=== PATIENT | female | born 1965 | race Caucasian/White ===

== ENCOUNTER 2016-12-13 13:26 | Emergency (ER) | payer MEDICARE, OTHER ==
[~2016-12-13] VITALS: Ht 167.6 cm; Wt 108.9 kg
[~2016-12-13 13:26] MED LIST: ADVIL PM CAPLE1 EACH PO; ALBUTEROL SULF8.5 GM INH; ALBUTEROL2.5 MG/3 M INH; ATIVAN1 MG PO; AZITHROMYCIN250 MG PO; BACTRIM DS TAB1 EACH PO; CLINDAMYCIN HC150 MG PO; COZAAR50 MG PO; CYMBALTA30 MG; CYMBALTA30 MG PO; CYMBALTA60 MG PO; DOXYCYCLINE HY100 MG PO; DULOXETINE HCL30 MG; GABAPENTIN300 MG PO; GUAIFENESIN-CO118 ML PO; HUMALOG100 UNIT/1 SUB-Q; HUMALOG100 UNITS/; HUMALOG100 UNITS/ SUB-Q; HUMULIN N100 UNIT/1 SQ; HYDROCODON-ACE1 EAC3 PO; IBUPROFEN600 MG PO; IPRATROPIU0.2 MG/1 M IH; LANTUS SOL100 UNIT/1 SUB-Q; LANTUS100 UNITS/ SUB-Q; LEVAQUIN750 MG PO; LEVOFLOXACIN750 MG; LORAZEPAM1 MG PO; MONTELUKAST SOD10 MG PO; MORPHINE SULFAT30 M2; MORPHINE SULFAT30 M2 PO; NORCO 5-325 TA1 EACH PO; OMEPRAZOLE40 MG PO; OXYCODONE HCL5 MG PO; PREDNISONE20 MG PO; PROAIR HFA8.5 GM INH; PROMETHAZINE HC25 M1 PO; PROVENTIL HFA6.7 GM INH; QVAR7.3 G1 INH; TESSALON PERLE100 MG PO; TIZANIDINE HCL2 M1 PO; TRAMADOL HCL50 MG; TRAMADOL HCL50 MG PO; ZOFRAN ODT4 MG SL; [UNRECOGNIZED DRUG - OTHER]
[2016-12-13] MEDS ORDERED: ATIVAN0.5 MG PO (13:38)
--- NOTE | 2016-12-13 17:19 | EKG ---
[facility] [address] [facility] [place], [place] [address] Signed Normal sinus rhythm Normal ECG When compared with ECG of 03-JAN-2016 17:15, No significant change was found Confirmed by DANIEL HILL MD ([id number]) on 12/13/2016 5:19:09 PM Electronically Signed By: DANIEL HILL MD 12/13/16 1719 PATIENT NAME: FEDERICO SALMON Electrocardiogram DATE OF : 63 PHYSICIAN: ADNIEL HILL MD REPORT #: [id number] REPORT IS CONFIDENTIAL AND NOT TO BE RELEASED WITHOUT AUTHORIZATION
[2017-03-15] MEDS ORDERED: NORCO 5-325 TA1 EACH PO (21:33)
== END 2016-12-13 17:45 | disposition home or self-care (01) ==
LOC: ED 13:26
PROC: 0T9B70Z Drainage of Bladder with Drainage Device, Via Natural or Artificial Opening (ICD-10-PCS; principal; 2016-12-13)
DX: E11.9 Type 2 diabetes mellitus without complications (principal); J45.909 Unspecified asthma, uncomplicated; Z87.01 Personal history of pneumonia (recurrent); Z90.49 Acquired absence of other specified parts of digestive tract; Z90.89 Acquired absence of other organs; Z90.710 Acquired absence of both cervix and uterus; Z79.899 Other long term (current) drug therapy; Z79.4 Long term (current) use of insulin
CPT/HCPCS: 36600; 51701; 80053; 81001; 82010; 82803; 84484; 85025; 93005; 93010; 96365; 96366; 96375; 99283; J7030

== ENCOUNTER 2017-01-13 06:50 | Day surgery (SDC) | payer MEDICARE, OTHER ==
[~2017-01-13] VITALS: Ht 167.6 cm; Wt 133.8 kg
[~2017-01-13 06:50] MED LIST changes: +ATIVAN0.5 MG PO
[2017-01-13] MEDS ORDERED: HYDROCODON-ACE1 EA11 PO (09:29)
--- NOTE | 2017-01-13 09:42 | NUR ---
01/13/17 0942 Edison Carr SAT 100, O2 DECREASED TO 6L VIA MASK.
--- NOTE | 2017-01-13 12:24 | NUR ---
LE 1018 RETURNED FROM PACU C/O L HAND PAIN 12/15. HAND ELEVATED ON PILLOW AND ICE TO HAND. VITAL SIGNS TAKEN. EATING CRACKERS. 1043 TWO NORCO 7.5/325 GIVEN FOR L HAND PAIN. 1052 C/O ITCHING ALL OVER. NEW ORDERS RECEIVED. BENADRYL 50MG PO GIVEN. 1130 UP TO BATHROOM. VOIDED. C/O L HAND PAIN 12/15. WANTING IV PAIN MEDICINE. SPOKE WITH DR AND NO NEW ORDERS. REFERRED PT TO ANESTHESIA. SPOKE WITH ANESTHESIA AND NO NEW ORDERS. SPOKE WITH PT ABOUT NO IV MEDICATIONS. PT WANTS TO GO HOME. 1205 DC INSTRUCTIONS GIVE TO PT/DAUGHTER. LEFT VIA W/C.
--- NOTE | 2017-01-15 10:52 | OR ---
[facility] [address] [place], [place] [address] Signed DATE OF PROCEDURE: 01/13/17 PREOPERATIVE DIAGNOSIS: Left ring and small trigger finger. POSTOPERATIVE DIAGNOSIS: Left ring and small trigger finger. PROCEDURE PERFORMED: Left ring and small trigger finger release. ANESTHESIA: Ruby block. SURGEON: Gabriella Echavarria MD. HOSPITAL PHARMACIST: Joseline Rizvi PA-C. Joseline was present and critical in positioning, retraction, and wound closure. TOURNIQUET TIME: 20 minutes. BRIEF HISTORY Georgiana is a 51-year-old female with significant respiratory and seizure issues. She has had previous trigger finger releases with good results. Developed locked fingers of the ring and small of the left hand, wished to proceed with operative intervention. Risks, benefits, and alternatives were discussed, and she elected to proceed. Once consent was obtained, she was taken to operating room. After adequate anesthesia, she was placed on operating table. All downside pressure points well padded. The left arm was prepped and draped in a standard sterile fashion. The ring finger was approached 1st through 1 cm incision. This was carried through skin and subcutaneous tissue. The fat and subcutaneous tissue was dissected off the flexor tendon sheath and A1 lisset was identified under loupe magnification. The A1 lisset was released and the finger was removed with no locking or triggering. The 2nd incision made overlying the ring flexor tendon carried through skin and subcutaneous tissue. Again, the flexor tendon sheath was identified and dissected free of overlying soft tissue and the A1 ilsset was released. The patient was too sleepy to ask her to move her fingers. We did move them ourselves and she had good movement of the tendon. Both wounds copiously irrigated with antibiotic solution, closed with 3-0 nylon. Dressed with Bacitracin, Adaptic 4 x 8 gauze. He has tolerated the procedure well. All sponge, needle, and instrument counts were correct. Gabriella Echavarria MD Electronically Signed By: GABRIELLA ECHAVARRIA MD 01/15/17 1052 PATIENT NAME: FEDERICO SALMON OPERATIVE REPORT DATE OF : 63 PHYSICIAN: GABRIELLA ECHAVARRIA MD REPORT #: [id number] REPORT IS CONFIDENTIAL AND NOT TO BE RELEASED WITHOUT AUTHORIZATION [address] [place], [place] [address] Signed GEORGINA/Bert /[id number] cc: Erlinda Oneal PA-C Electronically Signed By: GABRIELLA ECHAVARRIA MD 01/15/17 1052 PATIENT NAME: FEDERICO SALMON OPERATIVE REPORT DATE OF : 63 PHYSICIAN: GABRIELLA ECHAVARRIA MD REPORT #: [id number] REPORT IS CONFIDENTIAL AND NOT TO BE RELEASED WITHOUT AUTHORIZATION
[2017-03-15] MEDS ORDERED: NORCO 5-325 TA1 EACH PO (21:33)
== END 2017-01-13 12:05 | disposition home or self-care (01) ==
LOC: OPS 06:50 → DS 06:50 → OPS 08:45
PROVIDERS: Specialist
PROC: 0LN80ZZ Release Left Hand Tendon, Open Approach (ICD-10-PCS; 2017-01-13)
PROC: 0LN80ZZ Release Left Hand Tendon, Open Approach (ICD-10-PCS; principal; 2017-01-13 08:45)
DX: M65.342 Trigger finger, left ring finger (principal); M65.352 Trigger finger, left little finger; I10 Essential (primary) hypertension; G40.909 Epilepsy, unspecified, not intractable, without status epilepticus; J45.909 Unspecified asthma, uncomplicated; G43.909 Migraine, unspecified, not intractable, without status migrainosus; E11.9 Type 2 diabetes mellitus without complications; M79.7 Fibromyalgia; Z86.718 Personal history of other venous thrombosis and embolism; Z98.890 Other specified postprocedural states; Z79.899 Other long term (current) drug therapy
CPT/HCPCS: 01810; J0690; J1170; J1885; J2250; J2405; J2704; J3010; J7120

== ENCOUNTER → 2017-03-15 | Emergency (ER) | payer MEDICARE, OTHER ==
[~2017-03-15] VITALS: Ht 167.6 cm; Wt 133.8 kg
[~2017-03-15] MED LIST changes: +HYDROCODON-ACE1 EA11 PO
--- NOTE | 2017-03-16 19:03 | EKG ---
[facility] [address] [facility] [place], [place] [address] Signed Normal sinus rhythm Normal ECG When compared with ECG of 13-DEC-2016 13:32, No significant change was found Confirmed by CASSIDY MCGHEE MD ([id number]) on 03/16/2017 7:03:33 PM Electronically Signed By: CASSIDY MCGHEE MD 03/16/17 1903 PATIENT NAME: FEDERICO SALMON Electrocardiogram DATE OF : 63 PHYSICIAN: CASSIDY MCGHEE MD REPORT #: [id number] REPORT IS CONFIDENTIAL AND NOT TO BE RELEASED WITHOUT AUTHORIZATION
== END ==
LOC: ED 19:25
DX: R07.9 Chest pain, unspecified (principal); E11.9 Type 2 diabetes mellitus without complications; Z87.01 Personal history of pneumonia (recurrent); Z90.49 Acquired absence of other specified parts of digestive tract; Z90.710 Acquired absence of both cervix and uterus; Z79.899 Other long term (current) drug therapy; Z79.4 Long term (current) use of insulin
CPT/HCPCS: 36415; 71020; 80053; 84484; 85025; 93005; 93010; 96374; 96375; 99284; J2270; J2405

== ENCOUNTER → 2017-05-01 | Emergency (ER) | payer MEDICARE, OTHER ==
[~2017-05-01] VITALS: Ht 167.6 cm; Wt 127.0 kg
[~2017-05-01] MED LIST changes: +BREO ELLIPTA I1 EACH INH; +GLIPIZIDE5 MG PO; +HYDROXYZINE PAM25 MG PO; +K-TAB ER20 MEQ PO; +LISINOPRIL10 MG PO; +METHYLPREDNISOLO4 M1 PO; +NORVASC5 MG PO; +OMEPRAZOLE20 MG PO; -OMEPRAZOLE40 MG PO; +SINGULAIR10 MG; +SINGULAIR10 MG PO; -TIZANIDINE HCL2 M1 PO; +TOPAMAX25 MG PO; +TOPIRAMATE25 MG PO; +ZANAFLEX4 MG PO; +ZITHROMAX250 MG PO
--- OUTSIDE RECORDS SUMMARY | 2017-05-01 19:04 | XMS | Clinical Summary ---
Demographics + + + | Address | [address] | | | [place] [address] | + + + | Home Phone | | + + + | Preferred Language | Unknown | + + + | Marital Status | Unknown | + + + | Congregational Affiliation | Unknown | + + + | Race | Unknown | + + + | Ethnic Group | Unknown | + + + Author + + + | Author | [facility] | + + + | Organization | [facility] | + + + | Address | Unknown | + + + | Phone | Unavailable | + + + Care Team Providers + +------+ + | Care Nuclear Physician Name | Role | Phone | + +------+ + PP | Unavailable | + +------+ + Source Comments FAB is fully live on both [facility] and [facility] In[facility] & [facility] Allergies Not on File Current Medications Not on file Active Problems Not on file Social History + +-------+ +--------+------+ | Tobacco Use | Types | Packs/Day | Years | Date | | | | | Used | | + +-------+ +--------+------+ | Never Assessed | | | | | + +-------+ +--------+------+ + + + | Sex Assigned at | Date Recorded | | | | + + + | Not on file | | + + + Plan of Treatment + + + + + | Health Maintenance | Due Date | Last Done | Comments | + + + + + | INFLUENZA VACCINE | | | | | (FLU SHOT) | 7 | | | + + + + + Results Not on filefrom Last 3 Months"
--- OUTSIDE RECORDS SUMMARY | 2017-05-01 19:04 | XMS | Clinical Summary ---
Demographics + + + | Address | [address] | | | [place] [address] | + + + | Home Phone | | + + + | Preferred Language | Unknown | + + + | Marital Status | Unknown | + + + | Advent Affiliation | Unknown | + + + | Race | Unknown | + + + | Ethnic Group | Unknown | + + + Author + + + | Author | [facility] | + + + | Organization | [facility] | + + + | Address | Unknown | + + + | Phone | Unavailable | + + + Care Team Providers + +------+ + | Care Claim Clerk Name | Role | Phone | + +------+ + PP | Unavailable | + +------+ + Source Comments FAB is fully live on both [facility] and [facility] In[facility] & [facility] Allergies Not on File Current Medications Not [...]
== END ==
LOC: ED 17:58
DX: G43.909 Migraine, unspecified, not intractable, without status migrainosus (principal); M79.605 Pain in left leg; E11.9 Type 2 diabetes mellitus without complications; I10 Essential (primary) hypertension; J45.909 Unspecified asthma, uncomplicated; Z87.01 Personal history of pneumonia (recurrent); Z90.49 Acquired absence of other specified parts of digestive tract; Z90.89 Acquired absence of other organs; Z90.710 Acquired absence of both cervix and uterus; Z98.890 Other specified postprocedural states; Z79.4 Long term (current) use of insulin; Z79.899 Other long term (current) drug therapy
CPT/HCPCS: 93971; 96361; 96374; 96375; 99284; J1200; J1885; J2270; J2765; J7030

== ENCOUNTER 2017-05-28 15:55 | Emergency (ER) | payer MEDICARE, OTHER ==
[~2017-05-28] VITALS: Ht 167.6 cm; Wt 124.8 kg
[~2017-05-28 15:55] MED LIST changes: -BREO ELLIPTA I1 EACH INH; -HYDROXYZINE PAM25 MG PO; -K-TAB ER20 MEQ PO; -METHYLPREDNISOLO4 M1 PO; -NORVASC5 MG PO; -SINGULAIR10 MG; -SINGULAIR10 MG PO; -TOPAMAX25 MG PO; -ZITHROMAX250 MG PO
--- OUTSIDE RECORDS SUMMARY | 2017-05-28 16:08 | XMS | Clinical Summary ---
Demographics + + + | Address | [address] | | | [place] [address] | + + + | Home Phone | | + + + | Preferred Language | Unknown | + + + | Marital Status | Unknown | + + + | Tenriism Affiliation | Unknown | + + + | Race | Unknown | + + + | Ethnic Group | Unknown | + + + Author + + + | Author | [facility] | + + + | Organization | [facility] | + + + | Address | Unknown | + + + | Phone | Unavailable | + + + Care Team Providers + +------+ + | Care Nurse Wound Name | Role | Phone | + +------+ + PP | Unavailable | + +------+ + Source Comments FAB is fully live on both [facility] and [facility] InPatient.[facility] Allergies Not on File Current Medications Not [...]
--- OUTSIDE RECORDS SUMMARY | 2017-05-28 16:08 | XMS | Clinical Summary ---
Demographics + + + | Address | [address] | | | [place] [address] | + + + | Home Phone | | + + + | Preferred Language | Unknown | + + + | Marital Status | Unknown | + + + | Holiness Affiliation | Unknown | + + + | Race | Unknown | + + + | Ethnic Group | Unknown | + + + Author + + + | Author | [facility] | + + + | Organization | [facility] | + + + | Address | Unknown | + + + | Phone | Unavailable | + + + Care Team Providers + +------+ + | Care Dedicated Driver Name | Role | Phone | + +------+ + PP | Unavailable | + +------+ + Source Comments FAB is fully live on both [facility] and [facility] InPatient.[facility] & [facility] Allergies Not on File Current Medications [...]
[2017-05-28] MEDS ORDERED: ZITHROMAX250 MG PO (16:57)
== END 2017-05-28 17:08 | disposition home or self-care (01) ==
LOC: ED 15:55
DX: J40 Bronchitis, not specified as acute or chronic (principal); E11.9 Type 2 diabetes mellitus without complications; Z87.01 Personal history of pneumonia (recurrent); J45.909 Unspecified asthma, uncomplicated; Z79.899 Other long term (current) drug therapy; Z79.4 Long term (current) use of insulin
CPT/HCPCS: 99283

== ENCOUNTER 2017-06-30 14:35 | Emergency (ER) | payer MEDICARE, OTHER ==
[~2017-06-30] VITALS: Ht 167.6 cm; Wt 137.4 kg
[~2017-06-30 14:35] MED LIST changes: +ZITHROMAX250 MG PO
--- OUTSIDE RECORDS SUMMARY | 2017-06-30 14:51 | XMS | Clinical Summary ---
Demographics + + + | Address | [address] | | | [place] [address] | + + + | Home Phone | | + + + | Preferred Language | Unknown | + + + | Marital Status | Unknown | + + + | Anabaptism Affiliation | Unknown | + + + | Race | Unknown | + + + | Ethnic Group | Unknown | + + + Author + + + | Author | [facility] | + + + | Organization | [facility] | + + + | Address | Unknown | + + + | Phone | Unavailable | + + + Care Team Providers + +------+ + | Care Spot Man Name | Role | Phone | + +------+ + PP | Unavailable | + +------+ + Source Comments FAB is fully live on both [facility] and [facility] InPatient.[facility] & [facility] Allergies Not on File Current Medications Not [...]
--- OUTSIDE RECORDS SUMMARY | 2017-06-30 14:51 | XMS | Clinical Summary ---
Demographics + + + | Address | [address] | | | [place] [address] | + + + | Home Phone | | + + + | Preferred Language | Unknown | + + + | Marital Status | Unknown | + + + | Oriental Orthodox Affiliation | Unknown | + + + | Race | Unknown | + + + | Ethnic Group | Unknown | + + + Author + + + | Author | [facility] | + + + | Organization | [facility] | + + + | Address | Unknown | + + + | Phone | Unavailable | + + + Care Team Providers + +------+ + | Care Day Care Attendant Name | Role | Phone | + +------+ + PP | Unavailable | + +------+ + Source Comments FAB is fully live on both [facility] and [facility] & [facility] Allergies Not on File Current [...]
[2017-06-30] MEDS ORDERED: METHYLPREDNISOLO4 M1 PO (15:08)
== END 2017-06-30 15:12 | disposition home or self-care (01) ==
LOC: ED 14:35
DX: J44.1 Chronic obstructive pulmonary disease with (acute) exacerbation (principal); E11.9 Type 2 diabetes mellitus without complications; Z87.01 Personal history of pneumonia (recurrent); J45.909 Unspecified asthma, uncomplicated; Z79.2 Long term (current) use of antibiotics; Z79.899 Other long term (current) drug therapy; Z79.4 Long term (current) use of insulin
CPT/HCPCS: 99283

== ENCOUNTER 2017-07-01 12:06 | Inpatient (IN) | payer MEDICARE, OTHER ==
[~2017-07-01] VITALS: Ht 167.6 cm; Wt 140.5 kg
--- OUTSIDE RECORDS SUMMARY | ~2017-07-01 | XMS | Clinical Summary ---
Demographics + + + | Address | [address] | | | [place] [address] | + + + | Home Phone | | + + + | Preferred Language | Unknown | + + + | Marital Status | Unknown | + + + | Protestant Affiliation | Unknown | + + + | Race | Unknown | + + + | Ethnic Group | Unknown | + + + Author + + + | Author | [facility] | + + + | Organization | [facility] | + + + | Address | Unknown | + + + | Phone | Unavailable | + + + Care Team Providers + +------+ + | Care Tare Worker Name | Role | Phone | + +------+ + PP | Unavailable | + +------+ + Source Comments FAB is fully live on both [facility] and [facility] InPatient.[facility] & [facility] Allergies Not on File Current Medications [...]
[~2017-07-01 12:06] MED LIST changes: +METHYLPREDNISOLO4 M1 PO
--- OUTSIDE RECORDS SUMMARY | 2017-07-01 13:52 | XMS | Clinical Summary ---
Demographics + + + | Address | [address] | | | [place] [address] | + + + | Home Phone | | + + + | Preferred Language | Unknown | + + + | Marital Status | Unknown | + + + | Quaker Affiliation | Unknown | + + + | Race | Unknown | + + + | Ethnic Group | Unknown | + + + Author + + + | Author | [facility] | + + + | Organization | [facility] | + + + | Address | Unknown | + + + | Phone | Unavailable | + + + Care Team Providers + +------+ + | Care Continuity Clerk Name | Role | Phone | + +------+ + PP | Unavailable | + +------+ + Source Comments FAB is fully live on both [facility] and [facility] InPatient.[facility] & [facility] Allergies Not on File Current Medications Not [...]
--- OUTSIDE RECORDS SUMMARY | 2017-07-01 13:52 | XMS | Clinical Summary ---
Demographics + + + | Address | [address] | | | [place] [address] | + + + | Home Phone | | + + + | Preferred Language | Unknown | + + + | Marital Status | Unknown | + + + | Latter Day Affiliation | Unknown | + + + | Race | Unknown | + + + | Ethnic Group | Unknown | + + + Author + + + | Author | [facility] | + + + | Organization | [facility] | + + + | Address | Unknown | + + + | Phone | Unavailable | + + + Care Team Providers + +------+ + | Care Travel Clerk Name | Role | Phone | + +------+ + PP | Unavailable | + +------+ + Source Comments FAB is fully live on both [facility] and [facility] InPatient.[facility] & [facility] Allergies Not on File Current [...]
--- NOTE | 2017-07-01 19:20 | NUR ---
PATIENT ARRIVED AFTER ER REPORT AT 1540. PATIENT GOT 2 LITERS OF SALINE A MG++ RIDER, IV VANCOMYCIN, AND ANOTHER MG++ RIDE JUST STARTED. 18G IV IN THE RAC FLOWING WELL. PATIENT IS STILL ON 4L/NC AND SATING WELL. EXP. WHEEZES THROUGHOUT. PATIENT ORDERED A GOOD SIZED DINNER AND HAS BEEN PUTING OUT OVER 100MLS AN HOUR OF URINE FOM HE PEREZ SINCE IT WAS INSERTED AT 1600. REPORT GIVEN TO DRILL PUNCH OPERATOR.
--- NOTE | 2017-07-01 20:15 | NUR ---
PT IS RESTFUL, OVERALL FEELING BETTER BUT STILL NOT FEELING WELL. CONT TO HAVE JOE. GIVEN COOL CLOTH FOR HEAD. ALSO GIVEN ICE CHIPS. DAUGHTER IN ROOM.
--- NOTE | 2017-07-01 21:43 | NUR ---
UPDATE GIVEN TO DR MCGHEE AT 0. IV FLUID DEC TO 100ML/HR. PT RESTING WITH HER OWN CPAP IN PLACE. TYLENOL GIVEN FOR JOE.
--- NOTE | 2017-07-01 22:25 | NUR ---
CURRENTLY ON PHONE, NO OTHER CHANGES.
--- NOTE | 2017-07-01 23:00 | NUR ---
PT CALLED NURSE IN, STATES UNABLE TO SLEEP DUE TO JOE. DR MCGHEE MADE AWARE AND ORDER RECEIVED. PT GIVEN 15MG TORRADOL IV. GOWN CHANGED PER REQUEST MILDLY DIAPHORETIC.
--- NOTE | 2017-07-01 23:58 | NUR ---
STATES STILL HAS JOE BUT BACK PAIN IS BETTER. RT IN TO GIVE NEB.
--- NOTE | 2017-07-02 03:08 | NUR ---
AWAKE, PT FEELS LIKE SHE HAS WHEEZES SO IS USING HER CORONET ON HER OWN. BREATH TONE SL COURSE. FEELING BETTER.
--- NOTE | 2017-07-02 04:26 | NUR ---
RESTING, NO CHANGE.
--- NOTE | 2017-07-02 07:00 | NUR ---
TO XRAY PER WC, ROLAND WELL. REPORT TO DAY SHIFT.
--- NOTE | 2017-07-02 07:57 | NUR ---
Back from 2 view chest xray. States doesn't feel any better today from yesterday. RT here doing breathing nebulizer treatment. Family in room. Patient interactive and alert and oriented. Report recieved from assistant shift supervisor RN.
--- NOTE | 2017-07-02 08:20 | NUR ---
STATES WOULD LIKE TO BE A FULL CODE BUT NOT KEPT ALIVE INDEFINETLY ON MACHINES.
--- NOTE | 2017-07-02 10:00 | NUR ---
Dr Chavez in to see patient. Updates given to .
--- NOTE | 2017-07-02 11:52 | NUR ---
PT ARRIVED TO FLOOR FROM CCU. ORIENTED TO ROOM AND CALL LIGHT. DISCUSSED CALLING IF NEEDS TO GET UP. PT VERBALIZED UNDERSTANDING. CALL LIGHT WITHIN REACH.
--- NOTE | 2017-07-02 12:31 | NUR ---
PT RESTING IN BED EATING LUNCH. DAUGHTER IN ROOM. CALL LIGHT WTIHIN REACH.
--- NOTE | 2017-07-02 12:51 | NUR ---
RT IN ROOM WITH PATIENT. PATIENT UNDERGOING NEB TREATMENT, NO OTHER NEEDS AT THIS TIME.
--- NOTE | 2017-07-02 14:08 | NUR ---
PT COMPLAINED OF BACK PAIN. GAVE 15MG TORDAL IV.
--- NOTE | 2017-07-02 14:36 | NUR ---
PATIENT IN BED ON THE PHONE. THIS SMALL ENGINE MECHANIC OFFERED TO GET PATIENT SET UP WITH SHOWER. PATIENT STATED HER DAUGHTER (GAS METER PROVER) LEFT AND SHE WANTS TO WAIT FOR HER DAUGHTER BEFORE GETTING IN THE SHOWER. THIS SMALL ENGINE MECHANIC SET UP THE SHOWER FOR WHEN THE PATIENT IS READY. THIS SMALL ENGINE MECHANIC TRIED TALKING TO PATIENT ABOUT GETTING VITALS BUT PATIENT WAS BUSY ON THE PHONE AND DID NOT ACKNOWLEDGE SMALL ENGINE MECHANIC. CALL LIGHT IN REACH. FRESH ICE WATER ON BEDSIDE TABLE. NO OTHER NEEDS AT THIS TIME.
[2017-07-02] MEDS ORDERED: CYMBALTA60 MG PO (15:11)
--- NOTE | 2017-07-02 15:21 | NUR ---
THIS IP LITIGATION PARALEGAL AND PATIENTS CAREGIVER ASSISTED PATIENT UP TO SHOWER IN SHOWER CHAIR. CAREGIVER AND PATIENT PERFORMED SHOWER ON PATIENT. PATIENT COMBED HAIR, CHANGED GOWN. PATIENT SITTING UP IN BED AND TALKING WITH KIRSTEN AND CAREGIVER. PATIENT STATES SHE WILL PERFORM ORAL CARE LATER. FRESH ICE WATER ON BEDSIDE. CALL LIGHT IN REACH. NO OTHER NEEDS AT THIS TIME.
[2017-07-02] MEDS ORDERED: TOPAMAX25 MG PO (15:23)
[2017-07-02] MEDS ORDERED: SINGULAIR10 MG PO (15:25)
[2017-07-02] MEDS ORDERED: SINGULAIR10 MG (15:25)
[2017-07-02] MEDS ORDERED: BREO ELLIPTA I1 EACH INH (16:58)
--- NOTE | 2017-07-02 16:59 | NUR ---
RT in room with pt.
--- NOTE | 2017-07-02 16:59 | NUR ---
Medications reconciled using [facility] records & patient interview. A few discrepancies were discovered, please see updated med rec
--- NOTE | 2017-07-02 17:21 | NUR ---
pt complained of left sided chest pain. pt stated "it hurts when you touch it." vital signs taken BP: 129/74 P: 84. md notified. suggested given tylenol. pt refused tylenol at this time.
--- NOTE | 2017-07-02 18:35 | NUR ---
pt has yet to void since azevedo removal. bladder scanned pt for 300ml.
--- NOTE | 2017-07-02 18:40 | NUR ---
PATIENT RESTING IN BED. PATIENT STATED HER THROAT WAS SORE. RN NOTIFIED. FRESH ICE WATER BY BEDSIDE. CALL LIGHT IN REACH. NO OTHER NEEDS AT THIS TIME.
--- NOTE | 2017-07-02 18:51 | NUR ---
notified md that pt has yet to void since azevedo removal. wanting to give pt more time to void.
--- NOTE | 2017-07-02 19:47 | NUR ---
RECEIVED REPORT FROM DAY SHIFT RN. PT IS ON DROPLET PRECAUTIONS. PT IS ON 3L NC. PT IS DUE TO VOID, UP TO BATHROOM TO TRY. CALL LIGHT WITHIN REACH.
--- NOTE | 2017-07-02 22:30 | NUR ---
ASSESSMENT COMPLETE. PT IS IN BED WITH HOB ELEVATED. 3L O2 VIA NC IN PLACE. REPORTS DIABETIC NEUROPATHY IN BILAT LE. ALL 4 PULSES +2. REPORTS PAIN IN HEAD AT 8/10 AND BODY PAIN 9/10. MEDICATION GIVEN. FOR PAIN AND NERVE PAIN. LUNGS AND DIM THROUGHOUT WITH EXW BILAT. HEART RATE IS 100 AND REGULAR. PT HAS A NONPRODUCTIVE COUGH WITH NO SPUTUM EXPELLED SINCE THIS MORNING. PT REPORTS A NEW LIGHTLY REDDENED ARE ON PART OF CHEST AND LEFT ARM. SKIN APPEARS FLUSHED. PT IS AFEBRILE. BLOOD SUGAR WAS 207. PT REPORTS THIS IS A "REALLY GOOD BLOOD SUGAR NUMBER". CALL LIGHT WITHIN REACH. NO OTHER NEEDS AT THIS TIME
--- NOTE | 2017-07-02 22:43 | NUR ---
HELPED PT TO THE BATHROOM AND BACK TO BED. GOT PT A WARM BLANKET PER HER REQUEST. BEDSIDE TABLE AND CALL LIGHT WITHIN REACH. PT NEEDS NOTHING ELSE AT THIS TIME.
--- NOTE | 2017-07-03 01:06 | NUR ---
PT REPORTED PAIN 10/10 IN HEAD. PT HAD INCREASED RR. REPORTED FEELING NAUSEOUS DUE TO THE PAIN. PT REPORTED FEELING THE CHILLS. V/S TAKEN. B/P WAS 179/79,HR 104, TEMP WAS 99.5. DID INCENTIVE SPEROMETER. TORODOL AND ZOFRAN GIVEN FOR PAIN AND NAUSEA. NEW TEMP 98.7. PT OOB TO BATHROOM. REPORTED FEELING SLIGHTLY DIZZY. PT BACK TO BED. COARSE COUGH. CALL LIGHT WITHIN REACH. REFRESHED ICE WATER.
--- NOTE | 2017-07-03 02:00 | NUR ---
PT REPORTS VICENTE NHAS DECREASED TO 10/14. TEMP HAS INCREASED TO 100.0. 500MG TYLENOL GIVEN. CALL LIGHT WITHIN REACH. REFRESHED ICE WATER.
--- NOTE | 2017-07-03 02:43 | NUR ---
PT TEMP DECREASED TO 99.4. OOB TO BATHROOM. PT REQUESTED ICE PACK FOR HEAD. WORKING ON ACCAPELLA AND INCENTIVE SPIROMETER. CALL LIGHT WITHIN REACH. ICE WATER REFRESHED.
--- NOTE | 2017-07-03 06:05 | NUR ---
PT SLEPT ON AND OFF. BS WAS 207 AT HS. VANCO GIVEN @ 0400. PT REPORTED PAIN 01/14 LAST NIGHT IN THE HEAD AND BODY WITH NAUSEA. TORODOL AND ZOFRAN GIVEN AT 0100. AROUND 0200 TEMP ON 100.0 IS USED AND TYLENOL GIVEN AT 0200. LAST TEMP 99.1. DROPLET PRECAUTIONS. TAMIFLU . ADA DIET. SBA WITH FWW. PT. AM LABS. 3L O2 NC.
--- NOTE | 2017-07-03 08:32 | NUR ---
PATIENT SITTING UP IN CHAIR. DAUGHTER AND HERIBERTO SANTOS IN ROOM.
--- NOTE | 2017-07-03 10:36 | NUR ---
VITALS AND I/OS DONE BY HERIBERTO SANTOS. FRESH ICE WATER AND TEA GIVEN. PATIENT RESTING IN BED, EYES CLOSED.
--- NOTE | 2017-07-03 10:52 | NUR ---
CALL TO DR. MCGHEE, REPORTED I&OS AND VS FOR Q4 VS AND PATIENT COMPLAINTS OF FEELING LIGHT HEADED AT BEDSIDE. URINE CONCENTRATED AND DARK. NEW ORDER FOR 1L LR BOLUS TO RUN OVER 1HR.
--- NOTE | 2017-07-03 14:02 | NUR ---
PATIENT SITTING UP IN RECLINER, STATES " I AM FEELING MUCH BETTER " MAINTENANCE IV FLUIDS INFUSING. PATIENT APPEARS MORE ALERT. DID NOT EAT 50% OF MEAL DID NOT PROVIDE THE 10 UNITS OF INSULIN WITH MEAL, HOWEVER 5 UNITS SLIDING SCALE. STATES " THE NAPROXEN HELPED ME, MY DISCOMFORT IS BETTER". PYSICALY THERAPY IN ROOM, PATIENT PERFORMING INSTRUCTED EXERCISES.
--- NOTE | 2017-07-03 14:50 | NUR ---
PATIENT LYING IN BED WATCHING TV. VITALS AND I/OS DONE. PATIENT HAS LOW TEMP, ASKED FOR AN ICE PACK TO COOL DOWN. FRESH ICE WATER GOVEN. PATIENT HASNT HAD MUCH OF AN APPETITE, BUT ORDERED A GRILLED CHEESE SANDWICH TO TRY AND EAT. CALL LIGHT IN REACH.
--- NOTE | 2017-07-03 14:59 | NUR ---
STANDBY ASSIST TO BR. PATIENT WILL CALL WHEN READY
--- NOTE | 2017-07-03 18:47 | NUR ---
PATIENT URINE CONCENTRATED START OF SHIFT AND PATIENT COMPLAINTS OF DIZZINESS WHEN GETTTING UP. NEW ORERS FOR IV BOLUS AND FLUIDS TO ADMINISTER @125 ML/HR. PATIENT WOULD HAVE LOW GRADE FEVER THAT WOULD DECREASE WITH COUGH AND DEEP BREATHING. THIS EVENING PATIENT URINE DILUTE AND LARGE QUANTITY. DISCUSSED WITH DR. MCGHEE WHO REPORTED TO CONTINUE IV FLUIDS WHILE PATIENT HAS POOR ORAL INTAKE AND NOT EATING WELL. PATIENTS BLOOD SUGARS CONTROLLED WITH SLIDING SCALE, DID NOT ADMINISTER THE 10 UNITS WITH EATING SECONDARY TO PATIENT NOT EATING MORE THEN HALF OF MEAL. VS STABLE. UP AND DOWN FROM BED TO RECLINER AND INTO BATHROOM. SATURATION 95% ON 3L NC.
--- NOTE | 2017-07-03 19:05 | NUR ---
SHIFT REPORT RECEIVED. PATIENT IS RESTING IN BED. SHE REPORTS SOME MILD NAUSEA. DAYSMERCEDES RN ADMINISTERED PRN ZOFRAN. PATIENT REQUEST ASSISTANCE VOIDING, ENRRIQUE JULY ASSISTED PATIENT.
--- NOTE | 2017-07-03 20:30 | NUR ---
evening meds given per order. patient resting in bed. main concern is a headache, 9/. she reports having this headache consistently throughout the day. scheduled naproxen was given. patient is currently on 3L NC and tolerating that well. She reports wearing 4L NC at home. Lung sounds are expirtory wheezes throughout and coarse lung sounds in the bilateral bases. RT in room for neb and respirtory education. Patient's CPAP set up at bedside for her to put on when she is ready for sleep. Abd is sound, soft, and nontender. bowel sounds are active. patinent is having some abd cramping. She denies toileting needs at this time. call light in reach.
--- NOTE | 2017-07-03 21:10 | NUR ---
Rounding charge nurse note:. Continues on droplet isolation. O2 @3L NC, IVF infusing w/o problems, cont pulse ox in place. No other requests.
--- NOTE | 2017-07-03 21:40 | NUR ---
SPOKE TO PATIENT'S DAUGHTER ON THE PHONE. PROVIDED AN UPDATE ON HER MOTHER'S CURRENT CONDITION AND ANSWERED ALL OF HER QUESTIONS.
--- NOTE | 2017-07-03 23:25 | NUR ---
PATIENT WAS SLEEPING IN BED WITHOUT O2 OR CPAP IN PLACE. O2 SAT 92%. WOKE PATIENT UP TO REQUEST SHE PUT HER CPAP ON. ASSISTED PATIENT WITH CPAP W/3L O2 BLEED IN. PATIENT DENIES TOILETING NEEDS AT THIS TIME. CALL LIGHT IN REACH.
--- NOTE | 2017-07-04 00:30 | NUR ---
PATIENT RESTING, EYES CLOSED. RR 20. HOB ELEVATED. O2 SAT 92%.
--- NOTE | 2017-07-04 01:31 | NUR ---
PATIENT'S IV CONTINUES TO ALARM FOR DISTAL OCCLUSION AND IS DIFFICULT TO FLUSH. WITH SOME MANIPULATION OF THE HUB POSITION IT FLUSHES EASILY. REDRESSED THE SITE AND IV NOW FLUSHES WELL. NO PAIN, REDNESS OR SWELLING. PATIENT DENIES TOLIETING NEEDS AT THIS TIME.
--- NOTE | 2017-07-04 04:45 | NUR ---
PATIENT UP TO THE BATHROOM, SBA. TOLERATED WELL ON 3L NC. PATIENT BACK TO BED, REQUEST SHAVING SUPPLIED TO TRIM HER FACE. MORNING ASSESSMENT COMPLETED. WILL RETURN WHEN SHE IS DONE WITH MORNING CARE.
--- NOTE | 2017-07-04 05:23 | NUR ---
IV VANCO STARTED. PATIENT RESTING IN BED. REPORTS GENERALIZED PAIN THROUGHOUT HER BODY. DENIES PRN TYLENOL. VS COMPLETED, WNL. PATIENT O2 SAT 97% ON 3L NC, TITRATED TO 2L. PATIENT DENIES FURTHER NEEDS AT THIS TIME. FRESH ICE WATER PROVIDED.
--- NOTE | 2017-07-04 05:33 | NUR ---
PATIENT SLEPT WELL THROGUHOUT THE NIGHT. URINE OUTPUT QS. IV FLUIDS INFUSING PER ORDER. ORAL INTAKE POOR. CPAP AT NIGHT, 3L 02 BLEED IN. TITRATED TO 2L NC WHILE IN BED AND AWAKE. SBA UP TO THE BATHROOM. REPORTS CHRONIC FIBROMYALGIA PAIN AND HEADACHE. EVENING BLOOD GLUCOSE WAS 206, 5 UNITS GIVEN. VS WNL.
--- NOTE | 2017-07-04 07:34 | NUR ---
DID PATIENT'S BLOOD SUGAR CHECK AND SHE ORDERED HER BREAKFAST. SAID SHE WILL TAKE A SHOWER WHEN YOUR DAUGHTER GETS HERE. SET HER UP FOR A SHOWER.
--- NOTE | 2017-07-04 09:02 | NUR ---
PATIENT SITTING IN CHAIR FOR ASSESSMENT. PATIENT LUNGS HAVE A LOT OF ADVENTATOUS SOUNDS. CONT TO BE ON 2 L PER NC. PATINET HAS BARKY COUGH. NON PRODUCTIVE. PATIENT STATING HER BODY ACHES FEEL BETTER TODAY. COUGH CAUSING JOE AT TIMES. PATIENT DID NOT EAT BREAKFAST WELL. BLOOD SUGAR 124. HOLDING MEAL INSULIN. GIVING LEVEMIR. PER DR. MCGHEE REQUEST. PATIENT PLANNING ON TAKING SHOWER LATER WITH DAUGHTER.
--- NOTE | 2017-07-04 09:09 | NUR ---
PATIENT SITTING UP IN CHAIR. GARBAGE EMPTIED, LINENS CHANGED. PT IN ROOM, PATIENT REPORTS SHE WOULD LIKE TO WAIT UNTIL @10/10:30, SHOULD BE UP SOON. CALL LIGHT IN REACH.
--- NOTE | 2017-07-04 09:55 | NUR ---
emily cont to sit in chair. plan to work with pt around 10ish. patient is motivated to ambulate in [place] today. vitals wnl. husnand and daughter to visit at this time.
--- NOTE | 2017-07-04 10:34 | NUR ---
emily assisted from chair to br. pt ambulating with a stby assist. tolerating movement well with some increased rr with movement. patient stating she does feel a little better today. agreed to ambulate in [place] with physical therapy. patient to wear ppe in [place]. patient continue to be on 2 l per nc.
--- NOTE | 2017-07-04 10:52 | NUR ---
patient worked with physical therapy. tolerated ambulating in [place]. assisted back to chair.
--- NOTE | 2017-07-04 11:49 | NUR ---
BLOOD SURGAR TAKEN FOR 172. PATIENT STATING AT THIS TIME SHE DOES NOT WANT ANY LUNCH. WOULD LIKE TO REST BEFORE SHE ORDERES. ASSISTED TO THE BACK TO BED FROM CHAIR. CPAP PLACED ON. PATIENT TOLERATING WELL.
--- NOTE | 2017-07-04 13:45 | NUR ---
PATIENT SITTING UP IN BED TABLE IN FRONT OF HER. HERIBERTO JOHNSON IN RM, FRESH ICE WATER, GARBAGE EMPTIED.CALL LIGHT IN REACH.
--- NOTE | 2017-07-04 13:54 | NUR ---
PT COMPLAINED OF HEADACHE 8. GAVE 500MG TYLENOL PO.
--- NOTE | 2017-07-04 14:35 | NUR ---
PATIENT SITTING UP IN BED. DAUGHTER IN ROOM. VITALS VALERIA/OS DONE. HOUSEKEEPING IN FOR GARBAGE. CALLL IGHT IN REACH
--- NOTE | 2017-07-04 15:12 | NUR ---
PT URINE OUTPUT LESS THAN 50CC. MD NOTIFIED.
--- NOTE | 2017-07-04 15:18 | NUR ---
BLADDER SCANNED FOR 103.
--- NOTE | 2017-07-04 16:45 | NUR ---
PT RESTING IN CHAIR. PT NOT HUNGRY FOR DINNER BUT AGREEABLE TO 1 CUP OF SOUP. PT STILL DUE TO VOID. WILL CONTINUE TO MONITOR.
--- NOTE | 2017-07-04 18:07 | NUR ---
PT UP IN CHAIR FOR MOST OF SHIFT. WALKED IN HALLWAY WITH PHYSICAL THERAPY. PT STANDBY ASSIST. PT REMAINS ON OXYGEN AT 2L THROUGHOUT SHIFT. SCHEDULED NEBS. BLOOD SUGARS BELOW 200 DURING SHIFT. WILL DC WHEN OKAY'D FROM PHYSICAL THERAPY.
--- NOTE | 2017-07-04 19:10 | NUR ---
SHIFT REPORT RECEIVED. PATIENT UP TO THE BATHROOM AND BACK INTO BED. SHE DENIES THE MANAGER INTENSIVE CARE UNIT OFF TO SIT UP IN THE BED. STATES SHE IS TIRED AND NEEDS REST. NO APPETITE AT THIS TIME.
--- NOTE | 2017-07-04 19:10 | NUR ---
PT UP TO BATHROOM WITH GLASS CARRIER IN ROOM TO ASSIST.
--- NOTE | 2017-07-04 20:00 | NUR ---
Charge nurse rounding note: Continues on droplet isolation. O2 in place In bed watching tv, no requests at this time.
--- NOTE | 2017-07-04 20:45 | NUR ---
PATIENT ASSESSMENT COMPLETE. PATIENT IS AAOX3, IT TAKES 2-3MINS TO ANSWER THE QUESTION FOR HER BUT IS ABLE TO ANSWER CORRECTLY. SHE REPORTS BEING FORGETFUL AT TIMES. REPORTS PAIN 8/10 IN HER HEAD AND GENERALIZED, SCHEDULED NAPROXEN GIVEN. TOLERATING 2L NC, O2 SAT 97%. LUNGS ARE COARSE THROUGHOUT, CONTINUES TO HAVE A PRODUCTIVE COUGH. ABD IS ROUND, SOFT, AND NONTENDER. BOWEL SOUNDS ACTIVE. TRACE EDEMA NOTED IN LEOLA LOWER EXTREMITIES AND PATIENT REPORTS THAT THEY FEEL "TIGHT". PATIENT'S BLOOD GLUCOSE WAS 97, NO NOVOLOG GIVEN. PROVIDED SMALL CUP OF APPLE JUICE, PATIENT REFUSED TO EAT ANYTHING. WILL CONTINUE TO MONITOR.
--- NOTE | 2017-07-04 21:00 | NUR ---
PATIENT IS FRUSTERATED WITH IV ALARMING FREQUENTLY. DISCUSSED THE DISTAL OCCULSION ISSUE WITH PATIENT FROM BENDING HER ARM. PATIENT STATES "IT'S MY RIGHT [facility], SOMETIMES I HAVE TO MOVE IT". DISCUSSED OPTIONS FOR NEW IV PLACEMENT AND PATIENT WOULD LIKE TO ATTEMPT A FOREARM IV SITE. RN LOOKED FOR AVAILABLE IV SITES AND DID NOT FIND ANY. CALLED RN RESOURCE NURSE. HE ATTEMPTED X2 WITHOUT SUCCESS. PATIENT AGREES TO KEEP USING THE AC SITE.
--- NOTE | 2017-07-04 22:00 | NUR ---
ENCOURAGED THE PATIENT TO GET UP TO THE BATHROOM. SHE WAS ABLE TO URINATE A SMALL AMOUNT. ASSITED HER BACK INTO BED. CPAP SET UP AT BEDSIDE AND ASSISTED PATIENT WITH MASK ADJUSTMENTS. PATIENT DENIED FURTHER NEEDS. CALL LIGHT IN REACH.
--- NOTE | 2017-07-05 00:51 | NUR ---
PATIENT APPEARS TO BE SLEEPING. CPAP IN USE. O2 SAT 95%.
--- NOTE | 2017-07-05 01:41 | NUR ---
PATIENT RESTING IN BED. CPAP ON. O2 SAT 96%. FRESH ICE WATER PROVIDED. PATIENT DENIES TOILETING NEEDS AT THIS TIME.
--- NOTE | 2017-07-05 05:44 | NUR ---
PATIENT SLEPT WELL THROGUHOUT THE NIGHT. CPAP AT NIGHT, 2L NC WHILE AWAKE. LUNGS ARE COARSE THROUGHOUT. BLOOD GLUCOSE 97 AT HS, NO NOVOLOG PROVIDED. IV FLUIDS INFUSING @ 125ML/HR. ORAL INTAKE HAS BEEN POOR. URINE OUTPUT REMAINS LOW. VANCO ADMINISTERED THIS MORNING. TRACE EDEMA NOTED IN LEOLA LOWER EXTREMITIES. SBA TO BATHROOM. FWW TO AMBULATE WITH PT.
--- NOTE | 2017-07-05 08:15 | NUR ---
MORNING ASSESSEMENT DUE. THIS RN TO ROOM. PT UP TO CHAIR DOING BREATHING TX WITH RT. PT COMPLAINTS OF HEADACHE (SEE MAR FOR MEDICAITON GIVEN). ASSESSMENT DONE. MORNING MEDICATIONS GIVEN. PT ORDERS BREAKFAST WITH ASSISTANCE FROM THIS RN. JUICE PROVIDED WHILE PT WAITS. IV PUMP FREQUENTLY ALLARMING. MD CONSULTED REGARDING POSSIBLE PICC OR MID LINE PLACEMENT. ORDER PLACED. PICC LINE RN CALLED. PT STATES SHE HAS NO ADDITIONAL REQUESTS OR COMPLAINTS AT THIS TIME. CALL LIGHT WITHIN REACH.
--- NOTE | 2017-07-05 09:30 | NUR ---
PT REFUSING PHYSICAL THERAPY. THIS RN TO ROOM. PT STATES SHE ISN'T FEELING WELL BUT DOES WANT TO GET UP TO RESTROOM. PT AGRESS TO WORK WITH PHYSICAL THERAPY WHILE GOING TO THE RESTROOM. PHYSICAL THERAPY ADVISED AND TO ROOM TO WORK WITH PT.
--- NOTE | 2017-07-05 10:40 | NUR ---
PT URINE OUTPUT NOTED TO BE 200ML OVER THE LAST 8 HOURS. INFOMRED. ORDER PLACED FOR 1L BOLUS OF LR. GIVEN ORDERED (SEE MAR).
--- NOTE | 2017-07-05 10:47 | NUR ---
LR BOLUS HUNG. PT SLEEPING, CPAP IN PLACE. KWAME LIGTH WITHIN REACH.
--- NOTE | 2017-07-05 12:57 | NUR ---
FOCUSED ASSESSSMENT AND MEDICATIONS DUE. THIS RN TO BEDSIDE. PT BACK FROM X-RAY, CPAP PLACED FOR NAP. PT ABLE TO URINATE 300ML. PT REFUSES LUNCH. MATAINANCE INSULINE GIVEN BY HERIBERTO HARMAN. PT REPORTS "MY BREATHING IS STILL ABOUT THE SAME." SEE ASSESSMENT FOR LUNG SOUNDS. IV FLUIDS PAUSED FOR PICC LINE PLACEMENT. PLACEMENT COMPLETE, WAITING FOR X-RAY CONFIRMATION. PICC LINE RN REMAINS AT BEDSIDE. CALL LIGHT WITHIN REACH. BED RAILS UP.
--- NOTE | 2017-07-05 13:07 | NUR ---
PICC ADJUSTMENT. AFTER THE INITIAL CXR, DR MCGHEE AND I AGREE THAT THE LINE IS DEEP. I HAVE WITHDRAWN THE LINE 4 CM UNTIL 7 CM ARE OUTSIDE THE PT AND REAPPLIED A STERILE DRESSING. WE WILL AWAIT CLEARANCE OF THE CXR BEFORE USING THE LINE.
--- NOTE | 2017-07-05 13:55 | NUR ---
VISITING WITH PT. CALLS BECAUSE PUMP IS ALRMING. DISTAL OCCLUSION. MD STATES PICC LINE IS OK TO USE. NEW TUBING APPLIED TO FLUIDS. FLUID LINE ATTACHED TO PICC LINE, INFUSING REMAINING 500 OF BOLUS, MAINTENANCE FLUIDS TO FOLLOW. PT REQUESTS TIME TO TAKE A NAP. CPAP IN PLACE. FAMILY AT BEDSIDE. PT STATES SHE WILL TAKE A SHOWER LATER TODAY AFTER HER NAP. BED RAILS UP. CALL LIGHT WITHIN REACH. PT STATES HEADACHE IS "A LITTLE BETTER" NOW AT 7/10.
--- NOTE | 2017-07-05 14:15 | NUR ---
PT CALL LIGHT ON. PT COMPLAINS OF HEADACHE. (SEE MAR FOR MEDICATION GIVE). PT REQUESTS TIME TO NAP. LIGHTS OFF. DOOR CLOSED. CPAP ON. BED RAILS UP. CALL LIGHT WITHIN REACH.
--- NOTE | 2017-07-05 14:42 | NUR ---
THIS RN TO CHECK ON PT. PT RESTING WITH EYES CLOSED, RR = 18BPM. CPAP IN PLACE.
--- NOTE | 2017-07-05 15:08 | EKG ---
[facility] [address] [facility] [place] [address] Signed Normal sinus rhythm Abnormal QRS-T angle, consider primary T wave abnormality Abnormal ECG When compared with ECG of 15-MAR-2017 19:30, T wave inversion more evident in Inferior leads Confirmed by CASSIDY MCGHEE MD ([id number]) on 07/05/2017 3:07:55 PM Electronically Signed By: CASSIDY MCGHEE MD 07/05/17 1508 PATIENT NAME: FEDERICO SALMON Electrocardiogram DATE OF : 63 PHYSICIAN: CASSIDY MCGHEE MD REPORT #: [id number] REPORT IS CONFIDENTIAL AND NOT TO BE RELEASED WITHOUT AUTHORIZATION
--- NOTE | 2017-07-05 16:13 | NUR ---
PATIENT SAID SHE WOULD LIKE TO TAKE A SHOWER WHEN HER DAUGHTER GETS HERE. I TOLD HER I WILL SET HER SHOWER UP.
--- NOTE | 2017-07-05 17:24 | NUR ---
THIS RN TO BEDSIE FOR AFTERNOON ASSESSMENT. PT UP TO RESTROOM AND THEN TO CHAIR. PT EATING DINNER (SMALL AMOUNTS). CBG = 85. MD PERALES AND DC'D BASELINE INSULIN. ASSESSMENT DONE. NO MEDICATION DUE AT THIS TIME. PT REPORTS 7/10 HEADACHE "JUST LIKE ALWAYS." PICC LINE SALINE LOCKED AT THIS TIME R/T POSSIBLE USE IN THE NEXT FEW HOURS. FAMILY AT BEDSIDE. CALL LIGTH WITHIN REACH.
--- NOTE | 2017-07-05 18:18 | NUR ---
PT HERE FOR INFLUENZA B AND PNEUMONIA. STAND BY ASSIST, ADA DIET. PHYSICAL THERAPY AND RT INVOLVED. PT RELUCTANT TO WORK WITH PHYSICAL THERAPY, ENCOAUGE AMBULATION AND WORK WITH PHYSICAL THERAPY. BLOOD SUGAR CHECKS AT MEAL TIMES, MEAL TIME INSULIN DC'D TODAY. O2 AT [address], CPAP AT NIGHT. CONTINOUS FLUIDS DC'D TODAY. MONITORING KIDENY FUNCTION, POSSIBLE FLUID OVERLOAD, AND LOW URINE OUTPUT. PICC LINE PLACED TODAY. FAMILY AT BEDSIDE AND INVOLVED WITH CARE.
--- NOTE | 2017-07-05 18:30 | NUR ---
THIS RN TO ROOM THE HEPARIN LOCK PICC LINE R/T NO NEED FOR USE FOR MANY HOURS. PT WATCHING TV. NO REQUESTS OR COMPLAINTS. PT EDUCATIO R/T PICC LINE DONE. PT VERBALIZES UNDERSTANDING OF NEED TO KEEP PICC LINE PROTECTED AND CLEAN. PT VERBALIEZES UNDERSTANDING OF HEAPRIN LOCK. PT CALL LIGHT WITHIN REACH.
--- NOTE | 2017-07-05 19:02 | NUR ---
PATIENT'S DAUGHTER GAVE HER A SHOWER TONIGHT. SHE IS NOW SITTING UP IN HER CHAIR. SHE HAS A PICC LINE IN HER RIGHT ARM. SHE HAD A VERY BUSY DAY.
--- NOTE | 2017-07-05 19:11 | NUR ---
IN ROOM FOR REPORT, PT IS AWAKE IN CHAIR. CALL LIGHT IS WITHIN REACH AND PT DENIES NEEDS AT THIS TIME.
--- NOTE | 2017-07-05 20:40 | NUR ---
EVENING MEDICATIONS WERE GIVEN AND HELPED PT TO THE RESTROOM. SHE IS BACK IN BED AND VOIDED 375MLS. CPAP IS ON WITH 02 BLED INTO IT. FRESH WATER AND ICE AT BEDSIDE. PT DENIES FURTHER NEEDS AT THIS TIME.
--- NOTE | 2017-07-05 22:21 | NUR ---
DR MCGHEE CALLED TO CHECK ON PT'S OUTPUT FROM [phone]. TOLD HIM PT'S OUTPUT WAS 250MLS. NO NEW ORDERS WILL CONTINUE TO MONITOR.
--- NOTE | 2017-07-05 23:11 | NUR ---
PT IS RESTING WITH EYES CLOSED, RESPIRATIONS ARE EVEN AND NONLABORED ON CPAP. CALL LIGHT IS WITHIN REACH.
--- NOTE | 2017-07-06 01:06 | NUR ---
PT IS RESTING WITH EYES CLOSED, RESPIRATIONS EVEN AND NONLABORED ON CPAP. CALL LIGHT IS WITHIN REACH.
--- NOTE | 2017-07-06 03:16 | NUR ---
PT IS RESTING WITH EYES CLOSED, RESPIRATIONS EVEN AND NONLABORED ON CPAP. CALL LIGHT IS WITHIN REACH.
--- NOTE | 2017-07-06 04:01 | NUR ---
HELPED PT TO THE RESTROOM. SHE DECIDED TO MOVE TO THE CHAIR AT THIS TIME. SHE IS BACK ON 2LNC AND OFF CPAP FOR THE DAY. FRESH WATER AT BEDSIDE AND PT DENIES FURTHER NEEDS. SHE VOIDED 400.
--- NOTE | 2017-07-06 04:24 | NUR ---
PT SLEPT WELL THROUGH THE NIGHT WITH CPAP AND 2L O2 BLED INTO IT. SHE CONTINUES TO HAVE COARSE LUNG SOUNDS AND COUGH. SHE VOIDED 375 PRIOR TO BED LAST NIGHT AND 400 THIS MORNING ABOUT 0400. IF SHE VOIDS AGAIN BEFORE SHIFT CHANGE THEN HER URINE OUTPUT IS SUFFICIENT. PT HAS PICC LINE IN PLACE WHICH IS HEPLOCKED.
--- NOTE | 2017-07-06 05:55 | NUR ---
NOTIFIED DR CMGHEE OF PT'S URINE OUTPUT OF 400 THIS MORINING.
--- NOTE | 2017-07-06 06:24 | NUR ---
ALVA BLOOD FROM PICC LINE FOR LAB AND HEP-LOCKED. PT MOVED BACK TO BED AT THIS TIME AND DENIES FURTHER NEEDS. CALL LIGHT IS WITHIN REACH.
--- NOTE | 2017-07-06 07:13 | NUR ---
PT SLEEPING SOUNDLY, AND PER NOC RN, DOC'S REPORT, PT HAD REQUESTED NOT TO BE DISTURBED FOR REPORT IF SHE WAS SLEEPING. RECIEVED REPORT AT PT'S DOORWAY FROM HERIBERTO ROACH. THIS RN DID VISUALIZE PT, AND CHECKED THAT PULSE OX WAS ON, SATURATION LEVEL GREATER THAN 90%, AND O2 WAS ON AT 2L VIA NC.
--- NOTE | 2017-07-06 07:40 | NUR ---
PATIENT AWAKE IN BED. BOARD UPDATED, PATIENT HAS NO NEEDS ATT "JUST SLEEP" CALL LIGHT IN REACH.
--- NOTE | 2017-07-06 08:28 | NUR ---
PT SITTING UP IN RECLINER. BG 146. PT REPORTED MUSCLE ACHES, RATED PAIN 8/10, BUT STATED THAT SHE WANTED TO "HOLD OFF ON THE TYLENOL". PT SLOW TO RESPOND AT TIMES. PERSONAL SUPPLIES AND CALL LIGHT IN REACH.
--- NOTE | 2017-07-06 10:43 | NUR ---
PATIENT SITTING UP IN CHAIR, FINISHED WITH BREAKFAST. IN RM. VITALS VALERIA/OS DONE. CALL LIGHT IN REACH.
--- NOTE | 2017-07-06 11:59 | NUR ---
LAMART PUSHED HER CALL LIGHT TO GO TO THE BATHRROM, I MADE UP HER BED AND ORGANIZED HER ROOM WHILE SHE USED THE RESTROOM THEN HELPED HER TO BED, SHE NEEDED NO OTHER ASSISTANCE AT THE TIME.
--- NOTE | 2017-07-06 13:10 | NUR ---
PATIENT IN BED, APPEARS TO BE NAPPING, STARTLED UPON MY KNOCK AT DOOR. CLEANED TRASH OFF FLOOR, NO NEEDS ATT. CALL LIGHT IN REACH
--- NOTE | 2017-07-06 13:55 | NUR ---
PATIENT LYING IN BED, DR MCGHEE AND STUDENTS IN TO ASSESS PATIENT. B/P WHILE PATIENT WAS ON RIGHT SIDE. B/P ELEVATED(RN NOTIFIED..WILL RECHECK) ASSISTED PATIENT TO SITTING POSTITION ON EDGE OF BED WHILE AND SHE TALKED CALL LIGHT IN REACH
--- NOTE | 2017-07-06 14:11 | NUR ---
PT IN BED, AWAKE, ALERT. PT REPORTED THAT SHE STILL HAS A HEADACHE, AND GENERALIZED PAIN, RATED AT 7/10. PT REPORTED THAT SHE LIVES AT A 6/10 ON A DAILY BAISIS, THIS IS HER CHONIC PAIN LEVEL. PT DECLINED WHEN THIS RN SUGGESTED THAT DR. MCGHEE BE NOTIFIED OF THIS LEVEL OF PAIN, STATED "NO, THAT'S OK, I'LL JUST BREATH THROUGH IT". NOTIFIED DR. MCGHEE OF ABOVE NOTED.
--- NOTE | 2017-07-06 15:22 | NUR ---
PT IN BED, RECIEVED NEB TX. ALSO RECIEVED ROCEPHIN IV ORDERED, FOLLOWED BY 10 ML NS FLUSH, AND HEPARIN FLUSH. PT REMAINS ON 2L O2 VIA NC, OXYGEN SATURATION LEVEL 96%. LUNGS COARSE THROUGHOUT. NON PRODUCTIVE OCCASIONAL COUGH. PT HAS NOT YET HAD BM, STATED THAT SHE DOES NOT WANT TO TAKE MEDICATION TO ASSIST WITH HAVING A BM. STATED "NO, I KNOW MY BODY".
--- NOTE | 2017-07-06 17:38 | NUR ---
PT ON 2L O2 VIA NC. SOB WITH EXERTION. UP IN RECLINER MUCH OF SHIFT. ATTEMPTED TO HAVE PT AMBULATE IN HALLS, BUT PT REFUSED, EXCEPT FOR WHEN PT WORKED WITH P.T. TRACE EDEMA TO BLE. LUNGS ARE COARSE, DIMINSHED. PT RECIEVED ACETAMINOPHEN 500 MG PO PRN X 1 FOR HEADACHE AND GENERALIZED PAIN THIS SHIFT. UP WITH 1 PERSON STANDBY ASSIST.
--- NOTE | 2017-07-06 17:48 | NUR ---
PATIENT WATCHING TV IN BED. HERIBERTO DE OLIVEIRA AND MADY IN . VITALS AND I/OS DONE. FRESH ICE GIVEN AND COOL CLOTH FOR HEAD. CALL LIGHT IN REACH
--- NOTE | 2017-07-06 19:00 | NUR ---
RECEIVED REPORT FROM RN. PATIENT IS RESTING COMFORTABLY IN CHAIR, BREATHING IS EVEN AND UNLABORED. O2 SATURATION IS 95% ON 2L O2 VIA NC. PATIENT REPORTS HEADACHE AND NAUSEA AND STATES "I JUST GOT SOME TYLENOL A LITTLE BIT AGO." DENIES FURTHER NEEDS. CALL LIGHT WITHIN REACH.
--- NOTE | 2017-07-06 19:46 | NUR ---
PATIENT IS RESTING IN BED, BREATHING IS EVEN AND UNLABORED. O2 SATURATION IS 96% ON 2L O2 VIA NC. PATIENT REPORTS NAUSEA, PRN ZOFRAN GIVEN. CONTINUES TO REPORT HEADACHE. WILL REASSESS AT A LATER TIME DUE TO RECENT TYLENOL ADMINISTRATION. PATIENT DENIES FURTHER NEEDS. ASSESSMENT DONE. CALL LIGHT WITHIN REACH.
--- NOTE | 2017-07-06 21:14 | NUR ---
PATIENT RESTING COMFORTABLY IN CHAIR, BREATHING IS EVEN AND UNLABORED. STATES THAT SHE CONTINUES TO FEEL NAUSEOUS AND SAYS "I THINK SOME JELLO WILL HELP." JELLO GIVEN, PATIENT STATES THAT SHE IS HAVING 10/10 HEADACHE, TOPAMAX GIVEN PER EMAR, WILL CONTINUE TO MONITOR. BP OF 152/83 NOTED. DENIES FURTHER NEEDS. CALL LIGHT WITHIN REACH.
--- NOTE | 2017-07-06 21:43 | NUR ---
UPDATED DR. MCGHEE REGARDING PATIENT'S 01/14 HEADACHE, RECEIVED ORDER FOR IV COMPAZINE PRN.
--- NOTE | 2017-07-06 22:43 | NUR ---
PATIENT RESTING COMFORTABLY IN BED, BREATHING IS EVEN AND UNLABORED. STATES "MY HEADACHE IS BETTER, I DON'T FEEL SUPER NAUSEOUS ANYMORE, JUST A LITTLE." PRN COMPAZINE GIVEN. DENIES FURTHER NEEDS. STATES THAT SHE DOES NOT WANT TO USE CPAP TONIGHT AND SAYS "IT IS TOO LOUD." CALL LIGHT WITHIN REACH.
--- NOTE | 2017-07-07 00:53 | NUR ---
PATIENT RESTING COMFORTABLY IN BED, BREATHING IS EVEN AND UNLABORED. DENIES NEEDS AT THIS TIME. CALL LIGHT WITHIN REACH.
--- NOTE | 2017-07-07 02:25 | NUR ---
PATIENT RESTING COMFORTABLY IN BED, BREATHING IS EVEN AND UNLABORED. O2 SATURATION IS 93% ON 2L O2 VIA NC. DENIES NEEDS AT THIS TIME, DENIES NAUSEA OR PAIN. CALL LIGHT WITHIN REACH.
--- NOTE | 2017-07-07 04:31 | NUR ---
PATIENT RESTING COMFORTABLY IN BED, BREATHING IS EVEN AND UNLABORED. O2 SATURATION IS 93% ON 2L O2 VIA NC. FLACC SCORE OF 0. CALL LIGHT WITHIN REACH.
--- NOTE | 2017-07-07 06:00 | NUR ---
PATIENT RESTING COMFORTABLY IN CHAIR, BREATHING APPEARS MILDLY LABORED, RESPIRATORY RATE IS 18, O2 SATURATION IS 97% ON 2L O2. PATIENT STATES "I WISH I COULD JUST BREATHE NORMAL LIKE EVERYONE ELSE." PATIENT DENIES FEELING ANXIOUS AT THIS TIME, REVOCERING QUICKLY AFTER INSTRUCTED TO TAKE DEEP BREATHS. PATIENT DENIES NEEDS AT THIS TIME. CALL LIGHT WITHIN REACH.
--- NOTE | 2017-07-07 06:02 | NUR ---
PATIENT'S NIGHT WAS UNEVENTFUL. SHE HAS BEEN RESTING THROUGHOUT SHIFT. VSS, URINE OUTPUT QS. COMPLAINED OF 10/10 HEADACHE EARLIER IN THE SHIFT, RESOLVED AFTER COMPAZINE AND TOPIRAMATE. LUNG SOUNDS ARE COARSE THROUGHOUT, CRACKLES IN BASES, REQUIRES 3L O2 VIA NC TO MAINTAIN APPROPRIATE SATURATIONS, SHORT OF BREATH WITH AMBULATION, REFUSED TO WEAR CPAP THIS SHIFT. SBA TO BATHROOM, SBA/FWW IF AMBULATING IN HALLS. REPORTS NEUROPATHY IN FEET, AT BASELINE. PICC IN RIGHT ARM IS HEPARIN LOCKED, FLUSHING WELL, BLOOD RETURN NOTED. NO ACUTE CHANGES FROM BEGINNING OF SHIFT.
--- NOTE | 2017-07-07 07:37 | NUR ---
BEDSIDE SHIFT REPORT RECEIVED FROM FRANDY LOUIS. WHITE BOARD UPDATED. PATIENT AWAKE LYING IN BED. ALL QUESTIONS ANSWERED. PATIENT HANDED PHONE AND MENU TO ORDER BREAKFAST. DROPLET ISOLATION PERCAUTIONS IN PLACE FOR INFLUENZA. PT REPORTS 4L 02 VIA [place] CHRONICALLY AT HOME, BUT ON 2L 02 NOW. PICC RENE HEP LOCKED NOW. NO NEEDS AT THIS TIME.
--- NOTE | 2017-07-07 08:13 | NUR ---
PATIENT SITTING UP IN BEDSIDE RECLINER, SET UP TO EAT BREAKFAST. RN IN ROOM. THIS CLINICAL COUNSELOR SET UP ORAL CARE AND A WARM WASHCLOTH FOR PATIENT AFTER BREAKFAST. CALL LIGHT IN REACH. NO OTHER NEEDS AT THIS TIME.
--- NOTE | 2017-07-07 08:14 | NUR ---
PT UP TO BATHROOM AND UP TO RECLINER NOW. RESPIRATORY THERAPIST IN GIVING BREATHING TREATMENT NOW. PATIENT SOB AFTER AMBULATING TO BATHROOM AND BACK TO CHAIR. BREAKFAST DELIVERED.
--- NOTE | 2017-07-07 08:45 | NUR ---
SPOKE WITH PATIENT IN ROOM. DISCUSSED CARE CONFERENCE TODAY. SHE WOULD LIKE HER DAUGHTER TO ATTEND. SHE STATES HER DAUGHTER IS MOVING BUT SHE HAS ARRANGED ANOTHER CAREGIVER TO TAKE OVER. PATIENT HAS MULTIPLE PEOPLE HELPING HER AT HOME. WE DECIDED CARE CONFERENCE FOR 1130 THIS MORNING. I CALLED HER DAUGHTERS PHONE AND LEFT A MESSAGE.
--- NOTE | 2017-07-07 09:56 | NUR ---
PATIENTS DAUGHTER IN ROOM. STATES SHE RECEIVED THE MESSAGE. STATES SHE HAS ASKED THE NEW CAREGIVER TO COME, ALSO. UPDATED STAFF ON TIME FOR CONFERENCE.
--- NOTE | 2017-07-07 10:40 | NUR ---
PATIENT AMBULATING WITH PT. CALL LIGHT IN REACH. NO OTHER NEEDS AT THIS TIME.
--- NOTE | 2017-07-07 11:52 | NUR ---
THIS RIDING SILKS CUSTODIAN TRIED TO GET VITALS FROM PATIENT. PATIENT WAS UP WITH PT, THEN TALKING WITH PHARMACIST AND DOCTOR . PATIENT REQUESTED A FEW MINUTES ALONE WITH FAMILY, PATIENT VERY EMOTIONAL.
--- NOTE | 2017-07-07 11:58 | NUR ---
CARE CONFERENCE ATTENDANCE: PATIENT, DAUGHTER BOB, NEW CAREGIVER PRAVEEN DR MCGHEE, MYSELF CASE MANAGEMERERIC RN, [facility] RESPIRATORY THERAPY, [facility] PHYSICAL THERAPY DR MCGHEE GAVE AN OVERVIEW OF PATIENTS ADMIT AND PROGRESS. PATIENT HAS FINISHED COURSE OF TAMIFLU AND TODAY IS LAST IV ANTIBIOTIC. WE WILL CONTINUE TO MONITOR KIDNEY FUNCTION AND WILL DISCHARGE WHEN CREATINE IS TRENDING DOWN. XRAY IS STABLE. PATIENT TO CONTINUE PT AND RT WORK TO BUILD STRENGTH. PLAN RT STATES PATIENTS SATURATIONS HAVE BEEN VERY STABLE WITH REST AND EXERCISE ON 2-3LNC. PATIENT USES OXYGEN CHRONICALLY FROM 2-4LNC. IS WORK CONTINUES. PATIENT IS STARTING TO BUILD BETTER LUNG CAPACITY WITH MUCH ENCOURAGMENT. PT STATES PATIENT HAS DONE STAIR WORK AND TODAY WAS ABLE TO WALK >225 FT WITH A COUPLE SHORT STANDING RESTS. PATIENT HAS FINISHED INPATIENT PT GOALS, THEY WILL CONTINUE TO WORK WITH HER UNTIL DISCHARGE, BUT THEY RECOMMEND HOME PT AFTER DISCHARGE. PATIENT AND DAUGHTER ASK SEVERAL QUESTIONS. REGARDING WHEN POSSIBLE DISCHARGE IS, WHAT THEY HAVE TO DO FOR HOME HEALTH TO BE ORDERED AND HOW LONG SHE WILL BE WEAKENED. ALL QUESTIONS ANSWERED TO THEIR SATISFACTION AT THIS TIME. ENCOURAGED THEM TO WRITE DOWN ANYTHING ELSE AND WE WILL ADDRESS EACH BEFORE DISCHARGE.
--- NOTE | 2017-07-07 12:12 | NUR ---
PATIENT STATED SHE JUST FINISHED WITH AN "EMOTIONAL MELT DOWN" AND PATIENTS DAUGHTER STATED THAT THAT IS PROBABLY WHY HER BP IS HIGH.
--- NOTE | 2017-07-07 12:30 | NUR ---
PATIENT IN ROOM WITH FAMILY. PATIENT REQUESTED BLOOD SUGAR CHECK FOR LUNCH. RN NOTIFIED. CALL LIGHT IN REACH. NO OTHER NEEDS AT THIS TIME.
--- NOTE | 2017-07-07 15:36 | NUR ---
[facility] GIVEN PER REQUEST. IV ABX INFUSING NOW. 1/2NS @ 75 INFUSING NOW WELL. PT SITTING UP IN RECLINER NOW. SOB AT TIMES. BREATHING TREATMENT GIVEN BY RT.
--- NOTE | 2017-07-07 18:11 | NUR ---
PATIENT HAD DECENT DAY. CARE CONFERENCE AT 1130. PATIENT WILL BE HERE FOR SEVERAL MORE DAYS. NEEDS TO SEE CREATININE TRENDING DOWN. SBA IN ROOM. FWW IN HALLS. WORKING WITH PHYSICAL THERAPY. ADA DIET. POOR APPETITE. URINE SAMPLE SENT TO LAB. 04/08 NS @ 75 NOW FOR FLUID HYDRATION. ROCEPHIN. BM YESTERDAY. VISTAR[facility] FOR ANXIETY. SOB WITH ACTIVITY. FORGETFUL AT TIMES. DROPLET ISOLATION PERCAUTIONS. FINISHED TAMIFLU.
--- NOTE | 2017-07-07 18:25 | NUR ---
THIS PRODUCTION SPECIALIST ASSISTED PATIENT UP TO BATHROOM. PATIENT UNDERSTOOD TO PULL CALL CORD WHEN READY TO GET UP. CALL CORD IN REACH. NO OTHER NEEDS AT THIS TIME.
--- NOTE | 2017-07-07 18:31 | NUR ---
Patient called with call light, I went to help her get comfortable in the chair after walking back from the bathroom, states "I still have diarrhea" and "help talk me down" patient is short of breath. Instructed to breath in through nose and out through mouth. Now breathing more calmly. O2 saturation is 93% on 2L via NC.
--- NOTE | 2017-07-07 18:39 | NUR ---
PT REPORTS DIARRHEA CONTINUING. LIKELY D/T ABX. PATIENT SOB AFTER BEING HELPED FROM BATHROOM. ANXIETY HEIGHTENED. AMPARO RN STAYED WITH PATIENT AND PROVIDED CALMING ENVIRONMENT TO CALM PATIENT.
--- NOTE | 2017-07-07 19:05 | NUR ---
RECEIVED REPORT FROM RN. PATIENT IS RESTING COMFORTABLY IN BED, BREATHING IS EVEN AND UNLABORED. DENIES NEEDS AT THIS TIME. O2 SATURATION IS 94% ON 2L O2 VIA NC. CALL LIGHT WITHIN REACH.
--- NOTE | 2017-07-07 21:38 | NUR ---
PATIENT RESTING IN CHAIR, BREATHING IS EVEN AND UNLABORED. O2 SATURATION IS 95% ON 2L O2 VIA NC. REPORTS 7/10 PAIN "FROM HEAD TO TOE." SCHEDULED TOPIRAMATE AND TIZANIDINE GIVEN. PATIENT DENIES FURTHER NEEDS. ASSESSMENT DONE, CALL LIGHT WITHIN REACH.
--- NOTE | 2017-07-07 23:39 | NUR ---
PATIENT RESTING COMFORTABLY IN BED, BREATHING IS EVEN AND UNLABORED. O2 SATURATION IS 95% ON CPAP WITH 3L BLEED IN. DENIES FURTHER NEEDS. CALL LIGHT WITHIN REACH.
--- NOTE | 2017-07-08 02:50 | NUR ---
PATIENT RESTING IN BED, BREATHING IS EVEN AND UNLABORED. DENIES NEEDS AT THIS TIME. O2 SATURATION IS 95% ON 3L O2 WITH CPAP. CALL LIGHT WITHIN REACH.
--- NOTE | 2017-07-08 03:15 | NUR ---
PATIENT RESTING COMFORTABLY IN BED, BREATHING IS EVEN AND UNLABORED, O2 SATURATION IS 94% ON 3L O2 WITH CPAP. DENIES PAIN AT THIS TIME. CALL LIGHT WITHIN REACH.
--- NOTE | 2017-07-08 05:13 | NUR ---
PATIENT'S NIGHT WAS UNEVENTFUL. SHE HAS BEEN RESTING OFF AND ON THROUGHOUT SHIFT. VSS, URINE OUTPUT QS, PAIN WELL CONTROLLED. CONTINUES TO REQUIRE 2-3L O2, LUNG SOUNDS ARE COARSE WITH CRACKLES IN BASES, OCCASIONAL EXPIRATORY WHEEZE. ALERT AND ORIENTED X4 THIS SHIFT. NO ACUTE CHANGES FROM BEGINNING OF SHIFT.
--- NOTE | 2017-07-08 05:46 | NUR ---
PATIENT RESTING COMFORTABLY IN BED, BREATHING IS EVEN AND UNLABORED. DENIES NEEDS AT THIS TIME. CALL LIGHT WITHIN REACH.
--- NOTE | 2017-07-08 07:37 | NUR ---
BEDSIDE SHIFT REPORT RECEIVED FROM FRANDY LOUIS. WHITE BOARD UPDATED. PATIENT SITTING UP IN RECLINER WORKING ON LAPTOP. 2L O2 VIA NC IN PLACE. CREATININE DECREASED FROM 1.99 TO 1.86 TODAY. 1/2 NS INFUSING AT 75ML/HR. NO NEEDS AT THIS TIME. CALL LIGHT AND BELONGINGS IN REACH.
--- NOTE | 2017-07-08 09:00 | NUR ---
PATIENT SITTING UP IN BEDSIDE RECLINER EATING BREAKFAST. DAUGHTER IN ROOM. PATIENT AND RN DISCUSSED TAKING A SHOWER AFTER PT WORKS WITH PATIENT. CALL LIGHT IN REACH. NO OTHER NEEDS AT THIS TIME.
--- NOTE | 2017-07-08 10:46 | NUR ---
IVF INFUSING AGAIN AFTER PHYSICAL THERAPY. PATIENT REFUSING SHOWER AT THIS TIME UNTIL DAUGHTER RETURNS. DAUGHTER IN ROOM NOW. WILL ALERT APPLICATION SUPPORT MANAGER TO ENCOURAGE PT TO GET INTO SHOWER SOON.
--- NOTE | 2017-07-08 12:08 | NUR ---
I RESPONDED TO PT'S REQUEST FOR A VISIT FROM ME. PT FEELING BETTER, SOME SLIGHT ANXIETY ABOUT NOT BEING ABLE TO BE DC'D YET, BUT DEALING WITH THIS SET BACK APPROPRIATELY. PT SHARED THAT HER DAUGHTER IS MOVING TO [place]. SHE IS ALREADY MISSING HER G.KIDS, AND ALSO MENTIONED THAT THEIR HOME WAS PURCHASED WITH THEM LIVING WITH THEM. NEW Hayley SECURED. HAD PLEASANT VISIT, PT REQUESTED PRAYER. WILL FOLLOW NEEDED
--- NOTE | 2017-07-08 13:15 | NUR ---
PATIENT SITTING UP IN BEDSIDE RECLINER. WHEN ASKED ABOUT HER SHOWER THAT WAS SCHEDULED AT 1130, PATIENT STATED THAT SHE WOULD RATHER WAIT UNTIL TONIGHT TO TAKE SHOWER. FRESH ICE WATER AT BEDSIDE TABLE. CALL LIGHT IN REACH. NO OTHER NEEDS AT THIS TIME.
--- NOTE | 2017-07-08 16:19 | NUR ---
PATIENT RESTING IN BEDSIDE RECLINER. FAMILY IN ROOM. FRESH ICE WATER ON BEDSIDE TABLE. CALL LIGHT IN REACH. NO OTHER NEEDS AT THIS TIME.
--- NOTE | 2017-07-08 17:43 | NUR ---
PATIENT SITTING UP IN CHAIR WITH SITTING NEXT TO HER. CALL BUTTON IN REACH. WARM BLANKET GIVEN. NO OTHER NEEDS AT THIS TIME.
--- NOTE | 2017-07-08 18:35 | NUR ---
UP IN RECLINER MOST OF DAY. VISTARIL GIVEN X2. ZOFRAN X1. CAN BE OFF PERCAUTIONS AT MIDNIGHT TONIGHT (07/09/17). 2L 02 VIA NC. SOB WITH EXTENDED ACTIVITY. ANXIETY AT TIMES. RENE PICC 1/2NS @ 75. ADA DIET. POOR APPETITE, BUT IMPROVING. WORKING WITH PHYSICAL THERAPY. WATCHING CREATININE-- HOPING TO DECREASE. CPAP AT NIGHT.
--- NOTE | 2017-07-08 18:37 | NUR ---
PATIENT RESTING IN BEDSIDE RECLINER. CALL LIGHT IN REACH. FRESH ICE WATER AT BEDSIDE TABLE. NO OTHER NEEDS AT THIS TIME.
--- NOTE | 2017-07-08 19:00 | NUR ---
RECEIVED REPORT FROM RN. PATIENT IS RESTING IN BED, BREATHING IS EVEN AND UNLABORED. REMAINS ON 2L O2 VIA NC. REPORTS NAUSEA. DENIES NEEDS AT THIS TIME. CALL LIGHT WITHIN REACH.
--- NOTE | 2017-07-08 19:46 | NUR ---
PRN IV COMPAZINE GIVEN FOR PATIENT'S CONTINUED NAUSEA. PATIENT DENIES FURTHER NEEDS. CALL LIGHT WITHIN REACH.
--- NOTE | 2017-07-08 20:44 | NUR ---
PATIENT RESTING IN CHAIR, BREATHING IS EVEN AND UNLABORED. DENIES NEEDS AT THIS TIME. MEDICATIONS GIVEN, CALL LIGHT WITHIN REACH.
--- NOTE | 2017-07-08 21:04 | NUR ---
PATIENT RESTING IN BED, BREATHING IS TACHYPNEIC AND LABORED AFTER TRANSFERING FROM CHAIR TO BED, BREATHING TREATMENTS GIVEN PER EMAR. PATIENT'S O2 SATURATION IS 99% ON 2L O2 VIA NC. PATIENT DENIES NEEDS AT THIS TIME. ASSESSMENT DONE, CALL LIGHT WITHIN REACH.
--- NOTE | 2017-07-08 23:26 | NUR ---
PATIENT RESTING COMFORTABLY IN BED, BREATHING IS EVEN AND UNLABORED. CALL LIGHT WITHIN REACH.
--- NOTE | 2017-07-09 02:21 | NUR ---
PATIENT RESTING COMFORTABLY IN BED, BREATHING IS EVEN AND UNLABORED ON CPAP. CALL LIGHT WITHIN REACH.
--- NOTE | 2017-07-09 05:06 | NUR ---
PATIENT'S NIGHT WAS UNEVENTFUL. SHE HAS BEEN RESTING THROUGHOUT SHIFT. VSS, URINE OUTPUT QS, PAIN WELL CONTROLLED. ALERT AND ORIENTED, REQUIRED 2L O2 WHILE ASLEEP, LUNGS CONTINUE TO BE COARSE WITH CRACKLES IN BASES. CONTINUES TO BE ON IV FLUIDS, SBA TO BATHROOM. NO ACUTE CHANGES FROM BEGINNING OF SHIFT.
--- NOTE | 2017-07-09 05:45 | NUR ---
PATIENT RESTING IN CHAIR, BREATHING IS EVEN AND UNLABORED. REPORTS NAUSEA, COMPAZINE GIVEN. DENIES FURTHER NEEDS. CALL LIGHT WITHIN REACH.
--- NOTE | 2017-07-09 06:56 | NUR ---
PRN VISTARIL 25 MG ADMINISTERED PER PT REQUEST. PT UP IN CHAIR, ON 2L OXYGEN NC, WORKING ON COMPUTER. CALL LIGHT IN REACH.
--- NOTE | 2017-07-09 07:15 | NUR ---
BEDSIDE HANDOFF REPORT RECEIVED FROM CLAY PRESS OPERATOR RN. PT SITTING IN CHAIR. IV FLUIDS INFUSING NS AT 75 ML/HR. PT ON 2L NC. PT DENIES OTHER NEEDS AT THSI TIME.
--- NOTE | 2017-07-09 07:48 | NUR ---
PATIENT IS SITTING UP IN CHAIR EATING BREAKFAST. STUDENT NURSE IN ROOM. PATIENT STATES THAT SHE IS FEELING WELL. CALL LIGHT WITHIN REACH. NO OTHER NEEDS AT THIS TIME.
--- NOTE | 2017-07-09 08:45 | NUR ---
PT RESTIGN IN BED. PT DENIES PAIN. PT COMPLAINT OF NAUSEA, RECENTLY RECEIVED COMPAZINE, GIVEN 4 MG IV ZOFRAN. PT ON 2L NC, LUNG SOUNDS COARSE WITH CRACKLES IN BASES, COMPLAINT OF SOB, STATES AT BASELINE. PT BOWEL TONES ACTIVE. PICC LINE TO RIGHT ARM, BLOOD RETURN PRESENT, INFUSING 1/2 NS AT 75 ML/HR. PT WITH EDEMA TO BLE, 1+. DISCUSSED PLAN OF CARE FOR THE DAY. PT DENIES NEEDS AT THIS TIME. DAUGHTER AT BEDSIDE.
--- NOTE | 2017-07-09 08:57 | NUR ---
THIS JOURNEYMAN SHEET METAL WORKER TALKED TO THE PATIENT ABOUT SHOWERING TODAY. PATIENT STATES THAT HER DAUGHTER WILL BE IN HER ROOM MOST OF TODAY. WE DISCUSSED A TIME TO TAKE A SHOWER AND DISCUSSED 1130AM FOR IT. PATIENT STATES IT WILL BE AFTER PHYSICAL THERAPY AND SHE WANTS HER DAUGHTER TO HELP. TIME IS WRITTIN ON BOARD IN PATIENTS ROOM AND RN NOTIFIED.
--- NOTE | 2017-07-09 10:10 | NUR ---
PATIENT ASSISTED TO BATHROOM. 1 PERSON SBA. PATIENT STATES SHORTNESS OF BREATH WHEN AMBULATING STILL. RN NOTIFIED. STUDENT NURSE IN ROOM. PATIENT TRANSFERED FROM BATHROOM TO CHAIR.
--- NOTE | 2017-07-09 10:35 | NUR ---
STUDENT NURSE STATES THAT SHE CHANGED THE LINEN.
--- NOTE | 2017-07-09 11:39 | NUR ---
THIS DIVERSIFIED CROPS II FARMWORKER SET UP THE SHOWER FOR THE PATIENT. PATIENTS DAUGHTER IS ASSISTING PATIENT WITH SHOWER.
--- NOTE | 2017-07-09 11:40 | NUR ---
PT CONTINUES TO COMPLAIN OF NAUSEA. PT REQUESTING COMPAZINE. 5MG IV COMPAZINE GIVEN. PT SALINE LOCKED FOR SHOWER. PT DENIES OTHER NEEDS AT THIS TIME. DAUGHTER AT BEDSIDE. NURSE AIDE TO ASSIST WITH SHOWER.
--- NOTE | 2017-07-09 11:56 | NUR ---
PATIENT OUT OF SHOWER. PATIENT IS NOW SITTING IN CHAIR RESTING. PATIENTS FAMILY STILL IN ROOM.
[2017-07-09] MEDS ORDERED: NORVASC5 MG PO (13:35)
[2017-07-09] MEDS ORDERED: GABAPENTIN300 MG PO (13:36)
[2017-07-09] MEDS ORDERED: HYDROXYZINE PAM25 MG PO (13:38)
[2017-07-09] MEDS ORDERED: LANTUS SOL100 UNIT/1 SUB-Q (13:39)
[2017-07-09] MEDS ORDERED: HUMALOG100 UNITS/ SUB-Q (13:42)
[2017-07-09] MEDS ORDERED: TOPAMAX25 MG PO (13:43)
--- NOTE | 2017-07-09 14:30 | NUR ---
PATIENT RESTING IN BEDSIDE RECLINER. RN IN ROOM. CALL LIGHT IN REACH. NO OTHER NEEDS AT THIS TIME.
--- NOTE | 2017-07-09 14:35 | NUR ---
RN, STUDENT NURSES AND STUDENT NURSE TEACHER IN ROOM.
--- NOTE | 2017-07-09 14:45 | NUR ---
PICC LINE REMOVED PER ORDER WITHOUT COMPLICATION. PT TOLERATED PROCEDURE WELL. PT WITH ANXIETY, GIVEN VISTARIL. PT RESTING IN BED, INSTRUCTED TO LAY IN BED FOR 30 MIN. PT DENIES OTHER NEEDS AT THIS TIME.
--- NOTE | 2017-07-10 07:50 | NUR ---
FAXED CHART NOTES TO [facility] THESE INCLUDED FACESHEET, H AND P, DC SUMMARY, DC PACKET, PT EVAL AND NOTES. TALKED WITH DARCY IN AND SHE STATED THEY RECIEVED THE FAX. RECIECVED FAXED CONFIRMATION.
== END 2017-07-09 15:25 | disposition home or self-care (01) | DRG 193 ==
LOC: ED 12:06 → CCU 14:48 → MS 07-02 11:35
PROVIDERS: ADMIT Internal Medicine
PROC: 05H533Z Insertion of Infusion Device into Right Subclavian Vein, Percutaneous Approach (ICD-10-PCS; principal; 2017-07-05 11:45)
DX: J10.00 Influenza due to other identified influenza virus with unspecified type of pneumonia (principal); J96.21 Acute and chronic respiratory failure with hypoxia; N17.9 Acute kidney failure, unspecified; J44.1 Chronic obstructive pulmonary disease with (acute) exacerbation; Z68.42 Body mass index [BMI] 45.0-49.9, adult; E83.42 Hypomagnesemia; E87.6 Hypokalemia; E11.65 Type 2 diabetes mellitus with hyperglycemia; M79.7 Fibromyalgia; I10 Essential (primary) hypertension; K21.9 Gastro-esophageal reflux disease without esophagitis; E66.01 Morbid (severe) obesity due to excess calories; G43.909 Migraine, unspecified, not intractable, without status migrainosus; F41.1 Generalized anxiety disorder; Z90.710 Acquired absence of both cervix and uterus; Z79.4 Long term (current) use of insulin; G47.33 Obstructive sleep apnea (adult) (pediatric); Z99.81 Dependence on supplemental oxygen
CPT/HCPCS: 36415; 36569; 71045; 71046; 80053; 80069; 80076; 80202; 82550; 82570; 83605; 83735; 83880; 84300; 85025; 87070; 87205; 87502; 89051; 93005; 93010; 94640; 94667; 94668; 94762; 97110; 97116; 97163; 97530; C1751; J0456; J0696; J0780; J1650; J1885; J2405; J2930; J3370; J3475; J7030; J7040; J7050; J7120; Q0177

== ENCOUNTER 2017-07-16 11:49 | Emergency (ER) | payer MEDICARE, OTHER ==
[~2017-07-16] VITALS: Ht 167.6 cm; Wt 127.0 kg
--- OUTSIDE RECORDS SUMMARY | ~2017-07-16 | XMS | Encounter Summary ---
Demographics + + + | Address | [address] | | | [place] [address] | + + + | Home Phone | | + + + | Preferred Language | Unknown | + + + | Marital Status | | + + + | Yazidi Affiliation | Unknown | + + + | Race | Unknown | + + + | Ethnic Group | Unknown | + + + Author + + + | Author | [facility] [email or web address] | + + + | Organization | [facility] [employer] [facility] | + + + | Address | Unknown | + + + | Phone | Unavailable | + + + Support + + +---------+ + | Name | Relationship | Address | Phone | + + +---------+ + | Amado Araiza | ECON | Unknown | | + + +---------+ + Care Team Providers + +------+ + | Care Sales Engagement Manager Name | Role | Phone | + +------+ + | Mynor Kam MD | PCP | | + +------+ + Encounter Details +--------+ + + + + | Date | Type | Department | Care Team | Description | +--------+ + + + + | 07/14/ | Telephone | [facility] | Sharee Wilkinson, | | | 2017 | | Pulmonology [address] | | | | | [address] | | | | | | [place] | | | | | | [address] | | | | | | [phone] | | | +--------+ + + + [...] + + + as of this encounter Plan of Treatment +--------+ + + + + | Date | Type | Specialty | Care Team | Description | +--------+ + + + + | 08/04/ | Office | Pulmonology | Matt, | | | 2017 | Visit | | Esperanza Arora, | | | | | | MD [address] | | | | | | [place] [address] | | | | | | [phone] | | | | | | | | +--------+ + + + + | 08/22/ | Procedure | Neurology | | | | 2017 | visit | | | | +--------+ + + + + | 08/22/ | Office | Neurology | DarrylElaine, | | | 2017 | Visit | | MD [address] | | | | | | [place] | | | | | | [address] | | | | | | | | +--------+ + + + + | 11/27/ | Office | Pulmonology | Matt, | | | 2017 | Visit | | Esperanza Arora, | | | | | | MD [address] | | | | | | [place] [address] | | | | | | [phone] | | | | | | | | +--------+ + + + + as of this encounter Visit Diagnoses Not on filein this encounter"
--- OUTSIDE RECORDS SUMMARY | ~2017-07-16 | XMS | Encounter Summary ---
Demographics + + + | Address | [address] | | | [place] [address] | + + + | Home Phone | | + + + | Preferred Language | Unknown | + + + | Marital Status | | + + + | Mormon Affiliation | Unknown | + + + | Race | Unknown | + + + | Ethnic Group | Unknown | + + + Author + + + | Author | [facility] [employer] | + + + | Organization | [facility] [facility] | + + + | Address | Unknown | + + + | Phone | Unavailable | + + + Support + + +---------+ + | Name | Relationship | Address | Phone | + + +---------+ + | Amado Araiza | ECON | Unknown | | + + +---------+ + Care Team Providers + +------+ + | Care Wastewater Design Engineer Name | Role | Phone | + +------+ + | Mynor Kam MD | PCP | | + +------+ + Reason for Visit + + + | Reason | Comments | + + + | Follow-up | Primary generalized epilepsy, major (HCC). | + + + Consult and Treat [...] | | | | pulmonary | Joseline K, | [address] | | | | | insufficienc | PA-C [address] | | | | | y, not | [address] | [place] | | | | | elsewhere | [address] | [address] Phone: | | | | | classified | [place], | [phone] | | | | | Memory loss | [place] | Fax: | | | | | | [address] | [phone] | | | | | | Phone: | | | | | | | [phone] | | | | | | | Fax: | | | | | | | [phone] | | + +--------+ + + + + Encounter Details +--------+---------+ + + + | Date | Type | Department | Care Team | Description | +--------+---------+ + + + | 06/27/ | Office | [facility] | Elaine Andrews, | Primary generalized | | 2018 | Visit | [facility] | [address] | epilepsy, major | | | | [address] | [address] [place] | (Primary Dx); | | | | [place] | [address] | Vertigo; Migraine | | | | [address] | | with aura and | | | | [phone] | | without status | | | | | | migrainosus, not | | | | | | intractable | +--------+---------+ + + + Social History [...] + + + | Blood Pressure | 144/81 | 06/27/2017 10:15 AM PDT | + + + + | Pulse | 86 | 06/27/2017 10:15 AM PDT | + + + + | Temperature | - | - | + + + + | Respiratory Rate | - | - | + + + + | Oxygen Saturation | 95% | 06/27/2017 10:15 AM PDT | + + + + | Inhaled Oxygen | - | - | | Concentration | | | + + + + | Weight | 140.4 kg (309 lb 8 | 06/27/2017 10:15 AM PDT | | | oz) | | + + + + | Height | 167.6 cm (5' 6") | 06/27/2017 10:15 AM PDT | + + + + | Body Mass Index | 49.95 | 06/27/2017 10:15 AM PDT | + + + + in this encounter Instructions Patient Instructions - Elaine Andrews MD - 06/27/2017 10:15 AM PDT Tab topamax 25mg (for possible migraine aura, migraine and vertigo) Increase to 2 tabs morning and 1 tab at night for a week Then increase to 2 tabs twice a day Keep a migraine log on the paper We will obtain WACE test (memory test ) at next visit Talk to PCP about referral to PT to evaluate gait and balance in this encounter Progress Notes Elaine Andrews MD - 06/27/2017 10:15 AM PDTFormatting of this note may be different fro m the original. Subjective: Patient ID: Gilma Aariza is a 51 y.o. female here for follow up of headache and epilepsy HPI The following portions of the patient's history were reviewed and updated as appropriate an d is available elsewhere in the record: allergies, current medications, past family history, past medical history, past social history, past surgical history and problem list. Gilma is a 51 yo R handed lady from [place], [place] for follow up of seizure disorder. Last s een on 11/24/15. She has h/o DM type 2, morbid obesity, osteoarthritis, fibromyalgia, H1N1 pneumonia 2013, A RDS, seen at [facility] following complications and being comatose. She reports h/o seizures as a child - age 9 - grandmal seizures - seen at [facility] - on phenobarbital for 7 years[address] De Jesus at [place] at age 15. Did not dejuan nue medications. She had one grandmal after of her first daughter - 31 years ago. Was tired after a [employer] bus drive from [place] to [place]. She has another perioperative seizure a few years ago (after cholecystectomy). She reports 2 grandmal unwitnessed seizures 2015 - at home - fell and loss consciousness - cracked a glass door. Then went to bed and lost consciousness. Not sure how long she was out . No urinary incontinence. She reports twitches of upper body - since she was a little girl. She feels that it is mome ntary - mostly arms and upper body - quick second. Sometimes 20 times a minute, if tired and lies down to go to sleep. Can go by days without twitching, denies any confusion during or after. Denies partial seizures - shaking of only part of body. Had a sleep deprived EEG- 11/11/14 - done at [facility] at [place] and read by Linh Fernandez ([facility]). Was not available during interview but faxed to us after. "Abnormal awake and drowsy EEG - frequent spike and wave discharges with a generalized fiel d though consistently with a left dqoooq-ipmryk-fligboxn lead-in, with activation during hyp erventilation and [...] poor" Has had MRI brain done at [facility] in June 2015 - uploaded in [facility] including report. Normal structure. She complains of short-term memory loss since she was hospitalized at [facility] in 2013. F eels it has worsened. Does not drive. On followup today, Last seen on 12/17/16. A friend brought her. Reports that she has taken Topamax 25mg 2 tabs every morning but it does not seem to be hel ping. Continues to have headaches. Last migraine was yesterday - lasted 5 hours. Typically a nywhere from 2 hours to 12 hours. No major side effects from Topamax. She is also c/o poor memory. She is also feeling isolated and does not wish to go out due t o this. Her daughter used to be her caregiver but she is moving to [place]. She is getting a n ew caregiver. c/o falls - does not feel her feet and walks barefeet at home. Feels the floor is slippery for her. Fell 10-12 times in the past month. No major injury. Current Outpatient Prescriptions: azithromycin (ZITHROMAX) 250 MG tablet, TAKE TWO TABLETS BY MOUTH NOW then ONE TABLET DAILY DAY 2-5, Disp: 6 tablet, Rfl: 0 beclomethasone (QVAR) 80 MCG/ACT inhaler, Inhale 1 puff into the lungs 2 (two) times d aily., Disp: 1 Inhaler, Rfl: 3 DULoxetine (CYMBALTA) 30 MG capsule, Take 90 mg by mouth daily., Disp: , Rfl: gabapentin (NEURONTIN) 300 MG capsule, Take 900 mg by mouth 3 (three) times daily., Di sp: , Rfl: insulin lispro, human, (HUMALOG) 100 UNIT/ML injection, Inject into the skin 2 (two) times daily as needed. Sliding scale, Disp: , Rfl: LORazepam (ATIVAN) 0.5 MG tablet, Take 1 mg by mouth daily., Disp: , Rfl: losartan (COZAAR) 50 MG tablet, Take 50 mg by mouth daily., Disp: , Rfl: tizanidine (ZANAFLEX) 4 MG capsule, Taking 2 tabs 2 times a day, Disp: , Rfl: 2 topiramate (TOPAMAX) 25 MG tablet, take 2 tabs every morning., Disp: 60 tablet, Rfl: 5 albuterol (PROVENTIL) (2.5 MG/3ML) 0.083% nebulizer solution, Take 3 mLs by nebulizati on every 6 (six) hours as needed for Wheezing., Disp: 336 mL, Rfl: 11 ibuprofen (MOTRIN) 800 MG tablet, Take 800 mg by mouth every 6 (six) hours as needed f or Pain., Disp: , Rfl: montelukast (SINGULAIR) 10 MG tablet, Take 1 tablet by mouth nightly., Disp: 30 tablet , Rfl: 11 Review of Systems As noted in HPI. Rest unchanged since last visit on 12/17/16 Objective: Physical Exam BP 144/81 (BP Location: Right upper arm, Patient Position: Sitting) | Pulse 86 | Ht 1.676 m (5' 6") | Wt 140.4 kg (309 lb 8 oz) | SpO2 95% | BMI 49.95 kg/m Middle aged lady, neatly groomed, pleasant. Morbid obesity + Alert, oriented, fluent speech. PERRL. EOMI. No nystagmus. Face symmetric. No pronator drift. Good hand sample puller HF 3/5 with difficulty b/l KE , KF, DF 5/5 Mildly wide based and slow gait with use of cane Assessment and Plan: Gilma Araiza is a 51 year-old right-handed lady with a history of diabetes, morbid obesity , fibromyalgia, history of ARDS from H1N pneumonia in 2013- status post tracheostomy and rep ortedly comatose and treated at [facility]. She reports that she has had seizures a s a child and was on medications from age 9 to 15. After that, she has not had frequent sei zures but at least 1 after the of her first daughter and another perioperative seizure after a cholecystectomy a few years ago. She also reports 2 grand mal seizures which were u nwitnessed in 2012. She has been doing well since then. Her other major complaints include t witching in her upper body but does not involve her legs. She can go by months without any a nd sometimes can have about 20 times a minute. She had an EEG in November 2014- was abnormal w ith frequent spike and wave discharges of a generalized field and found to be consistent wit h primary generalized epilepsy. There was also an episode of subtle myoclonus which was thou ght to be associated with spike and wave discharges during photic stimulation. Has had MRI b rain done at [facility] in June 2015 - uploaded in [facility] including report. [place]. On followup today, Last seen on 12/17/16. A friend brought her. Reports that she has taken Topamax 25mg 2 tabs every morning but it does not seem to be hel ping. Continues to have headaches. Last migraine was yesterday - lasted 5 hours. Typically a nywhere from 2 hours to 12 hours. No major side effects from Topamax. She is also c/o poor memory. She is also feeling isolated and does not wish to go out due t o this. Her daughter used to be her caregiver but she is moving to [place]. She is getting a n ew caregiver. c/o falls - does not feel her feet and walks barefeet at home. Feels the floor is slippery for her. Fell 10-12 times in the past month. No major injury. IMPRESSION Primary idiopathic epilepsy with myoclonic jerks - stable since November 2015. Vertigo/migrainous dizziness and migraine aura. Deconditioning - obesity and peripheral neuropathy - contributing to falls Recommendations Continue Gabapentin 900mg tid for epilepsy Prophylaxis for migraine with aura/dizziness Tab topamax 25mg (for possible migraine aura, migraine and vertigo) Increase to 2 tabs morning and 1 tab at night for a week Then increase to 2 tabs twice a day (new prescription sent) Keep a migraine log Talk to PCP about referral to PT to evaluate gait and balance Written instructions were provided. Safety and legal instructions I explained to the patient that per [place] State law she should not to drive a vehicle or vessel of any kind, swim, bathe alone, boat, scuba, work on heights, operate heavy machines or cook on open fire for six (6) months from any event of loss of consciousness, altered sacha reness or loss of body control. Other safety issues addressed - including laying on side if she has a seizure. If unstable appearing or seizure continues more than 4 minutes, to call 911. To keep a seizure log. Memory impairment may be due to h/o severe illness/comatose state in 2013 as well as use of psychoactive medications such as cymbalta and lorazepam. We will obtain WACE test (memory t est ) at next visit Follow up in 4 months or earlier if she has a breakthrough seizure. I spent more than 25 minutes face to face with the patient with more than 50% of the time w as spent in counseling and plan coordination. in this encounter Plan of Treatment +--------+ + + + + | Date | Type | Specialty | Care Team | Description | +--------+ + + + + | 08/04/ | Office | Pulmonology | [facility] [place], | | | 2017 | Visit | | Esperanza Arora, | | | | | | MD [address] | | | | | | [place] [address] | | | | | | [phone] | | | | | | | | +--------+ + + + + | 08/22/ | Procedure | Neurology | | | | 2017 | visit | | | | +--------+ + + + + | 08/22/ | Office | Neurology | Elaine Andrews, | | | 2017 | Visit | | MD [address] | | | | | | [place] | | | | | | [address] | | | | | | | | +--------+ + + + + | 11/27/ | Office | Pulmonology | Matt, | | | 2017 | Visit | | Esperanza Arora, | | | | | | [address] | | | | | | [place] [address] | | | | | | [phone] | | | | | | | | +--------+ + + + + as of this encounter Visit Diagnoses + + | Diagnosis | + + | Primary generalized epilepsy, major - Primary | + + | Generalized convulsive epilepsy without mention of intractable epilepsy | + + | Vertigo | + + | Dizziness and giddiness | + + | Migraine with aura and without status migrainosus, not intractable | + + | Migraine with aura, without mention of intractable migraine without mention of status | | migrainosus | + +
--- OUTSIDE RECORDS SUMMARY | ~2017-07-16 | XMS | Encounter Summary ---
Demographics + + + | Address | [address] | | | [place] [address] | + + + | Home Phone | | + + + | Preferred Language | Unknown | + + + | Marital Status | | + + + | Jainism Affiliation | Unknown | + + + | Race | Unknown | + + + | Ethnic Group | Unknown | + + + Author + + + | Author | [facility] | + + + | Organization | [facility] [employer] [employer] [facility] | + + + | Address | Unknown | + + + | Phone | Unavailable | + + + Support + + +---------+ + | Name | Relationship | Address | Phone | + + +---------+ + | Amado Araiza | ECON | Unknown | | + + +---------+ + Care Team Providers + +------+ + | Care Trauma Program Manager Name | Role | Phone | + +------+ + | Mynor Kam MD | PCP | | + +------+ + Encounter Details +--------+ + + + + | Date | Type | Department | Care Team | Description | +--------+ + + + + | 05/28/ | Telephone | [facility] | Sharee Wilkinson, | | | 2017 | | Pulmonology [address] | DIRECTOR OF STRATEGIC SOURCING | | | | | [address] | | | | | | [place] | | | | | | [address] | | | | | | [phone] | | | +--------+ + + + [...] Dr | | | | | | [place] [address] | | | | | | [phone] | | | | | | | [...] [place] | | | | | | [address] | | | | | | | | +--------+ + + + + | 11/27/ | Office | Pulmonology | Matt, | | | 2017 | Visit | | Esperanza Arora, | | | | | | MD [address] | | | | | | [place] [address] | | | | | | [phone] | | | | | | | | +--------+ + + + + as of this encounter Visit Diagnoses Not on filein this encounter"
--- OUTSIDE RECORDS SUMMARY | ~2017-07-16 | XMS | Encounter Summary ---
Demographics + + + | Address | [address] | | | [place] [address] | + + + | Home Phone | | + + + | Preferred Language | Unknown | + + + | Marital Status | | + + + | Oriental Orthodox Affiliation | Unknown | + + + | Race | Unknown | + + + | Ethnic Group | Unknown | + + + Author + + + | Author | [employer] | + + + | Organization | [facility] [facility] | + + + | Address | Unknown | + + + | Phone | Unavailable | + + + Support + + +---------+ + | Name | Relationship | Address | Phone | + + +---------+ + | Amado Araiza | ECON | Unknown | | + + +---------+ + Care Team Providers + +------+ + | Care Gas Meter Installer Helper Name | Role | Phone | + +------+ + | Mynor Kam MD | PCP | | + +------+ + Reason for Visit +--------+ + | Reason | Comments | +--------+ + | Other | scheduling | +--------+ + Encounter Details +--------+ + + + + | Date | Type | Department | Care Team | Description | +--------+ + + + + | 04/22/ | Telephone | [facility] | Audelia Maldonado, | Other (scheduling ) | | 2017 | | [facility] | RN | | | | | [address] | | | | | | [place] | | | | | | [address] | | | | | | [phone] | | | +--------+ + + + [...] | | | | | [place] [address] | | | | | | [phone] | | | | | | | [...] [place] | | | | | | [id number] | | | | | | | | +--------+ + + + + | 11/27/ | Office | Pulmonology | Matt, | | | 2017 | Visit | | Esperanza Arora, | | | | | | MD [address] | | | | | | [place] [address] | | | | | | [phone] | | | | | | | | +--------+ + + + + as of this encounter Visit Diagnoses Not on filein this encounter"
--- OUTSIDE RECORDS SUMMARY | ~2017-07-16 | XMS | Clinical Summary ---
Demographics + + + | Address | [address] | | | [place] ADDRESS | | | [place] [address] | + + + | Home Phone | | + + + | Preferred Language | Unknown | + + + | Marital Status | Unknown | + + + | Presybeterian Affiliation | Unknown | + + + | Race | Unknown | + + + | Ethnic Group | Unknown | + + + Author + + + | Author | [facility] | | | and [place] | + + + | Organization | [facility] | | | and [place] | + + + | Address | Unknown | + + + | Phone | Unavailable | + + + Care Team Providers + +------+ + | Care Cemetery Warden Name | Role | Phone | + [...]
--- OUTSIDE RECORDS SUMMARY | ~2017-07-16 | XMS | Encounter Summary ---
Demographics + + + | Address | [address] | | | [place] [address] | + + + | Home Phone | | + + + | Preferred Language | Unknown | + + + | Marital Status | | + + + | Synagogue Affiliation | Unknown | + + + | Race | Unknown | + + + | Ethnic Group | Unknown | + + + Author + + + | Author | [employer] [facility] | + + + | Organization | [facility] [employer] [facility] | + + + | Address | Unknown | + + + | Phone | Unavailable | + + + Support + + +---------+ + | Name | Relationship | Address | Phone | + + +---------+ + | Amado Araiza | ECON | Unknown | | + + +---------+ + Care Team Providers + +------+ + | Care Technical Support Director Name | Role | Phone | + +------+ + | Mynor Kam MD | PCP | | + +------+ + Encounter Details +--------+ + + + + | Date | Type | Department | Care Team | Description | +--------+ + + + + | 05/28/ | Telephone | [facility] | Sharee Wilkinson, | | | 2017 | | Pulmonology [address] | FOAM RUBBER MOLDER | | | | | [address] | | | | | | [place] | | | | | | [address] | | | | | | [phone] | | | +--------+ + + + [...] Dr | | | | | | [place] [address] | | | | | | [phone] | | | | | | | [...] [place] | | | | | | [address] | | | | | | | | +--------+ + + + + | 11/27/ | Office | Pulmonology | Matt, | | | 2017 | Visit | | Esperanza Arora, | | | | | | MD [address] | | | | | | [place] [address] | | | | | | [phone] | | | | | | | | +--------+ + + + + as of this encounter Visit Diagnoses Not on filein this encounter"
--- OUTSIDE RECORDS SUMMARY | ~2017-07-16 | XMS | Clinical Summary ---
Demographics + + + | Address | [address] | | | [place] [address] | + + + | Home Phone | | + + + | Preferred Language | Unknown | + + + | Marital Status | | + + + | Congregational Affiliation | Unknown | + + + | Race | Unknown | + + + | Ethnic Group | Unknown | + + + Author + + + | Author | [employer] | + + + | Organization | [facility] [employer] [facility] | + + + | Address | Unknown | + + + | Phone | Unavailable | + + + Support + + +---------+ + | Name | Relationship | Address | Phone | + + +---------+ + | Amado Salmon | ECON | Unknown | | + + +---------+ + Care Team Providers + +------+ + | Care Law Enforcement Officer Name | Role | Phone [...] + +---------+------+------+-------+ | insulin lispro, | Inject into the | | | | | Activ | | human, (HUMALOG) 100 | skin 2 (two) times | | | | | e | | UNIT/ML injection | daily as needed. | | | | | | | | Sliding scale | | | | | | + + + +---------+------+------+-------+ | LORazepam (ATIVAN) | Take 1 mg by mouth | | | | | Activ | | 0.5 MG tablet | daily. | | | | | e | + + + +---------+------+------+-------+ | gabapentin [...] e | + + + +---------+------+------+-------+ | beclomethasone | Inhale 1 puff into | 1 | 3 | 03/0 | | Activ | | (QVAR) 80 MCG/ACT | the lungs 2 (two) | Inhaler | | 7/20 | | e | | inhaler | times daily. | | | 16 | | | + + + +---------+------+------+-------+ | albuterol | Take 3 mLs by | 336 mL | 11 | 06/2 | | Activ | | (PROVENTIL) (2.5 | nebulization every 6 | | | 8/20 | | e | | MG/3ML) 0.083% | (six) hours as | | | 16 | | | | nebulizer | needed for [...] tablet by | 30 | 11 | / | | Activ | | (SINGULAIR) 10 [...] mg by mouth. | | 0 | 12/06 | | Activ | | (CYMBALTA) [address] | | | | 0/20 | | e | | capsule | | | | 17 | | | + + + +---------+------+------+-------+ | topiramate | Take 2 tab morning | 120 | 4 | 03/2 | | Activ | | (TOPAMAX) 25 MG | and 1 tab at night | tablet | | 3/20 | | e | | tabletIndications: | for a week, then | | | 18 | | | | Vertigo, Migraine | take 2 tab twice a | | | | | | | with aura and | day | | | | | | | without status | | | | | | | | migrainosus, not | | | | | | | | intractable | | | | | | | + + + +---------+------+------+-------+ | azithromycin | TAKE TWO TABLETS BY | 6 | 0 | 03/2 | | Activ | | (ZITHROMAX) 250 MG | MOUTH NOW then ONE | tablet | | 3/20 | | e | | tabletIndications: | TABLET DAILY DAY 2-5 | | | 18 | | | | Moderate persistent | | | | | | | | asthma without | | | | | | | | complication | | | | | | | + + + +---------+------+------+-------+ | ibuprofen (MOTRIN) | Take 800 mg by mouth | | | | 03/2 | Disco | | 800 MG tablet | every 6 (six) hours | | | | 06/24 | ntinu | | | as needed for Pain. | | | | 18 | ed | + + + +---------+------+------+-------+ | fluticasone | Inhale 1 puff into | 2 each | 6 | 03/2 | 03/2 | Expir | | furoate-vilanterol | the lungs daily. | | | 05/27 | 05/27 | ed | | (BREO ELLIPTA) | | | | 17 | 18 | | | 100-25 mcg/inh | | | | | | | | inhalerIndications: | | | | | | | | Moderate persistent | | | | | | | | asthma without | | | | | | | | complication | | | | | | | + + + +---------+------+------+-------+ | azithromycin | TAKE TWO TABLETS BY | 6 | 0 | 03/2 | 03/2 | Disco | | (ZITHROMAX) 250 MG | MOUTH NOW then ONE | tablet | | /20 | 20 | ntinu | | tabletIndications: | TABLET DAILY DAY 2-5 | | | 17 | 18 | ed | | Moderate persistent | | | | | | | | asthma without | | | | | | | | complication | | | | | | | + + + +---------+------+------+-------+ | topiramate | Take 1 tab every | 60 | 5 | 12/06 | 06/06 | Disco | | (TOPAMAX) 25 MG | morning for a week | tablet | | 05/27 | 06/24 | ntinu | | tabletIndications: | and then take 2 tabs | | | 17 | 18 | ed | | Vertigo, Migraine | every morning. | | | | | | | with aura and | | | | | | | | without status | | | | | | | | migrainosus, not | | | | | | | | intractable | | | | | | | [...] restrictive lung disease, | | followed by tube buffer. She is quite sedentary because of | [...] returns to | | her PCP and Tax Auditor, she'll be seen again if clinically | [...] & Plan: Palpitations. Clinically | | benign.&-day Silk Printer, 06/01/2015: sinus rhythm, 64-168, | | averaging [...] + | Acute respiratory distress syndrome (ARDS) (HCC) | 05/06/2013 | + + + | [...] + + | 07/14/ | Telephone | | Sharee Wilkinson, | | | 2017 | | | PHYSICIAN RECRUITER | | +--------+ + + + + | 06/27/ | Office | | Matt | ARDS survivor | | 2017 | Visit | | Esperanza Arora, | (Primary Dx); | | | | | MD | Restrictive lung | | | | | | disease; Moderate | | | | | | persistent asthma | | | | | | without | | | | | | complication; | | | | | | Chronic respiratory | | | | | | failure with hypoxia | | | | | | ([facility] COOPER | | | | | | (obstructive sleep | | | | | | apnea); | | | | | | Gastroesophageal | | | | | | reflux disease | | | | | | without esophagitis; | | | | | | Frequent falls | +--------+ + + + + | 06/27/ | Office | | Elaine Andrews, | Primary generalized | | 2018 | Visit | | MD | epilepsy, major | | | | | | (Primary Dx); | | | | | | Vertigo; Migraine | | | | | | with aura and | | | | | | without status | | | | | | migrainosus, not | | | | | | intractable | +--------+ + + + + | 05/28/ | Telephone | | Sharee Wilkinson, | | | 2017 | | | PHYSICIAN RECRUITER | | +--------+ + + + + | 04/22/ | Telephone | | Audelia Maldonado, | Other (scheduling ) | | 2017 | | | RN | | +--------+ + + + + [...] + + + | Blood Pressure | 150/78 | 06/27/2017 3:05 PM PDT | + + + + | Pulse | 103 | 06/27/2017 2:43 PM PDT | + + + + | Temperature | 36.8 C (98.2 F) | 06/27/2017 2:40 PM PDT | + + + + | Respiratory Rate | 18 | 11/07/2016 3:43 PM PDT | + + + + | Oxygen Saturation | 96% | 06/27/2017 2:43 PM PDT | + + + + | Inhaled Oxygen | - | - | | Concentration | | | + + + + | Weight | 140.4 kg (309 lb 9.6 | 06/27/2017 2:43 PM PDT | | | oz) | | + + + + | Height | 167.6 cm (5' 6") | 06/27/2017 2:43 PM PDT | + + + + | Body Mass Index | 49.97 | 06/27/2017 2:43 PM PDT | + + + + Plan of Treatment +--------+ + + + + | Date | Type | Specialty | Care Team | Description | +--------+ + + + + | 08/04/ | Office | | Matt, | | | 2018 | Visit | | Esperanza Arora, | | | | | | MD [address] | | | | | | [place] [address] | | | | | | [phone] | | | | | | | | +--------+ + + + + | 08/22/ | Procedure | | | | | 2017 | visit | | | | +--------+ + + + + | 08/22/ | Office | | Elaine Andrews, | | | 2017 | Visit | | MD [address] | | | | | | [place] | | | | | | [address] | | | | | | | | +--------+ + + + + | 11/27/ | Office | | Matt, | | | 2017 | Visit | | Esperanza Arora, | | | | | | [address] | | | | | | [place] [address] | | | | | | [phone] | | | | | | | [...] | | | | Screening (Pap) | 6 | | | + + + + [...] +------+-------+ + | MEDICARE | MEDICA | xxxxxxxxxx | | | [address] | | | RE | | | | [place] [address] | | | IP-OP | | | | | + +--------+ +------+-------+ + | MEDICAID | EASTER | [id number] | | | [address] | | | N | | | | [place], [place] | | | [place] | | | | [address] | | | REVENUE SPECIALIST | | | | | + +--------+ [...] | Self | [birth year] Home: | [address] | | | al/Greg | | 1966 | [phone] | [place] | | | fausto | | | [phone] | [phone] | + +--------+ +--------+ + +
--- OUTSIDE RECORDS SUMMARY | ~2017-07-16 | XMS | Encounter Summary ---
Demographics + + + | Address | [address] | | | [place] [address] | + + + | Home Phone | | + + + | Preferred Language | Unknown | + + + | Marital Status | | + + + | Jainism Affiliation | Unknown | + + + | Race | Unknown | + + + | Ethnic Group | Unknown | + + + Author + + + | Author | [facility] [employer] | + + + | Organization | [facility] [employer] | + + + | Address | Unknown | + + + | Phone | Unavailable | + + + Support + + +---------+ + | Name | Relationship | Address | Phone | + + +---------+ + | Amado Araiza | ECON | Unknown | | + + +---------+ + Care Team Providers + +------+ + | Care Senior Oracle Database Developer Name | Role | Phone | + +------+ + | Mynor Kam MD | PCP | | + +------+ + Encounter Details +--------+ + + + + | Date | Type | Department | Care Team | Description | +--------+ + + + + | 07/14/ | Telephone | [facility] | Sharee Wilkinson, | | | 2017 | | Pulmonology [address] | TILE APPLICATOR | | | | | [address] | | | | | | [place] | | | | | | [address] | | | | | | [phone] | | | +--------+ + + + [...] Dr | | | | | | [place] [address] | | | | | | [phone] | | | | | | | [...] [place] | | | | | | [address] | | | | | | | | +--------+ + + + + | 11/27/ | Office | Pulmonology | Matt, | | | 2017 | Visit | | Esperanza Arora, | | | | | | MD [address] | | | | | | [place] [address] | | | | | | [phone] | | | | | | | | +--------+ + + + + as of this encounter Visit Diagnoses Not on filein this encounter"
--- OUTSIDE RECORDS SUMMARY | ~2017-07-16 | XMS | Clinical Summary ---
Demographics + + + | Address | [address] | | | [place] ADDRESS | | | [place] [address] | + + + | Home Phone | | + + + | Preferred Language | Unknown | + + + | Marital Status | Unknown | + + + | Church Affiliation | Unknown | + + + | Race | Unknown | + + + | Ethnic Group | Unknown | + + + Author + + + | Author | [facility] | | | and [place] | + + + | Organization | [facility] | | | and [place] | + + + | Address | Unknown | + + + | Phone | Unavailable | + + + Care Team Providers + +------+ + | Care Press Department Manager Name | Role | Phone | [...]
--- OUTSIDE RECORDS SUMMARY | ~2017-07-16 | XMS | Clinical Summary ---
Demographics + + + | Address | [address] | | | [place] [address] | + + + | Home Phone | | + + + | Preferred Language | Unknown | + + + | Marital Status | Unknown | + + + | Advent Affiliation | Unknown | + + + | Race | Unknown | + + + | Ethnic Group | Unknown | + + + Author + + + | Author | [facility] | + + + | Organization | [facility] | + + + | Address | Unknown | + + + | Phone | Unavailable | + + + Care Team Providers + +------+ + | Care Imaging Technologist Name | Role | Phone | + +------+ + PP | Unavailable | + +------+ + Source Comments FAB is fully live on both [facility] Amb[facility] and [facility] InPatient.[facility] Allergies Not on File Current Medications Not [...]
--- OUTSIDE RECORDS SUMMARY | ~2017-07-16 | XMS | Encounter Summary ---
Demographics + + + | Address | [address] | | | [place] [address] | + + + | Home Phone | | + + + | Preferred Language | Unknown | + + + | Marital Status | | + + + | Latter-Day Affiliation | Unknown | + + + | Race | Unknown | + + + | Ethnic Group | Unknown | + + + Author + + + | Author | [facility] | + + + | Organization | [facility] [employer] | + + + | Address | Unknown | + + + | Phone | Unavailable | + + + Support + + +---------+ + | Name | Relationship | Address | Phone | + + +---------+ + | Amado Araiza | ECON | Unknown | | + + +---------+ + Care Team Providers + +------+ + | Care Contract Associate Manager Name | Role | Phone | [...] + + | 06/27/ | Office | [facility] | Matt, | ARDS survivor | | 2018 | Visit | Pulmonology [address] | Esperanza Arora, | (Primary Dx); | | | | [place] | MD [address] | Restrictive lung | | | | [place], [place] | [place] [address] | disease; Moderate | | | | [address] | [phone] | persistent asthma | | | | [phone] | | without | | | | [...] COOPER and obesity, who was admitted to [facility] from 05/05/13 to 05/14/13 for acut e respiratory failure from ARDS due to H1N1 infection. Her course was long and difficult -sh e eventually underwent a tracheostomy insertion by Dr Bright Teixeira), and then she was eventua lly moved to an acute Rehab facility close to [place] ([facility]). She reports abi t she had a horrible time here. After close to a week of staying in the facility, her trache ostomy tube managed to fall out and she suffered from hypoxemia with bilateral lung atelecta sis. She was brought to [facility] where they put her trach back. She [...] Noted Poorly controlled diabetes mellitus ([facility]) Morbid obesity with BMI of 45.0-49.9, adult Influenza A 05/02/2013 Abnormal LFTs (liver function tests) 05/05/2013 Acute respiratory distress syndrome (ARDS) ([facility]) 05/06/2013 possible Secondary bacterial pneumonia 05/07/2013 Asthma 06/15/2013 COOPER (obstructive sleep apnea) 06/15/2013 ARDS survivor 06/15/2013 Chronic respiratory failure ([facility]) 10/07/2013 Restrictive lung disease 01/17/2014 Gastroesophageal reflux disease without esophagitis 11/01/2014 Status post tracheostomy ([facility]) 03/06/2015 Epilepsy ([facility]) 05/18/2015 Precordial pain 05/31/2015 Heart palpitations 05/31/2015 Moderate persistent asthma without complication 10/03/2015 Primary generalized epilepsy, major 11/24/2015 Resolved Ambulatory Problems Diagnosis Date Noted Acute respiratory failure with hypoxia 05/04/2013 Past Medical History: Diagnosis Date Acute respiratory failure with hypoxia 05/04/2013 Asthma Bronchitis DVT (deep venous thrombosis) ([facility]) Dvt femoral (deep venous thrombosis) ([facility]) Epilepsy ([facility]) Fibromyalgia Fibromyalgia Hypertension Influenza A [...] Procedure: TRACHEOSTOMY; Surgeon: Fabián Novoa MD; Location: [facility] MAIN OR; Service: ENT; Laterality: [...] the past. S he has lived in [place] most of her life. She now lives in [place]. She lived in [place] for two years when she was younger. [...] prepare herself for when she goes to [facility] next year. 2. Restrictive lung disease [...] Gutierrez MD Pulmonary and Critical Care Medicine [facility] [address] , [place] [address] Peter Palm, NANOSYSTEMS ENGINEER - 06/27/2017 2:45 PM PDT3 step testing [...] Dr | | | | | | [place] [address] | | | | | | [phone] | | | | | | | | +--------+ + + + + | 08/22/ | Procedure | Neurology | | | | 2017 | visit | | | | +--------+ + + + + | 08/22/ | Office | Neurology | Elaine Andrews, | | 2017 | Visit | | MD Kim Patterson | | | | | | [address] [place] | | | | | | [address] | | | | | | | | +--------+ + + + + | 11/27/ | Office | Pulmonology | Matt, | | | 2017 | Visit | | Esperanza Arora, | | | | | | [address] | | | | | | [place] [address] | | | | | | [phone] | | | | | | | [...]
--- OUTSIDE RECORDS SUMMARY | ~2017-07-16 | XMS | Clinical Summary ---
Demographics + + + | Address | [address] | | | [place] [address] | + + + | Home Phone | | + + + | Preferred Language | Unknown | + + + | Marital Status | Unknown | + + + | Buddhism Affiliation | Unknown | + + + | Race | Unknown | + + + | Ethnic Group | Unknown | + + + Author + + + | Author | [facility] | + + + | Organization | [facility] | + + + | Address | Unknown | + + + | Phone | Unavailable | + + + Care Team Providers + +------+ + | Care Pharmacy Operations Specialist Name | Role | Phone | + +------+ + PP | Unavailable | + +------+ + Source Comments FAB is fully live on both [facility] Amb[facility] and [facility] InPatient.[facility] Allergies Not on File Current Medications [...]
--- OUTSIDE RECORDS SUMMARY | ~2017-07-16 | XMS | Encounter Summary ---
Demographics + + + | Address | [address] | | | [place] [address] | + + + | Home Phone | | + + + | Preferred Language | Unknown | + + + | Marital Status | | + + + | Zoroastrianism Affiliation | Unknown | + + + | Race | Unknown | + + + | Ethnic Group | Unknown | + + + Author + + + | Author | [facility] | + + + | Organization | [facility] | + + + | Address | Unknown | + + + | Phone | Unavailable | + + + Support + + +---------+ + | Name | Relationship | Address | Phone | + + +---------+ + | Amado Araiza | ECON | Unknown | | + + +---------+ + Care Team Providers + +------+ + | Care Director Of Curriculum And Instruction Name | Role | Phone | [...] + + | 06/27/ | Office | [facility] | Matt, | ARDS survivor | | 2018 | Visit | Pulmonology [address] | Esperanza Arora, | (Primary Dx); | | | | [address] | [address] | Restrictive lung | | | | [place], [place] | [place] [address] | disease; Moderate | | | | [address] | [phone] | persistent asthma | | | | [phone] | | without | | | | [...] COOPER and obesity, who was admitted to [facility] from 05/05/13 to 05/14/13 for acut e respiratory failure from ARDS due to H1N1 infection. Her course was long and difficult -sh e eventually underwent a tracheostomy insertion by Dr Bright Teixeira), and then she was eventua lly moved to an acute Rehab facility close to [place] ([facility]). She reports abi t she had a horrible time here. After close to a week of staying in the facility, her trache ostomy tube managed to fall out and she suffered from hypoxemia with bilateral lung atelecta sis. She was brought to [facility] where they put her trach back. [...] Diagnosis Date Noted Poorly controlled diabetes mellitus ([facility]) Morbid obesity with BMI of 45.0-49.9, adult Influenza A 05/02/2013 Abnormal LFTs (liver function tests) 05/05/2013 Acute respiratory distress syndrome (ARDS) ([facility]) 05/06/2013 possible Secondary bacterial pneumonia 05/07/2013 Asthma 06/15/2013 COOPER (obstructive sleep apnea) 06/15/2013 ARDS survivor 06/15/2013 Chronic respiratory failure ([facility]) 10/07/2013 Restrictive lung disease 01/17/2014 Gastroesophageal reflux disease without esophagitis 11/01/2014 Status post tracheostomy ([facility]) 03/06/2015 Epilepsy ([facility]) 05/18/2015 Precordial pain 05/31/2015 Heart palpitations 05/31/2015 Moderate persistent asthma without complication 10/03/2015 Primary generalized epilepsy, major 11/24/2015 Resolved Ambulatory Problems Diagnosis Date Noted Acute respiratory failure with hypoxia 05/04/2013 Past Medical History: Diagnosis Date Acute respiratory failure with hypoxia 05/04/2013 Asthma Bronchitis DVT (deep venous thrombosis) ([facility]) Dvt femoral (deep venous thrombosis) ([facility]) Epilepsy ([facility]) Fibromyalgia Fibromyalgia Hypertension Influenza A (H1N1) 05/02/2013 [...] Procedure: TRACHEOSTOMY; Surgeon: Fabián Novoa MD; Location: [facility] MAIN OR; Service: ENT; Laterality: N/A; move [...] of her life. She now lives in [place]. She lived in [place] for two years when she was younger. [...] prepare herself for when she goes to [facility] next year. 2. Restrictive lung disease [...] Gutierrez MD Pulmonary and Critical Care Medicine [facility] [address] [place] [address] Peter Palm, FINANCIAL INSTITUTION TREASURER - 06/27/2017 2:45 PM PDT3 step testing [...] Dr | | | | | | [place] [address] | | | | | | [phone] | | | | | | | | +--------+ + + + + | 08/22/ | Procedure | Neurology | | | | 2017 | visit | | | | +--------+ + + + + | 08/22/ | Office | Neurology | Elaine Andrews, | | 2017 | Visit | | MD [address] | | | | | | [address] [place] | | | | | | [address] | | | | | | | | +--------+ + + + + | 11/27/ | Office | Pulmonology | Matt, | | | 2017 | Visit | | Esperanza Arora, | | | | | | [address] | | | | | | [place] [address] | | | | | | [phone] | | | | | | | [...]
--- OUTSIDE RECORDS SUMMARY | ~2017-07-16 | XMS | Encounter Summary ---
Demographics + + + | Address | [address] | | | [place] [address] | + + + | Home Phone | | + + + | Preferred Language | Unknown | + + + | Marital Status | | + + + | Nondenominational Affiliation | Unknown | + + + | Race | Unknown | + + + | Ethnic Group | Unknown | + + + Author + + + | Author | [facility] | + + + | Organization | [facility] | + + + | Address | Unknown | + + + | Phone | Unavailable | + + + Support + + +---------+ + | Name | Relationship | Address | Phone | + + +---------+ + | Amado Araiza | ECON | Unknown | | + + +---------+ + Care Team Providers + +------+ + | Care Post Office Clerk Name | Role | Phone | [...] | | Other | Dmitri, | MD Eliane | | | | | pulmonary | Joseline K, | [address] | | | | | insufficienc | PA-C [address] | [address] | | | | | y, not | [address] | [place] | | | | | elsewhere | Ave | [address] Phone: | | | | | classified | [place], | [phone] | | | | | Memory loss | [place] | Fax: | | | | | | [address] | [phone] | | | | | | Phone: | | | | | | | [phone] | | | | | | | Fax: | | | | | | | [phone] | | + +--------+ + + + + Encounter Details +--------+---------+ + + + | Date | Type | Department | Care Team | Description | +--------+---------+ + + + | 06/27/ | Office | [facility] | Elaine Andrews, | Primary generalized | | 2018 | Visit | [facility] | [address] | epilepsy, major | | | | [address] | [address] [place] | (Primary Dx); | | | | [place] | [address] | Vertigo; Migraine | | | | [address] | | with aura and | | | | [phone] | | without status | | | [...] a 51 yo R handed lady from [place], [place] for follow up of seizure disorder. Last s een on 11/24/15. She has h/o DM type 2, morbid obesity, osteoarthritis, fibromyalgia, H1N1 pneumonia 2013, A RDS, seen at [facility] following complications and being comatose. She reports h/o seizures as a child - age 9 - grandmal seizures - seen at [facility] - on phenobarbital for 7 years[address] by Dr De Jesus at [place] at age 15. Did not dejuan nue medications. She had one grandmal after of her first daughter - 31 years ago. Was tired after a [place] bus drive from [place] to [place]. She has another perioperative seizure a few [...] sleep deprived EEG- 11/11/14 - done at [facility] at [place] and read by Linh Fernandez ([facility]). Was not available during interview but faxed to us after. "Abnormal awake and drowsy EEG - frequent spike and wave discharges with a generalized fiel d though consistently with a left zqhhzh-nkhhhl-comocqya lead-in, with activation during hyp erventilation and [...] memory loss since she was hospitalized at [facility] in 2013. F eels it has worsened. [...] her caregiver but she is moving to [place]. She is getting a n ew caregiver. [...] Face symmetric. No pronator drift. Good hand grant writer HF 3/5 with difficulty b/l KE , KF, DF 5/5 Mildly wide based and slow gait with use of cane Assessment and Plan: Gilma Araiza is a 51 year-old right-handed lady with a history of diabetes, morbid obesity , fibromyalgia, history of ARDS from H1N pneumonia in 2013- status post tracheostomy and rep ortedly comatose and treated at [facility]. She reports that she has had seizures [...] Center in June 2015 - uploaded in [facility] including report. Marla canada. On followup [...] her caregiver but she is moving to [place]. She is getting a n ew caregiver. [...] I explained to the patient that per [place] State law she should not to drive [...] | 08/04/ | Office | Pulmonology | [facility], | | | 2017 | Visit | | Esperanza Arora, | | | | | | MD [address] | | | | | | [place] [address] | | | | | | [phone] | | | | | | | | +--------+ + + + + | 08/22/ | Procedure | Neurology | | | | 2017 | visit | | | | +--------+ + + + + | 08/22/ | Office | Neurology | Elaine Andrews, | | | 2017 | Visit | | MD [address] | | | | | | [address] [place] | | | | | | [address] | | | | | | | | +--------+ + + + + | 11/27/ | Office | Pulmonology | Matt, | | | 2017 | Visit | | Esperanza Arora, | | | | | | [address] | | | | | | [place] [address] | | | | | | [phone] | | | | | | | [...]
--- OUTSIDE RECORDS SUMMARY | ~2017-07-16 | XMS | Encounter Summary ---
Demographics + + + | Address | [address] | | | [place] [address] | + + + | Home Phone | | + + + | Preferred Language | Unknown | + + + | Marital Status | | + + + | Sikhism Affiliation | Unknown | + + + | Race | Unknown | + + + | Ethnic Group | Unknown | + + + Author + + + | Author | [facility] | + + + | Organization | [facility] | + + + | Address | Unknown | + + + | Phone | Unavailable | + + + Support + + +---------+ + | Name | Relationship | Address | Phone | + + +---------+ + | Amado Araiza | ECON | Unknown | | + + +---------+ + Care Team Providers + +------+ + | Care A Operator Name | Role | Phone | [...] (scheduling ) | | 2017 | | [facility] | RN | | | | | [address] | | | | | | [place] | | | | | | [address] | | | | | | [phone] | | | +--------+ + + + [...] | | | | | [place] [address] | | | | | | [phone] | | | | | | | [...] [place] | | | | | | [id number] | | | | | | | | +--------+ + + + + | 11/27/ | Office | Pulmonology | Matt, | | | 2017 | Visit | | Esperanza Arora, | | | | | | MD [address] | | | | | | [place] [address] | | | | | | [phone] | | | | | | | | +--------+ + + + + as of this encounter Visit Diagnoses Not on filein this encounter"
--- OUTSIDE RECORDS SUMMARY | ~2017-07-16 | XMS | Clinical Summary ---
Demographics + + + | Address | [address] | | | [place] [address] | + + + | Home Phone | | + + + | Preferred Language | Unknown | + + + | Marital Status | | + + + | Yazidism Affiliation | Unknown | + + + | Race | Unknown | + + + | Ethnic Group | Unknown | + + + Author + + + | Author | [facility] | + + + | Organization | [facility] | + + + | Address | Unknown | + + + | Phone | Unavailable | + + + Support + + +---------+ + | Name | Relationship | Address | Phone | + + +---------+ + | Amado Salmon | ECON | Unknown | | + + +---------+ + Care Team Providers + +------+ + | Care Electrotherapist Name | Role | Phone | + [...] restrictive lung disease, | | followed by audio recording engineer. She is quite sedentary because of [...] returns to | | her PCP and Livestock Trader, she'll be seen again if clinically | [...] & Plan: Palpitations. Clinically | | benign.&-day Kickboxing Instructor, 06/01/2015: sinus rhythm, 64-168, | | averaging [...] | | | 2017 | | | STEEPLECHASE JOCKEY | | +--------+ + + + + | 06/27/ | Office | | Matt | ARDS survivor | | 2017 | Visit | | Espreanza Arora, | (Primary Dx); | | | [...] hypoxia | | | | | | ([facility]); COOPER | | | | [...] | | | 2017 | | | STEEPLECHASE JOCKEY | | +--------+ + + + + [...] Dr | | | | | | [place] [address] | | | | | | [phone] | | | | | | | | +--------+ + + + + | 08/22/ | Procedure | | | | | 2017 | visit | | | | +--------+ + + + + | 08/22/ | Office | | Elaine Andrews, | | | 2017 | Visit | | [address] | | | | | | Dr [place] | | | | | | [address] | | | | | | | | +--------+ + + + + | 11/27/ | Office | | Matt, | | | 2017 | Visit | | Esperanza Arora, | | | | | | [address] | | | | | | [place] [address] | | | | | | [phone] | | | | | | | [...] RE | | | | [place] [address] | | | IP-OP | | | | | + +--------+ +------+-------+ + | MEDICAID | [place] | [id number] | | | [address] | | | [address] | | | | [place], [place] | | | [place] | | | | [address] | | | PUPPET ENGINEER | | | | | + +--------+ [...] | [address] | | | [address] | [address] | + +--------+ +--------+ + +
[~2017-07-16 11:49] MED LIST changes: +BREO ELLIPTA I1 EACH INH; +HYDROXYZINE PAM25 MG PO; +NORVASC5 MG PO; +SINGULAIR10 MG; +SINGULAIR10 MG PO; +TOPAMAX25 MG PO
[2017-07-16] MEDS ORDERED: GABAPENTIN300 MG PO (12:07)
[2017-07-16] MEDS ORDERED: LANTUS100 UNITS/ SUB-Q (12:08)
[2017-07-16] MEDS ORDERED: K-TAB ER20 MEQ PO (16:21)
== END 2017-07-16 16:25 | disposition home or self-care (01) ==
LOC: ED 11:49
DX: E87.6 Hypokalemia (principal); E11.9 Type 2 diabetes mellitus without complications; J45.909 Unspecified asthma, uncomplicated; Z79.899 Other long term (current) drug therapy; Z79.4 Long term (current) use of insulin
CPT/HCPCS: 36415; 71045; 80048; 85025; 94640; 96374; 96375; 99284; J2930; J3480

== ENCOUNTER 2017-07-26 00:04 | Emergency (ER) | payer MEDICARE, OTHER ==
[~2017-07-26] VITALS: Ht 167.6 cm; Wt 127.0 kg
--- OUTSIDE RECORDS SUMMARY | ~2017-07-26 | XMS | Clinical Summary ---
Demographics + + + | Address | [address] | | | [place] | | | [place] [address] | + + + | Home Phone | | + + + | Preferred Language | Unknown | + + + | Marital Status | Unknown | + + + | Baptist Affiliation | Unknown | + + + | Race | Unknown | + + + | Ethnic Group | Unknown | + + + Author + + + | Author | [facility] | | | and [place] | + + + | Organization | [facility] | | | and [place] | + + + | Address | Unknown | + + + | Phone | Unavailable | + + + Care Team Providers + +------+ + | Care Wet End Supervisor Name | Role | Phone | + [...] + + + | Hepatitis C | | | | | Screening | 5 | | | + + + + + | Vaccine: | | | | | Dtap/Tdap/Td (1 - | 4 | | | | Tdap) | | | | + + + + + | CERVICAL CANCER | | | | | SCREENING (PAP EVERY | 6 | | | | 3 YEARS 21-64 ) | | | | + + + + + | BREAST CANCER | | | | | SCREENING (MAMM Q2 | 5 | | | | YEARS 50-74) | | | | + + + + + | COLON CANCER | | | | | SCREENING | 5 | | | | (COLONOSCOPY EVERY | | | | | 10 YEARS 50-75) | | | | + + + + + | Vaccine: Influenza | | | | | (Season Ended) | 8 | | | + + + + + Results Not on filefrom Last 3 Months"
--- OUTSIDE RECORDS SUMMARY | ~2017-07-26 | XMS | Clinical Summary ---
Demographics + + + | Address | [address] | | | [place] [address] | + + + | Home Phone | | + + + | Preferred Language | Unknown | + + + | Marital Status | Unknown | + + + | Voodoo Affiliation [...] Team Providers + +------+ + | Care Frame Stripper And Crusher Name | Role | Phone | + +------+ + PP | Unavailable | + +------+ + Source Comments FAB is fully live on both [facility] and [facility] Allergies Not on File Current [...] | | | | (FLU SHOT) | 8 | | | + + + + + Results Not on filefrom Last 3 Months"
--- OUTSIDE RECORDS SUMMARY | ~2017-07-26 | XMS | Encounter Summary ---
Demographics + + + | Address | [address] | | | [place] [address] | + + + | Home Phone | | + + + | Preferred Language | Unknown | + + + | Marital Status | | + + + | Restoration Affiliation | Unknown | + + + | Race | Unknown | + + + | Ethnic Group | Unknown | + + + Author + + + | Author | [facility] | + + + | Organization | [facility] | + + + | Address | Unknown | + + + | Phone | Unavailable | + + + Support + + +---------+ + | Name | Relationship | Address | Phone | + + +---------+ + | Amado Araiza | ECON | Unknown | | + + +---------+ + Care Team Providers + +------+ + | Care Building Trades Teacher Name | Role | Phone | + +------+ + | Mynor Kam MD | PCP | | + +------+ + Encounter Details +--------+ + + + + | Date | Type | Department | Care Team | Description | +--------+ + + + + | 05/28/ | Telephone | [facility] | Sharee Wilkinson, | | | 2017 | | Pulmonology [address] | MANAGER TELEMARKETING | | | | | [address] | | | | | | [place] | | | | | | [address] | | | | | | [phone] | | | +--------+ + + + [...] Dr | | | | | | [place] [address] | | | | | | [phone] | | | | | | | [...] [place] | | | | | | [address] | | | | | | | | +--------+ + + + + | 11/27/ | Office | Pulmonology | Matt, | | | 2017 | Visit | | Esperanza Arora, | | | | | | MD [address] | | | | | | [place] [address] | | | | | | [phone] | | | | | | | | +--------+ + + + + as of this encounter Visit Diagnoses Not on filein this encounter"
--- OUTSIDE RECORDS SUMMARY | ~2017-07-26 | XMS | Encounter Summary ---
Demographics + + + | Address | [address] | | | [place] [address] | + + + | Home Phone | | + + + | Preferred Language | Unknown | + + + | Marital Status | | + + + | Orthodoxy Affiliation | Unknown | + + + | Race | Unknown | + + + | Ethnic Group | Unknown | + + + Author + + + | Author | [facility] | + + + | Organization | [facility] | + + + | Address | Unknown | + + + | Phone | Unavailable | + + + Support + + +---------+ + | Name | Relationship | Address | Phone | + + +---------+ + | Amado Araiza | ECON | Unknown | | + + +---------+ + Care Team Providers + +------+ + | Care Stoneworking Sander Name | Role | Phone | + +------+ + | Mynor Kam MD | PCP | | + +------+ + Reason for Visit + + + | Reason | Comments | + + + | Follow-up | ARDS survivor | + + + Encounter Details +--------+---------+ + + + | Date | Type | Department | Care Team | Description | +--------+---------+ + + + | 06/27/ | Office | [facility] | Matt, | ARDS survivor | | 2018 | Visit | Pulmonology [address] | Esperanza Arora, | (Primary Dx); | | | | [place] | MD [address] | Restrictive lung | | | | [place], [place] | [place] [address] | disease; Moderate | | | | [address] | [phone] | persistent asthma | | | | [phone] | | without | | | | | | complication; | | | | | | Chronic respiratory | | | | | | failure with hypoxia | | | | | | (HCC); COOPER | | | | | | (obstructive sleep | | | | | | apnea); | | | | | | Gastroesophageal | | | | | | reflux disease | | | | | | without esophagitis; | | | | | | Frequent falls | +--------+---------+ + + + Social History [...] in this encounter Instructions Patient Instructions - Esperanza Gutierrez MD - 06/27/2017 2:45 PM PDTSTART RANIT IDINE 150 MG TWICE A DAY. in this encounter Progress Notes Esperanza Gutierrez MD - 06/27/2017 2:45 PM PDTFormatting of this note may be dif ferent from the original. Subjective: Patient ID: Gilma Araiza is a 51 y.o. female with a history of acute respiratory failur e secondary to ARDS from H1N1 influenza infection. She also has obesity, COOPER, DM, a history of DVT and PE (was on warfarin in he past) and asthma. He has a past seizure disorder. HPI Ms Araiza is a pleasant 47 yr old woman who has a past history of DM, asthma, frequent bro nchitis, suspected COOPER and obesity, who was admitted to [facility] from 05/05/13 to 05/14/13 for acut e respiratory failure from ARDS due to H1N1 infection. Her course was long and difficult -sh e eventually underwent a tracheostomy insertion by Dr Bright Teixeira), and then she was eventua lly moved to an acute Rehab facility close to [place] ([facility]). She reports abi t she had a horrible time here. After close to a week of staying in the facility, her trache ostomy tube managed to fall out and she suffered from hypoxemia with bilateral lung atelecta sis. She was brought to [facility] where they put her trach back. She also suffered from a P NA at that time, and she was placed on antibiotics. Interval History Ms Araiza comes in today for a follow up visit. She suffered from the flu or URI about a m onth ago, and was brought to the ED. She was treated with abx, and she eventually got better after this. She continues to be short of breath with minimal exertion, and has suffered fro m severe fatigue. She has had falls at home as well because of weak lower legs. She says abi t she will be participating in PT soon. She also complains of dysphagia lately, though denie s overt aspiration. She has been complaining of headaches, which she thinks may be from the fact that she needs new glasses. She is mostly sedentary, and has not exercised on a regular basis. She can walk about half a block without dyspnea. She intends to be active soon. She has slept fairly, and has been tolerating her CPAP. She continues to have arthralgias, and m yalgias. She remains on Breo Ellipta daily, and uses her albuterol nebulization as needed. She is on CPAP at night, with oxygen. She no longer has daytime O2 because she has not qualified with 3 minute testing. Pls see rest of ROS below. The [...] Diagnosis Date Noted Poorly controlled diabetes mellitus ([facility]) Morbid obesity with BMI of 45.0-49.9, adult Influenza A 05/02/2013 Abnormal LFTs (liver function tests) 05/05/2013 Acute respiratory distress syndrome (ARDS) ([facility]) 05/06/2013 possible Secondary bacterial pneumonia 05/07/2013 Asthma 06/15/2013 COOPER (obstructive sleep apnea) 06/15/2013 ARDS survivor 06/15/2013 Chronic respiratory failure ([facility]) 10/07/2013 Restrictive lung disease 01/17/2014 Gastroesophageal reflux disease without esophagitis 11/01/2014 Status post tracheostomy ([facility]) 03/06/2015 Epilepsy ([facility]) 05/18/2015 Precordial pain 05/31/2015 Heart palpitations 05/31/2015 Moderate persistent asthma without complication 10/03/2015 Primary generalized epilepsy, major 11/24/2015 Resolved Ambulatory Problems Diagnosis Date Noted Acute respiratory failure with hypoxia 05/04/2013 Past Medical History: Diagnosis Date Acute respiratory failure with hypoxia 05/04/2013 Asthma Bronchitis DVT (deep venous thrombosis) ([facility]) Dvt femoral (deep venous thrombosis) ([facility]) Epilepsy ([facility]) Fibromyalgia Fibromyalgia Hypertension Influenza A (H1N1) 05/02/2013 Joint pain Morbid obesity with BMI of 45.0-49.9, adult (HCC) Osteoarthritis Ovarian mass Poorly controlled diabetes mellitus (HCC) Restrictive airway disease Shingles Sleep apnea Unspecified visual disturbance Past Surgical History Procedure Laterality Date APPENDECTOMY BREAST SURGERY CHOLECYSTECTOMY KNEE ARTHROSCOPY left knee TONSILLECTOMY AND ADENOIDECTOMY TOTAL ABDOMINAL HYSTERECTOMY TRACHEAL SURGERY N/A 05/11/2013 Procedure: TRACHEOSTOMY; Surgeon: Fabián Novoa MD; Location: [facility] MAIN OR; Service: ENT; Laterality: N/A; move [...] of her life. She now lives in [place]. She lived in [place] for two years when she was younger. She has no animals at home. She has no known exposures to c hemica/toxic fumes. No exposures to asbestos. She has no hot tubs and no swamp coolers. Objective: Physical Exam Vital signs reviewed. BP 183/83 (BP Location: Left forearm, Patient Position: Sitting) | P ulse 103 | Temp 98.2 F (36.8 C) (Oral) | Ht 1.676 m (5' 6") Comment: Per pt | Wt 140.4 kg (309 lb 9.6 oz) | SpO2 96% | BMI 49.97 kg/m Oxygen saturation noted at 96% on ambient air. No desaturations on ambulation GENERAL: obese, pleasant, cooperative, oriented, not in [...] effort, Equal in expansion, resonant to percussion, breath sounds clear today with prolonged expiratory phase. ABDOMEN: Obese abdomen, NABS, non-tender on palpation, no masses palpated EXTREMITIES: good distal pulses, no cyanosis, no clubbing, no nail abnormalities, with posi tive point tenderness on back and shoulders and upper arms consistent with her diagnosis of fibromyalgia, with non pitting edema on ankles and [...] ant valvular disease. Assessment and Plan: 1. ARDS survivor Ms Araiza is a 51 yr old woman who ARDS survivor due [...] are out of proportion to her PFT. I have encouraged h er to pursue PT, and also a formal exercise regimen. She says that she is willing to do this to prepare herself for when she goes to [facility] next year. 2. Restrictive lung disease She has mild restriction on PFT which I think is more from her weight issues rather than an ILD or ARDS. Last imaging done did not show evidence of pulmonary parenchymal disease. 3. Moderate persistent asthma without complication I think that this is well controlled currently. Continue with Breo daily. May use albuterol nebulizer on a more regular basis during times of poor air quality or if with increasing co ugh. I have given her a rescue dose of azithromycin as she seems to be coming down with an U RI. She has been educated on when to use this and what s/s to watch out for. - azithromycin (ZITHROMAX) 250 MG tablet; TAKE TWO TABLETS BY MOUTH NOW then ONE TABLET STEVEN LY DAY 2-5 Dispense: 6 tablet; Refill: 0 4. Chronic respiratory failure with hypoxia (HCC) She has persistent hypoxemia at night, but has not had any hypoxemia on exertion. She has a n oximeter and I recommend that she continues to monitor this, especially on exertion. 5. COOPER (obstructive sleep apnea) Continue CPAP. 6. Gastroesophageal reflux disease without esophagitis Start Ranitidine 150 mg BID to help with s/s. She has had dysphagia, and has denied overt a spiration. She may need to be evaluated by speech therapy or GI for this. 7. Frequent falls Encouraged to participated in physical therapy. Thank you for allowing us to participate in this patient's care. A return visit has been re quested/scheduled in 4 months for close clinical follow up. The patient was instructed to ca ll our clinic for any questions, and for any concerns regarding worsening dyspnea, cough or change in sputum production. We will see the patient sooner than the recommended follow up d ate, if with any worsening of symptoms. Esperanza Gutierrez MD Pulmonary and Critical Care Medicine [facility] [address] , [place] [address] Peter Palm, CORPORATE STRATEGY ASSOCIATE - 06/27/2017 2:45 PM PDT3 step testing Oximetry Exercise (code) 9476 1 1. At rest on room air: Time:3:06 PM Heart rate:105 Oxygen saturations:98% 2. At exercise on room air: Time:3:07 PM Heart rate:137 Oxygen saturations:90% 3. At exercise with oxygen: Time: Heart rate: Oxygen Saturations: Liters per minute:in this encounter Plan of Treatment +--------+ + + + + | Date | Type | Specialty | Care Team | Description | +--------+ + + + + | 08/04/ | Office | Pulmonology | Matt, | | | 2017 | Visit | | Esperanza Arora, | | | | | | MD [address] | | | | | | [place] [address] | | | | | | [phone] | | | | | | | | +--------+ + + + + | 08/22/ | Procedure | Neurology | | | | 2017 | visit | | | | +--------+ + + + + | 08/22/ | Office | Neurology | Elaine Andrews, | | 2017 | Visit | | MD [address] | | | | | | [address] [place] | | | | | | [address] | | | | | | | | +--------+ + + + + | 11/27/ | Office | Pulmonology | Matt, | | | 2017 | Visit | | Esperanza Arora, | | | | | | [address] | | | | | | [place] [address] | | | | | | [phone] | | | | | | | | +--------+ + + + + as of this encounter Visit Diagnoses + + | Diagnosis | + + | ARDS survivor - Primary | + + | Personal history of other diseases of respiratory system | + + | Restrictive lung disease | + + | Other diseases of lung, not elsewhere classified | + + | Moderate persistent asthma without complication | + + | Unspecified asthma | + + | Chronic respiratory failure with hypoxia (HCC) | + + | Chronic respiratory failure | + + | COOPER (obstructive sleep apnea) | + + | Obstructive sleep apnea (adult) (pediatric) | + + | Gastroesophageal reflux disease without esophagitis | + + | Esophageal reflux | + + | Frequent falls | + + | Personal history of fall | + +
--- OUTSIDE RECORDS SUMMARY | ~2017-07-26 | XMS | Encounter Summary ---
Demographics + + + | Address | [address] | | | [place] [address] | + + + | Home Phone | | + + + | Preferred Language | Unknown | + + + | Marital Status | | + + + | Roman Catholic Affiliation | Unknown | + + + | Race | Unknown | + + + | Ethnic Group | Unknown | + + + Author + + + | Author | [facility] | + + + | Organization | [facility] | + + + | Address | Unknown | + + + | Phone | Unavailable | + + + Support + + +---------+ + | Name | Relationship | Address | Phone | + + +---------+ + | Amado Araiza | ECON | Unknown | | + + +---------+ + Care Team Providers + +------+ + | Care Child Nurse Name | Role | Phone | + +------+ + | Mynor Kam MD | PCP | | + +------+ + Encounter Details +--------+ + + + + | Date | Type | Department | Care Team | Description | +--------+ + + + + | 07/14/ | Telephone | [facility] | Sharee Wilkinson, | | | 2017 | | Pulmonology [address] | S[address] | | | | | [place] | | | | | | [place] | | | | | | [address] | | | | | | [phone] | | | +--------+ + + + [...] Dr | | | | | | [place] [address] | | | | | | [phone] | | | | | | | [...] [place] | | | | | | [address] | | | | | | | | +--------+ + + + + | 11/27/ | Office | Pulmonology | Matt, | | | 2017 | Visit | | Esperanza Arora, | | | | | | MD [address] | | | | | | [place] [address] | | | | | | [phone] | | | | | | | | +--------+ + + + + as of this encounter Visit Diagnoses Not on filein this encounter"
--- OUTSIDE RECORDS SUMMARY | ~2017-07-26 | XMS | Clinical Summary ---
Demographics + + + | Address | [address] | | | [place] [address] | + + + | Home Phone | | + + + | Preferred Language | Unknown | + + + | Marital Status | | + + + | Faith Affiliation | Unknown | + + + | Race | Unknown | + + + | Ethnic Group | Unknown | + + + Author + + + | Author | [facility] | + + + | Organization | [facility] | + + + | Address | Unknown | + + + | Phone | Unavailable | + + + Support + + +---------+ + | Name | Relationship | Address | Phone | + + +---------+ + | Amado Salmon | ECON | Unknown | | + + +---------+ + Care Team Providers + +------+ + | Care Corporate Recruiter Name | Role | Phone | + [...] restrictive lung disease, | | followed by diazo technician. She is quite sedentary because of | [...] returns to | | her PCP and Book Retailer, she'll be seen again if clinically | [...] & Plan: Palpitations. Clinically | | benign.&-day Tactical Air Defense Controller, 06/01/2015: sinus rhythm, 64-168, | | averaging [...] | | | 2017 | | | EMERGENCY TELECOMMUNICATIONS DISPATCHER | | +--------+ + + + + [...] hypoxia | | | | | | ([facility]); COOPER | | | | | | [...] | | | 2017 | | | EMERGENCY TELECOMMUNICATIONS DISPATCHER | | +--------+ + + + + [...] Dr | | | | | | [place] [address] | | | | | | [phone] | | | | | | | | +--------+ + + + + | 08/22/ | Procedure | | | | | 2017 | visit | | | | +--------+ + + + + | 08/22/ | Office | | Raghunath, Elaine, | | | 2017 | Visit | | [address] | | | | | | [address] [place] | | | | | | [address] | | | | | | | | +--------+ + + + + | 11/27/ | Office | | Matt, | | | 2017 | Visit | | Esperanza Arora, | | | | | | [address] | | | | | | [place] [address] | | | | | | [phone] | | | | | | | [...] RE | | | | [place] [address] | | | IP-OP | | | | | + +--------+ +------+-------+ + | MEDICAID | [place]ER | [id number] | | | [address] | | | N | | | | [place], [place] | | | [place] | | | | [address] | | | SENIOR ANALYTIC CONSULTANT | | | | | + +--------+ [...] Self | [birth year] | Home: | [address] | | | al/Greg | | 1966 | [phone] | [place] | | | fausto | | | [phone] | [address] | + +--------+ +--------+ + +
--- OUTSIDE RECORDS SUMMARY | ~2017-07-26 | XMS | Encounter Summary ---
Demographics + + + | Address | [address] | | | [place] [address] | + + + | Home Phone | | + + + | Preferred Language | Unknown | + + + | Marital Status | | + + + | Congregation Affiliation | Unknown | + + + | Race | Unknown | + + + | Ethnic Group | Unknown | + + + Author + + + | Author | [facility] | + + + | Organization | [facility] | + + + | Address | Unknown | + + + | Phone | Unavailable | + + + Support + + +---------+ + | Name | Relationship | Address | Phone | + + +---------+ + | Amado Araiza | ECON | Unknown | | + + +---------+ + Care Team Providers + +------+ + | Care Disulfurizer Tender Name | Role | Phone | [...] | y, not | [address] | [place] | | | | | elsewhere | Ave | [address] Phone: | | | | | classified | [place], | [phone] | | | | | Memory loss | [place] | Fax: | | | | | | [address] | [phone] | | | | | | Phone: | | | | | | | [phone] | | | | | | | Fax: | | | | | | | [phone] | | + +--------+ + + + + Encounter Details +--------+---------+ + + + | Date | Type | Department | Care Team | Description | +--------+---------+ + + + | 06/27/ | Office | [facility] | Elaine Andrews, | Primary generalized | | 2018 | Visit | [facility] | [address] | epilepsy, major | | | | [address] | [address] [place] | (Primary Dx); | | | | [place] | [address] | Vertigo; Migraine | | | | [address] | | with aura and | | | | [phone] | | without status | | | [...] Gilma Araiza is a 51 y.o. female here for follow up of headache and epilepsy HPI The following portions of the patient's history were reviewed and updated as appropriate an d is available elsewhere in the record: allergies, current medications, past family history, past medical history, past social history, past surgical history and problem list. Gilma is a 51 yo R handed lady from [place], [place] for follow up of seizure disorder. Last s een on 11/24/15. She has h/o DM type 2, morbid obesity, osteoarthritis, fibromyalgia, H1N1 pneumonia 2013, A RDS, seen at [facility] following complications and being comatose. She reports h/o seizures as a child - age 9 - grandmal seizures - seen at [facility] - on phenobarbital for 7 years[address] by Dr De Jesus at [place] at age 15. Did not dejuan nue medications. She had one grandmal after of her first daughter - 31 years ago. Was tired after a [employer] bus drive from [place] to [place]. She has another perioperative seizure a few [...] sleep deprived EEG- 11/11/14 - done at [facility] at [place] and read by Linh Fernandez ([facility]). Was not available during interview but faxed to us after. "Abnormal awake and drowsy EEG - frequent spike and wave discharges with a generalized fiel d though consistently with a left kdrzbx-dhyjbf-wnwozluh lead-in, with activation during hyp erventilation and [...] poor" Has had MRI brain done at [facility] in June 2015 - uploaded in EPIC including report. Normal structure. She complains of short-term memory loss since she was hospitalized at [facility] in 2013. F eels it has [...] her caregiver but she is moving to [place]. She is getting a n ew caregiver. [...] Face symmetric. No pronator drift. Good hand pewter fabricator HF 3/5 with difficulty b/l KE , KF, DF 5/5 Mildly wide based and slow gait with use of cane Assessment and Plan: Gilma Araiza is a 51 year-old right-handed lady with a history of diabetes, morbid obesity , fibromyalgia, history of ARDS from H1N pneumonia in 2013- status post tracheostomy and rep ortedly comatose and treated at [facility]. She reports that she has had seizures [...] Has had MRI b rain done at [facility] in June 2015 - uploaded in [facility] including report. [place]. On followup today, [...] her caregiver but she is moving to [place]. She is getting a n ew caregiver. [...] I explained to the patient that per [place] State law she should not to drive [...] | 08/04/ | Office | Pulmonology | [facility], | | | 2017 | Visit | | Esperanza Arora, | | | | | | MD [address] | | | | | | [place] [address] | | | | | | [phone] | | | | | | | | +--------+ + + + + | 08/22/ | Procedure | Neurology | | | | 2017 | visit | | | | +--------+ + + + + | 08/22/ | Office | Neurology | Elaine Andrews, | | | 2017 | Visit | | [address] | | | | | | [address] [place] | | | | | | [address] | | | | | | | | +--------+ + + + + | 11/27/ | Office | Pulmonology | Matt, | | | 2017 | Visit | | Esperanza Arora, | | | | | | [address] | | | | | | [place] [address] | | | | | | [phone] | | | | | | | [...]
[~2017-07-26 00:04] MED LIST changes: +K-TAB ER20 MEQ PO
[2017-07-26] MEDS ORDERED: PROMETHAZINE HC25 M1 PO (02:53)
== END 2017-07-26 03:05 | disposition home or self-care (01) ==
LOC: ED 00:04
DX: K52.9 Noninfective gastroenteritis and colitis, unspecified (principal); E87.8 Other disorders of electrolyte and fluid balance, not elsewhere classified; E11.9 Type 2 diabetes mellitus without complications; Z79.4 Long term (current) use of insulin; Z79.899 Other long term (current) drug therapy
CPT/HCPCS: 80053; 81001; 85025; 96374; 96376; 99283; J2550; J7030

== ENCOUNTER → 2017-08-17 | Emergency (ER) | payer MEDICARE, OTHER ==
[~2017-08-17] VITALS: Ht 167.6 cm; Wt 127.0 kg
== END ==
LOC: ED 00:01
DX: K29.00 Acute gastritis without bleeding (principal); E86.0 Dehydration; E11.9 Type 2 diabetes mellitus without complications; Z87.01 Personal history of pneumonia (recurrent); Z79.4 Long term (current) use of insulin; Z79.899 Other long term (current) drug therapy
CPT/HCPCS: 80053; 81001; 82010; 82800; 85025; 96361; 96374; 96375; 99283; J2405; J2550; J2765; J7030; J7040

== ENCOUNTER 2018-07-09 03:16 | Emergency (ER) | payer MEDICARE, OTHER ==
[~2018-07-09] VITALS: Ht 167.6 cm; Wt 121.6 kg
--- OUTSIDE RECORDS SUMMARY | ~2018-07-09 | XMS | Clinical Summary ---
Demographics + + + | Address | [address] | | | [place] [address] | + + + | Home Phone | | + + + | Preferred Language | Unknown | + + + | Marital Status | Unknown | + + + | Nondenominational Affiliation | Unknown | + + + | Race | Unknown | + + + | Ethnic Group | Unknown | + + + Author + + + | Author | [facility] | | | and [place] | + + + | Organization | [facility] | | | [...] Team Providers + +------+ + | Care Inspector Salvage Name | Role | Phone | + +------+ + PP | Unavailable | + +------+ + Allergies Not on File Current Medications Not [...] | + + + + + | Vaccine: | | | | | Dtap/Tdap/Td (1 - | 4 | | | | Tdap) | | | | + + + + + | Cervical Cancer | | | | | Screening (Pap) | 5 | | | + + + + + | Vaccine: Zoster (1 | | | | | of 2) | 5 | | | + + + + + | Vaccine: Influenza | | | | | (#1) | 8 | | | + + + + + Results Not on filefrom Last 3 Months"
--- OUTSIDE RECORDS SUMMARY | ~2018-07-09 | XMS | Clinical Summary ---
Demographics + + + | Address | [address] | | | [place] [address] | + + + | Home Phone | | + + + | Preferred Language | Unknown | + + + | Marital Status | | + + + | Temple Affiliation | Unknown | + + + | Race | Unknown | + + + | Ethnic Group | Unknown | + + + Author + + + | Author | Brent Syn[facility] | + + + | Organization | [facility] | + + + | Address | Unknown | + + + | Phone | Unavailable | + + + Support + + +---------+ + | Name | Relationship | Address | Phone | + + +---------+ + | Amado Salmon | ECON | Unknown | | + + +---------+ + Care Team Providers + +------+ + | Care Grain Shoveler Name | Role | Phone | + +------+ + | Mynor Kam MD | PP | | + +------+ + Allergies + + + + + + | Active Allergy | Reactions | Severity | Noted | Comments | | | | | Date | | + + + + + + | Other-Chemical | Rash | Medium | 05/05/19 | | | | | | 14 | | + + + + + + Current Medications + + + +---------+------+------+-------+ | Prescription | Sig. | Disp. | Refills | Star | End | Statu | | | | | | t | Date | s | | | | | | Date | | | + + + +---------+------+------+-------+ | DULoxetine | Take 90 mg by mouth | | | | | Activ | | (CYMBALTA) 30 MG | daily. | | | | | e | | capsule | | | | | | | + + + +---------+------+------+-------+ | insulin lispro, | Inject 35 Units into | | | | | Activ | | human, (HUMALOG) 100 | the skin 2 (two) | | | | | e | | UNIT/ML injection | times daily as | | | | | | | | needed. Sliding | | | | | | | | scale | | | | | | + + + +---------+------+------+-------+ | gabapentin | Take 900 mg by mouth | | | | | Activ | | (NEURONTIN) 300 MG | 3 (three) times | | | | | e | | capsule | daily. | | | | | | + + + +---------+------+------+-------+ | losartan (COZAAR) | Take 50 mg by mouth | | | | | Activ | | 50 MG tablet | daily. | | | | | e | + + + +---------+------+------+-------+ | montelukast | Take 1 tablet by | 30 | 11 | 03/ | | Activ | | (SINGULAIR) 10 MG | mouth nightly. | tablet | | 05/27 | | e | | tabletIndications: | | | | 17 | | | | Moderate persistent | | | | | | | | asthma without | | | | | | | | complication | | | | | | | + + + +---------+------+------+-------+ | tizanidine | Taking 2 tabs 2 | | 2 | 10/05 | | Activ | | (ZANAFLEX) 4 MG | times a day | | | 11/24 | | e | | capsule | | | | 17 | | | + + + +---------+------+------+-------+ | DULoxetine | Take 60 mg by mouth. | | 0 | 09/1 | | Activ | | (CYMBALTA) [address] | | | | 0/20 | | e | | capsule | | | | 17 | | | + + + +---------+------+------+-------+ | LANTUS SOLOSTAR | Inject 35 Units into | | 1 | 08/2 | | Activ | | 100 UNIT/ML | the skin 2 (two) | | | 8/20 | | e | | injection | times daily. | | | 18 | | | + + + +---------+------+------+-------+ | albuterol | Take 3 mLs by | 336 mL | 11 | 02/2 | 02/2 | Activ | | (PROVENTIL) (2.5 | nebulization every 6 | | | 6/20 | 6/20 | e | | MG/3ML) 0.083% | (six) hours as | | | 19 | 20 | | | nebulizer | needed for Wheezing. | | | | | | | solutionIndications: | | | | | | | | Moderate persistent | | | | | | | | asthma without | | | | | | | | complication | | | | | | | + + + +---------+------+------+-------+ | hydrOXYzine | TK 1 T PO Q 8 H UTD | | 3 | 02/1 | | Activ | | (ATARAX) 25 MG | PRA | | | 9/20 | | e | | tablet | | | | 19 | | | + + + +---------+------+------+-------+ | vitamin D2, | TK 1 C PO ONCE A | | 0 | 02/2 | | Activ | | ergocalciferol, | WEEK FOR 6 MONTHS | | | 0/20 | | e | | [id number] units capsule | | | | 19 | | | + + + +---------+------+------+-------+ | | Inhale 1 puff into | 60 each | 5 | 03/0 | | Activ | | fluticasone-salmeter | the lungs 2 (two) | | | 4/20 | | e | | ol (ADVAIR) 250-50 | times daily. | | | 19 | | | | MCG/DOSEIndications: | | | | | | | | Uncontrolled | | | | | | | | moderate persistent | | | | | | | | asthma | | | | | | | + + + +---------+------+------+-------+ | Fluticasone | Inhale 1 puff into | 1 each | 11 | 03/2 | | Activ | | Furoate-Vilanterol | the lungs daily. | | | 2/20 | | e | | 200-25 MCG/INH | | | | 19 | | | | AEPBIndications: | | | | | | | | Moderate persistent | | | | | | | | asthma without | | | | | | | | complication | | | | | | | + + + +---------+------+------+-------+ | oseltamivir | Take 1 capsule by | 7 | 0 | 03/0 | 03/1 | Expir | | (TAMIFLU) 75 MG | mouth daily for 7 | capsule | | 4/20 | 04/26 | ed | | capsuleIndications: | days. | | | 19 | 19 | | | Influenza | | | | | | | + + + +---------+------+------+-------+ Active Problems + + + | Problem | Noted Date | + + + | Primary generalized epilepsy, major | 11/24/2015 | + + + | Moderate persistent asthma without complication | 10/03/2015 | + + + | Precordial pain | 05/31/2015 | + + + + + | Last Assessment & Plan: Chest pain. 49yo WF, with chest | | pain with this very complicated history, her chest discomfort is | | random in occurrence, less than 5 minutes in duration but | | associated with diaphoresis, nausea, but no shortness of breath. | | She describes that her heart is jumping out of her chest,. | | Despite this, she does not have any significant worsening of her | | chronic shortness of breath. She has a history of ARDS, | | requiring a tracheotomy which has since closed, but at as a | | result of her ARDS, now she has restrictive lung disease, | | followed by logistics engineer. She is quite sedentary because of | | this, she lives with her , her daughter is her caregiver. | | Complicating this is a history of fibromyalgia, chronic pain | | issues. There is no prior history of coronary artery disease, | | myocardial infarction, congestive heart failure, congenital heart | | disease, rheumatic heart disease. She had a history of syncope | | one year ago, thought to be due to dehydration. ECG is benign, | | her echocardiogram shows normal LV function, however there is | | septal hypertrophy, no LVOT outflow obstruction. CT shows no | | coronary calcium present. An event monitor shows sinus rhythm | | with rare ectopy, no AV block. Patient is reassured that her | | chest discomfort is non-coronary in nature, the likelihood of a | | cardiac event is extremely low, essentially nonexistent. I | | suspect her symptoms are due to her lung disease. She returns to | | her PCP and Lay Out Former, she'll be seen again if clinically | | warranted.Hx Pacemaker/ICD: noLast Cath: na. 06/29/2015, CT | | Coronary Calcium Score, no coronary artery calcification is | | present.Last Echo, 10/12/2014 ([facility]): septal hypertrophy | | without LVOT obstruction, LVEF 67%, trace MR, trace TR, trace | | PI.Last stress test: naECG, 05/31/2015: NSR, 81bpm. | + + + + + | Heart palpitations | 05/31/2015 | + + + + + | Last Assessment & Plan: Palpitations. Clinically | | benign.&-day Shoe Lay Out Planner, 06/01/2015: sinus rhythm, 64-168, | | averaging 91bpm, rare isolated PAC's, PVC's, no sustained ectopic | | tachycardia events, no AV block detected. | + + + + + | Epilepsy ([facility]) | 05/18/2015 | + + + | Status post tracheostomy (HCC) | 03/06/2015 | + + + | Gastroesophageal reflux disease without esophagitis | 11/01/2014 | + + + | Restrictive lung disease | 01/17/2014 | + + + | Chronic respiratory failure (HCC) | 10/07/2013 | + + + | Asthma | 06/15/2013 | + + + | COOPER (obstructive sleep apnea) | 06/15/2013 | + + + | ARDS survivor | 06/15/2013 | + + + + + | Last Assessment & Plan: History of ARDS, restrictive lung | | disease, followed by Dr. Gutierrez.PFT's, 04/19/2014: Moderately | | severe restriction, reactive airways. | + + + + + | possible Secondary bacterial pneumonia | 05/07/2013 | + + + | Acute respiratory distress syndrome (ARDS) ([facility]) | 05/06/2013 | + + + | Abnormal LFTs (liver function tests) | 05/05/2013 | + + + | Influenza A | 05/02/2013 | + + + | Poorly controlled diabetes mellitus (HCC) | | + + + + + | Last Assessment & Plan: DM, managed by PCP. | + + + +---+ | Morbid obesity with BMI of 45.0-49.9, adult | | + +---+ Resolved Problems + + + + | Problem | Noted | Resolved | | | Date | Date | + + + + | Acute respiratory failure with hypoxia | 05/04/19 | | | | 14 | 6 | + + + + + + | Overview: due to influenza PNA | + + Encounters +--------+ + + + + | Date | Type | Specialty | Care Team | Description | +--------+ + + + + | 06/26/ | Telephone | | Peter Palm, | | | 2018 | | | CREDIT CONSULTANT | | +--------+ + + + + | 06/26/ | Telephone | | Peter Palm, | | | 2018 | | | CREDIT CONSULTANT | | +--------+ + + + + | 06/18/ | Telephone | | Elaine Andrews, | Other (Needs to | | 2018 | | | | [place] marcus/ Faby | | | | | | ) | +--------+ + + + + | 06/08/ | Office | | Matt | Uncontrolled | | 2018 | Visit | | Esperanza Arora, | moderate persistent | | | | | MD | asthma (Primary Dx); | | | | | | Exposure to | | | | | | influenza; ARDS | | | | | | survivor; | | | | | | Restrictive lung | | | | | | disease; Chronic | | | | | | respiratory failure | | | | | | with hypoxia (HCC); | | | | | | COOPER (obstructive | | | | | | sleep apnea) | +--------+ + + + + | 06/02/ | Refill | | Toya Jeffries RN | Moderate persistent | | 2019 | | | | asthma without | | | | | | complication | +--------+ + + + + | 05/28/ | Documentati | | Elaine Andrews, | | | 2019 | on Only | | MD | | +--------+ + + + + | 05/22/ | Procedure | | Elaine Andrews, | Intractable migraine | | 2018 | visit | | MD | without aura and | | | | | | without status | | | | | | migrainosus (Primary | | | | | | Dx) | +--------+ + + + + | 05/19/ | Telephone | | Elaine Andrews, | Botox Injection | | 2018 | | | MD | (Schedule botox | | | | | | injection) | +--------+ + + + + | 05/05/ | Telephone | | Toya Jeffries RN | | | 2018 | | | | | +--------+ + + + + from Last 3 Months Immunizations + + + + | Name | Dates Previously Given | Next Due | + + + + | Pneumococcal | 05/06/2013 | | | Polysaccharide | | | | 23-valent | | | + + + + Social History + +-------+ +--------+------+ | Tobacco Use | Types | Packs/Day | Years | Date | | | | | Used | | + +-------+ +--------+------+ | Never Smoker | | | | | + +-------+ +--------+------+ + +---+---+---+ | Smokeless Tobacco: | | | | | Never Used | | | | + +---+---+---+ + + | Tobacco Cessation: Counseling Given: No | + + + + +---------+ + | Alcohol Use [...] on file | | + + + Last Filed Vital Signs + + + + | Vital Sign | Reading | Time Taken | + + + + | Blood Pressure | 121/68 | 06/08/2018 8:10 AM PST | + + + + | Pulse | 82 | 06/08/2018 8:10 AM PST | + + + + | Temperature | 36.2 C (97.2 F) | 06/08/2018 8:10 AM PST | + + + + | Respiratory Rate | 18 | 11/07/2016 3:43 PM PDT | + + + + | Oxygen Saturation | 97% | 06/08/2018 8:10 AM PST | + + + + | Inhaled Oxygen | - | - | | Concentration | | | + + + + | Weight | 142.2 kg (313 lb 6.4 | 06/08/2018 8:10 AM PST | | | oz) | | + + + + | Height | 167.6 cm (5' 6") | 06/08/2018 8:10 AM PST | + + + + | Body Mass Index | 50.58 | 06/08/2018 8:10 AM PST | + + + + Plan of Treatment +--------+ + + + + | Date | Type | Specialty | Care Team | Description | +--------+ + + + + | 07/15/ | Office | | Elaine Andrews, | | | 2018 | Visit | | MD Kim Patterson | | | | | | [place] | | | | | | [phone] | | | | | | | | +--------+ + + + + | 08/14/ | Procedure | | Elaine Andrews, | | | 2018 | visit | | [address] | | | | | | [facility] [place] | | | | | | [id number] | | | | | | | | +--------+ + + + + | 10/21/ | Office | | Matt, | | | 2018 | Visit | | Esperanza Arora, | | | | | | [address] | | | | | | [place] [address] | | | | | | [phone] | | | | | | | | +--------+ + + + + + + + + + | Health Maintenance | Due Date | Last Done | Comments | + + + + + | Diabetic Eye Exam | | | | | | 5 | | | + + + + + | Diabetic Foot Exam | | | | | | 5 | | | + + + + + | Microalbumin | | | | | Screening | 5 | | | + + + + + | Vaccine: | | | | | Dtap/Tdap/Td (1 - | 4 | | | | Tdap) | | | | + + + + + | Cervical Cancer | | | | | Screening (Pap) | 5 | | | + + + + + | Hemoglobin A1c | | 05/06/2013 | | | | 4 | | | + + + + + | Breast Cancer | | | | | Screening | 5 | | | | (Mammogram) | | | | + + + + + | Colon Cancer | | | | | Screening | 5 | | | | (Colonoscopy) | | | | + + + + + | Vaccine: Zoster (1 | | | | | of 2) | 5 | | | + + + + + | Statin Therapy | | | | | (optimal intensity) | 7 | | | + + + + + | Vaccine: Influenza | | | | | (Season Ended) | 9 | | | + + + + + | Vaccine: | Completed | 05/06/2013 | | | Pneumococcal 19-64 | | | | | (PPSV23 only) Medium | | | | | Risk | | | | + + + + + Results Not on filefrom Last 3 Months Insurance + +--------+ +------+-------+ + | Payer | Benefi | Subscriber | Type | Phone | Address | | | t Plan | ID | | | | | | / | | | | | | | Group | | | | | + +--------+ +------+-------+ + | MEDICARE | MEDICA | [id number] | | | [address] | | | RE | | | | [place] [address] | | | IP-OP | | | | | + +--------+ +------+-------+ + | MEDICAID | [place] | [id number] | | | [address] | | | [place] | | | | [place] | | | [place] | | | | [address] | | | LAND LEASE INFORMATION CLERK | | | | | + +--------+ +------+-------+ + + +--------+ +--------+ + + | Guarantor Name | Accoun | Relation to | Date | Phone | Billing Address | | | t Type | Patient | of | | | | | | | | | | + +--------+ +--------+ + + | GILMA SALMON | Person | Self [birth year] | Home: | [address] | | [place] | [place] | | 1966 | [phone] | [place] | | | [place] | | | [phone] | [phone] | + +--------+ +--------+ + +
--- OUTSIDE RECORDS SUMMARY | ~2018-07-09 | XMS | Encounter Summary ---
Demographics + + + | Address | [address] | | | [place] [address] | + + + | Home Phone | | + + + | Preferred Language | Unknown | + + + | Marital Status | | + + + | Oriental Orthodox Affiliation | Unknown | + + + | Race | Unknown | + + + | Ethnic Group | Unknown | + + + Author + + + | Author | Brent [email or web address] | + + + | Organization | [facility] | + + + | Address | Unknown | + + + | Phone | Unavailable | + + + Support + + +---------+ + | Name | Relationship | Address | Phone | + + +---------+ + | Amado Araiza | ECON | Unknown | | + + +---------+ + Care Team Providers + +------+ + | Care Sagger Maker Name | Role | Phone | + +------+ + | Mynor Kam MD | PCP | | + +------+ + Reason for Visit + + + | Reason | Comments | + + + | Botox Injection | Schedule botox injection | + + + Encounter Details +--------+ + + + + | Date | Type | Department | Care Team | Description | +--------+ + + + + | 05/19/ | Telephone | [facility] | Elaine Andrews, | Botox Injection | | 2019 | | [facility] | MD Kim Patterson | (Schedule botox | | | | [address] | [address] [place] | injection) | | | | [place] | [address] | | | | | [address] | | | | | | [phone] | | | +--------+ + + + [...] + + | 07/15/ | Office | Neurology | Elaine Andrews, | | | 2019 | Visit | | MD Kmi Patterson | | | | | | [place] | | | | | | [address] | | | | | | | | +--------+ + + + + | 08/14/ | Procedure | Neurology | Elaine Andrews, | | | 2018 | visit | | MD Kim Patterson | | | | | | [place] | | | | | | [address] | | | | | | | | +--------+ + + + + | 10/21/ | Office | Pulmonology | Matt, | | | 2018 | Visit | | Esperanza Arora, | | | | | | MD [address] | | | | | | [place] [address] | | | | | | [phone] | | | | | | | | +--------+ + + + + as of this encounter Visit Diagnoses Not on filein this encounter"
--- OUTSIDE RECORDS SUMMARY | ~2018-07-09 | XMS | Clinical Summary ---
Demographics + + + | Address | [address] | | | [place] [address] | + + + | Home Phone | | + + + | Preferred Language | Unknown | + + + | Marital Status | Unknown | + + + | Mandaen Affiliation | Unknown | + + + | Race | Unknown | + + + | Ethnic Group | Unknown | + + + Author + + + | Author | [facility] | + + + | Organization | [facility] | + + + | Address | Unknown | + + + | Phone | Unavailable | + + + Care Team Providers + +------+ + | Care Foreclosure Home Inspector Name | Role | Phone | + +------+ + PP | Unavailable | + +------+ + Source Comments FAB is fully live on both [facility] Ambulatory and [facility] InPatient.[facility] Allergies Not on File [...] | + + + + + | Influenza (Flu) | | | | | vaccination (#1) | 8 | | | + + + + + Results Not on filefrom Last 3 Months"
--- OUTSIDE RECORDS SUMMARY | ~2018-07-09 | XMS | Encounter Summary ---
Demographics + + + | Address | [address] | | | [place] [address] | + + + | Home Phone | | + + + | Preferred Language | Unknown | + + + | Marital Status | | + + + | Restorationist Affiliation | Unknown | + + + | Race | Unknown | + + + | Ethnic Group | Unknown | + + + Author + + + | Author | Brent [facility] | + + + | Organization | [facility] | + + + | Address | Unknown | + + + | Phone | Unavailable | + + + Support + + +---------+ + | Name | Relationship | Address | Phone | + + +---------+ + | Amado Araiza | ECON | Unknown | | + + +---------+ + Care Team Providers + +------+ + | Care Canine Enforcement Officer Name | Role | Phone | + +------+ + | Mynor Kam MD | PCP | | + +------+ + Encounter Details +--------+ + + + + | Date | Type | Department | Care Team | Description | +--------+ + + + + | 05/05/ | Telephone | [facility] | Toya Jeffries RN | | | 2018 | | Pulmonology [address] | | | | | [address] | | | | | | [place] | | | | | | [address] | | | | | | [phone] | | | +--------+ + + + [...] [place] | | | | | | [address] | | | | | | | | +--------+ + + + + | 08/14/ | Procedure | Neurology | Elaine Andrews, | | | 2018 | visit | | MD Kim Patterson | | | | | | [place] | | | | | | [phone] | | | | | | | | +--------+ + + + + | 10/21/ | Office | Pulmonology | Matt, | | | 2018 | Visit | | Esperanza Arora, | | | | | | [address] | | | | | | [place] [address] | | | | | | [phone] | | | | | | | | +--------+ + + + + as of this encounter Visit Diagnoses + + | Diagnosis | + + | Moderate persistent asthma with acute exacerbation - Primary | + +"
--- OUTSIDE RECORDS SUMMARY | ~2018-07-09 | XMS | Encounter Summary ---
Demographics + + + | Address | [address] | | | [place] [address] | + + + | Home Phone | | + + + | Preferred Language | Unknown | + + + | Marital Status | | + + + | Restorationism Affiliation | Unknown | + + + | Race | Unknown | + + + | Ethnic Group | Unknown | + + + Author + + + | Author | Brent Evver | + + + | Organization | [facility] | + + + | Address | Unknown | + + + | Phone | Unavailable | + + + Support + + +---------+ + | Name | Relationship | Address | Phone | + + +---------+ + | Amado Araiza | ECON | Unknown | | + + +---------+ + Care Team Providers + +------+ + | Care Rate Clerk Name | Role | Phone | + +------+ + | Mynor Kam MD | PCP | | + +------+ + Reason for Visit +--------+ + | Reason | Comments | +--------+ + | Other | Needs to speak w/ [employer] | +--------+ + Encounter Details +--------+ + + + + | Date | Type | Department | Care Team | Description | +--------+ + + + + | 03/14/ | Telephone | [facility] | Elaine Andrews, | Other (Needs to | | 2019 | | [facility] | MD Kim Patterson | [facility] | | | | [address] | [address] [place] | [employer] ) | | | | [place] | [id number] | | | | | [address] | | | | | | [phone] | | | +--------+ + + + [...] | 2018 | Visit | | MD [address] | | | | | | [place] | | | | | | [address] | | | | | | | | +--------+ + + + + | 08/14/ | Procedure | Neurology | Elaine Andrews, | | | 2018 | visit | | MD [address] | | | | | | [place] | | | | | | [address] | | | | | | | | +--------+ + + + + | 10/21/ | Office | Pulmonology | Matt, | | | 2018 | Visit | | Esperanza Arora, | | | | | | MD [address] | | | | | | [place] [address] | | | | | | [phone] | | | | | | | | +--------+ + + + + as of this encounter Visit Diagnoses Not on filein this encounter"
--- OUTSIDE RECORDS SUMMARY | ~2018-07-09 | XMS | Encounter Summary ---
Demographics + + + | Address | [address] | | | [place] [address] | + + + | Home Phone | | + + + | Preferred Language | Unknown | + + + | Marital Status | | + + + | Mormonism Affiliation | Unknown | + + + | Race | Unknown | + + + | Ethnic Group | Unknown | + + + Author + + + | Author | Brent Xquva | + + + | Organization | [facility] | + + + | Address | Unknown | + + + | Phone | Unavailable | + + + Support + + +---------+ + | Name | Relationship | Address | Phone | + + +---------+ + | Amado Araiza | ECON | Unknown | | + + +---------+ + Care Team Providers + +------+ + | Care Weather Analyst Name | Role | Phone | + +------+ + | Mynor Kam MD | PCP | | + +------+ + Encounter Details +--------+ + + + + | Date | Type | Department | Care Team | Description | +--------+ + + + + | 06/26/ | Telephone | [facility] | Peter Palm, | | | 2018 | | Pulmonology [address] | [employer]INTENANCE WORKER | | | | | [address] | | | | | | [place] | | | | | | [address] | | | | | | [phone] | | | +--------+ + + + [...] [place] | | | | | | [address] | | | | | | | | +--------+ + + + + | 08/14/ | Procedure | Neurology | Elaine Andrews, | | | 2018 | visit | | MD Kim Patterson | | | | | | [place] | | | | | | [address] | | | | | | | | +--------+ + + + + | 10/21/ | Office | Pulmonology | Matt, | | | 2019 | Visit | | Esperanza Arora, | | | | | | MD [address] | | | | | | [place] [address] | | | | | | [phone] | | | | | | | | +--------+ + + + + as of this encounter Visit Diagnoses Not on filein this encounter"
--- OUTSIDE RECORDS SUMMARY | ~2018-07-09 | XMS | Encounter Summary ---
Demographics + + + | Address | [address] | | | [place] [address] | + + + | Home Phone | | + + + | Preferred Language | Unknown | + + + | Marital Status | | + + + | Jehovah'S Witness Affiliation | Unknown | + + + | Race | Unknown | + + + | Ethnic Group | Unknown | + + + Author + + + | Author | Brent [facility] | + + + | Organization | [facility] | + + + | Address | Unknown | + + + | Phone | Unavailable | + + + Support + + +---------+ + | Name | Relationship | Address | Phone | + + +---------+ + | Amado Araiza | ECON | Unknown | | + + +---------+ + Care Team Providers + +------+ + | Care Poke In Name | Role | Phone | + +------+ + | Mynor Kam MD | PCP | | + +------+ + Encounter Details +--------+ + + + + | Date | Type | Department | Care Team | Description | +--------+ + + + + | 05/28/ | Documentati | [facility] | Elaine Andrews, | | | 2019 | on Only | [facility] | [address] | | | | | [address] | [place] | | | | | [place] | [address] | | | | | [address] | | | | | | [phone] | | | +--------+ + + + [...] [place] | | | | | | [id number] | | | | | | | | +--------+ + + + + | 08/14/ | Procedure | Neurology | Elaine Andrews, | | | 2018 | visit | | MD Kim Patterson | | | | | | [place] | | | | | | [address] | | | | | | | | +--------+ + + + + | 10/21/ | Office | Pulmonology | Matt, | | | 2018 | Visit | | Esperanza Arora, | | | | | | MD [address] | | | | | | [place] [address] | | | | | | [phone] | | | | | | | | +--------+ + + + + as of this encounter Visit Diagnoses Not on filein this encounter"
--- OUTSIDE RECORDS SUMMARY | ~2018-07-09 | XMS | Clinical Summary ---
Demographics + + + | Address | [address] | | | [place] [address] | + + + | Home Phone [...] + + + | Author | [facility] | | | and [place] | + + + | Organization | [facility] | | | and [...] Team Providers + +------+ + | Care Acetylene Torch Burner Name | Role | Phone | [...]
--- OUTSIDE RECORDS SUMMARY | ~2018-07-09 | XMS | Encounter Summary ---
Demographics + + + | Address | [address] | | | [place] [address] | + + + | Home Phone | | + + + | Preferred Language | Unknown | + + + | Marital Status | | + + + | Baptist Affiliation | Unknown | + + + | Race | Unknown | + + + | Ethnic Group | Unknown | + + + Author + + + | Author | Brent SmartBIM | + + + | Organization | [facility] | + + + | Address | Unknown | + + + | Phone | Unavailable | + + + Support + + +---------+ + | Name | Relationship | Address | Phone | + + +---------+ + | Amado Araiza | ECON | Unknown | | + + +---------+ + Care Team Providers + +------+ + | Care Patient Representative Name | Role | Phone | + +------+ + | Mynor Kam MD | PCP | | + +------+ + Encounter Details +--------+ + + + + | Date | Type | Department | Care Team | Description | +--------+ + + + + | 06/26/ | Telephone | [facility] | Peter Palm, | | | 2018 | | Pulmonology [address] | MACHINE CLERICAL VERIFIER | | | | | [place] | | | | | | [place] | | | | | | [address] | | | | | | [phone] | | | +--------+ + + + [...] [place] | | | | | | [address] | | | | | | | | +--------+ + + + + | 08/14/ | Procedure | Neurology | Elaine Andrews, | | | 2018 | visit | | MD Kim Patterson | | | | | | [place] | | | | | | [address] | | | | | | | | +--------+ + + + + | 10/21/ | Office | Pulmonology | Matt, | | | 2018 | Visit | | Esperanza Arora, | | | | | | MD [address] | | | | | | [place] [address] | | | | | | [phone] | | | | | | | | +--------+ + + + + as of this encounter Visit Diagnoses + + | Diagnosis | + + | Moderate persistent asthma without complication - Primary | + + | Unspecified asthma | + +"
--- OUTSIDE RECORDS SUMMARY | ~2018-07-09 | XMS | Encounter Summary ---
Demographics + + + | Address | [address] | | | [place] [address] | + + + | Home Phone | | + + + | Preferred Language | Unknown | + + + | Marital Status | | + + + | Catholic Affiliation | Unknown | + + + | Race | Unknown | + + + | Ethnic Group | Unknown | + + + Author + + + | Author | Brent SkyStem | + + + | Organization | [facility] | + + + | Address | Unknown | + + + | Phone | Unavailable | + + + Support + + +---------+ + | Name | Relationship | Address | Phone | + + +---------+ + | Amado Araiza | ECON | Unknown | | + + +---------+ + Care Team Providers + +------+ + | Care Decorating Instructor Name | Role | Phone | + +------+ + | Mynor Kam MD | PCP | | + +------+ + Encounter Details +--------+ + + + + | Date | Type | Department | Care Team | Description | +--------+ + + + + | 06/26/ | Telephone | [facility] | Peter Palm, | | | 2018 | | Pulmonology [address] | BUSINESS ACCOUNT MANAGER | | | | | [place] | | | | | | [place] | | | | | | [address] | | | | | | [phone] | | | +--------+ + + + [...] [place] | | | | | | [address] | | | | | | | | +--------+ + + + + | 08/14/ | Procedure | Neurology | Elaine Andrews, | | | 2018 | visit | | MD Kim Patterson | | | | | | [place] | | | | | | [address] | | | | | | | | +--------+ + + + + | 10/21/ | Office | Pulmonology | Matt, | | | 2019 | Visit | | Esperanza Arora, | | | | | | MD [address] | | | | | | [place] [address] | | | | | | [phone] | | | | | | | | +--------+ + + + + as of this encounter Visit Diagnoses Not on filein this encounter"
--- OUTSIDE RECORDS SUMMARY | ~2018-07-09 | XMS | Encounter Summary ---
Demographics + + + | Address | [address] | | | [place] [address] | + + + | Home Phone | | + + + | Preferred Language | Unknown | + + + | Marital Status | | + + + | Latter-Day Affiliation | Unknown | + + + | Race | Unknown | + + + | Ethnic Group | Unknown | + + + Author + + + | Author | Brent FarmDrop | + + + | Organization | [facility] [employer] [facility] | + + + | Address | Unknown | + + + | Phone | Unavailable | + + + Support + + +---------+ + | Name | Relationship | Address | Phone | + + +---------+ + | Amado Araiza | ECON | Unknown | | + + +---------+ + Care Team Providers + +------+ + | Care Systems Auditor Name | Role | Phone | + +------+ + | Mynor Kam MD | PCP | | + +------+ + Encounter Details +--------+---------+ + + + | Date | Type | Department | Care Team | Description | +--------+---------+ + + + | 06/08/ | Office | [facility] | Matt, | Uncontrolled | | 2019 | Visit | Pulmonology [address] | Esperanza Arora, | moderate persistent | | | | [place] | [address] | asthma (Primary Dx); | | | | [place], [place] | [place] [address] | Exposure to | | | | [address] | [phone] | influenza; ARDS | | | | [phone] | | survivor; | | | | [...] COOPER and obesity, who was admitted to [facility] from 05/05/13 to 05/14/13 for acut e respiratory failure from ARDS due to H1N1 infection. Her course was long and difficult -sh e eventually underwent a tracheostomy insertion by Dr Novoa (Lina), and then she was eventua lly moved to an acute Rehab facility close to [place] ([facility]). She reports abi t she had a horrible time here. After close to a week of staying in the facility, her trache ostomy tube managed to fall out and she suffered from hypoxemia with bilateral lung atelecta sis. She was brought to [facility] where they put her trach back. She [...] Diagnosis Date Noted Poorly controlled diabetes mellitus ([facility]) Morbid obesity with BMI of 45.0-49.9, adult Influenza A 05/02/2013 Abnormal LFTs (liver function tests) 05/05/2013 Acute respiratory distress syndrome (ARDS) ([facility]) 05/06/2013 possible Secondary bacterial pneumonia 05/07/2013 Asthma 06/15/2013 COOPER (obstructive sleep apnea) 06/15/2013 ARDS survivor 06/15/2013 Chronic respiratory failure ([facility]) 10/07/2013 Restrictive lung disease 01/17/2014 Gastroesophageal reflux disease without esophagitis 11/01/2014 Status post tracheostomy ([facility]) 03/06/2015 Epilepsy ([facility]) 05/18/2015 Precordial pain 05/31/2015 Heart palpitations 05/31/2015 Moderate persistent asthma without complication 10/03/2015 Primary generalized epilepsy, major 11/24/2015 Resolved Ambulatory Problems Diagnosis Date Noted Acute respiratory failure with hypoxia 05/04/2013 Past Medical History: Diagnosis Date Acute respiratory failure with hypoxia 05/04/2013 Asthma Bronchitis DVT (deep venous thrombosis) ([facility]) Dvt femoral (deep venous thrombosis) ([facility]) Epilepsy ([facility]) Fibromyalgia Fibromyalgia Hypertension Influenza A (H1N1) 05/02/2013 Joint pain Morbid obesity with BMI of 45.0-49.9, adult ([facility]) Osteoarthritis Ovarian mass Poorly controlled diabetes mellitus ([facility]) Restrictive airway disease Shingles Sleep apnea Unspecified visual disturbance Past Surgical History Procedure Laterality Date APPENDECTOMY BREAST SURGERY CHOLECYSTECTOMY FINGER SURGERY FINGER SURGERY KNEE ARTHROSCOPY left knee TONSILLECTOMY AND ADENOIDECTOMY TOTAL ABDOMINAL HYSTERECTOMY TRACHEAL SURGERY N/A 05/11/2013 Procedure: TRACHEOSTOMY; Surgeon: Fabián Novoa MD; Location: [facility] MAIN OR; Service: ENT; Laterality: [...] of her life. She now lives in [place]. She lived in [place] for two years when she was younger. [...] Gutierrez MD Pulmonary and Critical Care Medicine [facility] [address], [place] [address] in this encounter Plan of Treatment +--------+ + + + + | Date | Type | Specialty | Care Team | Description | +--------+ + + + + | 07/15/ | Office | Neurology | Elaine Andrews, | | | 2018 | Visit | | MD Kim Patterson | | | | | | [place] | | | | | | [address] | | | | | | | | +--------+ + + + + | 08/14/ | Procedure | Neurology | Elaine Andrews, | | | 2018 | visit | | MD Kim Patterson | | | | | | [place] | | | | | | [address] | | | | | | | | +--------+ + + + + | 10/21/ | Office | Pulmonology | Matt, | | | 2018 | Visit | | Esperanza Arora, | | | | | | MD [address] | | | | | | [place] [address] | | | | | | [phone] | | | | | | | [...]
--- OUTSIDE RECORDS SUMMARY | ~2018-07-09 | XMS | Encounter Summary ---
Demographics + + + | Address | [address] | | | [place] [address] | + + + | Home Phone | | + + + | Preferred Language | Unknown | + + + | Marital Status | | + + + | Pentecostalism Affiliation | Unknown | + + + | Race | Unknown | + + + | Ethnic Group | Unknown | + + + Author + + + | Author | Brent [employer] | + + + | Organization | [facility] [employer] [facility] | + + + | Address | Unknown | + + + | Phone | Unavailable | + + + Support + + +---------+ + | Name | Relationship | Address | Phone | + + +---------+ + | Amado Araiza | ECON | Unknown | | + + +---------+ + Care Team Providers + +------+ + | Care Analytic Programmer Name | Role | Phone | + [...] + + | 06/02/ | Refill | [facility] | Toya Jeffries RN | Moderate persistent | | 2019 | | Pulmonology [address] | | asthma without | | | | [place] | | complication | | | | [place], [place] | | | | | | [address] | | | | | | [phone] | | | +--------+--------+ + + + [...] [place] | | | | | | [address] | | | | | | | | +--------+ + + + + | 08/14/ | Procedure | Neurology | Elaine Andrews, | | | 2018 | visit | | MD Kim Patterson | | | | | | [place] | | | | | | [address] | | | | | | | | +--------+ + + + + | 10/21/ | Office | Pulmonology | Matt, | | | 2018 | Visit | | Esperanza Arora, | | | | | | [address] | | | | | | [facility] [place] [address] | | | | | | [phone] | | | | | | | | +--------+ + + + + as of this encounter Visit Diagnoses + + | Diagnosis | + + | Moderate persistent asthma without complication | + + | Unspecified asthma | + +"
--- OUTSIDE RECORDS SUMMARY | ~2018-07-09 | XMS | Encounter Summary ---
Demographics + + + | Address | [address] | | | [place] [address] | + + + | Home Phone | | + + + | Preferred Language | Unknown | + + + | Marital Status | | + + + | Baptist Affiliation | Unknown | + + + | Race | Unknown | + + + | Ethnic Group | Unknown | + + + Author + + + | Author | Brent SkuServe | + + + | Organization | [facility] [facility] | + + + | Address | Unknown | + + + | Phone | Unavailable | + + + Support + + +---------+ + | Name | Relationship | Address | Phone | + + +---------+ + | Amado Araiza | ECON | Unknown | | + + +---------+ + Care Team Providers + +------+ + | Care Order Expediter Name | Role | Phone | + [...] + + | 06/02/ | Refill | [facility] | Toya Jeffries RN | Moderate persistent | | 2019 | | Pulmonology [address] | | asthma without | | | | [place] | | complication | | | | [place], [place] | | | | | | [address] | | | | | | [phone] | | | +--------+--------+ + + + [...] [place] | | | | | | [address] | | | | | | | | +--------+ + + + + | 08/14/ | Procedure | Neurology | Elaine Andrews, | | | 2018 | visit | | MD Kim Patterson | | | | | | [place] | | | | | | [address] | | | | | | | | +--------+ + + + + | 10/21/ | Office | Pulmonology | Matt, | | | 2018 | Visit | | Esperanza Arora, | | | | | | [address] | | | | | | [facility] [place] [address] | | | | | | [phone] | | | | | | | | +--------+ + + + + as of this encounter Visit Diagnoses + + | Diagnosis | + + | Moderate persistent asthma without complication | + + | Unspecified asthma | + +"
--- OUTSIDE RECORDS SUMMARY | ~2018-07-09 | XMS | Encounter Summary ---
Demographics + + + | Address | [address] | | | [place] [address] | + + + | Home Phone | | + + + | Preferred Language | Unknown | + + + | Marital Status | | + + + | Methodist Affiliation | Unknown | + + + | Race | Unknown | + + + | Ethnic Group | Unknown | + + + Author + + + | Author | Brent [facility] | + + + | Organization | [facility] [employer] [facility] | + + + | Address | Unknown | + + + | Phone | Unavailable | + + + Support + + +---------+ + | Name | Relationship | Address | Phone | + + +---------+ + | Amado Araiza | ECON | Unknown | | + + +---------+ + Care Team Providers + +------+ + | Care Pesticide Use Medical Coordinator Name | Role | Phone | + +------+ + | Mynor Kam MD | PCP | | + +------+ + Encounter Details +--------+ + + + + | Date | Type | Department | Care Team | Description | +--------+ + + + + | 05/05/ | Telephone | [facility] | Toya Jeffries RN | | | 2018 | | Pulmonology [address] | | | | | | [place] [address] | | | | | | [place] | | | | | | [address] | | | | | | [phone] | | | +--------+ + + + [...] [place] | | | | | | [id number] | | | | | | | | +--------+ + + + + | 10/21/ | Office | Pulmonology | Matt, | | | 2018 | Visit | | Esperanza Arora, | | | | | | [address] | | | | | | [place] [address] | | | | | | [phone] | | | | | | | | +--------+ + + + + as of this encounter Visit Diagnoses + + | Diagnosis | + + | Moderate persistent asthma with acute exacerbation - Primary | + +"
--- OUTSIDE RECORDS SUMMARY | ~2018-07-09 | XMS | Encounter Summary ---
Demographics + + + | Address | [address] | | | [place] [address] | + + + | Home Phone | | + + + | Preferred Language | Unknown | + + + | Marital Status | | + + + | Buddhist Affiliation | Unknown | + + + | Race | Unknown | + + + | Ethnic Group | Unknown | + + + Author + + + | Author | Brent Pikanote | + + + | Organization | [facility] [employer] [facility] | + + + | Address | Unknown | + + + | Phone | Unavailable | + + + Support + + +---------+ + | Name | Relationship | Address | Phone | + + +---------+ + | Amado Araiza | ECON | Unknown | | + + +---------+ + Care Team Providers + +------+ + | Care Spiritual Counselor Name | Role | Phone | + +------+ + | Mynor Kam MD | PCP | | + +------+ + Encounter Details +--------+---------+ + + + | Date | Type | Department | Care Team | Description | +--------+---------+ + + + | 06/08/ | Office | [facility] | Matt, | Uncontrolled | | 2019 | Visit | Pulmonology [address] | Esperanza Arora, | moderate persistent | | | | [place] | [address] | asthma (Primary Dx); | | | | [place], [place] | [place] [address] | Exposure to | | | | [address] | [phone] | influenza; ARDS | | | | [phone] | | survivor; | | | | [...] COOPER and obesity, who was admitted to [facility] from 05/05/13 to 05/14/13 for acut e respiratory failure from ARDS due to H1N1 infection. Her course was long and difficult -sh e eventually underwent a tracheostomy insertion by Dr Novoa (Lina), and then she was eventua lly moved to an acute Rehab facility [place] ([facility]). She reports abi t she had a horrible time here. After close to a week of staying in the facility, her trache ostomy tube managed to fall out and she suffered from hypoxemia with bilateral lung atelecta sis. She was brought to [facility] where they put her trach back. [...] Diagnosis Date Noted Poorly controlled diabetes mellitus ([facility]) Morbid obesity with BMI of 45.0-49.9, adult Influenza A 05/02/2013 Abnormal LFTs (liver function tests) 05/05/2013 Acute respiratory distress syndrome (ARDS) ([facility]) 05/06/2013 possible Secondary bacterial pneumonia 05/07/2013 Asthma 06/15/2013 COOPER (obstructive sleep apnea) 06/15/2013 ARDS survivor 06/15/2013 Chronic respiratory failure ([facility]) 10/07/2013 Restrictive lung disease 01/17/2014 Gastroesophageal reflux disease without esophagitis 11/01/2014 Status post tracheostomy ([facility]) 03/06/2015 Epilepsy ([facility]) 05/18/2015 Precordial pain 05/31/2015 Heart palpitations 05/31/2015 Moderate persistent asthma without complication 10/03/2015 Primary generalized epilepsy, major 11/24/2015 Resolved Ambulatory Problems Diagnosis Date Noted Acute respiratory failure with hypoxia 05/04/2013 Past Medical History: Diagnosis Date Acute respiratory failure with hypoxia 05/04/2013 Asthma Bronchitis DVT (deep venous thrombosis) ([facility]) Dvt femoral (deep venous thrombosis) ([facility]) Epilepsy ([facility]) Fibromyalgia Fibromyalgia Hypertension Influenza A (H1N1) 05/02/2013 Joint pain Morbid obesity with BMI of 45.0-49.9, adult ([facility]) Osteoarthritis Ovarian mass Poorly controlled diabetes mellitus ([facility]) Restrictive airway disease Shingles Sleep apnea Unspecified visual disturbance Past Surgical History Procedure Laterality Date APPENDECTOMY BREAST SURGERY CHOLECYSTECTOMY FINGER SURGERY FINGER SURGERY KNEE ARTHROSCOPY left knee TONSILLECTOMY AND ADENOIDECTOMY TOTAL ABDOMINAL HYSTERECTOMY TRACHEAL SURGERY N/A 05/11/2013 Procedure: TRACHEOSTOMY; Surgeon: Fabián Novoa MD; Location: [facility] MAIN OR; Service: ENT; Laterality: N/A; move [...] the past. S he has lived in [place] most of her life. She now lives in [place]. She lived in [place] for two years when she was younger. [...] Gutierrez MD Pulmonary and Critical Care Medicine [facility] [address], [place] [address] in this encounter Plan of Treatment +--------+ + + + + | Date | Type | Specialty | Care Team | Description | +--------+ + + + + | 07/15/ | Office | Neurology | Elaine Andrews, | | | 2018 | Visit | | MD Kim Patterson | | | | | | [place] | | | | | | [address] | | | | | | | | +--------+ + + + + | 08/14/ | Procedure | Neurology | Elaine Andrews, | | | 2018 | visit | | MD Kim Patterson | | | | | | [place] | | | | | | [address] | | | | | | | | +--------+ + + + + | 10/21/ | Office | Pulmonology | Matt, | | | 2018 | Visit | | Esperanza Arora, | | | | | | MD [address] | | | | | | [place] [address] | | | | | | [phone] | | | | | | | [...]
--- OUTSIDE RECORDS SUMMARY | ~2018-07-09 | XMS | Clinical Summary ---
Demographics + + + | Address | [address] | | | [place] [address] | + + + | Home Phone | | + + + | Preferred Language | Unknown | + + + | Marital Status | Unknown | + + + | Gnosticism Affiliation | Unknown | + + + | Race | Unknown | + + + | Ethnic Group | Unknown | + + + Author + + + | Author | [facility] | + + + | Organization | [facility] | + + + | Address | Unknown | + + + | Phone | Unavailable | + + + Care Team Providers + +------+ + | Care Senior Game Advisor Name | Role | Phone | + +------+ + PP | Unavailable | + +------+ + Source Comments FAB is fully live on both [facility] Ambulatory and [facility] InPatient.[facility] Allergies Not on File Current Medications [...]
--- OUTSIDE RECORDS SUMMARY | ~2018-07-09 | XMS | Encounter Summary ---
Demographics + + + | Address | [address] | | | [place] [address] | + + + | Home Phone | | + + + | Preferred Language | Unknown | + + + | Marital Status | | + + + | Buddhism Affiliation | Unknown | + + + | Race | Unknown | + + + | Ethnic Group | Unknown | + + + Author + + + | Author | [facility] | + + + | Organization | [facility] [employer] [facility] | + + + | [...] | | [address] | [address] [place] | injection) | | | | [place] | [address] | | | | | [address] | | | | | | [phone] | | | +--------+ + + + [...] [place] | | | | | | [address] | | | | | | | | +--------+ + + + + | 08/14/ | Procedure | Neurology | Elaine Andrews, | | | 2018 | visit | | MD Kim Patterson | | | | | | [place] | | | | | | [address] | | | | | | | | +--------+ + + + + | 10/21/ | Office | Pulmonology | Matt, | | | 2018 | Visit | | Esperanza Arora, | | | | | | MD [address] | | | | | | [place] [address] | | | | | | [phone] | | | | | | | | +--------+ + + + + as of this encounter Visit Diagnoses Not on filein this encounter"
--- OUTSIDE RECORDS SUMMARY | ~2018-07-09 | XMS | Encounter Summary ---
Demographics + + + | Address | [address] | | | [place] [address] | + + + | Home Phone | | + + + | Preferred Language | Unknown | + + + | Marital Status | | + + + | Faith Affiliation | Unknown | + + + | Race | Unknown | + + + | Ethnic Group | Unknown | + + + Author + + + | Author | [facility] | + + + | Organization | [facility] [employer] | + + + | Address | Unknown | + + + | Phone | Unavailable | + + + Support + + +---------+ + | Name | Relationship | Address | Phone | + + +---------+ + | Amado Araiza | ECON | Unknown | | + + +---------+ + Care Team Providers + +------+ + | Care Hothouse Worker Name | Role | Phone | [...] | | aura, not | [address], | [place], [place] | | | | | intractable, | [place] [address] | [address] Phone: | | | | | without | Phone: | [phone] | | | | | status | [phone] | Fax: | | | | | migrainosus | Fax: | [phone] | | | | | botox 200 | [phone] | | | | | | units for | | | | | | | migraine | | | | | | | Procedures | | | | | | | [place] | | | | | | | INJECTION,ON | | | | | | | ABOTULINUMTO | | | | | | | [place] | | | | | | | [...] | [address] | [address] [place] | without status | | | | [place], [place] | [address] | migrainosus (Primary | | | | [address] | | Dx) | | | | [phone] | | | +--------+ + + + [...] each site 20 u Procerus 5 u Field Crop Farmworker 2 sites, 5 units each site 10u [...] here. in this encounter Plan of Treatment +--------+ [...] [place] | | | | | | [id number] | | | | | | | | +--------+ + + + + | 10/21/ | Office | Pulmonology | Matt, | | | 2019 | Visit | | Esperanza Arora, | | | | | | MD [address] | | | | | | [place] [address] | | | | | | [phone] | | | | | | | [...]
--- OUTSIDE RECORDS SUMMARY | ~2018-07-09 | XMS | Encounter Summary ---
Demographics + + + | Address | [address] | | | [place] [address] | + + + | Home Phone | | + + + | Preferred Language | Unknown | + + + | Marital Status | | + + + | Worship Affiliation | Unknown | + + + | Race | Unknown | + + + | Ethnic Group | Unknown | + + + Author + + + | Author | Brent [facility] | + + + | Organization | [facility] [employer] [facility] | + + + | Address | Unknown | + + + | Phone | Unavailable | + + + Support + + +---------+ + | Name | Relationship | Address | Phone | + + +---------+ + | Amado Araiza | ECON | Unknown | | + + +---------+ + Care Team Providers + +------+ + | Care Soil Technician Name | Role | Phone | [...] | | aura, not | [address], | [place], [place] | | | | | intractable, | [place] [address] | [address] Phone: | | | | | without | Phone: | [phone] | | | | | status | [phone] | Fax: | | | | | migrainosus | Fax: | [phone] | | | | | botox 200 | [phone] | | | | | | units for | | | | | | | migraine | | | | | | | Procedures | | | | | | | [place] | | | | | | | INJECTION,ON | | | | | | | ABOTULINUMTO | | | | | | | [place] | | | | | | | [...] | [address] | [address] [place] | without status | | | | [place], [place] | [address] | migrainosus (Primary | | | | [address] | | Dx) | | | | [phone] | | | +--------+ + + + [...] each site 20 u Procerus 5 u Doubling Machine Operator 2 sites, 5 units each site 10u [...] [place] | | | | | | [id number] | | | | | | | | +--------+ + + + + | 10/21/ | Office | Pulmonology | Matt, | | | 2019 | Visit | | Esperanza Arora, | | | | | | MD [address] | | | | | | [place] [address] | | | | | | [phone] | | | | | | | [...]
--- OUTSIDE RECORDS SUMMARY | ~2018-07-09 | XMS | Encounter Summary ---
Demographics + + + | Address | [address] | | | [place] [address] | + + + | Home Phone | | + + + | Preferred Language | Unknown | + + + | Marital Status | | + + + | Christian Affiliation | Unknown | + + + | Race | Unknown | + + + | Ethnic Group | Unknown | + + + Author + + + | Author | Brent [employer] | + + + | Organization | [facility] | + + + | Address | Unknown | + + + | Phone | Unavailable | + + + Support + + +---------+ + | Name | Relationship | Address | Phone | + + +---------+ + | Amado Araiza | ECON | Unknown | | + + +---------+ + Care Team Providers + +------+ + | Care Spinning Lathe Operator Automatic Name | Role | Phone | + +------+ + | Mynor Kam MD | PCP | | + +------+ + Reason for Visit +--------+ + | Reason | Comments | +--------+ + | Other | Needs to speak w/ Hospitality Housekeeper | +--------+ + Encounter Details +--------+ + + + + | Date | Type | Department | Care Team | Description | +--------+ + + + + | 03/14/ | Telephone | [facility] | Elaine Andrews, | Other (Needs to | | 2019 | | [facility] | MD Kim Patterson | [facility] | | | | [address] | [address] [place] | Proofsheet Corrector ) | | | | [place] | [address] | | | | | [address] | | | | | | [phone] | | | +--------+ + + + [...] [place] | | | | | | [address] | | | | | | | | +--------+ + + + + | 08/14/ | Procedure | Neurology | Elaine Andrews, | | | 2018 | visit | | MD [address] | | | | | | [place] | | | | | | [address] | | | | | | | | +--------+ + + + + | 10/21/ | Office | Pulmonology | Matt, | | | 2018 | Visit | | Esperanza Arora, | | | | | | MD [address] | | | | | | [place] [address] | | | | | | [phone] | | | | | | | | +--------+ + + + + as of this encounter Visit Diagnoses Not on filein this encounter"
--- OUTSIDE RECORDS SUMMARY | ~2018-07-09 | XMS | Clinical Summary ---
Demographics + + + | Address | [address] | | | [place] [address] | + + + | Home Phone | | + + + | Preferred Language | Unknown | + + + | Marital Status | | + + + | Bahai Affiliation | Unknown | + + + | Race | Unknown | + + + | Ethnic Group | Unknown | + + + Author + + + | Author | [employer] | + + + | Organization | [facility] | + + + | Address | Unknown | + + + | Phone | Unavailable | + + + Support + + +---------+ + | Name | Relationship | Address | Phone | + + +---------+ + | Amado Salmon | ECON | Unknown | | + + +---------+ + Care Team Providers + +------+ + | Care Research Geneticist Name | Role | Phone | + [...] | 0/20 | | e | | 9[address]68 units capsule | | | | 19 [...] restrictive lung disease, | | followed by tailing hand. She is quite sedentary because of | [...] returns to | | her PCP and Signal Constructor, she'll be seen again if clinically | [...] & Plan: Palpitations. Clinically | | benign.&-day Side Trimmer, 06/01/2015: sinus rhythm, 64-168, | | averaging 91bpm, rare isolated PAC's, PVC's, no sustained ectopic | | tachycardia events, no AV block detected. | + + + + + | Epilepsy ([facility]) | 05/18/2015 | + + + | [...] + | Acute respiratory distress syndrome (ARDS) ([facility]) | 05/06/2013 | + + + [...] | | | 2018 | | | NEWS WIRE PHOTO OPERATOR | | +--------+ + + + + | 06/26/ | Telephone | | Peter Palm, | | | 2018 | | | NEWS WIRE PHOTO OPERATOR | | +--------+ + + + + [...] [place] | | | | | | [address] | | | | | | | | +--------+ + + + + | 08/14/ | Procedure | | Elaine Andrews, | | | 2018 | visit | | [address] | | | | | | Dr [facility] [place] | | | | | | [address] | | | | | | | | +--------+ + + + + | 10/21/ | Office | | Matt, | | | 2018 | Visit | | Esperanza Arora, | | | | | | [address] | | | | | | [place] [address] | | | | | | [phone] | | | | | | | [...] +------+-------+ + | MEDICARE | MEDICA | [id number] | | | [address] | | | RE | | | | [place] [address] | | | IP-OP | | | | | + +--------+ +------+-------+ + | MEDICAID | [employer] | [id number] | | | [address] | | | N | | | | [place] | | | [place] | | | | [address] | | | SHIPPING AND RECEIVING ASSOCIATE | | | | | + +--------+ [...] Self | [birth year] | Home: | [address] | | [place] | [place] | | 1966 | [phone] | [place] | | | [place] | | | [phone] | [address] | + +--------+ +--------+ + +
--- OUTSIDE RECORDS SUMMARY | ~2018-07-09 | XMS | Encounter Summary ---
Demographics + + + | Address | [address] | | | [place] [address] | + + + | Home Phone | | + + + | Preferred Language | Unknown | + + + | Marital Status | | + + + | Episcopal Affiliation | Unknown | + + + | Race | Unknown | + + + | Ethnic Group | Unknown | + + + Author + + + | Author | [employer] | + + + | Organization | [facility] | + + + | Address | Unknown | + + + | Phone | Unavailable | + + + Support + + +---------+ + | Name | Relationship | Address | Phone | + + +---------+ + | Amado Araiza | ECON | Unknown | | + + +---------+ + Care Team Providers + +------+ + | Care Security Administrator Name | Role | Phone | + +------+ + | Mynor Kam MD | PCP | | + +------+ + Encounter Details +--------+ + + + + | Date | Type | Department | Care Team | Description | +--------+ + + + + | 05/28/ | Documentati | [facility] | Elaine Andrews, | | | 2019 | on Only | Neuroscience Center | [address] | | | | | [address] | [place] | | | | | [place] | [address] | | | | | [address] | | | | | | [phone] | | | +--------+ + + + [...] [place] | | | | | | [id number] | | | | | | | | +--------+ + + + + | 08/14/ | Procedure | Neurology | Elaine Andrews, | | | 2018 | visit | | MD Kim Patterson | | | | | | [place] | | | | | | [address] | | | | | | | | +--------+ + + + + | 10/21/ | Office | Pulmonology | Matt, | | | 2018 | Visit | | Esperanza Arora, | | | | | | MD [address] | | | | | | [place] [address] | | | | | | [phone] | | | | | | | | +--------+ + + + + as of this encounter Visit Diagnoses Not on filein this encounter"
--- OUTSIDE RECORDS SUMMARY | ~2018-07-09 | XMS | Encounter Summary ---
Demographics + + + | Address | [address] | | | [place] [address] | + + + | Home Phone | | + + + | Preferred Language | Unknown | + + + | Marital Status | | + + + | Christianity Affiliation | Unknown | + + + | Race | Unknown | + + + | Ethnic Group | Unknown | + + + Author + + + | Author | Brent [employer] | + + + | Organization | [facility] | + + + | Address | Unknown | + + + | Phone | Unavailable | + + + Support + + +---------+ + | Name | Relationship | Address | Phone | + + +---------+ + | Amado Araiza | ECON | Unknown | | + + +---------+ + Care Team Providers + +------+ + | Care Director Of Clinical Education Name | Role | Phone | + +------+ + | Mynor Kam MD | PCP | | + +------+ + Encounter Details +--------+ + + + + | Date | Type | Department | Care Team | Description | +--------+ + + + + | 06/26/ | Telephone | [facility] | Peter Palm, | | | 2018 | | Pulmonology [address] | MEDICAL ASSISTANT | | | | | [address] | | | | | | [place] | | | | | | [address] | | | | | | [phone] | | | +--------+ + + + [...] [place] | | | | | | [address] | | | | | | | | +--------+ + + + + | 08/14/ | Procedure | Neurology | Elaine Andrews, | | | 2018 | visit | | MD [address] | | | | | | [place] | | | | | | [address] | | | | | | | | +--------+ + + + + | 10/21/ | Office | Pulmonology | Matt, | | | 2018 | Visit | | Esperanza Arora, | | | | | | MD [address] | | | | | | [place] [address] | | | | | | [phone] | | | | | | | | +--------+ + + + + as of this encounter Visit Diagnoses + + | Diagnosis | + + | Moderate persistent asthma without complication - Primary | + + | Unspecified asthma | + +"
--- OUTSIDE RECORDS SUMMARY | 2018-07-09 03:20 | XMS ---
PreManage Notification: FEDERICO SALMON Security Stock Selector Events No recent Security Events currently on file CRITERIA MET - [facility] Guidelines - [facility] EMERSON RICHARD Physician Casing Flusher 12/03/2017-Current PHONE: Unknown Kirk Ambrocio Production Or Plant Engineer/House Admin 12/31/2017-Current PHONE: [phone] Kirk Amrbocio Production Or Plant Engineer/House Admin 12/31/2017-Current PHONE: [phone] Kirk Ambrocio Primary Care 12/31/2017-Current PHONE: [phone] FRANCIS RICHARD Primary Care Current PHONE: [phone] Cheko Echavarria Current [place] PHONE: Unknown [facility] Current Orthopedic Surgery \T\ Fracture Clinic PHONE: Unknown Earl has no Care Guidelines for this patient. Care History Medical/Surgical 07/28/2017 [facility] - PCP office has been notified of current ED utilization and will schedule a follow up appointment and discuss the ED utilization with patient. Care Recommendation: This patient has had 5 or more Emergency Department visits in the last 12 months. Patient requires education on the scope and purpose of the ED as an acute care provider not a Primary Care Provider and should not be utilized for chronic conditions. If patient returns to ED please contact Community Health WorkerStacy at [phone]. These are guidelines and the provider should exercise clinical judgment when providing care. E.D. VISIT COUNT (12 MO.) [address] [facility] TOTAL 4 NOTE: Visits indicate total known visits. ED/UCC VISIT TRACKING (12 MO.) 07/09/2018 03:17 [facility] [place] TYPE: Emergency COMPLAINT: - BODY ACHES 08/17/2017 00:02 [facility] [place] TYPE: Emergency COMPLAINT: - VOMITTING DIAGNOSES: - termite treater (current) use of insulin - Type 2 diabetes mellitus without complications - Acute gastritis without bleeding - Nausea with vomiting, unspecified - Personal history of pneumonia (recurrent) - Other extermination inspector (current) drug therapy - Dehydration 07/26/2017 00:04 [facility] [place] TYPE: Emergency COMPLAINT: - VOMITTING DIAGNOSES: - nursing home (current) use of insulin - Other disorders of electrolyte and fluid balance, not elsewhere classified - Noninfective gastroenteritis and colitis, unspecified - Type 2 diabetes mellitus without complications - Other extermination inspector (current) drug therapy - Nausea with vomiting, unspecified 07/16/2017 11:49 [facility] [place] TYPE: Emergency COMPLAINT: - ALTERED LOC DIAGNOSES: - termite treater (current) use of insulin - Other extermination inspector (current) drug therapy - Unspecified asthma, uncomplicated - Other fatigue - Hypokalemia - Type 2 diabetes mellitus without complications INPATIENT VISIT TRACKING (12 MO.) No inpatient visits to display in this time frame [email or web address]
[2018-07-09] MEDS ORDERED: VERAPAMIL HCL40 MG PO (03:40)
[2018-07-09] MEDS ORDERED: WIXELA 250-501 EACH INH (03:42)
== END 2018-07-09 07:40 | disposition home or self-care (01) ==
LOC: ED 03:16
DX: G89.4 Chronic pain syndrome (principal); M79.7 Fibromyalgia; E11.9 Type 2 diabetes mellitus without complications; J45.909 Unspecified asthma, uncomplicated; Z87.01 Personal history of pneumonia (recurrent); Z90.49 Acquired absence of other specified parts of digestive tract; Z79.4 Long term (current) use of insulin; Z79.899 Other long term (current) drug therapy
CPT/HCPCS: 80053; 81001; 83690; 85025; 96361; 96374; 96375; 96376; 99284-25; J1170; J1885; J2405; J7030

== ENCOUNTER 2018-08-09 20:38 | Emergency (ER) | payer MEDICARE, OTHER ==
[~2018-08-09] VITALS: Ht 167.6 cm; Wt 121.6 kg
--- OUTSIDE RECORDS SUMMARY | ~2018-08-09 | XMS | Encounter Summary ---
Demographics + + + | Address | [address] | | | [place] [address] | + + + | Home Phone | | + + + | Preferred Language | Unknown | + + + | Marital Status | | + + + | Sikh Affiliation | Unknown | + + + | Race | Unknown | + + + | Ethnic Group | Unknown | + + + Author + + + | Author | Brent [employer] | + + + | Organization | [facility] [employer] [facility] | + + + | Address | Unknown | + + + | Phone | Unavailable | + + + Support + + +---------+ + | Name | Relationship | Address | Phone | + + +---------+ + | Amado Araiza | ECON | Unknown | | + + +---------+ + Care Team Providers + +------+ + | Care Practice Office Associate Name | Role | Phone | + +------+ + | Mynor Kam MD | PCP | | + +------+ + Reason for Visit + + + | Reason | Comments | + + + | Follow-up | Chronic migraine | + + + Consult and Treat (Routine) + +--------+ + + + + | Status | Reason | Specialty | Diagnoses / | Referred By | Referred To | | | | | Procedures | Contact | Contact | + +--------+ + + + + | Authorized | | Neurology | Diagnoses | | Darryl, | | | | | Other | Dmitri, | MD Elaine | | | | | pulmonary | Joseline Martins, | [address] | | | | | insufficienc | [address] | | | | | | y, not | [address] | [place] | | | | | elsewhere | Ave | [address] Phone: | | | | | classified | [place], | [phone] | | | | | Memory loss | [place] | Fax: | | | | | | [address] | [phone] | | | | | | Phone: | | | | | | | [phone] | | | | | | | Fax: | | | | | | | [phone] | | + +--------+ + + + + Encounter Details +--------+---------+ + + + | Date | Type | Department | Care Team | Description | +--------+---------+ + + + | 07/15/ | Office | [facility] | Elaine Andrews, | Chronic migraine | | 2019 | Visit | [facility] | [address] | (Primary Dx); | | | | [address] | [place] | Seizure disorder | | | | [place] | [id number] | ([facility]); Driving | | | | [address] | | safety issue; | | | | [phone] | | Breakthrough seizure | | | | | | ([facility]); Non | | | | | | compliance w | | | | | | medication regimen | +--------+---------+ + + + Social History + +-------+ +--------+------+ | Tobacco Use | Types | Packs/Day | Years | Date | | | | | Used | | + +-------+ +--------+------+ | Never Smoker | | | | | + +-------+ +--------+------+ + +---+---+---+ | Smokeless Tobacco: | | | | | Never Used | | | | + +---+---+---+ + + +---------+ + | Alcohol Use | Drinks/We | oz/Week | Comments | | | ek | | | + + +---------+ + | No | 0 | 0.0 | | | | Standard | | | | | drinks or | | | | | | | | | | equivalen | | | | | t | | | + + +---------+ + + + + | Sex Assigned at | Date Recorded | | | | + + + | Not on file | | + + + as of this encounter Last Filed Vital Signs + + + + | Vital Sign | Reading | Time Taken | + + + + | Blood Pressure | 173/87 | 07/15/2018 2:49 PM PDT | + + + + | Pulse | 111 | 07/15/2018 2:49 PM PDT | + + + + | Temperature | - | - | + + + + | Respiratory Rate | - | - | + + + + | Oxygen Saturation | 94% | 07/15/2018 2:49 PM PDT | + + + + | Inhaled Oxygen | - | - | | Concentration | | | + + + + | Weight | 142 kg (313 lb) | 07/15/2018 2:49 PM PDT | + + + + | Height | 167.6 cm (5' 6") | 07/15/2018 2:49 PM PDT | + + + + | Body Mass Index | 50.52 | 07/15/2018 2:49 PM PDT | + + + + in this encounter Instructions Patient Instructions - Elaine Andrews MD - 07/15/2018 3:05 PM PDTIf you have any more seizures, call the clinic. We mayhave to add another seizure medication as you are maxed out on Gabapentin. We may consider Zonegran, Topamax, Tegretol Zonisamide capsules Brand Name: Zonegran What is this medicine? ZONISAMIDE (filomena NIS a mide) is used to control partial seizures in adults with epilepsy. How should I use this medicine? Take this medicine by mouth with a glass of water. Follow the directions on the prescriptio n label. Swallow whole. Do not break open the capsule. This medicine may be taken with or wi thout food. Take your doses at regular intervals. Do not take your medicine more often than directed. Do not stop taking this medicine unless instructed by your doctor or health care p yolanda. A special MedGuide will be given to you by the pharmacist with each prescription and refill . Be sure to read this information carefully each time. Talk to your automotive parts counterperson regarding the use of this medicine in children. While this drug m ay be prescribed for children as young as 16 years of age for selected conditions, precautio ns do apply. What side effects may I notice from receiving this medicine? Side effects that you should report to your doctor or health care giver as soon as p ossible: allergic reactions like skin rash, itching or hives, swelling of the face, lips, or tong ue decreased sweating or a rise in body temperature, especially in patients under 17 years old difficulty breathing or tightening of the throat feeling faint or lightheaded, falls fever, sore throat, sores in your mouth, or bruising easily hallucination, loss of contact with reality irregular heartbeat loss of appetite redness, blistering, peeling or loosening of the skin, including inside the mouth severe drowsiness, difficulty concentrating, or coordination problems speech or language problems sudden back pain, abdominal pain, pain when urinating, bloody or dark urine suicidal thoughts or depression unusual changes in behavior or mood unusually weak or tired vomiting Side effects that usually do not require medical attention (report to your doctor or health care giver if they continue or are bothersome): headache nausea What may interact with this medicine? This medicine may interact with the following medications alcohol antihistamines for allergy, cough and cold antiviral medicines for HIV or AIDS certain antibiotics like rifabutin, rifampin certain medicines for anxiety or sleep certain medicines for depression like amitriptyline, fluoxetine, sertraline certain medicines for seizures like carbamazepine, phenobarbital, phenytoin, topiramate digoxin diuretics like acetazolamide, dichlorphenamide general anesthetics like halothane, isoflurane, methoxyflurane, propofol local anesthetics like lidocaine, pramoxine, tetracaine medicines that relax muscles for surgery narcotic medicines for pain phenothiazines like chlorpromazine, mesoridazine, prochlorperazine, thioridazine quinidine What if I miss a dose? If you miss a dose, take it as soon as you can. If it is almost time for your next dose, ta ke only that dose. Do not take double or extra doses. Where should I keep my medicine? Keep out of reach of children. Store at room temperature between 15 and 30 degrees C (59 and 86 degrees F). Keep in a dry place protected from light. Throw away any unused medicine after the expiration date. What should I tell my health care provider before I take this medicine? They need to know if you have any of these conditions: dehydrated diarrhea history of metabolic acidosis (too much acid in your blood) ketogenic diet kidney disease liver disease lung disease osteoporosis suicidal thoughts, plans, or attempt; a previous suicide attempt by you or a family memb er an unusual or allergic reaction to zonisamide, sulfa drugs, other medicines, foods, dyes , or preservatives or trying to get breast-feeding What should I watch for while using this medicine? Visit your doctor or health care giver for regular checks on your progress. Wear a m edical identification bracelet or chain to say you have epilepsy, and carry a card that list s all your medications. It is important to take this medicine exactly as directed. When first starting treatment, y our dose will need to be adjusted slowly. It may take weeks or months before your dose is st able. You should contact your doctor or health care giver if your seizures get worse or if you have any new types of seizures. Do not stop taking except on your doctor's advice. You may develop a severe reaction. Your doctor will tell you how much medicine to take. You may get drowsy, dizzy, or have blurred vision. Do not drive, use machinery, or do anyth ing that needs mental alertness until you know how this medicine affects you. To reduce dizz y or fainting spells, do not sit or stand up quickly, especially if you are an older patient . Alcohol can increase drowsiness and dizziness. Avoid alcoholic drinks. Avoid extreme heat. This medicine can cause you to sweat less than normal. Your body temper ature could increase to dangerous levels, which may lead to heat stroke. This medicine may increase the chance of developing metabolic acidosis. If left untreated, this can cause kidney stones, bone disease, or slowed growth in children. Symptoms include b reathing fast, fatigue, loss of appetite, irregular heartbeat, or loss of consciousness. Dawson l your doctor immediately if you experience any of these side effects. Also, tell your docto r about any surgery you plan on having while taking this medicine since this may increase yo ur risk for metabolic acidosis. This medicines may increase the risk of kidney stones. Drinking 6 to 8 glasses of water a d ay may help prevent the formation of kidney stones. The use of this medicine may increase the chance of suicidal thoughts or actions. Pay speci al attention to how you are responding while on this medicine. Any worsening of mood, or tho ughts of suicide or dying should be reported to your health care giver right away. Women who become while using this medicine may enroll in the [place]ptic Drug Registry by calling . This registry collects informatio n about the safety of antiepileptic drug use during . NOTE:This sheet is a summary. It may not cover all possible information. If you have questi ons about this medicine, talk to your doctor, pharmacist, or health care provider. Copyright 2019 [employer] Safety and legal instructions I explained to the patient that per [place] State law she should not to drive a vehicle or vessel of any kind, swim, bathe alone, boat, scuba, work on heights, operate heavy machines or cook on open fire for six (6) months from any event of loss of consciousness, altered sacha reness or loss of body control.in this encounter Progress Notes Elaine Andrews MD - 07/15/2018 3:05 PM PDTFormatting of this note may be different fro m the original. Subjective: Patient ID: Gilma Araiza is a 52 y.o. female. HPI The following portions of the patient's history were reviewed and updated as appropriate an d is available elsewhere in the record: allergies, current medications, past family history, past medical history, past social history, past surgical history and problem list. Gilma is a 52 yo lady here by herself for intractable migraines. Last visit was on 12/18/17 Background She has h/o DM type 2, morbid obesity, osteoarthritis, fibromyalgia, H1N1 pneumonia 2013, A RDS, seen at [facility] following complications and being comatose. She reports h/o seizures as a child - age 9 - grandmal seizures - seen at [facility] - on phenobarbital for [address] years[address] by Dr De Jesus at [place] at age 15. Did not dejuan nue medications. She had one grandmal after of her first daughter - 31 years ago. Was tired after a [employer] bus drive from [place] to [place]. She has another perioperative seizure a few years ago (after cholecystectomy). She reports 2 grandmal unwitnessed seizures 2015 - at home - fell and loss consciousness - cracked a glass door. Then went to bed and lost consciousness. Not sure how long she was out . No urinary incontinence. Had a sleep deprived EEG- 11/11/14 - done at [facility] and read by Kat Fernandez ([facility]). "Abnormal awake and drowsy EEG - frequent spike and wave discharges with a generalized fiel d though consistently with a left dagsnk-ereujt-olcxdhml lead-in, with activation during hyp erventilation and photic stimulation. In the context of clinical history, this is most consi stent with a primary generalized epilepsy though focal onset with rapid bilateral synchrony cannot be ruled out entirely. One possible clinic event of subtle myoclonus associated with spike and wave discharges during photic stimulation though video quality was poor" Has had MRI brain done at [facility] in June 2015 - uploaded in [facility] including report. Normal structure. She complains of short-term memory loss since she was hospitalized at [facility] in 2013. F eels it has worsened. Does not drive. Unable to cook on the stove. Does not drive. She has a caregiver who comes in to help. Underwent cognitive testing 12/18/17- MMSE 21/30, WACE 58/100. For chronic headaches Gilma trialed Verapamil, Topamax as noted in prior chart notes. As she was having at least 2 migraines a week, some lasting more than 24 hours, she was advised a Botox injection trial . Continued to have occasional jerking of her arms. No convulsive seizures. Is on Gabapentin 900mg tid. She has undergone 2 Botox injection cycles on 02/10/18 and 05/22/18. Here for follow up today Reports that she continues to have 4-5 days of migraines in a week. Retired to a dark room and rests. While she initially reported improvement, at this time, she is not convinced. She did notice a 20 percent improvement in intensity at best. C/o running out of gabapentin about 2 weeks over the weekend. Restarted in 2 days. Noticed an increase in seizures - about 3 grandmal events witnessed by . Braxton lightheaded and then twitched. Lost consciousness. However has not had any more in 2 weeks. Current Outpatient Prescriptions: albuterol (PROVENTIL) (2.5 MG/3ML) 0.083% nebulizer solution, Take 3 mLs by nebulizati on every 6 (six) hours as needed for Wheezing., Disp: 336 mL, Rfl: 11 DULoxetine (CYMBALTA) 30 MG capsule, Take 90 mg by mouth daily., Disp: , Rfl: DULoxetine (CYMBALTA) [address] capsule, Take 60 mg by mouth., Disp: , Rfl: 0 Fluticasone Furoate-Vilanterol 200-25 MCG/INH AEPB, Inhale 1 puff into the lungs daily ., Disp: 1 each, Rfl: 11 fluticasone-salmeterol (ADVAIR) 250-50 MCG/DOSE, Inhale 1 puff into the lungs 2 (two) times daily., Disp: 60 each, Rfl: 5 gabapentin (NEURONTIN) 300 MG capsule, Take 900 mg by mouth 3 (three) times daily., Di sp: , Rfl: hydrOXYzine (ATARAX) 25 MG tablet, TK 1 T PO Q 8 H UTD PRA, Disp: , Rfl: 3 insulin lispro, human, (HUMALOG) 100 UNIT/ML injection, Inject 35 Units into the skin 2 (two) times daily as needed. Sliding scale , Disp: , Rfl: LANTUS SOLOSTAR 100 UNIT/ML injection, Inject 35 Units into the skin 2 (two) times ginger ly., Disp: , Rfl: 1 losartan (COZAAR) 50 MG tablet, Take 50 mg by mouth daily., Disp: , Rfl: montelukast (SINGULAIR) 10 MG tablet, Take 1 tablet by mouth nightly., Disp: 30 tablet , Rfl: 11 tizanidine (ZANAFLEX) 4 MG capsule, Taking 2 tabs 2 times a day, Disp: , Rfl: 2 vitamin D2, ergocalciferol, 62287 units capsule, TK 1 C PO ONCE A WEEK FOR 6 MONTHS, D isp: , Rfl: 0 Review of Systems All other systems reviewed and negative for new concerns except as mentioned in HPI Objective: Physical Exam BP 173/87 (BP Location: Right forearm, Patient Position: Sitting) | Pulse 111 | Ht 1.676 m (5' 6") | Wt 142 kg (313 lb) | SpO2 94% | BMI 50.52 kg/m Middle aged lady, morbidly obese, in NAD Focused neurological exam Alert, oriented, fluent speech. EOMI. No nystagmus. Face symmetric. RS -b/l breath sounds clear CV - S1S2 heard. No murmurs Assessment and Plan: IMPRESSION Primary idiopathic epilepsy with myoclonic jerks - stable since November 2015. Recent breakth rough seizures 2 weeks when she ran out of medication. Vertigo/migrainous dizziness and migraine aura - intensifying migraines since June 2017 (s tarted in 2013). Deconditioning - obesity and peripheral neuropathy - contributing to falls Memory impairment - may be due to h/o severe illness/comatose state in 2013 as well as use of psychoactive medications such as cymbalta and lorazepam and insomnia Failed to respond to Botox injections (less than 50 percent improvement in frequency or int ensity) PLAN 1. For seizure prophylaxis Continue Gabapentin 900mg tid If you have any more seizures, call the clinic. We mayhave to add another seizure medicatio n as you are maxed out on Gabapentin. We may consider Zonegran, Topamax, Tegretol Provided information about Zonegran in AVS 2. Prophylaxis for migraine with aura/dizziness Has failed Topamax and Verapamil in 2016- Use CPAP regularly Discussed about CGRP blockers such as Aimovig or Emgality, and transcutaneous stimulation kat arnold Mckeon. Will discuss further at follow up as she expressed financial constraints. May need a trial of medications and if helpful, can consider talking to insurance for approval. 3. For memory Do not drive or cook on open flame due to forgetfulness. Plan to repeat WACE test in December 2018 She needs supervision for cooking. Needs a caregiver for transport and medications/assistan ce paying bills. Safety and legal instructions I explained to the patient that per [place] State law she should not to drive a vehicle or vessel of any kind, swim, bathe alone, boat, scuba, work on heights, operate heavy machines or cook on open fire for six (6) months from any event of loss of consciousness, altered sacha reness or loss of body control. Follow up in 3 months in this encounter Plan of Treatment +--------+---------+ + + + | Date | Type | Specialty | Care Team | Description | +--------+---------+ + + + | 10/21/ | Office | Pulmonology | Matt, | | | 2019 | Visit | | [place], | | | | | | [address] | | | | | | [place] [address] | | | | | | [phone] | | | | | | | | +--------+---------+ + + + | 11/12/ | Office | Neurology | Alfredoeulaliayoni Elaine, | | | 2019 | Visit | | [address] | | | | | | [place] | | | | | | [address] | | | | | | | | +--------+---------+ + + + as of this encounter Visit Diagnoses + + | Diagnosis | + + | Chronic migraine - Primary | + + | Chronic migraine without aura, without mention of intractable migraine without mention | | of status migrainosus | + + | Seizure disorder (HCC) | + + | Unspecified epilepsy without mention of intractable epilepsy | + + | Driving safety issue | + + | Other specified personal history presenting hazards to health | + + | Breakthrough seizure (HCC) | + + | Unspecified epilepsy with intractable epilepsy | + + | Non compliance w medication regimen | + + | Personal history of noncompliance with medical treatment, presenting hazards to health | + +
--- OUTSIDE RECORDS SUMMARY | ~2018-08-09 | XMS | Encounter Summary ---
Demographics + + + | Address | [address] | | | [place] [address] | + + + | Home Phone | | + + + | Preferred Language | Unknown | + + + | Marital Status | | + + + | Religion Affiliation | Unknown | + + + | Race | Unknown | + + + | Ethnic Group | Unknown | + + + Author + + + | Author | [facility] [employer] | + + + | Organization | [facility] | + + + | Address | Unknown | + + + | Phone | Unavailable | + + + Support + + +---------+ + | Name | Relationship | Address | Phone | + + +---------+ + | Amado Araiza | ECON | Unknown | | + + +---------+ + Care Team Providers + +------+ + | Care Aoc Director Intelligence Officer Name | Role | Phone | + +------+ + | Mynor Kam MD | PCP | | + +------+ + Reason for Visit +--------+ + | Reason | Comments | +--------+ + | Other | Needs to speak w/ Inspector Golf Ball | +--------+ + Encounter Details +--------+ + + + + | Date | Type | Department | Care Team | Description | +--------+ + + + + | 03/14/ | Telephone | [facility] | Elaine Andrews, | Other (Needs to | | 2019 | | [facility] | MD Kim Patterson | [place] [facility]/ [facility] | | | | [address] | [address] [place] | [employer]immer ) | | | | [place] | [address] | | | | | [address] | | | | | | [phone] | | | +--------+ + + + [...] | | | | | [place] [address] | | | | | | [phone] | | | | | | | | +--------+---------+ + + + | 11/12/ | Office | Neurology | Elaine Andrews, | | | 2019 | Visit | | MD Kim Patterson | | | | | | [place] | | | | | | [phone] | | | | | | | | +--------+---------+ + + + as of this encounter Visit Diagnoses Not on filein this encounter"
--- OUTSIDE RECORDS SUMMARY | ~2018-08-09 | XMS | Encounter Summary ---
Demographics + + + | Address | [address] | | | [place] [address] | + + + | Home Phone | | + + + | Preferred Language | Unknown | + + + | Marital Status | | + + + | Anglican Affiliation | Unknown | + + + | Race | Unknown | + + + | Ethnic Group | Unknown | + + + Author + + + | Author | [employer] | + + + | Organization | [facility] [employer] [facility] | + + + | Address | Unknown | + + + | Phone | Unavailable | + + + Support + + +---------+ + | Name | Relationship | Address | Phone | + + +---------+ + | Amado Araiza | ECON | Unknown | | + + +---------+ + Care Team Providers + +------+ + | Care Electrical Superintendent Name | Role | Phone | + +------+ + | Mynor Kam MD | PCP | | + +------+ + Encounter Details +--------+ + + + + | Date | Type | Department | Care Team | Description | +--------+ + + + + | 06/26/ | Telephone | [facility] | Peter [place], | | | 2018 | | Pulmonology [address]PERATOR | | | | | [address] | | | | | | [place] | | | | | | [address] | | | | | | [phone] | | | +--------+ + + + [...] | 10/21/ | Office | Pulmonology | [facility], | | | 2018 | Visit | | [place], | | | | | | MD [address] | | | | | | [place] [address] | | | | | | [phone] | | | | | | | | +--------+---------+ + + + | 11/12/ | Office | Neurology | Elaine Andrews, | | | 2018 | Visit | | MD Kim Patterson | | | | | | [place] | | | | | | [phone] | | | | | | | | +--------+---------+ + + + as of this encounter Visit Diagnoses Not on filein this encounter"
--- OUTSIDE RECORDS SUMMARY | ~2018-08-09 | XMS | Encounter Summary ---
Demographics + + + | Address | [address] | | | [place] [address] | + + + | Home Phone | | + + + | Preferred Language | Unknown | + + + | Marital Status | | + + + | Amish Affiliation | Unknown | + + + | Race | Unknown | + + + | Ethnic Group | Unknown | + + + Author + + + | Author | Brent [employer] | + + + | Organization | [facility] [employer] [facility] | + + + | Address | Unknown | + + + | Phone | Unavailable | + + + Support + + +---------+ + | Name | Relationship | Address | Phone | + + +---------+ + | Amado Araiza | ECON | Unknown | | + + +---------+ + Care Team Providers + +------+ + | Care Signal Worker Helper Name | Role | Phone | + +------+ + | Mynor Kam MD | PCP | | + +------+ + Reason for Visit +--------+ + | Reason | Comments | +--------+ + | Other | Needs to speak w/ Assistant Restaurant General Manager | +--------+ + Encounter Details +--------+ + + + + | Date | Type | Department | Care Team | Description | +--------+ + + + + | 03/14/ | Telephone | [facility] | Elaine Andrews, | Other (Needs to | | 2019 | | [facility] | MD Kim Patterson | [place] [facility] | | | | [address] | [address] [place] | [employer] ) | | | | [place] | [address] | | | | | [address] | | | | | | [phone] | | | +--------+ + + + [...] | | | | | [place] [address] | | | | | | [phone] | | | | | | | | +--------+---------+ + + + | 11/12/ | Office | Neurology | Elaine Andrews, | | | 2019 | Visit | | MD Kim Patterson | | | | | | [place] | | | | | | [phone] | | | | | | | | +--------+---------+ + + + as of this encounter Visit Diagnoses Not on filein this encounter"
--- OUTSIDE RECORDS SUMMARY | ~2018-08-09 | XMS | Clinical Summary ---
Demographics + + + | Address | [address] | | | [place] [address] | + + + | Home Phone | | + + + | Preferred Language | Unknown | + + + | Marital Status | | + + + | Taoism Affiliation | Unknown | + + + | Race | Unknown | + + + | Ethnic Group | Unknown | + + + Author + + + | Author | [employer] | + + + | Organization | [facility] [employer] [facility] | + + + | Address | Unknown | + + + | Phone | Unavailable | + + + Support + + +---------+ + | Name | Relationship | Address | Phone | + + +---------+ + | Amado Salmon | ECON | Unknown | | + + +---------+ + Care Team Providers + +------+ + | Care Line Servicer Name | Role | Phone | + [...] | 0/20 | | e | | [id number] units capsule | | | | 19 [...] into | 1 each | 11 | 06/06 | | Activ | | Furoate-Vilanterol | the lungs daily. | | | / | | e | | 200-25 MCG/INH [...] restrictive lung disease, | | followed by environmental compliance engineer. She is quite sedentary because of [...] returns to | | her PCP and Home Care Nurse, she'll be seen again if clinically | [...] & Plan: Palpitations. Clinically | | benign.&-day Inker, 06/01/2015: sinus rhythm, 64-168, | | averaging 91bpm, rare isolated PAC's, PVC's, no sustained ectopic | | tachycardia events, no AV block detected. | + + + + + | Epilepsy (HCC) | 05/18/2015 | + + + | Status post tracheostomy ([facility]) | 03/06/2015 | + + + | Gastroesophageal reflux disease without esophagitis | 11/01/2014 | + + + | Restrictive lung disease | 01/17/2014 | + + + | Chronic respiratory failure ([facility]) | 10/07/2013 | + + + | [...] + | Acute respiratory distress syndrome (ARDS) ([facility]) | 05/06/2013 | + + + | [...] | Office | | Elaine Andrews, | Chronic migraine | | 2019 | Visit | | MD | (Primary Dx); | | | | | | Seizure disorder | | | | | | ([facility]); Driving | | | | | | safety issue; | | | | | | Breakthrough seizure | | | | | | ([facility]); Non | | | | | | compliance w | | | | | | medication regimen | +--------+ + + + + | 06/26/ | Telephone | | Peter Palm, | | | 2018 | | | REEL FED PRINTER | | +--------+ + + + + | 06/26/ | Telephone | | Peter Palm, | | | 2018 | | | REEL FED PRINTER | | +--------+ + + + + | 06/18/ | Telephone | | Elaine Andrews, | Other (Needs to | | 2018 | | | MD | speak w/ Medical | | | | | | Phototypesetting Equipment Monitor ) | +--------+ + + + + [...] injection) | +--------+ + + + + from [...] PM PDT | + + + + Plan of Treatment +--------+---------+ + + + | Date | Type | Specialty | Care Team | Description | +--------+---------+ + + + | 10/21/ | Office | | Matt, | | | 2018 | Visit | | Esperanza Arora, | | | | | | MD [address] | | | | | | [place] [address] | | | | | | [phone] | | | | | | | | +--------+---------+ + + + | 11/12/ | Office | | Elaine Andrews, | | | 2018 | Visit | | MD [address] | | | | | | [place] | | | | | | [phone] | | | | | | | | +--------+---------+ + + + + + + + [...] + + + | Cervical Cancer | 05/14/199 | | | | Screening (Pap) | [...] +------+-------+ + | MEDICARE | MEDICA | [id number] | | | [address] | | | RE | | | | [place] [address] | | | IP-OP | | | | | + +--------+ +------+-------+ + | MEDICAID | [place] | [id number] | | | [address] | | | N | | | | [place] | | | [place] | | | | [address] | | | MORNING NEWS ANCHOR | | | | | + +--------+ [...] | Self | [birth year] | Home: | | | STEVE | al/Greg | | 1966 | [phone] | [place] | | | [address] | | | [address] | [phone] | + +--------+ +--------+ + +
--- OUTSIDE RECORDS SUMMARY | ~2018-08-09 | XMS | Encounter Summary ---
Demographics + + + | Address | [address] | | | [place] [address] | + + + | Home Phone | | + + + | Preferred Language | Unknown | + + + | Marital Status | | + + + | Evangelical Affiliation | Unknown | + + + | Race | Unknown | + + + | Ethnic Group | Unknown | + + + Author + + + | Author | [employer] | + + + | Organization | [facility] [employer] [facility] | + + + | Address | Unknown | + + + | Phone | Unavailable | + + + Support + + +---------+ + | Name | Relationship | Address | Phone | + + +---------+ + | Amado Araiza | ECON | Unknown | | + + +---------+ + Care Team Providers + +------+ + | Care Environmental Resource Specialist Name | Role | Phone | + +------+ + | Mynor Kam MD | PCP | | + +------+ + Reason for Visit + + + | Reason | Comments | + + + | Procedure | | + + + Botox (Routine) + +--------+ + + + + | Status | Reason | Specialty | Diagnoses / | Referred By | Referred To | | | | | Procedures | Contact | Contact | + +--------+ + + + + | Authorized | | Neurology | Diagnoses | Darryl, | Darryl, | | | | | Chronic | MD Elaine | MD Elaine | | | | | migraine | [address] | | | | | without | [address] | | | | | | aura, not | [place], | [place], [place] | | | | | intractable, | [place] [address] | [address] Phone: | | | | | without | Phone: | [phone] | | | | | status | [phone] | Fax: | | | | | migrainosus | Fax: | [phone] | | | | | botox 200 | [phone] | | | | | | units for | | | | | | | migraine | | | | | | | Procedures | | | | | | | DC | | | | | | | INJECTION,ON | | | | | | | ABOTULINUMTO | | | | | | | XINA DC | | | | | | | CHEMODERVATE | | | | | | | | | | | | | | FACIAL/TRIGE | | | | | | | M/CERV MUSC | | | | | | | MIGRAINE | | | | | | | NEURO | | | | | | | INJECTION | | | + +--------+ + + + + Encounter Details +--------+ + + + + | Date | Type | Department | Care Team | Description | +--------+ + + + + | 02/15/ | Procedure | [facility] | Elaine Andrews, | Intractable migraine | | 2019 | visit [facility] | [address] | without aura and | | | | [address] | [address] [place] | without status | | | | [place], [place] | [address] | migrainosus (Primary | | | | [address] | | Dx) | | | | [phone] | | | +--------+ + + + [...] + + + | Blood Pressure | 141/72 | 05/22/2018 8:58 AM PST | + + + + | Pulse | 89 | 05/22/2018 8:58 AM PST | + + + + | Temperature | - | - | + + + + | Respiratory Rate | - | - | + + + + | Oxygen Saturation | - | - | + + + + | Inhaled Oxygen | - | - | | Concentration | | | + + + + | Weight | 130.2 kg (287 lb) | 05/22/2018 8:58 AM PST | + + + + | Height | 167.6 cm (5' 6") | 05/22/2018 8:58 AM PST | + + + + | Body Mass Index | 46.32 | 05/22/2018 8:58 AM PST | + + + + in this encounter Progress Notes Elaine Andrews MD - 05/22/2018 8:45 AM PSTFormatting of this note may be different fro m the original. Subjective: Patient ID: Gilma Araiza is a 52 y.o. female here for repeat Botox injections for migrai ne prophylaxis HPI The following portions of the patient's history were reviewed and updated as appropriate an d is available elsewhere in the record: allergies, current medications, past family history, past medical history, past social history, past surgical history and problem list. Gilma is a 52 yo lady here by herself for repeat Botox injections for intractable migraines . She had been established here since May 2015 for seizure disorder. She has h/o DM typ e 2, morbid obesity, osteoarthritis, fibromyalgia, H1N1 pneumonia in 2013 with ARDS/coma and survived that. She received Botox injections 1st cycle on 02/10/18. She tolerated that well. She reports sl ight improvement in headaches overall but has not kept a log. Is not sure how frequent they are and attributes this to poor memory. Approximately 3 a week. In the past, headaches did not improve with Topamax 100mg daily. No major side effect. Was weaned off in Dec 2017. Started Verapamil. Did not help and worsened sleep. Is on Duloxetine and Gabapentin but not helping with headaches. Is interested in repeating Botox injections. Current Outpatient Prescriptions: azithromycin (ZITHROMAX) 250 MG [...] mg by mouth., Disp: , Rfl: 0 gabapentin (NEURONTIN) 300 MG capsule, Take 900 [...] mg by mouth daily., Disp: , Rfl: predniSONE (DELTASONE) 20 MG tablet, Take 2 tabs daily for 3 days, then 1 tab daily fo r 5 days then STOP., Disp: 11 tablet, Rfl: 0 tizanidine (ZANAFLEX) 4 MG capsule, Taking 2 tabs 2 times a day, Disp: , Rfl: 2 verapamil (CALAN) 40 MG tablet, TAKE 1 TABLET BY MOUTH EVERY AM FOR 1 WEEK, THEN INCRE ASE INSTRUSTED TO 2 TWICE DAILY, Disp: 360 tablet, Rfl: 1 albuterol (PROVENTIL) (2.5 MG/3ML) 0.083% nebulizer solution, Take 3 mLs by nebulizati on every 6 (six) hours as needed for Wheezing., Disp: 336 mL, Rfl: 11 montelukast (SINGULAIR) 10 MG tablet, Take 1 tablet by mouth nightly., Disp: 30 tablet , Rfl: 11 Review of Systems As in HPI. No new concerns or side effects from Botox injections in 02/2018. Objective: Physical Exam BP 141/72 (BP Location: Left forearm, Patient Position: Sitting) | Pulse 89 | Ht 1.676 m (5' 6") | Wt 130.2 kg (287 lb) | ? No | BMI 46.32 kg/m Assessment and Plan: Impression Vertigo/migrainous dizziness and migraine aura - intensifying migraines since June 2017 (s tarted in 2013). Responsive to Botox injections - about 2-3 migraines a week. Botox injection: Procedure I have gone over benefits and possible side effects and reasonable expectation from Onabot ulinumtoxin A injections for chronic migraines again today. Risks include spread of toxin effect beyond site of local injection and may include asthen ia, generalized muscle weakness, diplopia, ptosis, dysphagia, dysphonia, dysarthria, urinary incontinence and breathing difficulties which may occur hours to weeks after injection. May also experience hypersensitivity reactions including soft tissue edema, urticaria, serum si ckness, anaphylaxis, dyspnea which may need emergent treatment. Other adverse effects includ e bleeding or infection at the site, injection-site pain, musculoskeletal pain, myalgia, hyp ertension and muscle spasms. Patient elected to proceed with the injection and written consent was obtained for intramus cular injection of Botulinumtoxin injection. The patient denies any new medications, specifically no new antibiotics or muscle relaxants and no pending surgery. No contraindications. Skin was cleansed with alcohol. Dilutions: 100u Botox in 2 ml of preservative free normal saline, 5 units /0.1ml. (2 vials of 100 units were reconstituted - 155 units were drawn up in 4 syringes each 1ml) 30G 1/2 '' needle was used for the injections. Sites/Doses: Total Frontalis 2 sites each side, 5 units each site 20 u Procerus 5 u Garage Door Opener Installer 2 sites, 5 units each site 10u Temporalis 4 sites each side, 5 units each site 40 u Occipitalis 3 sites each side, 5 units each site 30 u Cervical paraspinal: 2 sites each side, 5 units each site 20 u Trapezius 3 sites each side, 5 units each site 30 u Total 155u 155 units in the vials were used, and the remaining 45 units of unavoidable waste was disca rded safely. Summary: The patient tolerated the total injected dose of 155 units of Botox without immediate compl ications. I have advised the patient to return for repeat Botox treatment in approximately 3 months. She was given a headache diary to maintain. Call for any new neurological symptoms or questions. Patient has been instructed to call EMS or go to ER with any emergent neurological symptoms . As patient was c/o significant memory loss during this encounter, advised her to discuss th is with PCP and if needed to obtain a new referral for evaluation here. in this encounter Plan of Treatment +--------+---------+ + + + | Date | Type | Specialty | Care Team | Description | +--------+---------+ + + + | 10/21/ | Office | Pulmonology | Matt, | | | 2018 | Visit | | Esperanza Arora, | | | | | | MD [address] | | | | | | [place] [address] | | | | | | [phone] | | | | | | | | +--------+---------+ + + + | 11/12/ | Office | Neurology | Elaine Andrews, | | | 2018 | Visit | | MD [address] | | | | | | [place] | | | | | | [phone] | | | | | | | | +--------+---------+ + + + as of this encounter Visit Diagnoses + + | Diagnosis | + + | Intractable migraine without aura and without status migrainosus - Primary | + + | Migraine without aura, with intractable migraine, so stated, without mention of status | | migrainosus | + + Administered Medications + +--------+ +-------+------+------+ | Medication Order | MAR | Action | Dose | Rate | Site | | | Action | Date | | | | + +--------+ +-------+------+------+ | botulinum toxin type A (BOTOX) | Given | | 200 | | | | injection 200 Units 200 Units, | | 9 10:03 | Units | | | | Intramuscular, Once, 05/22/18 | | PST | | | | | at 1030, For 1 dose | | | | | | + +--------+ +-------+------+------+ +---+---+ | | | +---+---+ in this encounter
--- OUTSIDE RECORDS SUMMARY | ~2018-08-09 | XMS | Encounter Summary ---
Demographics + + + | Address | [address] | | | [place] [address] | + + + | Home Phone | | + + + | Preferred Language | Unknown | + + + | Marital Status | | + + + | Jain Affiliation | Unknown | + + + | Race | Unknown | + + + | Ethnic Group | Unknown | + + + Author + + + | Author | [employer] | + + + | Organization | [facility] [employer] [facility] | + + + | Address | Unknown | + + + | Phone | Unavailable | + + + Support + + +---------+ + | Name | Relationship | Address | Phone | + + +---------+ + | Amado Araiza | ECON | Unknown | | + + +---------+ + Care Team Providers + +------+ + | Care Forest Manager Name | Role | Phone | [...] | | [address] | [address] [place] | injection) | | | | [place] | [address] | | | | | [address] | | | | | | [phone] | | | +--------+ + + + [...] | | | | | [place] [address] | | | | | | [phone] | | | | | | | | +--------+---------+ + + + | 11/12/ | Office | Neurology | Elaine Andrews, | | | 2019 | Visit | | MD [address] | | | | | | [place] | | | | | | [phone] | | | | | | | | +--------+---------+ + + + as of this encounter Visit Diagnoses Not on filein this encounter"
--- OUTSIDE RECORDS SUMMARY | ~2018-08-09 | XMS | Clinical Summary ---
Demographics + + + | Address | [address] | | | [place] [address] | + + + | Home Phone | | + + + | Preferred Language | Unknown | + + + | Marital Status | Unknown | + + + | Jewish Affiliation | Unknown | + + + | Race | Unknown | + + + | Ethnic Group | Unknown | + + + Author + + + | Author | [facility] | + + + | Organization | [facility] | + + + | Address | Unknown | + + + | Phone | Unavailable | + + + Care Team Providers + +------+ + | Care Project Developer Name | Role | Phone | + +------+ + PP | Unavailable | + +------+ + Source Comments FAB is fully live on both [facility] and [facility] Allergies Not on File Current Medications [...]
--- OUTSIDE RECORDS SUMMARY | ~2018-08-09 | XMS | Encounter Summary ---
Demographics + + + | Address | [address] | | | [place] [address] | + + + | Home Phone | | + + + | Preferred Language | Unknown | + + + | Marital Status | | + + + | Zoroastrian Affiliation | Unknown | + + + | Race | Unknown | + + + | Ethnic Group | Unknown | + + + Author + + + | Author | [employer] | + + + | Organization | [facility] [facility] | + + + | Address | Unknown | + + + | Phone | Unavailable | + + + Support + + +---------+ + | Name | Relationship | Address | Phone | + + +---------+ + | Amado Araiza | ECON | Unknown | | + + +---------+ + Care Team Providers + +------+ + | Care Pullman Car Clerk Name | Role | Phone | [...] Description | +--------+--------+ + + + | 06/02/ | Refill | [facility] | Toya Jeffries RN | Moderate persistent | | 2019 | | Pulmonology [address] | | asthma without | | | | [place] | | complication | | | | [place], [place] | | | | | | [address] | | | | | | [phone] | | | +--------+--------+ + + + [...] Dr | | | | | | [place] [address] | | | | | | [phone] | | | | | | | | +--------+---------+ + + + | 11/12/ | Office | Neurology | Elaine Andrews, | | | 2019 | Visit | | MD [address] | | | | | | [place] | | | | | | [address] | | | | | | | | +--------+---------+ + + + as of this encounter Visit Diagnoses + + | Diagnosis | + + | Moderate persistent asthma without complication | + + | Unspecified asthma | + +"
--- OUTSIDE RECORDS SUMMARY | ~2018-08-09 | XMS | Encounter Summary ---
Demographics + + + | Address | [address] | | | [place] [address] | + + + | Home Phone | | + + + | Preferred Language | Unknown | + + + | Marital Status | | + + + | Bahai Affiliation | Unknown | + + + | Race | Unknown | + + + | Ethnic Group | Unknown | + + + Author + + + | Author | [facility] | + + + | Organization | [facility] | + + + | Address | Unknown | + + + | Phone | Unavailable | + + + Support + + +---------+ + | Name | Relationship | Address | Phone | + + +---------+ + | Amado Araiza | ECON | Unknown | | + + +---------+ + Care Team Providers + +------+ + | Care Screen Print Operator Name | Role | Phone | + +------+ + | Mynor Kam MD | PCP | | + +------+ + Encounter Details +--------+---------+ + + + | Date | Type | Department | Care Team | Description | +--------+---------+ + + + | 06/08/ | Office | [facility] | Matt, | Uncontrolled | | 2019 | Visit | Pulmonology [address] | Esperanza Arora, | moderate persistent | | | | [address] | [address] | asthma (Primary Dx); | | | | [place], [place] | [place] [address] | Exposure to | | | | [address] | [phone] | influenza; ARDS | | | | [phone] | | survivor; | | | | | | Restrictive lung | | | | | | disease; Chronic | | | | | | respiratory failure | | | | | | with hypoxia (HCC); | | | | | | COOPER (obstructive | | | | | | sleep apnea) | +--------+---------+ + + + Social History [...] + + in this encounter Progress Notes Esperanza Gutierrez MD - 06/08/2018 8:00 AM PSTFormatting of this note may be dif ferent from the original. Subjective: Patient ID: Gilma Araiza is a 52 y.o. female with a history of acute respiratory failure secondary to ARDS from H1N1 influenza infection. She also has obesity, COOPER, DM, a h istory of DVT and PE (was on warfarin in he past) and asthma. He has a past seizure disorder . HPI Ms Araiza is a pleasant 47 yr old woman who has a past history of DM, asthma, frequent bro nchitis, suspected COOPER and obesity, who was admitted to [facility] from 05/05/13 to 05/14/13 for acut e respiratory failure from ARDS due to H1N1 infection. Her course was long and difficult -sh e eventually underwent a tracheostomy insertion by Dr Novoa (Lina), and then she was eventua lly moved to an acute Rehab facility close to [place] ([facility]). She reports abi t she had a horrible time here. After close to a week of staying in the facility, her trache ostomy tube managed to fall out and she suffered from hypoxemia with bilateral lung atelecta sis. She was brought to [facility] where they put her trach back. She also suffered from a P NA at that time, and she was placed on antibiotics. Interval History Comments: Has had an increase in dyspnea this winter -had to have a course of prednisone a nd abx. Reports influenza exposure recently via her grand daughter. Notes water retention es pecially when traveling. The patient reports the following: DYSPNEA: Has chronic dyspnea on minimal exertion. Notes increasing dyspnea when folding the laundry or showering. COUGH: Intermittent, productive of light yellow sputum normally. ACUTE EXACERBATION: Hospitalized in July 2017 for Influenza B, and was admitted for sepsis (had low BP) and possibly pneumonia. Outpatient txt with steroid and abx for EXPOSURES: Never smoker. EXERCISE: No regimented exercise. Has had trouble as well due to frequent falls and balanc e issues. ACTIVITIES OF DAILY LIVING: Able to still do some chores like cleaning the dishes and mopp ing, but lately has been having more difficulty with folding the laundry. CONSTITUTIONAL SYMPTOMS: Has had chronic fatigue and balance issues. Denies fevers but does have some night sweats. SINO-NASAL SYMPTOMS: None currently REFLUX or REGURGITATION: Has had dysphagia but no overt aspiration. Reflux comes and goes . SLEEP: Sleeps with a CPAP and oxygen but been awoken by pain of hand from trigger finger. CHEST PAINS: None ORTHOPNEA OR PND (Paroxysmal Nocturnal Dyspnea): Sleeps at a semi incline. Denies PNDs. PEDAL EDEMA: Has some pedal edema by the end of the afternoon and lately during travels. OTHER SYMPTOMS: Has had significant memory issue. Inhaler regimen includes: QVAR 80 mcg 2 puffs BID, prn albuterol neb and HFA, also has hy pertonic saline available. Oxygen Use: Only at night at 2LPM with CPAP. None during the day but occasionally uses oxy gen during the day when she gets short of breath. PAP therapy: CPAP nightly. Other relevant medications: Singulair nightly. Pls see rest of ROS below. The following portions of the patient's history were reviewed and updated as appropriate: a llergies, current medications, past family history, past medical history, past social histor y, past surgical history and problem list. Review of Systems Constitutional: Positive for fatigue (Energy is low once again). Negative for activity vang ge, appetite change, chills, diaphoresis, fever and unexpected weight change. HENT: Positive for trouble swallowing. Negative for congestion, nosebleeds, postnasal drip, rhinorrhea, sore throat and voice change. Eyes: Negative for visual disturbance. Respiratory: Positive for apnea (On CPAP therapy), cough (Occasionally dry) and shortness o f breath (on minimal exertion). Negative for choking, chest tightness, wheezing and stridor. Cardiovascular: Positive for leg swelling (trace). Negative for chest pain (muscular, whene caty she coughs hard) and palpitations. Gastrointestinal: Negative for constipation, diarrhea and nausea. Genitourinary: Negative for dysuria and frequency. Musculoskeletal: Positive for arthralgias, back pain and myalgias. Negative for joint swell ing and neck pain. Skin: Negative for rash. Neurological: Positive for tremors, seizures and headaches (mostly in the morning). Negativ e for dizziness, weakness and light-headedness. Hematological: Negative for adenopathy. Psychiatric/Behavioral: Positive for sleep disturbance (wakes up intermittently at night fo r no apparent reason, and also due to joint pains; has been using her CPAP only 4 hours ever y night). Active Ambulatory Problems Diagnosis Date Noted Poorly controlled diabetes mellitus ([facility]) Morbid obesity with BMI of 45.0-49.9, adult Influenza A 05/02/2013 Abnormal LFTs (liver function tests) 05/05/2013 Acute respiratory distress syndrome (ARDS) ([facility]) 05/06/2013 possible Secondary bacterial pneumonia 05/07/2013 Asthma 06/15/2013 COOPER (obstructive sleep apnea) 06/15/2013 ARDS survivor 06/15/2013 Chronic respiratory failure ([facility]) 10/07/2013 Restrictive lung disease 01/17/2014 Gastroesophageal reflux disease without esophagitis 11/01/2014 Status post tracheostomy ([facility]) 03/06/2015 Epilepsy ([facility]) 05/18/2015 Precordial pain 05/31/2015 Heart palpitations 05/31/2015 Moderate persistent asthma without complication 10/03/2015 Primary generalized epilepsy, major 11/24/2015 Resolved Ambulatory Problems Diagnosis Date Noted Acute respiratory failure with hypoxia 05/04/2013 Past Medical History: Diagnosis Date Acute respiratory failure with hypoxia 05/04/2013 Asthma Bronchitis DVT (deep venous thrombosis) ([facility]) Dvt femoral (deep venous thrombosis) ([facility]) Epilepsy ([facility]) Fibromyalgia Fibromyalgia Hypertension Influenza A (H1N1) 05/02/2013 Joint pain Morbid obesity with BMI of 45.0-49.9, adult ([facility]) Osteoarthritis Ovarian mass Poorly controlled diabetes mellitus ([facility]) Restrictive airway disease Shingles Sleep apnea Unspecified visual disturbance Past Surgical History Procedure Laterality Date APPENDECTOMY BREAST SURGERY CHOLECYSTECTOMY FINGER SURGERY FINGER SURGERY KNEE ARTHROSCOPY left knee TONSILLECTOMY AND ADENOIDECTOMY TOTAL ABDOMINAL HYSTERECTOMY TRACHEAL SURGERY N/A 05/11/2013 Procedure: TRACHEOSTOMY; Surgeon: Fabián Novoa MD; Location: [facility] MAIN OR; Service: ENT; Laterality: N/A; move to OR table, need harmonic scalpel with focus HP, patient 320 poun ds TRIGGER FINGER RELEASE Right trigger index finger Left May 2016 trigger thumb Left January 2015 trigger thumb release TUBAL LIGATION SOCIAL HISTORY She smoked for a month when she was in . She has never smoked continuously in the past. S he has lived in [place] most of her life. She now lives in [place]. She lived in [place] for two years when she was younger. She has no animals at home. She has no known exposures to c hemica/toxic fumes. No exposures to asbestos. She has no hot tubs and no swamp coolers. Objective: Physical Exam Vital signs reviewed. BP 121/68 (BP Location: Left forearm, Patient Position: Sitting) | P ulse 82 | Temp 97.2 F (36.2 C) (Oral) | Ht 1.676 m (5' 6") | Wt 142.2 kg (313 lb 6.4 oz) | SpO2 97% | BMI 50.58 kg/m Oxygen saturation noted at 97% on ambient air GENERAL: obese, pleasant, cooperative, oriented, not in distress HEENT: pink conjunctiva, anicteric sclerae, moist oral [...] no focal neurologic deficits LABORATORY AND IMAGING CXR reviewed done on 06/10/13 showed clearing [...] of ILD. T racheostomy is in place. Pulmonary Function Test: 07/29/13 04/25/14 10/28/16 FEV1 [...] ventricular hypertrophy. No signific ant valvular disease. Assessment and Plan: 1. Uncontrolled moderate persistent asthma Gilma has more uncontrolled disease this winter. I have suggested switching out her ICS to an ICS/LABA combination. I have prescribed Advair or its equivalent, 250-50 mcg BID. Continu e with albuterol HFA and neb. Suggested to use hypertonic saline with difficult to expectora te phlegm. - fluticasone-salmeterol (ADVAIR) 250-50 MCG/DOSE; Inhale 1 puff into the lungs 2 (two) ike es daily. Dispense: 60 each; Refill: 5 2. Exposure to influenza She has had an exposure to influenza -she tends to get severe disease with hospitalization and respiratory failure. I have suggested starting Tamiflu prophylaxis below. - oseltamivir (TAMIFLU) 75 MG capsule; Take 1 capsule by mouth daily for 7 days. Dispense: 7 capsule; Refill: 0 3. ARDS survivor Ms Araiza is a 52 yr old woman who ARDS survivor due to H1N1 influenza infection. She had been trached in the past, and got decannulated in 2013. ARDS is an intense inflammatory con dition in the lungs that have prolonged and chronic consequences including impaired V/Q matc melvin, pulmonary scarring, muscular degeneration and cognitive decline. She continues to have dyspnea on exertion, and has been fairly sedentary. She also complain s of myalgias and arthralgias. There has been no significant change in her PFT, and therefor e, is not reflective of her s/s, which are out of proportion to her PFT. She also has been c omplaining of cognitive decline, which has been found to occur in patients who had ARDS. She will be seeing Neurology for this. Continue efforts at increasing physical activity. 4. Restrictive lung disease She has mild restriction on PFT which I think is more from her weight issues rather than an ILD or ARDS. Last imaging done did not show evidence of pulmonary parenchymal disease. 5. Chronic respiratory failure with hypoxia (HCC) She has persistent hypoxemia at night, but has not had any hypoxemia on exertion. She has a n oximeter and I recommend that she continues to monitor this, especially on exertion. Reite rated that she does not have to use oxygen during the day if her sats do not fall below 89%. 6. COOPER (obstructive sleep apnea) Continue PAP therapy. Thank you for allowing us to participate [...] MD Pulmonary and Critical Care Medicine [facility] [address], [place] [address] in this encounter Plan of Treatment +--------+---------+ + + + | Date | Type | Specialty | Care Team | Description | +--------+---------+ + + + | 10/21/ | Office | Pulmonology | Matt, | | | 2018 | Visit | | Esperanza Arora, | | | | | | MD [address] | | | | | | [place] [address] | | | | | | [phone] | | | | | | | | +--------+---------+ + + + | 11/12/ | Office | Neurology | Elaine Andrews, | | | 2018 | Visit | | MD [address] | | | | | | [place] | | | | | | [address] | | | | | | | | +--------+---------+ + + + as of this encounter Visit Diagnoses + + | Diagnosis | + + | Uncontrolled moderate persistent asthma - Primary | + + | Exposure to influenza | + + | Contact with or exposure to other viral diseases | + + | ARDS survivor | + + | Personal history of other diseases of respiratory system | + + | Restrictive lung disease | + + | Other diseases of lung, not elsewhere classified | + + | Chronic respiratory failure with hypoxia (HCC) | + + | Chronic respiratory failure | + + | COOPER (obstructive sleep apnea) | + + | Obstructive sleep apnea (adult) (pediatric) | + +
--- OUTSIDE RECORDS SUMMARY | ~2018-08-09 | XMS | Encounter Summary ---
Demographics + + + | Address | [address] | | | [place] [address] | + + + | Home Phone | | + + + | Preferred Language | Unknown | + + + | Marital Status | | + + + | Protestant Affiliation | Unknown | + + + | Race | Unknown | + + + | Ethnic Group | Unknown | + + + Author + + + | Author | [facility] | + + + | Organization | [facility] [employer] [facility] | + + + | Address | Unknown | + + + | Phone | Unavailable | + + + Support + + +---------+ + | Name | Relationship | Address | Phone | + + +---------+ + | Amado Araiza | ECON | Unknown | | + + +---------+ + Care Team Providers + +------+ + | Care Elevator Technician Name | Role | Phone | + +------+ + | Mynor Kam MD | PCP | | + +------+ + Encounter Details +--------+---------+ + + + | Date | Type | Department | Care Team | Description | +--------+---------+ + + + | 06/08/ | Office | [facility] | Matt, | Uncontrolled | | 2019 | Visit | Pulmonology [address] | Esperanza Arora, | moderate persistent | | | | [address] | [address] | asthma (Primary Dx); | | | | [place], [place] | [place] [address] | Exposure to | | | | [address] | [phone] | influenza; ARDS | | | | [phone] | | survivor; | | | | [...] COOPER and obesity, who was admitted to [facility] from 05/05/13 to 05/14/13 for acut e respiratory failure from ARDS due to H1N1 infection. Her course was long and difficult -sh e eventually underwent a tracheostomy insertion by Dr Novoa (Lina), and then she was eventua lly moved to an acute Rehab facility close to [place] ([facility]). She reports abi t she had a horrible time here. After close to a week of staying in the facility, her trache ostomy tube managed to fall out and she suffered from hypoxemia with bilateral lung atelecta sis. She was brought to [facility] where they put her trach back. She [...] Diagnosis Date Noted Poorly controlled diabetes mellitus ([facility]) Morbid obesity with BMI of 45.0-49.9, adult Influenza A 05/02/2013 Abnormal LFTs (liver function tests) 05/05/2013 Acute respiratory distress syndrome (ARDS) ([facility]) 05/06/2013 possible Secondary bacterial pneumonia 05/07/2013 Asthma 06/15/2013 COOPER (obstructive sleep apnea) 06/15/2013 ARDS survivor 06/15/2013 Chronic respiratory failure ([facility]) 10/07/2013 Restrictive lung disease 01/17/2014 Gastroesophageal reflux disease without esophagitis 11/01/2014 Status post tracheostomy ([facility]) 03/06/2015 Epilepsy ([facility]) 05/18/2015 Precordial pain 05/31/2015 Heart palpitations 05/31/2015 Moderate persistent asthma without complication 10/03/2015 Primary generalized epilepsy, major 11/24/2015 Resolved Ambulatory Problems Diagnosis Date Noted Acute respiratory failure with hypoxia 05/04/2013 Past Medical History: Diagnosis Date Acute respiratory failure with hypoxia 05/04/2013 Asthma Bronchitis DVT (deep venous thrombosis) ([facility]) Dvt femoral (deep venous thrombosis) ([facility]) Epilepsy ([facility]) Fibromyalgia Fibromyalgia Hypertension Influenza A (H1N1) 05/02/2013 Joint pain Morbid obesity with BMI of 45.0-49.9, adult ([facility]) Osteoarthritis Ovarian mass Poorly controlled diabetes mellitus ([facility]) Restrictive airway disease Shingles Sleep apnea Unspecified visual disturbance Past Surgical History Procedure Laterality Date APPENDECTOMY BREAST SURGERY CHOLECYSTECTOMY FINGER SURGERY FINGER SURGERY KNEE ARTHROSCOPY left knee TONSILLECTOMY AND ADENOIDECTOMY TOTAL ABDOMINAL HYSTERECTOMY TRACHEAL SURGERY N/A 05/11/2013 Procedure: TRACHEOSTOMY; Surgeon: Fabián Novoa MD; Location: [facility] MAIN OR; Service: ENT; Laterality: N/A; [...] the past. S he has lived in [place] most of her life. She now lives in [place]. She lived in [place] for two years when she was younger. [...] Gutierrez MD Pulmonary and Critical Care Medicine [facility] [address], [place] [address] in this encounter Plan of Treatment +--------+---------+ + + + | Date | Type | Specialty | Care Team | Description | +--------+---------+ + + + | 10/21/ | Office | Pulmonology | Matt, | | | 2018 | Visit | | Esperanza Arora, | | | | | | MD [address] | | | | | | [place] [address] | | | | | | [phone] | | | | | | | | +--------+---------+ + + + | 11/12/ | Office | Neurology | Elaine Andrews, | | | 2018 | Visit | | MD [address] | | | | | | [place] | | | | | | [address] | | | | | | | [...]
--- OUTSIDE RECORDS SUMMARY | ~2018-08-09 | XMS | Encounter Summary ---
Demographics + + + | Address | [address] | | | [place] [address] | + + + | Home Phone | | + + + | Preferred Language | Unknown | + + + | Marital Status | | + + + | Rastafarian Affiliation | Unknown | + + + | Race | Unknown | + + + | Ethnic Group | Unknown | + + + Author + + + | Author | [facility] | + + + | Organization | [facility] [employer] | + + + | Address | Unknown | + + + | Phone | Unavailable | + + + Support + + +---------+ + | Name | Relationship | Address | Phone | + + +---------+ + | Amado Araiza | ECON | Unknown | | + + +---------+ + Care Team Providers + +------+ + | Care Ship Construction Teacher Name | Role | Phone | + +------+ + | Mynor Kam MD | PCP | | + +------+ + Encounter Details +--------+ + + + + | Date | Type | Department | Care Team | Description | +--------+ + + + + | 06/26/ | Telephone | [facility] | [place], | | | 2018 | | Pulmonology [address] | [address] | | | | | [address] | | | | | | [place] | | | | | | [address] | | | | | | [phone] | | | +--------+ + + + [...] | 10/21/ | Office | Pulmonology | [facility], | | | 2018 | Visit | | Esperanza Arora, | | | | | | MD [address] | | | | | | [place] [address] | | | | | | [phone] | | | | | | | | +--------+---------+ + + + | 11/12/ | Office | Neurology | Elaine Andrews, | | | 2018 | Visit | | MD [address] | | | | | | [place] | | | | | | [phone] | | | | | | | | +--------+---------+ + + + as of this encounter Visit Diagnoses Not on filein this encounter"
--- OUTSIDE RECORDS SUMMARY | ~2018-08-09 | XMS | Encounter Summary ---
Demographics + + + | Address | [address] | | | [place] [address] | + + + | Home Phone | | + + + | Preferred Language | Unknown | + + + | Marital Status | | + + + | Christianity Affiliation | Unknown | + + + | Race | Unknown | + + + | Ethnic Group | Unknown | + + + Author + + + | Author | [facility] | + + + | Organization | [facility] [employer] [facility] | + + + | Address | Unknown | + + + | Phone | Unavailable | + + + Support + + +---------+ + | Name | Relationship | Address | Phone | + + +---------+ + | Amado Araiza | ECON | Unknown | | + + +---------+ + Care Team Providers + +------+ + | Care Otr Driver Name | Role | Phone | [...] Authorized | | Neurology | Diagnoses | aDrryl, | Darryl, | | | | | Chronic | MD Elaine | MD Elaine | | | | | migraine | [address] | | | | | without | [address] | | | | | | aura, not | [place], | [place], [place] | | | | | intractable, | [place] [address] | [address] Phone: | | | | | without | Phone: | [phone] | | | | | status | [phone] | Fax: | | | | | migrainosus | Fax: | [phone] | | | | | botox 200 | [phone] | | | | | | units for | | | | | | | migraine | | | | | | | Procedures | | | | | | | [place] | | | | | | | INJECTION,ON | | | | | | | ABOTULINUMTO | | | | | | | [place] | | | | | | | [...] | visit | [facility] | [address] | without aura and | | | | [address] | [address] [place] | without status | | | | [place], [place] | [address] | migrainosus (Primary | | | | [address] | | Dx) | | | | [phone] | | | +--------+ + + + [...] each site 20 u Procerus 5 u Rn Transitional 2 sites, 5 units each site 10u [...] | | | | | [place] [address] | | | | | | [phone] | | | | | | | | +--------+---------+ + + + | 11/12/ | Office | Neurology | Elaine Andrews, | | | 2018 | Visit | | MD [address] | | | | | | [place] | | | | | | [phone] | | | | | | | [...]
--- OUTSIDE RECORDS SUMMARY | ~2018-08-09 | XMS | Clinical Summary ---
Demographics + + + | Address | [address] | | | [place] [address] | + + + | Home Phone | | + + + | Preferred Language | Unknown | + + + | Marital Status | Unknown | + + + | Rastafari Affiliation | Unknown | + + + [...] Team Providers + +------+ + | Care Auditing Manager Name | Role | Phone | + +------+ + PP | Unavailable | + +------+ + Allergies Not on File Medications Not on [...] recent travel history available. | + + Plan of Treatment + + [...]
--- OUTSIDE RECORDS SUMMARY | ~2018-08-09 | XMS | Encounter Summary ---
Demographics + + + | Address | [address] | | | [place] [address] | + + + | Home Phone | | + + + | Preferred Language | Unknown | + + + | Marital Status | | + + + | Hinduism Affiliation | Unknown | + + + | Race | Unknown | + + + | Ethnic Group | Unknown | + + + Author + + + | Author | [facility] [employer] | + + + | Organization | [facility] [employer] [facility] | + + + | Address | Unknown | + + + | Phone | Unavailable | + + + Support + + +---------+ + | Name | Relationship | Address | Phone | + + +---------+ + | Amado Araiza | ECON | Unknown | | + + +---------+ + Care Team Providers + +------+ + | Care Plastic Technician Name | Role | Phone | [...] + + | 06/02/ | Refill | [facility] | Toya Jeffries RN | Moderate persistent | | 2019 | | Pulmonology [address] | | asthma without | | | | [place] | | complication | | | | [place], [place] | | | | | | [address] | | | | | | [phone] | | | +--------+--------+ + + + [...] Dr | | | | | | [place] [address] | | | | | | [phone] | | | | | | | | +--------+---------+ + + + | 11/12/ | Office | Neurology | Elaine Andrews, | | | 2019 | Visit | | MD [address] | | | | | | [place] | | | | | | [address] | | | | | | | | +--------+---------+ + + + as of this encounter Visit Diagnoses + + | Diagnosis | + + | Moderate persistent asthma without complication | + + | Unspecified asthma | + +"
--- OUTSIDE RECORDS SUMMARY | ~2018-08-09 | XMS | Encounter Summary ---
Demographics + + + | Address | [address] | | | [place] [address] | + + + | Home Phone | | + + + | Preferred Language | Unknown | + + + | Marital Status | | + + + | Mandaeism Affiliation | Unknown | + + + | Race | Unknown | + + + | Ethnic Group | Unknown | + + + Author + + + | Author | [facility] [employer] | + + + | Organization | [facility] [employer] [facility] | + + + | Address | Unknown | + + + | Phone | Unavailable | + + + Support + + +---------+ + | Name | Relationship | Address | Phone | + + +---------+ + | Amado Araiza | ECON | Unknown | | + + +---------+ + Care Team Providers + +------+ + | Care Occupational Nurse Name | Role | Phone | [...] | | [address] | [address] [place] | injection) | | | | [place] | [address] | | | | | [address] | | | | | | [phone] | | | +--------+ + + + [...] | | | | | [place] [address] | | | | | | [phone] | | | | | | | | +--------+---------+ + + + | 11/12/ | Office | Neurology | Elaine Andrews, | | | 2019 | Visit | | MD Kim Patterson | | | | | | [place] | | | | | | [phone] | | | | | | | | +--------+---------+ + + + as of this encounter Visit Diagnoses Not on filein this encounter"
--- OUTSIDE RECORDS SUMMARY | ~2018-08-09 | XMS | Clinical Summary ---
Demographics + + + | Address | [address] | | | [place] [address] | + + + | Home Phone | | + + + | Preferred Language | Unknown | + + + | Marital Status | Unknown | + + + | Jew Affiliation | Unknown | + + + | Race | Unknown | + + + | Ethnic Group | Unknown | + + + Author + + + | Author | [facility] | + + + | Organization | [facility] | + + + | Address | Unknown | + + + | Phone | Unavailable | + + + Care Team Providers + +------+ + | Care Narrative Writer Name | Role | Phone | + +------+ + PP | Unavailable | + +------+ + Source Comments FAB is fully live on both [facility] and [facility] Allergies Not on File Current [...]
--- OUTSIDE RECORDS SUMMARY | ~2018-08-09 | XMS | Encounter Summary ---
Demographics + + + | Address | [address] | | | [place] [address] | + + + | Home Phone | | + + + | Preferred Language | Unknown | + + + | Marital Status | | + + + | Mormonism Affiliation | Unknown | + + + | Race | Unknown | + + + | Ethnic Group | Unknown | + + + Author + + + | Author | [facility] [employer] | + + + | Organization | [facility] [employer] [facility] | + + + | Address | Unknown | + + + | Phone | Unavailable | + + + Support + + +---------+ + | Name | Relationship | Address | Phone | + + +---------+ + | Amado Araiza | ECON | Unknown | | + + +---------+ + Care Team Providers + +------+ + | Care Necktie Stitcher Name | Role | Phone | + +------+ + | Mynor Kam MD | PCP | | + +------+ + Encounter Details +--------+ + + + + | Date | Type | Department | Care Team | Description | +--------+ + + + + | 06/26/ | Telephone | [facility] | Peter Palm, | | | 2018 | | Pulmonology [address] | | | | | [place] | | | | | | [place] | | | | | | [address] | | | | | | [phone] | | | +--------+ + + + [...] | 10/21/ | Office | Pulmonology | [facility], | | | 2018 | Visit | | Esperanza Arora, | | | | | | MD [address] | | | | | | [place] [address] | | | | | | [phone] | | | | | | | | +--------+---------+ + + + | 11/12/ | Office | Neurology | Elaine Andrews, | | | 2018 | Visit | | MD Kim Patterson | | | | | | [place] | | | | | | [phone] | | | | | | | | +--------+---------+ + + + as of this encounter Visit Diagnoses + + | Diagnosis | + + | Moderate persistent asthma without complication - Primary | + + | Unspecified asthma | + +"
--- OUTSIDE RECORDS SUMMARY | ~2018-08-09 | XMS | Encounter Summary ---
Demographics + + + | Address | [address] | | | [place] [address] | + + + | Home Phone | | + + + | Preferred Language | Unknown | + + + | Marital Status | | + + + | Bahai Affiliation | Unknown | + + + | Race | Unknown | + + + | Ethnic Group | Unknown | + + + Author + + + | Author | [facility] [employer] | + + + | Organization | [facility] | + + + | Address | Unknown | + + + | Phone | Unavailable | + + + Support + + +---------+ + | Name | Relationship | Address | Phone | + + +---------+ + | Amado Araiza | ECON | Unknown | | + + +---------+ + Care Team Providers + +------+ + | Care Operations Supervisor Chemical Cleaning Name | Role | Phone | + +------+ + | Mynor Kam MD | PCP | | + +------+ + Encounter Details +--------+ + + + + | Date | Type | Department | Care Team | Description | +--------+ + + + + | 06/26/ | Telephone | [facility] | Peter Palm, | | | 2018 | | Pulmonology [address] | [address] | | | | | [place] | | | | | | [place] | | | | | | [address] | | | | | | [phone] | | | +--------+ + + + [...] | 10/21/ | Office | Pulmonology | [facility], | | | 2018 | Visit | | Esperanza Arora, | | | | | | MD [address] | | | | | | [place] [address] | | | | | | [phone] | | | | | | | | +--------+---------+ + + + | 11/12/ | Office | Neurology | Elaine Andrews, | | | 2018 | Visit | | MD Kim Patterson | | | | | | [place] | | | | | | [phone] | | | | | | | | +--------+---------+ + + + as of this encounter Visit Diagnoses + + | Diagnosis | + + | Moderate persistent asthma without complication - Primary | + + | Unspecified asthma | + +"
--- OUTSIDE RECORDS SUMMARY | ~2018-08-09 | XMS | Encounter Summary ---
Demographics + + + | Address | [address] | | | [place] [address] | + + + | Home Phone | | + + + | Preferred Language | Unknown | + + + | Marital Status | | + + + | Samaritan Affiliation | Unknown | + + + | Race | Unknown | + + + | Ethnic Group | Unknown | + + + Author + + + | Author | [facility] [employer] | + + + | Organization | [facility] [employer] [facility] | + + + | Address | Unknown | + + + | Phone | Unavailable | + + + Support + + +---------+ + | Name | Relationship | Address | Phone | + + +---------+ + | Amado Araiza | ECON | Unknown | | + + +---------+ + Care Team Providers + +------+ + | Care Family Consumer Science Teacher Name | Role | Phone [...] | | | elsewhere | Ave | [address] Phone: | | | | | classified | [place], | [phone] | | | | | Memory loss | [place] | Fax: | | | | | | [address] | [phone] | | | | | | Phone: | | | | | | | [phone] | | | | | | | Fax: | | | | | | | [phone] | | + +--------+ + + + + Encounter Details +--------+---------+ + + + | Date | Type | Department | Care Team | Description | +--------+---------+ + + + | 07/15/ | Office | [facility] | Elaine Andrews, | Chronic migraine | | 2019 | Visit | [facility] | [address] | (Primary Dx); | | | | [address] | [place] | Seizure disorder | | | | [place] | [phone] | ([facility]); Driving | | | | [address] | | safety issue; | | | | [phone] | | Breakthrough seizure | | | | | | ([facility]); Non | | | | | [...] information carefully each time. Talk to your benefits representative regarding the use of this medicine in children. While this drug m ay be prescribed for children as young as 16 years of age for selected conditions, precautio ns do apply. What side effects may I notice from receiving this medicine? Side effects that you should report to your doctor or health career representative as soon as p ossible: allergic reactions [...] attention (report to your doctor or health career representative if they continue or are bothersome): headache [...] this medicine? Visit your doctor or health career representative for regular checks on your progress. Wear [...] You should contact your doctor or health career representative if your seizures get worse or if [...] dying should be reported to your health career representative right away. Women who become while using this medicine may enroll in the [place] Antiep ileptic Drug Registry by calling . This registry collects informatio n about the safety of antiepileptic drug use during . NOTE:This sheet is a summary. It may not cover all possible information. If you have questi ons about this medicine, talk to your doctor, pharmacist, or health care provider. Copyright 2019 [employer] Safety and legal instructions I explained to the patient that per [place] State law she should not to drive [...] H1N1 pneumonia 2013, A RDS, seen at [facility] following complications and being comatose. She reports h/o seizures as a child - age 9 - grandmal seizures - seen at [facility] - on phenobarbital for [address] years[address] by Dr De Jesus at [facility] at age 15. Did not dejuan nue medications. She had one grandmal after of her first daughter - 31 years ago. Was tired after a [employer] bus drive from [place] to [place]. She has another perioperative seizure a few years ago (after cholecystectomy). She reports 2 grandmal unwitnessed seizures 2015 - at home - fell and loss consciousness - cracked a glass door. Then went to bed and lost consciousness. Not sure how long she was out . No urinary incontinence. Had a sleep deprived EEG- 11/11/14 - done at [facility] and read by Kat Fernandez ([facility]). "Abnormal awake and drowsy EEG - frequent spike and wave discharges with a generalized fiel d though consistently with a left qptthe-ublazv-aaqpmzyg lead-in, with activation during hyp erventilation and [...] poor" Has had MRI brain done at [facility] in June 2015 - uploaded in [facility] including report. Normal structure. She complains of short-term memory loss since she was hospitalized at [facility] in 2013. F eels it has [...] about 3 grandmal events witnessed by . [place] lightheaded and then twitched. Lost consciousness. However [...] Disp: , Rfl: 2 vitamin D2, ergocalciferol, 80890 units capsule, TK 1 C PO ONCE [...] I explained to the patient that per [place] State law she should not to drive [...] [place] | | | | | | [place] [address] | | | | | | [phone] | | | | | | | | +--------+---------+ + + + | 11/12/ | Office | Neurology | [facility] Elaine, | | | 2019 | Visit | | [address] | | | | | | [place] | | | | | | [address] | | | | | | | [...]
--- OUTSIDE RECORDS SUMMARY | ~2018-08-09 | XMS | Encounter Summary ---
Demographics + + + | Address | [address] | | | [place] [address] | + + + | Home Phone | | + + + | Preferred Language | Unknown | + + + | Marital Status | | + + + | Latter-Day Affiliation | Unknown | + + + | Race | Unknown | + + + | Ethnic Group | Unknown | + + + Author + + + | Author | [facility] [employer] | + + + | Organization | [facility] [employer] [facility] | + + + | Address | Unknown | + + + | Phone | Unavailable | + + + Support + + +---------+ + | Name | Relationship | Address | Phone | + + +---------+ + | Amado Araiza | ECON | Unknown | | + + +---------+ + Care Team Providers + +------+ + | Care De Icer Installer Name | Role | Phone | + +------+ + | Mynor Kam MD | PCP | | + +------+ + Encounter Details +--------+ + + + + | Date | Type | Department | Care Team | Description | +--------+ + + + + | 05/28/ | Documentati | [facility] | Elaine Andrews, | | | 2019 | on Only | Neuroscience Center | [address] | | | | | [address] | [place] | | | | | [place] | [address] | | | | | [address] | | | | | | [phone] | | | +--------+ + + + [...] | | | | | [place] [address] | | | | | | [phone] | | | | | | | | +--------+---------+ + + + | 11/12/ | Office | Neurology | Elaine Andrews, | | | 2018 | Visit | | MD Kim Patterson | | | | | | [place] | | | | | | [address] | | | | | | | | +--------+---------+ + + + as of this encounter Visit Diagnoses Not on filein this encounter"
--- OUTSIDE RECORDS SUMMARY | ~2018-08-09 | XMS | Encounter Summary ---
Demographics + + + | Address | [address] | | | [place] [address] | + + + | Home Phone | | + + + | Preferred Language | Unknown | + + + | Marital Status | | + + + | Judaism Affiliation | Unknown | + + + | Race | Unknown | + + + | Ethnic Group | Unknown | + + + Author + + + | Author | [facility] | + + + | Organization | [facility] [employer] [facility] | + + + | Address | Unknown | + + + | Phone | Unavailable | + + + Support + + +---------+ + | Name | Relationship | Address | Phone | + + +---------+ + | Amado Araiza | ECON | Unknown | | + + +---------+ + Care Team Providers + +------+ + | Care Nipple Machine Operator Name | Role | Phone | + +------+ + | Mynor Kam MD | PCP | | + +------+ + Encounter Details +--------+ + + + + | Date | Type | Department | Care Team | Description | +--------+ + + + + | 05/28/ | Documentati | [facility] | Elaine Andrews, | | | 2019 | on Only | Neuroscience Center | [address] | | | | | [address] | [place] | | | | | [place] | [address] | | | | | [address] | | | | | | [phone] | | | +--------+ + + + [...] | | | | | [place] [address] | | | | | | [phone] | | | | | | | | +--------+---------+ + + + | 11/12/ | Office | Neurology | Elaine Andrews, | | | 2018 | Visit | | MD Kim Patterson | | | | | | [place] | | | | | | [address] | | | | | | | | +--------+---------+ + + + as of this encounter Visit Diagnoses Not on filein this encounter"
--- OUTSIDE RECORDS SUMMARY | ~2018-08-09 | XMS | Clinical Summary ---
Demographics + + + | Address | [address] | | | [place] [address] | + + + | Home Phone | | + + + | Preferred Language | Unknown | + + + | Marital Status | Unknown | + + + | Pentecostalism Affiliation [...] Team Providers + +------+ + | Care Color Matcher Name | Role | Phone | + [...]
--- OUTSIDE RECORDS SUMMARY | ~2018-08-09 | XMS | Clinical Summary ---
Demographics + + + | Address | [address] | | | [place] [address] | + + + | Home Phone | | + + + | Preferred Language | Unknown | + + + | Marital Status | | + + + | Spiritism Affiliation | Unknown | + + + | Race | Unknown | + + + | Ethnic Group | Unknown | + + + Author + + + | Author | [facility] [employer] | + + + | Organization | [facility] [employer] [facility] | + + + | Address | Unknown | + + + | Phone | Unavailable | + + + Support + + +---------+ + | Name | Relationship | Address | Phone | + + +---------+ + | Amado Salmon | ECON | Unknown | | + + +---------+ + Care Team Providers + +------+ + | Care Ethnographic Materials Conservator Name | Role | Phone | + [...] | 0/20 | | e | | 58460 units capsule | | | | 19 [...] restrictive lung disease, | | followed by kitchen assistant. She is quite sedentary because of | [...] returns to | | her PCP and Liquid Yeast Supervisor, she'll be seen again if clinically | [...] & Plan: Palpitations. Clinically | | benign.&-day Revenue Field Agent, 06/01/2015: sinus rhythm, 64-168, | | averaging 91bpm, rare isolated PAC's, PVC's, no sustained ectopic | | tachycardia events, no AV block detected. | + + + + + | Epilepsy (HCC) | 05/18/2015 | + + + | Status post tracheostomy ([facility]) | 03/06/2015 | + + + | Gastroesophageal reflux disease without esophagitis | 11/01/2014 | + + + | Restrictive lung disease | 01/17/2014 | + + + | Chronic respiratory failure ([facility]) | 10/07/2013 | + + + | [...] | Acute respiratory distress syndrome (ARDS) ([facility]) | 05/06/2013 | + + + | [...] disorder | | | | | | ([facility]); Driving | | | | | | safety issue; | | | | | | Breakthrough seizure | | | | | | ([facility]); Non | | | | | | compliance w | | | | | | medication regimen | +--------+ + + + + | 06/26/ | Telephone | | Peter Palm, | | | 2018 | | | FACULTY CRIMINAL JUSTICE | | +--------+ + + + + | 06/26/ | Telephone | | Peter Palm, | | | 2018 | | | FACULTY CRIMINAL JUSTICE | | +--------+ + + + + | 06/18/ | Telephone | | Elaine Andrews, | Other (Needs to | | 2018 | | | MD | speak w/ Medical | | | | | | Emergency Man ) | +--------+ + + + + [...] | 05/28/ | Documentati | | Elaine Anderws, | | | 2019 | on Only [...] | | | | | [place] [address] | | | | | | [phone] | | | | | | | | +--------+---------+ + + + | 11/12/ | Office | | Elaine Andrews, | | | 2018 | Visit | | MD Kim Patterson | | | | | | [place] | | | | | | [address] | | | | | | | [...] +------+-------+ + | MEDICARE | MEDICA | [id number] | | | [address] | | | RE | | | | [place] [address] | | | IP-OP | | | | | + +--------+ +------+-------+ + | MEDICAID | [place] | [id number] | | | [address] | | | N | | | | [place] | | | [place] | | | | [address] | | | MULTI TOWNSHIP ASSESSOR | | | | | + +--------+ [...] | [place] | | | [address] | [address] | + +--------+ +--------+ + +
[~2018-08-09 20:38] MED LIST changes: +VERAPAMIL HCL40 MG PO; +WIXELA 250-501 EACH INH
--- OUTSIDE RECORDS SUMMARY | 2018-08-09 20:40 | XMS ---
PreManage Notification: FEDERICO SALMON Security Commodity Buyer Events No recent Security Events currently on file CRITERIA MET - [facility] Guidelines - [facility] EMERSON RICHARD Physician Web Services Manager 12/03/2017-Current PHONE: Unknown Kirk Ambrocio Attending Urologist/Slope Tender 12/31/2017-Current PHONE: [phone] Kirk Ambrocio Attending Urologist/Slope Tender 12/31/2017-Current PHONE: [phone] Kirk Ambrocio Primary Care 12/31/2017-Current PHONE: [phone] FRANCIS RICHARD Primary Care Current PHONE: [phone] Cheko Echavarria Current [place] PHONE: Unknown [facility] Current Orthopedic Surgery \T\ Fracture Clinic PHONE: Unknown Earl has no Care Guidelines for this patient. Care History Medical/Surgical 07/28/2017 [facility] - PCP office has been notified [...] ED please contact Community Health WorkerStacy at [phone]. These are guidelines and the provider should exercise clinical judgment when providing care. E.D. VISIT COUNT (12 MO.) 3 RASHAD Tariq TOTAL 3 NOTE: Visits indicate total known visits. ED/UCC VISIT TRACKING (12 MO.) 08/09/2018 20:38 RASHAD Carcamo [place] TYPE: Emergency COMPLAINT: - R KNEE/HIP PAIN 07/09/2018 03:17 RASHAD [facility] [place] TYPE: Emergency COMPLAINT: - BODY ACHES DIAGNOSES: - Personal history of pneumonia (recurrent) - Type 2 diabetes mellitus without complications - Other senior living (current) drug therapy - Fibromyalgia - Acquired absence of other specified parts of digestive tract - Unspecified asthma, uncomplicated - half-way (current) use of insulin - Chronic pain syndrome 08/17/2017 00:02 RASHAD Carcamo [place] TYPE: Emergency COMPLAINT: - VOMITTING DIAGNOSES: - termite control servicer (current) use of insulin - Type 2 diabetes mellitus without complications - Acute gastritis without bleeding - Nausea with vomiting, unspecified - Personal history of pneumonia (recurrent) - Other long term care social worker (current) drug therapy - Dehydration INPATIENT VISIT TRACKING (12 MO.) No inpatient visits to display in this time frame [email or web address]
[2018-08-09] MEDS ORDERED: PROMETHAZINE12.5 M1 PO (20:55)
[2018-08-09] MEDS ORDERED: DULOXETINE HCL30 MG PO (20:55)
== END 2018-08-09 22:04 | disposition home or self-care (01) ==
LOC: ED 20:38
DX: S70.01XA Contusion of right hip, initial encounter (principal); S80.01XA Contusion of right knee, initial encounter; E11.9 Type 2 diabetes mellitus without complications; J45.909 Unspecified asthma, uncomplicated; Z87.01 Personal history of pneumonia (recurrent); Z90.710 Acquired absence of both cervix and uterus; Z79.4 Long term (current) use of insulin; W19.XXXA Unspecified fall, initial encounter
CPT/HCPCS: 73502; 73560; 99283

== ENCOUNTER 2018-12-18 17:04 | Emergency (ER) | payer MEDICARE, OTHER ==
[~2018-12-18] VITALS: Ht 167.6 cm; Wt 121.6 kg
[~2018-12-18 17:04] MED LIST changes: +DULOXETINE HCL30 MG PO; +PROMETHAZINE12.5 M1 PO
--- OUTSIDE RECORDS SUMMARY | 2018-12-18 17:06 | XMS ---
PreManage Notification: FEDERICO SALMON Security Steam Blocker Events No recent Security Events currently on file CRITERIA MET - [facility] CARE PROVIDERS EMERSON RICHARD Physician Pewter Caster 12/03/2017-Current PHONE: Unknown [facility] [place] Cashier/Aircraft Mechanic Structures 12/31/2017-Current PHONE: [phone] [facility] 12/31/2017-Current PHONE: [phone] FRANCIS R[facility] Current PHONE: [phone] Cheko Echavarria [facility] Current [place] PHONE: Unknown [facility] Current Orthopedic Surgery \T\ Fracture Clinic PHONE: Unknown Earl has no Care Guidelines for this patient. Care History Medical/Surgical 07/28/2017 [facility] - PCP office has been notified [...] ED please contact Community Health WorkerStacy at [phone]. These are guidelines and the provider should exercise clinical judgment when providing care. E.D. VISIT COUNT (12 MO.) [address] [place] [address] TOTAL 3 NOTE: Visits indicate total known visits. ED/UCC VISIT TRACKING (12 MO.) 12/18/2018 17:04 [facility] [place] TYPE: Emergency COMPLAINT: - LT ARM PAIN 08/09/2018 20:38 [facility] [place] TYPE: Emergency COMPLAINT: - R KNEE/HIP PAIN DIAGNOSES: - Type 2 diabetes mellitus without complications - Acquired absence of both cervix and uterus - Unspecified fall, initial encounter - Contusion of right knee, initial encounter - Unspecified asthma, uncomplicated - Pain in right hip - snf (current) use of insulin - Personal history of pneumonia (recurrent) - Contusion of right hip, initial encounter 07/09/2018 03:17 [facility] [place] TYPE: Emergency COMPLAINT: - BODY ACHES DIAGNOSES: - Personal history of pneumonia (recurrent) - Type 2 diabetes mellitus without complications - Other termite control representative (current) drug therapy - Fibromyalgia - Acquired absence of other specified parts of digestive tract - Unspecified asthma, uncomplicated - termite control representative (current) use of insulin - Chronic pain syndrome INPATIENT VISIT TRACKING (12 MO.) No inpatient visits to display in this time frame [email or web address]
[2018-12-18] MEDS ORDERED: AMITRIPTYLINE H25 MG PO (18:20)
== END 2018-12-18 18:36 | disposition home or self-care (01) ==
LOC: ED 17:04
DX: G56.22 Lesion of ulnar nerve, left upper limb (principal); E11.9 Type 2 diabetes mellitus without complications; I10 Essential (primary) hypertension; J45.909 Unspecified asthma, uncomplicated; Z87.01 Personal history of pneumonia (recurrent); Z79.4 Long term (current) use of insulin; Z79.899 Other long term (current) drug therapy
CPT/HCPCS: 99283

== ENCOUNTER 2019-03-02 22:08 | Emergency (ER) | payer MEDICARE, OTHER ==
[~2019-03-02] VITALS: Ht 167.6 cm; Wt 121.6 kg
--- OUTSIDE RECORDS SUMMARY | ~2019-03-02 | XMS | Encounter Summary ---
Demographics + + + | Address | [address] | | | [place] [address] | + + + | Home Phone | | + + + | Preferred Language | Unknown | + + + | Marital Status | | + + + | Worship Affiliation | Unknown | + + + | Race | Unknown | + + + | Ethnic Group | Unknown | + + + Author + + + | Author | [facility] | | | and [place] | + + + | Organization | [facility] | | | [...] Team Providers + +------+ + | Care Special Service Officer Name | Role | Phone | + +------+ + PCP | Unavailable | + +------+ + Encounter Details +--------+ + + + + | Date | Type | Department | Care Team | Description | +--------+ + + + + | 07/19/ | Hospital | [facility] | Conversion | Pain | | 2014 | Encounter | CONVERSION [address] | Transaction, | | | | | [address] | Provider Unknown | | | | | [place] | | | | | | [address] | (Fax) | | | | | [phone] | | | +--------+ + + + + Social [...] on file | | + + + + + + + | Job Start Date | Occupation | Industry | + + + + | Not on file | Not on file | Not on file | + + + + + + + + | Travel History | Travel Start | Travel End | + + + + + + | No recent travel history available. | + + documented as of this encounter Medications at Time of Discharge + + + +---------+ + + | Medication | Sig | Dispensed | Refills | Start | End Date | | | | | | Date | | + + + +---------+ + + | DULoxetine | Take 90 mg by mouth | | 0 | 10/08/19 | | | (CYMBALTA) [address] | daily. | | | 14 | | | capsule | | | | | | + + + +---------+ + + | insulin lispro | Inject 35 Units into | | 0 | 11/09/19 | | | (HUMALOG) 100 | the skin 2 (two) | | | 14 | | | units/mL injection | times daily as | | | | | | (vial) | needed. Sliding | | | | | | | scale | | | | | + + + +---------+ + + documented as of this encounter Plan of Treatment +--------+---------+ + + + | Date | Type | Specialty | Care Team | Description | +--------+---------+ + + + | 06/01/ | Office | Pulmonology | Matt, | | | 2019 | Visit | | Esperanza Arora, | | | | | | [address] | | | | | | [place], | | | | | | [place] [address] | | | | | | [phone] | | | | | | | | +--------+---------+ + + + | 06/01/ | Office | Neurology | Elaine Andrews, | | | 2019 | Visit | | MD Kim STOUT | | | | | | [address] | | | | | | [place] [address] | | | | | | [phone] | | | | | | | | +--------+---------+ + + + documented as of this encounter Procedures + +--------+ + + + | Procedure Name | Priori | Date/Time | Associated Diagnosis | Comments | | | ty | | | | + +--------+ + + + | CT HEAD WO CONTRAST | Routin | 10/15/2012 | | Results for this | | | e | 5:11 AM | | procedure are in the | | | | PDT | | results section. | + +--------+ + + + documented in this encounter Results CT Head wo Contrast (10/15/2012 5:11 AM PDT) + + | Specimen | + + | | + + + + + | Narrative | Performed At | + + + | This is a non-reportable procedure without a radiologist report and | | | is used for image storage only | | + + + + + | Procedure Note | + + | Ermias Braxton Juan Ramon - 11/20/2018 4:49 AM PDT This is a non-reportable procedure | | without a radiologist report and isused for image storage only | + + documented in this encounter Visit Diagnoses + + | Diagnosis | + + | Pain Generalized pain | + + documented in this encounter"
--- OUTSIDE RECORDS SUMMARY | ~2019-03-02 | XMS | Encounter Summary ---
Demographics + + + | Address | [address] | | | [place] [address] | + + + | Home Phone | | + + + | Preferred Language | Unknown | + + + | Marital Status | | + + + | Roman Catholic Affiliation | Unknown | + + + | Race | Unknown | + + + | Ethnic Group | Unknown | + + + Author + + + | Author | [facility] | | | and [place] | + + + | Organization | [facility] | | | and [...] Providers + +------+ + | Care Machine Farmworker Name | Role | Phone | + +------+ + | Mynor Kam MD | PCP | | + +------+ + Encounter Details +--------+ + + + + | Date | Type | Department | Care Team | Description | +--------+ + + + + | 11/07/ | Orders Only | [facility] | Conversion | | | 2017 | | CONVERSION DEP [address] | Transaction, | | | | | [address] | Provider Unknown | | | | | [place] | [phone] | | | | | [address] | | | | | | [phone] | | | +--------+ + + + [...] | | | | | MD [address] | | | | | | [place], | | | | | | [place] [address] | | | | | | [phone] | | | | | | | | +--------+---------+ + + + | 06/01/ | Office | Neurology | Elaine Andrews, | | | 2019 | Visit | | MD [address] | | | | | | [place] | | | | | | [place] [address] | | | | | | [phone] | | | | | | | | +--------+---------+ + + + documented as of this encounter Visit Diagnoses Not on filedocumented in this encounter"
--- OUTSIDE RECORDS SUMMARY | ~2019-03-02 | XMS | Encounter Summary ---
Demographics + + + | Address | [address] | | | [place] [address] | + + + | Home Phone | | + + + | Preferred Language | Unknown | + + + | Marital Status | | + + + | Sabianism Affiliation | Unknown | + + + | Race | Unknown | + + + | Ethnic Group | Unknown | + + + Author + + + | Author | [facility] | | | and [place] | + + + | Organization | [facility] | | [...] Team Providers + +------+ + | Care Helicopter Repairer Name | Role | Phone | + +------+ + | Mynor Kam MD | PCP | | + +------+ + Encounter Details +--------+ + + + + | Date | Type | Department | Care Team | Description | +--------+ + + + + | 06/26/ | Orders Only | [facility] | [facility], | | | 2019 | | PULMONOLOGY [address] | [address], | | | | | [address] | [address] | | | | | [place], [place] | [place], | | | | | [address] | [place] [address] | | | | | [phone] | [phone] | | | | | | | [...] | | | | | | [address] | | | | | | [place], | | | | | | [place] [address] | | | | | | [phone] | | | | | | | | +--------+---------+ + + + | 06/01/ | Office | Neurology | Elaine Andrews, | | | 2019 | Visit | | [address] | | | | | | [place] | | | | | | [place] [address] | | | | | | [phone] | | | | | | | | +--------+---------+ + + + documented as of this encounter Visit Diagnoses Not on filedocumented in this encounter"
--- OUTSIDE RECORDS SUMMARY | ~2019-03-02 | XMS | Encounter Summary ---
Demographics + + + | Address | [address] | | | [place] [address] | + + + | Home Phone [...] Team Providers + +------+ + | Care Vp Research Name | Role | Phone | + +------+ + | Mynor Kam MD | PCP | | + +------+ + Encounter Details +--------+ + + + + | Date | Type | Department | Care Team | Description | +--------+ + + + + | 06/15/ | Orders Only | [facility] | Matt, | | | 2013 | | PULMONOLOGY [address] | [address], | | | | | [address] | [address] | | | | | [place], [place] | [place] [address] [place], | | | | | [address] | [place] [address] | | | | | [phone] | [phone] | | | | | | | [...] [place], | | | | | | [place] [address] | | | | | | [phone] | | | | | | | | +--------+---------+ + + + | 06/01/ | Office | Neurology | Elaine Andrews, | | | 2019 | Visit | | [address] | | | | | | [place] | | | | | | [place] [address] | | | | | | [phone] | | | | | | | | +--------+---------+ + + + documented as of this encounter Visit Diagnoses Not on filedocumented in this encounter"
--- OUTSIDE RECORDS SUMMARY | ~2019-03-02 | XMS | Encounter Summary ---
Demographics + + + | Address | [address] | | | [place] [address] | + + + | Home Phone | | + + + | Preferred Language | Unknown | + + + | Marital Status | | + + + | Christian Affiliation | Unknown | + + + | Race | Unknown | + + + | Ethnic Group | Unknown | + + + Author + + + | Author | [facility] | | | and [place] | + + + | Organization | [facility] | | | [...] Providers + +------+ + | Care Machine Lead Burner Name | Role | Phone | + [...] | | | | [place] | [phone] | | | | | [address] | | | | | | [phone] | | | +--------+ + + + [...] | | | | | | [place] [address] | | | | | | [phone] | | | | | | | | +--------+---------+ + + + | 06/01/ | Office | Neurology | Elaine Andrews, | | | 2019 | Visit | | MD [address] | | | | | | [place] | | | | | | [place] [address] | | | | | | [phone] | | | | | | | | +--------+---------+ + + + documented as of this encounter Visit Diagnoses Not on filedocumented in this encounter"
--- OUTSIDE RECORDS SUMMARY | ~2019-03-02 | XMS | Encounter Summary ---
Demographics + + + | Address | [address] | | | [place] [address] | + + + | Home Phone | | + + + | Preferred Language | Unknown | + + + | Marital Status | | + + + | Roman Catholic Affiliation | Unknown | + + + | Race | Unknown | + + + | Ethnic Group | Unknown | + + + Author + + + | Author | [facility] | | | and [place] | + + + | Organization | [facility] | | | [...] Team Providers + +------+ + | Care Campus Police Officer Name | Role | Phone | + +------+ + | Mynor Kam MD | PCP | | + +------+ + Encounter Details +--------+ + + + + | Date | Type | Department | Care Team | Description | +--------+ + + + + | 12/18/ | Orders Only | [facility] | Conversion | | | 2018 | | CONVERSION DEP [address] | Transaction, | | | | | [address] | Provider Unknown | | | | | [place] | [phone] | | | | | [address] | | | | | | [phone] | | | +--------+ + + + [...] | | | | | | [place] [address] | | | | | | [phone] | | | | | | | | +--------+---------+ + + + | 06/01/ | Office | Neurology | Elaine Andrews, | | | 2019 | Visit | | MD [address] | | | | | | [place] | | | | | | [place] [address] | | | | | | [phone] | | | | | | | | +--------+---------+ + + + documented as of this encounter Visit Diagnoses Not on filedocumented in this encounter"
--- OUTSIDE RECORDS SUMMARY | ~2019-03-02 | XMS | Encounter Summary ---
Demographics + + + | Address | [address] | | | [place] [address] | + + + | Home Phone | | + + + | Preferred Language | Unknown | + + + | Marital Status | | + + + | Scientology Affiliation | Unknown | + + + | Race | Unknown | + + + | Ethnic Group | Unknown | + + + Author + + + | Author | [facility] | | | and [place] | + + + | Organization | [facility] | | | [...] Team Providers + +------+ + | Care Display Carver Name | Role | Phone | + [...] | | | | [place] | [phone] | | | | | [address] | | | | | | [phone] | | | +--------+ + + + [...] | | | | | | [place] [address] | | | | | | [phone] | | | | | | | | +--------+---------+ + + + | 06/01/ | Office | Neurology | Elaine Andrews, | | | 2019 | Visit | | MD [address] | | | | | | [place] | | | | | | [place] [address] | | | | | | [phone] | | | | | | | | +--------+---------+ + + + documented as of this encounter Visit Diagnoses Not on filedocumented in this encounter"
--- OUTSIDE RECORDS SUMMARY | ~2019-03-02 | XMS | Encounter Summary ---
Demographics + + + | Address | [address] | | | [place] [address] | + + + | Home Phone | | + + + | Preferred Language | Unknown | + + + | Marital Status | | + + + | Amish Affiliation | Unknown | + + + [...] Team Providers + +------+ + | Care Repairer Art Objects Name | Role | Phone | + +------+ + | Mynor Kam MD | PCP | | + +------+ + Encounter Details +--------+ + + + + | Date | Type | Department | Care Team | Description | +--------+ + + + + | 06/11/ | Orders Only | [facility] | Matt, | | | 2016 | | PULMONOLOGY [address] | [address], | | | | | [address] | [address] | | | | | [place], [place] | [place] [address] [place], | | | | | [address] | [place] [address] | | | | | [phone] | [phone] | | | | | | | [...] [place], | | | | | | [place] [address] | | | | | | [phone] | | | | | | | | +--------+---------+ + + + | 06/01/ | Office | Neurology | Elaine Andrews, | | | 2019 | Visit | | [address] | | | | | | [place] | | | | | | [place] [address] | | | | | | [phone] | | | | | | | | +--------+---------+ + + + documented as of this encounter Visit Diagnoses Not on filedocumented in this encounter"
--- OUTSIDE RECORDS SUMMARY | ~2019-03-02 | XMS | Encounter Summary ---
Demographics + + + | Address | [address] | | | [place] [address] | + + + | Home Phone | | + + + | Preferred Language | Unknown | + + + | Marital Status | | + + + | Moravian Affiliation | Unknown | + + + | Race | Unknown | + + + | Ethnic Group | Unknown | + + + Author + + + | Author | [facility] | | | and [place] | + + + | Organization | [facility] | | | [...] Team Providers + +------+ + | Care Academic Support Coordinator Name | Role | Phone | + +------+ + PCP | Unavailable | + +------+ + Encounter Details +--------+ + + + + | Date | Type | Department | Care Team | Description | +--------+ + + + + | 10/06/ | Hospital | [facility] | Conversion | Unknown cause of | | 2015 | Encounter | CONVERSION DEP [address] | Transaction, | injury | | | | [address] | Provider Unknown | | | | | [place], [place] | [phone] | | | | | [address] | | | | | | [phone] | | | +--------+ + + + [...] [place] | | | | | | [place] [address] | | | | | | [phone] | | | | | | | | +--------+---------+ + + + | 06/01/ | Office | Neurology | Elaine Andrews, | | | 2019 | Visit | | MD [address] | | | | | | [place] | | | | | | [place] [address] | | | | | | [phone] | | | | | | | [...]
--- OUTSIDE RECORDS SUMMARY | ~2019-03-02 | XMS | Encounter Summary ---
Demographics + + + | Address | [address] | | | [place] [address] | + + + | Home Phone | | + + + | Preferred Language | Unknown | + + + | Marital Status | | + + + | Advent Affiliation | Unknown | + + + | Race | Unknown | + + + | Ethnic Group | Unknown | + + + Author + + + | Author | [facility] | | | and [place] | + + + | Organization | [facility] | | [...] Team Providers + +------+ + | Care Pattern Changer Name | Role | Phone | + +------+ + PCP | Unavailable | + +------+ + Encounter Details +--------+ + + + + | Date | Type | Department | Care Team | Description | +--------+ + + + + | 10/06/ | Hospital | [facility] | Conversion | Unknown cause of | | 2015 | Encounter | CONVERSION [address]P [address] | Transaction, | injury | | | | [address] | Provider Unknown | | | | | [place], [place] | [phone] | | | | | [address] | | | | | | [phone] | | | +--------+ + + + [...] [place] | | | | | | [place] [address] | | | | | | [phone] | | | | | | | | +--------+---------+ + + + | 06/01/ | Office | Neurology | Elaine Andrews, | | | 2019 | Visit | | MD [address] | | | | | | [place] | | | | | | [place] [address] | | | | | | [phone] | | | | | | | [...]
--- OUTSIDE RECORDS SUMMARY | ~2019-03-02 | XMS | Clinical Summary ---
Demographics + + + | Address | [address] | | | [place] [address] | + + + | Home Phone | | + + + | Preferred Language | Unknown | + + + | Marital Status | | + + + | Worship Affiliation | Unknown | + + + | Race | Unknown | + + + | Ethnic Group | Unknown | + + + Author + + + | Author | [facility] [facility] (Historical as of | | | 11-21-18) | + + + | Organization | [facility] (Historical as of | | | 11-21-18) | + + + | Address | Unknown | + + + | Phone | Unavailable | + + + Support + + +---------+ + | Name | Relationship | Address | Phone | + + +---------+ + | Amado [place] ECON | Unknown | | + + +---------+ + Care Team Providers + +------+ + | Care Operations Section Manager Name | Role | Phone | [...] | | + + + +---------+------+------+-------+ | montelukast | Take 1 tablet by | 30 | 11 | 03/2 | | Activ | | (SINGULAIR) 10 MG | mouth nightly. | tablet | | 2/20 | | e | | tabletIndications: | [...] | | + + + +---------+------+------+-------+ | GODFREY GARCIA | Inject 35 Units into | | 1 | 08/2 | | Activ | | 100 UNIT/ML | the skin 2 (two) | | | 8/20 | | e | | injection | times daily. | | | 18 | | | + + + +---------+------+------+-------+ | albuterol | Take 3 mLs by | 336 mL | 11 | /2 | / | Activ | | (PROVENTIL) (2.5 | nebulization every 6 | | | / | 09/24 | e | | MG/3ML) 0.083% | [...] 8 H UTD | | 3 | 05/08 | | Activ | | (ATARAX) 25 MG | PRA | | | / | | e | | tablet | | | | 19 | | | + + + +---------+------+------+-------+ | vitamin D2, | TK 1 C PO ONCE A | | 0 | 02/2 | | Activ | | ergocalciferol, | WEEK FOR 6 MONTHS | | | 0/20 | | e | | [id number] units capsule | | | | 19 [...] | | + + + +---------+------+------+-------+ | predniSONE | Take 2 tabs daily | 10 | 0 | 09/05 | | Activ | | (DELTASONE) 20 MG | for 5 days then | tablet | | 10/24 | | e | | tabletIndications: | STOP. | | | 19 | | | | Moderate persistent | | | | | | | | asthma with acute | | | | | | | | exacerbation | | | | | | | + + + +---------+------+------+-------+ | gabapentin | TAKE 4 CAPSULES BY | 300 | 3 | /2 | | Activ | | (NEURONTIN) 300 MG | MOUTH EVERY MORNING | capsule | | 08/24 | | e | | capsule | THEN 3 CAPSULES | | | 19 | | | | | EVERY NOON THEN 3 | | | | | | | | CAPSULES EVERY | | | | | | | | EVENING | | | | | | + + + +---------+------+------+-------+ | azithromycin | TAKE TWO TABLETS BY | 6 | 0 | /2 | | Activ | | (ZITHROMAX) 250 MG | MOUTH NOW then ONE | tablet | | 08/24 | | e | | tabletIndications: | TABLET DAILY DAY 2-5 | | | 19 | | | | Uncontrolled | | [...] restrictive lung disease, | | followed by credentialing analyst. She is quite sedentary because of | [...] returns to | | her PCP and Street Commissioner, she'll be seen again if clinically | [...] & Plan: Palpitations. Clinically | | benign.&-day Materials Management Supervisor, 06/01/2015: sinus rhythm, [id number], | | averaging [...] + | Acute respiratory distress syndrome (ARDS) ([facility]) | 05/06/2013 | + + + | [...] due to influenza PNA | + + Immunizations + + + + | Name [...] + + + | Blood Pressure | 131/68 | 10/29/2018 9:58 AM PDT | + + + + | Pulse | 94 | 10/29/2018 9:58 AM PDT | + + + + | Temperature | 36.6 C (97.8 F) | 10/29/2018 9:58 AM PDT | + + + + | Respiratory Rate | 18 | 11/07/2016 3:43 PM PDT | + + + + | Oxygen Saturation | 97% | 10/29/2018 9:58 AM PDT | + + + + | Inhaled Oxygen | - | - | | Concentration | | | + + + + | Weight | 147 kg (324 lb) | 10/29/2018 9:58 AM PDT | + + + + | Height | 167.6 cm (5' 6") | 10/29/2018 9:58 AM PDT | + + + + | Body Mass Index | 52.29 | 10/29/2018 9:58 AM PDT | + + + + Plan of Treatment + [...] | | | | | (#1) | 9 | | | + + [...] +------+-------+ + | MEDICARE | MEDICA | [id number] | | | [address] | | | RE | | | | [place] [address] | | | IP-OP | | | | | + +--------+ +------+-------+ + | MEDICAID | ABHI | [id number] | | | [address] | | | N | | | | [place] | | | [place] | | | | [address] | | | MEDICAL MALPRACTICE PARALEGAL | | | | | + +--------+ +------+-------+ + + +--------+ +--------+ + + | Guarantor Name | Accoun | Relation to | Date | Phone | Billing Address | | | t Type | Patient | of | | | | | | | | | | + +--------+ +--------+ + + | FEDERICO SALMON | Person | Self | [birth year] | Home: | [address] | [address] | [place] | | 1966 | [phone] [place] | | | [place] | | [phone] | [phone] | + +--------+ +--------+ + +
--- OUTSIDE RECORDS SUMMARY | ~2019-03-02 | XMS | Encounter Summary ---
Demographics + + + | Address | [address] | | | [place] [address] | + + + | Home Phone | | + + + | Preferred Language | Unknown | + + + | Marital Status | | + + + | Jew Affiliation | Unknown | + + + | Race | Unknown | + + + | Ethnic Group | Unknown | + + + Author + + + | Author | [facility] | | | and [place] | + + + | Organization | [facility] | | | and [...] Team Providers + +------+ + | Care Chargemaster Specialist Name | Role | Phone | + +------+ + PCP | Unavailable | + +------+ + Encounter Details +--------+ + + + + | Date | Type | Department | Care Team | Description | +--------+ + + + + | 11/08/ | Emergency | [facility] | Patrick Huston, | Patient left before | | 2013 | | MEDICAL CENTER | MD [address] | treatment completed | | | | EMER[facility]ENCY CENTER | [place], [place] | | | | | [address] | [address] | | | | | [place], [place] | [phone] | | | | | [address] | | | | | | [phone] | | | +--------+ + + + [...] [place], | | | | | | [place] [address] | | | | | | [phone] | | | | | | | | +--------+---------+ + + + | 06/01/ | Office | Neurology | Elaine Andrews, | | | 2019 | Visit | | MD [address] | | | | | | [address] [address] | | | | | | [place] [address] | | | | | | [phone] | | | | | | | | +--------+---------+ + + + documented as of this encounter Visit Diagnoses + + | Diagnosis | + + | Patient left before treatment completed Personal history of noncompliance with | | medical treatment, presenting hazards to health | + + documented in this encounter"
--- OUTSIDE RECORDS SUMMARY | ~2019-03-02 | XMS | Encounter Summary ---
Demographics + + + | Address | [address] | | | [place] [address] | + + + | Home Phone | | + + + | Preferred Language | Unknown | + + + | Marital Status | | + + + | Temple Affiliation | Unknown | + + + | Race | Unknown | + + + | Ethnic Group | Unknown | + + + Author + + + | Author | [facility] | | | and [place] | + + + | Organization | [facility] | | [...] Team Providers + +------+ + | Care Site Safety Representative Name | Role | Phone | + +------+ + PCP | Unavailable | + +------+ + Encounter Details +--------+ + + + + | Date | Type | Department | Care Team | Description | +--------+ + + + + | 08/13/ | Orders Only | [facility] | Elaine Andrews, | | | 2019 | | [address] | [address] | | | | | [place], [place] | [address] | | | | | [address] | [place] [address] | | | | | [phone] | [phone] | | | | | | | [...] | | | | | | [place] [address] | | | | | | [phone] | | | | | | | | +--------+---------+ + + + | 06/01/ | Office | Neurology | Elaine Andrews, | | | 2019 | Visit | | MD [address] | | | | | | [address] | | | | | | [place] [address] | | | | | | [phone] | | | | | | | | +--------+---------+ + + + documented as of this encounter Procedures + +--------+ + + + | Procedure Name | Priori | Date/Time | Associated Diagnosis | Comments | | | ty | | | | + +--------+ + + + | EXTERNAL LAB: CBC | Routin | 08/13/2018 | | Results for this | | | e | 3:15 PM | | procedure are in the | | | | PDT | | results section. | + +--------+ + + + | COMPREHENSIVE | Routin | 08/13/2018 | | Results for this | | METABOLIC PANEL | e | 3:15 PM | | procedure are in the | | | | PDT | | results section. | + +--------+ + + + documented in this encounter Results External Lab: CBC (08/13/2018 3:15 PM PDT) + + + + + + | Component | Value | Ref Range | Performed | Pathologist | | | | | At | Signature | + + + + + + | WBC | 7.76 | 3.80 - 11.00 | EXTERNAL | | | | | 10*3/uL | LAB | | + + + + + + | RED CELL | 4.31 | 3.70 - 5.10 | EXTERNAL | | | COUNT | | 10*6/uL | LAB | | + + + + + + | Hgb | 11.4 | 11.3 - 15.5 | EXTERNAL | | | | | g/dL | LAB | | + + + + + + | Hematocrit, | 35.1 | 34.0 - 46.0 % | EXTERNAL | | | POC | | | LAB | | + + + + + + | MCV | 81.3 | 80.0 - 100.0 fL | EXTERNAL | | | | | | LAB | | + + + + + + | MCH | 26.5 (L) | 27.0 - 34.0 pg | EXTERNAL | | | | | | LAB | | + + + + + + | MCHC | 32.6 | 32.0 - 35.5 | EXTERNAL | | | | | g/dL | LAB | | + + + + + + | RDW-CV | 43.8 | 37 - 53 fL | EXTERNAL | | | | | | LAB | | + + + + + + | Platelet | 274 | 150 - 400 | EXTERNAL | | | Count | | 10*3/uL | LAB | | | Plasma | | | | | + + + + + + | MPV | 8.0 | fL | EXTERNAL | | | | | | LAB | | + + + + + + | Differentia | AUTOMATED | | EXTERNAL | | | l Type | | | LAB | | + + + + + + | % Segmented | 59.68 | % | EXTERNAL | | | | | | LAB | | | Neutrophils | | | | | + + + + + + | % | 31.30 | % | EXTERNAL | | | Lymphocytes | | | LAB | | + + + + + + | % Monocytes | 6.86 | % | EXTERNAL | | | | | | LAB | | + + + + + + | % | 1.57 | % | EXTERNAL | | | Eosinophils | | | LAB | | + + + + + + | % Basophils | 0.59 | % | EXTERNAL | | | | | | LAB | | + + + + + + | Absolute | 4.63 | 1.90 - 7.40 | EXTERNAL | | | Segmented | | 10*3/uL | LAB | | | Neutrophils | | | | | + + + + + + | Absolute | 2.43 | 1.00 - 3.90 | EXTERNAL | | | Lymphocytes | | 10*3/uL | LAB | | + + + + + + | Absolute | 0.53 | 0.00 - 0.80 | EXTERNAL | | | Monocytes | | 10*3/uL | LAB | | + + + + + + | Absolute | 0.12 | 0.00 - 0.50 | EXTERNAL | | | Eosinophils | | 10*3/uL | LAB | | + + + + + + | Absolute | 0.05 | 0.00 - 0.10 | EXTERNAL | | | Basophils | | 10*3/uL | LAB | | + + + [...] + +---------+ + + Comprehensive Metabolic Panel (08/13/2018 3:15 PM PDT) + + + + + + | Component | Value | Ref Range | Performed | Pathologist | | | | | At | Signature | + + + + + + | Na | 138 | 135 - 145 | EXTERNAL | | | | | mmol/L | LAB | | + + + + + + | K | 4.5 | 3.5 - 4.9 | EXTERNAL | | | | | mmol/L | LAB | | + + + + + + | Cl | 101 | 99 - 109 mmol/L | EXTERNAL | | | | | | LAB | | + + + + + + | CO2 | 32 | 23 - 32 mmol/L | EXTERNAL | | | | | | LAB | | + + + + + + | Anion Gap | 10 | 5 - 20 mmol/L | EXTERNAL | | | | | | LAB | | + + + + + + | Glucose, | 172 (H) | 65 - 99 mg/dL | EXTERNAL | | | Fasting | | | LAB | | + + + + + + | BUN | 15 | 8 - 25 mg/dL | EXTERNAL | | | | | | LAB | | + + + + + + | Creatinine | 0.7 | 0.50 - 1.00 | EXTERNAL | | | | | mg/dL | LAB | | + + + + + + | BUN/Creatin | 21 | | EXTERNAL | | | ine Ratio | | | LAB | | + + + + + + | Calcium | 9.1 | 8.5 - 10.5 | EXTERNAL | | | | | mg/dL | LAB | | + + + + + + | Protein, | 7.9 | 6.3 - 8.2 g/dL | EXTERNAL | | | Total | | | LAB | | + + + + + + | Albumin | 3.4 (L) | 3.6 - 5.0 g/dL | EXTERNAL | | | | | | LAB | | + + + + + + | Globulin | 4.5 | 1.3 - 4.9 g/dL | EXTERNAL | | | | | | LAB | | + + + + + + | A/G Ratio | 0.8 (L) | 1.0 - 2.4 | EXTERNAL | | | | | | LAB | | + + + + + + | Bilirubin | 0.3 | 0.1 - 1.5 mg/dL | EXTERNAL | | | Total | | | LAB | | + + + + + + | ALP, | 129 (H) | 35 - 115 U/L | EXTERNAL | | | External | | | LAB | | + + + + + + | AST | 26 | 10 - 45 U/L | EXTERNAL | | | | | | LAB | | + + + + + + | ALT | 31 | 10 - 65 U/L | EXTERNAL | | | | | | LAB | | + + + + + + | Estimated | >60Comment: GFR <60: | mL/min/1.73_m2 | EXTERNAL | | | GFR | CHRONIC KIDNEY DISEASE, | | LAB | | | | IF FOUND OVER A 3 MONTH | | | | | | PERIOD. GFR <15: KIDNEY | | | | | | FAILURE. FOR | | | | | | AMERICANS, MULTIPLY THE | | | | | | CALCULATED GFR BY 1.210. | | | | | | This eGFR is calculated | | | | | | using the MDRD IDMS | | | | | | traceable equation. | | | | + + + [...]
--- OUTSIDE RECORDS SUMMARY | ~2019-03-02 | XMS | Encounter Summary ---
Demographics + + + | Address | [address] | | | [place] [address] | + + + | Home Phone | | + + + | Preferred Language | Unknown | + + + | Marital Status | | + + + | Caodaism Affiliation | Unknown | + + + | Race | Unknown | + + + | Ethnic Group | Unknown | + + + Author + + + | Author | [facility] | | | and [place] | + + + | Organization | [facility] | | [...] Team Providers + +------+ + | Care Group Work Program Aide Name | Role | Phone | + +------+ + | Mynor Kam MD | PCP | | + +------+ + Reason for Visit + + + | Reason | Comments | + + + | Follow-up | Reschedule | + + + Encounter Details +--------+ + + + + | Date | Type | Department | Care Team | Description | +--------+ + + + + | 02/26/ | Telephone | [facility] | Elaine Andrews, | Follow-up | | 2019 | | NEUROLOGY [address] | MD [address] | (Reschedule ) | | | | [address] | [facility] [address] | | | | | [place], [place] | [place] [address] | | | | | [address] | [phone] | | | | | [phone] | | | +--------+ + + + [...] Office | Pulmonology | Matt, | | 2019 | Visit | | Esperanza Arora, | | | | | | MD [address] | | | | | | [place], | | | | | | [place] [address] | | | | | | [phone] | | | | | | | | +--------+---------+ + + + | 06/01/ | Office | Neurology | Elaine Andrews, | | | 2019 | Visit | | MD [address] | | | | | | [place] | | | | | | [place] [address] | | | | | | [phone] | | | | | | | | +--------+---------+ + + + documented as of this encounter Visit Diagnoses Not on filedocumented in this encounter"
--- OUTSIDE RECORDS SUMMARY | ~2019-03-02 | XMS | Encounter Summary ---
Demographics + + + | Address | [address] | | | [place] [address] | + + + | Home Phone [...] Team Providers + +------+ + | Care County Manager Name | Role | Phone | + +------+ + | Mynor Kam MD | PCP | | + +------+ + Encounter Details +--------+ + + + + | Date | Type | Department | Care Team | Description | +--------+ + + + + | 06/02/ | Orders Only | [facility] | [facility], | | | 2019 | | PULMONOLOGY [address] | Esperanza Arora, | | | | | [address] | [address] | | | | | [place], [place] | [place], | | | | | [address] | [place] [address] | | | | | [phone] | [phone] | | | | | | | [...] [place], | | | | | | [place] [address] | | | | | | [phone] | | | | | | | | +--------+---------+ + + + | 06/01/ | Office | Neurology | Elaine Andrews, | | | 2019 | Visit | | [address] | | | | | | [place] | | | | | | [place] [address] | | | | | | [phone] | | | | | | | | +--------+---------+ + + + documented as of this encounter Visit Diagnoses Not on filedocumented in this encounter"
--- OUTSIDE RECORDS SUMMARY | ~2019-03-02 | XMS | Encounter Summary ---
Demographics + + + | Address | [address] | | | [place] [address] | + + + | Home Phone | | + + + | Preferred Language | Unknown | + + + | Marital Status | | + + + | Christian Affiliation | Unknown | + + + | Race | Unknown | + + + | Ethnic Group | Unknown | + + + Author + + + | Author | [facility] | | | and [place] | + + + | Organization | [facility] | | | [...] Team Providers + +------+ + | Care Copy Coordinator Name | Role | Phone | [...] | | | | [place] | [phone] | | | | | [address] | | | | | | [phone] | | | +--------+ + + + [...] | | | | | | [place] [address] | | | | | | [phone] | | | | | | | | +--------+---------+ + + + | 06/01/ | Office | Neurology | Elaine Andrews, | | | 2019 | Visit | | MD [address] | | | | | | [place] | | | | | | [place] [address] | | | | | | [phone] | | | | | | | | +--------+---------+ + + + documented as of this encounter Visit Diagnoses Not on filedocumented in this encounter"
--- OUTSIDE RECORDS SUMMARY | ~2019-03-02 | XMS | Encounter Summary ---
Demographics + + + | Address | [address] | | | [place] [address] | + + + | Home Phone | | + + + | Preferred Language | Unknown | + + + | Marital Status | | + + + | Gnosticism Affiliation | Unknown | + + + | Race | Unknown | + + + | Ethnic Group | Unknown | + + + Author + + + | Author | [facility] | | | and [place] | + + + | Organization | [facility] | | | [...] Team Providers + +------+ + | Care Production Finisher Name | Role | Phone | + +------+ + PCP | Unavailable | + +------+ + Encounter Details +--------+ + + + + | Date | Type | Department | Care Team | Description | +--------+ + + + + | 06/10/ | Emergency | [facility] | Edis Gudino MD | Cough; | | 2013 | | [facility]ENTER | [address] | Pneumonia | | | | EMERGENCY CENTER | [place] [address] | | | | | [address] | [phone] | | | | | [place], [place] | | | | | | [address] | | | | | | [phone] | | | +--------+ + + + [...] | | | | | | [place] [address] | | | | | | [phone] | | | | | | | | +--------+---------+ + + + | 06/01/ | Office | Neurology | Elaine Andrews, | | | 2019 | Visit | | MD [address] | | | | | | [address] | | | | | | [place] [address] | | | | | | [phone] | | | | | | | [...] NEW | | | Testing performed at [facility], [address], [place] | | | [address] CULTURE | | | STAPHYLOCOCCUS SPECIES, COAGULASE NEGATIVEAbnormal | | | GROWTH IN ONE OF TWO | | | BOTTLESAbnormal | | | TIME TO DETECTION: 26HRS 6MIN | | | POSSIBLE CONTAMINANT, CLINICAL CORRELATION REQUIRED. | | | Testing performed at | | | [facility], [address] [place] [address] REPORT STATUS | | | 06/13/2013 FINAL [...] At | + + + | [facility]IL[facility] SALMON XR CHEST 2 VIEW FRONTAL AND [...] | | | + + External Lab: [facility] (06/10/2013 8:34 PM PST) + + + + + + | Component | Value | Ref Range | Performed | Pathologist | | | | | At | Signature | + + + + + + | WBC | 7.5Comment: Testing | 3.8 - 11.0 K/uL | EXTERNAL | | | | performed at [facility];[address] | | LAB | | | | [address];[place] | | | | | | [address] | | | | + + + + + + | RED CELL | 4.44Comment: Testing | 3.70 - 5.10 | EXTERNAL | | | COUNT | performed at [facility];[address] | M/uL | LAB | | | | [address];[place] | | | | | | [address] | | | | + + + + + + | Hgb | 11.9Comment: Testing | 11.3 - 15.5 | EXTERNAL | | | | performed at [facility];[address] | g/dL | LAB | | | | [address];[place] | | | | | | [address] | | | | + + + + + + | Hematocrit, | 36.0Comment: Testing | 34.0 - 46.0 % | EXTERNAL | | | POC | performed at [facility];[address] | | LAB | | | | [address];[place] | | | | | | [address] | | | | + + + + + + | MCV | 81.0Comment: Testing | 80.0 - 100.0 fl | EXTERNAL | | | | performed at [facility];[address] | | LAB | | | | [address];[place] | | | | | | [address] | | | | + + + + + + | MCH | 26.9 (L)Comment: Testing | 27.0 - 34.0 pg | EXTERNAL | | | | performed at [facility];[address] | | LAB | | | | [address];[place] | | | | | | [address] | | | | + + + + + + | MCHC | 33.1Comment: Testing | 32.0 - 35.5 | EXTERNAL | | | | performed at [facility];[address] | g/dL | LAB | | | | [address];[place] | | | | | | [address] | | | | + + + + + + | RDW-CV | 43.3Comment: Testing | 37 - 53 fl | EXTERNAL | | | | performed at [facility];[address] | | LAB | | | | [address];[place] | | | | | | [address] | | | | + + + + + + | Platelet | 359Comment: Testing | 150 - 400 K/uL | EXTERNAL | | | Count | performed at [facility];[address] | | LAB | | | Plasma | [address];[place] | | | | | | [address] | | | | + + + + + + | MPV | 7.3Comment: Testing | fl | EXTERNAL | | | | performed at [facility];[address] | | LAB | | | | [address];[place] | | | | | | [address] | | | | + + + + + + | Differentia | AUTOMATEDComment: | | EXTERNAL | | | l Type | Testing performed at | | LAB | | | | [facility];[address] | [address];[place] [address] | | | | + + + + + + | % Segmented | 46.4Comment: Testing | % | EXTERNAL | | | | performed at [facility];[address] | | LAB | | | Neutrophils | [address];[place] | | | | | | [address] | | | | + + + + + + | % | 39.3Comment: Testing | % | EXTERNAL | | | Lymphocytes | performed at [facility];[address] | | LAB | | | | [address];[place] | | | | | | [address] | | | | + + + + + + | % Monocytes | 8.9Comment: Testing | % | EXTERNAL | | | | performed at [facility];[address] | | LAB | | | | [address];[place] | | | | | | [address] | | | | + + + + + + | % | 4.9Comment: Testing | % | EXTERNAL | | | Eosinophils | performed at [facility];[address] | | LAB | | | | [address];[place] | | | | | | [address] | | | | + + + + + + | % Basophils | 0.5Comment: Testing | % | EXTERNAL | | | | performed at [facility];[address] | | LAB | | | | [address];[place] | | | | | | [address] | | | | + + + + + + | Absolute | 3.5Comment: Testing | 1.9 - 7.4 K/uL | EXTERNAL | | | Segmented | performed at [facility];[address] | | LAB | | | Neutrophils | [address];[place] | | | | | | [address] | | | | + + + + + + | Absolute | 2.9Comment: Testing | 1.0 - 3.9 K/uL | EXTERNAL | | | Lymphocytes | performed at [facility];[address] | | LAB | | | | [address];[place] | | | | | | [address] | | | | + + + + + + | Absolute | 0.7Comment: Testing | 0 - 0.8 K/uL | EXTERNAL | | | Monocytes | performed at [facility];[address] | | LAB | | | | [address];[place] | | | | | | [address] | | | | + + + + + + | Absolute | 0.4Comment: Testing | 0 - 0.5 K/uL | EXTERNAL | | | Eosinophils | performed at [facility];[address] | | LAB | | | | [address];[place] | | | | | | [address] | | | | + + + + + + | Absolute | 0.0Comment: Testing | 0 - 0.1 K/uL | EXTERNAL | | | Basophils | performed at [facility];[address] | | LAB | | | | [address];[place], [place] | | | | | | [address] | | | | + + + [...] EXTERNAL | | | | performed at [facility];[address] | mmol/L | LAB | | | | [address];[place] | | | | | | [address] | | | | + + + + + + | K | 3.5Comment: Testing | 3.5 - 4.9 | EXTERNAL | | | | performed at [facility];[address] | mmol/L | LAB | | | | [address];[place] | | | | | | [address] | | | | + + + + + + | Cl | 100Comment: Testing | 99 - 109 mmol/L | EXTERNAL | | | | performed at [facility];[address] | | LAB | | | | [address];[place] | | | | | | [address] | | | | + + + + + + | CO2 | 31Comment: Testing | 23 - 32 mmol/L | EXTERNAL | | | | performed at [facility];[address] | | LAB | | | | [address];[place] | | | | | | [address] | | | | + + + + + + | Anion Gap | 9Comment: Testing | 5 - 20 mmol/L | EXTERNAL | | | | performed at [facility];[address] | | LAB | | | | [address];[place] | | | | | | [address] | | | | + + + + + + | Glucose, | 196 (H)Comment: Testing | 65 - 99 mg/dL | EXTERNAL | | | Fasting | performed at [facility];[address] | | LAB | | | | [address];[place] | | | | | | [address] | | | | + + + + + + | BUN | 11Comment: Testing | 8 - 25 mg/dL | EXTERNAL | | | | performed at [facility];[address] | | LAB | | | | [address];[place] | | | | | | [address] | | | | + + + + + + | Creatinine | 0.59Comment: Testing | 0.50 - 1.00 | EXTERNAL | | | | performed at [facility];[address] | mg/dL | LAB | | | | [address];[place] | | | | | | [address] | | | | + + + + + + | BUN/Creatin | 19Comment: Testing | | EXTERNAL | | | ine Ratio | performed at [facility];[address] | | LAB | | | | [address];[place] | | | | | | [address] | | | | + + + + + + | Calcium | 8.9Comment: Testing | 8.5 - 10.2 | EXTERNAL | | | | performed at [facility];[address] | mg/dL | LAB | | | | [address];[place] | | | | | | [address] | | | | + + + + + + | Protein, | 8.5 (H)Comment: Testing | 6.3 - 8.2 g/dL | EXTERNAL | | | Total | performed at [facility];[address] | | LAB | | | | [address];[place] | | | | | | [address] | | | | + + + + + + | Albumin | 3.2 (L)Comment: Testing | 3.6 - 5.0 g/dL | EXTERNAL | | | | performed at [facility];[address] | | LAB | | | | [address];[place] | | | | | | [address] | | | | + + + + + + | Globulin | 5.4 (H)Comment: Testing | 1.3 - 4.9 g/dL | EXTERNAL | | | | performed at [facility];[address] | | LAB | | | | [address];[place] | | | | | | [address] | | | | + + + + + + | A/G Ratio | 0.6 (L)Comment: Testing | 1.0 - 2.4 | EXTERNAL | | | | performed at [facility];[address] | | LAB | | | | [address];[place] | | | | | | [address] | | | | + + + + + + | Bilirubin | 0.3Comment: Testing | 0.1 - 1.5 mg/dL | EXTERNAL | | | Total | performed at [facility];[address] | | LAB | | | | [address];[place] | | | | | | [address] | | | | + + + + + + | ALP, | 105Comment: Testing | 35 - 115 U/L | EXTERNAL | | | External | performed at [facility];[address] | | LAB | | | | [address];[place] | | | | | | [address] | | | | + + + + + + | AST | 39Comment: Testing | 10 - 45 U/L | EXTERNAL | | | | performed at [facility];[address] | | LAB | | | | [address];[place] | | | | | | [address] | | | | + + + + + + | ALT | 59Comment: Testing | 10 - 65 U/L | EXTERNAL | | | | performed at [facility];[address] | | LAB | | | | [address];[place] | | | | | | [address] | | | | + + + [...] | | | | | | at [facility];[address];[place] [address] | | | | + + + [...] DAYS | | | Testing performed at [facility], [address] | | | [place] [address] REPORT STATUS | | | 06/16/2013 FINAL [...] unspecified | + + documented in this encounter"
--- OUTSIDE RECORDS SUMMARY | ~2019-03-02 | XMS | Encounter Summary ---
Demographics + + + | Address | [address] | | | [place] [address] | + + + | Home Phone | | + + + | Preferred Language | Unknown | + + + | Marital Status | | + + + | Gnosticist Affiliation | Unknown | + + + | Race | Unknown | + + + | Ethnic Group | Unknown | + + + Author + + + | Author | [facility] | | | and [place] | + + + | Organization | [facility] | | | [...] Team Providers + +------+ + | Care Guide Delegate Name | Role | Phone | + [...] Provider Unknown | | | | | [facility] | | | | | | [address] | (Fax) | | | | | [phone] | | | +--------+ + + + [...] | | | | | | [place] [address] | | | | | | [phone] | | | | | | | | +--------+---------+ + + + | 06/01/ | Office | Neurology | Elaine Andrews, | | | 2019 | Visit | | [address] | | | | | | [place] [address] | | | | | | [phone] | | | | | | | [...]
--- OUTSIDE RECORDS SUMMARY | ~2019-03-02 | XMS | Clinical Summary ---
Demographics + + + | Address | [address] | | | [place] [address] | + + + | Home Phone [...] + | Author | [facility] | + + + | Organization | [facility] | + + + | Address | Unknown | + + + | Phone | Unavailable | + + + Care Team Providers + +------+ + | Care Stunt Person Name | Role | Phone | + +------+ + PCP | Unavailable | + +------+ + Source Comments FAB is fully live on both [facility] Ambulatory and [facility] InPatient.[facility] Allergies Not on File Medications Not on file Active Problems Not [...] recent travel history available. | + + Last Filed Vital Signs Not on file Plan of Treatment + + + + + | Health Maintenance | Due Date | Last Done | Comments | + + + + + | Influenza (Flu) | | | | | vaccination (#1) | 9 | | | + + + + + | Pneumococcal | Aged Out | | No longer eligible | | vaccination | | | based on patient's | | | | | age to complete this | | | | | topic | + + + + + Results Not on filefrom Last 3 Months"
--- OUTSIDE RECORDS SUMMARY | ~2019-03-02 | XMS | Encounter Summary ---
Demographics + + + | Address | [address] | | | [place] [address] | + + + | Home Phone [...] Team Providers + +------+ + | Care Whiteprinting Machine Operator Name | Role | Phone | + +------+ + PCP | Unavailable | + +------+ + Encounter Details +--------+ + + + + | Date | Type | Department | Care Team | Description | +--------+ + + + + | 11/04/ | Hospital | [facility] | Conversion | Pain | | 2013 | Encounter | CONVERSION [address]P [address] | Transaction, | | | | | [address] | Provider Unknown | | | | | [facility] | | | | | | [address] | (Fax) | | | | | [phone] | | | +--------+ + + + [...] | | | | | | [place] [address] | | | | | | [phone] | | | | | | | | +--------+---------+ + + + | 06/01/ | Office | Neurology | Elaine Andrews, | | | 2019 | Visit | | [address] | | | | | | [place] [address] | | | | | | [phone] | | | | | | | [...]
--- OUTSIDE RECORDS SUMMARY | ~2019-03-02 | XMS | Encounter Summary ---
Demographics + + + | Address | [address] | | | [place] [address] | + + + | Home Phone [...] Team Providers + +------+ + | Care Billiard Table Mechanic Name | Role | Phone | + [...] | | | | [place] | [phone] | | | | | [address] | | | | | | [phone] | | | +--------+ + + + [...] | 2019 | Visit | | Esperanza Arroa, | | | | | | MD [address] | | | | | | [place], | | | | | | [place] [address] | | | | | | [phone] | | | | | | | | +--------+---------+ + + + | 06/01/ | Office | Neurology | Elaine Andrews, | | | 2019 | Visit | | MD [address] | | | | | | [place] | | | | | | [place] [address] | | | | | | [phone] | | | | | | | | +--------+---------+ + + + documented as of this encounter Visit Diagnoses Not on filedocumented in this encounter"
--- OUTSIDE RECORDS SUMMARY | ~2019-03-02 | XMS | Encounter Summary ---
Demographics + + + | Address | [address] | | | [place] [address] | + + + | Home Phone [...] Team Providers + +------+ + | Care Tuberculosis Specialist Name | Role | Phone | + +------+ + PCP | Unavailable | + +------+ + Encounter Details +--------+ + + + + | Date | Type | Department | Care Team | Description | +--------+ + + + + | 02/26/ | Hospital | [facility] | Fabián Salas | | | 2010 - | Encounter | [facility] | MD [address] | | | | | CENTER [address] | [address] [facility] | | | 03/06/ | | [place] | [place] [address] | | | 2010 | | [address] | [phone] | | | | | [phone] | | | +--------+ + + + [...] | Pulmonology | Matt, | | | 2020 | Visit | | Esperanza Arora, | | | | | | MD [address] | | | | | | [place], | | | | | | [place] [address] | | | | | | [phone] | | | | | | | | +--------+---------+ + + + | 06/01/ | Office | Neurology | Elaine Andrews, | | | 2019 | Visit | | MD [address] | | | | | | [place] | | | | | | [place] [address] | | | | | | [phone] | | | | | | | | +--------+---------+ + + + documented as of this encounter Visit Diagnoses Not on filedocumented in this encounter"
--- OUTSIDE RECORDS SUMMARY | ~2019-03-02 | XMS | Clinical Summary ---
Demographics + + + | Address | [address] | | | [place] [address] | + + + | Home Phone | | + + + | Preferred Language | Unknown | + + + | Marital Status | | + + + | Catholic Affiliation | Unknown | + + + | Race | Unknown | + + + | Ethnic Group | Unknown | + + + Author + + + | Author | [facility] | | | and [place] | + + + | Organization | [facility] | | [...] Team Providers + +------+ + | Care Wafer Cleaner Name | Role | Phone | + +------+ + | Mynor Kam MD | PCP | | + +------+ + Allergies Not on File Medications + + + +---------+------+------+-------+ | Medication [...] | | + + + +---------+------+------+-------+ | LANAbbyUS SHRADDHAAR | Inject 35 Units into | | 1 | 08/2 | | Activ | | 100 UNIT/ML | the skin 2 (two) | | | 8/20 | | e | | injection (pen) | times daily. | | | 18 | | | + + + +---------+------+------+-------+ | albuterol 2.5 mg/3 | Take 3 mLs by | 336 mL | 11 | 02/2 | 02/2 | Activ | | mL nebulizer | nebulization every 6 | | | 6/20 | 6/20 | e | | solution | (six) hours as | | | 19 | 20 | | | | needed for Wheezing. | | | | | | + + + +---------+------+------+-------+ | hydrOXYzine | TK 1 T PO Q 8 H UTD | | 3 | 02/1 | | Activ | | hydrochloride | PRA | | | / | | e | | (ATARAX) 25 mg | | | | 19 | | | | tablet | | | | [...] 4/20 | | e | | ol (MAYRA BELTRAN | times daily. | | | 19 | | | | INHUB) 250-50 | | | | | | | | mcg/puff diskus | | | | | | | [...] tabs daily | 10 | 0 | 06/1 | | Activ | | (DELTASONE) 20 mg | for 5 days then | tablet | | /20 | | e | | tablet | STOP. | | | 19 | | | + + + +---------+------+------+-------+ | gabapentin | TAKE 4 CAPSULES BY | 300 | 3 | 07/2 | | Activ | | (NEURONTIN) 300 mg | MOUTH EVERY MORNING | capsule | | 5/20 | | e | | capsule | [...] TABLETS BY | 6 | 0 | 07/2 | | Activ | | (ZITHROMAX) 250 mg | MOUTH NOW then ONE | tablet | | 5/20 | | e | | tablet | TABLET DAILY DAY 2-5 | | [...] + + | 02/26/ | Telephone | Neurology | Elaine Andrews, | Follow-up | | 2018 | | | MD | (Reschedule ) | +--------+ + + + + from Last 3 Months Immunizations + + + + | Name | Administration Dates | Next Due | + + + + | PNEUMOCOCCAL [...] | + + Last Filed Vital Signs + + + + + | Vital Sign | Reading | Time Taken | Comments | + + + + + | Blood Pressure | 131/68 | 10/29/2018 10:01 AM | | | | | PDT | | + + + + + | Pulse | 94 | 10/29/2018 10:01 AM | | | | | PDT | | + + + + + | Temperature | 36.6 C (97.8 F) | 10/29/2018 10:01 AM | | | | | PDT | | + + + + + | Respiratory Rate | 18 | 11/07/2016 3:49 PM | | | | | PDT | | + + + + + | Oxygen Saturation | - | - | | + + + + + | Inhaled Oxygen | - | - | | | Concentration | | | | + + + + + | Weight | 147 kg (324 lb) | 10/29/2018 10:01 AM | | | | | PDT | | + + + + + | Height | 167.6 cm (5' 6") | 10/29/2018 10:01 AM | | | | | PDT | | + + + + + | Body Mass Index | 52.29 | 10/29/2018 10:01 AM | | | [...] | | | | | MD [address] | | | | | | [place], | | | | | | [place] [address] | | | | | | [phone] | | | | | | | | +--------+---------+ + + + | 06/01/ | Office | Neurology | Elaine Andrews, | | | 2019 | Visit | | MD [address] | | | | | | [place] | | | | | | [place] [address] | | | | | | [phone] | | | | | | | [...] A1c | | 05/06/2013 | | | Screening | 4 | | | + + [...] | | | | | Screening | 9 | | | + + [...] | Pneumococcal 19-64 | | | | + + + + + | Hepatitis C | Completed | 05/14/2013 | | | Screening | | | | + + + [...] +--------+ +---------+--------+ | MEDICARE | MEDICA | [id number] | 10/06/19 | [phone] | | Medica | | | RE | | 16-Pre | 5 | | re | | | PART A | | sent | | | | | | AND B | | | | | | + +--------+ +--------+ +---------+--------+ | [employer] | MOD[employer] | [id number] | 11/10/19 | [phone] | | Medica | | MEDICAID HMO [...] Self | [birth year] | [address] | | [place] | meena/Greg | | 1966 | [phone] | [place] | | | faust[place] | | | [address] (Home) | [phone] | + +--------+ +--------+ + + Advance Directives + + + + + | Type | Date Recorded | Patient | Explanation | | | | Sleeve Setter | | + + + + + | Power of | | | | | [place] | | | | + + + + + | Advance | | | | | Directive | | | | + + + + +
--- OUTSIDE RECORDS SUMMARY | ~2019-03-02 | XMS | Encounter Summary ---
Demographics + + + | Address | [address] | | | [place] [address] | + + + | Home Phone [...] Team Providers + +------+ + | Care Superintendent Drivers Name | Role | Phone | + +------+ + PCP | Unavailable | + +------+ + Encounter Details +--------+ + + + + | Date | Type | Department | Care Team | Description | +--------+ + + + + | 05/05/ | Hospital | [facility] | Estefania Brannon DO | Acute respiratory | | 2013 - | Encounter | [facility] | [address] | failure (HCC); | | | | INTENSIVE CARE UNIT | [place] [address] | Abnormal LFTs (liver | | 05/14/ | | [address] | [phone] | function tests); | | 2013 | | [place], [place] | | Acute respiratory | | | | [address] | | distress syndrome | | | | [phone] | | (ARDS) ([facility]); | | | | | | Influenza A; Morbid | | | | | | obesity with BMI of | | | | | | 45.0-49.9, adult | | | | | | ([facility]); Poorly | | | | | | controlled diabetes | | | | | | mellitus ([facility]); | | | | | | Secondary [...] Discharge Summaries by Al Houston MD at 05/14/13 7781 Author: Al Houston MD Service: (none) Author Type: Community Relations Specialist Filed: 05/14/13 0843 Date of Service: 05/14/13 0833 Status: Signed Car Record Clerk: Al Houston MD (Physician) [facility] Service: Community Relations Specialist Discharge Summary Gilma Salmon 47 y.o. Date [...] ventilation initiated on May 01, 2013 at [facility]. HOSPITAL COURSE: May 06, 2013: PICC [...] Procedure: TRACHEOSTOMY; Surgeon: Shalonda Novoa MD; Location: [facility] MAIN OR; Service: ENT ; Laterality: N/A; move to OR table, need harmonic scalpel with focus HP, patient [address] nds Medication List As of 05/14/2013 8:33 AM Condition on Discharge: Stable, to [facility] [place] Code Status: Full Code Primary Care Physician: [...] Filed: 05/14/13 1326 Date of Service: 05/14/13 132 Status: Signed Car Record Clerk: Bryanna Keenna RN (Registered Nurse) Transport here to take pt to [facility] at bedside gave pt 10mg hydralazine and 1mg ati van. Dr Houston here to see pt off report given to Amado marcus pt discarged to care facility onver elaina Transaction, Provider Unknown - 05/14/2013 10:43 AM PST Progress Notes by Bryanna Keenan RN at 05/14/131042 Author: Bryanna Keenan RN Service: (none) Author Type: Registered Nurse Filed: 05/14/131043 Date of Service: 05/14/131042 Status: Signed Car Record Clerk: Bryanna Keenan RN (Registered Nurse) Report given to Maggy at [facility] in [facility] onver elaina Transaction, Provider Unknown - 05/14/2013 8:33 AM PST Case Management by MARTHA Kunz at 05/14/13832 Author: MARTHA Kunz Service: (none) Author Type: Tailing Machine Operator Filed: 05/14/1334 Date of Service: 05/14/13832 Status: Signed Car Record Clerk: MARTHA Kunz (Tailing Machine Operator) Received t/c from [facility] with [employer] insurance. AMbulance Auth # is [id number] for [facility] services. Called [facility] to verify their pickling drum operator time (12:30) and also called pt's [facility] to verify that pt is being transferred today. onver elaina Transaction, Provider Unknown - 05/14/2013 8:31 AM PST Case Management by MARTHA Kunz at 05/14/13 08 Author: MARTHA Kunz Service: (none) Author Type: Tailing Machine Operator Filed: 05/14/1332 Date of Service: 05/14/13830 Status: Signed Car Record Clerk: MARTHA Kunz (Tailing Machine Operator) Disposition: [facility] Transportation:[facility] [phone] All orders, signed AVS, and prescriptions have [...] Al Houston MD Service: (none) Author Type: Community Relations Specialist Filed: 05/14/1341 Date of Service: 05/14/13827 Status: Addendum Car Record Clerk: Al Houston MD (Physician) Related Notes: Original Note by Al Houston MD (Physician) filed at 05/14/1333 [facility] Service: Community Relations Specialist Progress Note Gilma Salmon 47 y.o. Hospital Day: LOS: 9 days Post-Op Day: * No surgery found * Treatment Team: Consulting Physician: Shalonda Novoa MD Admitting Provider: DO NATALEE Eats Patient Summary: Ms. Salmon is a 47-year-old female patient with morbid obesity who w as transferred to our institution on May 05, 2013 with the diagnosis of ARDS with influe nza A, on Tamiflu. She also has a history of poorly controlled diabetes type 2, asthma and b ronchitis with prior DVT. Mechanical ventilation initiated on May 01, 2013 at [facility]. ICU TIMELINE:The patient is admitted on [...] Procedure: TRACHEOSTOMY; Surgeon: Shalonda Novoa MD; Location: [facility] MAIN OR; Service: ENT ; Laterality: N/A; [...] mcg/hr (05/13/131999) [DISCONTINUED] propofol 20 mcg/kg/min (05/12/13 0800) PHYSICAL EXAM Vital Signs: BP 161/77 | Pulse 85 | Temp 98.6 F (37 C) (Oral) | Resp 23 | Ht 1.676 m (5' 5.98") | Wt 139.6 kg (307 lb 12.2 oz) | BMI 49.70 kg/m2 | SpO2 95% | ? No Intake/Output Summary (Last 24 hours) at 05/14/13 08 Last data filed at 05/14/13 0730 Gross per 24 hour Intake 1166 ml [...] sacrum or heels Lab DATA Lab 05/13/13 04205/12/13 0500 05/11/13 0419 WBC 7.3 7.1 6.6 [...] original. Progress Notes by Erlinda David MS CCC-ADVERTISING CAMPAIGN MANAGER at 05/13/13 1603 Author: Erlinda David MS CCC-ADVERTISING CAMPAIGN MANAGER Service: (none) Author Type: Speech and Receptionist Telephone Operator ologist Filed: 05/13/13 1604 Date of Service: 05/13/13 1603 Status: Signed Car Record Clerk: Erlinda David MS CCC-ADVERTISING CAMPAIGN MANAGER (Speech and Language Pathologist) 05/13/13 1500 General Session type Evaluation Family/Caregiver Present Yes Expression Primary Mode of Expression Nonverbal - written;Nonverbal - gestures (mouthing). Currently has trach. Passy-Dayville Valve Passy-Dayville Valve No Written Expression Written Expression Comment Pt able to write to compensate for inability to vocalize at this time d/t trach/vent.Pt also mouthing words and using communication board that was given and gestures. Pt and spouse had no further questions re: communication and both stated that the pt's basic wants/needs are being met at this time. Rec ADVERTISING CAMPAIGN MANAGER f/u at place of d/c. onver elaina Transaction, Provider Unknown - 05/13/2013 3:43 PM PST Case Management by MARTHA Kunz at 05/13/13 1543 Author: MARTHA Kunz Service: (none) Author Type: Tailing Machine Operator Filed: 05/13/13 1544 Date of Service: 05/13/131542 Status: Signed Car Record Clerk: MARTHA Kunz (Tailing Machine Operator) Received t/c from [facility] with [facility] ([phone]). He is requesting a return call if f or some reason pt is not able to transfer to [place] tomorrow. His crew plans to wrrive here between 11:30-12:00 if not called. Informed Unit OUTPATIENT SURGERY RN and Lead RN. Al Gonzalez MD - 05/13/2013 3:43 PM PSTFormatting of this note might be different from the o riginal. Progress Notes by Al Houston MD at 05/13/13 221 Author: Al Houston MD Service: (none) Author Type: Community Relations Specialist Filed: 05/13/13 1555 Date of Service: 05/13/131542 Status: Signed Car Record Clerk: Al Houston MD (Physician) [facility] Service: Community Relations Specialist Progress Note Gilma Salmon 47 y.o. Hospital [...] ventilation initiated on May 01, 2013 at [facility]. ICU TIMELINE:The patient is admitted on [...] Procedure: TRACHEOSTOMY; Surgeon: Shalonda Novoa MD; Location: [facility] MAIN OR; Service: ENT ; Laterality: N/A; [...] Date of Service: 05/13/13 1518 Status: Signed Car Record Clerk: Juanita Herman RN (Registered Nurse) Report received from HERIBERTO Bartlett and care assumed. Pt resting in bed with no complaints at t his time. JUANITA HERMAN 05/13/2013 3:19 PM onver elaina Transaction, Provider Unknown - 05/13/2013 1:35 PM PST Progress Notes by Edis Ken PT at 05/13/13 8995 Author: Edis Ken PT Service: (none) Author Type: Physical Therapist Filed: 05/13/13 1535 Date of Service: 05/13/13 1335 Status: Signed Car Record Clerk: Edis Ken PT (Physical Therapist) 05/13/13 1335 [...] therapy (Pt. to d/c to LTAC in [place] tomorrow per notes) Equipment Recommended (May need [...] therapy (Pt. to d/c to LTAC in [place] tomorrow per notes) Equipment Recommended (May need use of 4WW initially for UE support) Prior Function Level of [place] Independent with functional mobility;Independent with ADLs;Independe nt [...] Author: MARTHA Kunz Service: (none) Author Type: Tailing Machine Operator Filed: 05/13/13 1048 Date of Service: 05/13/13 104 Status: Signed Car Record Clerk: MARTHA Kunz (Tailing Machine Operator) Met with pt and family to update. Pt has now made the decision to go to [facility] in [place] where her mother and sister live. Spoke with Sandy Casanova who states that they are working on insurance auth. They are prepared to accept pt tomorrow to the [facility]. RN-RN report # is [phone] x [phone], report # is [phone] (Dr. Alli brown) . Made arrangements with [facility] [phone] to pickling drum operator pt at 11:30 tomorrow morning. Transfer work completed and placed on pt chart. onver elaina Transaction, Provider Unknown - 05/13/2013 9:26 AM PST Case Management by MARTHA Kunz at 05/13/13 0956 Author: MARTHA Kunz Service: (none) Author Type: Tailing Machine Operator Filed: 05/13/13 1021 Date of Service: 05/13/13925 Status: Addendum Car Record Clerk: MARTHA Kunz (Tailing Machine Operator) Related Notes: Original Note by MARTHA Kunz (Tailing Machine Operator) filed at 05/13/13 0901 Spoke with pt's insurance nurse outreach case manager Kathleen ([phone]) and Lupe ([phone]) t o discuss LTAC transfer. I also spoke with Dara Mace from [facility] who states abi t beds are opening up. Dara will get back to me juan as to whether the beds will be avail able tomorrow or Friday. Mary has a bed available (downtown [place]) today/tomorrow. Wa iting to hear back about from insurance as to whether they will agree to letting pt stay in [facility] until Friday if bed is not available at [facility] until Friday. Called [facility] to notify that there may be a transport Friday/Friday. Informed family of current issues r egarding bed availability and insurance auth. Received t/c from Gregor Mccain at [facility] (ph: [phone], fax:[phone]) indicating th at they have a bed available at their [facility]. He is aware that the [facility] c hoice is [facility] due to proximity. o, Monroe Mora MD - 05/12/2013 6:57 PM PSTFormatting of this note might be different from the origi nal. Progress Notes by Shalonda Novoa MD at 05/12/131856 Author: Shalonda Novoa MD Service: (none) Author Type: Physician Filed: 05/12/131913 Date of Service: 05/12/131856 Status: Signed Car Record Clerk: Shalonda Novoa MD (Physician) [facility] Service: Otolaryngology Progress Note Hospital Day: LOS: 7 days Post-Op Day: 1 Day Post-Op SUBJECTIVE The patient is a 47 y.o. female with morbid obesity who was transferred to [facility] on Apr with the diagnosis of ARDS with influenza A, on Tamiflu. She also has a histor y of poorly controlled diabetes type 2, asthma and bronchitis with prior DVT. The patient wa s admitted on May 05, 2013. Mechanical ventilation initiated on May 01, 2013 at [facility]. A-line placed right radial artery May [...] sulfate, nystatin, ny statin, ondansetron, ondansetron, pancrelipase (Eyd-Hzew-Niqz) 10,000 units, petrolatum, jerri sphorus, potassium chloride, [...] : [60 %-100 %] 60 % (05/12 1800) Physical Exam Nursing note and vitals reviewed. [...] Status: Full Code SHALONDA NOVOA MD 05/12/2013 ayetano, Esperanza Arora MD - 05/12/2013 5:50 PM PSTFormatting of this note might be different f rom the original. Progress Notes by Esperanza Gutierrez MD at 05/12/131749 Author: Esperanza Gutierrez MD Service: (none) Author Type: Physician Filed: 05/12/131756 Date of Service: 05/12/131749 Status: Signed Car Record Clerk: Esperanza Gutierrez MD (Physician) [facility] Service: Community Relations Specialist Progress Note Gilma Salmon 47 y.o. Hospital [...] ventilation initiated on May 01, 2013 at [facility]. ICU TIMELINE:The patient is admitted on [...] procedures. Esperanza Gutierrez MD 05/12/2013 5:50 PM ay, Ash Huynh MS CCC-ADVERTISING CAMPAIGN MANAGER - 05/12/2013 4:29 PM PSTFormatting of this note might be different from [facility] original. Progress Notes by Ysabel Lucero MS CCC-ADVERTISING CAMPAIGN MANAGER at 05/12/13 0573 Author: Ysabel Lucero MS CCC-ADVERTISING CAMPAIGN MANAGER Service: (none) Author Type: Speech and Language Pathol ogist Filed: 05/12/13 1631 Date of Service: 05/12/13 1629 Status: Signed Car Record Clerk: Ysabel Lucero MS CCC-ADVERTISING CAMPAIGN MANAGER (Speech and Language Pathologist) 05/12/13 1627 ADVERTISING CAMPAIGN MANAGER Last Visit ADVERTISING CAMPAIGN MANAGER Received On 05/12/13 Requires ADVERTISING CAMPAIGN MANAGER Follow Up On hold (ADVERTISING CAMPAIGN MANAGER to complete eval in am) Pt and family given communication board so pt is able to indicate what she needs/wants. Pt indicated she is too sick and didn't want to participate in an eval today. RN reports pt ceja s been throwing up through trach, ADVERTISING CAMPAIGN MANAGER to con't to follow for possible pmv placement when pt is appropriate. YSABEL LUCERO, MS CCC-ADVERTISING CAMPAIGN MANAGER 05/12/2013 onversion Saldana saction, Provider Unknown - 05/12/2013 2:35 PM PSTFormatting of this note might be differen t from the original. Progress Notes by Deshawn Hernandez at 05/12/13 1435 Author: Deshawn Hernandez Service: (none) Author Type: Filed: 05/12/13 1436 Date of Service: 05/12/13 1435 Status: Signed Car Record Clerk: Deshawn Hernandez () Participated in interdisciplinary rounds with Dr. Gutierrez, internet marketer. Pt is scheduled fo r transfer to LTAC. ASSOCIATE PROFESSOR OF THEATRE sorting out location with family. Family is supported by their [facility] community. Deshawn Hernandez [facility] onver elaina Transaction, Provider Unknown - 05/12/2013 1:10 PM PST Progress Notes by Joselyn Knutson RN at 05/12/13 1310 Author: Joselyn Knutson RN Service: Wound/Ostomy Care Author Type: Registered Nurse Filed: 05/12/13 1312 Date of Service: 05/12/13 1310 Status: Signed Car Record Clerk: Joselyn Knutson RN (Registered Nurse) Patient seen today by gravity prospecting operator for evaluation due to a low Huang score. Today's Brade n scale score is 13 indicating the patient is at moderate risk for pressure ulcer developmen t or injury. Pt is awake and able to shift her weight in bed. Family/friend at bedside state s HERIBERTO Gould assessed pt's skin this morning and there are no concerns at this time. Please consult wound care if further needs arise. Thank you, Joselyn Knutson RN 1:10 PM 05/12/2013 onver elaina Transaction, Provider Unknown - 05/12/2013 10:08 AM PST Case Management by MARTHA Kunz at 05/12/13 1008 Author: MARTHA Kunz Service: (none) Author Type: Tailing Machine Operator Filed: 05/12/13 1014 Date of Service: 05/12/13 1008 Status: Signed Car Record Clerk: MARTHA Kunz (Tailing Machine Operator) Received t/c from dara Mace, [facility] who states that they do not have an y beds until the end of the week. Met with patient and family to discuss other options. They do not want pt to go to [facility] or [place]. They are agreeable to me making referrals to [facility] and [facility] as a back up plan if [facility] has no beds by Friday. Faxed clini christi to [facility] (fax: [phone], ph: [phone]) and [facility] (fax: [phone], ph: [phone]). Await return calls regarding bed availability and whether they are a contracted facility with insurance. ctavio delaney Transaction, Provider Unknown - 05/11/2013 3:41 PM PST Case Management by MARTHA Kunz at 05/11/13 1541 Author: MARTHA Kunz Service: (none) Author Type: Tailing Machine Operator Filed: 05/11/13 1544 Date of Service: 05/11/13 1541 Status: Signed Car Record Clerk: MARTHA Kunz (Tailing Machine Operator) Provided gas voucher to pt's daughter who is returning to [place] tomorrow and coming figueroa k on . Family informed me this morning that they do not want the pt to go to [facility] after all. They have chosen [facility] as their first choice and [facility] as their second ch oice. At this time [facility] has no beds but may on . Pt is to be trached today and pe gged tomorrow. REferral made to cecily Jarquin for [facility] ([phone]) who will have insurance check into whether they are contracted or not. I notified Tarsha Washington from [facility] that the family has chosen a different facility. Will complete transfer paperwork once I kno w if [facility] has a bed available. Notified [facility] of possible transfer on . Salome Simms ARNP - 05/11/2013 12:12 PM PSTFormatting of this note might be different f rom the original. Progress Notes by NICANOR Martines at 05/11/13 1212 Author: NICANOR Martines Service: Community Relations Specialist Author Type: Community Relations Specialist Filed: 05/11/13 1528 Date of Service: 05/11/13 1212 Status: Signed Car Record Clerk: NICANOR Martines (Nurse Practitioner) [facility] Service: Community Relations Specialist Progress Note Gilma Salmon 47 y.o. Hospital [...] ventilation initiated on May 01, 2013 at [facility]. ICU TIMELINE:The patient is admitted on [...] ows, sacrum or heels Lab DATA Lab 05/11/13 04105/10/13 0405 05/09/13 0441 WBC 6.6 6.9 7.7 HGB 10.6* 10.6* 10.9* HCT 31.0* 30.5* 32.0* PLT 484* 360 363 Lab 05/11/13 0419 05/10/13 1722 05/10/13 0405 05/09/13 0441 05/05/13 1320 NA 137 -- 130* 137 -- [...] Case Management by MARTHA Kunz at 05/10/13 6630 Author: MARTHA Kunz Service: (none) Author Type: Tailing Machine Operator Filed: 05/10/13 1445 Date of Service: 05/10/131436 Status: Signed Car Record Clerk: MARTHA Kunz (Tailing Machine Operator) Attended morning rounds. Pt will likely be trached/pegged in the next 1-2 days. Met with p t's daughter to discuss LTAC options. They say that their father is still very sick at home with the flu and has asked them to assist with decision-making. LTAC options given. Daughter s are interested in [facility] in [place] as first choice and [facility] as second cho ice. I faxed clinical to [facility] ((fax [phone]) and spoke with the liasonTarsha ([phone]) who will plan to meet with pt's daughters tomorrow at 11:00. Salome Simsm ARNP - 05/10/2013 7:25 AM PSTFormatting of this note might be different f rom the original. Progress Notes by NICANOR Martines at 05/10/13 07 Author: NICANOR Martines Service: Community Relations Specialist Author Type: Community Relations Specialist Filed: 05/10/1312 Date of Service: 05/10/13724 Status: Signed Car Record Clerk: NICANOR Martines (Nurse Practitioner) [facility] Service: Community Relations Specialist Progress Note Gilma Salmon 47 y.o. Hospital [...] ventilation initiated on May 01, 2013 at [facility]. ICU TIMELINE:The patient is admitted on [...] chloride 0.9 % 10 mL Intravenous Q12H [facility] Continuous Infusions fentaNYL in NS 5 mcg/mL 125 mcg/hr (05/10/13432) propofol 40 mcg/kg/min (05/10/13542) sodium chloride 30 mL/hr at 05/09/131999 PHYSICAL EXAM Vital Signs: BP 142/74 | Pulse 88 | Temp 97.8 F (36.6 C) (Oral) | Resp 22 | Ht 1.676 m (5' 5.98") | Wt 145.6 kg (320 lb 15.8 oz) | BMI 51.83 kg/m2 | SpO2 94% | ? No Intake/Output Summary (Last 24 hours) at 05/10/13724 Last data filed at 05/10/13542 Gross per 24 hour Intake 3142.49 ml [...] will call Dr. novoa today who is podiatric surgeon from [facility] the office is not open [...] Progress Notes by Esperanza Gutierrez MD at 05/09/131810 Author: Esperanza Gutierrez MD Service: Community Relations Specialist Author Type: Physician Filed: 05/09/13 182 Date of Service: 05/09/131810 Status: Signed Car Record Clerk: Esperanza Gutierrez MD (Physician) [facility] Service: Community Relations Specialist Progress Note Gilma Salmon 47 y.o. Hospital [...] init iated on May 01, 2013 at [facility]. A-line placed right radial artery J [...] for GILMA SALMON ( ) as of 05/09/2013 18:15 Ref. [...] Progress Notes by Han Guerrero DMD at 05/08/132213 Author: Han Guerrero DMD Service: Community Relations Specialist Author Type: Physician Filed: 05/08/132220 Date of Service: 05/08/132213 Status: Addendum Car Record Clerk: Han Guerrero DMD (Dentist) Related Notes: Original Note by Han Guerrero DMD (Dentist) filed at 05/08/132215 [facility] Service: Community Relations Specialist PM note Gilma Salmon 47 y.o. Evaluated [...] hours) at 05/08/132213 Last data filed at 05/08/132112 Gross per 24 hour Intake 3390.3 ml [...] procedures. HAN GUERRERO MD 05/08/2013 10:14 PM ayeta kelvin, Esperanza Arora MD - 05/08/2013 2:44 PM PSTFormatting of this note might be differen t from the original. Progress Notes by Esperanza Gutierrez MD at 05/08/13 1444 Author: Esperanza Gutierrez MD Service: (none) Author Type: Physician Filed: 05/08/13 1506 Date of Service: 05/08/13 1444 Status: Signed Car Record Clerk: Esperanza Gutierrez MD (Physician) [facility] Service: Community Relations Specialist Progress Note Gilma Salmon 47 y.o. Hospital Day: LOS: 3 [...] init iated on May 01, 2013 at [facility]. A-line placed right radial artery J [...] Case Management by MARTHA Kunz at 05/07/13 1333 Author: MARTHA Kunz Service: (none) Author Type: Tailing Machine Operator Filed: 05/07/13 1346 Date of Service: 05/07/13 1333 Status: Signed Car Record Clerk: MARTHA Kunz (Tailing Machine Operator) 05/07/13 1331 Discharge Planning Evaluation Living Arrangements Spouse/significant other Support Systems Spouse/significant other;Children Type of Residence Private residence House type House-1 [facility] Home Care Services No Prior functional status Independent prior to admit. Was employed for [employer] in [place]. Met with: pt's 2 daughters Ashlyn and Juli and discussed discharge planning, Pt is a 47 y.o., female admitted with the flu and bilater al pneumonia. Pt is vented. Non smoker; has asthma. and lives with her Amado (22 years) in [place]. 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 He is sick with the flu as well so is no t coming in to visit the patient. Pt has a step-daughter in [place] and a son in [place]. 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 I a sked if they had a cheondoism that would support them. They are [facility] so I called chaplain Ruiz who got the girls connected with a local Griggs from the [facility] cheondoism and hopefully can assist wi th some housing. I offered gas vouchers if they need to transport back and forth from [facility]. CM to follow to provide support and assist with d/c planning. Patient's PCP is: MARY VALDEZ Patient's insurance:[employer] Coverage concerns: Medication coverage/concerns: Community resources utilized / needed: Assistance in transportation: TBD Identification of any specific education / training: Barriers to Discharge / Alternative housing needed: Anticipated DCP: TBD SHREE NIETO oncaty Mercado, Provider Unknown - 05/07/2013 12:21 PM PST Progress Notes by Joseph Steward at 05/07/13 1221 Author: Joseph Steward Service: (none) Author Type: Filed: 05/07/13 1223 Date of Service: 05/07/13 1221 Status: Signed Car Record Clerk: Joseph Steward () received call back from [facility] leader Luis Blunt, who then came promptly to ass ist dtrs with their needs. Chaplain Joseph CASIANO Al Gonzalez MD - 05/07/2013 11:43 AM PSTFormatting of this note might be different from the o riginal. Progress Notes by Al Houston MD at 05/07/13 1143 Author: Al Houston MD Service: (none) Author Type: Community Relations Specialist Filed: 05/07/13 1223 Date of Service: 05/07/13 114 Status: Signed Car Record Clerk: Al Houston MD (Physician) [facility] Service: Community Relations Specialist Progress Note [facility] 47 [facility] [...] initi ated on May 01, 2013 at [facility]. A-line placed right radial artery [facility] 2013. Events Overnight: Trying to wean peep [...] insulin regular 1 unit/mL 1.6 Units/hr (05/06/13 0416) PHYSICAL EXAM Vital Signs: BP 112/60 | [...] Author: Joseph Steward Service: (none) Author Type: Manager Trade Marketing Filed: 05/07/13 1037 Date of Service: 05/07/13 1035 Status: Signed Car Record Clerk: Joseph Steward () Family referral for help in contacting local [facility] leadership for housing assistance for pt's 2 dtrs who are from [place]. Called/msg for local [facility] leader. Awaiting call back. Chaplain Joseph Steward BCC onver elaina Transaction, Provider Unknown - 05/06/2013 5:52 AM PST Progress Notes by Han Guerrero DMD at 05/06/13 0552 Author: Han Guerrero DMD Service: Community Relations Specialist Author Type: Physician Filed: 05/07/13 0448 Date of Service: 05/06/13 0552 Status: Signed Car Record Clerk: Han Guerrero DMD (Dentist) Related Notes: Original Note by Han Guerrero DMD (Dentist) filed at 05/06/13 0610 [facility] Service: Community Relations Specialist Progress Note [facility]mon 47 [facility] [...] initi ated on May 01, 2013 at [facility]. A-line placed right radial artery [facility]. Events Overnight: The patient had a [...] 75 mL/hr at 05/06/13415 propofol 40 mcg/kg/min (05/06/13 0534) sodium chloride 30 mL/hr at 05/06/13415 PRN Medications acetaminophen, acetaminophen, dextrose, dextrose, dextrose, hydrALAZINE, labetalol, lip moises sturizer, magnesium sulfate, magnesium sulfate, magnesium sulfate, nystatin, nystatin, ondan setron, ondansetron, pancrelipase (Pfz-Nypq-Yiuu) 10,000 units, petrolatum, phosphorus, pota ssium chloride, [...] No Intake/Output Summary (Last 24 hours) at 05/06/13 0552 Last data filed at 05/06/13415 Gross per [...] No issues ENDOCRINE: ISS and Gtt in jun MUSCULOSKELETAL: No issues, consult PT for early [...] GUERRERO MD 05/06/2013 5:52 AM onver elaina Mercado Provider Unknown - 05/05/2013 10:45 PM PST Progress Notes by Han Guerrero DMD at 05/05/132244 Author: Han Guerrero DMD Service: (none) Author Type: Physician Filed: 05/05/132249 Date of Service: 05/05/132244 Status: Signed Car Record Clerk: Han Guerrero DMD (Dentist) [facility] Service: Community Relations Specialist PM note Gilma Salmon 47 y.o. Evaluated [...] No Intake/Output Summary (Last 24 hours) at 05/05/132245 Last data filed at 01/29/14 2207 Gross per 24 hour Intake 2152.8 ml Output 890 ml Net 1262.8 ml Rast -2, lungs CTA, abdomen globose Lab DATA Medical Record Review: PF ratio 125 IMAGING PROBLEM LIST Active Problems: Poorly controlled diabetes mellitus Morbid obesity with BMI of 45.0-49.9, adult Influenza A (H1N1) Acute respiratory failure with hypoxia Abnormal LFTs (liver function tests) ASSESSMENT & PLAN Will need Renee, decreased MV to 6 cc kg ibw, monitor closely for worsening ARDS and need for alternative ventilation *Please bill 10 minutes of critical care time spent evaluating the patient, reviewing the d trish and formulating a plan exclusive of all other procedures. HAN GUERRERO MD 05/05/2013 10:46 PM onver elaina Mercado, Provider Unknown - 05/05/2013 2:15 PM PST Progress Notes by Jenniffer Hidalgo RPH at 05/05/13 1415 Author: Jenniffer Hidalgo RPH Service: (none) Author Type: Pharmacist Filed: 05/05/13 1415 Date of Service: 05/05/131414 Status: Signed Car Record Clerk: Jenniffer Hidalgo RPH (Pharmacist) Initiation of Vancomycin Pharmacy Dosing Gilma Salmon 47 y.o. female 1.676 m (5' 6") 138.9 kg (306 lb 3.5 oz) Body mass index is 49.45 kg/(m^2). Sumner Body Weight: 59.3 kg Adjusted Body Weight: 91.1 kg CREATININE Date Value Range Status 05/05/2013 0.81 0.50 - 1.00 mg/dL Final Testing performed at [facility] [place] [address];[place] [address] Estimated CrCl : CREATININE: 0.81 (05/05/13 1320) Estimated creatinine clearance - Cockcroft-Gault CrCl: 122.2 mL/min Indications: Community acquired pneumonia Dose per Protocol: Loading Dose: Vancomycin 2250 mg (17mg/kg TBW) IV Q12H Used SCr 0.52 in chart from 014 [facility] First Dose to be Given: 1500 05-05-2013 Vancomycin Trough Due: 05-07-2013 1400 Goal Trough for Vancomycin: 15-20 mcg/mL Pharmacist: JENNIFFER HIDALGO 05/05/2013 2:13 PM onver elaina Mercado, Provider Unknown - 05/05/2013 12:53 PM PST Progress Notes by Jenniffer Hidalgo RPH at 05/05/13 1255 Author: Jenniffer Hidalgo RPH Service: (none) Author Type: Pharmacist Filed: 05/05/13 3413 Date of Service: 05/05/138 Status: Signed Car Record Clerk: Jenniffer Hidalgo RPH (Pharmacist) Renal Dosing Monitoring: Gilma Salmon 47 y.o. female Pharmacy dosing for renal function per Dr. Brannon Medication(s): unable to assess without labs Plan per protocol: Medication / Dose: will reassess Pharmacy will continue monitoring patient for appropriate dosing per renal function. 05/05/2013 12:52 PM Pharmacist: JENNIFFER HIDALGO docume nted in this encounter Plan of [...] | | | | | | [place] [address] | | | | | | [phone] | | | | | | | | +--------+---------+ + + + | 06/01/ | Office | Neurology | Elaine Andrews, | | | 2019 | Visit | | [address] | | | | | | [place] [address] | | | | | | [phone] | | | | | | | [...] | | | Fingerstick | performed at [facility];[address] | | LAB | | | | [address];[place] | | | | | | [address] | | | | + + + [...] | | | | TCL, [address] | | | | | | [place] | | | | | | [address] | | | | + + + + + + | HEP B | NON REACTIVEComment: | | EXTERNAL | | | SURFACE | Testing performed at | | LAB | | | ANTIBODY | T[facility], [address] | | | | | | [place] | | | | | | [address] | | | | + + + + + + | Hepatitis B | NON REACTIVEComment: | | EXTERNAL | | | Core Ab | Testing performed at | | LAB | | | Total | T[facility], [address] | | | | | | [place] | | | | | | [address] | | | | + + + [...] | | | | | accordance with [facility] | | | | | | Guidelines.Testing | | | | | | performed at [facility], [facility] | | | | | | [facility] [address], | | | | | | [place] [address] | | | | + + + + + + | HCV Ab | NON REACTIVEComment: | | EXTERNAL | | | | Testing performed at | | LAB | | | | [facility], [address] [place] [address] | | | | | | [place] | | | | | | [address] | | | | + + + [...] at | | | | | | [facility], [facility] | | | | | | [place] | | | | | | [address] | | | | + + + [...] | | | Fingerstick | performed at [facility];[address] | | LAB | | | | [address];[place], [place] | | | | | | [address] | | | | + + + [...] | GILMA LIMAS XR CHEST 1 VIEW 05/14/2013 5:31 AM [...] 1:53 PM PDT GILMA SALMONXR CHEST 1 VIEW05/14/2013 | | 5:31 AM [...] | | | Fingerstick | performed at [facility];8 | | LAB | | | | [address];[place] | | | | | | [address] | | | | + + + [...] | | | Fingerstick | performed at [facility];[address] | | LAB | | | | [address];[place] | | | | | | [address] | | | | + + + [...] EXTERNAL | | | | performed at [facility];888 | mmol/L | LAB | | | | [address];[place] | | | | | | [address] | | | | + + + [...] | | | Fingerstick | performed at [facility];[address] | | LAB | | | | [address];[place], [place] | | | | | | [address] | | | | + + + [...] EXTERNAL | | | | performed at [facility];[address] | | LAB | | | | [address];[place] | | | | | | [address] | | | | + + + + + + | RED CELL | 3.77Comment: Testing | 3.70 - 5.10 | EXTERNAL | | | COUNT | performed at [facility];[address] | M/uL | LAB | | | | [address];[place] | | | | | | [address] | | | | + + + + + + | Hgb | 10.4 (L)Comment: Testing | 11.3 - 15.5 | EXTERNAL | | | | performed at [facility];888 | g/dL | LAB | | | | [address];[place] | | | | | | [address] | | | | + + + + + + | Hematocrit, | 30.3 (L)Comment: Testing | 34.0 - 46.0 % | EXTERNAL | | | POC | performed at [facility];[address] | | LAB | | | | [address];[place] | | | | | | [address] | | | | + + + + + + | MCV | 80.4Comment: Testing | 80.0 - 100.0 fl | EXTERNAL | | | | performed at [facility];[address] | | LAB | | | | [address];[place] | | | | | | [address] | | | | + + + + + + | MCH | 27.6Comment: Testing | 27.0 - 34.0 pg | EXTERNAL | | | | performed at [facility];[address] | | LAB | | | | [address];[place] | | | | | | [address] | | | | + + + + + + | MCHC | 34.3Comment: Testing | 32.0 - 35.5 | EXTERNAL | | | | performed at [facility];888 | g/dL | LAB | | | | [address];[place] | | | | | | [address] | | | | + + + + + + | RDW-CV | 40.3Comment: Testing | 37 - 53 fl | EXTERNAL | | | | performed at [facility];[address] | | LAB | | | | [address];[place] | | | | | | [address] | | | | + + + + + + | Platelet | 544 (H)Comment: Testing | 150 - 400 K/uL | EXTERNAL | | | Count | performed at [facility];[address] | | LAB | | | Plasma | [address];[place] | | | | | | [address] | | | | + + + + + + | MPV | 6.6Comment: Testing | fl | EXTERNAL | | | | performed at [facility];[address] | | LAB | | | | [address];[place] | | | | | | [address] | | | | + + + + + + | Differentia | AUTOMATEDComment: | | EXTERNAL | | | l Type | Testing performed at | | LAB | | | | [facility];[address];[place] [address] | | | | + + + [...] EXTERNAL | | | | performed at [facility] | | LAB | | | | [address];[place] | | | | | | [address] | | | | + + + [...] EXTERNAL | | | | performed at [facility];[address] | mmol/L | LAB | | | | [address];[place] | | | | | | [address] | | | | + + + + + + | K | 3.5Comment: Testing | 3.5 - 4.9 | EXTERNAL | | | | performed at [facility];[address] | mmol/L | LAB | | | | [address];[place] | | | | | | [address] | | | | + + + + + + | Cl | 102Comment: Testing | 99 - 109 mmol/L | EXTERNAL | | | | performed at [facility];[address] | | LAB | | | | [address];[place] | | | | | | [address] | | | | + + + + + + | CO2 | 29Comment: Testing | 23 - 32 mmol/L | EXTERNAL | | | | performed at [facility];[address] | | LAB | | | | [address];[place] | | | | | | [address] | | | | + + + + + + | Anion Gap | 10Comment: Testing | 5 - 20 mmol/L | EXTERNAL | | | | performed at [facility];[address] | | LAB | | | | [address];[place] | | | | | | [address] | | | | + + + + + + | Glucose, | 106 (H)Comment: Testing | 65 - 99 mg/dL | EXTERNAL | | | Fasting | performed at [facility];[address] | | LAB | | | | [address];[place] | | | | | | [address] | | | | + + + + + + | BUN | 16Comment: Testing | 8 - 25 mg/dL | EXTERNAL | | | | performed at [facility];[address] | | LAB | | | | [address];[place] | | | | | | [address] | | | | + + + + + + | Creatinine | 0.55Comment: Testing | 0.50 - 1.00 | EXTERNAL | | | | performed at [facility];888 | mg/dL | LAB | | | | [address];[place] | | | | | | [address] | | | | + + + + + + | BUN/Creatin | 30Comment: Testing | | EXTERNAL | | | ine Ratio | performed at [facility];[address] | | LAB | | | | [address];[place] | | | | | | [address] | | | | + + + + + + | Calcium | 8.5Comment: Testing | 8.5 - 10.2 | EXTERNAL | | | | performed at [facility];888 | mg/dL | LAB | | | | [address];[place] | | | | | | [address] | | | | + + + + + + | Protein, | 7.5Comment: Testing | 6.3 - 8.2 g/dL | EXTERNAL | | | Total | performed at [facility];[address] | | LAB | | | | [address];[place] | | | | | | [address] | | | | + + + + + + | Albumin | 2.2 (L)Comment: Testing | 3.6 - 5.0 g/dL | EXTERNAL | | | | performed at [facility];[address] | | LAB | | | | [address];[place] | | | | | | [address] | | | | + + + + + + | Globulin | 5.3 (H)Comment: Testing | 1.3 - 4.9 g/dL | EXTERNAL | | | | performed at [facility];[address] | | LAB | | | | [address];[place] | | | | | | [address] | | | | + + + + + + | A/G Ratio | 0.4 (L)Comment: Testing | 1.0 - 2.4 | EXTERNAL | | | | performed at [facility];[address] | | LAB | | | | [address];[place] | | | | | | [address] | | | | + + + + + + | Bilirubin | 0.5Comment: Testing | 0.1 - 1.5 mg/dL | EXTERNAL | | | Total | performed at [facility];[address] | | LAB | | | | [address];[place] | | | | | | [address] | | | | + + + + + + | ALP, | 118 (H)Comment: Testing | 35 - 115 U/L | EXTERNAL | | | External | performed at [facility];[address] | | LAB | | | | [address];[place] | | | | | | [address] | | | | + + + + + + | AST | 69 (H)Comment: Testing | 10 - 45 U/L | EXTERNAL | | | | performed at [facility];[address] | | LAB | | | | [address];[place] | | | | | | [address] | | | | + + + + + + | ALT | 81 (H)Comment: Testing | 10 - 65 U/L | EXTERNAL | | | | performed at [facility];[address] | | LAB | | | | [facility], [place] | | | | | | [address] | | | | + + + [...] | | | | | | at [facility];[address];[place] [address] | | | | + + + [...] | | | Fingerstick | performed at [facility] | | LAB | | | | [address];[place] | | | | | | [address] | | | | + + + [...] | | | Fingerstick | performed at [facility];[address] | | LAB | | | | [address];[place], [place] | | | | | | [address] | | | | + + + [...] EXTERNAL | | | | performed at [facility];888 | mmol/L | LAB | | | | [address];[place] | | | | | | [address] | | | | + + + + + + | K | 4.0Comment: Testing | 3.5 - 4.9 | EXTERNAL | | | | performed at [facility];[address] | mmol/L | LAB | | | | [address];[place] | | | | | | [address] | | | | + + + + + + | Cl | 100Comment: Testing | 99 - 109 mmol/L | EXTERNAL | | | | performed at [facility];[address] | | LAB | | | | [address];[place] | | | | | | [address] | | | | + + + + + + | CO2 | 31Comment: Testing | 23 - 32 mmol/L | EXTERNAL | | | | performed at [facility];[address] | | LAB | | | | [address];[place] | | | | | | [address] | | | | + + + + + + | Anion Gap | 9Comment: Testing | 5 - 20 mmol/L | EXTERNAL | | | | performed at [facility];[address] | | LAB | | | | [address];[place] | | | | | | [address] | | | | + + + + + + | Glucose, | 179 (H)Comment: Testing | 65 - 99 mg/dL | EXTERNAL | | | Fasting | performed at [facility];[address] | | LAB | | | | [address];[place] | | | | | | [address] | | | | + + + + + + | BUN | 20Comment: Testing | 8 - 25 mg/dL | EXTERNAL | | | | performed at [facility];[address] | | LAB | | | | [address];[place] | | | | | | [address] | | | | + + + + + + | Creatinine | 0.67Comment: Testing | 0.50 - 1.00 | EXTERNAL | | | | performed at [facility];888 | mg/dL | LAB | | | | [address];[place] | | | | | | [address] | | | | + + + + + + | BUN/Creatin | 29Comment: Testing | | EXTERNAL | | | ine Ratio | performed at [facility];[address] | | LAB | | | | [address];[place] | | | | | | [address] | | | | + + + + + + | Calcium | 8.8Comment: Testing | 8.5 - 10.2 | EXTERNAL | | | | performed at [facility];888 | mg/dL | LAB | | | | [address];[place] | | | | | | [address] | | | | + + + [...] | | | | | | at [facility];[address];[place] [address] | | | | + + + [...] | | | Fingerstick | performed at [facility];[address] | | LAB | | | | [address];[place] | | | | | | [address] | | | | + + + [...] | | | catheters. Electronically signed by Geornimo Lovett MD on | | | 05/12/2013 [...] 1:53 PM PDT GILMA SALMON CHEST 1 VIEW05/12/2013 | | 5:47 AM [...] | | | Fingerstick | performed at [facility];[address] | | LAB | | | | [address];[place] | | | | | | [address] | | | | + + + [...] | | LAB | | | | [address], | | | | | | [place] [address] | | | | + + + + + + | RED CELL | 3.90Comment: Testing | 3.70 - 5.10 | EXTERNAL | | | COUNT | performed at [facility], [address] | M/uL | LAB | | | | [address], | | | | | | [place] [address] | | | | + + + + + + | Hgb | 10.4 (L)Comment: Testing | 11.3 - 15.5 | EXTERNAL | | | | performed at [facility], [address] | g/dL | LAB | | | | [address], | | | | | | [place] [address] | | | | + + + + + + | Hematocrit, | 31.8 (L)Comment: Testing | 34.0 - 46.0 % | EXTERNAL | | | POC | performed at [facility], [address] | | LAB | | | | [address], | | | | | | [place] [address] | | | | + + + + + + | MCV | 81.6Comment: Testing | 80.0 - 100.0 fl | EXTERNAL | | | | performed at [facility], [address] | | LAB | | | | [address], | | | | | | [place] [address] | | | | + + + + + + | MCH | 26.7 (L)Comment: Testing | 27.0 - 34.0 pg | EXTERNAL | | | | performed at [facility], [address] | | LAB | | | | [address], | | | | | | [place] [address] | | | | + + + + + + | MCHC | 32.7Comment: Testing | 32.0 - 35.5 | EXTERNAL | | | | performed at [facility], [address] | g/dL | LAB | | | | [address], | | | | | | [place] [address] | | | | + + + + + + | RDW-CV | 39.8Comment: Testing | 37 - 53 fl | EXTERNAL | | | | performed at [facility], [address] | | LAB | | | | [address], | | | | | | [place] [address] | | | | + + + + + + | Platelet | 469 (H)Comment: Testing | 150 - 400 K/uL | EXTERNAL | | | Count | performed at [facility], [address] | | LAB | | | Plasma | [address], | | | | | | [place] [address] | | | | + + + + + + | MPV | 7.1Comment: Testing | fl | EXTERNAL | | | | performed at [facility], [address] | | LAB | | | | [address] [place], | | | | | | [place] [address] | | | | + + + + + + | Differentia | AUTOMATEDComment: | | EXTERNAL | | | l Type | Testing performed at | | LAB | | | | [facility], [address] | | | | | | [place], [place] | | | | | | [address] | | | | + + + [...] EXTERNAL | | | | performed at [facility], [address] | | LAB | | | | [address], | | | | | | [place] [address] | | | | + + + [...] | | | | | [place] [address] | | | | + + + + + + | K | 3.7Comment: Testing | 3.5 - 4.9 | EXTERNAL | | | | performed at [facility], [address] | mmol/L | LAB | | | | [place], | | | | | | [place] [address] | | | | + + + + + + | Cl | 102Comment: Testing | 99 - 109 mmol/L | EXTERNAL | | | | performed at [facility], [address] | | LAB | | | | [address], | | | | | | [place] [address] | | | | + + + + + + | CO2 | 29Comment: Testing | 23 - 32 mmol/L | EXTERNAL | | | | performed at [facility], [address] | | LAB | | | | [address], | | | | | | [place] [address] | | | | + + + + + + | Anion Gap | 9Comment: Testing | 5 - 20 mmol/L | EXTERNAL | | | | performed at [facility], [address] | | LAB | | | | [address], | | | | | | [place] [address] | | | | + + + + + + | Glucose, | 147 (H)Comment: Testing | 65 - 99 mg/dL | EXTERNAL | | | Fasting | performed at [facility], [address] | | LAB | | | | [address], | | | | | | [place] [address] | | | | + + + + + + | BUN | 18Comment: Testing | 8 - 25 mg/dL | EXTERNAL | | | | performed at [facility], [address] | | LAB | | | | [place], | | | | | | [place] [address] | | | | + + + + + + | Creatinine | 0.45 (L)Comment: Testing | 0.50 - 1.00 | EXTERNAL | | | | performed at [facility], [address] | mg/dL | LAB | | | | [address], | | | | | | [place] [address] | | | | + + + + + + | BUN/Creatin | 40Comment: Testing | | EXTERNAL | | | ine Ratio | performed at [facility], [address] | | LAB | | | | [address], | | | | | | [place] [address] | | | | + + + + + + | Calcium | 8.9Comment: Testing | 8.5 - 10.2 | EXTERNAL | | | | performed at [facility], [address] | mg/dL | LAB | | | | [address], | | | | | | [place] [address] | | | | + + + + + + | Protein, | 7.1Comment: Testing | 6.3 - 8.2 g/dL | EXTERNAL | | | Total | performed at [facility], [address] | | LAB | | | | [place], | | | | | | [place] [address] | | | | + + + + + + | Albumin | 2.8 (L)Comment: Testing | 3.6 - 5.0 g/dL | EXTERNAL | | | | performed at [facility], [address] | | LAB | | | | [address], | | | | | | [place] [address] | | | | + + + + + + | Globulin | 4.3Comment: Testing | 1.3 - 4.9 g/dL | EXTERNAL | | | | performed at [facility], [address] | | LAB | | | | [address], | | | | | | [place] [address] | | | | + + + + + + | A/G Ratio | 0.7 (L)Comment: Testing | 1.0 - 2.4 | EXTERNAL | | | | performed at [facility], [address] | | LAB | | | | [address], | | | | | | [place] [address] | | | | + + + + + + | Bilirubin | 0.5Comment: Testing | 0.1 - 1.5 mg/dL | EXTERNAL | | | Total | performed at [facility], [address] | | LAB | | | | [address], | | | | | | [place] [address] | | | | + + + + + + | ALP, | 94Comment: Testing | 35 - 115 U/L | EXTERNAL | | | External | performed at [facility], [address] | | LAB | | | | [address], | | | | | | [place] [address] | | | | + + + + + + | AST | 62 (H)Comment: Testing | 10 - 45 U/L | EXTERNAL | | | | performed at [facility], [address] | | LAB | | | | [address], | | | | | | [place] [address] | | | | + + + + + + | ALT | 70 (H)Comment: Testing | 10 - 65 U/L | EXTERNAL | | | | performed at [facility], [address] | | LAB | | | | [address], | | | | | | [place] [address] | | | | + + + [...] [place], | | | | | | [place] [address] | | | | + + + [...] | | | Fingerstick | performed at [facility] | | LAB | | | | [address];[place] | | | | | | [address] | | | | + + + [...] EXTERNAL | | | | performed at [facility];[place] | mmol/L | LAB | | | | [address];[place], [place] | | | | | | [address] | | | | + + + [...] EXTERNAL | | | | performed at [facility];[address] | | LAB | | | | [address];[place], [place] | | | | | | [address] | | | | + + + [...] EXTERNAL | | | | performed at [facility];[address] | | LAB | | | | [address];[place], [place] | | | | | | [address] | | | | + + + [...] | | | Fingerstick | performed at [facility];[address] | | LAB | | | | [address];[place] | | | | | | [address] | | | | + + + [...] | | | Fingerstick | performed at [facility];[address] | | LAB | | | | [address];[place] | | | | | | [address] | | | | + + + [...] | | | Fingerstick | performed at [facility];[address] | | LAB | | | | [address] [address];[place] | | | | | | [address] | | | | + + + [...] At | + + + | GILMA Autumn LIMAS XR CHEST 1 VIEW 05/11/2013 5:53 [...] | | | (Calc) | performed at [facility]888 | mmol/L | LAB | | | | [address];[place] | | | | | | [address] | | | | + + + + + + | pH, Bld | 7.463 (H)Comment: | 7.300 - 7.450 | EXTERNAL | | | | Testing performed at | | LAB | | | | [facility];[address] | | | | [address];[place] [address] | | | | + + + [...] | | | | | performed at [facility] | | | | | | [facility];[place], [place] | | | | | | [address] | | | | + + + [...] EXTERNAL | | | | performed at [facility];888 | | LAB | | | | [address];[place] | | | | | | [address] | | | | + + + + + + | RED CELL | 3.85Comment: Testing | 3.70 - 5.10 | EXTERNAL | | | COUNT | performed at [facility];888 | M/uL | LAB | | | | [address];[place] | | | | | | [address] | | | | + + + + + + | Hgb | 10.6 (L)Comment: Testing | 11.3 - 15.5 | EXTERNAL | | | | performed at [facility];888 | g/dL | LAB | | | | [address];[place] | | | | | | [address] | | | | + + + + + + | Hematocrit, | 31.0 (L)Comment: Testing | 34.0 - 46.0 % | EXTERNAL | | | POC | performed at [facility];888 | | LAB | | | | [address];[place] | | | | | | [address] | | | | + + + + + + | MCV | 80.5Comment: Testing | 80.0 - 100.0 fl | EXTERNAL | | | | performed at [facility];888 | | LAB | | | | [address];[place] | | | | | | [address] | | | | + + + + + + | MCH | 27.5Comment: Testing | 27.0 - 34.0 pg | EXTERNAL | | | | performed at [facility];888 | | LAB | | | | [address];[place] | | | | | | [address] | | | | + + + + + + | MCHC | 34.1Comment: Testing | 32.0 - 35.5 | EXTERNAL | | | | performed at [facility];888 | g/dL | LAB | | | | [address];[place] | | | | | | [address] | | | | + + + + + + | RDW-CV | 41.1Comment: Testing | 37 - 53 fl | EXTERNAL | | | | performed at [facility];888 | | LAB | | | | [address];[place] | | | | | | [address] | | | | + + + + + + | Platelet | 484 (H)Comment: Testing | 150 - 400 K/uL | EXTERNAL | | | Count | performed at [facility];888 | | LAB | | | Plasma | [address];[place] | | | | | | [address] | | | | + + + + + + | MPV | 6.8Comment: Testing | fl | EXTERNAL | | | | performed at [facility];888 | | LAB | | | | [address];[place] | | | | | | [address] | | | | + + + + + + | Differentia | AUTOMATEDComment: | | EXTERNAL | | | l Type | Testing performed at | | LAB | | | | [facility];[address];[place] [address] | | | | + + + [...] EXTERNAL | | | | performed at [facility];888 | | LAB | | | | [address];[place], [place] | | | | | | [address] | | | | + + + [...] EXTERNAL | | | | performed at [facility] | | LAB | | | | [address] [facility];[place], [place] | | | | | | [address] | | | | + + + [...] EXTERNAL | | | | performed at [facility];888 | mmol/L | LAB | | | | [address];[place], [place] | | | | | | [address] | | | | + + + + + + | K | 3.9Comment: Testing | 3.5 - 4.9 | EXTERNAL | | | | performed at [facility];888 | mmol/L | LAB | | | | [address];[place] | | | | | | [address] | | | | + + + + + + | Cl | 104Comment: Testing | 99 - 109 mmol/L | EXTERNAL | | | | performed at [facility];888 | | LAB | | | | [address];[place] | | | | | | [address] | | | | + + + + + + | CO2 | 27Comment: Testing | 23 - 32 mmol/L | EXTERNAL | | | | performed at [facility];888 | | LAB | | | | [address];[place] | | | | | | [address] | | | | + + + + + + | Anion Gap | 10Comment: Testing | 5 - 20 mmol/L | EXTERNAL | | | | performed at [facility];888 | | LAB | | | | [address];[place] | | | | | | [address] | | | | + + + + + + | Glucose, | 151 (H)Comment: Testing | 65 - 99 mg/dL | EXTERNAL | | | Fasting | performed at [facility];888 | | LAB | | | | [address];[place] | | | | | | [address] | | | | + + + + + + | BUN | 17Comment: Testing | 8 - 25 mg/dL | EXTERNAL | | | | performed at [facility];888 | | LAB | | | | [address];[place] | | | | | | [address] | | | | + + + + + + | Creatinine | 0.57Comment: Testing | 0.50 - 1.00 | EXTERNAL | | | | performed at [facility];888 | mg/dL | LAB | | | | [address];[place] | | | | | | [address] | | | | + + + + + + | BUN/Creatin | 29Comment: Testing | | EXTERNAL | | | ine Ratio | performed at [facility];888 | | LAB | | | | [address];[place] | | | | | | [address] | | | | + + + + + + | Calcium | 8.3 (L)Comment: Testing | 8.5 - 10.2 | EXTERNAL | | | | performed at [facility];888 | mg/dL | LAB | | | | [address];[place] | | | | | | [address] | | | | + + + + + + | Protein, | 7.1Comment: Testing | 6.3 - 8.2 g/dL | EXTERNAL | | | Total | performed at [facility];888 | | LAB | | | | [address];[place] | | | | | | [address] | | | | + + + + + + | Albumin | 1.9 (L)Comment: Testing | 3.6 - 5.0 g/dL | EXTERNAL | | | | performed at [facility];888 | | LAB | | | | [address];[place] | | | | | | [address] | | | | + + + + + + | Globulin | 5.1 (H)Comment: Testing | 1.3 - 4.9 g/dL | EXTERNAL | | | | performed at [facility];[address] | | LAB | | | | [address];[place] | | | | | | [address] | | | | + + + + + + | A/G Ratio | 0.4 (L)Comment: Testing | 1.0 - 2.4 | EXTERNAL | | | | performed at [facility];[address] | | LAB | | | | [address];[place] | | | | | | [address] | | | | + + + + + + | Bilirubin | 0.5Comment: Testing | 0.1 - 1.5 mg/dL | EXTERNAL | | | Total | performed at [facility];888 | | LAB | | | | [address];[place] | | | | | | [address] | | | | + + + + + + | ALP, | 120 (H)Comment: Testing | 35 - 115 U/L | EXTERNAL | | | External | performed at [facility];[address] | | LAB | | | | [address];[place] | | | | | | [address] | | | | + + + + + + | AST | 79 (H)Comment: Testing | 10 - 45 U/L | EXTERNAL | | | | performed at [facility];[address] | | LAB | | | | [address];[place] | | | | | | [address] | | | | + + + + + + | ALT | 78 (H)Comment: Testing | 10 - 65 U/L | EXTERNAL | | | | performed at [facility];[address] | | LAB | | | | [address];[place] | | | | | | [address] | | | | + + + [...] | | | | | | at [facility];[address] [place] [address] | | | | | | [facility];[place] [address] | | | | + + + [...] | | | Fingerstick | performed at [facility];888 | | LAB | | | | [address];[place] | | | | | | [address] | | | | + + + [...] | | | Patient | performed at [facility];888 | | LAB | | | | [address];[place] | | | | | | [address] | | | | + + + [...] | | | | | performed at [facility];[address] | | | | | | [facility];[place], [place] | | | | | | [address] | | | | + + + [...] | | | Fingerstick | performed at [facility];[address] | | LAB | | | | [address];[place], [place] | | | | | | [address] | | | | + + + [...] EXTERNAL | | | | performed at [facility];888 | mmol/L | LAB | | | | [address];[place] | | | | | | [address] | | | | + + + [...] EXTERNAL | | | | performed at [facility];[address] | | LAB | | | | [address];[place], [place] | | | | | | [address] | | | | + + + [...] EXTERNAL | | | | performed at [facility] | | LAB | | | | [address] [facility];[place], [place] | | | | | | [address] | | | | + + + [...] | | | Fingerstick | performed at [facility];[address] | | LAB | | | | [address];[place] | | | | | | [address] | | | | + + + [...] Excursion: 2.11 cm E-F | | | [place]: 0.14 m/s IVC diameter: 2.19 cm IVC [...] 352.94 ms MV | | | A Jeff: 0.78 m/s MV DecT: 130.66 ms MV E Jeff: 1.10 m/s MV | | | E/A [...] mmHg TR Vmax: 2.30 m/s TV A Jeff: 0.56 m/s TV | | | Dec [place]: 4.82 m/s2 TV Dec Time: 116.68 ms TV E Jeff: 0.56 | | | m/s TV E/A Ratio: 1 Lugger: MARISA Authenticated by: Daina | | | Jimmy Alan MD Report Date/Time: 05-10-2013 18:08:33 | | + + + + + | Procedure Note | + + | Ermias Braxton Conversion - 11/20/2018 1:54 PM PDT Patient Name: Iron SALMON of | | : 1965 Performing Physician: Daina Alan | | MD INDICATIONS S | | HORTNESS OF BREATH, [...] (A-L): 14.81 ml/m2LAAs A2C: 11.70 | | [id number] A-L A2C: 27.34 mlLALs A2C: 4.25 cmLAAs A4C: 15.34 [id number] A-L A4C: | | 38.61 mlLALs A4C: 5.17 cmAo Diam: 2.95 cmAV Cusp: 1.94 cmLA Diam: 3.01 cmLA/Ao: | | 1.02%FS: 33.07 %EDV(Teich): 93.02 mlEF(Teich): 61.77 %ESV(Teich): 35.55 | | mlIVSd: 1.18 cmIVSs: 1.31 cmLVIDd: 4.51 cmLVIDs: 3.01 cmLVPWd: 0.59 cmLVPWs: | | 1.28 cmSV(Teich): 57.46 mlD-E Excursion: 2.11 cmE-F [place]ide: 0.14 m/sIVC diameter: | | 2.19 cmIVC collapse: 1.56 cmIVC % collapse: 26.37 %HR: 87.57 BPMAV maxPG: | | 10.95 mmHgAV meanP.08 mmHgAV Vmax: 1.65 m/Dalia Vmean: 1.16 m/Dalia VTI: 31.75 | | cmAVA Vmax: 2.87 cm2AVA (VTI): 3.09 [id number] Dopp: 3.61 l/lgqx4MECT Dopp: 8.73 | | l/minHR: 88.92 BPMLVOT maxP.99 mmHgLVOT meanP.34 mmHgLVSI Dopp: 40.59 | | ml/m2LVSV Dopp: 98.24 mlLVOT Vmax: 1.41 m/sLVOT Vmean: 0.98 m/sLVOT VTI: 29.18 | | cmMCO: 352.94 msMV A Jeff: 0.78 m/sMV DecT: 130.66 msMV E Jeff: 1.10 m/sMV E/A | | Ratio: 1.41MV [...] | | mmHgTR Vmax: 2.30 m/sTV A Jeff: 0.56 m/sTV Dec [place]: 4.82 m/s2TV Dec Time: | | 116.68 msTV E Jeff: 0.56 m/sTV E/A Ratio: 1 Lugger: ALFREDOuthenticated by: Daina | | Jimmy Dayanna MDReport Date/Time: 05-10-2013 18:08:33 IMPRESSION: 1. Sinus [...] | |D-E Excursion: 2.11 cm | |E-F [place]: 0.14 m/s | |IVC diameter: 2.19 cm [...] | |MCO: 352.94 ms | |MV A Jeff: 0.78 m/s | |MV DecT: 130.66 ms | |MV E Jeff: 1.10 m/s | |MV E/A Ratio: 1.41 [...] |TR Vmax: 2.30 m/s | |TV A Jeff: 0.56 m/s | |TV Dec [place]: 4.82 m/s2 | |TV Dec Time: 116.68 ms | |TV E Jeff: 0.56 m/s | |TV E/A Ratio: 1 | | | |Lugger: KVW | |Authenticated by: Daina Alan MD [...] | | | Fingerstick | performed at [facility];[address] | | LAB | | | | [address];[place], [place] | | | | | | [address] | | | | + + + [...] | | + + External Lab: AMELIA (05/10/2013 4:05 AM PST) + + + [...] | | | | | [place] [address] | | | | + + + + + + | RED CELL | 3.73Comment: Testing | 3.70 - 5.10 | EXTERNAL | | | COUNT | performed at [facility], [address] | M/uL | LAB | | | | [address], | | | | | | [place] [address] | | | | + + + + + + | Hgb | 10.6 (L)Comment: Testing | 11.3 - 15.5 | EXTERNAL | | | | performed at [facility], [address] | g/dL | LAB | | | | [address], | | | | | | [place] [address] | | | | + + + + + + | Hematocrit, | 30.5 (L)Comment: Testing | 34.0 - 46.0 % | EXTERNAL | | | POC | performed at [facility], [address] | | LAB | | | | [address], | | | | | | [place] [address] | | | | + + + + + + | MCV | 81.8Comment: Testing | 80.0 - 100.0 fl | EXTERNAL | | | | performed at [facility], [address] | | LAB | | | | [address], | | | | | | [place] [address] | | | | + + + + + + | MCH | 28.4Comment: Testing | 27.0 - 34.0 pg | EXTERNAL | | | | performed at [facility], [address] | | LAB | | | | [address], | | | | | | [place] [address] | | | | + + + + + + | MCHC | 34.7Comment: Testing | 32.0 - 35.5 | EXTERNAL | | | | performed at [facility], [address] | g/dL | LAB | | | | [address], | | | | | | [place] [address] | | | | + + + + + + | RDW-CV | 41.1Comment: Testing | 37 - 53 fl | EXTERNAL | | | | performed at [facility], [address] | | LAB | | | | [address], | | | | | | [place] [address] | | | | + + + + + + | Platelet | 360Comment: Testing | 150 - 400 K/uL | EXTERNAL | | | Count | performed at [facility], [address] | | LAB | | | Plasma | [address], | | | | | | [place] [address] | | | | + + + + + + | MPV | 7.5Comment: Testing | fl | EXTERNAL | | | | performed at [facility], [address] | | LAB | | | | [address], | | | | | | [place] [address] | | | | + + + + + + | Differentia | AUTOMATEDComment: | | EXTERNAL | | | l Type | Testing performed at | | LAB | | | | [facility], [address] | | | | | | [place] | | | | | | [address] | | | | + + + [...] mmol/L | LAB | | | | [address], | | | | | | [place] [address] | | | | + + + + + + | K | 3.6Comment: Testing | 3.5 - 4.9 | EXTERNAL | | | | performed at [facility], [address] | mmol/L | LAB | | | | [address], | | | | | | [place] [address] | | | | + + + + + + | Cl | 100Comment: Testing | 99 - 109 mmol/L | EXTERNAL | | | | performed at [facility], [address] | | LAB | | | | [address], | | | | | | [place] [address] | | | | + + + + + + | CO2 | 25Comment: Testing | 23 - 32 mmol/L | EXTERNAL | | | | performed at [facility], [address] | | LAB | | | | [address], | | | | | | [place] [address] | | | | + + + + + + | Anion Gap | 9Comment: Testing | 5 - 20 mmol/L | EXTERNAL | | | | performed at [facility], [address] | | LAB | | | | [address], | | | | | | [place] [address] | | | | + + + + + + | Glucose, | 144 (H)Comment: Testing | 65 - 99 mg/dL | EXTERNAL | | | Fasting | performed at [facility], [address] | | LAB | | | | [address], | | | | | | [place] [address] | | | | + + + + + + | BUN | 15Comment: Testing | 8 - 25 mg/dL | EXTERNAL | | | | performed at [facility], [address] | | LAB | | | | [address], | | | | | | [place] [address] | | | | + + + + + + | Creatinine | 0.39 (L)Comment: Testing | 0.50 - 1.00 | EXTERNAL | | | | performed at [facility], [address] | mg/dL | LAB | | | | [address], | | | | | | [place] [address] | | | | + + + + + + | BUN/Creatin | 38Comment: Testing | | EXTERNAL | | | ine Ratio | performed at [facility], [address] | | LAB | | | | [address], | | | | | | [place] [address] | | | | + + + + + + | Calcium | 8.0 (L)Comment: Testing | 8.5 - 10.2 | EXTERNAL | | | | performed at [facility], [address] | mg/dL | LAB | | | | [address], | | | | | | [place] [address] | | | | + + + [...] [address] | | | | | | [address], | | | | | | [place] [address] | | | | + + + [...] | | | Fingerstick | performed at [facility];[address] | | LAB | | | | [address];[place] | | | | | | [address] | | | | + + + [...] EXTERNAL | | | | performed at [facility];888 | mmol/L | LAB | | | | [address];[place], [place] | | | | | | [address] | | | | + + + [...] EXTERNAL | | | | performed at [facility];88 | | LAB | | | | [address];[place], [place] | | | | | | [address] | | | | + + + [...] EXTERNAL | | | | performed at [facility] | | LAB | | | | [address] [facility];[place], [place] | | | | | | [address] | | | | + + + [...] | | | Fingerstick | performed at [facility];[address] | | LAB | | | | [address];[place] | | | | | | [address] | | | | + + + [...] | | | Fingerstick | performed at [facility];[address] | | LAB | | | | [address];[place] | | | | | | [address] | | | | + + + [...] EXTERNAL | | | | performed at [facility];888 | mmol/L | LAB | | | | [address];[place], [place] | | | | | | [address] | | | | + + + [...] EXTERNAL | | | | performed at [facility] | | LAB | | | | [facility], [place] | | | | | | [address] | | | | + + + [...] EXTERNAL | | | | performed at [facility];[address] | | LAB | | | | [address];[place] | | | | | | [address] [...] | | | Fingerstick | performed at [facility];[address] | | LAB | | | | [address];[place], [place] | | | | | | [address] | | | | + + + [...] EXTERNAL | | | | performed at [facility];[address] | | LAB | | | | [address];[place], [place] | | | | | | [address] | | | | + + + + + + | RED CELL | 3.95Comment: Testing | 3.70 - 5.10 | EXTERNAL | | | COUNT | performed at [facility];888 | M/uL | LAB | | | | [address];[place] | | | | | | [address] | | | | + + + + + + | Hgb | 10.9 (L)Comment: Testing | 11.3 - 15.5 | EXTERNAL | | | | performed at [facility];888 | g/dL | LAB | | | | [address];[place] | | | | | | [address] | | | | + + + + + + | Hematocrit, | 32.0 (L)Comment: Testing | 34.0 - 46.0 % | EXTERNAL | | | POC | performed at [facility];[address] | | LAB | | | | [address];[place] | | | | | | [address] | | | | + + + + + + | MCV | 81.0Comment: Testing | 80.0 - 100.0 fl | EXTERNAL | | | | performed at [facility];[address] | | LAB | | | | [address];[place] | | | | | | [address] | | | | + + + + + + | MCH | 27.7Comment: Testing | 27.0 - 34.0 pg | EXTERNAL | | | | performed at [facility];[address] | | LAB | | | | [address];[place] | | | | | | [address] | | | | + + + + + + | MCHC | 34.2Comment: Testing | 32.0 - 35.5 | EXTERNAL | | | | performed at [facility];888 | g/dL | LAB | | | | [address];[place] | | | | | | [address] | | | | + + + + + + | RDW-CV | 42.9Comment: Testing | 37 - 53 fl | EXTERNAL | | | | performed at [facility];[address] | | LAB | | | | [address];[place] | | | | | | [address] | | | | + + + + + + | Platelet | 363Comment: Testing | 150 - 400 K/uL | EXTERNAL | | | Count | performed at [facility];[address] | | LAB | | | Plasma | [address];[place] | | | | | | [address] | | | | + + + + + + | MPV | 7.1Comment: Testing | fl | EXTERNAL | | | | performed at [facility];[address] | | LAB | | | | [address];[place] | | | | | | [address] | | | | + + + + + + | Differentia | AUTOMATEDComment: | | EXTERNAL | | | l Type | Testing performed at | | LAB | | | | [facility];[address];[place] [address] | | | | + + + [...] EXTERNAL | | | | performed at [facility];[address] | | LAB | | | | [address];[place] | | | | | | [address] | | | | + + + [...] EXTERNAL | | | | performed at [facility];[address] | | LAB | | | | [address];[place], [place] | | | | | | [address] | | | | + + + [...] EXTERNAL | | | | performed at [facility];888 | mmol/L | LAB | | | | [address];[place] | | | | | | [address] | | | | + + + + + + | K | 3.9Comment: Testing | 3.5 - 4.9 | EXTERNAL | | | | performed at [facility];888 | mmol/L | LAB | | | | [address];[place] | | | | | | [address] | | | | + + + + + + | Cl | 106Comment: Testing | 99 - 109 mmol/L | EXTERNAL | | | | performed at [facility];[address] | | LAB | | | | [address];[place] | | | | | | [address] | | | | + + + + + + | CO2 | 26Comment: Testing | 23 - 32 mmol/L | EXTERNAL | | | | performed at [facility];[address] | | LAB | | | | [address];[place] | | | | | | [address] | | | | + + + + + + | Anion Gap | 10Comment: Testing | 5 - 20 mmol/L | EXTERNAL | | | | performed at [facility];[address] | | LAB | | | | [address];[place] | | | | | | [address] | | | | + + + + + + | Glucose, | 160 (H)Comment: Testing | 65 - 99 mg/dL | EXTERNAL | | | Fasting | performed at [facility] | | LAB | | | | [address];[place] | | | | | | [address] | | | | + + + + + + | BUN | 16Comment: Testing | 8 - 25 mg/dL | EXTERNAL | | | | performed at [facility] | | LAB | | | | [address];[place] | | | | | | [address] | | | | + + + + + + | Creatinine | 0.61Comment: Testing | 0.50 - 1.00 | EXTERNAL | | | | performed at [facility] | mg/dL | LAB | | | | [address];[place] | | | | | | [address] | | | | + + + + + + | BUN/Creatin | 26Comment: Testing | | EXTERNAL | | | ine Ratio | performed at [facility] | | LAB | | | | [address];[place] | | | | | | [address] | | | | + + + + + + | Calcium | 8.1 (L)Comment: Testing | 8.5 - 10.2 | EXTERNAL | | | | performed at [facility] | mg/dL | LAB | | | | [address];[place] | | | | | | [address] | | | | + + + [...] | | | | | | at [facility];[place] [address] | | | | + + + [...] | | | Fingerstick | performed at [facility] | | LAB | | | | [address];[place], [place] | | | | | | [address] | | | | + + + [...] | | | Fingerstick | performed at [facility] | | LAB | | | | [address];[place], [place] | | | | | | [address] | | | | + + + [...] EXTERNAL | | | | performed at [facility] | mmol/L | LAB | | | | [address];[place], [place] | | | | | | [address] | | | | + + + [...] | | | Fingerstick | performed at [facility] | | LAB | | | | [address];[place] | | | | | | [address] | | | | + + + [...] EXTERNAL | | | | performed at [facility] | mmol/L | LAB | | | | [address];[place] | | | | | | [address] | | | | + + + [...] EXTERNAL | | | | performed at [facility] | | LAB | | | | [address] [facility];[place], [place] | | | | | | [address] | | | | + + + [...] EXTERNAL | | | | performed at [facility] | | LAB | | | | [address] [facility];[place], [place] | | | | | | [address] | | | | + + + [...] EXTERNAL | | | | performed at [facility] | | LAB | | | | [address];[place] | | | | | | [address] | | | | + + + + + + | RED CELL | 4.07Comment: Testing | 3.70 - 5.10 | EXTERNAL | | | COUNT | performed at [facility] | M/uL | LAB | | | | [address];[place] | | | | | | [address] | | | | + + + + + + | Hgb | 11.1 (L)Comment: Testing | 11.3 - 15.5 | EXTERNAL | | | | performed at [facility] | g/dL | LAB | | | | [address];[place] | | | | | | [address] | | | | + + + + + + | Hematocrit, | 32.9 (L)Comment: Testing | 34.0 - 46.0 % | EXTERNAL | | | POC | performed at [facility] | | LAB | | | | [address];[place] | | | | | | [address] | | | | + + + + + + | MCV | 80.8Comment: Testing | 80.0 - 100.0 fl | EXTERNAL | | | | performed at [facility] | | LAB | | | | [address];[place] | | | | | | [address] | | | | + + + + + + | MCH | 27.3Comment: Testing | 27.0 - 34.0 pg | EXTERNAL | | | | performed at [facility] | | LAB | | | | [address];[place] | | | | | | [address] | | | | + + + + + + | MCHC | 33.8Comment: Testing | 32.0 - 35.5 | EXTERNAL | | | | performed at [facility] | g/dL | LAB | | | | [address];[place] | | | | | | [address] | | | | + + + + + + | RDW-CV | 41.1Comment: Testing | 37 - 53 fl | EXTERNAL | | | | [facility] [facility] | | LAB | | | | [address];[place] | | | | | | [address] | | | | + + + + + + | Platelet | 307Comment: Testing | 150 - 400 K/uL | EXTERNAL | | | Count | performed at [facility] | | LAB | | | Plasma | [address];[place] | | | | | | [address] | | | | + + + + + + | MPV | 7.5Comment: Testing | fl | EXTERNAL | | | | performed at [facility] | | LAB | | | | [address];[place] | | | | | | [address] | | | | + + + + + + | Differentia | AUTOMATEDComment: | | EXTERNAL | | | l Type | Testing performed at | | LAB | | | | [facility] [facility] | | | | | | Bl;[place] [address] | | | | + + + [...] EXTERNAL | | | | performed at [facility] | | LAB | | | | [address] [facility];[place], [place] | | | | | | [address] | | | | + + + [...] LAB | | | | performed at [facility] | | | | | | [address];[place], [place] | | | | | | [address] | | | | + + + [...] EXTERNAL | | | | performed at [facility];888 | mmol/L | LAB | | | | [address];[place] | | | | | | [address] | | | | + + + + + + | K | 3.7Comment: SLT | 3.5 - 4.9 | EXTERNAL | | | | HEMOLYSISTesting | mmol/L | LAB | | | | performed at [facility] | | | | | | [address];[place] | | | | | | [address] | | | | + + + + + + | Cl | 106Comment: Testing | 99 - 109 mmol/L | EXTERNAL | | | | performed at [facility] | | LAB | | | | [address];[place] | | | | | | [address] | | | | + + + + + + | CO2 | 26Comment: Testing | 23 - 32 mmol/L | EXTERNAL | | | | performed at [facility];[address] | | LAB | | | | [address];[place] | | | | | | [address] | | | | + + + + + + | Anion Gap | 10Comment: Testing | 5 - 20 mmol/L | EXTERNAL | | | | performed at [facility] | | LAB | | | | [address];[place] | | | | | | [address] | | | | + + + + + + | Glucose, | 179 (H)Comment: Testing | 65 - 99 mg/dL | EXTERNAL | | | Fasting | performed at [facility];[address] | | LAB | | | | [address];[place] | | | | | | [address] | | | | + + + + + + | BUN | 16Comment: Testing | 8 - 25 mg/dL | EXTERNAL | | | | performed at [facility] | | LAB | | | | [address];[place] | | | | | | [address] | | | | + + + + + + | Creatinine | 0.62Comment: Testing | 0.50 - 1.00 | EXTERNAL | | | | performed at [facility];888 | mg/dL | LAB | | | | [address];[place] | | | | | | [address] | | | | + + + + + + | BUN/Creatin | 26Comment: Testing | | EXTERNAL | | | ine Ratio | performed at [facility];[address] | | LAB | | | | [address];[place] | | | | | | [address] | | | | + + + + + + | Calcium | 7.9 (L)Comment: Testing | 8.5 - 10.2 | EXTERNAL | | | | performed at [facility];888 | mg/dL | LAB | | | | [address];[place] | | | | | | [address] | | | | + + + [...] | | | | | | at [facility];[address] [place] [address] | | | | | | [facility];[place] [address] | | | | + + + [...] Ermias Braxton Conversion - 11/20/2018 1:53 PM ISI [id number] yearsXR | | CHEST 1 VIEW05/08/2013 5:49 [...] | | | Fingerstick | performed at [facility] | | LAB | | | | [address];[place] | | | | | | [address] | | | | + + + [...] | | | Fingerstick | performed at [facility];888 | | LAB | | | | [address];[place] | | | | | | [address] | | | | + + + [...] | | | Fingerstick | performed at [facility];[address] | | LAB | | | | [address];[place], [place] | | | | | | [address] | | | | + + + [...] EXTERNAL | | | | performed at [facility];888 | mmol/L | LAB | | | | [address];[place] | | | | | | [address] | | | | + + + [...] | EXTERNAL LAB | | performed at [facility];[address] [place] [phone] NAP1 BI | | | 027 NAP1 BI PRESUMPTIVE NEGATIVE | | | Detection of 027 NAP1 BI strains of C. difficile is presumptive and | | | for epidemiological purposes and not intended to guide or monitor | | | treatment for C. difficile infections. Testing performed at [facility] | | | [facility];[place] [address] | | + + + + +---------+ [...] | | | Fingerstick | performed at [facility];[address] | | LAB | | | | [address];[place], [place] | | | | | | [address] | | | | + + + + + + + + | Specimen | + + | | + + + +---------+ + + | Performing | Address | City/State/Zipcode | Phone Number | | Organization | | | | + +---------+ + + | EXTERNAL LAB | | | | + +---------+ + + XR Chest 1 Vw (05/07/2013 5:43 AM PST) + + | [...] EXTERNAL | | | | performed at [facility] | | LAB | | | | [address];[place] | | | | | | [address] | | | | + + + + + + | RED CELL | 4.28Comment: Testing | 3.70 - 5.10 | EXTERNAL | | | COUNT | performed at [facility];888 | M/uL | LAB | | | | [address];[place] | | | | | | [address] | | | | + + + + + + | Hgb | 11.8Comment: Testing | 11.3 - 15.5 | EXTERNAL | | | | performed at [facility];888 | g/dL | LAB | | | | [address];[place] | | | | | | [address] | | | | + + + + + + | Hematocrit, | 35.0Comment: Testing | 34.0 - 46.0 % | EXTERNAL | | | POC | performed at [facility];[address] | | LAB | | | | [address];[place] | | | | | | [address] | | | | + + + + + + | MCV | 81.7Comment: Testing | 80.0 - 100.0 fl | EXTERNAL | | | | performed at [facility];[address] | | LAB | | | | [address];[place] | | | | | | [address] | | | | + + + + + + | MCH | 27.6Comment: Testing | 27.0 - 34.0 pg | EXTERNAL | | | | performed at [facility];888 | | LAB | | | | [address];[place] | | | | | | [address] | | | | + + + + + + | MCHC | 33.8Comment: Testing | 32.0 - 35.5 | EXTERNAL | | | | performed at [facility];888 | g/dL | LAB | | | | [address];[place] | | | | | | [address] | | | | + + + + + + | RDW-CV | 42.4Comment: Testing | 37 - 53 fl | EXTERNAL | | | | performed at [facility];[address] | | LAB | | | | [address];[place] | | | | | | [address] | | | | + + + + + + | Platelet | 260Comment: Testing | 150 - 400 K/uL | EXTERNAL | | | Count | performed at [facility];[address] | | LAB | | | Plasma | [address];[place] | | | | | | [address] | | | | + + + + + + | MPV | 8.0Comment: Testing | fl | EXTERNAL | | | | performed at [facility];[address] | | LAB | | | | [address];[place] | | | | | | [address] | | | | + + + + + + | Differentia | AUTOMATEDComment: | | EXTERNAL | | | l Type | Testing performed at | | LAB | | | | [facility];[address];[place] [address] | | | | + + + [...] EXTERNAL | | | | performed at [facility];[address] | | LAB | | | | [address];[place], [place] | | | | | | [address] | | | | + + + [...] EXTERNAL | | | | performed at [facility];[address] | | LAB | | | | [address];[place] | | | | | | [address] | | | | + + + [...] EXTERNAL | | | | performed at [facility];888 | mmol/L | LAB | | | | [address];[place] | | | | | | [address] | | | | + + + + + + | K | 3.7Comment: Testing | 3.5 - 4.9 | EXTERNAL | | | | performed at [facility];888 | mmol/L | LAB | | | | [address];[place] | | | | | | [address] | | | | + + + + + + | Cl | 108Comment: Testing | 99 - 109 mmol/L | EXTERNAL | | | | performed at [facility];[address] | | LAB | | | | [address];[place] | | | | | | [address] | | | | + + + + + + | CO2 | 24Comment: Testing | 23 - 32 mmol/L | EXTERNAL | | | | performed at [facility];[address] | | LAB | | | | [address];[place] | | | | | | [address] | | | | + + + + + + | Anion Gap | 13Comment: Testing | 5 - 20 mmol/L | EXTERNAL | | | | performed at [facility];888 | | LAB | | | | [address];[place] | | | | | | [address] | | | | + + + + + + | Glucose, | 125 (H)Comment: Testing | 65 - 99 mg/dL | EXTERNAL | | | Fasting | performed at [facility];[address] | | LAB | | | | [address];[place] | | | | | | [address] | | | | + + + + + + | BUN | 12Comment: Testing | 8 - 25 mg/dL | EXTERNAL | | | | performed at [facility];[address] | | LAB | | | | [address];[place] | | | | | | [address] | | | | + + + + + + | Creatinine | 0.76Comment: Testing | 0.50 - 1.00 | EXTERNAL | | | | performed at [facility];888 | mg/dL | LAB | | | | [address];[place] | | | | | | [address] | | | | + + + + + + | BUN/Creatin | 15Comment: Testing | | EXTERNAL | | | ine Ratio | performed at [facility];[address] | | LAB | | | | [address];[place] | | | | | | [address] | | | | + + + + + + | Calcium | 7.9 (L)Comment: Testing | 8.5 - 10.2 | EXTERNAL | | | | performed at [facility];888 | mg/dL | LAB | | | | [address];[place] | | | | | | [address] | | | | + + + [...] | | | | | | at [facility];[address] [place] [address] | | | | | | [facility];[place] [address] | | | | + + + [...] | | | Fingerstick | performed at [facility];[address] | | LAB | | | | [address];[place], [place] | | | | | | [address] | | | | + + + [...] | | | Fingerstick | performed at [facility];[address] | | LAB | | | | [address];[place] | | | | | | [address] | | | | + + + [...] | | | Fingerstick | performed at [facility];888 | | LAB | | | | [address];[place] | | | | | | [address] | | | | + + + [...] | | | Fingerstick | performed at [facility];[address] | | LAB | | | | [address];[place] | | | | | | [address] | | | | + + + [...] | | | Fingerstick | performed at [facility];888 | | LAB | | | | [address];[place] | | | | | | [address] | | | | + + + [...] | | | Fingerstick | performed at [facility];[address] | | LAB | | | | [address];[place], [place] | | | | | | [address] | | | | + + + [...] EXTERNAL | | | | performed at [facility];888 | mmol/L | LAB | | | | [address];[place] | | | | | | [address] | | | | + + + [...] EXTERNAL | | | | performed at [facility];[address] | | LAB | | | | [address];[place], [place] | | | | | | [address] | | | | + + + [...] | | | Fingerstick | performed at [facility];888 | | LAB | | | | [address];[place] | | | | | | [address] | | | | + + + [...] | | | Fingerstick | performed at [facility];[address] | | LAB | | | | [address];[place], [place] | | | | | | [address] | | | | + + + [...] | | | Fingerstick | performed at [facility];[address] | | LAB | | | | [address];[place], [place] | | | | | | [address] | | | | + + + + + + + + | Specimen | + + | | + + + +---------+ + + | Performing | Address | City/State/Zipcode | Phone Number | | Organization | | | | + +---------+ + + | EXTERNAL LAB | | | | + +---------+ + + XR Chest 1 Tyrell (05/06/2013 5:42 AM PST) + + | Specimen [...] | | | Fingerstick | performed at [facility];888 | | LAB | | | | [address];[place] | | | | | | [address] | | | | + + + + + + + + | Specimen | + + | | + + + +---------+ + + | Performing | Address | City/State/Zipcode | Phone Number | | Organization | | | | + +---------+ + + | EXTERNAL LAB | | | | + +---------+ + + External Lab: AMELIA (05/06/2013 4:38 AM PST) + + + [...] | | | | | [place] [address] | | | | + + + + + + | RED CELL | 4.48Comment: Testing | 3.70 - 5.10 | EXTERNAL | | | COUNT | performed at [facility], [address] | M/uL | LAB | | | | [address], | | | | | | [place] [address] | | | | + + + + + + | Hgb | 11.7Comment: Testing | 11.3 - 15.5 | EXTERNAL | | | | performed at [facility], [address] | g/dL | LAB | | | | [address], | | | | | | [place] [address] | | | | + + + + + + | Hematocrit, | 36.6Comment: Testing | 34.0 - 46.0 % | EXTERNAL | | | POC | performed at [facility], [address] | | LAB | | | | [address], | | | | | | [place] [address] | | | | + + + + + + | MCV | 81.7Comment: Testing | 80.0 - 100.0 fl | EXTERNAL | | | | performed at [facility], [address] | | LAB | | | | [address], | | | | | | [place] [address] | | | | + + + + + + | MCH | 26.1 (L)Comment: Testing | 27.0 - 34.0 pg | EXTERNAL | | | | performed at [facility], [address] | | LAB | | | | [address], | | | | | | [place] [address] | | | | + + + + + + | MCHC | 32.0Comment: Testing | 32.0 - 35.5 | EXTERNAL | | | | performed at [facility], [address] | g/dL | LAB | | | | [address], | | | | | | [place] [address] | | | | + + + + + + | RDW-CV | 39.8Comment: Testing | 37 - 53 fl | EXTERNAL | | | | performed at [facility], [address] | | LAB | | | | [address], | | | | | | [place] [address] | | | | + + + + + + | Platelet | 202Comment: Testing | 150 - 400 K/uL | EXTERNAL | | | Count | performed at [facility], [address] | | LAB | | | Plasma | [address], | | | | | | [place] [address] | | | | + + + + + + | MPV | 8.3Comment: Testing | fl | EXTERNAL | | | | performed at [facility], [address] | | LAB | | | | [address], | | | | | | [place] [address] | | | | + + + + + + | Differentia | AUTOMATEDComment: | | EXTERNAL | | | l Type | Testing performed at | | LAB | | | | [facility], [address] | | | | | | [place] | | | | | | [address] | | | | + + + [...] EXTERNAL | | | | performed at [facility];[address] | | LAB | | | | [address];[place], [place] | | | | | | [address] | | | | + + + [...] EXTERNAL | | | | performed at [facility];[address] | | LAB | | | | [address];[place], [place] | | | | | | [address] | | | | + + + [...] | EXTERNAL | | | A1c | [facility] Diabetes | | LAB | | | [...] | | | | | performed at [facility], [address] | | | | | [address] [facility], | | | | | | [place] [address] | | | | + + + [...] | | | | | performed at [facility], [address] | | | | | | [facility] | | | | | | [place] [address] | | | | + + + [...] EXTERNAL | | | | performed at [facility];[address] | | LAB | | | | [address];[place], [place] | | | | | | [address] | | | | + + + [...] EXTERNAL | | | | performed at [facility];888 | mmol/L | LAB | | | | [address];[place] | | | | | | [address] | | | | + + + + + + | K | 3.7Comment: Testing | 3.5 - 4.9 | EXTERNAL | | | | performed at [facility];888 | mmol/L | LAB | | | | [address];[place] | | | | | | [address] | | | | + + + + + + | Cl | 109Comment: Testing | 99 - 109 mmol/L | EXTERNAL | | | | performed at [facility];[address] | | LAB | | | | [address];[place] | | | | | | [address] | | | | + + + + + + | CO2 | 25Comment: Testing | 23 - 32 mmol/L | EXTERNAL | | | | performed at [facility];[address] | | LAB | | | | [address];[place] | | | | | | [address] | | | | + + + + + + | Anion Gap | 11Comment: Testing | 5 - 20 mmol/L | EXTERNAL | | | | performed at [facility];[address] | | LAB | | | | [address];[place] | | | | | | [address] | | | | + + + + + + | Glucose, | 97Comment: Testing | 65 - 99 mg/dL | EXTERNAL | | | Fasting | performed at [facility];[address] | | LAB | | | | [address];[place] | | | | | | [address] | | | | + + + + + + | BUN | 6 (L)Comment: Testing | 8 - 25 mg/dL | EXTERNAL | | | | performed at [facility];[address] | | LAB | | | | [address];[place] | | | | | | [address] | | | | + + + + + + | Creatinine | 0.70Comment: Testing | 0.50 - 1.00 | EXTERNAL | | | | performed at [facility];888 | mg/dL | LAB | | | | [address];[place] | | | | | | [address] | | | | + + + + + + | BUN/Creatin | 9Comment: Testing | | EXTERNAL | | | ine Ratio | performed at [facility];[address] | | LAB | | | | [address];[place] | | | | | | [address] | | | | + + + + + + | Calcium | 7.5 (L)Comment: Testing | 8.5 - 10.2 | EXTERNAL | | | | performed at [facility];888 | mg/dL | LAB | | | | [address];[place] | | | | | | [address] | | | | + + + [...] | | | | | | at [facility];[address] [place] [address] | | | | | | [facility];[place] [address] | | | | + + + [...] | | | Fingerstick | performed at [facility];[address] | | LAB | | | | [address];[place] | | | | | | [address] | | | | + + + [...] | | | Fingerstick | performed at [facility];[address] | | LAB | | | | [address];[place] | | | | | | [address] | | | | + + + [...] | | | Fingerstick | performed at [facility];[address] | | LAB | | | | [address];[place] | | | | | | [address] | | | | + + + [...] | | | Fingerstick | performed at [facility];[address] | | LAB | | | | [address];[place] | | | | | | [address] | | | | + + + [...] | | | Fingerstick | performed at [facility];[address] | | LAB | | | | [address];[place], [place] | | | | | | [address] | | | | + + + [...] EXTERNAL | | | | performed at [facility];888 | mmol/L | LAB | | | | [address];[place] | | | | | | [address] | | | | + + + [...] EXTERNAL | | | | performed at [facility];[address] | | LAB | | | | [address];[place], [place] | | | | | | [address] | | | | + + + [...] EXTERNAL | | | | performed at [facility] | | LAB | | | | [address];[place], [place] | | | | | | [address] | | | | + + + [...] | Testing performed at | | | [facility];[address] [facility];[place] [address] CULTURE | | | NO GROWTH | | | Testing performed at [facility], [address] [facility], | | | [place] [address] REPORT STATUS | | | 05/06/2013 FINAL [...] EXTERNAL | | | | performed at [facility];[address] | | LAB | | | | [address];[place] | | | | | | [address] | | | | + + + + + + | RBC, UA | 16-25Comment: Testing | 0 - 5 /hpf | EXTERNAL | | | | performed at [facility];[address] | | LAB | | | | [address];[place] | | | | | | [address] | | | | + + + + + + | Epithelial | 1-5Comment: Testing | /lpf | EXTERNAL | | | Cells | performed at [facility];[address] | | LAB | | | | [address];[place] | | | | | | [address] | | | | + + + + + + | Bacteria, | 1+ (A)Comment: Testing | | EXTERNAL | | | UA | performed at [facility];[address] | | LAB | | | | [address];[place] | | | | | | [address] | | | | + + + [...] EXTERNAL | | | | performed at [facility];[address] | | LAB | | | | [address];[place] | | | | | | [address] | | | | + + + + + + | Clarity | CLOUDYComment: Testing | | EXTERNAL | | | | performed at [facility];[address] | | LAB | | | | [address];[place] | | | | | | [address] | | | | + + + + + + | Specific | 1.015Comment: Testing | 1.001 - 1.035 | EXTERNAL | | | Marathon | performed at [facility];[address] | | LAB | | | | [address];[place] | | | | | | [address] | | | | + + + + + + | Leukocyte | JOSE CARLOS (Juan Carlos)Comment: | | EXTERNAL | | | Esterase, | Testing performed at | | LAB | | | Urine | [facility];[address];[place] [address] | | | | + + + + + + | Nitrite, | NEGATIVEComment: Testing | | EXTERNAL | | | Urine | performed at [facility];[address] | | LAB | | | | [address];[place] | | | | | | [address] | | | | + + + + + + | Urobilinoge | 0.2Comment: Testing | mg/dL | EXTERNAL | | | n, Urine | performed at [facility] | | LAB | | | | [address];[place] | | | | | | [address] | | | | + + + + + + | Protein, | NEGATIVEComment: Testing | mg/dL | EXTERNAL | | | Urine | performed at [facility] | | LAB | | | | [address];[place] | | | | | | [address] | | | | + + + + + + | pH, Urine | 6.0Comment: Testing | 4.6 - 8.0 | EXTERNAL | | | | performed at [facility] | | LAB | | | | [address];[place] | | | | | | [address] | | | | + + + + + + | Blood, | LARGE (A)Comment: | | EXTERNAL | | | Urine | Testing performed at | | LAB | | | | [facility];[place] [address] | | | | + + + + + + | Ketones | NEGATIVEComment: Testing | mg/dL | EXTERNAL | | | | performed at [facility] | | LAB | | | | [address];[place] | | | | | | [address] | | | | + + + + + + | Bilirubin, | NEGATIVEComment: Testing | | EXTERNAL | | | Urine | performed at [facility];[address] | | LAB | | | | [address];[place] | | | | | | [address] | | | | + + + + + + | Glucose, | NEGATIVEComment: Testing | mg/dL | EXTERNAL | | | Urine | performed at [facility] | | LAB | | | | [address];[place] | | | | | | [address] | | | | + + + [...] | | | Fingerstick | performed at [facility];[address] | | LAB | | | | [address];[place] | | | | | | [address] | | | | + + + [...] | | | Fingerstick | performed at [facility];[address] | | LAB | | | | [address];[place], [place] | | | | | | [address] | | | | + + + [...] | Testing performed | | | at [facility];[address] [place] [address];[place] [address] SPECIAL REQUESTS | | | RAC | | | Testing performed at [facility];[address] [place] [address];[place] [address] | | | CULTURE NO GROWTH 6 DAYS | | | Testing performed | | | at [facility], [address] [place] [address] REPORT STATUS | | | 05/11/2013 FINAL [...] | | | Fingerstick | performed at [facility];[address] | | LAB | | | | [address];[place], [place] | | | | | | [address] | | | | + + + [...] EXTERNAL | | | | performed at [facility];[address] | | LAB | | | | [address];[place] | | | | | | [address] | | | | + + + + + + | RED CELL | 4.48Comment: Testing | 3.70 - 5.10 | EXTERNAL | | | COUNT | performed at [facility];[address] | M/uL | LAB | | | | [address];[place] | | | | | | [address] | | | | + + + + + + | Hgb | 12.4Comment: Testing | 11.3 - 15.5 | EXTERNAL | | | | performed at [facility];[address] | g/dL | LAB | | | | [address];[place] | | | | | | [address] | | | | + + + + + + | Hematocrit, | 36.1Comment: Testing | 34.0 - 46.0 % | EXTERNAL | | | POC | performed at [facility];[address] | | LAB | | | | [address];[place] | | | | | | [address] | | | | + + + + + + | MCV | 80.6Comment: Testing | 80.0 - 100.0 fl | EXTERNAL | | | | performed at [facility] | | LAB | | | | [address];[place] | | | | | | [address] | | | | + + + + + + | MCH | 27.7Comment: Testing | 27.0 - 34.0 pg | EXTERNAL | | | | performed at [facility] | | LAB | | | | [address];[place] | | | | | | [address] | | | | + + + + + + | MCHC | 34.3Comment: Testing | 32.0 - 35.5 | EXTERNAL | | | | performed at [facility]888 | g/dL | LAB | | | | [address];[place] | | | | | | [address] | | | | + + + + + + | RDW-CV | 41.1Comment: Testing | 37 - 53 fl | EXTERNAL | | | | performed at [facility];888 | | LAB | | | | [address];[place] | | | | | | [address] | | | | + + + + + + | Platelet | 211Comment: Testing | 150 - 400 K/uL | EXTERNAL | | | Count | performed at [facility];888 | | LAB | | | Plasma | [address];[place] | | | | | | [address] | | | | + + + + + + | MPV | 8.2Comment: Testing | fl | EXTERNAL | | | | performed at [facility];888 | | LAB | | | | [address];[place] | | | | | | [address] | | | | + + + + + + | Differentia | AUTOMATEDComment: | | EXTERNAL | | | l Type | Testing performed at | | LAB | | | | [facility];[address] | | | [address];[place] [address] | | | | + + + [...] EXTERNAL | | | | performed at [facility];888 | | LAB | | | | [address];[place], [place] | | | | | | [address] | | | | + + + [...] EXTERNAL | | | | performed at [facility] | | LAB | | | | [address] [facility];[place], [place] | | | | | | [address] | | | | + + + [...] EXTERNAL | | | | performed at [facility]888 | mmol/L | LAB | | | | [address];[place] | | | | | | [address] | | | | + + + + + + | K | 3.4 (L)Comment: Testing | 3.5 - 4.9 | EXTERNAL | | | | performed at [facility]888 | mmol/L | LAB | | | | [address];[place] | | | | | | [address] | | | | + + + + + + | Cl | 104Comment: Testing | 99 - 109 mmol/L | EXTERNAL | | | | performed at [facility];888 | | LAB | | | | [address];[place] | | | | | | [address] | | | | + + + + + + | CO2 | 27Comment: Testing | 23 - 32 mmol/L | EXTERNAL | | | | performed at [facility];888 | | LAB | | | | [address];[place] | | | | | | [address] | | | | + + + + + + | Anion Gap | 11Comment: Testing | 5 - 20 mmol/L | EXTERNAL | | | | performed at [facility];888 | | LAB | | | | [address];[place] | | | | | | [address] | | | | + + + + + + | Glucose, | 188 (H)Comment: Testing | 65 - 99 mg/dL | EXTERNAL | | | Fasting | performed at [facility];888 | | LAB | | | | [address];[place] | | | | | | [address] | | | | + + + + + + | BUN | 3 (L)Comment: Testing | 8 - 25 mg/dL | EXTERNAL | | | | performed at [facility];888 | | LAB | | | | [address];[place] | | | | | | [address] | | | | + + + + + + | Creatinine | 0.81Comment: Testing | 0.50 - 1.00 | EXTERNAL | | | | performed at [facility];888 | mg/dL | LAB | | | | [address];[place] | | | | | | [address] | | | | + + + + + + | BUN/Creatin | 4Comment: Testing | | EXTERNAL | | | ine Ratio | performed at [facility];888 | | LAB | | | | [address];[place] | | | | | | [address] | | | | + + + + + + | Calcium | 7.6 (L)Comment: Testing | 8.5 - 10.2 | EXTERNAL | | | | performed at [facility];888 | mg/dL | LAB | | | | [address];[place] | | | | | | [address] | | | | + + + + + + | Protein, | 6.3Comment: Testing | 6.3 - 8.2 g/dL | EXTERNAL | | | Total | performed at [facility];888 | | LAB | | | | [address];[place] | | | | | | [address] | | | | + + + + + + | Albumin | 2.2 (L)Comment: Testing | 3.6 - 5.0 g/dL | EXTERNAL | | | | performed at [facility] | | LAB | | | | [address];[place] | | | | | | [address] | | | | + + + + + + | Globulin | 4.1Comment: Testing | 1.3 - 4.9 g/dL | EXTERNAL | | | | performed at [facility];888 | | LAB | | | | [address];[place] | | | | | | [address] | | | | + + + + + + | A/G Ratio | 0.5 (L)Comment: Testing | 1.0 - 2.4 | EXTERNAL | | | | performed at [facility];888 | | LAB | | | | [address];[place] | | | | | | [address] | | | | + + + + + + | Bilirubin | 0.5Comment: Testing | 0.1 - 1.5 mg/dL | EXTERNAL | | | Total | performed at [facility];888 | | LAB | | | | [address];[place] | | | | | | [address] | | | | + + + + + + | ALP, | 99Comment: Testing | 35 - 115 U/L | EXTERNAL | | | External | performed at [facility];888 | | LAB | | | | [address];[place] | | | | | | [address] | | | | + + + + + + | AST | 134 (H)Comment: Testing | 10 - 45 U/L | EXTERNAL | | | | performed at [facility];888 | | LAB | | | | [address];[place] | | | | | | [address] | | | | + + + + + + | ALT | 157 (H)Comment: Testing | 10 - 65 U/L | EXTERNAL | | | | performed at [facility];888 | | LAB | | | | [address];[place] | | | | | | [address] | | | | + + + [...] | | | | | | at [facility];[address] [place] [address] | | | | | | [facility];[place] [address] | | | | + + + [...] | Testing performed | | | at [facility];[address] [place] [address] SPECIAL REQUESTS | | | RAC | | | Testing performed at [facility];[address] [place] [address] | | | CULTURE NO GROWTH 6 DAYS | | | Testing performed | | | at [facility], [address] [place] [address] REPORT STATUS | | | 05/11/2013 FINAL [...] | | | Fingerstick | performed at [facility];888 | | LAB | | | | [address];[place] | | | | | | [address] | | | | + + + [...] EXTERNAL LAB | | Testing performed at [facility];[address] [place] [address];[place] [address] MRSA PCR | | | NEGATIVE Testing performed at | | | [facility];[address] [place] [address];[place] [address] | | + + + + +---------+ [...] | Testing performed at | | | [facility];[address] [facility];[place] [address] GRAM STAIN | | | GREATER THAN 10 WBCS/LPF | | | LESS THAN 10 SEC/LPF | | | NO ORGANISMS SEEN | | | Testing performed at [facility], [address] | | | [facility], [place] [address] CULTURE | | | NO GROWTH 2 DAYS | | | Testing performed at [facility], [address] [facility], | | | [place] [address] REPORT STATUS | | | 05/07/2013 FINAL [...] Acute respiratory distress syndrome (ARDS) ([facility]) Other pulmonary insufficiency, not | | elsewhere classified, following trauma and surgery | + + | Influenza A Influenza with other respiratory manifestations | + + | Morbid obesity with BMI of 45.0-49.9, adult ([facility]) | + + | Poorly controlled diabetes mellitus ([facility]) Type II or unspecified type diabetes | | mellitus without mention of complication, not stated as uncontrolled | + + | Secondary bacterial pneumonia | + + documented in this encounter
--- OUTSIDE RECORDS SUMMARY | ~2019-03-02 | XMS | Encounter Summary ---
Demographics + + + | Address | [address] | | | [place] [address] | + + + | Home Phone | | + + + | Preferred Language | Unknown | + + + | Marital Status | | + + + | Amish Affiliation | Unknown | + + + | Race | Unknown | + + + | Ethnic Group | Unknown | + + + Author + + + | Author | [facility] | | | and [place] | + + + | Organization | [facility] | | | and [...] Team Providers + +------+ + | Care Stretch Machine Operator Name | Role | Phone | + +------+ + PCP | Unavailable | + +------+ + Encounter Details +--------+ + + + + | Date | Type | Department | Care Team | Description | +--------+ + + + + | 01/08/ | Hospital | [facility] | Fabián Salas | | | 2010 - | Encounter | MED [facility] | MD [address] | | | | CENTER [address] | [facility] | | | 02/04/ | | [place] | [place] [address] | | | 2010 | | [address] | [phone] | | | | | [phone] | | | +--------+ + + + [...] the past several months. 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 [place] is [...] | | | | | | [place] [address] | | | | | | [phone] | | | | | | | | +--------+---------+ + + + | 06/01/ | Office | Neurology | Elaine Andrews, | | 2019 | Visit | | MD [address] | | | | | | [address] | | | | | | [place] [address] | | | | | | [phone] | | | | | | | [...] | + +--------+ + + + | NOLA JOSHUA | Routin | 01/08/2011 | | [...] [facility] | | | activity | Performed: [facility] | | [facility] | | | | [facility] | | MEDICAL | | | | [place], [facility] [address] , | | [place] - | | | | [place] [address] | | LABORATORY | | | | CLIA: [id number] | | | | + + + + + + + + | Specimen | + + | | + + + + + + + | Performing | Address | City/State/Zipcode | Phone Number | | Organization | | | | + + + + + | [facility] | [address] | [place], [place] | [phone] | | [facility] | | [address] | | | - LABORATORY | | | | + + + + + | [facility] | [address] | [place], [place] | | | [facility] | | [address] | | | - LABORATORY | | [...] [facility] | | | activity | Performed: [facility] | | [facility] | | | | [facility] | | MEDICAL | | | | Center, [address], | | CENTER - | | | | [place] [address] | | LABORATORY | | | | CLIA: [id number] | | | | + + + + + + + + | Specimen | + + | | + + + + + + + | Performing | Address | City/State/Zipcode | Phone Number | | Organization | | | | + + + + + | [facility] | [address] | [place] | [phone] | | [facility] | | [address] | | | - LABORATORY | | | | + + + + + | [facility] | [address] | [place], [place] | | | [facility] | | [address] | | | - LABORATORY | | [...] | LABORATORY | | | | [facility] | | | | | | Center, [address], | | | | | | [place] [address] | | | | | | CLIA: [id number] | | | | + + + + + + + + | Specimen | + + | | + + + + + + + | Performing | Address | City/State/Zipcode | Phone Number | | Organization | | | | + + + + + | [facility] | [address] | [place] | [phone] | | [facility] | | [address] | | | - LABORATORY | | | | + + + + + | [facility] | [address] | [place] | | | [facility] | | [address] | | | - LABORATORY | | | | + + + + + Factor V Tess Mutation (01/08/2011 12:47 PM PDT) + + [...] | FVRESULT | Negative | () | [facility] | | | | | [...] | | | | | agreement with [facility] | | | | | | [employer] | | | | | | [...] | | | | | | [facility] | | | | | | [place], [address], | | | | | | [place] [address] | | | | | | DIALLOIA: [id number] | | | | + + + + + + + + | Specimen | + + | | + + + + + + + | Performing | Address | City/State/Zipcode | Phone Number | | Organization | | | | + + + + + | [facility] | [address] | [place] | [phone] | | [facility] | | [address] | | | - LABORATORY | | | | + + + + + | [facility] | [address] | [place] | | | [facility] | | [address] | | | - LABORATORY | | | | + + + + + DRVVT - Dilute Mynor Viper Venom (01/08/2011 12:47 PM PDT) + [...] Negative A | 0.0 - 1.2 | [facility] | | | ratio | Lupus Inhibitor [...] Performed: | | | | | | [facility] | | | | | | [facility], [address] | | | | | | , [place] [address] | | | | | | CLIA: [id number] | | | | + + + + + + + + | Specimen | + + | | + + + + + + + | Performing | Address | City/State/Zipcode | Phone Number | | Organization | | | | + + + + + | [facility] | [address] | [place] | [phone] | | [facility] | | [address] | | | - LABORATORY | | | | + + + + + | [facility] | [address] | [place] | | | [facility] | | [address] | | | - LABORATORY | | [...] | LABORATORY | | | | [facility] | | | | | | Center, [address], | | | | | | [place] [address] | | | | | | CLIA: [id number] | | | | + + + + + + + + | Specimen | + + | | + + + + + + + | Performing | Address | City/State/Zipcode | Phone Number | | Organization | | | | + + + + + | [facility] | [address] | [place] | [phone] | | [facility] | | [address] | | | - LABORATORY | | | | + + + + + | [facility] | [address] | [place] | | | [facility] | | [address] | | | - LABORATORY | | [...] | | | n III | Performed: [facility] | | [facility] | | | Antigen | [facility] | | MEDICAL | | | | [place], [address] , | | CENTER - | | | | [place] [address] | | LABORATORY | | | | CLIA: [id number] | | | | + + + + + + + + | Specimen | + + | | + + + + + + + | Performing | Address | City/State/Zipcode | Phone Number | | Organization | | | | + + + + + | [facility] | [address] | [place], [place] | [phone] | | [facility] | | [address] | | | - LABORATORY | | | | + + + + + | [facility] | [address] | [place], [place] | | | [facility] | | [address] | | | - LABORATORY | | [...] [facility] | | | Time, | Performed: [facility] | | [facility] | | | Control | [facility] | | MEDICAL | | | | Center, [address] , | | CENTER - | | | | [place] [address] | | LABORATORY | | | | CLIA: [id number] | | | | + + + + + + + + | Specimen | + + | | + + + + + + + | Performing | Address | City/State/Zipcode | Phone Number | | Organization | | | | + + + + + | [facility] | [address] | [place], [place] | [phone] | | [facility] | | [address] | | | - LABORATORY | | | | + + + + + | [facility] | [address] | [place], [place] | | | [facility] | | [address] | | | - LABORATORY | | [...] | tidylserine | of phosphatidylserine | | [facility] | | | IgM | antibodies [...] [address], | | | | | | [place] [address] | | | | | | CLIA: [id number] | | | | + + + + + + + + | Specimen | + + | | + + + + + + + | Performing | Address | City/State/Zipcode | Phone Number | | Organization | | | | + + + + + | [facility] | [address] | [place] | [phone] | | [facility] | | [address] | | | - LABORATORY | | | | + + + + + | [facility] | [address] | [place] | | | [facility] | | [address] | | | - LABORATORY | | [...] | | | N ACTIVITY | Performed: [facility] | | [facility] | | | | [facility] | | MEDICAL | | | | Center, [address], | | CENTER - | | | | [place] [address] | | LABORATORY | | | | MAYNOR: [id number] | | | | + + + + + + + + | Specimen | + + | | + + + + + + + | Performing | Address | City/State/Zipcode | Phone Number | | Organization | | | | + + + + + | [facility] | [address] | [place], [place] | [phone] | | [facility] | | [address] | | | - LABORATORY | | | | + + + + + | [facility] | [address] | [place] | | | [facility] | | [address] | | | - LABORATORY | | [...] | | | ORAL ANTICOAGULATION | | MICHAEL | | | | RANGE | | [...] [address] | [place] | [phone] | | [facility] | | [address] | | | - LABORATORY | | | | + + + + + | [facility] | [address] | [place] | | | [facility] | | [address] | | | - LABORATORY | | [...] JACOBANDRY | | | | | | [facility]ha [facility]EL | | | | [...] + | [facility] | [address] | [place] | [phone] | | [facility] | | [address] | | | - LABORATORY | | | | + + + + + | [facility] | [address] | [place] | | | [facility] | | [address] | | | - LABORATORY | | [...] + | [facility] | [address] | [place] | [phone] | | [facility] | | [address] | | | - LABORATORY | | | | + + + + + | [facility] | [address] | [place], [place] | | | [facility] | | [address] | | | - LABORATORY | | [...] + | [facility] | [address] | [place], [place] | [phone] | | [facility] | | [address] | | | - LABORATORY | | | | + + + + + | [facility] | [address] | [place], [place] | | | [facility] | | [address] | | | - LABORATORY | | | | + + + + + Lactate Dehydrogenase (01/08/2011 12:47 PM PDT) + +-------+ + + + | Component | Value | Ref Range | Performed | Pathologist | | | | | At | Signature | + +-------+ + + + | LDH TOTAL | 154 | 91 - 180 IU/L | [facility] | | | | | [...] [address] | [place] | [phone] | | [facility] | | [address] | | | - LABORATORY | | | | + + + + + | [facility] | [address] | [place] | | | [facility] | | [address] | | | - LABORATORY | | | | + + + + + CBC with Differential (01/08/2011 12:47 PM PDT) + + + + + + | Component | Value | Ref Range | Performed | Pathologist | | | | | At | Signature | + + + + + + | WBC | 7.7 | 4.0 - 11.0 K/uL | [facility] | | | | | | [facility] | | | | | | MEDICAL | | | | | | CENTER - | | | | | | LABORATORY | | + + + + + + | RBC | 4.75 | 3.70 - 5.20 | [facility] | | | | | M/uL | [facility] | | | | | | MEDICAL | | | | | | CENTER - | | | | | | LABORATORY | | + + + + + + | Hemoglobin | 12.6 | 11.5 - 16.0 | [facility] | | | | | gm/dL | [facility] | | | | | | MEDICAL | | | | | | CENTER - | | | | | | LABORATORY | | + + + + + + | Hematocrit | 38.5 | 34.0 - 47.0 % | [facility] | | | | | | [facility] | | | | | | MEDICAL | | | | | | CENTER - | | | | | | LABORATORY | | + + + + + + | MCV | 81.1 (L) | 83.0 - 101.0 fL | [facility] | | | | | | [facility] | | | | | | MEDICAL | | | | | | CENTER - | | | | | | LABORATORY | | + + + + + + | MCH | 26.6 (L) | 28.0 - 35.0 pg | [facility] | | | | | | STR[facility] [...] [address] | [place] | [phone] | | [facility] | | [address] | | | - LABORATORY | | | | + + + + + | [facility] | [address] | [place] | | | [facility] | | [address] | | | - LABORATORY | | | | + + + + + documented in this encounter Visit Diagnoses Not on filedocumented in this encounter"
--- OUTSIDE RECORDS SUMMARY | ~2019-03-02 | XMS | Encounter Summary ---
Demographics + + + | Address | [address] | | | [place] [address] | + + + | Home Phone [...] Team Providers + +------+ + | Care Calculus Teacher Name | Role | Phone | [...] [place] | | | | | | [address] | (Fax) | | | | | [phone] | | | +--------+ + + + [...] | | | | | | [place] [address] | | | | | | [phone] | | | | | | | | +--------+---------+ + + + | 06/01/ | Office | Neurology | Elaine Andrews, | | | 2019 | Visit | | [address] | | | | | | [place] [address] | | | | | | [phone] | | | | | | | [...]
--- OUTSIDE RECORDS SUMMARY | ~2019-03-02 | XMS | Encounter Summary ---
Demographics + + + | Address | [address] | | | [place] [address] | + + + | Home Phone [...] Team Providers + +------+ + | Care Multimedia Authoring Specialist Name | Role | Phone | [...] Provider Unknown | | | | | [facility] | | | | | | [address] | (Fax) | | | | | [phone] | | | +--------+ + + + [...] | | | | | | [place] [address] | | | | | | [phone] | | | | | | | | +--------+---------+ + + + | 06/01/ | Office | Neurology | Elaine Andrews, | | | 2019 | Visit | | [address] | | | | | | [place] [address] | | | | | | [phone] | | | | | | | [...]
--- OUTSIDE RECORDS SUMMARY | ~2019-03-02 | XMS | Encounter Summary ---
Demographics + + + | Address | [address] | | | [place] [address] | + + + | Home Phone | | + + + | Preferred Language | Unknown | + + + | Marital Status | | + + + | Nondenominational Affiliation | Unknown | + + + | Race | Unknown | + + + | Ethnic Group | Unknown | + + + Author + + + | Author | [facility] | | | and [place] | + + + | Organization | [facility] | | [...] Team Providers + +------+ + | Care National Flatbed Truck Driver Name | Role | Phone [...] Provider Unknown | | | | | [facility] | | | | | | [address] | (Fax) | | | | | [phone] | | | +--------+ + + + [...] | | | | | | [place] [address] | | | | | | [phone] | | | | | | | | +--------+---------+ + + + | 06/01/ | Office | Neurology | Elaine Andrews, | | | 2019 | Visit | | [address] | | | | | | [place] [address] | | | | | | [phone] | | | | | | | [...]
--- OUTSIDE RECORDS SUMMARY | ~2019-03-02 | XMS | Clinical Summary ---
Demographics + + + | Address | [address] | | | [place] [address] | + + + | Home Phone | | + + + | Preferred Language | Unknown | + + + | Marital Status | Unknown | + + + | Jain Affiliation | Unknown | + + + | Race | Unknown | + + + | Ethnic Group | Unknown | + + + Author + + + | Author | [facility] | + + + | Organization | [facility] | + + + | Address | Unknown | + + + | Phone | Unavailable | + + + Care Team Providers + +------+ + | Care Ammonia Box Tender Name | Role | Phone | + +------+ + PCP | Unavailable | + +------+ + Source Comments [facility]AB is fully live on both [facility] and [facility] Allergies Not on File Medications Not on [...]
--- OUTSIDE RECORDS SUMMARY | ~2019-03-02 | XMS | Encounter Summary ---
Demographics + + + | Address | [address] | | | [place] [address] | + + + | Home Phone [...] Providers + +------+ + | Care Metal Hanger Name | Role | Phone | + [...] | | | | [place] | [phone] | | | | | [address] | | | | | | [phone] | | | +--------+ + + + [...] | | | | | | [place] [id number] | | | | | | [phone] | | | | | | | | +--------+---------+ + + + | 06/01/ | Office | Neurology | Elaine Andrews, | | | 2019 | Visit | | MD Kim STOUT | | | | | | [address] | | | | | | [place] [address] | | | | | | [phone] | | | | | | | | +--------+---------+ + + + documented as of this encounter Visit Diagnoses Not on filedocumented in this encounter"
--- OUTSIDE RECORDS SUMMARY | ~2019-03-02 | XMS | Encounter Summary ---
Demographics + + + | Address | [address] | | | [place] [address] | + + + | Home Phone | | + + + | Preferred Language | Unknown | + + + | Marital Status | | + + + | Methodist Affiliation | Unknown | + + + | Race | Unknown | + + + | Ethnic Group | Unknown | + + + Author + + + | Author | [facility] | | | and [place] | + + + | Organization | [facility] | | [...] Team Providers + +------+ + | Care Instructional Material Director Name | Role | Phone | + +------+ + | Mynor Kam MD | PCP | | + +------+ + Encounter Details +--------+ + + + + | Date | Type | Department | Care Team | Description | +--------+ + + + + | 09/21/ | Orders Only | [facility] | [facility], | | | 2019 | | PULMONOLOGY [address] | [address] Arora, | | | | | [address] | [address] | | | | | [place], [place] | [place] [address] [place], | | | | | [address] | [place] [address] | | | | | [phone] | [phone] | | | | | | | [...] [place], | | | | | | [place] [address] | | | | | | [phone] | | | | | | | | +--------+---------+ + + + | 06/01/ | Office | Neurology | Elaine Andrews, | | | 2019 | Visit | | [address] | | | | | | [address] | | | | | | [place] [address] | | | | | | [phone] | | | | | | | | +--------+---------+ + + + documented as of this encounter Visit Diagnoses Not on filedocumented in this encounter"
--- OUTSIDE RECORDS SUMMARY | ~2019-03-02 | XMS | Encounter Summary ---
Demographics + + + | Address | [address] | | | [place] [address] | + + + | Home Phone | | + + + | Preferred Language | Unknown | + + + | Marital Status | | + + + | Jainism Affiliation | Unknown | + + + | Race | Unknown | + + + | Ethnic Group | Unknown | + + + Author + + + | Author | [facility] | | | and [place] | + + + | Organization | [facility] | | [...] Team Providers + +------+ + | Care Therapist Asst Name | Role | Phone | + [...] Provider Unknown | | | | | [facility] | | | | | | [address] | (Fax) | | | | | [phone] | | | +--------+ + + + [...] | | | | | | [place] [address] | | | | | | [phone] | | | | | | | | +--------+---------+ + + + | 06/01/ | Office | Neurology | Elaine Andrews, | | | 2019 | Visit | | [address] | | | | | | [place] [address] | | | | | | [phone] | | | | | | | [...]
--- OUTSIDE RECORDS SUMMARY | ~2019-03-02 | XMS | Encounter Summary ---
Demographics + + + | Address | [address] | | | [place] [address] | + + + | Home Phone [...] Team Providers + +------+ + | Care Demand Manager Name | Role | Phone | [...] Provider Unknown | | | | | [facility] | | | | | | [address] | (Fax) | | | | | [phone] | | | +--------+ + + + [...] | | | | | | [place] [address] | | | | | | [phone] | | | | | | | | +--------+---------+ + + + | 06/01/ | Office | Neurology | Elaine Andrews, | | | 2019 | Visit | | [address] | | | | | | [place] [address] | | | | | | [phone] | | | | | | | [...]
--- OUTSIDE RECORDS SUMMARY | ~2019-03-02 | XMS | Encounter Summary ---
Demographics + + + | Address | [address] | | | [place] [address] | + + + | Home Phone [...] Team Providers + +------+ + | Care Scenery Builder Name | Role | Phone | + +------+ + PCP | Unavailable | + +------+ + Encounter Details +--------+ + + + + | Date | Type | Department | Care Team | Description | +--------+ + + + + | 06/10/ | Emergency | [facility] | Edis Gudino MD | Cough; | | 2013 | | [facility]ENTER | [address] | Pneumonia | | | | EMERGENCY CENTER | [place] [address] | | | | | [address] | [phone] | | | | | [place], [place] | | | | | | [address] | | | | | | [phone] | | | +--------+ + + + [...] | | | | | | [place] [address] | | | | | | [phone] | | | | | | | | +--------+---------+ + + + | 06/01/ | Office | Neurology | Elaine Andrews, | | | 2019 | Visit | | MD [address] | | | | | | [address] | | | | | | [place] [address] | | | | | | [phone] | | | | | | | [...] NEW | | | Testing performed at [facility], [address], [place] | | | [address] CULTURE | | | STAPHYLOCOCCUS SPECIES, COAGULASE NEGATIVEAbnormal | | | GROWTH IN ONE OF TWO | | | BOTTLESAbnormal | | | TIME TO DETECTION: 26HRS 6MIN | | | POSSIBLE CONTAMINANT, CLINICAL CORRELATION REQUIRED. | | | Testing performed at | | | [facility], [address] [place] [address] REPORT STATUS | | | 06/13/2013 FINAL [...] EXTERNAL | | | | performed at [facility];[address] | | LAB | | | [address];[place] | | | | | | [address] | | | | + + + + + + | RED CELL | 4.44Comment: Testing | 3.70 - 5.10 | EXTERNAL | | | COUNT | performed at [facility];[address] | M/uL | LAB | | | | [address];[place] | | | | | | [address] | | | | + + + + + + | Hgb | 11.9Comment: Testing | 11.3 - 15.5 | EXTERNAL | | | | performed at [facility];888 | g/dL | LAB | | | | [address];[place] | | | | | | [address] | | | | + + + + + + | Hematocrit, | 36.0Comment: Testing | 34.0 - 46.0 % | EXTERNAL | | | POC | performed at [facility];[address] | | LAB | | | | [address];[place] | | | | | | [address] | | | | + + + + + + | MCV | 81.0Comment: Testing | 80.0 - 100.0 fl | EXTERNAL | | | | performed at [facility];[address] | | LAB | | | | [address];[place] | | | | | | [address] | | | | + + + + + + | MCH | 26.9 (L)Comment: Testing | 27.0 - 34.0 pg | EXTERNAL | | | | performed at [facility];[address] | | LAB | | | | [address];[place] | | | | | | [address] | | | | + + + + + + | MCHC | 33.1Comment: Testing | 32.0 - 35.5 | EXTERNAL | | | | performed at [facility];888 | g/dL | LAB | | | | [address];[place] | | | | | | [address] | | | | + + + + + + | RDW-CV | 43.3Comment: Testing | 37 - 53 fl | EXTERNAL | | | | performed at [facility];[address] | | LAB | | | | [address];[place] | | | | | | [address] | | | | + + + + + + | Platelet | 359Comment: Testing | 150 - 400 K/uL | EXTERNAL | | | Count | performed at [facility];[address] | | LAB | | | Plasma | [address];[place] | | | | | | [address] | | | | + + + + + + | MPV | 7.3Comment: Testing | fl | EXTERNAL | | | | performed at [facility];[address] | | LAB | | | | [address];[place] | | | | | | [address] | | | | + + + + + + | Differentia | AUTOMATEDComment: | | EXTERNAL | | | l Type | Testing performed at | | LAB | | | | [facility];[address];[place] [address] | | | | + + + + + + | % Segmented | 46.4Comment: Testing | % | EXTERNAL | | | | performed at [facility];[address] | | LAB | | | Neutrophils | [address];[place] | | | | | | [address] | | | | + + + + + + | % | 39.3Comment: Testing | % | EXTERNAL | | | Lymphocytes | performed at [facility];[address] | | LAB | | | | [address];[place] | | | | | | [address] | | | | + + + + + + | % Monocytes | 8.9Comment: Testing | % | EXTERNAL | | | | performed at [facility];[address] | | LAB | | | | [address];[place] | | | | | | [address] | | | | + + + + + + | % | 4.9Comment: Testing | % | EXTERNAL | | | Eosinophils | performed at [facility];[address] | | LAB | | | | [address];[place] | | | | | | [address] | | | | + + + + + + | % Basophils | 0.5Comment: Testing | % | EXTERNAL | | | | performed at [facility];[address] | | LAB | | | | [address];[place] | | | | | | [address] | | | | + + + + + + | Absolute | 3.5Comment: Testing | 1.9 - 7.4 K/uL | EXTERNAL | | | Segmented | performed at [facility];[address] | | LAB | | | Neutrophils | [address];[place] | | | | | | [address] | | | | + + + + + + | Absolute | 2.9Comment: Testing | 1.0 - 3.9 K/uL | EXTERNAL | | | Lymphocytes | performed at [facility];[address] | | LAB | | | | [address];[place] | | | | | | [address] | | | | + + + + + + | Absolute | 0.7Comment: Testing | 0 - 0.8 K/uL | EXTERNAL | | | Monocytes | performed at [facility];[address] | | LAB | | | | [address];[place] | | | | | | [address] | | | | + + + + + + | Absolute | 0.4Comment: Testing | 0 - 0.5 K/uL | EXTERNAL | | | Eosinophils | performed at [facility];[address] | | LAB | | | | [address];[place] | | | | | | [address] | | | | + + + + + + | Absolute | 0.0Comment: Testing | 0 - 0.1 K/uL | EXTERNAL | | | Basophils | performed at [facility];[address] | | LAB | | | | [address];[place], [place] | | | | | | [address] | | | | + + + [...] EXTERNAL | | | | performed at [facility];888 | mmol/L | LAB | | | | [address];[place] | | | | | | [address] | | | | + + + + + + | K | 3.5Comment: Testing | 3.5 - 4.9 | EXTERNAL | | | | performed at [facility];888 | mmol/L | LAB | | | | [address];[place] | | | | | | [address] | | | | + + + + + + | Cl | 100Comment: Testing | 99 - 109 mmol/L | EXTERNAL | | | | performed at [facility];[address] | | LAB | | | | [address];[place] | | | | | | [address] | | | | + + + + + + | CO2 | 31Comment: Testing | 23 - 32 mmol/L | EXTERNAL | | | | performed at [facility];[address] | | LAB | | | | [address];[place] | | | | | | [address] | | | | + + + + + + | Anion Gap | 9Comment: Testing | 5 - 20 mmol/L | EXTERNAL | | | | performed at [facility];[address] | | LAB | | | | [address];[place] | | | | | | [address] | | | | + + + + + + | Glucose, | 196 (H)Comment: Testing | 65 - 99 mg/dL | EXTERNAL | | | Fasting | performed at [facility];[address] | | LAB | | | | [address];[place] | | | | | | [address] | | | | + + + + + + | BUN | 11Comment: Testing | 8 - 25 mg/dL | EXTERNAL | | | | performed at [facility];[address] | | LAB | | | | [address];[place] | | | | | | [address] | | | | + + + + + + | Creatinine | 0.59Comment: Testing | 0.50 - 1.00 | EXTERNAL | | | | performed at [facility];888 | mg/dL | LAB | | | | [address];[place] | | | | | | [address] | | | | + + + + + + | BUN/Creatin | 19Comment: Testing | | EXTERNAL | | | ine Ratio | performed at [facility];[address] | | LAB | | | | [address];[place] | | | | | | [address] | | | | + + + + + + | Calcium | 8.9Comment: Testing | 8.5 - 10.2 | EXTERNAL | | | | performed at [facility];888 | mg/dL | LAB | | | | [address];[place] | | | | | | [address] | | | | + + + + + + | Protein, | 8.5 (H)Comment: Testing | 6.3 - 8.2 g/dL | EXTERNAL | | | Total | performed at [facility];[address] | | LAB | | | | [address];[place] | | | | | | [address] | | | | + + + + + + | Albumin | 3.2 (L)Comment: Testing | 3.6 - 5.0 g/dL | EXTERNAL | | | | performed at [facility];[address] | | LAB | | | | [address];[place] | | | | | | [address] | | | | + + + + + + | Globulin | 5.4 (H)Comment: Testing | 1.3 - 4.9 g/dL | EXTERNAL | | | | performed at [facility];[address] | | LAB | | | | [address];[place] | | | | | | [address] | | | | + + + + + + | A/G Ratio | 0.6 (L)Comment: Testing | 1.0 - 2.4 | EXTERNAL | | | | performed at [facility];[address] | | LAB | | | | [address];[place] | | | | | | [address] | | | | + + + + + + | Bilirubin | 0.3Comment: Testing | 0.1 - 1.5 mg/dL | EXTERNAL | | | Total | performed at [facility];[address] | | LAB | | | | [address];[place] | | | | | | [address] | | | | + + + + + + | ALP, | 105Comment: Testing | 35 - 115 U/L | EXTERNAL | | | External | performed at [facility];[address] | | LAB | | | | [address];[place] | | | | | | [address] | | | | + + + + + + | AST | 39Comment: Testing | 10 - 45 U/L | EXTERNAL | | | | performed at [facility];[address] | | LAB | | | | [address];[place] | | | | | | [address] | | | | + + + + + + | ALT | 59Comment: Testing | 10 - 65 U/L | EXTERNAL | | | | performed at [facility];[address] | | LAB | | | | [address];[place] | | | | | | [address] | | | | + + + [...] | | | | | | at [facility];[address];[place] [address] | | | | + + + [...] DAYS | | | Testing performed at [facility], [address] | | [place] [address] REPORT STATUS | | | 06/16/2013 FINAL [...]
--- OUTSIDE RECORDS SUMMARY | ~2019-03-02 | XMS | Encounter Summary ---
Demographics + + + | Address | [address] | | | [place] [address] | + + + | Home Phone | | + + + | Preferred Language | Unknown | + + + | Marital Status | | + + + | Church Affiliation | Unknown | + + + [...] Team Providers + +------+ + | Care Char Belt Operator Name | Role | Phone | + +------+ + PCP | Unavailable | + +------+ + Encounter Details +--------+ + + + + | Date | Type | Department | Care Team | Description | +--------+ + + + + | 05/05/ | Hospital | [facility] | Estefania Brannon DO | Acute respiratory | | 2013 - | Encounter | [facility] | [address] | failure (HCC); | | | | INTENSIVE CARE UNIT | [place] [address] | Abnormal LFTs (liver | | 05/14/ | | [address] | [phone] | function tests); | | 2013 | | [place], [place] | | Acute respiratory | | | | [address] | | distress syndrome | | | | [phone] | | (ARDS) ([facility]); | | | | | | Influenza A; Morbid | | | | | | obesity with BMI of | | | | | | 45.0-49.9, adult | | | | | | ([facility]); Poorly | | | | | | controlled diabetes | | | | | | mellitus ([facility]); | | | | | | Secondary [...] Summaries by Al Houston MD at 05/14/13 4291 Author: Al Houston MD Service: (none) Author Type: Cyber Systems Administrator Filed: 05/14/13 0843 Date of Service: 05/14/13 0833 Status: Signed Animal Health Technician: Al Houston MD (Physician) [facility] Service: Cyber Systems Administrator Discharge Summary Gilma Salmon 47 y.o. Date [...] ventilation initiated on May 01, 2013 at [facility]. HOSPITAL COURSE: May 06, 2013: PICC [...] Procedure: TRACHEOSTOMY; Surgeon: Shalonda Novoa MD; Location: [facility] MAIN OR; Service: ENT ; Laterality: N/A; move to OR table, need harmonic scalpel with focus HP, patient [address] Medication List As of 05/14/2013 8:33 AM Condition on Discharge: Stable, to [facility] in [place] Code Status: Full Code [...] Date of Service: 05/14/13 132 Status: Signed Animal Health Technician: Bryanna Keenan RN (Registered Nurse) Transport here [...] 05/14/131043 Date of Service: 05/14/131042 Status: Signed Animal Health Technician: Bryanna Keenan RN (Registered Nurse) Report given to Maggy at [facility] in [facility] onver elaina Transaction, Provider Unknown - 05/14/2013 8:33 AM PST Case Management by MARTHA Kunz at 05/14/13832 Author: MARTHA Kunz Service: (none) Author Type: Asbestos Abatement Technician Filed: 05/14/1334 Date of Service: 05/14/13832 Status: Signed Animal Health Technician: MARTHA Kunz (Asbestos Abatement Technician) Received t/c from [facility] with [employer] insurance. AMbulance Auth # is [id number] for [facility] services. Called [facility] to verify their pharmacy picking technician time (12:30) and also called pt's [facility] to verify that pt is being transferred today. onver elaina Transaction, Provider Unknown - 05/14/2013 8:31 AM PST Case Management by MARTHA Kunz at 05/14/13 08 Author: MARTHA Kunz Service: (none) Author Type: Asbestos Abatement Technician Filed: 05/14/1332 Date of Service: 05/14/13830 Status: Signed Animal Health Technician: MARTHA Kunz (Asbestos Abatement Technician) Disposition: [facility] Transportation:[facility] [phone] All orders, signed AVS, and prescriptions have [...] Al Houston MD Service: (none) Author Type: Cyber Systems Administrator Filed: 05/14/1341 Date of Service: 05/14/13827 Status: Addendum Animal Health Technician: Al Houston MD (Physician) Related Notes: Original Note by Al Houston MD (Physician) filed at 05/14/1333 [facility] Service: Cyber Systems Administrator Progress Note Gilma Salmon 47 y.o. Hospital [...] ventilation initiated on May 01, 2013 at [facility]. ICU TIMELINE:The patient is admitted on [...] Procedure: TRACHEOSTOMY; Surgeon: Shalonda Novoa MD; Location: [facility] MAIN OR; Service: ENT ; Laterality: N/A; [...] original. Progress Notes by Erlinda David MS CCC-PBX SUPERVISOR at 05/13/13 1603 Author: Erlinda David MS CCC-PBX SUPERVISOR Service: (none) Author Type: Speech and Patient Advocate ologist Filed: 05/13/13 1604 Date of Service: 05/13/13 1603 Status: Signed Animal Health Technician: Erlinda David MS CCC-PBX SUPERVISOR (Speech and Language Pathologist) 05/13/13 1500 General Session type Evaluation Family/Caregiver Present Yes Expression Primary Mode of Expression Nonverbal - written;Nonverbal - gestures (mouthing). Currently has trach. Passy-Burdine Valve Passy-Burdine Valve No Written Expression Written Expression Comment Pt able to write to compensate for inability to vocalize at this time d/t trach/vent.Pt also mouthing words and using communication board that was given and gestures. Pt and spouse had no further questions re: communication and both stated that the pt's basic wants/needs are being met at this time. Rec PBX SUPERVISOR f/u at place of d/c. onver elaina Transaction, Provider Unknown - 05/13/2013 3:43 PM PST Case Management by MARTHA Kunz at 05/13/13 1543 Author: MARTHA Kunz Service: (none) Author Type: Asbestos Abatement Technician Filed: 05/13/13 1544 Date of Service: 05/13/131542 Status: Signed Animal Health Technician: MARTHA Kunz (Asbestos Abatement Technician) Received t[facility]c from [facility] with [facility] ([phone]). He is requesting a return call if f or some reason pt is not able to transfer to [facility] tomorrow. His crew plans to wrrive here between 11:30-12:00 if not called. Informed Unit LENS BLOCK GAUGER and Lead RN. Al Gonzalez MD - 05/13/2013 3:43 PM PSTFormatting of this note might be different from the o riginal. Progress Notes by Al Houston MD at 05/13/13 282 Author: Al Houston MD Service: (none) Author Type: Cyber Systems Administrator Filed: 05/13/13 1555 Date of Service: 05/13/131542 Status: Signed Animal Health Technician: Al Houston MD (Physician) [facility] Service: Cyber Systems Administrator Progress Note Gilma Salmon 47 y.o. Hospital [...] ventilation initiated on May 01, 2013 at [facility]. ICU TIMELINE:The patient is admitted on [...] Procedure: TRACHEOSTOMY; Surgeon: Shalonda Novoa MD; Location: [facility] MAIN OR; Service: ENT ; Laterality: N/A; [...] Date of Service: 05/13/13 1518 Status: Signed Animal Health Technician: Juanita Herman RN (Registered Nurse) Report received from HERIBERTO Bartlett and care assumed. Pt resting in bed with no complaints at t his time. JUANITA HERMAN 05/13/2013 3:19 PM onver elaina Transaction, Provider Unknown - 05/13/2013 1:35 PM PST Progress Notes by Edis Ken PT at 05/13/13 7845 Author: Edis Ken PT Service: (none) Author Type: Physical Therapist Filed: 05/13/13 1535 Date of Service: 05/13/13 1335 Status: Signed Animal Health Technician: Edis Ken PT (Physical Therapist) 05/13/13 1335 [...] therapy (Pt. to d/c to LTAC in [place] tomorrow per notes) Equipment Recommended (May need [...] therapy (Pt. to d/c to LTAC in [place] tomorrow per notes) Equipment Recommended (May need use of 4WW initially for UE support) Prior Function Level of [place] Independent with functional mobility;Independent with ADLs;Independe nt [...] Author: MARTHA Kunz Service: (none) Author Type: Asbestos Abatement Technician Filed: 05/13/13 1048 Date of Service: 05/13/13 104 Status: Signed Animal Health Technician: MARTHA Kunz (Asbestos Abatement Technician) Met with pt and family to update. Pt has now made the decision to go to [facility] in [place] where her mother and sister live. Spoke with Sandy Casanova who states that they are working on insurance auth. They are prepared to accept pt tomorrow to the [facility]. RN-RN report # is [phone] x [phone], report # is [phone] (Dr. Alli brown) . Made arrangements with [facility] [phone] to pharmacy picking technician pt at 11:30 tomorrow morning. Transfer work completed and placed on pt chart. onver elaina Transaction, Provider Unknown - 05/13/2013 9:26 AM PST Case Management by MARTHA Kunz at 05/13/13 0985 Author: MARTHA Kunz Service: (none) Author Type: Asbestos Abatement Technician Filed: 05/13/13 1021 Date of Service: 05/13/13925 Status: Addendum Animal Health Technician: MARTHA Kunz (Asbestos Abatement Technician) Related Notes: Original Note by MARTHA Kunz (Asbestos Abatement Technician) filed at 05/13/13 0966 Spoke with pt's insurance manager case Kathleen ([phone]) and Lupe ([phone]) t o discuss LTAC transfer. I also spoke with Dara Mace from [facility] who states abi t beds are opening up. Dara will get back to me juan as to whether the beds will be avail able tomorrow or Friday. Mary has a bed available ([place]) today/tomorrow. Wa iting to hear back about from insurance as to whether they will agree to letting pt stay in [facility] until Friday if bed is not available at [facility] until Friday. Called [facility] to notify that there may be a transport Friday/Friday. Informed family of current issues r egarding bed availability and insurance auth. Received t/c from Gregor Mccain at [facility] (ph: [phone], fax:[phone]) indicating th at they have a bed available at their [facility] He is aware that the [facility] c hoice is [facility] due to proximity. o, Monroe Mora MD - 05/12/2013 6:57 PM PSTFormatting of this note might be different from the origi nal. Progress Notes by Shalonda Novoa MD at 05/12/131856 Author: Shalonda Novoa MD Service: (none) Author Type: Physician Filed: 05/12/131913 Date of Service: 05/12/131856 Status: Signed Animal Health Technician: Shalonda Novoa MD (Physician) [facility] Service: Otolaryngology Progress Note Hospital Day: LOS: 7 days Post-Op Day: 1 Day Post-Op SUBJECTIVE The patient is a 47 y.o. female with morbid obesity who was transferred to [facility] on Apr with the diagnosis of ARDS with influenza A, on Tamiflu. She also has a histor y of poorly controlled diabetes type 2, asthma and bronchitis with prior DVT. The patient wa s admitted on May 05, 2013. Mechanical ventilation initiated on May 01, 2013 at [facility]. A-line placed right radial artery [...] sulfate, nystatin, ny statin, ondansetron, ondansetron, pancrelipase (Elw-Ogqn-Ipio) 10,000 units, petrolatum, jerri sphorus, potassium chloride, [...] 05/12/131756 Date of Service: 05/12/131749 Status: Signed Animal Health Technician: Esperanza Gutierrez MD (Physician) [facility] Service: Cyber Systems Administrator Progress Note Gilma Salmon 47 y.o. Hospital [...] ventilation initiated on May 01, 2013 at [facility]. ICU TIMELINE:The patient is admitted on [...] above. Family has met with [facility] repr esentative and plan to go to that facility once patient is stable for discharge. Code Status: Full Code *Please bill 45 minutes of critical care time spent evaluating the patient, reviewing the d trish and formulating a plan exclusive of all other procedures. Esperanza Gutierrez MD 05/12/2013 5:50 PM ay, Ash Huynh MS CCC-PBX SUPERVISOR - 05/12/2013 4:29 PM PSTFormatting of this note might be different from [facility] original. Progress Notes by Ysabel Lucero MS CCC-PBX SUPERVISOR at 05/12/13 9121 Author: Ysabel Lucero MS CCC-PBX SUPERVISOR Service: (none) Author Type: Speech and Language Pathol ogist Filed: 05/12/13 1634 Date of Service: 05/12/13 1629 Status: Signed Animal Health Technician: Ysabel Lucero MS CCC-PBX SUPERVISOR (Speech and Language Pathologist) 05/12/13 1623 PBX SUPERVISOR Last Visit PBX SUPERVISOR Received On 05/12/13 Requires PBX SUPERVISOR Follow Up On hold (PBX SUPERVISOR to complete eval in am) Pt and family given communication board so pt is able to indicate what she needs/wants. Pt indicated she is too sick and didn't want to participate in an eval today. RN reports pt ceja s been throwing up through trach, PBX SUPERVISOR to con't to follow for possible pmv placement when pt is appropriate. YSABEL LUCERO, MS CCC-PBX SUPERVISOR 05/12/2013 onversion Saldana saction, Provider Unknown - 05/12/2013 2:35 PM PSTFormatting of this note might be differen t from the original. Progress Notes by Deshawn Hernandez at 05/12/13 1435 Author: Deshawn Hernandez Service: (none) Author Type: Filed: 05/12/13 1436 Date of Service: 05/12/13 1435 Status: Signed Animal Health Technician: Deshawn Hernandez () Participated in interdisciplinary rounds with Dr. Gutierrez, superintendent mechanical. Pt is scheduled fo r transfer to LTAC. GENERAL MATCHER sorting out location with family. Family is supported by their [facility] community. Deshawn Hernandez [facility] onver elaina Transaction, Provider Unknown - 05/12/2013 1:10 PM PST Progress Notes by Joselyn Knutson RN at 05/12/13 1310 Author: Joselyn Knutson RN Service: Wound/Ostomy Care Author Type: Registered Nurse Filed: 05/12/13 1312 Date of Service: 05/12/13 1310 Status: Signed Animal Health Technician: Joselyn Knutson RN (Registered Nurse) Patient seen today by granulator for evaluation due to a low Huang [...] Author: MARTHA Kunz Service: (none) Author Type: Asbestos Abatement Technician Filed: 05/12/13 1014 Date of Service: 05/12/13 1008 Status: Signed Animal Health Technician: MARTHA Kunz (Asbestos Abatement Technician) Received t/c from dara Mace, [facility] liason who states that they do not have an y beds until the end of the week. Met with patient and family to discuss other options. They do not want pt to go to [facility] or [place]. They are agreeable to me making referrals to [facility] and [facility] as a back up plan if [facility] has no beds by Friday. Faxed clini christi to [facility] (fax: [phone], ph: [phone]) and [facility] (fax: [phone], ph: ). Await return calls regarding bed availability and whether they are a contracted facility with insurance. ctavio delaney Transaction, Provider Unknown - 05/11/2013 3:41 PM PST Case Management by MARTHA Kunz at 05/11/13 1541 Author: MARTHA Kunz Service: (none) Author Type: Asbestos Abatement Technician Filed: 05/11/13 1544 Date of Service: 05/11/13 1541 Status: Signed Animal Health Technician: MARTHA Kunz (Asbestos Abatement Technician) Provided gas voucher to pt's daughter who is returning to [place] tomorrow and coming figueroa k on . Family informed me this morning that they do not want the pt to go to [facility] after all. They have chosen [facility] as their first choice and [facility] as their second ch oice. At this time [facility] has no beds but may on . Pt is to be trached today and pe gged tomorrow. REferral made to cecily Jarquin for [facility] ([phone]) who will have insurance check into whether they are contracted or not. I notified Tarsha Washington from [facility] that the family has chosen a different facility. Will complete transfer paperwork once I kno w if [facility] has a bed available. Notified [facility] of possible transfer on . Salome Simms ARNP - 05/11/2013 12:12 PM PSTFormatting of this note might be different f rom the original. Progress Notes by NICANOR Martines at 05/11/13 1212 Author: NICANOR Martines Service: Cyber Systems Administrator Author Type: Cyber Systems Administrator Filed: 05/11/13 1528 Date of Service: 05/11/13 1212 Status: Signed Animal Health Technician: NICANOR Martines (Nurse Practitioner) [facility] Service: Cyber Systems Administrator Progress Note Gilma Salmon 47 y.o. Hospital [...] ventilation initiated on May 01, 2013 at [facility]. ICU TIMELINE:The patient is admitted on [...] above. Family has met with [facility] repr esentative and plan to go [...] Case Management by MARTHA Kunz at 05/10/13 3219 Author: MARTHA Kunz Service: (none) Author Type: Asbestos Abatement Technician Filed: 05/10/13 1445 Date of Service: 05/10/131436 Status: Signed Animal Health Technician: MARTHA Kunz (Asbestos Abatement Technician) Attended morning rounds. Pt will likely be trached/pegged in the next 1-2 days. Met with p t's daughter to discuss LTAC options. They say that their father is still very sick at home with the flu and has asked them to assist with decision-making. LTAC options given. Daughter s are interested in [facility] [place] as first choice and [place] [facility] as second cho ice. I faxed clinical to [facility] ((fax [phone]) and spoke with the liasonTarsha ([phone]) who will plan to meet with pt's daughters tomorrow at 11:00. Salome Simms ARNP - 05/10/2013 7:25 AM PSTFormatting of this note might be different f rom the original. Progress Notes by NICANOR Martines at 05/10/13 07 Author: NICANOR Martines Service: Cyber Systems Administrator Author Type: Cyber Systems Administrator Filed: 05/10/1312 Date of Service: 05/10/13724 Status: Signed Animal Health Technician: NICANOR Martines (Nurse Practitioner) [facility] Service: Cyber Systems Administrator Progress Note Gilma Salmon 47 y.o. Hospital [...] ventilation initiated on May 01, 2013 at [facility]. ICU TIMELINE:The patient is admitted on May 05, 2013. May 06, 2013: PICC andright radial A-line placed. May 10, 2013: Dr. oNvoa ENT consulted for tracheostomy. Droplet isolation removed. [...] chloride 0.9 % 10 mL Intravenous Q12H [facility] Continuous Infusions fentaNYL in NS 5 mcg/mL [...] will call Dr. novoa today who is health information systems technician from ENT the office is not [...] at 05/09/131810 Author: Esperanza Gutierrez MD Service: Cyber Systems Administrator Author Type: Physician Filed: 05/09/13 182 Date of Service: 05/09/131810 Status: Signed Animal Health Technician: Esperanza Gutierrez MD (Physician) [facility] Service: Cyber Systems Administrator Progress Note Gilma Salmon 47 y.o. Hospital [...] init iated on May 01, 2013 at [facility]. A-line placed right radial artery J [...] chloride 0.9 % 10 mL Intravenous Q12H [facility] Continuous Infusions fentaNYL in NS 5 mcg/mL [...] at 05/08/132213 Author: Han Guerrero DMD Service: Cyber Systems Administrator Author Type: Physician Filed: 05/08/132220 Date of Service: 05/08/132213 Status: Addendum Animal Health Technician: Han Guerrero DMD (Dentist) Related Notes: Original Note by Han Guerrero DMD (Dentist) filed at 05/08/132215 [facility] Service: Cyber Systems Administrator PM note Gilma Salmon 47 y.o. Evaluated [...] Service: (none) Author Type: Physician Filed: 05/08/13 1504 Date of Service: 05/08/13 1444 Status: Signed Animal Health Technician: Esperanza Gutierrez MD (Physician) [facility] Service: Cyber Systems Administrator Progress Note Gilma Salmon 47 y.o. Hospital [...] init iated on May 01, 2013 at [facility]. A-line placed right radial artery J [...] Author: MARTHA Kunz Service: (none) Author Type: Asbestos Abatement Technician Filed: 05/07/13 1349 Date of Service: 05/07/13 1333 Status: Signed Animal Health Technician: MARTHA Kunz (Asbestos Abatement Technician) 05/07/13 1331 Discharge Planning Evaluation Living Arrangements Spouse/significant other Support Systems Spouse/significant other;Children Type of Residence Private residence House type House-[facility] No Prior functional status Independent prior to admit. Was employed for [employer] in [place]. Met with: pt's 2 daughters Ashlyn and Juli and discussed discharge planning, Pt is a 47 y.o., female admitted with the flu and bilater al pneumonia. Pt is vented. Non smoker; has asthma. and lives with her Amado (22 years) in [place]. 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 He is sick with the flu as well so is no t coming in to visit the patient. Pt has a step-daughter in [place] and a son in [place]. 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 I a sked if they had a episcopal that would support them. They are [facility] so I called chaplain Riuz who got the girls connected with a local [place] from the [facility] episcopal and hopefully can assist wi th some housing. I offered gas vouchers if they need to transport back and forth from [facility]. CM to follow to provide support and [...] Date of Service: 05/07/13 1221 Status: Signed Animal Health Technician: Joseph Steward () received call back from [facility] leader Luis Blunt, who then came promptly to ass ist dtrs with their needs. Chaplain Joseph CASIANO Al Gonzalez MD - 05/07/2013 11:43 AM PSTFormatting of this note might be different from the o riginal. Progress Notes by Al Houston MD at 05/07/13 1143 Author: Al Houston MD Service: (none) Author Type: Cyber Systems Administrator Filed: 05/07/13 1223 Date of Service: 05/07/13 114 Status: Signed Animal Health Technician: Al Houston MD (Physician) [facility] Service: Cyber Systems Administrator Progress Note Gilma Salmon 47 y.o. Hospital [...] initi ated on May 01, 2013 at [facility]. A-line placed right radial artery Ja [facility] 2013. Events Overnight: Trying to wean peep [...] Author: Joseph Steward Service: (none) Author Type: Staff Mine Warfare Officer Filed: 05/07/13 1037 Date of Service: 05/07/13 1035 Status: Signed Animal Health Technician: Joseph Steward () Family referral for help in contacting local [facility] leadership for housing assistance for pt's 2 dtrs who are from [place]. Called/msg for local [facility] leader. Awaiting call back. Chaplain Joseph Steward BCC onver elaina Transaction, Provider Unknown - 05/06/2013 5:52 AM PST Progress Notes by Han Guerrero DMD at 05/06/13 0552 Author: Han Guerrero DMD Service: Cyber Systems Administrator Author Type: Physician Filed: 05/07/13 0448 Date of Service: 05/06/13 0552 Status: Signed Animal Health Technician: Han Guerrero DMD (Dentist) Related Notes: Original Note by Han Guerrero DMD (Dentist) filed at 05/06/13 0610 [facility] Service: Cyber Systems Administrator Progress Note Gilma Salmon 47 y.o. Hospital [...] initi ated on May 01, 2013 at [facility]. A-line placed right radial artery Ja [facility] 2013. Events Overnight: The patient had a [...] sulfate, nystatin, nystatin, ondan setron, ondansetron, pancrelipase (Izq-Kxxt-Lvbd) 10,000 units, petrolatum, phosphorus, pota ssium chloride, [...] 05/05/132249 Date of Service: 05/05/132244 Status: Signed Animal Health Technician: Han Guerrero DMD (Dentist) [facility] Service: Cyber Systems Administrator PM note Gilma Salmon 47 y.o. Evaluated [...] 1415 Date of Service: 05/05/131414 Status: Signed Animal Health Technician: Jenniffer Hidalgo RPH (Pharmacist) Initiation of Vancomycin Pharmacy Dosing Gilma Salmon 47 y.o. female 1.676 m (5' 6") 138.9 kg (306 lb 3.5 oz) Body mass index is 49.45 kg/(m^2). [place] Body Weight: 59.3 kg Adjusted Body Weight: 91.1 kg CREATININE Date Value Range Status 05/05/2013 0.81 0.50 - 1.00 mg/dL Final Testing performed at [facility] [place] [address];[place] [address] Estimated CrCl : CREATININE: 0.81 (05/05/13 1320) Estimated creatinine clearance - Cockcroft-Gault CrCl: 122.2 mL/min Indications: Community acquired pneumonia Dose per Protocol: Loading Dose: Vancomycin 2250 mg (17mg/kg TBW) IV Q12H Used SCr 0.52 in chart from 014 [facility] First Dose to be Given: 1500 05-05-2013 Vancomycin Trough Due: 05-07-2013 1400 Goal Trough for Vancomycin: 15-20 mcg/mL Pharmacist: JENNIFFER HIDALGO 05/05/2013 2:13 PM onver elaina Mercado, Provider Unknown - 05/05/2013 12:53 PM PST Progress Notes by Jenniffer Hidalgo RPH at 05/05/13 1252 Author: Jenniffer Hidalgo RPH Service: (none) Author Type: Pharmacist Filed: 05/05/13 5966 Date of Service: 05/05/13 Status: Signed Animal Health Technician: Jenniffer Hidalgo RPH (Pharmacist) Renal Dosing Monitoring: [...] | | | | | | [place] [address] | | | | | | [phone] | | | | | | | | +--------+---------+ + + + | 06/01/ | Office | Neurology | Elaine Andrews, | | | 2019 | Visit | | [address] | | | | | | [place] [address] | | | | | | [phone] | | | | | | | [...] | | | Fingerstick | performed at [facility] | | LAB | | | | [place] | | | | | | [address] | | | | + + + [...] [place] | | | | | | [address] | | | | + + + + + + | HEP B | NON REACTIVEComment: | | EXTERNAL | | | SURFACE | Testing performed at | | LAB | | | ANTIBODY | [facility], [address] | | | | | | [place] | | | | | | [address] | | | | + + + + + + | Hepatitis B | NON REACTIVEComment: | | EXTERNAL | | | Core Ab | Testing performed at | | LAB | | | Total | [facility], [address] | | | | | | [place] | | | | | | [address] | | | | + + + [...] | | | | | accordance with [facility] | | | | | | Guidelines.Testing | | | | | | performed at [facility], [facility] | | | | | | [facility] [place], | | | | | | [place] [address] | | | | + + + + + + | HCV Ab | NON REACTIVEComment: | | EXTERNAL | | | | Testing performed at | | LAB | | | | [facility], [address] [place] [address] | | | | | | [place] | | | | | | [address] | | | | + + + [...] at | | | | | | [facility], [facility] | | | | | | [place] | | | | | | [address] | | | | + + + [...] | | | Fingerstick | performed at [facility];[address] | | LAB | | | | [address];[place], [place] | | | | | | [address] | | | | + + + [...] | | | Fingerstick | performed at [facility];8 | | LAB | | | | [address];[place] | | | | | | [address] | | | | + + + [...] | | | Fingerstick | performed at [facility];[address] | | LAB | | | | [place] | | | | | | [address] | | | | + + + [...] | | | performed at [facility];888 | mmol/L | LAB | | | | [place] [address];[place] | | | | | | [address] | | | | + + + [...] | | | Fingerstick | performed at [facility];[address] | | LAB | | | | [address];[place], [place] | | | | | | [address] | | | | + + + [...] | | | performed at [facility];[address] | | LAB | | | | [address];[place] | | | | | | [address] | | | | + + + + + + | RED CELL | 3.77Comment: Testing | 3.70 - 5.10 | EXTERNAL | | | COUNT | performed at [facility];[address] | M/uL | LAB | | | | [address];[place] | | | | | | [address] | | | | + + + + + + | Hgb | 10.4 (L)Comment: Testing | 11.3 - 15.5 | EXTERNAL | | | | performed at [facility];[address] | g/dL | LAB | | | | [address];[place] | | | | | | [address] | | | | + + + + + + | Hematocrit, | 30.3 (L)Comment: Testing | 34.0 - 46.0 % | EXTERNAL | | | POC | performed at [facility];[address] | | LAB | | | | [address];[place] | | | | | | [address] | | | | + + + + + + | MCV | 80.4Comment: Testing | 80.0 - 100.0 fl | EXTERNAL | | | | performed at [facility];[address] | | LAB | | | | [address];[place] | | | | | | [address] | | | | + + + + + + | MCH | 27.6Comment: Testing | 27.0 - 34.0 pg | EXTERNAL | | | | performed at [facility];[address] | | LAB | | | | [address];[place] | | | | | | [address] | | | | + + + + + + | MCHC | 34.3Comment: Testing | 32.0 - 35.5 | EXTERNAL | | | | performed at [facility];[address] | g/dL | LAB | | | | [address];[place] | | | | | | [address] | | | | + + + + + + | RDW-CV | 40.3Comment: Testing | 37 - 53 fl | EXTERNAL | | | | performed at [facility];[address] | | LAB | | | | [address];[place] | | | | | | [address] | | | | + + + + + + | Platelet | 544 (H)Comment: Testing | 150 - 400 K/uL | EXTERNAL | | | Count | performed at [facility];[address] | | LAB | | | Plasma | [address];[place] | | | | | | [address] | | | | + + + + + + | MPV | 6.6Comment: Testing | fl | EXTERNAL | | | | performed at [facility];[address] | | LAB | | | | [address];[place] | | | | | | [address] | | | | + + + + + + | Differentia | AUTOMATEDComment: | | EXTERNAL | | | l Type | Testing performed at | | LAB | | | | [facility];[address];[place] [address] | | | | + + + [...] | | | performed at [facility] | | LAB | | | | [place] [address];[place] | | | | | | [address] | | | | + + + [...] | | | performed at [facility];[address] | mmol/L | LAB | | | | [address];[place] | | | | | | [address] | | | | + + + + + + | K | 3.5Comment: Testing | 3.5 - 4.9 | EXTERNAL | | | | performed at [facility];[address] | mmol/L | LAB | | | | [address];[place] | | | | | | [address] | | | | + + + + + + | Cl | 102Comment: Testing | 99 - 109 mmol/L | EXTERNAL | | | | performed at [facility];[address] | | LAB | | | | [address];[place] | | | | | | [address] | | | | + + + + + + | CO2 | 29Comment: Testing | 23 - 32 mmol/L | EXTERNAL | | | | performed at [facility];[address] | | LAB | | | | [address];[place] | | | | | | [address] | | | | + + + + + + | Anion Gap | 10Comment: Testing | 5 - 20 mmol/L | EXTERNAL | | | | performed at [facility];[address] | | LAB | | | | [address];[place] | | | | | | [address] | | | | + + + + + + | Glucose, | 106 (H)Comment: Testing | 65 - 99 mg/dL | EXTERNAL | | | Fasting | performed at [facility];[address] | | LAB | | | | [address];[place] | | | | | | [address] | | | | + + + + + + | BUN | 16Comment: Testing | 8 - 25 mg/dL | EXTERNAL | | | | performed at [facility];[address] | | LAB | | | | [address];[place] | | | | | | [address] | | | | + + + + + + | Creatinine | 0.55Comment: Testing | 0.50 - 1.00 | EXTERNAL | | | | performed at [facility];[address] | mg/dL | LAB | | | | [address];[place] | | | | | | [address] | | | | + + + + + + | BUN/Creatin | 30Comment: Testing | | EXTERNAL | | | ine Ratio | performed at [facility];[address] | | LAB | | | | [address];[place] | | | | | | [address] | | | | + + + + + + | Calcium | 8.5Comment: Testing | 8.5 - 10.2 | EXTERNAL | | | | performed at [facility];[address] | mg/dL | LAB | | | | [address];[place] | | | | | | [address] | | | | + + + + + + | Protein, | 7.5Comment: Testing | 6.3 - 8.2 g/dL | EXTERNAL | | | Total | performed at [facility];[address] | | LAB | | | | [address];[place] | | | | | | [address] | | | | + + + + + + | Albumin | 2.2 (L)Comment: Testing | 3.6 - 5.0 g/dL | EXTERNAL | | | | performed at [facility];[address] | | LAB | | | | [address];[place] | | | | | | [address] | | | | + + + + + + | Globulin | 5.3 (H)Comment: Testing | 1.3 - 4.9 g/dL | EXTERNAL | | | | performed at [facility];[address] | | LAB | | | | [address];[place] | | | | | | [address] | | | | + + + + + + | A/G Ratio | 0.4 (L)Comment: Testing | 1.0 - 2.4 | EXTERNAL | | | | performed at [facility];[address] | | LAB | | | | [address];[place] | | | | | | [address] | | | | + + + + + + | Bilirubin | 0.5Comment: Testing | 0.1 - 1.5 mg/dL | EXTERNAL | | | Total | performed at [facility];[address] | | LAB | | | | [address];[place] | | | | | | [address] | | | | + + + + + + | ALP, | 118 (H)Comment: Testing | 35 - 115 U/L | EXTERNAL | | | External | performed at [facility];[address] | | LAB | | | | [address];[place] | | | | | | [address] | | | | + + + + + + | AST | 69 (H)Comment: Testing | 10 - 45 U/L | EXTERNAL | | | | performed at [facility];[address] | | LAB | | | | [address];[place] | | | | | | [address] | | | | + + + + + + | ALT | 81 (H)Comment: Testing | 10 - 65 U/L | EXTERNAL | | | | performed at [facility];[address] | | LAB | | | | [facility];[place], [place] | | | | | | [address] | | | | + + + [...] | | | | at [facility];[address];[place] [address] | | | | + + + [...] | | | Fingerstick | performed at [facility] | | LAB | | | | [place] [address];[place] | | | | | | [address] | | | | + + + [...] | | | Fingerstick | performed at [facility];[address] | | LAB | | | | [address];[place], [place] | | | | | | [address] | | | | + + + [...] | | | performed at [facility];[address] | mmol/L | LAB | | | | [place] [address];[place] | | | | | | [address] | | | | + + + + + + | K | 4.0Comment: Testing | 3.5 - 4.9 | EXTERNAL | | | | performed at [facility];[address] | mmol/L | LAB | | | | [address];[place] | | | | | | [address] | | | | + + + + + + | Cl | 100Comment: Testing | 99 - 109 mmol/L | EXTERNAL | | | | performed at [facility];[address] | | LAB | | | | [address];[place] | | | | | | [address] | | | | + + + + + + | CO2 | 31Comment: Testing | 23 - 32 mmol/L | EXTERNAL | | | | performed at [facility];[address] | | LAB | | | | [address];[place] | | | | | | [address] | | | | + + + + + + | Anion Gap | 9Comment: Testing | 5 - 20 mmol/L | EXTERNAL | | | | performed at [facility];[address] | | LAB | | | | [address];[place] | | | | | | [address] | | | | + + + + + + | Glucose, | 179 (H)Comment: Testing | 65 - 99 mg/dL | EXTERNAL | | | Fasting | performed at [facility];[address] | | LAB | | | | [address];[place] | | | | | | [address] | | | | + + + + + + | BUN | 20Comment: Testing | 8 - 25 mg/dL | EXTERNAL | | | | performed at [facility];[address] | | LAB | | | | [address];[place] | | | | | | [address] | | | | + + + + + + | Creatinine | 0.67Comment: Testing | 0.50 - 1.00 | EXTERNAL | | | | performed at [facility];[address] | mg/dL | LAB | | | | [address];[place] | | | | | | [address] | | | | + + + + + + | BUN/Creatin | 29Comment: Testing | | EXTERNAL | | | ine Ratio | performed at [facility];[address] | | LAB | | | | [address];[place] | | | | | | [address] | | | | + + + + + + | Calcium | 8.8Comment: Testing | 8.5 - 10.2 | EXTERNAL | | | | performed at [facility];[address] | mg/dL | LAB | | | | [place] | | | | | | [address] | | | | + + + [...] | | | | at [facility];[address];[place] [address] | | | | + + + [...] | | | Fingerstick | performed at [facility];[address] | | LAB | | | | [address];[place] | | | | | | [address] | | | | + + + [...] | | | Fingerstick | performed at [facility];[address] | | LAB | | | | [place] | | | | | | [address] | | | | + + + [...] | | LAB | | | | [address] [employer], | | | | | | [place] [address] | | | | + + + + + + | RED CELL | 3.90Comment: Testing | 3.70 - 5.10 | EXTERNAL | | | COUNT | performed at [facility], [address] | M/uL | LAB | | | | [address], | | | | | | [place] [address] | | | | + + + + + + | Hgb | 10.4 (L)Comment: Testing | 11.3 - 15.5 | EXTERNAL | | | | performed at [facility], [address] | g/dL | LAB | | | | [address], | | | | | | [place] [address] | | | | + + + + + + | Hematocrit, | 31.8 (L)Comment: Testing | 34.0 - 46.0 % | EXTERNAL | | | POC | performed at [facility], [address] | | LAB | | | | [address] [place], | | | | | | [place] [address] | | | | + + + + + + | MCV | 81.6Comment: Testing | 80.0 - 100.0 fl | EXTERNAL | | | | performed at [facility], [address] | | LAB | | | | [address], | | | | | | [place] [address] | | | | + + + + + + | MCH | 26.7 (L)Comment: Testing | 27.0 - 34.0 pg | EXTERNAL | | | | performed at [facility], [address] | | LAB | | | | [address], | | | | | | [place] [address] | | | | + + + + + + | MCHC | 32.7Comment: Testing | 32.0 - 35.5 | EXTERNAL | | | | performed at [facility], [address] | g/dL | LAB | | | | [address], | | | | | | [place] [address] | | | | + + + + + + | RDW-CV | 39.8Comment: Testing | 37 - 53 fl | EXTERNAL | | | | performed at [facility], [address] | | LAB | | | | [address], | | | | | | [place] [address] | | | | + + + + + + | Platelet | 469 (H)Comment: Testing | 150 - 400 K/uL | EXTERNAL | | | Count | performed at [facility], [address] | | LAB | | | Plasma | [address], | | | | | | [place] [address] | | | | + + + + + + | MPV | 7.1Comment: Testing | fl | EXTERNAL | | | | performed at [facility], [address] | | LAB | | | | [address] [place], | | | | | | [place] [address] | | | | + + + + + + | Differentia | AUTOMATEDComment: | | EXTERNAL | | | l Type | Testing performed at | | LAB | | | | [facility], [address] | | | | | | [place], [place] | | | | | | [address] | | | | + + + [...] EXTERNAL | | | | performed at [facility], [address] | | LAB | | | | [place], | | | | | | [place] [address] | | | | + + + [...] | | | | | [place] [address] | | | | + + + + + + | K | 3.7Comment: Testing | 3.5 - 4.9 | EXTERNAL | | | | performed at [facility], [address] | mmol/L | LAB | | | | [place], | | | | | | [place] [address] | | | | + + + + + + | Cl | 102Comment: Testing | 99 - 109 mmol/L | EXTERNAL | | | | performed at [facility], [address] | | LAB | | | | [address], | | | | | | [place] [address] | | | | + + + + + + | CO2 | 29Comment: Testing | 23 - 32 mmol/L | EXTERNAL | | | | performed at [facility], [address] | | LAB | | | | [address], | | | | | | [place] [address] | | | | + + + + + + | Anion Gap | 9Comment: Testing | 5 - 20 mmol/L | EXTERNAL | | | | performed at [facility], [address] | | LAB | | | | [address], | | | | | | [place] [address] | | | | + + + + + + | Glucose, | 147 (H)Comment: Testing | 65 - 99 mg/dL | EXTERNAL | | | Fasting | performed at [facility], [address] | | LAB | | | | [address], | | | | | | [place] [address] | | | | + + + + + + | BUN | 18Comment: Testing | 8 - 25 mg/dL | EXTERNAL | | | | performed at [facility], [address] | | LAB | | | | [place], | | | | | | [place] [address] | | | | + + + + + + | Creatinine | 0.45 (L)Comment: Testing | 0.50 - 1.00 | EXTERNAL | | | | performed at [facility], [address] | mg/dL | LAB | | | | [address], | | | | | | [place] [address] | | | | + + + + + + | BUN/Creatin | 40Comment: Testing | | EXTERNAL | | | ine Ratio | performed at [facility], [address] | | LAB | | | | [address], | | | | | | [place] [address] | | | | + + + + + + | Calcium | 8.9Comment: Testing | 8.5 - 10.2 | EXTERNAL | | | | performed at [facility], [address] | mg/dL | LAB | | | | [place], | | | | | | [place] [address] | | | | + + + + + + | Protein, | 7.1Comment: Testing | 6.3 - 8.2 g/dL | EXTERNAL | | | Total | performed at [facility], [address] | | LAB | | | | [place], | | | | | | [place] [address] | | | | + + + + + + | Albumin | 2.8 (L)Comment: Testing | 3.6 - 5.0 g/dL | EXTERNAL | | | | performed at [facility], [address] | | LAB | | | | [place], | | | | | | [place] [address] | | | | + + + + + + | Globulin | 4.3Comment: Testing | 1.3 - 4.9 g/dL | EXTERNAL | | | | performed at [facility], [address] | | LAB | | | [address], | | | | | | [place] [address] | | | | + + + + + + | A/G Ratio | 0.7 (L)Comment: Testing | 1.0 - 2.4 | EXTERNAL | | | | performed at [facility], [address] | | LAB | | | | [address], | | | | | | [place] [address] | | | | + + + + + + | Bilirubin | 0.5Comment: Testing | 0.1 - 1.5 mg/dL | EXTERNAL | | | Total | performed at [facility], [address] | | LAB | | | | [address], | | | | | | [place] [address] | | | | + + + + + + | ALP, | 94Comment: Testing | 35 - 115 U/L | EXTERNAL | | | External | performed at [facility], [address] | | LAB | | | | [place], | | | | | | [place] [address] | | | | + + + + + + | AST | 62 (H)Comment: Testing | 10 - 45 U/L | EXTERNAL | | | | performed at [facility], [address] | | LAB | | | | [address], | | | | | | [place] [address] | | | | + + + + + + | ALT | 70 (H)Comment: Testing | 10 - 65 U/L | EXTERNAL | | | | performed at [facility], [address] | | LAB | | | | [address], | | | | | | [place] [address] | | | | + + + [...] [place], | | | | | | [place] [address] | | | | + + + [...] | | | Fingerstick | performed at [facility];[address] | | LAB | | | | [address];[place] | | | | | | [address] | | | | + + + [...] | | | performed at [facility];[address] | mmol/L | LAB | | | | [address];[place], [place] | | | | | | [address] | | | | + + + [...] | | | performed at [facility];[address] | | LAB | | | | [address];[place], [place] | | | | | | [address] | | | | + + + [...] | | | performed at [facility];[address] | | LAB | | | | [address];[place], [place] | | | | | | [address] | | | | + + + [...] | | | Fingerstick | performed at [facility];[address] | | LAB | | | | [address];[place] | | | | | | [address] | | | | + + + [...] | | | Fingerstick | performed at [facility];[address] | | LAB | | | | [place] [address];[place] | | | | | | [address] | | | | + + + [...] | | | Fingerstick | performed at [facility];[address] | | LAB | | | | [address];[place] | | | | | | [address] | | | | + + + [...] Performed At | + + + | GILAM Autumn LIMAS XR CHEST 1 VIEW 05/11/2013 [...] | | | (Calc) | performed at [facility];[address] | mmol/L | LAB | | | | [address];[place] | | | | | | [address] | | | | + + + + + + | pH, Bld | 7.463 (H)Comment: | 7.300 - 7.450 | EXTERNAL | | | | Testing performed at | | LAB | | | | [facility];[address] | [address];[place] [address] | | | | + + + [...] | | | | | performed at [facility] | | | | | | [facility];[place], [place] | | | | | | [address] | | | | + + + [...] | | | performed at [facility];[address] | | LAB | | | | [address];[place] | | | | | | [address] | | | | + + + + + + | RED CELL | 3.85Comment: Testing | 3.70 - 5.10 | EXTERNAL | | | COUNT | performed at [facility];[address] | M/uL | LAB | | | | [address];[place] | | | | | | [address] | | | | + + + + + + | Hgb | 10.6 (L)Comment: Testing | 11.3 - 15.5 | EXTERNAL | | | | performed at [facility];[address] | g/dL | LAB | | | | [address];[place] | | | | | | [address] | | | | + + + + + + | Hematocrit, | 31.0 (L)Comment: Testing | 34.0 - 46.0 % | EXTERNAL | | | POC | performed at [facility];[address] | | LAB | | | | [address];[place] | | | | | | [address] | | | | + + + + + + | MCV | 80.5Comment: Testing | 80.0 - 100.0 fl | EXTERNAL | | | | performed at [facility];[address] | | LAB | | | | [address];[place] | | | | | | [address] | | | | + + + + + + | MCH | 27.5Comment: Testing | 27.0 - 34.0 pg | EXTERNAL | | | | performed at [facility];[address] | | LAB | | | | [address];[place] | | | | | | [address] | | | | + + + + + + | MCHC | 34.1Comment: Testing | 32.0 - 35.5 | EXTERNAL | | | | performed at [facility];[address] | g/dL | LAB | | | | [address];[place] | | | | | | [address] | | | | + + + + + + | RDW-CV | 41.1Comment: Testing | 37 - 53 fl | EXTERNAL | | | | performed at [facility];[address] | | LAB | | | | [address];[place] | | | | | | [address] | | | | + + + + + + | Platelet | 484 (H)Comment: Testing | 150 - 400 K/uL | EXTERNAL | | | Count | performed at [facility];[address] | | LAB | | | Plasma | [address];[place] | | | | | | [address] | | | | + + + + + + | MPV | 6.8Comment: Testing | fl | EXTERNAL | | | | performed at [facility];[address] | | LAB | | | | [address];[place] | | | | | | [address] | | | | + + + + + + | Differentia | AUTOMATEDComment: | | EXTERNAL | | | l Type | Testing performed at | | LAB | | | | [facility];[place] [address] | | | | + + + [...] | | | performed at [facility] | | LAB | | | | [address];[place], [place] | | | | | | [address] | | | | + + + [...] | | | performed at [facility] | | LAB | | | | [facility];[place], [place] | | | | | | [address] | | | | + + + [...] | | | performed at [facility];[address] | mmol/L | LAB | | | | [address];[place], [place] | | | | | | [address] | | | | + + + + + + | K | 3.9Comment: Testing | 3.5 - 4.9 | EXTERNAL | | | | performed at [facility] | mmol/L | LAB | | | | [address];[place] | | | | | | [address] | | | | + + + + + + | Cl | 104Comment: Testing | 99 - 109 mmol/L | EXTERNAL | | | | performed at [facility] | | LAB | | | | [address];[place] | | | | | | [address] | | | | + + + + + + | CO2 | 27Comment: Testing | 23 - 32 mmol/L | EXTERNAL | | | | performed at [facility];[address] | | LAB | | | | [address];[place] | | | | | | [address] | | | | + + + + + + | Anion Gap | 10Comment: Testing | 5 - 20 mmol/L | EXTERNAL | | | | performed at [facility] | | LAB | | | | [address];[place] | | | | | | [address] | | | | + + + + + + | Glucose, | 151 (H)Comment: Testing | 65 - 99 mg/dL | EXTERNAL | | | Fasting | performed at [facility];[address] | | LAB | | | | [address];[place] | | | | | | [address] | | | | + + + + + + | BUN | 17Comment: Testing | 8 - 25 mg/dL | EXTERNAL | | | | performed at [facility] | | LAB | | | | [address];[place] | | | | | | [address] | | | | + + + + + + | Creatinine | 0.57Comment: Testing | 0.50 - 1.00 | EXTERNAL | | | | performed at [facility] | mg/dL | LAB | | | | [address];[place] | | | | | | [address] | | | | + + + + + + | BUN/Creatin | 29Comment: Testing | | EXTERNAL | | | ine Ratio | performed at [facility];[address] | | LAB | | | | [address];[place] | | | | | | [address] | | | | + + + + + + | Calcium | 8.3 (L)Comment: Testing | 8.5 - 10.2 | EXTERNAL | | | | performed at [facility];[address] | mg/dL | LAB | | | | [address];[place] | | | | | | [address] | | | | + + + + + + | Protein, | 7.1Comment: Testing | 6.3 - 8.2 g/dL | EXTERNAL | | | Total | performed at [facility];[address] | | LAB | | | | [address];[place] | | | | | | [address] | | | | + + + + + + | Albumin | 1.9 (L)Comment: Testing | 3.6 - 5.0 g/dL | EXTERNAL | | | | performed at [facility] | | LAB | | | | [address];[place] | | | | | | [address] | | | | + + + + + + | Globulin | 5.1 (H)Comment: Testing | 1.3 - 4.9 g/dL | EXTERNAL | | | | performed at [facility] | | LAB | | | | [address];[place] | | | | | | [address] | | | | + + + + + + | A/G Ratio | 0.4 (L)Comment: Testing | 1.0 - 2.4 | EXTERNAL | | | | performed at [facility] | | LAB | | | | [address];[place] | | | | | | [address] | | | | + + + + + + | Bilirubin | 0.5Comment: Testing | 0.1 - 1.5 mg/dL | EXTERNAL | | | Total | performed at [facility] | | LAB | | | | [address];[place] | | | | | | [address] | | | | + + + + + + | ALP, | 120 (H)Comment: Testing | 35 - 115 U/L | EXTERNAL | | | External | performed at [facility] | | LAB | | | | [address];[place] | | | | | | [address] | | | | + + + + + + | AST | 79 (H)Comment: Testing | 10 - 45 U/L | EXTERNAL | | | | performed at [facility];[address] | | LAB | | | | [address];[place] | | | | | | [address] | | | | + + + + + + | ALT | 78 (H)Comment: Testing | 10 - 65 U/L | EXTERNAL | | | | performed at [facility];[address] | | LAB | | | | [address];[place] | | | | | | [address] | | | | + + + [...] | | | | at [facility];[address] [place] [address] | | | | | | [facility];[place] [address] | | | | + + + [...] | | | Fingerstick | performed at [facility];[address] | | LAB | | | | [address];[place] | | | | | | [address] | | | | + + + [...] | | | Patient | performed at [facility];[address] | | LAB | | | | [address];[place] | | | | | | [address] | | | | + + + [...] | | | | | performed at [facility];[address] | | | | | | [facility];[place], [place] | | | | | | [address] | | | | + + + [...] | | | Fingerstick | performed at [facility];[address] | | LAB | | | | [address];[place], [place] | | | | | | [address] | | | | + + + [...] | | | performed at [facility];888 | mmol/L | LAB | | | | [address];[place] | | | | | | [address] | | | | + + + [...] | | | performed at [facility];[address] | | LAB | | | | [address];[place], [place] | | | | | | [address] | | | | + + + [...] | | | performed at [facility] | | LAB | | | | [address] [facility];[place], [place] | | | | | | [address] | | | | + + + [...] | | | Fingerstick | performed at [facility];[address] | | LAB | | | | [address];[place] | | | | | | [address] | | | | + + + [...] Excursion: 2.11 cm E-F | | | [place]: 0.14 m/s IVC diameter: 2.19 cm IVC [...] 0.56 m/s TV | | | Dec [place]: 4.82 m/s2 TV Dec Time: 116.68 ms TV E Jeff: 0.56 | | | m/s TV E/A Ratio: 1 Pad Extractor Tender: MARISA Authenticated by: Daina | | | [...] (A-L): 14.81 ml/m2LAAs A2C: 11.70 | | [id number] A-L A2C: 27.34 mlLALs A2C: 4.25 cmLAAs A4C: 15.34 [id number] A-L A4C: | | 38.61 mlLALs A4C: 5.17 cmAo Diam: 2.95 cmAV Cusp: 1.94 cmLA Diam: 3.01 cmLA/Ao: | | 1.02%FS: 33.07 %EDV(Teich): 93.02 mlEF(Teich): 61.77 %ESV(Teich): 35.55 | | mlIVSd: 1.18 cmIVSs: 1.31 cmLVIDd: 4.51 cmLVIDs: 3.01 cmLVPWd: 0.59 cmLVPWs: | | 1.28 cmSV(Teich): 57.46 mlD-E Excursion: 2.11 cmE-F [place]: 0.14 m/sIVC diameter: | | 2.19 cmIVC collapse: 1.56 cmIVC % collapse: 26.37 %HR: 87.57 BPMAV maxPG: | | 10.95 mmHgAV meanP.08 mmHgAV Vmax: 1.65 m/Dalia Vmean: 1.16 m/Dalia VTI: 31.75 | | cmAVA Vmax: 2.87 cm2AVA (VTI): 3.09 [id number] Dopp: 3.61 l/[id number] Dopp: 8.73 | | l/minHR: 88.92 BPMLVOT [...] 2.30 m/sTV A Jeff: 0.56 m/sTV Dec [place]: 4.82 m/s2TV Dec Time: | | 116.68 msTV E Jeff: 0.56 m/sTV E/A Ratio: 1 Pad Extractor Tender: ALFREDOuthenticated by: Daina | | Jimmy Dayanna [...] | |D-E Excursion: 2.11 cm | |E-F [place]: 0.14 m/s | |IVC diameter: 2.19 cm [...] A Jeff: 0.56 m/s | |TV Dec [place]: 4.82 m/s2 | |TV Dec Time: 116.68 ms | |TV E Jeff: 0.56 m/s | |TV E/A Ratio: 1 | | | |Pad Extractor Tender: KVW | |Authenticated by: Daina Alan MD [...] | | | Fingerstick | performed at [facility];[address] | | LAB | | | | [address];[place], [place] | | | | | | [address] | | | | + + + [...] Rad Conversion - 11/20/2018 1:53 PM PDT IGLMA SALMONXR CHEST 1 VIEW05/10/2013 | | 5:22 [...] | | | | | [place] [address] | | | | + + + + + + | RED CELL | 3.73Comment: Testing | 3.70 - 5.10 | EXTERNAL | | | COUNT | performed at [facility], [address] | M/uL | LAB | | | | [address], | | | | | | [place] [address] | | | | + + + + + + | Hgb | 10.6 (L)Comment: Testing | 11.3 - 15.5 | EXTERNAL | | | | performed at [facility], [address] | g/dL | LAB | | | | [address], | | | | | | [place] [address] | | | | + + + + + + | Hematocrit, | 30.5 (L)Comment: Testing | 34.0 - 46.0 % | EXTERNAL | | | POC | performed at [facility], [address] | | LAB | | | | [address], | | | | | | [place] [address] | | | | + + + + + + | MCV | 81.8Comment: Testing | 80.0 - 100.0 fl | EXTERNAL | | | | performed at [facility], [address] | | LAB | | | | [address], | | | | | | [place] [address] | | | | + + + + + + | MCH | 28.4Comment: Testing | 27.0 - 34.0 pg | EXTERNAL | | | | performed at [facility], [address] | | LAB | | | | [address], | | | | | | [place] [address] | | | | + + + + + + | MCHC | 34.7Comment: Testing | 32.0 - 35.5 | EXTERNAL | | | | performed at [facility], [address] | g/dL | LAB | | | | [address], | | | | | | [place] [address] | | | | + + + + + + | RDW-CV | 41.1Comment: Testing | 37 - 53 fl | EXTERNAL | | | | performed at [facility], [address] | | LAB | | | | [address], | | | | | | [place] [address] | | | | + + + + + + | Platelet | 360Comment: Testing | 150 - 400 K/uL | EXTERNAL | | | Count | performed at [facility], [address] | | LAB | | | Plasma | [address], | | | | | | [place] [address] | | | | + + + + + + | MPV | 7.5Comment: Testing | fl | EXTERNAL | | | | performed at [facility], [address] | | LAB | | | | [address], | | | | | | [place] [address] | | | | + + + + + + | Differentia | AUTOMATEDComment: | | EXTERNAL | | | l Type | Testing performed at | | LAB | | | | [facility], [address] | | | | | | [place] | | | | | | [address] | | | | + + + [...] | | | | | [place] [address] | | | | + + + + + + | K | 3.6Comment: Testing | 3.5 - 4.9 | EXTERNAL | | | | performed at [facility], [address] | mmol/L | LAB | | | | [address], | | | | | | [place] [address] | | | | + + + + + + | Cl | 100Comment: Testing | 99 - 109 mmol/L | EXTERNAL | | | | performed at [facility], [address] | | LAB | | | | [address], | | | | | | [place] [address] | | | | + + + + + + | CO2 | 25Comment: Testing | 23 - 32 mmol/L | EXTERNAL | | | | performed at [facility], [address] | | LAB | | | | [address], | | | | | | [place] [address] | | | | + + + + + + | Anion Gap | 9Comment: Testing | 5 - 20 mmol/L | EXTERNAL | | | | performed at [facility], [address] | | LAB | | | | [address], | | | | | | [place] [address] | | | | + + + + + + | Glucose, | 144 (H)Comment: Testing | 65 - 99 mg/dL | EXTERNAL | | | Fasting | performed at [facility], [address] | | LAB | | | | [address], | | | | | | [place] [address] | | | | + + + + + + | BUN | 15Comment: Testing | 8 - 25 mg/dL | EXTERNAL | | | | performed at [facility], [address] | | LAB | | | | [address], | | | | | | [place] [address] | | | | + + + + + + | Creatinine | 0.39 (L)Comment: Testing | 0.50 - 1.00 | EXTERNAL | | | | performed at [facility], [address] | mg/dL | LAB | | | | [address], | | | | | | [place] [address] | | | | + + + + + + | BUN/Creatin | 38Comment: Testing | | EXTERNAL | | | ine Ratio | performed at [facility], [address] | | LAB | | | | [address], | | | | | | [place] [address] | | | | + + + + + + | Calcium | 8.0 (L)Comment: Testing | 8.5 - 10.2 | EXTERNAL | | | | performed at [facility], [address] | mg/dL | LAB | | | | [address], | | | | | | [place] [address] | | | | + + + [...] W | | | | | | [address], | | | | | | [place] [address] | | | | + + + [...] | | | Fingerstick | performed at [facility];[address] | | LAB | | | | [address];[place] | | | | | | [address] | | | | + + + [...] | | | performed at [facility];[address] | mmol/L | LAB | | | | [address];[place], [place] | | | | | | [address] | | | | + + + [...] | | | performed at [facility];[address] | | LAB | | | | [address];[place], [place] | | | | | | [address] | | | | + + + [...] | | | performed at [facility] | | LAB | | | | [address] [facility];[place], [place] | | | | | | [address] | | | | + + + [...] | | | Fingerstick | performed at [facility];[address] | | LAB | | | | [address];[place] | | | | | | [address] | | | | + + + [...] | | | Fingerstick | performed at [facility];[address] | | LAB | | | | [address];[place] | | | | | | [address] | | | | + + + [...] | | | performed at [facility];[address] | mmol/L | LAB | | | | [address];[place], [place] | | | | | | [address] | | | | + + + [...] | | | performed at [facility] | | LAB | | | | [facility];[place], [place] | | | | | | [address] | | | | + + + [...] | | | performed at [facility];[address] | | LAB | | | | [address];[place] | | | | | | [address] | | | | + + + [...] | | | Fingerstick | performed at [facility];[address] | | LAB | | | | [address];[place], [place] | | | | | | [address] | | | | + + + [...] | | | performed at [facility];[address] | | LAB | | | | [address];[place], [place] | | | | | | [address] | | | | + + + + + + | RED CELL | 3.95Comment: Testing | 3.70 - 5.10 | EXTERNAL | | | COUNT | performed at [facility];[address] | M/uL | LAB | | | | [address];[place] | | | | | | [address] | | | | + + + + + + | Hgb | 10.9 (L)Comment: Testing | 11.3 - 15.5 | EXTERNAL | | | | performed at [facility];[address] | g/dL | LAB | | | | [address];[place] | | | | | | [address] | | | | + + + + + + | Hematocrit, | 32.0 (L)Comment: Testing | 34.0 - 46.0 % | EXTERNAL | | | POC | performed at [facility];[address] | | LAB | | | | [address];[place] | | | | | | [address] | | | | + + + + + + | MCV | 81.0Comment: Testing | 80.0 - 100.0 fl | EXTERNAL | | | | performed at [facility];[address] | | LAB | | | | [address];[place] | | | | | | [address] | | | | + + + + + + | MCH | 27.7Comment: Testing | 27.0 - 34.0 pg | EXTERNAL | | | | performed at [facility];[address] | | LAB | | | | [address];[place] | | | | | | [address] | | | | + + + + + + | MCHC | 34.2Comment: Testing | 32.0 - 35.5 | EXTERNAL | | | | performed at [facility];[address] | g/dL | LAB | | | | [address];[place] | | | | | | [address] | | | | + + + + + + | RDW-CV | 42.9Comment: Testing | 37 - 53 fl | EXTERNAL | | | | performed at [facility];[address] | | LAB | | | | [address];[place] | | | | | | [address] | | | | + + + + + + | Platelet | 363Comment: Testing | 150 - 400 K/uL | EXTERNAL | | | Count | performed at [facility];[address] | | LAB | | | Plasma | [address];[place] | | | | | | [address] | | | | + + + + + + | MPV | 7.1Comment: Testing | fl | EXTERNAL | | | | performed at [facility];[address] | | LAB | | | | [address];[place] | | | | | | [address] | | | | + + + + + + | Differentia | AUTOMATEDComment: | | EXTERNAL | | | l Type | Testing performed at | | LAB | | | | [facility];[address];[place] [address] | | | | + + + [...] | | | performed at [facility];[address] | | LAB | | | | [address];[place] | | | | | | [address] | | | | + + + [...] | | | performed at [facility];[address] | | LAB | | | | [address];[place], [place] | | | | | | [address] | | | | + + + [...] | | | performed at [facility];[address] | mmol/L | LAB | | | | [address];[place] | | | | | | [address] | | | | + + + + + + | K | 3.9Comment: Testing | 3.5 - 4.9 | EXTERNAL | | | | performed at [facility];[address] | mmol/L | LAB | | | | [address];[place] | | | | | | [address] | | | | + + + + + + | Cl | 106Comment: Testing | 99 - 109 mmol/L | EXTERNAL | | | | performed at [facility];[address] | | LAB | | | | [address];[place] | | | | | | [address] | | | | + + + + + + | CO2 | 26Comment: Testing | 23 - 32 mmol/L | EXTERNAL | | | | performed at [facility];[address] | | LAB | | | | [address];[place] | | | | | | [address] | | | | + + + + + + | Anion Gap | 10Comment: Testing | 5 - 20 mmol/L | EXTERNAL | | | | performed at [facility];[address] | | LAB | | | | [address];[place] | | | | | | [address] | | | | + + + + + + | Glucose, | 160 (H)Comment: Testing | 65 - 99 mg/dL | EXTERNAL | | | Fasting | performed at [facility];[address] | | LAB | | | | [address];[place] | | | | | | [address] | | | | + + + + + + | BUN | 16Comment: Testing | 8 - 25 mg/dL | EXTERNAL | | | | performed at [facility];[address] | | LAB | | | | [address];[place] | | | | | | [address] | | | | + + + + + + | Creatinine | 0.61Comment: Testing | 0.50 - 1.00 | EXTERNAL | | | | performed at [facility];[address] | mg/dL | LAB | | | | [address];[place] | | | | | | [address] | | | | + + + + + + | BUN/Creatin | 26Comment: Testing | | EXTERNAL | | | ine Ratio | performed at [facility];[address] | | LAB | | | | [address];[place] | | | | | | [address] | | | | + + + + + + | Calcium | 8.1 (L)Comment: Testing | 8.5 - 10.2 | EXTERNAL | | | | performed at [facility];[address] | mg/dL | LAB | | | | [address];[place] | | | | | | [address] | | | | + + + [...] | | | | at [facility];[address];[place] [address] | | | | + + + [...] | | | Fingerstick | performed at [facility];[address] | | LAB | | | | [address];[place], [place] | | | | | | [address] | | | | + + + [...] | | | Fingerstick | performed at [facility];[address] | | LAB | | | | [address];[place], [place] | | | | | | [address] | | | | + + + [...] | | | performed at [facility];[address] | mmol/L | LAB | | | | [address];[place], [place] | | | | | | [address] | | | | + + + [...] | | | Fingerstick | performed at [facility];[address] | | LAB | | | | [address];[place] | | | | | | [address] | | | | + + + [...] | | | performed at [facility];[address] | mmol/L | LAB | | | | [address];[place] | | | | | | [address] | | | | + + + [...] | | | performed at [facility] | | LAB | | | | [facility];[place], [place] | | | | | | [address] | | | | + + + [...] | | | performed at [facility];[address] | | LAB | | | | [address] [facility];[place], [place] | | | | | | [address] | | | | + + + [...] | | | performed at [facility];[address] | | LAB | | | | [address];[place] | | | | | | [address] | | | | + + + + + + | RED CELL | 4.07Comment: Testing | 3.70 - 5.10 | EXTERNAL | | | COUNT | performed at [facility];[address] | M/uL | LAB | | | | [address];[place] | | | | | | [address] | | | | + + + + + + | Hgb | 11.1 (L)Comment: Testing | 11.3 - 15.5 | EXTERNAL | | | | performed at [facility];[address] | g/dL | LAB | | | | [address];[place] | | | | | | [address] | | | | + + + + + + | Hematocrit, | 32.9 (L)Comment: Testing | 34.0 - 46.0 % | EXTERNAL | | | POC | performed at [facility];[address] | | LAB | | | | [address];[place] | | | | | | [address] | | | | + + + + + + | MCV | 80.8Comment: Testing | 80.0 - 100.0 fl | EXTERNAL | | | | performed at [facility];[address] | | LAB | | | | [address];[place] | | | | | | [address] | | | | + + + + + + | MCH | 27.3Comment: Testing | 27.0 - 34.0 pg | EXTERNAL | | | | performed at [facility];[address] | | LAB | | | | [address];[place] | | | | | | [address] | | | | + + + + + + | MCHC | 33.8Comment: Testing | 32.0 - 35.5 | EXTERNAL | | | | performed at [facility];[address] | g/dL | LAB | | | | [address];[place] | | | | | | [address] | | | | + + + + + + | RDW-CV | 41.1Comment: Testing | 37 - 53 fl | EXTERNAL | | | | performed at [facility];[address] | | LAB | | | | [address];[place] | | | | | | [address] | | | | + + + + + + | Platelet | 307Comment: Testing | 150 - 400 K/uL | EXTERNAL | | | Count | performed at [facility];[address] | | LAB | | | Plasma | [address];[place] | | | | | | [address] | | | | + + + + + + | MPV | 7.5Comment: Testing | fl | EXTERNAL | | | | performed at [facility];[address] | | LAB | | | | [address];[place] | | | | | | [address] | | | | + + + + + + | Differentia | AUTOMATEDComment: | | EXTERNAL | | | l Type | Testing performed at | | LAB | | | | [facility];[address] [facility] | | | | | | Bl;[place] [address] | | | | + + + [...] | | | performed at [facility];[address] | | LAB | | | | [place] [facility];[place], [place] | | | | | | [address] | | | | + + + [...] LAB | | | | performed at [facility];[address] | | | | | | [address];[place], [place] | | | | | | [address] | | | | + + + [...] | | | performed at [facility];[address] | mmol/L | LAB | | | | [address];[place] | | | | | | [address] | | | | + + + + + + | K | 3.7Comment: SLT | 3.5 - 4.9 | EXTERNAL | | | | HEMOLYSISTesting | mmol/L | LAB | | | | performed at [facility];[address] | | | | | | [address];[place] | | | | | | [address] | | | | + + + + + + | Cl | 106Comment: Testing | 99 - 109 mmol/L | EXTERNAL | | | | performed at [facility];[address] | | LAB | | | | [address];[place] | | | | | | [address] | | | | + + + + + + | CO2 | 26Comment: Testing | 23 - 32 mmol/L | EXTERNAL | | | | performed at [facility];[address] | | LAB | | | | [address];[place] | | | | | | [address] | | | | + + + + + + | Anion Gap | 10Comment: Testing | 5 - 20 mmol/L | EXTERNAL | | | | performed at [facility];[address] | | LAB | | | | [address];[place] | | | | | | [address] | | | | + + + + + + | Glucose, | 179 (H)Comment: Testing | 65 - 99 mg/dL | EXTERNAL | | | Fasting | performed at [facility];[address] | | LAB | | | | [address];[place] | | | | | | [address] | | | | + + + + + + | BUN | 16Comment: Testing | 8 - 25 mg/dL | EXTERNAL | | | | performed at [facility];[address] | | LAB | | | | [address];[place] | | | | | | [address] | | | | + + + + + + | Creatinine | 0.62Comment: Testing | 0.50 - 1.00 | EXTERNAL | | | | performed at [facility];[address] | mg/dL | LAB | | | | [address];[place] | | | | | | [address] | | | | + + + + + + | BUN/Creatin | 26Comment: Testing | | EXTERNAL | | | ine Ratio | performed at [facility];[address] | | LAB | | | | [address];[place] | | | | | | [address] | | | | + + + + + + | Calcium | 7.9 (L)Comment: Testing | 8.5 - 10.2 | EXTERNAL | | | | performed at [facility];[address] | mg/dL | LAB | | | | [address];[place] | | | | | | [address] | | | | + + + [...] | | | | at [facility];[address] [place] [address] | | | | | | [facility];[place] [address] | | | | + + + [...] Braxton Conversion - 11/20/2018 1:53 PM ISI [id number] yearsXR | | CHEST 1 VIEW05/08/2013 5:49 [...] | | | Fingerstick | performed at [facility];[address] | | LAB | | | | [address];[place] | | | | | | [address] | | | | + + + [...] | | | Fingerstick | performed at [facility];[address] | | LAB | | | | [address];[place] | | | | | | [address] | | | | + + + [...] | | | Fingerstick | performed at [facility];[address] | | LAB | | | | [address];[place], [place] | | | | | | [address] | | | | + + + [...] | | | performed at [facility];888 | mmol/L | LAB | | | | [address];[place] | | | | | | [address] | | | | + + + [...] | EXTERNAL LAB | | performed at [facility];[address] [place] [id number] [id number] NAP1 BI | | | 027 NAP1 BI PRESUMPTIVE NEGATIVE | | | Detection of 027 NAP1 BI strains of C. difficile is presumptive and | | | for epidemiological purposes and not intended to guide or monitor | | | treatment for C. difficile infections. Testing performed at [facility] | | | [facility];[place] [address] | | + + + + +---------+ [...] | | | Fingerstick | performed at [facility];[address] | | LAB | | | | [address];[place], [place] | | | | | | [address] | | | | + + + [...] | | | performed at [facility];[address] | | LAB | | | | [address];[place] | | | | | | [address] | | | | + + + + + + | RED CELL | 4.28Comment: Testing | 3.70 - 5.10 | EXTERNAL | | | COUNT | performed at [facility] | M/uL | LAB | | | | [address];[place] | | | | | | [address] | | | | + + + + + + | Hgb | 11.8Comment: Testing | 11.3 - 15.5 | EXTERNAL | | | | performed at [facility];[address] | g/dL | LAB | | | | [address];[place] | | | | | | [address] | | | | + + + + + + | Hematocrit, | 35.0Comment: Testing | 34.0 - 46.0 % | EXTERNAL | | | POC | performed at [facility];[address] | | LAB | | | | [address];[place] | | | | | | [address] | | | | + + + + + + | MCV | 81.7Comment: Testing | 80.0 - 100.0 fl | EXTERNAL | | | | performed at [facility] | | LAB | | | | [address];[place] | | | | | | [address] | | | | + + + + + + | MCH | 27.6Comment: Testing | 27.0 - 34.0 pg | EXTERNAL | | | | performed at [facility];[address] | | LAB | | | | [address];[place] | | | | | | [address] | | | | + + + + + + | MCHC | 33.8Comment: Testing | 32.0 - 35.5 | EXTERNAL | | | | performed at [facility];[address] | g/dL | LAB | | | | [address];[place] | | | | | | [address] | | | | + + + + + + | RDW-CV | 42.4Comment: Testing | 37 - 53 fl | EXTERNAL | | | | performed at [facility];[address] | | LAB | | | | [address];[place] | | | | | | [address] | | | | + + + + + + | Platelet | 260Comment: Testing | 150 - 400 K/uL | EXTERNAL | | | Count | performed at [facility];[address] | | LAB | | | Plasma | [address];[place] | | | | | | [address] | | | | + + + + + + | MPV | 8.0Comment: Testing | fl | EXTERNAL | | | | performed at [facility];[address] | | LAB | | | | [address];[place] | | | | | | [address] | | | | + + + + + + | Differentia | AUTOMATEDComment: | | EXTERNAL | | | l Type | Testing performed at | | LAB | | | | [facility];[address];[place] [address] | | | | + + + [...] | | | performed at [facility];[address] | | LAB | | | | [address];[place], [place] | | | | | | [address] [...] | | | performed at [facility];[address] | | LAB | | | | [address];[place] | | | | | | [address] | | | | + + + [...] | | | performed at [facility];[address] | mmol/L | LAB | | | | [address];[place] | | | | | | [address] | | | | + + + + + + | K | 3.7Comment: Testing | 3.5 - 4.9 | EXTERNAL | | | | performed at [facility];[address] | mmol/L | LAB | | | | [address];[place] | | | | | | [address] | | | | + + + + + + | Cl | 108Comment: Testing | 99 - 109 mmol/L | EXTERNAL | | | | performed at [facility];[address] | | LAB | | | | [address];[place] | | | | | | [address] | | | | + + + + + + | CO2 | 24Comment: Testing | 23 - 32 mmol/L | EXTERNAL | | | | performed at [facility];[address] | | LAB | | | | [address];[place] | | | | | | [address] | | | | + + + + + + | Anion Gap | 13Comment: Testing | 5 - 20 mmol/L | EXTERNAL | | | | performed at [facility];[address] | | LAB | | | | [address];[place] | | | | | | [address] | | | | + + + + + + | Glucose, | 125 (H)Comment: Testing | 65 - 99 mg/dL | EXTERNAL | | | Fasting | performed at [facility];[address] | | LAB | | | | [address];[place] | | | | | | [address] | | | | + + + + + + | BUN | 12Comment: Testing | 8 - 25 mg/dL | EXTERNAL | | | | performed at [facility] | | LAB | | | | [address];[place] | | | | | | [address] | | | | + + + + + + | Creatinine | 0.76Comment: Testing | 0.50 - 1.00 | EXTERNAL | | | | performed at [facility];888 | mg/dL | LAB | | | | [address];[place] | | | | | | [address] | | | | + + + + + + | BUN/Creatin | 15Comment: Testing | | EXTERNAL | | | ine Ratio | performed at [facility];[address] | | LAB | | | | [address];[place] | | | | | | [address] | | | | + + + + + + | Calcium | 7.9 (L)Comment: Testing | 8.5 - 10.2 | EXTERNAL | | | | performed at [facility];888 | mg/dL | LAB | | | | [address];[place] | | | | | | [address] | | | | + + + [...] | | | | at [facility];[address] [place] [address] | | | | | | [facility];[place] [address] | | | | + + + [...] | | | Fingerstick | performed at [facility];[address] | | LAB | | | | [address];[place], [place] | | | | | | [address] | | | | + + + [...] | | | Fingerstick | performed at [facility];[address] | | LAB | | | | [address];[place] | | | | | | [address] | | | | + + + [...] | | | Fingerstick | performed at [facility];[address] | | LAB | | | | [address];[place] | | | | | | [address] | | | | + + + [...] | | | Fingerstick | performed at [facility];[address] | | LAB | | | | [address];[place] | | | | | | [address] | | | | + + + [...] | | | Fingerstick | performed at [facility];[address] | | LAB | | | | [address];[place] | | | | | | [address] | | | | + + + [...] | | | Fingerstick | performed at [facility];[address] | | LAB | | | | [address];[place], [place] | | | | | | [address] | | | | + + + [...] | | | performed at [facility];888 | mmol/L | LAB | | | | [address];[place] | | | | | | [address] | | | | + + + [...] | | | performed at [facility];[address] | | LAB | | | | [address];[place], [place] | | | | | | [address] | | | | + + + [...] | | | Fingerstick | performed at [facility];[address] | | LAB | | | | [address];[place] | | | | | | [address] | | | | + + + [...] | | | Fingerstick | performed at [facility];[address] | | LAB | | | | [address];[place], [place] | | | | | | [address] | | | | + + + [...] | | | Fingerstick | performed at [facility];[address] | | LAB | | | | [address];[place], [place] | | | | | | [address] | | | | + + + [...] | | | Fingerstick | performed at [facility];[address] | | LAB | | | | [address];[place] | | | | | | [address] | | | | + + + [...] | | | | | [place] [address] | | | | + + + + + + | RED CELL | 4.48Comment: Testing | 3.70 - 5.10 | EXTERNAL | | | COUNT | performed at [facility], [address] | M/uL | LAB | | | | [address], | | | | | | [place] [address] | | | | + + + + + + | Hgb | 11.7Comment: Testing | 11.3 - 15.5 | EXTERNAL | | | | performed at [facility], [address] | g/dL | LAB | | | | [address], | | | | | | [place] [address] | | | | + + + + + + | Hematocrit, | 36.6Comment: Testing | 34.0 - 46.0 % | EXTERNAL | | | POC | performed at [facility], [address] | | LAB | | | | [address], | | | | | | [place] [address] | | | | + + + + + + | MCV | 81.7Comment: Testing | 80.0 - 100.0 fl | EXTERNAL | | | | performed at [facility], [address] | | LAB | | | | [address], | | | | | | [place] [address] | | | | + + + + + + | MCH | 26.1 (L)Comment: Testing | 27.0 - 34.0 pg | EXTERNAL | | | | performed at [facility], [address] | | LAB | | | | [address], | | | | | | [place] [address] | | | | + + + + + + | MCHC | 32.0Comment: Testing | 32.0 - 35.5 | EXTERNAL | | | | performed at [facility], [address] | g/dL | LAB | | | | [address], | | | | | | [place] [address] | | | | + + + + + + | RDW-CV | 39.8Comment: Testing | 37 - 53 fl | EXTERNAL | | | | performed at [facility], [address] | | LAB | | | | [address], | | | | | | [place] [address] | | | | + + + + + + | Platelet | 202Comment: Testing | 150 - 400 K/uL | EXTERNAL | | | Count | performed at [facility], [address] | | LAB | | | Plasma | [address], | | | | | | [place] [address] | | | | + + + + + + | MPV | 8.3Comment: Testing | fl | EXTERNAL | | | | performed at [facility], [address] | | LAB | | | | [address], | | | | | | [place] [address] | | | | + + + + + + | Differentia | AUTOMATEDComment: | | EXTERNAL | | | l Type | Testing performed at | | LAB | | | | [facility], [address] | | | | | | [place] | | | | | | [address] | | | | + + + [...] | | | performed at [facility];[address] | | LAB | | | | [address];[place], [place] | | | | | | [address] | | | | + + + [...] | | | performed at [facility];[address] | | LAB | | | | [address];[place], [place] | | | | | | [address] | | | | + + + [...] | EXTERNAL | | | A1c | [place] [facility] | | LAB | | | [...] | | | | | performed at [facility], [address] | | | | | [address] [facility], | | | | | | [place] [address] | | | | + + + [...] | | | | | performed at [facility], [address] | | | | | | [facility], | | | | | | [place] [address] | | | | + + + [...] | | | performed at [facility];[address] | | LAB | | | | [address];[place], [place] | | | | | | [address] | | | | + + + [...] | | | performed at [facility];888 | mmol/L | LAB | | | | [address];[place] | | | | | | [address] | | | | + + + + + + | K | 3.7Comment: Testing | 3.5 - 4.9 | EXTERNAL | | | | performed at [facility];[address] | mmol/L | LAB | | | | [address];[place] | | | | | | [address] | | | | + + + + + + | Cl | 109Comment: Testing | 99 - 109 mmol/L | EXTERNAL | | | | performed at [facility];[address] | | LAB | | | | [address];[place] | | | | | | [address] | | | | + + + + + + | CO2 | 25Comment: Testing | 23 - 32 mmol/L | EXTERNAL | | | | performed at [facility];[address] | | LAB | | | | [address];[place] | | | | | | [address] | | | | + + + + + + | Anion Gap | 11Comment: Testing | 5 - 20 mmol/L | EXTERNAL | | | | performed at [facility];[address] | | LAB | | | | [address];[place] | | | | | | [address] | | | | + + + + + + | Glucose, | 97Comment: Testing | 65 - 99 mg/dL | EXTERNAL | | | Fasting | performed at [facility];[address] | | LAB | | | | [address];[place] | | | | | | [address] | | | | + + + + + + | BUN | 6 (L)Comment: Testing | 8 - 25 mg/dL | EXTERNAL | | | | performed at [facility];[address] | | LAB | | | | [address];[place] | | | | | | [address] | | | | + + + + + + | Creatinine | 0.70Comment: Testing | 0.50 - 1.00 | EXTERNAL | | | | performed at [facility];[address] | mg/dL | LAB | | | | [address];[place] | | | | | | [address] | | | | + + + + + + | BUN/Creatin | 9Comment: Testing | | EXTERNAL | | | ine Ratio | performed at [facility];[address] | | LAB | | | | [address];[place] | | | | | | [address] | | | | + + + + + + | Calcium | 7.5 (L)Comment: Testing | 8.5 - 10.2 | EXTERNAL | | | | performed at [facility];[address] | mg/dL | LAB | | | | [address];[place] | | | | | | [address] | | | | + + + [...] | | | | at [facility];[address] [place] [address] | | | | | | [facility];[place] [address] | | | | + + + [...] | | | Fingerstick | performed at [facility];[address] | | LAB | | | | [address];[place] | | | | | | [address] | | | | + + + [...] | | | Fingerstick | performed at [facility];[address] | | LAB | | | | [address];[place] | | | | | | [address] | | | | + + + [...] | | | Fingerstick | performed at [facility];[address] | | LAB | | | | [address];[place] | | | | | | [address] | | | | + + + [...] | | | Fingerstick | performed at [facility];[address] | | LAB | | | | [address];[place] | | | | | | [address] | | | | + + + [...] | | | Fingerstick | performed at [facility];[address] | | LAB | | | | [address];[place], [place] | | | | | | [address] | | | | + + + [...] | | | performed at [facility];888 | mmol/L | LAB | | | | [address];[place] | | | | | | [address] | | | | + + + [...] | | | performed at [facility];[address] | | LAB | | | | [address];[place], [place] | | | | | | [address] | | | | + + + [...] | | | performed at [facility] | | LAB | | | | [address];[place], [place] | | | | | | [address] | | | | + + + [...] | Testing performed at | | | [facility];[address] [facility];[place] [address] CULTURE | | | NO GROWTH | | | Testing performed at [facility], [address] [facility], | | | [place] [address] REPORT STATUS | | | 05/06/2013 FINAL [...] | | | performed at [facility];[address] | | LAB | | | | [address];[place] | | | | | | [address] | | | | + + + + + + | RBC, UA | 16-25Comment: Testing | 0 - 5 /hpf | EXTERNAL | | | | performed at [facility];[address] | | LAB | | | | [address];[place] | | | | | | [address] | | | | + + + + + + | Epithelial | 1-5Comment: Testing | /lpf | EXTERNAL | | | Cells | performed at [facility];[address] | | LAB | | | | [address];[place] | | | | | | [address] | | | | + + + + + + | Bacteria, | 1+ (A)Comment: Testing | | EXTERNAL | | | UA | performed at [facility];[address] | | LAB | | | | [address];[place] | | | | | | [address] | | | | + + + [...] | | | performed at [facility];[address] | | LAB | | | | [address];[place] | | | | | | [address] | | | | + + + + + + | Clarity | CLOUDYComment: Testing | | EXTERNAL | | | | performed at [facility];[address] | | LAB | | | | [address];[place] | | | | | | [address] | | | | + + + + + + | Specific | 1.015Comment: Testing | 1.001 - 1.035 | EXTERNAL | | | [place] | performed at [facility];[address] | | LAB | | | | [address];[place] | | | | | | [address] | | | | + + + + + + | Leukocyte | JOSE CARLOS (Juan Carlos)Comment: | | EXTERNAL | | | Esterase, | Testing performed at | | LAB | | | Urine | [facility];[address];[place] [address] | | | | + + + + + + | Nitrite, | NEGATIVEComment: Testing | | EXTERNAL | | | Urine | performed at [facility];[address] | | LAB | | | | [address];[place] | | | | | | [address] | | | | + + + + + + | Urobilinoge | 0.2Comment: Testing | mg/dL | EXTERNAL | | | n, Urine | performed at [facility];[address] | | LAB | | | | [address];[place] | | | | | | [address] | | | | + + + + + + | Protein, | NEGATIVEComment: Testing | mg/dL | EXTERNAL | | | Urine | performed at [facility];[address] | | LAB | | | | [address];[place] | | | | | | [address] | | | | + + + + + + | pH, Urine | 6.0Comment: Testing | 4.6 - 8.0 | EXTERNAL | | | | performed at [facility];[address] | | LAB | | | | [address];[place] | | | | | | [address] | | | | + + + + + + | Blood, | LARGE (A)Comment: | | EXTERNAL | | | Urine | Testing performed at | | LAB | | | | [facility];[address];[place] [address] | | | | + + + + + + | Ketones | NEGATIVEComment: Testing | mg/dL | EXTERNAL | | | | performed at [facility];[address] | | LAB | | | | [address];[place] | | | | | | [address] | | | | + + + + + + | Bilirubin, | NEGATIVEComment: Testing | | EXTERNAL | | | Urine | performed at [facility];[address] | | LAB | | | | [address];[place] | | | | | | [address] | | | | + + + + + + | Glucose, | NEGATIVEComment: Testing | mg/dL | EXTERNAL | | | Urine | performed at [facility];[address] | | LAB | | | | [address];[place] | | | | | | [address] | | | | + + + [...] | | | Fingerstick | performed at [facility];[address] | | LAB | | | | [address];[place] | | | | | | [address] | | | | + + + [...] | | | Fingerstick | performed at [facility];[address] | | LAB | | | | [address];[place], [place] | | | | | | [address] | | | | + + + [...] | Testing performed | | | at [facility];[address] [place] [address];[place] [address] SPECIAL REQUESTS | | | RAC | | | Testing performed at [facility];[address] [place] [address];[place] [address] | | | CULTURE NO GROWTH 6 DAYS | | | Testing performed | | | at [facility], [address] [place] [address] REPORT STATUS | | | 05/11/2013 FINAL [...] | | | Fingerstick | performed at [facility];[address] | | LAB | | | | [address];[place], [place] | | | | | | [address] | | | | + + + [...] | | | performed at [facility];[address] | | LAB | | | | [address];[place] | | | | | | [address] | | | | + + + + + + | RED CELL | 4.48Comment: Testing | 3.70 - 5.10 | EXTERNAL | | | COUNT | performed at [facility];[address] | M/uL | LAB | | | | [address];[place] | | | | | | [address] | | | | + + + + + + | Hgb | 12.4Comment: Testing | 11.3 - 15.5 | EXTERNAL | | | | performed at [facility];[address] | g/dL | LAB | | | | [address];[place] | | | | | | [address] | | | | + + + + + + | Hematocrit, | 36.1Comment: Testing | 34.0 - 46.0 % | EXTERNAL | | | POC | performed at [facility];[address] | | LAB | | | | [address];[place] | | | | | | [address] | | | | + + + + + + | MCV | 80.6Comment: Testing | 80.0 - 100.0 fl | EXTERNAL | | | | performed at [facility];[address] | | LAB | | | | [address];[place] | | | | | | [address] | | | | + + + + + + | MCH | 27.7Comment: Testing | 27.0 - 34.0 pg | EXTERNAL | | | | performed at [facility];[address] | | LAB | | | | [address];[place] | | | | | | [address] | | | | + + + + + + | MCHC | 34.3Comment: Testing | 32.0 - 35.5 | EXTERNAL | | | | performed at [facility];[address] | g/dL | LAB | | | | [address];[place] | | | | | | [address] | | | | + + + + + + | RDW-CV | 41.1Comment: Testing | 37 - 53 fl | EXTERNAL | | | | performed at [facility];[address] | | LAB | | | | [address];[place] | | | | | | [address] | | | | + + + + + + | Platelet | 211Comment: Testing | 150 - 400 K/uL | EXTERNAL | | | Count | performed at [facility];[address] | | LAB | | | Plasma | [address];[place] | | | | | | [address] | | | | + + + + + + | MPV | 8.2Comment: Testing | fl | EXTERNAL | | | | performed at [facility];[address] | | LAB | | | | [address];[place] | | | | | | [address] | | | | + + + + + + | Differentia | AUTOMATEDComment: | | EXTERNAL | | | l Type | Testing performed at | | LAB | | | | [facility];[address];[place] [address] | | | | + + + [...] | | | performed at [facility];[address] | | LAB | | | | [address];[place], [place] | | | | | | [address] | | | | + + + [...] | | | performed at [facility] | | LAB | | | | [address] [facility];[place], [place] | | | | | | [address] | | | | + + + [...] | | | performed at [facility];[address] | mmol/L | LAB | | | | [address];[place] | | | | | | [address] | | | | + + + + + + | K | 3.4 (L)Comment: Testing | 3.5 - 4.9 | EXTERNAL | | | | performed at [facility];[address] | mmol/L | LAB | | | | [address];[place] | | | | | | [address] | | | | + + + + + + | Cl | 104Comment: Testing | 99 - 109 mmol/L | EXTERNAL | | | | performed at [facility];[address] | | LAB | | | | [address];[place] | | | | | | [address] | | | | + + + + + + | CO2 | 27Comment: Testing | 23 - 32 mmol/L | EXTERNAL | | | | performed at [facility];[address] | | LAB | | | | [address];[place] | | | | | | [address] | | | | + + + + + + | Anion Gap | 11Comment: Testing | 5 - 20 mmol/L | EXTERNAL | | | | performed at [facility];[address] | | LAB | | | | [address];[place] | | | | | | [address] | | | | + + + + + + | Glucose, | 188 (H)Comment: Testing | 65 - 99 mg/dL | EXTERNAL | | | Fasting | performed at [facility];[address] | | LAB | | | | [address];[place] | | | | | | [address] | | | | + + + + + + | BUN | 3 (L)Comment: Testing | 8 - 25 mg/dL | EXTERNAL | | | | performed at [facility];[address] | | LAB | | | | [address];[place] | | | | | | [address] | | | | + + + + + + | Creatinine | 0.81Comment: Testing | 0.50 - 1.00 | EXTERNAL | | | | performed at [facility];[address] | mg/dL | LAB | | | | [address];[place] | | | | | | [address] | | | | + + + + + + | BUN/Creatin | 4Comment: Testing | | EXTERNAL | | | ine Ratio | performed at [facility];[address] | | LAB | | | | [address];[place] | | | | | | [address] | | | | + + + + + + | Calcium | 7.6 (L)Comment: Testing | 8.5 - 10.2 | EXTERNAL | | | | performed at [facility];[address] | mg/dL | LAB | | | | [address];[place] | | | | | | [address] | | | | + + + + + + | Protein, | 6.3Comment: Testing | 6.3 - 8.2 g/dL | EXTERNAL | | | Total | performed at [facility];[address] | | LAB | | | | [address];[place] | | | | | | [address] | | | | + + + + + + | Albumin | 2.2 (L)Comment: Testing | 3.6 - 5.0 g/dL | EXTERNAL | | | | performed at [facility];[address] | | LAB | | | | [address];[place] | | | | | | [address] | | | | + + + + + + | Globulin | 4.1Comment: Testing | 1.3 - 4.9 g/dL | EXTERNAL | | | | performed at [facility];[address] | | LAB | | | | [address];[place] | | | | | | [address] | | | | + + + + + + | A/G Ratio | 0.5 (L)Comment: Testing | 1.0 - 2.4 | EXTERNAL | | | | performed at [facility];[address] | | LAB | | | | [address];[place] | | | | | | [address] | | | | + + + + + + | Bilirubin | 0.5Comment: Testing | 0.1 - 1.5 mg/dL | EXTERNAL | | | Total | performed at [facility];[address] | | LAB | | | | [address];[place] | | | | | | [address] | | | | + + + + + + | ALP, | 99Comment: Testing | 35 - 115 U/L | EXTERNAL | | | External | performed at [facility];[address] | | LAB | | | | [address];[place] | | | | | | [address] | | | | + + + + + + | AST | 134 (H)Comment: Testing | 10 - 45 U/L | EXTERNAL | | | | performed at [facility];[address] | | LAB | | | | [address];[place] | | | | | | [address] | | | | + + + + + + | ALT | 157 (H)Comment: Testing | 10 - 65 U/L | EXTERNAL | | | | performed at [facility];[address] | | LAB | | | | [address];[place] | | | | | | [address] | | | | + + + [...] | | | | at [facility];[address] [place] [address] | | | | | | [facility];[place] [address] | | | | + + + [...] | Testing performed | | | at [facility];[address] [place] [address] SPECIAL REQUESTS | | | RAC | | | Testing performed at [facility];[address] [place] [address] | | | CULTURE NO GROWTH 6 DAYS | | | Testing performed | | | at [facility], [address] [place] [address] REPORT STATUS | | | 05/11/2013 FINAL [...] | | | Fingerstick | performed at [facility];[address] | | LAB | | | | [address];[place] | | | | | | [address] | | | | + + + [...] EXTERNAL LAB | | Testing performed at [facility];[address] [place] [address];[place] [address] MRSA PCR | | | NEGATIVE Testing performed at | | | [facility];[address] [place] [address];[place] [address] | | + + + + +---------+ [...] | Testing performed at | | | [facility];[address] [facility];[place] [address] GRAM STAIN | | | GREATER THAN 10 WBCS/LPF | | | LESS THAN 10 SEC/LPF | | | NO ORGANISMS SEEN | | | Testing performed at [facility], [address] | | | [facility], [place] [address] CULTURE | | | NO GROWTH 2 DAYS | | | Testing performed at [facility], [address] [facility], | | | [place] [address] REPORT STATUS | | | 05/07/2013 FINAL [...] + | Acute respiratory distress syndrome (ARDS) ([facility]) Other pulmonary insufficiency, not | | elsewhere classified, following trauma and surgery | + + | Influenza A Influenza with other respiratory manifestations | + + | Morbid obesity with BMI of 45.0-49.9, adult ([facility]) | + + | Poorly controlled diabetes mellitus ([facility]) Type II or unspecified type diabetes | | mellitus without mention of complication, not stated as uncontrolled | + + | Secondary bacterial pneumonia | + + documented in this encounter
--- OUTSIDE RECORDS SUMMARY | ~2019-03-02 | XMS | Encounter Summary ---
Demographics + + + | Address | [address] | | | [place] [address] | + + + | Home Phone | | + + + | Preferred Language | Unknown | + + + | Marital Status | | + + + | Scientologist Affiliation | Unknown | + + + [...] Providers + +------+ + | Care Food Service Tray Attendant Name | Role | Phone | + +------+ + | Mynor Kam MD | PCP | | + +------+ + Encounter Details +--------+ + + + + | Date | Type | Department | Care Team | Description | +--------+ + + + + | 06/02/ | Orders Only | [facility] | [facility], | | | 2019 | | PULMONOLOGY [address] | [address], | | | | | [address] | [address] | | | | | [place], [place] | [place] [address] [place], | | | | | [address] | [place] [address] | | | | | [phone] | [phone] | | | | | | | [...] [place], | | | | | | [place] [address] | | | | | | [phone] | | | | | | | | +--------+---------+ + + + | 06/01/ | Office | Neurology | Elaine Andrews, | | | 2019 | Visit | | [address] | | | | | | [address] | | | | | | [place] [address] | | | | | | [phone] | | | | | | | | +--------+---------+ + + + documented as of this encounter Visit Diagnoses Not on filedocumented in this encounter"
--- OUTSIDE RECORDS SUMMARY | ~2019-03-02 | XMS | Encounter Summary ---
Demographics + + + | Address | [address] | | | [place] [address] | + + + | Home Phone [...] Team Providers + +------+ + | Care Rigging Foreman Name | Role | Phone | + +------+ + PCP | Unavailable | + +------+ + Encounter Details +--------+ + + + + | Date | Type | Department | Care Team | Description | +--------+ + + + + | 11/08/ | Emergency | [facility] | Patrick Huston, | Patient left before | | 2013 | | [facility] | [address] | treatment completed | | | | EM[facility] | [place], [place] | | | | | [address] | [address] | | | | | [place], [place] | [phone] | | | | | [address] | | | | | | [phone] | | | +--------+ + + + [...] | | | | | | [place] [address] | | | | | | [phone] | | | | | | | | +--------+---------+ + + + | 06/01/ | Office | Neurology | Elaine Andrews, | | | 2019 | Visit | | [address] | | | | | | [address] | | | | | | [place] [address] | | | | | | [phone] | | | | | | | | +--------+---------+ + + + documented as of this encounter Visit Diagnoses + + | Diagnosis | + + | Patient left before treatment completed Personal history of noncompliance with | | medical treatment, presenting hazards to health | + + documented in this encounter"
--- OUTSIDE RECORDS SUMMARY | ~2019-03-02 | XMS | Encounter Summary ---
Demographics + + + | Address | [address] | | | [place] [address] | + + + | Home Phone | | + + + | Preferred Language | Unknown | + + + | Marital Status | | + + + | Restoration Affiliation | Unknown | + + + | Race | Unknown | + + + | Ethnic Group | Unknown | + + + Author + + + | Author | [facility] | | | and [place] | + + + | Organization | [facility] | | [...] Team Providers + +------+ + | Care Architect Name | Role | Phone | [...] Unknown | | | | | [facility] | | | | | | [phone] | (Fax) | | | | | [phone] | | | +--------+ + + + [...] | | | | | | [place] [address] | | | | | | [phone] | | | | | | | | +--------+---------+ + + + | 06/01/ | Office | Neurology | Elaine Andrews, | | | 2019 | Visit | | [address] | | | | | | [address] | | | | | | [place] [address] | | | | | | [phone] | | | | | | | [...]
--- OUTSIDE RECORDS SUMMARY | ~2019-03-02 | XMS | Encounter Summary ---
Demographics + + + | Address | [address] | | | [place] [address] | + + + | Home Phone [...] | +--------+ + + + + | 10/07/ | Orders Only | [facility] | Conversion | | | 2013 | | CONVERSION DEP [address] | Transaction, | | | | | ADELAIDE LEON | Provider Unknown | | | | | [place] | [phone] | | | | | [address] | | | | | | [phone] | | | +--------+ + + + [...] | | | | | | [place] [address] | | | | | | [phone] | | | | | | | | +--------+---------+ + + + | 06/01/ | Office | Neurology | Elaine Andrews, | | | 2019 | Visit | | MD [address]OUT | | | | | | [address] | | | | | | [place] [address] | | | | | | [phone] | | | | | | | | +--------+---------+ + + + documented as of this encounter Visit Diagnoses Not on filedocumented in this encounter"
--- OUTSIDE RECORDS SUMMARY | ~2019-03-02 | XMS | Encounter Summary ---
Demographics + + + | Address | [address] | | | [place] [address] | + + + | Home Phone | | + + + | Preferred Language | Unknown | + + + | Marital Status | Unknown | + + + | Episcopal Affiliation [...] Team Providers + +------+ + | Care Hardware Installation Coordinator Name | Role | Phone | + +------+ + PCP | Unavailable | + +------+ + Encounter Details +--------+ + + + + | Date | Type | Department | Care Team | Description | +--------+ + + + + | 08/ | Outside | Neurophysiology | Dmitri, | | | 2015 | Referral | EEG at [facility] [address] | [address] | | | | Order | [address] | [address] | | | | | Mailcode: CR120 | [place] [address] | | | | | [facility] | [phone] | | | | | [place], [place] | | | | | | [address] | | | | | | [phone] | | | +--------+ + + + [...] 1965 Medical | | | Record Number: [id number] Date of Test: 11/11/2014 Place of Service: | | | [facility] Department: EEG [facility] - [id number] SLEEP DEPRIVED | | | EEG Indication: [...] attenuates with eye opening. There are frequent obbsg-krg-bxnu | | | discharges occurring at 2 Hz with a broad generalized field, though | | | consistently with a F3-C3-P3 lead-in. Jkpjr-ybx-ozzd discharges | | | generally have no clinical correlate. Photic stimulation results in a | | | symmetric photic driving response. At 20 Hz flash frequency, there | | | is a 5 second run of otrnr-qng-bwee discharges, initially at 2 Hz | | [...] drowsy routine EEG. | | | Frequent wlqzt-ikl-idwm discharges with a generalized field (though | | | consistently with a left wojrjg-egfite-bfpdxlig lead-in), with | | | activation during hyperventilation and photic stimulation, in the | | | context of clinical history is most consistent with a primary | | | generalized epilepsy though focal onset with rapid bilateral | | | synchrony cannot be ruled out entirely. There was one possible | | | clinical event of subtle myoclonus associated with aazbe-ftz-kxan | | | discharges during photic stimulation though video quality was poor. | | | Electronically signed on 11/11/2014 at 10:34 AM SCOTT CAMARILLO | | | . 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
--- OUTSIDE RECORDS SUMMARY | ~2019-03-02 | XMS | Encounter Summary ---
Demographics + + + | Address | [address] | | | [place] [address] | + + + | Home Phone [...] Team Providers + +------+ + | Care Bond Manager Name | Role | Phone | [...] | | | | [place] | [phone] | | | | | [address] | | | | | | [phone] | | | +--------+ + + + [...] | | | | | | [place] [address] | | | | | | [phone] | | | | | | | | +--------+---------+ + + + | 06/01/ | Office | Neurology | Elaine Andrews, | | | 2019 | Visit | | MD [address]OUT | | | | | | [address] | | | | | | [place] [address] | | | | | | [phone] | | | | | | | | +--------+---------+ + + + documented as of this encounter Visit Diagnoses Not on filedocumented in this encounter"
--- OUTSIDE RECORDS SUMMARY | ~2019-03-02 | XMS | Encounter Summary ---
Demographics + + + | Address | [address] | | | [place] [address] | + + + | Home Phone | | + + + | Preferred Language | Unknown | + + + | Marital Status | | + + + | Mu-Ism Affiliation | Unknown | + + + [...] Providers + +------+ + | Care Machine Puller Name | Role | Phone | + +------+ + | Mynor Kam MD | PCP | | + +------+ + Encounter Details +--------+ + + + + | Date | Type | Department | Care Team | Description | +--------+ + + + + | 10/29/ | Orders Only | [facility] | Elaine Andrews, | | | 2019 | | NEUROLOGY [address] | [address] | | | | | [address] | [address] | | | | | [place], [place] | [place] [address] | | | | | [address] | [phone] | | | | | [phone] | | | +--------+ + + + [...] | | | | | | [place] [address] | | | | | | [phone] | | | | | | | | +--------+---------+ + + + | 06/01/ | Office | Neurology | Elaine Andrews, | | | 2019 | Visit | | MD [address] | | | | | | [address] | | | | | | [place] [address] | | | | | | [phone] | | | | | | | | +--------+---------+ + + + documented as of this encounter Visit Diagnoses Not on filedocumented in this encounter"
--- OUTSIDE RECORDS SUMMARY | ~2019-03-02 | XMS | Encounter Summary ---
Demographics + + + | Address | [address] | | | [place] [address] | + + + | Home Phone [...] Providers + +------+ + | Care Construction Rep Name | Role | Phone | + [...] [address] | | | | | [place], [place] | [address] [place], | | | | | [address] | [place] [address] | | | | | [phone] | [phone] | | | | | | | [...] | | | | | | [place] [address] | | | | | | [phone] | | | | | | | | +--------+---------+ + + + | 06/01/ | Office | Neurology | Elaine Andrews, | | | 2019 | Visit | | [address] | | | | | | [address] | | | | | | [place] [address] | | | | | | [phone] | | | | | | | | +--------+---------+ + + + documented as of this encounter Visit Diagnoses Not on filedocumented in this encounter"
--- OUTSIDE RECORDS SUMMARY | ~2019-03-02 | XMS | Encounter Summary ---
Demographics + + + | Address | [address] | | | [place] [address] | + + + | Home Phone [...] Team Providers + +------+ + | Care Geodetic Engineer Name | Role | Phone | [...] | | | | [place] | [phone] | | | | | [address] | | | | | | [phone] | | | +--------+ + + + [...] | | | | | | [place] [address] | | | | | | [phone] | | | | | | | | +--------+---------+ + + + | 06/01/ | Office | Neurology | Elaine Andrews, | | | 2019 | Visit | | MD [address] | | | | | | [address] [address] | | | | | | [place] [address] | | | | | | [phone] | | | | | | | | +--------+---------+ + + + documented as of this encounter Visit Diagnoses Not on filedocumented in this encounter"
--- OUTSIDE RECORDS SUMMARY | ~2019-03-02 | XMS | Encounter Summary ---
Demographics + + + | Address | [address] | | | [place] [address] | + + + | Home Phone [...] Team Providers + +------+ + | Care Middle School Resource Teacher Name | Role | Phone | [...] Provider Unknown | | | | | [facility] | | | | | | [address] | (Fax) | | | | | [phone] | | | +--------+ + + + [...] | | | | | | [place] [address] | | | | | | [phone] | | | | | | | | +--------+---------+ + + + | 06/01/ | Office | Neurology | Elaine Andrews, | | | 2019 | Visit | | MD [address] | | | | | | [address] | | | | | | [place] [address] | | | | | | [phone] | | | | | | | [...]
--- OUTSIDE RECORDS SUMMARY | ~2019-03-02 | XMS | Encounter Summary ---
Demographics + + + | Address | [address] | | | [place] [address] | + + + | Home Phone [...] Providers + +------+ + | Care Power Transmission Engineer Name | Role | Phone | + +------+ + | Mynor Kam MD | PCP | | + +------+ + Encounter Details +--------+ + + + + | Date | Type | Department | Care Team | Description | +--------+ + + + + | 09/21/ | Orders Only | [facility] | [facility], | | | 2019 | | PULMONOLOGY [address] | [address], | | | | | [address] | [address] | | | | | [place], [place] | [address] [place], | | | | | [address] | [place] [address] | | | | | [phone] | [phone] | | | | | | | [...] | | | | | | [place] [address] | | | | | | [phone] | | | | | | | | +--------+---------+ + + + | 06/01/ | Office | Neurology | Elaine Andrews, | | | 2019 | Visit | | [address] | | | | | | [address] | | | | | | [place] [address] | | | | | | [phone] | | | | | | | | +--------+---------+ + + + documented as of this encounter Visit Diagnoses Not on filedocumented in this encounter"
--- OUTSIDE RECORDS SUMMARY | ~2019-03-02 | XMS | Encounter Summary ---
Demographics + + + | Address | [address] | | | [place] [address] | + + + | Home Phone [...] Team Providers + +------+ + | Care Vocational Teacher Name | Role | Phone | [...] + + | 02/26/ | Telephone | [facility] | Elaine Andrews, | Follow-up | | 2019 | | NEUROLOGY [address] | MD [address] | (Reschedule ) | | | | [address] | [facility] [address] | | | | | [place], [place] | [place] [address] | | | | | [address] | [phone] | | | | | [phone] | | | +--------+ + + + [...] [place], | | | | | | [place] [address] | | | | | | [phone] | | | | | | | | +--------+---------+ + + + | 06/01/ | Office | Neurology | Elaine Andrews, | | | 2019 | Visit | | MD [address] | | | | | | [address] | | | | | | [place] [address] | | | | | | [phone] | | | | | | | | +--------+---------+ + + + documented as of this encounter Visit Diagnoses Not on filedocumented in this encounter"
--- OUTSIDE RECORDS SUMMARY | ~2019-03-02 | XMS | Encounter Summary ---
Demographics + + + | Address | [address] | | | [place] [address] | + + + | Home Phone | | + + + | Preferred Language | Unknown | + + + | Marital Status | | + + + | Rastafari Affiliation | Unknown | + + + | Race | Unknown | + + + | Ethnic Group | Unknown | + + + Author + + + | Author | [facility] | | | and [place] | + + + | Organization | [facility] | | | [...] Team Providers + +------+ + | Care Doughnut Fryer Name | Role | Phone | + [...] [address] | | | | | [place], [place] | [address] | | | | | [address] | [place] [address] | | | | | [phone] | [phone] | | | | | | | [...] | | | | | | [place] [address] | | | | | | [phone] | | | | | | | | +--------+---------+ + + + | 06/01/ | Office | Neurology | Elaine Andrews, | | | 2019 | Visit | | MD [address]OUT | | | | | | [address] | | | | | | [place] [address] | | | | | | [phone] | | | | | | | [...]
--- OUTSIDE RECORDS SUMMARY | ~2019-03-02 | XMS | Encounter Summary ---
Demographics + + + | Address | [address] | | | [place] [address] | + + + | Home Phone [...] Providers + +------+ + | Care Motor Installer Name | Role | Phone | + +------+ + | Mynor Kam MD | PCP | | + +------+ + Encounter Details +--------+ + + + + | Date | Type | Department | Care Team | Description | +--------+ + + + + | 06/26/ | Orders Only | [facility] | Matt, | | | 2017 | | PULMONOLOGY [address] | [address], | | | | | [address] | [address] | | | | | [place], [place] | [address] [place], | | | | | [address] | [place] [address] | | | | | [phone] | [phone] | | | | | | | [...] | | | | | | [place] [address] | | | | | | [phone] | | | | | | | | +--------+---------+ + + + | 06/01/ | Office | Neurology | Elaine Andrews, | | | 2019 | Visit | | [address] | | | | | | [address] | | | | | | [place] [address] | | | | | | [phone] | | | | | | | | +--------+---------+ + + + documented as of this encounter Visit Diagnoses Not on filedocumented in this encounter"
--- OUTSIDE RECORDS SUMMARY | ~2019-03-02 | XMS | Encounter Summary ---
Demographics + + + | Address | [address] | | | [place] [address] | + + + | Home Phone | | + + + | Preferred Language | Unknown | + + + | Marital Status | | + + + | Methodist Affiliation | Unknown | + + + | Race | Unknown | + + + | Ethnic Group | Unknown | + + + Author + + + | Author | [facility] | | | and [place] | + + + | Organization | [facility] | | | [...] Team Providers + +------+ + | Care Grocery Clerk Marking Name | Role | Phone | + +------+ + PCP | Unavailable | + +------+ + Encounter Details +--------+ + + + + | Date | Type | Department | Care Team | Description | +--------+ + + + + | 02/26/ | Hospital | [facility] | Fabián Salas | | | 2010 - | Encounter | [facility] | MD [address] | | | | | CENTER [address] | [address] | | | 03/06/ | | [place] | [place] [address] | | | 2010 | | [address] | [phone] | | | | | [phone] | | | +--------+ + + + [...] | | | | | | [place] [address] | | | | | | [phone] | | | | | | | | +--------+---------+ + + + | 06/01/ | Office | Neurology | Elaine Andrews, | | | 2019 | Visit | | MD [address]OUT | | | | | | [address] | | | | | | [place] [address] | | | | | | [phone] | | | | | | | | +--------+---------+ + + + documented as of this encounter Visit Diagnoses Not on filedocumented in this encounter"
--- OUTSIDE RECORDS SUMMARY | ~2019-03-02 | XMS | Encounter Summary ---
Demographics + + + | Address | [address] | | | [place] [address] | + + + | Home Phone [...] Team Providers + +------+ + | Care Shear Setter Name | Role | Phone | + +------+ + | Mynor Kam MD | PCP | | + +------+ + Encounter Details +--------+ + + + + | Date | Type | Department | Care Team | Description | +--------+ + + + + | 06/26/ | Orders Only | [facility] | Matt, | | | 2017 | | PULMONOLOGY [address] | [address], | | | | | [address] | [address] | | | | | [place], [place] | [address] [place], | | | | | [address] | [place] [address] | | | | | [phone] | [phone] | | | | | | | [...] | | | | | | [place] [address] | | | | | | [phone] | | | | | | | | +--------+---------+ + + + | 06/01/ | Office | Neurology | Elaine Andrews, | | | 2019 | Visit | | [address] | | | | | | [address] | | | | | | [place] [address] | | | | | | [phone] | | | | | | | | +--------+---------+ + + + documented as of this encounter Visit Diagnoses Not on filedocumented in this encounter"
--- OUTSIDE RECORDS SUMMARY | ~2019-03-02 | XMS | Encounter Summary ---
Demographics + + + | Address | [address] | | | [place] [address] | + + + | Home Phone | | + + + | Preferred Language | Unknown | + + + | Marital Status | Unknown | + + + | Bahai Affiliation | Unknown | + + + | Race | Unknown | + + + | Ethnic Group | Unknown | + + + Author + + + | Author | [facility] | + + + | Organization | [facility] | + + + | Address | Unknown | + + + | Phone | Unavailable | + + + Care Team Providers + +------+ + | Care Advertising Display Rotator Name | Role | Phone | + +------+ + PCP | Unavailable | + +------+ + Encounter Details +--------+ + + + + | Date | Type | Department | Care Team | Description | +--------+ + + + + | 08/ | Outside | Neurophysiology | Dmitri, | | | 2015 | Referral | EEG at [facility] [address] | [address] | | | | Order | [address] | [address] | | | | | Mailcode: CR120 | [place] [address] | | | | | [facility] | [phone] | | | | | [place], [place] | | | | | | [address] | | | | | | [phone] | | | +--------+ + + + [...] 1965 Medical | | | Record Number: [id number] Date of Test: 11/11/2014 Place of Service: | | | [facility] Department: EEG [facility] - [id number] SLEEP DEPRIVED | | | EEG Indication: [...] attenuates with eye opening. There are frequent wlccv-egg-rvtm | | | discharges occurring at 2 Hz with a broad generalized field, though | | | consistently with a F3-C3-P3 lead-in. Whokc-qyl-mnmy discharges | | | generally have no clinical correlate. Photic stimulation results in a | | | symmetric photic driving response. At 20 Hz flash frequency, there | | | is a 5 second run of ltzjs-bbg-msfn discharges, initially at 2 Hz | | [...] drowsy routine EEG. | | | Frequent tqckj-clw-cehk discharges with a generalized field (though | | | consistently with a left hvinnf-fkrimg-xicuhqye lead-in), with | | | activation during hyperventilation and photic stimulation, in the | | | context of clinical history is most consistent with a primary | | | generalized epilepsy though focal onset with rapid bilateral | | | synchrony cannot be ruled out entirely. There was one possible | | | clinical event of subtle myoclonus associated with fzqgl-tkw-lely | | | discharges during photic stimulation though video quality was poor. | | | Electronically signed on 11/11/2014 at 10:34 AM SCOTT CAMARILLO | | | . 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
--- OUTSIDE RECORDS SUMMARY | ~2019-03-02 | XMS | Encounter Summary ---
Demographics + + + | Address | [address] | | | [place] [address] | + + + | Home Phone | | + + + | Preferred Language | Unknown | + + + | Marital Status | | + + + | Catholic Affiliation | Unknown | + + + | Race | Unknown | + + + | Ethnic Group | Unknown | + + + Author + + + | Author | [facility] | | | and [place] | + + + | Organization | [facility] | | | [...] Team Providers + +------+ + | Care Emergency Medical Tech Name | Role | Phone | [...] Provider Unknown | | | | | [facility] | | | | | | [address] | (Fax) | | | | | [phone] | | | +--------+ + + + [...] | | | | | | [place] [address] | | | | | | [phone] | | | | | | | | +--------+---------+ + + + | 06/01/ | Office | Neurology | Elaine Andrews, | | | 2019 | Visit | | [address] | | | | | | [address] | | | | | | [place] [address] | | | | | | [phone] | | | | | | | [...]
--- OUTSIDE RECORDS SUMMARY | ~2019-03-02 | XMS | Encounter Summary ---
Demographics + + + | Address | [address] | | | [place] [address] | + + + | Home Phone | | + + + | Preferred Language | Unknown | + + + | Marital Status | | + + + | Zoroastrian Affiliation | Unknown | + + + | Race | Unknown | + + + | Ethnic Group | Unknown | + + + Author + + + | Author | [facility] | | | and [place] | + + + | Organization | [facility] | | [...] Team Providers + +------+ + | Care Claims Counsel Name | Role | Phone | + [...] | | | | [place] | [phone] | | | | | [address] | | | | | | [phone] | | | +--------+ + + + [...] | | | | | | [place] [address] | | | | | | [phone] | | | | | | | | +--------+---------+ + + + | 06/01/ | Office | Neurology | Elaine Andrews, | | | 2019 | Visit | | MD [address] | | | | | | [address] | | | | | | [place] [address] | | | | | | [phone] | | | | | | | | +--------+---------+ + + + documented as of this encounter Visit Diagnoses Not on filedocumented in this encounter"
--- OUTSIDE RECORDS SUMMARY | ~2019-03-02 | XMS | Encounter Summary ---
Demographics + + + | Address | [address] | | | [place] [address] | + + + | Home Phone [...] Team Providers + +------+ + | Care Material Expeditor Name | Role | Phone | + +------+ + PCP | Unavailable | + +------+ + Encounter Details +--------+ + + + + | Date | Type | Department | Care Team | Description | +--------+ + + + + | 01/08/ | Hospital | [facility] | Fabián Salas | | | 2010 - | Encounter | [facility] | MD Miller [address] | | | | CENTER [address] | [facility] | | | 02/04/ | | [place] | [place] [address] | | | 2010 | | [address] | [phone] | | | | | [phone] | | | +--------+ + + + [...] the past several months. 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 [place] is [...] | | | | | | [place] [address] | | | | | | [phone] | | | | | | | | +--------+---------+ + + + | 06/01/ | Office | Neurology | Elaine Andrews, | | 2019 | Visit | | MD Kim STOUT | | | | | | [place] | | | | | | [place] [address] | | | | | | [phone] | | | | | | | [...] [facility] | | | activity | Performed: [place] | | [facility] | | | | [facility] | | MEDICAL | | | | [facility], [facility] [address] , | | [place] - | | | | [place] [address] | | LABORATORY | | | | CLIA: [id number] | | | | + + + + + + + + | Specimen | + + | | + + + + + + + | Performing | Address | City/State/Zipcode | Phone Number | | Organization | | | | + + + + + | [facility] | [address] | [place], [place] | [phone] | | [facility] | | [address] | | | - LABORATORY | | | | + + + + + | [facility] | [address] | [place], [place] | | | [facility] | | [address] | | | - LABORATORY | | [...] [facility] | | | activity | Performed: [place] | | [facility] | | | | [facility] | | MEDICAL | | | | Center, [address], | | CENTER - | | | | [place] [address] | | LABORATORY | | | | CLIA: [id number] | | | | + + + + + + + + | Specimen | + + | | + + + + + + + | Performing | Address | City/State/Zipcode | Phone Number | | Organization | | | | + + + + + | [facility] | [address] | [place] | [phone] | | [facility] | | [address] | | | - LABORATORY | | | | + + + + + | [facility] | [address] | [place], [place] | | | [facility] | | [address] | | | - LABORATORY | | [...] [address], | | | | | | [place] [address] | | | | | | CLIA: [id number] | | | | + + + + + + + + | Specimen | + + | | + + + + + + + | Performing | Address | City/State/Zipcode | Phone Number | | Organization | | | | + + + + + | [facility] | [address] | [place] | [phone] | | [facility] | | [address] | | | - LABORATORY | | | | + + + + + | [facility] | [address] | [place] | | | [facility] | | [address] | | | - LABORATORY | | [...] | | | | | agreement with [employer] | | | | | | [employer] | | | | | | [...] Hospital | | | | | | [facility], [address], | | | | | | [place] [address] | | | | | | DIALLOIA: [id number] | | | | + + + + + + + + | Specimen | + + | | + + + + + + + | Performing | Address | City/State/Zipcode | Phone Number | | Organization | | | | + + + + + | [facility] | [address] | [place] | [phone] | | [facility] | | [address] | | | - LABORATORY | | | | + + + + + | [facility] | [address] | [place] | | | [facility] | | [address] | | | - LABORATORY | | [...] Negative A | 0.0 - 1.2 | [facility] | | | ratio | Lupus Inhibitor [...] Performed: | | | | | | [facility] | | | | | | [facility], [address] | | | | | | , [place] [address] | | | | | | CLIA: [id number] | | | | + + + + + + + + | Specimen | + + | | + + + + + + + | Performing | Address | City/State/Zipcode | Phone Number | | Organization | | | | + + + + + | [facility] | [address] | [place] | [phone] | | [facility] | | [address] | | | - LABORATORY | | | | + + + + + | [facility] | [address] | [place] | | | [facility] | | [address] | | | - LABORATORY | | [...] [address], | | | | | | [place] [address] | | | | | | CLIA: [id number] | | | | + + + + + + + + | Specimen | + + | | + + + + + + + | Performing | Address | City/State/Zipcode | Phone Number | | Organization | | | | + + + + + | [facility] | [address] | [place] | [phone] | | [facility] | | [address] | | | - LABORATORY | | | | + + + + + | [facility] | [address] | [place] | | | [facility] | | [address] | | | - LABORATORY | | [...] [facility] | | | Antigen | [facility] | | MEDICAL | | | | [facility], W , | | CENTER - | | | | [place] [address] | | LABORATORY | | | | CLIA: [id number] | | | | + + + + + + + + | Specimen | + + | | + + + + + + + | Performing | Address | City/State/Zipcode | Phone Number | | Organization | | | | + + + + + | [facility] | [address] | [place], [place] | [phone] | | [facility] | | [address] | | | - LABORATORY | | | | + + + + + | [facility] | [address] | [place], [place] | | | [facility] | | [address] | | | - LABORATORY | | [...] [facility] | | | Time, | Performed: [place] | | [facility] | | | Control | [facility] | | MEDICAL | | | | Center, [address] , | | CENTER - | | | | [place] [address] | | LABORATORY | | | | CLIA: [id number] | | | | + + + + + + + + | Specimen | + + | | + + + + + + + | Performing | Address | City/State/Zipcode | Phone Number | | Organization | | | | + + + + + | [facility] | [address] | [place], [place] | [phone] | | [facility] | | [address] | | | - LABORATORY | | | | + + + + + | [facility] | [address] | [place], [place] | | | [facility] | | [address] | | | - LABORATORY | | [...] [place], | | | | | | [place] [address] | | | | | | CLIA: [id number] | | | | + + + + + + + + | Specimen | + + | | + + + + + + + | Performing | Address | City/State/Zipcode | Phone Number | | Organization | | | | + + + + + | [facility] | [address] | [place] | [phone] | | [facility] | | [address] | | | - LABORATORY | | | | + + + + + | [facility] | [address] | [place] | | | [facility] | | [address] | | | - LABORATORY | | [...] | | | N ACTIVITY | Performed: [place] | | [facility] | | | | [facility] | | MEDICAL | | | | Center, [address], | | CENTER - | | | | [place] [address] | | LABORATORY | | | | MAYNOR: [id number] | | | | + + + + + + + + | Specimen | + + | | + + + + + + + | Performing | Address | City/State/Zipcode | Phone Number | | Organization | | | | + + + + + | [facility] | [address] | [place], [place] | [phone] | | [facility] | | [address] | | | - LABORATORY | | | | + + + + + | [facility] | [address] | [place] | | | [facility] | | [address] | | | - LABORATORY | | [...] [address] | [place] | [phone] | | [facility] | | [address] | | | - LABORATORY | | | | + + + + + | [facility] | [address] | [place] | | | [facility] | | [address] | | | - LABORATORY | | [...] + | [facility] | [address] | [place] | [phone] | | [facility] | | [address] | | | - LABORATORY | | | | + + + + + | [facility] | [address] | [place] | | | [facility] | | [address] | | | - LABORATORY | | [...] + | [facility] | [address] | [place] | [phone] | | [facility] | | [address] | | | - LABORATORY | | | | + + + + + | [facility] | [address] | [place], [place] | | | [facility] | | [address] | | | - LABORATORY | | [...] + | [facility] | [address] | [place], [place] | [phone] | | [facility] | | [address] | | | - LABORATORY | | | | + + + + + | [facility] | [address] | [place], [place] | | | [facility] | | [address] | | | - LABORATORY | | [...] [address] | [place] | [phone] | | [facility] | | [address] | | | - LABORATORY | | | | + + + + + | [facility] | [address] | [place] | | | [facility] | | [address] | | | - LABORATORY | | [...] [address] | [place] | [phone] | | [facility] | | [address] | | | - LABORATORY | | | | + + + + + | [facility] | [address] | [place] | | | [facility] | | [address] | | | - LABORATORY | | | | + + + + + documented in this encounter Visit Diagnoses Not on filedocumented in this encounter"
--- OUTSIDE RECORDS SUMMARY | ~2019-03-02 | XMS | Encounter Summary ---
Demographics + + + | Address | [address] | | | [place] [address] | + + + | Home Phone [...] Team Providers + +------+ + | Care All Around Presser Name | Role | Phone | + [...] | | | | [place] | [phone] | | | | | [address] | | | | | | [phone] | | | +--------+ + + + [...] | | | | | | [place] [address] | | | | | | [phone] | | | | | | | | +--------+---------+ + + + | 06/01/ | Office | Neurology | Elaine Andrews, | | | 2019 | Visit | | MD Kim STOUT | | | | | | [address] [address] | | | | | | [place] [address] | | | | | | [phone] | | | | | | | | +--------+---------+ + + + documented as of this encounter Visit Diagnoses Not on filedocumented in this encounter"
--- OUTSIDE RECORDS SUMMARY | ~2019-03-02 | XMS | Encounter Summary ---
Demographics + + + | Address | [address] | | | [place] [address] | + + + | Home Phone | | + + + | Preferred Language | Unknown | + + + | Marital Status | | + + + | Caodaism Affiliation | Unknown | + + + | Race | Unknown | + + + | Ethnic Group | Unknown | + + + Author + + + | Author | [facility] | | | and [place] | + + + | Organization | [facility] | | | [...] Team Providers + +------+ + | Care Sourcing Assistant Name | Role | Phone | + +------+ + | Mynor Kam MD | PCP | | + +------+ + Encounter Details +--------+ + + + + | Date | Type | Department | Care Team | Description | +--------+ + + + + | 06/11/ | Orders Only | [facility] | Matt, | | | 2016 | | PULMONOLOGY [address] | [address], | | | | | [address] | [address] | | | | | [place], [place] | [place], | | | | | [address] | [place] [address] | | | | | [phone] | | | | | | | [...] | | | | | | [place] [address] | | | | | | [phone] | | | | | | | | +--------+---------+ + + + | 06/01/ | Office | Neurology | Elaine Andrews, | | | 2019 | Visit | | [address] | | | | | | [place] | | | | | | [place] [address] | | | | | | [phone] | | | | | | | | +--------+---------+ + + + documented as of this encounter Visit Diagnoses Not on filedocumented in this encounter"
--- OUTSIDE RECORDS SUMMARY | ~2019-03-02 | XMS | Clinical Summary ---
Demographics + + + | Address | [address] | | | [place] [address] | + + + | Home Phone | | + + + | Preferred Language | Unknown | + + + | Marital Status | | + + + | Caodaism Affiliation | Unknown | + + + | Race | Unknown | + + + | Ethnic Group | Unknown | + + + Author + + + | Author | [facility] (Historical as of | | | 11-21-18) | + + + | Organization | [facility] (Historical as of | | | 11-21-18) [...] Team Providers + +------+ + | Care Sanitation Truck Driver Name | Role | Phone [...] | 0/20 | | e | | 92441 units capsule | | | | 19 [...] restrictive lung disease, | | followed by music promoter. 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
--- OUTSIDE RECORDS SUMMARY | ~2019-03-02 | XMS | Encounter Summary ---
Demographics + + + | Address | [address] | | | [place] [address] | + + + | Home Phone [...] Team Providers + +------+ + | Care Ethylene Compressor Operator Name | Role | Phone | + +------+ + | Mynor Kam MD | PCP | | + +------+ + Encounter Details +--------+ + + + + | Date | Type | Department | Care Team | Description | +--------+ + + + + | 06/26/ | Orders Only | [facility] | [facility], | | | 2019 | | PULMONOLOGY [address] | [address], | | | | | [address] | [address] | | | | | [place], [place] | [place], | | | | | [address] | [place] [address] | | | | | [phone] | [phone] | | | | | | | [...] | | | | | | [place] [address] | | | | | | [phone] | | | | | | | | +--------+---------+ + + + | 06/01/ | Office | Neurology | Elaine Andrews, | | | 2019 | Visit | | [address] | | | | | | [place] | | | | | | [place] [address] | | | | | | [phone] | | | | | | | | +--------+---------+ + + + documented as of this encounter Visit Diagnoses Not on filedocumented in this encounter"
--- OUTSIDE RECORDS SUMMARY | ~2019-03-02 | XMS | Clinical Summary ---
Demographics + + + | Address | [address] | | | [place] [address] | + + + | Home Phone [...] Team Providers + +------+ + | Care Nat Instructor Name | Role | Phone | [...] | | | | | | [place] [address] | | | | | | [phone] | | | | | | | | +--------+---------+ + + + | 06/01/ | Office | Neurology | Elaine Andrews, | | | 2019 | Visit | | MD [address] | | | | | | [place] | | | | | | [place] [address] | | | | | | [phone] | | | | | | | [...] +--------+ +---------+--------+ | MEDICARE | MEDICA | [id number] | 10/06/19 | [phone] | | Medica | | | RE | | 16-Pre | 5 | | re | | | PART A | | sent | | | | | | AND B | | | | | | + +--------+ +--------+ +---------+--------+ | [employer] | [employer] | [id number] | 11/10/19 | [phone] | | Medica | | MEDICAID HMO [...] [place] | | | 8 (Home) | [address] | + +--------+ +--------+ + + Advance Directives + + + + + | Type | Date Recorded | Patient | Explanation | | | | Boiler Out | | + + + + + | Power of | | | | | Rail Layer | | | | + + + + + | Advance | | | | | Directive | | | | + + + + +
--- OUTSIDE RECORDS SUMMARY | ~2019-03-02 | XMS | Encounter Summary ---
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
--- OUTSIDE RECORDS SUMMARY | ~2019-03-02 | XMS | Encounter Summary ---
Demographics + + + | Address | [address] | | | [place] [address] | + + + | Home Phone [...] Team Providers + +------+ + | Care Timber Sizer Operator Name | Role | Phone | + +------+ + | Mynor Kam MD | PCP | | + +------+ + Encounter Details +--------+ + + + + | Date | Type | Department | Care Team | Description | +--------+ + + + + | 10/29/ | Orders Only | [facility] | Elaine Andrews, | | | 2019 | | NEUROLOGY [address] | [address] | | | | | [address] | [address] | | | | | [place], [place] | [place] [address] | | | | | [address] | [phone] | | | | | [phone] | | | +--------+ + + + [...] | | | | | | [place] [address] | | | | | | [phone] | | | | | | | | +--------+---------+ + + + | 06/01/ | Office | Neurology | Elaine Andrews, | | | 2019 | Visit | | MD Kim STOUT | | | | | | [address] | | | | | | [place] [address] | | | | | | [phone] | | | | | | | | +--------+---------+ + + + documented as of this encounter Visit Diagnoses Not on filedocumented in this encounter"
[~2019-03-02 22:08] MED LIST changes: +AMITRIPTYLINE H25 MG PO
[2019-03-03] MEDS ORDERED: PROMETHAZINE HC25 M1 PR (00:14)
== END 2019-03-03 00:27 | disposition home or self-care (01) ==
LOC: ED 22:08
DX: K52.9 Noninfective gastroenteritis and colitis, unspecified (principal); E11.9 Type 2 diabetes mellitus without complications; Z87.01 Personal history of pneumonia (recurrent); J45.909 Unspecified asthma, uncomplicated; Z79.899 Other long term (current) drug therapy; Z79.4 Long term (current) use of insulin
CPT/HCPCS: 80053; 81001; 85025; 87502; 96361; 96374; 96376; 99284-25; J2405; J7030

== ENCOUNTER 2019-05-15 15:09 | Observation (INO) | payer MEDICARE, OTHER ==
[~2019-05-15] VITALS: Ht 167.6 cm; Wt 145.0 kg
[~2019-05-15 15:09] MED LIST changes: +BREO ELLIPTA 21 EACH INH; +DULOXETINE HCL60 MG PO; +HUMALOG100 UNIT/2 SUB-Q; +IBUPROFEN200 MG PO; +LISINOPRIL20 MG PO; +METOPROLOL SUC100 MG PO; +PANTOPRAZOLE SO40 MG PO; +PROMETHAZINE HC25 M1 PR; +SUCRALFATE1 GM PO
--- OUTSIDE RECORDS SUMMARY | 2019-05-15 15:12 | XMS ---
PreManage Notification: FEDERICO SALMON Security Renal Medicine Physician Events No recent Security Events currently on file CRITERIA MET - [facility] - 2 Visits in 30 Days CARE PROVIDERS EMERSON RICHARD Physician Government Affairs Director 12/03/2017-Current PHONE: Unknown Kirk Ambrocio Sccm Administrator/Compress Trucker 12/31/2017-Current PHONE: [phone] Kirk Ambrocio Primary Care 12/31/2017-Current PHONE: [phone] FRANCIS RICHARD Primary Care Current PHONE: [phone] [facility] Treatment Current [place] PHONE: Unknown [facility] Current Orthopedic Surgery \T\ Fracture Clinic PHONE: Unknown Earl has no Care Guidelines for this patient. Care History Medical/Surgical 07/28/2017 [facility] - PCP office has been notified of [...] ED please contact Community Health WorkerStacy at [phone]. These are guidelines and the provider should exercise clinical judgment when providing care. E.D. VISIT COUNT (12 MO.) 6 [facility] TOTAL 6 NOTE: Visits indicate total known visits. 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) drug therapy - Personal history of pneumonia (recurrent) 12/18/2018 17:04 [facility] [place] TYPE: Emergency COMPLAINT: - LT ARM PAIN DIAGNOSES: - 1 Type 2 diabetes mellitus without complications - Unspecified asthma, uncomplicated - Lesion of ulnar nerve, left upper limb - 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 - Other long wall mining machine helper (current) drug therapy - Pain in left arm - Essential (primary) hypertension - Personal history of pneumonia (recurrent) 08/09/2018 20:38 [facility] [place] TYPE: Emergency COMPLAINT: - R KNEE/HIP PAIN DIAGNOSES: - 1 Type 2 diabetes mellitus without complications - Acquired absence of both cervix and uterus - Unspecified fall, initial encounter - Contusion of right knee, initial encounter - Unspecified asthma, uncomplicated - Pain in right hip - 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 - Personal history of pneumonia (recurrent) - Contusion of right hip, initial encounter 07/09/2018 03:17 [facility] [place] TYPE: Emergency COMPLAINT: - BODY ACHES DIAGNOSES: - Personal history of pneumonia (recurrent) - 1 Type 2 diabetes mellitus without complications - Other longterm (current) drug therapy - Fibromyalgia - Acquired absence of other specified parts of digestive tract - Unspecified asthma, uncomplicated - FDC (current) use of insulin - Chronic pain syndrome INPATIENT VISIT TRACKING (12 MO.) 05/11/2019 01:56 [facility] TYPE: Observation COMPLAINT: - UPPER GI BLEED DIAGNOSES: - Anxiety disorder, unspecified - Unspecified chronic gastritis without bleeding - Fibromyalgia - Body mass index (BMI) 50.0-59.9, adult - Hematemesis - 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 - Acute posthemorrhagic anemia - Other disorders of lung - Chronic or unspecified gastric ulcer with hemorrhage - Essential (primary) hypertension - Gastro-esophageal reflux disease without esophagitis - Dependence on supplemental oxygen - Helicobacter pylori as the cause of diseases classd elswhr - 1 Type 2 diabetes mellitus without complications - Do not resuscitate - Morbid (severe) obesity due to excess calories - Chronic obstructive pulmonary disease, unspecified - Other long wall mining machine helper (current) drug therapy [email or web address]
--- NOTE | 2019-05-15 19:50 | NUR ---
PT ARRIVED TO THE FLOOR VIA STRETCHER AND AMBULATED TO THE BED ON HER OWN. SHE DENIES PAIN AND SOB. BUT SHE DOES STATE SHE USES 3 LNC OF O2 AT HOME. SHE IS TUCKED INTO BED AND ORIENTED TO THE UNIT AND CALL LIGHT. STARTING ADMISSION HX AND WILL PLACE ON TELE.
--- NOTE | 2019-05-15 21:50 | NUR ---
ASSESSMENT COMPLETE, SCHEDULED LANTUS AND PROTONIX ADMINISTERED (SEE EMAR). PT RECENTLY ATE AT 2100, PER TELEPHARMACY HOLD CARAFATE UNTIL APPROX 2300 THEN OKAY TO GIVE. PT A/OX4, VSS. IV FLUIDS INFUSING, SITE WNL. PT REPORTS MINIMAL NAUSEA, DENIES NEED FOR MEDICATION AT THIS TIME. NO FURTHER NEEDS, CALL LIGHT IN REACH.
--- NOTE | 2019-05-15 22:10 | NUR ---
HELPED PT TO THE BATHROOM AND BACK TO BED. BLOOD SUGAR DONE AND CHARTED. BEDSIDE TABLE AND CALL LIGHT IN REACH.
--- NOTE | 2019-05-15 23:05 | NUR ---
SCHEDULED CARAFATE ADMINSITERED (SEE EMAR). NO FURTHER NEEDS, CALL LIGHT IN REACH.
--- NOTE | 2019-05-15 23:55 | NUR ---
UPDATED PRIMARY RN ON PT HR RATE INCREASED AND SUSTAINED IN THE 120'S. PRIMARY RN STATES PT IS NAUSEATED AND SHE IS GOING TO GIVE ZOFRAN, AND WILL REASSESS PT FOR PAIN.
--- NOTE | 2019-05-16 00:18 | NUR ---
IN ROOM TO ASSESS PT AFTER HEART RATE SUSTAINED IN THE 120S, 30 MINUTES AFTER GETTING UP TO BATHROOM. PT COMPLAINS OF BEING COLD, SLIGHT NAUSEA, AND PT STATES, "FIBROMYALGIA PAIN IN MY LEGS". BLOOD PRESSURE SLIGHTLY HYPERTENSIVE IN 150'S. TEMPERATURE WNL. GIVEN A WARM BLANKET. DISCUSSED GIVING PT PAIN AND NAUSEA PRN MEDICATION WITH PRIMARY NURSE.
--- NOTE | 2019-05-16 00:29 | NUR ---
PT ON TELE#6, HR SUSTAINING BETWEEN 118-125. PT REPORTING NAUSEA AND PAIN IN ABDOMEN AND LEGS. BP WNL, PT DENIES CHEST PAIN. PRN ZOFRAN AND PAIN MEDICATION GIVEN (SEE EMAR). WILL MONITOR.
--- NOTE | 2019-05-16 01:17 | NUR ---
DR HILL MADE AWARE OF PT'S TRENDING HR. PT ON TELE#6, HR TRENDING 119-MID 120'S, SUSTAINING. TINUS TACHYCARDIA. BP STABLE AND UO FOR SHIFT 857. PT CONTINUES TO REPORT DIZZINESS. DR HILL MADE AWARE OF ALL INFORMATION ABOVE, NO NEW ORDERS. PER DR HILL, NO NEED TO CALL LONG PT REMAINS IN SINUS RHYTHM. WILL MONITOR AND NOTIFY MD IF RHYTHM CHANGES OR IF RATE CONTINUES TO RISE. CCU AWARE.
--- NOTE | 2019-05-16 04:28 | NUR ---
PT IV PUMP ALARMING. NEW BAG OF IV FLUIDS PROVIDED PER ORDER. COOL CLOTH AND ICE WATER PROVIDED. NO OTHER NEEDS, CALL LIGHT IN REACH.
--- NOTE | 2019-05-16 06:56 | NUR ---
IN ROOM TO ADMINISTER MEDICATION AND DO AN ASSESSMENT ON PT PRIMARY RN WAS BUSY. PT REPORTS ABD PAIN 11/14 BUT DENIES NEED FOR TYLENOL AT THIS TIME. PT REPORTS NO BM SINCE BUT DENIES NEED FOR STOOL SOFTENERS AT THIS TIME. SHE DENIES ANY BLOOD IN HER URINE. PT DENIES FURTHER NEEDS CALL LIGHT IS CLOSE.
--- NOTE | 2019-05-16 07:30 | NUR ---
BEDSIDE REPORT RECEIVED FROM JOCELYNE LOUIS. WHITE BOARD UPDATED. ALL QUESTIONS ANSWERED. PATIENT AWAKE SITTING UP IN BED. BREAKFAST ORDERED FOR HER. NO OTHER NEEDS AT THIS TIME.
--- NOTE | 2019-05-16 07:35 | NUR ---
PATIENT SITTING UP IN BED. CALL LIGHT WITHIN REACH. NO OTHER NEEDS AT THIS TIME
--- NOTE | 2019-05-16 09:31 | NUR ---
PATIENT RESTING IN BED. IN ROOM. VITAL SIGNS AND I&O DONE. CALL LIGHT WITHIN REACH. NO OTHER NEEDS AT THIS TIME
--- NOTE | 2019-05-16 09:45 | NUR ---
CALL LIGHT ANSWERED. PATIENT ASKS FOR WARM BLANKET. PATIENT RESTING IN BED. WARM BLANKET PROVIDED. CALL LIGHT WITHIN REACH. NO OTHER NEEDS AT THIS TIME
--- NOTE | 2019-05-16 11:11 | NUR ---
FIRST UNIT OF BLOOD STARTED AT 1100. PATIENT TOLERATING WELL.
--- NOTE | 2019-05-16 11:49 | NUR ---
CALL LIGHT ANSWERED. PATIENT RESTING IN BED. IN ROOM. PATIENT GOES TO USE THE BATHROOM. ONE PERSON ASSISTING. LINENS CHANGED. PATIENT BACKS TO BED. CALL LIGHT WITHIN REACH. NO OTHER NEEDS AT THIS TIME
--- NOTE | 2019-05-16 13:18 | NUR ---
BLOOD FINISHED INFUSING AT 1310. VSS. TEMPERATURE WNL. 2ND UNIT OF BLOOD TO BE HUNG WITHIN 10 MIN.
--- NOTE | 2019-05-16 13:24 | NUR ---
PATIENT RESTING IN BED. AND RN'S IN ROOM. VITAL SIGNS DONE BY RN. I&O DONE. CALL LIGHT WITHIN REACH. NO OTHER NEEDS AT THIS TIME
--- NOTE | 2019-05-16 13:31 | NUR ---
2ND UNIT OF BLOOD STARTED AT 1325. AT BEDSIDE. BOTH AND PATIETN SLEEPING/RESTING WITH EYES CLOSED. RESP RATE EVEN AND UNLABORED.
--- NOTE | 2019-05-16 17:39 | NUR ---
PATIENT SITTING UP IN BED. IN ROOM. VITAL SIGNS AND I&O DONE. CALL LIGHT WITHIN REACH. NO OTHER NEEDS AT THIS TIME
--- NOTE | 2019-05-16 18:05 | NUR ---
PT CALLED NURSE IN TO PLACE CHUCKS UNDERNEATH HER D/T BLEEDING. ASKED IF THIS RN COULD SEE BLEEDING SOURCE. PATIENT FOUND TO HAVE AN AREA BETWEEN ANUS AND VAGINA ON LEFT INNER BUTTOCK THAT IS DRAINING PURULENT BLOODY, FOUL SMELLING SUBSTANCE. ABLE TO EXPRESS MORE WHEN PUSHED ON. DR HILL NOTIFIED TO COME ASSESS FINDING. DR PATEL CALLED.
--- NOTE | 2019-05-16 18:17 | NUR ---
3L 02 VIA NC-- BASELINE. SOB WITH EXERTION. 2 UNITS PRBC TODAY. H/H IMPROVED, BUT WBC ELEVATED. FOUND AREA OF POSSIBLE INFECTION IN PERINEUM-- DRAINING PURULENT BLOODY, FOUL SMELLING SUBSTANCE. SBA TO BATHROOM. LR @ 75. TELE 6. HR IMPROVED. HR STEADY IN 80s NOW. ACCU CHECKS.
--- NOTE | 2019-05-16 19:15 | NUR ---
SHIFT REPORT RECEIVED FROM HARIKA WOLF AT BEDSIDE. PT RESTING IN BED, TELE#[address], HR 80, SINUS RHYTHM. IV FLUIDS INFUSING AT 75 MLS/HR, SITE WNL. SMALL AREA ON LEFT INNER BUTTOCKS ASSESSED, BLOODY PURULENT DRAINAGE NOTED, EXPRESSED WHEN PUSHED BY HARIKA LOUIS. FOUL SMELLING. PER HARIKA RN, DR HILL AWARE. WILL MONITOR FOR CHANGES. PT REPORTS HEADACHE, WISHING TO HAVE PRN TYLENOL BROUGHT WITH EVENING MEDS. NO FURTHER NEEDS, CALL LIGHT IN REACH.
--- NOTE | 2019-05-16 19:29 | NUR ---
HELPED PT TO THE BATHROOM AND BACK TO BED. PER HER REQUEST I GAVE HER A HAND TOWEL, WASH CLOTH AND FRESH ICE WATER. BEDSIDE TABLE AND CALL LIGHT IN REACH. GARBAGES EMPTIED.
--- NOTE | 2019-05-16 20:35 | NUR ---
ASSESSMENT COMPLETE, SCHEDULED MEDS GIVEN (SEE EMAR). PT A/OX4, VSS. REPORTS 9/10 GENERALIZED PAIN ALONG WITH HEADACHE. PRN PAIN MEDICATION GIVEN (SEE EMAR). BS 91, PT VERBALIZES AWARENESS WHEN SHE IS HYPOGLYCEMIC. WILL MONITOR FOR CHANGES. REPORTS MINIMAL INTERMITTENT NAUSEA, DECLINES NAUSEA MEDICATION. PT OFFERED NIO FOR SENNA R/T BOWEL PATTERNS, PT DECLINES AND STATES, "IF I DON'T HAVE ONE BY TOMORROW THEN WE CAN". SNACK PROVIDED PER REQUEST.PT DENIES FURTHER NEEDS, CALL LIGHT IN REACH. IV SITE WNL, FLUIDS INFUSING AT 75MLS/HR.
--- NOTE | 2019-05-16 20:38 | NUR ---
VITALS AND I &OS DONE AND CHARTED. FRESH WATER GIVEN. BEDSIDE TABLE AND CALL LIGHT IN REACH. BLOOD SUGAR DONE AND CHARTED WELL. GARBAGES EMPTIED, ROOM CLEANED UP.
--- NOTE | 2019-05-16 23:15 | NUR ---
this rn in room to answer call light. fresh water, beef broth, and pillow picked up from floor. no further needs, iv site wnl. call light in reach.
--- NOTE | 2019-05-17 01:21 | NUR ---
ASSESSMENT COMPLETE, NO NEW CHANGES OR CONCERNS. PT REPORTING 6-7/10 TOLERABLE PAIN. DECLINES NEED OF PAIN MEDICATION. TELE#[address], HR 92, SINUS RHYTHM. 3LNC, 02 SAT 98%. REPORTING MINIMAL SOB, LUNG SOUNDS CLEAR AND DIMINISHED. PT REQUESTING BREATHING TX BUT WISHES TO WAIT UNTIL THIS AM. NO CHANGE REGARDING ABCESS/WOUND TO BUTTOCKS. WILL MONITOR. IV FLUIDS INFUSING AT 75MLS/HR, SITE WNL. NO FURTHER NEEDS, CALL LIGHT IN REACH.
--- NOTE | 2019-05-17 03:22 | NUR ---
PT RESTING IN BED WITH EYES CLOSED, 3LNC IN PLACE. TELE#6, SINUS RHYTHM, HR 90. NO DISTRESS NOTED, CALL LIGHT IN REACH.
--- NOTE | 2019-05-17 04:15 | NUR ---
ASSISTED PT TO BATHROOM SBA WITH FWW. PT BACK TO BED, CALL LIGHT IN REACH. IV FLUIDS INFUSING, SITE WNL. DENIES FURTHER NEEDS, CALL LIGHT IN REACH.
--- NOTE | 2019-05-17 05:16 | NUR ---
PT HAD A KELLEN, SLEPT OFF AND ON THIS SHIFT. VSS, TELE#[address], HR SINUS RHYTHM. 3LNC IN PLACE, CHRONIC. SBA WITH FWW, USES CALL LIGHT APPROPERIATELY. IV FLUIDS INFUSING AT 75MLS/HR, SITE WNL. 60G CARB DIET, TOLERATING WELL. MINIMAL NAUSEA, SELF RESOLVED. ABCESS/OPEN SORE TO LEFT INNER BUTTOCKS, DRAINING PURLENT BROWN/RED OUTPUT. AWARE.
--- NOTE | 2019-05-17 05:57 | NUR ---
SCHEDULED CARAFATE ADMINISTERED (SEE EMAR). NO FURTHER NEEDS VERBALIZED, CALL LIGHT IN REACH.
--- NOTE | 2019-05-17 06:24 | NUR ---
new bag of iv fluids hung and infusing at 75mls/hr, site wnl. no further needs, call light in reach.
--- NOTE | 2019-05-17 06:29 | NUR ---
VITALS AND I&OS DONE AND CHARTED. FRESH ICE WATER GIVEN. GARBAGES EMPTIED. REPLACED BATTERIES IN PT'S FAN PER HER REQUEST. BEDSIDE TABLE AND CALL LIGHT IN REACH.
--- NOTE | 2019-05-17 07:25 | NUR ---
PT RESTING, EYES CLOSED. PT'S RESPIRATIONS ARE EVEN AND NON LABORED. PT HAS NO NOTABLE DISTRESS. CALL LIGHT WITHIN REACH.
--- NOTE | 2019-05-17 07:37 | NUR ---
PATIENT SLEEPING. CALL LIGHT WITHIN REACH.
--- NOTE | 2019-05-17 09:20 | NUR ---
PATIENT RESTING IN BED. VITAL SIGNS AND I&O DONE. CALL LIGHT WITHIN REACH. NO OTHER NEEDS AT THIS TIME
--- NOTE | 2019-05-17 09:35 | NUR ---
DR. PATEL IN TO SEE PT TO ASSESS RECTAL ABCESS. THIS RN AT BEDSIDE WITH DR. PATEL DURING THIS EXAM. DRAINAGE NOTED FROM ABCESS; PURULENT COLORED. PT REPORTING TO PROVIDER THAT ABCESS IS PAINFUL. PLAN PER DR. PATEL IS TO TAKE PT TO SURGERY THIS AFTERNOON. NPO AT THIS TIME.
--- NOTE | 2019-05-17 11:36 | NUR ---
PT SLEEPING AT THIS TIME, RESP EVEN AND NON LABORED. NO DISTRESS NOTED.
--- NOTE | 2019-05-17 12:24 | NUR ---
SURGICAL WIPE DOWN COMPLETED. THIS RN ASSISTED PT WITH HER BACK AREA. PT TOLERATED WELL. NO NEEDS AT THIS TIME.
--- NOTE | 2019-05-17 13:18 | NUR ---
PATIENT RESTING IN BED. VITAL SIGNS AND I&O DONE. CALL LIGHT WITHIN REACH. NO OTHER NEEDS AT THIS TIME
--- NOTE | 2019-05-17 13:33 | NUR ---
Pt left unit for surgery.
--- NOTE | 2019-05-17 14:00 | NUR ---
MET WITH PT OR STAFF WAS IN RM TO TAKE PT. SHE SEEMS IN GOOD SPIRITS, GAVE A BLESSING. WILL FOLLOW NEEDED
--- NOTE | 2019-05-17 15:10 | NUR ---
05/17/19 1510 Lucille Hall 1458 PT ARRIVED IN PACU AWAKE WITH NO C/O'S. 1510 RESTING. REU.
--- NOTE | 2019-05-17 15:48 | NUR ---
PT BACK FROM SURGERY. PT A&OX4, ON 3L OXYGEN PER NC. PT HAS NO DISTRESS, RESP EVEN AND NON LABORED. PT REPORTS PAIN 0/10, LOWER EXT NUMB @L3; SPINAL/SADDLE BLOCK PER BEDSIDE RN REPORT. BED ALARM INTACT. LEFT ANTERIOR WALLY RECTAL ABCESS HAS A VESSEL LOOP DRAIN INTACT WITH PAD NOTED; SAROSANG DRAINAGE. HOB ELEVATED. PT DENIES NEED TO VOID. OXYGEN SAT 96% AT THIS TIME. PT HAS NO NEEDS. PERSONAL SUPPLIES AND CALL LIGHT WITHIN REACH.
--- NOTE | 2019-05-17 16:48 | NUR ---
pt awake, a&ox4. Pt reports full sensation to lower ext. Assisted pt to restroom then back to bed. Vital signs stable, sat 96% on 3l nc. Pt reports 8/10 wally rectal pain. Will provide pt with pain medication. Small sarosang drainage noted to wally pad. Pt has no needs at this time. Personal supplies and call light within reach.
--- NOTE | 2019-05-17 16:59 | NUR ---
ZANAFLEX 4MG PO FOR REPORTS OF 8/10 WALLY RECTAL PAIN.
--- NOTE | 2019-05-17 17:10 | NUR ---
TALKED TO PATIENT THIS AM ABOUT HER DIABETES, SHE STATED SHE KNOWS SHE SHOULD BE CHECKING HER BLOOD SUGARS AND SHE STATES I JUST TAKE MY INSULIN WHEN I FEEL LIKE IT IS HIGH. I JUST GO BY MY FEELINGS ON WHETHER I AM HIGH OR LOW. I DISCUSSED THE IMPORTANCE OF THE CORRECT CARE AND DIET. SHE STATED YEAH I KNOW. SHE TOLD ME SHE HAD ALREADY MET WITH TRACIE IN DIETARY, BUT WOULD LIKE TO MEET WITH DOC ENGINEERING OFFICER IF SHE COULD BEFORE SHE GOES HOME. I CALLED AND LEFT A MESSAGE FOR DOC TO CALL ME IN THE AM.
--- NOTE | 2019-05-17 17:48 | NUR ---
PATIENT SITTING UP IN BED TAKING HER DINNER. IN ROOM. VITAL SIGNS AND I&O DONE. CALL LIGHT WITHIN REACH. NO OTHER NEEDS AT THIS TIME
--- NOTE | 2019-05-17 17:53 | NUR ---
PT A&OX4, ON 3L NC PER HOME. VS STABLE. I&D WALLY-RECTAL ABCESS TODAY WITH DR. PATEL. LR@75MLHR. INSULIN/BS CHECKS. RANDY ASSIST TO BR. CALLS APPROP.
--- NOTE | 2019-05-17 17:58 | NUR ---
Pt a&ox4. VS stable. Pt on 3l per nc, sat level 97%. Francia pad intact; sarosang drainage. Pt denies need to void. Personal supplies and call light within reach.
--- NOTE | 2019-05-17 18:22 | NUR ---
PT AWAKE, A&OX4. PT ON 3L OXYGEN, SAT LEVEL OF 99%, NO SOB OR DISTRESS NOTED. PT REPORTS PAIN LEVEL OF 7/10. VS STABLE. PT DENIES NEED TO VOID. PERSONAL SUPPLIES AND CALL LIGHT WITHIN REACH.
--- NOTE | 2019-05-17 19:15 | NUR ---
REPORT RECEIVED FROM DAY SHIFT RN. PT LYING IN BED, DROWSY BUT EASILY AROUSABLE. ALERT AND ORIENTED. CPOX IN PLACE, O2 SATS 98% ON 3L/NC. IVF INFUSING. DENIES NEEDS AT THIS TIME. CALL LIGHT IN REACH.
--- NOTE | 2019-05-17 20:11 | NUR ---
CALL LIGHT ANSWERED. PT UP TO BR WITH SBA, GAIT STEADY. BACK TO BED, ROLAND WELL.
--- NOTE | 2019-05-17 20:13 | NUR ---
PRIMARY RN NOTIFIED RE TEMP.
--- NOTE | 2019-05-17 20:27 | NUR ---
ROUNDED CHARGE. PATIENT IS RESTING IN BED. ISMA OSUNA PRESENT IN ROOM. PATIENT DENIES ANY COMMENTS, QUESTIONS, OR CONCERNS. NO NEEDS NOTED. CALL LIGHT IN REACH.
--- NOTE | 2019-05-17 20:50 | NUR ---
EVENING ASSESSMENT COMPLETE. SCHEDULED MEDS GIVEN WITHOUT ISSUE. PRN GIVEN FOR 6/10 GENERALIZED PAIN AND TEMP. O2 3L/NC IN PLACE. IVF INFUSING. WALLY-RECTAL ABSCESS COVERED WTIH WALLY PAD, SMALL AMOUNT OF SEROSANGUINEOUS DRAINAGE NOTED. PT DENIES FURTHER NEES. CALL LIGHT IN REACH.
--- NOTE | 2019-05-18 00:03 | NUR ---
PT AWAKE, LYING IN BED. FRESH ICE WATER GIVEN. COOL WASH CLOTH GIVEN PT STATES SHE IS HOT. NO FURTHER NEEDS. CALL LIGHT IN REACH.
--- NOTE | 2019-05-18 02:33 | NUR ---
CALL LIGHT ANSWERED. 1 SBA TO THE BATHROOM AND BACK TO BED. CHICKEN BROTH PROVIDED PER PATIENT'S REQUEST.
--- NOTE | 2019-05-18 04:17 | NUR ---
PT UP TO BR WITH SBA, GAIT STEADY. BACK TO BED, ROLAND WELL. ASSESSMENT COMPLETE. PRN GIVEN FOR 10/10 HEADACHE PAIN. SCD'S IN PLACE. IVF INFUSING.
--- NOTE | 2019-05-18 05:20 | NUR ---
CALL LIGHT ANSWERED. PT UP TO BR WITH SBA. BACK TO BED, ROLAND WELL. PT REFUSING TO REMOVE GAUZE PACKING FROM WALLY-RECTAL WOUND AT THIS TIME. VS TAKEN AND RECORDED. PT DENIES OTHER NEEDS. CALL LIGHT IN REACH.
--- NOTE | 2019-05-18 06:20 | NUR ---
PT SLEPT ON AND OFF, STATES THAT IS BASELINE FOR HER. ALERT AND ORIENTED, USES CALL LIGHT APPROPRIATELY. IVF. PO ABX. SCD'S. S/P WALLY-RECTAL ABCESS I&D. WOUND PACKING TO COME OUT THIS AM. SITZ BATH TO FOLLOW. REAPPLY WALLY PAD NEEDED. CHRONIC 3L/NC. SBA. VOID QS. PRN TYLENOL FOR PAIN.
--- NOTE | 2019-05-18 08:34 | NUR ---
BEDSIDE REPORT RECEIVED FROM COLIN LOUIS. WHITE BOARD UPDATED. ALL QUESTIONS ANSWERED. PACKING REMOVED AT 0830 FROM PERINEUM I&D LOCATION. PATIENT LYING ON RIGHT SIDE AT THIS TIME. WILL DO SITZ BACK SOON.
--- NOTE | 2019-05-18 09:25 | NUR ---
ATTEMPTED DIABETES EDUCATION CONSULT REQUESTED BY CASE MANAGEMENT. PT REQUESTED I RETURN AFTER SITZ BATH. WILL RETURN AND ATTEMPT CONSULT.
--- NOTE | 2019-05-18 09:46 | NUR ---
SITZ BATH NOW. NEW PANTIES AND WALLY PAD PROVIDED.
--- NOTE | 2019-05-18 10:39 | NUR ---
PATIENT IN BED, VISITOR IN ROOM. CALL LIGHT IN REACH. NO FURTHER NEEDS AT THIS TIME.
[2019-05-18] MEDS ORDERED: AMOX TR-K CLV1 EAC1 PO (13:09)
--- NOTE | 2019-05-18 14:23 | NUR ---
PT SITTING ON BED, O2 NC IN USE. SHE IS WAITING FOR DC-SEEMS TO BE READY, PCG AT BS. HAD PLEASANT VISIT, PT REQUESTED PRAYER. WILL FOLLOW NEEDED
--- NOTE | 2019-05-18 15:12 | OR ---
[facility] [address], [place] [address] Signed DATE OF OPERATION: 05/17/2019 SURGEON: Ankit Patel MD PREOPERATIVE DIAGNOSIS: Left perirectal abscess, incomplete spontaneous necessitation. POSTOPERATIVE DIAGNOSES: 1. Left perirectal abscess, incomplete spontaneous necessitation. 2. Necrotic tissue associated with abscess cavity (debrided). PROCEDURES: 1. Exam under anesthesia. 2. Incision, drainage, and debridement of left anterior perirectal abscess. 3. Placement of yellow vessel loop draining seton. ANESTHESIA: Saddle block with IV sedation, Ankit Rodrigez CRNA, and local 10 mL of 0.25% Marcaine with epinephrine. INDICATION: This morbidly obese 53-year-old white woman has numerous medical problems, many of them pulmonary and was in the hospital several days ago with an upper GI bleed, which was found related to small antral ulcers. She was managed with medication including Carafate and PPI medication. She presented once again to the hospital where she was reported to have bloody rectal drainage. She was examined by Dr. Ward and found to have a "hole" near the anal canal on the left side draining bloody material. Consultation was undertaken by me this morning, which showed her to have an incompletely drained spontaneously necessitating perirectal abscess completely unrelated to her previous hematemesis issue. She still has tenderness and there is still drainage of enteric appearing fluid and on that basis, I have recommend exam under anesthesia, additional drainage, and other indicated procedures depending on findings. She understands the risks of bleeding, infection, need for additional treatment, even more than today and wished to proceed. FINDINGS: An excellent saddle block was afforded by the fence gate assembler. A good examination was undertaken. There was indeed spontaneous necessitation of a left perirectal abscess in the anterior plane with surrounding necrotic tissue of the subcutaneous tissue and skin itself. This was debrided fully. There was no sign of necrotizing fasciitis or other Electronically Signed By: ANKIT PATEL MD 05/18/19 1512 PATIENT NAME: FEDERICO SALMON OPERATIVE REPORT DATE OF : 63 REPORT #: [id number] PHYSICIAN: ANKIT PATEL MD PCP: ERLINDA RICHARD PAC REPORT IS CONFIDENTIAL AND NOT TO BE RELEASED WITHOUT AUTHORIZATION [facility] [address], [place] [address] Signed more ominous problem. The cavity extended to the anal canal and an opening was configured to the dentate line as would be expected. On that basis, a draining yellow vessel loop seton was also placed. DESCRIPTION OF PROCEDURE: The patient was brought to the operating room and after undergoing saddle block anesthetic and placed in the prone jackknife position, the buttocks were taped apart. The perineum and perianal area were prepared with a DuraPrep solution and draped sterilely. Examination showed external hemorrhoidal changes. In addition, was an area about 3 cm from the anoderm, which formed a defect and some necrotic tissue around it. Interrogation of this site with a Yankauer suction showed un-drained purulent fluid as well. A tonsil clamp was placed and photographs were taken. A clamp easily passed without resistance to the dentate line consistent with a fistulous opening. A yellow vessel loop was placed and tied in a knot. The overlying tissue was elevated and the irrigation undertaken with a syringe device. Some necrotic debris of the skin and dermis and small amount of fat was then sharply debrided back to completely viable tissue. Additional irrigation was undertaken. A 10 mL of 0.25% Marcaine with epinephrine was injected locally. The wound was then packed with some plain gauze and a peripad applied. She was returned to the supine position, taken to recovery room in good condition having suffered no complications. Blood loss was minimal. MD PANCHO Shanks/NICK /[id number] cc: MD Erlinda Mendoza PA-C Copies: DANIEL WARD MD, ERIKA PAC ~ Electronically Signed By: ANKIT PATEL MD 05/18/19 1512 PATIENT NAME: FEDERICO SALMON OPERATIVE REPORT DATE OF : 63 REPORT #: [id number] PHYSICIAN: ANKIT PATEL MD PCP: ERLINDA RICHARD REPORT IS CONFIDENTIAL AND NOT TO BE RELEASED WITHOUT AUTHORIZATION
--- NOTE | 2019-05-18 15:12 | CONS ---
[facility] [address] [place], [place] [address] Signed DATE OF CONSULTATION: 05/17/2019 REQUESTING PHYSICIAN: Daniel Ward MD. REASON FOR CONSULTATION: Left perirectal drainage. HISTORY OF PRESENT ILLNESS: This morbidly obese 53-year-old white woman who was recently discharged from the hospital after upper gastrointestinal bleeding related to small punctate ulcers of the antrum. She returned to the ER with apparent blood per rectum and some bright blood per rectum as well. She was admitted by Dr. Ward and was evaluated and found to have an area near the anal canal with drainage of bloody fluid. The patient tells me that she was having pain, it was increasing over the preceding day or two, though she did not make much of it. Consultation was requested on that basis. PAST MEDICAL HISTORY: Negative for any prior perirectal abscess or other perirectal problem. Her major medical problems include morbid obesity and recent gastrointestinal bleeding as noted. REVIEW OF SYSTEMS: She has had no fever or chills. Denies any shortness of breath or chest pain. PHYSICAL EXAMINATION: GENERAL: Some morbidly obese white woman, who does not look to be systemically toxic. CHEST: Clear. HEART: Regular. ABDOMEN: Quite markedly obese. In the lateral decubitus position right side down, examination in the presence of her nurse was undertaken showing a defect in the perianal tissue draining memo liquid stool. This was consistent with perirectal abscess. There is local tenderness, not too much inflammation, however. ASSESSMENT: The patient has had spontaneous necessitation of the perirectal abscess. She still has a fair amount of pain, it appears. Although, this is spontaneously draining, she may have loculations for which further breakdown would be beneficial. Unfortunately, she has eaten this morning. I would recommend she be made n.p.o. and later this afternoon under saddle block, undergo exam under anesthesia and drainage of the area, possibly with placement of a yellow vessel loop seton. Discussed the risks of bleeding, infection, and so forth with her. She understands wished to proceed. We will review this further with Electronically Signed By: ANKIT PATEL MD 05/18/19 1512 PATIENT NAME: FEDERICO SALMON CONSULTATION DATE OF : 63 REPORT #: [id number] PHYSICIAN: AKNIT PATEL MD PCP: EMERSON RICHARD PAC REPORT IS CONFIDENTIAL AND NOT TO BE RELEASED WITHOUT AUTHORIZATION [address] Ward. MD PANCHO Shanks/MODL /[id number] cc: Daniel Ward MD Copies: DANIEL WARD MD ~ Electronically Signed By: ANKIT PATEL MD 05/18/19 1512 PATIENT NAME: FEDERICO SALMON CONSULTATION DATE OF : 63 REPORT #: [id number] PHYSICIAN: ANKIT PATEL MD PCP: EMERSON RICAHRD PAC REPORT IS CONFIDENTIAL AND NOT TO BE RELEASED WITHOUT AUTHORIZATION
== END 2019-05-18 14:18 | disposition home or self-care (01) ==
LOC: ED 15:09 → MS 15:11
PROVIDERS: ADMIT Internal Medicine
PROC: 0JBC0ZZ Excision of Pelvic Region Subcutaneous Tissue and Fascia, Open Approach (ICD-10-PCS; principal; 2019-05-15)
DX: K61.1 Rectal abscess (principal); D50.0 Iron deficiency anemia secondary to blood loss (chronic); K92.2 Gastrointestinal hemorrhage, unspecified; K25.9 Gastric ulcer, unspecified as acute or chronic, without hemorrhage or perforation; N17.9 Acute kidney failure, unspecified; R42 Dizziness and giddiness; J44.9 Chronic obstructive pulmonary disease, unspecified; K21.9 Gastro-esophageal reflux disease without esophagitis; J96.11 Chronic respiratory failure with hypoxia; E11.9 Type 2 diabetes mellitus without complications; G43.909 Migraine, unspecified, not intractable, without status migrainosus; G47.33 Obstructive sleep apnea (adult) (pediatric); F41.9 Anxiety disorder, unspecified; Z79.899 Other long term (current) drug therapy; Z79.4 Long term (current) use of insulin
CPT/HCPCS: 00902; 36415; 36430; 80048; 80053; 85025; 86850; 86900; 86901; 86920; 94760; 96361; 96374; 96375; 96376; 99285-25; C9113; G0378; J1815; J2001; J2250; J2405; J2550; J2704; J3010; J7030; J7121; P9016; Q0163

== ENCOUNTER 2019-05-25 09:18 | Inpatient (IN) | payer MEDICARE, OTHER ==
[~2019-05-25] VITALS: Ht 167.6 cm; Wt 144.7 kg
[~2019-05-25 09:18] MED LIST changes: +AMOX TR-K CLV1 EAC1 PO
--- OUTSIDE RECORDS SUMMARY | 2019-05-25 09:24 | XMS ---
PreManage Notification: FEDERICO SALMON Security Sales Assistant Displays Events No recent Security Events currently on file CRITERIA MET - [facility] - 2 Visits in 30 Days CARE PROVIDERS EMERSON RICHARD Physician Car Painter 12/03/2017-Current PHONE: Unknown Kirk Ambrocio Machine Tailer/Manager Programs 12/31/2017-Current PHONE: [phone] Kirk Ambrocio Primary Care 12/31/2017-Current PHONE: [phone] FRANCIS RICHARD Primary Care Current PHONE: [phone] [facility] Current [place] PHONE: Unknown [facility] Current Orthopedic Surgery \T\ Fracture [facility] PHONE: Unknown Earl has no Care Guidelines for this patient. Care History Medical/Surgical 07/28/2017 [facility] - PCP office has been notified [...] ED please contact Community Health WorkerStacy at [phone]. These are guidelines and the provider should exercise clinical judgment when providing care. E.D. VISIT COUNT (12 MO.) 7 [facility] TOTAL 7 NOTE: Visits indicate total known visits. ED/UCC VISIT TRACKING (12 MO.) 05/25/2019 09:19 [facility] TYPE: Emergency COMPLAINT: - VOMITING BLOOD, SEIZURE 05/15/2019 15:10 [facility] [place] TYPE: Emergency COMPLAINT: - SEIZURE 05/11/2019 01:55 [facility] [place] TYPE: Emergency COMPLAINT: - VOMITING 03/02/2019 22:09 [facility] TYPE: Emergency COMPLAINT: - N/V/D DIAGNOSES: - Nausea with vomiting, unspecified - Unspecified asthma, uncomplicated - 1 Type 2 diabetes mellitus without complications - Noninfective gastroenteritis and colitis, unspecified - FDC (current) use of insulin - Other snf (current) drug therapy - Personal history of pneumonia (recurrent) 12/18/2018 17:04 [facility] [place] TYPE: Emergency COMPLAINT: - LT ARM PAIN DIAGNOSES: - 1 Type 2 diabetes mellitus without complications - Unspecified asthma, uncomplicated - Lesion of ulnar nerve, left upper limb - 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 - 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 truck driver (current) drug 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 - Pain in left [...] uncomplicated - Pain in right hip - FDC (current) use of insulin - Personal history of pneumonia (recurrent) - Contusion of right hip, initial encounter 07/09/2018 03:17 [facility] TYPE: Emergency COMPLAINT: - BODY ACHES DIAGNOSES: - Personal history of pneumonia (recurrent) - 1 Type 2 diabetes mellitus without complications - Other snf (current) drug therapy - Fibromyalgia - Acquired absence of other specified parts of digestive tract - Unspecified asthma, uncomplicated - 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 - Chronic pain syndrome INPATIENT VISIT TRACKING (12 MO.) 05/15/2019 15:11 [facility] TYPE: Observation COMPLAINT: - DIZZINESS/ANEMIA DIAGNOSES: - Gastro-esophageal reflux disease without esophagitis - Migraine, unsp, not intractable, without status migrainosus - Iron deficiency anemia secondary to blood loss (chronic) - Acute kidney failure, unspecified - FDC (current) use of insulin - Anxiety disorder, unspecified - Obstructive sleep apnea (adult) (pediatric) - Gastrointestinal hemorrhage, unspecified - Gastric ulcer, unsp as acute or chronic, w/o hemor or perf - Rectal abscess - Chronic respiratory failure with hypoxia - Chronic obstructive pulmonary disease, unspecified - 1 Type 2 diabetes mellitus without complications - 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 driver (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
--- NOTE | 2019-05-25 14:47 | NUR ---
PATIENT OFF TO HAVE EGD. ANESTHESIA PROVIDER IN ROOM TO SEE PATIENT PRIOR TO HER GOING.
--- NOTE | 2019-05-25 14:49 | EKG ---
[facility] [address] [facility] [place], [place] [address] Signed Sinus tachycardia Nonspecific T wave abnormality Abnormal ECG When compared with ECG of 11-MAY-2019 16:26, No significant change was found Confirmed by SALINAS JACKSON DO ([id number]) on 05/25/2019 2:49:05 PM Electronically Signed By: SALINAS JACKSON DO 05/25/19 1449 PATIENT NAME: FEDERICO SALMON Electrocardiogram DATE OF : 63 PHYSICIAN: SALINAS JACKSON DO REPORT #: [id number] REPORT IS CONFIDENTIAL AND NOT TO BE RELEASED WITHOUT AUTHORIZATION
--- NOTE | 2019-05-25 16:27 | NUR ---
PATIENT RETURNS FROM PACU AND HER UPPER ENDOSCOPY. PT NAUSEOUS. PT VOMITS SOME DARK COFFEE GROUND COLOR OF BLOOD UP. ZOFRAN AND PHENERGAN GIVEN ( SEE EMAR). CBC COLLECTED BY LAB AND RESULTS AT 6.5/19.5 AFTER 2 UNITS PRBCs. IV SITE LEFT INNER WRIST REDRESSED WITH NEW DRESSING IT WAS LEAKING FROM THE CONNECTION. PT'S RETURNS AND UPDATED ON PATIENT. CBG 267 AT THIS TIME.
--- NOTE | 2019-05-25 17:32 | NUR ---
3RD UNIT OF BLOOD FINISHES AT 1710. PT NOW FEELING WARM AND ASKS FOR COVERS TO BE PULLED DOWN. ROOM TEMP ALSO TURNED DOWN. PT STILL REMAINS SLIGHTLY NAUSEOUS WITH SOME DRY HEAVES. PT MOSTLY RESTING. PT REMAINS NPO AT THIS TIEM. NEXT CBC TO BE DRAWN AT 1900.
--- NOTE | 2019-05-25 18:02 | NUR ---
MED REC COMPLETE
--- NOTE | 2019-05-25 20:15 | NUR ---
PT REQUESTING THAT CHUX PAD BE CHANGED DUE TO WRINKLES. PAD CHANGED AND DID HAVE SMALL AMT PURULENT DRAINAGE ON IT. INNER BUTTOCKS ARE REDDENED AND DOES HAVE AREAS OF FIRMNESS NAHOMI ON RT. 4TH PRBC STARTED AND NO SIGN RX. WHEN ASKED FULL NAME AND DATED OF PT WAS UNABLE TO REMEMBER DATE OF BITH AND LAST NAME BUT NEW THAT SHE WAS GETTING 4TH UNIT, AND OTHER AREAS OF CARE AND HOSPITALIZATION. WAS ABLE TO STATE THAT SHE HAS CHRONIC PROBLEM WITH MEMORY. CATH CARE DONE. BS 244, GIVEN 5 UNITS INSULIN.
--- NOTE | 2019-05-25 21:30 | NUR ---
CALL TO ON-CALL PHARMACIST DARLYN Dowell TO DISCUSS AVAILABILITY OF MEDICATION PEPTO-BISMAL 262MG CHEWABLE. MEDICATION UNAVAILABLE, PER DARLYN DOSE OKAY TO GIVE IN AM.
--- NOTE | 2019-05-25 21:38 | NUR ---
BP 210/61, GIVEN HS METOPROLOL AND PRN APRESSOLINE. C/O JOE. GIVEN 650MG TYLENOL. ALSO GIVEN USUAL XANAFLEX FOR CHRONIC PAIN.
--- NOTE | 2019-05-25 22:12 | NUR ---
NAUSEATED AND RETCHING, NO EMESIS. GIVEN 4MG ZOFRAN IV. ALSO GIVEN COOL WASHCLOTH AND FAN IN ROOM.
--- NOTE | 2019-05-25 23:14 | NUR ---
RESTING QUIETLY, READY FOR SLEEP. BLOOD FINISHED INFUSING AT 2230, NO SIGNS OF REACTION.
--- NOTE | 2019-05-26 02:20 | NUR ---
AWAKENED FOR BS CHECK. BS 256, GIVEN 5 UNITS INSULIN.
--- NOTE | 2019-05-26 03:13 | NUR ---
AWAKE TO REQUEST HELP IN PULLING UP COVERS FROM BOTTOM OF BED. FAN OFF. NO OTHER C/O.
--- NOTE | 2019-05-26 03:38 | NUR ---
" I THINK I"M GETTING A YEAST INFECTION"C/O ITCHING WALLY AREA. WALLY AREA NOT RED ALTHOUGH RECTAL AREA NEAR ABCESS IS. INFORMED PT THAT ITCHING COULD BE DUE TO DRAINAGE FROM ABCESS. WALLY CARE DONE.
--- NOTE | 2019-05-26 05:55 | NUR ---
LAB DRAWN, BACK TO SLEEP.
--- NOTE | 2019-05-26 09:12 | NUR ---
REPORT REC'D FROM RADIOLOGY TECHNICIAN RNs. PT STATES SHE IS FEELING BETTER COMPARED TO YESTERDAY, BUT STILL ONLY FEELING 20-30% TO HER NORMAL B ASELINE. IVF CONTINUE AT 100 ML/HR. PT RECEIVING PEPTO BISMOL AND ANTIBIOTICS FOR TREATMENT OF HER H. PYLORI. PT GIVEN A PARTIAL BED BATH ON HER BACK AND WALLY CARE PROVIDED. PT'S WALLY AREA CLEANED WITH WARM WATER AND SOAP. PT HAS SMALL LOOP YELLOW DRAIN STILL INTACT, AND NEWER AREA OF REDNESS AND PURULENT DRAINAGE STILL PRESENT. BARRIER CREAM APPLIED, AND A BARRIER TOWEL PLACED BETWEEN THE BUTTOCKS.
--- NOTE | 2019-05-26 09:44 | NUR ---
05/26/19 0944 Yvrose Rodrigez ADDED OUT OF ANESTHESIA TIME FOR CHARGES
--- NOTE | 2019-05-26 10:15 | NUR ---
DR. JACKSON IN ROOM TO SEE PATIENT. PATIENT WILL TRANSFER TO MEDICAL FLOOR TODAY. PATIENT CAN BE ADVANCED TO A REGULAR DIET. CHRIS D/Amina. PT TOLERATED WELL. RT IN ROOM AND GIVING A NEB TX TO PATIENT. PT REMAINS ON 3 L NC WHICH IS HER BASELINE. SCDs REMAIN ON AND PATIENT MENTIONS HOW MUCH SHE LIKES THEM ON.
--- NOTE | 2019-05-26 10:30 | NUR ---
Spoke with Gilma. She returned for infusion of PRBC. States GI bleed. She lives in [place] with her spouse Amado. He is home after 3 pm daily and she has state paid cg who stays with her in the am. 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 Denies needs for home or DME. She does state she would like to dc with HH as she has wound on her buttocks and needs assistance with dressing. notified.
--- NOTE | 2019-05-26 10:32 | NUR ---
ADMINISTERD MORNING MEDICATIONS. CALL LIGHT IN REACH. PT DENIES CONCERNS. VS STABLE.
--- NOTE | 2019-05-26 14:00 | NUR ---
REPORT GIVEN TO HERIBERTO REYES ON MED SURG WHO IS RESUMING CARE OF PATIENT. PATIENT TO TRANSFER TO THE MEDICAL FLOOR WITHOUT TELEMETRY. PT ABLE TO WALK HERSELF OVER TO ROOM 115 AND TOLERATED WELL. PT DENIES NEEDING OXYGEN FOR THIS AMBULATION. PT EAGER TO TAKE A SHOWER. RED AREA OF GROIN NOTED. DISCUSSED WITH AMANDA TONEY ORDER AND ORDER CHANGED TO START TODAY.
--- NOTE | 2019-05-26 14:35 | NUR ---
PATIENT AMBULATED TO ROOM FROM CCU. SBA. PATIENT ON RA SATS 98% ON 3L O2. PROPERTY ACCOUNTANT IS PREPARING TO ASSIST PATIENT WITH SHOWER. PATIENT COMPLAINS OF TENDER AND SORE GLANDS ON HER NECK (UNDERNEATH HER EARS). STATES THAT SHE FORGOT TO MENTION THIS TO PHYSICIAN. BLOOD PRESSURE AFTER AMBULATION WAS 175/69. BLOOD GLUCOS CHECKS CHANGED TO AC/HS PATIENT IS NOW ABLE TO EAT. CALL LIGHT IN REACH.
--- NOTE | 2019-05-26 14:36 | NUR ---
PATIENT AMBULATED FROM CCU TO ROOM 115. PATIENT IS UP TO SHOWER, FEELING BETTER, WEARING 3L OF CHRONIC O2. CALL TO PHARMACY TO ADJUST S/S INSULIN AND BG CHECK TO AC AND HS.
--- NOTE | 2019-05-26 14:48 | NUR ---
PATIENT TRANSFERRED FROM CCU TO THE FLOOR. IV WRAPPED. PATIENT GOES TO THE BATHROOM TO TAKE A SHOWER. ONE PERSON ASSISTING. PATIENT BACKS TO BED. CALL LIGHT WITHIN REACH. NO OTHER NEEDS AT THIS TIME
--- NOTE | 2019-05-26 14:59 | NUR ---
PATIENT RESTING IN BED AFTER SHOWER. PANNUS AREA LOOKS GOOD, WITHOUT REDNESS. P.O. DIFLUCAN GIVEN.
--- NOTE | 2019-05-26 16:40 | NUR ---
PATIENT BLOOD GLUCOSE IS 233, PLAN TO COVER WITH 5UNITS OF INSULIN WITH DINNER.
--- NOTE | 2019-05-26 17:11 | NUR ---
PATIENT RESTING IN BED. IN ROOM. VITAL SIGNS AND I&O DONE. CALL LIGHT WITHIN REACH. NO OTHER NEEDS AT THIS TIME
--- NOTE | 2019-05-26 19:27 | NUR ---
BEDSIDE REPORT FROM ERIC RN, PT SITTING UP IN BED REPORTS FEELING A LITTLE NAUSEA AFTER EATING STEAK FOR DINNER, EDCUATION PROVIDED TO PT ON MEAL CHOICES AT THIS TIME. ERIC GAVE PHENERGAN PRN. NO OTHER CONCERNS THIS AM.
--- NOTE | 2019-05-26 20:56 | NUR ---
ROUNDED CHARGE. PATIENT IS RESTING IN BED. PATIENT DENIES ANY NEEDS. CALL LIGHT IN REACH.
--- NOTE | 2019-05-26 21:12 | NUR ---
PT REQUESTS PAIN MEDICATION, ZANAFLEX GIVEN SHE ALSO ASKED FOR VISTRIL FOR ANXIETY AND CHICKEN BROTH, ALL THINGS GIVEN WITH HS MED PASS AND ASSESSMENT COMPLETE.
--- NOTE | 2019-05-26 21:15 | OR ---
[facility] [address], [place] [address] Signed DATE OF OPERATION: 05/25/2019 SURGEON: Ankit Patel MD PREOPERATIVE DIAGNOSES: 1. Recurrent gastric bleeding including hematemesis, hematocrit 16.1 prior to transfusion. 2. Recent diagnosis of antral ulceration associated with Helicobacter pylori. No evidence of bleeding of duodenum, distal two-thirds of stomach or esophagus, adherent tenacious clot proximal stomach. PROCEDURE PERFORMED: Esophagogastroduodenoscopy with lavage of stomach. ANESTHESIA: Intravenous sedation of propofol infusion; Ankit Rea CRNA. INDICATION: This quite markedly debilitated 53-year-old morbidly obese (BMI 51) white woman was admitted by Dr. Gaytan through the emergency room having had an episode of hematemesis, which was quite profound. She is considered to have "cirrhosis" based on CT scan findings and perisplenic varices. She had a significant gastrointestinal bleed on the 05/15, undergoing upper endoscopy by me which showed no esophageal varices and only antral small punctate type ulcers and erosions. She was treated with Carafate and PPI medication. She incidentally was seen once again two days later with perirectal abscess requiring incision and drainage and placement of a seton. She was recently found to have H pylori associated with her CLOtest biopsies, which took a fair amount of time to change to positive, and final pathology did confirm H pylori as well. Anti H pylori regimen was initiated yesterday. This morning, she had hematemesis of a considerable amount, found to have hematocrit of 16.1. She was admitted to the hospital, given blood transfusion and has completed 1.5 units prior to the endoscopy at this time. Of note, her platelet count is normal at greater than 450,000. INR is normal as well. The patient has a complex past medical history including pulmonary problems at one time suffering ARDS and requiring a tracheostomy, but all of that is back in 2013. Electronically Signed By: ANKIT PATEL MD 05/26/19 2115 PATIENT NAME: FEDERICO SALMON OPERATIVE REPORT DATE OF : 63 REPORT #: [id number] PHYSICIAN: ANKIT PATEL MD PCP: EMERSON RICHARD PAC REPORT IS CONFIDENTIAL AND NOT TO BE RELEASED WITHOUT AUTHORIZATION [facility] [address], [place] [address] Signed She is admitted at this time to undergo upper endoscopy to better characterize the source of her bleeding, to assess for varices and other causes of potential bleeding. Understands the risks of bleeding, infection, perforation, and cardiopulmonary complications, I understand that she wished to proceed. FINDINGS: There was old blood within the stomach. No fresh blood. No active bleeding noted. The esophagus was normal without source of bleeding, as was the distal 2/3rds of the stomach and the duodenum. There was tenacious clot in the more proximal stomach for which irrigation and so forth was undertaken but for which complete clearance of the stomach was not forthcoming. The patient did have some retained food, probably oatmeal despite her vomiting profusely earlier in the day. At this point, the actual source of bleeding is uncertain, but it is noted that it is not the esophagus, duodenum, or the distal 2/3rds of the stomach. DESCRIPTION OF PROCEDURE: The patient was brought to the endoscopy suite and placed in the lateral decubitus position. She was given intravenous sedation with propofol infusional technique with full cardiopulmonary monitoring and careful airway management. A bite block was placed after propofol was infused. An Olympus video upper endoscope was passed in the hypopharynx. The vocal cords appeared normal. Scope was advanced down the esophagus. The esophagus throughout its length was normal without signs of varices, bleeding, ulceration, or other issues. The scope was passed to the stomach where old clotted blood was noted. Irrigation was undertaken as best could be. Scope was passed past the proximal 1/3 of the stomach. Distal 2/3rds including the antrum showed no evidence of ulceration as had been seen previously. The pylorus was normal, the scope was passed through it into the duodenum. Duodenum was free of blood or active bleeding or any lesion to account for bleeding. Irrigation was undertaken. The scope was withdrawn and proximal retroflexed view did show dark semi clotted blood in the proximal stomach with some possibly retained bits of oatmeal from breakfast earlier in the day. Irrigation was undertaken as best could be. She did have some coughing and secretions and so forth requiring removal of the scope and additional bagging for oxygenation. The scope was reintroduced and the examination once again undertaken. Irrigation was undertaken as best could be in the proximal stomach, but it could never be cleared entirely to know the actual source of bleeding. The possibility of a Ana-Harrell tear is still reasonable considering everything. Re-examination of the stomach and duodenum and so forth again showed no sign of lesion to account for bleeding. irrigation fluid was suctioned free as much as possible. The scope was withdrawn, having no likely benefit of additional irrigation or evaluation and the remaining esophagus appeared normal. There was some clot that was coughed up and which was suctioned free. The patient was taken to the recovery room in stable condition. Electronically Signed By: ANKIT PATEL MD 05/26/19 7811 PATIENT NAME: FEDERICO SALMON OPERATIVE REPORT DATE OF : 63 REPORT #: [id number] PHYSICIAN: ANKIT PATEL MD PCP: EMERSON RICHARD PAC REPORT IS CONFIDENTIAL AND NOT TO BE RELEASED WITHOUT AUTHORIZATION [address] [address] Signed CONCLUDING DIAGNOSES: 1. Recurrent upper gastrointestinal bleeding, not apparently related to prior antral erosions or ulcerations. No sign of duodenal or esophageal bleeding. Tenacious adherent clot in the proximal stomach, uncertain if Ana-Harrell tear or other more proximal gastric lesion. 2. No evidence of esophageal varices or portal hypertension otherwise. MD PANCHO Shanks/CATRACHOL /[id number] cc: Salinas Gaytan MD Copies: SALINAS GAYTAN DO ~ Electronically Signed By: ANKIT PATEL MD 05/26/19 2115 PATIENT NAME: FEDERICO SALMON OPERATIVE REPORT DATE OF : 63 REPORT #: [id number] PHYSICIAN: ANKIT PATEL MD PCP: EMERSON RICHARD PAC REPORT IS CONFIDENTIAL AND NOT TO BE RELEASED WITHOUT AUTHORIZATION
--- NOTE | 2019-05-26 21:15 | CONS ---
[facility] [address] [place], [place] [address] Signed DATE OF CONSULTATION: 05/25/2019 CONSULTING PHYSICIAN: Ankit Patel MD REQUESTING PHYSICIAN: Salinas Gaytan MD PROBLEM: Hematemesis. HISTORY OF PRESENT ILLNESS: This morbidly obese (BMI 51.5), white woman is well known to me having recently been in the hospital for melena and GI bleeding, which was found to be related to small punctate ulcers of the antrum associated recently with findings of H pylori. She was treated with PPI medication and Carafate prior to the discovery of her H pylori infection contributing to her initial problem. She underwent upper endoscopy by me on May 11. In the early postoperative period on May 17, she presented once again to the emergency room where she was found to have a left perirectal abscess with spontaneous necessitation. She was taken to the operation, underwent irrigation, debridement, and placement of a seton at that time. She had been getting along reasonably well at home. However, on the past day or so, called to our office noting some dark blood drainage from the perianal area. She was advised to continue with her sitz baths as the blood was attributed to the perirectal open wound (current exam does show the yellow vessel loop seton still in place, but an area separate from it with induration and drainage). Earlier in the day today following an oatmeal breakfast, she had significant hematemesis proper. She presented to the emergency room and was found to have a hematocrit that was decreased to 16.1 with a hemoglobin of 5.0. Her platelet count was 546,000 and her INR normal at 1.0. She was admitted under the services of Dr. Gaytan for further evaluation and care. The patient is considered to have "cirrhosis", though there was no evidence of portal hypertension on upper endoscopy noted previously. 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 This was based on a May 11, 2019, CT scan. Additionally noted on the CT scan of the abdomen was absent gallbladder, normal splenic size and adjacent splenic varices, but no free fluid or ascites particularly. The liver was noted to have subtle nodularity in the border suggestive of cirrhosis. The patient has since been taken to the intensive care unit where at least 1 unit of Electronically Signed By: ANKIT PATEL MD 05/26/19 2115 PATIENT NAME: FEDERICO SALMON CONSULTATION DATE OF : 63 REPORT #: [id number] PHYSICIAN: ANKIT PATEL MD PCP: ERLINDA RICHARD PAC REPORT IS CONFIDENTIAL AND NOT TO BE RELEASED WITHOUT AUTHORIZATION [facility] [address] [place], [place] [address] Signed blood has been transfused and second unit now infusing. The patient denies any epigastric or substernal pain. She has had no further known bleeding since admission. Her evaluation in the emergency room was by Dr. Morris. PAST MEDICAL HISTORY: Quite remarkable for a prior history of advanced pneumonia, ultimately requiring prolonged ventilation and tracheostomy. Reversal of the tracheostomy was accomplished in February of 2014. The patient has had hysterectomy, bladder suspension operation, appendectomy, tonsillectomy. MEDICATIONS: At presentation included: 1. Lisinopril. 2. Sucralfate. 3. Pantoprazole. 4. Metoprolol. 5. Amlodipine. 6. Hydroxyzine. 7. Penicillin (amoxicillin). Additionally, she is diabetic and takes insulin (Lantus), reactive airways for which she takes albuterol as needed and monitors her sugars at home. Her primary provider is DREW Medrano. REVIEW OF SYSTEMS: Denies any shortness of breath or chest pain. She is not having dysphagia. Had hematemesis once. Had what sounds like melena at least once, possibly more. PHYSICAL EXAMINATION: GENERAL: A very obese white woman, who does not look to be severely distressed. VITAL SIGNS: Pulse is 112, blood pressure 138/70 at this time. Trachea is midline. NECK: Very plethoric. There is a scar in the suprasternal notch from prior tracheostomy. CHEST: Shows no sign of tachypnea. HEART: Regular. ABDOMEN: Quite massively obese. Easily palpated. There is no focal tenderness. : Examination of the perineum shows the yellow vessel loop to be appropriately positioned in the perianal space. There is an area of induration and open wound in the left gluteal space suggestive of prior necessitating abscess. There is mild erythema of both left and right intergluteal spaces. No doubt related to excoriation and pressure. ASSESSMENT: The patient has had an apparent significant upper gastrointestinal bleed with decreased hematocrit consistent with anemia of blood loss. She has been shown to have small Electronically Signed By: ANKIT PATEL MD 05/26/19 0773 PATIENT NAME: FEDERICO SALMON CONSULTATION DATE OF : 63 REPORT #: [id number] PHYSICIAN: ANKIT PATEL MD PCP: ERLINDA RICHARD PAC REPORT IS CONFIDENTIAL AND NOT TO BE RELEASED WITHOUT AUTHORIZATION [address] [address] Signed antral ulcers already and by biopsy and CLOtest proven to have H pylori infection for which treatment has only recently been initiated. Upper endoscopy would be appropriate to assess if there has been progression of ulcer to allow for bleeding or there may be some other source of the bleeding itself. The risks of bleeding, infection, perforation, and so forth were reviewed with her she understands. Given her advanced obesity, pulmonary issues from the past, and overall general medical disabilities, we will ask for anesthesia assistance to provide for the evaluation. I reviewed all this with Dr. Gaytan, who concurs. MD PANCHO Shanks/CATRACHOL /[id number] cc: MD Erlinda Perry PA-C Copies: SALINAS GAYTAN ERIKA PAC ~ Electronically Signed By: ANKIT PATEL MD 05/26/19 2115 PATIENT NAME: FEDERICO SALMON CONSULTATION DATE OF : 63 REPORT #: [id number] PHYSICIAN: ANKIT PATEL MD PCP: ERLINDA RICHARD PAC REPORT IS CONFIDENTIAL AND NOT TO BE RELEASED WITHOUT AUTHORIZATION
--- NOTE | 2019-05-27 00:37 | NUR ---
PT RESTING IN BED EYES CLOSED RR 17BPM, SNORING NOTED. NO DISTRESS NOTED, PT APPEARS TO BE SLEEPING.
--- NOTE | 2019-05-27 02:30 | NUR ---
PT RESTING IN BED EYES CLOSED RR 17 BPM, ALERT TO NAME, V/S STABLE. NO REQUESTS AT THIS TIME.
--- NOTE | 2019-05-27 04:00 | NUR ---
PT CALLED NURSES STATION, PT VERBALIZED FEELING LIKE HER GLANDS ON THE SIDES OF HER NECK ARE SWOLLEN, AND HER SKIN IS HOT. NO TIGHTNESS NOTED ON ASSESSMENT, PT IS AFEBRILE AND SKIN SUFACE TEMP IS WARM, NOT HOT. PT HAS BEEN SLEEPING SLUMPED DOWN WITH HEAD TO LEFT SIDE SHARPLY LEANING. PT SAID "THAT COULD BE WHY IT HURTS" PT GIVEN COLD WASH CLOTH.
--- NOTE | 2019-05-27 05:05 | NUR ---
PT HAS BEEN SLEEPING WELL OVER SHIFT, REPORTED PAIN EARLY IN SHIFT RESOLVED WITH ZANAFLEX, CONCERN ABOUT GLANDS SWOLLEN IN NECK, UNABLE TO PALPATE ANY ABNORMALITIES. PT HAD BEEN SLEEPING WITH HEAD TIPPED SHARPLY TO RIGHT SIDE. SHE HAS BEEN ON 3L OXYGEN N.C. OVER SHIFT. NO OTHER CONCERN THIS SHIFT.
--- NOTE | 2019-05-27 06:46 | NUR ---
PT REPORTS GLANDS STILL SORE BILATERALLY NECK. SHE SAID WHEN IT HAPPENED BEFORE SHE WAS INSTRUCTED TO SUCK ON LEMON HEADS CANDY. CHARGE NURSE UPDATED TO NOTIFY IN AM MEETING. PT GIVEN SUGARFREE GUM TO TRY TO INCREASE SALIVARY GLAND ACTIVITY, HOPEFULLY WILL IMPROVE DISCOMFORT.
--- NOTE | 2019-05-27 07:40 | NUR ---
0710: PT resting in her bed, report received from Nevaeh LOUIS. Call bird within reach.
--- NOTE | 2019-05-27 07:55 | NUR ---
GOT PATIENT'S BLOOD SUGAR CHECK. SHE MIGHT TAKE A SHOWER TODAY IF SHE DOESN'T GO HOME TODAY.
--- NOTE | 2019-05-27 08:25 | NUR ---
PT RESTING IN HER BED AND SHE STATES SHE HAS PAIN IN HER NECK, ABD, AND LEGS. SHE STATES THAT THE PAIN IS CHRONIC IN HER LEGS DUE TO HER FIBROMYLAGIA AND HER NECK PAIN IS DUE TO STONES AND HER CG IS GOING TO BRING IN LEMON GTTS AND HER ABD IS WELL CONTROLED. SHE STATES HER OVERALL PAIN IS A 6 WHICH IS ACCEPTABLE. SHE DENIES ANY NAUSEA AT THIS TIME AND STATES HER BREATHING FEELS FINE. SAT ON 3L IS 97%. WILL CONTINUE TO MONITOR, SEE ASSESSMENT. PT EATING BREAKFAST AT THIS TIME. GROIN TO COCCYX AREA IS RED AND THE PT REPOSITIONED AND INSTRUCTED TO REPOSITION FREQUENTLY WHICH SHE STATES UNDERSTANDING. PT TAKING ORAL ABX ORDERED, SEE EMAR.
--- NOTE | 2019-05-27 10:34 | NUR ---
PT WAS SITTING UP IN BED, TV ON. PTS' DEMEANOR HINTED TO ME THAT SHE WAS DISCOURAGED HAVING TO COME BACK AGAIN. HAD GOOD VISIT, PT REQUESTED PRAYER WILL FOLLOW NEEDED
--- NOTE | 2019-05-27 10:35 | NUR ---
PT COMPLAINS OF SOME NAUSEA WITH DRINKING OF HER OREDER BOWEL PREP. PT MEDICATED ORDERED.
--- NOTE | 2019-05-27 11:41 | NUR ---
PT STATES HER NAUSEA IS NOW UNDER GOOD CONTROL.
--- NOTE | 2019-05-27 13:11 | NUR ---
PT RESTING IN BED AND SHE DENIES ANY PAIN OR NAUSEA AT THIS TIME. PT HAD A LARGE BM FOLLOWING STARTING OF HER TAKING HER COLON PREP. PT CONTINUES TO DENY ANY LIGHTNESS WITH STANDING SHE STATES SHE JUST FEELS TIRED. PT ENCOUARGE TO CALL BEFORE GETTING OUT OF BED. SEE ASSESSMENT.
--- NOTE | 2019-05-27 13:37 | NUR ---
PT ASSISTED TO THE BR AND WAS STEADY ON HER FEET.
--- NOTE | 2019-05-27 16:00 | NUR ---
Pt awake, watching Tv. Taking prep for colonoscopy tomorrow. co of abd pain, but denies need for pain meds. States she is feeling better this afternoon as earlier she was down. States she has been sick with bleeding and 3 admissions to the hospital in 3 weeks. Denies needs at this time.
--- NOTE | 2019-05-27 17:39 | NUR ---
BROUGHT HER TWO CUPS OF BROTHS. SHE ALSO CHANGED HER MIND ON TAKING A SHOWER. SHE HAS A VISITOR IN HER ROOM.
--- NOTE | 2019-05-27 18:09 | NUR ---
PT HAS HAD MANY LOOSE STOOLS SINCE STARTING TO TAKE HER COLON PREP FOR A SCHEDULED COLONOSCOPY AND EGD TOMORROW. SHE STATES HER STOOL IS FULL LIQUID AND IS "BLACK" WHICH I DID NOT SEE. HER H&H THIS AM WAS 8.5 AND 25.4. SHE DENIES ANY PROBLEMS OTHER THAN FEELING "TIRED". SHE HAS BEEN STABLE ON HER FEET, DENIES FEELING DIZZY AND HER VITAL SIGNS HAVE BEEN STABLE. HER PROCEDURE IS SCHEDULED AT 1500 TOMORROW AND IS ON A CLEAR LIQUID DIET NOW AND NPO TOMORROW AT 0800.
--- NOTE | 2019-05-27 19:13 | NUR ---
RECEIVED REPORT FROM HERIBERTO LUCERO. Pt RESTING IN BED. REPORTED ANOTHER "COFFEE GROUND" COLORED BM. NO REQUESTS AT THIS TIME. CALL LIGHT WITHIN REACH. WHITEBOARD UPDATED.
--- NOTE | 2019-05-27 20:24 | NUR ---
ASSESSMENT DONE. pt RESTING IN BED. PAIN 10/14 PRN GIVEN (SEE MAR). pt REPORTED TENDERNESS IN ABD. BT ACTIVE. VITALS AND I&O RECORDED. NO FURTHER REQUESTS AT THIS TIME. CALL LIGHT WITHIN REACH.
--- NOTE | 2019-05-27 21:25 | NUR ---
IN TO GIVE MEDICATION (SEE MAR). NO REQUESTS AT THIS TIME. CALL LIGHT WITHIN REACH.
--- NOTE | 2019-05-27 23:45 | NUR ---
ROUNDED ON pt. RESTING IN BED. NO REQUESTS AT THIS TIME. CALL LIGHT WITHIN REACH.
--- NOTE | 2019-05-28 02:47 | NUR ---
ROUNDED ON pt. RESTING WITH EYES CLOSED, RESPIRATIONS REGULAR AND UNLABORED. CALL LIGHT WITHIN REACH.
--- NOTE | 2019-05-28 02:50 | NUR ---
CPOX ALARMED, ENTERED ROOM TO FINE PT AT 83% O2 SAT HE REMOVED CPAP. REPLACED IT AND REMINDED PT TO KEEP IT ON. HE DENIES NEEDS, CALL LIGHT IS CLOSE.
--- NOTE | 2019-05-28 03:17 | NUR ---
CALL LIGHT ON. pt REPORTED A "SHARP" PAIN IN HER LEFT CHEST. pt STATED "WHEN I USUALLY GET CHEST PAIN IT'S PRESSURE, THIS IS DIFFERENT, THIS IS JUST SHARP. I THINK I MIGHT BE HAVING AN ANXIETY ATTACK" pt REPORTED THAT PAIN HAD COMPLETELY DISAPPEARED WITHIN 1 MINUTE. SPOKE ABOUT HER DAUGHTER'S CHEMO THERAPY AND HOW HER DAUGHTER HAS TO HAVE REPEAT BLOOD WORK BECAUSE "THE NUMBERS WERE BAD" VITALS SIGNS STABLE. HR REGULAR. pt DID REPORT NAUSEA, "I ALWAYS GET NAUSEOUS WHEN MY STOMACH GETS TOUCHED" ASSESSMENT DONE. pt REQUESTED PRN PHENERGAN. DENIES DIZZYNESS, LIGHTHEADEDNESS. CALL LIGHT WITHIN REACH.
--- NOTE | 2019-05-28 03:40 | NUR ---
CALL LIGHT ON. pt REPORTED BM. LINENS CHANGED. pt UP IN CHAIR. IV PUMP BEEPING. HERIBERTO LORENZ IN TO START NEW IV.
--- NOTE | 2019-05-28 04:07 | NUR ---
IV INFUSION COMPLETE, SL.
--- NOTE | 2019-05-28 04:36 | NUR ---
pt RESTED ON AND OFF DURING SHIFT. pt UP MULTIPLE TIMES WITH LIQUID BMS, REPORTED THAT THEY ARE "BLACK BUT GETTING PNP." ON CLEAR LIQUIDS, TO BE NPO AT 0800 FOR SCOPES. ON 3L O2 CHRONIC. NAUSEA MEDS X1. NEW IV STARTED. LVS, SL. PO ABX. DRAINS PRESENT ON PERIRECTAL ABSCESS. INDEPENDENT IN ROOM. USES CALL LIGHT APPROPRIATELY.
--- NOTE | 2019-05-28 06:00 | NUR ---
pt REQUESTED PAIN MEDICATION FOR PAIN IN HER PERIRECTAL AREA WHERE THE ABSCESS IS. PRN GIVEN (SEE MAR). VITALS AND I&O RECORDED. CALL LIGHT WITHIN REACH.
--- NOTE | 2019-05-28 06:51 | NUR ---
MEDICATION GIVEN (SEE MAR). NO REQUESTS AT THIS TIME. CALL LIGHT WITHIN REACH.
--- NOTE | 2019-05-28 07:43 | NUR ---
PATIENT LYING IN BED ON HER SIDE WITH EYES CLOSED. CALL LIGHT IN REACH.
--- NOTE | 2019-05-28 07:59 | NUR ---
DID BLOOD SUGAR CHECK GOT HER LAST DRINK BEFORE SHE WAS CUT OFF. SHE MIGHT TAKE A SHOWER BEFORE PROCEDURE BECAUSE SHE WOULD LIKE TO TAKE A NAP.
--- NOTE | 2019-05-28 10:25 | NUR ---
PATIENT AMBULATED FROM BED TO BATHROOM. REPORTS MOCERATE PAIN WITH AMBULATION. WAS ABLE TO VOID 300CC POST CATHETER REMOVAL. PATIENT AMBULATED TO CHAIR. FRIEND IN ROOM. CONTINUOUS FLUIDS D/C'D PATIENT IS NOW EATING AND DRINKING. CALL LIGHT IN REACH.
--- NOTE | 2019-05-28 10:29 | NUR ---
PATIENT SITTING UP IN BED AWAKE. NO REPORTS OF PAIN. NO NEEDS REPORTED AT THIS TIME. RESPIRATIONS EQUAL AND UNLABORED. CALL LIGHT IN REACH.
--- NOTE | 2019-05-28 11:23 | NUR ---
PATIENT LYING IN BED AWAKE. REPORTED NAUSEA. ADMINISTERED IV PHENERGAN. COMPLETED PRE-OP CHECKLIST. PATIENT STATES SHE HAS TENDER LYMPH NODES ON NECK. CALL LIGHT IN REACH.
--- NOTE | 2019-05-28 13:22 | NUR ---
PATIENT LYING IN BED WATCHING TELEVISION. NO REPORTS OF PAIN OR NAUSEA. RESTING COMFORTABLY ON 3L O2/NC. CALL LIGHT IN REACH.
--- NOTE | 2019-05-28 14:45 | NUR ---
PT OFF FLOOR TO PROCEDURE.
--- NOTE | 2019-05-28 16:34 | NUR ---
05/28/19 1634 Lucero Almanza 1623- PT ARRIVES TO PACU ALERT AND ORIENTED. PT REPORTS HAVING "STOMACH PAIN" THAT SHE RATES A 7/10. PT REPORTS SHE HAS BEEN HAVING THIS PAIN BEFORE THE PROCEDURE. ANKIT MUNOZ CRNA AWARE OF THIS. NEW ORDERS RECEIVED. 1625- PT REPORTS NAUSEA, STATES SHE HAS BEEN NAUSEOUS BUT IT IS WORSE THEN BEFORE THE PROCEDURE. ANKIT MUNOZ CRNA AWARE OF THIS AND RECEIVED MEDICATIONS FROM ANKIT MUNOZ CRNA. SEE BLUE SHEET.
--- NOTE | 2019-05-28 17:07 | NUR ---
PT ARRIVEDTO FLOOR ALERT AND ORIENTED.TRANSFERED SELF TO BED. CARAFATE GIVEN.DINNER ORDERED. VITALS TAKEN AND STABLE. CALLLGIHT IN REACH.
--- NOTE | 2019-05-28 17:45 | NUR ---
PATIENT TAKEN TO PROCEDURE AT 1500. RESULTS IDENTIFIED A GASTRIC ULCER IN HEALING STAGE. PATIENT WAS NPO SINCE 0800 AND HAPPY TO ORDER MEAL AFTER RETURNING FROM PROCEDURE AT AROUND 1500. O2 SATS WERE 96-98 ON 3L O2, 97% POST PROCEDURE ON 4L O2. PATIENT LABS TRENDING APPROPRIATELY.
--- NOTE | 2019-05-28 18:58 | NUR ---
RECEIVED REPORT FROM HERIBERTO PLUMMER. pt RESTING IN BED, AT BEDSIDE. NO REQUESTS AT THIS TIME. WHITEBOARD UPDATED. CALL LIGHT WITHIN REACH.
--- NOTE | 2019-05-28 20:17 | NUR ---
VITALS AND I&OS DONE AND CHARTED. BLOOD SUGAR DONE AND CHARTED WELL. BEDSIDE TABLE AND CALL LIGHT IN REACH.
--- NOTE | 2019-05-28 20:39 | NUR ---
IN TO DO ASSESSMENT. pt DENIES PAIN ABOVE BASELINE AT THIS TIME. BT ACTIVE. IV IN RIGHT AC NOT PATENT, DC'D PER PROTOCOL. MEDICATIONS GIVEN (SEE MAR). NO FURTHER REQUESTS AT THIS TIME. CALL LIGHT WITHIN REACH.
--- NOTE | 2019-05-28 21:36 | NUR ---
IN TO GIVE MEDICATION, pt SNORING, RESPIRATIONS REGULAR AND UNLABORED. CALL LIGHT WITHIN REACH. HOLDING MED AT THIS TIME.
--- NOTE | 2019-05-28 22:19 | NUR ---
ROUNDED ON pt. SNORING, RESPIRATIONS REGULAR AND UNLABORED. CALL LIGHT WITHIN REACH.
--- NOTE | 2019-05-29 00:21 | NUR ---
ROUNDED ON pt. SNORING, RESPIRATIONS REGULAR. CALL LIGHT WITHIN REACH.
--- NOTE | 2019-05-29 01:12 | NUR ---
pt AWAKE, MEDICATION GIVEN (SEE MAR). NO REQUESTS AT THIS TIME. CALL LIGHT WITHIN REACH.
--- NOTE | 2019-05-29 03:34 | NUR ---
ROUNDED ON pt. AWAKE, REQUESTED PRN FOR NAUSEA, INFUSING (SEE MAR). pt VERBALIZED UNDERSTANDING TO CALL IF SHE FEELS PAIN IN IV SITE. ASSESSMENT DONE. NO CHANGES FROM PRIOR ASSESSMENT. NO BMS THIS SHIFT. pt DENIES ABD PAIN "JUST THE USUAL" CALL LIGHT AND POSSESSIONS WITHIN REACH.
--- NOTE | 2019-05-29 04:04 | NUR ---
INFUSION COMPLETED, SL. pt RESTING WITH EYES CLOSED, RESPIRATIONS REGULAR AND UNLABORED. CALL LIGHT WITHIN REACH.
--- NOTE | 2019-05-29 05:32 | NUR ---
pt RESTED MOST OF SHIFT. PRN NAUSEA MEDS X1. pt HAS NOT COMPLAINED OF PAIN ABOVE BASELINE, ABD JAILER. TOLERATING 60G CARB DIET. ACCU CHECK, SS AND SCHEDULED INSULIN. ON 3L O2 VIA NC. INDEPENDENT IN ROOM. USES CALL LIGHT APPROPRIATELY.
--- NOTE | 2019-05-29 06:37 | NUR ---
CAT BREEDER IN ROOM TO DO VITALS. MEDICATION GIVEN (SEE MAR). pt RESPONDED TO QUESTIONS AND WAS ORIENTED BUT FELL ASLEEP VERY QUICKLY. DENIED PAIN AND NAUSEA AT THIS TIME. CALL LIGHT WITHIN REACH.
--- NOTE | 2019-05-29 07:30 | NUR ---
PATIENT RESTING IN BED WITH EYES CLOSED. CALL LIGHT WITHIN REACH
--- NOTE | 2019-05-29 09:25 | NUR ---
PATIENT DENIED NAUSEA "NO MORE THAN USUAL" AND PAIN THIS MORNING. SITTING UP IN BED FOR BREAKFAST. TOOK ALL SCHEDULED MEDICATIONS. NO NEEDS AT THIS TIME.
[2019-05-29] MEDS ORDERED: DOXYCYCLINE HY100 MG PO (09:39)
[2019-05-29] MEDS ORDERED: METRONIDAZOLE250 MG PO (09:39)
[2019-05-29] MEDS ORDERED: FLUCONAZOLE100 MG PO (09:40)
[2019-05-29] MEDS ORDERED: BISMATROL262 MG/15 PO (09:43)
[2019-05-29] MEDS ORDERED: PANTOPRAZOLE SO40 MG PO (09:45)
--- NOTE | 2019-05-29 09:59 | NUR ---
PATIENT SITTING UP IN BED. IN ROOM. VITAL SIGNS AND I&O DONE. CALL LIGHT WITHIN REACH. NO OTHER NEEDS AT THIS TIME
--- NOTE | 2019-05-29 21:07 | OR ---
[facility] [address] [place], [place] [address] Signed DATE OF OPERATION: 05/28/2019 SURGEON: Ankit Patel MD PREOPERATIVE DIAGNOSES: 1. Morbid obesity. 2. Recent recurrent upper gastrointestinal bleeding. Actual bleeding site uncertain but considered likely proximal stomach. POSTOPERATIVE DIAGNOSES: 1. Proximal gastric ulcer with alfonso white base, not bleeding, no doubt certain site of recent bleeding. 2. Morbid obesity. 3. Normal-appearing colon. PROCEDURES: 1. Esophagogastroduodenoscopy with biopsy. 2. Total colonoscopy to cecum. ANESTHESIA: Propofol infusional sedation (Ankit Rodrigez CRNA). INDICATION: This morbidly obese 53-year-old white woman was admitted to the hospital on May 25 recently with significant hematemesis and hematocrit of 16.1. She was transfused and underwent prompt upper endoscopy, which showed a tenacious clot in the proximal stomach, which could not be cleared, normal esophagus and distal 2/3rd of stomach and duodenum. Within the preceding two weeks, she had gastrointestinal bleeding, which endoscopy showed punched-out type ulcerations of the antrum and subsequent finding of H pylori. Her recent upper endoscopy was incomplete as to the source of her hematemesis but was postulated to be the proximal stomach, so that was the only other that was not thoroughly evaluated. In the meantime, she has improved. She additionally in recent times underwent incision and drainage of a large perirectal abscess and has the yellow vessel loop seton in place. She has some induration and Electronically Signed By: ANKIT PATEL MD 05/29/19 2107 PATIENT NAME: FEDERICO SALMON OPERATIVE REPORT DATE OF : 63 REPORT #: [id number] PHYSICIAN: ANKIT PATEL MD PCP: ERLINDA RICHARD PAC REPORT IS CONFIDENTIAL AND NOT TO BE RELEASED WITHOUT AUTHORIZATION [facility] [address] [place], [place] [address] Signed fullness of the left buttock area with no noted un-drained purulence. She is improved at this point, though she has had 9 units of blood in the past few weeks in total. Her hematocrit currently is 27.1, but no further hematemesis. No blood per rectum. Upper endoscopy has been requested by Dr. Gaytan to definitively diagnose the source for recent hematemesis as well as colonoscopy as she has never had one before on the high possibility she may have a colonic lesion accounting for anemia as well. She understands risks of both procedures including, but not limited to, bleeding, infection, and perforation and wished to proceed. FINDINGS: Upper endoscopy at this point showed no sign of retained blood. The source proximally proved to be an ulcer with a alfonso white base, which was healing. It did not clearly appear associated with an underlying GIST tumor or anything of that sort, though the mucosa was somewhat heaped up. Biopsies were taken of the stomach for both SYLVIA and pathologic testing. The CLOtest was equivocal at 30 minutes post-procedure. There was no sign of bleeding of the ulcer noted, which was very near the GE junction itself. On colonoscopy, the prep was rather poor, but colonoscopy was accomplished ultimately to the cecum with lots of irrigation. Mucosal evaluation showed no evidence of colitis, diverticular formation, or cancer and certainly no polyps. DESCRIPTION OF PROCEDURE: The patient was brought to the endoscopy suite and placed in lateral decubitus position. A modified face mask was applied as was a bite block. She was given intravenous sedation with propofol infusional technique and an Olympus video upper endoscope passed in the hypopharynx. The vocal cords were normal. Scope was passed down the esophagus, which was normal. Scope entered the stomach without problem showing no sign of blood or clot or other abnormality. The antral folds were normal. Pylorus was normal. Scope was passed through into the duodenum, which was also normal. Careful inspection of the pyloric channel and bulb was undertaken again showing no sign of ulceration. The scope was withdrawn to the antrum of the stomach and flexed and retrograde evaluation of the proximal stomach showed no sign of tenacious blood clot at this point, but definitely showed an ulcer. It was surprisingly close to GE junction itself. Close inspection showed it to be about 7 mm in size based on comparison to open forceps device. Initially, it appeared to be somewhat heaped up and manipulation bluntly with biopsy forceps did not demonstrate an underlying mass, therefore, less likely to be a gastrointestinal stromal tumor or other similar lesion. Biopsies were taken of the mid stomach for both SYLVIA and pathologic testing given known recent H pylori. Electronically Signed By: ANKIT PATEL MD 05/29/19 7594 PATIENT NAME: FEDERICO SALMON OPERATIVE REPORT DATE OF : 63 REPORT #: [id number] PHYSICIAN: ANKIT PATEL MD PCP: ERLINDA RICHARD PAC REPORT IS CONFIDENTIAL AND NOT TO BE RELEASED WITHOUT AUTHORIZATION [facility] [address] [place] [id number] Signed The scope was withdrawn and the esophagus affirmed to be normal. Plans were then made for colonoscopy. In the lateral decubitus position, inspection of the perineum was undertaken. The previously placed yellow vessel loop seton was noted and some chronically indurated soft tissue lateral to this also noted. A scab like area was noted in the area. There was no sign of drainable pus or fluctuance proper. Digital rectal examination was normal. An Olympus video colonoscope was passed in the rectum and manipulated throughout the colon. Irrigation was required throughout due to a suboptimal prep. Ultimately, the cecum was obtained. The scope was withdrawn from that point. Careful inspection was undertaken with copious irrigation and suctioning showing no sign of obvious colitis, polyps, cancer, or other abnormality. Retroflexed view of the rectum was normal as well. The scope was removed. The patient was taken to recovery room in good condition. CONCLUDING DIAGNOSES: 1. Recent source of hematemesis, almost certainly a proximal ulcer of stomach. Helicobacter pylori is implicated in her ulcer formation and she is under treatment for it. 2. Colon without sign of lesion to account for bleeding in any way. No sign of polyps or other abnormalities. MD PANCHO Shanks/NICK /[id number] cc: MD Erlinda Perry PA-C Copies: SALINAS GAYTAN DO Electronically Signed By: ANKIT PATEL MD 05/29/19 2107 PATIENT NAME: FEDERICO SALMON OPERATIVE REPORT DATE OF : 63 REPORT #: [id number] PHYSICIAN: ANKIT PATEL MD PCP: ERLINDA RICHARD REPORT IS CONFIDENTIAL AND NOT TO BE RELEASED WITHOUT AUTHORIZATION [address] [address] Signed ERLINDA RICHARD ~ Electronically Signed By: ANKIT PATEL MD 05/29/19 2107 PATIENT NAME: FEDERICO SALMON OPERATIVE REPORT DATE OF : 63 REPORT #: [id number] PHYSICIAN: ANKIT PATEL MD PCP: ERLINDA RICHARD REPORT IS CONFIDENTIAL AND NOT TO BE RELEASED WITHOUT AUTHORIZATION
== END 2019-05-29 10:20 | disposition home or self-care (01) | DRG 378 ==
LOC: ED 09:18 → MS 11:51 → CCU 11:51 → MS 05-26 14:15
PROVIDERS: Surgery; ADMIT Student in an Organized Health Care Education/Training Program
PROC: 30243N1 Transfusion of Nonautologous Red Blood Cells into Central Vein, Percutaneous Approach (ICD-10-PCS; 2019-05-25)
PROC: 3E1G88Z Irrigation of Upper GI using Irrigating Substance, Via Natural or Artificial Opening Endoscopic (ICD-10-PCS; principal; 2019-05-25 14:45)
PROC: 0DJD8ZZ Inspection of Lower Intestinal Tract, Via Natural or Artificial Opening Endoscopic (ICD-10-PCS; 2019-05-28)
PROC: 0DB68ZX Excision of Stomach, Via Natural or Artificial Opening Endoscopic, Diagnostic (ICD-10-PCS; 2019-05-28 15:00)
DX: K25.4 Chronic or unspecified gastric ulcer with hemorrhage (principal); D62 Acute posthemorrhagic anemia; K61.1 Rectal abscess; Z68.43 Body mass index [BMI] 50.0-59.9, adult; I10 Essential (primary) hypertension; J44.9 Chronic obstructive pulmonary disease, unspecified; E11.9 Type 2 diabetes mellitus without complications; K21.9 Gastro-esophageal reflux disease without esophagitis; B96.81 Helicobacter pylori [H. pylori] as the cause of diseases classified elsewhere; J98.4 Other disorders of lung; F41.9 Anxiety disorder, unspecified; M79.7 Fibromyalgia; E66.01 Morbid (severe) obesity due to excess calories; Z66 Do not resuscitate; Z88.5 Allergy status to narcotic agent; Z79.4 Long term (current) use of insulin; Z79.51 Long term (current) use of inhaled steroids; Z79.899 Other long term (current) drug therapy; Z87.11 Personal history of peptic ulcer disease
CPT/HCPCS: 36415; 36430; 71045; 80048; 80053; 83690; 83735; 84484; 85018; 85025; 85610; 85730; 86850; 86900; 86901; 86920; 93005; 93010; 94640; 96361; 96374; 96375; 99285-25; C9113; J0131; J1815; J2405; J2550; J2704; J2765; J3010; J3475; J7030; J7040; J7060; J7121; P9016; Q0177

== ENCOUNTER 2019-06-11 18:05 | Emergency (ER) | payer MEDICARE, OTHER ==
[~2019-06-11] VITALS: Ht 167.6 cm; Wt 141.5 kg
[~2019-06-11 18:05] MED LIST changes: +BISMATROL262 MG/15 PO; +FLUCONAZOLE100 MG PO; +METRONIDAZOLE250 MG PO
--- OUTSIDE RECORDS SUMMARY | 2019-06-11 18:08 | XMS ---
PreManage Notification: FEDERICO SALMON Security Supervisor Buffing And Pasting Events No recent Security Events currently on file CRITERIA MET - 6 ED Visits in 6 Months - [facility] - 2 Visits in 30 Days CARE PROVIDERS EMERSON RICHARD Physician Aeronautical Engineer 12/03/2017-Current PHONE: Unknown Kirk Ambrocio Umbrella Frame Maker/Therapist Occupational 12/31/2017-Current PHONE: [phone] EMERSON RICHARD Primary Care Current PHONE: Unknown Kirk Ambrocio Primary Care 12/31/2017-Current PHONE: [phone] FRANCIS RICHARD Primary Care Current PHONE: [phone] Cheko Echavarria Current PHONE: Unknown Elsie [place] Henrique Current Orthopedic Surgery \T\ [facility] PHONE: Unknown Earl has no Care Guidelines for this patient. [facility] VISIT COUNT (12 MO.) Shayna Tariq TOTAL 9 NOTE: Visits indicate total known visits. ED/UCC VISIT TRACKING (12 MO.) 06/11/2019 18:05 [facility] TYPE: Emergency COMPLAINT: - RECTAL BLEEDING 06/04/2019 18:17 [facility] TYPE: Emergency COMPLAINT: - POSS GI BLEED DIAGNOSES: - Hematemesis - Morbid (severe) obesity due to excess calories - [facility] (current) use of inhaled steroids - Epilepsy, unsp, not intractable, without status epilepticus - 1 Type 2 diabetes mellitus without complications - Acute posthemorrhagic anemia - Essential (primary) hypertension - vermin exterminator (current) use of insulin - Allergy status to narcotic agent status - Unspecified asthma, uncomplicated - Melena - Other prison (current) drug therapy 05/25/2019 09:19 [facility] TYPE: Emergency [...] - Noninfective gastroenteritis and colitis, unspecified - vermin exterminator (current) use of insulin - Other terminal makeup operator (current) drug therapy - Personal history of pneumonia (recurrent) 12/18/2018 17:04 [facility] TYPE: Emergency COMPLAINT: - LT ARM PAIN DIAGNOSES: - 1 Type 2 diabetes mellitus without complications - Unspecified asthma, uncomplicated - Lesion of ulnar nerve, left upper limb - vermin exterminator (current) use of insulin - Other prison (current) drug therapy - Pain in left [...] uncomplicated - Pain in right hip - [facility] (current) use of insulin - Personal history of pneumonia (recurrent) - Contusion of right hip, initial encounter 07/09/2018 03:17 [facility] TYPE: Emergency COMPLAINT: - BODY ACHES DIAGNOSES: - Personal history of pneumonia (recurrent) - 1 Type 2 diabetes mellitus without complications - Other prison (current) drug therapy - Fibromyalgia - Acquired absence of other specified parts of digestive tract - Unspecified asthma, uncomplicated - [facility] (current) use of insulin - Chronic pain syndrome INPATIENT VISIT TRACKING (12 MO.) 06/05/2019 02:42 [facility] TYPE: Medical Surgical DIAGNOSES: - Unspecified cirrhosis of liver - Portal vein thrombosis - Gastric Bleed - Acute posthemorrhagic anemia - Melena - Peptic ulc, site unsp, unsp as ac or chr, w/o hemor or perf - Gastrointestinal hemorrhage, unspecified - GI Bleed 06/04/2019 22:19 [facility] TYPE: Critical Care COMPLAINT: - GI BLEED DIAGNOSES: - vermin exterminator (current) use of inhaled steroids - vermin exterminator (current) use of insulin - Essential (primary) hypertension - Allergy status to narcotic agent status - 1 Type 2 diabetes mellitus without complications - Acute posthemorrhagic anemia - Other prison (current) drug therapy - Hematemesis - Epilepsy, unsp, not intractable, without status epilepticus - Unspecified asthma, uncomplicated - Melena - Morbid (severe) obesity due to excess calories 05/25/2019 11:51 [facility] TYPE: Medical Surgical COMPLAINT: - GI BLEED DIAGNOSES: - Rectal abscess - 1 Type 2 diabetes mellitus without complications - Personal history of peptic ulcer disease - 1 Type 2 diabetes mellitus without complications - Fibromyalgia - [facility] (current) use of insulin - Fibromyalgia - Gastro-esophageal reflux disease without esophagitis - Chronic or unspecified gastric ulcer with hemorrhage - Rectal abscess - vermin exterminator (current) use of insulin - Essential (primary) hypertension - Chronic obstructive pulmonary disease, unspecified - Body mass index (BMI) 50.0-59.9, adult - Morbid (severe) obesity due to excess calories - Allergy status to narcotic agent status - Other disorders of lung - Do not resuscitate - Other prison (current) drug therapy - Anxiety disorder, unspecified - Acute posthemorrhagic anemia - [facility] (current) use of inhaled steroids - Morbid (severe) obesity due to excess calories - Essential (primary) hypertension - Gastro-esophageal reflux disease without esophagitis - vermin exterminator (current) use of inhaled steroids - Other disorders of lung - Helicobacter pylori as the cause of diseases classd elswhr - Personal history of peptic ulcer disease - Do not resuscitate - Other prison (current) drug therapy - Allergy status to narcotic agent status - Chronic or unspecified gastric ulcer with hemorrhage - Chronic obstructive pulmonary disease, unspecified - Body mass index (BMI) 50.0-59.9, adult - Anxiety disorder, unspecified - Hematemesis - Helicobacter pylori as the cause of diseases classd elswhr - Acute posthemorrhagic anemia 05/15/2019 15:11 [facility] TYPE: Observation COMPLAINT: - DIZZINESS/ANEMIA DIAGNOSES: - Gastro-esophageal reflux disease without esophagitis - Migraine, unsp, not intractable, without status migrainosus - Iron deficiency anemia secondary to blood loss (chronic) - Acute kidney failure, unspecified - vermin exterminator (current) use of insulin - Anxiety disorder, unspecified - Obstructive sleep apnea (adult) (pediatric) - Gastrointestinal hemorrhage, unspecified - Gastric ulcer, unsp as acute or chronic, w/o hemor or perf - Rectal abscess - Chronic respiratory failure with hypoxia - Chronic obstructive pulmonary disease, unspecified - 1 Type 2 diabetes mellitus without complications - Other prison (current) drug therapy - Dizziness and giddiness 05/11/2019 01:[address] [facility] TYPE: Observation COMPLAINT: - UPPER GI BLEED DIAGNOSES: - Anxiety disorder, unspecified - Unspecified chronic gastritis without bleeding - Fibromyalgia - Body mass index (BMI) 50.0-59.9, adult - Hematemesis - [facility] (current) use of insulin - Acute posthemorrhagic anemia - Other disorders of lung - Unspecified abdominal pain - Chronic or unspecified gastric ulcer with hemorrhage - Essential (primary) hypertension - Gastro-esophageal reflux disease without esophagitis - Dependence on supplemental oxygen - Helicobacter pylori as the cause of diseases classd elswhr - 1 Type 2 diabetes mellitus without complications - Do not resuscitate - Morbid (severe) obesity due to excess calories - Chronic obstructive pulmonary disease, unspecified - Other prison (current) drug therapy [email or web address]
[2019-06-11] MEDS ORDERED: ELIQUIS5 MG PO (19:15)
== END 2019-06-12 01:37 | disposition home or self-care (01) ==
LOC: ED 18:05
DX: K92.2 Gastrointestinal hemorrhage, unspecified (principal); E11.9 Type 2 diabetes mellitus without complications; J45.909 Unspecified asthma, uncomplicated; Z79.899 Other long term (current) drug therapy
CPT/HCPCS: 80053; 85025; 85610; 85730; 86850; 86900; 86901; 86920; 96361; 96374; 96376; 99283-25; J2550; J7030

== ENCOUNTER 2019-06-15 09:46 | Observation (INO) | payer MEDICARE, OTHER ==
[~2019-06-15] VITALS: Ht 167.6 cm; Wt 143.8 kg
[~2019-06-15 09:46] MED LIST changes: -DULOXETINE HCL60 MG PO; +ELIQUIS5 MG PO
--- OUTSIDE RECORDS SUMMARY | 2019-06-15 09:48 | XMS ---
PreManage Notification: FEDERICO SALMON Security Coin Machine Operator Events No recent Security Events currently on file CRITERIA MET - 6 ED Visits in 6 Months - [facility] - 2 Visits in 30 Days CARE PROVIDERS EMERSON RICHARD Physician Park Interpretive Specialist 12/03/2017-Current PHONE: Unknown Kirk Ambrocio Infantry Unit Leader/Aircraft Engine Assembler 12/31/2017-Current PHONE: [phone] EMERSON RICHARD Primary Care Current PHONE: Unknown Kirk Ambrocio Primary Care 12/31/2017-Current PHONE: [phone] FRANCIS RICHARD Primary Care Current PHONE: [phone] Cheko Echavarria Current PHONE: Unknown Elsie [place] Henrique Current Orthopedic Surgery \T\ Fracture [facility] PHONE: Unknown Earl has no Care Guidelines for this patient. [facility] VISIT COUNT (12 MO.) Nick Tariq TOTAL 10 NOTE: Visits indicate total known visits. ED/UCC VISIT TRACKING (12 MO.) 06/15/2019 09:46 [facility] TYPE: Emergency COMPLAINT: - WEAKNESS 06/11/2019 18:05 [facility] TYPE: Emergency COMPLAINT: - RECTAL BLEEDING DIAGNOSES: - Gastrointestinal hemorrhage, unspecified - Unspecified asthma, uncomplicated - Other terminal make up operator (current) drug therapy - Gastrointestinal hemorrhage, unspecified - 1 Type 2 diabetes mellitus without complications 06/04/2019 18:17 [facility] [place] TYPE: Emergency COMPLAINT: - POSS GI BLEED DIAGNOSES: - Hematemesis - Morbid (severe) obesity due to excess calories - superintendent terminal (current) use of inhaled steroids - Epilepsy, unsp, not intractable, without status epilepticus - 1 Type 2 diabetes mellitus without complications - Acute posthemorrhagic anemia - Essential (primary) hypertension - penitentiary (current) use of insulin - Allergy status to narcotic agent status - Unspecified asthma, uncomplicated - Melena - Other senior living (current) drug therapy 05/25/2019 09:19 RASHAD Carcamo [...] - Noninfective gastroenteritis and colitis, unspecified - superintendent terminal (current) use of insulin - Other senior living (current) drug therapy - Personal history of pneumonia (recurrent) 12/18/2018 17:04 [facility] [place] TYPE: Emergency COMPLAINT: - LT ARM PAIN DIAGNOSES: - 1 Type 2 diabetes mellitus without complications - Unspecified asthma, uncomplicated - Lesion of ulnar nerve, left upper limb - superintendent terminal (current) use of insulin - Other senior living (current) drug therapy - Pain in left [...] uncomplicated - Pain in right hip - penitentiary (current) use of insulin - Personal history of pneumonia (recurrent) - Contusion of right hip, initial encounter 07/09/2018 03:17 [facility] [place] TYPE: Emergency COMPLAINT: - BODY ACHES DIAGNOSES: - Personal history of pneumonia (recurrent) - 1 Type 2 diabetes mellitus without complications - Other terminal make up operator (current) drug therapy - Fibromyalgia - Acquired absence of other specified parts of digestive tract - Unspecified asthma, uncomplicated - superintendent terminal (current) use of insulin - Chronic pain [...] Care COMPLAINT: - GI BLEED DIAGNOSES: - penitentiary (current) use of inhaled steroids - penitentiary (current) use of insulin - Essential (primary) hypertension - Allergy status to narcotic agent status - 1 Type 2 diabetes mellitus without complications - Acute posthemorrhagic anemia - Other senior living (current) drug therapy - Hematemesis - Epilepsy, [...] diabetes mellitus without complications - Fibromyalgia - penitentiary (current) use of insulin - Fibromyalgia - Gastro-esophageal reflux disease without esophagitis - Chronic or unspecified gastric ulcer with hemorrhage - Rectal abscess - superintendent terminal (current) use of insulin - Essential (primary) hypertension - Chronic obstructive pulmonary disease, unspecified - Body mass index (BMI) 50.0-59.9, adult - Morbid (severe) obesity due to excess calories - Allergy status to narcotic agent status - Other disorders of lung - Do not resuscitate - Other senior living (current) drug therapy - Anxiety disorder, unspecified - Acute posthemorrhagic anemia - penitentiary (current) use of inhaled steroids - Morbid (severe) obesity due to excess calories - Essential (primary) hypertension - Gastro-esophageal reflux disease without esophagitis - superintendent terminal (current) use of inhaled steroids - Other disorders of lung - Helicobacter pylori as the cause of diseases classd elswhr - Personal history of peptic ulcer disease - Do not resuscitate - Other terminal make up operator (current) drug therapy - Allergy status to [...] (chronic) - Acute kidney failure, unspecified - superintendent terminal (current) use of insulin - Anxiety disorder, unspecified - Obstructive sleep apnea (adult) (pediatric) - Gastrointestinal hemorrhage, unspecified - Gastric ulcer, unsp as acute or chronic, w/o hemor or perf - Rectal abscess - Chronic respiratory failure with hypoxia - Chronic obstructive pulmonary disease, unspecified - 1 Type 2 diabetes mellitus without complications - Other senior living (current) drug therapy - Dizziness and giddiness 05/11/2019 01:56 [facility] Car[facility] [place] TYPE: Observation COMPLAINT: - UPPER GI BLEED DIAGNOSES: - Anxiety disorder, unspecified - Unspecified chronic gastritis without bleeding - Fibromyalgia - Body mass index (BMI) 50.0-59.9, adult - Hematemesis - superintendent terminal (current) use of insulin - Acute posthemorrhagic [...] Chronic obstructive pulmonary disease, unspecified - Other senior living (current) drug therapy [email or web address]
--- NOTE | 2019-06-15 22:37 | EKG ---
[facility] [address] [facility] [place] [address] Signed Normal sinus rhythm Normal ECG When compared with ECG of 25-MAY-2019 09:28, Vent. rate has decreased BY 55 BPM Nonspecific T wave abnormality no longer evident in Lateral leads Confirmed by DANIEL HILL MD ([id number]) on 06/15/2019 10:36:50 PM Electronically Signed By: DANIEL HILL MD 06/15/19 2237 PATIENT NAME: FEDERICO SALMON Electrocardiogram DATE OF : 63 PHYSICIAN: DANIEL HILL MD REPORT #: [id number] REPORT IS CONFIDENTIAL AND NOT TO BE RELEASED WITHOUT AUTHORIZATION
[2019-06-17] MEDS ORDERED: DULOXETINE HCL60 MG PO (09:23)
[2019-06-17] MEDS ORDERED: PANTOPRAZOLE SO40 MG PO (09:25)
[2019-06-17] MEDS ORDERED: LACTULOSE10 GM/15 M PO (09:40)
== END 2019-06-17 10:45 | disposition home or self-care (01) ==
LOC: ED 09:46 → CCU 09:47
PROVIDERS: ADMIT Internal Medicine
DX: K92.2 Gastrointestinal hemorrhage, unspecified (principal); D50.0 Iron deficiency anemia secondary to blood loss (chronic); K74.60 Unspecified cirrhosis of liver; K76.6 Portal hypertension; I81 Portal vein thrombosis; K72.90 Hepatic failure, unspecified without coma; I10 Essential (primary) hypertension; E66.01 Morbid (severe) obesity due to excess calories; G40.909 Epilepsy, unspecified, not intractable, without status epilepticus; G89.4 Chronic pain syndrome; E11.9 Type 2 diabetes mellitus without complications; Z68.43 Body mass index [BMI] 50.0-59.9, adult; Z86.711 Personal history of pulmonary embolism; Z86.718 Personal history of other venous thrombosis and embolism; Z88.5 Allergy status to narcotic agent; Z79.899 Other long term (current) drug therapy; Z79.4 Long term (current) use of insulin; Z79.51 Long term (current) use of inhaled steroids
CPT/HCPCS: 36415; 36430; 51702; 70450; 71045; 80048; 80053; 81001; 82140; 83605; 84484; 85018; 85025; 85610; 85730; 86850; 86900; 86901; 86920; 87040; 90688; 93005; 93010; 96376; 99285-25; C9113; G0008; G0378; G0480; J1815; J2550; J7060; P9016

== ENCOUNTER 2019-09-29 08:41 | Emergency (ER) | payer MEDICARE, OTHER ==
[~2019-09-29] VITALS: Ht 167.6 cm; Wt 143.8 kg
[~2019-09-29 08:41] MED LIST changes: +DULOXETINE HCL60 MG PO; +LACTULOSE10 GM/15 M PO
[2019-09-29] MEDS ORDERED: SPIRONOLACTONE50 MG PO (08:54)
[2019-09-29] MEDS ORDERED: FUROSEMIDE20 MG PO (08:54)
[2019-09-29] MEDS ORDERED: LACTULOSE20 GM/30 M PO (10:46)
--- NOTE | 2019-09-29 11:43 | EKG ---
[facility] [address] [facility] [place], [place] [address] Signed Normal sinus rhythm Normal ECG When compared with ECG of 15-JUN-2019 10:21, No significant change was found Confirmed by DANIEL HILL MD ([id number]) on 09/29/2019 11:43:43 AM Electronically Signed By: DANIEL HILL MD 09/29/19 1143 PATIENT NAME: FEDERICO SALMON Electrocardiogram DATE OF : 63 PHYSICIAN: DANIEL HILL MD REPORT #: [id number] REPORT IS CONFIDENTIAL AND NOT TO BE RELEASED WITHOUT AUTHORIZATION
== END 2019-09-29 11:11 | disposition home or self-care (01) ==
LOC: ED 08:41
DX: E11.65 Type 2 diabetes mellitus with hyperglycemia (principal); J45.909 Unspecified asthma, uncomplicated; Z88.5 Allergy status to narcotic agent; Z79.899 Other long term (current) drug therapy; Z79.01 Long term (current) use of anticoagulants; Z79.4 Long term (current) use of insulin
CPT/HCPCS: 71045; 80053; 81001; 82140; 85025; 85610; 85730; 93005; 93010; 96360; 99285-25; J1815; J7040

== ENCOUNTER 2019-10-06 07:55 | Emergency (ER) | payer MEDICARE, OTHER ==
[~2019-10-06] VITALS: Ht 167.6 cm; Wt 143.8 kg
--- OUTSIDE RECORDS SUMMARY | ~2019-10-06 | XMS | Encounter Summary ---
Demographics + + + | Address | [address] | | | [place] [address] | + + + | Home Phone | | + + + | Preferred Language | Unknown | + + + | Marital Status | | + + + | Scientology Affiliation | Unknown | + + + [...] Team Providers + +------+ + | Care Visitor Services Associate Name | Role | Phone | + +------+ + | Mynor Kam MD | PCP | | + +------+ + Encounter Details +--------+ + + + + | Date | Type | Department | Care Team | Description | +--------+ + + + + | 11/08/ | Orders Only | [facility] | Conversion | | | 2013 | | CONVERSION DEP [address] | Transaction, | | | | | A[place]LAIDE LEON | Provider Unknown | | | | | [place] | [phone] | | | | | [address] | | | | | | [phone] | | | +--------+ + + + [...] | +--------+ + + + + | 10/05/ | Virtual | Neurology | Elaine Andrews, | | | 2019 | Office | | MD Kim STOUT | | | | Visit | | [address] | | | | | | [place] [address] | | | | | | [phone] | | | | | | | | +--------+ + + + + documented as of this encounter Visit Diagnoses Not on filedocumented in this encounter"
--- OUTSIDE RECORDS SUMMARY | ~2019-10-06 | XMS | Encounter Summary ---
Demographics + + + | Address | [address] | | | [place] [address] | + + + | Home Phone | | + + + | Preferred Language | Unknown | + + + | Marital Status | | + + + | Hinduism Affiliation | Unknown | + + + | Race | Unknown | + + + | Ethnic Group | Unknown | + + + Author + + + | Author | [facility] | | | and [place] | + + + | Organization | [facility] | | | [...] Team Providers + +------+ + | Care Candy Forming Machine Operator Name | Role | Phone | + +------+ + | Mynor Kam MD | PCP | | + +------+ + Reason for Visit + +--------+ + | Reason | Onset | Comments | | | Date | | + +--------+ + | Follow-up | 02/26/ | Reschedule | | | 2019 | | + +--------+ + Encounter Details +--------+ + + + + | Date | Type | Department | Care Team | Description | +--------+ + + + + | 02/26/ | Telephone | [facility] | Elaine Andrews, | Follow-up | | 2019 | | NEUROLOGY [address] | (Reschedule ) | | | | [address] | [address] | | | | | [place], [place] | [place] [address] | | | | | [address] | [phone] | | | | | [phone] | | | +--------+ + + + [...] this encounter Miscellaneous Notes Telephone Encounter - Adrian Khan, Trouble Tracer - 02/26/2019 9:47 AM PSTCalled bobby Gilliam back at [phone] and she wanted to reschedule pts appt to have doctors rupali ts all in one day for less travel. elephone Encounter - Rupa Irene - 02/26/2019 8:22 AM PSTChristina, is calling regarding Follow-up (Reschedule ) and would like a call back. Additional Call Details: Calling to reschedule appointment 03/08. Please call her back at If this is a symptom based call, was patient offered triage? Not Applicable If this is a symptom based call and you were unable to immediately transfer the call to a ainsley lloyd utility spray operator was caller made aware that if at [...] | | | | Visit | | [address] | | | | | | [place] [address] | | | | | | [phone] | | | | | | | | +--------+ + + + + documented as of this encounter Visit Diagnoses Not on filedocumented in this encounter"
--- OUTSIDE RECORDS SUMMARY | ~2019-10-06 | XMS | Encounter Summary ---
Demographics + + + | Address | [address] | | | [place] [address] | + + + | Home Phone | | + + + | Preferred Language | Unknown | + + + | Marital Status | | + + + | Jainism Affiliation | Unknown | + + + | Race | Unknown | + + + | Ethnic Group | Unknown | + + + Author + + + | Author | [facility] | | | and [place] | + + + | Organization | [facility] | | | [...] Team Providers + +------+ + | Care Protective Services Officer Name | Role | Phone | + +------+ + PCP | Unavailable | + +------+ + Encounter Details +--------+ + + + + | Date | Type | Department | Care Team | Description | +--------+ + + + + | 01/08/ | Hospital | [facility] | Fabián Salas | | | 2010 - | Encounter | MED [facility] | MD Miller [address] | | | | CENTER [address] | [address] | | | 02/04/ | | [place] | [place] [address] | | | 2010 | | [address] | [phone] | | | | | [phone] | | | +--------+ + + + [...] 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 Fortino hodge is the [...] | | | | Visit | | [facility] | | | | | | [place] [address] | | | | | | [phone] | | | | | | | [...] [facility] | | | activity | Performed: Jeff Davis | | . MIC[facility]EL | | | | [facility] | | MEDICAL | | | | [place], [facility] [address], | | [place] - | | | | [place] [address] | | LABORATORY | | | | CLIA: [id number] | | | | + + + + + + + + | Specimen | + + | | + + + + + + + | Performing | Address | City/State/Zipcode | Phone Number | | Organization | | | | + + + + + | [facility] | [address] | [place] | [phone] | | [facility] | | [address] | | | - LABORATORY | | | | + + + + + | [facility] | [address] | [place] | | | [facility] | | [address], [facility] | | | - LABORATORY | | [...] Testing | 70 - 145 % | [facility] | | | activity | Performed: [facility] | | STR[facility]EL | | | | [facility] | | MEDICAL | | | | Center, [address], | | CENTER - | | | | [place] [address] | | LABORATORY | | | | CLIA: [id number] | | | | + + + + + + + + | Specimen | + + | | + + + + + + + | Performing | Address | City/State/Zipcode | Phone Number | | Organization | | | | + + + + + | [facility] | [address] | [place] | [phone] | | [facility] | | [address] | | | - LABORATORY | | | | + + + + + | [facility] | [address] | [place] | | | [facility] | | [address] | | | - LABORATORY [...] | | | Time | | | [facility] | | [...] | | LABORATORY | | | | [facility] | | | | | | Center, [address], | | | | | | [place] [address] | | | | | | [place]ALLO[place]: [id number] | | | | + + + + + + + + | Specimen | + + | | + + + + + + + | Performing | Address | City/State/Zipcode | Phone Number | | Organization | | | | + + + + + | [facility] | [address] | [place] | [phone] | | [facility] | | [address] | | | - LABORATORY | | | | + + + + + | [facility] | [address] | [place] | | | [facility] | | [address], [facility] | | | - LABORATORY | | [...] | Real Time PCR | () | [facility] | | | | | | [facility] | | | | | | MEDICAL | | | | | | [place] - | | | | | | [...] IS FDA APPROVED AND | | [facility] | | | 2 | IS INTENDED FOR IN | | MEDICAL | | | | VITRO DIAGNOSTIC USE. | | CENTER - | | | | This test is performed | | LABORATORY | | | | pursuant to an | | | | | | agreement with [employer] | | | | | | [employer] | | | | | | [...] Toño | | | | | | [facility] | | | | | | [place], [address], | | | | | | [place] [address] | | | | | | [place]: [id number] | | | | + + + + + + + + | Specimen | + + | | + + + + + + + | Performing | Address | City/State/Zipcode | Phone Number | | Organization | | | | + + + + + | [facility] | [address] | [place] | [phone] | | [facility] | | [address] | | | - LABORATORY | | | | + + + + + | [facility] | [address] | [place] | | | [facility] | | [address], [facility] | | | - LABORATORY | | [...] Negative A | 0.0 - 1.2 | [facility] | | | ratio | Lupus Inhibitor [...] Performed: | | | | | | [facility] | | | | | | [facility], [address] | | | | | | [address] [place] [address] | | | | | | CLIA: [id number] | | | | + + + + + + + + | Specimen | + + | | + + + + + + + | Performing | Address | City/State/Zipcode | Phone Number | | Organization | | | | + + + + + | [facility] | [address] | [place] | [phone] | | [facility] | | [address] | | | - LABORATORY | | | | + + + + + | [facility] | [address] | [place] | | | [facility] | | [address] | | | - LABORATORY [...] 2.6Comment: A ratio of | >1.9 | [facility] | | | Protein C | less than 2.0 is | | [facility] | | | Resistance | suggestive of APC | | MEDICAL | | | | Resistance. Testing | | CENTER - | | | | Performed: Toño | | LABORATORY | | | | [facility] | | | | | | Center, [address], | | | | | | [place] [address] | | | | | | CLIA: [id number] | | | | + + + + + + + + | Specimen | + + | | + + + + + + + | Performing | Address | City/State/Zipcode | Phone Number | | Organization | | | | + + + + + | [facility] | [address] | [place] | [phone] | | [facility] | | [address] | | | - LABORATORY | | | | + + + + + | [facility] | [address] | [place] | | | [facility] | | [address] | | | - LABORATORY [...] | | | n III | Performed: [facility] | | [facility] | | | Antigen | [facility] | | MEDICAL | | | | [place], [address] , | | CENTER - | | | | [place] [address] | | LABORATORY | | | | CLIA: [id number] | | | | + + + + + + + + | Specimen | + + | | + + + + + + + | Performing | Address | City/State/Zipcode | Phone Number | | Organization | | | | + + + + + | [facility] | [address] | [place], [place] | [phone] | | [facility] | | [address] | | | - LABORATORY | | | | + + + + + | [facility] | [address] | [place], [place] | | | [facility] | | [address] [place] [address] | | | - LABORATORY | | [...] | | | TIME | | | [facility] | | | | | | MEDICAL | | | | | | CENTER - | | | | | | LABORATORY | | + + + + + + | Thrombin | 18.7Comment: Testing | 15.6 - 20.0 sec | [facility] | | | Time, | Performed: [facility] | | [facility] | | | Control | [facility] | | MEDICAL | | | | Center, [address] , | | CENTER - | | | | [place] [address] | | LABORATORY | | | | CLIA: [id number] | | | | + + + + + + + + | Specimen | + + | | + + + + + + + | Performing | Address | City/State/Zipcode | Phone Number | | Organization | | | | + + + + + | [facility] | [address] | [place], [place] | [phone] | | [facility] | | [address] | | | - LABORATORY | | | | + + + + + | [facility] | [address] | [place], [place] | | | [facility] | | [facility], [facility] | | | - LABORATORY | | [...] tidylserine | of phosphatidylserine | | [facility] | | | IgM | antibodies may [...] Performed: | | | | | | [facility], [address], | | | | | | [place] [address] | | | | | | CLIA: [id number] | | | | + + + + + + + + | Specimen | + + | | + + + + + + + | Performing | Address | City/State/Zipcode | Phone Number | | Organization | | | | + + + + + | [facility] | [address] | [place] | [phone] | | [facility] | | [address] | | | - LABORATORY | | | | + + + + + | [facility] | [address] | [place], [place] | | | [facility] | | [address], [facility] | | | - LABORATORY | | [...] | | | N ACTIVITY | Performed: Jeff [facility] | | [facility] | | | | [facility] | | MEDICAL | | | | Center, [address], | | CENTER - | | | | [place] [address] | | LABORATORY | | | | [place]: [id number] | | | | + + + + + + + + | Specimen | + + | | + + + + + + + | Performing | Address | City/State/Zipcode | Phone Number | | Organization | | | | + + + + + | [facility] | [address] | [place], [place] | [phone] | | [facility] | | [address] | | | - LABORATORY | | | | + + + + + | [facility] | [address] | [place] | | | [facility] | | [address] | | | - LABORATORY | | | | + + + + + Protime INR (01/08/2011 12:47 PM PDT) + + + + + + | Component | Value | Ref Range | Performed | Pathologist | | | | | At | Signature | + + + + + + | Prothrombin | 12.7 | 11.3 - 13.9 | [facility] | | | Time | | seconds | [facility] | | | | | | MEDICAL | | | | | | CENTER - | | | | | | LABORATORY | | + + + + + + | INR | 1.0Comment: INR: USUAL | 0.9 - 1.1 | [facility] | | | | ORAL ANTICOAGULATION | | [facility] | | | | RANGE | | [address] | [place] | [phone] | | [facility] | | [address] | | | - LABORATORY | | | | + + + + + | [facility] | [address] | [place], [place] | | | [facility] | | [address], [facility] | | | - LABORATORY | | [...] + | [facility] | [address] | [place], [place] | [phone] | | [facility] | | [address] | | | - LABORATORY | | | | + + + + + | [facility] | [address] | [place], [place] | | | [facility] | | [address] [place] [address] | | | - LABORATORY | | [...] [address] | [place] | [phone] | | [facility] | | [address] | | | - LABORATORY | | | | + + + + + | [facility] | [address] | [place], [place] | | | [facility] | | [address], [facility] | | | - LABORATORY | | [...] 9 | 7 - 18 mg/dL | [facility] | | | | | | [facility] | | | | | | MEDICAL | | | | | | CENTER - | | | | | | LABORATORY | | + + + + + + | Creatinine | 0.58 (L) | 0.60 - 1.30 | [facility] | | | | | mg/dL | [facility] | | | | | | MEDICAL | | | | | | CENTER - | | | | | | LABORATORY | | + + + + + + | Estimated | >60Comment: For | >60 mL/min/A | [facility] | | | GFR | -Americans, | [...] | | ine Ratio | | | [facility] | | [...] + | [facility] | [address] | [place] | [phone] | | [facility] | | [address] | | | - LABORATORY | | | | + + + + + | [facility] | [address] | [place], [place] | | | [facility] | | [address] | | | - LABORATORY | | | | + + + + + Lactate Dehydrogenase (01/08/2011 12:47 PM PDT) + +-------+ + + + | Component | Value | Ref Range | Performed | Pathologist | | | | | At | Signature | + +-------+ + + + | LDH TOTAL | 154 | 91 - 180 IU/L | [facility] | | | | | | ST. [...] + + | [facility] | [address] | [place] | [phone] | | [facility] | | [address] | | | - LABORATORY | | | | + + + + + | [facility] | [address] | [place] | | | [facility] | | [address], [facility] | | | - LABORATORY | | | | + + + + + CBC with Differential (01/08/2011 12:47 PM PDT) + + + + + + | Component | Value | Ref Range | Performed | Pathologist | | | | | At | Signature | + + + + + + | WBC | 7.7 | 4.0 - 11.0 K/uL | [facility] | | | | | | [facility] | | | | | | MEDICAL | | | | | | CENTER - | | | | | | LABORATORY | | + + + + + + | RBC | 4.75 | 3.70 - 5.20 | [facility] | | | | | M/uL | [facility] | | | | [...] | | | Basophils | | | [facility] | | [...] [address] | [place] | [phone] | | [facility] | | [address] | | | - LABORATORY | | | | + + + + + | [facility] | [address] | [place] | | | [facility] | | [address] | | | - LABORATORY | | | | + + + + + documented in this encounter Visit Diagnoses Not on filedocumented in this encounter"
--- OUTSIDE RECORDS SUMMARY | ~2019-10-06 | XMS | Encounter Summary ---
Demographics + + + | Address | [address] | | | [place] [address] | + + + | Home Phone | | + + + | Preferred Language | Unknown | + + + | Marital Status | | + + + | Hoahaoism Affiliation | Unknown | + + + | Race | Unknown | + + + | Ethnic Group | Unknown | + + + Author + + + | Author | [facility] | | | and [place] | + + + | Organization | [facility] | | | and [...] Team Providers + +------+ + | Care Vice President For Instruction Name | Role | Phone | + [...] | | | | [place] | [phone] | | | | | [address] | | | | | | [phone] | | | +--------+ + + + [...] | | | | Visit | | [address] | | | | | | [place] [address] | | | | | | [phone] | | | | | | | | +--------+ + + + + documented as of this encounter Visit Diagnoses Not on filedocumented in this encounter"
--- OUTSIDE RECORDS SUMMARY | ~2019-10-06 | XMS | Encounter Summary ---
Demographics + + + | Address | [address] | | | [place] [address] | + + + | Home Phone | | + + + | Preferred Language | Unknown | + + + | Marital Status | | + + + | Muslim Affiliation | Unknown | + + + | Race | White | + + + | Ethnic Group | Not or | + + + Author + + + | Author | [facility] | + + + | Organization | [facility] | + + + | [...] Team Providers + +------+ + | Care Kiln Remover Name | Role | Phone | + +------+ + | Erlinda Oneal PA-C | PCP | | + +------+ + Encounter Details +--------+ + + + + | Date | Type | Department | Care Team | Description | +--------+ + + + + | 11/11/ | Outside | Neurophysiology | Dmitri, | | | 2015 | Referral | EEG at [facility] [address] | [address] | | | | Order | [address] | RONNIE Newsome | | | | | [facility] | [place] [address] | | | | | [place], [place] [facility] | [phone] | | | | | [place], [place] | | | | | | [address] | | | | | | [phone] | | | +--------+ + + + [...] 1965 Medical | | | Record Number: [id number] Date of Test: 11/11/2014 Place of Service: | | | [facility] Department: EEG [facility] - [id number] SLEEP DEPRIVED | | | EEG Indication: [...] attenuates with eye opening. There are frequent extfa-lfv-ogzp | | | discharges occurring at 2 Hz with a broad generalized field, though | | | consistently with a F3-C3-P3 lead-in. Dagtx-shi-rzax discharges | | | generally have no clinical correlate. Photic stimulation results in a | | | symmetric photic driving response. At 20 Hz flash frequency, there | | | is a 5 second run of liovx-cur-lmnv discharges, initially at 2 Hz | | [...] drowsy routine EEG. | | | Frequent rjspn-bcb-lsjw discharges with a generalized field (though | | | consistently with a left mntpup-dnfitd-cshbraiy lead-in), with | | | activation during hyperventilation and photic stimulation, in the | | | context of clinical history is most consistent with a primary | | | generalized epilepsy though focal onset with rapid bilateral | | | synchrony cannot be ruled out entirely. There was one possible | | | clinical event of subtle myoclonus associated with nvuzw-mwg-hofg | | | discharges during photic stimulation though video quality was poor. 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
--- OUTSIDE RECORDS SUMMARY | ~2019-10-06 | XMS | Encounter Summary ---
Demographics + + + | Address | [address] | | | [place] [address] | + + + | Home Phone [...] | + + +---------+ + | Amado rAaiza | ECON | Unknown | | + + +---------+ + Care Team Providers + +------+ + | Care Silverware Washer Name | Role | Phone | + +------+ + PCP | Unavailable | + +------+ + Encounter Details +--------+ + + + + | Date | Type | Department | Care Team | Description | +--------+ + + + + | 11/08/ | Emergency | LOCATED WITHIN [facility] | Patrick Huston, | Patient left before | | 2013 | | MEDICAL CENTER | MD [address] | treatment completed | | | | EMERGENCY CENTER | [place], [place] | | | | | [address] | [address] | | | | | [place], [place] | [phone] | | | | | [address] | | | | | | [phone] | | | +--------+ + + + [...] 11/08/132155 Date of Service: 11/08/132155 Status: Signed Kitchen Steward/Stewardess: Florencia Lancaster RN (Registered Nurse) No belongings in pt room, no people noted in pt room. Florencia Lancaster RN 11/08/132155 onver elaina Transaction, Provider Unknown - 11/08/2013 9:52 PM PDT ED Notes by Marysol Kramer RN at 11/08/132151 Author: Marysol Kramer RN Service: (none) Author Type: Registered Nurse Filed: 11/08/132151 Date of Service: 11/08/132151 Status: Signed Kitchen Steward/Stewardess: Marysol Kramer RN (Registered Nurse) Patient left the room at this time. Marysol Kramer RN 11/08/132151 onver elaina Transaction, Provider Unknown - 11/08/2013 9:49 PM PDT ED Notes by Marysol Kramer RN at 11/08/132148 Author: Marysol Kramer RN Service: (none) Author Type: Registered Nurse Filed: 11/08/132151 Date of Service: 11/08/132148 Status: Signed Kitchen Steward/Stewardess: Marysol Kramer RN (Registered Nurse) Pt caregiver [...] 11/08/132142 Date of Service: 11/08/132141 Status: Signed Kitchen Steward/Stewardess: Florencia Lancaster RN (Registered Nurse) Pt caregiver at nurses station asking if pt can just go home, pt states she has a doctor's appt at nine tomorrow and wonders if she can have something orally for nausea and diarrhea Florencia Lancaster RN 11/08/132142 ranshleton chisholm, Patrick Huynh MD - 11/08/2013 9:22 PM PDT ED Provider Notes by Patrick Huston MD at 11/08/132121 Author: Patrick Huston MD Service: (none) Author Type: Physician Filed: 11/09/13 0237 Date of Service: 11/08/132121 Status: Signed Kitchen Steward/Stewardess: Patrick Huston MD (Physician) [facility] Department of Emergency Medicine 9:22 PM History [...] Procedure: TRACHEOSTOMY; Surgeon: Fabián Novoa MD; Location: [facility] MAIN OR; Service: ENT ; [...] by mouth daily. TAKE TWO TABLETS BY [facility] NOW then ONE TABLET DAILY DAY 2-5 [...] reviewed (Using the electronic record system of [facility], Hermila tirado reviewed the records with regard [...] 11/08/132127 Date of Service: 11/08/132120 Status: Signed Kitchen Steward/Stewardess: Florencia Lancaster RN (Registered Nurse) Pt c/o [...] nted in this encounter Plan of Treatment +--------+ + + + + | Date | Type | Specialty | Care Team | Description | +--------+ + + + + | 10/05/ | Virtual | Neurology | Elaine Andrews, | | | 2019 | Office | | MD [address] | | | | Visit | | [facility] [address] | | | | | | [place] [address] | | | | | | [phone] | | | | | | | | +--------+ + + + + documented as of this encounter Visit Diagnoses + + | Diagnosis | + + | Patient left before treatment completed Personal history of noncompliance with | | medical treatment, presenting hazards to health | + + documented in this encounter
--- OUTSIDE RECORDS SUMMARY | ~2019-10-06 | XMS | Encounter Summary ---
Demographics + + + | Address | [address] | | | [place] [address] | + + + | Home Phone | | + + + | Preferred Language | Unknown | + + + | Marital Status | | + + + | Mormon Affiliation | Unknown | + + + | Race | Unknown | + + + | Ethnic Group | Unknown | + + + Author + + + | Author | [facility] | | | and [place] | + + + | Organization | [facility] | | | [...] Team Providers + +------+ + | Care Mosaic Tiler Name | Role | Phone | + +------+ + PCP | Unavailable | + +------+ + Encounter Details +--------+ + + + + | Date | Type | Department | Care Team | Description | +--------+ + + + + | 10/06/ | Hospital | [facility] | Conversion | Unknown cause of | | 2015 | Encounter | [address] | Transaction, | injury | | | | [address] | Provider Unknown | | | | | [place], [place] | | | | | | [address] | (Fax) | | | | | [phone] | | | +--------+ + + + [...] | | | | Visit | | [employer] [address] | | | | | | [place] [address] | | | | | | [phone] | | | | | | | [...]
--- OUTSIDE RECORDS SUMMARY | ~2019-10-06 | XMS | Encounter Summary ---
Demographics + + + | Address | [address] | | | [place] [address] | + + + | Home Phone | | + + + | Preferred Language | Unknown | + + + | Marital Status | | + + + | Voodoo Affiliation | Unknown | + + + | Race | Unknown | + + + | Ethnic Group | Unknown | + + + Author + + + | Author | [facility] | | | and [place] | + + + | Organization | [facility] | | | [...] Team Providers + +------+ + | Care Licensed Funeral Director And Embalmer Name | Role | Phone | + +------+ + | yMnor Kam MD | PCP | | + +------+ + Encounter Details +--------+ + + + + | Date | Type | Department | Care Team | Description | +--------+ + + + + | 06/11/ | Orders Only | [facility] | Matt, | | | 2016 | | PULMONOLOGY [address] | [place] [address], | | | | | [address] | [address] | | | | | [facility] [place] | [place], | | | | | [address] | [place] [address] | | | | | [phone] | [phone] | | | | | | | [...] | | | Visit | | [address] | | | | | | [place] [address] | | | | | | [phone] | | | | | | | | +--------+ + + + + documented as of this encounter Visit Diagnoses Not on filedocumented in this encounter"
--- OUTSIDE RECORDS SUMMARY | ~2019-10-06 | XMS | Encounter Summary ---
Demographics + + + | Address | [address] | | | [place] [address] | + + + | Home Phone | | + + + | Preferred Language | Unknown | + + + | Marital Status | | + + + | Druze Affiliation | Unknown | + + + | Race | Unknown | + + + | Ethnic Group | Unknown | + + + Author + + + | Author | [facility] | | | and [place] | + + + | Organization | [facility] | | | [...] Team Providers + +------+ + | Care Animal Physiology Teacher Name | Role | Phone | [...] + + | 09/16/ | Telephone | [facility] | Matt, | Appointment | | 2020 | | PULMONOLOGY [address] | [address]ora, | | | | | [address] [place] [address] | [address] | | | | | [place], [place] | [place], | | | | | [address] | [place] [id number] | | | | | [phone] | [phone] | | | | | | | [...] - 09/17/2019 8:51 AM Bry, is calling special care hospital Appointment and would like a call back. Additional Call Details: Patient would like a call back in regards to getting help/informa tion about the [employer] [facility] for her 09/20 Appointment. Can be reached at Home Number list in Fal[place] nanda If this is a symptom based call, was patient offered triage? Not Applicable If this is a symptom based call and you were unable to immediately transfer the call to a ainsley lloyd fabric and accessories estimator was caller made aware that if at [...] | | | | Visit | | [employer] [address] | | | | | | [place] [address] | | | | | | [phone] | | | | | | | | +--------+ + + + + documented as of this encounter Visit Diagnoses Not on filedocumented in this encounter"
--- OUTSIDE RECORDS SUMMARY | ~2019-10-06 | XMS | Encounter Summary ---
Demographics + + + | Address | [address] | | | [place] [address] | + + + | Home Phone | | + + + | Preferred Language | Unknown | + + + | Marital Status | | + + + | Pentecostal Affiliation | Unknown | + + + | Race | Unknown | + + + | Ethnic Group | Unknown | + + + Author + + + | Author | [facility] | | | and [place] | + + + | Organization | [facility] | | [...] Team Providers + +------+ + | Care Haul Truck Driver Name | Role | Phone | + +------+ + | Mynor Kam MD | PCP | | + +------+ + Encounter Details +--------+ + + + + | Date | Type | Department | Care Team | Description | +--------+ + + + + | 06/26/ | Orders Only | [facility] | Matt, | | | 2016 | | PULMONOLOGY [address] | [place] [address]ora, | | | | | [address] | [address] | | | | | [facility] [place] | [place] [address] [place], | | | | | [address] | [place] [address] | | | | | [phone] | [phone] | | | | | | | [...] D | | | | | | [place] [address] | | | | | | [phone] | | | | | | | | +--------+ + + + + documented as of this encounter Visit Diagnoses Not on filedocumented in this encounter"
--- OUTSIDE RECORDS SUMMARY | ~2019-10-06 | XMS | Encounter Summary ---
Demographics + + + | Address | [address] | | | [place] [address] | + + + | Home Phone [...] Team Providers + +------+ + | Care Centerless Grinder Set Up Operator Name | Role | Phone | + +------+ + | Mynor Kam MD | PCP | | + +------+ + Encounter Details +--------+ + + + + | Date | Type | Department | Care Team | Description | +--------+ + + + + | 09/20/ | Virtual | [facility] | Matt, | Uncontrolled | | 2020 | Office | PULMONOLOGY [address] | [place] Arora, | moderate persistent | | | Visit | [address] | MD [address] | asthma (Primary Dx); | | | | 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 Service was provided jjsc-pa-xkqe with the patient via interactive videoconferencing Time Based Coding Total time (in minutes) including non jwkf-pd-qpqg time (reviewing records, documentation, etc..) 30 You have chosen to receive care through the use of telemedicine. Telemedicine enables [facility] care providers at different locations to [...] they are located in a state where IEsperanza M D am licensed. Subjective Patient ID: [...] COOPER and obesity, who was admitted to [facility] from 05/05/13 to 05/14/13 for acut e respiratory failure from ARDS due to H1N1 infection. Her course was long and difficult -celestine hodge eventually underwent a tracheostomy insertion by Dr Bright Teixeira), and then she was eventua lly moved to an acute Rehab facility close to [place] ([facility]). She reports abi t she had a horrible time here. After close to a week of staying in the facility, her trache ostomy tube managed to fall out and she suffered from hypoxemia with bilateral lung atelecta sis. She was brought to [facility] where they put her trach [...] and more dependent on her c are behaviorist for her ADLs and chores at home. [...] the past. S he has lived in [place] most of her life. She now lives in [place]. She lived in [place] for two years when she was younger. She has no animals at home. She has no known exposures to c hemica/toxic fumes. No exposures to asbestos. She has no hot tubs and no swamp coolers. The following elements of the patient's history were reviewed and updated as appropriate. T ray are available elsewhere in the patient record. [...] Date Asthma Bronchitis DVT (deep venous thrombosis) ([facility]) in thigh; no longer on coumadin Dvt femoral (deep venous thrombosis) ([facility]) Epilepsy (HCC) Fibromyalgia Fibromyalgia HX OTHER MEDICAL [...] Procedure: TRACHEOSTOMY; Surgeon: Fabián Novoa MD; Location: [facility] MAIN OR; Service: ENT; Laterality: N/A; [...] PCP for a referral t o the [facility]. 6. End stage liver disease [...] Gutierrez MD Pulmonary and Critical Care Medicine [facility] [address] , [place] [address] documente d in this encounter Plan of [...] D | | | | | | [place] [address] | | | | | | [phone] | | | | | | | [...]
--- OUTSIDE RECORDS SUMMARY | ~2019-10-06 | XMS | Encounter Summary ---
Demographics + + + | Address | [address] | | | [place] [address] | + + + | Home Phone | | + + + | Preferred Language | Unknown | + + + | Marital Status | | + + + | Oriental Orthodox Affiliation | Unknown | + + + | Race | Unknown | + + + | Ethnic Group | Unknown | + + + Author + + + | Author | [facility] | | | and [place] | + + + | Organization | [facility] | | | [...] Team Providers + +------+ + | Care Freelance Displayer Name | Role | Phone | + [...] + + | 05/06/ | Refill | [facility] | Rosa M Raman, | Medication Refill | | 2020 | | NEUROLOGY [address] | MD [address] | | | | | [address] [place] | [address] | | | | | [place], [place] | [place] [address] | | | | | [address] | [phone] | | | | | [phone] | | | +--------+--------+ + + + [...] encounter Miscellaneous Notes Telephone Encounter - Miranda Coulter, Senior Benefits Analyst - 05/07/2019 4:22 PM PSTGabapent in 300 [...] ented in this encounter Plan of Treatment +--------+ + + + + | Date | Type | Specialty | Care Team | Description | +--------+ + + + + | 10/05/ | Virtual | Neurology | Elaine Andrews, | | 2019 | Office | | MD [address] | | | | Visit | | [facility] | | | | | | [place] [address] | | | | | | [phone] | | | | | | | | +--------+ + + + + documented as of this encounter Visit Diagnoses Not on filedocumented in this encounter"
--- OUTSIDE RECORDS SUMMARY | ~2019-10-06 | XMS | Encounter Summary ---
Demographics + + + | Address | [address] | | | [place] [address] | + + + | Home Phone | | + + + | Preferred Language | Unknown | + + + | Marital Status | | + + + | Anabaptism Affiliation | Unknown | + + + | Race | Unknown | + + + | Ethnic Group | Unknown | + + + Author + + + | Author | [facility] | | | and [place] | + + + | Organization | [facility] | | [...] Team Providers + +------+ + | Care Phd Intern Name | Role | Phone | + +------+ + | Mynor Kam MD | PCP | | + +------+ + Encounter Details +--------+ + + + + | Date | Type | Department | Care Team | Description | +--------+ + + + + | 12/17/ | Orders Only | [facility] | Conversion | | | 2017 | | CONVERSION [address] | Transaction, | | | | | [address] | Provider Unknown | | | | | [place] | [phone] | | | | | [address] | | | | | | [phone] | | | +--------+ + + + [...] | | | | Visit | | [employer] [address] | | | | | | [place] [address] | | | | | | [phone] | | | | | | | | +--------+ + + + + documented as of this encounter Visit Diagnoses Not on filedocumented in this encounter"
--- OUTSIDE RECORDS SUMMARY | ~2019-10-06 | XMS | Clinical Summary ---
Demographics + + + | Address | [address] | | | [place] [address] | + + + | Home Phone | | + + + | Preferred Language | Unknown | + + + | Marital Status | | + + + | Jewish Affiliation | Unknown | + + + | Race | White | + + + | Ethnic Group | Not or | + + + Author + + + | Author | [facility] | + + + | Organization | [facility] | + + + | [...] Team Providers + +------+ + | Care Access Representative Name | Role | Phone | + +------+ + | Erlinda Oneal PA-C | PCP | | + +------+ + Source Comments FAB is fully live on both [facility] and [facility] InPatient.[facility] Allergies Not on File Medications Not on file Active Problems Not on file Encounters +--------+ + + + + | Date | Type | Specialty | Care Team | Description | +--------+ + + + + | 07/26/ | Telephone | Liver Transplant | Ayana House, | Pre Transplant | | 2019 | | | RN | Workup (Intake) | +--------+ + + + + from Last 3 Months Social History + +-------+ +--------+------+ | Tobacco [...] (Flu) | | | | | vaccination (Season | 0 | | | | Ended) | | | | + + + + + | Pneumococcal | Completed | 05/06/2013 | | | vaccination | | | | + + + + + Results Not on filefrom Last 3 Months Insurance + +--------+ +--------+ + +--------+ | Payer | Benefi | Subscriber | Effect | Phone | Address | Type | | | t Plan | ID | matthew | | | | | | / | | Dates | | | | | | Group | | | | | | + +--------+ +--------+ + +--------+ | MEDICARE | MEDICA | xxxxxxxxxxx | 10/06/19 | [phone] | [address] | [address] | | | RE A & | | [address] | [address] | [address] | | | [address] | | sent | | [place] | | | | | | | | [address] | | + +--------+ +--------+ + +--------+ | MEDICAID [place] | OHP | xxxxxxxx | | [phone] | [address] | [address] | | | PLUS | | [phone] | [phone] | [phone] | id | | | OPEN | | esent | | [place], [place] | | | | CARD | | | | [id number] | | + +--------+ +--------+ + +--------+ + +--------+ +--------+ + + | Guarantor Name | Accoun | Relation to | Date | Phone | Billing Address | | | t Type | Patient | of | | | | | | | | | | + +--------+ +--------+ + + | Gilma Araiza | Person | Self | [birth year] | [address] | [address] | al/Fam | | 1966 | [phone] | [place] [address] | | | fausto | | | 3 (Home) | | + +--------+ +--------+ + +"
--- OUTSIDE RECORDS SUMMARY | ~2019-10-06 | XMS | Encounter Summary ---
Demographics + + + | Address | [address] | | | [place] [address] | + + + | Home Phone [...] Team Providers + +------+ + | Care Blood Bank Assistant Name | Role | Phone | + +------+ + | Mynor Kam MD | PCP | | + +------+ + Reason for Visit + +--------+ + | Reason | Onset | Comments | | | Date | | + +--------+ + | Medication Prior | 06/01/ | Ashley my meds DREW- Deedeeovisarika 140 mg requested by | | Authorization [...] + + | 06/01/ | Telephone | [facility] | Tyler, | Medication Prior | | 2019 | | NEUROLOGY [address] | ROBERTA Guaman | Authorization (Cover | | | | [address] | | my meds PA- [employer]ig | | | | [place], [place] | | 140 mg requested by | | | | [address] | | Dr. Andrews); | | | | [phone] | | Other (Placed on | | [...] May 2019- May 2020. Reason for denial: [facility] does not cover all services and supplies. Unable to be cov ered under [facility] due to dual coverage. [facility] does not cover medication unde r patient's benefits. Please ask pharmacy to bill Medicare Part D benefits for medication. E lectronically signed by Rowena Scott CMA at 06/10/2019 8:10 AM PSTTelephone Encounter - Rowena Scott CMA - 06/01/2019 2:58 PM PSTStarted PA for Aimovig 140 SQ inject. On cover my meds. Gaston # (Gaston: [id number]) Message prompt: [facility] has not yet replied to your PA request. If [facility] has not replied to your request within 24 hours, please contact [facility] at [phone]. Will await for response. 3:0 1 PM [...] D | | | | | | [place] [address] | | | | | | [phone] | | | | | | | | +--------+ + + + + documented as of this encounter Visit Diagnoses Not on filedocumented in this encounter"
--- OUTSIDE RECORDS SUMMARY | ~2019-10-06 | XMS | Encounter Summary ---
Demographics + + + | Address | [address] | | | [place] [address] | + + + | Home Phone [...] + | Author | [facility] | | | and [place] | + + + | Organization | [facility] | | | and [place] | + + + | Address | Unknown | + + + | Phone | Unavailable | + + + Support + + +---------+ + | Name | Relationship | Address | Phone | + + +---------+ + | Amado Ariaza | ECON | Unknown | | + + +---------+ + Care Team Providers + +------+ + | Care Steel Spar Operator Name | Role | Phone | [...] [address] | | | | | [place] [address] | | | | | [address] | [place] [address] | | | | | [phone] | [phone] | | | | | | | [...] | | | | Visit | | [employer] [address] | | | | | | [place] [address] | | | | | | [phone] | | | | | | | [...] + + + | Red Blood | 4.31 | 3.70 - 5.10 | EXTERNAL | | | Cells | | 10*6/uL | LAB | | | Counted | | | [...] | | | | using the MDRD IDMN | | | | | | traceable [...]
--- OUTSIDE RECORDS SUMMARY | ~2019-10-06 | XMS | Encounter Summary ---
Demographics + + + | Address | [address] | | | [place] [address] | + + + | Home Phone | | + + + | Preferred Language | Unknown | + + + | Marital Status | | + + + | Buddhist Affiliation | Unknown | + + + | Race | Unknown | + + + | Ethnic Group | Unknown | + + + Author + + + | Author | [facility] | | | and [place] | + + + | Organization | [facility] | | [...] Team Providers + +------+ + | Care Shingles Roofer Name | Role | Phone | + [...] Provider Unknown | | | | | [facility] [place] | | | | | | [phone] | (Fax) | | | | | [phone] | | | +--------+ + + + [...] D | | | | | | [place] [address] | | | | | | [phone] | | | | | | | [...] Procedure Note | + + | FoxErmias - 11/20/2018 1:53 PM PDT This is a non-reportable procedure | | without a radiologist report and isused for image storage only | + + documented in this encounter Visit Diagnoses + + | Diagnosis | + + | Pain Generalized pain | + + documented in this encounter"
--- OUTSIDE RECORDS SUMMARY | ~2019-10-06 | XMS | Encounter Summary ---
Demographics + + + | Address | [address] | | | [place] [address] | + + + | Home Phone | | + + + | Preferred Language | Unknown | + + + | Marital Status | | + + + | Presybeterian Affiliation | Unknown | + + + | Race | Unknown | + + + | Ethnic Group | Unknown | + + + Author + + + | Author | [facility] | | | and [place] | + + + | Organization | [facility] | | [...] Team Providers + +------+ + | Care Sort Line Worker Name | Role | Phone | [...] | | | | [place] | [phone] | | | | | [address] | | | | | | [phone] | | | +--------+ + + + [...] | | | | Visit | | [employer] [address] | | | | | | [place] [address] | | | | | | [phone] | | | | | | | | +--------+ + + + + documented as of this encounter Visit Diagnoses Not on filedocumented in this encounter"
--- OUTSIDE RECORDS SUMMARY | ~2019-10-06 | XMS | Encounter Summary ---
Demographics + + + | Address | [address] | | | [place] [address] | + + + | Home Phone | | + + + | Preferred Language | Unknown | + + + | Marital Status | | + + + | Anabaptist Affiliation | Unknown | + + + | Race | Unknown | + + + | Ethnic Group | Unknown | + + + Author + + + | Author | [facility] | | | and [place] | + + + | Organization | [facility] | | | [...] Team Providers + +------+ + | Care Dairy Science Teacher Name | Role | Phone | [...] Provider Unknown | | | | | [facility] [place] | | | | | | [address] | (Fax) | | | | | [phone] | | | +--------+ + + + [...] | | | | | [place] [address] | | | | | | [phone] | | | | | | | [...]
--- OUTSIDE RECORDS SUMMARY | ~2019-10-06 | XMS | Encounter Summary ---
Demographics + + + | Address | [address] | | | [place] [address] | + + + | Home Phone [...] + | Author | [facility] | | | and [place] | + + + | Organization | [facility] | | [...] Team Providers + +------+ + | Care Rn Eligibility Name | Role | Phone | + +------+ + | Mynor Kam MD | PCP | | + +------+ + Encounter Details +--------+ + + + + | Date | Type | Department | Care Team | Description | +--------+ + + + + | 06/15/ | Orders Only | [facility] | [facility], | | | 2013 | | PULMONOLOGY [address] | [address], | | | | | [address] | [address] | | | | | [facility] [place] | [place] [place], | | | | | [address] | [place] [address] | | | | | [phone] | [phone] | | | | | | | [...] D | | | | | | [place] [address] | | | | | | [phone] | | | | | | | | +--------+ + + + + documented as of this encounter Visit Diagnoses Not on filedocumented in this encounter"
--- OUTSIDE RECORDS SUMMARY | ~2019-10-06 | XMS | Encounter Summary ---
Demographics + + + | Address | [address] | | | [place] [address] | + + + | Home Phone | | + + + | Preferred Language | Unknown | + + + | Marital Status | | + + + | Baptism Affiliation | Unknown | + + + [...] Team Providers + +------+ + | Care Public Relations Analyst Name | Role | Phone | [...] Provider Unknown | | | | | [facility] [place] | | | | | | [address] | (Fax) | | | | | [phone] | | | +--------+ + + + [...] D | | | | | | [place] [address] | | | | | | [phone] | | | | | | | [...]
--- OUTSIDE RECORDS SUMMARY | ~2019-10-06 | XMS | Encounter Summary ---
Demographics + + + | Address | [address] | | | [place] [address] | + + + | Home Phone | | + + + | Preferred Language | Unknown | + + + | Marital Status | | + + + | Adventist Affiliation | Unknown | + + + | Race | White | + + + | Ethnic Group | Not or | + + + Author + + + | Author | [facility] | + + + | Organization | [facility] | + + + | Address [...] Providers + +------+ + | Care Coal Grader Name | Role | Phone | + +------+ + | Erlinda Oneal PA-C | PCP | | + +------+ + Reason for Visit + + + | Reason | Comments | + + + | Pre Transplant | Intake | | Workup | | + + + Encounter Details +--------+ + + + + | Date | Type | Department | Care Team | Description | +--------+ + + + + | 07/26/ | Telephone | Clinical | [facility], | Pre Transplant | | 2020 | | Transplant Services | RN [address] | Workup (Intake) | | | | [address] | [address] | | | | | [place], | [place], [place] | | | | | [place] [address] | [address] | | | | | [phone] | | | +--------+ + + + [...]
--- OUTSIDE RECORDS SUMMARY | ~2019-10-06 | XMS | Encounter Summary ---
Demographics + + + | Address | [address] | | | [place] [address] | + + + | Home Phone [...] + + + | Author | [facility] | + + + | Organization | [facility] | + + + | [...] Team Providers + +------+ + | Care Call Center Rn Name | Role | Phone | + +------+ + | Erlinda Oneal PA-C | PCP | | + +------+ + Encounter Details +--------+ + + + + | Date | Type | Department | Care Team | Description | +--------+ + + + + | 11/11/ | Outside | Neurophysiology | Dmitri, | | | 2015 | Referral | EEG at [facility] [address] | [address] | | | | Order | [address] | [address] | | | | | [facility] | [place] [address] | | | | | [place], [facility] Floor | [phone] | | | | | [place], [place] | | | | | | [address] | | | | | | [phone] | | | +--------+ + + + [...] 1965 Medical | | | Record Number: [id number] Date of Test: 11/11/2014 Place of Service: | | | [facility] Department: EEG [facility] - [id number] SLEEP DEPRIVED | | | EEG Indication: [...] attenuates with eye opening. There are frequent wanln-lox-aqsx | | | discharges occurring at 2 Hz with a broad generalized field, though | | | consistently with a F3-C3-P3 lead-in. Zfoag-ttx-aklj discharges | | | generally have no clinical correlate. Photic stimulation results in a | | | symmetric photic driving response. At 20 Hz flash frequency, there | | | is a 5 second run of ungxs-lbn-rgka discharges, initially at 2 Hz | | [...] drowsy routine EEG. | | | Frequent baeqb-jbu-ijuu discharges with a generalized field (though | | | consistently with a left lxljoc-iwvvmd-jvjwrahu lead-in), with | | | activation during hyperventilation and photic stimulation, in the | | | context of clinical history is most consistent with a primary | | | generalized epilepsy though focal onset with rapid bilateral | | | synchrony cannot be ruled out entirely. There was one possible | | | clinical event of subtle myoclonus associated with idvtu-gei-ekov | | | discharges during photic stimulation though video quality was poor. | | | Electronically signed on 11/11/2014 at 10:34 AM SCOTT CAMARILLO | | | Suggested CPT: 05318 - EEG Routine Awake Only Suggested Dx: | | | 345.00 - Epilepsy, General, non-convuls | | + + + documented in this encounter Visit Diagnoses Not on filedocumented in this encounter"
--- OUTSIDE RECORDS SUMMARY | ~2019-10-06 | XMS | Clinical Summary ---
Demographics + + + | Address | [address] | | | [place] [address] | + + + | Home Phone [...] Team Providers + +------+ + | Care Dredge Pipe Installer Name | Role | Phone | [...] 2 tabs 2 | | 2 | 07/ | | Activ | | (ZANAFLEX) 4 [...] | + + + +---------+------+------+-------+ | LANAbbyUS SOLOSTAR | Inject 35 Units into | [...] TAKE 4 CAPSULES BY | 300 | 2 | 04/1 | | Activ | | (NEURONTIN) 300 mg | MOUTH EVERY MORNING | capsule | | 7/20 | | e | | capsule | THEN TAKE 3 CAPSULES | | | 20 | | | | | EVERY NOON [...] | | + + + +---------+------+------+-------+ | sucralfate | Take 1 g by mouth 2 | | 0 | | 06/1 | Disco | | (CARAFATE) 1 g | times daily. | | | | 6/20 | ntinu | | tablet | | | | | 20 | ed | | | | | | | | (Ther | | | | | | | | apy | | | | | | | | compl | | | | | | | | eted) | + + + +---------+------+------+-------+ Active Problems [...] | 09/20/ | Virtual | Pulmonology | Matt | Uncontrolled | | 2019 | Office | | [...] | 09/16/ | Telephone | Pulmonology | Matt, | Appointment | | 2019 | | | Esperanza Arora, | | | | | | MD | | +--------+ + + + + | 07/22/ | Refill | Neurology | Elaine Andrews, | Medication Refill | | 2020 | | | MD | (refill) | +--------+ + + + + | 07/22/ | Telephone | Neurology | Enid Kaye | | | 2019 | | | MD Pasquale | | +--------+ + + + + [...] | | | Visit | | [address] | | | | | | [place] [address] | | | | | | [phone] | | | | | | | [...] +--------+ +---------+--------+ | MEDICARE | MEDICA | [id number] | 10/06/19 | [phone] | | Medica | | | RE | | 16-Pre | 5 | | re | | | PART A | | sent | | | | | | AND B | | | | | | + +--------+ +--------+ +---------+--------+ | [employer] | [employer] | [id number] | 11/10/19 | [phone] | | Medica | | MEDICAID HMO [...] | + +--------+ +--------+ + + | TeodoraGilma | Person | Self | [birth year] | [address] | | Mary | al/Greg | | 1966 | [phone] | [place] | | | fausto | | | 3 (Home) | [address] | + +--------+ +--------+ + + Advance Directives + + + + + | Type | Date Recorded | Patient | Explanation | | | | Product Marketer | | + + + + + | Power of | | | | | Clinical Engineering Director | | | | + + + + + | Advance | | | | | Directive | | | | + + + + +
--- OUTSIDE RECORDS SUMMARY | ~2019-10-06 | XMS | Encounter Summary ---
Demographics + + + | Address | [address] | | | [place] [address] | + + + | Home Phone [...] + + + | Author | [facility] | + + + | Organization | [facility] | + + + | Address [...] Team Providers + +------+ + | Care Engineering Coordinator Name | Role | Phone | [...] [address] | | | | | [place], | [place], [place] | | | | | [place] [address] | [address] | | | | | [phone] | | | +--------+ + + + [...]
--- OUTSIDE RECORDS SUMMARY | ~2019-10-06 | XMS | Encounter Summary ---
Demographics + + + | Address | [address] | | | [place] [address] | + + + | Home Phone [...] Providers + +------+ + | Care Manager Housekeeping Name | Role | Phone | + [...] | | | | [place] | [phone] | | | | | [address] | | | | | | [phone] | | | +--------+ + + + [...] | | | | Visit | | [employer] [address] | | | | | | [place] [address] | | | | | | [phone] | | | | | | | | +--------+ + + + + documented as of this encounter Visit Diagnoses Not on filedocumented in this encounter"
--- OUTSIDE RECORDS SUMMARY | ~2019-10-06 | XMS | Encounter Summary ---
Demographics + + + | Address | [address] | | | [place] [address] | + + + | Home Phone [...] Team Providers + +------+ + | Care Finance Clerk Name | Role | Phone | [...] | | | | [place] | [phone] | | | | | [address] | | | | | | [phone] | | | +--------+ + + + [...] | | | | Visit | | [address] | | | | | | [place] [address] | | | | | | [phone] | | | | | | | | +--------+ + + + + documented as of this encounter Visit Diagnoses Not on filedocumented in this encounter"
--- OUTSIDE RECORDS SUMMARY | ~2019-10-06 | XMS | Encounter Summary ---
Demographics + + + | Address | [address] | | | [place] [address] | + + + | Home Phone | | + + + | Preferred Language | Unknown | + + + | Marital Status | | + + + | Cheondoism Affiliation | Unknown | + + + | Race | Unknown | + + + | Ethnic Group | Unknown | + + + Author + + + | Author | [facility] | | | and [place] | + + + | Organization | [facility] | | | [...] Team Providers + +------+ + | Care Sap [place]rib[place] Consultant Name | Role | Phone | + +------+ + PCP | Unavailable | + +------+ + Encounter Details +--------+ + + + + | Date | Type | Department | Care Team | Description | +--------+ + + + + | 06/10/ | Emergency | [facility] | Edis Gudino MD | Cough; | | 2013 | | MEDICAL CENTER | [address] | Pneumonia | | | | EMERGENCY CENTER | [place] [address] | | | | | [address] | [phone] | | | | | [place], [place] | | | | | | [address] | | | | | | [phone] | | | +--------+ + + + [...] Notes by Alvaro Mcclain MD at 06/13/13 5495 Author: Alvaro Mcclain MD Service: (none) Author Type: Physician Filed: 06/13/131843 Date of Service: 06/13/131629 Status: Signed Cover Operator: Alvaro Mcclain MD (Physician) Related Notes: Related Note by Everett Bryson PA-C (Physician Manager [place] - Certified) f iled at 06/13/131633 I have reviewed the note and supervised the mid-level provider. Alvaro Mcclain MD 06/13/131843 Fabiola Naylor PA-C - 06/13/2013 4:30 PM PDT ED Provider Notes by Everett Bryson PA-C at 06/13/131629 Author: Everett Bryson PA-C Service: (none) Author Type: Physician Manager [place] - Certi fied Filed: 06/13/131633 Date of Service: 06/13/131629 Status: Signed Cover Operator: Everett Bryson PA-C (Physician Manager [place] - Certified) Related Notes: Cosigned by Alvaro Mcclain MD (Physician) filed at 06/13/131843 Procedures For culture results called patient's the blood culture results which grew and one set GRAM POSITIVE COCCI Patient went to the emergency room in [facility]. Provider stated that this is too e vasile for admission and she currently on the correct antibiotics for the bacteria. And was d ischarged. Patient states she is still not feeling any better. I suggested that she return to the [facility] for reevaluation. Patient states that if she is still not feeling any better by tonight she will return to [facility]. Everett Bryson PA-C 06/13/131633 Edis Ramirez MD - 06/10/2013 8:14 PM PSTFormatting of this note might be different from the origi nal. ED Provider Notes by Edis Gudino MD at 06/10/132013 Author: Edis Gudino MD Service: (none) Author Type: Physician Filed: 06/10/13 2204 Date of Service: 06/10/132013 Status: Signed Cover Operator: Edis Gudino MD (Physician) [facility] Department of Emergency Medicine History of Present [...] Procedure: TRACHEOSTOMY; Surgeon: Fabián Novoa MD; Location: [facility] MAIN OR; Service: ENT ; [...] Value Ref Range Date/Time Complete Metabolic Panel [[id number]] (Abnormal) Collected:06/10/132033 Order Status:Completed Updated:06/10/132100 Specimen Information:Blood [...] >60 >60 mL/min/1.73m2 CBC w Auto Diff [[id number]] (Abnormal) Collected:06/10/132033 Order Status:Completed Updated:06/10/132042 Specimen Information:Blood [...] Interpretation Documented by Edis Gudino MD (06/10/132126, [facility] Emergency Department, Emergency Medicine) This ED initial [...] soon as possible for a visit [address] [place] [address] [facility] Emergency Department If symptoms worsen [address] [place] [address] [id number] Discharge Medications: New Prescriptions BENZONATATE (TESSALON) 100 MG CAPSULE Take 1 capsule by mouth every 8 (eight) hours. LEVOFLOXACIN (LEVAQUIN) 750 MG TABLET Take 1 tablet by mouth daily. This document has been prepared with a voice recognition system. The possibility of "sound alike" lands resource manager errors, addition and/or deletions may occur. If there is any question p lease contact the author of the document. Additional Documentation Procedures Edis Gudino MD 06/10/13 3862 onversion Transactio n, Provider Unknown - 06/10/2013 8:09 PM PST ED Notes by Alli Giron RN at 06/10/132008 Author: Alli Giron RN Service: (none) Author Type: Registered Nurse Filed: 06/10/132009 Date of Service: 06/10/132008 Status: Signed Cover Operator: Alli Giron RN (Registered Nurse) Dr. Gudino @ assessing patient Alli Giron RN 06/10/132009 onver elaina Transaction, Provider Unknown - 06/10/2013 8:04 PM PST ED Notes by Alli Giron RN at 06/10/132003 Author: Alli Giron RN Service: (none) Author Type: Registered Nurse Filed: 06/10/132005 Date of Service: 06/10/132003 Status: Signed Cover Operator: Alli Giron RN (Registered Nurse) "The last week in April I was admitted at [facility] for pneumonia and the flu, [...] D | | | | | | [place] [address] | | | | | | [phone] | | | | | | | [...] NEW | | | Testing performed at [facility], [address] [place] [address] | | | [address] CULTURE | | | STAPHYLOCOCCUS SPECIES, COAGULASE NEGATIVEAbnormal | | | GROWTH IN ONE OF TWO | | | BOTTLESAbnormal | | | TIME TO DETECTION: 26HRS 6MIN | | | POSSIBLE CONTAMINANT, CLINICAL CORRELATION REQUIRED. | | | Testing performed at | | | [facility], [address] [place] [id number] REPORT STATUS | | | 06/13/2013 FINAL [...] [place] | | | | | | [address] | | | | + + + + + + | Red Blood | 4.44Comment: Testing | 3.70 - 5.10 | EXTERNAL | | | Cells | performed at [facility];888 | M/uL | LAB | | | Counted | [address];[place] | | | | | | [address] | | | | + + + + + + | Hemoglobin | 11.9Comment: Testing | 11.3 - 15.5 | EXTERNAL | | | | performed at [facility];888 | g/dL | LAB | | | | [address];[place] | | | | | | [address] | | | | + + + + + + | Hematocrit, | 36.0Comment: Testing | 34.0 - 46.0 % | EXTERNAL | | | POC | performed at [facility];[address] | | LAB | | | | [address];[place] | | | | | | [address] | | | | + + + + + + | MCV | 81.0Comment: Testing | 80.0 - 100.0 fl | EXTERNAL | | | | performed at [facility];[address] | | LAB | | | | [address];[place] | | | | | | [address] | | | | + + + + + + | MCH | 26.9 (L)Comment: Testing | 27.0 - 34.0 pg | EXTERNAL | | | | performed at [facility];[address] | | LAB | | | | [address];[place] | | | | | | [address] | | | | + + + + + + | MCHC | 33.1Comment: Testing | 32.0 - 35.5 | EXTERNAL | | | | performed at [facility];888 | g/dL | LAB | | | | [address];[place] | | | | | | [address] | | | | + + + + + + | RDW-CV | 43.3Comment: Testing | 37 - 53 fl | EXTERNAL | | | | performed at [facility];[address] | | LAB | | | | [address];[place] | | | | | | [address] | | | | + + + + + + | Platelet | 359Comment: Testing | 150 - 400 K/uL | EXTERNAL | | | Count | performed at [facility];[address] | | LAB | | | Plasma | [address];[place] | | | | | | [address] | | | | + + + + + + | MPV | 7.3Comment: Testing | fl | EXTERNAL | | | | performed at [facility];[address] | | LAB | | | | [address];[place] | | | | | | [address] | | | | + + + + + + | Differentia | AUTOMATEDComment: | | EXTERNAL | | | l Type | Testing performed at | | LAB | | | | [facility];[address];[place] [address] | | | | + + + + + + | % Segmented | 46.4Comment: Testing | % | EXTERNAL | | | | performed at [facility];[address] | | LAB | | | Neutrophils | [address];[place] | | | | | | [address] | | | | + + + + + + | % | 39.3Comment: Testing | % | EXTERNAL | | | Lymphocytes | performed at [facility];[address] | | LAB | | | | [address];[place] | | | | | | [address] | | | | + + + + + + | % Monocytes | 8.9Comment: Testing | % | EXTERNAL | | | | performed at [facility];[address] | | LAB | | | | [address];[place] | | | | | | [address] | | | | + + + + + + | % | 4.9Comment: Testing | % | EXTERNAL | | | Eosinophils | performed at [facility];[address] | | LAB | | | | [address];[place] | | | | | | [address] | | | | + + + + + + | % Basophils | 0.5Comment: Testing | % | EXTERNAL | | | | performed at [facility];[address] | | LAB | | | | [address];[place] | | | | | | [address] | | | | + + + + + + | Absolute | 3.5Comment: Testing | 1.9 - 7.4 K/uL | EXTERNAL | | | Segmented | performed at [facility];[address] | | LAB | | | Neutrophils | [address];[place] | | | | | | [address] | | | | + + + + + + | Absolute | 2.9Comment: Testing | 1.0 - 3.9 K/uL | EXTERNAL | | | Lymphocytes | performed at [facility];[address] | | LAB | | | | [address];[place] | | | | | | [address] | | | | + + + + + + | Absolute | 0.7Comment: Testing | 0 - 0.8 K/uL | EXTERNAL | | | Monocytes | performed at [facility];[address] | | LAB | | | | [address];[place] | | | | | | [address] | | | | + + + + + + | Absolute | 0.4Comment: Testing | 0 - 0.5 K/uL | EXTERNAL | | | Eosinophils | performed at [facility];[address] | | LAB | | | | [address];[place] | | | | | | [address] | | | | + + + + + + | Absolute | 0.0Comment: Testing | 0 - 0.1 K/uL | EXTERNAL | | | Basophils | performed at [facility];[address] | | LAB | | | | [address];[place] | | | | | | [address] | | | | + + + [...] | LAB | | | | [address];[place] | | | | | | [address] | | | | + + + + + + | K | 3.5Comment: Testing | 3.5 - 4.9 | EXTERNAL | | | | performed at [facility];888 | mmol/L | LAB | | | | [address];[place] | | | | | | [address] | | | | + + + + + + | Cl | 100Comment: Testing | 99 - 109 mmol/L | EXTERNAL | | | | performed at [facility];[address] | | LAB | | | | [address];[place] | | | | | | [address] | | | | + + + + + + | CO2 | 31Comment: Testing | 23 - 32 mmol/L | EXTERNAL | | | | performed at [facility];[address] | | LAB | | | | [address];[place] | | | | | | [address] | | | | + + + + + + | Anion Gap | 9Comment: Testing | 5 - 20 mmol/L | EXTERNAL | | | | performed at [facility];[address] | | LAB | | | | [address];[place] | | | | | | [address] | | | | + + + + + + | Glucose, | 196 (H)Comment: Testing | 65 - 99 mg/dL | EXTERNAL | | | Fasting | performed at [facility];[address] | | LAB | | | | [address];[place] | | | | | | [address] | | | | + + + + + + | BUN | 11Comment: Testing | 8 - 25 mg/dL | EXTERNAL | | | | performed at [facility];[address] | | LAB | | | | [address];[place] | | | | | | [address] | | | | + + + + + + | Creatinine | 0.59Comment: Testing | 0.50 - 1.00 | EXTERNAL | | | | performed at [facility];888 | mg/dL | LAB | | | | [address];[place] | | | | | | [address] | | | | + + + + + + | BUN/Creatin | 19Comment: Testing | | EXTERNAL | | | ine Ratio | performed at [facility];[address] | | LAB | | | | [address];[place] | | | | | | [address] | | | | + + + + + + | Calcium | 8.9Comment: Testing | 8.5 - 10.2 | EXTERNAL | | | | performed at [facility];888 | mg/dL | LAB | | | | [address];[place] | | | | | | [address] | | | | + + + + + + | Protein, | 8.5 (H)Comment: Testing | 6.3 - 8.2 g/dL | EXTERNAL | | | Total | performed at [facility];[address] | | LAB | | | | [address];[place] | | | | | | [address] | | | | + + + + + + | Albumin | 3.2 (L)Comment: Testing | 3.6 - 5.0 g/dL | EXTERNAL | | | | performed at [facility];[address] | | LAB | | | | [address];[place] | | | | | | [address] | | | | + + + + + + | Globulin | 5.4 (H)Comment: Testing | 1.3 - 4.9 g/dL | EXTERNAL | | | | performed at [facility];[address] | | LAB | | | | [address];[place] | | | | | | [address] | | | | + + + + + + | A/G Ratio | 0.6 (L)Comment: Testing | 1.0 - 2.4 | EXTERNAL | | | | performed at [facility];[address] | | LAB | | | | [address];[place] | | | | | | [address] | | | | + + + + + + | Bilirubin | 0.3Comment: Testing | 0.1 - 1.5 mg/dL | EXTERNAL | | | Total | performed at [facility];[address] | | LAB | | | | [address];[place] | | | | | | [address] | | | | + + + + + + | ALP, | 105Comment: Testing | 35 - 115 U/L | EXTERNAL | | | External | performed at [facility];[address] | | LAB | | | | [address];[place] | | | | | | [address] | | | | + + + + + + | AST | 39Comment: Testing | 10 - 45 U/L | EXTERNAL | | | | performed at [facility];[address] | | LAB | | | | [address];[place] | | | | | | [address] | | | | + + + + + + | ALT | 59Comment: Testing | 10 - 65 U/L | EXTERNAL | | | | performed at [facility];[address] | | LAB | | | | [address];[place] | | | | | | [address] | | | | + + + [...] | | | | | | at [facility];[address] [place] [address] | | | | | | [facility];[place] [address] | | | | + + + [...] DAYS | | | Testing performed at [facility], [address] | | | [address] [facility] [place] [address] REPORT STATUS | | | 06/16/2013 FINAL [...]
--- OUTSIDE RECORDS SUMMARY | ~2019-10-06 | XMS | Encounter Summary ---
Demographics + + + | Address | [address] | | | [place] [address] | + + + | Home Phone [...] Team Providers + +------+ + | Care Roofing Machine Tender Name | Role | Phone | [...] + + | 04/05/ | Refill | [facility] | Elaine Andrews, | Medication Refill | | 2019 | | NEUROLOGY [address] | MD [address] | | | | | [address] [place] | [facility] [address] | | | | | [place], [place] | [place] [address] | | | | | [address] | [phone] | | | | | [phone] | | | +--------+--------+ + + + [...] Miscellaneous Notes Telephone Encounter - Lashaun Scott Jacker Feeder - 04/05/2019 1:19 PM PSTL ast visit: [...] | | | | Visit | | [address] | | | | | | [place] [address] | | | | | | [phone] | | | | | | | | +--------+ + + + + documented as of this encounter Visit Diagnoses Not on filedocumented in this encounter"
--- OUTSIDE RECORDS SUMMARY | ~2019-10-06 | XMS | Encounter Summary ---
Demographics + + + | Address | [address] | | | [place] [address] | + + + | Home Phone [...] Team Providers + +------+ + | Care House Painter Name | Role | Phone | + +------+ + | Mynor Kam MD | PCP | | + +------+ + Encounter Details +--------+ + + + + | Date | Type | Department | Care Team | Description | +--------+ + + + + | 07/22/ | Telephone | [facility] | Enid Kaye | | | 2020 | | NEUROLOGY [address] | MD [address] | | | | | [address] | [place] | | | | | [place], [place] | [address] | | | | | [address] | | | | | | [phone] | | | +--------+ + + + [...] D | | | | | | [place] [address] | | | | | | [phone] | | | | | | | | +--------+ + + + + documented as of this encounter Visit Diagnoses Not on filedocumented in this encounter"
--- OUTSIDE RECORDS SUMMARY | ~2019-10-06 | XMS | Clinical Summary ---
Demographics + + + | Address | [address] | | | [place] [address] | + + + | Home Phone [...] Team Providers + +------+ + | Care Interactive Media Marketing Specialist Name | Role | Phone | + +------+ + | Erlinda Oneal PA-C | PCP | | + +------+ + Source Comments FAB is fully live on both [facility] Ambulatory and [facility] InPatient.[facility] Allergies Not on File Medications Not on [...] B | | sent | | [place] | | | | | | | | [address] | | + +--------+ +--------+ + +--------+ | MEDICAID [place] | OHP | xxxxxxxx | | [phone] | [address] | Medica | | | PLUS | | [phone] | id | | | OPEN | | esent | | [place], [place] | | | | CARD | | | | [address] | | + +--------+ +--------+ + +--------+ [...] Mary | al/Fam | | 1966 | [phone] | [place] [address] | | | fausto | | | 3 (Home) | | + +--------+ +--------+ + +"
--- OUTSIDE RECORDS SUMMARY | ~2019-10-06 | XMS | Encounter Summary ---
Demographics + + + | Address | [address] | | | [place] [address] | + + + | Home Phone [...] Team Providers + +------+ + | Care Ceramic Coater Machine Name | Role | Phone | + +------+ + | Mynor Kam MD | PCP | | + +------+ + Encounter Details +--------+ + + + + | Date | Type | Department | Care Team | Description | +--------+ + + + + | 06/26/ | Orders Only | [facility] | [facility], | | | 2019 | | PULMONOLOGY [address] | [address] Arora, | | | | | [address] | [address] | | | | | [facility] [place] | [place] [address] [place], | | | | | [address] | [place] [address] | | | | | [phone] | [phone] | | | | | | | [...] D | | | | | | [place] [address] | | | | | | [phone] | | | | | | | | +--------+ + + + + documented as of this encounter Visit Diagnoses Not on filedocumented in this encounter"
--- OUTSIDE RECORDS SUMMARY | ~2019-10-06 | XMS | Encounter Summary ---
Demographics + + + | Address | [address] | | | [place] [address] | + + + | Home Phone [...] Providers + +------+ + | Care Director Business Travel Name | Role | Phone | + +------+ + | Mynor Kam MD | PCP | | + +------+ + Encounter Details +--------+ + + + + | Date | Type | Department | Care Team | Description | +--------+ + + + + | 09/21/ | Orders Only | [facility] | [facility], | | | 2019 | | PULMONOLOGY [address] | Esperanza Arora, | | | | | [address] | [address] | | | | | [facility] [place] | [address] [place], | | | | | [address] | [place] [address] | | | | | [phone] | [phone] | | | | | | | [...] D | | | | | | [place] [address] | | | | | | [phone] | | | | | | | | +--------+ + + + + documented as of this encounter Visit Diagnoses Not on filedocumented in this encounter"
--- OUTSIDE RECORDS SUMMARY | ~2019-10-06 | XMS | Encounter Summary ---
Demographics + + + | Address | [address] | | | [place] [address] | + + + | Home Phone [...] Team Providers + +------+ + | Care News Internship Name | Role | Phone | [...] Provider Unknown | | | | | [facility] [place] | | | | | | [address] | (Fax) | | | | | [phone] | | | +--------+ + + + [...] D | | | | | | [place] [address] | | | | | | [phone] | | | | | | | [...]
--- OUTSIDE RECORDS SUMMARY | ~2019-10-06 | XMS | Encounter Summary ---
Demographics + + + | Address | [address] | | | [place] [address] | + + + | Home Phone [...] Team Providers + +------+ + | Care Shuttle Filler Name | Role | Phone | + [...] Provider Unknown | | | | | [facility] [place] | | | | | | [address] | (Fax) | | | | | [phone] | | | +--------+ + + + [...] D | | | | | | [place] [address] | | | | | | [phone] | | | | | | | [...]
--- OUTSIDE RECORDS SUMMARY | ~2019-10-06 | XMS | Encounter Summary ---
Demographics + + + | Address | [address] | | | [place] [address] | + + + | Home Phone [...] Team Providers + +------+ + | Care Energy Projects Lead Name | Role | Phone | + [...] Closed | | | Diagnoses | | Ragzaynath, | | | | | Other | [...] | | | | | classified, | [place], | [address] | | | | | Memory loss | [place] | Phone: | | | | | | [address] | [phone] | | | | | | Phone: | Fax: | | | | | | [phone] | [phone] | | | | | | Fax: | | | | | | | [phone] | | +--------+--------+ + + + + Encounter Details +--------+---------+ + + + | Date | Type | Department | Care Team | Description | +--------+---------+ + + + | 06/01/ | Office | [facility] | Elaine Andrews, | Chronic migraine | | 2020 | Visit | NEUROLOGY [address] | [address] | (Primary Dx); | | | | [address] | [address] | Seizure disorder | | | | [place], [place] | [place] [address] | ([facility]); Driving | | | | [address] | [phone] | safety issue; Memory | | | | [phone] | | loss | +--------+---------+ + + [...] H1N1 pneumonia 2013, A RDS, seen at [facility] following complications and being comatose. Also has h/o in tractable migraines. She reports h/o seizures as a child - age 9 - grandmal seizures - seen at [facility] on phenobarbital for [address] years[address] by Dr De Jesus at [employer] at age 15. Did not dejuan nue medications. She had one grandmal after of her first daughter - 31 years ago. Was tired after a [employer] bus drive from [place] to [place]. She has another perioperative seizure a few years ago (after cholecystectomy). She reports 2 grandmal unwitnessed seizures in 2015 - at home - fell and loss consciousness - cracked a glass door. Then went to bed and lost consciousness. Not sure how long she was out. No urinary incontinence. Had a sleep deprived EEG- 11/11/14 - done at [facility] and read by Linh Fernandez ([facility]). "Abnormal awake and drowsy EEG - frequent spike and wave discharges with a generalized fiel d though consistently with a left wiriws-xfswdk-qrfsjeue lead-in, with activation during hyp erventilation and [...] Has had MRI brain done at [facility] in June 2015 - uploaded in [facility] including report. Normal structure. She complains [...] a shower and went to the kitchen. [place] her whole body shake and she fell [...] of what happened. EMS took her to [facility]. She c/o feeling unclear in [...] | | | | Visit | | [address] | | | | | | [place] [address] | | | | | | [phone] | | | | | | | [...]
--- OUTSIDE RECORDS SUMMARY | ~2019-10-06 | XMS | Encounter Summary ---
Demographics + + + | Address | [address] | | | [place] [address] | + + + | Home Phone [...] Team Providers + +------+ + | Care Elementary School Music Teacher Name | Role | Phone | + +------+ + | Mynor Kam MD | PCP | | + +------+ + Encounter Details +--------+---------+ + + + | Date | Type | Department | Care Team | Description | +--------+---------+ + + + | 06/01/ | Office | [facility] | Matt, | Uncontrolled | | 2020 | Visit | PULMONOLOGY [address] | [address] Arora, | moderate persistent | | | | [address] | MD [address] | asthma (Primary Dx); | | | | [facility] | [place], | ARDS survivor; | | | | [address] | [place] [address] | Restrictive lung | | | | [phone] | [phone] | disease; Chronic | | | | [...] and obesity, who was admitted to [facility] from 05/05/13 to 05/14/13 for acut e respiratory failure from ARDS due to H1N1 infection. Her course was long and difficult -sh e eventually underwent a tracheostomy insertion by Dr Bright Teixeira), and then she was eventua lly moved to an acute Rehab facility close to [place] ([facility]). She reports abi t she had a horrible time here. After close to a week of staying in the facility, her trache ostomy tube managed to fall out and she suffered from hypoxemia with bilateral lung atelecta sis. She was brought to [facility] where they put her trach back. [...] the past. S he has lived in [place] most of her life. She now lives in [place]. She lived in [place] for two years when she was younger. [...] Date Asthma Bronchitis DVT (deep venous thrombosis) ([facility]) in thigh; no longer on coumadin Dvt femoral (deep venous thrombosis) ([facility]) Epilepsy (HCC) Fibromyalgia Fibromyalgia HX OTHER MEDICAL [...] TRACHEOSTOMY; Surgeon: Fabián Novoa MD; Location: [facility] MAIN OR; Service: ENT; Laterality: [...] chronic dyspnea and difficult to control asthma. Sh naveen is on Breo Ellipta 200-5 mcg daily, [...] Gutierrez MD Pulmonary and Critical Care Medicine [facility] [place] [address] documentnaveen stephens in this encounter Plan of [...] D | | | | | | [place] [address] | | | | | | [phone] | | | | | | | [...]
--- OUTSIDE RECORDS SUMMARY | ~2019-10-06 | XMS | Encounter Summary ---
Demographics + + + | Address | [address] | | | [place] [address] | + + + | Home Phone [...] Team Providers + +------+ + | Care Space Sciences Director Name | Role | Phone | + +------+ + | Mynor Kam MD | PCP | | + +------+ + Encounter Details +--------+ + + + + | Date | Type | Department | Care Team | Description | +--------+ + + + + | 10/29/ | Orders Only | [facility] | Elaine Andrews, | | | 2019 | | NEUROLOGY [address] | [address] | | | | | [address] | [address] | | | | | [place], [place] | [place] [address] | | | | | [address] | [phone] | | | | | [phone] | | | +--------+ + + + [...] | | | | | [place] [address] | | | | | | [phone] | | | | | | | | +--------+ + + + + documented as of this encounter Visit Diagnoses Not on filedocumented in this encounter"
--- OUTSIDE RECORDS SUMMARY | ~2019-10-06 | XMS | Encounter Summary ---
Demographics + + + | Address | [address] | | | [place] [address] | + + + | Home Phone [...] Team Providers + +------+ + | Care Magazine Journalist Name | Role | Phone | + [...] + + | 10/04/ | Telephone | [facility] | Elaine Andrews, | Appointment | | 2020 | | NEUROLOGY [address] | [address] | (schedule) | | | | [address] | [address] | | | | | [place], [place] | [place] [address] | | | | | [address] | [phone] | | | | | [phone] | | | +--------+ + + + [...] still available. Left VM to call office yudelka scanlon. elephone Carissa Albright I - 10/05/2019 12:33 PM PDTGilma, is calling regarding Appointment (igor staples) and would like a call back. Additional Call Details: Call back on home number listed. If this is a symptom based call, was patient offered triage? Not Applicable If this is a symptom based call and you were unable to immediately transfer the call to a ainsley lloyd reading instructor was caller made aware that if at [...] | | | | | [place] [address] | | | | | | [phone] | | | | | | | | +--------+ + + + + documented as of this encounter Visit Diagnoses Not on filedocumented in this encounter"
--- OUTSIDE RECORDS SUMMARY | ~2019-10-06 | XMS | Encounter Summary ---
Demographics + + + | Address | [address] | | | [place] [address] | + + + | Home Phone [...] Team Providers + +------+ + | Care Client Services Administrator Name | Role | Phone | + +------+ + PCP | Unavailable | + +------+ + Encounter Details +--------+ + + + + | Date | Type | Department | Care Team | Description | +--------+ + + + + | 02/26/ | Hospital | [facility] | Fabián Salas | | | 2010 - | Encounter | [facility] | [address] | | | | CENTER [address] | [address] [facility] | | | 03/06/ | | [place] | [place] [address] | | | 2010 | | [address] | [phone] | | | | | [phone] | | | +--------+ + + + [...] | | | | Visit | | [employer] [facility] | | | | | | [place] [address] | | | | | | [phone] | | | | | | | | +--------+ + + + + documented as of this encounter Visit Diagnoses Not on filedocumented in this encounter"
--- OUTSIDE RECORDS SUMMARY | ~2019-10-06 | XMS | Encounter Summary ---
Demographics + + + | Address | [address] | | | [place] [address] | + + + | Home Phone [...] Team Providers + +------+ + | Care Thermostat Machine Tender Name | Role | Phone | + +------+ + | Mynor Kam MD | PCP | | + +------+ + Encounter Details +--------+ + + + + | Date | Type | Department | Care Team | Description | +--------+ + + + + | 06/02/ | Orders Only | [facility] | [facility], | | | 2019 | | PULMONOLOGY [address] | [address], | | | | | [address] | [address] | | | | | [facility], [place] | [place], | | | | | [address] | [place] [address] | | | | | [phone] | [phone] | | | | | | | [...] D | | | | | | [place] [address] | | | | | | [phone] | | | | | | | | +--------+ + + + + documented as of this encounter Visit Diagnoses Not on filedocumented in this encounter"
--- OUTSIDE RECORDS SUMMARY | ~2019-10-06 | XMS | Encounter Summary ---
Demographics + + + | Address | [address] | | | [place] [address] | + + + | Home Phone [...] Team Providers + +------+ + | Care Grout Worker Name | Role | Phone | [...] Provider Unknown | | | | | [facility] [place] | | | | | | [address] | (Fax) | | | | | [phone] | | | +--------+ + + + [...] D | | | | | | [place] [address] | | | | | | [phone] | | | | | | | [...]
--- OUTSIDE RECORDS SUMMARY | ~2019-10-06 | XMS | Encounter Summary ---
Demographics + + + | Address | [address] | | | [place] [address] | + + + | Home Phone [...] Team Providers + +------+ + | Care Mail List Librarian Name | Role | Phone | + +------+ + PCP | Unavailable | + +------+ + Encounter Details +--------+ + + + + | Date | Type | Department | Care Team | Description | +--------+ + + + + | 05/05/ | Hospital | [facility] | Estefania Brannon DO | Acute respiratory | | 2013 - | Encounter | [facility] | [address] | failure (HCC); | | | | INTENSIVE CARE UNIT | [place] [address] | Abnormal LFTs (liver | | 05/14/ | | [address] | [phone] | function tests); | | 2013 | | [place], [place] | | Acute respiratory | | | | [address] | | distress syndrome | | | | [phone] | | (ARDS) ([facility]); | | | | | | Influenza A; Morbid | | | | | | obesity with BMI of | | | | | | 45.0-49.9, adult | | | | | | ([facility]); Poorly | | | | | | controlled diabetes | | | | | | mellitus ([facility]); | | | | | | [...] Al Houston MD Service: (none) Author Type: Orderlies Teacher Filed: 05/14/1343 Date of Service: 05/14/13832 Status: Signed Tool Room Supervisor: Al Houston MD (Physician) [facility] Service: Orderlies Teacher Discharge Summary Gilma Salmon 47 y.o. Date [...] ventilation initiated on May 01, 2013 at [facility]. HOSPITAL COURSE: May 06, 2013: [...] Procedure: TRACHEOSTOMY; Surgeon: Shalonda Novoa MD; Location: [facility] MAIN OR; Service: ENT ; Laterality: N/A; move to OR table, need harmonic scalpel with focus HP, patient [address] ed[address] nds Medication List As of 05/14/2013 8:33 AM Condition on Discharge: Stable, to [facility] [place] Code Status: Full Code Primary Care Physician: [...] Date of Service: 05/14/13 1322 Status: Signed Tool Room Supervisor: Bryanna Keenan RN (Registered Nurse) Transport here [...] Date of Service: 05/14/13 1043 Status: Signed Tool Room Supervisor: Bryanna Keenan RN (Registered Nurse) Report given to Maggy at [facility] in [facility] onver elaina Transaction, Provider Unknown - 05/14/2013 8:33 AM PST Case Management by MARTHA Kunz at 05/14/13 0833 Author: MARTHA Kunz Service: (none) Author Type: Asset Card Clerk Filed: 05/14/13 0834 Date of Service: 05/14/13832 Status: Signed Tool Room Supervisor: MARTHA Kunz (Asset Card Clerk) Received t/c from [place] with [employer] insurance. AMbulance Auth # is [id number] for [facility] services. Called [facility] to verify their picker feeder time (12:30) and also called pt's bharath white to verify that pt is being transferred today. onver elaina Transaction, Provider Unknown - 05/14/2013 8:31 AM PST Case Management by MARTHA Kunz at 02/07/14 0831 Author: MARTHA Kunz Service: (none) Author Type: Asset Card Clerk Filed: 05/14/13831 Date of Service: 05/14/13830 Status: Signed Tool Room Supervisor: MARTHA Kunz (Asset Card Clerk) Disposition: Mary Newell [place] Transportation:[facility] [phone] All orders, signed AVS, and prescriptions have [...] Al Houston MD Service: (none) Author Type: Orderlies Teacher Filed: 05/14/13840 Date of Service: 05/14/13827 Status: Addendum Tool Room Supervisor: Al Houston MD (Physician) Related Notes: Original Note by Al Houston MD (Physician) filed at 05/14/13832 [facility] Service: Orderlies Teacher Progress Note Gilma Salmon 47 y.o. Hospital [...] ventilation initiated on May 01, 2013 at [facility]. ICU TIMELINE:The patient is admitted [...] Procedure: TRACHEOSTOMY; Surgeon: Shalonda Novoa MD; Location: [facility] MAIN OR; Service: ENT ; [...] original. Progress Notes by Erlinda David MS CCC-PARTS DRIVER at 05/13/13 7940 Author: Erlinda David MS CCC-PARTS DRIVER Service: (none) Author Type: Speech and Bench Mechanic ologist Filed: 05/13/13 1604 Date of Service: 05/13/13 1603 Status: Signed Tool Room Supervisor: Erlinda David MS CCC-PARTS DRIVER (Speech and Language Pathologist) 05/13/13 1500 General Session type Evaluation Family/Caregiver Present Yes Expression Primary Mode of Expression Nonverbal - written;Nonverbal - gestures (mouthing). Currently has trach. Passy-Ellijay Valve Passy-Ellijay Valve No Written Expression Written Expression Comment Pt able to write to compensate for inability to vocalize at this time d/t trach/vent.Pt also mouthing words and using communication board that was given and gestures. Pt and spouse had no further questions re: communication and both stated that the pt's basic wants/needs are being met at this time. Rec PARTS DRIVER f/u at place of d/c. onver elaina Transaction, Provider Unknown - 05/13/2013 3:43 PM PST Case Management by MARTHA Kunz at 05/13/13 1543 Author: MARTHA Kunz Service: (none) Author Type: Asset Card Clerk Filed: 05/13/13 1540 Date of Service: 05/13/13 154 Status: Signed Tool Room Supervisor: MARTHA Kunz (Asset Card Clerk) Received t/c from [place] with [facility] ([phone]). He is requesting a return call if f or some reason pt is not able to transfer to [place] tomorrow. His crew plans to wrrive here between 11:30-12:00 if not called. Informed Unit CENTRAL SUPPLY AIDE and Lead RN. Al Gonzalez MD - 05/13/2013 3:43 PM PSTFormatting of this note might be different from the o riginal. Progress Notes by Al Houston MD at 05/13/13 5343 Author: Al Houston MD Service: (none) Author Type: Orderlies Teacher Filed: 05/13/13 1555 Date of Service: 05/13/13 1543 Status: Signed Tool Room Supervisor: Al Houston MD (Physician) [facility] Service: Orderlies Teacher Progress Note Gilma Salmon 47 y.o. Hospital [...] ventilation initiated on May 01, 2013 at [facility]. ICU TIMELINE:The patient is admitted [...] Procedure: TRACHEOSTOMY; Surgeon: Shalonda Novoa MD; Location: [facility] MAIN OR; Service: ENT ; [...] Date of Service: 05/13/13 1518 Status: Signed Tool Room Supervisor: Juanita Herman RN (Registered Nurse) Report received from HERIBERTO Bartlett and care assumed. Pt resting in bed with no complaints at t his time. JUANITA HERMAN 05/13/2013 3:19 PM onver elaina Transaction, Provider Unknown - 05/13/2013 1:35 PM PST Progress Notes by Edis Ken PT at 05/13/13 1335 Author: Edis Ken PT Service: (none) Author Type: Physical Therapist Filed: 05/13/13 2151 Date of Service: 05/13/13 1335 Status: Signed Tool Room Supervisor: Edis Ken PT (Physical Therapist) 05/13/13 1335 [...] therapy (Pt. to d/c to LTAC in [place] tomorrow per notes) Equipment Recommended (May need [...] therapy (Pt. to d/c to LTAC in [place] tomorrow per notes) Equipment Recommended (May need use of 4WW initially for UE support) Prior Function Level of [facility] Independent with functional mobility;Independent with ADLs;Independe nt [...] Author: MARTHA Kunz Service: (none) Author Type: Asset Card Clerk Filed: 05/13/13 1048 Date of Service: 05/13/131041 Status: Signed Tool Room Supervisor: MARTHA Kunz (Asset Card Clerk) Met with pt and family to update. Pt has now made the decision to go to [place] in [place] where her mother and sister live. Spoke with Sandy Casanvoa liason who states that they are working on insurance auth. They are prepared to accept pt tomorrow to the [facility]. RN-RN report # is [phone] x [phone], report # is [phone] (Dr. Alli brown) . Made arrangements with [facility] [phone] to picker feeder pt at 11:30 tomorrow morning. Transfer work completed and placed on pt chart. onver elaina Transaction, Provider Unknown - 05/13/2013 9:26 AM PST Case Management by MARTHA Kunz at 05/13/13925 Author: MARTHA Kunz Service: (none) Author Type: Asset Card Clerk Filed: 05/13/13 1021 Date of Service: 05/13/13925 Status: Addendum Tool Room Supervisor: MARTHA Kunz (Asset Card Clerk) Related Notes: Original Note by MARTHA Kunz (Asset Card Clerk) filed at 05/13/13948 Spoke with pt's insurance shoe parts caser Kathleen ([phone]) and Lupe ([phone]) t o discuss LTAC transfer. I also spoke with Dara Mace from [facility] who states abi t beds are opening up. Dara will get back to me juan as to whether the beds will be avail able tomorrow or Friday. [facility]. Wa iting to hear back about from insurance as to whether they will agree to letting pt stay in [facility] until Friday if bed is not available at [facility] until Friday. Called [facility] to notify that there may be a transport Friday/Friday. Informed family of current issues r egarding bed availability and insurance auth. Received t/c from Gregor Mccain at [place] (ph: [phone], fax:[phone]) indicating th at they have a bed available [facility]. He is aware that [facility] due to proximity. Monroe Mohan MD - 05/12/2013 6:57 PM PSTFormatting of this note might be different from the origi nal. Progress Notes by Shalonda Novoa MD at 05/12/131856 Author: Shalonda Novoa MD Service: (none) Author Type: Physician Filed: 05/12/131913 Date of Service: 05/12/131856 Status: Signed Tool Room Supervisor: Shalonda Novoa MD (Physician) [facility] Service: Otolaryngology Progress Note Hospital Day: LOS: 7 days Post-Op Day: 1 Day Post-Op SUBJECTIVE The patient is a 47 y.o. female with morbid obesity who was transferred to [facility] on Apr with the diagnosis of ARDS with influenza A, on Tamiflu. She also has a histor y of poorly controlled diabetes type 2, asthma and bronchitis with prior DVT. The patient wa s admitted on May 05, 2013. Mechanical ventilation initiated on May 01, 2013 at [facility]. A-line placed right radial artery [...] sulfate, nystatin, ny statin, ondansetron, ondansetron, pancrelipase (Pph-Prmn-Pjlq) 10,000 units, petrolatum, jerri sphorus, potassium chloride, [...] f rom the original. Progress Notes by Esepranza Gutierrez MD at 05/12/131749 Author: Esperanza Gutierrez MD Service: (none) Author Type: Physician Filed: 05/12/131756 Date of Service: 05/12/131749 Status: Signed Tool Room Supervisor: Esperanza Gutierrez MD (Physician) [facility] Service: Orderlies Teacher Progress Note Gilma Salmon 47 y.o. Hospital [...] ventilation initiated on May 01, 2013 at [facility]. ICU TIMELINE:The patient is admitted [...] above. Family has met with [facility] repr esentative and plan to go to that facility once patient is stable for discharge. Code Status: Full Code *Please bill 45 minutes of critical care time spent evaluating the patient, reviewing the d trish and formulating a plan exclusive of all other procedures. Esperanza Gutierrez MD 05/12/2013 5:50 PM Ash Padilla, MS [facility]-PARTS DRIVER - 05/12/2013 4:29 PM PSTFormatting of this note might be different from th e original. Progress Notes by Ysabel Lucero MS CCC-PARTS DRIVER at 05/12/13 1629 Author: Ysabel Lucero MS CCC-PARTS DRIVER Service: (none) Author Type: Speech and Language Pathol ogist Filed: 05/12/13 1633 Date of Service: 05/12/13 1629 Status: Signed Tool Room Supervisor: Ysabel Lucero MS CCC-PARTS DRIVER (Speech and Language Pathologist) 05/12/13 1628 PARTS DRIVER Last Visit PARTS DRIVER Received On 05/12/13 Requires PARTS DRIVER Follow Up On hold (PARTS DRIVER to complete eval in am) Pt and family given communication board so pt is able to indicate what she needs/wants. Pt indicated she is too sick and didn't want to participate in an eval today. RN reports pt ceja s been throwing up through trach, PARTS DRIVER to con't to follow for possible pmv placement when pt is appropriate. YSABEL LUCERO MS CCC-PARTS DRIVER 05/12/2013 onversion Saldana saction, Provider Unknown - 05/12/2013 2:35 PM PSTFormatting of this note might be differen t from the original. Progress Notes by Deshawn Hernandez at 05/12/13 1435 Author: Deshawn Hernandez Service: (none) Author Type: Filed: 05/12/13 1436 Date of Service: 05/12/13 1435 Status: Signed Tool Room Supervisor: Deshawn Hernandez () Participated in interdisciplinary rounds with Dr. Gutierrez, security monitor. Pt is scheduled fo r transfer to LTAC. ACADEMIC INTERN sorting out location with family. Family is supported by their [facility] community. Deshawn Hernandez [facility] onver elaina Transaction, Provider Unknown - 05/12/2013 1:10 PM PST Progress Notes by Joselyn Knutson RN at 05/12/13 1310 Author: Joselyn Knutson RN Service: Wound/Ostomy Care Author Type: Registered Nurse Filed: 05/12/13 1312 Date of Service: 05/12/13 1310 Status: Signed Tool Room Supervisor: Joselyn Knutson RN (Registered Nurse) Patient seen today by bleach analyst for evaluation due to a low Huang [...] Knutson RN 1:10 PM 05/12/2013 onver elaina Owenaction, Provider Unknown - 05/12/2013 10:08 AM PST Case Management by MARTHA Kunz at 05/12/13 1008 Author: MARTHA Kunz Service: (none) Author Type: Asset Card Clerk Filed: 05/12/13 1014 Date of Service: 05/12/13 1008 Status: Signed Tool Room Supervisor: MARTHA Kunz (Asset Card Clerk) Received t/c from VERONQIUE [facility]osa/[facility] who states that they do not have an y beds until the end of the week. Met with patient and family to discuss other options. They do not want pt to go to [facility] or [place]. They are agreeable to me making referrals to [facility] and [place] as a back up plan if [facility] has no beds by Friday. Faxed clini christi to [facility] (fax: [phone], ph: [phone]) and [facility] (fax: [phone], ph: [phone]). Await return calls regarding bed availability and whether they are a contracted facility with insurance. oncaty Owenaction, Provider Unknown - 05/11/2013 3:41 PM PST Case Management by MARTHA Kunz at 05/11/13 1541 Author: MARTHA Kunz Service: (none) Author Type: Asset Card Clerk Filed: 05/11/13 1544 Date of Service: 05/11/13 1541 Status: Signed Tool Room Supervisor: MARTHA Kunz (Asset Card Clerk) Provided gas voucher to pt's daughter who is returning to [place] tomorrow and coming figueroa k on . Family informed me this morning that they do not want the pt to go to [facility] after all. They have chosen [facility] as their first choice and [facility] as their second ch oice. At this time [facility] has no beds but may on . Pt is to be trached today and pe gged tomorrow. REferral made to cecily Barbosa for [facility] ([phone]) who will have insurance check into whether they are contracted or not. I notified Tarsha Washington from [facility] that the family has chosen a different facility. Will complete transfer paperwork once I kno w if [facility] has a bed available. Notified [facility] of possible transfer on . [facility] lakshmi, NICANOR Crisostomo - 05/11/2013 12:12 PM PSTFormatting of this note might be different f rom the original. Progress Notes by NICANOR Martines at 05/11/13 1212 Author: NICANOR Martines Service: Orderlies Teacher Author Type: Orderlies Teacher Filed: 05/11/13 1528 Date of Service: 05/11/13 1212 Status: Signed Tool Room Supervisor: NICANOR Martiens (Nurse Practitioner) [facility] Service: Orderlies Teacher Progress Note Gilma Salmon 47 y.o. Hospital [...] ventilation initiated on May 01, 2013 at [facility]. ICU TIMELINE:The patient is admitted [...] ows, sacrum or heels Lab DATA Lab 05/11/139 05/10/1340405/09/13440 WBC 6.6 6.9 7.7 HGB 10.6* 10.6* 10.9* HCT 31.0* 30.5* 32.0* PLT 484* 360 363 Lab 05/11/13 0419 05/10/13 1722 05/10/135 05/09/1344005/05/13 1320 NA 137 -- 130* 137 -- [...] above. Family has met with [facility] repr donyative and plan to go to that facility [...] Case Management by MARTHA Kunz at 05/10/13 3075 Author: MARTHA Kunz Service: (none) Author Type: Asset Card Clerk Filed: 05/10/13 7730 Date of Service: 05/10/131436 Status: Signed Tool Room Supervisor: MARTHA Kunz (Asset Card Clerk) Attended morning rounds. Pt will likely be trached/pegged in the next 1-2 days. Met with p t's daughter to discuss LTAC options. They say that their father is still very sick at home with the flu and has asked them to assist with decision-making. LTAC options given. Daughter s are interested in [facility] in [place] as first choice and [facility] second cho ice. I faxed clinical to [facility] ((fax [phone]) and spoke with the Tarsha tony ([phone]) who will plan to meet with pt's daughters tomorrow at 11:00. eanes HospitalSalome hernandez ARNP - 05/10/2013 7:25 AM PSTFormatting of this note might be different f rom the original. Progress Notes by NICANOR Martines at 05/10/13 07 Author: NICANOR Martines Service: Orderlies Teacher Author Type: Orderlies Teacher Filed: 05/10/13 0812 Date of Service: 05/10/13724 Status: Signed Tool Room Supervisor: NICANOR Martines (Nurse Practitioner) [facility] Service: Orderlies Teacher Progress Note Gilma Salmon 47 y.o. Hospital [...] ventilation initiated on May 01, 2013 at [facility]. ICU TIMELINE:The patient is admitted [...] will call Dr. novoa today who is tax professional from [facility] the office is not open [...] Notes by Esperanza Gutierrez MD at 05/09/13 7421 Author: Esperanza Gutierrez MD Service: Orderlies Teacher Author Type: Physician Filed: 02/02/14 1821 Date of Service: 05/09/131810 Status: Signed Tool Room Supervisor: Esperanza Gutierrez MD (Physician) [facility] Service: Orderlies Teacher Progress Note Gilma Salmon 47 y.o. Hospital [...] init iated on May 01, 2013 at [facility]. A-line placed right radial artery [...] PLT 363 307 260 Lab 05/09/13 1123 05/09/1344005/08/13 1608 05/08/13 0551 05/07/13 0355 05/05/13 1320 [...] -- -- -- -- -- Results for SALMON GILMA Autumn ( ) as of 05/09/2013 18:15 [...] Notes by Han Guerrero DMD at 05/08/13 2364 Author: Han Guerrero DMD Service: Orderlies Teacher Author Type: Physician Filed: 05/08/132220 Date of Service: 05/08/132213 Status: Addendum Tool Room Supervisor: Han Guerrero DMD (Dentist) Related Notes: Original Note by Han Guerrero DMD (Dentist) filed at 05/08/132215 [facility] Service: Orderlies Teacher PM note Gilma Salmon 47 y.o. Evaluated [...] Notes by Esperanza Gutierrez MD at 05/08/13 8814 Author: Esperanza Gutierrez MD Service: (none) Author Type: Physician Filed: 05/08/13 1503 Date of Service: 05/08/134 Status: Signed Tool Room Supervisor: Esperanza Gutierrez MD (Physician) [facility] Service: Orderlies Teacher Progress Note Gilma Salmon 47 y.o. Hospital [...] init iated on May 01, 2013 at [facility]. A-line placed right radial artery [...] Case Management by MARTHA Kunz at 05/07/13 6118 Author: MARTHA Kunz Service: (none) Author Type: Asset Card Clerk Filed: 05/07/13 1343 Date of Service: 05/07/13 1331 Status: Signed Tool Room Supervisor: MARTHA Kunz (Asset Card Clerk) 05/07/13 1331 Discharge Planning Evaluation Living Arrangements Spouse/significant other Support Systems Spouse/significant other;Children Type of Residence Private residence House type House-[facility] No Prior functional status Independent prior to admit. Was employed for [employer] in [place]. Met with: pt's 2 daughters Ashlyn and Juli and discussed discharge planning, Pt is a 47 y.o., female admitted with the flu and bilater al pneumonia. Pt is vented. Non smoker; has asthma. and lives with her Amado (22 years) in [place]. 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 He is sick with the flu as well so is no t coming in to visit the patient. Pt has a step-daughter in [place] and a son in [place]. 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 She was independent prior to admit. Pt's [...] they can sleep 1 night in the [facility] room but that [facility] does not have a "JoséZalicus" type house in the community. I a sked if they had a spiritism that would support them. They are [employer] so I called curriculum supervisor Tim who got the girls connected with a local Griggs from the [facility] and hopefully can assist wi th some housing. I offered gas vouchers if they need to transport back and forth from [facility]. CM to follow to provide support and assist with d/c planning. Patient's PCP is: MARY VALDEZ Patient's insurance:[employer] Coverage concerns: Medication coverage/concerns: Community resources utilized / needed: Assistance in transportation: TBD Identification of any specific education / training: Barriers to Discharge / Alternative housing needed: Anticipated DCP: TBLinh NIETO onver elaina Transaction, Provider Unknown - 05/07/2013 12:21 PM PST Progress Notes by Joseph Steward at 05/07/13 1221 Author: Joseph Steward Service: (none) Author Type: Arson And Bomb Investigator Filed: 05/07/13 1223 Date of Service: 05/07/13 1221 Status: Signed Tool Room Supervisor: Joseph Steward () received call back from [employer] leader Luis Blunt, who then came promptly to ass ist dtrs with their needs. Chaplain Joseph Steward BCC Al Gonzalez MD - 05/07/2013 11:43 AM PSTFormatting of this note might be different from the o riginal. Progress Notes by Al Houston MD at 05/07/13 1143 Author: Al Houston MD Service: (none) Author Type: Orderlies Teacher Filed: 05/07/13 1223 Date of Service: 05/07/13 1143 Status: Signed Tool Room Supervisor: Al Houston MD (Physician) [facility] Service: Orderlies Teacher Progress Note Gilma Salmon 47 y.o. Hospital [...] initi ated on May 01, 2013 at [facility]. A-line placed right radial artery [facility] 2013. Events Overnight: Trying to wean peep [...] Date of Service: 05/07/13 1035 Status: Signed Tool Room Supervisor: Joseph Steward () Family referral for help in contacting local [employer] leadership for housing assistance for pt's 2 dtrs who are from [place]. Called/msg for local [employer] leader. Awaiting call back. Chaplain Joseph Steward BCC onver elaina Transaction, Provider Unknown - 05/06/2013 5:52 AM PST Progress Notes by Han Guerrero DMD at 05/06/13 0552 Author: Han Guerrero DMD Service: Orderlies Teacher Author Type: Physician Filed: 05/07/13 0448 Date of Service: 05/06/13 0552 Status: Signed Tool Room Supervisor: Han Guerrero DMD (Dentist) Related Notes: Original Note by Han Guerrero DMD (Dentist) filed at 05/06/13 0610 [facility] Service: Orderlies Teacher Progress Note Gilma Salmon 47 y.o. Hospital [...] initi ated on May 01, 2013 at [facility]. A-line placed right radial artery Ja 2013. Events Overnight: The patient had a [...] sulfate, nystatin, nystatin, ondan setron, ondansetron, pancrelipase (Rjm-Urdm-Gxah) 10,000 units, petrolatum, phosphorus, pota ssium chloride, [...] Service: (none) Author Type: Physician Filed: 05/05/13 3205 Date of Service: 05/05/132244 Status: Signed Tool Room Supervisor: Han Guerrero DMD (Dentist) [facility] Service: Orderlies Teacher PM note Gilma M Viky 47 y.o. Evaluated the patient in [...] 141 Date of Service: 05/05/131414 Status: Signed Tool Room Supervisor: Jenniffer Hidalgo RPH (Pharmacist) Initiation of Vancomycin Pharmacy Dosing Gilma Salmon 47 y.o. female 1.676 m (5' 6") 138.9 kg (306 lb 3.5 oz) Body mass index is 49.45 kg/(m^2). [place] Body Weight: 59.3 kg Adjusted Body Weight: 91.1 kg CREATININE Date Value Range Status 05/05/2013 0.81 0.50 - 1.00 mg/dL Final Testing performed at [facility];[address] [facility];[place] [address] Estimated CrCl : CREATININE: 0.81 (05/05/13 1320) [...] Filed: 05/05/13 1251 Date of Service: 05/05/13 1253 Status: Signed Tool Room Supervisor: Jenniffer Hidalgo RPH (Pharmacist) Renal Dosing Monitoring: [...] H&P by Estefania Brannon DO at 05/05/13 2894 Author: Estefania Brannon DO Service: Orderlies Teacher Author Type: Orderlies Teacher Filed: 05/05/13 1509 Date of Service: 05/05/13 1309 Status: Addendum Tool Room Supervisor: Estefania Brannon DO (Physician) Related Notes: Original Note by Estefania Brannon DO (Physician) filed at 05/05/13 3239 [facility] Service: Orderlies Teacher Admission History & Physical Gilma Salmon 47 y.o. Date of Admission: 05/05/2013 Requesting Physician: Dr. Hernandes, Hospitalist at [facility] Indication for ICU Admission: acute respiratory failure, [...] who pres ented to the ED at [facility] on 05/01 for cough and fever and was discharged home. She pr esented there again the next day with SOB, weakness, cough, fever and dizziness. She was the n admitted and tested positive for influenza A and was started on Tamiflu. She became progre ssively more hypoxemic with increasing b/l infiltrates on CXR and was transferred to [facility] for further management after she was intubated on the evening of 05/04. (Pt had just receiv ed flu shot on 04/29/13 at [facility]). REVIEW OF SYSTEMS A comprehensive review of [...] (05/05 1225) BP: (135)/(67) 135/67 mmHg (05/05 122) Heart Rate: [98-102] 98 (05/05 1230) Resp: [...] for intubation: daily sedation holidays and keep Connie 2-3. CARDIOVASCULAR: Hemodynamically stable PULMONARY: Acute respiratory failure: due to Influenza A pneumonia. Will send sputum for cx as at r isk for secondary bacterial PNA. Will keep higher PEEP and wean FIO2 for sats >90%. Asthma: without e/o acute exacerbation. ETT a little high on CXR, will advance 2 cm. GI: Elevated AST/ALT: mild. Monitor. Had neg viral hepatitis serologies at [facility]. RENAL: Hypokalemia: replace and follow HypoMg: [...] Procedures by Shalonda Novoa MD at 05/11/13 6724 Author: Shalonda Novoa MD Service: (none) Author Type: Physician Filed: 05/11/13 8949 Date of Service: 05/11/13 2310 Status: Signed Tool Room Supervisor: Shalonda Novoa MD (Physician) [facility] Service: Otolaryngology Operative Note Pre-operative Diagnosis: Respiratory Failure Post-operative Diagnosis: Same Procedure(s): Tracheostomy, Nasogastric tube insertion Surgeon: SHALONDA NOVOA MD Special Education Professor(s): Alexandrea LOUIS Anesthesia: General endotrachial anesthesia Estimated Blood Loss: Less Than 50 ml Other: #8 Shiley DCT tracheostomy tube, 10 Greek nasogastric feeding tube Indications: 47 YOF with [...] 010 Date of Service: 05/06/13100 Status: Signed Tool Room Supervisor: Han Guerrero DMD (Dentist) Procedure Orders: 1. Insert arterial line [[id number]] ordered by Hna Guerrero DMD at 05/06/13 010 Post-procedure Diagnoses: 1. Acute respiratory failure (HCC) [518.81] [facility] Service: Orderlies Teacher BEDSIDE PROCEDURE NOTE Insert Arterial Line Date/Time: 05/05/2013 1:01 AM Performed by: HAN GUERRERO Authorized by: HAN GUERRERO Consent: The procedure was performed in an emergent situation. Patient identity confirmed: anonymous protocol, patient vented/unresponsive Time out: Immediately prior to procedure a "time out" was called to verify the correct gee ent, procedure, equipment, it desktop support specialist and site/side marked as required. [...] Consult* by Shalonda Novoa MD at 05/11/13 1026 Author: Shalonda Novoa MD Service: (none) Author Type: Physician Filed: 05/11/13 1039 Date of Service: 05/11/13 1026 Status: Signed Tool Room Supervisor: Shalonda Novoa MD (Physician) [facility] Service: Otolaryngology Initial Consult Note Date of Admission: 05/05/2013 Reason for Consultation: Respiratory Failure requiring mechanical ventilation Requesting Physician: Orderlies Teacher History Obtained From: daughter, chart review Date of Service: 05/10/2013 CHIEF COMPLAINT: Respiratory failure HISTORY OF PRESENT ILLNESS The patient is a 47 y.o. female with morbid obesity who was transferred to [facility] on 2013 with the diagnosis of ARDS with influenza A, on Tamiflu. She also has a history o f poorly controlled diabetes type 2, asthma and bronchitis with prior DVT. The patient was a dmitted on May 05, 2013. Mechanical ventilation initiated on May 01, 2013 at [facility]. A-line placed right radial artery May [...] sulfate, nystatin, nystatin, ondansetron, on dansetron, pancrelipase (Hsy-Qvlz-Tety) 10,000 units, petrolatum, phosphorus, potassium chlo ride, potassium chloride, potassium chloride, sodium bicarbonate, sodium chloride 0.9 %, sod ium glycerophosphate IVPB 20 mMol, sodium glycerophosphate IVPB 45 mMol [DISCONTINUED] pancrelipase (Lgh-Tlfh-Qpib) 10,000 units, [DISCONTINUED] pancrelipase (Lip- Prot-Amyl) 10,000 [...] 05/07/13941 Date of Service: 05/07/13941 Status: Signed Tool Room Supervisor: Ann Marie Garcia RN (Registered Nurse) Problem: [...] | | | | Visit | | [employer] [address] | | | | | | [place] [address] | | | | | | [phone] | | | | | | | [...] | | | Fingerstick | performed at [facility];[address] | | LAB | | | | [address];[place] | | | | | | [address] | | | | + + + [...] | LAB | | | | [facility], [address] | | | | | | [place] | | | | | | [address] | | | | + + + + + + | HEP B | NON REACTIVEComment: | | EXTERNAL | | | SURFACE | Testing performed at | | LAB | | | ANTIBODY | [facility], [address] [facility] | | | | | | [place] | | | | | | [address] | | | | + + + + + + | Hepatitis B | NON REACTIVEComment: | | EXTERNAL | | | Core Ab | Testing performed at | | LAB | | | Total | [facility], [address] [facility] | | | | | | [place] | | | | | | [address] | | | | + + + [...] | | | | | performed at [facility], [address] | | | | | | [address], | | | | | | [place] [address] | | | | + + + + + + | HCV Ab | NON REACTIVEComment: | | EXTERNAL | | | | Testing performed at | | LAB | | | | [facility], [address] [facility] | | | | | | [place] | | | | | | [address] | | | | + + + [...] at | | | | | | [facility], [address] [facility] | | | | | | [place] | | | | | | [address] | | | | + + + [...] | | | Fingerstick | performed at [facility];[address] | | LAB | | | | [address];[place], [place] | | | | | | [address] | | | | + + + [...] | | | Fingerstick | performed at [facility];[address] | | LAB | | | | [address];[place] | | | | | | [address] | | | | + + + [...] | | | Fingerstick | performed at [facility];[address] | | LAB | | | | [address];[place] | | | | | | [address] | | | | + + + [...] EXTERNAL | | | | performed at [facility];888 | mmol/L | LAB | | | | [address] [facility];[place] | | | | | | [address] | | | | + + + [...] | | | Fingerstick | performed at [facility] | | LAB | | | | [address];[place], [place] | | | | | | [address] | | | | + + + [...] 1:53 PM PDT GILMA SALMONXR CHEST 1 VIEW05/13/2013 | | 5:34 AM [...] EXTERNAL | | | | performed at [facility];[address] | | LAB | | | | [address];[place] | | | | | | [address] | | | | + + + + + + | Red Blood | 3.77Comment: Testing | 3.70 - 5.10 | EXTERNAL | | | Cells | performed at [facility];[address] | M/uL | LAB | | | Counted | [address];[place] | | | | | | [address] | | | | + + + + + + | Hemoglobin | 10.4 (L)Comment: Testing | 11.3 - 15.5 | EXTERNAL | | | | performed at [facility];888 | g/dL | LAB | | | | [address];[place] | | | | | | [address] | | | | + + + + + + | Hematocrit, | 30.3 (L)Comment: Testing | 34.0 - 46.0 % | EXTERNAL | | | POC | performed at [facility];[address] | | LAB | | | | [address];[place] | | | | | | [address] | | | | + + + + + + | MCV | 80.4Comment: Testing | 80.0 - 100.0 fl | EXTERNAL | | | | performed at [facility];[address] | | LAB | | | | [address];[place] | | | | | | [address] | | | | + + + + + + | MCH | 27.6Comment: Testing | 27.0 - 34.0 pg | EXTERNAL | | | | performed at [facility];[address] | | LAB | | | | [address];[place] | | | | | | [address] | | | | + + + + + + | MCHC | 34.3Comment: Testing | 32.0 - 35.5 | EXTERNAL | | | | performed at [facility];888 | g/dL | LAB | | | | [address];[place] | | | | | | [address] | | | | + + + + + + | RDW-CV | 40.3Comment: Testing | 37 - 53 fl | EXTERNAL | | | | performed at [facility];[address] | | LAB | | | | [address];[place] | | | | | | [address] | | | | + + + + + + | Platelet | 544 (H)Comment: Testing | 150 - 400 K/uL | EXTERNAL | | | Count | performed at [facility];[address] | | LAB | | | Plasma | [address];[place] | | | | | | [address] | | | | + + + + + + | MPV | 6.6Comment: Testing | fl | EXTERNAL | | | | performed at [facility];[address] | | LAB | | | | [address];[place] | | | | | | [address] | | | | + + + + + + | Differentia | AUTOMATEDComment: | | EXTERNAL | | | l Type | Testing performed at | | LAB | | | | [facility];[address];[place] [address] | | | | + + + [...] EXTERNAL | | | | performed at [facility];[address] | | LAB | | | | [address];[place] | | | | | | [address] | | | | + + + [...] EXTERNAL | | | | performed at [facility];[address] | mmol/L | LAB | | | | [address];[place] | | | | | | [address] | | | | + + + + + + | K | 3.5Comment: Testing | 3.5 - 4.9 | EXTERNAL | | | | performed at [facility];[address] | mmol/L | LAB | | | | [address];[place] | | | | | | [address] | | | | + + + + + + | Cl | 102Comment: Testing | 99 - 109 mmol/L | EXTERNAL | | | | performed at [facility];[address] | | LAB | | | | [address];[place] | | | | | | [address] | | | | + + + + + + | CO2 | 29Comment: Testing | 23 - 32 mmol/L | EXTERNAL | | | | performed at [facility];[address] | | LAB | | | | [address];[place] | | | | | | [address] | | | | + + + + + + | Anion Gap | 10Comment: Testing | 5 - 20 mmol/L | EXTERNAL | | | | performed at [facility];[address] | | LAB | | | | [address];[place] | | | | | | [address] | | | | + + + + + + | Glucose, | 106 (H)Comment: Testing | 65 - 99 mg/dL | EXTERNAL | | | Fasting | performed at [facility];[address] | | LAB | | | | [address];[place] | | | | | | [address] | | | | + + + + + + | BUN | 16Comment: Testing | 8 - 25 mg/dL | EXTERNAL | | | | performed at [facility];[address] | | LAB | | | | [address];[place] | | | | | | [address] | | | | + + + + + + | Creatinine | 0.55Comment: Testing | 0.50 - 1.00 | EXTERNAL | | | | performed at [facility];[address] | mg/dL | LAB | | | | [address];[place] | | | | | | [address] | | | | + + + + + + | BUN/Creatin | 30Comment: Testing | | EXTERNAL | | | ine Ratio | performed at [facility];[address] | | LAB | | | | [address];[place] | | | | | | [address] | | | | + + + + + + | Calcium | 8.5Comment: Testing | 8.5 - 10.2 | EXTERNAL | | | | performed at [facility];[address] | mg/dL | LAB | | | | [address];[place] | | | | | | [address] | | | | + + + + + + | Protein, | 7.5Comment: Testing | 6.3 - 8.2 g/dL | EXTERNAL | | | Total | performed at [facility];[address] | | LAB | | | | [address];[place] | | | | | | [address] | | | | + + + + + + | Albumin | 2.2 (L)Comment: Testing | 3.6 - 5.0 g/dL | EXTERNAL | | | | performed at [facility];[address] | | LAB | | | | [address];[place] | | | | | | [address] | | | | + + + + + + | Globulin | 5.3 (H)Comment: Testing | 1.3 - 4.9 g/dL | EXTERNAL | | | | performed at [facility];[address] | | LAB | | | | [address];[place] | | | | | | [address] | | | | + + + + + + | A/G Ratio | 0.4 (L)Comment: Testing | 1.0 - 2.4 | EXTERNAL | | | | performed at [facility];[address] | | LAB | | | | [address];[place] | | | | | | [address] | | | | + + + + + + | Bilirubin | 0.5Comment: Testing | 0.1 - 1.5 mg/dL | EXTERNAL | | | Total | performed at [facility];[address] | | LAB | | | | [address];[place] | | | | | | [address] | | | | + + + + + + | ALP, | 118 (H)Comment: Testing | 35 - 115 U/L | EXTERNAL | | | External | performed at [facility];[address] | | LAB | | | | [address];[place] | | | | | | [address] | | | | + + + + + + | AST | 69 (H)Comment: Testing | 10 - 45 U/L | EXTERNAL | | | | performed at [facility];[address] | | LAB | | | | [address];[place] | | | | | | [address] | | | | + + + + + + | ALT | 81 (H)Comment: Testing | 10 - 65 U/L | EXTERNAL | | | | performed at [facility];[address] | | LAB | | | | [address];[place] | | | | | | [address] | | | | + + + [...] | | | | | | at [facility];[address];[place] [address] | | | | + + + [...] | | | Fingerstick | performed at [facility];[address] | | LAB | | | | [address];[place] | | | | | | [address] | | | | + + + [...] | | | Fingerstick | performed at [facility];[address] | | LAB | | | | [address];[place], [place] | | | | | | [address] | | | | + + + [...] EXTERNAL | | | | performed at [facility];888 | mmol/L | LAB | | | | [address];[place] | | | | | | [address] | | | | + + + + + + | K | 4.0Comment: Testing | 3.5 - 4.9 | EXTERNAL | | | | performed at [facility];[address] | mmol/L | LAB | | | | [address];[place] | | | | | | [address] | | | | + + + + + + | Cl | 100Comment: Testing | 99 - 109 mmol/L | EXTERNAL | | | | performed at [facility];[address] | | LAB | | | | [address];[place] | | | | | | [address] | | | | + + + + + + | CO2 | 31Comment: Testing | 23 - 32 mmol/L | EXTERNAL | | | | performed at [facility];[address] | | LAB | | | | [address];[place] | | | | | | [address] | | | | + + + + + + | Anion Gap | 9Comment: Testing | 5 - 20 mmol/L | EXTERNAL | | | | performed at [facility];[address] | | LAB | | | | [address];[place] | | | | | | [address] | | | | + + + + + + | Glucose, | 179 (H)Comment: Testing | 65 - 99 mg/dL | EXTERNAL | | | Fasting | performed at [facility];[address] | | LAB | | | | [address];[place] | | | | | | [address] | | | | + + + + + + | BUN | 20Comment: Testing | 8 - 25 mg/dL | EXTERNAL | | | | performed at [facility];[address] | | LAB | | | | [address];[place] | | | | | | [address] | | | | + + + + + + | Creatinine | 0.67Comment: Testing | 0.50 - 1.00 | EXTERNAL | | | | performed at [facility];888 | mg/dL | LAB | | | | [address];[place] | | | | | | [address] | | | | + + + + + + | BUN/Creatin | 29Comment: Testing | | EXTERNAL | | | ine Ratio | performed at [facility];[address] | | LAB | | | | [address];[place] | | | | | | [address] | | | | + + + + + + | Calcium | 8.8Comment: Testing | 8.5 - 10.2 | EXTERNAL | | | | performed at [facility];[address] | mg/dL | LAB | | | | [address];[place] | | | | | | [address] | | | | + + + [...] | | | | | | at [facility];[address];[place] [address] | | | | + + + [...] | | | Fingerstick | performed at [facility];[address] | | LAB | | | | [address];[place], [place] | | | | | | [address] | | | | + + + [...] Performed At | + + + | [facility] XR CHEST 1 VIEW 05/12/2013 5:47 [...] Conversion - 11/20/2018 1:53 PM PDT GILMA LIMAXR CHEST 1 VIEW05/12/2013 | | 5:47 AM [...] | | | Fingerstick | performed at [facility];[address] | | LAB | | | | [address] [facility];[place], [place] | | | | | | [address] | | | | + + + [...] | | | | | [place] [address] | | | | + + + + + + | Red Blood | 3.90Comment: Testing | 3.70 - 5.10 | EXTERNAL | | | Cells | performed at [facility], [address] | M/uL | LAB | | | Counted | [address] [place], | | | | | | [place] [address] | | | | + + + + + + | Hemoglobin | 10.4 (L)Comment: Testing | 11.3 - 15.5 | EXTERNAL | | | | performed at [facility], [address] | g/dL | LAB | | | | [address] [place], | | | | | | [place] [address] | | | | + + + + + + | Hematocrit, | 31.8 (L)Comment: Testing | 34.0 - 46.0 % | EXTERNAL | | | POC | performed at [facility], [address] | | LAB | | | | [address] [place], | | | | | | [place] [address] | | | | + + + + + + | MCV | 81.6Comment: Testing | 80.0 - 100.0 fl | EXTERNAL | | | | performed at [facility], [address] | | LAB | | | | [address] [place], | | | | | | [place] [address] | | | | + + + + + + | MCH | 26.7 (L)Comment: Testing | 27.0 - 34.0 pg | EXTERNAL | | | | performed at [facility], [address] | | LAB | | | | [address] [place], | | | | | | [place] [address] | | | | + + + + + + | MCHC | 32.7Comment: Testing | 32.0 - 35.5 | EXTERNAL | | | | performed at [facility], [address] | g/dL | LAB | | | | [address], | | | | | | [place] [address] | | | | + + + + + + | RDW-CV | 39.8Comment: Testing | 37 - 53 fl | EXTERNAL | | | | performed at [facility], [address] | | LAB | | | | [address], | | | | | | [place] [address] | | | | + + + + + + | Platelet | 469 (H)Comment: Testing | 150 - 400 K/uL | EXTERNAL | | | Count | performed at [facility], [address] | | LAB | | | Plasma | [address], | | | | | | [place] [address] | | | | + + + + + + | MPV | 7.1Comment: Testing | fl | EXTERNAL | | | | performed at [facility], [address] | | LAB | | | | [address], | | | | | | [place] [address] | | | | + + + + + + | Differentia | AUTOMATEDComment: | | EXTERNAL | | | l Type | Testing performed at | | LAB | | | | [facility], [address] | | | | | | [place] | | | | | | [address] | | | | + + + [...] EXTERNAL | | | | performed at [facility], [address] | | LAB | | | | [address] [place], | | | | | | [place] [address] | | | | + + + [...] | | | | | [place] [address] | | | | + + + + + + | K | 3.7Comment: Testing | 3.5 - 4.9 | EXTERNAL | | | | performed at [facility], [address] | mmol/L | LAB | | | | [address], | | | | | | [place] [address] | | | | + + + + + + | Cl | 102Comment: Testing | 99 - 109 mmol/L | EXTERNAL | | | | performed at [facility], [address] | | LAB | | | [address], | | | | | | [place] [address] | | | | + + + + + + | CO2 | 29Comment: Testing | 23 - 32 mmol/L | EXTERNAL | | | | performed at [facility], [address] | | LAB | | | | [address], | | | | | | [place] [address] | | | | + + + + + + | Anion Gap | 9Comment: Testing | 5 - 20 mmol/L | EXTERNAL | | | | performed at [facility], [address] | | LAB | | | | [address], | | | | | | [place] [address] | | | | + + + + + + | Glucose, | 147 (H)Comment: Testing | 65 - 99 mg/dL | EXTERNAL | | | Fasting | performed at [facility], [address] | | LAB | | | | [address], | | | | | | [place] [address] | | | | + + + + + + | BUN | 18Comment: Testing | 8 - 25 mg/dL | EXTERNAL | | | | performed at [facility], [address] | | LAB | | | | [address] [place], | | | | | | [place] [address] | | | | + + + + + + | Creatinine | 0.45 (L)Comment: Testing | 0.50 - 1.00 | EXTERNAL | | | | performed at [facility], [address] | mg/dL | LAB | | | | [address], | | | | | | [place] [address] | | | | + + + + + + | BUN/Creatin | 40Comment: Testing | | EXTERNAL | | | ine Ratio | performed at [facility], [address] | | LAB | | | | [address], | | | | | | [place] [address] | | | | + + + + + + | Calcium | 8.9Comment: Testing | 8.5 - 10.2 | EXTERNAL | | | | performed at [facility], [address] | mg/dL | LAB | | | | [address], | | | | | | [place] [address] | | | | + + + + + + | Protein, | 7.1Comment: Testing | 6.3 - 8.2 g/dL | EXTERNAL | | | Total | performed at [facility], [address] | | LAB | | | [address], | | | | | | [place] [address] | | | | + + + + + + | Albumin | 2.8 (L)Comment: Testing | 3.6 - 5.0 g/dL | EXTERNAL | | | | performed at [facility], [address] | | LAB | | | | [address], | | | | | | [place] [address] | | | | + + + + + + | Globulin | 4.3Comment: Testing | 1.3 - 4.9 g/dL | EXTERNAL | | | | performed at [facility], [address] | | LAB | | | | [address], | | | | | | [place] [address] | | | | + + + + + + | A/G Ratio | 0.7 (L)Comment: Testing | 1.0 - 2.4 | EXTERNAL | | | | performed at [facility], [address] | | LAB | | | | [address], | | | | | | [place] [address] | | | | + + + + + + | Bilirubin | 0.5Comment: Testing | 0.1 - 1.5 mg/dL | EXTERNAL | | | Total | performed at [facility], [address] | | LAB | | | | [address], | | | | | | [place] [address] | | | | + + + + + + | ALP, | 94Comment: Testing | 35 - 115 U/L | EXTERNAL | | | External | performed at [facility], [address] | | LAB | | | | [address], | | | | | | [place] [address] | | | | + + + + + + | AST | 62 (H)Comment: Testing | 10 - 45 U/L | EXTERNAL | | | | performed at [facility], [address] | | LAB | | | | [address], | | | | | | [place] [address] | | | | + + + + + + | ALT | 70 (H)Comment: Testing | 10 - 65 U/L | EXTERNAL | | | | performed at [facility], [address] | | LAB | | | | [address], | | | | | | [place] [address] | | | | + + + [...] | | | | | | [address], | | | | | | [place] [address] | | | | + + + [...] | | | Fingerstick | performed at [facility];[address] | | LAB | | | | [address];[place] | | | | | | [address] | | | | + + + [...] EXTERNAL | | | | performed at [facility];[address] | mmol/L | LAB | | | | [address];[place] | | | | | | [address] | | | | + + + [...] EXTERNAL | | | | performed at [facility];[address] | | LAB | | | | [address];[place] | | | | | | [address] | | | | + + + [...] EXTERNAL | | | | performed at [facility];[address] | | LAB | | | | [address];[place], [place] | | | | | | [address] | | | | + + + [...] | | | Fingerstick | performed at [facility];888 | | LAB | | | | [address];[place] | | | | | | [address] | | | | + + + [...] | | | Fingerstick | performed at [facility];888 | | LAB | | | | [address];[place], [place] | | | | | | [address] | | | | + + + [...] Conversion - 11/20/2018 1:53 PM PDT GILMA LIMADollyXR CHEST 1 VIEW05/11/2013 | | 12:42 PM [...] | | | Fingerstick | performed at [facility];888 | | LAB | | | | [address];[place] | | | | | | [address] | | | | + + + [...] GILMA SALMON XR CHEST 1 VIEW 05/11/2013 5:53 [...] | | | (Calc) | performed at [facility];888 | mmol/L | LAB | | | | [address];[place] | | | | | | [address] | | | | + + + + + + | pH, Bld | 7.463 (H)Comment: | 7.300 - 7.450 | EXTERNAL | | | | Testing performed at | | LAB | | | | [facility];[address];[place] [address] | | | | + + + [...] | | | | | performed at [facility];88 | | | | | | [facility];[place], [place] | | | | | | [address] | | | | + + + [...] EXTERNAL | | | | performed at [facility];888 | | LAB | | | | [address];[place] | | | | | | [address] | | | | + + + + + + | Red Blood | 3.85Comment: Testing | 3.70 - 5.10 | EXTERNAL | | | Cells | performed at [facility];888 | M/uL | LAB | | | Counted | [address];[place] | | | | | | [address] | | | | + + + + + + | Hemoglobin | 10.6 (L)Comment: Testing | 11.3 - 15.5 | EXTERNAL | | | | performed at [facility];888 | g/dL | LAB | | | | [address];[place] | | | | | | [address] | | | | + + + + + + | Hematocrit, | 31.0 (L)Comment: Testing | 34.0 - 46.0 % | EXTERNAL | | | POC | performed at [facility];888 | | LAB | | | | [address];[place] | | | | | | [address] | | | | + + + + + + | MCV | 80.5Comment: Testing | 80.0 - 100.0 fl | EXTERNAL | | | | performed at [facility];888 | | LAB | | | | [address];[place] | | | | | | [address] | | | | + + + + + + | MCH | 27.5Comment: Testing | 27.0 - 34.0 pg | EXTERNAL | | | | performed at [facility];888 | | LAB | | | | [address];[place] | | | | | | [address] | | | | + + + + + + | MCHC | 34.1Comment: Testing | 32.0 - 35.5 | EXTERNAL | | | | performed at [facility];888 | g/dL | LAB | | | | [address];[place] | | | | | | [address] | | | | + + + + + + | RDW-CV | 41.1Comment: Testing | 37 - 53 fl | EXTERNAL | | | | performed at [facility];888 | | LAB | | | | [address];[place] | | | | | | [address] | | | | + + + + + + | Platelet | 484 (H)Comment: Testing | 150 - 400 K/uL | EXTERNAL | | | Count | performed at [facility];888 | | LAB | | | Plasma | [address];[place] | | | | | | [address] | | | | + + + + + + | MPV | 6.8Comment: Testing | fl | EXTERNAL | | | | performed at [facility];888 | | LAB | | | | [address];[place] | | | | | | [address] | | | | + + + + + + | Differentia | AUTOMATEDComment: | | EXTERNAL | | | l Type | Testing performed at | | LAB | | | | [facility];[address];[place] [address] | | | | + + + [...] EXTERNAL | | | | performed at [facility];888 | | LAB | | | | [address];[place], [place] | | | | | | [address] | | | | + + + [...] EXTERNAL | | | | performed at [facility];88 | | LAB | | | | [address];[place], [place] | | | | | | [address] | | | | + + + [...] EXTERNAL | | | | performed at [facility];888 | mmol/L | LAB | | | | [address];[place] | | | | | | [address] | | | | + + + + + + | K | 3.9Comment: Testing | 3.5 - 4.9 | EXTERNAL | | | | performed at [facility];888 | mmol/L | LAB | | | | [address];[place] | | | | | | [address] | | | | + + + + + + | Cl | 104Comment: Testing | 99 - 109 mmol/L | EXTERNAL | | | | performed at [facility];888 | | LAB | | | | [address];[place] | | | | | | [address] | | | | + + + + + + | CO2 | 27Comment: Testing | 23 - 32 mmol/L | EXTERNAL | | | | performed at [facility];888 | | LAB | | | | [address];[place] | | | | | | [address] | | | | + + + + + + | Anion Gap | 10Comment: Testing | 5 - 20 mmol/L | EXTERNAL | | | | performed at [facility];888 | | LAB | | | | [address];[place] | | | | | | [address] | | | | + + + + + + | Glucose, | 151 (H)Comment: Testing | 65 - 99 mg/dL | EXTERNAL | | | Fasting | performed at [facility];888 | | LAB | | | | [address];[place] | | | | | | [address] | | | | + + + + + + | BUN | 17Comment: Testing | 8 - 25 mg/dL | EXTERNAL | | | | performed at [facility];888 | | LAB | | | | [address];[place] | | | | | | [address] | | | | + + + + + + | Creatinine | 0.57Comment: Testing | 0.50 - 1.00 | EXTERNAL | | | | performed at [facility];888 | mg/dL | LAB | | | | [address];[place] | | | | | | [address] | | | | + + + + + + | BUN/Creatin | 29Comment: Testing | | EXTERNAL | | | ine Ratio | performed at [facility];888 | | LAB | | | | [address];[place] | | | | | | [address] | | | | + + + + + + | Calcium | 8.3 (L)Comment: Testing | 8.5 - 10.2 | EXTERNAL | | | | performed at [facility];888 | mg/dL | LAB | | | | [address];[place] | | | | | | [address] | | | | + + + + + + | Protein, | 7.1Comment: Testing | 6.3 - 8.2 g/dL | EXTERNAL | | | Total | performed at [facility];888 | | LAB | | | | [address];[place] | | | | | | [address] | | | | + + + + + + | Albumin | 1.9 (L)Comment: Testing | 3.6 - 5.0 g/dL | EXTERNAL | | | | performed at [facility];888 | | LAB | | | | [address];[place] | | | | | | [address] | | | | + + + + + + | Globulin | 5.1 (H)Comment: Testing | 1.3 - 4.9 g/dL | EXTERNAL | | | | performed at [facility];888 | | LAB | | | | [address];[place] | | | | | | [address] | | | | + + + + + + | A/G Ratio | 0.4 (L)Comment: Testing | 1.0 - 2.4 | EXTERNAL | | | | performed at [facility];888 | | LAB | | | | [address];[place] | | | | | | [address] | | | | + + + + + + | Bilirubin | 0.5Comment: Testing | 0.1 - 1.5 mg/dL | EXTERNAL | | | Total | performed at [facility];888 | | LAB | | | | [address];[place] | | | | | | [address] | | | | + + + + + + | ALP, | 120 (H)Comment: Testing | 35 - 115 U/L | EXTERNAL | | | External | performed at [facility];888 | | LAB | | | | [address];[place] | | | | | | [address] | | | | + + + + + + | AST | 79 (H)Comment: Testing | 10 - 45 U/L | EXTERNAL | | | | performed at [facility];888 | | LAB | | | | [address];[place] | | | | | | [address] | | | | + + + + + + | ALT | 78 (H)Comment: Testing | 10 - 65 U/L | EXTERNAL | | | | performed at [facility];888 | | LAB | | | | [address];[place] | | | | | | [address] | | | | + + + [...] | | | | | | at [facility];[address] [place] [address] | | | | | | [facility];[place] [address] | | | | + + + [...] | | | Fingerstick | performed at [facility];[address] | | LAB | | | | [address];[place], [place] | | | | | | [address] | | | | + + + [...] | | | Patient | performed at [facility];888 | | LAB | | | | [address];[place], [place] | | | | | | [address] | | | | + + + [...] | | | | | performed at [facility];888 | | | | | | [address] [facility];[place], [place] | | | | | | [address] | | | | + + + [...] | | | Fingerstick | performed at [facility];888 | | LAB | | | | [address];[place] | | | | | | [address] | | | | + + + [...] EXTERNAL | | | | performed at [facility];888 | mmol/L | LAB | | | | [address];[place], [place] | | | | | | [address] | | | | + + + [...] EXTERNAL | | | | performed at [facility];888 | | LAB | | | | [address];[place], [place] | | | | | | [address] | | | | + + + [...] EXTERNAL | | | | performed at [facility];888 | | LAB | | | | [address];[place], [place] | | | | | | [address] | | | | + + + [...] | | | Fingerstick | performed at [facility];888 | | LAB | | | | [address];[place] | | | | | | [address] | | | | + + + [...] Excursion: 2.11 cm E-F | | | Crisp: 0.14 m/s IVC diameter: 2.19 cm IVC [...] 0.56 m/s TV | | | Dec Crisp: 4.82 m/s2 TV Dec Time: 116.68 ms TV E Cindy: 0.56 | | | m/s TV E/A Ratio: 1 Secondary Market Manager: MARISA Authenticated by: Daina | | | [...] (A-L): 14.81 ml/m2LAAs A2C: 11.70 | | bt3ALAYG A-L A2C: 27.34 mlLALs A2C: 4.25 cmLAAs A4C: 15.34 [id number] A-L A4C: | | 38.61 mlLALs A4C: 5.17 cmAo Diam: 2.95 cmAV Cusp: 1.94 cmLA Diam: 3.01 cmLA/Ao: | | 1.02%FS: 33.07 %EDV(Teich): 93.02 mlEF(Teich): 61.77 %ESV(Teich): 35.55 | | mlIVSd: 1.18 cmIVSs: 1.31 cmLVIDd: 4.51 cmLVIDs: 3.01 cmLVPWd: 0.59 cmLVPWs: | | 1.28 cmSV(Teich): 57.46 mlD-E Excursion: 2.11 cmE-F Crisp: 0.14 m/sIVC diameter: | | 2.19 cmIVC collapse: 1.56 cmIVC % collapse: 26.37 %HR: 87.57 BPMAV maxPG: | | 10.95 mmHgAV meanP.08 mmHgAV Vmax: 1.65 m/Dalia Vmean: 1.16 m/Dalia VTI: 31.75 | | cmAVA Vmax: 2.87 cm2AVA (VTI): 3.09 om4SQVW Dopp: 3.61 l/cktj9TJWA Dopp: 8.73 | | l/minHR: 88.92 BPMLVOT [...] 2.30 m/sTV A Cindy: 0.56 m/sTV Dec Crisp: 4.82 m/s2TV Dec Time: | | 116.68 msTV E Cindy: 0.56 m/sTV E/A Ratio: 1 Secondary Market Manager: Bevted by: Daina | | [facility] Date/Time: 05-10-2013 18:08:33 IMPRESSION: 1. [...] | |D-E Excursion: 2.11 cm | |E-F Crisp: 0.14 m/s | |IVC diameter: 2.19 cm [...] A Cindy: 0.56 m/s | |TV Dec Crisp: 4.82 m/s2 | |TV Dec Time: 116.68 ms | |TV E Cindy: 0.56 m/s | |TV E/A Ratio: 1 | | | |Secondary Market Manager: KVW | |Authenticated by: Daina Alan MD [...] | | | Fingerstick | performed at [facility];888 | | LAB | | | | [address];[place], [place] | | | | | | [address] | | | | + + + [...] | | | | | [place] [address] | | | | + + + + + + | Red Blood | 3.73Comment: Testing | 3.70 - 5.10 | EXTERNAL | | | Cells | performed at [facility], [address] | M/uL | LAB | | | Counted | [address], | | | | | | [place] [address] | | | | + + + + + + | Hemoglobin | 10.6 (L)Comment: Testing | 11.3 - 15.5 | EXTERNAL | | | | performed at [facility], [address] | g/dL | LAB | | | | [address], | | | | | | [place] [address] | | | | + + + + + + | Hematocrit, | 30.5 (L)Comment: Testing | 34.0 - 46.0 % | EXTERNAL | | | POC | performed at [facility], [address] | | LAB | | | | [address], | | | | | | [place] [address] | | | | + + + + + + | MCV | 81.8Comment: Testing | 80.0 - 100.0 fl | EXTERNAL | | | | performed at [facility], [address] | | LAB | | | | [address], | | | | | | [place] [address] | | | | + + + + + + | MCH | 28.4Comment: Testing | 27.0 - 34.0 pg | EXTERNAL | | | | performed at [facility], [address] | | LAB | | | | [address], | | | | | | [place] [address] | | | | + + + + + + | MCHC | 34.7Comment: Testing | 32.0 - 35.5 | EXTERNAL | | | | performed at [facility], [address] | g/dL | LAB | | | | [address], | | | | | | [place] [address] | | | | + + + + + + | RDW-CV | 41.1Comment: Testing | 37 - 53 fl | EXTERNAL | | | | performed at [facility], [address] | | LAB | | | | [address], | | | | | | [place] [address] | | | | + + + + + + | Platelet | 360Comment: Testing | 150 - 400 K/uL | EXTERNAL | | | Count | performed at [facility], [address] | | LAB | | | Plasma | [address], | | | | | | [place] [address] | | | | + + + + + + | MPV | 7.5Comment: Testing | fl | EXTERNAL | | | | performed at [facility], [address] | | LAB | | | | [address], | | | | | | [place] [address] | | | | + + + + + + | Differentia | AUTOMATEDComment: | | EXTERNAL | | | l Type | Testing performed at | | LAB | | | | [facility], [address] | | | | | | [place] | | | | | | [address] | | | | + + + [...] | | | | | [place] [address] | | | | + + + + + + | K | 3.6Comment: Testing | 3.5 - 4.9 | EXTERNAL | | | | performed at [facility], [address] | mmol/L | LAB | | | | [address], | | | | | | [place] [address] | | | | + + + + + + | Cl | 100Comment: Testing | 99 - 109 mmol/L | EXTERNAL | | | | performed at [facility], [address] | | LAB | | | | [address], | | | | | | [place] [address] | | | | + + + + + + | CO2 | 25Comment: Testing | 23 - 32 mmol/L | EXTERNAL | | | | performed at [facility], [address] | | LAB | | | | [address], | | | | | | [place] [address] | | | | + + + + + + | Anion Gap | 9Comment: Testing | 5 - 20 mmol/L | EXTERNAL | | | | performed at [facility], [address] | | LAB | | | | [address], | | | | | | [place] [address] | | | | + + + + + + | Glucose, | 144 (H)Comment: Testing | 65 - 99 mg/dL | EXTERNAL | | | Fasting | performed at [facility], [address] | | LAB | | | | [address], | | | | | | [place] [address] | | | | + + + + + + | BUN | 15Comment: Testing | 8 - 25 mg/dL | EXTERNAL | | | | performed at [facility], [address] | | LAB | | | | [address], | | | | | | [place] [address] | | | | + + + + + + | Creatinine | 0.39 (L)Comment: Testing | 0.50 - 1.00 | EXTERNAL | | | | performed at [facility], [address] | mg/dL | LAB | | | | [address], | | | | | | [place] [address] | | | | + + + + + + | BUN/Creatin | 38Comment: Testing | | EXTERNAL | | | ine Ratio | performed at [facility], [address] | | LAB | | | | [address], | | | | | | [place] [address] | | | | + + + + + + | Calcium | 8.0 (L)Comment: Testing | 8.5 - 10.2 | EXTERNAL | | | | performed at [facility], [address] | mg/dL | LAB | | | | [address], | | | | | | [place] [address] | | | | + + + [...] | | | | | | at [facility], [address] | | | | | | [facility], | | | | | | [place] [address] | | | | + + + [...] | | | Fingerstick | performed at [facility];[address] | | LAB | | | | [address];[place], [place] | | | | | | [address] | | | | + + + [...] EXTERNAL | | | | performed at [facility];888 | mmol/L | LAB | | | | [address];[place] | | | | | | [address] | | | | + + + [...] EXTERNAL | | | | performed at [facility];[address] | | LAB | | | | [address];[place], [place] | | | | | | [address] | | | | + + + [...] EXTERNAL | | | | performed at [facility];888 | | LAB | | | | [address];[place], [place] | | | | | | [address] | | | | + + + [...] | | | Fingerstick | performed at [facility];[address] | | LAB | | | | [address];[place] | | | | | | [address] [...] | | | Fingerstick | performed at [facility];[address] | | LAB | | | | [address];[place], [place] | | | | | | [address] | | | | + + + [...] EXTERNAL | | | | performed at [facility];888 | mmol/L | LAB | | | | [address];[place], [place] | | | | | | [address] | | | | + + + [...] EXTERNAL | | | | performed at [facility];[address] | | LAB | | | | [address];[place], [place] | | | | | | [address] | | | | + + + [...] EXTERNAL | | | | performed at [facility];[address] | | LAB | | | | [address];[place] | | | | | | [address] | | | | + + + [...] | | | Fingerstick | performed at [facility];8 | | LAB | | | | [address];[place], [place] | | | | | | [address] | | | | + + + [...] EXTERNAL | | | | performed at [facility];[address] | | LAB | | | | [address];[place] | | | | | | [address] | | | | + + + + + + | Red Blood | 3.95Comment: Testing | 3.70 - 5.10 | EXTERNAL | | | Cells | performed at [facility];888 | M/uL | LAB | | | Counted | [address];[place] | | | | | | [address] | | | | + + + + + + | Hemoglobin | 10.9 (L)Comment: Testing | 11.3 - 15.5 | EXTERNAL | | | | performed at [facility];888 | g/dL | LAB | | | | [address];[place] | | | | | | [address] | | | | + + + + + + | Hematocrit, | 32.0 (L)Comment: Testing | 34.0 - 46.0 % | EXTERNAL | | | POC | performed at [facility];[address] | | LAB | | | | [address];[place] | | | | | | [address] | | | | + + + + + + | MCV | 81.0Comment: Testing | 80.0 - 100.0 fl | EXTERNAL | | | | performed at [facility];[address] | | LAB | | | | [address];[place] | | | | | | [address] | | | | + + + + + + | MCH | 27.7Comment: Testing | 27.0 - 34.0 pg | EXTERNAL | | | | performed at [facility];[address] | | LAB | | | | [address];[place] | | | | | | [address] | | | | + + + + + + | MCHC | 34.2Comment: Testing | 32.0 - 35.5 | EXTERNAL | | | | performed at [facility];888 | g/dL | LAB | | | | [address];[place] | | | | | | [address] | | | | + + + + + + | RDW-CV | 42.9Comment: Testing | 37 - 53 fl | EXTERNAL | | | | performed at [facility];[address] | | LAB | | | | [address];[place] | | | | | | [address] | | | | + + + + + + | Platelet | 363Comment: Testing | 150 - 400 K/uL | EXTERNAL | | | Count | performed at [facility];[address] | | LAB | | | Plasma | [address];[place] | | | | | | [address] | | | | + + + + + + | MPV | 7.1Comment: Testing | fl | EXTERNAL | | | | performed at [facility];[address] | | LAB | | | | [address];[place] | | | | | | [address] | | | | + + + + + + | Differentia | AUTOMATEDComment: | | EXTERNAL | | | l Type | Testing performed at | | LAB | | | | [facility];[address];[place] [address] | | | | + + + [...] EXTERNAL | | | | performed at [facility];[address] | | LAB | | | | [address];[place], [place] | | | | | | [address] | | | | + + + [...] EXTERNAL | | | | performed at [facility];[address] | | LAB | | | | [address];[place], [place] | | | | | | [address] | | | | + + + [...] EXTERNAL | | | | performed at [facility];888 | mmol/L | LAB | | | | [address];[place] | | | | | | [address] | | | | + + + + + + | K | 3.9Comment: Testing | 3.5 - 4.9 | EXTERNAL | | | | performed at [facility];888 | mmol/L | LAB | | | | [address];[place] | | | | | | [address] | | | | + + + + + + | Cl | 106Comment: Testing | 99 - 109 mmol/L | EXTERNAL | | | | performed at [facility];[address] | | LAB | | | | [address];[place] | | | | | | [address] | | | | + + + + + + | CO2 | 26Comment: Testing | 23 - 32 mmol/L | EXTERNAL | | | | performed at [facility];[address] | | LAB | | | | [address];[place] | | | | | | [address] | | | | + + + + + + | Anion Gap | 10Comment: Testing | 5 - 20 mmol/L | EXTERNAL | | | | performed at [facility];[address] | | LAB | | | | [address];[place] | | | | | | [address] | | | | + + + + + + | Glucose, | 160 (H)Comment: Testing | 65 - 99 mg/dL | EXTERNAL | | | Fasting | performed at [facility];[address] | | LAB | | | | [address];[place] | | | | | | [address] | | | | + + + + + + | BUN | 16Comment: Testing | 8 - 25 mg/dL | EXTERNAL | | | | performed at [facility];[address] | | LAB | | | | [address];[place] | | | | | | [address] | | | | + + + + + + | Creatinine | 0.61Comment: Testing | 0.50 - 1.00 | EXTERNAL | | | | performed at [facility];888 | mg/dL | LAB | | | | [address];[place] | | | | | | [address] | | | | + + + + + + | BUN/Creatin | 26Comment: Testing | | EXTERNAL | | | ine Ratio | performed at [facility];[address] | | LAB | | | | [address];[place] | | | | | | [address] | | | | + + + + + + | Calcium | 8.1 (L)Comment: Testing | 8.5 - 10.2 | EXTERNAL | | | | performed at [facility];888 | mg/dL | LAB | | | | [address];[place] | | | | | | [address] | | | | + + + [...] | | | | | | at [facility];[address];[place] [address] | | | | + + + [...] | | | Fingerstick | performed at [facility];[address] | | LAB | | | | [address];[place] | | | | | | [address] | | | | + + + [...] | | | Fingerstick | performed at [facility];[address] | | LAB | | | | [address];[place] | | | | | | [address] | | | | + + + [...] EXTERNAL | | | | performed at [facility];888 | mmol/L | LAB | | | | [address];[place], [place] | | | | | | [address] | | | | + + + [...] | | | Fingerstick | performed at [facility];[address] | | LAB | | | | [address];[place] | | | | | | [address] | | | | + + + [...] EXTERNAL | | | | performed at [facility];888 | mmol/L | LAB | | | | [address];[place], [place] | | | | | | [address] | | | | + + + [...] EXTERNAL | | | | performed at [facility] | | LAB | | | | [address];[place] | | | | | | [address] | | | | + + + [...] EXTERNAL | | | | performed at [facility];[address] | | LAB | | | | [address];[place] | | | | | | [address] | | | | + + + [...] EXTERNAL | | | | performed at [facility];[address] | | LAB | | | | [address];[place], [place] | | | | | | [address] | | | | + + + + + + | Red Blood | 4.07Comment: Testing | 3.70 - 5.10 | EXTERNAL | | | Cells | performed at [facility];888 | M/uL | LAB | | | Counted | [address];[place] | | | | | | [address] | | | | + + + + + + | Hemoglobin | 11.1 (L)Comment: Testing | 11.3 - 15.5 | EXTERNAL | | | | performed at [facility];888 | g/dL | LAB | | | | [address];[place] | | | | | | [address] | | | | + + + + + + | Hematocrit, | 32.9 (L)Comment: Testing | 34.0 - 46.0 % | EXTERNAL | | | POC | performed at [facility];[address] | | LAB | | | | [address];[place] | | | | | | [address] | | | | + + + + + + | MCV | 80.8Comment: Testing | 80.0 - 100.0 fl | EXTERNAL | | | | performed at [facility] [place];[address] | | LAB | | | | [address];[place] | | | | | | [address] | | | | + + + + + + | MCH | 27.3Comment: Testing | 27.0 - 34.0 pg | EXTERNAL | | | | performed at [facility] [place];[address] | | LAB | | | | [address];[place] | | | | | | [address] | | | | + + + + + + | MCHC | 33.8Comment: Testing | 32.0 - 35.5 | EXTERNAL | | | | performed at [facility] [place];888 | g/dL | LAB | | | | [address];[place] | | | | | | [address] | | | | + + + + + + | RDW-CV | 41.1Comment: Testing | 37 - 53 fl | EXTERNAL | | | | performed at [facility] [place];[address] | | LAB | | | | [address];[place] | | | | | | [address] | | | | + + + + + + | Platelet | 307Comment: Testing | 150 - 400 K/uL | EXTERNAL | | | Count | performed at [facility] [place];888 | | LAB | | | Plasma | [address];[place] | | | | | | [address] | | | | + + + + + + | MPV | 7.5Comment: Testing | fl | EXTERNAL | | | | performed at [facility] [place];[address] | | LAB | | | | [address];[place] | | | | | | [address] | | | | + + + + + + | Differentia | AUTOMATEDComment: | | EXTERNAL | | | l Type | Testing performed at | | LAB | | | | [facility];[address];[place] [address] | | | | + + + [...] EXTERNAL | | | | performed at [facility] [place];[address] | | LAB | | | | [address];[place], [place] | | | | | | [address] | | | | + + + [...] LAB | | | | performed at [facility] [place];888 | | | | | | [address];[place] | | | | | | [address] | | | | + + + [...] EXTERNAL | | | | performed at [facility] [place];888 | mmol/L | LAB | | | | [address];[place] | | | | | | [address] | | | | + + + + + + | K | 3.7Comment: SLT | 3.5 - 4.9 | EXTERNAL | | | | HEMOLYSISTesting | mmol/L | LAB | | | | performed at [facility] [place];[address] | | | | | | [address];[place] | | | | | | [address] | | | | + + + + + + | Cl | 106Comment: Testing | 99 - 109 mmol/L | EXTERNAL | | | | performed at [facility] [place];[address] | | LAB | | | | [address];[place] | | | | | | [address] | | | | + + + + + + | CO2 | 26Comment: Testing | 23 - 32 mmol/L | EXTERNAL | | | | performed at [facility] [place];[address] | | LAB | | | | [address];[place] | | | | | | [address] | | | | + + + + + + | Anion Gap | 10Comment: Testing | 5 - 20 mmol/L | EXTERNAL | | | | performed at [facility] [place];[address] | | LAB | | | | [address];[place] | | | | | | [address] | | | | + + + + + + | Glucose, | 179 (H)Comment: Testing | 65 - 99 mg/dL | EXTERNAL | | | Fasting | performed at [facility] [place];[address] | | LAB | | | | [address];[place] | | | | | | [address] | | | | + + + + + + | BUN | 16Comment: Testing | 8 - 25 mg/dL | EXTERNAL | | | | performed at [facility] [place];[address] | | LAB | | | | [address];[place] | | | | | | [address] | | | | + + + + + + | Creatinine | 0.62Comment: Testing | 0.50 - 1.00 | EXTERNAL | | | | performed at [facility] [place];888 | mg/dL | LAB | | | | [address];[place] | | | | | | [address] | | | | + + + + + + | BUN/Creatin | 26Comment: Testing | | EXTERNAL | | | ine Ratio | performed at [facility];[address] | | LAB | | | | [address];[place] | | | | | | [address] | | | | + + + + + + | Calcium | 7.9 (L)Comment: Testing | 8.5 - 10.2 | EXTERNAL | | | | performed at [facility];888 | mg/dL | LAB | | | | [address];[place] | | | | | | [address] | | | | + + + [...] | | | | | | at [facility];[address] [place] [address] | | | | | | [facility];[place] [address] | | | | + + + [...] Rad Conversion - 11/20/2018 1:53 PM ISI [id number] yearsXR | | CHEST 1 VIEW05/08/2013 5:49 [...] PICC line is not well seen on toshavon y's study. The cardiac silhouette and mediastinal [...] | | | Fingerstick | performed at [facility];888 | | LAB | | | | [address];[place] | | | | | | [address] | | | | + + + [...] | | | Fingerstick | performed at [facility];888 | | LAB | | | | [address];[place] | | | | | | [address] | | | | + + + [...] | | | Fingerstick | performed at [facility];888 | | LAB | | | | [address];[place] | | | | | | [address] | | | | + + + [...] EXTERNAL | | | | performed at [facility];888 | mmol/L | LAB | | | | [facility];[place], [place] | | | | | | [address] | | | | + + + [...] | EXTERNAL LAB | | performed at [facility];[address] [place] [address];[place] [address] 027 NAP1 BI | | | 027 NAP1 BI PRESUMPTIVE NEGATIVE | | | Detection of 027 NAP1 BI strains of C. difficile is presumptive and | | | for epidemiological purposes and not intended to guide or monitor | | | treatment for C. difficile infections. Testing performed at [facility] | | | [facility];[place] [address] | | + + + + +---------+ [...] | | | Fingerstick | performed at [facility];[address] | | LAB | | | | [address];[place], [place] | | | | | | [address] | | | | + + + [...] EXTERNAL | | | | performed at [facility];888 | | LAB | | | | [address];[place] | | | | | | [address] | | | | + + + + + + | Red Blood | 4.28Comment: Testing | 3.70 - 5.10 | EXTERNAL | | | Cells | performed at [facility];888 | M/uL | LAB | | | Counted | [address];[place] | | | | | | [address] | | | | + + + + + + | Hemoglobin | 11.8Comment: Testing | 11.3 - 15.5 | EXTERNAL | | | | performed at [facility];888 | g/dL | LAB | | | | [address];[place] | | | | | | [address] | | | | + + + + + + | Hematocrit, | 35.0Comment: Testing | 34.0 - 46.0 % | EXTERNAL | | | POC | performed at [facility];[address] | | LAB | | | | [address];[place] | | | | | | [address] | | | | + + + + + + | MCV | 81.7Comment: Testing | 80.0 - 100.0 fl | EXTERNAL | | | | performed at [facility];[address] | | LAB | | | | [address];[place] | | | | | | [address] | | | | + + + + + + | MCH | 27.6Comment: Testing | 27.0 - 34.0 pg | EXTERNAL | | | | performed at [facility];[address] | | LAB | | | | [address];[place] | | | | | | [address] | | | | + + + + + + | MCHC | 33.8Comment: Testing | 32.0 - 35.5 | EXTERNAL | | | | performed at [facility];888 | g/dL | LAB | | | | [address];[place] | | | | | | [address] | | | | + + + + + + | RDW-CV | 42.4Comment: Testing | 37 - 53 fl | EXTERNAL | | | | performed at [facility];[address] | | LAB | | | | [address];[place] | | | | | | [address] | | | | + + + + + + | Platelet | 260Comment: Testing | 150 - 400 K/uL | EXTERNAL | | | Count | performed at [facility];[address] | | LAB | | | Plasma | [address];[place] | | | | | | [address] | | | | + + + + + + | MPV | 8.0Comment: Testing | fl | EXTERNAL | | | | performed at [facility];[address] | | LAB | | | | [address];[place] | | | | | | [address] | | | | + + + + + + | Differentia | AUTOMATEDComment: | | EXTERNAL | | | l Type | Testing performed at | | LAB | | | | [facility];[address];[place] [address] | | | | + + + [...] EXTERNAL | | | | performed at [facility] | | LAB | | | | [address];[place], [place] | | | | | | [address] | | | | + + + [...] EXTERNAL | | | | performed at [facility] | | LAB | | | | [address];[place] | | | | | | [address] | | | | + + + [...] EXTERNAL | | | | performed at [facility];888 | mmol/L | LAB | | | | [address];[place] | | | | | | [address] | | | | + + + + + + | K | 3.7Comment: Testing | 3.5 - 4.9 | EXTERNAL | | | | performed at [facility];888 | mmol/L | LAB | | | | [address];[place] | | | | | | [address] | | | | + + + + + + | Cl | 108Comment: Testing | 99 - 109 mmol/L | EXTERNAL | | | | performed at [facility];[address] | | LAB | | | | [address];[place] | | | | | | [address] | | | | + + + + + + | CO2 | 24Comment: Testing | 23 - 32 mmol/L | EXTERNAL | | | | performed at [facility];[address] | | LAB | | | | [address];[place] | | | | | | [address] | | | | + + + + + + | Anion Gap | 13Comment: Testing | 5 - 20 mmol/L | EXTERNAL | | | | performed at [facility];[address] | | LAB | | | | [address];[place] | | | | | | [address] | | | | + + + + + + | Glucose, | 125 (H)Comment: Testing | 65 - 99 mg/dL | EXTERNAL | | | Fasting | performed at [facility];[address] | | LAB | | | | [address];[place] | | | | | | [address] | | | | + + + + + + | BUN | 12Comment: Testing | 8 - 25 mg/dL | EXTERNAL | | | | performed at [facility];[address] | | LAB | | | | [address];[place] | | | | | | [address] | | | | + + + + + + | Creatinine | 0.76Comment: Testing | 0.50 - 1.00 | EXTERNAL | | | | performed at [facility];888 | mg/dL | LAB | | | | [address];[place] | | | | | | [address] | | | | + + + + + + | BUN/Creatin | 15Comment: Testing | | EXTERNAL | | | ine Ratio | performed at [facility];[address] | | LAB | | | | [address];[place] | | | | | | [address] | | | | + + + + + + | Calcium | 7.9 (L)Comment: Testing | 8.5 - 10.2 | EXTERNAL | | | | performed at [facility];888 | mg/dL | LAB | | | | [address];[place] | | | | | | [address] | | | | + + + [...] | | | | | | at [facility];[address];[place] [address] | | | | + + + [...] | | | Fingerstick | performed at [facility];[address] | | LAB | | | | [address];[place] | | | | | | [address] | | | | + + + [...] | | | Fingerstick | performed at [facility];[address] | | LAB | | | | [address];[place], [place] | | | | | | [address] | | | | + + + [...] | | | Fingerstick | performed at [facility];8 | | LAB | | | | [address];[place] | | | | | | [address] | | | | + + + [...] | | | Fingerstick | performed at [facility];[address] | | LAB | | | | [address];[place], [place] | | | | | | [address] | | | | + + + [...] | | | Fingerstick | performed at [facility];888 | | LAB | | | | [address];[place] | | | | | | [address] | | | | + + + [...] | | | Fingerstick | performed at [facility];[address] | | LAB | | | | [address];[place] | | | | | | [address] [...] EXTERNAL | | | | performed at [facility];888 | mmol/L | LAB | | | | [address];[place] | | | | | | [address] | | | | + + + [...] EXTERNAL | | | | performed at [facility];[address] | | LAB | | | | [address];[place] | | | | | | [address] | | | | + + + [...] | | | Fingerstick | performed at [facility];[address] | | LAB | | | | [address];[place] | | | | | | [address] | | | | + + + [...] | | | Fingerstick | performed at [facility];[address] | | LAB | | | | [address];[place] | | | | | | [address] | | | | + + + [...] | | | Fingerstick | performed at [facility];[address] | | LAB | | | | [address];[place] | | | | | | [address] | | | | + + + [...] | | | Fingerstick | performed at [facility];[address] | | LAB | | | | [address];[place], [place] | | | | | | [address] | | | | + + + [...] EXTERNAL | | | | performed at [facility], [address] | | LAB | | | | [address], | | | | | | [place] [address] | | | | + + + + + + | Red Blood | 4.48Comment: Testing | 3.70 - 5.10 | EXTERNAL | | | Cells | performed at [facility], [address] | M/uL | LAB | | | Counted | [address], | | | | | | [place] [address] | | | | + + + + + + | Hemoglobin | 11.7Comment: Testing | 11.3 - 15.5 | EXTERNAL | | | | performed at [facility], [address] | g/dL | LAB | | | | [address], | | | | | | [place] [address] | | | | + + + + + + | Hematocrit, | 36.6Comment: Testing | 34.0 - 46.0 % | EXTERNAL | | | POC | performed at [facility], [address] | | LAB | | | | [address], | | | | | | [place] [address] | | | | + + + + + + | MCV | 81.7Comment: Testing | 80.0 - 100.0 fl | EXTERNAL | | | | performed at [facility], [address] | | LAB | | | | [address], | | | | | | [place] [address] | | | | + + + + + + | MCH | 26.1 (L)Comment: Testing | 27.0 - 34.0 pg | EXTERNAL | | | | performed at [facility], [address] | | LAB | | | | [address], | | | | | | [place] [address] | | | | + + + + + + | MCHC | 32.0Comment: Testing | 32.0 - 35.5 | EXTERNAL | | | | performed at [facility], [address] | g/dL | LAB | | | | [address], | | | | | | [place] [address] | | | | + + + + + + | RDW-CV | 39.8Comment: Testing | 37 - 53 fl | EXTERNAL | | | | performed at [facility], [address] | | LAB | | | | [address], | | | | | | [place] [address] | | | | + + + + + + | Platelet | 202Comment: Testing | 150 - 400 K/uL | EXTERNAL | | | Count | performed at [facility], [address] | | LAB | | | Plasma | [address], | | | | | | [place] [address] | | | | + + + + + + | MPV | 8.3Comment: Testing | fl | EXTERNAL | | | | performed at [facility], [address] | | LAB | | | | [address], | | | | | | [place] [address] | | | | + + + + + + | Differentia | AUTOMATEDComment: | | EXTERNAL | | | l Type | Testing performed at | | LAB | | | | [facility], [address] | | | | | | [place] | | | | | | [address] | | | | + + + [...] EXTERNAL | | | | performed at [facility];8 | | LAB | | | | [address];[place] | | | | | | [address] | | | | + + + [...] EXTERNAL | | | | performed at [facility];[address] | | LAB | | | | [address];[place], [place] | | | | | | [address] | | | | + + + [...] | EXTERNAL | | | A1c | [place] Diabetes | | LAB | | | [...] | | | | | performed at [facility], [address] | | | | | [address] [facility], | | | | | | [place] [address] | | | | + + + [...] | | | | | performed at [facility], [address] | | | | | | [facility], | | | | | | [place] [address] | | | | + + + [...] EXTERNAL | | | | performed at [facility];[address] | | LAB | | | | [address] [facility];[place], [place] | | | | | | [address] | | | | + + + [...] EXTERNAL | | | | performed at [facility];888 | mmol/L | LAB | | | | [address];[place] | | | | | | [address] | | | | + + + + + + | K | 3.7Comment: Testing | 3.5 - 4.9 | EXTERNAL | | | | performed at [facility];888 | mmol/L | LAB | | | | [address];[place] | | | | | | [address] | | | | + + + + + + | Cl | 109Comment: Testing | 99 - 109 mmol/L | EXTERNAL | | | | performed at [facility];[address] | | LAB | | | | [address];[place] | | | | | | [address] | | | | + + + + + + | CO2 | 25Comment: Testing | 23 - 32 mmol/L | EXTERNAL | | | | performed at [facility];[address] | | LAB | | | | [address];[place] | | | | | | [address] | | | | + + + + + + | Anion Gap | 11Comment: Testing | 5 - 20 mmol/L | EXTERNAL | | | | performed at [facility];[address] | | LAB | | | | [address];[place] | | | | | | [address] | | | | + + + + + + | Glucose, | 97Comment: Testing | 65 - 99 mg/dL | EXTERNAL | | | Fasting | performed at [facility];[address] | | LAB | | | | [address];[place] | | | | | | [address] | | | | + + + + + + | BUN | 6 (L)Comment: Testing | 8 - 25 mg/dL | EXTERNAL | | | | performed at [facility];[address] | | LAB | | | | [address];[place] | | | | | | [address] | | | | + + + + + + | Creatinine | 0.70Comment: Testing | 0.50 - 1.00 | EXTERNAL | | | | performed at [facility];888 | mg/dL | LAB | | | | [address];[place] | | | | | | [address] | | | | + + + + + + | BUN/Creatin | 9Comment: Testing | | EXTERNAL | | | ine Ratio | performed at [facility];[address] | | LAB | | | | [address];[place] | | | | | | [address] | | | | + + + + + + | Calcium | 7.5 (L)Comment: Testing | 8.5 - 10.2 | EXTERNAL | | | | performed at [facility];888 | mg/dL | LAB | | | | [address];[place] | | | | | | [address] | | | | + + + [...] | | | | | | at [facility];[address] [place] [address] | | | | | | [facility];[place] [address] | | | | + + + [...] | | | Fingerstick | performed at [facility];[address] | | LAB | | | | [address];[place] | | | | | | [address] | | | | + + + [...] | | | Fingerstick | performed at [facility];8 | | LAB | | | | [address];[place] | | | | | | [address] | | | | + + + [...] | | | Fingerstick | performed at [facility];[address] | | LAB | | | | [address];[place], [place] | | | | | | [address] | | | | + + + [...] | | | Fingerstick | performed at [facility];[address] | | LAB | | | | [address];[place] | | | | | | [address] | | | | + + + [...] | | | Fingerstick | performed at [facility];[address] | | LAB | | | | [address];[place] | | | | | | [address] | | | | + + + [...] EXTERNAL | | | | performed at [facility];888 | mmol/L | LAB | | | | [address];[place] | | | | | | [address] | | | | + + + [...] EXTERNAL | | | | performed at [facility];[address] | | LAB | | | | [address];[place], [place] | | | | | | [address] | | | | + + + [...] EXTERNAL | | | | performed at [facility];8 | | LAB | | | | [address];[place], [place] | | | | | | [address] | | | | + + + [...] | Testing performed at | | | [facility];[address] [facility];[place] [address] CULTURE | | | NO GROWTH | | | Testing performed at [facility], [address] [facility], | | | [place] [address] REPORT STATUS | | | 05/06/2013 FINAL [...] EXTERNAL | | | | performed at [facility];[address] | | LAB | | | | [address];[place], [place] | | | | | | [address] | | | | + + + + + + | RBC, UA | 16-25Comment: Testing | 0 - 5 /hpf | EXTERNAL | | | | performed at [facility];[address] | | LAB | | | | [address];[place] | | | | | | [address] | | | | + + + + + + | Epithelial | 1-5Comment: Testing | /lpf | EXTERNAL | | | Cells | performed at [facility];[address] | | LAB | | | | [address];[place] | | | | | | [address] | | | | + + + + + + | Bacteria, | 1+ (A)Comment: Testing | | EXTERNAL | | | UA | performed at [facility];[address] | | LAB | | | | [address];[place] | | | | | | [address] | | | | + + + [...] EXTERNAL | | | | performed at [facility];[address] | | LAB | | | | [address];[place] | | | | | | [address] | | | | + + + + + + | Clarity | CLOUDYComment: Testing | | EXTERNAL | | | | performed at [facility];[address] | | LAB | | | | [address];[place] | | | | | | [address] | | | | + + + + + + | Specific | 1.015Comment: Testing | 1.001 - 1.035 | EXTERNAL | | | Matinicus, | performed at [facility];[address] | | LAB | | | Urine | [address];[place] | | | | | | [address] | | | | + + + + + + | Leukocyte | SMALL (A)Comment: | | EXTERNAL | | | Esterase, | Testing performed at | | LAB | | | Urine | [facility];[address];[place] [address] | | | | + + + + + + | Nitrite, | NEGATIVEComment: Testing | | EXTERNAL | | | Urine | performed at [facility];[address] | | LAB | | | | [address];[place] | | | | | | [address] | | | | + + + + + + | Urobilinoge | 0.2Comment: Testing | mg/dL | EXTERNAL | | | n, Urine | performed at [facility];[address] | | LAB | | | | [address];[place] | | | | | | [address] | | | | + + + + + + | Protein, | NEGATIVEComment: Testing | mg/dL | EXTERNAL | | | Urine | performed at [facility];[address] | | LAB | | | | [address];[place] | | | | | | [address] | | | | + + + + + + | pH, Urine | 6.0Comment: Testing | 4.6 - 8.0 | EXTERNAL | | | | performed at [facility];[address] | | LAB | | | | [address];[place] | | | | | | [address] | | | | + + + + + + | Blood, | LARGE (A)Comment: | | EXTERNAL | | | Urine | Testing performed at | | LAB | | | | [facility];[address];[place] [address] | | | | + + + + + + | Ketones | NEGATIVEComment: Testing | mg/dL | EXTERNAL | | | | performed at [facility];[address] | | LAB | | | | [address];[place] | | | | | | [address] | | | | + + + + + + | Bilirubin, | NEGATIVEComment: Testing | | EXTERNAL | | | Urine | performed at [facility];[address] | | LAB | | | | [address];[place] | | | | | | [address] | | | | + + + + + + | Glucose, | NEGATIVEComment: Testing | mg/dL | EXTERNAL | | | Urine | performed at [facility];[address] | | LAB | | | | [address];[place] | | | | | | [address] | | | | + + + [...] | | | Fingerstick | performed at [facility];[address] | | LAB | | | | [address];[place] | | | | | | [address] | | | | + + + [...] | | | Fingerstick | performed at [facility];[address] | | LAB | | | | [address];[place] | | | | | | [address] | | | | + + + [...] | Testing performed | | | at [facility];[address] [place] [address];[place] [address] SPECIAL REQUESTS | | | RAC | | | Testing performed at [facility];[address] [place] [address];[place] [address] | | | CULTURE NO GROWTH 6 DAYS | | | Testing performed | | | at [facility], [address] [place] [address] REPORT STATUS | | | 05/11/2013 FINAL [...] | | | Fingerstick | performed at [facility];[address] | | LAB | | | | [address];[place] | | | | | | [address] | | | | + + + [...] 1:53 PM PDT GILMA MEDEROS CHEST 1 VIEW05/05/2013 | | 2:51 PM [...] EXTERNAL | | | | performed at [facility];[address] | | LAB | | | | [address];[place] | | | | | | [address] | | | | + + + + + + | Red Blood | 4.48Comment: Testing | 3.70 - 5.10 | EXTERNAL | | | Cells | performed at [facility];[address] | M/uL | LAB | | | Counted | [address];[place] | | | | | | [address] | | | | + + + + + + | Hemoglobin | 12.4Comment: Testing | 11.3 - 15.5 | EXTERNAL | | | | performed at [facility];[address] | g/dL | LAB | | | | [address];[place] | | | | | | [address] | | | | + + + + + + | Hematocrit, | 36.1Comment: Testing | 34.0 - 46.0 % | EXTERNAL | | | POC | performed at [facility];[address] | | LAB | | | | [address];[place] | | | | | | [address] | | | | + + + + + + | MCV | 80.6Comment: Testing | 80.0 - 100.0 fl | EXTERNAL | | | | performed at [facility];[address] | | LAB | | | | [address];[place] | | | | | | [address] | | | | + + + + + + | MCH | 27.7Comment: Testing | 27.0 - 34.0 pg | EXTERNAL | | | | performed at [facility];[address] | | LAB | | | | [address];[place] | | | | | | [address] | | | | + + + + + + | MCHC | 34.3Comment: Testing | 32.0 - 35.5 | EXTERNAL | | | | performed at [facility];[address] | g/dL | LAB | | | | [address];[place] | | | | | | [address] | | | | + + + + + + | RDW-CV | 41.1Comment: Testing | 37 - 53 fl | EXTERNAL | | | | performed at [facility];[address] | | LAB | | | | [address];[place] | | | | | | [address] | | | | + + + + + + | Platelet | 211Comment: Testing | 150 - 400 K/uL | EXTERNAL | | | Count | performed at [facility];[address] | | LAB | | | Plasma | [address];[place] | | | | | | [address] | | | | + + + + + + | MPV | 8.2Comment: Testing | fl | EXTERNAL | | | | performed at [facility];[address] | | LAB | | | | [address];[place] | | | | | | [address] | | | | + + + + + + | Differentia | AUTOMATEDComment: | | EXTERNAL | | | l Type | Testing performed at | | LAB | | | | [facility];[address];[place] [address] | | | | + + + [...] EXTERNAL | | | | performed at [facility];[address] | | LAB | | | | [address];[place], [place] | | | | | | [address] | | | | + + + [...] EXTERNAL | | | | performed at [facility];[address] | | LAB | | | | [address];[place] | | | | | | [address] | | | | + + + [...] EXTERNAL | | | | performed at [facility];888 | mmol/L | LAB | | | | [address];[place] | | | | | | [address] | | | | + + + + + + | K | 3.4 (L)Comment: Testing | 3.5 - 4.9 | EXTERNAL | | | | performed at [facility];[address] | mmol/L | LAB | | | | [address];[place] | | | | | | [address] | | | | + + + + + + | Cl | 104Comment: Testing | 99 - 109 mmol/L | EXTERNAL | | | | performed at [facility];[address] | | LAB | | | | [address];[place] | | | | | | [address] | | | | + + + + + + | CO2 | 27Comment: Testing | 23 - 32 mmol/L | EXTERNAL | | | | performed at [facility];[address] | | LAB | | | | [address];[place] | | | | | | [address] | | | | + + + + + + | Anion Gap | 11Comment: Testing | 5 - 20 mmol/L | EXTERNAL | | | | performed at [facility];[address] | | LAB | | | | [address];[place] | | | | | | [address] | | | | + + + + + + | Glucose, | 188 (H)Comment: Testing | 65 - 99 mg/dL | EXTERNAL | | | Fasting | performed at [facility];[address] | | LAB | | | | [address];[place] | | | | | | [address] | | | | + + + + + + | BUN | 3 (L)Comment: Testing | 8 - 25 mg/dL | EXTERNAL | | | | performed at [facility];[address] | | LAB | | | | [address];[place] | | | | | | [address] | | | | + + + + + + | Creatinine | 0.81Comment: Testing | 0.50 - 1.00 | EXTERNAL | | | | performed at [facility];888 | mg/dL | LAB | | | | [address];[place] | | | | | | [address] | | | | + + + + + + | BUN/Creatin | 4Comment: Testing | | EXTERNAL | | | ine Ratio | performed at [facility];[address] | | LAB | | | | [address];[place] | | | | | | [address] | | | | + + + + + + | Calcium | 7.6 (L)Comment: Testing | 8.5 - 10.2 | EXTERNAL | | | | performed at [facility];888 | mg/dL | LAB | | | | [address];[place] | | | | | | [address] | | | | + + + + + + | Protein, | 6.3Comment: Testing | 6.3 - 8.2 g/dL | EXTERNAL | | | Total | performed at [facility];[address] | | LAB | | | | [address];[place] | | | | | | [address] | | | | + + + + + + | Albumin | 2.2 (L)Comment: Testing | 3.6 - 5.0 g/dL | EXTERNAL | | | | performed at [facility];[address] | | LAB | | | | [address];[place] | | | | | | [address] | | | | + + + + + + | Globulin | 4.1Comment: Testing | 1.3 - 4.9 g/dL | EXTERNAL | | | | performed at [facility];[address] | | LAB | | | | [address];[place] | | | | | | [address] | | | | + + + + + + | A/G Ratio | 0.5 (L)Comment: Testing | 1.0 - 2.4 | EXTERNAL | | | | performed at [facility];[address] | | LAB | | | | [address];[place] | | | | | | [address] | | | | + + + + + + | Bilirubin | 0.5Comment: Testing | 0.1 - 1.5 mg/dL | EXTERNAL | | | Total | performed at [facility];[address] | | LAB | | | | [address];[place] | | | | | | [address] | | | | + + + + + + | ALP, | 99Comment: Testing | 35 - 115 U/L | EXTERNAL | | | External | performed at [facility];[address] | | LAB | | | | [address];[place] | | | | | | [address] | | | | + + + + + + | AST | 134 (H)Comment: Testing | 10 - 45 U/L | EXTERNAL | | | | performed at [facility];[address] | | LAB | | | | [address];[place] | | | | | | [address] | | | | + + + + + + | ALT | 157 (H)Comment: Testing | 10 - 65 U/L | EXTERNAL | | | | performed at [facility];[address] | | LAB | | | | [address];[place] | | | | | | [address] | | | | + + + [...] | | | | | | at [facility];[address] [place] [address] | | | | | | [facility];[place] [address] | | | | + + + [...] | Testing performed | | | at [facility];[address] [place] [address];[place] [address] SPECIAL REQUESTS | | | RAC | | | Testing performed at [facility];[address] [place] [address];[place] [address] | | | CULTURE NO GROWTH 6 DAYS | | | Testing performed | | | at [facility], [address] [place] [address] REPORT STATUS | | | 05/11/2013 FINAL [...] | | | Fingerstick | performed at [facility];[address] | | LAB | | | | [address];[place] | | | | | | [address] | | | | + + + [...] EXTERNAL LAB | | Testing performed at [facility];[address] [place] [address];[place] [address] MRSA PCR | | | NEGATIVE Testing performed at | | | [facility];[address] [place] [address];[place] [address] | | + + + + +---------+ [...] | Testing performed at | | | [facility];[address] [place] [address];[place] [address] GRAM STAIN | | | GREATER THAN 10 WBCS/LPF | | | LESS THAN 10 SEC/LPF | | | NO ORGANISMS SEEN | | | Testing performed at [facility], [address] | | | [facility], [place] [address] CULTURE | | | NO GROWTH 2 DAYS | | | Testing performed at [facility], [address] [facility], | | | [place] [address] REPORT STATUS | | | 05/07/2013 FINAL [...]
--- OUTSIDE RECORDS SUMMARY | ~2019-10-06 | XMS | Encounter Summary ---
Demographics + + + | Address | [address] | | | [place] [address] | + + + | Home Phone [...] Team Providers + +------+ + | Care Wood Piler Name | Role | Phone | + [...] + + | 07/22/ | Refill | [facility] | DarrylElaine, | Medication Refill | | 2019 | | NEUROLOGY [address] | [address] | (refill) | | | | [address] | [address] | | | | | [place], [place] | [place] [address] | | | | | [address] | [phone] | | | | | [phone] | | | +--------+--------+ + + + [...] Miscellaneous Notes Telephone Encounter - Lashaun Scott [employer] Technician - 07/23/2019 11:24 AM PDTL ast visit: [...] | | | | | [place] [address] | | | | | | [phone] | | | | | | | | +--------+ + + + + documented as of this encounter Visit Diagnoses Not on filedocumented in this encounter"
[~2019-10-06 07:55] MED LIST changes: +FUROSEMIDE20 MG PO; +LACTULOSE20 GM/30 M PO; +SPIRONOLACTONE50 MG PO
[2019-10-06] MEDS ORDERED: PROMETHAZINE HC25 M1 PO (11:56)
== END 2019-10-06 12:21 | disposition home or self-care (01) ==
LOC: ED 07:55
DX: K52.9 Noninfective gastroenteritis and colitis, unspecified (principal); E72.20 Disorder of urea cycle metabolism, unspecified; E11.9 Type 2 diabetes mellitus without complications; J45.909 Unspecified asthma, uncomplicated; Z88.5 Allergy status to narcotic agent; Z79.899 Other long term (current) drug therapy; Z79.01 Long term (current) use of anticoagulants; Z79.4 Long term (current) use of insulin
CPT/HCPCS: 80053; 81001; 82140; 83690; 83735; 85025; 96361; 96374; 96375; 99284-25; J0780; J2405; J2765; J7030

== ENCOUNTER 2019-11-30 12:45 | Emergency (ER) | payer MEDICARE, OTHER ==
[~2019-11-30] VITALS: Ht 167.6 cm; Wt 143.8 kg
--- OUTSIDE RECORDS SUMMARY | ~2019-11-30 | XMS | Encounter Summary ---
Demographics + + + | Address | [address] | | | [place] [address] | + + + | Home Phone | | + + + | Preferred Language | Unknown | + + + | Marital Status | | + + + | Gnosticist Affiliation | Unknown | + + + | Race | White | + + + | Ethnic Group | Not or | + + + Author + + + | Author | [facility] | | | and [place] | + + + | Organization | [facility] | | | and [place] | + + + | Address | Unknown | + + + | Phone | Unavailable | + + + Support + + +---------+ + | Name | Relationship | Address | Phone | + + +---------+ + | Amado Araiza | ECON | Unknown | | + + +---------+ + Care Team Providers + +------+ + | Care Medical Record Administrator Name | Role | Phone | + +------+ + | Mynor Kam MD | PCP | | + +------+ + Encounter Details +--------+ + + + + | Date | Type | Department | Care Team | Description | +--------+ + + + + | 09/20/ | Virtual | [facility] | Matt, | Uncontrolled | | 2020 | Office | PULMONOLOGY [address] | Esperanza Arora, | moderate persistent | | | Visit | [address] | [address] | asthma (Primary Dx); | | | | [place], [place] | [place], | ARDS survivor; | | | | [address] | [place] [address] | Restrictive lung | | | | [phone] | [phone] | disease; Chronic | | | | | | respiratory failure | | | | | | with hypoxia (HCC); | | | | | | COOPER (obstructive | | | | | | sleep apnea); End | | | | | | stage liver disease | | | | | | (HCC) | +--------+ + + + + Social History + +-------+ +--------+------+ | Tobacco Use | Types | Packs/Day | Years | Date | | | | | Used | | + +-------+ +--------+------+ | Never Smoker | | | | | + +-------+ +--------+------+ + +---+---+---+ | Smokeless Tobacco: | | | | | Never Used | | | | + +---+---+---+ + + + | Sex Assigned at | Date Recorded | | | | + + + | Not on file | | + + + documented as of this encounter Progress Notes Esperanza Gutierrez MD - 09/21/2019 10:00 AM PDTFormatting of this note might be d ifferent from the original. This exam was initially conducted via a secure 256-bit AES encrypted bidirectional video se ssion. Service was provided [id number] with the patient via interactive videoconferencing Time Based Coding Total time (in minutes) including non [id number]-ax-[id number] time (reviewing records, documentation, etc..) 30 You have chosen to receive care through the use of telemedicine. Telemedicine enables [facility] care providers at different locations to provide safe, effective and convenient care throu gh the use of technology. As with any health care service, there are risks associated with t he use of telemedicine, including equipment failure, poor image resolution and information s ecurity issues. Do you understand the risks and benefits of telemedicine as I have explained them to you? " Yes" Have your questions regarding telemedicine been answered? "Yes" Participant is currently at home Do you consent to the use of telemedicine in your medical care today? Yes. Last question, I need to confirm where are you physically located right now? Answer: Patient confirms they are located in a state where Es[facility]anza Cleaning M D am licensed. Subjective Patient ID: Gilma Araiza is a 54 y.o. female with a history of acute respiratory failure secondary to ARDS from H1N1 influenza infection. She also has obesity, COOPER, DM, a hi story of DVT and PE (was on warfarin in he past) and asthma. He has a past seizure disorder. HPI Ms Araiza is a pleasant 47 yr old woman who has a past history of DM, asthma, frequent bro nchitis, suspected COOPER and obesity, who was admitted to [facility] from 05/05/13 to 05/14/13 for acut e respiratory failure from ARDS due to H1N1 infection. Her course was long and difficult -celestine hodge eventually underwent a tracheostomy insertion by Dr Novoa (Lina), and then she was eventua lly moved to an acute Rehab facility [place] to [place] [facility] She reports abi t she had a horrible time here. After close to a week of staying in the facility, her trache ostomy tube managed to fall out and she suffered from hypoxemia with bilateral lung atelecta sis. She was brought to [facility] where they put her trach back. She also suffered from a P NA at that time, and she was placed on antibiotics. Hospitalization: July 2017 for Influenza B; May 2019 for UGIB post EGD and biopsies. Interval History Comments: She comes in today for a routine follow up via telemedicine visit. She reports t hat she has been diagnosed with end stage disease due to ODELL and portal vein thrombosis. Celestine hodge has underwent TIPS, and also was placed on apixiban for portal vein thrombosis. She is com plaining of bloatedness and increase in her seizure activity. She is supposed to see Dr Denys meza soon. The patient reports the following: DYSPNEA: Has chronic dyspnea on minimal exertion. COUGH: Intermittent, productive of light yellow sputum normally. ACUTE EXACERBATION: None recently. EXPOSURES: Never smoker. EXERCISE: No regimented exercise. Has had trouble as well due to frequent falls and balanc e issues. She has a new walker now and plans on doing more exercise. ACTIVITIES OF DAILY LIVING: She is sedentary. Has become more and more dependent on her c are occasional caregiver for her ADLs and chores at home. CONSTITUTIONAL SYMPTOMS: Has had chronic fatigue and balance issues. Denies fevers but does have some night sweats. SINO-NASAL SYMPTOMS: None currently REFLUX or REGURGITATION: Has had dysphagia but no overt aspiration. Recent UGIB episode n ow on pantoprazole, and carafate. SLEEP: Sleeps with a CPAP and oxygen but been awoken by pain sometimes. CHEST PAINS: None ORTHOPNEA OR PND (Paroxysmal Nocturnal Dyspnea): Sleeps at a semi incline. Denies PNDs. PEDAL EDEMA: Has on and off pedal edema. OTHER SYMPTOMS: Has had significant memory issue. Inhaler regimen includes: Breo Ellipta 200-5 mcg BID, prn albuterol neb and HFA, also has hypertonic saline available if with worsening cough/congestion. Oxygen Use: Only at night at 2LPM with CPAP. None during the day but occasionally uses oxy gen during the day when she gets short of breath. PAP therapy: CPAP nightly. Will need referral back to Sleep Medicine for new CPAP machine as hers is very old. Other relevant medications: Singulair nightly. Pls see rest of ROS below. SOCIAL HISTORY She smoked for a month when she was in . She has never smoked continuously in the past. S he has lived in [place] most of her life. She now lives in [place]. She lived in [place] for two years when she was younger. She has no animals at home. She has no known exposures to c hemica/toxic fumes. No exposures to asbestos. She has no hot tubs and no swamp coolers. The following elements of the patient's history were reviewed and updated as appropriate. T hey are available elsewhere in the patient record. allergies, current medications, past fam fausto history, past medical history, past social history, past surgical history and problem li st Review of Systems Constitutional: Positive for fatigue. Negative for fever and unexpected weight change. HENT: Positive for congestion and postnasal drip. Negative for sore throat, trouble swallow ing and voice change. Respiratory: Positive for apnea, cough, shortness of breath and wheezing. Negative for chok ing and stridor. Cardiovascular: Positive for leg swelling. Negative for chest pain and palpitations. Gastrointestinal: Positive for vomiting. Negative for abdominal pain, constipation, diarrhe a and nausea. Genitourinary: Negative for difficulty urinating. Musculoskeletal: Positive for arthralgias, gait problem and joint swelling. Negative for ba ck pain, myalgias and neck pain. Skin: Negative for rash. Neurological: Positive for light-headedness. Negative for dizziness. Psychiatric/Behavioral: Positive for sleep disturbance. All other systems reviewed and are negative. Past Medical History: Diagnosis Date Asthma Bronchitis DVT (deep venous thrombosis) ([facility]) in thigh; no longer on coumadin Dvt femoral (deep venous thrombosis) ([facility]) Epilepsy ([facility]) Fibromyalgia Fibromyalgia HX OTHER MEDICAL 05/04/2013 Acute respiratory failure with hypoxia - due to influenza PNA Hypertension Influenza A (H1N1) 05/02/2013 Joint pain Morbid obesity with BMI of 45.0-49.9, adult (HCC) Osteoarthritis Ovarian mass Poorly controlled diabetes mellitus (HCC) Restrictive airway disease Shingles Sleep apnea Unspecified visual disturbance Past Surgical History: Procedure Laterality Date APPENDECTOMY BREAST SURGERY CHOLECYSTECTOMY FINGER SURGERY FINGER SURGERY FINGER TRIGGER RELEASE Right HYSTERECTOMY, TOTAL ABDOMINAL KNEE ARTHROSCOPY left knee OTHER SURGICAL HISTORY Left January 2015 trigger thumb release OTHER SURGICAL HISTORY Left May 2016 TONSILLECTOMY AND ADENOIDECTOMY TRACHEAL SURGERY 05/11/2013 Procedure: TRACHEOSTOMY; Surgeon: Fabián Novoa MD; Location: [facility] MAIN OR; Service: ENT; Laterality: N/A; move to OR table, need harmonic scalpel with focus HP, patient 320 poun ds TUBAL LIGATION Objective There were no vitals taken for this visit. Physical Exam GENERAL: obese, pleasant, cooperative, oriented, not in distress, appears tired today NEURO: awake and oriented, no focal neurologic deficits LABORATORY AND IMAGING Pulmonary Function Test: 07/29/13 04/25/14 10/28/16 FEV1 2.04 (69%) 1.71 (61%) FVC 1.82 (47%) 2.34 (63%) 1.88 (53%) FEV1/FVC 80 91 TLC 2.94 (54%) 3.39 (65%) 3.23 (63%) RV/TLC 34 DLCO 17.8 (66%) 26.25 (102%) 21.6 (89%) Interpretation: Mild to moderate restriction with normal diffusion capacity. Echocardiogram done in an outside facility on August 2014 showed a normal ejection fraction, n ormal right ventricular function, and evidence of left ventricular hypertrophy. No signific ant valvular disease. CXR reviewed done on 06/10/13 showed clearing of diffuse, bilateral alveolar infiltrates pres ent in her last hospitalization in April. RLL with circinate changes that likely represent bronchitis or even bronchiectasis. PFT done on 07/29/13, by report, showed a TLC 2.94 or 54%, FVC only 1.82 or 47%. No obstruct ion. DLCO is 17.8 or 66%. CXR in November 2013 did not show acute process. Tracheostomy in place. CT of the Chest done in September 2013 did not show any new consolidation, no evidence of ILD. T racheostomy is in place. Assessment /Plan 1. Uncontrolled moderate persistent asthma Ms Araiza is a 53 yr old woman who has chronic dyspnea and difficult to control asthma. Th is is better controlled currently, without any recent exacerbations. She has remained on Arlette o Ellipta 200-5 mcg daily and prn albuterol HFA. She has become more and more short of breath, especially now that she has been diagnosed wi th ESLD, with consequent weight gain, and edema. 2. ARDS survivor Ms Araiza is a 54 yr old woman who ARDS survivor due to H1N1 influenza infection. She had been trached in the past, and got decannulated in 2013. ARDS is an intense inflammatory con dition in the lungs that have prolonged and chronic consequences including impaired V/Q matc melvin, pulmonary scarring, muscular degeneration and cognitive decline. 3. Restrictive lung disease She has mild restriction on PFT which I think is more from her weight issues rather than an ILD or ARDS. Last imaging done did not show evidence of pulmonary parenchymal disease. 4. Chronic respiratory failure with hypoxia (HCC) She has persistent hypoxemia at night, but has not had any hypoxemia on exertion. Continue monitoring sats during the day, especially when short of breath. Continue O2 at night with C PAP. Continue to monitor saturations during the day, and was advised to wear O2 only with sats a t 88% and below. 5. COOPER (obstructive sleep apnea) She will need repeat titration study and I have advised to talk to her PCP for a referral t o the [facility]. 6. End stage liver disease (HCC) Continue close follow up with her specialist. Reminded her about hepatic encephalopathy abi t may increase in incidence in those who has had TIPS. Of note, she is not on lactulose. She also has been having increasing episodes of seizures. She will follow up with her Neuro logist soon. She has remained on Gabapentin. Thank you for allowing us to participate in this patient's care. A return visit has been re quested/scheduled in the 4-5 months for routine clinical follow up. The patient was instruct ed to call our clinic for any questions, and for any concerns regarding worsening dyspnea, c ough or change in sputum production. We will see the patient sooner than the recommended fol low up date, if with any worsening of symptoms. Esperanza Gutierrez MD Pulmonary and Critical Care Medicine [facility] [address] [place] [address] [place] [address] documente d in this encounter Plan of Treatment +--------+ + + + + | Date | Type | Specialty | Care Team | Description | +--------+ + + + + | 12/21/ Virtual | Neurology | Elaine Andrews, | | | 2019 | Office | | MD Kim STOUT | | | | Visit | | [address] | | | | | | [place] [address] | | | | | | [phone] | | | | | | | | +--------+ + + + + documented as of this encounter Visit Diagnoses + + | Diagnosis | + + | Uncontrolled moderate persistent asthma - Primary | + + | ARDS survivor Personal history of other diseases of respiratory system | + + | Restrictive lung disease Other diseases of lung, not elsewhere classified | + + | Chronic respiratory failure with hypoxia (HCC) Chronic respiratory failure | + + | COOPER (obstructive sleep apnea) Obstructive sleep apnea (adult) (pediatric) | + + | End stage liver disease (HCC) | + + documented in this encounter
--- OUTSIDE RECORDS SUMMARY | ~2019-11-30 | XMS | Encounter Summary ---
Demographics + + + | Address | [address] | | | [place] [address] | + + + | Home Phone | | + + + | Preferred Language | Unknown | + + + | Marital Status | | + + + | Uatsdin Affiliation | Unknown | + + + | Race | White | + + + | Ethnic Group | Not or | + + + Author + + + | Author | [facility] | | | and [place] | + + + | Organization | [facility] | | | and [...] Team Providers + +------+ + | Care Cop Breaker Name | Role | Phone | + +------+ + | Mynor Kam MD | PCP | | + +------+ + Reason for Visit + +--------+ + | Reason | Onset | Comments | | | Date | | + +--------+ + | Appointment | 09/16/ | | | | 2020 | | + +--------+ + Encounter Details +--------+ + + + + | Date | Type | Department | Care Team | Description | +--------+ + + + + | 09/16/ | Telephone | [facility] | Matt, | Appointment | | 2020 | | PULMONOLOGY [address] | Esperanza Arora, | | | | | [address] | [address] | | | | | [place], [place] | [address] [place], | | | | | [address] | [place] [address] | | | | | [phone] | [phone] | | | | | | | [...] this encounter Miscellaneous Notes Telephone Encounter - Tahir Biggs - 09/17/2019 8:51 AM Bry, is calling [facility] Appointment and would like a call back. Additional Call Details: Patient would like a call back in regards to getting help/informa tion about the [employer] GINA for her 09/20 Appointment. Can be reached at Home Number list in [place] If this is a symptom based call, was patient offered triage? Not Applicable If this is a symptom based call and you were unable to immediately transfer the call to a ainsley lloyd senior quality technician was caller made aware that if at any time she feels it is an emergency they sh ould call 911 or go to the nearest emergency room? not applicable documented in this encounter Plan of Treatment +--------+ + + + + | Date | Type | Specialty | Care Team | Description | +--------+ + + + + | 12/21/ | Virtual | Neurology | Elaine Andrews, | | | 2019 | Office | | MD Kim STOUT | | | | Visit | | [employer] | | | | | | [place] [address] | | | | | | [phone] | | | | | | | | +--------+ + + + + documented as of this encounter Visit Diagnoses Not on filedocumented in this encounter"
--- OUTSIDE RECORDS SUMMARY | ~2019-11-30 | XMS | Clinical Summary ---
Demographics + + + | Address | [address] | | | [place] [address] | + + + | Home Phone | | + + + | Preferred Language | Unknown | + + + | Marital Status | | + + + | Yazidi Affiliation | Unknown | + + + | Race | White | + + + | Ethnic Group | Not or | + + + Author + + + | Author | [facility] | | | and [place] | + + + | Organization | [facility] | | [...] Team Providers + +------+ + | Care Dress Shoe Inspector Name | Role | Phone | + +------+ + | Mynor Kam MD | PCP | | + +------+ + Allergies + + + + + + | Active Allergy | Reactions | Severity | Noted | Comments | | | | | Date | | + + + + + + | Tramadol | Other (See Comments) | High | 06/05/19 | Seizure | | | | | 20 | | + + + + + + Medications + + + +---------+------+------+-------+ | Medication | Sig | Dispensed | Refills | Star | End | Statu | | | | | | t | Date | s | | | | | | Date | | | + + + +---------+------+------+-------+ | DULoxetine | Take 90 mg by mouth | | 0 | 07/0 | | Activ | | (CYMBALTA) [address] | daily. | | | 3/20 | | e | | capsule | | | | 14 | | | + + + +---------+------+------+-------+ | insulin lispro | Inject 35 Units into | | 0 | 08/0 | | Activ | | (HUMALOG) 100 | the skin 2 (two) | | | 4/20 | | e | | units/mL injection | times daily as | | | 14 | | | | (vial) | needed. Sliding | | | | | | | | scale | | | | | | + + + +---------+------+------+-------+ | tiZANidine | Taking 2 tabs 2 | | 2 | / | | Activ | | (ZANAFLEX) 4 MG | times a day | | | 8/20 | | e | | capsule | | | | 17 | | | + + + +---------+------+------+-------+ | DULoxetine | Take 60 mg by mouth. | | 0 | 09/1 | | Activ | | (CYMBALTA) [address] | | | | 0/20 | | e | | capsule | | | | 17 | | | + + + +---------+------+------+-------+ | LANTUS SOLOSTAR | Inject 35 Units into | | 1 | 08/2 | | Activ | | 100 UNIT/ML | the skin 2 (two) | | | 8/20 | | e | | injection (pen) | times daily. | | | 18 | | | + + + +---------+------+------+-------+ | ergocalciferol | TK 1 C PO ONCE A | | 0 | 02/2 | | Activ | | (VITAMIN D-2) 50,000 | WEEK FOR 6 MONTHS | | | 0/20 | | e | | units capsule | | | | 19 | | | + + + +---------+------+------+-------+ | | Inhale 1 puff into | 1 each | 11 | 03/2 | | Activ | | fluticasone-vilanter | the lungs daily. | | | 2/20 | | e | | ol (BREO ELLIPTA) | | | | 19 | | | | 200-25 mcg/puff | | | | | | | | inhaler | | | | | | | + + + +---------+------+------+-------+ | doxycycline | Take 100 mg by mouth | | 0 | | | Activ | | (VIBRAMYCIN) 100 mg | 2 times daily. | | | | | e | | tablet | | | | | | | + + + +---------+------+------+-------+ | metroNIDAZOLE | Take 250 mg by mouth | | 0 | | | Activ | | (FLAGYL) 500 MG | 3 times daily. | | | | | e | | tablet | | | | | | | + + + +---------+------+------+-------+ | bismuth | Chew and swallow 524 | | 0 | | | Activ | | subsalicylate (PEPTO | mg 4 times daily | | | | | e | | BISMOL) 262 mg | (before meals and | | | | | | | chewable tablet | nightly). | | | | | | + + + +---------+------+------+-------+ | pantoprazole | Take 40 mg by mouth | | 0 | | | Activ | | (PROTONIX) 40 mg | 2 times daily | | | | | e | | tablet | (before meals). | | | | | | + + + +---------+------+------+-------+ | albuterol (PROAIR | Inhale 2 puffs into | | 0 | | | Activ | | RESPICLICK) 90 | the lungs every 6 | | | | | e | | mcg/puff inhaler | hours as needed for | | | | | | | | Shortness of Breath. | | | | | | + + + +---------+------+------+-------+ | amLODIPine | Take 5 mg by mouth | | 0 | | | Activ | | (NORVASC) 5 mg | Daily. | | | | | e | | tablet | | | | | | | + + + +---------+------+------+-------+ | hydrOXYzine | Take 25 mg by mouth | | 0 | | | Activ | | pamoate (VISTARIL) | every 8 hours as | | | | | e | | 25 mg capsule | needed for Itching. | | | | | | + + + +---------+------+------+-------+ | metoprolol | Take 100 mg by mouth | | 0 | | | Activ | | succinate | Daily. | | | | | e | | (TOPROL-XL) 100 mg | | | | | | | | ER tablet | | | | | | | + + + +---------+------+------+-------+ | lisinopril | Take 40 mg by mouth | | 0 | | | Activ | | (PRINIVIL, ZESTRIL) | Daily. | | | | | e | | 20 mg tablet | | | | | | | + + + +---------+------+------+-------+ | fluconazole | Take 100 mg by mouth | | 0 | | | Activ | | (DIFLUCAN) 100 mg | Daily. Take every | | | | | e | | tablet | day | | | | | | + + + +---------+------+------+-------+ | apixaban (ELIQUIS) | Take 5 mg by mouth 2 | | 0 | 05/0 | 11/0 | Activ | | 5 mg tablet | times daily. | | | 7/20 | 3/20 | e | | | | | | 20 | 20 | | + + + +---------+------+------+-------+ | furosemide (LASIX) | take 1 tablet by | | 0 | 06/0 | | Activ | | 20 mg tablet | mouth once daily | | | 2/20 | | e | | | | | | 20 | | | + + + +---------+------+------+-------+ | gabapentin | take 4 capsules by | 300 | 1 | 08/1 | | Activ | | (NEURONTIN) 300 mg | mouth every morning | capsule | | 2/20 | | e | | capsule | 3 capsules AT NOON | | | 20 | | | | | and 3 capsules every | | | | | | | | evening | | | | | | + + + +---------+------+------+-------+ | gabapentin | take 4 capsules by | 300 | 0 | 07/1 | 08/1 | Disco | | (NEURONTIN) 300 mg | mouth every morning | capsule | | 3/20 | 2/20 | ntinu | | capsule | 3 capsules AT NOON | | | 20 | 20 | ed | | | and 3 capsules every | | | | | | | | evening. | | | | | | + + + +---------+------+------+-------+ Active Problems + + + | Problem | Noted Date | + + + | Primary generalized epilepsy, major | 11/24/2015 | + + + | Moderate persistent asthma without complication | 10/03/2015 | + + + | Precordial pain | 05/31/2015 | + + + | Heart palpitations | 05/31/2015 | + + + | Epilepsy | 05/18/2015 | + + + | Status post tracheostomy | 03/06/2015 | + + + | Gastroesophageal reflux disease without esophagitis | 11/01/2014 | + + + | Restrictive lung disease | 01/17/2014 | + + + | Chronic respiratory failure | 10/07/2013 | + + + | Asthma | 06/15/2013 | + + + | COOPER (obstructive sleep apnea) | 06/15/2013 | + + + | ARDS survivor | 06/15/2013 | + + + | possible Secondary bacterial pneumonia | 05/07/2013 | + + + | Acute respiratory distress syndrome (ARDS) | 05/06/2013 | + + + | Abnormal LFTs (liver function tests) | 05/05/2013 | + + + | Influenza A | 05/02/2013 | + + + | Poorly controlled diabetes mellitus | | + + + | Morbid obesity with BMI of 45.0-49.9, adult | | + + + Encounters +--------+ + + + + | Date | Type | Specialty | Care Team | Description | +--------+ + + + + | 11/16/ | Refill | Neurology | Elaine Andrews, | Medication Refill | | 2019 | | | MD | | +--------+ + + + + | 10/19/ | Virtual | Neurology | Elaine Andrews, | Spells of decreased | | 2019 | Office | | MD | attentiveness | | | Visit | | | (Primary Dx); | | | | | | Dizziness and | | | | | | giddiness; Toxic | | | | | | encephalopathy | +--------+ + + + + | 10/18/ | Telephone | Neurology | Elaine Andrews, | Appointment | | 2019 | | | MD | | +--------+ + + + + | 10/15/ | Refill | Neurology | Elaine Andrews, | Medication Refill | | 2019 | | | MD | | +--------+ + + + + | 10/04/ | Telephone | Neurology | Elaine Andrews, | Appointment | | 2020 | | | MD | (schedule) | +--------+ + + + + | 09/20/ | Virtual | Pulmonology | Matt, | Uncontrolled | 2019 | Office | | Esperanza Arora, | moderate persistent | | | Visit | | MD | asthma (Primary Dx); | | | | | | ARDS survivor; | | | | | | [...] (HCC) | +--------+ + + + + | 09/16/ | Telephone | Pulmonology | Matt | Appointment | 2019 | | | Esperanza Arora, | | | | | | MD | | +--------+ + + + + from Last 3 Months Immunizations + + + + | Name | Administration Dates | Next Due | + + + + | HEP B, 3 DOSE | 06/10/2019 | | | (ADULT) | | | + + + + | INFLUENZA PF | 06/16/2019 | | | QUAD(PED/ADOL/ADULT) | | | | ,PSKT or VIAL | | | + + + + | PNEUMOCOCCAL | 05/06/2013 | | | POLYSACCHARIDE | | | | 23-VALENT (PPSV23) | | | + + + + [...] Filed Vital Signs + + + + + | Vital Sign | Reading | Time Taken | Comments | + + + + + | Blood Pressure | 109/62 | 06/01/2019 12:53 PM | | | | | PST | | + + + + + | Pulse | 90 | 06/01/2019 12:53 PM | | | | | PST | | + + + + + | Temperature | 36.4 C (97.6 F) | 06/01/2019 10:27 AM | | | | | PST | | + + + + + | Respiratory Rate | 18 | 11/07/2016 3:49 PM | | | | | PDT | | + + + + + | Oxygen Saturation | 98% | 06/01/2019 12:53 PM | | | | | PST | | + + + + + | Inhaled Oxygen | - | - | | | Concentration | | | | + + + + + | Weight | 141.5 kg (312 lb) | 06/01/2019 12:53 PM | | | | | PST | | + + + + + | Height | 167.6 cm (5' 6") | 06/01/2019 12:53 PM | | | | | PST | | + + + + + | Body Mass Index | 50.36 | 06/01/2019 12:53 PM | | | | | PST | | + + + + + Plan of Treatment [...] D | | | | | | [place] [address] | | | | | | [phone] | | | | | | | | +--------+ + + + + + + + + + | Health Maintenance | Due Date | Last | Comments | | | | Done | | + + + + + | Med Mgmt: Vit D | | | | | | 5 | | | + + + + + | Medication | | | | | Management | 5 | | | + + + + + | Diabetic Eye Exam | | | | | | 3 | | | + + + + + | Diabetic Foot Exam | | | | | | 3 | | | + + + + + | Vaccine: | | | | | Dtap/Tdap/Td (1 - | 4 | | | | Tdap) | | | | + + + + + | Cervical Cancer | | | | | Screening (Pap) | 5 | | | + + + + + | Hemoglobin A1c | | 05/06/19 | | | Screening | 4 | 14 | | + + + + + | Med Mgmt: HBA1C | | 05/06/19 | | | | 4 | 14 | | + + + + + | Colorectal Cancer | | | | | Screening | 5 | | | | (Colonoscopy) | | | | + + + + + | Vaccine: Zoster (1 | | | | | of 2) | 5 | | | + + + + + | Adult Annual | | | | | Wellness Visit | 9 | | | + + + + + | Statin Therapy | | | | | (optimal intensity) | 9 | | | + + + + + | Med Mgmt: Cr | | 08/14/19 | | | | 0 | 19, | | | | | 06/11/19 | | | | | 14, | | | | | 05/13/19 | | | | | 14, | | | | | Addition | | | | | al | | | | | history | | | | | exists | | + + + + + | Med Mgmt: HCT | | 08/14/19 | | | | 0 | 19, | | | | | 06/11/19 | | | | | 14, | | | | | 05/13/19 | | | | | 14, | | | | | Addition | | | | | al | | | | | history | | | | | exists | | + + + + + | Med Mgmt: HGB | | 08/14/19 | | | | 0 | 19, | | | | | 06/11/19 | | | | | 14, | | | | | 05/13/19 | | | | | 14, | | | | | Addition | | | | | al | | | | | history | | | | | exists | | + + + + + | Med Mgmt: K | | 08/14/19 | | | | 0 | 19, | | | | | 06/11/19 | | | | | 14, | | | | | 05/13/19 | | | | | 14, | | | | | Addition | | | | | al | | | | | history | | | | | exists | | + + + + + | Med Mgmt: Na | | 08/14/19 | | | | 0 | 19, | | | | | 06/11/19 | | | | | 14, | | | | | 05/13/19 | | | | | 14, | | | | | Addition | | | | | al | | | | | history | | | | | exists | | + + + + + | Med Mgmt: eGFR | | 08/14/19 | | | | 0 | 19, | | | | | 06/11/19 | | | | | 14, | | | | | 05/13/19 | | | | | 14, | | | | | Addition | | | | | al | | | | | history | | | | | exists | | + + + + + | Breast Cancer | | | | | Screening | 0 | | | + + + + + | Vaccine: Influenza | | 06/16/19 | | | (#1) | 0 | 20 | | + + + + + | Vaccine: | Completed | 05/06/19 | | | Pneumococcal 19-64 | | 14 | | + + + + + | Hepatitis C | Completed | 05/14/19 | | | Screening | | 14 | | + + + + + Results Not on filefrom Last 3 Months Insurance + +--------+ +--------+ +---------+--------+ | Payer | Benefi | Subscriber | Effect | Phone | Address | Type | | | t Plan | ID | matthew | | | | | | / | | Dates | | | | | | Group | | | | | | + +--------+ +--------+ +---------+--------+ | MEDICARE | MEDICA | [id number] | 10/06/19 | [phone] | | Medica | | | RE | | 16-Pre | 5 | | re | | | PART A | | sent | | | | | | AND B | | | | | | + +--------+ +--------+ +---------+--------+ | [employer] | MODA | [id number] | 11/10/19 | [phone] | | Medica | | MEDICAID HMO | HEALTH | | 19-Pre | 1 | | id | | | MDCD | | sent | | | | | | [place]MO [place] | | | | | | + +--------+ +--------+ +---------+--------+ + +--------+ +--------+ + + | Guarantor Name | Accoun | Relation to | Date | Phone | Billing Address | | | t Type | Patient | of | | | | | | | | | | + +--------+ +--------+ + + | Gilma Araiza | Person | Self | [birth year] | | [address] | | [place] | meena/Greg | | 1966 | [phone] | [place] | | | [place] | | | [address] (Home) | [phone] | + +--------+ +--------+ + + Advance Directives + + + + + | Type | Date Recorded | Patient | Explanation | | | | 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
--- OUTSIDE RECORDS SUMMARY | ~2019-11-30 | XMS | Encounter Summary ---
Demographics + + + | Address | [address] | | | [place] [address] | + + + | Home Phone | | + + + | Preferred Language | Unknown | + + + | Marital Status | | + + + | Jewish Affiliation | Unknown | + + + | Race | White | + + + | Ethnic Group | Not or | + + + Author + + + | Author | [facility] | + + + | Organization | [facility] | + + + | Address | Unknown | + + + | Phone | Unavailable | + + + Support + + +---------+ + | Name | Relationship | Address | Phone | + + +---------+ + | Amado Araiza | ECON | Unknown | | + + +---------+ + | Juli Dodson | ECON | Unknown | Unavailable | + + +---------+ + Care Team Providers + +------+ + | Care Knifeman Name | Role | Phone | + +------+ + | Erlinda Oneal PA-C | PCP | | + +------+ + Encounter Details +--------+ + + + + | Date | Type | Department | Care Team | Description | +--------+ + + + + | 11/11/ | Outside | Neurophysiology | Dmitri, | | | 2015 | Referral | EEG at [facility] [address] | [address] | | | | Order | [address] | [place] | | | | | [facility] | [place] [address] | | | | | [place], [facility] | [phone] | | | | | [place], [place] | | | | | | [address] | | | | | | [phone] | | | +--------+ + + + [...] as of this encounter Plan of Treatment Not on filedocumented as of this encounter Procedures + +--------+ + + + | Procedure Name | Priori | Date/Time | Associated Diagnosis | Comments | | | ty | | | | + +--------+ + + + | EEG ROUTINE | Routin | 11/11/2014 | | Results for this | | | e | | | procedure are in the | | | | | | results section. | + +--------+ + + + documented in this encounter Results EEG ROUTINE (11/11/2014) + + | Specimen | + + | | + + + + + | Narrative | Performed At | + + + | Patient Name: Gilma Araiza Date of : 1965 Medical | | | Record Number: [id number] Date of Test: 11/11/2014 Place of Service: | | | [facility] Department: EEG [facility] - [phone] SLEEP DEPRIVED | | | EEG Indication: Ms. 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 EEG to evaluate for epileptiform abnormalities. | | | Medications: Albuterol, Ativan, insulin, Cymbalta, ibuprofen, MS | | | Contin, ProAir HFA, promethazine, Tessalon Perles, tramadol, Qvar | | | Methods: This study was a Routine EEG with a duration of 29 | | | minutes. The digital recording was performed with routine electrodes | | | applied according to the 10-20 electrode placement system. The record | | | included video, EKG, and EOG monitoring. EEG was reviewed | | | electronically. Automated digital spike and seizure detection | | | analysis was used, along with patient-activated alarms and nursing | | | observations. EEG Description Interictal Record: The record | | | shows a symmetric, well-modulated, posterior dominant rhythm of 9 Hz | | | that attenuates with eye opening. There are frequent shuos-onn-enag | | | discharges occurring at 2 Hz with a broad generalized field, though | | | consistently with a F3-C3-P3 lead-in. Hcyxz-zfz-ljdm discharges | | | generally have no clinical correlate. Photic stimulation results in a | | | symmetric photic driving response. At 20 Hz flash frequency, there | | | is a 5 second run of heztg-dkl-dblb discharges, initially at 2 Hz | | | with devolution, with symmetric lead-in and a generalized field but | | | maximal at C3-P3. With this particular episode, there may be | | | associated subtle myoclonus though video quality is poor. | | | Hyperventilation results in symmetric physiologic slowing and also | | | activates the record with increased epileptiform discharges. | | | Drowsiness is characterized by background attenuation and increased | | | theta and delta frequencies, but sleep architecture is not recorded. | | | EKG: The single-channel EKG recording shows a regular rhythm. | | | Interpretation: This is an abnormal awake and drowsy routine EEG. | | | Frequent rslmh-hfm-zest discharges with a generalized field (though | | | consistently with a left gsvckx-rwsawx-zxefscyg lead-in), with | | | activation during hyperventilation and photic stimulation, in the | | | context of clinical history is most consistent with a primary | | | generalized epilepsy though focal onset with rapid bilateral | | | synchrony cannot be ruled out entirely. There was one possible | | | clinical event of subtle myoclonus associated with bebvs-act-oexs | | | discharges during photic stimulation though video quality was poor. | | | Electronically signed on 11/11/2014 at 10:34 AM SCOTT CAMARILLO | | | . Suggested CPT: 45528 - EEG Routine Awake Only Suggested Dx: | | | 345.00 - Epilepsy, General, non-convuls | | + + + documented in this encounter Visit Diagnoses Not on filedocumented in this encounter"
--- OUTSIDE RECORDS SUMMARY | ~2019-11-30 | XMS | Encounter Summary ---
Demographics + + + | Address | [address] | | | [place] [address] | + + + | Home Phone | | + + + | Preferred Language | Unknown | + + + | Marital Status | | + + + | Buddhist Affiliation | Unknown | + + + | Race | White | + + + | Ethnic Group | Not or | + + + Author + + + | Author | [facility] | | | and [place] | + + + | Organization | [facility] | | [...] Team Providers + +------+ + | Care Technical Data Analyst Name | Role | Phone | [...] | | | | [place] | [phone] | | | | | [phone] | | | | | | [phone] | | | +--------+ + + + [...] | | | | Visit | | [address] | | | | | | [place] [address] | | | | | | [phone] | | | | | | | | +--------+ + + + + documented as of this encounter Visit Diagnoses Not on filedocumented in this encounter"
--- OUTSIDE RECORDS SUMMARY | ~2019-11-30 | XMS | Encounter Summary ---
Demographics + + + | Address | [address] | | | [place] [address] | + + + | Home Phone | | + + + | Preferred Language | Unknown | + + + | Marital Status | | + + + | Gnosticist Affiliation | Unknown | + + + | Race | White | + + + | Ethnic Group | Not or | + + + Author + + + | Author | [facility] | | | and [place] | + + + | Organization | [facility] | | [...] Team Providers + +------+ + | Care Laborer General Name | Role | Phone | + +------+ + PCP | Unavailable | + +------+ + Encounter Details +--------+ + + + + | Date | Type | Department | Care Team | Description | +--------+ + + + + | 01/08/ | Hospital | [facility] | Fabián Salas | | | 2010 - | Encounter | [facility] | MD [address] | | | | CENTER [address] | [address] | | | 02/04/ | | [place] | [place] [address] | | | 2010 | | [address] | [phone] | | | | | [phone] | | | +--------+ + + + [...] documented as of this encounter Progress Notes Fabián Salas MD - 01/08/2011 7:40 AM PDTCONSULTATION: 01/08/2011 IDENTIFYING STATEMENT: The patient is a 45 year old female seen today for hematology consu ltation because of recent deep venous thrombosis. HISTORY OF PRESENT ILLNESS: Mrs. Araiza had been experiencing right inguinal and femoral and right lower quadrant discomfort going back over the past several months. Over that ti me course, she had undergone ultrasound examination of the pelvis with findings of an ovari an mass lesion worrisome for possible neoplasm. She is currently scheduled for elective avitia rgery for its removal. The patient then, however, also described right femoral pain and a Doppler ultrasound of the right lower extremity disclosed a deep venous thrombosis in this region. In retrospect, some of the right leg pain may have reflected a zoster eruption abi t had developed almost concurrently with the discovery of the DVT. The patient was subsequ ently begun first on Lovenox injections and then required a high dose of oral warfarin, up to 70 mg, for control. Anticoagulation proved difficult and the patient ultimately had to be discontinued on oral Coumadin and is continuing Lovenox by itself. PAST MEDICAL HISTORY: 1. Tonsillectomy and adenoidectomy as a child. 2. Appendectomy as a child. 3. Remote episode of generalized seizures 20 years earlier. 4. Cholecystectomy in 1990. 5. Bilateral breast biopsy in 2009. 6. Medical treatment of type II diabetes mellitus in approximately 2008. 7. Hypertension in 2008. CURRENT MEDICATIONS: Metformin 2000 mg daily Lisinopril 40 mg daily Lovenox 200 mg subcutaneously, self-injected daily ALLERGIES: Penicillin causes a rash. 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 Fortino hodge is the mother of three children and the grandmother of a similar number. HABITS: ALCOHOL: No use. TOBACCO: No use. REVIEW OF SYSTEMS: CONSTITUTIONAL: Negative for night sweats, fever, or chills. EYES, EARS, NOSE, THROAT: Negative for change in special senses. CARDIOTHORACIC: Negative. RESPIRATORY: Negative. GASTROINTESTINAL: Negative. ENDOCRINE: Negative. IMMUNOLOGIC: Negative. FAMILY HISTORY: The patient's mother was diagnosed with breast cancer and ovarian cancer. A sister has breast cancer. PHYSICAL EXAMINATION: The patient has morbid obesity. Weight is 141 kg, height 163 cm, b lood pressure 188/92, heart rate 83, temperature 36.3, oximetry 94%. HEAD AND NECK: No abnormalities. LYMPHATICS: No enlargement with particular attention to inguinal or femoral regions. BREASTS: Bilateral examination notes no palpable masses or dermal abnormalities. ABDOMEN: Protuberance but no areas of tenderness with attention to right lower quadrant. EXTREMITIES: No sign of phlebitis or dependent edema. SKIN: Free of rash or other eruption. NEUROLOGIC: Normal coordination and gait. 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 We had a counseling session today reviewing an additional set of hemostatic tests to asses s for possible hypercoagulable state. We will focus on both potentially acquired and hered itary factors that may account for such. In the former, we would like to test for anti-jerri spholipid antibodies and the possibility of a lupus anticoagulant. In the latter, a test f or factor V Leyden and other inherited thrombophilias. We also discussed simply continuing Lovenox in the run up to the patient's planned gynecol ogic surgery at the end of this month. The patient will continue on 200 mg daily, which I believe will be protective for her. Postoperatively, the patient will then return to anel rice from the surgery and then to make final decision-making with regard to extended anticoagulation therapy. CC: Dr. Yair Kelly <Electronically Signed by Fabián Salas MD> 01/15/11 0733 documented in this encounter Plan of Treatment +--------+ + + + + | Date | Type | Specialty | Care Team | Description | +--------+ + + + + | 12/21/ | Virtual | Neurology | Elaine Andrews, | | | 2019 | Office | | MD Kim STOUT | | | | Visit | | [facility] | | | | | | [place] [address] | | | | | | [phone] | | | | | | | | +--------+ + + + + documented as of this encounter Procedures + +--------+ + + + | Procedure Name | Priori | Date/Time | Associated Diagnosis | Comments | | | ty | | | | + +--------+ + + + | PROTEIN C, ACTIVATED | Routin | 01/08/2011 | | Results for this | | RESISTANCE ASSAY | e | 12:47 PM | | procedure are in the | | | | PDT | | results section. | + +--------+ + + + | ANTITHROMBIN III, AG | Routin | 01/08/2011 | | Results for this | | | e | 12:47 PM | | procedure are in the | | | | PDT | | results section. | + +--------+ + + + | PHOSPHATIDYLSERINE | Routin | 01/08/2011 | | Results for this | | AB | e | 12:47 PM | | procedure are in the | | | | PDT | | results section. | + +--------+ + + + | PROTEIN S, ACTIVITY | Routin | 01/08/2011 | | Results for this | | | e | 12:47 PM | | procedure are in the | | | | PDT | | results section. | + +--------+ + + + | PROTEIN C, ACTIVITY | Routin | 01/08/2011 | | Results for this | | | e | 12:47 PM | | procedure are in the | | | | PDT | | results section. | + +--------+ + + + | LUPUS ANTICOAGULANT | Routin | 01/08/2011 | | Results for this | | PROFILE | e | 12:47 PM | | procedure are in the | | | | PDT | | results section. | + +--------+ + + + | KHADRA BRAMBILA | Routin | 01/08/2011 | | Results for this | | MUTATION | e | 12:47 PM | | procedure are in the | | | | PDT | | results section. | + +--------+ + + + | PTT | Routin | 01/08/2011 | | Results for this | | | e | 12:47 PM | | procedure are in the | | | | PDT | | results section. | + +--------+ + + + | THROMBIN TIME | Routin | 01/08/2011 | | Results for this | | | e | 12:47 PM | | procedure are in the | | | | PDT | | results section. | + +--------+ + + + | PROTIME INR | Routin | 01/08/2011 | | Results for this | | | e | 12:47 PM | | procedure are in the | | | | PDT | | results section. | + +--------+ + + + | DILUTE FARSHAD JOSHUA | Routin | 01/08/2011 | | Results for this | | VENOM | e | 12:47 PM | | procedure are in the | | | | PDT | | results section. | + +--------+ + + + | FIBRINOGEN | Routin | 01/08/2011 | | Results for this | | | e | 12:47 PM | | procedure are in the | | | | PDT | | results section. | + +--------+ + + + | ANTITHROMBIN III, | Routin | 01/08/2011 | | Results for this | | ACTIVITY | e | 12:47 PM | | procedure are in the | | | | PDT | | results section. | + +--------+ + + + | CBC WITH | Routin | 01/08/2011 | | Results for this | | DIFFERENTIAL | e | 12:47 PM | | procedure are in the | | | | PDT | | results section. | + +--------+ + + + | LACTATE | Routin | 01/08/2011 | | Results for this | | DEHYDROGENASE | e | 12:47 PM | | procedure are in the | | | | PDT | | results section. | + +--------+ + + + | COMPREHENSIVE | Routin | 01/08/2011 | | Results for this | | METABOLIC PANEL | e | 12:47 PM | | procedure are in the | | | | PDT | | results section. | + +--------+ + + + documented in this encounter Results Protein S, Activity (01/08/2011 12:47 PM PDT) + + + + + + | Component | Value | Ref Range | Performed | Pathologist | | | | | At | Signature | + + + + + + | Protein S | 109Comment: Testing | 65 - 140 % | [facility] | | | activity | Performed: [facility] | | . [facility] | | | | [facility] | | MEDICAL | | | | [place], [facility] [address], | | [place] - | | | | [place] [address] | | LABORATORY | | | | CLIA: [id number] | | | | + + + + + + + + | Specimen | + + | | + + + + + + + | Performing | Address | City/State/Zipcode | Phone Number | | Organization | | | | + + + + + | [facility] | [address] | [place] | [phone] | | [facility] | | [address] | | | - LABORATORY | | | | + + + + + | [facility] | [address] | [place] | | | [facility] | | [address], [facility] | | | - LABORATORY | | | | + + + + + Protein C, Activity (01/08/2011 12:47 PM PDT) + + + + + + | Component | Value | Ref Range | Performed | Pathologist | | | | | At | Signature | + + + + + + | Protein C | 140Comment: Testing | 70 - 145 % | [facility] | | | activity | Performed: [facility] | | [facility] | | | | [facility] | | MEDICAL | | | | Center, [address], | | CENTER - | | | | [place] [address] | | LABORATORY | | | | CLIA: [id number] | | | | + + + + + + + + | Specimen | + + | | + + + + + + + | Performing | Address | City/State/Zipcode | Phone Number | | Organization | | | | + + + + + | [facility] | [address] | [place] | [phone] | | [facility] | | [address] | | | - LABORATORY | | | | + + + + + | [facility] | [address] | [place] | | | [facility] | | [address], [facility] | | | - LABORATORY | | | | + + + + + Lupus Anticoagulant Profile (01/08/2011 12:47 PM PDT) + + + + + + | Component | Value | Ref Range | Performed | Pathologist | | | | | At | Signature | + + + + + + | Prothrombin | 12.0 | 10.9 - 14.8 sec | [facility] | | | Time | | | [facility] | | | | | | MEDICAL | | | | | | CENTER - | | | | | | LABORATORY | | + + + + + + | aPTT | 31 | 26 - 36 sec | [facility] | | | | | | [facility] | | | | | | MEDICAL | | | | | | CENTER - | | | | | | LABORATORY | | + + + + + + | THROMBIN | 17.5 | 15.6 - 20.0 sec | [facility] | | | TIME | | | [facility] | | | | | | MEDICAL | | | | | | CENTER - | | | | | | LABORATORY | | + + + + + + | dRVVT | 47.4 (H) | 31.8 - 45.7 sec | [facility] | | | | | | [facility] | | | | | | MEDICAL | | | | | | CENTER - | | | | | | LABORATORY | | + + + + + + | dRVVT, Mix | 1.0Comment: Ratios less | 0.0 - 1.2 | [facility] | | | ratio | than or equal to 1.2 are | | [facility] | | | | negative for the Lupus | | MEDICAL | | | | Inhibitor. Testing | | CENTER - | | | | Performed: [facility] | | LABORATORY | | | | [facility] | | | | | | Center, [address], | | | | | | [place] [address] | | | | | | CLIA: [id number] | | | | + + + + + + + + | Specimen | + + | | + + + + + + + | Performing | Address | City/State/Zipcode | Phone Number | | Organization | | | | + + + + + | [facility] | [address] | [place] | [phone] | | [facility] | | [address] | | | - LABORATORY | | | | + + + + + | [facility] | [address] | [place] | | | [facility] | | [address], [facility] | | | - LABORATORY | | | | + + + + + Factor V Leiden Mutation (01/08/2011 12:47 PM PDT) + + + + + + | Component | Value | Ref Range | Performed | Pathologist | | | | | At | Signature | + + + + + + | fv method | Real Time PCR | () | [facility] | | | | | | [facility] | | | | | | MEDICAL | | | | | | CENTER - | | | | | | LABORATORY | | + + + + + + | FVRESULT | Negative | () | [facility] | | | | | | [facility] | | | | | | MEDICAL | | | | | | CENTER - | | | | | | LABORATORY | | + + + + + + | FVINTERP | SEE BELOWComment: The | () | [facility] | | | | Factor V Leiden mutation | | [facility] | | | | was not detected. | | MEDICAL | | | | Patients receiving | | CENTER - | | | | genetic testing should | | LABORATORY | | | | consider genetic | | | | | | counseling. Counseling | | | | | | of potentially affected | | | | | | family members may | | | | | | also be warranted. | | | | + + + + + + | FACTOR V | SEE BELOWComment: THIS | () | [facility] | | | LEIDEN CMT | TEST IS FDA APPROVED AND | | [facility] | | | 2 | IS INTENDED FOR IN | | MEDICAL | | | | VITRO DIAGNOSTIC USE. | | CENTER - | | | | This test is performed | | LABORATORY | | | | pursuant to an | | | | | | agreement with [employer] | | | | | | [employer] | | | | | | This test was | | | | | | performed by real time | | | | | | PCR using the [employer] | | | | | | Light[employer]ycler | | | | | | Instrument. The | | | | | | product of PCR is | | | | | | detected by fluorescence | | | | | | produced when a | | | | | | specific pair of probes, | | | | | | each labeled with a | | | | | | fluorophore, binds to | | | | | | the PCR product. Testing | | | | | | Performed: [facility] | | | | | | [facility] | | | | | | [place], [address], | | | | | | [place] [address] | | | | | | [place]: [id number] | | | | + + + + + + + + | Specimen | + + | | + + + + + + + | Performing | Address | City/State/Zipcode | Phone Number | | Organization | | | | + + + + + | [facility] | [address] | [place] | [phone] | | [facility] | | [address] | | | - LABORATORY | | | | + + + + + | [facility] | [address] | [place] | | | [facility] | | [address], [facility] | | | - LABORATORY | | | | + + + + + DRVVT - Dilute Farshad Viper Venom (01/08/2011 12:47 PM PDT) + + + + + + | Component | Value | Ref Range | Performed | Pathologist | | | | | At | Signature | + + + + + + | dRVVT | 47.4 (H) | 31.8 - 45.7 sec | [facility] | | | | | | [facility] | | | | | | MEDICAL | | | | | | CENTER - | | | | | | LABORATORY | | + + + + + + | dRVVT, Mix | 1.0Comment: Negative A | 0.0 - 1.2 | [facility] | | | ratio | Lupus Inhibitor is not | | [facility] | | | | ruled out by a negative | | MEDICAL | | | | DRVVT study alone. | | CENTER - | | | | Additional tests, such | | LABORATORY | | | | as an aPTT with mixing | | | | | | studies, may be | | | | | | necessary to rule out a | | | | | | Lupus Inhibitor. | | | | | | Testing Performed: | | | | | | [facility] | | | | | | [facility], [address] | | | | | | [address] [place] [address] | | | | | | CLIA: [id number] | | | | + + + + + + + + | Specimen | + + | | + + + + + + + | Performing | Address | City/State/Zipcode | Phone Number | | Organization | | | | + + + + + | [facility] | [address] | [place] | [phone] | | [facility] | | [address] | | | - LABORATORY | | | | + + + + + | [facility] | [address] | [place] | | | [facility] | | [address] | | | - LABORATORY | | | | + + + + + Protein C, Activated Resistance Assay (01/08/2011 12:47 PM PDT) + + + + + + | Component | Value | Ref Range | Performed | Pathologist | | | | | At | Signature | + + + + + + | Activated | 2.6Comment: A ratio of | >1.9 | [facility] | | | Protein C | less than 2.0 is | | [facility] | | | Resistance | suggestive of APC | | MEDICAL | | | | Resistance. Testing | | CENTER - | | | | Performed: [facility] | | LABORATORY | | | | [facility] | | | | | | Center, [address], | | | | | | [place] [address] | | | | | | CLIA: [id number] | | | | + + + + + + + + | Specimen | + + | | + + + + + + + | Performing | Address | City/State/Zipcode | Phone Number | | Organization | | | | + + + + + | [facility] | [address] | [place] | [phone] | | [facility] | | [address] | | | - LABORATORY | | | | + + + + + | [facility] | [address] | [place] | | | [facility] | | [address] | | | - LABORATORY | | | | + + + + + Antithrombin III, Ag (01/08/2011 12:47 PM PDT) + + + + + + | Component | Value | Ref Range | Performed | Pathologist | | | | | At | Signature | + + + + + + | Antithrombi | 27Comment: Testing | 21 - 33 mg/dL | [facility] | | | n III | Performed: [facility] | | [facility] | | | Antigen | [facility] | | MEDICAL | | | | [place], [address] | | CENTER - | | | | [place] [address] | | LABORATORY | | | | CLIA: [id number] | | | | + + + + + + + + | Specimen | + + | | + + + + + + + | Performing | Address | City/State/Zipcode | Phone Number | | Organization | | | | + + + + + | [facility] | [address] | [place], [place] | [phone] | | [facility] | | [address] | | | - LABORATORY | | | | + + + + + | [facility] | [address] | [place], [place] | | | [facility] | | [address] [place] [address] | | | - LABORATORY | | | | + + + + + Thrombin Time (01/08/2011 12:47 PM PDT) + + + + + + | Component | Value | Ref Range | Performed | Pathologist | | | | | At | Signature | + + + + + + | THROMBIN | 16.8 | 15.6 - 20.0 sec | [facility] | | | TIME | | | [facility] | | | | | | MEDICAL | | | | | | CENTER - | | | | | | LABORATORY | | + + + + + + | Thrombin | 18.7Comment: Testing | 15.6 - 20.0 sec | [facility] | | | Time, | Performed: [facility] | | [facility] | | | Control | [facility] | | MEDICAL | | | | Center, [address] , | | CENTER - | | | | [place] [address] | | LABORATORY | | | | CLIA: [id number] | | | | + + + + + + + + | Specimen | + + | | + + + + + + + | Performing | Address | City/State/Zipcode | Phone Number | | Organization | | | | + + + + + | [facility] | [address] | [place], [place] | [phone] | | [facility] | | [address] | | | - LABORATORY | | | | + + + + + | [facility] | [address] | [place], [place] | | | [facility] | | [address] [place] [address] | | | - LABORATORY | | | | + + + + + Phosphatidylserine antibodies (01/08/2011 12:47 PM PDT) + + + + + + | Component | Value | Ref Range | Performed | Pathologist | | | | | At | Signature | + + + + + + | Antiphospha | 2 | <20 APS U/mL | [facility] | | | tidylserine | | | [facility] | | | IgA | | | MEDICAL | | | | | | CENTER - | | | | | | LABORATORY | | + + + + + + | Antiphospha | 1 | <11 GPS U/mL | [facility] | | | tidylserine | | | [facility] | | | IgG | | | MEDICAL | | | | | | CENTER - | | | | | | LABORATORY | | + + + + + + | Antiphospha | 13Comment: The presence | <25 MPS U/mL | [facility] | | | tidylserine | of phosphatidylserine | | [facility] | | | IgM | antibodies may be | | MEDICAL | | | | associated with | | CENTER - | | | | anti-phospholipid | | LABORATORY | | | | syndrome characterized | | | | | | by recurrent | | | | | | loss, thrombosis and | | | | | | thrombocytopenia. | | | | | | Testing Performed: | | | | | | [facility], [address], | | | | | | [place] [address] | | | | | | CLIA: [id number] | | | | + + + + + + + + | Specimen | + + | | + + + + + + + | Performing | Address | City/State/Zipcode | Phone Number | | Organization | | | | + + + + + | [facility] | [address] | [place] | [phone] | | [facility] | | [address] | | | - LABORATORY | | | | + + + + + | [facility] | [address] | [place], [place] | | | [facility] | | [address] | | | - LABORATORY | | | | + + + + + Antithrombin III, Activity (01/08/2011 12:47 PM PDT) + + + + + + | Component | Value | Ref Range | Performed | Pathologist | | | | | At | Signature | + + + + + + | ANTITHROMBI | 90Comment: Testing | 85 - 126 % | [facility] | | | N ACTIVITY | Performed: [facility] | | [facility] | | | | [facility] | | MEDICAL | | | | Center, [address], | | CENTER - | | | | [place] [address] | | LABORATORY | | | | [place]: [id number] | | | | + + + + + + + + | Specimen | + + | | + + + + + + + | Performing | Address | City/State/Zipcode | Phone Number | | Organization | | | | + + + + + | [facility] | [address] | [place] | [phone] | | [facility] | | [address] | | | - LABORATORY | | | | + + + + + | [facility] | [address] | [place], [place] | | | [facility] | | [address] | | | - LABORATORY | | | | + + + + + Protime INR (01/08/2011 12:47 PM PDT) + + + + + + | Component | Value | Ref Range | Performed | Pathologist | | | | | At | Signature | + + + + + + | Prothrombin | 12.7 | 11.3 - 13.9 | [facility] | | | Time | | seconds | [facility] | | | | | | MEDICAL | | | | | | CENTER - | | | | | | LABORATORY | | + + + + + + | INR | 1.0Comment: INR: USUAL | 0.9 - 1.1 | [facility] | | | | ORAL ANTICOAGULATION | | [facility] | | | | RANGE | | MEDICAL | | | | 2.0-3.0 | | CENTER - | | | | HIGH LEVEL ORAL | | LABORATORY | | | | ANTICOAGULATION RANGE | | | | | | 2.5-3.5 | | | | + + + + + + + + | Specimen | + + | | + + + + + + + | Performing | Address | City/State/Zipcode | Phone Number | | Organization | | | | + + + + + | [facility] | [address] | [place] | [phone] | | [facility] | | [address] | | | - LABORATORY | | | | + + + + + | [facility] | [address] | [place], [place] | | | [facility] | | [address], [facility] | | | - LABORATORY | | | | + + + + + Fibrinogen (01/08/2011 12:47 PM PDT) + +---------+ + + + | Component | Value | Ref Range | Performed | Pathologist | | | | | At | Signature | + +---------+ + + + | Fibrinogen | 608 (H) | 219 - 468 mg/dL | [facility] | | | [facility] | | | | | | MEDICAL | | | | | | CENTER - | | | | | | LABORATORY | | + +---------+ + + + + + | Specimen | + + | | + + + + + + + | Performing | Address | City/State/Zipcode | Phone Number | | Organization | | | | + + + + + | [facility] | [address] | [place], [place] | [phone] | | [facility] | | [address] | | | - LABORATORY | | | | + + + + + | [facility] | [address] | [place], [place] | | | [facility] | | [address] | | | - LABORATORY | | | | + + + + + PTT (01/08/2011 12:47 PM PDT) + + + + + + | Component | Value | Ref Range | Performed | Pathologist | | | | | At | Signature | + + + + + + | aPTT | 27.8Comment: Normal | 22.1 - 36.0 | [facility] | | | | Patient Mean Value: 29.0 | seconds | [facility] | | | | seconds | | MEDICAL | | | | | | CENTER - | | | | | | LABORATORY | | + + + + + + + + | Specimen | + + | | + + + + + + + | Performing | Address | City/State/Zipcode | Phone Number | | Organization | | | | + + + + + | [facility] | [address] | [place] | [phone] | | [facility] | | [address] | | | - LABORATORY | | | | + + + + + | [facility] | [address] | [place] | | | [facility] | | [address], [facility] | | | - LABORATORY | | | | + + + + + Comprehensive Metabolic Panel (01/08/2011 12:47 PM PDT) + + + + + + | Component | Value | Ref Range | Performed | Pathologist | | | | | At | Signature | + + + + + + | Glucose | 136 (H) | 70 - 109 mg/dL | [facility] | | | | | | [facility] | | | | | | MEDICAL | | | | | | CENTER - | | | | | | LABORATORY | | + + + + + + | Calcium | 9.0 | 8.3 - 10.5 | [facility] | | | | | mg/dL | [facility] | | [facility] | | | [facility] | | | | | | [facility] - | | | | | | LABORATORY | | + + + + + + | Alkaline | 70 | 40 - 110 IU/L | [facility] | | | Phosphatase | | | [facility] | | | | | | [facility] | | | | | | [facility] - | | | | | | LABORATORY | | + + + + + + | AST | 35 | 10 - 42 IU/L | [facility] | | | | | | [facility] | | | | | | [facility] | | | | | | [facility] - | | | | | | LABORATORY | | + + + + + + | ALT | 49 (H) | 6 - 45 IU/L | [facility] | | | | | | [facility] | | [facility] | [facility] | | | | | | [facility] - | | | | | | LABORATORY | | + + + + + + | Bilirubin | 0.4 | 0.2 - 1.0 mg/dL | [facility] | | | Total | | | [facility] - | | | | | | LABORATORY | | + + + + + + | Total | 7.3 | 6.0 - 7.8 gm/dL | [facility] | | | Protein | | | [facility] | [facility] | [facility] | | | | | | [facility] - | | | | | | LABORATORY | | + + + + + + | Albumin | 3.4 | 3.2 - 5.0 gm/dL | [facility] | | | | | | [facility] | | [facility] | | | | | | [facility] - | | | | | | LABORATORY | | + + + + + + | BUN | 9 | 7 - 18 mg/dL | [facility] | | | | | | [facility] | | | [facility] | [facility] | | | | | | [facility] - | | | | | | LABORATORY | | + + + + + + | Creatinine | 0.58 (L) | 0.60 - 1.30 | [facility] | | | | | mg/dL | [facility] | | | [facility] | | [facility] | | | | | | CENTER - | | | | | | LABORATORY | | + + + + + + | Estimated | >60Comment: For | >60 mL/min/A | [facility] | | | GFR | -Americans, | | [facility] | | | | please multiply the | | MEDICAL | | | | result by 1.210 | | CENTER - | | | | This is an estimated | | LABORATORY | | | | GFR and is based on | | | | | | a standard body | | | | | | mass and serum | | | | | | creatinine | | | | + + + + + + | BUN/Creatin | 15.5 | 12 - 20 | [facility] | | | ine Ratio | | | [facility] | | | | | | [facility] | | | | | | CENTER - | | | | | | LABORATORY | | + + + + + + | Na | 135 (L) | 136 - 149 mEq/L | [facility] | | | | | [facility] | | [facility] | | | | | | [facility] - | | | | | | LABORATORY | | + + + + + + | K | 3.7 | 3.5 - 5.1 mEq/l | [facility] | | | | | [facility] | [facility] | | | | | | [facility] - | | | | | | LABORATORY | | + + + + + + | Cl | 100 | 98 - 109 mEq/l | [facility] | | | | | [facility] | [facility] | [facility] | | | | | | [facility] - | | | | | | LABORATORY | | + + + + + + | CO2 | 30 | 24 - 31 mEq/L | [facility] | | | | | | [facility] | | [facility] | [facility] | | | | | | [facility] - | | | | | | LABORATORY | | + + + + + + | Anion Gap | 8.7 | 6.0 - 17.0 | [facility] | | | | | [facility] | | [facility] | | | | | | [facility] - | | | | | | LABORATORY | | + + + + + + + + | Specimen | + + | | + + + + + + + | Performing | Address | City/State/Zipcode | Phone Number | | Organization | | | | + + + + + | [facility] | [address] | [place], [place] | [phone] | | [facility] | | [address] | | | - LABORATORY | | | | + + + + + | [facility] | [address] | [place], [place] | | | [facility] | | [address] | | | - LABORATORY | | | | + + + + + Lactate Dehydrogenase (01/08/2011 12:47 PM PDT) + +-------+ + + + | Component | Value | Ref Range | Performed | Pathologist | | | | | At | Signature | + +-------+ + + + | LDH TOTAL | 154 | 91 - 180 IU/L | [facility] | | | | | [facility] | | [facility] | [facility] | | | | | | [facility] - | | | | | | LABORATORY | | + +-------+ + + + + + | Specimen | + + | | + + + + + + + | Performing | Address | City/State/Zipcode | Phone Number | | Organization | | | | + + + + + | [facility] | [address] | [place] | [phone] | | [facility] | | [address] | | | - LABORATORY | | | | + + + + + | [facility] | [address] | [place] | | | [facility] | | [address] | | | - LABORATORY | | | | + + + + + CBC with Differential (01/08/2011 12:47 PM PDT) + + + + + + | Component | Value | Ref Range | Performed | Pathologist | | | | | At | Signature | + + + + + + | White Blood | 7.7 | 4.0 - 11.0 K/uL | [facility] | | | Cells | | | [facility] | [facility] | | [facility] | | | | | | [facility] - | | | | | | LABORATORY | | + + + + + + | Red Blood | 4.75 | 3.70 - 5.20 | [facility] | | | Cells | | M/uL | [facility] | | | | | | MEDICAL | | | | | | CENTER - | | | | | | LABORATORY | | + + + + + + | Hemoglobin | 12.6 | 11.5 - 16.0 | [facility] | | | | | gm/dL | [facility] | | | | | | [facility] | | | | | | CENTER - | | | | | | LABORATORY | | + + + + + + | Hematocrit | 38.5 | 34.0 - 47.0 % | [facility] | | | | | | [facility] | | | | | | [facility] | | | | | | CENTER - | | | | | | LABORATORY | | + + + + + + | MCV | 81.1 (L) | 83.0 - 101.0 fL | [facility] | | | | | [facility] | | | | | [facility] | | | | | | CENTER - | | | | | | LABORATORY | | + + + + + + | MCH | 26.6 (L) | 28.0 - 35.0 pg | [facility] | | | | | | [facility] | | [facility] | | [facility] | | | | | | CENTER - | | | | | | LABORATORY | | + + + + + + | MCHC | 32.8 | 32.0 - 36.0 | [facility] | | | | | g/dL | [facility] | | | | | | [facility] | | | | | | CENTER - | | | | | | LABORATORY | | + + + + + + | RDW-CV | 15.3 (H) | <15.0 % | [facility] | | | | | | [facility] | | | | | [facility] | | | | | | CENTER - | | | | | | LABORATORY | | + + + + + + | Platelet | 285 | 140 - 440 K/uL | [facility] | | | Count | | | [facility] | | | | | | [facility] | | | | | | CENTER - | | | | | | LABORATORY | | + + + + + + | % | 61.9 | 45 - 75 % | [facility] | | | Neutrophils | | | [facility] | | | | | | [facility] | | | | | | CENTER - | | | | | | LABORATORY | | + + + + + + | % | 30.2 | 20 - 45 % | [facility] | | | Lymphocytes | | | [facility] | | | | | | [facility]ICAL | | | | | | CENTER - | | | | | | LABORATORY | | + + + + + + | % Monocytes | 6.7 | 4 - 12 % | [facility] | | | | | | [facility] | | | | | | [facility] | | | | | | CENTER - | | | | | | LABORATORY | | + + + + + + | % | 0.6 | 0 - 5 % | [facility] | | | Eosinophils | | | [facility] | | | | | | [facility]ICAL | | | | | | CENTER - | | | | | | LABORATORY | | + + + + + + | % Basophils | 0.6 | 0 - 1 % | [facility] | | | | | | [facility] | | | | | | [facility] | | | | | | CENTER - | | | | | | LABORATORY | | + + + + + + | Absolute | 4.8 | 1.5 - 6.6 K/uL | [facility] | | | Neutrophils | | | [facility] | | | | | | [facility] | | | | | | CENTER - | | | | | | LABORATORY | | + + + + + + | Absolute | 2.3 | 0.6 - 3.2 K/uL | [facility] | | | Lymphocytes | | | [facility] | | | | | | [facility] | | | | | | CENTER - | | | | | | LABORATORY | | + + + + + + | Absolute | 0.5 | 0.0 - 1.0 K/uL | [facility] | | | Monocytes | | | [facility] | | | | | | [facility] | | | | | | CENTER - | | | | | | LABORATORY | | + + + + + + | Absolute | 0.0 | 0.0 - 0.4 K/uL | [facility] | | | Eosinophils | | | [facility] | | | | | | [facility] | | | | | | CENTER - | | | | | | LABORATORY | | + + + + + + | Absolute | 0.0 | 0.0 - 0.1 K/uL | [facility] | | | Basophils | | | [facility] | | | | | | [facility] | | | | | | CENTER - | | | | | | LABORATORY | | + + + + + + + + | Specimen | + + | | + + + + + + + | Performing | Address | City/State/Zipcode | Phone Number | | Organization | | | | + + + + + | [facility] | [address] | [place] | [phone] | | [facility] | | [address] | | | - LABORATORY | | | | + + + + + | [facility] | [address] | [place] | | | [facility] | | [address] | | | - LABORATORY | | | | + + + + + documented in this encounter Visit Diagnoses Not on filedocumented in this encounter"
--- OUTSIDE RECORDS SUMMARY | ~2019-11-30 | XMS | Encounter Summary ---
Demographics + + + | Address | [address] | | | [place] [address] | + + + | Home Phone | | + + + | Preferred Language | Unknown | + + + | Marital Status | | + + + | Nondenominational Affiliation | Unknown | + + + | Race | White | + + + | Ethnic Group | Not or | + + + Author + + + | Author | [facility] | | | and [place] | + + + | Organization | [facility] | | | and [place] | + + + | Address | Unknown | + + + | Phone | Unavailable | + + + Support + + +---------+ + | Name | Relationship | Address | Phone | + + +---------+ + | Amado Aariza | ECON | Unknown | | + + +---------+ + Care Team Providers + +------+ + | Care Big Data Admin Name | Role | Phone | + +------+ + | Mynor Kam MD | PCP | | + +------+ + Encounter Details +--------+ + + + + | Date | Type | Department | Care Team | Description | +--------+ + + + + | 06/15/ | Orders Only | [facility] | Matt, | | | 2013 | | PULMONOLOGY [address] | [place] [address], | | | | | [address] | [address] | | | | | [place], [place] | [place], | | | | | [address] | [place] [address] | | | | | [phone] | | | | | | | [...] | | | | | [place] [address] | | | | | | [phone] | | | | | | | | +--------+ + + + + documented as of this encounter Visit Diagnoses Not on filedocumented in this encounter"
--- OUTSIDE RECORDS SUMMARY | ~2019-11-30 | XMS | Encounter Summary ---
Demographics + + + | Address | [address] | | | [place] [address] | + + + | Home Phone | | + + + | Preferred Language | Unknown | + + + | Marital Status | | + + + | Advent Affiliation [...] Team Providers + +------+ + | Care Cabin Crew Name | Role | Phone | + +------+ + | Mynor Kam MD | PCP | | + +------+ + Encounter Details +--------+ + + + + | Date | Type | Department | Care Team | Description | +--------+ + + + + | 10/29/ | Orders Only | [facility] | Elaine Andrews, | | | 2019 | | NEUROLOGY [address] | [address] | | | | | [address] [place] | [address] | | | | | [place], [place] | [place] [address] | | | | | [address] | [phone] | | | | | [phone] | | | +--------+ + + + [...] | | | | Visit | | [address] | | | | | | [place] [address] | | | | | | [phone] | | | | | | | | +--------+ + + + + documented as of this encounter Visit Diagnoses Not on filedocumented in this encounter"
--- OUTSIDE RECORDS SUMMARY | ~2019-11-30 | XMS | Encounter Summary ---
Demographics + + + | Address | [address] | | | [place] [address] | + + + | Home Phone | | + + + | Preferred Language | Unknown | + + + | Marital Status | | + + + | Jew Affiliation | Unknown | + + + [...] Team Providers + +------+ + | Care First Aid Officer Name | Role | Phone | [...] + + | 06/01/ | Telephone | [facility] | Tyler, | Medication Prior | | 2019 | | NEUROLOGY [address] | ROBERTA [address]aman | Authorization (Cover | | | | [address] [place] | | my meds PA- [employer] | | | | [place], [place] | | 140 mg requested by | | | | [address] | | Dr. Andrews); | | | | [phone] | | Other (Placed on | | [...] May 2019- May 2020. Reason for denial: [facility] does not cover all services and supplies. Unable to be cov ered under [facility] due to dual coverage. [facility] does not cover medication unde r patient's benefits. Please ask pharmacy to bill Medicare Part D benefits for medication. E lectronically signed by Rowena Scott CMA at 06/10/2019 8:10 AM PSTTelephone Encounter - Rowena Scott CMA - 06/01/2019 2:58 PM PSTStarted PA for Aimovig 140 SQ inject. On cover my meds. Gaston # (Gaston: [id number]) Message prompt: [facility] has not yet replied to your PA request. If [facility] has not replied to your request within 24 hours, please contact [facility] at [phone]. Will await for response. 3:0 1 PM PSTdocumented in this encounter Plan of Treatment +--------+ [...] D | | | | | | [place] [address] | | | | | | [phone] | | | | | | | | +--------+ + + + + documented as of this encounter Visit Diagnoses Not on filedocumented in this encounter"
--- OUTSIDE RECORDS SUMMARY | ~2019-11-30 | XMS | Encounter Summary ---
Demographics + + + | Address | [address] | | | [place] [address] | + + + | Home Phone | | + + + | Preferred Language | Unknown | + + + | Marital Status | | + + + | Taoism Affiliation | Unknown | + + + | Race | White | + + + | Ethnic Group | Not or | + + + Author + + + | Author | [facility] | | | and [place] | + + + | Organization | [facility] | | [...] Team Providers + +------+ + | Care Power Shovel Engineer Name | Role | Phone | + +------+ + PCP | Unavailable | + +------+ + Encounter Details +--------+ + + + + | Date | Type | Department | Care Team | Description | +--------+ + + + + | 07/19/ | Hospital | [facility] | Conversion | Pain | | 2015 | Encounter | CONVERSION DEP [address] | Transaction, | | | | | [address] | Provider Unknown | | | | | [place], [place] | [phone] | | | | | [address] | (Fax) | | | | | [phone] | | | +--------+ + + + [...] D | | | | | | [place] [address] | | | | | | [phone] | | | | | | | [...]
--- OUTSIDE RECORDS SUMMARY | ~2019-11-30 | XMS | Encounter Summary ---
Demographics + + + | Address | [address] | | | [place] [address] | + + + | Home Phone | | + + + | Preferred Language | Unknown | + + + | Marital Status | | + + + | Shinto Affiliation | Unknown | + + + | Race | White | + + + | Ethnic Group | Not or | + + + Author + + + | Author | [facility] | | | and [place] | + + + | Organization | [facility] | | [...] Team Providers + +------+ + | Care Sql Tech Name | Role | Phone | + +------+ + | Mynor Kam MD | PCP | | + +------+ + Encounter Details +--------+ + + + + | Date | Type | Department | Care Team | Description | +--------+ + + + + | 06/08/ | Orders Only | [facility] | Conversion | | | 2019 | | CONVERSION DEP [address] | Transaction, | | | | | [address] | Provider Unknown | | | | | [place] | [phone] | | | | | [address] | | | | | | [phone] | | | +--------+ + + + [...] | | | | Visit | | [address] | | | | | | [place] [address] | | | | | | [phone] | | | | | | | | +--------+ + + + + documented as of this encounter Visit Diagnoses Not on filedocumented in this encounter"
--- OUTSIDE RECORDS SUMMARY | ~2019-11-30 | XMS | Encounter Summary ---
Demographics + + + | Address | [address] | | | [place] [address] | + + + | Home Phone | | + + + | Preferred Language | Unknown | + + + | Marital Status | | + + + | Protestant Affiliation [...] Team Providers + +------+ + | Care Pump Tester Name | Role | Phone | + [...] Description | +--------+--------+ + + + | 10/15/ | Refill | [facility] | Elaine Andrews, | Medication Refill | | 2020 | | NEUROLOGY [address] | MD [address] | | | | | [address] | [address] | | | | | [place], [place] | [place] [address] | | | | | [address] | [phone] | | | | | [phone] | | | +--------+--------+ + + + [...] Telephone Encounter - Rowena Scott CMA - 10/19/2019 2:15 PM PDTCalled patient, wilian stephens her to schedule for follow up tomorrow on 10/20/2019. She did mention she wanted Dr. Allen kn ow she has experienced some dizziness when she gets out of bed for a few days already. She m entioned she has a long split at bottom of head and right side of head. It was very difficul t to understand patient. She stated she has been tripping and falling and does not know if i t is due to any medication. 2 :18 PM PDTTelephone Encounter - Rowena Scott CMA - 10/18/2019 8:18 AM PDTLast visit: 06/01/2019 Next visit: No show- 10/06/2019 Last filled: 07/23/2019 Number of refills: 2 Per last note: Gabapentin 300mg Take 4 caps morning, continue 3 caps at noon and 3 caps at night. Advised her that she had been taking excessive amounts of Gabapentin in the morning documented in thi s encounter Plan of Treatment +--------+ + + + + | Date | Type | Specialty | Care Team | Description | +--------+ + + + + | 12/21/ | Virtual | Neurology | Elaine Andrews, | | | 2019 | Office | | MD [address] | | | | Visit | | [employer] [address] | | | | | | [place] [address] | | | | | | [phone] | | | | | | | | +--------+ + + + + documented as of this encounter Visit Diagnoses Not on filedocumented in this encounter"
--- OUTSIDE RECORDS SUMMARY | ~2019-11-30 | XMS | Encounter Summary ---
Demographics + + + | Address | [address] | | | [place] [address] | + + + | Home Phone | | + + + | Preferred Language | Unknown | + + + | Marital Status | | + + + | Orthodox Affiliation | Unknown | + + + | Race | White | + + + | Ethnic Group | Not or | + + + Author + + + | Author | [facility] | | | and [place] | + + + | Organization | [facility] | | | [...] Team Providers + +------+ + | Care Heel Scourer Name | Role | Phone | + +------+ + | Mynor Kam MD | PCP | | + +------+ + Encounter Details +--------+ + + + + | Date | Type | Department | Care Team | Description | +--------+ + + + + | 06/26/ | Orders Only | [facility] | Matt, | | | 2017 | | PULMONOLOGY [address] | [address], | | | | | [address] | [address] | | | | | [place], [place] | [address] [place], | | | | | [address] | [place] [address] | | | | | [phone] | [phone] | | | | | | | [...] | | | | | [place] [address] | | | | | | [phone] | | | | | | | | +--------+ + + + + documented as of this encounter Visit Diagnoses Not on filedocumented in this encounter"
--- OUTSIDE RECORDS SUMMARY | ~2019-11-30 | XMS | Encounter Summary ---
Demographics + + + | Address | [address] | | | [place] [address] | + + + | Home Phone [...] Team Providers + +------+ + | Care Beef Tagger Name | Role | Phone | + +------+ + | Mynor Kam MD | PCP | | + +------+ + Encounter Details +--------+ + + + + | Date | Type | Department | Care Team | Description | +--------+ + + + + | 09/21/ | Orders Only | [facility] | Matt, | | | 2019 | | PULMONOLOGY [address] | [address], | | | | | [address] | [address] | | | | | [place], [place] | [address] [place], | | | | | [address] | [place] [address] | | | | | [phone] | [phone] | | | | | | | [...] | | | | | [place] [address] | | | | | | [phone] | | | | | | | | +--------+ + + + + documented as of this encounter Visit Diagnoses Not on filedocumented in this encounter"
--- OUTSIDE RECORDS SUMMARY | ~2019-11-30 | XMS | Encounter Summary ---
Demographics + + + | Address | [address] | | | [place] [address] | + + + | Home Phone [...] Team Providers + +------+ + | Care Scrap Crusher Name | Role | Phone | + +------+ + | Mynor Kam MD | PCP | | + +------+ + Encounter Details +--------+---------+ + + + | Date | Type | Department | Care Team | Description | +--------+---------+ + + + | 06/01/ | Office | [facility] | Matt, | Uncontrolled | | 2020 | Visit | PULMONOLOGY [address] | [address], | moderate persistent | | | | [address] | [address] | asthma (Primary Dx); | | | | [facility] | [place], | ARDS survivor; | | | | [address] | [place] [address] | Restrictive lung | | | | [phone] | [phone] | disease; Chronic | | | | [...] COOPER and obesity, who was admitted to [facility] from 05/05/13 to 05/14/13 for acut e respiratory failure from ARDS due to H1N1 infection. Her course was long and difficult -sh e eventually underwent a tracheostomy insertion by Dr Bright Teixeira), and then she was eventua lly moved to an acute Rehab facility [place] to [place] ([facility]). She reports abi t she had a horrible time here. After close to a week of staying in the facility, her trache ostomy tube managed to fall out and she suffered from hypoxemia with bilateral lung atelecta sis. She was brought to [facility] where they put her trach back. [...] the past. S he has lived in [place] most of her life. She now lives in [place]. She lived in [place] for two years when she was younger. [...] Date Asthma Bronchitis DVT (deep venous thrombosis) ([facility]) in thigh; no longer on coumadin Dvt femoral (deep venous thrombosis) ([facility]) Epilepsy (HCC) Fibromyalgia Fibromyalgia HX OTHER MEDICAL [...] Procedure: TRACHEOSTOMY; Surgeon: Fabián Novoa MD; Location: [facility] MAIN OR; Service: ENT; Laterality: N/A; [...] Gutierrez MD Pulmonary and Critical Care Medicine [facility] [address] [place] [address] NDAdocurandy stephens in this encounter Plan of Treatment +--------+ + + + + | Date | Type | Specialty | Care Team | Description | +--------+ + + + + | 12/21/ | Virtual | Neurology | Elaine Andrews, | | | 2019 | Office | | MD [address] | | | | Visit | | [address] | | | | | | [place] [address] | | | | | | [phone] | | | | | | | [...]
--- OUTSIDE RECORDS SUMMARY | ~2019-11-30 | XMS | Encounter Summary ---
Demographics + + + | Address | [address] | | | [place] [address] | + + + | Home Phone [...] Team Providers + +------+ + | Care Structural Test Engineer Name | Role | Phone | [...] | Transaction, | | | | | [address] | Provider Unknown | | | | | [place], [place] | [phone] | | | | | [address] | | | | | | [phone] | | | +--------+ + + + [...] D | | | | | | [place] [address] | | | | | | [phone] | | | | | | | | +--------+ + + + + documented as of this encounter Procedures + +--------+ + + + | Procedure Name | Priori | Date/Time | Associated Diagnosis | Comments | | | ty | | | | + +--------+ + + + | XR CHEST 2 VIEWS | Routin | 10/11/2013 | | Results for this | | | e | 11:17 PM | | procedure are in the | | | | PDT | | results section. | + +--------+ + + + documented in this encounter Results XR Chest 2 Vws (10/11/2013 11:17 PM PDT) + + | Specimen [...]
--- OUTSIDE RECORDS SUMMARY | ~2019-11-30 | XMS | Encounter Summary ---
Demographics + + + | Address | [address] | | | [place] [address] | + + + | Home Phone [...] Author + + + | Author | [facility] | + + + | Organization | [facility] | + + + | Address [...] Providers + +------+ + | Care Systems Integration Engineer Name | Role | Phone | [...] | | | | | [address] [place] [place], | [place], [place] | | | | | [place] [address] | [address] | | | | | [phone] | | | +--------+ + + + [...] see her in the Hepatology clinic for [facility] er evaluation and management. elephone Encounter - Ayana House RN - 08/02/2019 9:35 AM PDTLiver Transp lant Referral Nurse Review: Phase Medical Review MD: Routing to Dr. Thorne to review if patient is a candidate for liver transplant evalua tion. Pre Cryptoanalysis Teacher, if a candidate: 1. Push the CT wwo scan from [facility] 06/05/19 New Referral, Notes State: Referred by: OSCAR Ott Age: 53 years old Na MELD: 8 Serum Na: 140 Diagnosis: ODELL, s/p TIPS, Gastric varices, apixaban for thrombus. BMI: 48.42 (5'6", 300 lbs) Creatinine: 0.63 Diabetic: Yes, On Metformin: No , On Dialysis: No, Factory Engineer: Dialysis Unit: Colonoscopy done: Yes 05/2019 Other [...] 12. What is your preferred spoken language: Indonesian 13. What is your preferred written language: Indonesian 14. Are you on dialysis: No 15. [...] result in inadequate post-transplant care. IV. Reference: [facility] Liver Transplant Program Protocol Handbook, page 25-26. documented in this encounter Plan of Treatment Not on filedocumented as of this encounter Visit Diagnoses Not on filedocumented in this encounter
--- OUTSIDE RECORDS SUMMARY | ~2019-11-30 | XMS | Encounter Summary ---
Demographics + + + | Address | [address] | | | [place] [address] | + + + | Home Phone [...] Team Providers + +------+ + | Care Dj Instructor Name | Role | Phone | [...] + + | 05/06/ | Refill | [facility] | Rosa M Raman, | Medication Refill | | 2020 | | NEUROLOGY [address] | MD [address] | | | | | [address] | [address] | | | | | [place], [place] | [place] [address] | | | | | [address] | [phone] | | | | | [phone] | | | +--------+--------+ + + + [...] Miscellaneous Notes Telephone Encounter - Miranda Coulter, Bevel Operator - 05/07/2019 4:22 PM PSTGabapent in [address] [...] [address] | | | | | | [place] [address] | | | | | | [phone] | | | | | | | | +--------+ + + + + documented as of this encounter Visit Diagnoses Not on filedocumented in this encounter"
--- OUTSIDE RECORDS SUMMARY | ~2019-11-30 | XMS | Encounter Summary ---
Demographics + + + | Address | [address] | | | [place] [address] | + + + | Home Phone [...] Team Providers + +------+ + | Care Carousel Attendant Name | Role | Phone | + +------+ + PCP | Unavailable | + +------+ + Encounter Details +--------+ + + + + | Date | Type | Department | Care Team | Description | +--------+ + + + + | 10/06/ | Hospital | [facility] | Conversion | Unknown cause of | | 2015 | Encounter | CONVERSION [address] | Transaction, | injury | | | | [address] | Provider Unknown | | | | | [place] | [phone] | | | | | [address] | | | | | | [phone] | | | +--------+ + + + [...] | | | | Visit | | [address] | | | | | | [place] [address] | | | | | | [phone] | | | | | | | [...] + | Ermias Braxton Juan Ramon - 11/19/2018 7:20 PM PDT This is a non-reportable procedure | | without a radiologist report and isused for image storage only | + + documented in this encounter Visit Diagnoses + + | Diagnosis | + + | Unknown cause of injury Unspecified accident | + + documented in this encounter"
--- OUTSIDE RECORDS SUMMARY | ~2019-11-30 | XMS | Encounter Summary ---
Demographics + + + | Address | [address] | | | [place] [address] | + + + | Home Phone | | + + + | Preferred Language | Unknown | + + + | Marital Status | | + + + | Orthodoxy Affiliation | Unknown | + + + | Race | White | + + + | Ethnic Group | Not or | + + + Author + + + | Author | [facility] | | | and [place] | + + + | Organization | [facility] | | | and [...] Team Providers + +------+ + | Care C D Still Operator Name | Role | Phone | [...] + + | 02/26/ | Telephone | [facility] | DeandrezayeulaliayoniElaine, | Follow-up | | 2019 | | NEUROLOGY [address] | MD [address] | (Reschedule ) | | | | [address] | [address] | | | | | [place], [place] | [place] [address] | | | | | [address] | [phone] | | | | | [phone] | | | +--------+ + + + [...] Miscellaneous Notes Telephone Encounter - Adrian Khan, Anesthetic Assistant - 02/26/2019 9:47 AM PSTCalled bobby Gilliam back at [phone] and she wanted to reschedule pts appt [...] transfer the call to a ainsley lloyd petroleum inspector was caller made aware that if [...] | | | | Visit | | [employer] [address] | | | | | | [place] [address] | | | | | | [phone] | | | | | | | | +--------+ + + + + documented as of this encounter Visit Diagnoses Not on filedocumented in this encounter"
--- OUTSIDE RECORDS SUMMARY | ~2019-11-30 | XMS | Encounter Summary ---
Demographics + + + | Address | [address] | | | [place] [address] | + + + | Home Phone [...] Team Providers + +------+ + | Care Billing Manager Name | Role | Phone | [...] [address] | | | | | [place], [place] | [address] [place], | | | | | [address] | [place] [address] | | | | | [phone] | [phone] | | | | | | | [...] | | | | | [place] [address] | | | | | | [phone] | | | | | | | | +--------+ + + + + documented as of this encounter Visit Diagnoses Not on filedocumented in this encounter"
--- OUTSIDE RECORDS SUMMARY | ~2019-11-30 | XMS | Encounter Summary ---
Demographics + + + | Address | [address] | | | [place] [address] | + + + | Home Phone [...] Team Providers + +------+ + | Care Stock Fitter Name | Role | Phone | + +------+ + | Mynor Kam MD | PCP | | + +------+ + Reason for Visit + + + | Reason | Comments | + + + | Follow-up | headaches | + + + Evaluate & Treat (Routine) +--------+--------+ + + + + | Status | Reason | Specialty | Diagnoses / | Referred By | Referred To | | | | | Procedures | Contact | Contact | +--------+--------+ + + + + | Closed | | | Diagnoses | | Raghunath, | | | | | Other | Rupertl, | MD Elaine | | | | | pulmonary | Joseline K, | [address] | | | | | insufficienc | PA-C [address] | | | | | y, not | [address] | [address] | | | | | elsewhere | [address] | [place] | | | | | classified, | [place], | [address] | | | | | Memory loss | [place] | Phone: | | | | | | [address] | [phone] | | | | | | Phone: | Fax: | | | | | | [phone] | [phone] | | | | | | Fax: | | | | | | | [phone] | | +--------+--------+ + + + + Encounter Details +--------+---------+ + + + | Date | Type | Department | Care Team | Description | +--------+---------+ + + + | 06/01/ | Office | [facility] | Elaine Andrews, | Chronic migraine | | 2020 | Visit | NEUROLOGY [address] | [address] | (Primary Dx); | | | | [address] | [address] | Seizure disorder | | | | [place], [place] | [place] [address] | ([facility]); Driving | | | | [address] | [phone] | safety issue; Memory | | | | [phone] | | loss | +--------+---------+ + + + Social History [...] | Temperature | - | - | | + [...] + documented in this encounter Progress Notes Elaine Andrews MD - 06/01/2019 12:55 PM PSTFormatting of this note might be different f rom the original. HPI Patient's medications, allergies, past medical, surgical, social and family histories were obtained and reviewed as appropriate. Gilma is a 52 yo lady here by herself for breakthrough seizures on 08/07/18. Background She has h/o DM type 2, morbid obesity, osteoarthritis, fibromyalgia, H1N1 pneumonia 2013, A RDS, seen at [facility] following complications and being comatose. Also has h/o in tractable migraines. She reports h/o seizures as a child - age 9 - grandmal seizures - seen at [facility] on phenobarbital for 7 years[address] by Dr De Jesus at [facility] at age 15. Did not dejuan nue medications. She had one grandmal after of her first daughter - 31 years ago. Was tired after a [place] bus drive from [place] to [place]. She has another perioperative seizure a few years ago (after cholecystectomy). She reports 2 grandmal unwitnessed seizures in 2015 - at home - fell and loss consciousness - cracked a glass door. Then went to bed and lost consciousness. Not sure how long she was out. No urinary incontinence. Had a sleep deprived EEG- 11/11/14 - done at [facility] at [place] and read by Linh Fernandez ([facility]). "Abnormal awake and drowsy EEG - frequent spike and wave discharges with a generalized fiel d though consistently with a left plagbf-vjwbvs-tcrjukwl lead-in, with activation during hyp erventilation and [...] poor" Has had MRI brain done at [facility] in June 2015 - uploaded in [facility] including report. Normal structure. She complains of short-term memory loss since she was hospitalized at [facility] in 2013. F eels it has worsened. [...] Botox injection cycles on 02/10/18 and 05/22/18 but discontinu ed as they were not beneficial. Here for follow up with a friend. Last visit was in 08/2018. She missed a 3 month follow up States that her headaches are worse. She was not sure who tried to apply for Aimovig preaut h but insurance denied it. She c/o headaches atleast 3 times a week lasting several hours. She c/o photophobia and jerri nophobia and has to go lie down. She is not allowed to take analgesics due to GI bleed. She also c/o nausea but not clear if due to latter issue. Has received several blood transfusions due to anemia. C/o few small seizures since last visit. Unfortunately her is not here and she has not kept a seizure log. She also recalls 2 bigger seizures - one a few months ago - was leslye e, had taken a shower and went to the kitchen. [place] her whole body shake and she fell to the ground. Does not recall having LOC but could not get back up. Legs kept shaking and she lay there for 2-3 hours before she was able to get back up. Another one was a week ago in the shower. Could not get back up. She states she was not sacha re of what happened. EMS took her to [facility]. She c/o feeling unclear in her head. C/o muscle twitching. Thinks it ma be due to tizanidin e which she has been taking for years. Current Outpatient Medications: albuterol (PROAIR RESPICLICK) 90 mcg/puff inhaler, Inhale 2 puffs into the lungs every 6 hours as needed for Shortness of Breath., Disp: , Rfl: albuterol 2.5 mg/3 mL nebulizer solution, Take 3 mLs by nebulization every 6 (six) kylah rs as needed for Wheezing., Disp: 336 mL, Rfl: 11 amLODIPine (NORVASC) 5 mg tablet, Take 5 mg by mouth Daily., Disp: , Rfl: bismuth subsalicylate (PEPTO BISMOL) [...] 6 MONTHS (Patient not taking: Reported on 06/01/2019), Disp: , Rfl: 0 fluticasone-vilanterol (BREO ELLIPTA) 200-25 mcg/puff inhaler, Inhale 1 puff into the lungs daily., Disp: 1 each, Rfl: 11 gabapentin (NEURONTIN) 300 mg capsule, TAKE 4 CAPSULES BY MOUTH EVERY MORNING THEN SULEMA E 3 CAPSULES EVERY NOON THEN 3 CAPSULES EVERY EVENING, Disp: 300 capsule, Rfl: 0 hydrOXYzine pamoate [...] Rfl: metroNIDAZOLE (FLAGYL) 500 MG tablet, Take 500 mg by mouth 3 times daily., Disp: , Rfl : pantoprazole (PROTONIX) 40 mg tablet, Take 40 mg by mouth 2 times daily (before meals) ., Disp: , Rfl: sucralfate (CARAFATE) 1 g tablet, Take 1 g by mouth 2 times daily., Disp: , Rfl: tiZANidine (ZANAFLEX) 4 MG capsule, Taking 2 tabs 2 times a day, Disp: , Rfl: 2 ROS All other systems reviewed and negative except as mentioned in HPI Objective: Physical Exam BP 109/62 | Pulse 90 | Ht 1.676 m (5' 6") | Wt (!) 141.5 kg (312 lb) | SpO2 98% | BMI 50.36 kg/m Middle aged lady, neatly groomed, moderately obese. Focused neurological exam Alert, oriented, fluent speech. PERRL. EOMI. No nystagmus. Face symmetric. No pronator drift. No myoclonus. No dysmetria on FNF Walking deferred due to using a w/c RS -b/l breath sounds clear CV - S1S2 heard. No murmurs Plan Assessment and Plan: IMPRESSION Primary idiopathic epilepsy with myoclonic jerks - breakthrough seizures in July 2018 due to running out of Gabapentin. More breakthrough seizures on 08/07/18 - no clear etiology - per haps stress and tiredness. Few seizures in the last 7 to 8 months. Possible spells of shaking secondary to metabolic toxic encephalopathy Vertigo/migrainous dizziness and migraine aura - intensifying [...] that she may be experiencing toxic encephalopathy and possible myoclonic jerks as she describes having episodes lasting 2 to 3 hours sometimes. This is l ess likely to be postictal state if she is aware of what is going on. Advised her to keep a strict seizure log and also to notify the clinic the same day or the next day if she has a seizure. We mayhave to add another seizure medication as she is maxed out on Gabapentin. We may consider Zonegran, Topamax, Tegretol Safety and legal instructions I explained to [...] she did not notice a significant improvement. However she is asking if she can go back on it because it appears to have been better than what she is currently having which is at least 3 migraines a week. Has been educated about CGRP blockers such as Aimovig or Emgality, and transcutaneous stimu lation device Cefaly. She is interested in trying Aimovig. As she does experience chronic migraine and has a limited ability to add more medications d ue to polypharmacy, she would be a good candidate for Aimovig 140 mg subcu monthly. Will re quest preauthorization for it 3. For memory Do not drive or cook on open flame due to forgetfulness. She needs supervision for cooking. Needs a caregiver for transport and medications/assistan ce paying bills. Follow up in 3 months documented in this encounter Plan of Treatment +--------+ + + + + | Date | Type | Specialty | Care Team | Description | +--------+ + + + + | 12/21/ | Virtual | Neurology | Elaine Andrews, | | | 2019 | Office | | MD Kim STOUT | | | | Visit | | [address] | | | | | | [place] [address] | | | | | | [phone] | | | | | | | | +--------+ + + + + documented as of this encounter Visit Diagnoses + + | Diagnosis | + + | Chronic migraine - Primary Chronic migraine without aura, without mention of | | intractable migraine without mention of status migrainosus | + + | Seizure disorder (HCC) Unspecified epilepsy without mention of intractable epilepsy | + + | Driving safety issue Other specified personal history presenting hazards to health | + + | Memory loss | + + documented in this encounter
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
--- OUTSIDE RECORDS SUMMARY | ~2019-11-30 | XMS | Encounter Summary ---
Demographics + + + | Address | [address] | | | [place] [address] | + + + | Home Phone [...] Providers + +------+ + | Care Business Process Associate Name | Role | Phone | [...] Provider Unknown | | | | | [place], [place] | [phone] | | | | | [address] | | | | | | [phone] | | | +--------+ + + + [...] D | | | | | | [place] [address] | | | | | | [phone] | | | | | | | [...]
--- OUTSIDE RECORDS SUMMARY | ~2019-11-30 | XMS | Encounter Summary ---
Demographics + + + | Address | [address] | | | [place] [address] | + + + | Home Phone [...] Team Providers + +------+ + | Care Brand Strategist Name | Role | Phone | + [...] | | | | [place] | [phone] | | | | | [address] | | | | | | [phone] | | | +--------+ + + + [...] | | | | Visit | | [address] | | | | | | [place] [address] | | | | | | [phone] | | | | | | | | +--------+ + + + + documented as of this encounter Visit Diagnoses Not on filedocumented in this encounter"
--- OUTSIDE RECORDS SUMMARY | ~2019-11-30 | XMS | Encounter Summary ---
Demographics + + + | Address | [address] | | | [place] [address] | + + + | Home Phone [...] + | Author | [facility] | | | and [place] | + + + | Organization | [facility] | | | and [...] + +------+ + | Care Food And Drink Factory Workers Name | Role | Phone | + [...] Provider Unknown | | | | | [place], [place] | [phone] | | | | | [address] | | | | | | [phone] | | | +--------+ + + + [...] D | | | | | | [place] [address] | | | | | | [phone] | | | | | | | [...]
--- OUTSIDE RECORDS SUMMARY | ~2019-11-30 | XMS | Encounter Summary ---
Demographics + + + | Address | [address] | | | [place] [address] | + + + | Home Phone [...] Providers + +------+ + | Care Systems Software Manager Name | Role | Phone | + +------+ + PCP | Unavailable | + +------+ + Encounter Details +--------+ + + + + | Date | Type | Department | Care Team | Description | +--------+ + + + + | 02/26/ | Hospital | [facility] | Fabián Salas | | | 2010 - | Encounter | [facility] | MD [address] | | | | | CENTER [address] | [address] | | | 03/06/ | | [place] | [place] [address] | | | 2010 | | [address] | [phone] | | | | | [phone] | | | +--------+ + + + [...] | | | | Visit | | [address] | | | | | | [place] [address] | | | | | | [phone] | | | | | | | | +--------+ + + + + documented as of this encounter Visit Diagnoses Not on filedocumented in this encounter"
--- OUTSIDE RECORDS SUMMARY | ~2019-11-30 | XMS | Encounter Summary ---
Demographics + + + | Address | [address] | | | [place] [address] | + + + | Home Phone [...] + + + | Author | [facility] | | | and [place] | + + + | Organization | [facility] | | | [...] Team Providers + +------+ + | Care Radiologic Technology Instructor Name | Role | Phone | [...] | | | | [place] | [phone] | | | | | [address] | | | | | | [phone] | | | +--------+ + + + [...] | | | | Visit | | [address] | | | | | | [place] [address] | | | | | | [phone] | | | | | | | | +--------+ + + + + documented as of this encounter Visit Diagnoses Not on filedocumented in this encounter"
--- OUTSIDE RECORDS SUMMARY | ~2019-11-30 | XMS | Encounter Summary ---
Demographics + + + | Address | [address] | | | [place] [address] | + + + | Home Phone [...] + + + | Author | [facility] | | | and [place] | + + + | Organization | [facility] | [...] Team Providers + +------+ + | Care Queen Producer Name | Role | Phone | + +------+ + | Mynor Kam MD | PCP | | + +------+ + Encounter Details +--------+ + + + + | Date | Type | Department | Care Team | Description | +--------+ + + + + | 06/11/ | Orders Only | [facility] | Matt, | | | 2016 | | PULMONOLOGY [address] | [address], | | | | | [address] | [address] | | | | | [place], [place] | [address] [place], | | | | | [address] | [place] [address] | | | | | [phone] | [phone] | | | | | | | [...] | | | | | [place] [address] | | | | | | [phone] | | | | | | | | +--------+ + + + + documented as of this encounter Visit Diagnoses Not on filedocumented in this encounter"
--- OUTSIDE RECORDS SUMMARY | ~2019-11-30 | XMS | Encounter Summary ---
Demographics + + + | Address | [address] | | | [place] [address] | + + + | Home Phone [...] Team Providers + +------+ + | Care Paramedical Aide Name | Role | Phone | + +------+ + PCP | Unavailable | + +------+ + Encounter Details +--------+ + + + + | Date | Type | Department | Care Team | Description | +--------+ + + + + | 05/05/ | Hospital | [facility] | Estefania Brannon DO | Acute respiratory | | 2013 - | Encounter | [facility] | [address] | failure (HCC); | | | | INTENSIVE CARE UNIT | [place] [address] | Abnormal LFTs (liver | | 05/14/ | | [address] | [phone] | function tests); | | 2013 | | [place], [place] | | Acute respiratory | | | | [address] | | distress syndrome | | | | [phone] | | (ARDS) (FORM[facility]LY [facility]); | | | | | | Influenza A; Morbid | | | | | | obesity with BMI of | | | | | | 45.0-49.9, adult | | | | | | ([facility]); Poorly | | | | | | controlled diabetes | | | | | | mellitus ([facility]); | | | | | | [...] Al Houston MD Service: (none) Author Type: Shipping And Receiving Supervisor Filed: 05/14/1343 Date of Service: 05/14/13832 Status: Signed Dictating Machine Transcriber: Al Houston MD (Physician) [facility] Service: Shipping And Receiving Supervisor Discharge Summary Gilma Salmon 47 y.o. Date [...] ventilation initiated on May 01, 2013 at [facility]. HOSPITAL COURSE: May 06, 2013: [...] Procedure: TRACHEOSTOMY; Surgeon: Shalonda Novoa MD; Location: [facility] MAIN OR; Service: ENT ; Laterality: N/A; move to OR table, need harmonic scalpel with focus HP, patient [address] nds Medication List As of 05/14/2013 8:33 AM Condition on Discharge: Stable, to [facility] [place] Code Status: Full Code Primary Care Physician: [...] Date of Service: 05/14/13 1322 Status: Signed Dictating Machine Transcriber: Bryanna Keenan RN (Registered Nurse) Transport here [...] Date of Service: 05/14/13 1043 Status: Signed Dictating Machine Transcriber: Bryanna Keenan RN (Registered Nurse) Report given to Maggy at [facility] in [facility] onver elaina Transaction, Provider Unknown - 05/14/2013 8:33 AM PST Case Management by MARTHA Kunz at 05/14/13 0833 Author: MARTHA Kunz Service: (none) Author Type: Converter Skimmer Filed: 05/14/13 0834 Date of Service: 05/14/13832 Status: Signed Dictating Machine Transcriber: MARTHA Kunz (Converter Skimmer) Received t[facility]c from [facility] with [facility]. AMbulance Auth # is [id number] for [facility] services. Called [facility] to verify their hand picker time (12:30) and also called pt's bharath white to verify that pt is being transferred today. onver elaina Transaction, Provider Unknown - 05/14/2013 8:31 AM PST Case Management by MARTHA Kunz at 05/14/13830 Author: MARTHA Kunz Service: (none) Author Type: Converter Skimmer Filed: 05/14/13831 Date of Service: 05/14/13830 Status: Signed Dictating Machine Transcriber: MARTHA Kunz (Converter Skimmer) Disposition: Mary Montgomery Transportation:[facility] [phone] All orders, signed AVS, and prescriptions have [...] Al Houston MD Service: (none) Author Type: Shipping And Receiving Supervisor Filed: 05/14/13840 Date of Service: 05/14/13827 Status: Addendum Dictating Machine Transcriber: Al Houston MD (Physician) Related Notes: Original Note by Al Houston MD (Physician) filed at 05/14/13832 [facility] Service: Shipping And Receiving Supervisor Progress Note Gilma Salmon 47 y.o. Hospital [...] ventilation initiated on May 01, 2013 at [facility]. ICU TIMELINE:The patient is admitted [...] Procedure: TRACHEOSTOMY; Surgeon: Shalonda Novoa MD; Location: [facility] MAIN OR; Service: ENT ; [...] original. Progress Notes by Erlinda David MS CCC-HOME BUILDER at 05/13/13 7637 Author: Erlinda David MS CCC-HOME BUILDER Service: (none) Author Type: Speech and Manufacturing Support Engineer ologist Filed: 05/13/13 1604 Date of Service: 05/13/13 1603 Status: Signed Dictating Machine Transcriber: Erlinda David MS CCC-HOME BUILDER (Speech and Language Pathologist) 05/13/13 1500 General [...] are being met at this time. Rec HOME BUILDER f/u at place of d/c. onver elaina Transaction, Provider Unknown - 05/13/2013 3:43 PM PST Case Management by MARTHA Kunz at 05/13/13 1543 Author: MARTHA Kunz Service: (none) Author Type: Converter Skimmer Filed: 05/13/13 5044 Date of Service: 05/13/13 154 Status: Signed Dictating Machine Transcriber: MARTHA Kunz (Converter Skimmer) Received t/c from [facility] with [facility] ([phone]). He is requesting a return call if f or some reason pt is not able to transfer to [facility] tomorrow. His crew plans to wrrive here between 11:30-12:00 if not called. Informed Unit COORDINATOR OF PLACEMENT and Lead RN. Al Gonzalez MD - 05/13/2013 3:43 PM PSTFormatting of this note might be different from the o riginal. Progress Notes by Al Houston MD at 05/13/13 8933 Author: Al Houston MD Service: (none) Author Type: Shipping And Receiving Supervisor Filed: 05/13/13 1555 Date of Service: 05/13/13 1543 Status: Signed Dictating Machine Transcriber: Al Houston MD (Physician) [facility] Service: Shipping And Receiving Supervisor Progress Note Gilma Salmon 47 y.o. Hospital [...] ventilation initiated on May 01, 2013 at [facility]. ICU TIMELINE:The patient is admitted [...] Procedure: TRACHEOSTOMY; Surgeon: Shalonda Novoa MD; Location: [facility] MAIN OR; Service: ENT ; [...] Date of Service: 05/13/13 1518 Status: Signed Dictating Machine Transcriber: Juanita Herman RN (Registered Nurse) Report received from HERIBERTO Bartlett and care assumed. Pt resting in bed with no complaints at t his time. JUANITA HERMAN 05/13/2013 3:19 PM onver elaina Transaction, Provider Unknown - 05/13/2013 1:35 PM PST Progress Notes by Edis Ken PT at 05/13/13 1335 Author: Edis Ken PT Service: (none) Author Type: Physical Therapist Filed: 05/13/13 0555 Date of Service: 05/13/13 1335 Status: Signed Dictating Machine Transcriber: Edis Ken PT (Physical Therapist) 05/13/13 1335 [...] therapy (Pt. to d/c to LTAC in [place] tomorrow per notes) Equipment Recommended (May need [...] therapy (Pt. to d/c to LTAC in [place] tomorrow per notes) Equipment Recommended (May need use of 4WW initially for UE support) Prior Function Level of [place] Independent with functional mobility;Independent with ADLs;Independe nt [...] Author: MARTHA Kunz Service: (none) Author Type: Converter Skimmer Filed: 05/13/13 1048 Date of Service: 05/13/131041 Status: Signed Dictating Machine Transcriber: MARTHA Kunz (Converter Skimmer) Met with pt and family to update. Pt has now made the decision to go to [facility] in [place] where her mother and sister live. Spoke with [facility] liason who states that they are working on insurance auth. They are prepared to accept pt tomorrow to the [facility]. RN-RN report # is [phone] x [phone], report # is [id number] (Dr. Alli brown) . Made arrangements with [facility] [phone] to hand picker pt at 11:30 tomorrow morning. Transfer work completed and placed on pt chart. onver elaina Transaction, Provider Unknown - 05/13/2013 9:26 AM PST Case Management by MARTHA Kunz at 05/13/13925 Author: MARTHA Kunz Service: (none) Author Type: Converter Skimmer Filed: 05/13/13 1021 Date of Service: 05/13/13925 Status: Addendum Dictating Machine Transcriber: MARTHA Kunz (Converter Skimmer) Related Notes: Original Note by MARTHA Kunz (Converter Skimmer) filed at 05/13/13948 Spoke with pt's insurance rn case management Kathleen ([phone]) and Lupe ([phone]) t o discuss LTAC transfer. I also spoke with Dara Mace from [facility] who states abi t beds are opening up. Dara will get back to me juan as to whether the beds will be avail able tomorrow or Friday. [facility]. Wa iting to hear back about from insurance as to whether they will agree to letting pt stay in [facility] until Friday if bed is not available at [facility] until Friday. Called [facility] to notify that there may be a transport Friday/Friday. Informed family of current issues r egarding bed availability and insurance auth. Received t/c from Gregor Mccain at [facility] (ph: [phone], fax:[phone]) indicating th at they have a bed available at their [facility]. He is aware that the [facility] is [facility] due to proximity. Monroe Mohan MD - 05/12/2013 6:57 PM PSTFormatting of this note might be different from the origi nal. Progress Notes by Shalonda Novoa MD at 05/12/131856 Author: Shalonda Novoa MD Service: (none) Author Type: Physician Filed: 05/12/131913 Date of Service: 05/12/131856 Status: Signed Dictating Machine Transcriber: Shalonda Novoa MD (Physician) [facility] Service: Otolaryngology Progress Note Hospital Day: LOS: 7 days Post-Op Day: 1 Day Post-Op SUBJECTIVE The patient is a 47 y.o. female with morbid obesity who was transferred to [facility] on Apr with the diagnosis of ARDS with influenza A, on Tamiflu. She also has a histor y of poorly controlled diabetes type 2, asthma and bronchitis with prior DVT. The patient wa s admitted on May 05, 2013. Mechanical ventilation initiated on May 01, 2013 at [facility]. A-line placed right radial artery [...] sulfate, nystatin, ny statin, ondansetron, ondansetron, pancrelipase (Lup-Nlxe-Nzfh) 10,000 units, petrolatum, jerri sphorus, potassium chloride, [...] 05/12/131756 Date of Service: 05/12/131749 Status: Signed Dictating Machine Transcriber: Esperanza Gutierrez MD (Physician) [facility] Service: Shipping And Receiving Supervisor Progress Note Gilma Salmon 47 y.o. Hospital [...] ventilation initiated on May 01, 2013 at [facility]. ICU TIMELINE:The patient is admitted [...] care as above. Family has met with [facility] repr esentative and plan to go to that facility once patient is stable for discharge. Code Status: Full Code *Please bill 45 minutes of critical care time spent evaluating the patient, reviewing the d trish and formulating a plan exclusive of all other procedures. Esperanza Gutierrez MD 05/12/2013 5:50 PM Ash Padilla, MS [facility]-HOME BUILDER - 05/12/2013 4:29 PM PSTFormatting of this note might be different from th e original. Progress Notes by Ysabel Lucero MS CCC-HOME BUILDER at 05/12/13 1629 Author: Ysabel Lucero MS CCC-HOME BUILDER Service: (none) Author Type: Speech and Language Pathol ogist Filed: 05/12/13 1633 Date of Service: 05/12/13 1629 Status: Signed Dictating Machine Transcriber: Ysabel Lucero MS CCC-HOME BUILDER (Speech and Language Pathologist) 05/12/13 1628 HOME BUILDER Last Visit HOME BUILDER Received On 05/12/13 Requires HOME BUILDER Follow Up On hold (HOME BUILDER to complete eval in am) Pt and family given communication board so pt is able to indicate what she needs/wants. Pt indicated she is too sick and didn't want to participate in an eval today. RN reports pt ceja s been throwing up through trach, HOME BUILDER to con't to follow for possible pmv placement when pt is appropriate. YSABEL LUCERO MS CCC-HOME BUILDER 05/12/2013 onversion Saldana saction, Provider Unknown - 05/12/2013 2:35 PM PSTFormatting of this note might be differen t from the original. Progress Notes by Deshawn Hernandez at 05/12/13 1435 Author: Deshawn Hernandez Service: (none) Author Type: Filed: 05/12/13 1436 Date of Service: 05/12/13 1435 Status: Signed Dictating Machine Transcriber: Deshawn Hernandez () Participated in interdisciplinary rounds with Dr. Gutierrez, vacuum pan tender. Pt is scheduled fo r transfer to LTAC. [employer] sorting out location with family. Family is supported by their [facility] community. Deshawn Hernandez [facility] onver elaina Transaction, Provider Unknown - 05/12/2013 1:10 PM PST Progress Notes by Joselyn Knutson RN at 05/12/13 1310 Author: Joselyn nKutson RN Service: Wound/Ostomy Care Author Type: Registered Nurse Filed: 05/12/13 1312 Date of Service: 05/12/13 1310 Status: Signed Dictating Machine Transcriber: Joselyn Knutson RN (Registered Nurse) Patient seen today by grant specialist for evaluation due to a low Huang [...] Author: MARTHA Kunz Service: (none) Author Type: Converter Skimmer Filed: 05/12/13 1014 Date of Service: 05/12/13 1008 Status: Signed Dictating Machine Transcriber: MARTHA Kunz (Converter Skimmer) Received t/c from [facility] who states that they do not have an y beds until the end of the week. Met with patient and family to discuss other options. They do not want pt to go to [facility] or [place]. They are agreeable to me making referrals to [facility] and [facility] as a back up plan if [facility] has no beds by Friday. Faxed clini christi to [facility] (fax: [phone], ph: [phone]) and [facility] (fax: [phone], ph: [phone]). Await return calls regarding bed availability and whether they are a contracted facility with insurance. oncaty delaney Transaction, Provider Unknown - 05/11/2013 3:41 PM PST Case Management by MARTHA Kunz at 05/11/13 1541 Author: MARTHA Kunz Service: (none) Author Type: Converter Skimmer Filed: 05/11/13 1549 Date of Service: 05/11/13 1541 Status: Signed Dictating Machine Transcriber: MARTHA Kunz (Converter Skimmer) Provided gas voucher to pt's daughter who is returning to [place] tomorrow and coming figueroa k on . Family informed me this morning that they do not want the pt to go to [facility] after all. They have chosen [facility] as their first choice and [facility] as their second ch oice. At this time [facility] has no beds but may on . Pt is to be trached today and pe gged tomorrow. REferral made to cecily Barbosa for [facility] ([phone]) who will have insurance check into whether they are contracted or not. I notified Tarsha Washington from [facility] that the family has chosen a different facility. Will complete transfer paperwork once I kno w if [facility] has a bed available. Notified [facility] of possible transfer on . Anabelle boone, NICANOR Crisostomo - 05/11/2013 12:12 PM PSTFormatting of this note might be different f rom the original. Progress Notes by NICANOR Martines at 05/11/13 1212 Author: NICANOR Martines Service: Shipping And Receiving Supervisor Author Type: Shipping And Receiving Supervisor Filed: 05/11/13 1528 Date of Service: 05/11/13 1212 Status: Signed Dictating Machine Transcriber: NICANOR Martines (Nurse Practitioner) [facility] Service: Shipping And Receiving Supervisor Progress Note Gilma Salmon 47 y.o. Hospital [...] ventilation initiated on May 01, 2013 at [facility]. ICU TIMELINE:The patient is admitted [...] of pneumomediastinum. Elect ronically signed by Naveed Htuson MD on 05/11/2013 1:05 PM Echo Cardiac [...] care as above. Family has met with [facility] lia naqvitive and plan to go to [...] Author: MARTHA Kunz Service: (none) Author Type: Converter Skimmer Filed: 05/10/13 8488 Date of Service: 05/10/131436 Status: Signed Dictating Machine Transcriber: MARTHA Kunz (Converter Skimmer) Attended morning rounds. Pt will likely be trached/pegged in the next 1-2 days. Met with p t's daughter to discuss LTAC options. They say that their father is still very sick at home with the flu and has asked them to assist with decision-making. LTAC options given. Daughter s are interested in [facility] in [place] as first choice and [facility] as second cho ice. I faxed clinical to [facility] ((fax [phone]) and spoke with the Tarsha tony ([phone]) who will plan to meet with pt's daughters tomorrow at 11:00. Salome Simms ARNP - 05/10/2013 7:25 AM PSTFormatting of this note might be different f rom the original. Progress Notes by NICANOR Martines at 05/10/13724 Author: NICANOR Martines Service: Shipping And Receiving Supervisor Author Type: Shipping And Receiving Supervisor Filed: 05/10/13811 Date of Service: 05/10/13724 Status: Signed Dictating Machine Transcriber: NICANOR Martines (Nurse Practitioner) [facility] Service: Shipping And Receiving Supervisor Progress Note Gilma Salmon 47 y.o. Hospital [...] ventilation initiated on May 01, 2013 at [facility]. ICU TIMELINE:The patient is admitted [...] will call Dr. novoa today who is apron trimmer from ENT the office is not open [...] Notes by Esperanza Gutierrez MD at 05/09/13 7141 Author: Esperanza Gutierrez MD Service: Shipping And Receiving Supervisor Author Type: Physician Filed: 05/09/131820 Date of Service: 05/09/131810 Status: Signed Dictating Machine Transcriber: Esperanza Gutierrez MD (Physician) [facility] Service: Shipping And Receiving Supervisor Progress Note Gilma Salmon 47 y.o. Hospital [...] init iated on May 01, 2013 at [facility]. A-line placed right radial artery [...] Notes by Han Guerrero DMD at 05/08/13 8619 Author: Han Guerrero DMD Service: Shipping And Receiving Supervisor Author Type: Physician Filed: 02/01/14 2221 Date of Service: 05/08/132213 Status: Addendum Dictating Machine Transcriber: Han Guerrero DMD (Dentist) Related Notes: Original Note by Han Guerrero DMD (Dentist) filed at 05/08/132215 [facility] Service: Shipping And Receiving Supervisor PM note Gilma Salmon 47 y.o. Evaluated [...] Notes by Esperanza Gutierrez MD at 05/08/13 6984 Author: Esperanza Gutierrez MD Service: (none) Author Type: Physician Filed: 05/08/13 1503 Date of Service: 05/08/13 1444 Status: Signed Dictating Machine Transcriber: Esperanza Gutierrez MD (Physician) [facility] Service: Shipping And Receiving Supervisor Progress Note Gilma M Salmon 47 y.o. [...] init iated on May 01, 2013 at [facility]. A-line placed right radial artery [...] Case Management by MARTHA Kunz at 05/07/13 4228 Author: MARTHA Kunz Service: (none) Author Type: Converter Skimmer Filed: 05/07/13 1346 Date of Service: 05/07/13 1333 Status: Signed Dictating Machine Transcriber: MARTHA Kunz (Converter Skimmer) 05/07/13 1331 Discharge Planning Evaluation Living Arrangements Spouse/significant other Support Systems Spouse/significant other;Children Type of Residence Private residence House type [facility] No Prior functional status Independent prior to admit. Was employed for [employer] in [place]. Met with: pt's 2 daughters Ashlyn and Juli and discussed discharge planning, Pt is a 47 y.o., female admitted with the flu and bilater al pneumonia. Pt is vented. Non smoker; has asthma. and lives with her Amado (22 years) in [place]. 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 He is sick with the flu as well so is no t coming in to visit the patient. Pt has a step-daughter in [place] and a son in [place]. 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 I a sked if they had a restoration that would support them. They are [facility] so I called mandrel puller Tim who got the girls connected with a local [place]ig[place] from the [employer] restoration and hopefully can assist wi th some housing. I offered gas vouchers if they need to transport back and forth from [facility]. CM to follow to provide support and [...] Author: Joseph Steward Service: (none) Author Type: Cattle Trader Filed: 05/07/13 1223 Date of Service: 05/07/13 1221 Status: Signed Dictating Machine Transcriber: Joseph Steward () Cattle Trader received call back from [employer] leader Luis Blunt, who then came promptly to ass ist dtrs with their needs. Chaplain Joseph Steward BCC Al Gonzalez MD - 05/07/2013 11:43 AM PSTFormatting of this note might be different from the o riginal. Progress Notes by Al Houston MD at 05/07/13 1143 Author: Al Houston MD Service: (none) Author Type: Shipping And Receiving Supervisor Filed: 05/07/13 1223 Date of Service: 05/07/13 1143 Status: Signed Dictating Machine Transcriber: Al Houston MD (Physician) [facility] Service: Shipping And Receiving Supervisor Progress Note Gilma Salmon 47 y.o. Hospital [...] initi ated on May 01, 2013 at [facility]. A-line placed right radial artery [facility] 2013. Events Overnight: Trying to wean peep [...] insulin regular 1 unit/mL 1.6 Units/hr (05/06/13 4326) PHYSICAL EXAM Vital Signs: BP 112/60 | [...] fro m the original. Progress Notes by Josehp Steward at 05/07/13 1035 Author: Joseph Steward Service: (none) Author Type: Filed: 05/07/13 1037 Date of Service: 05/07/13 1035 Status: Signed Dictating Machine Transcriber: Joseph Steward () Family referral for help in contacting local [facility] leadership for housing assistance for pt's 2 dtrs who are from [place]. Called/msg for local [facility] leader. Awaiting call back. Chaplain Joseph Steward BCC onver elaina Transaction, Provider Unknown - 05/06/2013 5:52 AM PST Progress Notes by Han Guerrero DMD at 05/06/13 0552 Author: Han Guerrero DMD Service: Shipping And Receiving Supervisor Author Type: Physician Filed: 05/07/13 0448 Date of Service: 05/06/13 0552 Status: Signed Dictating Machine Transcriber: Han Guerrero DMD (Dentist) Related Notes: Original Note by Han Guerrero DMD (Dentist) filed at 05/06/13 0610 [facility] Service: Shipping And Receiving Supervisor Progress Note Gilma Salmon 47 y.o. Hospital [...] initi ated on May 01, 2013 at [facility]. A-line placed right radial artery [facility] 2013. Events Overnight: The patient [...] sulfate, nystatin, nystatin, ondan setron, ondansetron, pancrelipase (Bjb-Pihu-Tvft) 10,000 units, petrolatum, phosphorus, pota ssium chloride, [...] Progress Notes by Han Guerrero DMD at 05/05/136 Author: Han Guerrero DMD Service: (none) Author Type: Physician Filed: 05/05/13 6044 Date of Service: 05/05/132244 Status: Signed Dictating Machine Transcriber: Han Guerrero DMD (Dentist) [facility] Service: Shipping And Receiving Supervisor PM note Gilma Leyva Teodora 47 y.o. [...] function tests) ASSESSMENT & PLAN Will need [place], decreased MV to 6 cc kg ibw, [...] 141 Date of Service: 05/05/131414 Status: Signed Dictating Machine Transcriber: Jenniffer Hidalgo RPH (Pharmacist) Initiation of Vancomycin Pharmacy Dosing Gilma Salmon 47 y.o. female 1.676 m (5' 6") 138.9 kg (306 lb 3.5 oz) Body mass index is 49.45 kg/(m^2). [place] Body Weight: 59.3 kg Adjusted Body Weight: 91.1 kg CREATININE Date Value Range Status 05/05/2013 0.81 0.50 - 1.00 mg/dL Final Testing performed at [facility];[address] [facility];[place] [address] Estimated [facility] : CREATININE: 0.81 (05/05/13 1320) [...] Service: (none) Author Type: Pharmacist Filed: 05/05/13 1257 Date of Service: 05/05/13 1251 Status: Signed Dictating Machine Transcriber: Jenniffer Hidalgo RPH (Pharmacist) Renal Dosing Monitoring: [...] H&P by Estefania Brannon DO at 05/05/13 4215 Author: Estefania Brannon DO Service: Shipping And Receiving Supervisor Author Type: Shipping And Receiving Supervisor Filed: 05/05/13 1509 Date of Service: 05/05/13 1309 Status: Addendum Dictating Machine Transcriber: Estefania Brannon DO (Physician) Related Notes: Original Note by Estefania Brannon DO (Physician) filed at 05/05/13 5527 [facility] Service: Shipping And Receiving Supervisor Admission History & Physical Gilma Salmon 47 y.o. Date of Admission: 05/05/2013 Requesting Physician: Dr. Hernandes, Hospitalist at [facility] Indication for ICU Admission: acute respiratory failure, [...] who pres ented to the ED at [facility] on 05/01 for cough and fever and was discharged home. She pr esented there again the next day with SOB, weakness, cough, fever and dizziness. She was the n admitted and tested positive for influenza A and was started on Tamiflu. She became progre ssively more hypoxemic with increasing b/l infiltrates on CXR and was transferred to [facility] for further management after she was intubated on the evening of 05/04. (Pt had just receiv ed flu shot on 04/29/13 at [facility]). REVIEW OF SYSTEMS A comprehensive review [...] for intubation: daily sedation holidays and keep Brock 2-3. CARDIOVASCULAR: Hemodynamically stable PULMONARY: Acute respiratory failure: due to Influenza A pneumonia. Will send sputum for cx as at r isk for secondary bacterial PNA. Will keep higher PEEP and wean FIO2 for sats >90%. Asthma: without e/o acute exacerbation. ETT a little high on CXR, will advance 2 cm. GI: Elevated AST/ALT: mild. Monitor. Had neg viral hepatitis serologies at [facility]. RENAL: Hypokalemia: replace and follow HypoMg: [...] Procedures by Shalonda Novoa MD at 05/11/13 7942 Author: Shalonda Novoa MD Service: (none) Author Type: Physician Filed: 05/11/13 5575 Date of Service: 05/11/13 5769 Status: Signed Dictating Machine Transcriber: Shalonda Novoa MD (Physician) [facility] Service: Otolaryngology Operative Note Pre-operative Diagnosis: Respiratory Failure Post-operative Diagnosis: Same Procedure(s): Tracheostomy, Nasogastric tube insertion Surgeon: SHALONDA NOVOA MD Poultry Trimmer(s): Alexandrea LOUIS Anesthesia: General endotrachial anesthesia Estimated Blood Loss: Less Than 50 ml Other: #8 Shiley DCT tracheostomy tube, 10 [place] nasogastric feeding tube Indications: 47 YOF with [...] 010 Date of Service: 05/06/13100 Status: Signed Dictating Machine Transcriber: Han Guerrero DMD (Dentist) Procedure Orders: 1. Insert arterial line [[id number]] ordered by Han Guerrero DMD at 05/06/13 010 Post-procedure Diagnoses: 1. Acute respiratory failure (HCC) [518.81] [facility] Service: Shipping And Receiving Supervisor BEDSIDE PROCEDURE NOTE Insert Arterial Line Date/Time: 05/05/2013 1:01 AM Performed by: HAN GUERRERO Authorized by: HAN GUERRERO Consent: The procedure was performed in an emergent situation. Patient identity confirmed: anonymous protocol, patient vented/unresponsive Time out: Immediately prior to procedure a "time out" was called to verify the correct gee ent, procedure, equipment, collection support specialist and site/side marked as required. Preparation: Patient [...] Date of Service: 05/11/13 1026 Status: Signed Dictating Machine Transcriber: Shalonda Novoa MD (Physician) [facility] Service: Otolaryngology Initial Consult Note Date of Admission: 05/05/2013 Reason for Consultation: Respiratory Failure requiring mechanical ventilation Requesting Physician: Shipping And Receiving Supervisor History Obtained From: daughter, chart review Date of Service: 05/10/2013 CHIEF COMPLAINT: Respiratory failure HISTORY OF PRESENT ILLNESS The patient is a 47 y.o. female with morbid obesity who was transferred to [facility] on 2013 with the diagnosis of ARDS with influenza A, on Tamiflu. She also has a history o f poorly controlled diabetes type 2, asthma and bronchitis with prior DVT. The patient was a dmitted on May 05, 2013. Mechanical ventilation initiated on May 01, 2013 at [facility]. A-line placed right radial artery May [...] sulfate, nystatin, nystatin, ondansetron, on dansetron, pancrelipase (Gsr-Bprk-Bczb) 10,000 units, petrolatum, phosphorus, potassium chlo ride, potassium chloride, potassium chloride, sodium bicarbonate, sodium chloride 0.9 %, sod ium glycerophosphate IVPB 20 mMol, sodium glycerophosphate IVPB 45 mMol [DISCONTINUED] pancrelipase (Ien-Wffb-Dokh) 10,000 units, [DISCONTINUED] pancrelipase (Lip- Prot-Amyl) 10,000 [...] 05/07/13941 Date of Service: 05/07/13941 Status: Signed Dictating Machine Transcriber: Ann Marie Garcia RN (Registered Nurse) Problem: [...] D | | | | | | [place] [address] | | | | | | [phone] | | | | | | | [...] | | | Fingerstick | performed at [facility];[address] | | LAB | | | | [address];[place] | | | | | | [address] | | | | + + + [...] | | LAB | | | | [facility], [address] | | | | | | [place] | | | | | | [address] | | | | + + + + + + | HEP B | NON REACTIVEComment: | | EXTERNAL | | | SURFACE | Testing performed at | | LAB | | | ANTIBODY | [facility], [address] | | | | | | [place] | | | | | | [address] | | | | + + + + + + | Hepatitis B | NON REACTIVEComment: | | EXTERNAL | | | Core Ab | Testing performed at | | LAB | | | Total | [facility], [address] | | | | | | [place] | | | | | | [address] | | | | + + + [...] | | | | | performed at [facility], [address] | | | | | | [address], | | | | | | [place] [address] | | | | + + + + + + | HCV Ab | NON REACTIVEComment: | | EXTERNAL | | | | Testing performed at | | LAB | | | | [facility], [address] | | | | | | [place] | | | | | | [address] | | | | + + + [...] at | | | | | | [facility], [address] | | | | | | [place] | | | | | | [address] | | | | + + + [...] | | | Fingerstick | performed at [facility];[address] | | LAB | | | | [address];[place], [place] | | | | | | [address] | | | | + + + [...] | | | Fingerstick | performed at [facility];[address] | | LAB | | | | [address];[place] | | | | | | [address] [...] | | | Fingerstick | performed at [facility];[address] | | LAB | | | | [address];[place] | | | | | | [address] | | | | + + + [...] EXTERNAL | | | | performed at [facility];888 | mmol/L | LAB | | | | [address];[place] | | | | | | [address] | | | | + + [...] | | | Fingerstick | performed at [facility] | | LAB | | | | [address];[place], [place] | | | | | | [address] | | | | + + + [...] EXTERNAL | | | | performed at [facility];[address] | | LAB | | | | [address];[place] | | | | | | [address] | | | | + + + + + + | Non- | 3.77Comment: Testing | 3.70 - 5.10 | EXTERNAL | | | Red Blood | performed at [facility];888 | M/uL | LAB | | | Cells | [address];[place] | | | | | Counted | [address] | | | | + + + + + + | Hemoglobin | 10.4 (L)Comment: Testing | 11.3 - 15.5 | EXTERNAL | | | | performed at [facility];888 | g/dL | LAB | | | | [address];[place] | | | | | | [address] | | | | + + + + + + | Hematocrit, | 30.3 (L)Comment: Testing | 34.0 - 46.0 % | EXTERNAL | | | POC | performed at [facility];[address] | | LAB | | | | [address];[place] | | | | | | [address] | | | | + + + + + + | MCV | 80.4Comment: Testing | 80.0 - 100.0 fl | EXTERNAL | | | | performed at [facility];[address] | | LAB | | | | [address];[place] | | | | | | [address] | | | | + + + + + + | MCH | 27.6Comment: Testing | 27.0 - 34.0 pg | EXTERNAL | | | | performed at [facility];[address] | | LAB | | | | [address];[place] | | | | | | [address] | | | | + + + + + + | MCHC | 34.3Comment: Testing | 32.0 - 35.5 | EXTERNAL | | | | performed at [facility];888 | g/dL | LAB | | | | [address];[place] | | | | | | [address] | | | | + + + + + + | RDW-CV | 40.3Comment: Testing | 37 - 53 fl | EXTERNAL | | | | performed at [facility];[address] | | LAB | | | | [address];[place] | | | | | | [address] | | | | + + + + + + | Platelet | 544 (H)Comment: Testing | 150 - 400 K/uL | EXTERNAL | | | Count | performed at [facility];[address] | | LAB | | | Plasma | [address];[place] | | | | | | [address] | | | | + + + + + + | MPV | 6.6Comment: Testing | fl | EXTERNAL | | | | performed at [facility];[address] | | LAB | | | | [address];[place] | | | | | | [address] | | | | + + + + + + | Differentia | AUTOMATEDComment: | | EXTERNAL | | | l Type | Testing performed at | | LAB | | | | [facility];[address] | [address];[place] [address] | | | | + + + [...] EXTERNAL | | | | performed at [facility];[address] | | LAB | | | | [address];[place] | | | | | | [address] | | | | + + + [...] EXTERNAL | | | | performed at [facility];888 | mmol/L | LAB | | | | [address];[place] | | | | | | [address] | | | | + + + + + + | K | 3.5Comment: Testing | 3.5 - 4.9 | EXTERNAL | | | | performed at [facility];888 | mmol/L | LAB | | | | [address];[place] | | | | | | [address] | | | | + + + + + + | Cl | 102Comment: Testing | 99 - 109 mmol/L | EXTERNAL | | | | performed at [facility];[address] | | LAB | | | | [address];[place] | | | | | | [address] | | | | + + + + + + | CO2 | 29Comment: Testing | 23 - 32 mmol/L | EXTERNAL | | | | performed at [facility];[address] | | LAB | | | | [address];[place] | | | | | | [address] | | | | + + + + + + | Anion Gap | 10Comment: Testing | 5 - 20 mmol/L | EXTERNAL | | | | performed at [facility];[address] | | LAB | | | | [address];[place] | | | | | | [address] | | | | + + + + + + | Glucose, | 106 (H)Comment: Testing | 65 - 99 mg/dL | EXTERNAL | | | Fasting | performed at [facility];[address] | | LAB | | | | [address];[place] | | | | | | [address] | | | | + + + + + + | BUN | 16Comment: Testing | 8 - 25 mg/dL | EXTERNAL | | | | performed at [facility];[address] | | LAB | | | | [address];[place] | | | | | | [address] | | | | + + + + + + | Creatinine | 0.55Comment: Testing | 0.50 - 1.00 | EXTERNAL | | | | performed at [facility];888 | mg/dL | LAB | | | | [address];[place] | | | | | | [address] | | | | + + + + + + | BUN/Creatin | 30Comment: Testing | | EXTERNAL | | | ine Ratio | performed at [facility];[address] | | LAB | | | | [address];[place] | | | | | | [address] | | | | + + + + + + | Calcium | 8.5Comment: Testing | 8.5 - 10.2 | EXTERNAL | | | | performed at [facility];888 | mg/dL | LAB | | | | [address];[place] | | | | | | [address] | | | | + + + + + + | Protein, | 7.5Comment: Testing | 6.3 - 8.2 g/dL | EXTERNAL | | | Total | performed at [facility];[address] | | LAB | | | | [address];[place] | | | | | | [address] | | | | + + + + + + | Albumin | 2.2 (L)Comment: Testing | 3.6 - 5.0 g/dL | EXTERNAL | | | | performed at [facility];[address] | | LAB | | | | [address];[place] | | | | | | [address] | | | | + + + + + + | Globulin | 5.3 (H)Comment: Testing | 1.3 - 4.9 g/dL | EXTERNAL | | | | performed at [facility];[address] | | LAB | | | | [address];[place] | | | | | | [address] | | | | + + + + + + | A/G Ratio | 0.4 (L)Comment: Testing | 1.0 - 2.4 | EXTERNAL | | | | performed at [facility];[address] | | LAB | | | | [address];[place] | | | | | | [address] | | | | + + + + + + | Bilirubin | 0.5Comment: Testing | 0.1 - 1.5 mg/dL | EXTERNAL | | | Total | performed at [facility];[address] | | LAB | | | | [address];[place] | | | | | | [address] | | | | + + + + + + | ALP, | 118 (H)Comment: Testing | 35 - 115 U/L | EXTERNAL | | | External | performed at [facility];[address] | | LAB | | | | [address];[place] | | | | | | [address] | | | | + + + + + + | AST | 69 (H)Comment: Testing | 10 - 45 U/L | EXTERNAL | | | | performed at [facility];[address] | | LAB | | | | [address];[place] | | | | | | [address] | | | | + + + + + + | ALT | 81 (H)Comment: Testing | 10 - 65 U/L | EXTERNAL | | | | performed at [facility];[address] | | LAB | | | | [address];[place] | | | | | | [address] | | | | + + + [...] | | | | | | at [facility];[address];[place] [address] | | | | + + + [...] | | | Fingerstick | performed at [facility];[address] | | LAB | | | | [address];[place], [place] | | | | | | [address] | | | | + + + [...] | | | Fingerstick | performed at [facility];[address] | | LAB | | | | [address];[place], [place] | | | | | | [address] | | | | + + + [...] EXTERNAL | | | | performed at [facility];888 | mmol/L | LAB | | | | [address];[place] | | | | | | [address] | | | | + + + + + + | K | 4.0Comment: Testing | 3.5 - 4.9 | EXTERNAL | | | | performed at [facility];888 | mmol/L | LAB | | | | [address];[place] | | | | | | [address] | | | | + + + + + + | Cl | 100Comment: Testing | 99 - 109 mmol/L | EXTERNAL | | | | performed at [facility];[address] | | LAB | | | | [address];[place] | | | | | | [address] | | | | + + + + + + | CO2 | 31Comment: Testing | 23 - 32 mmol/L | EXTERNAL | | | | performed at [facility];[address] | | LAB | | | | [address];[place] | | | | | | [address] | | | | + + + + + + | Anion Gap | 9Comment: Testing | 5 - 20 mmol/L | EXTERNAL | | | | performed at [facility];[address] | | LAB | | | | [address];[place] | | | | | | [address] | | | | + + + + + + | Glucose, | 179 (H)Comment: Testing | 65 - 99 mg/dL | EXTERNAL | | | Fasting | performed at [facility];[address] | | LAB | | | | [address];[place] | | | | | | [address] | | | | + + + + + + | BUN | 20Comment: Testing | 8 - 25 mg/dL | EXTERNAL | | | | performed at [facility];[address] | | LAB | | | | [address];[place] | | | | | | [address] | | | | + + + + + + | Creatinine | 0.67Comment: Testing | 0.50 - 1.00 | EXTERNAL | | | | performed at [facility];888 | mg/dL | LAB | | | | [address];[place] | | | | | | [address] | | | | + + + + + + | BUN/Creatin | 29Comment: Testing | | EXTERNAL | | | ine Ratio | performed at [facility];[address] | | LAB | | | | [address];[place] | | | | | | [address] | | | | + + + + + + | Calcium | 8.8Comment: Testing | 8.5 - 10.2 | EXTERNAL | | | | performed at [facility];888 | mg/dL | LAB | | | | [address];[place] | | | | | | [address] | | | | + + + [...] | | | | | | at [facility];[address];[place] [address] | | | | + + + [...] | | | Fingerstick | performed at [facility];[address] | | LAB | | | | [address];[place], [place] | | | | | | [address] | | | | + + + [...] | | | Fingerstick | performed at [facility];[address] | | LAB | | | | [address] [facility];[place] | | | | | | [address] | | | | + + + [...] | | | | | [place] [address] | | | | + + + + + + | Non- | 3.90Comment: Testing | 3.70 - 5.10 | EXTERNAL | | | Red Blood | performed at [facility], [address] | M/uL | LAB | | | Cells | [place], | | | | | Counted | [place] [address] | | | | + + + + + + | Hemoglobin | 10.4 (L)Comment: Testing | 11.3 - 15.5 | EXTERNAL | | | | performed at [facility], [address] | g/dL | LAB | | | | [address] [place] [place], | | | | | | [place] [address] | | | | + + + + + + | Hematocrit, | 31.8 (L)Comment: Testing | 34.0 - 46.0 % | EXTERNAL | | | POC | performed at [facility], [address] | | LAB | | | | [address] [place], | | | | | | [place] [address] | | | | + + + + + + | MCV | 81.6Comment: Testing | 80.0 - 100.0 fl | EXTERNAL | | | | performed at [facility], [address] | | LAB | | | | [place], | | | | | | [place] [address] | | | | + + + + + + | MCH | 26.7 (L)Comment: Testing | 27.0 - 34.0 pg | EXTERNAL | | | | performed at [facility], [address] | | LAB | | | | [address] [place], | | | | | | [place] [address] | | | | + + + + + + | MCHC | 32.7Comment: Testing | 32.0 - 35.5 | EXTERNAL | | | | performed at [facility], [address] | g/dL | LAB | | | | [address], | | | | | | [place] [address] | | | | + + + + + + | RDW-CV | 39.8Comment: Testing | 37 - 53 fl | EXTERNAL | | | | performed at [facility], [address] | | LAB | | | | [address], | | | | | | [place] [address] | | | | + + + + + + | Platelet | 469 (H)Comment: Testing | 150 - 400 K/uL | EXTERNAL | | | Count | performed at [facility], [address] | | LAB | | | Plasma | [address], | | | | | | [place] [address] | | | | + + + + + + | MPV | 7.1Comment: Testing | fl | EXTERNAL | | | | performed at [facility], [address] | | LAB | | | | [address] [place], | | | | | | [place] [address] | | | | + + + + + + | Differentia | AUTOMATEDComment: | | EXTERNAL | | | l Type | Testing performed at | | LAB | | | | [facility], [address] | | | | | | [place] | | | | | | [address] | | | | + + + [...] EXTERNAL | | | | performed at [facility], [address] | | LAB | | | | [place], | | | | | | [place] [address] | | | | + + + [...] | | | | | [place] [address] | | | | + + + + + + | K | 3.7Comment: Testing | 3.5 - 4.9 | EXTERNAL | | | | performed at [facility], [address] | mmol/L | LAB | | | | [address], | | | | | | [place] [address] | | | | + + + + + + | Cl | 102Comment: Testing | 99 - 109 mmol/L | EXTERNAL | | | | performed at [facility], [address] | | LAB | | | | [address], | | | | | | [place] [address] | | | | + + + + + + | CO2 | 29Comment: Testing | 23 - 32 mmol/L | EXTERNAL | | | | performed at [facility], [address] | | LAB | | | | [address], | | | | | | [place] [address] | | | | + + + + + + | Anion Gap | 9Comment: Testing | 5 - 20 mmol/L | EXTERNAL | | | | performed at [facility], [address] | | LAB | | | | [address], | | | | | | [place] [address] | | | | + + + + + + | Glucose, | 147 (H)Comment: Testing | 65 - 99 mg/dL | EXTERNAL | | | Fasting | performed at [facility], [address] | | LAB | | | | [address], | | | | | | [place] [address] | | | | + + + + + + | BUN | 18Comment: Testing | 8 - 25 mg/dL | EXTERNAL | | | | performed at [facility], [address] | | LAB | | | | [address] [place], | | | | | | [place] [address] | | | | + + + + + + | Creatinine | 0.45 (L)Comment: Testing | 0.50 - 1.00 | EXTERNAL | | | | performed at [facility], [address] | mg/dL | LAB | | | | [address], | | | | | | [place] [address] | | | | + + + + + + | BUN/Creatin | 40Comment: Testing | | EXTERNAL | | | ine Ratio | performed at [facility], [address] | | LAB | | | | [address], | | | | | | [place] [address] | | | | + + + + + + | Calcium | 8.9Comment: Testing | 8.5 - 10.2 | EXTERNAL | | | | performed at [facility], [address] | mg/dL | LAB | | | | [address], | | | | | | [place] [address] | | | | + + + + + + | Protein, | 7.1Comment: Testing | 6.3 - 8.2 g/dL | EXTERNAL | | | Total | performed at [facility], [address] | | LAB | | | | [address], | | | | | | [place] [address] | | | | + + + + + + | Albumin | 2.8 (L)Comment: Testing | 3.6 - 5.0 g/dL | EXTERNAL | | | | performed at [facility], [address] | | LAB | | | | [address], | | | | | | [place] [address] | | | | + + + + + + | Globulin | 4.3Comment: Testing | 1.3 - 4.9 g/dL | EXTERNAL | | | | performed at [facility], [address] | | LAB | | | | [address], | | | | | | [place] [address] | | | | + + + + + + | A/G Ratio | 0.7 (L)Comment: Testing | 1.0 - 2.4 | EXTERNAL | | | | performed at [facility], [address] | | LAB | | | | [address], | | | | | | [place] [address] | | | | + + + + + + | Bilirubin | 0.5Comment: Testing | 0.1 - 1.5 mg/dL | EXTERNAL | | | Total | performed at [facility], [address] | | LAB | | | | [address], | | | | | | [place] [address] | | | | + + + + + + | ALP, | 94Comment: Testing | 35 - 115 U/L | EXTERNAL | | | External | performed at [facility], [address] | | LAB | | | | [address], | | | | | | [place] [address] | | | | + + + + + + | AST | 62 (H)Comment: Testing | 10 - 45 U/L | EXTERNAL | | | | performed at [facility], [address] | | LAB | | | | [address], | | | | | | [place] [address] | | | | + + + + + + | ALT | 70 (H)Comment: Testing | 10 - 65 U/L | EXTERNAL | | | | performed at [facility], [address] | | LAB | | | | [address], | | | | | | [place] [address] | | | | + + + [...] | | | | | [place] [address] | | | | + + + [...] | | | Fingerstick | performed at [facility];[address] | | LAB | | | | [address];[place], [place] | | | | | | [address] | | | | + + + [...] EXTERNAL | | | | performed at [facility];888 | mmol/L | LAB | | | | [address];[place], [place] | | | | | | [address] | | | | + + + [...] EXTERNAL | | | | performed at [facility];8 | | LAB | | | | [address];[place] | | | | | | [address] | | | | + + + [...] EXTERNAL | | | | performed at [facility];[address] | | LAB | | | | [address];[place], [place] | | | | | | [address] | | | | + + + [...] | | | Fingerstick | performed at [facility];88 | | LAB | | | | [address];[place], [place] | | | | | | [address] | | | | + + + [...] | | | Fingerstick | performed at [facility];[address] | | LAB | | | | [address];[place] | | | | | | [address] | | | | + + + [...] | | | Fingerstick | performed at [facility];[address] | | LAB | | | | [address];[place], [place] | | | | | | [address] | | | | + + + [...] | | | (Calc) | performed at [facility];888 | mmol/L | LAB | | | | [address];[place] | | | | | | [address] | | | | + + + + + + | pH, Bld | 7.463 (H)Comment: | 7.300 - 7.450 | EXTERNAL | | | | Testing performed at | | LAB | | | | [facility];[address];[place] [address] | | | | + + + [...] | | | | | performed at [facility];[address] | | | | | | [facility];[place], [place] | | | | | | [address] | | | | + + + [...] EXTERNAL | | | | performed at [facility];[address] | | LAB | | | | [address];[place] | | | | | | [id number] | | | | + + + + + + | Non- | 3.85Comment: Testing | 3.70 - 5.10 | EXTERNAL | | | Red Blood | performed at [facility];[address] | M/uL | LAB | | | Cells | [address];[place] | | | | | Counted | [id number] | | | | + + + + + + | Hemoglobin | 10.6 (L)Comment: Testing | 11.3 - 15.5 | EXTERNAL | | | | performed at [facility];888 | g/dL | LAB | | | | [address];[place] | | | | | | [address] | | | | + + + + + + | Hematocrit, | 31.0 (L)Comment: Testing | 34.0 - 46.0 % | EXTERNAL | | | POC | performed at [facility];[address] | | LAB | | | | [address];[place] | | | | | | [address] | | | | + + + + + + | MCV | 80.5Comment: Testing | 80.0 - 100.0 fl | EXTERNAL | | | | performed at [facility];[address] | | LAB | | | | [address];[place] | | | | | | [address] | | | | + + + + + + | MCH | 27.5Comment: Testing | 27.0 - 34.0 pg | EXTERNAL | | | | performed at [facility];[address] | | LAB | | | | [address];[place] | | | | | | [address] | | | | + + + + + + | MCHC | 34.1Comment: Testing | 32.0 - 35.5 | EXTERNAL | | | | performed at [facility];888 | g/dL | LAB | | | | [address];[place] | | | | | | [address] | | | | + + + + + + | RDW-CV | 41.1Comment: Testing | 37 - 53 fl | EXTERNAL | | | | performed at [facility];[address] | | LAB | | | | [address];[place] | | | | | | [address] | | | | + + + + + + | Platelet | 484 (H)Comment: Testing | 150 - 400 K/uL | EXTERNAL | | | Count | performed at [facility];[address] | | LAB | | | Plasma | [address];[place] | | | | | | [address] | | | | + + + + + + | MPV | 6.8Comment: Testing | fl | EXTERNAL | | | | performed at [facility];[address] | | LAB | | | | [address];[place] | | | | | | [address] | | | | + + + + + + | Differentia | AUTOMATEDComment: | | EXTERNAL | | | l Type | Testing performed at | | LAB | | | | [facility];[address];[place] [address] | | | | + + + [...] EXTERNAL | | | | performed at [facility];[address] | | LAB | | | | [address];[place], [place] | | | | | | [address] | | | | + + + [...] EXTERNAL | | | | performed at [facility];888 | | LAB | | | | [address];[place] | | | | | | [address] | | | | + + + [...] EXTERNAL | | | | performed at [facility];888 | mmol/L | LAB | | | | [address];[place], [place] | | | | | | [address] | | | | + + + + + + | K | 3.9Comment: Testing | 3.5 - 4.9 | EXTERNAL | | | | performed at [facility];888 | mmol/L | LAB | | | | [address];[place] | | | | | | [address] | | | | + + + + + + | Cl | 104Comment: Testing | 99 - 109 mmol/L | EXTERNAL | | | | performed at [facility];[address] | | LAB | | | | [address];[place] | | | | | | [address] | | | | + + + + + + | CO2 | 27Comment: Testing | 23 - 32 mmol/L | EXTERNAL | | | | performed at [facility];[address] | | LAB | | | | [address];[place] | | | | | | [address] | | | | + + + + + + | Anion Gap | 10Comment: Testing | 5 - 20 mmol/L | EXTERNAL | | | | performed at [facility];888 | | LAB | | | | [address];[place] | | | | | | [address] | | | | + + + + + + | Glucose, | 151 (H)Comment: Testing | 65 - 99 mg/dL | EXTERNAL | | | Fasting | performed at [facility];[address] | | LAB | | | | [address];[place] | | | | | | [address] | | | | + + + + + + | BUN | 17Comment: Testing | 8 - 25 mg/dL | EXTERNAL | | | | performed at [facility];[address] | | LAB | | | | [address];[place] | | | | | | [address] | | | | + + + + + + | Creatinine | 0.57Comment: Testing | 0.50 - 1.00 | EXTERNAL | | | | performed at [facility];888 | mg/dL | LAB | | | | [address];[place] | | | | | | [address] | | | | + + + + + + | BUN/Creatin | 29Comment: Testing | | EXTERNAL | | | ine Ratio | performed at [facility];[address] | | LAB | | | | [address];[place] | | | | | | [address] | | | | + + + + + + | Calcium | 8.3 (L)Comment: Testing | 8.5 - 10.2 | EXTERNAL | | | | performed at [facility];888 | mg/dL | LAB | | | | [address];[place] | | | | | | [address] | | | | + + + + + + | Protein, | 7.1Comment: Testing | 6.3 - 8.2 g/dL | EXTERNAL | | | Total | performed at [facility];[address] | | LAB | | | | [address];[place] | | | | | | [address] | | | | + + + + + + | Albumin | 1.9 (L)Comment: Testing | 3.6 - 5.0 g/dL | EXTERNAL | | | | performed at [facility];[address] | | LAB | | | | [address];[place] | | | | | | [address] | | | | + + + + + + | Globulin | 5.1 (H)Comment: Testing | 1.3 - 4.9 g/dL | EXTERNAL | | | | performed at [facility];[address] | | LAB | | | | [address];[place] | | | | | | [address] | | | | + + + + + + | A/G Ratio | 0.4 (L)Comment: Testing | 1.0 - 2.4 | EXTERNAL | | | | performed at [facility];[address] | | LAB | | | | [address];[place] | | | | | | [address] | | | | + + + + + + | Bilirubin | 0.5Comment: Testing | 0.1 - 1.5 mg/dL | EXTERNAL | | | Total | performed at [facility];[address] | | LAB | | | | [address];[place] | | | | | | [address] | | | | + + + + + + | ALP, | 120 (H)Comment: Testing | 35 - 115 U/L | EXTERNAL | | | External | performed at [facility];[address] | | LAB | | | | [address];[place] | | | | | | [address] | | | | + + + + + + | AST | 79 (H)Comment: Testing | 10 - 45 U/L | EXTERNAL | | | | performed at [facility];[address] | | LAB | | | | [address];[place] | | | | | | [address] | | | | + + + + + + | ALT | 78 (H)Comment: Testing | 10 - 65 U/L | EXTERNAL | | | | performed at [facility];[address] | | LAB | | | | [address];[place] | | | | | | [address] | | | | + + + [...] | | | | | | at [facility];[address] [place] [address] | | | | | | [facility];[place] [address] | | | | + + + [...] | | | Fingerstick | performed at [facility];[address] | | LAB | | | | [address];[place] | | | | | | [address] | | | | + + + [...] | | | Patient | performed at [facility];888 | | LAB | | | | [address];[place] | | | | | | [address] | | | | + + + [...] | | | | | performed at [facility];[address] | | | | | | [address];[place], [place] | | | | | | [address] | | | | + + + [...] | | | Fingerstick | performed at [facility];888 | | LAB | | | | [address];[place] | | | | | | [address] | | | | + + + [...] EXTERNAL | | | | performed at [facility];888 | mmol/L | LAB | | | | [address];[place], [place] | | | | | | [address] | | | | + + + [...] EXTERNAL | | | | performed at [facility];888 | | LAB | | | | [address];[place], [place] | | | | | | [address] | | | | + + + [...] EXTERNAL | | | | performed at [facility];88 | | LAB | | | | [address];[place], [place] | | | | | | [address] | | | | + + + [...] | | | Fingerstick | performed at [facility];[address] | | LAB | | | [address];[place], [place] | | | | | | [address] [...] Excursion: 2.11 cm E-F | | | Butler: 0.14 m/s IVC diameter: 2.19 cm IVC [...] 0.56 m/s TV | | | Dec [place]: 4.82 m/s2 TV Dec Time: 116.68 ms TV E Cindy: 0.56 | | | m/s TV E/A Ratio: 1 Sales Service Rep: MARISA Authenticated by: Daina العراقي | | [...] (A-L): 14.81 ml/m2LAAs A2C: 11.70 | | [id number] A-L A2C: 27.34 mlLALs A2C: 4.25 cmLAAs A4C: 15.34 [id number] A-L A4C: | | 38.61 mlLALs A4C: 5.17 cmAo Diam: 2.95 cmAV Cusp: 1.94 cmLA Diam: 3.01 cmLA/Ao: | | 1.02%FS: 33.07 %EDV(Teich): 93.02 mlEF(Teich): 61.77 %ESV(Teich): 35.55 | | mlIVSd: 1.18 cmIVSs: 1.31 cmLVIDd: 4.51 cmLVIDs: 3.01 cmLVPWd: 0.59 cmLVPWs: | | 1.28 cmSV(Teich): 57.46 mlD-E Excursion: 2.11 cmE-F [place]: 0.14 m/sIVC diameter: | | 2.19 cmIVC collapse: 1.56 cmIVC % collapse: 26.37 %HR: 87.57 BPMAV maxPG: | | 10.95 mmHgAV meanP.08 mmHgAV Vmax: 1.65 m/Dalia Vmean: 1.16 m/Dalia VTI: 31.75 | | cmAVA Vmax: 2.87 cm2AVA (VTI): 3.09 [id number] Dopp: 3.61 l/bwyj4VGBA Dopp: 8.73 | | l/minHR: 88.92 BPMLVOT [...] 2.30 m/sTV A Cindy: 0.56 m/sTV Dec [place]: 4.82 m/s2TV Dec Time: | | 116.68 msTV E Cindy: 0.56 m/sTV E/A Ratio: 1 Sales Service Rep: Bevted by: Daina | | Jimmy Alan [...] | |D-E Excursion: 2.11 cm | |E-F [place]: 0.14 m/s | |IVC diameter: 2.19 cm [...] A Cindy: 0.56 m/s | |TV Dec [place]: 4.82 m/s2 | |TV Dec Time: 116.68 ms | |TV E Cindy: 0.56 m/s | |TV E/A Ratio: 1 | | | |Sales Service Rep: KVW | |Authenticated by: Daina Alan MD [...] | | | Fingerstick | performed at [facility];[address] | | LAB | | | | [address];[place], [place] | | | | | | [address] | | | | + + + [...] | | | | | [place] [address] | | | | + + + + + + | Non- | 3.73Comment: Testing | 3.70 - 5.10 | EXTERNAL | | | Red Blood | performed at [facility], [address] | M/uL | LAB | | | Cells | [address], | | | | | Counted | [place] [address] | | | | + + + + + + | Hemoglobin | 10.6 (L)Comment: Testing | 11.3 - 15.5 | EXTERNAL | | | | performed at [facility], [address] | g/dL | LAB | | | | [address], | | | | | | [place] [address] | | | | + + + + + + | Hematocrit, | 30.5 (L)Comment: Testing | 34.0 - 46.0 % | EXTERNAL | | | POC | performed at [facility], [address] | | LAB | | | | [address], | | | | | | [place] [address] | | | | + + + + + + | MCV | 81.8Comment: Testing | 80.0 - 100.0 fl | EXTERNAL | | | | performed at [facility], [address] | | LAB | | | | [address], | | | | | | [place] [address] | | | | + + + + + + | MCH | 28.4Comment: Testing | 27.0 - 34.0 pg | EXTERNAL | | | | performed at [facility], [address] | | LAB | | | | [address], | | | | | | [place] [address] | | | | + + + + + + | MCHC | 34.7Comment: Testing | 32.0 - 35.5 | EXTERNAL | | | | performed at [facility], [address] | g/dL | LAB | | | | [address], | | | | | | [place] [address] | | | | + + + + + + | RDW-CV | 41.1Comment: Testing | 37 - 53 fl | EXTERNAL | | | | performed at [facility], [address] | | LAB | | | | [address], | | | | | | [place] [address] | | | | + + + + + + | Platelet | 360Comment: Testing | 150 - 400 K/uL | EXTERNAL | | | Count | performed at [facility], [address] | | LAB | | | Plasma | [address], | | | | | | [place] [address] | | | | + + + + + + | MPV | 7.5Comment: Testing | fl | EXTERNAL | | | | performed at [facility], [address] | | LAB | | | | [address], | | | | | | [place] [address] | | | | + + + + + + | Differentia | AUTOMATEDComment: | | EXTERNAL | | | l Type | Testing performed at | | LAB | | | | [facility], [address] | | | | | | [place], [place] | | | | | | [address] | | | | + + + [...] | | | | | [place] [address] | | | | + + + + + + | K | 3.6Comment: Testing | 3.5 - 4.9 | EXTERNAL | | | | performed at [facility], [address] | mmol/L | LAB | | | | [address], | | | | | | [place] [address] | | | | + + + + + + | Cl | 100Comment: Testing | 99 - 109 mmol/L | EXTERNAL | | | | performed at [facility], [address] | | LAB | | | | [address], | | | | | | [place] [address] | | | | + + + + + + | CO2 | 25Comment: Testing | 23 - 32 mmol/L | EXTERNAL | | | | performed at [facility], [address] | | LAB | | | | [address], | | | | | | [place] [address] | | | | + + + + + + | Anion Gap | 9Comment: Testing | 5 - 20 mmol/L | EXTERNAL | | | | performed at [facility], [address] | | LAB | | | | [address], | | | | | | [place] [address] | | | | + + + + + + | Glucose, | 144 (H)Comment: Testing | 65 - 99 mg/dL | EXTERNAL | | | Fasting | performed at [facility], [address] | | LAB | | | | [address], | | | | | | [place] [address] | | | | + + + + + + | BUN | 15Comment: Testing | 8 - 25 mg/dL | EXTERNAL | | | | performed at [facility], [address] | | LAB | | | | [address], | | | | | | [place] [address] | | | | + + + + + + | Creatinine | 0.39 (L)Comment: Testing | 0.50 - 1.00 | EXTERNAL | | | | performed at [facility], [address] | mg/dL | LAB | | | | [address], | | | | | | [place] [address] | | | | + + + + + + | BUN/Creatin | 38Comment: Testing | | EXTERNAL | | | ine Ratio | performed at [facility], [address] | | LAB | | | [address], | | | | | | [place] [address] | | | | + + + + + + | Calcium | 8.0 (L)Comment: Testing | 8.5 - 10.2 | EXTERNAL | | | | performed at [facility], [address] | mg/dL | LAB | | | | [address], | | | | | | [place] [address] | | | | + + + [...] | | | | | | at [facility], [address] | | | | | | [address], | | | | | | [place] [address] | | | | + + + [...] | | | Fingerstick | performed at [facility];[address] | | LAB | | | | [address];[place] | | | | | | [address] | | | | + + + [...] EXTERNAL | | | | performed at [facility];888 | mmol/L | LAB | | | | [address];[place], [place] | | | | | | [address] | | | | + + + [...] EXTERNAL | | | | performed at [facility];888 | | LAB | | | | [address];[place], [place] | | | | | | [address] | | | | + + + [...] EXTERNAL | | | | performed at [facility] | | LAB | | | | [address];[place], [place] | | | | | | [address] | | | | + + + [...] | | | Fingerstick | performed at [facility];888 | | LAB | | | | [address];[place] | | | | | | [address] | | | | + + + [...] | | | Fingerstick | performed at [facility];888 | | LAB | | | | [address];[place] | | | | | | [address] | | | | + + + [...] EXTERNAL | | | | performed at [facility];888 | mmol/L | LAB | | | | [address];[place], [place] | | | | | | [address] | | | | + + + [...] EXTERNAL | | | | performed at [facility] | | LAB | | | | [address];[place], [place] | | | | | | [address] | | | | + + + [...] EXTERNAL | | | | performed at [facility];8 | | LAB | | | | [address];[place], [place] | | | | | | [address] | | | | + + + [...] | | | Fingerstick | performed at [facility];[address] | | LAB | | | | [address];[place], [place] | | | | | | [address] | | | | + + + [...] EXTERNAL | | | | performed at [facility];[address] | | LAB | | | | [address];[place], [place] | | | | | | [address] | | | | + + + + + + | Non- | 3.95Comment: Testing | 3.70 - 5.10 | EXTERNAL | | | Red Blood | performed at [facility];888 | M/uL | LAB | | | Cells | [address];[place] | | | | | Counted | [address] | | | | + + + + + + | Hemoglobin | 10.9 (L)Comment: Testing | 11.3 - 15.5 | EXTERNAL | | | | performed at [facility];888 | g/dL | LAB | | | | [address];[place] | | | | | | [address] | | | | + + + + + + | Hematocrit, | 32.0 (L)Comment: Testing | 34.0 - 46.0 % | EXTERNAL | | | POC | performed at [facility];[address] | | LAB | | | | [address];[place] | | | | | | [address] | | | | + + + + + + | MCV | 81.0Comment: Testing | 80.0 - 100.0 fl | EXTERNAL | | | | performed at [facility];[address] | | LAB | | | | [address];[place] | | | | | | [address] | | | | + + + + + + | MCH | 27.7Comment: Testing | 27.0 - 34.0 pg | EXTERNAL | | | | performed at [facility];[address] | | LAB | | | | [address];[place] | | | | | | [address] | | | | + + + + + + | MCHC | 34.2Comment: Testing | 32.0 - 35.5 | EXTERNAL | | | | performed at [facility];888 | g/dL | LAB | | | | [address];[place] | | | | | | [address] | | | | + + + + + + | RDW-CV | 42.9Comment: Testing | 37 - 53 fl | EXTERNAL | | | | performed at [facility];[address] | | LAB | | | | [address];[place] | | | | | | [address] | | | | + + + + + + | Platelet | 363Comment: Testing | 150 - 400 K/uL | EXTERNAL | | | Count | performed at [facility];888 | | LAB | | | Plasma | [address];[place] | | | | | | [address] | | | | + + + + + + | MPV | 7.1Comment: Testing | fl | EXTERNAL | | | | performed at [facility];[address] | | LAB | | | | [address];[place] | | | | | | [address] | | | | + + + + + + | Differentia | AUTOMATEDComment: | | EXTERNAL | | | l Type | Testing performed at | | LAB | | | | [facility];[address];[place] [address] | | | | + + + [...] EXTERNAL | | | | performed at [facility];[address] | | LAB | | | | [address];[place], [place] | | | | | | [address] | | | | + + + [...] EXTERNAL | | | | performed at [facility];[address] | | LAB | | | | [address];[place], [place] | | | | | | [address] | | | | + + + [...] EXTERNAL | | | | performed at [facility];888 | mmol/L | LAB | | | | [address];[place] | | | | | | [address] | | | | + + + + + + | K | 3.9Comment: Testing | 3.5 - 4.9 | EXTERNAL | | | | performed at [facility];888 | mmol/L | LAB | | | | [address];[place] | | | | | | [address] | | | | + + + + + + | Cl | 106Comment: Testing | 99 - 109 mmol/L | EXTERNAL | | | | performed at [facility];[address] | | LAB | | | | [address];[place] | | | | | | [address] | | | | + + + + + + | CO2 | 26Comment: Testing | 23 - 32 mmol/L | EXTERNAL | | | | performed at [facility];[address] | | LAB | | | | [address];[place] | | | | | | [address] | | | | + + + + + + | Anion Gap | 10Comment: Testing | 5 - 20 mmol/L | EXTERNAL | | | | performed at [facility];[address] | | LAB | | | | [address];[place] | | | | | | [address] | | | | + + + + + + | Glucose, | 160 (H)Comment: Testing | 65 - 99 mg/dL | EXTERNAL | | | Fasting | performed at [facility];[address] | | LAB | | | | [address];[place] | | | | | | [address] | | | | + + + + + + | BUN | 16Comment: Testing | 8 - 25 mg/dL | EXTERNAL | | | | performed at [facility];[address] | | LAB | | | | [address];[place] | | | | | | [address] | | | | + + + + + + | Creatinine | 0.61Comment: Testing | 0.50 - 1.00 | EXTERNAL | | | | performed at [facility];888 | mg/dL | LAB | | | | [address];[place] | | | | | | [address] | | | | + + + + + + | BUN/Creatin | 26Comment: Testing | | EXTERNAL | | | ine Ratio | performed at [facility];[address] | | LAB | | | | [address];[place] | | | | | | [address] | | | | + + + + + + | Calcium | 8.1 (L)Comment: Testing | 8.5 - 10.2 | EXTERNAL | | | | performed at [facility];888 | mg/dL | LAB | | | | [address];[place] | | | | | | [address] | | | | + + + [...] | | | | | | at [facility];[address];[place] [address] | | | | + + + [...] | | | Fingerstick | performed at [facility];[address] | | LAB | | | | [address];[place], [place] | | | | | | [address] | | | | + + + [...] | | | Fingerstick | performed at [facility];[address] | | LAB | | | | [address];[place], [place] | | | | | | [address] | | | | + + + [...] EXTERNAL | | | | performed at [facility];888 | mmol/L | LAB | | | | [address];[place], [place] | | | | | | [address] | | | | + + + [...] | | | Fingerstick | performed at [facility];[address] | | LAB | | | | [address];[place] | | | | | | [address] | | | | + + + [...] EXTERNAL | | | | performed at [facility];888 | mmol/L | LAB | | | | [address];[place], [place] | | | | | | [address] | | | | + + + [...] EXTERNAL | | | | performed at [facility];[address] | | LAB | | | | [address];[place] | | | | | | [address] | | | | + + + [...] EXTERNAL | | | | performed at [facility];[address] | | LAB | | | | [address];[place], [place] | | | | | | [address] | | | | + + + [...] EXTERNAL | | | | performed at [facility];[address] | | LAB | | | | [address];[place] | | | | | | [address] | | | | + + + + + + | Non- | 4.07Comment: Testing | 3.70 - 5.10 | EXTERNAL | | | Red Blood | performed at [facility];888 | M/uL | LAB | | | Cells | [address];[place] | | | | | Counted | [address] | | | | + + + + + + | Hemoglobin | 11.1 (L)Comment: Testing | 11.3 - 15.5 | EXTERNAL | | | | performed at [facility];888 | g/dL | LAB | | | | [address];[place] | | | | | | [address] | | | | + + + + + + | Hematocrit, | 32.9 (L)Comment: Testing | 34.0 - 46.0 % | EXTERNAL | | | POC | performed at [facility];[address] | | LAB | | | | [address];[place] | | | | | | [address] | | | | + + + + + + | MCV | 80.8Comment: Testing | 80.0 - 100.0 fl | EXTERNAL | | | | performed at [facility];[address] | | LAB | | | | [address];[place] | | | | | | [address] | | | | + + + + + + | MCH | 27.3Comment: Testing | 27.0 - 34.0 pg | EXTERNAL | | | | performed at [facility];[address] | | LAB | | | | [address];[place] | | | | | | [address] | | | | + + + + + + | MCHC | 33.8Comment: Testing | 32.0 - 35.5 | EXTERNAL | | | | performed at [facility];888 | g/dL | LAB | | | | [address];[place] | | | | | | [address] | | | | + + + + + + | RDW-CV | 41.1Comment: Testing | 37 - 53 fl | EXTERNAL | | | | performed at [facility];[address] | | LAB | | | | [address];[place] | | | | | | [address] | | | | + + + + + + | Platelet | 307Comment: Testing | 150 - 400 K/uL | EXTERNAL | | | Count | performed at [facility];[address] | | LAB | | | Plasma | [address];[place] | | | | | | [address] | | | | + + + + + + | MPV | 7.5Comment: Testing | fl | EXTERNAL | | | | performed at [facility];[address] | | LAB | | | | [address];[place] | | | | | | [address] | | | | + + + + + + | Differentia | AUTOMATEDComment: | | EXTERNAL | | | l Type | Testing performed at | | LAB | | | | [facility];[address];[place] [address] | | | | + + + [...] EXTERNAL | | | | performed at [facility];[address] | | LAB | | | | [address];[place] | | | | | | [address] | | | | + + + [...] LAB | | | | performed at [facility] | | | | | | [address];[place] | | | | | | [address] | | | | + + + [...] EXTERNAL | | | | performed at [facility];888 | mmol/L | LAB | | | | [address];[place] | | | | | | [address] | | | | + + + + + + | K | 3.7Comment: SLT | 3.5 - 4.9 | EXTERNAL | | | | HEMOLYSISTesting | mmol/L | LAB | | | | performed at [facility];[address] | | | | | | [address];[place] | | | | | | [address] | | | | + + + + + + | Cl | 106Comment: Testing | 99 - 109 mmol/L | EXTERNAL | | | | performed at [facility];[address] | | LAB | | | | [address];[place] | | | | | | [address] | | | | + + + + + + | CO2 | 26Comment: Testing | 23 - 32 mmol/L | EXTERNAL | | | | performed at [facility];[address] | | LAB | | | | [address];[place] | | | | | | [address] | | | | + + + + + + | Anion Gap | 10Comment: Testing | 5 - 20 mmol/L | EXTERNAL | | | | performed at [facility];[address] | | LAB | | | | [address];[place] | | | | | | [address] | | | | + + + + + + | Glucose, | 179 (H)Comment: Testing | 65 - 99 mg/dL | EXTERNAL | | | Fasting | performed at [facility];[address] | | LAB | | | | [address];[place] | | | | | | [address] | | | | + + + + + + | BUN | 16Comment: Testing | 8 - 25 mg/dL | EXTERNAL | | | | performed at [facility];[address] | | LAB | | | | [address];[place] | | | | | | [address] | | | | + + + + + + | Creatinine | 0.62Comment: Testing | 0.50 - 1.00 | EXTERNAL | | | | performed at [facility];888 | mg/dL | LAB | | | | [address];[place] | | | | | | [address] | | | | + + + + + + | BUN/Creatin | 26Comment: Testing | | EXTERNAL | | | ine Ratio | performed at [facility];[address] | | LAB | | | | [address];[place] | | | | | | [address] | | | | + + + + + + | Calcium | 7.9 (L)Comment: Testing | 8.5 - 10.2 | EXTERNAL | | | | performed at [facility];888 | mg/dL | LAB | | | | [address];[place] | | | | | | [address] | | | | + + + [...] | | | | | | at [facility];[address] [place] [address] | | | | | | Blvd;[place] [address] | | | | + + + [...] Rad Conversion - 11/20/2018 1:53 PM ISI [id number] yearsXR | | CHEST 1 VIEW05/08/2013 5:49 [...] | | | Fingerstick | performed at [facility];[address] | | LAB | | | | [address];[place], [place] | | | | | | [address] | | | | + + + [...] | | | Fingerstick | performed at [facility] | | LAB | | | | [address];[place] | | | | | | [address] | | | | + + + [...] | | | Fingerstick | performed at [facility];[address] | | LAB | | | | [address];[place], [place] | | | | | | [address] | | | | + + + [...] EXTERNAL | | | | performed at [facility];888 | mmol/L | LAB | | | | [address];[place] | | | | | | [address] | | | | + + + [...] | EXTERNAL LAB | | performed at [facility];[address] [place] [address];[place] [address] 027 NAP1 BI | | | 027 NAP1 BI PRESUMPTIVE NEGATIVE | | | Detection of 027 NAP1 BI strains of C. difficile is presumptive and | | | for epidemiological purposes and not intended to guide or monitor | | | treatment for C. difficile infections. Testing performed at [facility] | | | [facility];[place] [address] | | + + + + +---------+ [...] | | | Fingerstick | performed at [facility];[address] | | LAB | | | | [address];[place], [place] | | | | | | [address] | | | | + + + [...] EXTERNAL | | | | performed at [facility] | | LAB | | | | [address];[place] | | | | | | [address] | | | | + + + + + + | Non- | 4.28Comment: Testing | 3.70 - 5.10 | EXTERNAL | | | Red Blood | performed at [facility];888 | M/uL | LAB | | | Cells | [address];[place] | | | | | Counted | [address] | | | | + + + + + + | Hemoglobin | 11.8Comment: Testing | 11.3 - 15.5 | EXTERNAL | | | | performed at [facility];888 | g/dL | LAB | | | | [address];[place] | | | | | | [address] | | | | + + + + + + | Hematocrit, | 35.0Comment: Testing | 34.0 - 46.0 % | EXTERNAL | | | POC | performed at [facility];888 | | LAB | | | | [address];[place] | | | | | | [address] | | | | + + + + + + | MCV | 81.7Comment: Testing | 80.0 - 100.0 fl | EXTERNAL | | | | performed at [facility];888 | | LAB | | | | [address];[place] | | | | | | [address] | | | | + + + + + + | MCH | 27.6Comment: Testing | 27.0 - 34.0 pg | EXTERNAL | | | | performed at [facility];888 | | LAB | | | | [address];[place] | | | | | | [address] | | | | + + + + + + | MCHC | 33.8Comment: Testing | 32.0 - 35.5 | EXTERNAL | | | | performed at [facility];888 | g/dL | LAB | | | | [address];[place] | | | | | | [address] | | | | + + + + + + | RDW-CV | 42.4Comment: Testing | 37 - 53 fl | EXTERNAL | | | | performed at [facility];888 | | LAB | | | | [address];[place] | | | | | | [address] | | | | + + + + + + | Platelet | 260Comment: Testing | 150 - 400 K/uL | EXTERNAL | | | Count | performed at [facility];888 | | LAB | | | Plasma | [address];[place] | | | | | | [address] | | | | + + + + + + | MPV | 8.0Comment: Testing | fl | EXTERNAL | | | | performed at [facility];888 | | LAB | | | | [address];[place] | | | | | | [address] | | | | + + + + + + | Differentia | AUTOMATEDComment: | | EXTERNAL | | | l Type | Testing performed at | | LAB | | | | [facility];[address];[place] [address] | | | | + + + [...] EXTERNAL | | | | performed at [facility] | | LAB | | | | [address] [facility];[place], [place] | | | | | | [address] | | | | + + + [...] EXTERNAL | | | | performed at [facility];888 | | LAB | | | | [address];[place] | | | | | | [address] | | | | + + + [...] EXTERNAL | | | | performed at [facility];888 | mmol/L | LAB | | | | [address];[place] | | | | | | [address] | | | | + + + + + + | K | 3.7Comment: Testing | 3.5 - 4.9 | EXTERNAL | | | | performed at [facility];888 | mmol/L | LAB | | | | [address];[place] | | | | | | [address] | | | | + + + + + + | Cl | 108Comment: Testing | 99 - 109 mmol/L | EXTERNAL | | | | performed at [facility];888 | | LAB | | | | [address];[place] | | | | | | [address] | | | | + + + + + + | CO2 | 24Comment: Testing | 23 - 32 mmol/L | EXTERNAL | | | | performed at [facility];888 | | LAB | | | | [address];[place] | | | | | | [address] | | | | + + + + + + | Anion Gap | 13Comment: Testing | 5 - 20 mmol/L | EXTERNAL | | | | performed at [facility];888 | | LAB | | | | [address];[place] | | | | | | [address] | | | | + + + + + + | Glucose, | 125 (H)Comment: Testing | 65 - 99 mg/dL | EXTERNAL | | | Fasting | performed at [facility];888 | | LAB | | | | [address];[place] | | | | | | [address] | | | | + + + + + + | BUN | 12Comment: Testing | 8 - 25 mg/dL | EXTERNAL | | | | performed at [facility];888 | | LAB | | | | [address];[place] | | | | | | [address] | | | | + + + + + + | Creatinine | 0.76Comment: Testing | 0.50 - 1.00 | EXTERNAL | | | | performed at [facility];888 | mg/dL | LAB | | | | [address];[place] | | | | | | [address] | | | | + + + + + + | BUN/Creatin | 15Comment: Testing | | EXTERNAL | | | ine Ratio | performed at [facility];888 | | LAB | | | | [address];[place] | | | | | | [address] | | | | + + + + + + | Calcium | 7.9 (L)Comment: Testing | 8.5 - 10.2 | EXTERNAL | | | | performed at [facility];888 | mg/dL | LAB | | | | [address];[place] | | | | | | [address] | | | | + + + [...] | | | | | | at [facility];[address] | | | | | | [facility];[place] [address] | | | | + + + [...] | | | Fingerstick | performed at [facility];8 | | LAB | | | | [address];[place], [place] | | | | | | [address] | | | | + + + [...] | | | Fingerstick | performed at [facility];888 | | LAB | | | | [address];[place] | | | | | | [address] | | | | + + + [...] | | | Fingerstick | performed at [facility];888 | | LAB | | | | [address];[place] | | | | | | [address] | | | | + + + [...] | | | Fingerstick | performed at [facility];888 | | LAB | | | | [address];[place], [place] | | | | | | [address] | | | | + + + [...] | | | Fingerstick | performed at [facility];888 | | LAB | | | | [address];[place] | | | | | | [address] | | | | + + + [...] | | | Fingerstick | performed at [facility];888 | | LAB | | | | [address];[place], [place] | | | | | | [address] | | | | + + + [...] EXTERNAL | | | | performed at [facility];888 | mmol/L | LAB | | | | [address];[place] | | | | | | [address] | | | | + + + [...] EXTERNAL | | | | performed at [facility];888 | | LAB | | | | [address];[place], [place] | | | | | | [address] | | | | + + + [...] | | | Fingerstick | performed at [facility];888 | | LAB | | | | [address];[place] | | | | | | [address] | | | | + + + [...] | | | Fingerstick | performed at [facility];888 | | LAB | | | | [address];[place], [place] | | | | | | [address] | | | | + + + [...] | | | Fingerstick | performed at [facility];8 | | LAB | | | | [address];[place] | | | | | | [address] | | | | + + + [...] | | | Fingerstick | performed at [facility];888 | | LAB | | | | [address];[place] | | | | | | [address] | | | | + + + [...] | | | | | [place] [address] | | | | + + + + + + | Non- | 4.48Comment: Testing | 3.70 - 5.10 | EXTERNAL | | | Red Blood | performed at [facility], [address] | M/uL | LAB | | | Cells | [address], | | | | | Counted | [place] [address] | | | | + + + + + + | Hemoglobin | 11.7Comment: Testing | 11.3 - 15.5 | EXTERNAL | | | | performed at [facility], [address] | g/dL | LAB | | | | [address], | | | | | | [place] [address] | | | | + + + + + + | Hematocrit, | 36.6Comment: Testing | 34.0 - 46.0 % | EXTERNAL | | | POC | performed at [facility], [address] | | LAB | | | | [address], | | | | | | [place] [address] | | | | + + + + + + | MCV | 81.7Comment: Testing | 80.0 - 100.0 fl | EXTERNAL | | | | performed at [facility], [address] | | LAB | | | [address], | | | | | | [place] [address] | | | | + + + + + + | MCH | 26.1 (L)Comment: Testing | 27.0 - 34.0 pg | EXTERNAL | | | | performed at [facility], [address] | | LAB | | | | [address], | | | | | | [place] [address] | | | | + + + + + + | MCHC | 32.0Comment: Testing | 32.0 - 35.5 | EXTERNAL | | | | performed at [facility], [address] | g/dL | LAB | | | | [address], | | | | | | [place] [address] | | | | + + + + + + | RDW-CV | 39.8Comment: Testing | 37 - 53 fl | EXTERNAL | | | | performed at [facility], [address] | | LAB | | | | [address], | | | | | | [place] [address] | | | | + + + + + + | Platelet | 202Comment: Testing | 150 - 400 K/uL | EXTERNAL | | | Count | performed at [facility], [address] | | LAB | | | Plasma | [address], | | | | | | [place] [address] | | | | + + + + + + | MPV | 8.3Comment: Testing | fl | EXTERNAL | | | | performed at [facility], [address] | | LAB | | | | [address], | | | | | | [place] [address] | | | | + + + + + + | Differentia | AUTOMATEDComment: | | EXTERNAL | | | l Type | Testing performed at | | LAB | | | | [facility], [address] [facility] | | | | | | [place] | | | | | | [address] | | | | + + + [...] EXTERNAL | | | | performed at [facility];88 | | LAB | | | | [address];[place] | | | | | | [address] | | | | + + + [...] EXTERNAL | | | | performed at [facility];888 | | LAB | | | | [address];[place] | | | | | | [address] | | | | + + + [...] | EXTERNAL | | | A1c | [place] | | LAB | | | [...] | | | | | performed at [facility], [address] | | | | | [address] [facility], | | | | | | [place] [address] | | | | + + + [...] | | | | | performed at [facility], [address] | | | | | | [facility], | | | | | | [place] [address] | | | | + + + [...] EXTERNAL | | | | performed at [facility];888 | | LAB | | | | [address];[place], [place] | | | | | | [address] | | | | + + + [...] EXTERNAL | | | | performed at [facility];888 | mmol/L | LAB | | | | [address];[place] | | | | | | [address] | | | | + + + + + + | K | 3.7Comment: Testing | 3.5 - 4.9 | EXTERNAL | | | | performed at [facility];888 | mmol/L | LAB | | | | [address];[place] | | | | | | [address] | | | | + + + + + + | Cl | 109Comment: Testing | 99 - 109 mmol/L | EXTERNAL | | | | performed at [facility];888 | | LAB | | | | [address];[place] | | | | | | [address] | | | | + + + + + + | CO2 | 25Comment: Testing | 23 - 32 mmol/L | EXTERNAL | | | | performed at [facility];888 | | LAB | | | | [address];[place] | | | | | | [address] | | | | + + + + + + | Anion Gap | 11Comment: Testing | 5 - 20 mmol/L | EXTERNAL | | | | performed at [facility];888 | | LAB | | | | [address];[place] | | | | | | [address] | | | | + + + + + + | Glucose, | 97Comment: Testing | 65 - 99 mg/dL | EXTERNAL | | | Fasting | performed at [facility];888 | | LAB | | | | [address];[place] | | | | | | [address] | | | | + + + + + + | BUN | 6 (L)Comment: Testing | 8 - 25 mg/dL | EXTERNAL | | | | performed at [facility];888 | | LAB | | | | [address];[place] | | | | | | [address] | | | | + + + + + + | Creatinine | 0.70Comment: Testing | 0.50 - 1.00 | EXTERNAL | | | | performed at [facility];888 | mg/dL | LAB | | | | [address];[place] | | | | | | [address] | | | | + + + + + + | BUN/Creatin | 9Comment: Testing | | EXTERNAL | | | ine Ratio | performed at [facility];888 | | LAB | | | | [address];[place] | | | | | | [address] | | | | + + + + + + | Calcium | 7.5 (L)Comment: Testing | 8.5 - 10.2 | EXTERNAL | | | | performed at [facility];888 | mg/dL | LAB | | | | [address];[place] | | | | | | [address] | | | | + + + [...] | | | | | | at [facility];[address] [place] [address] | | | | | | [facility];[place] [address] | | | | + + + [...] | | | Fingerstick | performed at [facility];888 | | LAB | | | | [address];[place] | | | | | | [address] | | | | + + + [...] | | | Fingerstick | performed at [facility];888 | | LAB | | | | [address];[place] | | | | | | [address] | | | | + + + [...] | | | Fingerstick | performed at [facility];888 | | LAB | | | | [address];[place], [place] | | | | | | [address] | | | | + + + [...] | | | Fingerstick | performed at [facility];888 | | LAB | | | | [address];[place] | | | | | | [address] | | | | + + + [...] | | | Fingerstick | performed at [facility];888 | | LAB | | | | [address];[place], [place] | | | | | | [address] | | | | + + + [...] EXTERNAL | | | | performed at [facility];888 | mmol/L | LAB | | | | [address];[place] | | | | | | [address] | | | | + + + [...] EXTERNAL | | | | performed at [facility];888 | | LAB | | | | [address];[place], [place] | | | | | | [address] | | | | + + + [...] EXTERNAL | | | | performed at [facility];888 | | LAB | | | | [address];[place] | | | | | | [address] | | | | + + + [...] | Testing performed at | | | [facility];[address] [facility];[place] [address] CULTURE | | | NO GROWTH | | | Testing performed at [facility], [address] [facility], | | | [place] [address] REPORT STATUS | | | 05/06/2013 FINAL [...] EXTERNAL | | | | performed at [facility];[address] | | LAB | | | | [address];[place] | | | | | | [address] | | | | + + + + + + | RBC, UA | 16-25Comment: Testing | 0 - 5 /hpf | EXTERNAL | | | | performed at [facility];888 | | LAB | | | | [address];[place] | | | | | | [address] | | | | + + + + + + | Epithelial | 1-5Comment: Testing | /lpf | EXTERNAL | | | Cells | performed at [facility];888 | | LAB | | | | [address];[place] | | | | | | [address] | | | | + + + + + + | Bacteria, | 1+ (A)Comment: Testing | | EXTERNAL | | | UA | performed at [facility];888 | | LAB | | | | [address];[place] | | | | | | [address] | | | | + + + [...] EXTERNAL | | | | performed at [facility];[address] | | LAB | | | | [address];[place] | | | | | | [address] | | | | + + + + + + | Clarity, | CLOUDYComment: Testing | | EXTERNAL | | | Urine | performed at [facility];[address] | | LAB | | | | [address];[place] | | | | | | [address] | | | | + + + + + + | Specific | 1.015Comment: Testing | 1.001 - 1.035 | EXTERNAL | | | [place], | performed at [facility];888 | | LAB | | | Urine | [address];[place] | | | | | | [address] | | | | + + + + + + | Leukocyte | SMALL (A)Comment: | | EXTERNAL | | | Esterase, | Testing performed at | | LAB | | | Urine | [facility];[address];[place] [address] | | | | + + + + + + | Nitrite, | NEGATIVEComment: Testing | | EXTERNAL | | | Urine | performed at [facility];[address] | | LAB | | | | [address];[place] | | | | | | [address] | | | | + + + + + + | Urobilinoge | 0.2Comment: Testing | mg/dL | EXTERNAL | | | n, Urine | performed at [facility];[address] | | LAB | | | | [address];[place] | | | | | | [address] | | | | + + + + + + | Protein, | NEGATIVEComment: Testing | mg/dL | EXTERNAL | | | Urine | performed at [facility];888 | | LAB | | | | [address];[place] | | | | | | [address] | | | | + + + + + + | pH, Urine | 6.0Comment: Testing | 4.6 - 8.0 | EXTERNAL | | | | performed at [facility];888 | | LAB | | | | [address];[place] | | | | | | [address] | | | | + + + + + + | Blood, | LARGE (A)Comment: | | EXTERNAL | | | Urine | Testing performed at | | LAB | | | | [facility];[address];[place] [address] | | | | + + + + + + | Ketones | NEGATIVEComment: Testing | mg/dL | EXTERNAL | | | | performed at [facility];888 | | LAB | | | | [address];[place] | | | | | | [address] | | | | + + + + + + | Bilirubin, | NEGATIVEComment: Testing | | EXTERNAL | | | Urine | performed at [facility];888 | | LAB | | | | [address];[place] | | | | | | [address] | | | | + + + + + + | Glucose, | NEGATIVEComment: Testing | mg/dL | EXTERNAL | | | Urine | performed at [facility];888 | | LAB | | | | [address];[place] | | | | | | [address] | | | | + + + [...] | | | Fingerstick | performed at [facility];[address] | | LAB | | | | [address];[place], [place] | | | | | | [address] | | | | + + + [...] | | | Fingerstick | performed at [facility];888 | | LAB | | | | [address];[place] | | | | | | [address] | | | | + + + [...] | Testing performed | | | at [facility];[address] [place] [address];[place] [address] SPECIAL REQUESTS | | | RAC | | | Testing performed at [facility];[address] [place] [address];[place] [address] | | | CULTURE NO GROWTH 6 DAYS | | | Testing performed | | | at [facility], [address] [place] [address] REPORT STATUS | | | 05/11/2013 FINAL [...] | | | Fingerstick | performed at [facility];888 | | LAB | | | | [address] [facility];[place], [place] | | | | | | [address] | | | | + + + [...] EXTERNAL | | | | performed at [facility];888 | | LAB | | | | [address];[place] | | | | | | [address] | | | | + + + + + + | Non- | 4.48Comment: Testing | 3.70 - 5.10 | EXTERNAL | | | Red Blood | performed at [facility];888 | M/uL | LAB | | | Cells | [address];[place] | | | | | Counted | [address] | | | | + + + + + + | Hemoglobin | 12.4Comment: Testing | 11.3 - 15.5 | EXTERNAL | | | | performed at [facility];888 | g/dL | LAB | | | | [address];[place] | | | | | | [address] | | | | + + + + + + | Hematocrit, | 36.1Comment: Testing | 34.0 - 46.0 % | EXTERNAL | | | POC | performed at [facility];[address] | | LAB | | | | [address];[place] | | | | | | [address] | | | | + + + + + + | MCV | 80.6Comment: Testing | 80.0 - 100.0 fl | EXTERNAL | | | | performed at [facility];[address] | | LAB | | | | [address];[place] | | | | | | [address] | | | | + + + + + + | MCH | 27.7Comment: Testing | 27.0 - 34.0 pg | EXTERNAL | | | | performed at [facility];[address] | | LAB | | | | [address];[place] | | | | | | [address] | | | | + + + + + + | MCHC | 34.3Comment: Testing | 32.0 - 35.5 | EXTERNAL | | | | performed at [facility];888 | g/dL | LAB | | | | [address];[place] | | | | | | [address] | | | | + + + + + + | RDW-CV | 41.1Comment: Testing | 37 - 53 fl | EXTERNAL | | | | performed at [facility];[address] | | LAB | | | | [address];[place] | | | | | | [address] | | | | + + + + + + | Platelet | 211Comment: Testing | 150 - 400 K/uL | EXTERNAL | | | Count | performed at [facility];888 | | LAB | | | Plasma | [address];[place] | | | | | | [address] | | | | + + + + + + | MPV | 8.2Comment: Testing | fl | EXTERNAL | | | | performed at [facility];[address] | | LAB | | | | [address];[place] | | | | | | [address] | | | | + + + + + + | Differentia | AUTOMATEDComment: | | EXTERNAL | | | l Type | Testing performed at | | LAB | | | | [facility];[address];[place] [address] | | | | + + + [...] EXTERNAL | | | | performed at [facility];[address] | | LAB | | | | [address];[place], [place] | | | | | | [address] | | | | + + + [...] EXTERNAL | | | | performed at [facility] | | LAB | | | | [address] [facility];[place], [place] | | | | | | [address] | | | | + + + [...] EXTERNAL | | | | performed at [facility];888 | mmol/L | LAB | | | | [address];[place], [place] | | | | | | [address] | | | | + + + + + + | K | 3.4 (L)Comment: Testing | 3.5 - 4.9 | EXTERNAL | | | | performed at [facility];888 | mmol/L | LAB | | | | [address];[place] | | | | | | [address] | | | | + + + + + + | Cl | 104Comment: Testing | 99 - 109 mmol/L | EXTERNAL | | | | performed at [facility];[address] | | LAB | | | | [address];[place] | | | | | | [address] | | | | + + + + + + | CO2 | 27Comment: Testing | 23 - 32 mmol/L | EXTERNAL | | | | performed at [facility];[address] | | LAB | | | | [address];[place] | | | | | | [address] | | | | + + + + + + | Anion Gap | 11Comment: Testing | 5 - 20 mmol/L | EXTERNAL | | | | performed at [facility];[address] | | LAB | | | | [address];[place] | | | | | | [address] | | | | + + + + + + | Glucose, | 188 (H)Comment: Testing | 65 - 99 mg/dL | EXTERNAL | | | Fasting | performed at [facility];[address] | | LAB | | | | [address];[place] | | | | | | [address] | | | | + + + + + + | BUN | 3 (L)Comment: Testing | 8 - 25 mg/dL | EXTERNAL | | | | performed at [facility];[address] | | LAB | | | | [address];[place] | | | | | | [address] | | | | + + + + + + | Creatinine | 0.81Comment: Testing | 0.50 - 1.00 | EXTERNAL | | | | performed at [facility];888 | mg/dL | LAB | | | | [address];[place] | | | | | | [address] | | | | + + + + + + | BUN/Creatin | 4Comment: Testing | | EXTERNAL | | | ine Ratio | performed at [facility];[address] | | LAB | | | | [address];[place] | | | | | | [address] | | | | + + + + + + | Calcium | 7.6 (L)Comment: Testing | 8.5 - 10.2 | EXTERNAL | | | | performed at [facility];888 | mg/dL | LAB | | | | [address];[place] | | | | | | [address] | | | | + + + + + + | Protein, | 6.3Comment: Testing | 6.3 - 8.2 g/dL | EXTERNAL | | | Total | performed at [facility];[address] | | LAB | | | | [address];[place] | | | | | | [address] | | | | + + + + + + | Albumin | 2.2 (L)Comment: Testing | 3.6 - 5.0 g/dL | EXTERNAL | | | | performed at [facility];[address] | | LAB | | | | [address];[place] | | | | | | [address] | | | | + + + + + + | Globulin | 4.1Comment: Testing | 1.3 - 4.9 g/dL | EXTERNAL | | | | performed at [facility];[address] | | LAB | | | | [address];[place] | | | | | | [address] | | | | + + + + + + | A/G Ratio | 0.5 (L)Comment: Testing | 1.0 - 2.4 | EXTERNAL | | | | performed at [facility];[address] | | LAB | | | | [address];[place] | | | | | | [address] | | | | + + + + + + | Bilirubin | 0.5Comment: Testing | 0.1 - 1.5 mg/dL | EXTERNAL | | | Total | performed at [facility];[address] | | LAB | | | | [address];[place] | | | | | | [address] | | | | + + + + + + | ALP, | 99Comment: Testing | 35 - 115 U/L | EXTERNAL | | | External | performed at [facility];[address] | | LAB | | | | [address];[place] | | | | | | [address] | | | | + + + + + + | AST | 134 (H)Comment: Testing | 10 - 45 U/L | EXTERNAL | | | | performed at [facility];[address] | | LAB | | | | [address];[place] | | | | | | [address] | | | | + + + + + + | ALT | 157 (H)Comment: Testing | 10 - 65 U/L | EXTERNAL | | | | performed at [facility];[address] | | LAB | | | | [address];[place] | | | | | | [address] | | | | + + + [...] | | | | | | at [facility];[address] [place] [address] | | | | | | [facility];[place] [address] | | | | + + + [...] | Testing performed | | | at [facility];[address] [place] [id number] SPECIAL REQUESTS | | | RAC | | | Testing performed at [facility];[address] [place] [phone] | | | CULTURE NO GROWTH 6 DAYS | | | Testing performed | | | at [facility], [address] [place] [id number] REPORT STATUS | | | 05/11/2013 FINAL [...] | | | Fingerstick | performed at [facility];[address] | | LAB | | | | [address];[place] | | | | | | [address] | | | | + + + [...] EXTERNAL LAB | | Testing performed at [facility];[address] [place] [address];[place] [address] MRSA PCR | | | NEGATIVE Testing performed at | | | [facility];[address] [place] [address];[place] [address] | | + + + + +---------+ [...] | Testing performed at | | | [facility];[address] [facility];[place], [place] [address] GRAM STAIN | | | GREATER THAN 10 WBCS/LPF | | | LESS THAN 10 SEC/LPF | | | NO ORGANISMS SEEN | | | Testing performed at [facility], [address] | | [facility], [place] [address] CULTURE | | | NO GROWTH 2 DAYS | | | Testing performed at [facility], [address] [facility], | | | [place] [address] REPORT STATUS | | | 05/07/2013 FINAL [...] syndrome (ARDS) ([facility]) Other pulmonary insufficiency, not | | elsewhere classified, following trauma and surgery | + + | Influenza A Influenza with other respiratory manifestations | + + | Morbid obesity with BMI of 45.0-49.9, adult ([facility]) | + + | Poorly controlled diabetes mellitus ([facility]) Type II or unspecified type diabetes | | mellitus without mention of complication, not stated as uncontrolled | + + | Secondary bacterial pneumonia | + + documented in this encounter
--- OUTSIDE RECORDS SUMMARY | ~2019-11-30 | XMS | Encounter Summary ---
Demographics + + + | Address | [address] | | | [place] [address] | + + + | Home Phone [...] Team Providers + +------+ + | Care Aerial Survey Technician Name | Role | Phone | [...] + + | 04/05/ | Refill | [facility] | Elaine Andrews, | Medication Refill | | 2019 | | NEUROLOGY [address] | MD [address] | | | | | [address] | [address] | | | | | [place], [place] | [place] [address] | | | | | [address] | [phone] | | | | | [phone] | | | +--------+--------+ + + + [...] Miscellaneous Notes Telephone Encounter - Lashaun Scott Hardwood Floor Installer - 04/05/2019 1:19 PM PSTL ast visit: [...] | | | | Visit | | [address] | | | | | | [place] [address] | | | | | | [phone] | | | | | | | | +--------+ + + + + documented as of this encounter Visit Diagnoses Not on filedocumented in this encounter"
--- OUTSIDE RECORDS SUMMARY | ~2019-11-30 | XMS | Encounter Summary ---
Demographics + + + | Address | [address] | | | [place] [address] | + + + | Home Phone [...] Team Providers + +------+ + | Care Spring Repairer Helper Hand Name | Role | Phone | + +------+ + PCP | Unavailable | + +------+ + Encounter Details +--------+ + + + + | Date | Type | Department | Care Team | Description | +--------+ + + + + | 06/10/ | Emergency | [facility] | Edis Gudino MD | Cough; | | 2013 | | MEDICAL CENTER | [address] | Pneumonia | | | | EMERGENCY CENTER | [place] [address] | | | | | [address] | [phone] | | | | | [place], [place] | | | | | | [address] | | | | | | [phone] | | | +--------+ + + + [...] Notes by Alvaro Mcclain MD at 06/13/13 7126 Author: Alvaro Mcclain MD Service: (none) Author Type: Physician Filed: 06/13/131843 Date of Service: 06/13/130 Status: Signed Automatic Clipper: Alvaro Mcclain MD (Physician) Related Notes: Related Note by Everett Bryson PA-C (Physician Paper Conservator - Certified) f iled at 06/13/131633 I have reviewed the note and supervised the mid-level provider. Alvaro Mcclain MD 06/13/131843 Fabiola Naylor PA-C - 06/13/2013 4:30 PM PDT ED Provider Notes by Everett Bryson PA-C at 06/13/131629 Author: Eveertt Bryson PA-C Service: (none) Author Type: Physician Paper Conservator - Certi fied Filed: 06/13/131633 Date of Service: 06/13/131629 Status: Signed Automatic Clipper: Everett Bryson PA-C (Physician Paper Conservator - Certified) Related Notes: Cosigned by Alvaro Mcclain MD (Physician) filed at 06/13/131843 Procedures For culture results called patient's the blood culture results which grew and one set GRAM POSITIVE COCCI Patient went to the emergency room in [facility]. Provider stated that this is too e vasile for admission and she currently on the correct antibiotics for the bacteria. And was d ischarged. Patient states she is still not feeling any better. I suggested that she return to the [facility] for reevaluation. Patient states that if she is still not feeling any better by tonight she will return to [facility]. Everett Bryson PA-C 06/13/131633 Edis Ramirez MD - 06/10/2013 8:14 PM PSTFormatting of this note might be different from the origi nal. ED Provider Notes by Edis Gudino MD at 06/10/132013 Author: Edis Gudino MD Service: (none) Author Type: Physician Filed: 06/10/13 2204 Date of Service: 06/10/132013 Status: Signed Automatic Clipper: Edis Gudino MD (Physician) [facility] Department of Emergency Medicine History of Present [...] Procedure: TRACHEOSTOMY; Surgeon: Fabián Novoa MD; Location: [facility] MAIN OR; Service: ENT ; Laterality: N/A; [...] Value Ref Range Date/Time Complete Metabolic Panel [[id number]] (Abnormal) Collected:06/10/132033 Order Status:Completed Updated:06/10/132100 Specimen Information:Blood [...] >60 >60 mL/min/1.73m2 CBC w Auto Diff [[id number]] (Abnormal) Collected:06/10/132033 Order Status:Completed Updated:06/10/132042 Specimen Information:Blood [...] Documented by Edis Gudino MD (06/10/132126, [facility] Emergency Department, Emergency Medicine) This ED initial [...] soon as possible for a visit [address] [place] [address] [facility] Emergency Department If symptoms worsen [address] [place] [address] [id number] Discharge Medications: New Prescriptions BENZONATATE (TESSALON) 100 MG CAPSULE Take 1 capsule by mouth every 8 (eight) hours. LEVOFLOXACIN (LEVAQUIN) 750 MG TABLET Take 1 tablet by mouth daily. This document has been prepared with a voice recognition system. The possibility of "sound alike" mental health specialist errors, addition and/or deletions may occur. If there is any question p lease contact the author of the document. Additional Documentation Procedures Edis Gudino MD 06/10/13 8836 onversion Transactio n, Provider Unknown - 06/10/2013 8:09 PM PST ED Notes by Alli Giron RN at 06/10/132008 Author: Alli Giron RN Service: (none) Author Type: Registered Nurse Filed: 06/10/132009 Date of Service: 06/10/132008 Status: Signed Automatic Clipper: Alli Giron RN (Registered Nurse) Dr. Gudino @ assessing patient Alli Giron RN 06/10/132009 onver elaina Transaction, Provider Unknown - 06/10/2013 8:04 PM PST ED Notes by Alli Giron RN at 06/10/132003 Author: Alli Giron RN Service: (none) Author Type: Registered Nurse Filed: 06/10/132005 Date of Service: 06/10/132003 Status: Signed Automatic Clipper: Alli Giron RN (Registered Nurse) "The last week in April I was admitted at [facility] for pneumonia and the flu, then [...] D | | | | | | [place] [address] | | | | | | [phone] | | | | | | | [...] NEW | | | Testing performed at [facility], [address] [place] [address] | | | [address] CULTURE | | | STAPHYLOCOCCUS SPECIES, COAGULASE NEGATIVEAbnormal | | | GROWTH IN ONE OF TWO | | | BOTTLESAbnormal | | | TIME TO DETECTION: 26HRS 6MIN | | | POSSIBLE CONTAMINANT, CLINICAL CORRELATION REQUIRED. | | | Testing performed at | | | [facility], [address] [place] [address] REPORT STATUS | | | 06/13/2013 FINAL [...] EXTERNAL | | | | performed at [facility];888 | | LAB | | | | [address];[place] | | | | | | [address] | | | | + + + + + + | Non- | 4.44Comment: Testing | 3.70 - 5.10 | EXTERNAL | | | Red Blood | performed at [facility];888 | M/uL | LAB | | | Cells | [address];[place] | | | | | Counted | [address] | | | | + + + + + + | Hemoglobin | 11.9Comment: Testing | 11.3 - 15.5 | EXTERNAL | | | | performed at [facility];888 | g/dL | LAB | | | | [address];[place] | | | | | | [address] | | | | + + + + + + | Hematocrit, | 36.0Comment: Testing | 34.0 - 46.0 % | EXTERNAL | | | POC | performed at [facility];888 | | LAB | | | | [address];[place] | | | | | | [address] | | | | + + + + + + | MCV | 81.0Comment: Testing | 80.0 - 100.0 fl | EXTERNAL | | | | performed at [facility];888 | | LAB | | | | [address];[place] | | | | | | [address] | | | | + + + + + + | MCH | 26.9 (L)Comment: Testing | 27.0 - 34.0 pg | EXTERNAL | | | | performed at [facility];888 | | LAB | | | | [address];[place] | | | | | | [address] | | | | + + + + + + | MCHC | 33.1Comment: Testing | 32.0 - 35.5 | EXTERNAL | | | | performed at [facility];888 | g/dL | LAB | | | | [address];[place] | | | | | | [address] | | | | + + + + + + | RDW-CV | 43.3Comment: Testing | 37 - 53 fl | EXTERNAL | | | | performed at [facility];[address] | | LAB | | | | [address];[place] | | | | | | [address] | | | | + + + + + + | Platelet | 359Comment: Testing | 150 - 400 K/uL | EXTERNAL | | | Count | performed at [facility];888 | | LAB | | | Plasma | [address];[place] | | | | | | [address] | | | | + + + + + + | MPV | 7.3Comment: Testing | fl | EXTERNAL | | | | performed at [facility];[address] | | LAB | | | | [address];[place] | | | | | | [address] | | | | + + + + + + | Differentia | AUTOMATEDComment: | | EXTERNAL | | | l Type | Testing performed at | | LAB | | | | [facility];[address] | [address];[place] [address] | | | | + + + + + + | % Segmented | 46.4Comment: Testing | % | EXTERNAL | | | | performed at [facility];888 | | LAB | | | Neutrophils | [address];[place] | | | | | | [address] | | | | + + + + + + | % | 39.3Comment: Testing | % | EXTERNAL | | | Lymphocytes | performed at [facility];[address] | | LAB | | | | [address];[place] | | | | | | [address] | | | | + + + + + + | % Monocytes | 8.9Comment: Testing | % | EXTERNAL | | | | performed at [facility];[address] | | LAB | | | | [address];[place] | | | | | | [address] | | | | + + + + + + | % | 4.9Comment: Testing | % | EXTERNAL | | | Eosinophils | performed at [facility];[address] | | LAB | | | | [address];[place] | | | | | | [address] | | | | + + + + + + | % Basophils | 0.5Comment: Testing | % | EXTERNAL | | | | performed at [facility];[address] | | LAB | | | | [address];[place] | | | | | | [address] | | | | + + + + + + | Absolute | 3.5Comment: Testing | 1.9 - 7.4 K/uL | EXTERNAL | | | Segmented | performed at [facility];888 | | LAB | | | Neutrophils | [address];[place] | | | | | | [address] | | | | + + + + + + | Absolute | 2.9Comment: Testing | 1.0 - 3.9 K/uL | EXTERNAL | | | Lymphocytes | performed at [facility];[address] | | LAB | | | | [address];[place] | | | | | | [address] | | | | + + + + + + | Absolute | 0.7Comment: Testing | 0 - 0.8 K/uL | EXTERNAL | | | Monocytes | performed at [facility];[address] | | LAB | | | | [address];[place] | | | | | | [address] | | | | + + + + + + | Absolute | 0.4Comment: Testing | 0 - 0.5 K/uL | EXTERNAL | | | Eosinophils | performed at [facility];[address] | | LAB | | | | [address];[place] | | | | | | [address] | | | | + + + + + + | Absolute | 0.0Comment: Testing | 0 - 0.1 K/uL | EXTERNAL | | | Basophils | performed at [facility];[address] | | LAB | | | | [address];[place] | | | | | | [address] | | | | + + + [...] EXTERNAL | | | | performed at [facility];888 | mmol/L | LAB | | | | [address];[place] | | | | | | [address] | | | | + + + + + + | K | 3.5Comment: Testing | 3.5 - 4.9 | EXTERNAL | | | | performed at [facility];888 | mmol/L | LAB | | | | [address];[place] | | | | | | [address] | | | | + + + + + + | Cl | 100Comment: Testing | 99 - 109 mmol/L | EXTERNAL | | | | performed at [facility];[address] | | LAB | | | | [address];[place] | | | | | | [address] | | | | + + + + + + | CO2 | 31Comment: Testing | 23 - 32 mmol/L | EXTERNAL | | | | performed at [facility];[address] | | LAB | | | | [address];[place] | | | | | | [address] | | | | + + + + + + | Anion Gap | 9Comment: Testing | 5 - 20 mmol/L | EXTERNAL | | | | performed at [facility];[address] | | LAB | | | | [address];[place] | | | | | | [address] | | | | + + + + + + | Glucose, | 196 (H)Comment: Testing | 65 - 99 mg/dL | EXTERNAL | | | Fasting | performed at [facility];[address] | | LAB | | | | [address];[place] | | | | | | [address] | | | | + + + + + + | BUN | 11Comment: Testing | 8 - 25 mg/dL | EXTERNAL | | | | performed at [facility];[address] | | LAB | | | | [address];[place] | | | | | | [address] | | | | + + + + + + | Creatinine | 0.59Comment: Testing | 0.50 - 1.00 | EXTERNAL | | | | performed at [facility];888 | mg/dL | LAB | | | | [address];[place] | | | | | | [address] | | | | + + + + + + | BUN/Creatin | 19Comment: Testing | | EXTERNAL | | | ine Ratio | performed at [facility];[address] | | LAB | | | | [address];[place] | | | | | | [address] | | | | + + + + + + | Calcium | 8.9Comment: Testing | 8.5 - 10.2 | EXTERNAL | | | | performed at [facility];888 | mg/dL | LAB | | | | [address];[place] | | | | | | [address] | | | | + + + + + + | Protein, | 8.5 (H)Comment: Testing | 6.3 - 8.2 g/dL | EXTERNAL | | | Total | performed at [facility];[address] | | LAB | | | | [address];[place] | | | | | | [address] | | | | + + + + + + | Albumin | 3.2 (L)Comment: Testing | 3.6 - 5.0 g/dL | EXTERNAL | | | | performed at [facility];[address] | | LAB | | | | [address];[place] | | | | | | [address] | | | | + + + + + + | Globulin | 5.4 (H)Comment: Testing | 1.3 - 4.9 g/dL | EXTERNAL | | | | performed at [facility];[address] | | LAB | | | | [address];[place] | | | | | | [address] | | | | + + + + + + | A/G Ratio | 0.6 (L)Comment: Testing | 1.0 - 2.4 | EXTERNAL | | | | performed at [facility];[address] | | LAB | | | | [address];[place] | | | | | | [address] | | | | + + + + + + | Bilirubin | 0.3Comment: Testing | 0.1 - 1.5 mg/dL | EXTERNAL | | | Total | performed at [facility];[address] | | LAB | | | | [address];[place] | | | | | | [address] | | | | + + + + + + | ALP, | 105Comment: Testing | 35 - 115 U/L | EXTERNAL | | | External | performed at [facility];[address] | | LAB | | | | [address];[place] | | | | | | [address] | | | | + + + + + + | AST | 39Comment: Testing | 10 - 45 U/L | EXTERNAL | | | | performed at [facility];[address] | | LAB | | | | [address] | | | | | | [address] | | | | + + + + + + | ALT | 59Comment: Testing | 10 - 65 U/L | EXTERNAL | | | | performed at [facility];[address] | | LAB | | | | [address];[place] | | | | | | [address] | | | | + + + [...] | | | | | | at [facility];[address] [place] [address] | | | | | | [facility];[place] [address] | | | | + + + [...] DAYS | | | Testing performed at [facility], [address] | | | [place] [address] REPORT STATUS | | | 06/16/2013 FINAL [...]
--- OUTSIDE RECORDS SUMMARY | ~2019-11-30 | XMS | Encounter Summary ---
Demographics + + + | Address | [address] | | | [place] [address] | + + + | Home Phone [...] Providers + +------+ + | Care Milk Tanker Driver Name | Role | Phone | + +------+ + | Mynor Kam MD | PCP | | + +------+ + Encounter Details +--------+ + + + + | Date | Type | Department | Care Team | Description | +--------+ + + + + | 06/02/ | Orders Only | [facility] | Matt, | | | 2019 | | PULMONOLOGY [address] | [address], | | | | | [address] | [address] | | | | | [place], [place] | [place], | | | | | [address] | [place] [address] | | | | | [phone] | [phone] | | | | | | | [...] | | | | | [place] [address] | | | | | | [phone] | | | | | | | | +--------+ + + + + documented as of this encounter Visit Diagnoses Not on filedocumented in this encounter"
--- OUTSIDE RECORDS SUMMARY | ~2019-11-30 | XMS | Encounter Summary ---
Demographics + + + | Address | [address] | | | [place] [address] | + + + | Home Phone [...] Team Providers + +------+ + | Care Fulfillment Coordinator Name | Role | Phone | [...] + + | 11/16/ | Refill | [facility] | Elaine Andrews, | Medication Refill | | 2020 | | NEUROLOGY [address] | MD [address] | | | | | [address] | [address] | | | | | [place], [place] | [place] [address] | | | | | [address] | [phone] | | | | | [phone] | | | +--------+--------+ + + + [...] | | Visit | | [address] | | | | | | [place] [address] | | | | | | [phone] | | | | | | | | +--------+ + + + + documented as of this encounter Visit Diagnoses Not on filedocumented in this encounter"
--- OUTSIDE RECORDS SUMMARY | ~2019-11-30 | XMS | Encounter Summary ---
Demographics + + + | Address | [address] | | | [place] [address] | + + + | Home Phone [...] Team Providers + +------+ + | Care Stamp Collector Name | Role | Phone | + +------+ + PCP | Unavailable | + +------+ + Encounter Details +--------+ + + + + | Date | Type | Department | Care Team | Description | +--------+ + + + + | 07/19/ | Hospital | [facility] | Conversion | Pain | | 2015 | Encounter | CONVERSION DEP [address] | Transaction, | | | | | [address] | Provider Unknown | | | | | [place], [place] | [phone] | | | | | [address] | (Fax) | | | | | [phone] | | | +--------+ + + + [...] D | | | | | | [place] [address] | | | | | | [phone] | | | | | | | [...]
--- OUTSIDE RECORDS SUMMARY | ~2019-11-30 | XMS | Encounter Summary ---
Demographics + + + | Address | [address] | | | [place] [address] | + + + | Home Phone [...] Team Providers + +------+ + | Care Milking Machine Mechanic Name | Role | Phone | + +------+ + PCP | Unavailable | + +------+ + Encounter Details +--------+ + + + + | Date | Type | Department | Care Team | Description | +--------+ + + + + | 11/08/ | Emergency | [facility] | Patrick Huston, | Patient left before | | 2014 | | MEDICAL CENTER | MD [address] | treatment completed | | | | EMERGENCY CENTER | [place] | | | | | [address] | [address] | | | | | [place], [place] | [phone] | | | | | [address] | | | | | | [phone] | | | +--------+ + + + [...] 11/08/132155 Date of Service: 11/08/132155 Status: Signed Uranium Processing Supervisor: Florencia [place] RN (Registered Nurse) No belongings in pt room, no people noted in pt room. Florencia [place] RN 11/08/132155 onver elaina Transaction, Provider Unknown - 11/08/2013 9:52 PM PDT ED Notes by Marysol Kramer RN at 11/08/132151 Author: Marysol Kramer RN Service: (none) Author Type: Registered Nurse Filed: 11/08/132151 Date of Service: 11/08/132151 Status: Signed Uranium Processing Supervisor: Marysol Kramer RN (Registered Nurse) Patient left the room at this time. Marysol Kramer RN 11/08/132151 onver elaina Transaction, Provider Unknown - 11/08/2013 9:49 PM PDT ED Notes by Marysol Kramer RN at 11/08/132148 Author: Marysol Kramer RN Service: (none) Author Type: Registered Nurse Filed: 11/08/132151 Date of Service: 11/08/132148 Status: Signed Uranium Processing Supervisor: Marysol Kramer RN (Registered Nurse) Pt [...] 11/08/132142 Date of Service: 11/08/132141 Status: Signed Uranium Processing Supervisor: Florencia [place] RN (Registered Nurse) Pt caregiver at nurses station asking if pt can just go home, pt states she has a doctor's appt at nine tomorrow and wonders if she can have something orally for nausea and diarrhea Flornecia Lancaster RN 11/08/132142 ranshelton chisholm, Patrick Huynh MD - 11/08/2013 9:22 PM PDT ED Provider Notes by Patrick Huston MD at 11/08/132121 Author: Patrick Huston MD Service: (none) Author Type: Physician Filed: 11/09/13 0237 Date of Service: 11/08/132121 Status: Signed Uranium Processing Supervisor: Patrick Huston MD (Physician) [facility] Department of Emergency Medicine 9:22 PM [...] Procedure: TRACHEOSTOMY; Surgeon: Fabián Novoa MD; Location: [facility]; Service: ENT ; Laterality: [...] reviewed (Using the electronic record system of [facility], Hermila tirado reviewed the records [...] 11/08/132127 Date of Service: 11/08/132120 Status: Signed Uranium Processing Supervisor: Florencia Lancaster RN (Registered Nurse) Pt [...] | | | | Visit | | [facility] [address] | | | | | | [place] [address] | | | | | | [phone] | | | | | | | | +--------+ + + + + documented as of this encounter Visit Diagnoses + + | Diagnosis | + + | Patient left before treatment completed Personal history of noncompliance with | | medical treatment, presenting hazards to health | + + documented in this encounter
--- OUTSIDE RECORDS SUMMARY | ~2019-11-30 | XMS | Encounter Summary ---
Demographics + + + | Address | [address] | | | [place] [address] | + + + | Home Phone [...] Team Providers + +------+ + | Care Heating Fixture Tender Name | Role | Phone | [...] | | | | [place] | [phone] | | | | | [address] | | | | | | [phone] | | | +--------+ + + + [...] | | | | Visit | | [address] | | | | | | [place] [address] | | | | | | [phone] | | | | | | | | +--------+ + + + + documented as of this encounter Visit Diagnoses Not on filedocumented in this encounter"
--- OUTSIDE RECORDS SUMMARY | ~2019-11-30 | XMS | Encounter Summary ---
Demographics + + + | Address | [address] | | | [place] [address] | + + + | Home Phone [...] + +------+ + | Care Food Service Employee Name | Role | Phone | + [...] + + | 10/18/ | Telephone | [facility] | Elaine Andrews, | Appointment | | 2020 | | NEUROLOGY [address] | [address] | | | | | [address] | [address] | | | | | [place], [place] | [place] [address] | | | | | [address] | [phone] | | | | | [phone] | | | +--------+ + + + [...] - 10/19/2019 10:44 AM Bry, is calling [facility] [address] Appointment and would like a call back. Additional Call Details: Calling to [facility] 10/05 No Show/Virtual Visit Appointment. Can be reached at Home Number list in Chart Stated she will be available for calls in about 2 ho urs. If this is a symptom based call, was patient offered triage? Not Applicable If this is a symptom based call and you were unable to immediately transfer the call to a ainsley lloyd alcohol and drug counselor was caller made aware that if at [...] | | | | Visit | | [employer] [address] | | | | | | [place] [address] | | | | | | [phone] | | | | | | | | +--------+ + + + + documented as of this encounter Visit Diagnoses Not on filedocumented in this encounter"
--- OUTSIDE RECORDS SUMMARY | ~2019-11-30 | XMS | Encounter Summary ---
Demographics + + + | Address | [address] | | | [place] [address] | + + + | Home Phone [...] Team Providers + +------+ + | Care Well Head Pumper Name | Role | Phone | + [...] | | | | [place] | [phone] | | | | | [address] | | | | | | [phone] | | | +--------+ + + + [...] | | | | Visit | | [address] | | | | | | [place] [address] | | | | | | [phone] | | | | | | | | +--------+ + + + + documented as of this encounter Visit Diagnoses Not on filedocumented in this encounter"
--- OUTSIDE RECORDS SUMMARY | ~2019-11-30 | XMS | Encounter Summary ---
Demographics + + + | Address | [address] | | | [place] [address] | + + + | Home Phone [...] Providers + +------+ + | Care Associate Manager Name | Role | Phone | + +------+ + PCP | Unavailable | + +------+ + Encounter Details +--------+ + + + + | Date | Type | Department | Care Team | Description | +--------+ + + + + | 08/13/ | Orders Only | [facility] | Elaine Andrews, | | | 2019 | | [address] | MD Kim STOUT | | | | | [place], [place] | [address] | | | | | [address] | [place] [address] | | | | | [phone] | [phone] | | | | | | | [...] | | | | Visit | | [employer] [address] | | | | | | [place] [address] | | | | | | [phone] | | | | | | | [...]
--- OUTSIDE RECORDS SUMMARY | ~2019-11-30 | XMS | Encounter Summary ---
Demographics + + + | Address | [address] | | | [place] [address] | + + + | Home Phone [...] Team Providers + +------+ + | Care Network Systems Operator Name | Role | Phone | + +------+ + | Mynor Kam MD | PCP | | + +------+ + Encounter Details +--------+ + + + + | Date | Type | Department | Care Team | Description | +--------+ + + + + | 07/22/ | Telephone | [facility] | Enid Kaye | | | 2020 | | NEUROLOGY [address] | MD [address] | | | | | [place] | [place] | | | | | [place], [place] | [address] | | | | | [address] | | | | | | [phone] | | | +--------+ + + + [...] | | | | | [place] [address] | | | | | | [phone] | | | | | | | | +--------+ + + + + documented as of this encounter Visit Diagnoses Not on filedocumented in this encounter"
--- OUTSIDE RECORDS SUMMARY | ~2019-11-30 | XMS | Encounter Summary ---
Demographics + + + | Address | [address] | | | [place] [address] | + + + | Home Phone [...] + + | Author | [facility] | | | and [place] | + + + | Organization | [facility] | | [...] Team Providers + +------+ + | Care Liquor Merchant Name | Role | Phone | + [...] + + | 10/19/ | Virtual | [facility] | Elaine Andrews, | [facility] | | 2019 | Office | NEUROLOGY [address] | [address] | attentiveness | | | Visit | [address] | [address] | (Primary Dx); | | | | [place], [place] | [place] [address] | Dizziness and | | | | [address] | [phone] | giddiness; 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 Service was provided cvlu-cl-mcan with the patient via interactive videoconferencing Video start time 936 am Video end time 956 am Total time (in minutes) 25+ minutes including review of records, face to face time, documen tation including orders and finalizing care plan You have chosen to receive care through the use of telemedicine. Telemedicine enables [facility] care providers at different locations to [...] is wor lisa with a specialist at [facility]. She is not yet on the [...] | | | | Visit | | [facility] [address] | | | | | | [place] [address] | | | | | | [phone] | | | | | | | [...]
--- OUTSIDE RECORDS SUMMARY | ~2019-11-30 | XMS | Encounter Summary ---
Demographics + + + | Address | [address] | | | [place] [address] | + + + | Home Phone [...] + + + | Author | [facility] | | | and [place] | + + + | Organization | [facility] | | [...] Team Providers + +------+ + | Care Childhood Teacher Name | Role | Phone | [...] + + | 07/22/ | Refill | [facility] | Darryl Elaine, | Medication Refill | | 2019 | | NEUROLOGY [address] | [address] | (refill) | | | | [address] | [address] | | | | | [place], [place] | [place] [address] | | | | | [address] | [phone] | | | | | [phone] | | | +--------+--------+ + + + [...] Miscellaneous Notes Telephone Encounter - Lashaun Scott Customer Business Manager - 07/23/2019 11:24 AM PDTL ast visit: [...] [address] | | | | | | [place] [address] | | | | | | [phone] | | | | | | | | +--------+ + + + + documented as of this encounter Visit Diagnoses Not on filedocumented in this encounter"
--- OUTSIDE RECORDS SUMMARY | ~2019-11-30 | XMS | Encounter Summary ---
Demographics + + + | Address | [address] | | | [place] [address] | + + + | Home Phone [...] Author + + + | Author | [facility] | | | and [place] | + + + | Organization | [facility] | | | [...] Team Providers + +------+ + | Care Kitchen Operator Name | Role | Phone | [...] Provider Unknown | | | | | [place], [place] | [phone] | | | | | [address] | | | | | | [phone] | | | +--------+ + + + [...] D | | | | | | [place] [address] | | | | | | [phone] | | | | | | | [...]
--- OUTSIDE RECORDS SUMMARY | ~2019-11-30 | XMS | Clinical Summary ---
Demographics + + + | Address | [address] | | | [place] [address] | + + + | Home Phone [...] Team Providers + +------+ + | Care Tray Worker Name | Role | Phone | + +------+ + | Erlinda Oneal PA-C | PCP | | + +------+ + Source Comments FAB is fully live on both [facility] and [facility] Allergies Not on File Medications Not on [...] + +--------+ | MEDICARE | MEDICA | [id number] | 10/06/19 | [phone] | [address] | [address] | | | RE A & | | [address] | [address] | [address] | re | | | B | | sent | | [place] | | | | | | | | [address] | | + +--------+ +--------+ + +--------+ | MEDICAID [place] | OHP | [id number] | | [phone] | [address] | [address] | | | PLUS | | 019-Pr | 6 | [phone] | id | | | OPEN | | esent | | [place] | | | | CARD | | | | [id number] | | + +--------+ +--------+ + +--------+ [...] Mary | meena/Greg | | 1966 | [phone] | [place] [address] | | | fausto | | | 3 (Home) | | + +--------+ +--------+ + +"
--- NOTE | 2019-12-01 12:29 | EKG ---
[facility] [address] [facility] [place], [place] [address] Signed Normal sinus rhythm Normal ECG When compared with ECG of 29-SEP-2019 08:52, No significant change was found Confirmed by CASSIDY MCGHEE MD ([id number]) on 12/01/2019 12:29:35 PM Electronically Signed By: CASSIDY MCGHEE MD 12/01/19 1229 PATIENT NAME: FEDERICO SALMON Electrocardiogram DATE OF : 63 PHYSICIAN: CASSIDY MCGHEE MD REPORT #: [id number] REPORT IS CONFIDENTIAL AND NOT TO BE RELEASED WITHOUT AUTHORIZATION
== END 2019-11-30 15:25 | disposition home or self-care (01) ==
LOC: ED 12:45
DX: K72.90 Hepatic failure, unspecified without coma (principal); E72.20 Disorder of urea cycle metabolism, unspecified; E11.9 Type 2 diabetes mellitus without complications; J45.909 Unspecified asthma, uncomplicated; Z88.5 Allergy status to narcotic agent; Z79.899 Other long term (current) drug therapy; Z79.4 Long term (current) use of insulin
CPT/HCPCS: 80053; 82140; 83735; 84484; 85025; 93005; 93010; 99285-25

== ENCOUNTER 2019-12-08 08:30 | Emergency (ER) | payer MEDICARE, OTHER ==
[~2019-12-08] VITALS: Ht 167.6 cm; Wt 143.8 kg
--- OUTSIDE RECORDS SUMMARY | ~2019-12-08 | XMS | Encounter Summary ---
Demographics + + + | Address | [address] | | | [place] [address] | + + + | Home Phone | | + + + | Preferred Language | Unknown | + + + | Marital Status | | + + + | Pentecostalism Affiliation | Unknown | + + + | Race | White | + + + | Ethnic Group | Not or | + + + Author + + + | Author | [facility] | | | and [place] | + + + | Organization | [facility] | | | [...] Team Providers + +------+ + | Care Enrollment Manager Name | Role | Phone | + +------+ + PCP | Unavailable | + +------+ + Encounter Details +--------+ + + + + | Date | Type | Department | Care Team | Description | +--------+ + + + + | 11/04/ | Hospital | C GENERIC IP | Conversion | Pain | | 2013 | Encounter | CONVERSION [address] | Transaction, | | | | | [address] | Provider Unknown | | | | | [place], [place] | [phone] | | | | | [address] | | | | | | [phone] | | | +--------+ + + + [...] + + + +---------+ + + | albuterol 0.63 | Take 3 mLs by | 75 mL | 12 | 06/16/19 | | | mg/3 mL nebulizer | nebulization every 6 | | | 14 | 5 | | solution | (six) hours as | | | | | | | needed for Wheezing. | | | | | + + + +---------+ + + documented as of this encounter Plan of Treatment +--------+ + + + + | Date | Type | Specialty | Care Team | Description | +--------+ + + + + | 12/21/ Virtual | Neurology | Elaine Andrews, | | | 2019 | Office | | MD [address] | | | | Visit | | [address] | | | | | | [place] [address] | | | | | | [phone] | | | | | | | | +--------+ + + + + documented as of this encounter Procedures + +--------+ + + + | Procedure Name | Priori | Date/Time | Associated Diagnosis | Comments | | | ty | | | | + +--------+ + + + | CT ANGIOGRAM | Routin | 09/24/2013 | | Results for this | | PULMONARY | e | 11:17 PM | | procedure are in the | | | | PDT | | results section. | + +--------+ + + + documented in this encounter Results CT Angiogram Pulmonary w Contrast (09/24/2013 11:17 PM PDT) + + | Specimen | + [...] | Ermias Braxton Juan Ramon - 11/20/2018 1:53 PM PDT This is a non-reportable procedure | | without a radiologist report and isused for image storage only | + + documented in this encounter Visit Diagnoses + + | Diagnosis | + + | Pain Generalized pain | + + documented in this encounter"
--- OUTSIDE RECORDS SUMMARY | ~2019-12-08 | XMS | Encounter Summary ---
Demographics + + + | Address | [address] | | | [place] [address] | + + + | Home Phone | | + + + | Preferred Language | Unknown | + + + | Marital Status | | + + + | Adventist Affiliation | Unknown | + + + | Race | White | + + + | Ethnic Group | Not or | + + + Author + + + | Author | [facility] | | | and [place] | + + + | Organization | [facility] | | | [...] Team Providers + +------+ + | Care Senior Validation Engineer Name | Role | Phone | + +------+ + PCP | Unavailable | + +------+ + Encounter Details +--------+ + + + + | Date | Type | Department | Care Team | Description | +--------+ + + + + | 07/19/ | Hospital | [facility] | Conversion | Pain | | 2015 | Encounter | CONVERSION [address] | Transaction, | | | | | [address] | Provider Unknown | | | | | [place], [place] | [phone] | | | | | [phone] | (Fax) | | | | | [phone] | | | +--------+ + + + [...] D | | | | | | [place] [address] | | | | | | [phone] | | | | | | | [...]
--- OUTSIDE RECORDS SUMMARY | ~2019-12-08 | XMS | Encounter Summary ---
Demographics + + + | Address | [address] | | | [place] [address] | + + + | Home Phone [...] Team Providers + +------+ + | Care Head Up Operator Name | Role | Phone | + +------+ + PCP | Unavailable | + +------+ + Encounter Details +--------+ + + + + | Date | Type | Department | Care Team | Description | +--------+ + + + + | 06/10/ | Emergency | [facility] | Edis Gudino MD | Cough; | | 2013 | | MEDICAL [facility]ENTER | [address] | Pneumonia | | | | EMERGENCY CENTER | [place] [address] | | | | | [address] | [phone] | | | | | [place], [place] | | | | | | [address] | | | | | | [phone] | | | +--------+ + + + [...] Notes by Alvaro Mcclain MD at 06/13/13 7057 Author: Alvaro Mcclain MD Service: (none) Author Type: Physician Filed: 06/13/131843 Date of Service: 06/13/130 Status: Signed Parachute Marker: Alvaro Mcclain MD (Physician) Related Notes: Related Note by Everett Bryson PA-C (Physician Diversity Specialist - Certified) f iled at 06/13/131633 I have reviewed the note and supervised the mid-level provider. Alvaro Mcclain MD 06/13/131843 Fabiola Naylor PA-C - 06/13/2013 4:30 PM PDT ED Provider Notes by Everett Bryson PA-C at 06/13/131629 Author: Everett Bryson PA-C Service: (none) Author Type: Physician Diversity Specialist - Certi fied Filed: 06/13/131633 Date of Service: 06/13/131629 Status: Signed Parachute Marker: Everett Bryson PA-C (Physician Diversity Specialist - Certified) Related Notes: Cosigned by Alvaro Mcclain MD (Physician) filed at 06/13/131843 Procedures For culture results called patient's the blood culture results which grew and one set GRAM POSITIVE COCCI Patient went to the emergency room in [facility]. Provider stated that this is too e vasile for admission and she currently on the correct antibiotics for the bacteria. And was d ischarged. Patient states she is still not feeling any better. I suggested that she return to the [facility] for reevaluation. Patient states that if she is still not feeling any better by tonight she will return to [facility]. Everett Bryson PA-C 06/13/131633 Edis Ramirez MD - 06/10/2013 8:14 PM PSTFormatting of this note might be different from the origi nal. ED Provider Notes by Edis Gudino MD at 06/10/132013 Author: Edis Gudino MD Service: (none) Author Type: Physician Filed: 06/10/13 2204 Date of Service: 06/10/132013 Status: Signed Parachute Marker: Edis Gudino MD (Physician) [facility] Department of Emergency Medicine History [...] Procedure: TRACHEOSTOMY; Surgeon: Fabián Novoa MD; Location: [facility] MAIN OR; Service: ENT ; Laterality: N/A; [...] Value Ref Range Date/Time Complete Metabolic Panel [[id number]] (Abnormal) Collected:06/10/132033 Order Status:Completed Updated:06/10/132100 Specimen Information:Blood [...] >60 >60 mL/min/1.73m2 CBC w Auto Diff [[id number]] (Abnormal) Collected:06/10/132033 Order Status:Completed Updated:06/10/132042 Specimen Information:Blood [...] Interpretation Documented by Edis Gudino MD (06/10/132126, [facility] Emergency Department, Emergency Medicine) This [...] soon as possible for a visit [address] [place] [address] [facility] Emergency Department If symptoms worsen [address] [place] [address] [id number] Discharge Medications: New Prescriptions BENZONATATE (TESSALON) 100 MG CAPSULE Take 1 capsule by mouth every 8 (eight) hours. LEVOFLOXACIN (LEVAQUIN) 750 MG TABLET Take 1 tablet by mouth daily. This document has been prepared with a voice recognition system. The possibility of "sound alike" pilot boat deckhand errors, addition and/or deletions may occur. If there is any question p lease contact the author of the document. Additional Documentation Procedures Edis Gudino MD 06/10/13 4600 onversion Transactio n, Provider Unknown - 06/10/2013 8:09 PM PST ED Notes by Alli Giron RN at 06/10/132008 Author: Alli Giron RN Service: (none) Author Type: Registered Nurse Filed: 06/10/132009 Date of Service: 06/10/132008 Status: Signed Parachute Marker: Alli Giron RN (Registered Nurse) Dr. Gudino @ assessing patient Alli Giron RN 06/10/132009 onver elaina Transaction, Provider Unknown - 06/10/2013 8:04 PM PST ED Notes by Alli Giron RN at 06/10/132003 Author: Alli Giron RN Service: (none) Author Type: Registered Nurse Filed: 06/10/132005 Date of Service: 06/10/132003 Status: Signed Parachute Marker: Alli Giron RN (Registered Nurse) "The last week in April I was admitted at [facility] for pneumonia and the flu, then [...] D | | | | | | [place] [address] | | | | | | [phone] | | | | | | | [...] NEW | | | Testing performed at [facility], [address] [place] [address] | | | [address] CULTURE | | | STAPHYLOCOCCUS SPECIES, COAGULASE NEGATIVEAbnormal | | | GROWTH IN ONE OF TWO | | | BOTTLESAbnormal | | | TIME TO DETECTION: 26HRS 6MIN | | | POSSIBLE CONTAMINANT, CLINICAL CORRELATION REQUIRED. | | | Testing performed at | | | [facility], [address] [place] [address] REPORT STATUS | | | 06/13/2013 FINAL [...] Braxton Conversion - 11/20/2018 1:53 PM PDT GILMA [...] EXTERNAL | | | | performed at [facility] | | LAB | | | | [address];[place] | | | | | | [address] | | | | + + + + + + | Non- | 4.44Comment: Testing | 3.70 - 5.10 | EXTERNAL | | | Red Blood | performed at [facility] | M/uL | LAB | | | Cells | [address];[place] | | | | | Counted | [address] | | | | + + + + + + | Hemoglobin | 11.9Comment: Testing | 11.3 - 15.5 | EXTERNAL | | | | performed at [facility];[address] | g/dL | LAB | | | | [address];[place] | | | | | | [address] | | | | + + + + + + | Hematocrit, | 36.0Comment: Testing | 34.0 - 46.0 % | EXTERNAL | | | POC | performed at [facility];[address] | | LAB | | | | [address];[place] | | | | | | [address] | | | | + + + + + + | MCV | 81.0Comment: Testing | 80.0 - 100.0 fl | EXTERNAL | | | | performed at [facility];[address] | | LAB | | | | [address];[place] | | | | | | [address] | | | | + + + + + + | MCH | 26.9 (L)Comment: Testing | 27.0 - 34.0 pg | EXTERNAL | | | | performed at [facility];[address] | | LAB | | | | [address];[place] | | | | | | [address] | | | | + + + + + + | MCHC | 33.1Comment: Testing | 32.0 - 35.5 | EXTERNAL | | | | performed at [facility];[address] | g/dL | LAB | | | | [address];[place] | | | | | | [address] | | | | + + + + + + | RDW-CV | 43.3Comment: Testing | 37 - 53 fl | EXTERNAL | | | | performed at [facility];[address] | | LAB | | | | [address];[place] | | | | | | [address] | | | | + + + + + + | Platelet | 359Comment: Testing | 150 - 400 K/uL | EXTERNAL | | | Count | performed at [facility];[address] | | LAB | | | Plasma | [address];[place] | | | | | | [address] | | | | + + + + + + | MPV | 7.3Comment: Testing | fl | EXTERNAL | | | | performed at [facility];[address] | | LAB | | | | [address];[place] | | | | | | [address] | | | | + + + + + + | Differentia | AUTOMATEDComment: | | EXTERNAL | | | l Type | Testing performed at | | LAB | | | | [facility];[address];[place] [address] | | | | + + + + + + | % Segmented | 46.4Comment: Testing | % | EXTERNAL | | | | performed at [facility];[address] | | LAB | | | Neutrophils | [address];[place] | | | | | | [address] | | | | + + + + + + | % | 39.3Comment: Testing | % | EXTERNAL | | | Lymphocytes | performed at [facility];[address] | | LAB | | | | [address];[place] | | | | | | [address] | | | | + + + + + + | % Monocytes | 8.9Comment: Testing | % | EXTERNAL | | | | performed at [facility];[address] | | LAB | | | | [address] | | | | | | [address] | | | | + + + + + + | % | 4.9Comment: Testing | % | EXTERNAL | | | Eosinophils | performed at [facility];[address] | | LAB | | | | [address] | | | | | | [address] | | | | + + + + + + | % Basophils | 0.5Comment: Testing | % | EXTERNAL | | | | performed at [facility];[address] | | LAB | | | | [address];[place] | | | | | | [address] | | | | + + + + + + | Absolute | 3.5Comment: Testing | 1.9 - 7.4 K/uL | EXTERNAL | | | Segmented | performed at [facility];[address] | | LAB | | | Neutrophils | [address];[place] | | | | | | [address] | | | | + + + + + + | Absolute | 2.9Comment: Testing | 1.0 - 3.9 K/uL | EXTERNAL | | | Lymphocytes | performed at [facility];[address] | | LAB | | | | [address];[place] | | | | | | [address] | | | | + + + + + + | Absolute | 0.7Comment: Testing | 0 - 0.8 K/uL | EXTERNAL | | | Monocytes | performed at [facility];[address] | | LAB | | | | [address];[place] | | | | | | [address] | | | | + + + + + + | Absolute | 0.4Comment: Testing | 0 - 0.5 K/uL | EXTERNAL | | | Eosinophils | performed at [facility];[address] | | LAB | | | | [address];[place] | | | | | | [address] | | | | + + + + + + | Absolute | 0.0Comment: Testing | 0 - 0.1 K/uL | EXTERNAL | | | Basophils | performed at [facility];[address] | | LAB | | | | [address];[place] | | | | | | [address] | | | | + + + [...] EXTERNAL | | | | performed at [facility];[address] | mmol/L | LAB | | | | [address];[place] | | | | | | [address] | | | | + + + + + + | K | 3.5Comment: Testing | 3.5 - 4.9 | EXTERNAL | | | | performed at [facility];[address] | mmol/L | LAB | | | | [address];[place] | | | | | | [address] | | | | + + + + + + | Cl | 100Comment: Testing | 99 - 109 mmol/L | EXTERNAL | | | | performed at [facility];[address] | | LAB | | | | [address];[place] | | | | | | [address] | | | | + + + + + + | CO2 | 31Comment: Testing | 23 - 32 mmol/L | EXTERNAL | | | | performed at [facility];[address] | | LAB | | | | [address];[place] | | | | | | [address] | | | | + + + + + + | Anion Gap | 9Comment: Testing | 5 - 20 mmol/L | EXTERNAL | | | | performed at [facility];[address] | | LAB | | | | [address];[place] | | | | | | [address] | | | | + + + + + + | Glucose, | 196 (H)Comment: Testing | 65 - 99 mg/dL | EXTERNAL | | | Fasting | performed at [facility];[address] | | LAB | | | | [address] | | | | | | [address] | | | | + + + + + + | BUN | 11Comment: Testing | 8 - 25 mg/dL | EXTERNAL | | | | performed at [facility];[address] | | LAB | | | | [address] | | | | | | [address] | | | | + + + + + + | Creatinine | 0.59Comment: Testing | 0.50 - 1.00 | EXTERNAL | | | | performed at [facility];[address] | mg/dL | LAB | | | | [address] | | | | | | [address] | | | | + + + + + + | BUN/Creatin | 19Comment: Testing | | EXTERNAL | | | ine Ratio | performed at [facility];[address] | | LAB | | | | [address] | | | | | | [address] | | | | + + + + + + | Calcium | 8.9Comment: Testing | 8.5 - 10.2 | EXTERNAL | | | | performed at [facility];[address] | mg/dL | LAB | | | | [address];[place] | | | | | | [address] | | | | + + + + + + | Protein, | 8.5 (H)Comment: Testing | 6.3 - 8.2 g/dL | EXTERNAL | | | Total | performed at [facility];[address] | | LAB | | | | [address] | | | | | | [address] | | | | + + + + + + | Albumin | 3.2 (L)Comment: Testing | 3.6 - 5.0 g/dL | EXTERNAL | | | | performed at [facility];[address] | | LAB | | | | [address] | | | | | | [address] | | | | + + + + + + | Globulin | 5.4 (H)Comment: Testing | 1.3 - 4.9 g/dL | EXTERNAL | | | | performed at [facility];[address] | | LAB | | | | [address] | | | | | | [address] | | | | + + + + + + | A/G Ratio | 0.6 (L)Comment: Testing | 1.0 - 2.4 | EXTERNAL | | | | performed at [facility];[address] | | LAB | | | | [address];[place] | | | | | | [address] | | | | + + + + + + | Bilirubin | 0.3Comment: Testing | 0.1 - 1.5 mg/dL | EXTERNAL | | | Total | performed at [facility];[address] | | LAB | | | | [address] | | | | | | [address] | | | | + + + + + + | ALP, | 105Comment: Testing | 35 - 115 U/L | EXTERNAL | | | External | performed at [facility];[address] | | LAB | | | | [address] | | | | | | [address] | | | | + + + + + + | AST | 39Comment: Testing | 10 - 45 U/L | EXTERNAL | | | | performed at [facility];[address] | | LAB | | | | [address] | | | | | | [address] | | | | + + + + + + | ALT | 59Comment: Testing | 10 - 65 U/L | EXTERNAL | | | | performed at [facility];[address] | | LAB | | | | [address] | | | | | | [address] | | | | + + + [...] | | | | | | at [facility];[address] [place] [address] | | | | | | [facility];[place] [address] | | | | + + + [...] DAYS | | | Testing performed at [facility], [address] | | | [place] [address] REPORT STATUS | | | 06/16/2013 FINAL [...]
--- OUTSIDE RECORDS SUMMARY | ~2019-12-08 | XMS | Encounter Summary ---
Demographics + + + | Address | [address] | | | [place] [address] | + + + | Home Phone [...] Team Providers + +------+ + | Care Sinker Puller Name | Role | Phone | + +------+ + PCP | Unavailable | + +------+ + Encounter Details +--------+ + + + + | Date | Type | Department | Care Team | Description | +--------+ + + + + | 07/19/ | Hospital | [facility] | Conversion | Pain | | 2015 | Encounter | CONVERSION [address]P [address] | Transaction, | | | | | [address] | Provider Unknown | | | | | [place], [place] | [phone] | | | | | [phone] | (Fax) | | | | | [phone] | | | +--------+ + + + [...] D | | | | | | [place] [address] | | | | | | [phone] | | | | | | | [...]
--- OUTSIDE RECORDS SUMMARY | ~2019-12-08 | XMS | Encounter Summary ---
Demographics + + + | Address | [address] | | | [place] [address] | + + + | Home Phone | | + + + | Preferred Language | Unknown | + + + | Marital Status | | + + + | Buddhism Affiliation | Unknown | + + + [...] Team Providers + +------+ + | Care Butter Wrapper Name | Role | Phone | + +------+ + PCP | Unavailable | + +------+ + Encounter Details +--------+ + + + + | Date | Type | Department | Care Team | Description | +--------+ + + + + | 05/05/ | Hospital | [facility] | Estefania Brannon DO | Acute respiratory | | 2013 - | Encounter | [facility] | [address] | failure (HCC); | | | | INTENSIVE CARE UNIT | [place] [address] | Abnormal LFTs (liver | | 05/14/ | | [address] | [phone] | function tests); | | 2013 | | [place], [place] | | Acute respiratory | | | | [address] | | distress syndrome | | | | [phone] | | (ARDS) ([facility]); | | | | | | Influenza A; Morbid | | | | | | obesity with BMI of | | | | | | 45.0-49.9, adult | | | | | | ([facility]); Poorly | | | | | | controlled diabetes | | | | | | mellitus ([facility]); | | | | | | [...] Al Houston MD Service: (none) Author Type: Hydrogeology Professor Filed: 05/14/1343 Date of Service: 05/14/13832 Status: Signed Director Business: Al Houston MD (Physician) [facility] Service: Hydrogeology Professor Discharge Summary Gilma Salmon 47 y.o. Date [...] ventilation initiated on May 01, 2013 at [facility]. HOSPITAL COURSE: May 06, 2013: [...] Procedure: TRACHEOSTOMY; Surgeon: Shalonda Novoa MD; Location: [facility] MAIN OR; Service: ENT ; Laterality: N/A; move to OR table, need harmonic scalpel with focus HP, patient [address] Medication List As of 05/14/2013 8:33 AM Condition on Discharge: Stable, to [facility] [place] Code Status: Full Code Primary Care Physician: [...] Date of Service: 05/14/13 1322 Status: Signed Director Business: Bryanna Keenan RN (Registered Nurse) Transport here [...] Date of Service: 05/14/13 1043 Status: Signed Director Business: Bryanna Keenan RN (Registered Nurse) Report given to Maggy at [facility] onver elaina Transaction, Provider Unknown - 05/14/2013 8:33 AM PST Case Management by MARTHA Kunz at 05/14/13 0833 Author: MARTHA Kunz Service: (none) Author Type: Retail Training Manager Filed: 05/14/13 0834 Date of Service: 05/14/13832 Status: Signed Director Business: MARTHA Kunz (Retail Training Manager) Received t/c from [facility] with [employer]. AMbulance Auth # is [id number] for [facility]. Called [facility] to verify their picker box operator time (12:30) and also called pt's bharath white to verify that pt is being transferred today. onver elaina Transaction, Provider Unknown - 05/14/2013 8:31 AM PST Case Management by MARTHA Kunz at 05/14/13830 Author: MARTHA Kunz Service: (none) Author Type: Retail Training Manager Filed: 05/14/13831 Date of Service: 05/14/13830 Status: Signed Director Business: MARTHA Kunz (Retail Training Manager) Disposition: [facility] Transportation:[facility] [phone] All orders, signed AVS, and prescriptions have [...] Al Houston MD Service: (none) Author Type: Hydrogeology Professor Filed: 05/14/13840 Date of Service: 05/14/13827 Status: Addendum Director Business: Al Houston MD (Physician) Related Notes: Original Note by Al Houston MD (Physician) filed at 05/14/13832 [facility]: Hydrogeology Professor Progress Note Gilma Salmon 47 y.o. Hospital [...] ventilation initiated on May 01, 2013 at [facility]. ICU TIMELINE:The patient is admitted [...] Procedure: TRACHEOSTOMY; Surgeon: Shalonda Novoa MD; Location: [facility] MAIN OR; Service: ENT [...] original. Progress Notes by Erlinda David MS CCC-BLOCKMASON at 05/13/13 5058 Author: Erlinda David MS CCC-BLOCKMASON Service: (none) Author Type: Speech and Electrical Research Engineer ologist Filed: 05/13/13 1604 Date of Service: 05/13/13 1603 Status: Signed Director Business: Erlinda David MS CCC-BLOCKMASON (Speech and Language Pathologist) 05/13/13 1500 General [...] are being met at this time. Rec BLOCKMASON f/u at place of d/c. onver elaina Transaction, Provider Unknown - 05/13/2013 3:43 PM PST Case Management by MARTHA Kunz at 05/13/13 1543 Author: MARTHA Kunz Service: (none) Author Type: Retail Training Manager Filed: 05/13/13 8464 Date of Service: 05/13/13 154 Status: Signed Director Business: MARTHA Kunz (Retail Training Manager) Received t/c from [facility] with [facility] ([phone]). He is requesting a return call if f or some reason pt is not able to transfer to [place] tomorrow. His crew plans to wrrive here between 11:30-12:00 if not called. Informed Unit INSPECTOR LINE and Lead RN. Al Gonzalez MD - 05/13/2013 3:43 PM PSTFormatting of this note might be different from the o riginal. Progress Notes by Al Houston MD at 05/13/13 2743 Author: Al Houston MD Service: (none) Author Type: Hydrogeology Professor Filed: 05/13/13 1555 Date of Service: 05/13/13 1543 Status: Signed Director Business: Al Houston MD (Physician) [facility]: Hydrogeology Professor Progress Note Gilma Salmon 47 y.o. Hospital [...] ventilation initiated on May 01, 2013 at [facility]. ICU TIMELINE:The patient is admitted [...] Procedure: TRACHEOSTOMY; Surgeon: Shalonda Novoa MD; Location: [facility] MAIN OR; Service: ENT [...] Date of Service: 05/13/13 1518 Status: Signed Director Business: Juanita Herman RN (Registered Nurse) Report received from HERIBERTO Bartlett and care assumed. Pt resting in bed with no complaints at t his time. JUANITA HERMAN 05/13/2013 3:19 PM onver elaina Transaction, Provider Unknown - 05/13/2013 1:35 PM PST Progress Notes by Edis Ken PT at 05/13/13 1335 Author: Edis Ken PT Service: (none) Author Type: Physical Therapist Filed: 05/13/13 1695 Date of Service: 05/13/13 1335 Status: Signed Director Business: Edis Ken PT (Physical Therapist) 05/13/13 1335 [...] therapy (Pt. to d/c to LTAC in [place] tomorrow per notes) Equipment Recommended (May need [...] therapy (Pt. to d/c to LTAC in [place] tomorrow per notes) Equipment Recommended (May need use of 4WW initially for UE support) Prior Function Level of [place] Independent with functional mobility;Independent with ADLs;Independe nt [...] Author: MARTHA Kunz Service: (none) Author Type: Retail Training Manager Filed: 05/13/13 1048 Date of Service: 05/13/131041 Status: Signed Director Business: MARTHA Kunz (Retail Training Manager) Met with pt and family to update. Pt has now made the decision to go to [facility] in [place] where her mother and sister live. Spoke with [facility] liason who states that they are working on insurance auth. They are prepared to accept pt tomorrow to the [facility]. RN-RN report # is [phone] x [phone], report # is [phone] (Dr. Alli brown) . Made arrangements with [facility] [phone] to picker box operator pt at 11:30 tomorrow morning. Transfer work completed and placed on pt chart. onver elaina Transaction, Provider Unknown - 05/13/2013 9:26 AM PST Case Management by MARTHA Kunz at 05/13/13925 Author: MARTHA Kunz Service: (none) Author Type: Retail Training Manager Filed: 05/13/13 1021 Date of Service: 05/13/13925 Status: Addendum Director Business: MARTHA Kunz (Retail Training Manager) Related Notes: Original Note by MARTHA Kunz (Retail Training Manager) filed at 05/13/13948 Spoke with pt's insurance trimming caser Kathleen ([phone]) and Lupe ([phone]) t o discuss LTAC transfer. I also spoke with Dara Mace from [facility] who states abi t beds are opening up. Dara will get back to me juan as to whether the beds will be avail able tomorrow or Friday. [facility]. Wa iting to hear back about from insurance as to whether they will agree to letting pt stay in [facility] until Friday if bed is not available at [facility] until Friday. Called [facility] to notify that there may be a transport Friday/Friday. Informed family of current issues r egarding bed availability and insurance auth. Received t/c from Gregor Mccain at [facility] (ph: [phone], fax:[phone]) indicating th at they have a bed available at their [facility]. He is aware that the [facility] is [facility] due to proximity. Monroe Mohan MD - 05/12/2013 6:57 PM PSTFormatting of this note might be different from the origi nal. Progress Notes by Shalonda Novoa MD at 05/12/131856 Author: Shalonda Novoa MD Service: (none) Author Type: Physician Filed: 05/12/131913 Date of Service: 05/12/131856 Status: Signed Director Business: Shalonda Novoa MD (Physician) [facility]: Otolaryngology Progress Note Hospital Day: LOS: 7 days Post-Op Day: 1 Day Post-Op SUBJECTIVE The patient is a 47 y.o. female with morbid obesity who was transferred to [facility] on Apr with the diagnosis of ARDS with influenza A, on Tamiflu. She also has a histor y of poorly controlled diabetes type 2, asthma and bronchitis with prior DVT. The patient wa s admitted on May 05, 2013. Mechanical ventilation initiated on May 01, 2013 at [facility]. A-line placed right radial artery [...] sulfate, nystatin, ny statin, ondansetron, ondansetron, pancrelipase (Gcq-Cvwy-Yznn) 10,000 units, petrolatum, jerri sphorus, potassium chloride, [...] 05/12/131756 Date of Service: 05/12/131749 Status: Signed Director Business: Esperanza Gutierrez MD (Physician) [facility]: Hydrogeology Professor Progress Note Gilma Salmon 47 y.o. Hospital [...] ventilation initiated on May 01, 2013 at [facility]. ICU TIMELINE:The patient is admitted [...] care as above. Family has met with [facility] repr esentative and plan to go to that facility once patient is stable for discharge. Code Status: Full Code *Please bill 45 minutes of critical care time spent evaluating the patient, reviewing the d trish and formulating a plan exclusive of all other procedures. Esperanza Gutierrez MD 05/12/2013 5:50 PM Ash Padilla, MS [facility]-BLOCKMASON - 05/12/2013 4:29 PM PSTFormatting of this note might be different from th e original. Progress Notes by Ysabel Lucero MS CCC-BLOCKMASON at 05/12/13 1629 Author: Ysabel Lucero MS CCC-BLOCKMASON Service: (none) Author Type: Speech and Language Pathol ogist Filed: 05/12/13 1633 Date of Service: 05/12/13 1629 Status: Signed Director Business: Ysabel Lucero MS CCC-BLOCKMASON (Speech and Language Pathologist) 05/12/13 1628 BLOCKMASON Last Visit BLOCKMASON Received On 05/12/13 Requires BLOCKMASON Follow Up On hold (BLOCKMASON to complete eval in am) Pt and family given communication board so pt is able to indicate what she needs/wants. Pt indicated she is too sick and didn't want to participate in an eval today. RN reports pt ceja s been throwing up through trach, BLOCKMASON to con't to follow for possible pmv placement when pt is appropriate. YSABEL LUCERO MS CCC-BLOCKMASON 05/12/2013 onversion Saldana saction, Provider Unknown - 05/12/2013 2:35 PM PSTFormatting of this note might be differen t from the original. Progress Notes by Deshawn Hernandez at 05/12/13 1435 Author: Deshawn Hernandez Service: (none) Author Type: Filed: 05/12/13 1436 Date of Service: 05/12/13 1435 Status: Signed Director Business: Deshawn Hernandez () Participated in interdisciplinary rounds with Dr. Gutierrez, car varnisher. Pt is scheduled fo r transfer to LTAC. SALES MARKETING COORDINATOR sorting out location with family. Family is supported by their [facility] community. Deshawn Hernandez [facility] onver elaina Transaction, Provider Unknown - 05/12/2013 1:10 PM PST Progress Notes by Joselyn Knutson RN at 05/12/13 1310 Author: Joselyn Knutson RN Service: Wound/Ostomy Care Author Type: Registered Nurse Filed: 05/12/13 1312 Date of Service: 05/12/13 1310 Status: Signed Director Business: Joselyn Knutson RN (Registered Nurse) Patient seen today by computer support specialist instructor for evaluation due to a low Huang [...] Author: MARTHA Kunz Service: (none) Author Type: Retail Training Manager Filed: 05/12/13 1014 Date of Service: 05/12/13 1008 Status: Signed Director Business: MARTHA Kunz (Retail Training Manager) Received t/c from [facility] tony who states that they do not have an y beds until the end of the week. Met with patient and family to discuss other options. They do not want pt to go to [facility] or [place]. They are agreeable to me making referrals to [facility] and [facility] as a back up plan if [facility] has no beds by Friday. Faxed clini christi to [facility] (fax: [phone], ph: [phone]) and [facility] (fax: [phone], ph: ). Await return calls regarding bed availability and whether they are a contracted facility with insurance. oncaty delaney Transaction, Provider Unknown - 05/11/2013 3:41 PM PST Case Management by MARTHA Kunz at 05/11/13 1541 Author: MARTHA Kunz Service: (none) Author Type: Retail Training Manager Filed: 05/11/13 1549 Date of Service: 05/11/13 1541 Status: Signed Director Business: MARTHA Kunz (Retail Training Manager) Provided gas voucher to pt's daughter who is returning to [place] tomorrow and coming figueroa k on . Family informed me this morning that they do not want the pt to go to [facility] after all. They have chosen [facility] as their first choice and [facility] as their second ch oice. At this time [facility] has no beds but may on . Pt is to be trached today and pe gged tomorrow. REferral made to cecily Barbosa for [facility] ([phone]) who will have insurance check into whether they are contracted or not. I notified Tarsha Washington from [facility] that the family has chosen a different facility. Will complete transfer paperwork once I kno w if [facility] has a bed available. Notified [facility] of possible transfer on . Anabelle boone, NICANOR Crisostomo - 05/11/2013 12:12 PM PSTFormatting of this note might be different f rom the original. Progress Notes by NICANOR Martines at 05/11/13 1212 Author: NICANOR Martines Service: Hydrogeology Professor Author Type: Hydrogeology Professor Filed: 05/11/13 1528 Date of Service: 05/11/13 1212 Status: Signed Director Business: NICANOR Martines (Nurse Practitioner) [facility]: Hydrogeology Professor Progress Note Gilma Salmon 47 y.o. Hospital [...] ventilation initiated on May 01, 2013 at [facility]. ICU TIMELINE:The patient is admitted [...] care as above. Family has met with [facility] lia naqvitive and plan to go [...] Author: MARTHA Kunz Service: (none) Author Type: Retail Training Manager Filed: 05/10/13 3971 Date of Service: 05/10/131436 Status: Signed Director Business: MARTHA Kunz (Retail Training Manager) Attended morning rounds. Pt will likely be trached/pegged in the next 1-2 days. Met with p t's daughter to discuss LTAC options. They say that their father is still very sick at home with the flu and has asked them to assist with decision-making. LTAC options given. Daughter s are interested in [facility] in [place] as first choice and [facility] as second cho ice. I faxed clinical to [facility] ((fax [phone]) and spoke with the Tarsha tony ([phone]) who will plan to meet with pt's daughters tomorrow at 11:00. Salome Simms ARNP - 05/10/2013 7:25 AM PSTFormatting of this note might be different f rom the original. Progress Notes by NICANOR Martines at 05/10/13724 Author: NICANOR Martines Service: Hydrogeology Professor Author Type: Hydrogeology Professor Filed: 05/10/13811 Date of Service: 05/10/13724 Status: Signed Director Business: NICANOR Martines (Nurse Practitioner) [facility]: Hydrogeology Professor Progress Note Gilma Salmon 47 y.o. Hospital [...] ventilation initiated on May 01, 2013 at [facility]. ICU TIMELINE:The patient is admitted [...] will call Dr. novoa today who is account information clerk from ENT the office is not open [...] Notes by Esperanza Gutierrez MD at 05/09/13 6901 Author: Esperanza Gutierrez MD Service: Hydrogeology Professor Author Type: Physician Filed: 05/09/131820 Date of Service: 05/09/131810 Status: Signed Director Business: Esperanza Gutierrez MD (Physician) [facility]: Hydrogeology Professor Progress Note Gilma Salmon 47 y.o. Hospital [...] init iated on May 01, 2013 at [facility]. A-line placed right radial artery [...] Notes by Han Guerrero DMD at 05/08/13 1567 Author: Han Guerrero DMD Service: Hydrogeology Professor Author Type: Physician Filed: 02/01/14 2221 Date of Service: 05/08/132213 Status: Addendum Director Business: Han Guerrero DMD (Dentist) Related Notes: Original Note by Han Guerrero DMD (Dentist) filed at 05/08/132215 [facility]: Hydrogeology Professor PM note Gilma Salmon 47 y.o. Evaluated [...] Notes by Esperanza Gutierrez MD at 05/08/13 0234 Author: Esperanza Gutierrez MD Service: (none) Author Type: Physician Filed: 05/08/13 1503 Date of Service: 05/08/13 1444 Status: Signed Director Business: Esperanza Gutierrez MD (Physician) [facility]: Hydrogeology Professor Progress Note Gilma M Salmon 47 y.o. [...] init iated on May 01, 2013 at [facility]. A-line placed right radial artery [...] Case Management by MARTHA Kunz at 05/07/13 1711 Author: MARTHA Kunz Service: (none) Author Type: Retail Training Manager Filed: 05/07/13 1349 Date of Service: 05/07/13 1333 Status: Signed Director Business: MARTHA Kunz (Retail Training Manager) 05/07/13 1331 Discharge Planning Evaluation Living Arrangements Spouse/significant other Support Systems Spouse/significant other;Children Type of Residence Private residence House type [facility] Services No Prior functional status Independent prior to admit. Was employed for [employer] in [place]. Met with: pt's 2 daughters Ashlyn and Juli and discussed discharge planning, Pt is a 47 y.o., female admitted with the flu and bilater al pneumonia. Pt is vented. Non smoker; has asthma. and lives with her Amado (22 years) in [place]. 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 He is sick with the flu as well so is no t coming in to visit the patient. Pt has a step-daughter in [place] and a son in [place]. 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 I a sked if they had a restorationist that would support them. They are [facility] so I called manager of operations Tim who got the girls connected with a local [place] from the [employer] restorationist and hopefully can assist wi th some housing. I offered gas vouchers if they need to transport back and forth from [facility]. CM to follow to provide support and [...] Author: Joseph Steward Service: (none) Author Type: Novelty Twister Operator Filed: 05/07/13 1223 Date of Service: 05/07/13 1221 Status: Signed Director Business: Joseph Steward () Novelty Twister Operator received call back from [employer] leader Luis Blunt, who then came promptly to ass ist dtrs with their needs. Chaplain Joseph Steward BCC Al Gonzalez MD - 05/07/2013 11:43 AM PSTFormatting of this note might be different from the o riginal. Progress Notes by Al Houston MD at 05/07/13 1143 Author: Al Houston MD Service: (none) Author Type: Hydrogeology Professor Filed: 05/07/13 1223 Date of Service: 05/07/13 1143 Status: Signed Director Business: Al Houston MD (Physician) [facility]: Hydrogeology Professor Progress Note Gilma Salmon 47 y.o. Hospital [...] initi ated on May 01, 2013 at [facility]. A-line placed right radial artery [facility] 2013. Events Overnight: Trying to wean peep [...] insulin regular 1 unit/mL 1.6 Units/hr (05/06/13 2876) PHYSICAL EXAM Vital Signs: BP 112/60 | [...] Date of Service: 05/07/13 1035 Status: Signed Director Business: Joseph Steward () Family referral for help in contacting local [facility] leadership for housing assistance for pt's 2 dtrs who are from [place]. Called/msg for local [facility] leader. Awaiting call back. Chaplain Joseph Steward BCC onver elaina Transaction, Provider Unknown - 05/06/2013 5:52 AM PST Progress Notes by Han Guerrero DMD at 05/06/13 0552 Author: Han Guerrero DMD Service: Hydrogeology Professor Author Type: Physician Filed: 05/07/13 0448 Date of Service: 05/06/13 0552 Status: Signed Director Business: Han Guerrero DMD (Dentist) Related Notes: Original Note by Han Guerrero DMD (Dentist) filed at 05/06/13 0610 [facility]: Hydrogeology Professor Progress Note Gilma Salmon 47 y.o. Hospital [...] initi ated on May 01, 2013 at [facility]. A-line placed right radial artery [facility] 2013. Events Overnight: The patient had a [...] sulfate, nystatin, nystatin, ondan setron, ondansetron, pancrelipase (Ogg-Ccfb-Yztn) 10,000 units, petrolatum, phosphorus, pota ssium chloride, [...] 05/05/2013 10:45 PM PST Progress Notes by Han Guerrero DMD at 05/05/139 Author: Han Guerrero DMD Service: (none) Author Type: Physician Filed: 05/05/13 4485 Date of Service: 05/05/132244 Status: Signed Director Business: Han Guerrero DMD (Dentist) [facility]: Hydrogeology Professor PM note Gilma Leyva Teodora 47 y.o. Evaluated the patient in the [...] function tests) ASSESSMENT & PLAN Will need [place], decreased MV to 6 cc kg ibw, [...] 141 Date of Service: 05/05/131414 Status: Signed Director Business: Jenniffer Hidalgo RPH (Pharmacist) Initiation of Vancomycin Pharmacy Dosing Gilma Salmon 47 y.o. female 1.676 m (5' 6") 138.9 kg (306 lb 3.5 oz) Body mass index is 49.45 kg/(m^2). Lyons Body Weight: 59.3 kg Adjusted Body Weight: 91.1 kg CREATININE Date Value Range Status 05/05/2013 0.81 0.50 - 1.00 mg/dL Final Testing performed at [facility];[address] [facility];[place] [address] Estimated CrCl : CREATININE: 0.81 (05/05/13 1320) [...] Service: (none) Author Type: Pharmacist Filed: 05/05/13 1255 Date of Service: 05/05/13 125 Status: Signed Director Business: Jenniffer Hidalgo RPH (Pharmacist) Renal Dosing Monitoring: [...] H&P by Estefania Brannon DO at 05/05/13 8600 Author: Estefania Brannon DO Service: Hydrogeology Professor Author Type: Hydrogeology Professor Filed: 05/05/13 1509 Date of Service: 05/05/13 1309 Status: Addendum Director Business: Estefania Brannon DO (Physician) Related Notes: Original Note by Estefania Brannon DO (Physician) filed at 05/05/13 8882 [facility]: Hydrogeology Professor Admission History & Physical Gilma Salmon 47 y.o. Date of Admission: 05/05/2013 Requesting Physician: Dr. Hernandes, Hospitalist at [facility] Indication for ICU Admission: acute [...] who pres ented to the ED at [facility] on 05/01 for cough and fever and was discharged home. She pr esented there again the next day with SOB, weakness, cough, fever and dizziness. She was the n admitted and tested positive for influenza A and was started on Tamiflu. She became progre ssively more hypoxemic with increasing b/l infiltrates on CXR and was transferred to [facility] [facility]OSPITAL for further management after she was intubated on the evening of 05/04. (Pt had just receiv ed flu shot on 04/29/13 at [facility]). REVIEW OF SYSTEMS A comprehensive review [...] for intubation: daily sedation holidays and keep [place] 2-3. CARDIOVASCULAR: Hemodynamically stable PULMONARY: Acute respiratory failure: due to Influenza A pneumonia. Will send sputum for cx as at r isk for secondary bacterial PNA. Will keep higher PEEP and wean FIO2 for sats >90%. Asthma: without e/o acute exacerbation. ETT a little high on CXR, will advance 2 cm. GI: Elevated AST/ALT: mild. Monitor. Had neg viral hepatitis serologies at [facility]. RENAL: Hypokalemia: replace and follow HypoMg: [...] Procedures by Shalonda Novoa MD at 05/11/13 9468 Author: Shalonda Novoa MD Service: (none) Author Type: Physician Filed: 05/11/13 2897 Date of Service: 05/11/13 1523 Status: Signed Director Business: Shalonda Novoa MD (Physician) [facility]: Otolaryngology Operative Note Pre-operative Diagnosis: Respiratory Failure Post-operative Diagnosis: Same Procedure(s): Tracheostomy, Nasogastric tube insertion Surgeon: SHALONDA NOVOA MD Director It(s): Alexandrea LOUIS Anesthesia: General endotrachial anesthesia Estimated Blood Loss: Less Than 50 ml Other: #8 Shiley DCT tracheostomy tube, 10 [place] nasogastric feeding tube Indications: 47 YOF with [...] 010 Date of Service: 05/06/13100 Status: Signed Director Business: Han Guerrero DMD (Dentist) Procedure Orders: 1. Insert arterial line [[id number]] ordered by Han Guerrero DMD at 05/06/13 010 Post-procedure Diagnoses: 1. Acute respiratory failure (HCC) [518.81] [facility]: Hydrogeology Professor BEDSIDE PROCEDURE NOTE Insert Arterial Line Date/Time: 05/05/2013 1:01 AM Performed by: HAN GUERRERO Authorized by: HAN GUERRERO Consent: The procedure was performed in an emergent situation. Patient identity confirmed: anonymous protocol, patient vented/unresponsive Time out: Immediately prior to procedure a "time out" was called to verify the correct gee ent, procedure, equipment, computer support specialist instructor and site/side marked as required. Preparation: Patient [...] Consult* by Shalonda Novoa MD at 05/11/13 1023 Author: Shalonda Novoa MD Service: (none) Author Type: Physician Filed: 05/11/13 1039 Date of Service: 05/11/13 1026 Status: Signed Director Business: Shalonda Novoa MD (Physician) [facility]: Otolaryngology Initial Consult Note Date of Admission: 05/05/2013 Reason for Consultation: Respiratory Failure requiring mechanical ventilation Requesting Physician: Hydrogeology Professor History Obtained From: daughter, chart review Date of Service: 05/10/2013 CHIEF COMPLAINT: Respiratory failure HISTORY OF PRESENT ILLNESS The patient is a 47 y.o. female with morbid obesity who was transferred to [facility] on 2013 with the diagnosis of ARDS with influenza A, on Tamiflu. She also has a history o f poorly controlled diabetes type 2, asthma and bronchitis with prior DVT. The patient was a dmitted on May 05, 2013. Mechanical ventilation initiated on May 01, 2013 at [facility]. A-line placed right radial artery May [...] sulfate, nystatin, nystatin, ondansetron, on dansetron, pancrelipase (Wcn-Ruxe-Qdlw) 10,000 units, petrolatum, phosphorus, potassium chlo ride, potassium chloride, potassium chloride, sodium bicarbonate, sodium chloride 0.9 %, sod ium glycerophosphate IVPB 20 mMol, sodium glycerophosphate IVPB 45 mMol [DISCONTINUED] pancrelipase (Vhn-Hhfw-Wabn) 10,000 units, [DISCONTINUED] pancrelipase (Lip- Prot-Amyl) 10,000 [...] 05/07/13941 Date of Service: 05/07/13941 Status: Signed Director Business: Ann Marie Garcia RN (Registered Nurse) Problem: [...] D | | | | | | [place] [address] | | | | | | [phone] | | | | | | | [...] | | | Fingerstick | performed at [facility];[address] | | LAB | | | | [address];[place] | | | | | | [address] | | | | + + + [...] | | LAB | | | | [facility], [address] | | | | | | [place] | | | | | | [address] | | | | + + + + + + | HEP B | NON REACTIVEComment: | | EXTERNAL | | | SURFACE | Testing performed at | | LAB | | | ANTIBODY | [facility], [address] | | | | | | [place] | | | | | | [address] | | | | + + + + + + | Hepatitis B | NON REACTIVEComment: | | EXTERNAL | | | Core Ab | Testing performed at | | LAB | | | Total | [facility], [address] | | | | | | [place] | | | | | | [address] | | | | + + + [...] | | | | | performed at [facility], [address] | | | | | | [address] [place], | | | | | | [place] [address] | | | | + + + + + + | HCV Ab | NON REACTIVEComment: | | EXTERNAL | | | | Testing performed at | | LAB | | | | [facility], [address] | | | | | | [place] | | | | | | [address] | | | | + + + [...] at | | | | | | [facility], [address] | | | | | | [place] | | | | | | [address] | | | | + + + [...] | | | Fingerstick | performed at [facility];[address] | | LAB | | | | [address];[place], [place] | | | | | | [address] | | | | + + + [...] At | + + + | GILMA OVALLES CHEST 1 VIEW 05/14/2013 5:31 AM History: [...] Conversion - 11/20/2018 1:53 PM PDT GILMA Autumn LIMAXR CHEST 1 VIEW05/14/2013 | | 5:31 AM [...] | | | Fingerstick | performed at [facility];[address] | | LAB | | | | [address];[place] | | | | | | [address] | | | | + + + [...] | | | Fingerstick | performed at [facility];[address] | | LAB | | | | [address];[place] | | | | | | [address] | | | | + + + [...] EXTERNAL | | | | performed at [facility];888 | mmol/L | LAB | | | | [address];[place] | | | | | | [address] | | | | + + + [...] | | | Fingerstick | performed at [facility] | | LAB | | | | [address];[place], [place] | | | | | | [address] | | | | + + + + + + + + | Specimen | + + | | + + + +---------+ + + | Performing | Address | City/State/Zipcode | Phone Number | | Organization | | | | + +---------+ + + | EXTERNAL LAB | | | | + +---------+ + + XR Chest 1 Vw (05/13/2013 5:34 AM PST) + + | Specimen | [...] Conversion - 11/20/2018 1:53 PM PDT GILMA SALMON CHEST 1 VIEW05/13/2013 | | 5:34 AM [...] position of life-support catheters. Electronically signed by Greonimo Lovett MD on | | 05/13/2013 7:33 [...] EXTERNAL | | | | performed at [facility];[address] | | LAB | | | | [address];[place] | | | | | | [address] | | | | + + + + + + | Non- | 3.77Comment: Testing | 3.70 - 5.10 | EXTERNAL | | | Red Blood | performed at [facility];[address] | M/uL | LAB | | | Cells | [address];[place] | | | | | Counted | [address] | | | | + + + + + + | Hemoglobin | 10.4 (L)Comment: Testing | 11.3 - 15.5 | EXTERNAL | | | | performed at [facility];888 | g/dL | LAB | | | | [address];[place] | | | | | | [address] | | | | + + + + + + | Hematocrit, | 30.3 (L)Comment: Testing | 34.0 - 46.0 % | EXTERNAL | | | POC | performed at [facility];[address] | | LAB | | | | [address];[place] | | | | | | [address] | | | | + + + + + + | MCV | 80.4Comment: Testing | 80.0 - 100.0 fl | EXTERNAL | | | | performed at [facility];[address] | | LAB | | | | [address];[place] | | | | | | [address] | | | | + + + + + + | MCH | 27.6Comment: Testing | 27.0 - 34.0 pg | EXTERNAL | | | | performed at [facility];[address] | | LAB | | | | [address];[place] | | | | | | [address] | | | | + + + + + + | MCHC | 34.3Comment: Testing | 32.0 - 35.5 | EXTERNAL | | | | performed at [facility];888 | g/dL | LAB | | | | [address];[place] | | | | | | [address] | | | | + + + + + + | RDW-CV | 40.3Comment: Testing | 37 - 53 fl | EXTERNAL | | | | performed at [facility];[address] | | LAB | | | | [address];[place] | | | | | | [address] | | | | + + + + + + | Platelet | 544 (H)Comment: Testing | 150 - 400 K/uL | EXTERNAL | | | Count | performed at [facility];[address] | | LAB | | | Plasma | [address];[place] | | | | | | [address] | | | | + + + + + + | MPV | 6.6Comment: Testing | fl | EXTERNAL | | | | performed at [facility];[address] | | LAB | | | | [address];[place] | | | | | | [address] | | | | + + + + + + | Differentia | AUTOMATEDComment: | | EXTERNAL | | | l Type | Testing performed at | | LAB | | | | [facility];[address] | | | [address];[place] [address] | | | | + + + [...] EXTERNAL | | | | performed at [facility];[address] | | LAB | | | | [address];[place] | | | | | | [address] | | | | + + + [...] EXTERNAL | | | | performed at [facility];[address] | mmol/L | LAB | | | | [address];[place] | | | | | | [address] | | | | + + + + + + | K | 3.5Comment: Testing | 3.5 - 4.9 | EXTERNAL | | | | performed at [facility];[address] | mmol/L | LAB | | | | [address];[place] | | | | | | [address] | | | | + + + + + + | Cl | 102Comment: Testing | 99 - 109 mmol/L | EXTERNAL | | | | performed at [facility];[address] | | LAB | | | | [address];[place] | | | | | | [address] | | | | + + + + + + | CO2 | 29Comment: Testing | 23 - 32 mmol/L | EXTERNAL | | | | performed at [facility];[address] | | LAB | | | | [address];[place] | | | | | | [address] | | | | + + + + + + | Anion Gap | 10Comment: Testing | 5 - 20 mmol/L | EXTERNAL | | | | performed at [facility];[address] | | LAB | | | | [address];[place] | | | | | | [address] | | | | + + + + + + | Glucose, | 106 (H)Comment: Testing | 65 - 99 mg/dL | EXTERNAL | | | Fasting | performed at [facility];[address] | | LAB | | | | [address];[place] | | | | | | [address] | | | | + + + + + + | BUN | 16Comment: Testing | 8 - 25 mg/dL | EXTERNAL | | | | performed at [facility];[address] | | LAB | | | | [address];[place] | | | | | | [address] | | | | + + + + + + | Creatinine | 0.55Comment: Testing | 0.50 - 1.00 | EXTERNAL | | | | performed at [facility];[address] | mg/dL | LAB | | | | [address];[place] | | | | | | [address] | | | | + + + + + + | BUN/Creatin | 30Comment: Testing | | EXTERNAL | | | ine Ratio | performed at [facility];[address] | | LAB | | | | [address];[place] | | | | | | [address] | | | | + + + + + + | Calcium | 8.5Comment: Testing | 8.5 - 10.2 | EXTERNAL | | | | performed at [facility];[address] | mg/dL | LAB | | | | [address];[place] | | | | | | [address] | | | | + + + + + + | Protein, | 7.5Comment: Testing | 6.3 - 8.2 g/dL | EXTERNAL | | | Total | performed at [facility];[address] | | LAB | | | | [address];[place] | | | | | | [address] | | | | + + + + + + | Albumin | 2.2 (L)Comment: Testing | 3.6 - 5.0 g/dL | EXTERNAL | | | | performed at [facility];[address] | | LAB | | | | [address];[place] | | | | | | [address] | | | | + + + + + + | Globulin | 5.3 (H)Comment: Testing | 1.3 - 4.9 g/dL | EXTERNAL | | | | performed at [facility];[address] | | LAB | | | | [address];[place] | | | | | | [address] | | | | + + + + + + | A/G Ratio | 0.4 (L)Comment: Testing | 1.0 - 2.4 | EXTERNAL | | | | performed at [facility];[address] | | LAB | | | | [address];[place] | | | | | | [address] | | | | + + + + + + | Bilirubin | 0.5Comment: Testing | 0.1 - 1.5 mg/dL | EXTERNAL | | | Total | performed at [facility];[address] | | LAB | | | | [address];[place] | | | | | | [address] | | | | + + + + + + | ALP, | 118 (H)Comment: Testing | 35 - 115 U/L | EXTERNAL | | | External | performed at [facility];[address] | | LAB | | | | [address];[place] | | | | | | [address] | | | | + + + + + + | AST | 69 (H)Comment: Testing | 10 - 45 U/L | EXTERNAL | | | | performed at [facility];[address] | | LAB | | | | [address];[place] | | | | | | [address] | | | | + + + + + + | ALT | 81 (H)Comment: Testing | 10 - 65 U/L | EXTERNAL | | | | performed at [facility];[address] | | LAB | | | | [address];[place] | | | | | | [address] | | | | + + + [...] | | | | | | at [facility];[address] | | | [address];[place] [address] | | | | + + + [...] | | | Fingerstick | performed at [facility];[address] | | LAB | | | | [address];[place], [place] | | | | | | [address] | | | | + + + [...] | | | Fingerstick | performed at [facility];[address] | | LAB | | | | [address];[place], [place] | | | | | | [address] | | | | + + + [...] EXTERNAL | | | | performed at [facility];[address] | mmol/L | LAB | | | | [address];[place] | | | | | | [address] | | | | + + + + + + | K | 4.0Comment: Testing | 3.5 - 4.9 | EXTERNAL | | | | performed at [facility];[address] | mmol/L | LAB | | | | [address];[place] | | | | | | [address] | | | | + + + + + + | Cl | 100Comment: Testing | 99 - 109 mmol/L | EXTERNAL | | | | performed at [facility];[address] | | LAB | | | | [address];[place] | | | | | | [address] | | | | + + + + + + | CO2 | 31Comment: Testing | 23 - 32 mmol/L | EXTERNAL | | | | performed at [facility];[address] | | LAB | | | | [address];[place] | | | | | | [address] | | | | + + + + + + | Anion Gap | 9Comment: Testing | 5 - 20 mmol/L | EXTERNAL | | | | performed at [facility];[address] | | LAB | | | | [address];[place] | | | | | | [address] | | | | + + + + + + | Glucose, | 179 (H)Comment: Testing | 65 - 99 mg/dL | EXTERNAL | | | Fasting | performed at [facility];[address] | | LAB | | | | [address];[place] | | | | | | [address] | | | | + + + + + + | BUN | 20Comment: Testing | 8 - 25 mg/dL | EXTERNAL | | | | performed at [facility];[address] | | LAB | | | | [address];[place] | | | | | | [address] | | | | + + + + + + | Creatinine | 0.67Comment: Testing | 0.50 - 1.00 | EXTERNAL | | | | performed at [facility];[address] | mg/dL | LAB | | | | [address];[place] | | | | | | [address] | | | | + + + + + + | BUN/Creatin | 29Comment: Testing | | EXTERNAL | | | ine Ratio | performed at [facility];[address] | | LAB | | | | [address];[place] | | | | | | [address] | | | | + + + + + + | Calcium | 8.8Comment: Testing | 8.5 - 10.2 | EXTERNAL | | | | performed at [facility];[address] | mg/dL | LAB | | | | [address];[place] | | | | | | [address] | | | | + + + [...] | | | | | | at [facility];[address] | | | | | [address];[place] [address] | | | | + + + [...] | | | Fingerstick | performed at [facility];[address] | | LAB | | | | [address];[place], [place] | | | | | | [address] | | | | + + + [...] | | | Fingerstick | performed at [facility];[address] | | LAB | | | | [address] [facility];[place] | | | | | | [address] | | | | + + + [...] | | | | | [place] [address] | | | | + + + + + + | Non- | 3.90Comment: Testing | 3.70 - 5.10 | EXTERNAL | | | Red Blood | performed at [facility], [address] | M/uL | LAB | | | Cells | [place], | | | | | Counted | [place] [address] | | | | + + + + + + | Hemoglobin | 10.4 (L)Comment: Testing | 11.3 - 15.5 | EXTERNAL | | | | performed at [facility], [address] | g/dL | LAB | | | | [address] [place], | | | | | | [place] [address] | | | | + + + + + + | Hematocrit, | 31.8 (L)Comment: Testing | 34.0 - 46.0 % | EXTERNAL | | | POC | performed at [facility], [address] | | LAB | | | | [address] [place], | | | | | | [place] [address] | | | | + + + + + + | MCV | 81.6Comment: Testing | 80.0 - 100.0 fl | EXTERNAL | | | | performed at [facility], [address] | | LAB | | | | [place], | | | | | | [place] [address] | | | | + + + + + + | MCH | 26.7 (L)Comment: Testing | 27.0 - 34.0 pg | EXTERNAL | | | | performed at [facility], [address] | | LAB | | | | [address] [place], | | | | | | [place] [address] | | | | + + + + + + | MCHC | 32.7Comment: Testing | 32.0 - 35.5 | EXTERNAL | | | | performed at [facility], [address] | g/dL | LAB | | | | [address], | | | | | | [place] [address] | | | | + + + + + + | RDW-CV | 39.8Comment: Testing | 37 - 53 fl | EXTERNAL | | | | performed at [facility], [address] | | LAB | | | | [address], | | | | | | [place] [address] | | | | + + + + + + | Platelet | 469 (H)Comment: Testing | 150 - 400 K/uL | EXTERNAL | | | Count | performed at [facility], [address] | | LAB | | | Plasma | [address], | | | | | | [place] [address] | | | | + + + + + + | MPV | 7.1Comment: Testing | fl | EXTERNAL | | | | performed at [facility], [address] | | LAB | | | | [address] [place], | | | | | | [place] [address] | | | | + + + + + + | Differentia | AUTOMATEDComment: | | EXTERNAL | | | l Type | Testing performed at | | LAB | | | | [facility], [address] | | | | | | [place] | | | | | | [address] | | | | + + + [...] EXTERNAL | | | | performed at [facility], [address] | | LAB | | | | [place], | | | | | | [place] [address] | | | | + + + [...] | | | | | [place] [address] | | | | + + + + + + | K | 3.7Comment: Testing | 3.5 - 4.9 | EXTERNAL | | | | performed at [facility], [address] | mmol/L | LAB | | | | [address], | | | | | | [place] [address] | | | | + + + + + + | Cl | 102Comment: Testing | 99 - 109 mmol/L | EXTERNAL | | | | performed at [facility], [address] | | LAB | | | | [address], | | | | | | [place] [address] | | | | + + + + + + | CO2 | 29Comment: Testing | 23 - 32 mmol/L | EXTERNAL | | | | performed at [facility], [address] | | LAB | | | | [address], | | | | | | [place] [address] | | | | + + + + + + | Anion Gap | 9Comment: Testing | 5 - 20 mmol/L | EXTERNAL | | | | performed at [facility], [address] | | LAB | | | | [address], | | | | | | [place] [address] | | | | + + + + + + | Glucose, | 147 (H)Comment: Testing | 65 - 99 mg/dL | EXTERNAL | | | Fasting | performed at [facility], [address] | | LAB | | | | [address], | | | | | | [place] [address] | | | | + + + + + + | BUN | 18Comment: Testing | 8 - 25 mg/dL | EXTERNAL | | | | performed at [facility], [address] | | LAB | | | | [address] [place], | | | | | | [place] [address] | | | | + + + + + + | Creatinine | 0.45 (L)Comment: Testing | 0.50 - 1.00 | EXTERNAL | | | | performed at [facility], [address] | mg/dL | LAB | | | | [address], | | | | | | [place] [address] | | | | + + + + + + | BUN/Creatin | 40Comment: Testing | | EXTERNAL | | | ine Ratio | performed at [facility], [address] | | LAB | | | | [address], | | | | | | [place] [address] | | | | + + + + + + | Calcium | 8.9Comment: Testing | 8.5 - 10.2 | EXTERNAL | | | | performed at [facility], [address] | mg/dL | LAB | | | | [address], | | | | | | [place] [address] | | | | + + + + + + | Protein, | 7.1Comment: Testing | 6.3 - 8.2 g/dL | EXTERNAL | | | Total | performed at [facility], [address] | | LAB | | | | [address], | | | | | | [place] [address] | | | | + + + + + + | Albumin | 2.8 (L)Comment: Testing | 3.6 - 5.0 g/dL | EXTERNAL | | | | performed at [facility], [address] | | LAB | | | | [address], | | | | | | [place] [address] | | | | + + + + + + | Globulin | 4.3Comment: Testing | 1.3 - 4.9 g/dL | EXTERNAL | | | | performed at [facility], [address] | | LAB | | | | [address], | | | | | | [place] [address] | | | | + + + + + + | A/G Ratio | 0.7 (L)Comment: Testing | 1.0 - 2.4 | EXTERNAL | | | | performed at [facility], [address] | | LAB | | | | [address], | | | | | | [place] [address] | | | | + + + + + + | Bilirubin | 0.5Comment: Testing | 0.1 - 1.5 mg/dL | EXTERNAL | | | Total | performed at [facility], [address] | | LAB | | | | [address], | | | | | | [place] [address] | | | | + + + + + + | ALP, | 94Comment: Testing | 35 - 115 U/L | EXTERNAL | | | External | performed at [facility], [address] | | LAB | | | | [address], | | | | | | [place] [address] | | | | + + + + + + | AST | 62 (H)Comment: Testing | 10 - 45 U/L | EXTERNAL | | | | performed at [facility], [address] | | LAB | | | | [address], | | | | | | [place] [address] | | | | + + + + + + | ALT | 70 (H)Comment: Testing | 10 - 65 U/L | EXTERNAL | | | | performed at [facility], [address] | | LAB | | | | [address], | | | | | | [place] [address] | | | | + + + [...] | | | | | | at [facility], [address] | | | | | | [address], | | | | | | [place] [address] | | | | + + + [...] | | | Fingerstick | performed at [facility];[address] | | LAB | | | | [address];[place], [place] | | | | | | [address] | | | | + + + [...] EXTERNAL | | | | performed at [facility];[address] | mmol/L | LAB | | | | [address];[place], [place] | | | | | | [address] | | | | + + + [...] EXTERNAL | | | | performed at [facility];8 | | LAB | | | | [address];[place] | | | | | | [address] | | | | + + [...] EXTERNAL | | | | performed at [facility];[address] | | LAB | | | | [address];[place], [place] | | | | | | [address] | | | | + + + [...] | | | Fingerstick | performed at [facility];[address] | | LAB | | | | [address];[place], [place] | | | | | | [address] | | | | + + + [...] | | | Fingerstick | performed at [facility];[address] | | LAB | | | | [address];[place] | | | | | | [address] | | | | + + + [...] 1:53 PM PDT GILMA LIMASXR CHEST 1 VIEW05/11/2013 | | 12:42 PM [...] | | | Fingerstick | performed at [facility];[address] | | LAB | | | | [address];[place], [place] | | | | | | [address] | | | | + + + [...] At | + + + | GILMA LIMAS XR CHEST 1 VIEW 05/11/2013 5:53 AM [...] Procedure Note | + -----+ | Fox, Rad Conversion - 11/20/2018 1:53 PM PDT GILMA SALMONXR CHEST 1 VIEW05/11/2013 | | 5:53 AM [...] | | | (Calc) | performed at [facility];[address] | mmol/L | LAB | | | | [address];[place] | | | | | | [address] | | | | + + + + + + | pH, Bld | 7.463 (H)Comment: | 7.300 - 7.450 | EXTERNAL | | | | Testing performed at | | LAB | | | | [facility];[address];[place] [address] | | | | + + + [...] | | | | | performed at [facility];[address] | | | | | | [facility];[place], [place] | | | | | | [address] | | | | + + + [...] EXTERNAL | | | | performed at [facility];[address] | | LAB | | | | [address];[place] | | | | | | [address] | | | | + + + + + + | Non- | 3.85Comment: Testing | 3.70 - 5.10 | EXTERNAL | | | Red Blood | performed at [facility];[address] | M/uL | LAB | | | Cells | [address];[place] | | | | | Counted | [id number] | | | | + + + + + + | Hemoglobin | 10.6 (L)Comment: Testing | 11.3 - 15.5 | EXTERNAL | | | | performed at [facility];[address] | g/dL | LAB | | | | [address];[place] | | | | | | [address] | | | | + + + + + + | Hematocrit, | 31.0 (L)Comment: Testing | 34.0 - 46.0 % | EXTERNAL | | | POC | performed at [facility];[address] | | LAB | | | | [address];[place] | | | | | | [address] | | | | + + + + + + | MCV | 80.5Comment: Testing | 80.0 - 100.0 fl | EXTERNAL | | | | performed at [facility];[address] | | LAB | | | | [address];[place] | | | | | | [address] | | | | + + + + + + | MCH | 27.5Comment: Testing | 27.0 - 34.0 pg | EXTERNAL | | | | performed at [facility];[address] | | LAB | | | | [address];[place] | | | | | | [address] | | | | + + + + + + | MCHC | 34.1Comment: Testing | 32.0 - 35.5 | EXTERNAL | | | | performed at [facility];888 | g/dL | LAB | | | | [address];[place] | | | | | | [address] | | | | + + + + + + | RDW-CV | 41.1Comment: Testing | 37 - 53 fl | EXTERNAL | | | | performed at [facility];[address] | | LAB | | | | [address];[place] | | | | | | [address] | | | | + + + + + + | Platelet | 484 (H)Comment: Testing | 150 - 400 K/uL | EXTERNAL | | | Count | performed at [facility];[address] | | LAB | | | Plasma | [address];[place] | | | | | | [address] | | | | + + + + + + | MPV | 6.8Comment: Testing | fl | EXTERNAL | | | | performed at [facility];[address] | | LAB | | | | [address];[place] | | | | | | [address] | | | | + + + + + + | Differentia | AUTOMATEDComment: | | EXTERNAL | | | l Type | Testing performed at | | LAB | | | | [facility];[address];[place] [address] | | | | + + + [...] EXTERNAL | | | | performed at [facility];[address] | | LAB | | | | [address];[place], [place] | | | | | | [address] | | | | + + + [...] EXTERNAL | | | | performed at [facility];[address] | | LAB | | | | [address];[place] | | | | | | [address] | | | | + + + [...] EXTERNAL | | | | performed at [facility];[address] | mmol/L | LAB | | | | [address];[place], [place] | | | | | | [address] | | | | + + + + + + | K | 3.9Comment: Testing | 3.5 - 4.9 | EXTERNAL | | | | performed at [facility];888 | mmol/L | LAB | | | | [address];[place] | | | | | | [address] | | | | + + + + + + | Cl | 104Comment: Testing | 99 - 109 mmol/L | EXTERNAL | | | | performed at [facility];[address] | | LAB | | | | [address];[place] | | | | | | [address] | | | | + + + + + + | CO2 | 27Comment: Testing | 23 - 32 mmol/L | EXTERNAL | | | | performed at [facility];[address] | | LAB | | | | [address];[place] | | | | | | [address] | | | | + + + + + + | Anion Gap | 10Comment: Testing | 5 - 20 mmol/L | EXTERNAL | | | | performed at [facility];[address] | | LAB | | | | [address];[place] | | | | | | [address] | | | | + + + + + + | Glucose, | 151 (H)Comment: Testing | 65 - 99 mg/dL | EXTERNAL | | | Fasting | performed at [facility];[address] | | LAB | | | | [address];[place] | | | | | | [address] | | | | + + + + + + | BUN | 17Comment: Testing | 8 - 25 mg/dL | EXTERNAL | | | | performed at [facility];[address] | | LAB | | | | [address];[place] | | | | | | [address] | | | | + + + + + + | Creatinine | 0.57Comment: Testing | 0.50 - 1.00 | EXTERNAL | | | | performed at [facility];888 | mg/dL | LAB | | | | [address];[place] | | | | | | [address] | | | | + + + + + + | BUN/Creatin | 29Comment: Testing | | EXTERNAL | | | ine Ratio | performed at [facility];[address] | | LAB | | | | [address];[place] | | | | | | [address] | | | | + + + + + + | Calcium | 8.3 (L)Comment: Testing | 8.5 - 10.2 | EXTERNAL | | | | performed at [facility];888 | mg/dL | LAB | | | | [address];[place] | | | | | | [address] | | | | + + + + + + | Protein, | 7.1Comment: Testing | 6.3 - 8.2 g/dL | EXTERNAL | | | Total | performed at [facility];[address] | | LAB | | | | [address];[place] | | | | | | [address] | | | | + + + + + + | Albumin | 1.9 (L)Comment: Testing | 3.6 - 5.0 g/dL | EXTERNAL | | | | performed at [facility];[address] | | LAB | | | | [address];[place] | | | | | | [address] | | | | + + + + + + | Globulin | 5.1 (H)Comment: Testing | 1.3 - 4.9 g/dL | EXTERNAL | | | | performed at [facility];[address] | | LAB | | | | [address];[place] | | | | | | [address] | | | | + + + + + + | A/G Ratio | 0.4 (L)Comment: Testing | 1.0 - 2.4 | EXTERNAL | | | | performed at [facility];[address] | | LAB | | | | [address];[place] | | | | | | [address] | | | | + + + + + + | Bilirubin | 0.5Comment: Testing | 0.1 - 1.5 mg/dL | EXTERNAL | | | Total | performed at [facility];[address] | | LAB | | | | [address];[place] | | | | | | [address] | | | | + + + + + + | ALP, | 120 (H)Comment: Testing | 35 - 115 U/L | EXTERNAL | | | External | performed at [facility];[address] | | LAB | | | | [address];[place] | | | | | | [address] | | | | + + + + + + | AST | 79 (H)Comment: Testing | 10 - 45 U/L | EXTERNAL | | | | performed at [facility];[address] | | LAB | | | | [address];[place] | | | | | | [address] | | | | + + + + + + | ALT | 78 (H)Comment: Testing | 10 - 65 U/L | EXTERNAL | | | | performed at [facility];[address] | | LAB | | | | [address];[place] | | | | | | [address] | | | | + + + [...] | | | | | | at [facility];[address] [place] [address] | | | | | | [facility];[place] [address] | | | | + + + [...] | | | Fingerstick | performed at [facility];[address] | | LAB | | | | [address];[place] | | | | | | [address] | | | | + + + [...] | | | Patient | performed at [facility];[address] | | LAB | | | | [address];[place] | | | | | | [address] | | | | + + + [...] | | | | | performed at [facility];[address] | | | | | | [address];[place], [place] | | | | | | [address] | | | | + + + [...] | | | Fingerstick | performed at [facility];[address] | | LAB | | | | [address];[place] | | | | | | [address] | | | | + + + [...] EXTERNAL | | | | performed at [facility];888 | mmol/L | LAB | | | | [address];[place], [place] | | | | | | [address] | | | | + + + [...] EXTERNAL | | | | performed at [facility];[address] | | LAB | | | | [address];[place], [place] | | | | | | [address] | | | | + + + [...] EXTERNAL | | | | performed at [facility];88 | | LAB | | | | [address];[place], [place] | | | | | | [address] | | | | + + + [...] | | | Fingerstick | performed at [facility];[address] | | LAB | | | | [address];[place], [place] | | | | | | [address] | | | | + + + [...] Excursion: 2.11 cm E-F | | | Forrest: 0.14 m/s IVC diameter: 2.19 cm IVC [...] 0.56 m/s TV | | | Dec Forrest: 4.82 m/s2 TV Dec Time: 116.68 ms TV E Cindy: 0.56 | | | m/s TV E/A Ratio: 1 Reprint Sorter: MARISA Authenticated by: Daina العراقي | | Jimmy Alan MD Report Date/Time: [...] (A-L): 14.81 ml/m2LAAs A2C: 11.70 | | [id number] A-L A2C: 27.34 mlLALs A2C: 4.25 cmLAAs A4C: 15.34 hv2HCLWJ A-L A4C: | | 38.61 mlLALs A4C: 5.17 cmAo Diam: 2.95 cmAV Cusp: 1.94 cmLA Diam: 3.01 cmLA/Ao: | | 1.02%FS: 33.07 %EDV(Teich): 93.02 mlEF(Teich): 61.77 %ESV(Teich): 35.55 | | mlIVSd: 1.18 cmIVSs: 1.31 cmLVIDd: 4.51 cmLVIDs: 3.01 cmLVPWd: 0.59 cmLVPWs: | | 1.28 cmSV(Teich): 57.46 mlD-E Excursion: 2.11 cmE-F Forrest: 0.14 m/sIVC diameter: | | 2.19 cmIVC collapse: 1.56 cmIVC % collapse: 26.37 %HR: 87.57 BPMAV maxPG: | | 10.95 mmHgAV meanP.08 mmHgAV Vmax: 1.65 m/Dalia Vmean: 1.16 m/Dalia VTI: 31.75 | | cmAVA Vmax: 2.87 cm2AVA (VTI): 3.09 pj6VMBT Dopp: 3.61 l/awiw5PZVD Dopp: 8.73 | | l/minHR: 88.92 BPMLVOT [...] 2.30 m/sTV A Cindy: 0.56 m/sTV Dec Forrest: 4.82 m/s2TV Dec Time: | | 116.68 msTV E Cindy: 0.56 m/sTV E/A Ratio: 1 Reprint Sorter: Bevted by: Daina | | Jimmy Alan [...] | |D-E Excursion: 2.11 cm | |E-F Forrest: 0.14 m/s | |IVC diameter: 2.19 cm [...] A Cindy: 0.56 m/s | |TV Dec Forrest: 4.82 m/s2 | |TV Dec Time: 116.68 ms | |TV E Cindy: 0.56 m/s | |TV E/A Ratio: 1 | | | |Reprint Sorter: KVW | |Authenticated by: Daina Alan MD [...] | | | Fingerstick | performed at [facility];[address] | | LAB | | | | [address];[place], [place] | | | | | | [address] | | | | + + + [...] 1:53 PM PDT GILMA SALMONXR CHEST 1 VIEW05/10/2013 | | 5:22 AM [...] | | | | | [place] [address] | | | | + + + + + + | Non- | 3.73Comment: Testing | 3.70 - 5.10 | EXTERNAL | | | Red Blood | performed at [facility], [address] | M/uL | LAB | | | Cells | [address], | | | | | Counted | [place] [address] | | | | + + + + + + | Hemoglobin | 10.6 (L)Comment: Testing | 11.3 - 15.5 | EXTERNAL | | | | performed at [facility], [address] | g/dL | LAB | | | | [address], | | | | | | [place] [address] | | | | + + + + + + | Hematocrit, | 30.5 (L)Comment: Testing | 34.0 - 46.0 % | EXTERNAL | | | POC | performed at [facility], [address] | | LAB | | | | [address], | | | | | | [place] [address] | | | | + + + + + + | MCV | 81.8Comment: Testing | 80.0 - 100.0 fl | EXTERNAL | | | | performed at [facility], [address] | | LAB | | | | [address], | | | | | | [place] [address] | | | | + + + + + + | MCH | 28.4Comment: Testing | 27.0 - 34.0 pg | EXTERNAL | | | | performed at [facility], [address] | | LAB | | | | [address], | | | | | | [place] [address] | | | | + + + + + + | MCHC | 34.7Comment: Testing | 32.0 - 35.5 | EXTERNAL | | | | performed at [facility], [address] | g/dL | LAB | | | | [address], | | | | | | [place] [address] | | | | + + + + + + | RDW-CV | 41.1Comment: Testing | 37 - 53 fl | EXTERNAL | | | | performed at [facility], [address] | | LAB | | | | [address], | | | | | | [place] [address] | | | | + + + + + + | Platelet | 360Comment: Testing | 150 - 400 K/uL | EXTERNAL | | | Count | performed at [facility], [address] | | LAB | | | Plasma | [address], | | | | | | [place] [address] | | | | + + + + + + | MPV | 7.5Comment: Testing | fl | EXTERNAL | | | | performed at [facility], [address] | | LAB | | | | [address], | | | | | | [place] [address] | | | | + + + + + + | Differentia | AUTOMATEDComment: | | EXTERNAL | | | l Type | Testing performed at | | LAB | | | | [facility], [address] | | | | | | [place], [place] | | | | | | [address] | | | | + + + [...] | | | | | [place] [address] | | | | + + + + + + | K | 3.6Comment: Testing | 3.5 - 4.9 | EXTERNAL | | | | performed at [facility], [address] | mmol/L | LAB | | | | [address], | | | | | | [place] [address] | | | | + + + + + + | Cl | 100Comment: Testing | 99 - 109 mmol/L | EXTERNAL | | | | performed at [facility], [address] | | LAB | | | | [address], | | | | | | [place] [address] | | | | + + + + + + | CO2 | 25Comment: Testing | 23 - 32 mmol/L | EXTERNAL | | | | performed at [facility], [address] | | LAB | | | | [address], | | | | | | [place] [address] | | | | + + + + + + | Anion Gap | 9Comment: Testing | 5 - 20 mmol/L | EXTERNAL | | | | performed at [facility], [address] | | LAB | | | | [address], | | | | | | [place] [address] | | | | + + + + + + | Glucose, | 144 (H)Comment: Testing | 65 - 99 mg/dL | EXTERNAL | | | Fasting | performed at [facility], [address] | | LAB | | | | [address], | | | | | | [place] [address] | | | | + + + + + + | BUN | 15Comment: Testing | 8 - 25 mg/dL | EXTERNAL | | | | performed at [facility], [address] | | LAB | | | | [address], | | | | | | [place] [address] | | | | + + + + + + | Creatinine | 0.39 (L)Comment: Testing | 0.50 - 1.00 | EXTERNAL | | | | performed at [facility], [address] | mg/dL | LAB | | | | [address], | | | | | | [place] [address] | | | | + + + + + + | BUN/Creatin | 38Comment: Testing | | EXTERNAL | | | ine Ratio | performed at [facility], [address] | | LAB | | | [address], | | | | | | [place] [address] | | | | + + + + + + | Calcium | 8.0 (L)Comment: Testing | 8.5 - 10.2 | EXTERNAL | | | | performed at [facility], [address] | mg/dL | LAB | | | | [address], | | | | | | [place] [address] | | | | + + + [...] | | | | | | at [facility], [address] | | | | | | [address], | | | | | | [place] [address] | | | | + + + [...] | | | Fingerstick | performed at [facility];[address] | | LAB | | | | [address];[place] | | | | | | [address] | | | | + + + [...] EXTERNAL | | | | performed at [facility];[address] | mmol/L | LAB | | | | [address];[place], [place] | | | | | | [address] | | | | + + + [...] EXTERNAL | | | | performed at [facility];[address] | | LAB | | | | [address];[place], [place] | | | | | | [address] | | | | + + + [...] EXTERNAL | | | | performed at [facility] | | LAB | | | | [address];[place], [place] | | | | | | [address] | | | | + + + [...] | | | Fingerstick | performed at [facility];[address] | | LAB | | | | [address];[place] | | | | | | [address] | | | | + + + [...] | | | Fingerstick | performed at [facility];[address] | | LAB | | | | [address];[place] | | | | | | [address] | | | | + + + [...] EXTERNAL | | | | performed at [facility];[address] | mmol/L | LAB | | | | [address];[place], [place] | | | | | | [address] | | | | + + + [...] EXTERNAL | | | | performed at [facility] | | LAB | | | | [address];[place], [place] | | | | | | [address] | | | | + + + [...] EXTERNAL | | | | performed at [facility];[address] | | LAB | | | | [address];[place], [place] | | | | | | [address] | | | | + + + [...] | | | Fingerstick | performed at [facility];[address] | | LAB | | | | [address];[place], [place] | | | | | | [address] | | | | + + + [...] EXTERNAL | | | | performed at [facility];[address] | | LAB | | | | [address];[place], [place] | | | | | | [address] | | | | + + + + + + | Non- | 3.95Comment: Testing | 3.70 - 5.10 | EXTERNAL | | | Red Blood | performed at [facility];[address] | M/uL | LAB | | | Cells | [address];[place] | | | | | Counted | [address] | | | | + + + + + + | Hemoglobin | 10.9 (L)Comment: Testing | 11.3 - 15.5 | EXTERNAL | | | | performed at [facility];888 | g/dL | LAB | | | | [address];[place] | | | | | | [address] | | | | + + + + + + | Hematocrit, | 32.0 (L)Comment: Testing | 34.0 - 46.0 % | EXTERNAL | | | POC | performed at [facility];[address] | | LAB | | | | [address];[place] | | | | | | [address] | | | | + + + + + + | MCV | 81.0Comment: Testing | 80.0 - 100.0 fl | EXTERNAL | | | | performed at [facility];[address] | | LAB | | | | [address];[place] | | | | | | [address] | | | | + + + + + + | MCH | 27.7Comment: Testing | 27.0 - 34.0 pg | EXTERNAL | | | | performed at [facility];[address] | | LAB | | | | [address];[place] | | | | | | [address] | | | | + + + + + + | MCHC | 34.2Comment: Testing | 32.0 - 35.5 | EXTERNAL | | | | performed at [facility];888 | g/dL | LAB | | | | [address];[place] | | | | | | [address] | | | | + + + + + + | RDW-CV | 42.9Comment: Testing | 37 - 53 fl | EXTERNAL | | | | performed at [facility];[address] | | LAB | | | | [address];[place] | | | | | | [address] | | | | + + + + + + | Platelet | 363Comment: Testing | 150 - 400 K/uL | EXTERNAL | | | Count | performed at [facility];[address] | | LAB | | | Plasma | [address];[place] | | | | | | [address] | | | | + + + + + + | MPV | 7.1Comment: Testing | fl | EXTERNAL | | | | performed at [facility];[address] | | LAB | | | | [address];[place] | | | | | | [address] | | | | + + + + + + | Differentia | AUTOMATEDComment: | | EXTERNAL | | | l Type | Testing performed at | | LAB | | | | [facility];[address];[place] [address] | | | | + + + [...] EXTERNAL | | | | performed at [facility];[address] | | LAB | | | | [address];[place], [place] | | | | | | [address] | | | | + + + [...] EXTERNAL | | | | performed at [facility];[address] | | LAB | | | | [address];[place], [place] | | | | | | [address] | | | | + + + [...] EXTERNAL | | | | performed at [facility];[address] | mmol/L | LAB | | | | [address];[place] | | | | | | [address] | | | | + + + + + + | K | 3.9Comment: Testing | 3.5 - 4.9 | EXTERNAL | | | | performed at [facility];[address] | mmol/L | LAB | | | | [address];[place] | | | | | | [address] | | | | + + + + + + | Cl | 106Comment: Testing | 99 - 109 mmol/L | EXTERNAL | | | | performed at [facility];[address] | | LAB | | | | [address];[place] | | | | | | [address] | | | | + + + + + + | CO2 | 26Comment: Testing | 23 - 32 mmol/L | EXTERNAL | | | | performed at [facility];[address] | | LAB | | | | [address];[place] | | | | | | [address] | | | | + + + + + + | Anion Gap | 10Comment: Testing | 5 - 20 mmol/L | EXTERNAL | | | | performed at [facility];[address] | | LAB | | | | [address];[place] | | | | | | [address] | | | | + + + + + + | Glucose, | 160 (H)Comment: Testing | 65 - 99 mg/dL | EXTERNAL | | | Fasting | performed at [facility];[address] | | LAB | | | | [address];[place] | | | | | | [address] | | | | + + + + + + | BUN | 16Comment: Testing | 8 - 25 mg/dL | EXTERNAL | | | | performed at [facility];[address] | | LAB | | | | [address];[place] | | | | | | [address] | | | | + + + + + + | Creatinine | 0.61Comment: Testing | 0.50 - 1.00 | EXTERNAL | | | | performed at [facility];[address] | mg/dL | LAB | | | | [address];[place] | | | | | | [address] | | | | + + + + + + | BUN/Creatin | 26Comment: Testing | | EXTERNAL | | | ine Ratio | performed at [facility];[address] | | LAB | | | | [address];[place] | | | | | | [address] | | | | + + + + + + | Calcium | 8.1 (L)Comment: Testing | 8.5 - 10.2 | EXTERNAL | | | | performed at [facility];[address] | mg/dL | LAB | | | | [address];[place] | | | | | | [address] | | | | + + + [...] | | | | | | at [facility];[address];[place] [address] | | | | + + + [...] | | | Fingerstick | performed at [facility];[address] | | LAB | | | | [address];[place], [place] | | | | | | [address] | | | | + + + [...] | | | Fingerstick | performed at [facility];[address] | | LAB | | | | [address];[place], [place] | | | | | | [address] | | | | + + + [...] EXTERNAL | | | | performed at [facility];[address] | mmol/L | LAB | | | | [address];[place], [place] | | | | | | [address] | | | | + + + [...] | | | Fingerstick | performed at [facility];[address] | | LAB | | | | [address];[place] | | | | | | [address] | | | | + + + [...] EXTERNAL | | | | performed at [facility];[address] | mmol/L | LAB | | | | [address];[place], [place] | | | | | | [address] | | | | + + + [...] EXTERNAL | | | | performed at [facility];[address] | | LAB | | | | [address];[place] | | | | | | [address] | | | | + + + [...] EXTERNAL | | | | performed at [facility];[address] | | LAB | | | | [address];[place], [place] | | | | | | [address] | | | | + + + [...] EXTERNAL | | | | performed at [facility];[address] | | LAB | | | | [address];[place] | | | | | | [address] | | | | + + + + + + | Non- | 4.07Comment: Testing | 3.70 - 5.10 | EXTERNAL | | | Red Blood | performed at [facility];888 | M/uL | LAB | | | Cells | [address];[place] | | | | | Counted | [address] | | | | + + + + + + | Hemoglobin | 11.1 (L)Comment: Testing | 11.3 - 15.5 | EXTERNAL | | | | performed at [facility];888 | g/dL | LAB | | | | [address];[place] | | | | | | [address] | | | | + + + + + + | Hematocrit, | 32.9 (L)Comment: Testing | 34.0 - 46.0 % | EXTERNAL | | | POC | performed at [facility];[address] | | LAB | | | | [address];[place] | | | | | | [address] | | | | + + + + + + | MCV | 80.8Comment: Testing | 80.0 - 100.0 fl | EXTERNAL | | | | performed at [facility];[address] | | LAB | | | | [address];[place] | | | | | | [address] | | | | + + + + + + | MCH | 27.3Comment: Testing | 27.0 - 34.0 pg | EXTERNAL | | | | performed at [facility];[address] | | LAB | | | | [address];[place] | | | | | | [address] | | | | + + + + + + | MCHC | 33.8Comment: Testing | 32.0 - 35.5 | EXTERNAL | | | | performed at [facility];888 | g/dL | LAB | | | | [address];[place] | | | | | | [address] | | | | + + + + + + | RDW-CV | 41.1Comment: Testing | 37 - 53 fl | EXTERNAL | | | | performed at [facility];[address] | | LAB | | | | [address];[place] | | | | | | [address] | | | | + + + + + + | Platelet | 307Comment: Testing | 150 - 400 K/uL | EXTERNAL | | | Count | performed at [facility];[address] | | LAB | | | Plasma | [address];[place] | | | | | | [address] | | | | + + + + + + | MPV | 7.5Comment: Testing | fl | EXTERNAL | | | | performed at [facility];[address] | | LAB | | | | [address];[place] | | | | | | [address] | | | | + + + + + + | Differentia | AUTOMATEDComment: | | EXTERNAL | | | l Type | Testing performed at | | LAB | | | | [facility];[address];[place] [address] | | | | + + + [...] EXTERNAL | | | | performed at [facility];[address] | | LAB | | | | [address];[place] | | | | | | [address] | | | | + + + [...] LAB | | | | performed at [facility] | | | | | | [address];[place] | | | | | | [address] | | | | + + + [...] EXTERNAL | | | | performed at [facility];888 | mmol/L | LAB | | | | [address];[place] | | | | | | [address] | | | | + + + + + + | K | 3.7Comment: SLT | 3.5 - 4.9 | EXTERNAL | | | | HEMOLYSISTesting | mmol/L | LAB | | | | performed at [facility];[address] | | | | | | [address];[place] | | | | | | [address] | | | | + + + + + + | Cl | 106Comment: Testing | 99 - 109 mmol/L | EXTERNAL | | | | performed at [facility];[address] | | LAB | | | | [address];[place] | | | | | | [address] | | | | + + + + + + | CO2 | 26Comment: Testing | 23 - 32 mmol/L | EXTERNAL | | | | performed at [facility];[address] | | LAB | | | | [address];[place] | | | | | | [address] | | | | + + + + + + | Anion Gap | 10Comment: Testing | 5 - 20 mmol/L | EXTERNAL | | | | performed at [facility];[address] | | LAB | | | | [address];[place] | | | | | | [address] | | | | + + + + + + | Glucose, | 179 (H)Comment: Testing | 65 - 99 mg/dL | EXTERNAL | | | Fasting | performed at [facility];[address] | | LAB | | | | [address];[place] | | | | | | [address] | | | | + + + + + + | BUN | 16Comment: Testing | 8 - 25 mg/dL | EXTERNAL | | | | performed at [facility];[address] | | LAB | | | | [address];[place] | | | | | | [address] | | | | + + + + + + | Creatinine | 0.62Comment: Testing | 0.50 - 1.00 | EXTERNAL | | | | performed at [facility];888 | mg/dL | LAB | | | | [address];[place] | | | | | | [address] | | | | + + + + + + | BUN/Creatin | 26Comment: Testing | | EXTERNAL | | | ine Ratio | performed at [facility];[address] | | LAB | | | | [address];[place] | | | | | | [address] | | | | + + + + + + | Calcium | 7.9 (L)Comment: Testing | 8.5 - 10.2 | EXTERNAL | | | | performed at [facility];888 | mg/dL | LAB | | | | [address];[place] | | | | | | [address] | | | | + + + [...] | | | | | | at [facility];[address] [place] [address] | | | | | | Blvd;[place] [address] | | | | + + + [...] Fox, Rad Conversion - 11/20/2018 1:53 PM ISI [id number] yearsXR | | CHEST 1 VIEW05/08/2013 5:49 [...] | | | Fingerstick | performed at [facility];[address] | | LAB | | | | [address];[place], [place] | | | | | | [address] | | | | + + + [...] | | | Fingerstick | performed at [facility] | | LAB | | | | [address];[place] | | | | | | [address] | | | | + + + [...] | | | Fingerstick | performed at [facility];[address] | | LAB | | | | [address];[place], [place] | | | | | | [address] | | | | + + + [...] EXTERNAL | | | | performed at [facility];888 | mmol/L | LAB | | | | [address];[place] | | | | | | [address] | | | | + + + [...] | EXTERNAL LAB | | performed at [facility];[address] [place] [address];[place] [address] 027 NAP1 BI | | | 027 NAP1 BI PRESUMPTIVE NEGATIVE | | | Detection of 027 NAP1 BI strains of C. difficile is presumptive and | | | for epidemiological purposes and not intended to guide or monitor | | | treatment for C. difficile infections. Testing performed at [facility] | | | [facility];[place] [address] | | + + + + +---------+ [...] | | | Fingerstick | performed at [facility];[address] | | LAB | | | | [address];[place], [place] | | | | | | [address] | | | | + + + [...] EXTERNAL | | | | performed at [facility] | | LAB | | | | [address];[place] | | | | | | [address] | | | | + + + + + + | Non- | 4.28Comment: Testing | 3.70 - 5.10 | EXTERNAL | | | Red Blood | performed at [facility];888 | M/uL | LAB | | | Cells | [address];[place] | | | | | Counted | [address] | | | | + + + + + + | Hemoglobin | 11.8Comment: Testing | 11.3 - 15.5 | EXTERNAL | | | | performed at [facility];888 | g/dL | LAB | | | | [address];[place] | | | | | | [address] | | | | + + + + + + | Hematocrit, | 35.0Comment: Testing | 34.0 - 46.0 % | EXTERNAL | | | POC | performed at [facility];[address] | | LAB | | | | [address];[place] | | | | | | [address] | | | | + + + + + + | MCV | 81.7Comment: Testing | 80.0 - 100.0 fl | EXTERNAL | | | | performed at [facility];[address] | | LAB | | | | [address];[place] | | | | | | [address] | | | | + + + + + + | MCH | 27.6Comment: Testing | 27.0 - 34.0 pg | EXTERNAL | | | | performed at [facility];[address] | | LAB | | | | [address];[place] | | | | | | [address] | | | | + + + + + + | MCHC | 33.8Comment: Testing | 32.0 - 35.5 | EXTERNAL | | | | performed at [facility];888 | g/dL | LAB | | | | [address];[place] | | | | | | [address] | | | | + + + + + + | RDW-CV | 42.4Comment: Testing | 37 - 53 fl | EXTERNAL | | | | performed at [facility];[address] | | LAB | | | | [address];[place] | | | | | | [address] | | | | + + + + + + | Platelet | 260Comment: Testing | 150 - 400 K/uL | EXTERNAL | | | Count | performed at [facility];[address] | | LAB | | | Plasma | [address];[place] | | | | | | [address] | | | | + + + + + + | MPV | 8.0Comment: Testing | fl | EXTERNAL | | | | performed at [facility];[address] | | LAB | | | | [address];[place] | | | | | | [address] | | | | + + + + + + | Differentia | AUTOMATEDComment: | | EXTERNAL | | | l Type | Testing performed at | | LAB | | | | [facility];[address] | [address];[place] [address] | | | | + + + [...] EXTERNAL | | | | performed at [facility] | | LAB | | | | [address] [facility];[place], [place] | | | | | | [address] | | | | + + + [...] EXTERNAL | | | | performed at [facility];[address] | | LAB | | | | [address];[place] | | | | | | [address] | | | | + + + [...] EXTERNAL | | | | performed at [facility];888 | mmol/L | LAB | | | | [address];[place] | | | | | | [address] | | | | + + + + + + | K | 3.7Comment: Testing | 3.5 - 4.9 | EXTERNAL | | | | performed at [facility];888 | mmol/L | LAB | | | | [address];[place] | | | | | | [address] | | | | + + + + + + | Cl | 108Comment: Testing | 99 - 109 mmol/L | EXTERNAL | | | | performed at [facility];[address] | | LAB | | | | [address];[place] | | | | | | [address] | | | | + + + + + + | CO2 | 24Comment: Testing | 23 - 32 mmol/L | EXTERNAL | | | | performed at [facility];[address] | | LAB | | | | [address];[place] | | | | | | [address] | | | | + + + + + + | Anion Gap | 13Comment: Testing | 5 - 20 mmol/L | EXTERNAL | | | | performed at [facility];[address] | | LAB | | | | [address];[place] | | | | | | [address] | | | | + + + + + + | Glucose, | 125 (H)Comment: Testing | 65 - 99 mg/dL | EXTERNAL | | | Fasting | performed at [facility];[address] | | LAB | | | | [address];[place] | | | | | | [address] | | | | + + + + + + | BUN | 12Comment: Testing | 8 - 25 mg/dL | EXTERNAL | | | | performed at [facility];[address] | | LAB | | | | [address];[place] | | | | | | [address] | | | | + + + + + + | Creatinine | 0.76Comment: Testing | 0.50 - 1.00 | EXTERNAL | | | | performed at [facility];888 | mg/dL | LAB | | | | [address];[place] | | | | | | [address] | | | | + + + + + + | BUN/Creatin | 15Comment: Testing | | EXTERNAL | | | ine Ratio | performed at [facility];[address] | | LAB | | | | [address];[place] | | | | | | [address] | | | | + + + + + + | Calcium | 7.9 (L)Comment: Testing | 8.5 - 10.2 | EXTERNAL | | | | performed at [facility];888 | mg/dL | LAB | | | | [address];[place] | | | | | | [address] | | | | + + + [...] | | | | | | at [facility];[address] | | | | | | [facility];[place] [address] | | | | + + + [...] | | | Fingerstick | performed at [facility];8 | | LAB | | | | [address];[place], [place] | | | | | | [address] | | | | + + + [...] | | | Fingerstick | performed at [facility];[address] | | LAB | | | | [address];[place] | | | | | | [address] | | | | + + + [...] | | | Fingerstick | performed at [facility];[address] | | LAB | | | | [address];[place] | | | | | | [address] | | | | + + + [...] | | | Fingerstick | performed at [facility];[address] | | LAB | | | | [address];[place], [place] | | | | | | [address] | | | | + + + [...] | | | Fingerstick | performed at [facility];[address] | | LAB | | | | [address];[place] | | | | | | [address] | | | | + + + [...] | | | Fingerstick | performed at [facility];[address] | | LAB | | | | [address];[place], [place] | | | | | | [address] | | | | + + + [...] EXTERNAL | | | | performed at [facility];888 | mmol/L | LAB | | | | [address];[place] | | | | | | [address] | | | | + + + [...] EXTERNAL | | | | performed at [facility];[address] | | LAB | | | | [address];[place], [place] | | | | | | [address] | | | | + + + [...] | | | Fingerstick | performed at [facility];[address] | | LAB | | | | [address];[place] | | | | | | [address] | | | | + + + [...] | | | Fingerstick | performed at [facility];[address] | | LAB | | | | [address];[place], [place] | | | | | | [address] | | | | + + + [...] | | | Fingerstick | performed at [facility];8 | | LAB | | | | [address];[place] | | | | | | [address] | | | | + + + + + + + + | Specimen | + + | | + + + +---------+ + + | Performing | Address | City/State/Zipcode | Phone Number | | Organization | | | | + +---------+ + + | EXTERNAL LAB | | | | + +---------+ + + XR Chest 1 Vw 05/06/2013 5:42 AM PST) + + | Specimen | [...] | | | Fingerstick | performed at [facility];[address] | | LAB | | | | [address];[place] | | | | | | [address] | | | | + + + [...] | | | | | [place] [address] | | | | + + + + + + | Non- | 4.48Comment: Testing | 3.70 - 5.10 | EXTERNAL | | | Red Blood | performed at [facility], [address] | M/uL | LAB | | | Cells | [address], | | | | | Counted | [place] [address] | | | | + + + + + + | Hemoglobin | 11.7Comment: Testing | 11.3 - 15.5 | EXTERNAL | | | | performed at [facility], [address] | g/dL | LAB | | | | [address], | | | | | | [place] [address] | | | | + + + + + + | Hematocrit, | 36.6Comment: Testing | 34.0 - 46.0 % | EXTERNAL | | | POC | performed at [facility], [address] | | LAB | | | | [address], | | | | | | [place] [address] | | | | + + + + + + | MCV | 81.7Comment: Testing | 80.0 - 100.0 fl | EXTERNAL | | | | performed at [facility], [address] | | LAB | | | | [address], | | | | | | [place] [address] | | | | + + + + + + | MCH | 26.1 (L)Comment: Testing | 27.0 - 34.0 pg | EXTERNAL | | | | performed at [facility], [address] | | LAB | | | | [address], | | | | | | [place] [address] | | | | + + + + + + | MCHC | 32.0Comment: Testing | 32.0 - 35.5 | EXTERNAL | | | | performed at [facility], [address] | g/dL | LAB | | | | [address], | | | | | | [place] [address] | | | | + + + + + + | RDW-CV | 39.8Comment: Testing | 37 - 53 fl | EXTERNAL | | | | performed at [facility], [address] | | LAB | | | | [address], | | | | | | [place] [address] | | | | + + + + + + | Platelet | 202Comment: Testing | 150 - 400 K/uL | EXTERNAL | | | Count | performed at [facility], [address] | | LAB | | | Plasma | [address], | | | | | | [place] [address] | | | | + + + + + + | MPV | 8.3Comment: Testing | fl | EXTERNAL | | | | performed at [facility], [address] | | LAB | | | | [address], | | | | | | [place] [address] | | | | + + + + + + | Differentia | AUTOMATEDComment: | | EXTERNAL | | | l Type | Testing performed at | | LAB | | | | [facility], [address] [facility] | | | | | | [place] | | | | | | [address] | | | | + + + [...] EXTERNAL | | | | performed at [facility];[address] | | LAB | | | | [address];[place] | | | | | | [address] | | | | + + + [...] EXTERNAL | | | | performed at [facility];[address] | | LAB | | | | [address];[place] | | | | | | [address] | | | | + + + [...] | EXTERNAL | | | A1c | Haitian Diabetes | | LAB | | | [...] | | | | | performed at [facility], [address] | | | | | [address] [facility], | | | | | | [place] [address] | | | | + + + [...] | | | | | performed at [facility], [address] | | | | | | [facility], | | | | | | [place] [address] | | | | + + + [...] EXTERNAL | | | | performed at [facility];[address] | | LAB | | | | [address];[place], [place] | | | | | | [address] | | | | + + + [...] EXTERNAL | | | | performed at [facility];[address] | mmol/L | LAB | | | | [address];[place] | | | | | | [address] | | | | + + + + + + | K | 3.7Comment: Testing | 3.5 - 4.9 | EXTERNAL | | | | performed at [facility];888 | mmol/L | LAB | | | | [address];[place] | | | | | | [address] | | | | + + + + + + | Cl | 109Comment: Testing | 99 - 109 mmol/L | EXTERNAL | | | | performed at [facility];[address] | | LAB | | | | [address];[place] | | | | | | [address] | | | | + + + + + + | CO2 | 25Comment: Testing | 23 - 32 mmol/L | EXTERNAL | | | | performed at [facility];[address] | | LAB | | | | [address];[place] | | | | | | [address] | | | | + + + + + + | Anion Gap | 11Comment: Testing | 5 - 20 mmol/L | EXTERNAL | | | | performed at [facility];[address] | | LAB | | | | [address];[place] | | | | | | [address] | | | | + + + + + + | Glucose, | 97Comment: Testing | 65 - 99 mg/dL | EXTERNAL | | | Fasting | performed at [facility];[address] | | LAB | | | | [address];[place] | | | | | | [address] | | | | + + + + + + | BUN | 6 (L)Comment: Testing | 8 - 25 mg/dL | EXTERNAL | | | | performed at [facility];[address] | | LAB | | | | [address];[place] | | | | | | [address] | | | | + + + + + + | Creatinine | 0.70Comment: Testing | 0.50 - 1.00 | EXTERNAL | | | | performed at [facility];[address] | mg/dL | LAB | | | | [address];[place] | | | | | | [address] | | | | + + + + + + | BUN/Creatin | 9Comment: Testing | | EXTERNAL | | | ine Ratio | performed at [facility];[address] | | LAB | | | | [address];[place] | | | | | | [address] | | | | + + + + + + | Calcium | 7.5 (L)Comment: Testing | 8.5 - 10.2 | EXTERNAL | | | | performed at [facility];[address] | mg/dL | LAB | | | | [address];[place] | | | | | | [address] | | | | + + + [...] | | | | | | at [facility];[address] [place] [address] | | | | | | [facility];[place] [address] | | | | + + + [...] | | | Fingerstick | performed at [facility];[address] | | LAB | | | | [address];[place] | | | | | | [address] | | | | + + + [...] | | | Fingerstick | performed at [facility];[address] | | LAB | | | | [address];[place] | | | | | | [address] | | | | + + + [...] | | | Fingerstick | performed at [facility];[address] | | LAB | | | | [address];[place], [place] | | | | | | [address] | | | | + + + [...] | | | Fingerstick | performed at [facility];[address] | | LAB | | | | [address];[place] | | | | | | [address] | | | | + + + [...] | | | Fingerstick | performed at [facility];[address] | | LAB | | | | [address];[place], [place] | | | | | | [address] | | | | + + + [...] EXTERNAL | | | | performed at [facility];888 | mmol/L | LAB | | | | [address];[place] | | | | | | [address] | | | | + + + [...] EXTERNAL | | | | performed at [facility];[address] | | LAB | | | | [address];[place], [place] | | | | | | [address] | | | | + + + [...] EXTERNAL | | | | performed at [facility];[address] | | LAB | | | | [address];[place] | | | | | | [address] | | | | + + + [...] | Testing performed at | | | [facility];[address] [facility];[place] [address] CULTURE | | | NO GROWTH | | | Testing performed at [facility], [address] [facility], | | | [place] [address] REPORT STATUS | | | 05/06/2013 FINAL [...] EXTERNAL | | | | performed at [facility];[address] | | LAB | | | | [address];[place] | | | | | | [address] | | | | + + + + + + | RBC, UA | 16-25Comment: Testing | 0 - 5 /hpf | EXTERNAL | | | | performed at [facility];[address] | | LAB | | | | [address];[place] | | | | | | [address] | | | | + + + + + + | Epithelial | 1-5Comment: Testing | /lpf | EXTERNAL | | | Cells | performed at [facility];[address] | | LAB | | | | [address];[place] | | | | | | [address] | | | | + + + + + + | Bacteria, | 1+ (A)Comment: Testing | | EXTERNAL | | | UA | performed at [facility];[address] | | LAB | | | | [address];[place] | | | | | | [address] | | | | + + + [...] EXTERNAL | | | | performed at [facility];[address] | | LAB | | | | [address];[place] | | | | | | [address] | | | | + + + + + + | Clarity, | CLOUDYComment: Testing | | EXTERNAL | | | Urine | performed at [facility];[address] | | LAB | | | | [address];[place] | | | | | | [address] | | | | + + + + + + | Specific | 1.015Comment: Testing | 1.001 - 1.035 | EXTERNAL | | | [place], | performed at [facility];[address] | | LAB | | | Urine | [address];[place] | | | | | | [address] | | | | + + + + + + | Leukocyte | SMALL (A)Comment: | | EXTERNAL | | | Esterase, | Testing performed at | | LAB | | | Urine | [facility];[address];[place] [address] | | | | + + + + + + | Nitrite, | NEGATIVEComment: Testing | | EXTERNAL | | | Urine | performed at [facility];[address] | | LAB | | | | [address];[place] | | | | | | [address] | | | | + + + + + + | Urobilinoge | 0.2Comment: Testing | mg/dL | EXTERNAL | | | n, Urine | performed at [facility];[address] | | LAB | | | | [address];[place] | | | | | | [address] | | | | + + + + + + | Protein, | NEGATIVEComment: Testing | mg/dL | EXTERNAL | | | Urine | performed at [facility];[address] | | LAB | | | | [address];[place] | | | | | | [address] | | | | + + + + + + | pH, Urine | 6.0Comment: Testing | 4.6 - 8.0 | EXTERNAL | | | | performed at [facility];[address] | | LAB | | | | [address];[place] | | | | | | [address] | | | | + + + + + + | Blood, | LARGE (A)Comment: | | EXTERNAL | | | Urine | Testing performed at | | LAB | | | | [facility];[address];[place] [address] | | | | + + + + + + | Ketones | NEGATIVEComment: Testing | mg/dL | EXTERNAL | | | | performed at [facility];[address] | | LAB | | | | [address];[place] | | | | | | [address] | | | | + + + + + + | Bilirubin, | NEGATIVEComment: Testing | | EXTERNAL | | | Urine | performed at [facility];[address] | | LAB | | | | [address];[place] | | | | | | [address] | | | | + + + + + + | Glucose, | NEGATIVEComment: Testing | mg/dL | EXTERNAL | | | Urine | performed at [facility];[address] | | LAB | | | | [address];[place] | | | | | | [address] | | | | + + + [...] | | | Fingerstick | performed at [facility];[address] | | LAB | | | | [address];[place], [place] | | | | | | [address] | | | | + + + [...] | | | Fingerstick | performed at [facility];[address] | | LAB | | | | [address];[place] | | | | | | [address] | | | | + + + [...] | Testing performed | | | at [facility];[address] [place] [address];[place] [address] SPECIAL REQUESTS | | | RAC | | | Testing performed at [facility];[address] [place] [address];[place] [address] | | | CULTURE NO GROWTH 6 DAYS | | | Testing performed | | | at [facility], [address] [place] [address] REPORT STATUS | | | 05/11/2013 FINAL [...] | | | Fingerstick | performed at [facility];[address] | | LAB | | | | [address] [facility];[place], [place] | | | | | | [address] | | | | + + + [...] | | described. Electronically signed by Naveed Hutson MD on | | | 05/05/2013 3:01 [...] EXTERNAL | | | | performed at [facility];[address] | | LAB | | | | [address];[place] | | | | | | [address] | | | | + + + + + + | Non- | 4.48Comment: Testing | 3.70 - 5.10 | EXTERNAL | | | Red Blood | performed at [facility];[address] | M/uL | LAB | | | Cells | [address];[place] | | | | | Counted | [address] | | | | + + + + + + | Hemoglobin | 12.4Comment: Testing | 11.3 - 15.5 | EXTERNAL | | | | performed at [facility];888 | g/dL | LAB | | | | [address];[place] | | | | | | [address] | | | | + + + + + + | Hematocrit, | 36.1Comment: Testing | 34.0 - 46.0 % | EXTERNAL | | | POC | performed at [facility];[address] | | LAB | | | | [address];[place] | | | | | | [address] | | | | + + + + + + | MCV | 80.6Comment: Testing | 80.0 - 100.0 fl | EXTERNAL | | | | performed at [facility];888 | | LAB | | | | [address];[place] | | | | | | [address] | | | | + + + + + + | MCH | 27.7Comment: Testing | 27.0 - 34.0 pg | EXTERNAL | | | | performed at [facility];888 | | LAB | | | | [address];[place] | | | | | | [id number] | | | | + + + + + + | MCHC | 34.3Comment: Testing | 32.0 - 35.5 | EXTERNAL | | | | performed at [facility];888 | g/dL | LAB | | | | [address];[place] | | | | | | [address] | | | | + + + + + + | RDW-CV | 41.1Comment: Testing | 37 - 53 fl | EXTERNAL | | | | performed at [facility];888 | | LAB | | | | [address];[place] | | | | | | [address] | | | | + + + + + + | Platelet | 211Comment: Testing | 150 - 400 K/uL | EXTERNAL | | | Count | performed at [facility];888 | | LAB | | | Plasma | [address];[place] | | | | | | [address] | | | | + + + + + + | MPV | 8.2Comment: Testing | fl | EXTERNAL | | | | performed at [facility];[address] | | LAB | | | | [address];[place] | | | | | | [address] | | | | + + + + + + | Differentia | AUTOMATEDComment: | | EXTERNAL | | | l Type | Testing performed at | | LAB | | | | [facility];[address];[place] [address] | | | | + + + [...] EXTERNAL | | | | performed at [facility];[address] | | LAB | | | | [address];[place], [place] | | | | | | [address] | | | | + + + [...] EXTERNAL | | | | performed at [facility] | | LAB | | | | [facility];[place], [place] | | | | | | [address] | | | | + + + [...] EXTERNAL | | | | performed at [facility];888 | mmol/L | LAB | | | | [address];[place], [place] | | | | | | [address] | | | | + + + + + + | K | 3.4 (L)Comment: Testing | 3.5 - 4.9 | EXTERNAL | | | | performed at [facility];888 | mmol/L | LAB | | | | [address];[place] | | | | | | [address] | | | | + + + + + + | Cl | 104Comment: Testing | 99 - 109 mmol/L | EXTERNAL | | | | performed at [facility];888 | | LAB | | | | [address];[place] | | | | | | [address] | | | | + + + + + + | CO2 | 27Comment: Testing | 23 - 32 mmol/L | EXTERNAL | | | | performed at [facility];888 | | LAB | | | | [address];[place] | | | | | | [address] | | | | + + + + + + | Anion Gap | 11Comment: Testing | 5 - 20 mmol/L | EXTERNAL | | | | performed at [facility];888 | | LAB | | | | [address];[place] | | | | | | [address] | | | | + + + + + + | Glucose, | 188 (H)Comment: Testing | 65 - 99 mg/dL | EXTERNAL | | | Fasting | performed at [facility];888 | | LAB | | | | [address];[place] | | | | | | [address] | | | | + + + + + + | BUN | 3 (L)Comment: Testing | 8 - 25 mg/dL | EXTERNAL | | | | performed at [facility];888 | | LAB | | | | [address];[place] | | | | | | [address] | | | | + + + + + + | Creatinine | 0.81Comment: Testing | 0.50 - 1.00 | EXTERNAL | | | | performed at [facility];888 | mg/dL | LAB | | | | [address];[place] | | | | | | [address] | | | | + + + + + + | BUN/Creatin | 4Comment: Testing | | EXTERNAL | | | ine Ratio | performed at [facility];888 | | LAB | | | | [address];[place] | | | | | | [address] | | | | + + + + + + | Calcium | 7.6 (L)Comment: Testing | 8.5 - 10.2 | EXTERNAL | | | | performed at [facility];888 | mg/dL | LAB | | | | [address];[place] | | | | | | [address] | | | | + + + + + + | Protein, | 6.3Comment: Testing | 6.3 - 8.2 g/dL | EXTERNAL | | | Total | performed at [facility];888 | | LAB | | | | [address];[place] | | | | | | [address] | | | | + + + + + + | Albumin | 2.2 (L)Comment: Testing | 3.6 - 5.0 g/dL | EXTERNAL | | | | performed at [facility];888 | | LAB | | | | [address];[place] | | | | | | [address] | | | | + + + + + + | Globulin | 4.1Comment: Testing | 1.3 - 4.9 g/dL | EXTERNAL | | | | performed at [facility];888 | | LAB | | | | [address];[place] | | | | | | [address] | | | | + + + + + + | A/G Ratio | 0.5 (L)Comment: Testing | 1.0 - 2.4 | EXTERNAL | | | | performed at [facility];888 | | LAB | | | | [address];[place] | | | | | | [address] | | | | + + + + + + | Bilirubin | 0.5Comment: Testing | 0.1 - 1.5 mg/dL | EXTERNAL | | | Total | performed at [facility];888 | | LAB | | | | [address];[place] | | | | | | [address] | | | | + + + + + + | ALP, | 99Comment: Testing | 35 - 115 U/L | EXTERNAL | | | External | performed at [facility];888 | | LAB | | | | [address];[place] | | | | | | [address] | | | | + + + + + + | AST | 134 (H)Comment: Testing | 10 - 45 U/L | EXTERNAL | | | | performed at [facility];888 | | LAB | | | | [address];[place] | | | | | | [address] | | | | + + + + + + | ALT | 157 (H)Comment: Testing | 10 - 65 U/L | EXTERNAL | | | | performed at [facility];888 | | LAB | | | | [address];[place] | | | | | | [address] | | | | + + + [...] | | | | | | at [facility];[address] [place] [address] | | | | | | [facility];[place] [address] | | | | + + + [...] | Testing performed | | | at [facility];[address] [place] [address] SPECIAL REQUESTS | | | RAC | | | Testing performed at [facility];[address] [place] [address] | | | CULTURE NO GROWTH 6 DAYS | | | Testing performed | | | at [facility], [address] [place] [address] REPORT STATUS | | | 05/11/2013 FINAL [...] | | | Fingerstick | performed at [facility];888 | | LAB | | | | [address];[place] | | | | | | [address] | | | | + + + + + + + + | Specimen | + + | | + + + +---------+ + + | Performing | Address | City/State/Zipcode | Phone Number | | Organization | | | | + +---------+ + + | EXTERNAL LAB | | | | + +---------+ + + BRIANNA CROWLEY (05/05/2013 12:57 PM PST) + + | Specimen | + + | | + + + + + | Narrative | Performed At | + + + | [facility](NOSE) | EXTERNAL LAB | | Testing performed at [facility];[address] [place] [address];[place] [address] MRSA PCR | | | NEGATIVE Testing performed at | | | [facility];[address] [place] [address];[place] [address] | | + + + + +---------+ [...] | Testing performed at | | | [facility];[address] [facility];[place] [address] GRAM STAIN | | | GREATER THAN 10 WBCS/LPF | | | LESS THAN 10 SEC/LPF | | | NO ORGANISMS SEEN | | | Testing performed at [facility], [address] | | | [facility], [place] [address] CULTURE | | | NO GROWTH 2 DAYS | | | Testing performed at [facility], [address] [facility], | | | [place] [address] REPORT STATUS | | | 05/07/2013 FINAL [...] + | Acute respiratory distress syndrome (ARDS) ([facility]) Other pulmonary insufficiency, not | | elsewhere classified, following trauma and surgery | + + | Influenza A Influenza with other respiratory manifestations | + + | Morbid obesity with BMI of 45.0-49.9, adult ([facility]) | + + | Poorly controlled diabetes mellitus ([facility]) Type II or unspecified type diabetes | | mellitus without mention of complication, not stated as uncontrolled | + + | Secondary bacterial pneumonia | + + documented in this encounter
--- OUTSIDE RECORDS SUMMARY | ~2019-12-08 | XMS | Encounter Summary ---
Demographics + + + | Address | [address] | | | [place] [address] | + + + | Home Phone | | + + + | Preferred Language | Unknown | + + + | Marital Status | | + + + | Pentecostalism Affiliation | Unknown | + + + | Race | White | + + + | Ethnic Group | Not or | + + + Author + + + | Author | [facility] | | | and [place] | + + + | Organization | [facility] | | | and [...] Team Providers + +------+ + | Care Car Usher Name | Role | Phone | + +------+ + PCP | Unavailable | + +------+ + Encounter Details +--------+ + + + + | Date | Type | Department | Care Team | Description | +--------+ + + + + | 02/26/ | Hospital | [facility] | Fabián Salas | | | 2010 - | Encounter | MED CTR CANCER | MD [address] | | | | CENTER [address] | [address] | | | 03/06/ | | [place] | [place] [address] | | | 2010 | | [address] | [phone] | | | | | [phone] | | | +--------+ + + + [...] | | | | Visit | | [address] | | | | | | [place] [address] | | | | | | [phone] | | | | | | | | +--------+ + + + + documented as of this encounter Visit Diagnoses Not on filedocumented in this encounter"
--- OUTSIDE RECORDS SUMMARY | ~2019-12-08 | XMS | Encounter Summary ---
Demographics + + + | Address | [address] | | | [place] [address] | + + + | Home Phone [...] Providers + +------+ + | Care Supervisor Forming Department Name | Role | Phone | + [...] | | | | [place] | [phone] | | | | | [address] | | | | | | [phone] | | | +--------+ + + + [...] | | | | Visit | | [address] | | | | | | [place] [address] | | | | | | [phone] | | | | | | | | +--------+ + + + + documented as of this encounter Visit Diagnoses Not on filedocumented in this encounter"
--- OUTSIDE RECORDS SUMMARY | ~2019-12-08 | XMS | Encounter Summary ---
Demographics + + + | Address | [address] | | | [place] [address] | + + + | Home Phone [...] Team Providers + +------+ + | Care Service Dispatcher Name | Role | Phone | + +------+ + PCP | Unavailable | + +------+ + Encounter Details +--------+ + + + + | Date | Type | Department | Care Team | Description | +--------+ + + + + | 01/08/ | Hospital | [facility] | Fabián Salas | | | 2010 - | Encounter | MED CTR CANCER | MD [address] | | | | | CENTER [address] | [address] | | | 02/04/ | | [place] | [place] [address] | | | 2010 | | [address] | [phone] | | | | | [phone] | | | +--------+ + + + [...] 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 [employer] is the [...] | | | | Visit | | [facility] | | | | | | [place] [address] | | | | | | [phone] | | | | | | | [...] [facility] | | | activity | Performed: [facility] | | . [facility]EL | | | | [facility] | | MEDICAL | | | | [place], [facility] [address], | | [place] | | | | [place] [address] | | LABORATORY | | | | CLIA: [id number] | | | | + + + + + + + + | Specimen | + + | | + + + + + + + | Performing | Address | City/State/Zipcode | Phone Number | | Organization | | | | + + + + + | [facility] | [address] | [place] | [phone] | | [facility] | | [address] | | | - LABORATORY | | | | + + + + + | [facility] | [address] | [place] | | | [facility] | | [address], [facility] | | | - LABORATORY | [...] | STRadha MICHAEL | | | | [facility] | | MEDICAL | | | | Center, [address], | | CENTER - | | | | [place] [address] | | LABORATORY | | | | CLIA: [id number] | | | | + + + + + + + + | Specimen | + + | | + + + + + + + | Performing | Address | City/State/Zipcode | Phone Number | | Organization | | | | + + + + + | [facility] | [address] | [place] | [phone] | | [facility] | | [address] | | | - LABORATORY | | | | + + + + + | [facility] | [address] | [place] | | | [facility] | | [address], [facility] | | | - LABORATORY | [...] | | LABORATORY | | | | [facility] | | | | | | Center, [address], | | | | | | [place] [address] | | | | | | CLIA: [id number] | | | | + + + + + + + + | Specimen | + + | | + + + + + + + | Performing | Address | City/State/Zipcode | Phone Number | | Organization | | | | + + + + + | [facility] | [address] | [place] | [phone] | | [facility] | | [address] | | | - LABORATORY | | | | + + + + + | [facility] | [address] | [place] | | | [facility] | | [address], [facility] | | | - LABORATORY | [...] | | | | | agreement with [employer] | | | | | | [employer] | | | | | | [...] Toño | | | | | | [facility] | | | | | | [place], [address], | | | | | | [place] [address] | | | | | | [place]: [id number] | | | | + + + + + + + + | Specimen | + + | | + + + + + + + | Performing | Address | City/State/Zipcode | Phone Number | | Organization | | | | + + + + + | [facility] | [address] | [place] | [phone] | | [facility] | | [address] | | | - LABORATORY | | | | + + + + + | [facility] | [address] | [place] | | | [facility] | | [address], [facility] | | | - LABORATORY | [...] Negative A | 0.0 - 1.2 | [facility] | | | ratio | Lupus Inhibitor [...] Performed: | | | | | | [facility] | | | | | | [facility], [address] | | | | | | [address] [place] [address] | | | | | | CLIA: [id number] | | | | + + + + + + + + | Specimen | + + | | + + + + + + + | Performing | Address | City/State/Zipcode | Phone Number | | Organization | | | | + + + + + | [facility] | [address] | [place] | [phone] | | [facility] | | [address] | | | - LABORATORY | | | | + + + + + | [facility] | [address] | [place] | | | [facility] | | [address] | | | - LABORATORY | [...] | | LABORATORY | | | | [facility] | | | | | | Center, [address], | | | | | | [place] [address] | | | | | | CLIA: [id number] | | | | + + + + + + + + | Specimen | + + | | + + + + + + + | Performing | Address | City/State/Zipcode | Phone Number | | Organization | | | | + + + + + | [facility] | [address] | [place] | [phone] | | [facility] | | [address] | | | - LABORATORY | | | | + + + + + | [facility] | [address] | [place] | | | [facility] | | [address] | | | - LABORATORY | [...] | | | n III | Performed: [facility] | | [facility] | | | [place] | [facility] | | MEDICAL | | | | [place], [address] , | | CENTER - | | | | [place] [address] | | LABORATORY | | | | CLIA: [id number] | | | | + + + + + + + + | Specimen | + + | | + + + + + + + | Performing | Address | City/State/Zipcode | Phone Number | | Organization | | | | + + + + + | [facility] | [address] | [place], [place] | [phone] | | [facility] | | [address] | | | - LABORATORY | | | | + + + + + | [facility] | [address] | [place], [place] | | | [facility] | | [address] [place] [address] | | | - LABORATORY | | [...] [facility] | | | Time, | Performed: [facility] | | [facility] | | | Control | [facility] | | MEDICAL | | | | Center, [address] , | | CENTER - | | | | [place] [address] | | LABORATORY | | | | CLIA: [id number] | | | | + + + + + + + + | Specimen | + + | | + + + + + + + | Performing | Address | City/State/Zipcode | Phone Number | | Organization | | | | + + + + + | [facility] | [address] | [place], [place] | [phone] | | [facility] | | [address] | | | - LABORATORY | | | | + + + + + | [facility] | [address] | [place], [place] | | | [facility] | | [address] [place] [address] | | | - LABORATORY | | [...] [place], | | | | | | [place] [address] | | | | | | CLIA: [id number] | | | | + + + + + + + + | Specimen | + + | | + + + + + + + | Performing | Address | City/State/Zipcode | Phone Number | | Organization | | | | + + + + + | [facility] | [address] | [place] | [phone] | | [facility] | | [address] | | | - LABORATORY | | | | + + + + + | [facility] | [address] | [place], [place] | | | [facility] | | [address] | | | - LABORATORY | [...] N ACTIVITY | Performed: Toño | | [facility] | | | | [facility] | | MEDICAL | | | | Center, [address], | | CENTER - | | | | [place] [address] | | LABORATORY | | | | [place]: [id number] | | | | + + + + + + + + | Specimen | + + | | + + + + + + + | Performing | Address | City/State/Zipcode | Phone Number | | Organization | | | | + + + + + | [facility] | [address] | [place] | [phone] | | [facility] | | [address] | | | - LABORATORY | | | | + + + + + | [facility] | [address] | [place], [place] | | | [facility] | | [address] | | | - LABORATORY | [...] INR: USUAL | 0.9 - 1.1 | [facility] | | | | ORAL ANTICOAGULATION | | [facility] | | | | RANGE | | [...] [address] | [place] | [phone] | | [facility] | | [address] | | | - LABORATORY | | | | + + + + + | [facility] | [address] | [place], [place] | | | [facility] | | [address], [facility] | | | - LABORATORY | [...] + | [facility] | [address] | [place], [place] | [phone] | | [facility] | | [address] | | | - LABORATORY | | | | + + + + + | [facility] | [address] | [place], [place] | | | [facility] | | [address] | | | - LABORATORY | | [...] + | [facility] | [address] | [place] | [phone] | | [facility] | | [address] | | | - LABORATORY | | | | + + + + + | [facility] | [address] | [place] | | | [facility] | | [address], [facility] | | | - LABORATORY | [...] + | [facility] | [address] | [place], [place] | [phone] | | [facility] | | [address] | | | - LABORATORY | | | | + + + + + | [facility] | [address] | [place], [place] | | | [facility] | | [address] | | | - LABORATORY | [...] [address] | [place] | [phone] | | [facility] | | [address] | | | - LABORATORY | | | | + + + + + | [facility] | [address] | [place] | | | [facility] | | [address] | | | - LABORATORY | [...] | | Cells | | M/uL | [facility] | | | | | | MEDICAL [...] | | | | | | [facility] | | | | | | MEDICAL [...] [address] | [place] | [phone] | | [facility] | | [address] | | | - LABORATORY | | | | + + + + + | [facility] | [address] | [place] | | | [facility] | | [address] | | | - LABORATORY | | | | + + + + + documented in this encounter Visit Diagnoses Not on filedocumented in this encounter"
--- OUTSIDE RECORDS SUMMARY | ~2019-12-08 | XMS | Encounter Summary ---
Demographics + + + | Address | [address] | | | [place] [address] | + + + | Home Phone | | + + + | Preferred Language | Unknown | + + + | Marital Status | | + + + | Zoroastrian Affiliation | Unknown | + + + | Race | White | + + + | Ethnic Group | Not or | + + + Author + + + | Author | [facility] | | | and [place] | + + + | Organization | [facility] | | | and [...] Team Providers + +------+ + | Care Geospatial Information Technologist Name | Role | Phone | [...] Provider Unknown | | | | | [place], [place] | [phone] | | | | | [address] | | | | | | [phone] | | | +--------+ + + + [...] D | | | | | | [place] [address] | | | | | | [phone] | | | | | | | [...]
--- OUTSIDE RECORDS SUMMARY | ~2019-12-08 | XMS | Encounter Summary ---
Demographics + + + | Address | [address] | | | [place] [address] | + + + | Home Phone | | + + + | Preferred Language | Unknown | + + + | Marital Status | | + + + | Sabianist Affiliation | Unknown | + + + | Race | White | + + + | Ethnic Group | Not or | + + + Author + + + | Author | [facility] | | | and [place] | + + + | Organization | [facility] | [...] Team Providers + +------+ + | Care Subway Conductor Name | Role | Phone | + [...] Provider Unknown | | | | | [place], [place] | [phone] | | | | | [address] | | | | | | [phone] | | | +--------+ + + + [...] D | | | | | | [place] [address] | | | | | | [phone] | | | | | | | [...]
--- OUTSIDE RECORDS SUMMARY | ~2019-12-08 | XMS | Encounter Summary ---
Demographics + + + | Address | [address] | | | [place] [address] | + + + | Home Phone [...] Team Providers + +------+ + | Care Computer Specialist Name | Role | Phone | + +------+ + PCP | Unavailable | + +------+ + Encounter Details +--------+ + + + + | Date | Type | Department | Care Team | Description | +--------+ + + + + | 11/08/ | Emergency | [facility] | Patrick Huston, | Patient left before | | 2014 | | MEDICAL CENTER | MD Toi [place] | treatment completed | | | | EMERGENCY CENTER | [place] | | | | | [address] | [address] | | | | | [place], [place] | [phone] | | | | | [address] | | | | | | [phone] | | | +--------+ + + + [...] 11/08/132155 Date of Service: 11/08/132155 Status: Signed Apartment Maintenance Supervisor: Florencia Lancaster RN (Registered Nurse) No belongings in pt room, no people noted in pt room. Florencia Lancaster RN 11/08/132155 onver elaina Transaction, Provider Unknown - 11/08/2013 9:52 PM PDT ED Notes by Marysol Kramer RN at 11/08/132151 Author: Marysol Kramer RN Service: (none) Author Type: Registered Nurse Filed: 11/08/132151 Date of Service: 11/08/132151 Status: Signed Apartment Maintenance Supervisor: Marysol Kramer RN (Registered Nurse) Patient left the room at this time. Marysol Kramer RN 11/08/132151 onver elaina Transaction, Provider Unknown - 11/08/2013 9:49 PM PDT ED Notes by Marysol Kramer RN at 11/08/132148 Author: Marysol Kramer RN Service: (none) Author Type: Registered Nurse Filed: 11/08/132151 Date of Service: 11/08/132148 Status: Signed Apartment Maintenance Supervisor: Marysol Kramer RN (Registered Nurse) Pt caregiver [...] 11/08/132142 Date of Service: 11/08/132141 Status: Signed Apartment Maintenance Supervisor: Florencia Lancaster RN (Registered Nurse) Pt caregiver [...] 0237 Date of Service: 11/08/132121 Status: Signed Apartment Maintenance Supervisor: Patrick Huston MD (Physician) [facility] Department of Emergency Medicine 9:22 PM History [...] Procedure: TRACHEOSTOMY; Surgeon: Fabián Novoa MD; Location: [facility] MAIN OR; Service: ENT ; [...] reviewed (Using the electronic record system of [facility], Hermila tirado reviewed the records [...] 11/08/132127 Date of Service: 11/08/132120 Status: Signed Apartment Maintenance Supervisor: Florencia Lancaster RN (Registered Nurse) Pt c/o [...] | | | | Visit | | [facility] [address] | | | | | | [place] [address] | | | | | | [phone] | | | | | | | | +--------+ + + + + documented as of this encounter Visit Diagnoses + + | Diagnosis | + + | Patient left before treatment completed Personal history of noncompliance with | | medical treatment, presenting hazards to health | + + documented in this encounter
--- OUTSIDE RECORDS SUMMARY | ~2019-12-08 | XMS | Encounter Summary ---
Demographics + + + | Address | [address] | | | [place] [address] | + + + | Home Phone [...] Providers + +------+ + | Care Supervisor Lending Activities Name | Role | Phone | + +------+ + | Mynor Kam MD | PCP | | + +------+ + Encounter Details +--------+ + + + + | Date | Type | Department | Care Team | Description | +--------+ + + + + | 06/15/ | Orders Only | [facility] | Matt, | | | 2013 | | PULMONOLOGY [address] | [address] [address], | | | | | [address] | [address] | | | | | [place], [place] | [address] [place], | | | | | [address] | [place] [address] | | | | | [phone] | [phone] | | | | | | | [...] | | | | | [place] [address] | | | | | | [phone] | | | | | | | | +--------+ + + + + documented as of this encounter Visit Diagnoses Not on filedocumented in this encounter"
--- OUTSIDE RECORDS SUMMARY | ~2019-12-08 | XMS | Encounter Summary ---
Demographics + + + | Address | [address] | | | [place] [address] | + + + | Home Phone [...] Team Providers + +------+ + | Care [employer] Name | Role | Phone | + [...] Provider Unknown | | | | | [place], [place] | [phone] | | | | | [address] | | | | | | [phone] | | | +--------+ + + + [...] D | | | | | | [place] [address] | | | | | | [phone] | | | | | | | [...]
--- OUTSIDE RECORDS SUMMARY | ~2019-12-08 | XMS | Encounter Summary ---
Demographics + + + | Address | [address] | | | [place] [address] | + + + | Home Phone [...] Team Providers + +------+ + | Care [employer] Arc Welder Name | Role | Phone | [...] | | | | [place] | [phone] | | | | | [phone] | | | | | | [phone] | | | +--------+ + + + [...] | | | | Visit | | [address] | | | | | | [place] [address] | | | | | | [phone] | | | | | | | | +--------+ + + + + documented as of this encounter Visit Diagnoses Not on filedocumented in this encounter"
[2019-12-08] MEDS ORDERED: METOPROLOL SUC100 MG PO (10:44)
--- NOTE | 2019-12-08 15:20 | EKG ---
[facility] [address] [facility] [place] [address] Signed Sinus tachycardia Nonspecific T wave abnormality Abnormal ECG When compared with ECG of 30-NOV-2019 13:43, Nonspecific T wave abnormality now evident in Lateral leads Confirmed by DANIEL HILL MD ([id number]) on 12/08/2019 3:20:42 PM Electronically Signed By: DANIEL HILL MD 12/08/19 1520 PATIENT NAME: FEDERICO SALMON Electrocardiogram DATE OF : 63 PHYSICIAN: DANIEL HILL MD REPORT #: [id number] REPORT IS CONFIDENTIAL AND NOT TO BE RELEASED WITHOUT AUTHORIZATION
== END 2019-12-08 15:00 | disposition home or self-care (01) ==
LOC: ED 08:30
DX: I10 Essential (primary) hypertension (principal); R00.0 Tachycardia, unspecified; G43.909 Migraine, unspecified, not intractable, without status migrainosus; E11.9 Type 2 diabetes mellitus without complications; J45.909 Unspecified asthma, uncomplicated; K72.90 Hepatic failure, unspecified without coma; Z88.5 Allergy status to narcotic agent; Z79.899 Other long term (current) drug therapy; Z79.4 Long term (current) use of insulin
CPT/HCPCS: 70450; 71045; 80053; 81001; 82140; 83735; 84484; 85025; 85610; 93005; 93010; 96361; 96374; 96375; 96376; 99285-25; J0780; J1200; J1815; J2270; J2405; J7040; Q0177

== ENCOUNTER 2019-12-28 12:56 | Inpatient (IN) | payer MEDICARE, OTHER ==
[~2019-12-28] VITALS: Ht 167.6 cm; Wt 147.4 kg
--- OUTSIDE RECORDS SUMMARY | ~2019-12-28 | XMS | Encounter Summary ---
Demographics + + + | Address | [address] | | | [place] [address] | + + + | Home Phone | | + + + | Preferred Language | Unknown | + + + | Marital Status | | + + + | Episcopal Affiliation | Unknown | + + + | Race | White | + + + | Ethnic Group | Not or | + + + Author + + + | Author | [facility] | | | and [place] | + + + | Organization | [facility] | | | and [place] | + + + | Address | Unknown | + + + | Phone | Unavailable | + + + Support + + +---------+ + | Name | Relationship | Address | Phone | + + +---------+ + | Amado Salmon | ECON | Unknown | | + + +---------+ + Care Team Providers + +------+ + | Care Machine Stoppage Frequency Checker Name | Role | Phone | + +------+ + PCP | Unavailable | + +------+ + Encounter Details +--------+ + + + + | Date | Type | Department | Care Team | Description | +--------+ + + + + | 05/05/ | Hospital | [facility] | Estefania Brannon DO | Acute respiratory | | 2013 - | Encounter | [facility] | [address] | failure (HCC); | | | | INTENSIVE CARE UNIT | [place] [address] | Abnormal LFTs (liver | | 05/14/ | | [address] | [phone] | function tests); | | 2013 | | [place], [place] | | Acute respiratory | | | | [address] | | distress syndrome | | | | [phone] | | (ARDS) ([facility]); | | | | | | Influenza A; Morbid | | | | | | obesity with BMI of | | | | | | 45.0-49.9, adult | | | | | | ([facility]); Poorly | | | | | | controlled diabetes | | | | | | mellitus ([facility]); | | | | | | Secondary Bacterial | | | | | | Pneumonia | +--------+ + + + + Social [...] + + documented as of this encounter Discharge Summaries Al Houston MD - 05/14/2013 8:33 AM PSTFormatting of this note might be different fro m the original. Discharge Summaries by Al Houston MD at 05/14/13832 Author: Al Houston MD Service: (none) Author Type: Control Cabinet Assembler Filed: 05/14/1343 Date of Service: 05/14/13832 Status: Signed Site Foreman: Al Houston MD (Physician) [facility] Service: Control Cabinet Assembler Discharge Summary Gilma Salmon 47 y.o. Date of Admission: 05/05/2013 Date of Discharge: Treatment Team: Consulting Physician: Shalonda Novoa MD Admitting Provider: Estefania Brannon DO ADMITTING DIAGNOSES: Poorly controlled diabetes mellitus Morbid obesity with BMI of 45.0-49.9, adult Influenza A (H1N1) Acute respiratory failure with hypoxia Abnormal LFTs DISCHARGE DIAGNOSES: Acute respiratory failure with hypoxia Poorly controlled diabetes mellitus Morbid obesity with BMI of 45.0-49.9, adult Influenza A Abnormal LFTs (liver function tests) Acute respiratory distress syndrome (ARDS) possible Secondary bacterial pneumonia BRIEF HISTORY OF PRESENTATION: Ms. Salmon is a 47-year-old female patient with morbid obesity who was transferred to our institution on May 05, 2013 with the diagnosis of ARDS with influenza A, on Tamiflu. She also has a history of poorly controlled diabetes type 2, asthma and bronchitis with prior D VT. Mechanical ventilation initiated on May 01, 2013 at [facility]. HOSPITAL COURSE: May 06, 2013: PICC andright radial A-line placed. May 10, 2013: Dr. Novoa ENT consulted for tracheostomy. Droplet isolation removed. No feve rs. May 11, 2013: Tracheostomy placed #8 Shiley NEURO: Daily CAM assessment and lightening of sedation. Nonfocal neurologic exam CARDIOVASCULAR: No active issues PULMONARY: ARDS from Influenza A infection: Improving weaning of higher support and FiO2. Continue wit h protective mode of ventilation. Tracheostomy: #[address] by [address] novoa without incident minimal amount of secretions that are blood tinged at the site. Maintain PaO2 >55, Sa02>88%, pH >7.20 GI: Ileus, non obstructive. Resolved. Transaminitis: trending down, check hepatitis panel to blood in lab RENAL: No active issues. INFECTIOUS DISEASE: Influenza A. She has completed 5 days of Tamiflu. She has no evidence of suprainfection. Bl ood and sputum cultures are negative. She has received 4 days of antibiotics (broad spectrum ). Will discontinue Levofloxacin for now. Will have low threshold of resuming abx if signs a nd symptoms of infection arise. Droplet isolation has been discontinued HEME: No issues ENDOCRINE: Uncontrolled DM. On Endotool MUSCULOSKELETAL: No issues, consult PT for early mobility PROPHYLAXIS: Stress ulcer prophylaxis- Famotidine DVT prophylaxis- Lovenox VAP: chlorhexadine oral care and HOB > 30 degrees Past Medical History: Past Medical History Diagnosis Date Poorly controlled diabetes mellitus Morbid obesity with BMI of 45.0-49.9, adult Bronchitis Influenza A (H1N1) 05/02/2013 Acute respiratory failure with hypoxia 05/04/2013 due to influenza PNA DVT (deep venous thrombosis) in thigh; no longer on coumadin Asthma Shingles Past Surgical History: Past Surgical History Procedure Date Appendectomy Total abdominal hysterectomy Tonsillectomy and adenoidectomy Knee arthroscopy left knee Tracheal surgery 05/11/2013 Procedure: TRACHEOSTOMY; Surgeon: Shalonda Novoa MD; Location: [facility] MAIN OR; Service: ENT ; Laterality: N/A; move to OR table, need harmonic scalpel with focus HP, patient [address] Medication List As of 05/14/2013 8:33 AM Condition on Discharge: Stable, to [facility] [place] Code Status: Full Code Primary Care Physician: MARY HOUSTON MD 05/14/2013 8:33 AM documented in this e ncounter Progress Notes Conversion Transaction, Provider Unknown - 05/14/2013 1:22 PM PSTFormatting of this note m ight be different from the original. Progress Notes by Bryanna Keenan RN at 05/14/13 1322 Author: Bryanna Keenan RN Service: (none) Author Type: Registered Nurse Filed: 05/14/13 1326 Date of Service: 05/14/13 1322 Status: Signed Site Foreman: Bryanna Keenan RN (Registered Nurse) Transport here to take pt to [facility] at bedside gave pt 10mg hydralazine and 1mg ati van. Dr Houston here to see pt off report given to Amado rn pt discarged to care facility onver elaina Transaction, Provider Unknown - 05/14/2013 10:43 AM PST Progress Notes by Bryanna Keenan RN at 05/14/13 1043 Author: Bryanna Keenan RN Service: (none) Author Type: Registered Nurse Filed: 05/14/13 1044 Date of Service: 05/14/13 1043 Status: Signed Site Foreman: Bryanna Keenan RN (Registered Nurse) Report given to Maggy at [facility] in [facility] onver elaina Transaction, Provider Unknown - 05/14/2013 8:33 AM PST Case Management by MARTHA Kunz at 05/14/13 0833 Author: MARTHA Kunz Service: (none) Author Type: Laborer Brooder Farm Filed: 05/14/13 0834 Date of Service: 05/14/13832 Status: Signed Site Foreman: MARTHA Kunz (Laborer Brooder Farm) Received t/c from [facility] with [employer]. [employer] Auth # is [id number] for [facility]. Called [facility] to verify their rock picker time (12:30) and also called pt's bharath white to verify that pt is being transferred today. onver elaina Transaction, Provider Unknown - 05/14/2013 8:31 AM PST Case Management by MARTHA Kunz at 05/14/13830 Author: MARTHA Kunz Service: (none) Author Type: Laborer Brooder Farm Filed: 05/14/13831 Date of Service: 05/14/13830 Status: Signed Site Foreman: MARTHA Kunz (Laborer Brooder Farm) Disposition: [facility] Transportation:[facility] [phone] All orders, signed AVS, and prescriptions have been faxed All DC paperwork completed Patient and family in agreement with transfer Medicare important message signed and copy in chart SHREE NIETO Al Gonzalez MD - 05/14/2013 8:28 AM PSTFormatting of this note might be different from the o riginal. Progress Notes by Al Houston MD at 05/14/13827 Author: Al Houston MD Service: (none) Author Type: Control Cabinet Assembler Filed: 05/14/13840 Date of Service: 05/14/13827 Status: Addendum Site Foreman: Al Houston MD (Physician) Related Notes: Original Note by Al Houston MD (Physician) filed at 05/14/13832 [facility] Service: Control Cabinet Assembler Progress Note Gilma Salmon 47 y.o. Hospital Day: LOS: 9 days Post-Op Day: * No surgery found * Treatment Team: Consulting Physician: Shalonda Novoa MD Admitting Provider: DO NATALEE East Patient Summary: Ms. Salmon is a 47-year-old female patient with morbid obesity who w as transferred to our institution on May 05, 2013 with the diagnosis of ARDS with influe nza A, on Tamiflu. She also has a history of poorly controlled diabetes type 2, asthma and b ronchitis with prior DVT. Mechanical ventilation initiated on May 01, 2013 at [facility]. ICU TIMELINE:The patient is admitted on May 05, 2013. May 06, 2013: PICC andright radial A-line placed. May 10, 2013: Dr. Novoa ENT consulted for tracheostomy. Droplet isolation removed. No f peggy. May 11, 2013: Tracheostomy placed #8 Shiley Events Overnight: nausea resolved, remains on the ventilator, peep down to 13 PAST MEDICAL HISTORY: Past Medical History Diagnosis Date Poorly controlled diabetes mellitus Morbid obesity with BMI of 45.0-49.9, adult Bronchitis Influenza A (H1N1) 05/02/2013 Acute respiratory failure with hypoxia 05/04/2013 due to influenza PNA DVT (deep venous thrombosis) in thigh; no longer on coumadin Asthma Shingles PAST SURGICAL HISTORY: Past Surgical History Procedure Date Appendectomy Total abdominal hysterectomy Tonsillectomy and adenoidectomy Knee arthroscopy left knee Tracheal surgery 05/11/2013 Procedure: TRACHEOSTOMY; Surgeon: Shalonda Novoa MD; Location: [facility] MAIN OR; Service: ENT ; Laterality: N/A; move to OR table, need harmonic scalpel with focus HP, patient [address] MEDICATION ALLERGIES: Allergies Allergen Reactions Augmentin Other (See Comments) Able to take meropenem as of 04/2013 Metal (Other-Chemical) Rash Penicillins Other (See Comments) Able to take meropenem as of 04/2013 MEDICATIONS PRIOR TO ADMISSION: Prescriptions prior to admission Medication Sig Dispense Refill ALBUTEROL IN Inhale 1 puff into the lungs every 4 (four) hours as needed. azithromycin (ZITHROMAX) 250 MG tablet Take 250 mg by mouth daily. TAKE TWO TABLETS BY MOUTH NOW then ONE TABLET DAILY DAY 2-5 clindamycin (CLEOCIN) 150 MG capsule Take 300 mg by mouth 3 (three) times daily. fluconazole (DIFLUCAN) 100 MG tablet Take 150 mg by mouth daily. HYDROcodone-acetaminophen (NORCO) 5-325 MG per tablet Take 1 tablet by mouth every 4 (f our) hours as needed. HYDROcodone-acetaminophen (NORCO) 5-325 MG per tablet Take 2 tablets by mouth every 4 ( four) hours as needed. insulin glargine (LANTUS) 100 UNIT/ML injection Inject 20 Units into the skin 2 (two) t imes daily. Indications: Type 2 Diabetes ondansetron (ZOFRAN ODT) 4 MG disintegrating tablet Take 4 mg by mouth every 8 (eight) hours as needed. Scheduled Medications albuterol 6 puff Inhalation Q4H chlorhexidine gluconate 15 mL Mouth/Throat Q12H enoxaparin 40 mg Subcutaneous Q24H famotidine 20 mg Oral BID Or famotidine 20 mg Intravenous BID fentaNYL 1 patch Transdermal Q72H insulin aspart 0-10 Units Subcutaneous Q6H AV ipratropium 6 puff Inhalation Q4H LORazepam 1 mg Intravenous Once nystatin Topical BID sodium chloride 0.9 % 10 mL Intravenous Q12H AV Continuous Infusions sodium chloride 30 mL/hr at 05/14/13 0730 [DISCONTINUED] dextrose 20 mL/hr at 05/11/13 0824 [DISCONTINUED] fentaNYL in NS 5 mcg/mL 150 mcg/hr (05/13/131999) [DISCONTINUED] propofol 20 mcg/kg/min (05/12/13 08) PHYSICAL EXAM Vital Signs: BP 161/77 | Pulse 85 | Temp 98.6 F (37 C) (Oral) | Resp 23 | Ht 1.676 m (5' 5.98") | Wt 139.6 kg (307 lb 12.2 oz) | BMI 49.70 kg/m2 | SpO2 95% | ? No Intake/Output Summary (Last 24 hours) at 05/14/13829 Last data filed at 05/14/13729 Gross per 24 hour Intake 1166 ml Output 2050 ml Net -884 ml Vent Mode: [-] PRVC/AC FiO2 : [50 %-55 %] 50 % EXAM GEN: awake,no apparent distress NEURO: PERRLA, EOMI, no facial asymmetry, converses well through the trach HEENT: Tracheostomy in place sclerae clear, nonicteric, oral mmm, pink, no exudates NECK: short, supple, tracheostomy is midline sutured in place, no thyroidmegaly HEART: RRR, no murmur, rub or gallop LUNGS: equal in expansion, coarse breath sounds appreciated in the right upper robb no si gnificant secretions through the in line suction catheter, no rhonchi/wheezing/crackles ABD: obese, soft, nondistended, nontender to palpation, no masses, no hepatosplenomegaly EXTR: trace pedal edema but with sacral edema, clubbing or cyanosis SKIN: warm, dry, no rash or mottling; no e/o skin breakdown over the occiput, scapulae, elb ows, sacrum or heels Lab DATA Lab 05/13/13 0422 05/12/13 0500 05/11/13 0419 WBC 7.3 7.1 6.6 HGB 10.4* 10.4* 10.6* HCT 30.3* 31.8* 31.0* PLT 544* 469* 484* Lab 05/13/13 1612 05/13/13 0422 05/12/13 1309 05/12/13 0500 05/11/13 0419 NA -- 138 137 136 -- K 4.2 3.5 4.0 -- -- CL -- 102 100 102 -- CO2 -- 29 31 29 -- BUN -- 16 20 18 -- CREATININE -- 0.55 0.67 0.45* -- CALCIUM -- -- -- -- -- PROT -- 7.5 -- 7.1 7.1 BILITOT -- 0.5 -- 0.5 0.5 ALKPHOS -- -- -- -- -- ALT -- 81* -- 70* 78* AST -- 69* -- 62* 79* GLUCOSE -- -- -- -- -- IMAGING Xr Chest 1 View 05/12/13 1. Persistent bilateral lower lobe dense alveolar infiltrates, unchanged, indicating pulmon shelly edema, and/or pleural effusions, and/or ARDS. 2. Persistent cardiomegaly. 3. Resolution of recent pneumomediastinum. 4. Satisfactory position of life-support catheters. Echo Cardiac Adult Complete 05/10/2013 1. Sinus rhythm. 2. A 2-dimensional transthoracic echocardiogram with m-mode, spectral and color flow Dopple r was perfomed. 3. This was a technically adequate study. 4. Overall left ventricular systolic function is normal with, an EF between 60 - 65 %. 5. The left ventricle cavity size is normal. 6. Left ventricular wall thickness is normal. 7. The right ventricle is normal in size and function. 8. The left atrium is normal in size. 9. The right atrium is normal in size. 10. The aortic valve is trileaflet, and appears anatomically normal. No aortic stenosis or regurgitation. 11. The mitral valve is normal. 12. Mild mitral regurgitation is present. 13. The tricuspid valve appears structurally normal. 14. Mild tricuspid regurgitation present. 15. Right ventricular systolic pressure (pulmonary artery systolic pressure) is normal at < 35 mmHg. 16. Pulmonic valve appears structurally normal. 17. There is no pericardial effusion. 18. The IVC is normal size (1.5-2.5cm) and collapses <50% with sniff, consistent with centr al venous pressures of 10-15mmHg. PROBLEM LIST Principal Problem: *Acute respiratory failure with hypoxia Active Problems: Poorly controlled diabetes mellitus Morbid obesity with BMI of 45.0-49.9, adult Influenza A Abnormal LFTs (liver function tests) Acute respiratory distress syndrome (ARDS) possible Secondary bacterial pneumonia ASSESSMENT & PLAN NEURO: Daily CAM assessment and lightening of sedation. Nonfocal neurologic exam CARDIOVASCULAR: No active issues PULMONARY: ARDS from Influenza A infection: Improving weaning of higher support and FiO2. Continue with protective mode of ventilation. Tracheostomy: #8 Shiley [address] placed by Dr[address] novoa without incident minimal amount of secreti ons that are blood tinged at the site. Maintain PaO2 >55, Sa02>88%, pH >7.20 GI: Ileus, non obstructive. Resolved. Transaminitis: trending down, check hepatitis panel to blood in lab RENAL: No active issues. INFECTIOUS DISEASE: Influenza A. She has completed 5 days of Tamiflu. She has no evidence of suprainfection. Blood and sputum cultures are negative. She has received 4 days of antibiotics (broad spect rum). Will discontinue Levofloxacin for now. Will have low threshold of resuming abx if sign s and symptoms of infection arise. Droplet isolation has been discontinued HEME: No issues ENDOCRINE: Uncontrolled DM. On Endotool MUSCULOSKELETAL: No issues, consult PT for early mobility PROPHYLAXIS: Stress ulcer prophylaxis- Famotidine DVT prophylaxis- Lovenox VAP: chlorhexadine oral care and HOB > 30 degrees Disposition: ICU care as above. Appreciate mary help in accepting the pt, dr brown Code Status: Full Code *Please bill 35 minutes of critical care time spent evaluating the patient, reviewing the d trish and formulating a plan exclusive of all other procedures. AL HOUSTON MD 05/14/2013 8:30 AM onversion Transacti on, Provider Unknown - 05/13/2013 4:03 PM PSTFormatting of this note might be different fro m the original. Progress Notes by Erlinda David MS CCC-SUPERINTENDENT ELECTRIC POWER at 05/13/13 5036 Author: Erlinda David MS CCC-SUPERINTENDENT ELECTRIC POWER Service: (none) Author Type: Speech and Internet Sales Manager ologist Filed: 05/13/13 1604 Date of Service: 05/13/13 1603 Status: Signed Site Foreman: Erlinda David MS CCC-SUPERINTENDENT ELECTRIC POWER (Speech and Language Pathologist) 05/13/13 1500 General Session type Evaluation Family/Caregiver Present Yes Expression Primary Mode of Expression Nonverbal - written;Nonverbal - gestures (mouthing). Currently has trach. Passy-Shauna Valve Passy-Shauna Valve No Written Expression Written Expression Comment Pt able to write to compensate for inability to vocalize at this time d/t trach/vent.Pt also mouthing words and using communication board that was given and gestures. Pt and spouse had no further questions re: communication and both stated that the pt's basic wants/needs are being met at this time. Rec SUPERINTENDENT ELECTRIC POWER f/u at place of d/c. onver elaina Transaction, Provider Unknown - 05/13/2013 3:43 PM PST Case Management by MARTHA Kunz at 05/13/13 1543 Author: MARTHA Kunz Service: (none) Author Type: Laborer Brooder Farm Filed: 05/13/13 7374 Date of Service: 05/13/13 154 Status: Signed Site Foreman: MARTHA Kunz (Laborer Brooder Farm) Received t/c from [facility] with [facility] ([phone]). He is requesting a return call if f or some reason pt is not able to transfer to [place] tomorrow. His crew plans to wrrive here between 11:30-12:00 if not called. Informed Unit BINDERY WORKER and Lead RN. Al Gonzalez MD - 05/13/2013 3:43 PM PSTFormatting of this note might be different from the o riginal. Progress Notes by Al Houston MD at 05/13/13 3493 Author: Al Houston MD Service: (none) Author Type: Control Cabinet Assembler Filed: 05/13/13 1555 Date of Service: 05/13/13 1543 Status: Signed Site Foreman: Al Houston MD (Physician) [facility] Service: Control Cabinet Assembler Progress Note Gilma Salmon 47 y.o. Hospital Day: LOS: 8 days Post-Op Day: * No surgery found * Treatment Team: Consulting Physician: Shalonda Novoa MD Admitting Provider: Estefania Brannon DO SUBJECTIVE Patient Summary: Ms. Salmon is a 47-year-old female patient with morbid obesity who w as transferred to our institution on May 05, 2013 with the diagnosis of ARDS with influe nza A, on Tamiflu. She also has a history of poorly controlled diabetes type 2, asthma and b ronchitis with prior DVT. Mechanical ventilation initiated on May 01, 2013 at [facility]. ICU TIMELINE:The patient is admitted on May 05, 2013. May 06, 2013: PICC andright radial A-line placed. May 10, 2013: Dr. Novoa ENT consulted for tracheostomy. Droplet isolation removed. No f peggy. May 11, 2013: Tracheostomy placed #8 Shiley Events Overnight: nausea resolved, remains on the ventilator PAST MEDICAL HISTORY: Past Medical History Diagnosis Date Poorly controlled diabetes mellitus Morbid obesity with BMI of 45.0-49.9, adult Bronchitis Influenza A (H1N1) 05/02/2013 Acute respiratory failure with hypoxia 05/04/2013 due to influenza PNA DVT (deep venous thrombosis) in thigh; no longer on coumadin Asthma Shingles PAST SURGICAL HISTORY: Past Surgical History Procedure Date Appendectomy Total abdominal hysterectomy Tonsillectomy and adenoidectomy Knee arthroscopy left knee Tracheal surgery 05/11/2013 Procedure: TRACHEOSTOMY; Surgeon: Shalonda Novoa MD; Location: [facility] MAIN OR; Service: ENT ; Laterality: N/A; move to OR table, need harmonic scalpel with focus HP, patient 320 [address] MEDICATION ALLERGIES: Allergies Allergen Reactions Augmentin Other (See Comments) Able to take meropenem as of 04/2013 Metal (Other-Chemical) Rash Penicillins Other (See Comments) Able to take meropenem as of 04/2013 MEDICATIONS PRIOR TO ADMISSION: Prescriptions prior to admission Medication Sig Dispense Refill ALBUTEROL IN Inhale 1 puff into the lungs every 4 (four) hours as needed. azithromycin (ZITHROMAX) 250 MG tablet Take 250 mg by mouth daily. TAKE TWO TABLETS BY MOUTH NOW then ONE TABLET DAILY DAY 2-5 clindamycin (CLEOCIN) 150 MG capsule Take 300 mg by mouth 3 (three) times daily. fluconazole (DIFLUCAN) 100 MG tablet Take 150 mg by mouth daily. HYDROcodone-acetaminophen (NORCO) 5-325 MG per tablet Take 1 tablet by mouth every 4 (f our) hours as needed. HYDROcodone-acetaminophen (NORCO) 5-325 MG per tablet Take 2 tablets by mouth every 4 ( four) hours as needed. insulin glargine (LANTUS) 100 UNIT/ML injection Inject 20 Units into the skin 2 (two) t imes daily. Indications: Type 2 Diabetes ondansetron (ZOFRAN ODT) 4 MG disintegrating tablet Take 4 mg by mouth every 8 (eight) hours as needed. Scheduled Medications albuterol 6 puff Inhalation Q4H chlorhexidine gluconate 15 mL Mouth/Throat Q12H enoxaparin 40 mg Subcutaneous Q24H famotidine 20 mg Oral BID Or famotidine 20 mg Intravenous BID fentaNYL 1 patch Transdermal Q72H insulin aspart 0-10 Units Subcutaneous Q6H AV ipratropium 6 puff Inhalation Q4H nystatin Topical BID sodium chloride 0.9 % 10 mL Intravenous Q12H AV [DISCONTINUED] furosemide 20 mg Intravenous Once [DISCONTINUED] furosemide 40 mg Intravenous BID Continuous Infusions dextrose 20 mL/hr at 05/11/13 0824 fentaNYL in NS 5 mcg/mL 150 mcg/hr (05/13/13 1240) sodium chloride 30 mL/hr at 05/12/13 0800 [DISCONTINUED] propofol 20 mcg/kg/min (05/12/13 0800) PHYSICAL EXAM Vital Signs: BP 142/78 | Pulse 81 | Temp 98.4 F (36.9 C) (Axillary) | Resp 22 | Ht 1.676 m (5' 5.98" ) | Wt 139.6 kg (307 lb 12.2 oz) | BMI 49.70 kg/m2 | SpO2 94% | ? No Intake/Output Summary (Last 24 hours) at 05/13/13 1543 Last data filed at 05/13/13 1200 Gross per 24 hour Intake 1741 ml Output 2045 ml Net -304 ml Vent Mode: [-] PRVC/AC FiO2 : [55 %-60 %] 55 % EXAM GEN: awake,no apparent distress NEURO: PERRLA, EOMI, no facial asymmetry, comverses well through the trach HEENT: Tracheostomy in place sclerae clear, nonicteric, oral mmm, pink, no exudates NECK: short, supple, tracheostomy is midline sutured in place minimal amounts of bloody sec retions, no thyroidmegaly HEART: RRR, no murmur, rub or gallop LUNGS: equal in expansion, coarse breath sounds appreciated in the right upper robb no si gnificant secretions through the in line suction catheter, no rhonchi/wheezing/crackles ABD: obese, soft, nondistended, nontender to palpation, no masses, no hepatosplenomegaly EXTR: trace pedal edema but with sacral edema, clubbing or cyanosis SKIN: warm, dry, no rash or mottling; no e/o skin breakdown over the occiput, scapulae, elb ows, sacrum or heels Lab DATA Lab 05/13/13 0422 05/12/13 0500 05/11/13 0419 WBC 7.3 7.1 6.6 HGB 10.4* 10.4* 10.6* HCT 30.3* 31.8* 31.0* PLT 544* 469* 484* Lab 05/13/13 0422 05/12/13 1309 05/12/13 0500 05/11/13 0419 NA 138 137 136 -- K 3.5 4.0 3.7 -- CL 102 100 102 -- CO2 29 31 29 -- BUN 16 20 18 -- CREATININE 0.55 0.67 0.45* -- CALCIUM -- -- -- -- PROT 7.5 -- 7.1 7.1 BILITOT 0.5 -- 0.5 0.5 ALKPHOS -- -- -- -- ALT 81* -- 70* 78* AST 69* -- 62* 79* GLUCOSE -- -- -- -- IMAGING Xr Chest 1 View 05/12/13 1. Persistent bilateral lower lobe dense alveolar infiltrates, unchanged, indicating pulmon shelly edema, and/or pleural effusions, and/or ARDS. 2. Persistent cardiomegaly. 3. Resolution of recent pneumomediastinum. 4. Satisfactory position of life-support catheters. Echo Cardiac Adult Complete 05/10/2013 1. Sinus rhythm. 2. A 2-dimensional transthoracic echocardiogram with m-mode, spectral and color flow Dopple r was perfomed. 3. This was a technically adequate study. 4. Overall left ventricular systolic function is normal with, an EF between 60 - 65 %. 5. The left ventricle cavity size is normal. 6. Left ventricular wall thickness is normal. 7. The right ventricle is normal in size and function. 8. The left atrium is normal in size. 9. The right atrium is normal in size. 10. The aortic valve is trileaflet, and appears anatomically normal. No aortic stenosis or regurgitation. 11. The mitral valve is normal. 12. Mild mitral regurgitation is present. 13. The tricuspid valve appears structurally normal. 14. Mild tricuspid regurgitation present. 15. Right ventricular systolic pressure (pulmonary artery systolic pressure) is normal at < 35 mmHg. 16. Pulmonic valve appears structurally normal. 17. There is no pericardial effusion. 18. The IVC is normal size (1.5-2.5cm) and collapses <50% with sniff, consistent with centr al venous pressures of 10-15mmHg. PROBLEM LIST Principal Problem: *Acute respiratory failure with hypoxia Active Problems: Poorly controlled diabetes mellitus Morbid obesity with BMI of 45.0-49.9, adult Influenza A Abnormal LFTs (liver function tests) Acute respiratory distress syndrome (ARDS) possible Secondary bacterial pneumonia ASSESSMENT & PLAN NEURO: Daily CAM assessment and lightening of sedation. Nonfocal neurologic exam CARDIOVASCULAR: No active issues PULMONARY: ARDS from Influenza A infection: Improving weaning of higher support and FiO2. Continue with protective mode of ventilation with moderate PEEP. Tracheostomy: #8 Shiley DCT placed today by Dr. novoa without incident minimal amount of se cretions that are blood tinged at the site. Will try to aggressively wean from mechanical ve ntilation Maintain PaO2 >55, Sa02>88%, pH >7.20 GI: Ileus, non obstructive. Resolved. RENAL: No active issues. INFECTIOUS DISEASE: Influenza A. She has completed 5 days of Tamiflu. She has no evidence of suprainfection. Blood and sputum cultures are negative. She has received 4 days of antibiotics (broad spect rum). Will discontinue Levofloxacin for now. Will have low threshold of resuming abx if sign s and symptoms of infection arise. Droplet isolation has been discontinued HEME: No issues ENDOCRINE: Uncontrolled DM. On Endotool MUSCULOSKELETAL: No issues, consult PT for early mobility PROPHYLAXIS: Stress ulcer prophylaxis- Famotidine DVT prophylaxis- Lovenox VAP: chlorhexadine oral care and HOB > 30 degrees Disposition: ICU care as above. Appreciate mary help in accepting the pt, dr brown Code Status: Full Code *Please bill 45 minutes of critical care time spent evaluating the patient, reviewing the d trish and formulating a plan exclusive of all other procedures. AL HOUSTON MD 05/13/2013 3:43 PM onversion Transacti on, Provider Unknown - 05/13/2013 3:18 PM PSTFormatting of this note might be different fro m the original. Progress Notes by Juanita Herman RN at 05/13/13 1518 Author: Juanita Herman RN Service: (none) Author Type: Registered Nurse Filed: 05/13/13 1519 Date of Service: 05/13/13 1518 Status: Signed Site Foreman: Juanita Herman RN (Registered Nurse) Report received from HERIBERTO Bartlett and care assumed. Pt resting in bed with no complaints at t his time. JUANITA HERMAN 05/13/2013 3:19 PM onver elaina Transaction, Provider Unknown - 05/13/2013 1:35 PM PST Progress Notes by Edis Ken PT at 05/13/13 1335 Author: Edis Ken PT Service: (none) Author Type: Physical Therapist Filed: 05/13/13 3275 Date of Service: 05/13/13 1335 Status: Signed Site Foreman: Edis Ken PT (Physical Therapist) 05/13/13 1335 PT Last Visit PT Received On 05/13/13 Reason for Treatment Other (comment) (ARDS, on vent w/ trach) Requires PT Follow Up Yes Follow up PT Only? Yes PT Eval/Reassessment Date 05/13/13 Assistance Required 2 person Precautions Other Precautions (Tracheostomy/vent) Other Comments Comments Pt. admitted for ARDS/influenza. Pt. recently underwent tracheostomy. Pt. is on ventilatior at 55% FiO2. SpO2 maintains 94-95% during and post activity. Pt. demonstrates excellent strength. Is able to sit up at EOB w/ modA, and stand w/ even WBing distribution w/ min/modA from PT. Pt. amb'd approx. 3 ft. to chair. After seated rest pt. was able to stand again to reposition in chair. Pt. is easily fatigued, but seems to tolerate activity well overall. Pt. appears safe sitting up in chair. VS stable. Cognition Overall Cognitive Status WFL Orientation Level Oriented Bed Mobility Supine to Sit Mod assist (BLEs OOB or trunk to upright) Scooting Minimal assist;Moderate assist Transfers Sit to/from Stand Moderate assist (to arise OR lower);Minimal assist (steadying/contact gua rd) Bed to/from Chair Moderate assist (to arise OR lower);Minimal assist (steadying/contact gua rd) Mobility Ambulation Assistance Moderate assist (x3 for staff assist--lines/vent) Maximal Ambulation Distance (feet) 3 Total Ambulation Distance (feet) 3 Distance limited by? Patient's ability;Therapist/staff discretion Pattern Decreased sarah;Right swing foot doesn't pass stance foot;Left swing foot doesn't pass stance foot Assistive Device None Static Sitting Balance Static Sitting-Balance Support Feet supported Static Sitting-Level of Assistance Attains midline;Maintains midline;Standby assist Static Standing Balance Static Standing-Balance Support Trunk support Static Standing-Level of Assistance Attains midline;Maintains midline;Moderate assist Activity Tolerance Activity Tolerance Patient tolerated treatment without report of fatigue Nurse Made Aware yes Safety Devices Safety Devices in Place (call light in reach) Plan Treatment/Interventions Balance training;Bed mobility training;Transfer training;Gait train ing PT Frequency 5-7x/wk Care Duration (# of days) 7 # of days Recommendation Recommendations Continue acute care therapy (Pt. to d/c to LTAC in [place] tomorrow per notes) Equipment Recommended (May need use of 4WW initially for UE support) 05/13/13 1335 PT Last Visit PT Received On 05/13/13 Reason for Treatment Other (comment) (ARDS, on vent w/ trach) Requires PT Follow Up Yes Follow up PT Only? Yes PT Eval/Reassessment Date 05/13/13 Assistance Required 2 person Plan Treatment/Interventions Balance training;Bed mobility training;Transfer training;Gait train ing PT Frequency 5-7x/wk Care Duration (# of days) 7 # of days Home Environment Type of Home Home one story Home Exterior Layout 1-3 steps Home Interior Layout Lives on main level with bedroom/bathroom Home Equipment None (has a 4WW but does not use) Recommendation Recommendations Continue acute care therapy (Pt. to d/c to LTAC in [place] tomorrow per notes) Equipment Recommended (May need use of 4WW initially for UE support) Prior Function Level of [place] Independent with functional mobility;Independent with ADLs;Independe nt with IADLs Lives With Spouse ADL Assistance Independent Home ADL's Independent RUE Assessment RUE Assessment WFL LUE Assessment LUE Assessment WFL RLE Assessment RLE Assessment WFL LLE Assessment LLE Assessment WFL Cognition Overall Cognitive Status WFL Orientation Level Oriented Sensation Light Touch No apparent deficits Assessment of Patient Status Assessment of Patient Status Decreased functional mobility;Decreased ADL status Prognosis Should progress with skilled therapy intervention onver elaina Transaction, Provider Unknown - 05/13/2013 10:42 AM PST Case Management by MARTHA Kunz at 05/13/13 1042 Author: MARTHA Kunz Service: (none) Author Type: [employer] Filed: 05/13/13 1048 Date of Service: 05/13/131041 Status: Signed Site Foreman: MARTHA Kunz ([employer]) Met with pt and family to update. Pt has now made the decision to go to [facility] in [place] where her mother and sister live. Spoke with Edilberto [facility] liason who states that they are working on insurance auth. They are prepared to accept pt tomorrow to the [facility]. RN-RN report # is [phone] x [phone], report # is [id number] (Dr. Alli brown) . Made arrangements with [facility] [phone] to rock picker pt at 11:30 tomorrow morning. Transfer work completed and placed on pt chart. onver elaina Transaction, Provider Unknown - 05/13/2013 9:26 AM PST Case Management by MARTHA Kunz at 05/13/13925 Author: MARTHA Kunz Service: (none) Author Type: [employer] Filed: 05/13/13 1021 Date of Service: 05/13/13925 Status: Addendum Site Foreman: MARTHA Kunz ([employer]) Related Notes: Original Note by MARTHA Kunz ([employer]) filed at 05/13/13948 Spoke with pt's insurance transplant case manager Kathleen ([phone]) and Lupe ([phone]) t o discuss LTAC transfer. I also spoke with Dara Mace from [facility] who states abi t beds are opening up. Dara will get back to me juan as to whether the beds will be avail able tomorrow or Friday. [facility]. Wa iting to hear back about from insurance as to whether they will agree to letting pt stay in [facility] until Friday if bed is not available at [facility] until Friday. Called [facility] to notify that there may be a transport Friday/Friday. Informed family of current issues r egarding bed availability and insurance auth. Received t/c from Gregor Mccain at [facility] (ph: [phone], fax:[phone]) indicating th at they have a bed available at their [facility]. He is aware that the [facility] is [facility] due to proximity. Monroe Mohan MD - 05/12/2013 6:57 PM PSTFormatting of this note might be different from the origi nal. Progress Notes by Shalonda Novoa MD at 05/12/131856 Author: Shalonda Novoa MD Service: (none) Author Type: Physician Filed: 05/12/131913 Date of Service: 05/12/131856 Status: Signed Site Foreman: Shalonda Novoa MD (Physician) [facility] Service: Otolaryngology Progress Note Hospital Day: LOS: 7 days Post-Op Day: 1 Day Post-Op SUBJECTIVE The patient is a 47 y.o. female with morbid obesity who was transferred to [facility] on Apr with the diagnosis of ARDS with influenza A, on Tamiflu. She also has a histor y of poorly controlled diabetes type 2, asthma and bronchitis with prior DVT. The patient wa s admitted on May 05, 2013. Mechanical ventilation initiated on May 01, 2013 at [facility]. A-line placed right radial artery May 06, 2013. Patient requires ventilatory support. She is followed by Pulmonary Medicine and Intensive Care Medicine. Pat ient is POD 1 tracheostomy. She is ventilating easily through the tracheostomy tube. No abno rmal bleeding. Scheduled Medications albuterol 6 puff Inhalation Q4H chlorhexidine gluconate 15 mL Mouth/Throat Q12H enoxaparin 40 mg Subcutaneous Q24H famotidine 20 mg Oral BID Or famotidine 20 mg Intravenous BID insulin aspart 0-10 Units Subcutaneous Q6H AV ipratropium 6 puff Inhalation Q4H [] lidocaine-EPINEPHrine [] lidocaine-EPINEPHrine nystatin Topical BID [COMPLETED] oseltamivir 75 mg Oral BID [] oxymetazoline sodium chloride 0.9 % 10 mL Intravenous Q12H AV [DISCONTINUED] furosemide 20 mg Intravenous Once [DISCONTINUED] furosemide 40 mg Intravenous BID Continuous Infusions dextrose 20 mL/hr at 05/11/13 0824 fentaNYL in NS 5 mcg/mL 150 mcg/hr (05/12/13 1012) propofol 20 mcg/kg/min (05/12/13 0800) sodium chloride 30 mL/hr at 05/12/13 0800 PRN Medications acetaminophen, acetaminophen, dextrose, dextrose, hydrALAZINE, labetalol, lidocaine-EPINEPH rine, lip moisturizer, magnesium sulfate, magnesium sulfate, magnesium sulfate, nystatin, ny statin, ondansetron, ondansetron, pancrelipase (Txt-Ehna-Trfw) 10,000 units, petrolatum, jerri sphorus, potassium chloride, potassium chloride, potassium chloride, simethicone, sodium bic arbonate, sodium chloride 0.9 %, sodium glycerophosphate IVPB 20 mMol sodium glycerophosphate IVPB 45 mMol OBJECTIVE Vital Signs: BP 132/65 | Pulse 70 | Temp 99.6 F (37.6 C) (Axillary) | Resp 24 | Ht 1.676 m (5' 5.98" ) | Wt 145.6 kg (320 lb 15.8 oz) | BMI 51.83 kg/m2 | SpO2 95% | ? No Temp: [98.9 F (37.2 C)-100.4 F (38 C)] 99.6 F (37.6 C) (05/12 1599) BP: (113-148)/(60-81) 132/65 mmHg (05/12 1799) Heart Rate: [70-111] 70 (05/12 1799) Resp: [22-24] 24 (05/12 1599) SpO2: [90 %-96 %] 95 % (05/12 1799) FiO2 : [60 %-100 %] 60 % (05/12 1799) Physical Exam Nursing note and vitals reviewed. Constitutional: She appears well-developed and well-nourished. HENT: Head: Normocephalic and atraumatic. Right Ear: External ear normal. Left Ear: External ear normal. Nose: Nose normal. Mouth/Throat: Oropharynx is clear and moist. No oropharyngeal exudate. Eyes: Right eye exhibits no discharge. Neck: Tracheostomy in place. No active bleeding. No signs of infection CXR report and images reviewed Case d/w Dr. Gutierrez DATA CBC: Lab Results Component Value Date WBC 7.1 05/12/2013 RBC 3.90 05/12/2013 HGB 10.4* 05/12/2013 HCT 31.8* 05/12/2013 MCV 81.6 05/12/2013 MCH 26.7* 05/12/2013 MCHC 32.7 05/12/2013 RDW 39.8 05/12/2013 PLT 469* 05/12/2013 MPV 7.1 05/12/2013 DIFFTYPE AUTOMATED 05/12/2013 CMP: Lab Results Component Value Date NA 137 05/12/2013 K 4.0 05/12/2013 CL 100 05/12/2013 CO2 31 05/12/2013 ANIONGAP 9 05/12/2013 GLUF 179* 05/12/2013 BUN 20 05/12/2013 CREATININE 0.67 05/12/2013 BCR 29 05/12/2013 CA 8.8 05/12/2013 PROT 7.1 05/12/2013 ALB 2.8* 05/12/2013 GLOB 4.3 05/12/2013 BILITOT 0.5 05/12/2013 ALP 94 05/12/2013 AST 62* 05/12/2013 ALT 70* 05/12/2013 EGFR >60 05/12/2013 PROBLEM LIST Principal Problem: *Acute respiratory failure with hypoxia Active Problems: Poorly controlled diabetes mellitus Morbid obesity with BMI of 45.0-49.9, adult Influenza A Abnormal LFTs (liver function tests) Acute respiratory distress syndrome (ARDS) possible Secondary bacterial pneumonia ASSESSMENT & PLAN respiratory failure Ventilating via tracheostomy tube without difficulty RN will remove sutures on 05/16 CXR shows good position Ventilator per pulmonary medicine Disposition: Per intensive care medicine Code Status: Full Code SHALONDA NOVOA MD 05/12/2013 aEsperanza dumas MD - 05/12/2013 5:50 PM PSTFormatting of this note might be different f rom the original. Progress Notes by Esperanza Gutierrez MD at 05/12/131749 Author: Esperanza Gutierrez MD Service: (none) Author Type: Physician Filed: 05/12/131756 Date of Service: 05/12/131749 Status: Signed Site Foreman: Esperanza Gutierrez MD (Physician) [facility] Service: Control Cabinet Assembler Progress Note Gilma Salmon 47 y.o. Hospital Day: LOS: 7 days Post-Op Day: * No surgery found * Treatment Team: Consulting Physician: Shalonda Novoa MD Admitting Provider: Estefania Brannon DO SUBJECTIVE Patient Summary: Ms. Salmon is a 47-year-old female patient with morbid obesity who w as transferred to our institution on May 05, 2013 with the diagnosis of ARDS with influe nza A, on Tamiflu. She also has a history of poorly controlled diabetes type 2, asthma and b ronchitis with prior DVT. Mechanical ventilation initiated on May 01, 2013 at [facility]. ICU TIMELINE:The patient is admitted on May 05, 2013. May 06, 2013: PICC andright radial A-line placed. May 10, 2013: Dr. Novoa ENT consulted for tracheostomy. Droplet isolation removed. No f peggy. May 11, 2013: Tracheostomy placed #8 Shiley DCT Events Overnight: No acute events overnight, but this morning, patient started vomiti ng tube feeds, complaining of feeling gassy. No changes in VS, or oxygen requirements. PAST MEDICAL HISTORY: Past Medical History Diagnosis Date Poorly controlled diabetes mellitus Morbid obesity with BMI of 45.0-49.9, adult Bronchitis Influenza A (H1N1) 05/02/2013 Acute respiratory failure with hypoxia 05/04/2013 due to influenza PNA DVT (deep venous thrombosis) in thigh; no longer on coumadin Asthma Shingles PAST SURGICAL HISTORY: Past Surgical History Procedure Date Appendectomy Total abdominal hysterectomy Tonsillectomy and adenoidectomy Knee arthroscopy left knee MEDICATION ALLERGIES: Allergies Allergen Reactions Augmentin Other (See Comments) Able to take meropenem as of 04/2013 Metal (Other-Chemical) Rash Penicillins Other (See Comments) Able to take meropenem as of 04/2013 MEDICATIONS PRIOR TO ADMISSION: Prescriptions prior to admission Medication Sig Dispense Refill ALBUTEROL IN Inhale 1 puff into the lungs every 4 (four) hours as needed. azithromycin (ZITHROMAX) 250 MG tablet Take 250 mg by mouth daily. TAKE TWO TABLETS BY MOUTH NOW then ONE TABLET DAILY DAY 2-5 clindamycin (CLEOCIN) 150 MG capsule Take 300 mg by mouth 3 (three) times daily. fluconazole (DIFLUCAN) 100 MG tablet Take 150 mg by mouth daily. HYDROcodone-acetaminophen (NORCO) 5-325 MG per tablet Take 1 tablet by mouth every 4 (f our) hours as needed. HYDROcodone-acetaminophen (NORCO) 5-325 MG per tablet Take 2 tablets by mouth every 4 ( four) hours as needed. insulin glargine (LANTUS) 100 UNIT/ML injection Inject 20 Units into the skin 2 (two) t imes daily. Indications: Type 2 Diabetes ondansetron (ZOFRAN ODT) 4 MG disintegrating tablet Take 4 mg by mouth every 8 (eight) hours as needed. Scheduled Medications albuterol 6 puff Inhalation Q4H chlorhexidine gluconate 15 mL Mouth/Throat Q12H enoxaparin 40 mg Subcutaneous Q24H famotidine 20 mg Oral BID Or famotidine 20 mg Intravenous BID furosemide 40 mg Intravenous BID insulin aspart 0-10 Units Subcutaneous Q6H AV ipratropium 6 puff Inhalation Q4H [] lidocaine-EPINEPHrine [] lidocaine-EPINEPHrine nystatin Topical BID [COMPLETED] oseltamivir 75 mg Oral BID [] oxymetazoline sodium chloride 0.9 % 10 mL Intravenous Q12H AV Continuous Infusions dextrose 20 mL/hr at 05/11/13 0824 fentaNYL in NS 5 mcg/mL 150 mcg/hr (05/12/13 1012) propofol 20 mcg/kg/min (05/12/13 0800) sodium chloride 30 mL/hr at 05/12/13 0800 PHYSICAL EXAM Vital Signs: BP 137/81 | Pulse 81 | Temp 99.6 F (37.6 C) (Axillary) | Resp 24 | Ht 1.676 m (5' 5.98" ) | Wt 145.6 kg (320 lb 15.8 oz) | BMI 51.83 kg/m2 | SpO2 94% | ? No Intake/Output Summary (Last 24 hours) at 05/12/13 1750 Last data filed at 05/12/13 1615 Gross per 24 hour Intake 2797 ml Output 5190 ml Net -2393 ml Vent Mode: [-] PRVC/AC FiO2 : [60 %-100 %] 60 % EXAM GEN: sedated, araousable,no apparent distress NEURO: PERRLA, EOMI, no facial asymmetry, seems to nod appropriately, moves all extremitie s well HEENT: Tracheostomy in place and SBFT in the nares, sclerae clear, nonicteric, oral mmm, pi nk, no exudates NECK: short, supple, tracheostomy is midline sutured in place minimal amounts of bloody sec retions, no thyroidmegaly HEART: RRR, no murmur, rub or gallop LUNGS: equal in expansion, coarse breath sounds appreciated in the right upper robb no si gnificant secretions through the in line suction catheter, no rhonchi/wheezing/crackles ABD: obese, soft, nondistended, nontender to palpation, no masses, no hepatosplenomegaly EXTR: trace pedal edema but with sacral edema, clubbing or cyanosis SKIN: warm, dry, no rash or mottling; no e/o skin breakdown over the occiput, scapulae, elb ows, sacrum or heels Lab DATA Lab 05/12/13 0500 05/11/13 0419 05/10/13 0405 WBC 7.1 6.6 6.9 HGB 10.4* 10.6* 10.6* HCT 31.8* 31.0* 30.5* PLT 469* 484* 360 Lab 05/12/13 1309 05/12/13 0500 05/11/13 1747 05/11/13 0419 NA 137 136 -- 137 K 4.0 3.7 4.1 -- CL 100 102 -- 104 CO2 31 29 -- 27 BUN 20 18 -- 17 CREATININE 0.67 0.45* -- 0.57 CALCIUM -- -- -- -- PROT -- 7.1 -- 7.1 BILITOT -- 0.5 -- 0.5 ALKPHOS -- -- -- -- ALT -- 70* -- 78* AST -- 62* -- 79* GLUCOSE -- -- -- -- IMAGING Xr Chest 1 View 05/12/13 1. Persistent bilateral lower lobe dense alveolar infiltrates, unchanged, indicating pulmon shelly edema, and/or pleural effusions, and/or ARDS. 2. Persistent cardiomegaly. 3. Resolution of recent pneumomediastinum. 4. Satisfactory position of life-support catheters. Echo Cardiac Adult Complete 05/10/2013 1. Sinus rhythm. 2. A 2-dimensional transthoracic echocardiogram with m-mode, spectral and color flow Dopple r was perfomed. 3. This was a technically adequate study. 4. Overall left ventricular systolic function is normal with, an EF between 60 - 65 %. 5. The left ventricle cavity size is normal. 6. Left ventricular wall thickness is normal. 7. The right ventricle is normal in size and function. 8. The left atrium is normal in size. 9. The right atrium is normal in size. 10. The aortic valve is trileaflet, and appears anatomically normal. No aortic stenosis or regurgitation. 11. The mitral valve is normal. 12. Mild mitral regurgitation is present. 13. The tricuspid valve appears structurally normal. 14. Mild tricuspid regurgitation present. 15. Right ventricular systolic pressure (pulmonary artery systolic pressure) is normal at < 35 mmHg. 16. Pulmonic valve appears structurally normal. 17. There is no pericardial effusion. 18. The IVC is normal size (1.5-2.5cm) and collapses <50% with sniff, consistent with centr al venous pressures of 10-15mmHg. PROBLEM LIST Principal Problem: *Acute respiratory failure with hypoxia Active Problems: Poorly controlled diabetes mellitus Morbid obesity with BMI of 45.0-49.9, adult Influenza A Abnormal LFTs (liver function tests) Acute respiratory distress syndrome (ARDS) possible Secondary bacterial pneumonia ASSESSMENT & PLAN NEURO: Daily CAM assessment and lightening of sedation. Nonfocal neurologic exam CARDIOVASCULAR: No active issues PULMONARY: ARDS from Influenza A infection: Improving weaning of higher support and FiO2. Continue with protective mode of ventilation with moderate PEEP. Tracheostomy: #8 Shiley DCT placed today by Dr. novoa without incident minimal amount of se cretions that are blood tinged at the site. Will try to aggressively wean from mechanical ve ntilation Pulmonary vascular congestion. Patient diuresed well today, will hold off on further diu retics. Evaluate once more for need for diuresis in the AM. Put out 3L of UO today. Maintain PaO2 >55, Sa02>88%, pH >7.20 GI: Ileus, non obstructive. Will hold TF overnight. Resume at trickle rate in the AM. Simeth icone started to help pass gas. RENAL: No active issues. INFECTIOUS DISEASE: Influenza A. She has completed 5 days of Tamiflu. She has no evidence of suprainfection. Blood and sputum cultures are negative. She has received 4 days of antibiotics (broad spect rum). Will discontinue Levofloxacin for now. Will have low threshold of resuming abx if sign s and symptoms of infection arise. Droplet isolation has been discontinued HEME: No issues ENDOCRINE: Uncontrolled DM. On Endotool MUSCULOSKELETAL: No issues, consult PT for early mobility PROPHYLAXIS: Stress ulcer prophylaxis- Famotidine DVT prophylaxis- Loveno VAP: chlorhexadine oral care and HOB > 30 degrees Disposition: ICU care as above. Family has met with [facility] repr esentative and plan to go to that facility once patient is stable for discharge. Code Status: Full Code *Please bill 45 minutes of critical care time spent evaluating the patient, reviewing the d trish and formulating a plan exclusive of all other procedures. Esperanza Gutierrez MD 05/12/2013 5:50 PM Ash Padilla, MS [facility]-[employer] - 05/12/2013 4:29 PM PSTFormatting of this note might be different from th e original. Progress Notes by Ysabel Lucero MS CCC-SUPERINTENDENT [employer] at 05/12/13 1629 Author: Ysabel Lucero MS CCC-SUPERINT[employer] Service: (none) Author Type: Speech and Language Pathol ogist Filed: 05/12/13 1633 Date of Service: 05/12/13 1629 Status: Signed Site Foreman: Ysabel Lucero MS CCC-[employer]PER[employer] (Speech and Language Pathologist) 05/12/13 1628 [employer] Last Visit [employer]PER[employer] Received On 05/12/13 Requires [employer]PERINTENDENT [employer] Follow Up On hold (SUPERINT[employer] to complete eval in am) Pt and family given communication board so pt is able to indicate what she needs/wants. Pt indicated she is too sick and didn't want to participate in an eval today. RN reports pt ceja s been throwing up through trach, SUPERINTENDENT [employer] to con't to follow for possible pmv placement when pt is appropriate. YSABEL LUCERO MS CCC-SUPERINTENDENT ELECTRIC POWER 05/12/2013 onversion Saldana saction, Provider Unknown - 05/12/2013 2:35 PM PSTFormatting of this note might be differen t from the original. Progress Notes by Deshawn Hernandez at 05/12/13 1435 Author: Deshawn Hernandez Service: (none) Author Type: Filed: 05/12/13 1436 Date of Service: 05/12/13 1435 Status: Signed Site Foreman: Deshawn Hernandez () Participated in interdisciplinary rounds with Dr. Gutierrez, egg and spice mixer. Pt is scheduled fo r transfer to LTAC. AUTOMOTIVE TITLE CLERK sorting out location with family. Family is supported by their [facility] community. Deshawn Hernandez [facility] onver elaina Transaction, Provider Unknown - 05/12/2013 1:10 PM PST Progress Notes by Joselyn Knutson RN at 05/12/13 1310 Author: Joselyn Knutson RN Service: Wound/Ostomy Care Author Type: Registered Nurse Filed: 05/12/13 1312 Date of Service: 05/12/13 1310 Status: Signed Site Foreman: Joselyn Knutson RN (Registered Nurse) Patient seen today by stapling machine operator for evaluation due to a low Huang score. Today's Brade n scale score is 13 indicating the patient is at moderate risk for pressure ulcer developmen t or injury. Pt is awake and able to shift her weight in bed. Family/friend at bedside state s RN Bryanna assessed pt's skin this morning and there are no concerns at this time. Please consult wound care if further needs arise. Thank you, Joselyn Knutson RN 1:10 PM 05/12/2013 oncaty delaney Transaction, Provider Unknown - 05/12/2013 10:08 AM PST Case Management by MARTHA Kunz at 05/12/13 1008 Author: MARTHA Kunz Service: (none) Author Type: Laborer [employer]oder [employer] Filed: 05/12/13 1014 Date of Service: 05/12/13 1008 Status: Signed Site Foreman: MARTHA Kunz (Laborer [employer]oder [employer]) Received t/c from [facility]ON[facility]/VICTOR MANUEL tony who states that they do not have an y beds until the end of the week. Met with patient and family to discuss other options. They do not want pt to go to [facility] or [place]. They are agreeable to me making referrals to [facility] and [facility] as a back up plan if [facility] has no beds by Friday. Faxed clini christi to [facility] (fax: [phone], ph: [phone]) and [facility] (fax: [phone], ph: ). Await return calls regarding bed availability and whether they are a contracted facility with insurance. oncaty delaney Transaction, Provider Unknown - 05/11/2013 3:41 PM PST Case Management by MARTHA Kunz at 05/11/13 1541 Author: MARTHA Kunz Service: (none) Author Type: Laborer [employer] Filed: 05/11/13 1540 Date of Service: 05/11/13 1541 Status: Signed Site Foreman: MARTHA Kunz (Laborer [employer]) Provided gas voucher to pt's daughter who is returning to [place] tomorrow and coming figueroa k on . Family informed me this morning that they do not want the pt to go to [facility] after all. They have chosen [facility] as their first choice and [facility] as their second ch oice. At this time [facility] has no beds but may on . Pt is to be trached today and pe gged tomorrow. REferral made to cecily Barbosa for [facility] ([phone]) who will have insurance check into whether they are contracted or not. I notified Tarsha Washington from [facility] that the family has chosen a different facility. Will complete transfer paperwork once I kno w if [facility] has a bed available. Notified [facility] of possible transfer on . Anabelle boone, NICANOR Crisostomo - 05/11/2013 12:12 PM PSTFormatting of this note might be different f rom the original. Progress Notes by NICANOR Martines at 05/11/13 1212 Author: NICANOR Martines Service: Control Cabinet Assembler Author Type: Control Cabinet Assembler Filed: 05/11/13 1528 Date of Service: 05/11/13 1212 Status: Signed Site Foreman: NICANOR Martines (Nurse Practitioner) [facility] Service: Control Cabinet Assembler Progress Note Gilma Salmon 47 y.o. Hospital Day: LOS: 6 days Post-Op Day: * No surgery found * Treatment Team: Consulting Physician: Shalonda Novoa MD Admitting Provider: DO NATALEE East Patient Summary: Ms. Salmon is a 47-year-old female patient with morbid obesity who w as transferred to our institution on May 05, 2013 with the diagnosis of ARDS with influe nza A, on Tamiflu. She also has a history of poorly controlled diabetes type 2, asthma and b ronchitis with prior DVT. Mechanical ventilation initiated on May 01, 2013 at [facility]. ICU TIMELINE:The patient is admitted on May 05, 2013. May 06, 2013: PICC andright radial A-line placed. May 10, 2013: Dr. Novoa ENT consulted for tracheostomy. Droplet isolation removed. No f peggy. May 11, 2013: Tracheostomy placed #[address]iley [address] Events Overnight: No acute events. No fevers. PAST MEDICAL HISTORY: Past Medical History Diagnosis Date Poorly controlled diabetes mellitus Morbid obesity with BMI of 45.0-49.9, adult Bronchitis Influenza A (H1N1) 05/02/2013 Acute respiratory failure with hypoxia 05/04/2013 due to influenza PNA DVT (deep venous thrombosis) in thigh; no longer on coumadin Asthma Shingles PAST SURGICAL HISTORY: Past Surgical History Procedure Date Appendectomy Total abdominal hysterectomy Tonsillectomy and adenoidectomy Knee arthroscopy left knee MEDICATION ALLERGIES: Allergies Allergen Reactions Augmentin Other (See Comments) Able to take meropenem as of 04/2013 Metal (Other-Chemical) Rash Penicillins Other (See Comments) Able to take meropenem as of 04/2013 MEDICATIONS PRIOR TO ADMISSION: Prescriptions prior to admission Medication Sig Dispense Refill ALBUTEROL IN Inhale 1 puff into the lungs every 4 (four) hours as needed. azithromycin (ZITHROMAX) 250 MG tablet Take 250 mg by mouth daily. TAKE TWO TABLETS BY MOUTH NOW then ONE TABLET DAILY DAY 2-5 clindamycin (CLEOCIN) 150 MG capsule Take 300 mg by mouth 3 (three) times daily. fluconazole (DIFLUCAN) 100 MG tablet Take 150 mg by mouth daily. HYDROcodone-acetaminophen (NORCO) 5-325 MG per tablet Take 1 tablet by mouth every 4 (f our) hours as needed. HYDROcodone-acetaminophen (NORCO) 5-325 MG per tablet Take 2 tablets by mouth every 4 ( four) hours as needed. insulin glargine (LANTUS) 100 UNIT/ML injection Inject 20 Units into the skin 2 (two) t imes daily. Indications: Type 2 Diabetes ondansetron (ZOFRAN ODT) 4 MG disintegrating tablet Take 4 mg by mouth every 8 (eight) hours as needed. Scheduled Medications albuterol 6 puff Inhalation Q4H chlorhexidine gluconate 15 mL Mouth/Throat Q12H famotidine 20 mg Oral BID Or famotidine 20 mg Intravenous BID insulin aspart 0-10 Units Subcutaneous Q6H AV ipratropium 6 puff Inhalation Q4H lidocaine-EPINEPHrine lidocaine-EPINEPHrine nystatin Topical BID oseltamivir 75 mg Oral BID oxymetazoline sodium chloride 0.9 % 10 mL Intravenous Q12H AV [DISCONTINUED] enoxaparin 40 mg Subcutaneous Q24H Continuous Infusions dextrose 20 mL/hr at 05/11/13 0824 fentaNYL in NS 5 mcg/mL 125 mcg/hr (05/11/13 0408) propofol 40 mcg/kg/min (05/11/13 0915) sodium chloride 30 mL/hr at 05/11/13 0409 PHYSICAL EXAM Vital Signs: BP 126/71 | Pulse 77 | Temp 98.3 F (36.8 C) (Axillary) | Resp 22 | Ht 1.676 m (5' 5.98" ) | Wt 145.6 kg (320 lb 15.8 oz) | BMI 51.83 kg/m2 | SpO2 95% | ? No Intake/Output Summary (Last 24 hours) at 05/11/13 1212 Last data filed at 05/11/13 0824 Gross per 24 hour Intake 3097.12 ml Output 1345 ml Net 1752.12 ml Vent Mode: [-] PRVC/AC FiO2 : [36 %-60 %] 36 % EXAM GEN: sedated, araousable,no apparent distress NEURO: PERRLA, EOMI, no facial asymmetry, seems to nod appropriately, moves all extremitie s well HEENT: Tracheostomy in place and SBFT in the nares, sclerae clear, nonicteric, oral mmm, pi nk, no exudates NECK: Pickwickian, supple, tracheostomy is midline sutured in place minimal amounts of bloo dy secretions, no thyroidmegaly HEART: RRR, no murmur, rub or gallop LUNGS: equal in expansion, coarse breath sounds appreciated in the right upper robb no si gnificant secretions through the in line suction catheter, no rhonchi/wheezing/crackles ABD: obese, soft, nondistended, nontender to palpation, no masses, no hepatosplenomegaly EXTR: trace pedal edema but with sacral edema, clubbing or cyanosis SKIN: warm, dry, no rash or mottling; no e/o skin breakdown over the occiput, scapulae, elb ows, sacrum or heels Lab DATA Lab 05/11/1341805/10/1340405/09/13440 WBC 6.6 6.9 7.7 HGB 10.6* 10.6* 10.9* HCT 31.0* 30.5* 32.0* PLT 484* 360 363 Lab 05/11/1341805/10/13 1722 05/10/1340405/09/1344005/05/13 1320 NA 137 -- 130* 137 -- K 3.9 3.9 3.6 -- -- CL 104 -- 100 106 -- CO2 27 -- 25 26 -- BUN 17 -- 15 16 -- CREATININE 0.57 -- 0.39* 0.61 -- CALCIUM -- -- -- -- -- PROT 7.1 -- -- -- 6.3 BILITOT 0.5 -- -- -- 0.5 ALKPHOS -- -- -- -- -- ALT 78* -- -- -- 157* AST 79* -- -- -- 134* GLUCOSE -- -- -- -- -- IMAGING Xr Chest 1 View 05/11/2013 1. Interval placement of a tracheostomy tube. 2. Other life-support devices as described above. 3. Cardiomegaly and bilateral lower lobe airspace opacities and pleural ef fusions again noted. 4. Interval development of small amount of pneumomediastinum. Elect ronically signed by Naveed Hutson MD on 05/11/2013 1:05 PM Echo Cardiac Adult Complete 05/10/2013 1. Sinus rhythm. 2. A 2-dimensional transthoracic echocardiogram with m-mode, spectral and color flow Dopple r was perfomed. 3. This was a technically adequate study. 4. Overall left ventricular systolic function is normal with, an EF between 60 - 65 %. 5. The left ventricle cavity size is normal. 6. Left ventricular wall thickness is normal. 7. The right ventricle is normal in size and function. 8. The left atrium is normal in size. 9. The right atrium is normal in size. 10. The aortic valve is trileaflet, and appears anatomically normal. No aortic stenosis or regurgitation. 11. The mitral valve is normal. 12. Mild mitral regurgitation is present. 13. The tricuspid valve appears structurally normal. 14. Mild tricuspid regurgitation present. 15. Right ventricular systolic pressure (pulmonary artery systolic pressure) is normal at < 35 mmHg. 16. Pulmonic valve appears structurally normal. 17. There is no pericardial effusion. 18. The IVC is normal size (1.5-2.5cm) and collapses <50% with sniff, consistent with centr al venous pressures of 10-15mmHg. PROBLEM LIST Principal Problem: *Acute respiratory failure with hypoxia Active Problems: Poorly controlled diabetes mellitus Morbid obesity with BMI of 45.0-49.9, adult Influenza A Abnormal LFTs (liver function tests) Acute respiratory distress syndrome (ARDS) possible Secondary bacterial pneumonia ASSESSMENT & PLAN NEURO: Daily CAM assessment and lightening of sedation. Nonfocal neurologic exam CARDIOVASCULAR: No active issues PULMONARY: ARDS from Influenza A infection: Improving weaning of higher support and FiO2. Continue with protective mode of ventilation with moderate PEEP. Tracheostomy: #8 Shiley DCT placed today by Dr. novoa without incident minimal amount of se cretions that are blood tinged at the site. Will try to aggressively wean from mechanical ve ntilation Concerned with some component of pulmonary vascular congestion. Will repeat Lasix twice today as patient is still positive overall. And chest x-ray shows pulmonary vascular congest ion Maintain PaO2 >55, Sa02>88%, pH >7.20 GI: Continue tube feeding. Patient is on Peptamen bariatric as per dietitian's orders Diarrhea -no longer with large amounts. Negative for c diff. Receiving banana flakes RENAL: No active issues. INFECTIOUS DISEASE: Influenza A. She has completed 5 days of Tamiflu. She has no evidence of suprainfection. Blood and sputum cultures are negative. She has received 4 days of antibiotics (broad spect rum). Will discontinue Levofloxacin for now. Will have low threshold of resuming abx if sign s and symptoms of infection arise. Droplet isolation has been discontinued HEME: No issues ENDOCRINE: Uncontrolled DM. On Endotool MUSCULOSKELETAL: No issues, consult PT for early mobility PROPHYLAXIS: Stress ulcer prophylaxis- Famotidine DVT prophylaxis- Lovenox this was held prior to procedure and will restart tomorrow morning otherwise she is wearing SCDs VAP: chlorhexadine oral care and HOB > 30 degrees Disposition: ICU care as above. Family has met with [facility] lia naqvitive and plan to go to that facility once patient is stable for discharge. Code Status: Full Code *Please bill 45 minutes of critical care time spent evaluating the patient, reviewing the d trish and formulating a plan exclusive of all other procedures. NICANOR MARTINES 05/11/2013 12:12 PM onversion Transaction, Provider Unknown - 05/10/2013 2:37 PM PSTFormatting of this note might be diff erent from the original. Case Management by MARTHA Kunz at 05/10/13 1437 Author: MARTHA Kunz Service: (none) Author Type: Laborer [employer]oder Farm Filed: 05/10/13 9180 Date of Service: 05/10/131436 Status: Signed Site Foreman: MARTHA Kunz (Laborer [employer]) Attended morning rounds. Pt will likely be trached/pegged in the next 1-2 days. Met with p t's daughter to discuss LTAC options. They say that their father is still very sick at home with the flu and has asked them to assist with decision-making. LTAC options given. Daughter s are interested in [facility] in [place] as first choice and [facility] as second cho ice. I faxed clinical to [facility] ((fax [phone]) and spoke with the Tarsha tony ([phone]) who will plan to meet with pt's daughters tomorrow at 11:00. Salome Simms ARNP - 05/10/2013 7:25 AM PSTFormatting of this note might be different f rom the original. Progress Notes by NICANOR Martines at 05/10/13724 Author: NICANOR Martines Service: Control Cabinet Assembler Author Type: Control Cabinet Assembler Filed: 05/10/13811 Date of Service: 05/10/13724 Status: Signed Site Foreman: NICANOR Martines (Nurse Practitioner) [facility] Service: Control Cabinet Assembler Progress Note Gilma Salmon 47 y.o. Hospital Day: LOS: 5 days Post-Op Day: * No surgery found * Treatment Team: Admitting Provider: Estefania Brannon DO SUBJECTIVE Patient Summary: Ms. Salmon is a 47-year-old female patient with morbid obesity who w as transferred to our institution on May 05, 2013 with the diagnosis of ARDS with influe nza A, on Tamiflu. She also has a history of poorly controlled diabetes type 2, asthma and b ronchitis with prior DVT. Mechanical ventilation initiated on May 01, 2013 at [facility]. ICU TIMELINE:The patient is admitted on May 05, 2013. May 06, 2013: PICC andright radial A-line placed. May 10, 2013: Dr. Novoa ENT consulted for tracheostomy. Droplet isolation removed. No f peggy. Events Overnight: No acute events. No fevers. PAST MEDICAL HISTORY: Past Medical History Diagnosis Date Poorly controlled diabetes mellitus Morbid obesity with BMI of 45.0-49.9, adult Bronchitis Influenza A (H1N1) 05/02/2013 Acute respiratory failure with hypoxia 05/04/2013 due to influenza PNA DVT (deep venous thrombosis) in thigh; no longer on coumadin Asthma Shingles PAST SURGICAL HISTORY: Past Surgical History Procedure Date Appendectomy Total abdominal hysterectomy Tonsillectomy and adenoidectomy Knee arthroscopy left knee MEDICATION ALLERGIES: Allergies Allergen Reactions Augmentin Other (See Comments) Able to take meropenem as of 04/2013 Metal (Other-Chemical) Rash Penicillins Other (See Comments) Able to take meropenem as of 04/2013 MEDICATIONS PRIOR TO ADMISSION: Prescriptions prior to admission Medication Sig Dispense Refill ALBUTEROL IN Inhale 1 puff into the lungs every 4 (four) hours as needed. azithromycin (ZITHROMAX) 250 MG tablet Take 250 mg by mouth daily. TAKE TWO TABLETS BY MOUTH NOW then ONE TABLET DAILY DAY 2-5 clindamycin (CLEOCIN) 150 MG capsule Take 300 mg by mouth 3 (three) times daily. fluconazole (DIFLUCAN) 100 MG tablet Take 150 mg by mouth daily. HYDROcodone-acetaminophen (NORCO) 5-325 MG per tablet Take 1 tablet by mouth every 4 (f our) hours as needed. HYDROcodone-acetaminophen (NORCO) 5-325 MG per tablet Take 2 tablets by mouth every 4 ( four) hours as needed. insulin glargine (LANTUS) 100 UNIT/ML injection Inject 20 Units into the skin 2 (two) t imes daily. Indications: Type 2 Diabetes ondansetron (ZOFRAN ODT) 4 MG disintegrating tablet Take 4 mg by mouth every 8 (eight) hours as needed. Scheduled Medications albuterol 6 puff Inhalation Q4H chlorhexidine gluconate 15 mL Mouth/Throat Q12H enoxaparin 40 mg Subcutaneous Q24H famotidine 20 mg Oral BID Or famotidine 20 mg Intravenous BID [COMPLETED] furosemide 20 mg Intravenous Once insulin aspart 0-10 Units Subcutaneous Q6H AV ipratropium 6 puff Inhalation Q4H nystatin Topical BID oseltamivir 75 mg Oral BID sodium chloride 0.9 % 10 mL Intravenous Q12H AV Continuous Infusions fentaNYL in NS 5 mcg/mL 125 mcg/hr (05/10/13 0433) propofol 40 mcg/kg/min (05/10/13 0543) sodium chloride 30 mL/hr at 05/09/131999 PHYSICAL EXAM Vital Signs: BP 142/74 | Pulse 88 | Temp 97.8 F (36.6 C) (Oral) | Resp 22 | Ht 1.676 m (5' 5.98") | Wt 145.6 kg (320 lb 15.8 oz) | BMI 51.83 kg/m2 | SpO2 94% | ? No Intake/Output Summary (Last 24 hours) at 05/10/13 0725 Last data filed at 05/10/13 0543 Gross per 24 hour Intake 3142.49 ml Output 3320 ml Net -177.51 ml Vent Mode: [-] PRVC/AC FiO2 : [45 %-98 %] 50 % EXAM GEN: sedated, araousable,no apparent distress NEURO: PERRLA, EOMI, no facial asymmetry, seems to nod appropriately, moves all extremitie s well HEENT: ETT in place sclerae clear, nonicteric, oral mmm, pink, no exudates NECK: Pickwickian, supple, trachea midline, no thyroidmegaly HEART: RRR, no murmur, rub or gallop LUNGS: equal in expansion, clear breath sounds, no rhonchi/wheezing/crackles ABD: obese, soft, nondistended, nontender to palpation, no masses, no hepatosplenomegaly EXTR: trace pedal edema but with sacral edema, clubbing or cyanosis SKIN: warm, dry, no rash or mottling; no e/o skin breakdown over the occiput, scapulae, elb ows, sacrum or heels Lab DATA Lab 05/10/13 0405 05/09/13 0441 05/08/13 0551 WBC 6.9 7.7 6.9 HGB 10.6* 10.9* 11.1* HCT 30.5* 32.0* 32.9* PLT 360 363 307 Lab 05/10/13 0405 05/09/13 1816 05/09/13 1123 05/09/13 0441 05/08/13 0551 05/05/13 1320 NA 130* -- -- 137 138 -- K 3.6 4.0 3.9 -- -- -- CL 100 -- -- 106 106 -- CO2 25 -- -- 26 26 -- BUN 15 -- -- 16 16 -- CREATININE 0.39* -- -- 0.61 0.62 -- CALCIUM -- -- -- -- -- -- PROT -- -- -- -- -- 6.3 BILITOT -- -- -- -- -- 0.5 ALKPHOS -- -- -- -- -- -- ALT -- -- -- -- -- 157* AST -- -- -- -- -- 134* GLUCOSE -- -- -- -- -- -- IMAGING IMPRESSION: 1. Mild improvement of bilateral pulmonary infiltrates, now moderate in degree, primarily i n the lower lobes. 2. Satisfactory position of life-support catheters. LEM LIST Principal Problem: *Acute respiratory failure with hypoxia Active Problems: Poorly controlled diabetes mellitus Morbid obesity with BMI of 45.0-49.9, adult Influenza A Abnormal LFTs (liver function tests) Acute respiratory distress syndrome (ARDS) possible Secondary bacterial pneumonia ASSESSMENT & PLAN NEURO: Daily CAM assessment and lightening of sedation. Nonfocal neurologic exam CARDIOVASCULAR: No active issues PULMONARY: ARDS from Influenza A infection: Improving weaning of higher support and FiO2. Continue with protective mode of ventilation with moderate PEEP. Mechanical ventilation has been on for almost [address] Sarah Pyle spoke with t he family yesterday regarding plans for tracheostomy and do to patient's body habitus is rec ommended ENT B. consult did. I will call Dr. novoa today who is electronic lab technician from ENT the office is not open at this time. ABG: PH 7.41, PCO2 41, PO2 71, 94% SaO2. On 50% FiO2. Concerned with some component of pulmonary vascular congestion. Will give Lasix twice to day as patient is still 8 L positive overall. Maintain PaO2 >55, Sa02>88%, pH >7.20 GI: Continue tube feeding. Patient is on Peptamen bariatric a goal rate is 25 mL an hour on secondary to requiring propofol for sedation. Diarrhea -no longer with large amounts. Negative for c diff. Will have dietitian add ban javid flakes today. RENAL: No active issues. INFECTIOUS DISEASE: Influenza A. She will finish 5 days of Tamiflu. She has no evidence of suprainfection. B lood and sputum cultures are negative. She has received 4 days of antibiotics (broad spectru m). Will discontinue Levofloxacin for now. Will have low threshold of resuming abx if signs and symptoms of infection arise. Removing droplet isolation today as patient has been 2 days without fevers. HEME: No issues ENDOCRINE: Uncontrolled DM. On Endotool MUSCULOSKELETAL: No issues, consult PT for early mobility PROPHYLAXIS: Stress ulcer prophylaxis- Famotidine DVT prophylaxis- Lovenox VAP: chlorhexadine oral care and HOB > 30 degrees Disposition: ICU care as above Code Status: Full Code *Please bill 45 minutes of critical care time spent evaluating the patient, reviewing the d trish and formulating a plan exclusive of all other procedures. NICANOR MARTINES 05/10/2013 7:25 AM Lakshmi Dobbins MD - 05/09/2013 6:11 PM PSTFormatting of this note might be different fro m the original. Progress Notes by Esperanza Gutierrez MD at 05/09/13 6411 Author: Esperanza Gutierrez MD Service: Control Cabinet Assembler Author Type: Physician Filed: 05/09/131820 Date of Service: 05/09/131810 Status: Signed Site Foreman: Esperanza Gutierrez MD (Physician) [facility] Service: Control Cabinet Assembler Progress Note Gilma Salmon 47 y.o. Hospital Day: LOS: 4 days Post-Op Day: * No surgery found * Treatment Team: Admitting Provider: DO NATALEE East Patient Summary: Ms. Salmon is a 47-year-old female patient with morbid obesity who w as transferred to our institution on May 05, 2013 with the diagnosis of ARDS with influe nza A, on Tamiflu. She also has a history of poorly controlled diabetes type 2, asthma and b ronchitis with prior DVT. ICU TIMELINE:The patient is admitted on May 05, 2013. Mechanical ventilation init iated on May 01, 2013 at [facility]. A-line placed right radial artery J anuary 2013. Events Overnight: No acute events. Continues to be hemodynamically stable. Tolerated sedation holiday today. Afebrile. PEEP down to 14. FiO2 45%. PAST MEDICAL HISTORY: Past Medical History Diagnosis Date Poorly controlled diabetes mellitus Morbid obesity with BMI of 45.0-49.9, adult Bronchitis Influenza A (H1N1) 05/02/2013 Acute respiratory failure with hypoxia 05/04/2013 due to influenza PNA DVT (deep venous thrombosis) in thigh; no longer on coumadin Asthma Shingles PAST SURGICAL HISTORY: Past Surgical History Procedure Date Appendectomy Total abdominal hysterectomy Tonsillectomy and adenoidectomy Knee arthroscopy left knee MEDICATION ALLERGIES: Allergies Allergen Reactions Augmentin Other (See Comments) Able to take meropenem as of 04/2013 Metal (Other-Chemical) Rash Penicillins Other (See Comments) Able to take meropenem as of 04/2013 MEDICATIONS PRIOR TO ADMISSION: Prescriptions prior to admission Medication Sig Dispense Refill ALBUTEROL IN Inhale 1 puff into the lungs every 4 (four) hours as needed. azithromycin (ZITHROMAX) 250 MG tablet Take 250 mg by mouth daily. TAKE TWO TABLETS BY MOUTH NOW then ONE TABLET DAILY DAY 2-5 clindamycin (CLEOCIN) 150 MG capsule Take 300 mg by mouth 3 (three) times daily. fluconazole (DIFLUCAN) 100 MG tablet Take 150 mg by mouth daily. HYDROcodone-acetaminophen (NORCO) 5-325 MG per tablet Take 1 tablet by mouth every 4 (f our) hours as needed. HYDROcodone-acetaminophen (NORCO) 5-325 MG per tablet Take 2 tablets by mouth every 4 ( four) hours as needed. insulin glargine (LANTUS) 100 UNIT/ML injection Inject 20 Units into the skin 2 (two) t imes daily. Indications: Type 2 Diabetes ondansetron (ZOFRAN ODT) 4 MG disintegrating tablet Take 4 mg by mouth every 8 (eight) hours as needed. Scheduled Medications albuterol 6 puff Inhalation Q4H chlorhexidine gluconate 15 mL Mouth/Throat Q12H enoxaparin 40 mg Subcutaneous Q24H famotidine 20 mg Oral BID Or famotidine 20 mg Intravenous BID [COMPLETED] furosemide 20 mg Intravenous Once insulin aspart 0-10 Units Subcutaneous Q6H AV ipratropium 6 puff Inhalation Q4H nystatin Topical BID oseltamivir 75 mg Oral BID sodium chloride 0.9 % 10 mL Intravenous Q12H AV Continuous Infusions fentaNYL in NS 5 mcg/mL 125 mcg/hr (05/09/13 1738) propofol 40 mcg/kg/min (05/09/13 1619) sodium chloride 30 mL/hr at 05/08/13 0444 PHYSICAL EXAM Vital Signs: BP 131/71 | Pulse 82 | Temp 98.2 F (36.8 C) (Oral) | Resp 22 | Ht 1.676 m (5' 5.98") | Wt 145.6 kg (320 lb 15.8 oz) | BMI 51.83 kg/m2 | SpO2 93% | ? No Intake/Output Summary (Last 24 hours) at 05/09/13 1811 Last data filed at 05/09/13 1757 Gross per 24 hour Intake 3443.2 ml Output 3335 ml Net 108.2 ml EXAM GEN: sedated, araousable,no apparent distress NEURO: PERRLA, EOMI, no facial asymmetry, seems to nod appropriately, moves all extremitie s well HEENT: ETT in place sclerae clear, nonicteric, oral mmm, pink, no exudates NECK: supple, trachea midline, no thyroidmegaly HEART: RRR, no murmur, rub or gallop LUNGS: equal in expansion, clear breath sounds, no rhonchi/wheezing/crackles ABD: obese, soft, nondistended, nontender to palpation, no masses, no hepatosplenomegaly EXTR: trace pedal edema but with sacral edema, clubbing or cyanosis SKIN: warm, dry, no rash or mottling; no e/o skin breakdown over the occiput, scapulae, elb ows, sacrum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 05/06/13415 propofol 40 mcg/kg/min (05/06/13533) sodium chloride 30 mL/hr at 05/06/13415 PRN Medications acetaminophen, acetaminophen, dextrose, dextrose, dextrose, hydrALAZINE, labetalol, lip moises sturizer, magnesium sulfate, magnesium sulfate, magnesium sulfate, nystatin, nystatin, ondan setron, ondansetron, pancrelipase (Hcb-Iywl-Ymbu) 10,000 units, petrolatum, phosphorus, pota ssium chloride, potassium chloride, potassium chloride, sodium bicarbonate, sodium chloride 0.9 %, sodium glycerophosphate IVPB 20 mMol, sodium glycerophosphate IVPB 45 mMol ROS: Cardio: no issues Pulm: ARDS GI: Tolerating TF : No issues with azevedo in place PHYSICAL EXAM Vital Signs: BP 112/58 | Pulse 78 | Temp 99.2 F (37.3 C) (Oral) | Resp 22 | Ht 1.676 m (5' 6") | Wt 141.2 kg (311 lb 4.6 oz) | BMI 50.27 kg/m2 | SpO2 96% | ? No Intake/Output Summary (Last 24 hours) at 05/06/13551 Last data filed at 05/06/13415 Gross per 24 hour Intake 4298.1 ml Output 1407 ml Net 2891.1 ml EXAM GEN: sedated, araousable, Rass -2 , oriented x3, no apparent distress NEURO: PERRLA, EOMI, no facial asymmetry, speech normal, moves all extremities well GCS: 11t HEENT: ETT in place sclerae clear, nonicteric, oral mmm, pink, no exudates NECK: supple, trachea midline, no thyroidmegaly HEART: RRR, no murmur, rub or gallop LUNGS: transmitted rhonchi, clear b/l, no wheezing, crackles ABD: globose, soft, nondistended, nontender to palpation, no masses, no hepatosplenomegaly EXTR: no edema, clubbing or cyanosis SKIN: warm, dry, no rash or mottling; no e/o skin breakdown over the occiput, scapulae, elb ows, sacrum or heels Lab DATA Medical Record Review: Mg 1.6, PFratio 110 IMAGING PROBLEM LIST Active Problems: Poorly controlled diabetes mellitus Morbid obesity with BMI of 45.0-49.9, adult Influenza A (H1N1) Acute respiratory failure with hypoxia Abnormal LFTs (liver function tests) ASSESSMENT & PLAN NEURO: Cont with sedation, if increase of MV support needed she may require paralytics. CARDIOVASCULAR: No isues PULMONARY: ARDS noted cont with MV at 6 cc kg ibw, and peep of 18 w fio2 of 60 %, no acute changes. w GI: Cont TF will increase rate today RENAL: No issus INFECTIOUS DISEASE: Cont with tamifle, vanc and meropenem HEME: No issues ENDOCRINE: ISS and Gtt in mar MUSCULOSKELETAL: No issues, consult PT for early mobility PROPHYLAXIS: Stress ulcer prophylaxis- H2B DVT prophylaxis- lovenox VAP: chlorhexadine oral care and HOB > 30 degrees Disposition: cont ICU Code Status: Full Code *Please bill 35 minutes of critical care time spent evaluating the patient, reviewing the d trish and formulating a plan exclusive of all other procedures. HAN GUERRERO MD 05/06/2013 5:52 AM onver elaina Transaction, Provider Unknown - 05/05/2013 10:45 PM PST Progress Notes by Hna Guerrero DMD at 05/05/139 Author: Han Guerrero DMD Service: (none) Author Type: Physician Filed: 05/05/13 9079 Date of Service: 05/05/132244 Status: Signed Site Foreman: Han Guerrero DMD (Dentist) [facility] Service: Control Cabinet Assembler PM note Gilma Leyva Viky 47 y.o. Evaluated the patient in the PM as F/U. Pt at 8 cc.kg IBW and PP at 37 FOCUSED PHYSICAL EXAM Vital Signs: BP 97/53 | Pulse 78 | Temp 99.4 F (37.4 C) (Oral) | Resp 20 | Ht 1.676 m (5' 6") | Wt 1 38.9 kg (306 lb 3.5 oz) | BMI 49.45 kg/m2 | SpO2 95% | ? No Intake/Output Summary (Last 24 hours) at 05/05/13 2246 Last data filed at 05/05/13 2207 Gross per 24 hour Intake 2152.8 ml Output 890 ml Net 1262.8 ml Rast -2, lungs CTA, abdomen globose Lab DATA Medical Record Review: PF ratio 125 IMAGING PROBLEM LIST Active Problems: Poorly controlled diabetes mellitus Morbid obesity with BMI of 45.0-49.9, adult Influenza A (H1N1) Acute respiratory failure with hypoxia Abnormal LFTs (liver function tests) ASSESSMENT & PLAN Will need [place], decreased MV to 6 cc kg ibw, monitor closely for worsening ARDS and need for alternative ventilation *Please bill 10 minutes of critical care time spent evaluating the patient, reviewing the d trish and formulating a plan exclusive of all other procedures. HAN GUERRERO MD 05/05/2013 10:46 PM onver elaina Transaction, Provider Unknown - 05/05/2013 2:15 PM PST Progress Notes by Jenniffer Hidalgo RPH at 05/05/131414 Author: Jenniffer Hidalgo RPH Service: (none) Author Type: Pharmacist Filed: 05/05/13 141 Date of Service: 05/05/131414 Status: Signed Site Foreman: Jenniffer Hidalgo RPH (Pharmacist) Initiation of Vancomycin Pharmacy Dosing Gilma Salmon 47 y.o. female 1.676 m (5' 6") 138.9 kg (306 lb 3.5 oz) Body mass index is 49.45 kg/(m^2). [place] Body Weight: 59.3 kg Adjusted Body Weight: 91.1 kg CREATININE Date Value Range Status 05/05/2013 0.81 0.50 - 1.00 mg/dL Final Testing performed at [facility];[address] [facility];[place] [address] Estimated CrCl : CREATININE: 0.81 (05/05/13 1320) Estimated creatinine clearance - Cockcroft-Gault CrCl: 122.2 mL/min Indications: Community acquired pneumonia Dose per Protocol: Loading Dose: Vancomycin 2250 mg (17mg/kg TBW) IV Q12H Used SCr 0.52 in chart from 014 [facility] First Dose to be Given: 1500 05-05-2013 Vancomycin Trough Due: 05-07-2013 1400 Goal Trough for Vancomycin: 15-20 mcg/mL Pharmacist: JENNIFFER HIDALGO 05/05/2013 2:13 PM onver elaina Transaction, Provider Unknown - 05/05/2013 12:53 PM PST Progress Notes by Jenniffer Hidalgo RPH at 05/05/13 1253 Author: Jenniffer Hidalgo RPH Service: (none) Author Type: Pharmacist Filed: 05/05/13 1251 Date of Service: 05/05/13 1259 Status: Signed Site Foreman: Jenniffer Hidalgo RPH (Pharmacist) Renal Dosing Monitoring: Gilma Salmon 47 y.o. female Pharmacy dosing for renal function per Dr. Brannon Medication(s): unable to assess without labs Plan per protocol: Medication / Dose: will reassess Pharmacy will continue monitoring patient for appropriate dosing per renal function. 05/05/2013 12:52 PM Pharmacist: JENNIFFER HIDALGO docume nted in this encounter H&P Notes Estefania Brannon - 05/05/2013 1:09 PM PSTFormatting of this note might be different fr om the original. H&P by Estefania Brannon DO at 05/05/13 1468 Author: Estefania Brannon DO Service: Control Cabinet Assembler Author Type: Control Cabinet Assembler Filed: 05/05/13 1509 Date of Service: 05/05/13 1309 Status: Addendum Site Foreman: Estefania Brannon DO (Physician) Related Notes: Original Note by Estefania Brannon DO (Physician) filed at 05/05/13 5544 [facility] Service: Control Cabinet Assembler Admission History & Physical Gilma Salmon 47 y.o. Date of Admission: 05/05/2013 Requesting Physician: Dr. Hernandes, Hospitalist at [facility] Indication for ICU Admission: acute respiratory failure, influenza A pneumonia History Obtained From: daughter, chart review, Reason patient could not give history: int ubated CHIEF COMPLAINT: No chief complaint on file. HISTORY OF PRESENT ILLNESS The patient is a 47 y.o. female with significant past medical history of morbid obesity, po iris controlled Type II diabetes, asthma with intermittent bronchitis and prior DVT who pres ented to the ED at [facility] on 05/01 for cough and fever and was discharged home. She pr esented there again the next day with SOB, weakness, cough, fever and dizziness. She was the n admitted and tested positive for influenza A and was started on Tamiflu. She became progre ssively more hypoxemic with increasing b/l infiltrates on CXR and was transferred to [facility] for further management after she was intubated on the evening of 05/04. (Pt had just receiv ed flu shot on 04/29/13 at [facility]). REVIEW OF SYSTEMS A comprehensive review of systems was not obtainable as the patient is intubated and sedate d. Her ED ROS was also positive for weakness, nausea without vomiting, myalgias and a rash. She was also SOB and complained of some pain with breathing. As above ROS was positive for f peggy, chills and cough. PAST MEDICAL HISTORY: Past Medical History Diagnosis Date Poorly controlled diabetes mellitus Morbid obesity with BMI of 45.0-49.9, adult Bronchitis Influenza A (H1N1) 05/02/2013 Acute respiratory failure with hypoxia 05/04/2013 due to influenza PNA DVT (deep venous thrombosis) in thigh; no longer on coumadin Asthma Shingles PAST SURGICAL HISTORY: Past Surgical History Procedure Date Appendectomy Total abdominal hysterectomy Tonsillectomy and adenoidectomy Knee arthroscopy left knee MEDICATION ALLERGIES: Allergies Allergen Reactions Augmentin Other (See Comments) Unknown reaction Metal (Other-Chemical) Rash Penicillins Other (See Comments) Unknown MEDICATIONS PRIOR TO ADMISSION: Prescriptions prior to admission Medication Sig Dispense Refill ALBUTEROL IN Inhale 1 puff into the lungs every 4 (four) hours as needed. fluconazole (DIFLUCAN) 100 MG tablet Take 150 mg by mouth daily. HYDROcodone-acetaminophen (NORCO) 5-325 MG per tablet Take 1 tablet by mouth every 4 (f our) hours as needed. HYDROcodone-acetaminophen (NORCO) 5-325 MG per tablet Take 2 tablets by mouth every 4 ( four) hours as needed. ondansetron (ZOFRAN ODT) 4 MG disintegrating tablet Take 4 mg by mouth every 8 (eight) hours as needed. FAMILY HISTORY OF SIGNIFICANCE: No family history on file. SOCIAL HISTORY: History Social History Marital Status: Spouse Name: N/A Number of Children: N/A Years of Education: N/A Occupational History Not on file. Social History Main Topics Smoking status: Never Smoker Smokeless tobacco: Not on file Alcohol Use: No Drug Use: No Sexually Active: Not on file Other Topics Concern Not on file Social History Narrative No narrative on file PHYSICAL EXAM Vital Signs: BP 135/67 | Pulse 98 | Temp 99.8 F (37.7 C) (Oral) | Resp 19 | Ht 1.676 m (5' 6") | Wt 138.9 kg (306 lb 3.5 oz) | BMI 49.45 kg/m2 | SpO2 95% | ? No Temp: [99.8 F (37.7 C)] 99.8 F (37.7 C) (05/05 1225) BP: (135)/(67) 135/67 mmHg (05/05 1225) Heart Rate: [98-102] 98 (05/05 1230) Resp: [19] 19 (05/05 1225) SpO2: [93 %-96 %] 95 % (05/05 1230) Height: [167.6 cm (5' 6")] 167.6 cm (5' 6") (05/05 123) Weight: [138.9 kg (306 lb 3.5 oz)] 138.9 kg (306 lb 3.5 oz) (05/05 123) BMI (Calculated): [49.5] 49.5 (05/05 123) FiO2 : [70 %-100 %] 70 % (05/05 1230) EXAM GEN: morbidly obese, intubated, sedated, NAD NEURO: PERRLA, lightly sedated and opens eyes to voice, no facial asymmetry, follows comman ds, moves all extremities well GCS: 10T HEENT: sclerae clear, nonicteric, oral mmm, pink, no exudates, oral ETT and OGT in place NECK: supple, obese, trachea midline HEART: RRR, no murmur, rub or gallop LUNGS: clear b/l, no wheezing, crackles or rhonchi ABD: soft, obese, mild erythema under panus and in inguinal folds, nondistended, nontender to palpation, no masses EXTR: no edema, clubbing or cyanosis SKIN: warm, dry, no rash or mottling; no e/o skin breakdown over the occiput, scapulae, elb ows, sacrum or heels DATA CBC: Lab Results Component Value Date WBC 6.6 05/05/2013 RBC 4.48 05/05/2013 HGB 12.4 05/05/2013 HCT 36.1 05/05/2013 MCV 80.6 05/05/2013 MCH 27.7 05/05/2013 MCHC 34.3 05/05/2013 RDW 41.1 05/05/2013 PLT 211 05/05/2013 MPV 8.2 05/05/2013 DIFFTYPE AUTOMATED 05/05/2013 CMP: Lab Results Component Value Date NA 139 05/05/2013 K 3.4* 05/05/2013 CL 104 05/05/2013 CO2 27 05/05/2013 ANIONGAP 11 05/05/2013 GLUF 188* 05/05/2013 BUN 3* 05/05/2013 CREATININE 0.81 05/05/2013 BCR 4 05/05/2013 CA 7.6* 05/05/2013 PROT 6.3 05/05/2013 ALB 2.2* 05/05/2013 GLOB 4.1 05/05/2013 BILITOT 0.5 05/05/2013 ALP 99 05/05/2013 AST 134* 05/05/2013 ALT 157* 05/05/2013 EGFR >60 05/05/2013 Magnesium: Lab Results Component Value Date MG 1.5* 05/05/2013 Phosphorus: Lab Results Component Value Date PHOS 1.8* 05/05/2013 IMAGING PROBLEM LIST Active Problems: Poorly controlled diabetes mellitus Morbid obesity with BMI of 45.0-49.9, adult Influenza A (H1N1) Acute respiratory failure with hypoxia Abnormal LFTs (liver function tests) ASSESSMENT & PLAN NEURO: No issues Sedation for intubation: daily sedation holidays and keep Hayden 2-3. CARDIOVASCULAR: Hemodynamically stable PULMONARY: Acute respiratory failure: due to Influenza A pneumonia. Will send sputum for cx as at r isk for secondary bacterial PNA. Will keep higher PEEP and wean FIO2 for sats >90%. Asthma: without e/o acute exacerbation. ETT a little high on CXR, will advance 2 cm. GI: Elevated AST/ALT: mild. Monitor. Had neg viral hepatitis serologies at [facility]. RENAL: Hypokalemia: replace and follow HypoMg: replace and follow HypoPhos: replace and follow INFECTIOUS DISEASE: Influenza PNA: on Tamiflu for 10 day course. Empiric abx. Follow sputum cx and taper abx based on this and clinical course. HEME: Normal CBC ENDOCRINE: Poorly controlled type II DM: check HbA1c and start Endotool. Needs diabetes education i n or outpt once improved. Dtr reports pt has not wanted to manage diabetes but not sure why. MUSCULOSKELETAL: H/o DVT no longer on Coumadin. Will place on SQ Lovenox for DVT prophylaxis. PROPHYLAXIS: Stress ulcer prophylaxis: Pepcid for intubation DVT prophylaxis: SQ Lovenox VAP bundle: chlorhexadine oral care, HOB >30 degrees. Disposition: ICU care above. Code Status: Full Code Primary Care Physician: MARY VALDEZ *Please bill 50 minutes of critical care time spent evaluating the patient, reviewing the d trish and formulating a plan exclusive of all other procedures. Estefania Brannon DO 05/05/2013 3:04 PM documented in this encounter Procedure Notes Shalonda Novoa MD - 05/11/2013 12:44 PM PSTFormatting of this note might be different from [facility] original. Procedures by Shalonda Novoa MD at 05/11/13 5303 Author: Shalonda Novoa MD Service: (none) Author Type: Physician Filed: 05/11/13 2675 Date of Service: 05/11/13 3746 Status: Signed Site Foreman: Shalonda Novoa MD (Physician) [facility] Service: Otolaryngology Operative Note Pre-operative Diagnosis: Respiratory Failure Post-operative Diagnosis: Same Procedure(s): Tracheostomy, Nasogastric tube insertion Surgeon: SHALONDA NOVOA MD Storeroom Clerk(s): Alexandrea LOUIS Anesthesia: General endotrachial anesthesia Estimated Blood Loss: Less Than 50 ml Other: #8 Shiley DCT tracheostomy tube, 10 Finnish nasogastric feeding tube Indications: 47 YOF with respiratory failure. The procedure risks, benefits, alternatives were discussed with daughter preop. Risks including but not limited to bleeding, infection, pneumothorax, stroke, myocardial infarction, pulmonary embolus, . Findings: #8 Shiley DCT tube placed through second tracheal ring incision Complications: None Description of Procedure: Time out taken, site, surgical procedures, patient identity conf irmed. Neck was steriley prepped and draped. Landmarks were identified. A two cm vertical mi dline incision was made. The soft tissue was dissected using Harmonic Scalpel. The midline r aphe of the strap muscles was identified and dissected. The thyroid isthmus was identified. The isthmus was divided with the harmonic scalpel. The anterior face of the trachea was iden tified. The second tracheal ring was identified. A rectangular incision was made. The incisi on was dilated. The endotracheal tube was devanced. The tracheostomy tube was placed. The po sition was confirmed with CO2 capnography. Two 0 silk sutures were placed at the superior ed ge of the trach tube. Trach ties were placed. The nose was examined. The left nostril was th e largest. The nasogastric tube was lubricated and passed through the nasal cavity. The mout h was opened and mucus suction and the tube was advanced into the oropharynx. The patient ceja s a large tongue. The NG tube was advanced into the stomach. Air was insufflated into the tu be and heard with a stethoscope in the abdomen. Condition: Stable SHALONDA NOVOA MD 05/11/2013 onversio n Transaction, Provider Unknown - 05/06/2013 1:01 AM PSTFormatting of this note might be di fferent from the original. Procedures by Han Guerrero DMD at 05/06/13 0101 Author: Han Guerrero DMD Service: (none) Author Type: Physician Filed: 05/06/13 010 Date of Service: 05/06/13100 Status: Signed Site Foreman: Han Guerrero DMD (Dentist) Procedure Orders: 1. Insert arterial line [[id number]] ordered by Han Guerrero DMD at 05/06/13 010 Post-procedure Diagnoses: 1. Acute respiratory failure (HCC) [518.81] [facility] Service: Control Cabinet Assembler BEDSIDE PROCEDURE NOTE Insert Arterial Line Date/Time: 05/05/2013 1:01 AM Performed by: HAN GUERRERO Authorized by: HAN GUERRERO Consent: The procedure was performed in an emergent situation. Patient identity confirmed: anonymous protocol, patient vented/unresponsive Time out: Immediately prior to procedure a "time out" was called to verify the correct gee ent, procedure, equipment, account support analyst and site/side marked as required. Preparation: Patient was prepped and draped in the usual sterile fashion. Indications: multiple ABGs and respiratory failure Location: right radial Anesthesia: local infiltration Local anesthetic: lidocaine 1% without epinephrine Anesthetic total: 0.5 ml Patient sedated: yes Sedatives: propofol Analgesia: fentanyl Preparation: skin prepped with 2% chlorhexidine Skin prep agent dried: skin prep agent completely dried prior to procedure Sterile barriers: all five maximum sterile barriers used - cap, mask, sterile gown, sterile gloves, and large sterile sheet Hand hygiene: hand hygiene performed prior to central venous catheter insertion Zane's test normal: yes Needle gauge: 20 Seldinger technique: Seldinger technique used Number of attempts: 1 Post-procedure: line sutured and dressing applied Post-procedure CMS: unchanged Patient tolerance: Patient tolerated the procedure well with no immediate complications. HAN GUERRERO MD 05/06/2013 docume nted in this encounter Consult Notes Shalonda Novoa MD - 05/11/2013 10:26 AM PSTFormatting of this note might be different from th e original. Consult* by Shalonda Novoa MD at 05/11/13 1021 Author: Shalonda Novoa MD Service: (none) Author Type: Physician Filed: 05/11/13 1039 Date of Service: 05/11/13 1026 Status: Signed Site Foreman: Shalonda Novoa MD (Physician) [facility] Service: Otolaryngology Initial Consult Note Date of Admission: 05/05/2013 Reason for Consultation: Respiratory Failure requiring mechanical ventilation Requesting Physician: Control Cabinet Assembler History Obtained From: daughter, chart review Date of Service: 05/10/2013 CHIEF COMPLAINT: Respiratory failure HISTORY OF PRESENT ILLNESS The patient is a 47 y.o. female with morbid obesity who was transferred to [facility] on 2013 with the diagnosis of ARDS with influenza A, on Tamiflu. She also has a history o f poorly controlled diabetes type 2, asthma and bronchitis with prior DVT. The patient was a dmitted on May 05, 2013. Mechanical ventilation initiated on May 01, 2013 at [facility]. A-line placed right radial artery May 06, 2013. Patient requires ve ntilatory support. She is followed by Pulmonary Medicine and Intensive Care Medicine. Her hu sband is very ill with influenza and her daughter signs consents. REVIEW OF SYSTEMS Review of Systems Unable to perform ROS Past Medical History Diagnosis Date Poorly controlled diabetes mellitus Morbid obesity with BMI of 45.0-49.9, adult Bronchitis Influenza A (H1N1) 05/02/2013 Acute respiratory failure with hypoxia 05/04/2013 due to influenza PNA DVT (deep venous thrombosis) in thigh; no longer on coumadin Asthma Shingles Past Surgical History Procedure Date Appendectomy Total abdominal hysterectomy Tonsillectomy and adenoidectomy Knee arthroscopy left knee Allergies Allergen Reactions Augmentin Other (See Comments) Able to take meropenem as of 04/2013 Metal (Other-Chemical) Rash Penicillins Other (See Comments) Able to take meropenem as of 04/2013 Prescriptions prior to admission Medication Sig Dispense Refill ALBUTEROL IN Inhale 1 puff into the lungs every 4 (four) hours as needed. azithromycin (ZITHROMAX) 250 MG tablet Take 250 mg by mouth daily. TAKE TWO TABLETS BY MOUTH NOW then ONE TABLET DAILY DAY 2-5 clindamycin (CLEOCIN) 150 MG capsule Take 300 mg by mouth 3 (three) times daily. fluconazole (DIFLUCAN) 100 MG tablet Take 150 mg by mouth daily. HYDROcodone-acetaminophen (NORCO) 5-325 MG per tablet Take 1 tablet by mouth every 4 (f our) hours as needed. HYDROcodone-acetaminophen (NORCO) 5-325 MG per tablet Take 2 tablets by mouth every 4 ( four) hours as needed. insulin glargine (LANTUS) 100 UNIT/ML injection Inject 20 Units into the skin 2 (two) t imes daily. Indications: Type 2 Diabetes ondansetron (ZOFRAN ODT) 4 MG disintegrating tablet Take 4 mg by mouth every 8 (eight) hours as needed. Scheduled Medications albuterol 6 puff Inhalation Q4H chlorhexidine gluconate 15 mL Mouth/Throat Q12H famotidine 20 mg Oral BID Or famotidine 20 mg Intravenous BID insulin aspart 0-10 Units Subcutaneous Q6H AV ipratropium 6 puff Inhalation Q4H nystatin Topical BID oseltamivir 75 mg Oral BID sodium chloride 0.9 % 10 mL Intravenous Q12H AV [DISCONTINUED] enoxaparin 40 mg Subcutaneous Q24H Continuous Infusions dextrose 20 mL/hr at 05/11/13 0824 fentaNYL in NS 5 mcg/mL 125 mcg/hr (05/11/13 0408) propofol 40 mcg/kg/min (05/11/13 0915) sodium chloride 30 mL/hr at 05/11/13 0409 PRN Medications acetaminophen, acetaminophen, dextrose, dextrose, hydrALAZINE, labetalol, lip moisturizer, magnesium sulfate, magnesium sulfate, magnesium sulfate, nystatin, nystatin, ondansetron, on dansetron, pancrelipase (Biy-Qdtz-Kcjh) 10,000 units, petrolatum, phosphorus, potassium chlo ride, potassium chloride, potassium chloride, sodium bicarbonate, sodium chloride 0.9 %, sod ium glycerophosphate IVPB 20 mMol, sodium glycerophosphate IVPB 45 mMol [DISCONTINUED] pancrelipase (Whr-Khqb-Uzeg) 10,000 units, [DISCONTINUED] pancrelipase (Lip- Prot-Amyl) 10,000 units, [DISCONTINUED] sodium bicarbonate, [DISCONTINUED] sodium bicarbonat e No family history on file. History Social History Marital Status: Spouse Name: N/A Number of Children: N/A Years of Education: N/A Occupational History Not on file. Social History Main Topics Smoking status: Never Smoker Smokeless tobacco: Not on file Alcohol Use: No Drug Use: No Sexually Active: Not on file Other Topics Concern Not on file Social History Narrative No narrative on file History Smoking status Never Smoker Smokeless tobacco Not on file History Alcohol Use No PHYSICAL EXAM Vital Signs: BP 134/75 | Pulse 82 | Temp 98.3 F (36.8 C) (Axillary) | Resp 22 | Ht 1.676 m (5' 5.98" ) | Wt 145.6 kg (320 lb 15.8 oz) | BMI 51.83 kg/m2 | SpO2 91% | ? No Temp: [98.2 F (36.8 C)-99.6 F (37.6 C)] 98.3 F (36.8 C) (05/11 799) BP: (122-137)/(66-77) 134/75 mmHg (05/11 899) Heart Rate: [74-90] 82 (05/11 899) Resp: [22-23] 22 (05/11 812) SpO2: [91 %-95 %] 91 % (05/11 899) FiO2 : [50 %] 50 % (05/11 899) Patient Vitals for the past 24 hrs: BP Temp Temp src Pulse Resp SpO2 05/11/13 0900 134/75 mmHg - - 82 - 91 % 05/11/13 0813 - - - 79 22 92 % 05/11/13 0800 137/77 mmHg 98.3 F (36.8 C) Axillary 78 22 92 % 05/11/13 0600 128/66 mmHg - - 76 - 92 % 05/11/13 0500 130/70 mmHg - - 79 - 93 % 05/11/13 0400 133/72 mmHg 98.2 F (36.8 C) Oral 76 22 93 % 05/11/13 0340 - - - 74 - 93 % 05/11/13 0300 133/70 mmHg - - 76 - 93 % 05/11/13 0200 135/71 mmHg - - 75 - 94 % 05/11/13 0100 124/67 mmHg - - 80 - 92 % 05/11/13 0000 131/71 mmHg 99.3 F (37.4 C) Oral 82 22 93 % 05/10/13 2320 - - - 81 - 93 % 05/10/13 2300 131/74 mmHg - - 81 - 93 % 05/10/13 2200 125/68 mmHg - - 80 - 93 % 05/10/13 2100 - - - 82 - 93 % 05/10/131999 131/67 mmHg 99.6 F (37.6 C) Oral 89 22 93 % 05/10/13 1930 - - - 81 - 94 % 05/10/13 1900 129/72 mmHg - - 85 - 94 % 05/10/13 1830 - - - 83 - 94 % 05/10/13 1800 - - - 81 - 93 % 05/10/13 1730 - - - 82 - 93 % 05/10/13 1700 122/70 mmHg - - 82 - 93 % 05/10/13 1630 - - - 86 - 94 % 05/10/13 1600 - 99 F (37.2 C) Axillary 77 22 94 % 05/10/13 1530 - - - 80 - 94 % 05/10/13 1516 - - - 82 22 94 % 05/10/13 1513 - - - 79 23 94 % 05/10/13 1500 - - - 80 - 94 % 05/10/13 1430 - - - 86 - 94 % 05/10/13 1400 - - - 86 - 95 % 05/10/13 1330 - - - 82 - 95 % 05/10/13 1300 130/70 mmHg - - 87 - 94 % 05/10/13 1230 - - - 90 - 93 % 05/10/13 1215 - - - 88 22 94 % 05/10/13 1211 - - - 89 22 92 % 05/10/13 1200 - 99.4 F (37.4 C) Axillary 90 22 92 % 05/10/13 1130 - - - 89 - 93 % 05/10/13 1100 - - - 89 - 92 % Temp (24hrs), Av F (37.2 C), Min:98.2 F (36.8 C), Max:99.6 F (37.6 C) Physical Exam Constitutional: She appears well-developed and well-nourished. No distress. HENT: Head: Normocephalic and atraumatic. Right Ear: External ear normal. Left Ear: External ear normal. Nose: Nose normal. Mouth/Throat: Oropharynx is clear and moist. No oropharyngeal exudate. Eyes: Right eye exhibits no discharge. Left eye exhibits no discharge. Neck: No thyromegaly present. Cardiovascular: Normal rate, regular rhythm and normal heart sounds. Pulmonary/Chest: Effort normal and breath sounds normal. Abdominal: Soft. Bowel sounds are normal. Skin: Skin is warm and dry. She is not diaphoretic. DATA CBC: Lab Results Component Value Date WBC 6.6 05/11/2013 RBC 3.85 05/11/2013 HGB 10.6* 05/11/2013 HCT 31.0* 05/11/2013 MCV 80.5 05/11/2013 MCH 27.5 05/11/2013 MCHC 34.1 05/11/2013 RDW 41.1 05/11/2013 PLT 484* 05/11/2013 MPV 6.8 05/11/2013 DIFFTYPE AUTOMATED 05/11/2013 CMP: Lab Results Component Value Date NA 137 05/11/2013 K 3.9 05/11/2013 CL 104 05/11/2013 CO2 27 05/11/2013 ANIONGAP 10 05/11/2013 GLUF 151* 05/11/2013 BUN 17 05/11/2013 CREATININE 0.57 05/11/2013 BCR 29 05/11/2013 CA 8.3* 05/11/2013 PROT 7.1 05/11/2013 ALB 1.9* 05/11/2013 GLOB 5.1* 05/11/2013 BILITOT 0.5 05/11/2013 ALP 120* 05/11/2013 AST 79* 05/11/2013 ALT 78* 05/11/2013 EGFR >60 05/11/2013 BMP: Lab Results Component Value Date NA 137 05/11/2013 K 3.9 05/11/2013 CL 104 05/11/2013 CO2 27 05/11/2013 ANIONGAP 10 05/11/2013 GLUF 151* 05/11/2013 BUN 17 05/11/2013 CREATININE 0.57 05/11/2013 BCR 29 05/11/2013 CA 8.3* 05/11/2013 EGFR >60 05/11/2013 PT/INR: Lab Results Component Value Date INR 1.0 05/11/2013 PTT: Lab Results Component Value Date APTT 26 05/10/2013 [APTT PROBLEM LIST Principal Problem: *Acute respiratory failure with hypoxia Active Problems: Poorly controlled diabetes mellitus Morbid obesity with BMI of 45.0-49.9, adult Influenza A Abnormal LFTs (liver function tests) Acute respiratory distress syndrome (ARDS) possible Secondary bacterial pneumonia ASSESSMENT & PLAN Respiratory Failure I discussed with patient's daughter tracheostomy. We discussed the procedure, risks, benefi ts, alternatives. We discussed risks of not having tracheostomy. We discussed risks of trach eostomy including but not limited to bleeding, infection, pneumothorax, stroke, myocardial i nfarction, pulmonary embolus, mortality. The patient's RN was present. Patient's daughter understands and consents to procedure. Code Status: Full Code Primary Care Physician: MARY VALDEZ Thank you for allowing me to participate in the care of this patient. SHALONDA NOVOA MD 05/11/2013 documente d in this encounter Miscellaneous Notes Plan of Care - Conversion Transaction, Provider Unknown - 05/07/2013 9:42 AM PST Plan of Care by Ann Marie Garcia RN at 05/07/13941 Author: Ann Marie Garcia RN Service: (none) Author Type: Registered Nurse Filed: 05/07/13941 Date of Service: 05/07/13941 Status: Signed Site Foreman: Ann Marie Garcia RN (Registered Nurse) Problem: Pain Goal: Patient s pain/discomfort is manageable Assess and monitor patient s pain using appropriate pain scale. Collaborate with interdis ciplinary team and initiate plan and interventions as ordered. Re-assess patient s pain le cindy approximately 1-2 hours after pain management intervention. Premedicate as needed. Outcome: Progressing Fentanyl gtt infusing. Patient c/o no pain at this time. docume nted in this encounter Plan of Treatment +--------+---------+ + + + | Date | Type | Specialty | Care Team | Description | +--------+---------+ + + + | 03/22/ | Office | Neurology | Elaine Andrews, | | | 2019 | Visit | | [address] | | | | | | [place] [address] | | | | | | [phone] | | | | | | | | +--------+---------+ + + + documented as of this encounter Procedures + +--------+ + + + | Procedure Name | Priori | Date/Time | Associated Diagnosis | Comments | | | ty | | | | + +--------+ + + + | POC GLUCOSE | Routin | 05/14/2013 | | Results for this | | | e | 11:36 AM | | procedure are in the | | | | PST | | results section. | + +--------+ + + + | HEPATITIS PANEL, | Routin | 05/14/2013 | | Results for this | | CHRONIC | e | 9:04 AM | | procedure are in the | | | | PST | | results section. | + +--------+ + + + | POC GLUCOSE | Routin | 05/14/2013 | | Results for this | | | e | 6:50 AM | | procedure are in the | | | | PST | | results section. | + +--------+ + + + | XR CHEST 1 VIEW | Routin | 05/14/2013 | | Results for this | | | e | 5:31 AM | | procedure are in the | | | | PST | | results section. | + +--------+ + + + | POC GLUCOSE | Routin | 05/14/2013 | | Results for this | | | e | 12:10 AM | | procedure are in the | | | | PST | | results section. | + +--------+ + + + | POC GLUCOSE | Routin | 05/13/2013 | | Results for this | | | e | 5:54 PM | | procedure are in the | | | | PST | | results section. | + +--------+ + + + | POTASSIUM | Routin | 05/13/2013 | | Results for this | | | e | 4:12 PM | | procedure are in the | | | | PST | | results section. | + +--------+ + + + | POC GLUCOSE | Routin | 05/13/2013 | | Results for this | | | e | 12:26 PM | | procedure are in the | | | | PST | | results section. | + +--------+ + + + | XR CHEST 1 VIEW | Routin | 05/13/2013 | | Results for this | | | e | 5:34 AM | | procedure are in the | | | | PST | | results section. | + +--------+ + + + | EXTERNAL LAB: CBC | Routin | 05/13/2013 | | Results for this | | | e | 4:22 AM | | procedure are in the | | | | PST | | results section. | + +--------+ + + + | MAGNESIUM | Routin | 05/13/2013 | | Results for this | | | e | 4:22 AM | | procedure are in the | | | | PST | | results section. | + +--------+ + + + | COMPREHENSIVE | Routin | 05/13/2013 | | Results for this | | METABOLIC PANEL | e | 4:22 AM | | procedure are in the | | | | PST | | results section. | + +--------+ + + + | POC GLUCOSE | Routin | 05/12/2013 | | Results for this | | | e | 11:13 PM | | procedure are in the | | | | PST | | results section. | + +--------+ + + + | POC GLUCOSE | Routin | 05/12/2013 | | Results for this | | | e | 6:45 PM | | procedure are in the | | | | PST | | results section. | + +--------+ + + + | XR ABDOMEN AP | Routin | 05/12/2013 | | Results for this | | | e | 5:17 PM | | procedure are in the | | | | PST | | results section. | + +--------+ + + + | BASIC METABOLIC | Routin | 05/12/2013 | | Results for this | | PANEL | e | 1:09 PM | | procedure are in the | | | | PST | | results section. | + +--------+ + + + | POC GLUCOSE | Routin | 05/12/2013 | | Results for this | | | e | 12:44 PM | | procedure are in the | | | | PST | | results section. | + +--------+ + + + | XR CHEST 1 VIEW | Routin | 05/12/2013 | | Results for this | | | e | 5:47 AM | | procedure are in the | | | | PST | | results section. | + +--------+ + + + | POC GLUCOSE | Routin | 05/12/2013 | | Results for this | | | e | 5:28 AM | | procedure are in the | | | | PST | | results section. | + +--------+ + + + | EXTERNAL LAB: CBC | Routin | 05/12/2013 | | Results for this | | | e | 5:00 AM | | procedure are in the | | | | PST | | results section. | + +--------+ + + + | MAGNESIUM | Routin | 05/12/2013 | | Results for this | | | e | 5:00 AM | | procedure are in the | | | | PST | | results section. | + +--------+ + + + | COMPREHENSIVE | Routin | 05/12/2013 | | Results for this | | METABOLIC PANEL | e | 5:00 AM | | procedure are in the | | | | PST | | results section. | + +--------+ + + + | POC GLUCOSE | Routin | 05/12/2013 | | Results for this | | | e | 12:06 AM | | procedure are in the | | | | PST | | results section. | + +--------+ + + + | POTASSIUM | Routin | 05/11/2013 | | Results for this | | | e | 5:47 PM | | procedure are in the | | | | PST | | results section. | + +--------+ + + + | PHOSPHORUS | Routin | 05/11/2013 | | Results for this | | | e | 5:47 PM | | procedure are in the | | | | PST | | results section. | + +--------+ + + + | MAGNESIUM | Routin | 05/11/2013 | | Results for this | | | e | 5:47 PM | | procedure are in the | | | | PST | | results section. | + +--------+ + + + | POC GLUCOSE | Routin | 05/11/2013 | | Results for this | | | e | 5:45 PM | | procedure are in the | | | | PST | | results section. | + +--------+ + + + | POC GLUCOSE | Routin | 05/11/2013 | | Results for this | | | e | 1:02 PM | | procedure are in the | | | | PST | | results section. | + +--------+ + + + | XR CHEST 1 VIEW | Routin | 05/11/2013 | | Results for this | | | e | 12:58 PM | | procedure are in the | | | | PST | | results section. | + +--------+ + + + | POC GLUCOSE | Routin | 05/11/2013 | | Results for this | | | e | 6:44 AM | | procedure are in the | | | | PST | | results section. | + +--------+ + + + | XR CHEST 1 VIEW | Routin | 05/11/2013 | | Results for this | | | e | 5:53 AM | | procedure are in the | | | | PST | | results section. | + +--------+ + + + | CALCIUM, IONIZED | Routin | 05/11/2013 | | Results for this | | | e | 4:24 AM | | procedure are in the | | | | PST | | results section. | + +--------+ + + + | EXTERNAL LAB: CBC | Routin | 05/11/2013 | | Results for this | | | e | 4:19 AM | | procedure are in the | | | | PST | | results section. | + +--------+ + + + | PROTIME INR | Routin | 05/11/2013 | | Results for this | | | e | 4:19 AM | | procedure are in the | | | | PST | | results section. | + +--------+ + + + | PHOSPHORUS | Routin | 05/11/2013 | | Results for this | | | e | 4:19 AM | | procedure are in the | | | | PST | | results section. | + +--------+ + + + | MAGNESIUM | Routin | 05/11/2013 | | Results for this | | | e | 4:19 AM | | procedure are in the | | | | PST | | results section. | + +--------+ + + + | COMPREHENSIVE | Routin | 05/11/2013 | | Results for this | | METABOLIC PANEL | e | 4:19 AM | | procedure are in the | | | | PST | | results section. | + +--------+ + + + | POC GLUCOSE | Routin | 05/10/2013 | | Results for this | | | e | 11:56 PM | | procedure are in the | | | | PST | | results section. | + +--------+ + + + | PTT | Routin | 05/10/2013 | | Results for this | | | e | 6:11 PM | | procedure are in the | | | | PST | | results section. | + +--------+ + + + | PROTIME INR | Routin | 05/10/2013 | | Results for this | | | e | 6:11 PM | | procedure are in the | | | | PST | | results section. | + +--------+ + + + | POC GLUCOSE | Routin | 05/10/2013 | | Results for this | | | e | 5:55 PM | | procedure are in the | | | | PST | | results section. | + +--------+ + + + | POTASSIUM | Routin | 05/10/2013 | | Results for this | | | e | 5:22 PM | | procedure are in the | | | | PST | | results section. | + +--------+ + + + | PHOSPHORUS | Routin | 05/10/2013 | | Results for this | | | e | 5:22 PM | | procedure are in the | | | | PST | | results section. | + +--------+ + + + | MAGNESIUM | Routin | 05/10/2013 | | Results for this | | | e | 5:22 PM | | procedure are in the | | | | PST | | results section. | + +--------+ + + + | POC GLUCOSE | Routin | 05/10/2013 | | Results for this | | | e | 12:40 PM | | procedure are in the | | | | PST | | results section. | + +--------+ + + + | ECHO COMPLETE | Routin | 05/10/2013 | | Results for this | | | e | 12:10 PM | | procedure are in the | | | | PST | | results section. | + +--------+ + + + | POC GLUCOSE | Routin | 05/10/2013 | | Results for this | | | e | 6:20 AM | | procedure are in the | | | | PST | | results section. | + +--------+ + + + | XR CHEST 1 VIEW | Routin | 05/10/2013 | | Results for this | | | e | 5:22 AM | | procedure are in the | | | | PST | | results section. | + +--------+ + + + | EXTERNAL LAB: CBC | Routin | 05/10/2013 | | Results for this | | | e | 4:05 AM | | procedure are in the | | | | PST | | results section. | + +--------+ + + + | BASIC METABOLIC | Routin | 05/10/2013 | | Results for this | | PANEL | e | 4:05 AM | | procedure are in the | | | | PST | | results section. | + +--------+ + + + | POC GLUCOSE | Routin | 05/09/2013 | | Results for this | | | e | 11:59 PM | | procedure are in the | | | | PST | | results section. | + +--------+ + + + | POTASSIUM | Routin | 05/09/2013 | | Results for this | | | e | 6:16 PM | | procedure are in the | | | | PST | | results section. | + +--------+ + + + | PHOSPHORUS | Routin | 05/09/2013 | | Results for this | | | e | 6:16 PM | | procedure are in the | | | | PST | | results section. | + +--------+ + + + | MAGNESIUM | Routin | 05/09/2013 | | Results for this | | | e | 6:16 PM | | procedure are in the | | | | PST | | results section. | + +--------+ + + + | POC GLUCOSE | Routin | 05/09/2013 | | Results for this | | | e | 5:41 PM | | procedure are in the | | | | PST | | results section. | + +--------+ + + + | POC GLUCOSE | Routin | 05/09/2013 | | Results for this | | | e | 11:23 AM | | procedure are in the | | | | PST | | results section. | + +--------+ + + + | POTASSIUM | Routin | 05/09/2013 | | Results for this | | | e | 11:23 AM | | procedure are in the | | | | PST | | results section. | + +--------+ + + + | PHOSPHORUS | Routin | 05/09/2013 | | Results for this | | | e | 11:23 AM | | procedure are in the | | | | PST | | results section. | + +--------+ + + + | MAGNESIUM | Routin | 05/09/2013 | | Results for this | | | e | 11:23 AM | | procedure are in the | | | | PST | | results section. | + +--------+ + + + | POC GLUCOSE | Routin | 05/09/2013 | | Results for this | | | e | 5:33 AM | | procedure are in the | | | | PST | | results section. | + +--------+ + + + | XR CHEST 1 VIEW | Routin | 05/09/2013 | | Results for this | | | e | 5:21 AM | | procedure are in the | | | | PST | | results section. | + +--------+ + + + | EXTERNAL LAB: CBC | Routin | 05/09/2013 | | Results for this | | | e | 4:41 AM | | procedure are in the | | | | PST | | results section. | + +--------+ + + + | PHOSPHORUS | Routin | 05/09/2013 | | Results for this | | | e | 4:41 AM | | procedure are in the | | | | PST | | results section. | + +--------+ + + + | MAGNESIUM | Routin | 05/09/2013 | | Results for this | | | e | 4:41 AM | | procedure are in the | | | | PST | | results section. | + +--------+ + + + | BASIC METABOLIC | Routin | 05/09/2013 | | Results for this | | PANEL | e | 4:41 AM | | procedure are in the | | | | PST | | results section. | + +--------+ + + + | POC GLUCOSE | Routin | 05/08/2013 | | Results for this | | | e | 11:22 PM | | procedure are in the | | | | PST | | results section. | + +--------+ + + + | POC GLUCOSE | Routin | 05/08/2013 | | Results for this | | | e | 5:59 PM | | procedure are in the | | | | PST | | results section. | + +--------+ + + + | POTASSIUM | Routin | 05/08/2013 | | Results for this | | | e | 4:08 PM | | procedure are in the | | | | PST | | results section. | + +--------+ + + + | POC GLUCOSE | Routin | 05/08/2013 | | Results for this | | | e | 11:58 AM | | procedure are in the | | | | PST | | results section. | + +--------+ + + + | POTASSIUM | Routin | 05/08/2013 | | Results for this | | | e | 10:37 AM | | procedure are in the | | | | PST | | results section. | + +--------+ + + + | PHOSPHORUS | Routin | 05/08/2013 | | Results for this | | | e | 10:37 AM | | procedure are in the | | | | PST | | results section. | + +--------+ + + + | MAGNESIUM | Routin | 05/08/2013 | | Results for this | | | e | 10:37 AM | | procedure are in the | | | | PST | | results section. | + +--------+ + + + | EXTERNAL LAB: CBC | Routin | 05/08/2013 | | Results for this | | | e | 5:51 AM | | procedure are in the | | | | PST | | results section. | + +--------+ + + + | PHOSPHORUS | Routin | 05/08/2013 | | Results for this | | | e | 5:51 AM | | procedure are in the | | | | PST | | results section. | + +--------+ + + + | MAGNESIUM | Routin | 05/08/2013 | | Results for this | | | e | 5:51 AM | | procedure are in the | | | | PST | | results section. | + +--------+ + + + | BASIC METABOLIC | Routin | 05/08/2013 | | Results for this | | PANEL | e | 5:51 AM | | procedure are in the | | | | PST | | results section. | + +--------+ + + + | XR CHEST 1 VIEW | Routin | 05/08/2013 | | Results for this | | | e | 5:49 AM | | procedure are in the | | | | PST | | results section. | + +--------+ + + + | POC GLUCOSE | Routin | 05/08/2013 | | Results for this | | | e | 12:43 AM | | procedure are in the | | | | PST | | results section. | + +--------+ + + + | POC GLUCOSE | Routin | 05/07/2013 | | Results for this | | | e | 6:08 PM | | procedure are in the | | | | PST | | results section. | + +--------+ + + + | POC GLUCOSE | Routin | 05/07/2013 | | Results for this | | | e | 11:52 AM | | procedure are in the | | | | PST | | results section. | + +--------+ + + + | POTASSIUM | Routin | 05/07/2013 | | Results for this | | | e | 10:35 AM | | procedure are in the | | | | PST | | results section. | + +--------+ + + + | HISTORICAL | Timed | 05/07/2013 | | Results for this | | MICROBIOLOGY RESULT | | 10:18 AM | | procedure are in the | | | | PST | | results section. | + +--------+ + + + | POC GLUCOSE | Routin | 05/07/2013 | | Results for this | | | e | 6:04 AM | | procedure are in the | | | | PST | | results section. | + +--------+ + + + | XR CHEST 1 VIEW | Routin | 05/07/2013 | | Results for this | | | e | 5:43 AM | | procedure are in the | | | | PST | | results section. | + +--------+ + + + | EXTERNAL LAB: CBC | Routin | 05/07/2013 | | Results for this | | | e | 3:55 AM | | procedure are in the | | | | PST | | results section. | + +--------+ + + + | PHOSPHORUS | Routin | 05/07/2013 | | Results for this | | | e | 3:55 AM | | procedure are in the | | | | PST | | results section. | + +--------+ + + + | MAGNESIUM | Routin | 05/07/2013 | | Results for this | | | e | 3:55 AM | | procedure are in the | | | | PST | | results section. | + +--------+ + + + | BASIC METABOLIC | Routin | 05/07/2013 | | Results for this | | PANEL | e | 3:55 AM | | procedure are in the | | | | PST | | results section. | + +--------+ + + + | POC GLUCOSE | Routin | 05/07/2013 | | Results for this | | | e | 12:05 AM | | procedure are in the | | | | PST | | results section. | + +--------+ + + + | POC GLUCOSE | Routin | 05/06/2013 | | Results for this | | | e | 8:53 PM | | procedure are in the | | | | PST | | results section. | + +--------+ + + + | POC GLUCOSE | Routin | 05/06/2013 | | Results for this | | | e | 6:47 PM | | procedure are in the | | | | PST | | results section. | + +--------+ + + + | POC GLUCOSE | Routin | 05/06/2013 | | Results for this | | | e | 4:40 PM | | procedure are in the | | | | PST | | results section. | + +--------+ + + + | POC GLUCOSE | Routin | 05/06/2013 | | Results for this | | | e | 2:34 PM | | procedure are in the | | | | PST | | results section. | + +--------+ + + + | POC GLUCOSE | Routin | 05/06/2013 | | Results for this | | | e | 12:22 PM | | procedure are in the | | | | PST | | results section. | + +--------+ + + + | POTASSIUM | Routin | 05/06/2013 | | Results for this | | | e | 10:51 AM | | procedure are in the | | | | PST | | results section. | + +--------+ + + + | MAGNESIUM | Routin | 05/06/2013 | | Results for this | | | e | 10:51 AM | | procedure are in the | | | | PST | | results section. | + +--------+ + + + | POC GLUCOSE | Routin | 05/06/2013 | | Results for this | | | e | 10:11 AM | | procedure are in the | | | | PST | | results section. | + +--------+ + + + | POC GLUCOSE | Routin | 05/06/2013 | | Results for this | | | e | 7:54 AM | | procedure are in the | | | | PST | | results section. | + +--------+ + + + | POC GLUCOSE | Routin | 05/06/2013 | | Results for this | | | e | 6:49 AM | | procedure are in the | | | | PST | | results section. | + +--------+ + + + | XR CHEST 1 VIEW | Routin | 05/06/2013 | | Results for this | | | e | 5:42 AM | | procedure are in the | | | | PST | | results section. | + +--------+ + + + | POC GLUCOSE | Routin | 05/06/2013 | | Results for this | | | e | 5:36 AM | | procedure are in the | | | | PST | | results section. | + +--------+ + + + | EXTERNAL LAB: CBC | Routin | 05/06/2013 | | Results for this | | | e | 4:38 AM | | procedure are in the | | | | PST | | results section. | + +--------+ + + + | PHOSPHORUS | Routin | 05/06/2013 | | Results for this | | | e | 4:38 AM | | procedure are in the | | | | PST | | results section. | + +--------+ + + + | MAGNESIUM | Routin | 05/06/2013 | | Results for this | | | e | 4:38 AM | | procedure are in the | | | | PST | | results section. | + +--------+ + + + | HEMOGLOBIN A1C | Routin | 05/06/2013 | | Results for this | | | e | 4:38 AM | | procedure are in the | | | | PST | | results section. | + +--------+ + + + | CK TOTAL | Routin | 05/06/2013 | | Results for this | | | e | 4:38 AM | | procedure are in the | | | | PST | | results section. | + +--------+ + + + | BASIC METABOLIC | Routin | 05/06/2013 | | Results for this | | PANEL | e | 4:38 AM | | procedure are in the | | | | PST | | results section. | + +--------+ + + + | POC GLUCOSE | Routin | 05/06/2013 | | Results for this | | | e | 4:35 AM | | procedure are in the | | | | PST | | results section. | + +--------+ + + + | POC GLUCOSE | Routin | 05/06/2013 | | Results for this | | | e | 2:50 AM | | procedure are in the | | | | PST | | results section. | + +--------+ + + + | POC GLUCOSE | Routin | 05/06/2013 | | Results for this | | | e | 1:04 AM | | procedure are in the | | | | PST | | results section. | + +--------+ + + + | POC GLUCOSE | Routin | 05/05/2013 | | Results for this | | | e | 11:00 PM | | procedure are in the | | | | PST | | results section. | + +--------+ + + + | POC GLUCOSE | Routin | 05/05/2013 | | Results for this | | | e | 8:33 PM | | procedure are in the | | | | PST | | results section. | + +--------+ + + + | POTASSIUM | Routin | 05/05/2013 | | Results for this | | | e | 7:35 PM | | procedure are in the | | | | PST | | results section. | + +--------+ + + + | PHOSPHORUS | Routin | 05/05/2013 | | Results for this | | | e | 7:35 PM | | procedure are in the | | | | PST | | results section. | + +--------+ + + + | MAGNESIUM | Routin | 05/05/2013 | | Results for this | | | e | 7:35 PM | | procedure are in the | | | | PST | | results section. | + +--------+ + + + | CULTURE, URINE | JUAN | 05/05/2013 | | Results for this | | | | 7:26 PM | | procedure are in the | | | | PST | | results section. | + +--------+ + + + | URINALYSIS WITH | Routin | 05/05/2013 | | Results for this | | MICROSCOPIC IF | e | 7:25 PM | | procedure are in the | | INDICATED | | PST | | results section. | + +--------+ + + + | URINALYSIS, | Routin | 05/05/2013 | | Results for this | | MICROSCOPIC ONLY | e | 7:25 PM | | procedure are in the | | | | PST | | results section. | + +--------+ + + + | POC GLUCOSE | Routin | 05/05/2013 | | Results for this | | | e | 5:45 PM | | procedure are in the | | | | PST | | results section. | + +--------+ + + + | POC GLUCOSE | Routin | 05/05/2013 | | Results for this | | | e | 4:42 PM | | procedure are in the | | | | PST | | results section. | + +--------+ + + + | CULTURE, BLOOD, 2ND | Timed | 05/05/2013 | | Results for this | | SPECIMEN (NON-ORD) | | 3:35 PM | | procedure are in the | | | | PST | | results section. | + +--------+ + + + | POC GLUCOSE | Routin | 05/05/2013 | | Results for this | | | e | 3:34 PM | | procedure are in the | | | | PST | | results section. | + +--------+ + + + | XR CHEST 1 VIEW | Routin | 05/05/2013 | | Results for this | | | e | 2:51 PM | | procedure are in the | | | | PST | | results section. | + +--------+ + + + | EXTERNAL LAB: CBC | Routin | 05/05/2013 | | Results for this | | | e | 1:20 PM | | procedure are in the | | | | PST | | results section. | + +--------+ + + + | CULTURE, BLOOD | Timed | 05/05/2013 | | Results for this | | | | 1:20 PM | | procedure are in the | | | | PST | | results section. | + +--------+ + + + | PHOSPHORUS | Routin | 05/05/2013 | | Results for this | | | e | 1:20 PM | | procedure are in the | | | | PST | | results section. | + +--------+ + + + | MAGNESIUM | Routin | 05/05/2013 | | Results for this | | | e | 1:20 PM | | procedure are in the | | | | PST | | results section. | + +--------+ + + + | COMPREHENSIVE | Routin | 05/05/2013 | | Results for this | | METABOLIC PANEL | e | 1:20 PM | | procedure are in the | | | | PST | | results section. | + +--------+ + + + | POC GLUCOSE | Routin | 05/05/2013 | | Results for this | | | e | 1:19 PM | | procedure are in the | | | | PST | | results section. | + +--------+ + + + | MRSA NAAT | Routin | 05/05/2013 | | Results for this | | | e | 12:57 PM | | procedure are in the | | | | PST | | results section. | + +--------+ + + + | GRAM STAIN, REFLEX | Timed | 05/05/2013 | | Results for this | | SPUTUM CULTURE | | 12:45 PM | | procedure are in the | | | | PST | | results section. | + +--------+ + + + documented in this encounter Results POC Glucose (05/14/2013 11:36 AM PST) + + + + + + | Component | Value | Ref Range | Performed | Pathologist | | | | | At | Signature | + + + + + + | Glucose, | 116 (H)Comment: Testing | 65 - 99 mg/dL | EXTERNAL | | | Fingerstick | performed at [facility];[address] | | LAB | | | | [address];[place] | | | | | | [address] | | | | + + + + + + + + | Specimen | + + | | + + + +---------+ + + | Performing | Address | City/State/Zipcode | Phone Number | | Organization | | | | + +---------+ + + | EXTERNAL LAB | | | | + +---------+ + + Hepatitis Panel, Chronic (05/14/2013 9:04 AM PST) + + + + + + | Component | Value | Ref Range | Performed | Pathologist | | | | | At | Signature | + + + + + + | Hep A Total | REACTIVE (A)Comment: | | EXTERNAL | | | Ab Interp | Testing performed at | | LAB | | | | [facility], [address] | | | | | | [place] | | | | | | [address] | | | | + + + + + + | HEP B | NON REACTIVEComment: | | EXTERNAL | | | SURFACE | Testing performed at | | LAB | | | ANTIBODY | [facility], [address] [facility] | | | | | | [place] | | | | | | [address] | | | | + + + + + + | Hepatitis B | NON REACTIVEComment: | | EXTERNAL | | | Core Ab | Testing performed at | | LAB | | | Total | [facility], [address] [facility] | | | | | | [place] | | | | | | [address] | | | | + + + + + + | HEP B | 2.34 (H)Comment: <1.00 | IV | EXTERNAL | | | SURFACE | Non | | LAB | | | ANTIBODY | Immune1.00 OR MORE | | | | | | Indicates vaccine | | | | | | response or response to | | | | | | HBV infection. An Index | | | | | | Value (IV) of 1.00 is | | | | | | equivalent to 10 mIU/mL. | | | | | | Samples with an IV of | | | | | | 1.00 or greater are | | | | | | considered reactive | | | | | | (protected) in | | | | | | accordance with CDC | | | | | | Guidelines.Testing | | | | | | performed at [facility], [address] | | | | | | [facility] [address], | | | | | | [place] [address] | | | | + + + + + + | HCV Ab | NON REACTIVEComment: | | EXTERNAL | | | | Testing performed at | | LAB | | | | [facility], [address] [facility] | | | | | | [place] | | | | | | [address] | | | | + + + + + + | Hepatitis | Current or past HAV | | EXTERNAL | | | Interpretat | infection. Past HBV | | LAB | | | ion | infection or | | | | | | vaccination. No | | | | | | serologic evidence of | | | | | | HCV infection.Comment: | | | | | | Testing performed at | | | | | | [facility], [address] [facility] | | | | | | [place] | | | | | | [address] | | | | + + + + + + + + | Specimen | + + | | + + + +---------+ + + | Performing | Address | City/State/Zipcode | Phone Number | | Organization | | | | + +---------+ + + | EXTERNAL LAB | | | | + +---------+ + + POC Glucose (05/14/2013 6:50 AM PST) + + + + + + | Component | Value | Ref Range | Performed | Pathologist | | | | | At | Signature | + + + + + + | Glucose, | 122 (H)Comment: Testing | 65 - 99 mg/dL | EXTERNAL | | | Fingerstick | performed at [facility];[address] | | LAB | | | | [address];[place] | | | | | | [address] | | | | + + + + + + + + | Specimen | + + | | + + + +---------+ + + | Performing | Address | City/State/Zipcode | Phone Number | | Organization | | | | + +---------+ + + | EXTERNAL LAB | | | | + +---------+ + + XR Chest 1 Vw (05/14/2013 5:31 AM PST) + + | Specimen | + + | | + + + + + | Impressions | Performed At | + + + | 1. Persistent bibasilar atelectasis/pneumonia/pleural effusions, | | | unchanged. 2. Mild interstitial pulmonary edema, unchanged. 3. | | | Satisfactory position of life-support catheters. Electronically | | | signed by Geronimo Lovett MD on 05/14/2013 8:27 AM | | + + + + + + | Narrative | Performed At | + + + | [facility] XR CHEST 1 VIEW 05/14/2013 5:31 AM History: 47 | | | years. Female. Followup for respiratory failure. Influenza A, | | | complicated by ARDS. Morbid obesity. Technique: AP portable | | | upright technique was performed at 0502 hours. Comparison: 05/13/13 | | | Findings: The inspiratory effort is moderate. Dense consolidation | | | is visualized at both lung bases, obscuring the hemidiaphragms, | | | suggesting atelectasis, pneumonia, and/or bilateral small pleural | | | effusions, relatively unchanged. The cardiac borders are partially | | | obscured. Peribronchial infiltrates in the hilar areas suggest | | | mild interstitial pulmonary edema. The pulmonary brandie and mediastinal | | | contours are normal. A tracheostomy device is in good position, | | | unchanged. A nasogastric feeding tube is visualized in the stomach or | | | beyond. A RIGHT brachial central venous PICC line is present with the | | | tip at the junction of The superior vena cava and right atrium, in | | | good position. | | + + + + + | Procedure Note | + + | Fox, Rad Conversion - 11/20/2018 1:53 PM PDT [facility]IL[facility] Leyva VIKYXR CHEST 1 VIEW05/14/2013 | | 5:31 AM History: 47 years. Female. Followup for respiratory failure. Influenza A, | | complicated by ARDS. Morbid obesity. Technique: AP portable upright technique was | | performed at 0502 hours.Comparison: 05/13/13 Findings: The inspiratory effort is | | moderate. Dense consolidation is visualized at both lung bases, obscuring the | | hemidiaphragms, suggesting atelectasis, pneumonia, and/or bilateral small pleural | | effusions, relatively unchanged. The cardiac borders are partially obscured. | | Peribronchial infiltrates in the hilar areas suggest mild interstitial pulmonary edema. | | The pulmonary brandie and mediastinal contours are normal. A tracheostomy device is in good | | position, unchanged. A nasogastric feeding tube is visualized in the stomach or beyond. | | A RIGHT brachial central venous PICC line is present with the tip at the junction of | | The superior vena cava and right atrium, in good position. IMPRESSION: 1. Persistent | | bibasilar atelectasis/pneumonia/pleural effusions, unchanged.2. Mild interstitial | | pulmonary edema, unchanged.3. Satisfactory position of life-support catheters. | | | |A tracheostomy device is in good position, unchanged. A nasogastric feeding tube is visuali zed in the stomach or beyond. A RIGHT brachial central venous PICC line is present with the tip at the junction of The | |superior vena cava and right atrium, in good | | position. | | | |IMPRESSION: | |1. Persistent bibasilar atelectasis/pneumonia/pleural effusions, unchanged. | |2. Mild interstitial pulmonary edema, unchanged. | |3. Satisfactory position of life-support catheters. | | | | | + + POC Glucose (05/14/2013 12:10 AM PST) + + + + + + | Component | Value | Ref Range | Performed | Pathologist | | | | | At | Signature | + + + + + + | Glucose, | 93Comment: Testing | 65 - 99 mg/dL | EXTERNAL | | | Fingerstick | performed at [facility];[address] | | LAB | | | | [address];[place] | | | | | | [address] | | | | + + + + + + + + | Specimen | + + | | + + + +---------+ + + | Performing | Address | City/State/Zipcode | Phone Number | | Organization | | | | + +---------+ + + | EXTERNAL LAB | | | | + +---------+ + + POC Glucose (05/13/2013 5:54 PM PST) + + + + + + | Component | Value | Ref Range | Performed | Pathologist | | | | | At | Signature | + + + + + + | Glucose, | 120 (H)Comment: Testing | 65 - 99 mg/dL | EXTERNAL | | | Fingerstick | performed at [facility];[address] | | LAB | | | | [address];[place] | | | | | | [address] | | | | + + + + + + + + | Specimen | + + | | + + + +---------+ + + | Performing | Address | City/State/Zipcode | Phone Number | | Organization | | | | + +---------+ + + | EXTERNAL LAB | | | | + +---------+ + + Potassium (05/13/2013 4:12 PM PST) + + + + + + | Component | Value | Ref Range | Performed | Pathologist | | | | | At | Signature | + + + + + + | K | 4.2Comment: Testing | 3.5 - 4.9 | EXTERNAL | | | | performed at [facility];[address] | mmol/L | LAB | | | | [address] [facility];[place], [place] | | | | | | [address] | | | | + + + + + + + + | Specimen | + + | Blood specimen | | (specimen) | + + + +---------+ + + | Performing | Address | City/State/Zipcode | Phone Number | | Organization | | | | + +---------+ + + | EXTERNAL LAB | | | | + +---------+ + + POC Glucose (05/13/2013 12:26 PM PST) + + + + + + | Component | Value | Ref Range | Performed | Pathologist | | | | | At | Signature | + + + + + + | Glucose, | 109 (H)Comment: Testing | 65 - 99 mg/dL | EXTERNAL | | | Fingerstick | performed at [facility] | | LAB | | | | [address];[place] | | | | | | [address] | | | | + + + + + + + + | Specimen | + + | | + + + +---------+ + + | Performing | Address | City/State/Zipcode | Phone Number | | Organization | | | | + +---------+ + + | EXTERNAL LAB | | | | + +---------+ + + XR Chest 1 Vw (05/13/2013 5:34 AM [facility]) + + | Specimen | + + | | + + + + + | Impressions | Performed At | + + + | 1. Mild improvement of bilateral lower lobe pulmonary edema and/or | | | pneumonia and/or pleural effusion. 2. Persistent mild | | | cardiomegaly. 3. Satisfactory position of life-support catheters. | | | | | + + + + + + | Narrative | Performed At | + + + | GILMA SALMON XR CHEST 1 VIEW 05/13/2013 5:34 AM History: 47 | | | years. Female. Followup for acute respiratory failure. Recent | | | pneumomediastinum. Technique: AP portable upright technique was | | | performed at 0506 hours. Comparison: 05/12/13 Findings: | | | Previous dense alveolar infiltrates in the lower lung robb are | | | mildly improved. There is better visualization of the heart borders. | | | The hemidiaphragms remain obscured. The findings are most consistent | | | with moderate alveolar pulmonary edema. Bilateral lower lobe | | | pneumonia cannot be excluded. Minimal pleural effusions may or may not | | | be present. Mild cardiomegaly is still present. Upper lobe | | | pulmonary vasculature is distended. No residual pneumomediastinum | | | visualized. A tracheostomy device is in good position, unchanged. | | | A nasogastric feeding tube is noted through the stomach. A RIGHT | | | brachial central venous PICC line is present with the tip at the | | | junction of The superior vena cava and right atrium, in good position. | | | | | + + + + + | Procedure Note | + + | Fox, Rad Conversion - 11/20/2018 1:53 PM PDT [facility] MEDEROS CHEST 1 VIEW05/13/2013 | | 5:34 AM History: 47 years. Female. Followup for acute respiratory failure. Recent | | pneumomediastinum. Technique: AP portable upright technique was performed at 0506 | | hours.Comparison: 05/12/13 Findings: Previous dense alveolar infiltrates in the lower | | lung robb are mildly improved. There is better visualization of the heart borders. The | | hemidiaphragms remain obscured. The findings are most consistent with moderate alveolar | | pulmonary edema. Bilateral lower lobe pneumonia cannot be excluded. Minimal pleural | | effusions may or may not be present. Mild cardiomegaly is still present. Upper lobe | | pulmonary vasculature is distended. No residual pneumomediastinum visualized. A | | tracheostomy device is in good position, unchanged. A nasogastric feeding tube is noted | | through the stomach. A RIGHT brachial central venous PICC line is present with the tip | | at the junction of The superior vena cava and right atrium, in good position. | | IMPRESSION: 1. Mild improvement of bilateral lower lobe pulmonary edema and/or | | pneumonia and/or pleural effusion.2. Persistent mild cardiomegaly.3. Satisfactory | | position of life-support catheters. Electronically signed by Geronimo Lovett MD on | | 05/13/2013 7:33 AM | | | |A tracheostomy device is in good position, unchanged. A nasogastric feeding tube is noted t hrough the stomach. A RIGHT brachial central venous PICC line is present with the tip at the junction of The superior vena | |cava and right atrium, in good position. | | | |IMPRESSION: | |1. Mild improvement of bilateral lower lobe pulmonary edema and/or pneumonia and/or pleura l effusion. | |2. Persistent mild cardiomegaly. | |3. Satisfactory position of life-support catheters. | | | | | + + External Lab: CBC (05/13/2013 4:22 AM PST) + + + + + + | Component | Value | Ref Range | Performed | Pathologist | | | | | At | Signature | + + + + + + | WBC | 7.3Comment: Testing | 3.8 - 11.0 K/uL | EXTERNAL | | | | performed at [facility];[address] | | LAB | | | | [address];[place] | | | | | | [address] | | | | + + + + + + | Non- | 3.77Comment: Testing | 3.70 - 5.10 | EXTERNAL | | | Red Blood | performed at [facility];[address] | M/uL | LAB | | | Cells | [address];[place] | | | | | Counted | [id number] | | | | + + + + + + | Hemoglobin | 10.4 (L)Comment: Testing | 11.3 - 15.5 | EXTERNAL | | | | performed at [facility];[address] | g/dL | LAB | | | | [address];[place] | | | | | | [address] | | | | + + + + + + | Hematocrit, | 30.3 (L)Comment: Testing | 34.0 - 46.0 % | EXTERNAL | | | POC | performed at [facility];[address] | | LAB | | | | [address];[place] | | | | | | [address] | | | | + + + + + + | MCV | 80.4Comment: Testing | 80.0 - 100.0 fl | EXTERNAL | | | | performed at [facility];[address] | | LAB | | | | [address];[place] | | | | | | [address] | | | | + + + + + + | MCH | 27.6Comment: Testing | 27.0 - 34.0 pg | EXTERNAL | | | | performed at [facility];[address] | | LAB | | | | [address];[place] | | | | | | [address] | | | | + + + + + + | MCHC | 34.3Comment: Testing | 32.0 - 35.5 | EXTERNAL | | | | performed at [facility];[address] | g/dL | LAB | | | | [address];[place] | | | | | | [address] | | | | + + + + + + | RDW-CV | 40.3Comment: Testing | 37 - 53 fl | EXTERNAL | | | | performed at [facility];[address] | | LAB | | | | [address];[place] | | | | | | [address] | | | | + + + + + + | Platelet | 544 (H)Comment: Testing | 150 - 400 K/uL | EXTERNAL | | | Count | performed at [facility];[address] | | LAB | | | Plasma | [address];[place] | | | | | | [address] | | | | + + + + + + | MPV | 6.6Comment: Testing | fl | EXTERNAL | | | | performed at [facility];[address] | | LAB | | | | [address];[place] | | | | | | [address] | | | | + + + + + + | Differentia | AUTOMATEDComment: | | EXTERNAL | | | l Type | Testing performed at | | LAB | | | | [facility];[address];[place] [address] | | | | + + + + + + | % Segmented | 61.2 | % | EXTERNAL | | | | | | LAB | | | Neutrophils | | | | | + + + + + + | % | 25.5 | % | EXTERNAL | | | Lymphocytes | | | LAB | | + + + + + + | % Monocytes | 10.5 | % | EXTERNAL | | | | | | LAB | | + + + + + + | % | 2.3 | % | EXTERNAL | | | Eosinophils | | | LAB | | + + + + + + | % Basophils | 0.5 | % | EXTERNAL | | | | | | LAB | | + + + + + + | Absolute | 4.4 | 1.9 - 7.4 K/uL | EXTERNAL | | | Segmented | | | LAB | | | Neutrophils | | | | | + + + + + + | Absolute | 1.9 | 1.0 - 3.9 K/uL | EXTERNAL | | | Lymphocytes | | | LAB | | + + + + + + | Absolute | 0.8 | 0 - 0.8 K/uL | EXTERNAL | | | Monocytes | | | LAB | | + + + + + + | Absolute | 0.2 | 0 - 0.5 K/uL | EXTERNAL | | | Eosinophils | | | LAB | | + + + + + + | Absolute | 0.0 | 0 - 0.1 K/uL | EXTERNAL | | | Basophils | | | LAB | | + + + + + + + + | Specimen | + + | Blood specimen | | (specimen) | + + + +---------+ + + | Performing | Address | City/State/Zipcode | Phone Number | | Organization | | | | + +---------+ + + | EXTERNAL LAB | | | | + +---------+ + + Magnesium (05/13/2013 4:22 AM PST) + + + + + + | Component | Value | Ref Range | Performed | Pathologist | | | | | At | Signature | + + + + + + | Magnesium | 1.8Comment: Testing | 1.7 - 2.4 mg/dL | EXTERNAL | | | | performed at [facility];[address] | | LAB | | | | [address];[place] | | | | | | [address] | | | | + + + + + + + + | Specimen | + + | Blood specimen | | (specimen) | + + + +---------+ + + | Performing | Address | City/State/Zipcode | Phone Number | | Organization | | | | + +---------+ + + | EXTERNAL LAB | | | | + +---------+ + + Comprehensive Metabolic Panel (05/13/2013 4:22 AM PST) + + + + + + | Component | Value | Ref Range | Performed | Pathologist | | | | | At | Signature | + + + + + + | Na | 138Comment: Testing | 135 - 143 | EXTERNAL | | | | performed at [facility];[address] | mmol/L | LAB | | | | [address];[place] | | | | | | [address] | | | | + + + + + + | K | 3.5Comment: Testing | 3.5 - 4.9 | EXTERNAL | | | | performed at [facility];[address] | mmol/L | LAB | | | | [address];[place] | | | | | | [address] | | | | + + + + + + | Cl | 102Comment: Testing | 99 - 109 mmol/L | EXTERNAL | | | | performed at [facility];[address] | | LAB | | | | [address];[place] | | | | | | [address] | | | | + + + + + + | CO2 | 29Comment: Testing | 23 - 32 mmol/L | EXTERNAL | | | | performed at [facility];[address] | | LAB | | | | [address];[place] | | | | | | [address] | | | | + + + + + + | Anion Gap | 10Comment: Testing | 5 - 20 mmol/L | EXTERNAL | | | | performed at [facility];[address] | | LAB | | | | [address];[place] | | | | | | [address] | | | | + + + + + + | Glucose, | 106 (H)Comment: Testing | 65 - 99 mg/dL | EXTERNAL | | | Fasting | performed at [facility];[address] | | LAB | | | | [address];[place] | | | | | | [address] | | | | + + + + + + | BUN | 16Comment: Testing | 8 - 25 mg/dL | EXTERNAL | | | | performed at [facility];[address] | | LAB | | | | [address];[place] | | | | | | [address] | | | | + + + + + + | Creatinine | 0.55Comment: Testing | 0.50 - 1.00 | EXTERNAL | | | | performed at [facility];[address] | mg/dL | LAB | | | | [address];[place] | | | | | | [address] | | | | + + + + + + | BUN/Creatin | 30Comment: Testing | | EXTERNAL | | | ine Ratio | performed at [facility];[address] | | LAB | | | | [address];[place] | | | | | | [address] | | | | + + + + + + | Calcium | 8.5Comment: Testing | 8.5 - 10.2 | EXTERNAL | | | | performed at [facility];[address] | mg/dL | LAB | | | | [address];[place] | | | | | | [address] | | | | + + + + + + | Protein, | 7.5Comment: Testing | 6.3 - 8.2 g/dL | EXTERNAL | | | Total | performed at [facility];[address] | | LAB | | | | [address];[place] | | | | | | [address] | | | | + + + + + + | Albumin | 2.2 (L)Comment: Testing | 3.6 - 5.0 g/dL | EXTERNAL | | | | performed at [facility];[address] | | LAB | | | | [address];[place] | | | | | | [address] | | | | + + + + + + | Globulin | 5.3 (H)Comment: Testing | 1.3 - 4.9 g/dL | EXTERNAL | | | | performed at [facility];[address] | | LAB | | | | [address];[place] | | | | | | [address] | | | | + + + + + + | A/G Ratio | 0.4 (L)Comment: Testing | 1.0 - 2.4 | EXTERNAL | | | | performed at [facility];[address] | | LAB | | | | [address];[place] | | | | | | [address] | | | | + + + + + + | Bilirubin | 0.5Comment: Testing | 0.1 - 1.5 mg/dL | EXTERNAL | | | Total | performed at [facility];[address] | | LAB | | | | [address];[place] | | | | | | [address] | | | | + + + + + + | ALP, | 118 (H)Comment: Testing | 35 - 115 U/L | EXTERNAL | | | External | performed at [facility];[address] | | LAB | | | | [address];[place] | | | | | | [address] | | | | + + + + + + | AST | 69 (H)Comment: Testing | 10 - 45 U/L | EXTERNAL | | | | performed at [facility];[address] | | LAB | | | | [address];[place] | | | | | | [address] | | | | + + + + + + | ALT | 81 (H)Comment: Testing | 10 - 65 U/L | EXTERNAL | | | | performed at [facility];[address] | | LAB | | | | [address];[place] | | | | | | [address] | | | | + + + + + + | Estimated | >60Comment: GFR <60: | mL/min/1.73m2 | EXTERNAL | | | GFR | CHRONIC KIDNEY DISEASE, | | LAB | | | | IF FOUND OVER A 3 MONTH | | | | | | PERIOD.GFR <15: KIDNEY | | | | | | FAILURE.FOR | | | | | | AMERICANS, MULTIPLY THE | | | | | | CALCULATED GFR BY | | | | | | 1.210.Testing performed | | | | | | at [facility];[address];[place] [address] | | | | + + + + + + + + | Specimen | + + | Blood specimen | | (specimen) | + + + +---------+ + + | Performing | Address | City/State/Zipcode | Phone Number | | Organization | | | | + +---------+ + + | EXTERNAL LAB | | | | + +---------+ + + POC Glucose (05/12/2013 11:13 PM PST) + + + + + + | Component | Value | Ref Range | Performed | Pathologist | | | | | At | Signature | + + + + + + | Glucose, | 117 (H)Comment: Testing | 65 - 99 mg/dL | EXTERNAL | | | Fingerstick | performed at [facility];[address] | | LAB | | | | [address];[place] | | | | | | [address] | | | | + + + + + + + + | Specimen | + + | | + + + +---------+ + + | Performing | Address | City/State/Zipcode | Phone Number | | Organization | | | | + +---------+ + + | EXTERNAL LAB | | | | + +---------+ + + POC Glucose (05/12/2013 6:45 PM PST) + + + + + + | Component | Value | Ref Range | Performed | Pathologist | | | | | At | Signature | + + + + + + | Glucose, | 146 (H)Comment: Testing | 65 - 99 mg/dL | EXTERNAL | | | Fingerstick | performed at [id number] | [address] | | | [address];[place], [place] | | | | | | [id number] | | | | + + + + + + + + | Specimen | + + | | + + + +---------+ + + | Performing | Address | City/State/Zipcode | Phone Number | | Organization | | | | + +---------+ + + | EXTERNAL LAB | | | | + +---------+ + + XR Abdomen AP (05/12/2013 5:17 PM PST) + + | Specimen | + + | | + + + + + | Impressions | Performed At | + + + | 1. Feeding tube tip in the antrum of the stomach. | | | | | + + + + + + | Narrative | Performed At | + + + | HISTORY: Feeding tube placement. COMPARISON: Chest x-ray same | | | day. TECHNIQUE: A single supine film of the abdomen was obtained. | | | FINDINGS: Feeding tube tip in the antrum of the stomach. Partial | | | distention of the stomach. Unremarkable gas pattern, although the | | | entire abdomen is not included. Technical limitation due to patient | | | body habitus. Clips right upper quadrant of the abdomen. | | + + + + + | Procedure Note | + + | Fox, Rad Conversion - 11/20/2018 1:53 PM PDT HISTORY:Feeding tube placement. | | COMPARISON:Chest x-ray same day. TECHNIQUE:A single supine film of the abdomen was | | obtained. FINDINGS:Feeding tube tip in the antrum of the stomach. Partial distention of | | the stomach. Unremarkable gas pattern, although the entire abdomen is not included. | | Technical limitation due to patient body habitus. Clips right upper quadrant of the | | abdomen. IMPRESSION: 1. Feeding tube tip in the antrum of the stomach. Electronically | | signed by Gorge Gonzales MD on 05/12/2013 5:32 PM | |A single supine film of the abdomen was obtained. | | | |FINDINGS: | |Feeding tube tip in the antrum of the stomach. Partial distention of the stomach. Unremarka ble gas pattern, although the entire abdomen is not included. Technical limitation due to pa tient body habitus. Clips right upper quadrant of the abdomen. | | | |IMPRESSION: | |1. Feeding tube tip in the antrum of the stomach. | | | | | + + Basic Metabolic Panel (05/12/2013 1:09 PM PST) + + + + + + | Component | Value | Ref Range | Performed | Pathologist | | | | | At | Signature | + + + + + + | Na | 137Comment: Testing | 135 - 143 | EXTERNAL | | | | performed at [facility];888 | mmol/L | LAB | | | | [address];[place] | | | | | | [address] | | | | + + + + + + | K | 4.0Comment: Testing | 3.5 - 4.9 | EXTERNAL | | | | performed at [facility];888 | mmol/L | LAB | | | | [address];[place] | | | | | | [address] | | | | + + + + + + | Cl | 100Comment: Testing | 99 - 109 mmol/L | EXTERNAL | | | | performed at [facility];[address] | | LAB | | | | [address];[place] | | | | | | [address] | | | | + + + + + + | CO2 | 31Comment: Testing | 23 - 32 mmol/L | EXTERNAL | | | | performed at [facility];[address] | | LAB | | | | [address];[place] | | | | | | [address] | | | | + + + + + + | Anion Gap | 9Comment: Testing | 5 - 20 mmol/L | EXTERNAL | | | | performed at [facility];[address] | | LAB | | | | [address];[place] | | | | | | [address] | | | | + + + + + + | Glucose, | 179 (H)Comment: Testing | 65 - 99 mg/dL | EXTERNAL | | | Fasting | performed at [facility];[address] | | LAB | | | | [address];[place] | | | | | | [address] | | | | + + + + + + | BUN | 20Comment: Testing | 8 - 25 mg/dL | EXTERNAL | | | | performed at [facility];[address] | | LAB | | | | [address];[place] | | | | | | [address] | | | | + + + + + + | Creatinine | 0.67Comment: Testing | 0.50 - 1.00 | EXTERNAL | | | | performed at [facility];888 | mg/dL | LAB | | | | [address];[place] | | | | | | [address] | | | | + + + + + + | BUN/Creatin | 29Comment: Testing | | EXTERNAL | | | ine Ratio | performed at [facility];[address] | | LAB | | | | [address];[place] | | | | | | [address] | | | | + + + + + + | Calcium | 8.8Comment: Testing | 8.5 - 10.2 | EXTERNAL | | | | performed at [facility];[address] | mg/dL | LAB | | | | [address];[place] | | | | | | [address] | | | | + + + + + + | Estimated | >60Comment: GFR <60: | mL/min/1.73m2 | EXTERNAL | | | GFR | CHRONIC KIDNEY DISEASE, | | LAB | | | | IF FOUND OVER A 3 MONTH | | | | | | PERIOD.GFR <15: KIDNEY | | | | | | FAILURE.FOR | | | | | | AMERICANS, MULTIPLY THE | | | | | | CALCULATED GFR BY | | | | | | 1.210.Testing performed | | | | | | at [facility];[address];[place] [address] | | | | + + + + + + + + | Specimen | + + | Blood specimen | | (specimen) | + + + +---------+ + + | Performing | Address | City/State/Zipcode | Phone Number | | Organization | | | | + +---------+ + + | EXTERNAL LAB | | | | + +---------+ + + POC Glucose (05/12/2013 12:44 PM PST) + + + + + + | Component | Value | Ref Range | Performed | Pathologist | | | | | At | Signature | + + + + + + | Glucose, | 170 (H)Comment: Testing | 65 - 99 mg/dL | EXTERNAL | | | Fingerstick | performed at [facility];[address] | | LAB | | | | [address];[place], [place] | | | | | | [address] | | | | + + + + + + + + | Specimen | + + | | + + + +---------+ + + | Performing | Address | City/State/Zipcode | Phone Number | | Organization | | | | + +---------+ + + | EXTERNAL LAB | | | | + +---------+ + + XR Chest 1 Vw (05/12/2013 5:47 AM PST) + + | Specimen | + + | | + + + + + | Impressions | Performed At | + + + | 1. Persistent bilateral lower lobe dense alveolar infiltrates, | | | unchanged, indicating pulmonary edema, and/or pleural effusions, | | | and/or ARDS. 2. Persistent cardiomegaly. 3. Resolution of recent | | | pneumomediastinum. 4. Satisfactory position of life-support | | | catheters. Electronically signed by Geronimo Lovett MD on | | | 05/12/2013 7:27 AM | | + + + + + + | Narrative | Performed At | + + + | GILMA Leyva SALMON XR CHEST 1 VIEW 05/12/2013 5:47 AM History: 47 | | | years. Female. Followup for acute respiratory failure. | | | Pneumomediastinum. Technique: AP portable upright technique was | | | performed at 0509 hours. Comparison: 05/11/13 Findings: The | | | previous pneumomediastinum visualized on 05/11/13 has resolved. Mild | | | to moderate cardiomegaly is again noted. Dense alveolar infiltrates | | | are again visualized in the lower lung robb bilaterally, obscuring | | | the hemidiaphragms and heart borders. Perihilar interstitial | | | densities also prominent, unchanged. No pneumothorax visualized. The | | | inspiratory effort is moderate. A tracheostomy device is in good | | | position, unchanged. A RIGHT brachial central venous PICC line is | | | present with the tip at the junction of The superior vena cava and | | | right atrium, in good position. A nasogastric feeding tube is | | | visualized in the stomach. | | + + + + + | Procedure Note | + + | Fox, Rad Conversion - 11/20/2018 1:53 PM PDT GILMA SALMONXR CHEST 1 VIEW05/12/2013 | | 5:47 AM History: 47 years. Female. Followup for acute respiratory failure. | | Pneumomediastinum. Technique: AP portable upright technique was performed at 0509 | | hours.Comparison: 05/11/13 Findings: The previous pneumomediastinum visualized on | | 05/11/13 has resolved. Mild to moderate cardiomegaly is again noted. Dense alveolar | | infiltrates are again visualized in the lower lung robb bilaterally, obscuring the | | hemidiaphragms and heart borders. Perihilar interstitial densities also prominent, | | unchanged. No pneumothorax visualized. The inspiratory effort is moderate. A | | tracheostomy device is in good position, unchanged. A RIGHT brachial central venous PICC | | line is present with the tip at the junction of The superior vena cava and right | | atrium, in good position. A nasogastric feeding tube is visualized in the stomach. | | IMPRESSION: 1. Persistent bilateral lower lobe dense alveolar infiltrates, unchanged, | | indicating pulmonary edema, and/or pleural effusions, and/or ARDS.2. Persistent | | cardiomegaly.3. Resolution of recent pneumomediastinum.4. Satisfactory position of | | life-support catheters. | | AM | |1. Persistent bilateral lower lobe dense alveolar infiltrates, unchanged, indicating pulmo nary edema, and/or pleural effusions, and/or ARDS. | |2. Persistent cardiomegaly. | |3. Resolution of recent pneumomediastinum. | |4. Satisfactory position of life-support catheters. | | | | | + + POC Glucose (05/12/2013 5:28 AM PST) + + + + + + | Component | Value | Ref Range | Performed | Pathologist | | | | | At | Signature | + + + + + + | Glucose, | 151 (H)Comment: Testing | 65 - 99 mg/dL | EXTERNAL | | | Fingerstick | performed at [facility];[address] | | LAB | | | | [facility];[place] | | | | | | [address] | | | | + + + + + + + + | Specimen | + + | | + + + +---------+ + + | Performing | Address | City/State/Zipcode | Phone Number | | Organization | | | | + +---------+ + + | EXTERNAL LAB | | | | + +---------+ + + External Lab: CBC (05/12/2013 5:00 AM PST) + + + + + + | Component | Value | Ref Range | Performed | Pathologist | | | | | At | Signature | + + + + + + | WBC | 7.1Comment: Testing | 3.8 - 11.0 K/uL | EXTERNAL | | | | performed at [facility], [address] | | LAB | | | | [address], | | | | | | [place] [address] | | | | + + + + + + | Non- | 3.90Comment: Testing | 3.70 - 5.10 | EXTERNAL | | | Red Blood | performed at [facility], [address] | M/uL | LAB | | | Cells | [address], | | | | | Counted | [place] [address] | | | | + + + + + + | Hemoglobin | 10.4 (L)Comment: Testing | 11.3 - 15.5 | EXTERNAL | | | | performed at [facility], [address] | g/dL | LAB | | | | [address], | | | | | | [place] [address] | | | | + + + + + + | Hematocrit, | 31.8 (L)Comment: Testing | 34.0 - 46.0 % | EXTERNAL | | | POC | performed at [facility], [address] | | LAB | | | | [address], | | | | | | [place] [address] | | | | + + + + + + | MCV | 81.6Comment: Testing | 80.0 - 100.0 fl | EXTERNAL | | | | performed at [facility], [address] | | LAB | | | | [address], | | | | | | [place] [address] | | | | + + + + + + | MCH | 26.7 (L)Comment: Testing | 27.0 - 34.0 pg | EXTERNAL | | | | performed at [facility], [address] | | LAB | | | | [address], | | | | | | [place] [address] | | | | + + + + + + | MCHC | 32.7Comment: Testing | 32.0 - 35.5 | EXTERNAL | | | | performed at [facility], [address] | g/dL | LAB | | | | [address], | | | | | | [place] [address] | | | | + + + + + + | RDW-CV | 39.8Comment: Testing | 37 - 53 fl | EXTERNAL | | | | performed at [facility], [address] | | LAB | | | | [address], | | | | | | [place] [address] | | | | + + + + + + | Platelet | 469 (H)Comment: Testing | 150 - 400 K/uL | EXTERNAL | | | Count | performed at [facility], [address] | | LAB | | | Plasma | [address], | | | | | | [place] [address] | | | | + + + + + + | MPV | 7.1Comment: Testing | fl | EXTERNAL | | | | performed at [facility], [address] | | LAB | | | | [address], | | | | | | [place] [address] | | | | + + + + + + | Differentia | AUTOMATEDComment: | | EXTERNAL | | | l Type | Testing performed at | | LAB | | | | [facility], [address] | | | | | | [place] | | | | | | [address] | | | | + + + + + + | % Segmented | 66.5 | % | EXTERNAL | | | | | | LAB | | | Neutrophils | | | | | + + + + + + | % | 18.6 | % | EXTERNAL | | | Lymphocytes | | | LAB | | + + + + + + | % Monocytes | 12.7 | % | EXTERNAL | | | | | | LAB | | + + + + + + | % | 1.6 | % | EXTERNAL | | | Eosinophils | | | LAB | | + + + + + + | % Basophils | 0.6 | % | EXTERNAL | | | | | | LAB | | + + + + + + | Absolute | 4.7 | 1.9 - 7.4 K/uL | EXTERNAL | | | Segmented | | | LAB | | | Neutrophils | | | | | + + + + + + | Absolute | 1.3 | 1.0 - 3.9 K/uL | EXTERNAL | | | Lymphocytes | | | LAB | | + + + + + + | Absolute | 0.9 (H) | 0 - 0.8 K/uL | EXTERNAL | | | Monocytes | | | LAB | | + + + + + + | Absolute | 0.1 | 0 - 0.5 K/uL | EXTERNAL | | | Eosinophils | | | LAB | | + + + + + + | Absolute | 0.0 | 0 - 0.1 K/uL | EXTERNAL | | | Basophils | | | LAB | | + + + + + + | RBC | Comment: 1+ Hypochromia | | EXTERNAL | | | Morphology | | | LAB | | + + + + + + + + | Specimen | + + | Blood specimen | | (specimen) | + + + +---------+ + + | Performing | Address | City/State/Zipcode | Phone Number | | Organization | | | | + +---------+ + + | EXTERNAL LAB | | | | + +---------+ + + Magnesium (05/12/2013 5:00 AM PST) + + + + + + | Component | Value | Ref Range | Performed | Pathologist | | | | | At | Signature | + + + + + + | Magnesium | 1.9Comment: Testing | 1.7 - 2.4 mg/dL | EXTERNAL | | | | performed at [facility], [address] | | LAB | | | | [address], | | | | | | [place] [address] | | | | + + + + + + + + | Specimen | + + | Blood specimen | | (specimen) | + + + +---------+ + + | Performing | Address | City/State/Zipcode | Phone Number | | Organization | | | | + +---------+ + + | EXTERNAL LAB | | | | + +---------+ + + Comprehensive Metabolic Panel (05/12/2013 5:00 AM PST) + + + + + + | Component | Value | Ref Range | Performed | Pathologist | | | | | At | Signature | + + + + + + | Na | 136Comment: Testing | 135 - 143 | EXTERNAL | | | | performed at [facility], [address] | mmol/L | LAB | | | | [address], | | | | | | [place] [address] | | | | + + + + + + | K | 3.7Comment: Testing | 3.5 - 4.9 | EXTERNAL | | | | performed at [facility], [address] | mmol/L | LAB | | | | [address], | | | | | | [place] [address] | | | | + + + + + + | Cl | 102Comment: Testing | 99 - 109 mmol/L | EXTERNAL | | | | performed at [facility], [address] | | LAB | | | | [address], | | | | | | [place] [address] | | | | + + + + + + | CO2 | 29Comment: Testing | 23 - 32 mmol/L | EXTERNAL | | | | performed at [facility], [address] | | LAB | | | | [address], | | | | | | [place] [address] | | | | + + + + + + | Anion Gap | 9Comment: Testing | 5 - 20 mmol/L | EXTERNAL | | | | performed at [facility], [address] | | LAB | | | | [address], | | | | | | [place] [address] | | | | + + + + + + | Glucose, | 147 (H)Comment: Testing | 65 - 99 mg/dL | EXTERNAL | | | Fasting | performed at [facility], [address] | | LAB | | | | [address], | | | | | | [place] [address] | | | | + + + + + + | BUN | 18Comment: Testing | 8 - 25 mg/dL | EXTERNAL | | | | performed at [facility], [address] | | LAB | | | | [address], | | | | | | [place] [address] | | | | + + + + + + | Creatinine | 0.45 (L)Comment: Testing | 0.50 - 1.00 | EXTERNAL | | | | performed at [facility], [address] | mg/dL | LAB | | | | [address], | | | | | | [place] [address] | | | | + + + + + + | BUN/Creatin | 40Comment: Testing | | EXTERNAL | | | ine Ratio | performed at [facility], [address] | | LAB | | | | [address], | | | | | | [place] [address] | | | | + + + + + + | Calcium | 8.9Comment: Testing | 8.5 - 10.2 | EXTERNAL | | | | performed at [facility], [address] | mg/dL | LAB | | | | [address], | | | | | | [place] [address] | | | | + + + + + + | Protein, | 7.1Comment: Testing | 6.3 - 8.2 g/dL | EXTERNAL | | | Total | performed at [facility], [address] | | LAB | | | | [address], | | | | | | [place] [address] | | | | + + + + + + | Albumin | 2.8 (L)Comment: Testing | 3.6 - 5.0 g/dL | EXTERNAL | | | | performed at [facility], [address] | | LAB | | | | [address], | | | | | | [place] [address] | | | | + + + + + + | Globulin | 4.3Comment: Testing | 1.3 - 4.9 g/dL | EXTERNAL | | | | performed at [facility], [address] | | LAB | | | | [address], | | | | | | [place] [address] | | | | + + + + + + | A/G Ratio | 0.7 (L)Comment: Testing | 1.0 - 2.4 | EXTERNAL | | | | performed at [facility], [address] | | LAB | | | | [address], | | | | | | [place] [address] | | | | + + + + + + | Bilirubin | 0.5Comment: Testing | 0.1 - 1.5 mg/dL | EXTERNAL | | | Total | performed at [facility], [address] | | LAB | | | | [address], | | | | | | [place] [address] | | | | + + + + + + | ALP, | 94Comment: Testing | 35 - 115 U/L | EXTERNAL | | | External | performed at [facility], [address] | | LAB | | | | [address], | | | | | | [place] [address] | | | | + + + + + + | AST | 62 (H)Comment: Testing | 10 - 45 U/L | EXTERNAL | | | | performed at [facility], [address] | | LAB | | | | [address], | | | | | | [place] [address] | | | | + + + + + + | ALT | 70 (H)Comment: Testing | 10 - 65 U/L | EXTERNAL | | | | performed at [facility], [address] | | LAB | | | | [address], | | | | | | [place] [address] | | | | + + + + + + | Estimated | >60Comment: GFR <60: | mL/min/1.73m2 | EXTERNAL | | | GFR | CHRONIC KIDNEY DISEASE, | | LAB | | | | IF FOUND OVER A 3 MONTH | | | | | | PERIOD.GFR <15: KIDNEY | | | | | | FAILURE.FOR | | | | | | AMERICANS, MULTIPLY THE | | | | | | CALCULATED GFR BY | | | | | | 1.210.Testing performed | | | | | | at [facility], [address] | | | | | | [address], | | | | | | [place] [address] | | | | + + + + + + + + | Specimen | + + | Blood specimen | | (specimen) | + + + +---------+ + + | Performing | Address | City/State/Zipcode | Phone Number | | Organization | | | | + +---------+ + + | EXTERNAL LAB | | | | + +---------+ + + POC Glucose (05/12/2013 12:06 AM PST) + + + + + + | Component | Value | Ref Range | Performed | Pathologist | | | | | At | Signature | + + + + + + | Glucose, | 162 (H)Comment: Testing | 65 - 99 mg/dL | EXTERNAL | | | Fingerstick | performed at [facility];[address] | | LAB | | | | [address];[place], [place] | | | | | | [address] | | | | + + + + + + + + | Specimen | + + | | + + + +---------+ + + | Performing | Address | City/State/Zipcode | Phone Number | | Organization | | | | + +---------+ + + | EXTERNAL LAB | | | | + +---------+ + + Potassium (05/11/2013 5:47 PM PST) + + + + + + | Component | Value | Ref Range | Performed | Pathologist | | | | | At | Signature | + + + + + + | K | 4.1Comment: Testing | 3.5 - 4.9 | EXTERNAL | | | | performed at [facility];[address] | mmol/L | LAB | | | | [address];[place], [place] | | | | | | [address] | | | | + + + + + + + + | Specimen | + + | Blood specimen | | (specimen) | + + + +---------+ + + | Performing | Address | City/State/Zipcode | Phone Number | | Organization | | | | + +---------+ + + | EXTERNAL LAB | | | | + +---------+ + + Phosphorus (05/11/2013 5:47 PM PST) + + + + + + | Component | Value | Ref Range | Performed | Pathologist | | | | | At | Signature | + + + + + + | PHOSPHORUS | 3.8Comment: Testing | 2.3 - 4.8 mg/dL | EXTERNAL | | | | performed at [facility];[address] | | LAB | | | | [address];[place] | | | | | | [address] | | | | + + + + + + + + | Specimen | + + | Blood specimen | | (specimen) | + + + +---------+ + + | Performing | Address | City/State/Zipcode | Phone Number | | Organization | | | | + +---------+ + + | EXTERNAL LAB | | | | + +---------+ + + Magnesium (05/11/2013 5:47 PM PST) + + + + + + | Component | Value | Ref Range | Performed | Pathologist | | | | | At | Signature | + + + + + + | Magnesium | 1.6 (L)Comment: Testing | 1.7 - 2.4 mg/dL | EXTERNAL | | | | performed at [facility];[address] | | LAB | | | | [address];[place], [place] | | | | | | [address] | | | | + + + + + + + + | Specimen | + + | Blood specimen | | (specimen) | + + + +---------+ + + | Performing | Address | City/State/Zipcode | Phone Number | | Organization | | | | + +---------+ + + | EXTERNAL LAB | | | | + +---------+ + + POC Glucose (05/11/2013 5:45 PM PST) + + + + + + | Component | Value | Ref Range | Performed | Pathologist | | | | | At | Signature | + + + + + + | Glucose, | 162 (H)Comment: Testing | 65 - 99 mg/dL | EXTERNAL | | | Fingerstick | performed at [facility];[address] | | LAB | | | | [address];[place] | | | | | | [address] | | | | + + + + + + + + | Specimen | + + | | + + + +---------+ + + | Performing | Address | City/State/Zipcode | Phone Number | | Organization | | | | + +---------+ + + | EXTERNAL LAB | | | | + +---------+ + + POC Glucose (05/11/2013 1:02 PM PST) + + + + + + | Component | Value | Ref Range | Performed | Pathologist | | | | | At | Signature | + + + + + + | Glucose, | 166 (H)Comment: Testing | 65 - 99 mg/dL | EXTERNAL | | | Fingerstick | performed at [facility];[address] | | LAB | | | | [address];[place] | | | | | | [address] | | | | + + + + + + + + | Specimen | + + | | + + + +---------+ + + | Performing | Address | City/State/Zipcode | Phone Number | | Organization | | | | + +---------+ + + | EXTERNAL LAB | | | | + +---------+ + + XR Chest 1 Vw (05/11/2013 12:58 PM PST) + + | Specimen | + + | | + + + + + | Impressions | Performed At | + + + | 1. Interval placement of a tracheostomy tube. 2. Other | | | life-support devices as described above. 3. Cardiomegaly and | | | bilateral lower lobe airspace opacities and pleural effusions again | | | noted. 4. Interval development of small amount of | | | pneumomediastinum. | | + + + + + + | Narrative | Performed At | + + + | GILMA SALMON XR CHEST 1 VIEW 05/11/2013 12:42 PM HISTORY: 47 | | | years. Female. Status post endotracheal tube placement | | | TECHNIQUE: XR CHEST 1 VIEW. AP portable view of the chest 1250 hrs.. | | | Total of 1 images obtained. COMPARISON: 0506 hrs. Earlier | | | this morning FINDINGS: There's been interval placement of a | | | tracheostomy tube the tip is in the mid trachea. A nasogastric tube is | | | present it extends below the level of the diaphragm distal tip is not | | | visible. There is been interval development of a small amount of | | | pneumomediastinum this was discussed with the operating surgeon he | | | reports this is a common occurrence after this procedure. The | | | prominence of the cardiac silhouette and bilateral lower lobe | | | parenchymal density infiltrate versus edema and bilateral pleural | | | effusion again noted. | | + + + + + | Procedure Note | + + | Fox, Rad Conversion - 11/20/2018 1:53 PM PDT GILMA SALMONXR CHEST 1 VIEW05/11/2013 | | 12:42 PM HISTORY:47 years. Female. Status post endotracheal tube placement | | TECHNIQUE:XR CHEST 1 VIEW. AP portable view of the chest 1250 hrs.. Total of 1 images | | obtained. COMPARISON:0506 hrs. Earlier this morning FINDINGS:There's been interval | | placement of a tracheostomy tube the tip is in the mid trachea. A nasogastric tube is | | present it extends below the level of the diaphragm distal tip is not visible. There is | | been interval development of a small amount of pneumomediastinum this was discussed with | | the operating surgeon he reports this is a common occurrence after this procedure. The | | prominence of the cardiac silhouette and bilateral lower lobe parenchymal density | | infiltrate versus edema and bilateral pleural effusion again noted. IMPRESSION: 1. | | Interval placement of a tracheostomy tube.2. Other life-support devices as described | | above.3. Cardiomegaly and bilateral lower lobe airspace opacities and pleural effusions | | again noted.4. Interval development of small amount of pneumomediastinum. | | | |There's been interval placement of a tracheostomy tube the tip is in the mid trachea. A yasir ogastric tube is present it extends below the level of the diaphragm distal tip is not visib le. There is been interval development of a small amount of | |pneumomediastinum this was discussed with the operating surgeon he reports this is a common occurrence after this procedure. The prominence of the cardiac silhouette and bilateral low er lobe parenchymal density infiltrate versus edema and bilateral | |pleural effusion again noted. | | | |IMPRESSION: | |1. Interval placement of a tracheostomy tube. | |2. Other life-support devices as described above. | |3. Cardiomegaly and bilateral lower lobe airspace opacities and pleural effusions again no alvin. | |4. Interval development of small amount of pneumomediastinum. | | | | | | | | | + + POC Glucose (05/11/2013 6:44 AM PST) + + + + + + | Component | Value | Ref Range | Performed | Pathologist | | | | | At | Signature | + + + + + + | Glucose, | 155 (H)Comment: Testing | 65 - 99 mg/dL | EXTERNAL | | | Fingerstick | performed at [facility];[address] | | LAB | | | | [address];[place], [place] | | | | | | [address] | | | | + + + + + + + + | Specimen | + + | | + + + +---------+ + + | Performing | Address | City/State/Zipcode | Phone Number | | Organization | | | | + +---------+ + + | EXTERNAL LAB | | | | + +---------+ + + XR Chest 1 Vw (05/11/2013 5:53 AM PST) + + | Specimen | + + | | + + + + + | Impressions | Performed At | + + + | 1. Persistent bilateral lower lobe dense alveolar infiltrates | | | consistent with ARDS, unchanged. 2. Pleural effusions may or may | | | not be present laterally. 3. Mild cardiomegaly and grade 1 | | | pulmonary venous hypertension. 4. Satisfactory position of | | | life-support catheters. | | + + + + + + | Narrative | Performed At | + + + | [facility] Leyva SALMON XR CHEST 1 VIEW 05/11/2013 5:53 AM History: 47 | | | years. Female. Acute respiratory failure with arts. Followup | | | examination. Technique: AP portable upright technique was | | | performed at 0506 hours. Comparison: 05/10/13 Findings: Dense | | | alveolar infiltrates are visualized in both lower lung robb, with | | | mild air bronchograms, relatively unchanged over several days. The | | | upper lung robb are relatively clear. Pleural effusions may or may | | | not be present on either side. Mild cardiomegaly is noted. The | | | upper lobe pulmonary vasculature is distended. The tip of the | | | endotracheal tube is at T4. A nasogastric tube is positioned in the | | | stomach. A RIGHT brachial central venous PICC line is present with the | | | tip at the junction of The superior vena cava and right atrium, in | | | good position. | | + + + + -----+ | Procedure Note | + -----+ | Fox, Ermias Conversion - 11/20/2018 1:53 PM PDT [facility] MEDEROS CHEST 1 VIEW05/11/2013 | | 5:53 AM History: 47 years. Female. Acute respiratory failure with arts. Followup | | examination. Technique: AP portable upright technique was performed at 0506 | | hours.Comparison: 05/10/13 Findings: Dense alveolar infiltrates are visualized in both | | lower lung robb, with mild air bronchograms, relatively unchanged over several days. | | The upper lung robb are relatively clear. Pleural effusions may or may not be present | | on either side. Mild cardiomegaly is noted. The upper lobe pulmonary vasculature is | | distended. The tip of the endotracheal tube is at T4. A nasogastric tube is positioned | | in the stomach. A RIGHT brachial central venous PICC line is present with the tip at the | | junction of The superior vena cava and right atrium, in good position. IMPRESSION: 1. | | Persistent bilateral lower lobe dense alveolar infiltrates consistent with ARDS, | | unchanged.2. Pleural effusions may or may not be present laterally.3. Mild | | cardiomegaly and grade 1 pulmonary venous hypertension.4. Satisfactory position of | | life-support catheters. | | AM | |IMPRESSION: | |1. Persistent bilateral lower lobe dense alveolar infiltrates consistent with ARDS, unchan ged. | |2. Pleural effusions may or may not be present laterally. | |3. Mild cardiomegaly and grade 1 pulmonary venous hypertension. | |4. Satisfactory position of life-support catheters. | | | | | + -----+ Calcium, Ionized (05/11/2013 4:24 AM PST) + + + + + + | Component | Value | Ref Range | Performed | Pathologist | | | | | At | Signature | + + + + + + | Calcium | 1.14Comment: Testing | 1.08 - 1.25 | EXTERNAL | | | (Calc) | performed at [facility];[address] | mmol/L | LAB | | | | [address];[place] | | | | | | [address] | | | | + + + + + + | pH, Bld | 7.463 (H)Comment: | 7.300 - 7.450 | EXTERNAL | | | | Testing performed at | | LAB | | | | [facility];[address];[place] [address] | | | | + + + + + + + + | Specimen | + + | Blood specimen | | (specimen) | + + + +---------+ + + | Performing | Address | City/State/Zipcode | Phone Number | | Organization | | | | + +---------+ + + | EXTERNAL LAB | | | | + +---------+ + + Protime INR (05/11/2013 4:19 AM PST) + + + + + + | Component | Value | Ref Range | Performed | Pathologist | | | | | At | Signature | + + + + + + | INR | 1.0Comment: REFERENCE | | EXTERNAL | | | | RANGE:0.9 - 1.2 | | LAB | | | | NON-ANTICOAGULATED2.0 | | | | | | - 3.0 ALL OTHER | | | | | | THERAPEUTIC | | | | | | INDICATIONS2.5 - 3.5 | | | | | | MECHANICAL HEART VALVES, | | | | | | RECURRENT OR SYSTEMIC | | | | | | EMBOLISMTesting | | | | | | performed at [facility];[address] | | | | | | [facility];[place], [place] | | | | | | [address] | | | | + + + + + + + + | Specimen | + + | Blood specimen | | (specimen) | + + + +---------+ + + | Performing | Address | City/State/Zipcode | Phone Number | | Organization | | | | + +---------+ + + | EXTERNAL LAB | | | | + +---------+ + + External Lab: CBC (05/11/2013 4:19 AM PST) + + + + + + | Component | Value | Ref Range | Performed | Pathologist | | | | | At | Signature | + + + + + + | WBC | 6.6Comment: Testing | 3.8 - 11.0 K/uL | EXTERNAL | | | | performed at [facility];[address] | | LAB | | | | [address];[place] | | | | | | [address] | | | | + + + + + + | Non- | 3.85Comment: Testing | 3.70 - 5.10 | EXTERNAL | | | Red Blood | performed at [facility];[address] | M/uL | LAB | | | Cells | [address];[place] | | | | | Counted | [id number] | | | | + + + + + + | Hemoglobin | 10.6 (L)Comment: Testing | 11.3 - 15.5 | EXTERNAL | | | | performed at [facility];[address] | g/dL | LAB | | | | [address];[place] | | | | | | [address] | | | | + + + + + + | Hematocrit, | 31.0 (L)Comment: Testing | 34.0 - 46.0 % | EXTERNAL | | | POC | performed at [facility];[address] | | LAB | | | | [address];[place] | | | | | | [address] | | | | + + + + + + | MCV | 80.5Comment: Testing | 80.0 - 100.0 fl | EXTERNAL | | | | performed at [facility];[address] | | LAB | | | | [address];[place] | | | | | | [address] | | | | + + + + + + | MCH | 27.5Comment: Testing | 27.0 - 34.0 pg | EXTERNAL | | | | performed at [facility];[address] | | LAB | | | | [address];[place] | | | | | | [address] | | | | + + + + + + | MCHC | 34.1Comment: Testing | 32.0 - 35.5 | EXTERNAL | | | | performed at [facility];[address] | g/dL | LAB | | | | [address];[place] | | | | | | [address] | | | | + + + + + + | RDW-CV | 41.1Comment: Testing | 37 - 53 fl | EXTERNAL | | | | performed at [facility];[address] | | LAB | | | | [address];[place] | | | | | | [address] | | | | + + + + + + | Platelet | 484 (H)Comment: Testing | 150 - 400 K/uL | EXTERNAL | | | Count | performed at [facility];[address] | | LAB | | | Plasma | [address];[place] | | | | | | [address] | | | | + + + + + + | MPV | 6.8Comment: Testing | fl | EXTERNAL | | | | performed at [facility];[address] | | LAB | | | | [address];[place] | | | | | | [address] | | | | + + + + + + | Differentia | AUTOMATEDComment: | | EXTERNAL | | | l Type | Testing performed at | | LAB | | | | [facility];[address] | | | | | [address];[place] [address] | | | | + + + + + + | % Segmented | 66.5 | % | EXTERNAL | | | | | | LAB | | | Neutrophils | | | | | + + + + + + | % | 20.3 | % | EXTERNAL | | | Lymphocytes | | | LAB | | + + + + + + | % Monocytes | 10.8 | % | EXTERNAL | | | | | | LAB | | + + + + + + | % | 2.2 | % | EXTERNAL | | | Eosinophils | | | LAB | | + + + + + + | % Basophils | 0.2 | % | EXTERNAL | | | | | | LAB | | + + + + + + | Absolute | 4.4 | 1.9 - 7.4 K/uL | EXTERNAL | | | Segmented | | | LAB | | | Neutrophils | | | | | + + + + + + | Absolute | 1.3 | 1.0 - 3.9 K/uL | EXTERNAL | | | Lymphocytes | | | LAB | | + + + + + + | Absolute | 0.7 | 0 - 0.8 K/uL | EXTERNAL | | | Monocytes | | | LAB | | + + + + + + | Absolute | 0.1 | 0 - 0.5 K/uL | EXTERNAL | | | Eosinophils | | | LAB | | + + + + + + | Absolute | 0.0 | 0 - 0.1 K/uL | EXTERNAL | | | Basophils | | | LAB | | + + + + + + + + | Specimen | + + | Blood specimen | | (specimen) | + + + +---------+ + + | Performing | Address | City/State/Zipcode | Phone Number | | Organization | | | | + +---------+ + + | EXTERNAL LAB | | | | + +---------+ + + Phosphorus (05/11/2013 4:19 AM PST) + + + + + + | Component | Value | Ref Range | Performed | Pathologist | | | | | At | Signature | + + + + + + | PHOSPHORUS | 3.3Comment: Testing | 2.3 - 4.8 mg/dL | EXTERNAL | | | | performed at [facility];[address] | | LAB | | | | [address];[place], [place] | | | | | | [address] | | | | + + + + + + + + | Specimen | + + | Blood specimen | | (specimen) | + + + +---------+ + + | Performing | Address | City/State/Zipcode | Phone Number | | Organization | | | | + +---------+ + + | EXTERNAL LAB | | | | + +---------+ + + Magnesium (05/11/2013 4:19 AM PST) + + + + + + | Component | Value | Ref Range | Performed | Pathologist | | | | | At | Signature | + + + + + + | Magnesium | 1.8Comment: Testing | 1.7 - 2.4 mg/dL | EXTERNAL | | | | performed at [facility];[address] | | LAB | | | | [address];[place], [place] | | | | | | [address] | | | | + + + + + + + + | Specimen | + + | Blood specimen | | (specimen) | + + + +---------+ + + | Performing | Address | City/State/Zipcode | Phone Number | | Organization | | | | + +---------+ + + | EXTERNAL LAB | | | | + +---------+ + + Comprehensive Metabolic Panel (05/11/2013 4:19 AM PST) + + + + + + | Component | Value | Ref Range | Performed | Pathologist | | | | | At | Signature | + + + + + + | Na | 137Comment: Testing | 135 - 143 | EXTERNAL | | | | performed at [facility];[address] | mmol/L | LAB | | | | [address];[place] | | | | | | [address] | | | | + + + + + + | K | 3.9Comment: Testing | 3.5 - 4.9 | EXTERNAL | | | | performed at [facility];[address] | mmol/L | LAB | | | | [address];[place] | | | | | | [address] | | | | + + + + + + | Cl | 104Comment: Testing | 99 - 109 mmol/L | EXTERNAL | | | | performed at [facility];[address] | | LAB | | | | [address];[place] | | | | | | [address] | | | | + + + + + + | CO2 | 27Comment: Testing | 23 - 32 mmol/L | EXTERNAL | | | | performed at [facility];[address] | | LAB | | | | [address];[place] | | | | | | [address] | | | | + + + + + + | Anion Gap | 10Comment: Testing | 5 - 20 mmol/L | EXTERNAL | | | | performed at [facility];[address] | | LAB | | | | [address];[place] | | | | | | [address] | | | | + + + + + + | Glucose, | 151 (H)Comment: Testing | 65 - 99 mg/dL | EXTERNAL | | | Fasting | performed at [facility];[address] | | LAB | | | | [address];[place] | | | | | | [address] | | | | + + + + + + | BUN | 17Comment: Testing | 8 - 25 mg/dL | EXTERNAL | | | | performed at [facility];[address] | | LAB | | | | [address];[place] | | | | | | [address] | | | | + + + + + + | Creatinine | 0.57Comment: Testing | 0.50 - 1.00 | EXTERNAL | | | | performed at [facility];[address] | mg/dL | LAB | | | | [address];[place] | | | | | | [address] | | | | + + + + + + | BUN/Creatin | 29Comment: Testing | | EXTERNAL | | | ine Ratio | performed at [facility];[address] | | LAB | | | | [address];[place] | | | | | | [address] | | | | + + + + + + | Calcium | 8.3 (L)Comment: Testing | 8.5 - 10.2 | EXTERNAL | | | | performed at [facility];[address] | mg/dL | LAB | | | | [address];[place] | | | | | | [address] | | | | + + + + + + | Protein, | 7.1Comment: Testing | 6.3 - 8.2 g/dL | EXTERNAL | | | Total | performed at [facility];[address] | | LAB | | | | [address];[place] | | | | | | [address] | | | | + + + + + + | Albumin | 1.9 (L)Comment: Testing | 3.6 - 5.0 g/dL | EXTERNAL | | | | performed at [facility];[address] | | LAB | | | | [address];[place] | | | | | | [address] | | | | + + + + + + | Globulin | 5.1 (H)Comment: Testing | 1.3 - 4.9 g/dL | EXTERNAL | | | | performed at [facility];[address] | | LAB | | | | [address];[place] | | | | | | [address] | | | | + + + + + + | A/G Ratio | 0.4 (L)Comment: Testing | 1.0 - 2.4 | EXTERNAL | | | | performed at [facility];[address] | | LAB | | | | [address];[place] | | | | | | [address] | | | | + + + + + + | Bilirubin | 0.5Comment: Testing | 0.1 - 1.5 mg/dL | EXTERNAL | | | Total | performed at [facility];[address] | | LAB | | | | [address];[place] | | | | | | [address] | | | | + + + + + + | ALP, | 120 (H)Comment: Testing | 35 - 115 U/L | EXTERNAL | | | External | performed at [facility];[address] | | LAB | | | | [address];[place] | | | | | | [address] | | | | + + + + + + | AST | 79 (H)Comment: Testing | 10 - 45 U/L | EXTERNAL | | | | performed at [facility];[address] | | LAB | | | | [address];[place] | | | | | | [address] | | | | + + + + + + | ALT | 78 (H)Comment: Testing | 10 - 65 U/L | EXTERNAL | | | | performed at [facility];[address] | | LAB | | | | [address];[place] | | | | | | [address] | | | | + + + + + + | Estimated | >60Comment: GFR <60: | mL/min/1.73m2 | EXTERNAL | | | GFR | CHRONIC KIDNEY DISEASE, | | LAB | | | | IF FOUND OVER A 3 MONTH | | | | | | PERIOD.GFR <15: KIDNEY | | | | | | FAILURE.FOR | | | | | | AMERICANS, MULTIPLY THE | | | | | | CALCULATED GFR BY | | | | | | 1.210.Testing performed | | | | | | at [facility];[address] [place] [address] | | | | | | [facility];[place] [address] | | | | + + + + + + + + | Specimen | + + | Blood specimen | | (specimen) | + + + +---------+ + + | Performing | Address | City/State/Zipcode | Phone Number | | Organization | | | | + +---------+ + + | EXTERNAL LAB | | | | + +---------+ + + POC Glucose (05/10/2013 11:56 PM PST) + + + + + + | Component | Value | Ref Range | Performed | Pathologist | | | | | At | Signature | + + + + + + | Glucose, | 157 (H)Comment: Testing | 65 - 99 mg/dL | EXTERNAL | | | Fingerstick | performed at [facility];[address] | | LAB | | | | [address];[place] | | | | | | [address] | | | | + + + + + + + + | Specimen | + + | | + + + +---------+ + + | Performing | Address | City/State/Zipcode | Phone Number | | Organization | | | | + +---------+ + + | EXTERNAL LAB | | | | + +---------+ + + PTT (05/10/2013 6:11 PM PST) + + + + + + | Component | Value | Ref Range | Performed | Pathologist | | | | | At | Signature | + + + + + + | aPTT, | 26Comment: Testing | 23 - 32 seconds | EXTERNAL | | | Patient | performed at [facility];[address] | | LAB | | | | [address];[place] | | | | | | [address] | | | | + + + + + + + + | Specimen | + + | Blood specimen | | (specimen) | + + + +---------+ + + | Performing | Address | City/State/Zipcode | Phone Number | | Organization | | | | + +---------+ + + | EXTERNAL LAB | | | | + +---------+ + + Protime INR (05/10/2013 6:11 PM PST) + + + + + + | Component | Value | Ref Range | Performed | Pathologist | | | | | At | Signature | + + + + + + | INR | 1.0Comment: REFERENCE | | EXTERNAL | | | | RANGE:0.9 - 1.2 | | LAB | | | | NON-ANTICOAGULATED2.0 | | | | | | - 3.0 ALL OTHER | | | | | | THERAPEUTIC | | | | | | INDICATIONS2.5 - 3.5 | | | | | | MECHANICAL HEART VALVES, | | | | | | RECURRENT OR SYSTEMIC | | | | | | EMBOLISMTesting | | | | | | performed at [facility];[address] | | | | | | [address] [facility];[place], [place] | | | | | | [address] | | | | + + + + + + + + | Specimen | + + | Blood specimen | | (specimen) | + + + +---------+ + + | Performing | Address | City/State/Zipcode | Phone Number | | Organization | | | | + +---------+ + + | EXTERNAL LAB | | | | + +---------+ + + POC Glucose (05/10/2013 5:55 PM PST) + + + + + + | Component | Value | Ref Range | Performed | Pathologist | | | | | At | Signature | + + + + + + | Glucose, | 154 (H)Comment: Testing | 65 - 99 mg/dL | EXTERNAL | | | Fingerstick | performed at [facility];[address] | | LAB | | | | [address];[place] | | | | | | [address] | | | | + + + + + + + + | Specimen | + + | | + + + +---------+ + + | Performing | Address | City/State/Zipcode | Phone Number | | Organization | | | | + +---------+ + + | EXTERNAL LAB | | | | + +---------+ + + Potassium (05/10/2013 5:22 PM PST) + + + + + + | Component | Value | Ref Range | Performed | Pathologist | | | | | At | Signature | + + + + + + | K | 3.9Comment: Testing | 3.5 - 4.9 | EXTERNAL | | | | performed at [facility];[address] | mmol/L | LAB | | | | [address];[place], [place] | | | | | | [address] | | | | + + + + + + + + | Specimen | + + | Blood specimen | | (specimen) | + + + +---------+ + + | Performing | Address | City/State/Zipcode | Phone Number | | Organization | | | | + +---------+ + + | EXTERNAL LAB | | | | + +---------+ + + Phosphorus (05/10/2013 5:22 PM PST) + + + + + + | Component | Value | Ref Range | Performed | Pathologist | | | | | At | Signature | + + + + + + | PHOSPHORUS | 3.4Comment: Testing | 2.3 - 4.8 mg/dL | EXTERNAL | | | | performed at [facility];[address] | | LAB | | | | [address];[place] | | | | | | [address] | | | | + + + + + + + + | Specimen | + + | Blood specimen | | (specimen) | + + + +---------+ + + | Performing | Address | City/State/Zipcode | Phone Number | | Organization | | | | + +---------+ + + | EXTERNAL LAB | | | | + +---------+ + + Magnesium (05/10/2013 5:22 PM PST) + + + + + + | Component | Value | Ref Range | Performed | Pathologist | | | | | At | Signature | + + + + + + | Magnesium | 1.7Comment: Testing | 1.7 - 2.4 mg/dL | EXTERNAL | | | | performed at [facility];[address] | | LAB | | | | [address] [facility];[place], [place] | | | | | | [address] | | | | + + + + + + + + | Specimen | + + | Blood specimen | | (specimen) | + + + +---------+ + + | Performing | Address | City/State/Zipcode | Phone Number | | Organization | | | | + +---------+ + + | EXTERNAL LAB | | | | + +---------+ + + POC Glucose (05/10/2013 12:40 PM PST) + + + + + + | Component | Value | Ref Range | Performed | Pathologist | | | | | At | Signature | + + + + + + | Glucose, | 169 (H)Comment: Testing | 65 - 99 mg/dL | EXTERNAL | | | Fingerstick | performed at [facility];[address] | | LAB | | | | [address];[place], [place] | | | | | | [address] | | | | + + + + + + + + | Specimen | + + | | + + + +---------+ + + | Performing | Address | City/State/Zipcode | Phone Number | | Organization | | | | + +---------+ + + | EXTERNAL LAB | | | | + +---------+ + + ECHO Complete (05/10/2013 12:10 PM PST) + + | Specimen | + + | | + + + + + | Impressions | Performed At | + + + | 1. Sinus rhythm. 2. A 2-dimensional transthoracic echocardiogram | | | with m-mode, spectral and color flow Doppler was perfomed. 3. This | | | was a technically adequate study. 4. Overall left ventricular | | | systolic function is normal with, an EF between 60 - 65 %. 5. The | | | left ventricle cavity size is normal. 6. Left ventricular wall | | | thickness is normal. 7. The right ventricle is normal in size and | | | function. 8. The left atrium is normal in size. 9. The right atrium | | | is normal in size. 10. The aortic valve is trileaflet, and appears | | | anatomically normal. No aortic stenosis or regurgitation. 11. The | | | mitral valve is normal. 12. Mild mitral regurgitation is present. | | | 13. The tricuspid valve appears structurally normal. 14. Mild | | | tricuspid regurgitation present. 15. Right ventricular systolic | | | pressure (pulmonary artery systolic pressure) is normal at < 35 mmHg. | | | 16. Pulmonic valve appears structurally normal. 17. There is no | | | pericardial effusion. 18. The IVC is normal size (1.5-2.5cm) and | | | collapses <50% with sniff, consistent with central venous pressures of | | | 10-15mmHg. | | + + + + + + | Narrative | Performed At | + + + | Patient Name: GILMA SALMON Date of : 1965 | | | Performing Physician: Daina Alan MD | | | | | | INDICATIONS SHORTNESS OF BREATH, ACUTE RESPIRATORY | | | FAILURE, CONCLUSIONS 1. Sinus rhythm. 2. A | | | 2-dimensional transthoracic echocardiogram with m-mode, spectral and | | | color flow Doppler was perfomed. 3. This was a technically adequate | | | study. 4. Overall left ventricular systolic function is normal with, | | | an EF between 60 - 65 %. 5. The left ventricle cavity size is normal. | | | 6. Left ventricular wall thickness is normal. 7. The right | | | ventricle is normal in size and function. 8. The left atrium is | | | normal in size. 9. The right atrium is normal in size. 10. The | | | aortic valve is trileaflet, and appears anatomically normal. No aortic | | | stenosis or regurgitation. 11. The mitral valve is normal. 12. Mild | | | mitral regurgitation is present. 13. The tricuspid valve appears | | | structurally normal. 14. Mild tricuspid regurgitation present. 15. | | | Right ventricular systolic pressure (pulmonary artery systolic | | | pressure) is normal at < 35 mmHg. 16. Pulmonic valve appears | | | structurally normal. 17. There is no pericardial effusion. 18. The | | | IVC is normal size (1.5-2.5cm) and collapses <50% with sniff, | | | consistent with central venous pressures of 10-15mmHg. FINDINGS | | | -------- ECG rhythm: Sinus rhythm. Study: A 2-dimensional | | | transthoracic echocardiogram with m-mode, spectral and color flow | | | Doppler was perfomed. Study: This was a technically adequate study. | | | Left Ventricle: Overall left ventricular systolic function is normal | | | with, an EF between 60 - 65 %. Left Ventricle: The left ventricle | | | cavity size is normal. Left Ventricle: Left ventricular wall | | | thickness is normal. Right Ventricle: The right ventricle is normal | | | in size and function. Left Atrium: The left atrium is normal in size. | | | Right Atrium: The right atrium is normal in size. Aortic Valve: The | | | aortic valve is trileaflet, and appears anatomically normal. No | | | aortic stenosis or regurgitation. Mitral Valve: The mitral valve is | | | normal. Mitral Valve: Mild mitral regurgitation is present. | | | Tricuspid Valve: The tricuspid valve appears structurally normal. | | | Tricuspid Valve: Mild tricuspid regurgitation present. Tricuspid | | | Valve: Right ventricular systolic pressure (pulmonary artery systolic | | | pressure) is normal at < 35 mmHg. Pulmonic Valve: Pulmonic valve | | | appears structurally normal. Pericardium: There is no pericardial | | | effusion. IVC/Hepatic Veins: The IVC is normal size (1.5-2.5cm) and | | | collapses <50% with sniff, consistent with central venous pressures of | | | 10-15mmHg. Thrombus: No clot visualized MEASUREMENTS | | | IVC: 2.14 cm LA Major: 5.00 cm EDV(Teich): | | | 106.82 ml IVSd: 1.43 cm LVIDd: 4.78 cm LVPWd: 1.08 cm | | | LVOT Diam: 2.07 cm %FS: 36.61 % EF(Teich): 66.32 % | | | ESV(Teich): 35.97 ml IVSs: 1.50 cm LVIDs: 3.03 cm LVPWs: | | | 1.69 cm SV(Teich): 70.85 ml RA Major: 4.47 cm RVIDd: | | | 3.05 cm LAESV(A-L): 35.85 ml LAESV Index (A-L): 14.81 ml/m2 | | | LAAs A2C: 11.70 cm2 LAESV A-L A2C: 27.34 ml LALs A2C: 4.25 | | | cm LAAs A4C: 15.34 cm2 LAESV A-L A4C: 38.61 ml LALs A4C: | | | 5.17 cm Ao Diam: 2.95 cm AV Cusp: 1.94 cm LA Diam: 3.01 cm | | | LA/Ao: 1.02 %FS: 33.07 % EDV(Teich): 93.02 ml EF(Teich): | | | 61.77 % ESV(Teich): 35.55 ml IVSd: 1.18 cm IVSs: 1.31 | | | cm LVIDd: 4.51 cm LVIDs: 3.01 cm LVPWd: 0.59 cm LVPWs: | | | 1.28 cm SV(Teich): 57.46 ml D-E Excursion: 2.11 cm E-F | | | [place]: 0.14 m/s IVC diameter: 2.19 cm IVC collapse: 1.56 cm | | | IVC % collapse: 26.37 % HR: 87.57 BPM AV maxP.95 | | | mmHg AV meanP.08 mmHg AV Vmax: 1.65 m/s AV Vmean: 1.16 | | | m/s AV VTI: 31.75 cm ADITHYA Vmax: 2.87 cm2 ADITHYA (VTI): 3.09 | | | cm2 LVCI Dopp: 3.61 l/minm2 LVCO Dopp: 8.73 l/min HR: | | | 88.92 BPM LVOT maxP.99 mmHg LVOT meanP.34 mmHg LVSI | | | Dopp: 40.59 ml/m2 LVSV Dopp: 98.24 ml LVOT Vmax: 1.41 m/s | | | LVOT Vmean: 0.98 m/s LVOT VTI: 29.18 cm MCO: 352.94 ms MV | | | A Cindy: 0.78 m/s MV DecT: 130.66 ms MV E Cindy: 1.10 m/s MV | | | E/A Ratio: 1.41 MV PHT: 45.74 ms MVA By PHT: 4.80 cm2 MV A | | | Dur: 103.80 ms Septal e': 0.09 m/s Septal E/e': 11.50 | | | Lateral e': 0.12 m/s Lateral E/e': 9.07 P Vein A: 0.21 m/s | | | P Vein A Dur: 89.96 ms P Vein D: 0.47 m/s P Vein S/D Ratio: | | | 0.98 P Vein S: 0.47 m/s HR: 87.57 BPM PV maxP.96 | | | mmHg PV meanP.21 mmHg PV Vmax: 0.99 m/s PV Vmean: 0.70 | | | m/s PV VTI: 22.05 cm RAP: 10 mmHg RVSP: 31.31 mmHg TR | | | maxP.31 mmHg TR Vmax: 2.30 m/s TV A Cindy: 0.56 m/s TV | | | Dec [place]: 4.82 m/s2 TV Dec Time: 116.68 ms TV E Cindy: 0.56 | | | m/s TV E/A Ratio: 1 Gift Wrapper: MARISA Authenticated by: Daina | | | Jimmy Alan MD Report Date/Time: 05-10-2013 18:08:33 | | + + + + + | Procedure Note | + + | Ermias Braxton - 11/20/2018 1:54 PM PDT Patient Name: Iron SALMON of | | : 1965 Performing Physician: Daina Alan | | INDICATIONS S | | HORTNESS OF BREATH, ACUTE RESPIRATORY FAILURE, CONCLUSIONS 1. Sinus rhythm.2. | | A 2-dimensional transthoracic echocardiogram with m-mode, spectral and color flow | | Doppler was perfomed.3. This was a technically adequate study.4. Overall left | | ventricular systolic function is normal with, an EF between 60 - 65 %.5. The left | | ventricle cavity size is normal.6. Left ventricular wall thickness is normal.7. The | | right ventricle is normal in size and function.8. The left atrium is normal in size.9. | | The right atrium is normal in size.10. The aortic valve is trileaflet, and appears | | anatomically normal. No aortic stenosis or regurgitation.11. The mitral valve is | | normal.12. Mild mitral regurgitation is present.13. The tricuspid valve appears | | structurally normal.14. Mild tricuspid regurgitation present.15. Right ventricular | | systolic pressure (pulmonary artery systolic pressure) is normal at < 35 mmHg.16. | | Pulmonic valve appears structurally normal.17. There is no pericardial effusion.18. The | | IVC is normal size (1.5-2.5cm) and collapses <50% with sniff, consistent with central | | venous pressures of 10-15mmHg. FINDINGS--------ECG rhythm: Sinus rhythm.Study: A | | 2-dimensional transthoracic echocardiogram with m-mode, spectral and color flow Doppler | | was perfomed.Study: This was a technically adequate study.Left Ventricle: Overall left | | ventricular systolic function is normal with, an EF between 60 - 65 %.Left Ventricle: | | The left ventricle cavity size is normal.Left Ventricle: Left ventricular wall thickness | | is normal.Right Ventricle: The right ventricle is normal in size and function.Left | | Atrium: The left atrium is normal in size.Right Atrium: The right atrium is normal in | | size.Aortic Valve: The aortic valve is trileaflet, and appears anatomically normal. No | | aortic stenosis or regurgitation.Mitral Valve: The mitral valve is normal.Mitral Valve: | | Mild mitral regurgitation is present.Tricuspid Valve: The tricuspid valve appears | | structurally normal.Tricuspid Valve: Mild tricuspid regurgitation present.Tricuspid | | Valve: Right ventricular systolic pressure (pulmonary artery systolic pressure) is | | normal at < 35 mmHg.Pulmonic Valve: Pulmonic valve appears structurally | | normal.Pericardium: There is no pericardial effusion.IVC/Hepatic Veins: The IVC is | | normal size (1.5-2.5cm) and collapses <50% with sniff, consistent with central venous | | pressures of 10-15mmHg.Thrombus: No clot visualized MEASUREMENTS IVC: 2.14 | | cmLA Major: 5.00 cmEDV(Teich): 106.82 mlIVSd: 1.43 cmLVIDd: 4.78 cmLVPWd: | | 1.08 cmLVOT Diam: 2.07 cm%FS: 36.61 %EF(Teich): 66.32 %ESV(Teich): 35.97 mlIVSs: | | 1.50 cmLVIDs: 3.03 cmLVPWs: 1.69 cmSV(Teich): 70.85 mlRA Major: 4.47 cmRVIDd: | | 3.05 cmLAESV(A-L): 35.85 mlLAESV Index (A-L): 14.81 ml/m2LAAs A2C: 11.70 | | [id number] A-L A2C: 27.34 mlLALs A2C: 4.25 cmLAAs A4C: 15.34 [id number] A-L A4C: | | 38.61 mlLALs A4C: 5.17 cmAo Diam: 2.95 cmAV Cusp: 1.94 cmLA Diam: 3.01 cmLA/Ao: | | 1.02%FS: 33.07 %EDV(Teich): 93.02 mlEF(Teich): 61.77 %ESV(Teich): 35.55 | | mlIVSd: 1.18 cmIVSs: 1.31 cmLVIDd: 4.51 cmLVIDs: 3.01 cmLVPWd: 0.59 cmLVPWs: | | 1.28 cmSV(Teich): 57.46 mlD-E [place]: 2.11 cmE-F [place]: 0.14 m/sIVC diameter: | | 2.19 cmIVC collapse: 1.56 cmIVC % collapse: 26.37 %HR: 87.57 BPMAV maxPG: | | 10.95 mmHgAV meanP.08 mmHgAV Vmax: 1.65 m/Dalia Vmean: 1.16 m/Dalia VTI: 31.75 | | cmAVA Vmax: 2.87 cm2AVA (VTI): 3.09 [id number] Dopp: 3.61 l/[id number] Dopp: 8.73 | | l/minHR: 88.92 BPMLVOT maxP.99 mmHgLVOT meanP.34 mmHgLVSI Dopp: 40.59 | | ml/m2LVSV Dopp: 98.24 mlLVOT Vmax: 1.41 m/sLVOT Vmean: 0.98 m/sLVOT VTI: 29.18 | | cmMCO: 352.94 msMV A Cindy: 0.78 m/sMV DecT: 130.66 msMV E [place]indy: 1.10 m/sMV E/A | | Ratio: 1.41MV PHT: 45.74 msMVA By PHT: 4.80 cm2MV A Dur: 103.80 msSeptal e': | | 0.09 m/sSeptal E/e': 11.50Lateral e': 0.12 m/sLateral E/e': 9.07P Vein A: 0.21 | | m/sP Vein A Dur: 89.96 msP Vein D: 0.47 m/sP Vein S/D Ratio: 0.98P Vein S: 0.47 | | m/sHR: 87.57 BPMPV maxP.96 mmHgPV meanP.21 mmHgPV Vmax: 0.99 m/sPV | | Vmean: 0.70 m/sPV VTI: 22.05 cmRAP: 10 mmHgRVSP: 31.31 mmHgTR maxP.31 | | mmHgTR Vmax: 2.30 m/sTV A [place]: 0.56 m/sTV Dec [place]: 4.82 m/s2TV Dec Time: | | 116.68 msTV E [place]: 0.56 m/sTV E/A Ratio: 1 Gift Wrapper: Bevted by: Daina | | Jimmy Alan MDReport Date/Time: 05-10-2013 18:08:33 IMPRESSION: 1. Sinus rhythm.2. A | | 2-dimensional transthoracic echocardiogram with m-mode, spectral and color flow Doppler | | was perfomed.3. This was a technically adequate study.4. Overall left ventricular | | systolic function is normal with, an EF between 60 - 65 %.5. The left ventricle cavity | | size is normal.6. Left ventricular wall thickness is normal.7. The right ventricle is | | normal in size and function.8. The left atrium is normal in size.9. The right atrium is | | normal in size.10. The aortic valve is trileaflet, and appears anatomically normal. No | | aortic stenosis or regurgitation.11. The mitral valve is normal.12. Mild mitral | | regurgitation is present.13. The tricuspid valve appears structurally normal.14. Mild | | tricuspid regurgitation present.15. Right ventricular systolic pressure (pulmonary | | artery systolic pressure) is normal at < 35 mmHg.16. Pulmonic valve appears structurally | | normal.17. There is no pericardial effusion.18. The IVC is normal size (1.5-2.5cm) and | | collapses <50% with sniff, consistent with central venous pressures of 10-15mmHg. | |IVSs: 1.50 cm | |LVIDs: 3.03 cm | |LVPWs: 1.69 cm | |SV(Teich): 70.85 ml | |RA Major: 4.47 cm | |RVIDd: 3.05 cm | |LAESV(A-L): 35.85 ml | |LAESV Index (A-L): 14.81 ml/m2 | |LAAs A2C: 11.70 cm2 | |LAESV A-L A2C: 27.34 ml | |LALs A2C: 4.25 cm | |LAAs A4C: 15.34 cm2 | |LAESV A-L A4C: 38.61 ml | |LALs A4C: 5.17 cm | |Ao Diam: 2.95 cm | |AV Cusp: 1.94 cm | |LA Diam: 3.01 cm | |LA/Ao: 1.02 | |%FS: 33.07 % | |EDV(Teich): 93.02 ml | |EF(Teich): 61.77 % | |ESV(Teich): 35.55 ml | |IVSd: 1.18 cm | |IVSs: 1.31 cm | |LVIDd: 4.51 cm | |LVIDs: 3.01 cm | |LVPWd: 0.59 cm | |LVPWs: 1.28 cm | |SV(Teich): 57.46 ml | |D-E [place]: 2.11 cm | |E-F [place]: 0.14 m/s | |IVC diameter: 2.19 cm | |IVC collapse: 1.56 cm | |IVC % collapse: 26.37 % | |HR: 87.57 BPM | |AV maxP.95 mmHg | |AV meanP.08 mmHg | |AV Vmax: 1.65 m/s | |AV Vmean: 1.16 m/s | |AV VTI: 31.75 cm | |ADITHYA Vmax: 2.87 cm2 | |ADITHYA (VTI): 3.09 cm2 | |LVCI Dopp: 3.61 l/minm2 | |LVCO Dopp: 8.73 l/min | |HR: 88.92 BPM | |LVOT maxP.99 mmHg | |LVOT meanP.34 mmHg | |LVSI Dopp: 40.59 ml/m2 | |LVSV Dopp: 98.24 ml | |LVOT Vmax: 1.41 m/s | |LVOT Vmean: 0.98 m/s | |LVOT VTI: 29.18 cm | |MCO: 352.94 ms | |MV A Cindy: 0.78 m/s | |MV DecT: 130.66 ms | |MV E Cindy: 1.10 m/s | |MV E/A Ratio: 1.41 | |MV PHT: 45.74 ms | |MVA By PHT: 4.80 cm2 | |MV A Dur: 103.80 ms | |Septal e': 0.09 m/s | |Septal E/e': 11.50 | |Lateral e': 0.12 m/s | |Lateral E/e': 9.07 | |P Vein A: 0.21 m/s | |P Vein A Dur: 89.96 ms | |P Vein D: 0.47 m/s | |P Vein S/D Ratio: 0.98 | |P Vein S: 0.47 m/s | |HR: 87.57 BPM | |PV maxP.96 mmHg | |PV meanP.21 mmHg | |PV Vmax: 0.99 m/s | |PV Vmean: 0.70 m/s | |PV VTI: 22.05 cm | |RAP: 10 mmHg | |RVSP: 31.31 mmHg | |TR maxP.31 mmHg | |TR Vmax: 2.30 m/s | |TV A Cindy: 0.56 m/s | |TV Dec [place]: 4.82 m/s2 | |TV Dec Time: 116.68 ms | |TV E Cindy: 0.56 m/s | |TV E/A Ratio: 1 | | | |Gift Wrapper: KVW | |Authenticated by: Daina Alan MD | |Report Date/Time: 05-10-2013 18:08:33 | | | |IMPRESSION: | |1. Sinus rhythm. | |2. A 2-dimensional transthoracic echocardiogram with m-mode, spectral and color flow Dopple r was perfomed. | |3. This was a technically adequate study. | |4. Overall left ventricular systolic function is normal with, an EF between 60 - 65 %. | |5. The left ventricle cavity size is normal. | |6. Left ventricular wall thickness is normal. | |7. The right ventricle is normal in size and function. | |8. The left atrium is normal in size. | |9. The right atrium is normal in size. | |10. The aortic valve is trileaflet, and appears anatomically normal. No aortic stenosis or regurgitation. | |11. The mitral valve is normal. | |12. Mild mitral regurgitation is present. | |13. The tricuspid valve appears structurally normal. | |14. Mild tricuspid regurgitation present. | |15. Right ventricular systolic pressure (pulmonary artery systolic pressure) is normal at < 35 mmHg. | |16. Pulmonic valve appears structurally normal. | |17. There is no pericardial effusion. | |18. The IVC is normal size (1.5-2.5cm) and collapses <50% with sniff, consistent with centr al venous pressures of 10-15mmHg. | + + POC Glucose (05/10/2013 6:20 AM PST) + + + + + + | Component | Value | Ref Range | Performed | Pathologist | | | | | At | Signature | + + + + + + | Glucose, | 169 (H)Comment: Testing | 65 - 99 mg/dL | EXTERNAL | | | Fingerstick | performed at [facility];[address] | | [address] | | | | [address];[place], [place] | | | | | | [address] | | | | + + + + + + + + | Specimen | + + | | + + + +---------+ + + | Performing | Address | City/State/Zipcode | Phone Number | | Organization | | | | + +---------+ + + | EXTERNAL LAB | | | | + +---------+ + + XR Chest 1 Vw (05/10/2013 5:22 AM PST) + + | Specimen | + + | | + + + + + | Impressions | Performed At | + + + | 1. Mild improvement of bilateral pulmonary infiltrates, now | | | moderate in degree, primarily in the lower lobes. 2. Satisfactory | | | position of life-support catheters. | | + + + + + + | Narrative | Performed At | + + + | GILMA SALMON XR CHEST 1 VIEW 05/10/2013 5:22 AM History: 47 | | | years. Female. Acute respiratory failure with ARDS. Followup | | | exam. Technique: AP portable upright technique was performed at | | | 0448 hours. Comparison: 05/09/13 Findings: Moderate alveolar | | | infiltrates are visualized in both lower lung robb. The upper lung | | | robb have improved, with decreasing infiltrates. The hemidiaphragms | | | are obscured bilaterally. The heart borders are partially obscured. | | | The air bronchograms in the lower lobes are mild. No visible pleural | | | effusion. The lung infiltrates are mildly improved as compared with | | | 05/09/13. The cardiac volume and contour are normal. The | | | pulmonary vasculature is normal, without dilatation. The pulmonary | | | brandie and mediastinal contours are normal. The thoracic aorta is | | | normal, without dilatation or calcification. The ossicles are | | | unremarkable. The tip of the endotracheal tube is at T4-T5. A | | | nasogastric tube is positioned in the stomach. | | + + + + + | Procedure Note | + + | Fox, Rad Conversion - 11/20/2018 1:53 PM PDT GILMA LIMASXR CHEST 1 VIEW05/10/2013 | | 5:22 AM History: 47 years. Female. Acute respiratory failure with ARDS. Followup | | exam. Technique: AP portable upright technique was performed at 0448 hours.Comparison: | | 05/09/13 Findings: Moderate alveolar infiltrates are visualized in both lower lung | | robb. The upper lung robb have improved, with decreasing infiltrates. The | | hemidiaphragms are obscured bilaterally. The heart borders are partially obscured. The | | air bronchograms in the lower lobes are mild. No visible pleural effusion. The lung | | infiltrates are mildly improved as compared with 05/09/13. The cardiac volume and | | contour are normal. The pulmonary vasculature is normal, without dilatation. The | | pulmonary brandie and mediastinal contours are normal. The thoracic aorta is normal, | | without dilatation or calcification. The ossicles are unremarkable. The tip of the | | endotracheal tube is at T4-T5. A nasogastric tube is positioned in the stomach. | | IMPRESSION: 1. Mild improvement of bilateral pulmonary infiltrates, now moderate in | | degree, primarily in the lower lobes.2. Satisfactory position of life-support | | catheters. | |The tip of the endotracheal tube is at T4-T5. A nasogastric tube is positioned in the stoma ch. | | | |IMPRESSION: | |1. Mild improvement of bilateral pulmonary infiltrates, now moderate in degree, primarily in the lower lobes. | |2. Satisfactory position of life-support catheters. | | | | | + + External Lab: CBC (05/10/2013 4:05 AM PST) + + + + + + | Component | Value | Ref Range | Performed | Pathologist | | | | | At | Signature | + + + + + + | WBC | 6.9Comment: Testing | 3.8 - 11.0 K/uL | EXTERNAL | | | | performed at [facility], [address] | | LAB | | | | [address], | | | | | | [place] [address] | | | | + + + + + + | Non- | 3.73Comment: Testing | 3.70 - 5.10 | EXTERNAL | | | Red Blood | performed at [facility], [address] | M/uL | LAB | | | Cells | [address], | | | | | Counted | [place] [address] | | | | + + + + + + | Hemoglobin | 10.6 (L)Comment: Testing | 11.3 - 15.5 | EXTERNAL | | | | performed at [facility], [address] | g/dL | LAB | | | | [address], | | | | | | [place] [address] | | | | + + + + + + | Hematocrit, | 30.5 (L)Comment: Testing | 34.0 - 46.0 % | EXTERNAL | | | POC | performed at [facility], [address] | | LAB | | | | [address], | | | | | | [place] [address] | | | | + + + + + + | MCV | 81.8Comment: Testing | 80.0 - 100.0 fl | EXTERNAL | | | | performed at [facility], [address] | | LAB | | | | [address], | | | | | | [place] [address] | | | | + + + + + + | MCH | 28.4Comment: Testing | 27.0 - 34.0 pg | EXTERNAL | | | | performed at [facility], [address] | | LAB | | | | [address], | | | | | | [place] [address] | | | | + + + + + + | MCHC | 34.7Comment: Testing | 32.0 - 35.5 | EXTERNAL | | | | performed at [facility], [address] | g/dL | LAB | | | | [address], | | | | | | [place] [address] | | | | + + + + + + | RDW-CV | 41.1Comment: Testing | 37 - 53 fl | EXTERNAL | | | | performed at [facility], [address] | | LAB | | | | [address], | | | | | | [place] [address] | | | | + + + + + + | Platelet | 360Comment: Testing | 150 - 400 K/uL | EXTERNAL | | | Count | performed at [facility], [address] | | LAB | | | Plasma | [address], | | | | | | [place] [address] | | | | + + + + + + | MPV | 7.5Comment: Testing | fl | EXTERNAL | | | | performed at [facility], [address] | | LAB | | | | [address], | | | | | | [place] [address] | | | | + + + + + + | Differentia | AUTOMATEDComment: | | EXTERNAL | | | l Type | Testing performed at | | LAB | | | | [facility], [address] | | | | | | [place] | | | | | | [address] | | | | + + + + + + | % Segmented | 69.9 | % | EXTERNAL | | | | | | LAB | | | Neutrophils | | | | | + + + + + + | % | 17.4 | % | EXTERNAL | | | Lymphocytes | | | LAB | | + + + + + + | % Monocytes | 11.0 | % | EXTERNAL | | | | | | LAB | | + + + + + + | % | 1.2 | % | EXTERNAL | | | Eosinophils | | | LAB | | + + + + + + | % Basophils | 0.5 | % | EXTERNAL | | | | | | LAB | | + + + + + + | Absolute | 4.8 | 1.9 - 7.4 K/uL | EXTERNAL | | | Segmented | | | LAB | | | Neutrophils | | | | | + + + + + + | Absolute | 1.2 | 1.0 - 3.9 K/uL | EXTERNAL | | | Lymphocytes | | | LAB | | + + + + + + | Absolute | 0.8 | 0 - 0.8 K/uL | EXTERNAL | | | Monocytes | | | LAB | | + + + + + + | Absolute | 0.1 | 0 - 0.5 K/uL | EXTERNAL | | | Eosinophils | | | LAB | | + + + + + + | Absolute | 0.0 | 0 - 0.1 K/uL | EXTERNAL | | | Basophils | | | LAB | | + + + + + + + + | Specimen | + + | Blood specimen | | (specimen) | + + + +---------+ + + | Performing | Address | City/State/Zipcode | Phone Number | | Organization | | | | + +---------+ + + | EXTERNAL LAB | | | | + +---------+ + + Basic Metabolic Panel (05/10/2013 4:05 AM PST) + + + + + + | Component | Value | Ref Range | Performed | Pathologist | | | | | At | Signature | + + + + + + | Na | 130 (L)Comment: Testing | 135 - 143 | EXTERNAL | | | | performed at [facility], [address] | mmol/L | LAB | | | | [address], | | | | | | [place] [address] | | | | + + + + + + | K | 3.6Comment: Testing | 3.5 - 4.9 | EXTERNAL | | | | performed at [facility], [address] | mmol/L | LAB | | | | [address], | | | | | | [place] [address] | | | | + + + + + + | Cl | 100Comment: Testing | 99 - 109 mmol/L | EXTERNAL | | | | performed at [facility], [address] | | LAB | | | | [address], | | | | | | [place] [address] | | | | + + + + + + | CO2 | 25Comment: Testing | 23 - 32 mmol/L | EXTERNAL | | | | performed at [facility], [address] | | LAB | | | | [address], | | | | | | [place] [address] | | | | + + + + + + | Anion Gap | 9Comment: Testing | 5 - 20 mmol/L | EXTERNAL | | | | performed at [facility], [address] | | LAB | | | | [address], | | | | | | [place] [address] | | | | + + + + + + | Glucose, | 144 (H)Comment: Testing | 65 - 99 mg/dL | EXTERNAL | | | Fasting | performed at [facility], [address] | | LAB | | | | [address], | | | | | | [place] [address] | | | | + + + + + + | BUN | 15Comment: Testing | 8 - 25 mg/dL | EXTERNAL | | | | performed at [facility], [address] | | LAB | | | | [address], | | | | | | [place] [address] | | | | + + + + + + | Creatinine | 0.39 (L)Comment: Testing | 0.50 - 1.00 | EXTERNAL | | | | performed at [facility], [address] | mg/dL | LAB | | | | [address], | | | | | | [place] [address] | | | | + + + + + + | BUN/Creatin | 38Comment: Testing | | EXTERNAL | | | ine Ratio | performed at [facility], [address] | | LAB | | | | [address], | | | | | | [place] [address] | | | | + + + + + + | Calcium | 8.0 (L)Comment: Testing | 8.5 - 10.2 | EXTERNAL | | | | performed at [facility], [address] | mg/dL | LAB | | | | [address], | | | | | | [place] [address] | | | | + + + + + + | Estimated | >60Comment: GFR <60: | mL/min/1.73m2 | EXTERNAL | | | GFR | CHRONIC KIDNEY DISEASE, | | LAB | | | | IF FOUND OVER A 3 MONTH | | | | | | PERIOD.GFR <15: KIDNEY | | | | | | FAILURE.FOR | | | | | | AMERICANS, MULTIPLY THE | | | | | | CALCULATED GFR BY | | | | | | 1.210.Testing performed | | | | | | at [facility], [address] | | | | | | [address], | | | | | | [place] [address] | | | | + + + + + + + + | Specimen | + + | Blood specimen | | (specimen) | + + + +---------+ + + | Performing | Address | City/State/Zipcode | Phone Number | | Organization | | | | + +---------+ + + | EXTERNAL LAB | | | | + +---------+ + + POC Glucose (05/09/2013 11:59 PM PST) + + + + + + | Component | Value | Ref Range | Performed | Pathologist | | | | | At | Signature | + + + + + + | Glucose, | 163 (H)Comment: Testing | 65 - 99 mg/dL | EXTERNAL | | | Fingerstick | performed at [facility];[address] | | LAB | | | | [address];[place], [place] | | | | | | [address] | | | | + + + + + + + + | Specimen | + + | | + + + +---------+ + + | Performing | Address | City/State/Zipcode | Phone Number | | Organization | | | | + +---------+ + + | EXTERNAL LAB | | | | + +---------+ + + Potassium (05/09/2013 6:16 PM PST) + + + + + + | Component | Value | Ref Range | Performed | Pathologist | | | | | At | Signature | + + + + + + | K | 4.0Comment: Testing | 3.5 - 4.9 | EXTERNAL | | | | performed at [facility];[address] | mmol/L | LAB | | | | [address];[place] | | | | | | [address] | | | | + + + + + + + + | Specimen | + + | Blood specimen | | (specimen) | + + + +---------+ + + | Performing | Address | City/State/Zipcode | Phone Number | | Organization | | | | + +---------+ + + | EXTERNAL LAB | | | | + +---------+ + + Phosphorus (05/09/2013 6:16 PM PST) + + + + + + | Component | Value | Ref Range | Performed | Pathologist | | | | | At | Signature | + + + + + + | PHOSPHORUS | 2.9Comment: Testing | 2.3 - 4.8 mg/dL | EXTERNAL | | | | performed at [facility];[address] | | LAB | | | | [address];[place], [place] | | | | | | [address] | | | | + + + + + + + + | Specimen | + + | Blood specimen | | (specimen) | + + + +---------+ + + | Performing | Address | City/State/Zipcode | Phone Number | | Organization | | | | + +---------+ + + | EXTERNAL LAB | | | | + +---------+ + + Magnesium (05/09/2013 6:16 PM PST) + + + + + + | Component | Value | Ref Range | Performed | Pathologist | | | | | At | Signature | + + + + + + | Magnesium | 2.1Comment: Testing | 1.7 - 2.4 mg/dL | EXTERNAL | | | | performed at [facility] | | LAB | | | | [address];[place] | | | | | | [address] | | | | + + + + + + + + | Specimen | + + | Blood specimen | | (specimen) | + + + +---------+ + + | Performing | Address | City/State/Zipcode | Phone Number | | Organization | | | | + +---------+ + + | EXTERNAL LAB | | | | + +---------+ + + POC Glucose (05/09/2013 5:41 PM PST) + + + + + + | Component | Value | Ref Range | Performed | Pathologist | | | | | At | Signature | + + + + + + | Glucose, | 152 (H)Comment: Testing | 65 - 99 mg/dL | EXTERNAL | | | Fingerstick | performed at [facility];[address] | | LAB | | | | [address];[place] | | | | | | [address] | | | | + + + + + + + + | Specimen | + + | | + + + +---------+ + + | Performing | Address | City/State/Zipcode | Phone Number | | Organization | | | | + +---------+ + + | EXTERNAL LAB | | | | + +---------+ + + POC Glucose (05/09/2013 11:23 AM PST) + + + + + + | Component | Value | Ref Range | Performed | Pathologist | | | | | At | Signature | + + + + + + | Glucose, | 191 (H)Comment: Testing | 65 - 99 mg/dL | EXTERNAL | | | Fingerstick | performed at [facility];[address] | | LAB | | | | [address];[place] | | | | | | [address] | | | | + + + + + + + + | Specimen | + + | | + + + +---------+ + + | Performing | Address | City/State/Zipcode | Phone Number | | Organization | | | | + +---------+ + + | EXTERNAL LAB | | | | + +---------+ + + Potassium (05/09/2013 11:23 AM PST) + + + + + + | Component | Value | Ref Range | Performed | Pathologist | | | | | At | Signature | + + + + + + | K | 3.9Comment: Testing | 3.5 - 4.9 | EXTERNAL | | | | performed at [facility];[address] | mmol/L | LAB | | | | [address];[place], [place] | | | | | | [id number] | | | | + + + + + + + + | Specimen | + + | Blood specimen | | (specimen) | + + + +---------+ + + | Performing | Address | City/State/Zipcode | Phone Number | | Organization | | | | + +---------+ + + | EXTERNAL LAB | | | | + +---------+ + + Phosphorus (05/09/2013 11:23 AM PST) + + + + + + | Component | Value | Ref Range | Performed | Pathologist | | | | | At | Signature | + + + + + + | PHOSPHORUS | 2.8Comment: Testing | 2.3 - 4.8 mg/dL | EXTERNAL | | | | performed at [facility] | | LAB | | | | [address];[place] | | | | | | [id number] | | | | + + + + + + + + | Specimen | + + | Blood specimen | | (specimen) | + + + +---------+ + + | Performing | Address | City/State/Zipcode | Phone Number | | Organization | | | | + +---------+ + + | EXTERNAL LAB | | | | + +---------+ + + Magnesium (05/09/2013 11:23 AM PST) + + + + + + | Component | Value | Ref Range | Performed | Pathologist | | | | | At | Signature | + + + + + + | Magnesium | 1.6 (L)Comment: Testing | 1.7 - 2.4 mg/dL | EXTERNAL | | | | performed at [facility];[address] | | LAB | | | | [address];[place] | | | | | | [address] | | | | + + + + + + + + | Specimen | + + | Blood specimen | | (specimen) | + + + +---------+ + + | Performing | Address | City/State/Zipcode | Phone Number | | Organization | | | | + +---------+ + + | EXTERNAL LAB | | | | + +---------+ + + POC Glucose (05/09/2013 5:33 AM PST) + + + + + + | Component | Value | Ref Range | Performed | Pathologist | | | | | At | Signature | + + + + + + | Glucose, | 171 (H)Comment: Testing | 65 - 99 mg/dL | EXTERNAL | | | Fingerstick | performed at [facility];[address] | | LAB | | | | [address];[place], [place] | | | | | | [address] | | | | + + + + + + + + | Specimen | + + | | + + + +---------+ + + | Performing | Address | City/State/Zipcode | Phone Number | | Organization | | | | + +---------+ + + | EXTERNAL LAB | | | | + +---------+ + + XR Chest 1 Vw (05/09/2013 5:21 AM PST) + + | Specimen | + + | | + + + + + | Impressions | Performed At | + + + | 1. Persistent moderate bilateral alveolar pulmonary infiltrates | | | consistent with the clinical diagnosis of ARDS, unchanged as compared | | | with 05/08/13. 2. Satisfactory position of life-support catheters. | | | | | + + + + + + | Narrative | Performed At | + + + | GIL[facility] SALMON XR CHEST 1 VIEW 05/09/2013 5:21 AM History: 47 | | | years. Female. Acute respiratory failure with ARDS. Followup | | | exam. Technique: AP portable upright technique was performed at | | | 0457 hours. Comparison: 05/08/13 Findings: Moderate alveolar | | | infiltrates are visualized throughout the lower lung robb with mild | | | air bronchograms. The left hemidiaphragm is completely obscured. The | | | right hemidiaphragm is partially obscured. The most dense | | | consolidation is visualized at the left lung base. No obvious | | | pleural effusion. The inspiratory effort is moderate. The cardiac | | | volume is normal for body habitus. The pulmonary vasculature is | | | obscured. The tip of the endotracheal tube is at T4-T5. A | | | nasogastric tube is positioned in the stomach. A RIGHT brachial | | | central venous PICC line is present with the tip at the junction of | | | The superior vena cava and right atrium, in good position. | | + + + + + | Procedure Note | + + | Fox, Rad Conversion - 11/20/2018 1:53 PM PDT GILMA SALMONXR CHEST 1 VIEW05/09/2013 | | 5:21 AM History: 47 years. Female. Acute respiratory failure with ARDS. Followup | | exam. Technique: AP portable upright technique was performed at 0457 hours.Comparison: | | 05/08/13 Findings: Moderate alveolar infiltrates are visualized throughout the lower | | lung robb with mild air bronchograms. The left hemidiaphragm is completely obscured. | | The right hemidiaphragm is partially obscured. The most dense consolidation is | | visualized at the left lung base. No obvious pleural effusion. The inspiratory effort is | | moderate. The cardiac volume is normal for body habitus. The pulmonary vasculature is | | obscured. The tip of the endotracheal tube is at T4-T5. A nasogastric tube is positioned | | in the stomach. A RIGHT brachial central venous PICC line is present with the tip at | | the junction of The superior vena cava and right atrium, in good position. IMPRESSION: | | 1. Persistent moderate bilateral alveolar pulmonary infiltrates consistent with the | | clinical diagnosis of ARDS, unchanged as compared with 05/08/13.2. Satisfactory | | position of life-support catheters. Electronically signed by Geronimo Lovett MD on | | 05/09/2013 7:25 AM | |IMPRESSION: | |1. Persistent moderate bilateral alveolar pulmonary infiltrates consistent with the clinic al diagnosis of ARDS, unchanged as compared with 05/08/13. | |2. Satisfactory position of life-support catheters. | | | | | + + External Lab: CBC (05/09/2013 4:41 AM PST) + + + + + + | Component | Value | Ref Range | Performed | Pathologist | | | | | At | Signature | + + + + + + | WBC | 7.7Comment: Testing | 3.8 - 11.0 K/uL | EXTERNAL | | | | performed at [facility];[address] | | LAB | | | | [address];[place], [place] | | | | | | [address] | | | | + + + + + + | Non- | 3.95Comment: Testing | 3.70 - 5.10 | EXTERNAL | | | Red Blood | performed at [facility];[address] | M/uL | LAB | | | Cells | [address];[place] | | | | | Counted | [id number] | | | | + + + + + + | Hemoglobin | 10.9 (L)Comment: Testing | 11.3 - 15.5 | EXTERNAL | | | | performed at [facility];[address] | g/dL | LAB | | | | [address];[place] | | | | | | [address] | | | | + + + + + + | Hematocrit, | 32.0 (L)Comment: Testing | 34.0 - 46.0 % | EXTERNAL | | | POC | performed at [facility];[address] | | LAB | | | | [address];[place] | | | | | | [address] | | | | + + + + + + | MCV | 81.0Comment: Testing | 80.0 - 100.0 fl | EXTERNAL | | | | performed at [facility];[address] | | LAB | | | | [address];[place] | | | | | | [address] | | | | + + + + + + | MCH | 27.7Comment: Testing | 27.0 - 34.0 pg | EXTERNAL | | | | performed at [facility];[address] | | LAB | | | | [address];[place] | | | | | | [address] | | | | + + + + + + | MCHC | 34.2Comment: Testing | 32.0 - 35.5 | EXTERNAL | | | | performed at [facility];[address] | g/dL | LAB | | | | [address];[place] | | | | | | [address] | | | | + + + + + + | RDW-CV | 42.9Comment: Testing | 37 - 53 fl | EXTERNAL | | | | performed at [facility];[address] | | LAB | | | | [address];[place] | | | | | | [address] | | | | + + + + + + | Platelet | 363Comment: Testing | 150 - 400 K/uL | EXTERNAL | | | Count | performed at [facility];[address] | | LAB | | | Plasma | [address];[place] | | | | | | [address] | | | | + + + + + + | MPV | 7.1Comment: Testing | fl | EXTERNAL | | | | performed at [facility];[address] | | LAB | | | | [address];[place] | | | | | | [address] | | | | + + + + + + | Differentia | AUTOMATEDComment: | | EXTERNAL | | | l Type | Testing performed at | | LAB | | | | [facility];[address];[place] [address] | | | | + + + + + + | % Segmented | 68.0 | % | EXTERNAL | | | | | | LAB | | | Neutrophils | | | | | + + + + + + | % | 20.7 | % | EXTERNAL | | | Lymphocytes | | | LAB | | + + + + + + | % Monocytes | 10.0 | % | EXTERNAL | | | | | | LAB | | + + + + + + | % | 0.9 | % | EXTERNAL | | | Eosinophils | | | LAB | | + + + + + + | % Basophils | 0.4 | % | EXTERNAL | | | | | | LAB | | + + + + + + | Absolute | 5.2 | 1.9 - 7.4 K/uL | EXTERNAL | | | Segmented | | | LAB | | | Neutrophils | | | | | + + + + + + | Absolute | 1.6 | 1.0 - 3.9 K/uL | EXTERNAL | | | Lymphocytes | | | LAB | | + + + + + + | Absolute | 0.8 | 0 - 0.8 K/uL | EXTERNAL | | | Monocytes | | | LAB | | + + + + + + | Absolute | 0.1 | 0 - 0.5 K/uL | EXTERNAL | | | Eosinophils | | | LAB | | + + + + + + | Absolute | 0.0 | 0 - 0.1 K/uL | EXTERNAL | | | Basophils | | | LAB | | + + + + + + + + | Specimen | + + | Blood specimen | | (specimen) | + + + +---------+ + + | Performing | Address | City/State/Zipcode | Phone Number | | Organization | | | | + +---------+ + + | EXTERNAL LAB | | | | + +---------+ + + Phosphorus (05/09/2013 4:41 AM PST) + + + + + + | Component | Value | Ref Range | Performed | Pathologist | | | | | At | Signature | + + + + + + | PHOSPHORUS | 3.0Comment: Testing | 2.3 - 4.8 mg/dL | EXTERNAL | | | | performed at [facility] | | LAB | | | | [address] [facility];[place], [place] | | | | | | [address] | | | | + + + + + + + + | Specimen | + + | Blood specimen | | (specimen) | + + + +---------+ + + | Performing | Address | City/State/Zipcode | Phone Number | | Organization | | | | + +---------+ + + | EXTERNAL LAB | | | | + +---------+ + + Magnesium (05/09/2013 4:41 AM PST) + + + + + + | Component | Value | Ref Range | Performed | Pathologist | | | | | At | Signature | + + + + + + | Magnesium | 1.9Comment: Testing | 1.7 - 2.4 mg/dL | EXTERNAL | | | | performed at [facility];[address] | | LAB | | | | [address];[place], [place] | | | | | | [address] | | | | + + + + + + + + | Specimen | + + | Blood specimen | | (specimen) | + + + +---------+ + + | Performing | Address | City/State/Zipcode | Phone Number | | Organization | | | | + +---------+ + + | EXTERNAL LAB | | | | + +---------+ + + Basic Metabolic Panel (05/09/2013 4:41 AM PST) + + + + + + | Component | Value | Ref Range | Performed | Pathologist | | | | | At | Signature | + + + + + + | Na | 137Comment: Testing | 135 - 143 | EXTERNAL | | | | performed at [facility];[address] | mmol/L | LAB | | | | [address];[place] | | | | | | [address] | | | | + + + + + + | K | 3.9Comment: Testing | 3.5 - 4.9 | EXTERNAL | | | | performed at [facility];[address] | mmol/L | LAB | | | | [address];[place] | | | | | | [address] | | | | + + + + + + | Cl | 106Comment: Testing | 99 - 109 mmol/L | EXTERNAL | | | | performed at [facility];[address] | | LAB | | | | [address];[place] | | | | | | [address] | | | | + + + + + + | CO2 | 26Comment: Testing | 23 - 32 mmol/L | EXTERNAL | | | | performed at [facility];[address] | | LAB | | | | [address];[place] | | | | | | [address] | | | | + + + + + + | Anion Gap | 10Comment: Testing | 5 - 20 mmol/L | EXTERNAL | | | | performed at [facility];[address] | | LAB | | | | [address];[place] | | | | | | [address] | | | | + + + + + + | Glucose, | 160 (H)Comment: Testing | 65 - 99 mg/dL | EXTERNAL | | | Fasting | performed at [facility];[address] | | LAB | | | | [address];[place] | | | | | | [address] | | | | + + + + + + | BUN | 16Comment: Testing | 8 - 25 mg/dL | EXTERNAL | | | | performed at [facility];[address] | | LAB | | | | [address];[place] | | | | | | [address] | | | | + + + + + + | Creatinine | 0.61Comment: Testing | 0.50 - 1.00 | EXTERNAL | | | | performed at [facility];[address] | mg/dL | LAB | | | | [address];[place] | | | | | | [address] | | | | + + + + + + | BUN/Creatin | 26Comment: Testing | | EXTERNAL | | | ine Ratio | performed at [facility];[address] | | LAB | | | | [address];[place] | | | | | | [address] | | | | + + + + + + | Calcium | 8.1 (L)Comment: Testing | 8.5 - 10.2 | EXTERNAL | | | | performed at [facility];[address] | mg/dL | LAB | | | | [address];[place] | | | | | | [address] | | | | + + + + + + | Estimated | >60Comment: GFR <60: | mL/min/1.73m2 | EXTERNAL | | | GFR | CHRONIC KIDNEY DISEASE, | | LAB | | | | IF FOUND OVER A 3 MONTH | | | | | | PERIOD.GFR <15: KIDNEY | | | | | | FAILURE.FOR | | | | | | AMERICANS, MULTIPLY THE | | | | | | CALCULATED GFR BY | | | | | | 1.210.Testing performed | | | | | | at [facility];[address];[place] [address] | | | | + + + + + + + + | Specimen | + + | Blood specimen | | (specimen) | + + + +---------+ + + | Performing | Address | City/State/Zipcode | Phone Number | | Organization | | | | + +---------+ + + | EXTERNAL LAB | | | | + +---------+ + + POC Glucose (05/08/2013 11:22 PM PST) + + + + + + | Component | Value | Ref Range | Performed | Pathologist | | | | | At | Signature | + + + + + + | Glucose, | 169 (H)Comment: Testing | 65 - 99 mg/dL | EXTERNAL | | | Fingerstick | performed at [facility];[address] | | LAB | | | | [address];[place], [place] | | | | | | [address] | | | | + + + + + + + + | Specimen | + + | | + + + +---------+ + + | Performing | Address | City/State/Zipcode | Phone Number | | Organization | | | | + +---------+ + + | EXTERNAL LAB | | | | + +---------+ + + POC Glucose (05/08/2013 5:59 PM PST) + + + + + + | Component | Value | Ref Range | Performed | Pathologist | | | | | At | Signature | + + + + + + | Glucose, | 164 (H)Comment: Testing | 65 - 99 mg/dL | EXTERNAL | | | Fingerstick | performed at [facility] | | LAB | | | | [address];[place], [place] | | | | | | [address] | | | | + + + + + + + + | Specimen | + + | | + + + +---------+ + + | Performing | Address | City/State/Zipcode | Phone Number | | Organization | | | | + +---------+ + + | EXTERNAL LAB | | | | + +---------+ + + Potassium (05/08/2013 4:08 PM PST) + + + + + + | Component | Value | Ref Range | Performed | Pathologist | | | | | At | Signature | + + + + + + | K | 4.3Comment: Testing | 3.5 - 4.9 | EXTERNAL | | | | performed at [facility];[address] | mmol/L | LAB | | | | [address];[place], [place] | | | | | | [address] | | | | + + + + + + + + | Specimen | + + | Blood specimen | | (specimen) | + + + +---------+ + + | Performing | Address | City/State/Zipcode | Phone Number | | Organization | | | | + +---------+ + + | EXTERNAL LAB | | | | + +---------+ + + POC Glucose (05/08/2013 11:58 AM PST) + + + + + + | Component | Value | Ref Range | Performed | Pathologist | | | | | At | Signature | + + + + + + | Glucose, | 163 (H)Comment: Testing | 65 - 99 mg/dL | EXTERNAL | | | Fingerstick | performed at [facility];[address] | | LAB | | | | [address];[place], [place] | | | | | | [address] | | | | + + + + + + + + | Specimen | + + | | + + + +---------+ + + | Performing | Address | City/State/Zipcode | Phone Number | | Organization | | | | + +---------+ + + | EXTERNAL LAB | | | | + +---------+ + + Potassium (05/08/2013 10:37 AM PST) + + + + + + | Component | Value | Ref Range | Performed | Pathologist | | | | | At | Signature | + + + + + + | K | 3.9Comment: Testing | 3.5 - 4.9 | EXTERNAL | | | | performed at [facility];[address] | mmol/L | LAB | | | | [address];[place], [place] | | | | | | [address] | | | | + + + + + + + + | Specimen | + + | Blood specimen | | (specimen) | + + + +---------+ + + | Performing | Address | City/State/Zipcode | Phone Number | | Organization | | | | + +---------+ + + | EXTERNAL LAB | | | | + +---------+ + + Phosphorus (05/08/2013 10:37 AM PST) + + + + + + | Component | Value | Ref Range | Performed | Pathologist | | | | | At | Signature | + + + + + + | PHOSPHORUS | 2.5Comment: Testing | 2.3 - 4.8 mg/dL | EXTERNAL | | | | performed at [facility];[address] | | LAB | | | | [address];[place], [place] | | | | | | [address] | | | | + + + + + + + + | Specimen | + + | Blood specimen | | (specimen) | + + + +---------+ + + | Performing | Address | City/State/Zipcode | Phone Number | | Organization | | | | + +---------+ + + | EXTERNAL LAB | | | | + +---------+ + + Magnesium (05/08/2013 10:37 AM PST) + + + + + + | Component | Value | Ref Range | Performed | Pathologist | | | | | At | Signature | + + + + + + | Magnesium | 1.8Comment: Testing | 1.7 - 2.4 mg/dL | EXTERNAL | | | | performed at [facility];[address] | | LAB | | | | [address];[place], [place] | | | | | | [address] | | | | + + + + + + + + | Specimen | + + | Blood specimen | | (specimen) | + + + +---------+ + + | Performing | Address | City/State/Zipcode | Phone Number | | Organization | | | | + +---------+ + + | EXTERNAL LAB | | | | + +---------+ + + External Lab: CBC (05/08/2013 5:51 AM PST) + + + + + + | Component | Value | Ref Range | Performed | Pathologist | | | | | At | Signature | + + + + + + | WBC | 6.9Comment: Testing | 3.8 - 11.0 K/uL | EXTERNAL | | | | performed at [facility] | | LAB | | | | [address];[place] | | | | | | [address] | | | | + + + + + + | Non- | 4.07Comment: Testing | 3.70 - 5.10 | EXTERNAL | | | Red Blood | performed at [facility];[address] | M/uL | LAB | | | Cells | [address];[place] | | | | | Counted | [id number] | | | | + + + + + + | Hemoglobin | 11.1 (L)Comment: Testing | 11.3 - 15.5 | EXTERNAL | | | | performed at [facility];[address] | g/dL | LAB | | | | [address];[place] | | | | | | [address] | | | | + + + + + + | Hematocrit, | 32.9 (L)Comment: Testing | 34.0 - 46.0 % | EXTERNAL | | | POC | performed at [facility];[address] | | LAB | | | | [address];[place] | | | | | | [address] | | | | + + + + + + | MCV | 80.8Comment: Testing | 80.0 - 100.0 fl | EXTERNAL | | | | performed at [facility];[address] | | LAB | | | | [address];[place] | | | | | | [address] | | | | + + + + + + | MCH | 27.3Comment: Testing | 27.0 - 34.0 pg | EXTERNAL | | | | performed at [facility];[address] | | LAB | | | | [address];[place] | | | | | | [address] | | | | + + + + + + | MCHC | 33.8Comment: Testing | 32.0 - 35.5 | EXTERNAL | | | | performed at [facility];[address] | g/dL | LAB | | | | [address];[place] | | | | | | [address] | | | | + + + + + + | RDW-CV | 41.1Comment: Testing | 37 - 53 fl | EXTERNAL | | | | performed at [facility];[address] | | LAB | | | | [address];[place] | | | | | | [address] | | | | + + + + + + | Platelet | 307Comment: Testing | 150 - 400 K/uL | EXTERNAL | | | Count | performed at [facility];[address] | | LAB | | | Plasma | [address];[place] | | | | | | [address] | | | | + + + + + + | MPV | 7.5Comment: Testing | fl | EXTERNAL | | | | performed at [facility];[address] | | LAB | | | | [address];[place] | | | | | | [address] | | | | + + + + + + | Differentia | AUTOMATEDComment: | | EXTERNAL | | | l Type | Testing performed at | | LAB | | | | [facility];[address];[place] [address] | | | | + + + + + + | % Segmented | 63.8 | % | EXTERNAL | | | | | | LAB | | | Neutrophils | | | | | + + + + + + | % | 24.3 | % | EXTERNAL | | | Lymphocytes | | | LAB | | + + + + + + | % Monocytes | 10.7 | % | EXTERNAL | | | | | | LAB | | + + + + + + | % | 0.7 | % | EXTERNAL | | | Eosinophils | | | LAB | | + + + + + + | % Basophils | 0.5 | % | EXTERNAL | | | | | | LAB | | + + + + + + | Absolute | 4.4 | 1.9 - 7.4 K/uL | EXTERNAL | | | Segmented | | | LAB | | | Neutrophils | | | | | + + + + + + | Absolute | 1.7 | 1.0 - 3.9 K/uL | EXTERNAL | | | Lymphocytes | | | LAB | | + + + + + + | Absolute | 0.7 | 0 - 0.8 K/uL | EXTERNAL | | | Monocytes | | | LAB | | + + + + + + | Absolute | 0.1 | 0 - 0.5 K/uL | EXTERNAL | | | Eosinophils | | | LAB | | + + + + + + | Absolute | 0.0 | 0 - 0.1 K/uL | EXTERNAL | | | Basophils | | | LAB | | + + + + + + + + | Specimen | + + | Blood specimen | | (specimen) | + + + +---------+ + + | Performing | Address | City/State/Zipcode | Phone Number | | Organization | | | | + +---------+ + + | EXTERNAL LAB | | | | + +---------+ + + Phosphorus (05/08/2013 5:51 AM PST) + + + + + + | Component | Value | Ref Range | Performed | Pathologist | | | | | At | Signature | + + + + + + | PHOSPHORUS | 2.6Comment: Testing | 2.3 - 4.8 mg/dL | EXTERNAL | | | | performed at [facility];[address] | | LAB | | | | [address];[place], [place] | | | | | | [address] | | | | + + + + + + + + | Specimen | + + | Blood specimen | | (specimen) | + + + +---------+ + + | Performing | Address | City/State/Zipcode | Phone Number | | Organization | | | | + +---------+ + + | EXTERNAL LAB | | | | + +---------+ + + Magnesium (05/08/2013 5:51 AM PST) + + + + + + | Component | Value | Ref Range | Performed | Pathologist | | | | | At | Signature | + + + + + + | Magnesium | 1.8Comment: SLT | 1.7 - 2.4 mg/dL | EXTERNAL | | | | HEMOLYSISTesting | | LAB | | | | performed at [facility] | | | | | | [address];[place] | | | | | | [address] | | | | + + + + + + + + | Specimen | + + | Blood specimen | | (specimen) | + + + +---------+ + + | Performing | Address | City/State/Zipcode | Phone Number | | Organization | | | | + +---------+ + + | EXTERNAL LAB | | | | + +---------+ + + Basic Metabolic Panel (05/08/2013 5:51 AM PST) + + + + + + | Component | Value | Ref Range | Performed | Pathologist | | | | | At | Signature | + + + + + + | Na | 138Comment: Testing | 135 - 143 | EXTERNAL | | | | performed at [facility];[address] | mmol/L | LAB | | | | [address];[place] | | | | | | [address] | | | | + + + + + + | K | 3.7Comment: SLT | 3.5 - 4.9 | EXTERNAL | | | | HEMOLYSISTesting | mmol/L | LAB | | | | performed at [facility];[address] | | | | | | [address];[place] | | | | | | [address] | | | | + + + + + + | Cl | 106Comment: Testing | 99 - 109 mmol/L | EXTERNAL | | | | performed at [facility];[address] | | LAB | | | | [address];[place] | | | | | | [address] | | | | + + + + + + | CO2 | 26Comment: Testing | 23 - 32 mmol/L | EXTERNAL | | | | performed at [facility];[address] | | LAB | | | | [address];[place] | | | | | | [address] | | | | + + + + + + | Anion Gap | 10Comment: Testing | 5 - 20 mmol/L | EXTERNAL | | | | performed at [facility];[address] | | LAB | | | | [address];[place] | | | | | | [address] | | | | + + + + + + | Glucose, | 179 (H)Comment: Testing | 65 - 99 mg/dL | EXTERNAL | | | Fasting | performed at [facility];[address] | | LAB | | | | [address];[place] | | | | | | [address] | | | | + + + + + + | BUN | 16Comment: Testing | 8 - 25 mg/dL | EXTERNAL | | | | performed at [facility];[address] | | LAB | | | | [address];[place] | | | | | | [address] | | | | + + + + + + | Creatinine | 0.62Comment: Testing | 0.50 - 1.00 | EXTERNAL | | | | performed at [facility];[address] | mg/dL | LAB | | | | [address];[place] | | | | | | [address] | | | | + + + + + + | BUN/Creatin | 26Comment: Testing | | EXTERNAL | | | ine Ratio | performed at [facility];[address] | | LAB | | | | [address];[place] | | | | | | [address] | | | | + + + + + + | Calcium | 7.9 (L)Comment: Testing | 8.5 - 10.2 | EXTERNAL | | | | performed at [facility];[address] | mg/dL | LAB | | | | [address];[place] | | | | | | [address] | | | | + + + + + + | Estimated | >60Comment: GFR <60: | mL/min/1.73m2 | EXTERNAL | | | GFR | CHRONIC KIDNEY DISEASE, | | LAB | | | | IF FOUND OVER A 3 MONTH | | | | | | PERIOD.GFR <15: KIDNEY | | | | | | FAILURE.FOR | | | | | | AMERICANS, MULTIPLY THE | | | | | | CALCULATED GFR BY | | | | | | 1.210.Testing performed | | | | | | at [facility];[address] [place] [address] | | | | | | [facility];[place] [address] | | | | + + + + + + + + | Specimen | + + | Blood specimen | | (specimen) | + + + +---------+ + + | Performing | Address | City/State/Zipcode | Phone Number | | Organization | | | | + +---------+ + + | EXTERNAL LAB | | | | + +---------+ + + XR Chest 1 Vw (05/08/2013 5:49 AM PST) + + | Specimen | + + | | + + + + + | Impressions | Performed At | + + + | 1. Unchanged positioning of support tubes and lines. 2. Stable | | | pleural-parenchymal opacities of the mid and lower lung which may | | | reflect a combination of pleural fluid and atelectasis. Superimposed | | | consolidation is not entirely excluded. | | + + + + + + | Narrative | Performed At | + + + | GILMA SALMON 1965 47 years XR CHEST 1 VIEW 05/08/2013 5:49 | | | AM INDICATION: Acute respiratory failure, tube and line placement | | | COMPARISON: 05/07/13 TECHNIQUE: Chest 1 view, AP view of the | | | chest FINDINGS: Positioning of a endotracheal and enteric tube | | | are stable. The patient continues to have a right PICC line in place. | | | The tip of the right PICC line is not well seen on today's study. The | | | cardiac silhouette and mediastinal contours are unchanged. There is | | | no pneumothorax. Patchy opacities are seen throughout the mid and | | | lower lung bilaterally in a similar fashion to prior exam. The | | | vascular markings are mildly distended in appearance. | | + + + + + | Procedure Note | + + | Ofx, Rad Conversion - 11/20/2018 1:53 PM IIS [id number] yearsXR | | CHEST 1 VIEW05/08/2013 5:49 AM INDICATION: Acute respiratory failure, tube and line | | placement COMPARISON: 05/07/13 TECHNIQUE: Chest 1 view, AP view of the chest FINDINGS: | | Positioning of a endotracheal and enteric tube are stable. The patient continues to have | | a right PICC line in place. The tip of the right PICC line is not well seen on today's | | study. The cardiac silhouette and mediastinal contours are unchanged. There is no | | pneumothorax. Patchy opacities are seen throughout the mid and lower lung bilaterally in | | a similar fashion to prior exam. The vascular markings are mildly distended in | | appearance. IMPRESSION: 1. Unchanged positioning of support tubes and lines.2. Stable | | pleural-parenchymal opacities of the mid and lower lung which may reflect a combination | | of pleural fluid and atelectasis. Superimposed consolidation is not entirely excluded. | | | |FINDINGS: Positioning of a endotracheal and enteric tube are stable. The patient continues to have a right PICC line in place. The tip of the right PICC line is not well seen on to y's study. The cardiac silhouette and mediastinal contours are | |unchanged. There is no pneumothorax. Patchy opacities are seen throughout the mid and lower lung bilaterally in a similar fashion to prior exam. The vascular markings are mildly diste nded in appearance. | | | |IMPRESSION: | |1. Unchanged positioning of support tubes and lines. | |2. Stable pleural-parenchymal opacities of the mid and lower lung which may reflect a comb ination of pleural fluid and atelectasis. Superimposed consolidation is not entirely exclude d. | | | | | + + POC Glucose (05/08/2013 12:43 AM PST) + + + + + + | Component | Value | Ref Range | Performed | Pathologist | | | | | At | Signature | + + + + + + | Glucose, | 173 (H)Comment: Testing | 65 - 99 mg/dL | EXTERNAL | | | Fingerstick | performed at [facility];[address] | | LAB | | | | [address];[place], [place] | | | | | | [address] | | | | + + + + + + + + | Specimen | + + | | + + + +---------+ + + | Performing | Address | City/State/Zipcode | Phone Number | | Organization | | | | + +---------+ + + | EXTERNAL LAB | | | | + +---------+ + + POC Glucose (05/07/2013 6:08 PM PST) + + + + + + | Component | Value | Ref Range | Performed | Pathologist | | | | | At | Signature | + + + + + + | Glucose, | 180 (H)Comment: Testing | 65 - 99 mg/dL | EXTERNAL | | | Fingerstick | performed at [facility];[address] | | LAB | | | | [address];[place] | | | | | | [address] | | | | + + + + + + + + | Specimen | + + | | + + + +---------+ + + | Performing | Address | City/State/Zipcode | Phone Number | | Organization | | | | + +---------+ + + | EXTERNAL LAB | | | | + +---------+ + + POC Glucose (05/07/2013 11:52 AM PST) + + + + + + | Component | Value | Ref Range | Performed | Pathologist | | | | | At | Signature | + + + + + + | Glucose, | 148 (H)Comment: Testing | 65 - 99 mg/dL | EXTERNAL | | | Fingerstick | performed at [facility];[address] | | LAB | | | | [address];[place], [place] | | | | | | [address] | | | | + + + + + + + + | Specimen | + + | | + + + +---------+ + + | Performing | Address | City/State/Zipcode | Phone Number | | Organization | | | | + +---------+ + + | EXTERNAL LAB | | | | + +---------+ + + Potassium (05/07/2013 10:35 AM PST) + + + + + + | Component | Value | Ref Range | Performed | Pathologist | | | | | At | Signature | + + + + + + | K | 4.0Comment: Testing | 3.5 - 4.9 | EXTERNAL | | | | performed at [facility];888 | mmol/L | LAB | | | | [address];[place] | | | | | | [address] | | | | + + + + + + + + | Specimen | + + | Blood specimen | | (specimen) | + + + +---------+ + + | Performing | Address | City/State/Zipcode | Phone Number | | Organization | | | | + +---------+ + + | EXTERNAL LAB | | | | + +---------+ + + HISTORICAL MICROBIOLOGY RESULT (05/07/2013 10:18 AM PST) + + | Specimen | + + | Stool specimen | | (specimen) | + + + + + | Narrative | Performed At | + + + | Toxigenic C Difficile NEGATIVE Testing | EXTERNAL LAB | | performed at [facility];[address] [place] [address];[place] [address] 027 NAP1 BI | | | 027 NAP1 BI PRESUMPTIVE NEGATIVE | | | Detection of 027 NAP1 BI strains of C. difficile is presumptive and | | | for epidemiological purposes and not intended to guide or monitor | | | treatment for C. difficile infections. Testing performed at [facility] | | | [facility];[place] [address] | | + + + + +---------+ + + | Performing | Address | City/State/Zipcode | Phone Number | | Organization | | | | + +---------+ + + | EXTERNAL LAB | | | | + +---------+ + + POC Glucose (05/07/2013 6:04 AM PST) + + + + + + | Component | Value | Ref Range | Performed | Pathologist | | | | | At | Signature | + + + + + + | Glucose, | 134 (H)Comment: Testing | 65 - 99 mg/dL | EXTERNAL | | | Fingerstick | performed at [facility];[address] | | LAB | | | | [address];[place] | | | | | | [address] | | | | + + + + + + + + | Specimen | + + | | + + + +---------+ + + | Performing | Address | City/State/Zipcode | Phone Number | | Organization | | | | + +---------+ + + | EXTERNAL LAB | | | | + +---------+ + + XR Chest 1 Tyrell (05/07/2013 5:43 AM PST) + + | Specimen | + + | | + + + + + | Impressions | Performed At | + + + | 1. Improving suspected pulmonary edema, perhaps with subtle | | | effusions, difficult to define given patient body habitus. 2. | | | Normal heart size. 3. Right IJ line tip distal SVC, without | | | pneumothorax, with otherwise unchanged tubes and lines. | | | | | + + + + + + | Narrative | Performed At | + + + | HISTORY: Acute respiratory failure. ARDS. COMPARISON: | | | 05/06/13. TECHNIQUE: Portable AP upright film of the chest at | | | 0503 hrs. FINDINGS: Improving CHF and pulmonary edema centrally. | | | Heart size is normal. Question subtle effusions. Technical limitation | | | due to patient body habitus. ET tube, NG tube, right subclavian | | | central line, with tip in the distal superior vena cava. Central line | | | is new. No pneumothorax. | | + + + + + | Procedure Note | + + | Fox, Rad Conversion - 11/20/2018 1:53 PM PDT HISTORY:Acute respiratory failure. | | ARDS. COMPARISON:05/06/13. TECHNIQUE:Portable AP upright film of the chest at 0503 hrs. | | FINDINGS:Improving CHF and pulmonary edema centrally. Heart size is normal. Question | | subtle effusions. Technical limitation due to patient body habitus. ET tube, NG tube, | | right subclavian central line, with tip in the distal superior vena cava. Central line | | is new. No pneumothorax. IMPRESSION: 1. Improving suspected pulmonary edema, perhaps | | with subtle effusions, difficult to define given patient body habitus.2. Normal heart | | size.3. Right IJ line tip distal SVC, without pneumothorax, with otherwise unchanged | | tubes and lines. | |FINDINGS: | |Improving CHF and pulmonary edema centrally. Heart size is normal. Question subtle effusion s. Technical limitation due to patient body habitus. ET tube, NG tube, right subclavian cent ral line, with tip in the distal superior vena cava. Central line is | |new. No pneumothorax. | | | |IMPRESSION: | |1. Improving suspected pulmonary edema, perhaps with subtle effusions, difficult to define given patient body habitus. | |2. Normal heart size. | |3. Right IJ line tip distal SVC, without pneumothorax, with otherwise unchanged tubes and lines. | | | | | + + External Lab: CBC (05/07/2013 3:55 AM PST) + + + + + + | Component | Value | Ref Range | Performed | Pathologist | | | | | At | Signature | + + + + + + | WBC | 7.5Comment: Testing | 3.8 - 11.0 K/uL | EXTERNAL | | | | performed at [facility];8 | | LAB | | | | [address];[place] | | | | | | [address] | | | | + + + + + + | Non- | 4.28Comment: Testing | 3.70 - 5.10 | EXTERNAL | | | Red Blood | performed at [facility];[address] | M/uL | LAB | | | Cells | [address];[place] | | | | | Counted | [id number] | | | | + + + + + + | Hemoglobin | 11.8Comment: Testing | 11.3 - 15.5 | EXTERNAL | | | | performed at [facility];[address] | g/dL | LAB | | | | [address];[place] | | | | | | [address] | | | | + + + + + + | Hematocrit, | 35.0Comment: Testing | 34.0 - 46.0 % | EXTERNAL | | | POC | performed at [facility];[address] | | LAB | | | | [address];[place] | | | | | | [address] | | | | + + + + + + | MCV | 81.7Comment: Testing | 80.0 - 100.0 fl | EXTERNAL | | | | performed at [facility];[address] | | LAB | | | | [address];[place] | | | | | | [address] | | | | + + + + + + | MCH | 27.6Comment: Testing | 27.0 - 34.0 pg | EXTERNAL | | | | performed at [facility];[address] | | LAB | | | | [address];[place] | | | | | | [address] | | | | + + + + + + | MCHC | 33.8Comment: Testing | 32.0 - 35.5 | EXTERNAL | | | | performed at [facility];[address] | g/dL | LAB | | | | [address];[place] | | | | | | [address] | | | | + + + + + + | RDW-CV | 42.4Comment: Testing | 37 - 53 fl | EXTERNAL | | | | performed at [facility];[address] | | LAB | | | | [address];[place] | | | | | | [address] | | | | + + + + + + | Platelet | 260Comment: Testing | 150 - 400 K/uL | EXTERNAL | | | Count | performed at [facility];[address] | | LAB | | | Plasma | [address];[place] | | | | | | [address] | | | | + + + + + + | MPV | 8.0Comment: Testing | fl | EXTERNAL | | | | performed at [facility];[address] | | LAB | | | | [address];[place] | | | | | | [address] | | | | + + + + + + | Differentia | AUTOMATEDComment: | | EXTERNAL | | | l Type | Testing performed at | | LAB | | | | [facility];[address];[place] [address] | | | | + + + + + + | % Segmented | 56.4 | % | EXTERNAL | | | | | | LAB | | | Neutrophils | | | | | + + + + + + | % | 34.1 | % | EXTERNAL | | | Lymphocytes | | | LAB | | + + + + + + | % Monocytes | 8.8 | % | EXTERNAL | | | | | | LAB | | + + + + + + | % | 0.3 | % | EXTERNAL | | | Eosinophils | | | LAB | | + + + + + + | % Basophils | 0.4 | % | EXTERNAL | | | | | | LAB | | + + + + + + | Absolute | 4.2 | 1.9 - 7.4 K/uL | EXTERNAL | | | Segmented | | | LAB | | | Neutrophils | | | | | + + + + + + | Absolute | 2.6 | 1.0 - 3.9 K/uL | EXTERNAL | | | Lymphocytes | | | LAB | | + + + + + + | Absolute | 0.7 | 0 - 0.8 K/uL | EXTERNAL | | | Monocytes | | | LAB | | + + + + + + | Absolute | 0.0 | 0 - 0.5 K/uL | EXTERNAL | | | Eosinophils | | | LAB | | + + + + + + | Absolute | 0.0 | 0 - 0.1 K/uL | EXTERNAL | | | Basophils | | | LAB | | + + + + + + + + | Specimen | + + | Blood specimen | | (specimen) | + + + +---------+ + + | Performing | Address | City/State/Zipcode | Phone Number | | Organization | | | | + +---------+ + + | EXTERNAL LAB | | | | + +---------+ + + Phosphorus (05/07/2013 3:55 AM PST) + + + + + + | Component | Value | Ref Range | Performed | Pathologist | | | | | At | Signature | + + + + + + | PHOSPHORUS | 2.5Comment: Testing | 2.3 - 4.8 mg/dL | EXTERNAL | | | | performed at [facility] | | LAB | | | | [facility];[place], [place] | | | | | | [address] | | | | + + + + + + + + | Specimen | + + | Blood specimen | | (specimen) | + + + +---------+ + + | Performing | Address | City/State/Zipcode | Phone Number | | Organization | | | | + +---------+ + + | EXTERNAL LAB | | | | + +---------+ + + Magnesium (05/07/2013 3:55 AM PST) + + + + + + | Component | Value | Ref Range | Performed | Pathologist | | | | | At | Signature | + + + + + + | Magnesium | 1.9Comment: Testing | 1.7 - 2.4 mg/dL | EXTERNAL | | | | performed at [facility];[address] | | LAB | | | | [address];[place] | | | | | | [address] | | | | + + + + + + + + | Specimen | + + | Blood specimen | | (specimen) | + + + +---------+ + + | Performing | Address | City/State/Zipcode | Phone Number | | Organization | | | | + +---------+ + + | EXTERNAL LAB | | | | + +---------+ + + Basic Metabolic Panel (05/07/2013 3:55 AM PST) + + + + + + | Component | Value | Ref Range | Performed | Pathologist | | | | | At | Signature | + + + + + + | Na | 141Comment: Testing | 135 - 143 | EXTERNAL | | | | performed at [facility];[address] | mmol/L | LAB | | | | [address];[place] | | | | | | [address] | | | | + + + + + + | K | 3.7Comment: Testing | 3.5 - 4.9 | EXTERNAL | | | | performed at [facility];[address] | mmol/L | LAB | | | | [address];[place] | | | | | | [address] | | | | + + + + + + | Cl | 108Comment: Testing | 99 - 109 mmol/L | EXTERNAL | | | | performed at [facility];[address] | | LAB | | | | [address];[place] | | | | | | [address] | | | | + + + + + + | CO2 | 24Comment: Testing | 23 - 32 mmol/L | EXTERNAL | | | | performed at [facility];[address] | | LAB | | | | [address];[place] | | | | | | [address] | | | | + + + + + + | Anion Gap | 13Comment: Testing | 5 - 20 mmol/L | EXTERNAL | | | | performed at [facility];[address] | | LAB | | | | [address];[place] | | | | | | [address] | | | | + + + + + + | Glucose, | 125 (H)Comment: Testing | 65 - 99 mg/dL | EXTERNAL | | | Fasting | performed at [facility];[address] | | LAB | | | | [address];[place] | | | | | | [address] | | | | + + + + + + | BUN | 12Comment: Testing | 8 - 25 mg/dL | EXTERNAL | | | | performed at [facility];[address] | | LAB | | | | [address];[place] | | | | | | [address] | | | | + + + + + + | Creatinine | 0.76Comment: Testing | 0.50 - 1.00 | EXTERNAL | | | | performed at [facility];[address] | mg/dL | LAB | | | | [address];[place] | | | | | | [address] | | | | + + + + + + | BUN/Creatin | 15Comment: Testing | | EXTERNAL | | | ine Ratio | performed at [facility];[address] | | LAB | | | | [address];[place] | | | | | | [address] | | | | + + + + + + | Calcium | 7.9 (L)Comment: Testing | 8.5 - 10.2 | EXTERNAL | | | | performed at [facility];[address] | mg/dL | LAB | | | | [address];[place] | | | | | | [address] | | | | + + + + + + | Estimated | >60Comment: GFR <60: | mL/min/1.73m2 | EXTERNAL | | | GFR | CHRONIC KIDNEY DISEASE, | | LAB | | | | IF FOUND OVER A 3 MONTH | | | | | | PERIOD.GFR <15: KIDNEY | | | | | | FAILURE.FOR | | | | | | AMERICANS, MULTIPLY THE | | | | | | CALCULATED GFR BY | | | | | | 1.210.Testing performed | | | | | | at [facility];[address];[place] [address] | | | | + + + + + + + + | Specimen | + + | Blood specimen | | (specimen) | + + + +---------+ + + | Performing | Address | City/State/Zipcode | Phone Number | | Organization | | | | + +---------+ + + | EXTERNAL LAB | | | | + +---------+ + + POC Glucose (05/07/2013 12:05 AM PST) + + + + + + | Component | Value | Ref Range | Performed | Pathologist | | | | | At | Signature | + + + + + + | Glucose, | 115 (H)Comment: Testing | 65 - 99 mg/dL | EXTERNAL | | | Fingerstick | performed at [facility] | | LAB | | | | [address];[place], [place] | | | | | | [address] | | | | + + + + + + + + | Specimen | + + | | + + + +---------+ + + | Performing | Address | City/State/Zipcode | Phone Number | | Organization | | | | + +---------+ + + | EXTERNAL LAB | | | | + +---------+ + + POC Glucose (05/06/2013 8:53 PM PST) + + + + + + | Component | Value | Ref Range | Performed | Pathologist | | | | | At | Signature | + + + + + + | Glucose, | 112 (H)Comment: Testing | 65 - 99 mg/dL | EXTERNAL | | | Fingerstick | performed at [facility];[address] | | LAB | | | | [address];[place] | | | | | | [address] | | | | + + + + + + + + | Specimen | + + | | + + + +---------+ + + | Performing | Address | City/State/Zipcode | Phone Number | | Organization | | | | + +---------+ + + | EXTERNAL LAB | | | | + +---------+ + + POC Glucose (05/06/2013 6:47 PM PST) + + + + + + | Component | Value | Ref Range | Performed | Pathologist | | | | | At | Signature | + + + + + + | Glucose, | 121 (H)Comment: Testing | 65 - 99 mg/dL | EXTERNAL | | | Fingerstick | performed at [facility];[address] | | LAB | | | | [address];[place] | | | | | | [address] | | | | + + + + + + + + | Specimen | + + | | + + + +---------+ + + | Performing | Address | City/State/Zipcode | Phone Number | | Organization | | | | + +---------+ + + | EXTERNAL LAB | | | | + +---------+ + + POC Glucose (05/06/2013 4:40 PM PST) + + + + + + | Component | Value | Ref Range | Performed | Pathologist | | | | | At | Signature | + + + + + + | Glucose, | 113 (H)Comment: Testing | 65 - 99 mg/dL | EXTERNAL | | | Fingerstick | performed at [facility];[address] | | LAB | | | | [address];[place], [place] | | | | | | [address] | | | | + + + + + + + + | Specimen | + + | | + + + +---------+ + + | Performing | Address | City/State/Zipcode | Phone Number | | Organization | | | | + +---------+ + + | EXTERNAL LAB | | | | + +---------+ + + POC Glucose (05/06/2013 2:34 PM PST) + + + + + + | Component | Value | Ref Range | Performed | Pathologist | | | | | At | Signature | + + + + + + | Glucose, | 116 (H)Comment: Testing | 65 - 99 mg/dL | EXTERNAL | | | Fingerstick | performed at [facility];[address] | | LAB | | | | [address];[place] | | | | | | [address] | | | | + + + + + + + + | Specimen | + + | | + + + +---------+ + + | Performing | Address | City/State/Zipcode | Phone Number | | Organization | | | | + +---------+ + + | EXTERNAL LAB | | | | + +---------+ + + POC Glucose (05/06/2013 12:22 PM PST) + + + + + + | Component | Value | Ref Range | Performed | Pathologist | | | | | At | Signature | + + + + + + | Glucose, | 112 (H)Comment: Testing | 65 - 99 mg/dL | EXTERNAL | | | Fingerstick | performed at [facility];[address] | | LAB | | | | [facility];[place], [place] | | | | | | [address] | | | | + + + + + + + + | Specimen | + + | | + + + +---------+ + + | Performing | Address | City/State/Zipcode | Phone Number | | Organization | | | | + +---------+ + + | EXTERNAL LAB | | | | + +---------+ + + Potassium (05/06/2013 10:51 AM PST) + + + + + + | Component | Value | Ref Range | Performed | Pathologist | | | | | At | Signature | + + + + + + | K | 4.3Comment: Testing | 3.5 - 4.9 | EXTERNAL | | | | performed at [facility];888 | mmol/L | LAB | | | | [address];[place] | | | | | | [address] | | | | + + + + + + + + | Specimen | + + | Blood specimen | | (specimen) | + + + +---------+ + + | Performing | Address | City/State/Zipcode | Phone Number | | Organization | | | | + +---------+ + + | EXTERNAL LAB | | | | + +---------+ + + Magnesium (05/06/2013 10:51 AM PST) + + + + + + | Component | Value | Ref Range | Performed | Pathologist | | | | | At | Signature | + + + + + + | Magnesium | 1.8Comment: Testing | 1.7 - 2.4 mg/dL | EXTERNAL | | | | performed at [facility];[address] | | LAB | | | | [address];[place], [place] | | | | | | [address] | | | | + + + + + + + + | Specimen | + + | Blood specimen | | (specimen) | + + + +---------+ + + | Performing | Address | City/State/Zipcode | Phone Number | | Organization | | | | + +---------+ + + | EXTERNAL LAB | | | | + +---------+ + + POC Glucose (05/06/2013 10:11 AM PST) + + + + + + | Component | Value | Ref Range | Performed | Pathologist | | | | | At | Signature | + + + + + + | Glucose, | 125 (H)Comment: Testing | 65 - 99 mg/dL | EXTERNAL | | | Fingerstick | performed at [facility];[address] | | LAB | | | | [address];[place] | | | | | | [address] | | | | + + + + + + + + | Specimen | + + | | + + + +---------+ + + | Performing | Address | City/State/Zipcode | Phone Number | | Organization | | | | + +---------+ + + | EXTERNAL LAB | | | | + +---------+ + + POC Glucose (05/06/2013 7:54 AM PST) + + + + + + | Component | Value | Ref Range | Performed | Pathologist | | | | | At | Signature | + + + + + + | Glucose, | 108 (H)Comment: Testing | 65 - 99 mg/dL | EXTERNAL | | | Fingerstick | performed at [facility];[address] | | LAB | | | | [facility];[place], [place] | | | | | | [address] | | | | + + + + + + + + | Specimen | + + | | + + + +---------+ + + | Performing | Address | City/State/Zipcode | Phone Number | | Organization | | | | + +---------+ + + | EXTERNAL LAB | | | | + +---------+ + + POC Glucose (05/06/2013 6:49 AM PST) + + + + + + | Component | Value | Ref Range | Performed | Pathologist | | | | | At | Signature | + + + + + + | Glucose, | 112 (H)Comment: Testing | 65 - 99 mg/dL | EXTERNAL | | | Fingerstick | performed at [facility];[address] | | LAB | | | | [address];[place] | | | | | | [address] | | | | + + + + + + + + | Specimen | + + | | + + + +---------+ + + | Performing | Address | City/State/Zipcode | Phone Number | | Organization | | | | + +---------+ + + | EXTERNAL LAB | | | | + +---------+ + + XR Chest 1 Tyrell 05/06/2013 5:42 AM [facility]) + + | Specimen | + + | | + + + + + | Impressions | Performed At | + + + | 1. Probable worsening pulmonary edema, perhaps with minimal | | | effusions. 2. Stable tubes. 3. Heart size is normal. | | | | | + + + + + + | Narrative | Performed At | + + + | HISTORY: Respiratory failure. Evaluate tubes and lines. | | | COMPARISON: 05/05/13. TECHNIQUE: Portable AP upright film of the | | | chest at 0455 hrs. FINDINGS: Worsening bilateral perihilar mixed | | | interstitial and airspace infiltrates, perhaps with subtle effusions, | | | increased. I would favor pulmonary edema over pneumonitis. ET tube, | | | NG tube unchanged. | | + + + + + | Procedure Note | + + | Ermias Braxton Conversion - 11/20/2018 1:53 PM PDT HISTORY:Respiratory failure. Evaluate | | tubes and lines. COMPARISON:05/05/13. TECHNIQUE:Portable AP upright film of the chest at | | 0455 hrs. FINDINGS:Worsening bilateral perihilar mixed interstitial and airspace | | infiltrates, perhaps with subtle effusions, increased. I would favor pulmonary edema | | over pneumonitis. ET tube, NG tube unchanged. IMPRESSION: 1. Probable worsening | | pulmonary edema, perhaps with minimal effusions.2. Stable tubes.3. Heart size is | | normal. | |Portable AP upright film of the chest at 0455 hrs. | | | |FINDINGS: | |Worsening bilateral perihilar mixed interstitial and airspace infiltrates, perhaps with sub tle effusions, increased. I would favor pulmonary edema over pneumonitis. ET tube, NG tube u nchanged. | | | |IMPRESSION: | |1. Probable worsening pulmonary edema, perhaps with minimal effusions. | |2. Stable tubes. | |3. Heart size is normal. | | | | | + + POC Glucose (05/06/2013 5:36 AM PST) + + + + + + | Component | Value | Ref Range | Performed | Pathologist | | | | | At | Signature | + + + + + + | Glucose, | 118 (H)Comment: Testing | 65 - 99 mg/dL | EXTERNAL | | | Fingerstick | performed at [facility];[address] | | LAB | | | | [address];[place] | | | | | | [address] | | | | + + + + + + + + | Specimen | + + | | + + + +---------+ + + | Performing | Address | City/State/Zipcode | Phone Number | | Organization | | | | + +---------+ + + | EXTERNAL LAB | | | | + +---------+ + + External Lab: CBC (05/06/2013 4:38 AM PST) + + + + + + | Component | Value | Ref Range | Performed | Pathologist | | | | | At | Signature | + + + + + + | WBC | 7.0Comment: Testing | 3.8 - 11.0 K/uL | EXTERNAL | | | | performed at [facility], [address] | | LAB | | | | [address], | | | | | | [place] [address] | | | | + + + + + + | Non- | 4.48Comment: Testing | 3.70 - 5.10 | EXTERNAL | | | Red Blood | performed at [facility], [address] | M/uL | LAB | | | Cells | [address], | | | | | Counted | [place] [address] | | | | + + + + + + | Hemoglobin | 11.7Comment: Testing | 11.3 - 15.5 | EXTERNAL | | | | performed at [facility], [address] | g/dL | LAB | | | | [address], | | | | | | [place] [address] | | | | + + + + + + | Hematocrit, | 36.6Comment: Testing | 34.0 - 46.0 % | EXTERNAL | | | POC | performed at [facility], [address] | | LAB | | | | [address], | | | | | | [place] [address] | | | | + + + + + + | MCV | 81.7Comment: Testing | 80.0 - 100.0 fl | EXTERNAL | | | | performed at [facility], [address] | | LAB | | | | [address], | | | | | | [place] [address] | | | | + + + + + + | MCH | 26.1 (L)Comment: Testing | 27.0 - 34.0 pg | EXTERNAL | | | | performed at [facility], [address] | | LAB | | | | [address], | | | | | | [place] [address] | | | | + + + + + + | MCHC | 32.0Comment: Testing | 32.0 - 35.5 | EXTERNAL | | | | performed at [facility], [address] | g/dL | LAB | | | | [address], | | | | | | [place] [address] | | | | + + + + + + | RDW-CV | 39.8Comment: Testing | 37 - 53 fl | EXTERNAL | | | | performed at [facility], [address] | | LAB | | | | [address], | | | | | | [place] [address] | | | | + + + + + + | Platelet | 202Comment: Testing | 150 - 400 K/uL | EXTERNAL | | | Count | performed at [facility], [address] | | LAB | | | Plasma | [address], | | | | | | [place] [address] | | | | + + + + + + | MPV | 8.3Comment: Testing | fl | EXTERNAL | | | | performed at [facility], [address] | | LAB | | | | [address], | | | | | | [place] [address] | | | | + + + + + + | Differentia | AUTOMATEDComment: | | EXTERNAL | | | l Type | Testing performed at | | LAB | | | | [facility], [address] | | | | | | [place] | | | | | | [address] | | | | + + + + + + | % Segmented | 63.4 | % | EXTERNAL | | | | | | LAB | | | Neutrophils | | | | | + + + + + + | % | 28.5 | % | EXTERNAL | | | Lymphocytes | | | LAB | | + + + + + + | % Monocytes | 7.5 | % | EXTERNAL | | | | | | LAB | | + + + + + + | % | 0.1 | % | EXTERNAL | | | Eosinophils | | | LAB | | + + + + + + | % Basophils | 0.5 | % | EXTERNAL | | | | | | LAB | | + + + + + + | Absolute | 4.4 | 1.9 - 7.4 K/uL | EXTERNAL | | | Segmented | | | LAB | | | Neutrophils | | | | | + + + + + + | Absolute | 2.0 | 1.0 - 3.9 K/uL | EXTERNAL | | | Lymphocytes | | | LAB | | + + + + + + | Absolute | 0.5 | 0 - 0.8 K/uL | EXTERNAL | | | Monocytes | | | LAB | | + + + + + + | Absolute | 0.0 | 0 - 0.5 K/uL | EXTERNAL | | | Eosinophils | | | LAB | | + + + + + + | Absolute | 0.0 | 0 - 0.1 K/uL | EXTERNAL | | | Basophils | | | LAB | | + + + + + + | RBC | Comment: 1+ Hypochromia | | EXTERNAL | | | Morphology | | | LAB | | + + + + + + + + | Specimen | + + | Blood specimen | | (specimen) | + + + +---------+ + + | Performing | Address | City/State/Zipcode | Phone Number | | Organization | | | | + +---------+ + + | EXTERNAL LAB | | | | + +---------+ + + Phosphorus (05/06/2013 4:38 AM PST) + + + + + + | Component | Value | Ref Range | Performed | Pathologist | | | | | At | Signature | + + + + + + | PHOSPHORUS | 2.4Comment: Testing | 2.3 - 4.8 mg/dL | EXTERNAL | | | | performed at [facility];[address] | | LAB | | | | [address];[place], [place] | | | | | | [address] | | | | + + + + + + + + | Specimen | + + | Blood specimen | | (specimen) | + + + +---------+ + + | Performing | Address | City/State/Zipcode | Phone Number | | Organization | | | | + +---------+ + + | EXTERNAL LAB | | | | + +---------+ + + Magnesium (05/06/2013 4:38 AM PST) + + + + + + | Component | Value | Ref Range | Performed | Pathologist | | | | | At | Signature | + + + + + + | Magnesium | 1.6 (L)Comment: Testing | 1.7 - 2.4 mg/dL | EXTERNAL | | | | performed at [facility];[address] | | LAB | | | | [address];[place] | | | | | | [address] | | | | + + + + + + + + | Specimen | + + | Blood specimen | | (specimen) | + + + +---------+ + + | Performing | Address | City/State/Zipcode | Phone Number | | Organization | | | | + +---------+ + + | EXTERNAL LAB | | | | + +---------+ + + Hemoglobin A1C (05/06/2013 4:38 AM PST) + + + + + + | Component | Value | Ref Range | Performed | Pathologist | | | | | At | Signature | + + + + + + | Hemoglobin | 13.1 (H)Comment: The | 4.0 - 6.0 % | EXTERNAL | | | A1c | [employer] [employer] | | LAB | | | | Association considers a | | | | | | hemoglobin A1c result of | | | | | | <7.0% to be the goal of | | | | | | diabetic therapy. | | | | | | When results are | | | | | | consistently >8.0%, the | | | | | | ADA suggests | | | | | | reevaluation of the | | | | | | treatment regimen. The | | | | | | testing method used is | | | | | | certified traceable to | | | | | | the Diabetes Control and | | | | | | Complications Trial | | | | | | reference method.Testing | | | | | | performed at [facility], [address] | | | | | [address] [facility], | | | | | | [place] [address] | | | | + + + + + + | Glycohemogl | 329Comment: The ADA | mg/dL | EXTERNAL | | | obin | considers an eAG result | | LAB | | | (GHb),Total | of LT 154 mg/dL to be | | | | | | the goal of diabetic | | | | | | therapy. Estimated | | | | | | Average Glucose | | | | | | calculated from | | | | | | hemoglobin A1c by use of | | | | | | the ADA recommended | | | | | | formula.Testing | | | | | | performed at [facility], [address] | | | | | | [facility], | | | | | | [place] [address] | | | | + + + + + + + + | Specimen | + + | Blood specimen | | (specimen) | + + + +---------+ + + | Performing | Address | City/State/Zipcode | Phone Number | | Organization | | | | + +---------+ + + | EXTERNAL LAB | | | | + +---------+ + + CK Total (05/06/2013 4:38 AM PST) + + + + + + | Component | Value | Ref Range | Performed | Pathologist | | | | | At | Signature | + + + + + + | CK, Total | 198Comment: Testing | 30 - 240 U/L | EXTERNAL | | | | performed at [facility];[address] | | LAB | | | | [address];[place], [place] | | | | | | [address] | | | | + + + + + + + + | Specimen | + + | Blood specimen | | (specimen) | + + + +---------+ + + | Performing | Address | City/State/Zipcode | Phone Number | | Organization | | | | + +---------+ + + | EXTERNAL LAB | | | | + +---------+ + + Basic Metabolic Panel (05/06/2013 4:38 AM PST) + + + + + + | Component | Value | Ref Range | Performed | Pathologist | | | | | At | Signature | + + + + + + | Na | 141Comment: Testing | 135 - 143 | EXTERNAL | | | | performed at [facility];[address] | mmol/L | LAB | | | | [address];[place] | | | | | | [address] | | | | + + + + + + | K | 3.7Comment: Testing | 3.5 - 4.9 | EXTERNAL | | | | performed at [facility];[address] | mmol/L | LAB | | | | [address];[place] | | | | | | [address] | | | | + + + + + + | Cl | 109Comment: Testing | 99 - 109 mmol/L | EXTERNAL | | | | performed at [facility];[address] | | LAB | | | | [address];[place] | | | | | | [address] | | | | + + + + + + | CO2 | 25Comment: Testing | 23 - 32 mmol/L | EXTERNAL | | | | performed at [facility];[address] | | LAB | | | | [address];[place] | | | | | | [address] | | | | + + + + + + | Anion Gap | 11Comment: Testing | 5 - 20 mmol/L | EXTERNAL | | | | performed at [facility];[address] | | LAB | | | | [address];[place] | | | | | | [address] | | | | + + + + + + | Glucose, | 97Comment: Testing | 65 - 99 mg/dL | EXTERNAL | | | Fasting | performed at [facility];[address] | | LAB | | | | [address];[place] | | | | | | [address] | | | | + + + + + + | BUN | 6 (L)Comment: Testing | 8 - 25 mg/dL | EXTERNAL | | | | performed at [facility];[address] | | LAB | | | | [address];[place] | | | | | | [address] | | | | + + + + + + | Creatinine | 0.70Comment: Testing | 0.50 - 1.00 | EXTERNAL | | | | performed at [facility];[address] | mg/dL | LAB | | | | [address];[place] | | | | | | [address] | | | | + + + + + + | BUN/Creatin | 9Comment: Testing | | EXTERNAL | | | ine Ratio | performed at [facility];[address] | | LAB | | | | [address];[place] | | | | | | [address] | | | | + + + + + + | Calcium | 7.5 (L)Comment: Testing | 8.5 - 10.2 | EXTERNAL | | | | performed at [facility];[address] | mg/dL | LAB | | | | [address];[place] | | | | | | [address] | | | | + + + + + + | Estimated | >60Comment: GFR <60: | mL/min/1.73m2 | EXTERNAL | | | GFR | CHRONIC KIDNEY DISEASE, | | LAB | | | | IF FOUND OVER A 3 MONTH | | | | | | PERIOD.GFR <15: KIDNEY | | | | | | FAILURE.FOR | | | | | | AMERICANS, MULTIPLY THE | | | | | | CALCULATED GFR BY | | | | | | 1.210.Testing performed | | | | | | at [facility];[address] [place] [address] | | | | | | [facility];[place] [address] | | | | + + + + + + + + | Specimen | + + | Blood specimen | | (specimen) | + + + +---------+ + + | Performing | Address | City/State/Zipcode | Phone Number | | Organization | | | | + +---------+ + + | EXTERNAL LAB | | | | + +---------+ + + POC Glucose (05/06/2013 4:35 AM PST) + + + + + + | Component | Value | Ref Range | Performed | Pathologist | | | | | At | Signature | + + + + + + | Glucose, | 94Comment: Testing | 65 - 99 mg/dL | EXTERNAL | | | Fingerstick | performed at [facility];[address] | | LAB | | | | [address];[place] | | | | | | [address] | | | | + + + + + + + + | Specimen | + + | | + + + +---------+ + + | Performing | Address | City/State/Zipcode | Phone Number | | Organization | | | | + +---------+ + + | EXTERNAL LAB | | | | + +---------+ + + POC Glucose (05/06/2013 2:50 AM PST) + + + + + + | Component | Value | Ref Range | Performed | Pathologist | | | | | At | Signature | + + + + + + | Glucose, | 108 (H)Comment: Testing | 65 - 99 mg/dL | EXTERNAL | | | Fingerstick | performed at [facility];[address] | | LAB | | | | [address];[place] | | | | | | [address] | | | | + + + + + + + + | Specimen | + + | | + + + +---------+ + + | Performing | Address | City/State/Zipcode | Phone Number | | Organization | | | | + +---------+ + + | EXTERNAL LAB | | | | + +---------+ + + POC Glucose (05/06/2013 1:04 AM PST) + + + + + + | Component | Value | Ref Range | Performed | Pathologist | | | | | At | Signature | + + + + + + | Glucose, | 111 (H)Comment: Testing | 65 - 99 mg/dL | EXTERNAL | | | Fingerstick | performed at [facility];[address] | | LAB | | | | [address];[place], [place] | | | | | | [address] | | | | + + + + + + + + | Specimen | + + | | + + + +---------+ + + | Performing | Address | City/State/Zipcode | Phone Number | | Organization | | | | + +---------+ + + | EXTERNAL LAB | | | | + +---------+ + + POC Glucose (05/05/2013 11:00 PM PST) + + + + + + | Component | Value | Ref Range | Performed | Pathologist | | | | | At | Signature | + + + + + + | Glucose, | 109 (H)Comment: Testing | 65 - 99 mg/dL | EXTERNAL | | | Fingerstick | performed at [facility];[address] | | LAB | | | | [address];[place] | | | | | | [address] | | | | + + + + + + + + | Specimen | + + | | + + + +---------+ + + | Performing | Address | City/State/Zipcode | Phone Number | | Organization | | | | + +---------+ + + | EXTERNAL LAB | | | | + +---------+ + + POC Glucose (05/05/2013 8:33 PM PST) + + + + + + | Component | Value | Ref Range | Performed | Pathologist | | | | | At | Signature | + + + + + + | Glucose, | 118 (H)Comment: Testing | 65 - 99 mg/dL | EXTERNAL | | | Fingerstick | performed at [facility];[address] | | LAB | | | | [address];[place], [place] | | | | | | [address] | | | | + + + + + + + + | Specimen | + + | | + + + +---------+ + + | Performing | Address | City/State/Zipcode | Phone Number | | Organization | | | | + +---------+ + + | EXTERNAL LAB | | | | + +---------+ + + Potassium (05/05/2013 7:35 PM PST) + + + + + + | Component | Value | Ref Range | Performed | Pathologist | | | | | At | Signature | + + + + + + | K | 3.3 (L)Comment: Testing | 3.5 - 4.9 | EXTERNAL | | | | performed at [facility];[address] | mmol/L | LAB | | | | [address];[place] | | | | | | [address] | | | | + + + + + + + + | Specimen | + + | Blood specimen | | (specimen) | + + + +---------+ + + | Performing | Address | City/State/Zipcode | Phone Number | | Organization | | | | + +---------+ + + | EXTERNAL LAB | | | | + +---------+ + + Phosphorus (05/05/2013 7:35 PM PST) + + + + + + | Component | Value | Ref Range | Performed | Pathologist | | | | | At | Signature | + + + + + + | PHOSPHORUS | 1.9 (L)Comment: Testing | 2.3 - 4.8 mg/dL | EXTERNAL | | | | performed at [facility];[address] | | LAB | | | | [address];[place], [place] | | | | | | [address] | | | | + + + + + + + + | Specimen | + + | Blood specimen | | (specimen) | + + + +---------+ + + | Performing | Address | City/State/Zipcode | Phone Number | | Organization | | | | + +---------+ + + | EXTERNAL LAB | | | | + +---------+ + + Magnesium (05/05/2013 7:35 PM PST) + + + + + + | Component | Value | Ref Range | Performed | Pathologist | | | | | At | Signature | + + + + + + | Magnesium | 1.3 (L)Comment: Testing | 1.7 - 2.4 mg/dL | EXTERNAL | | | | performed at [facility];[address] | | LAB | | | | [address];[place], [place] | | | | | | [address] | | | | + + + + + + + + | Specimen | + + | Blood specimen | | (specimen) | + + + +---------+ + + | Performing | Address | City/State/Zipcode | Phone Number | | Organization | | | | + +---------+ + + | EXTERNAL LAB | | | | + +---------+ + + Culture, Urine (05/05/2013 7:26 PM PST) + + | Specimen | + + | Urine specimen | | (specimen) | + + + + + | Narrative | Performed At | + + + | Specimen Description CATHETERIZED URINE | EXTERNAL LAB | | Testing performed at | | | [facility];[address] [facility];[place] [address] CULTURE | | | NO GROWTH | | | Testing performed at [facility], [address] [facility], | | | [place] [address] REPORT STATUS | | | 05/06/2013 FINAL | | + + + + +---------+ + + | Performing | Address | City/State/Zipcode | Phone Number | | Organization | | | | + +---------+ + + | EXTERNAL LAB | | | | + +---------+ + + Urinalysis, Microscopic Only (05/05/2013 7:25 PM PST) + + + + + + | Component | Value | Ref Range | Performed | Pathologist | | | | | At | Signature | + + + + + + | WBC, UA | 0-2Comment: Testing | 0 - 5 /hpf | EXTERNAL | | | | performed at [facility];[address] | | LAB | | | | [address];[place] | | | | | | [address] | | | | + + + + + + | RBC, UA | 16-25Comment: Testing | 0 - 5 /hpf | EXTERNAL | | | | performed at [facility];[address] | | LAB | | | | [address];[place] | | | | | | [address] | | | | + + + + + + | Epithelial | 1-5Comment: Testing | /lpf | EXTERNAL | | | Cells | performed at [facility];[address] | | LAB | | | | [address];[place] | | | | | | [address] | | | | + + + + + + | Bacteria, | 1+ (A)Comment: Testing | | EXTERNAL | | | UA | performed at [facility];[address] | | LAB | | | | [address];[place] | | | | | | [address] | | | | + + + + + + | Urinalysis | MICRO DONE ON UNSPUN | | EXTERNAL | | | Comments | URINE...< 2.0 ML | | LAB | | | | RECEIVED | | | | + + + + + + + + | Specimen | + + | | + + + +---------+ + + | Performing | Address | City/State/Zipcode | Phone Number | | Organization | | | | + +---------+ + + | EXTERNAL LAB | | | | + +---------+ + + Urinalysis with Microscopic if Indicated (05/05/2013 7:25 PM PST) + + + + + + | Component | Value | Ref Range | Performed | Pathologist | | | | | At | Signature | + + + + + + | Color | YELLOWComment: Testing | | EXTERNAL | | | | performed at [facility];[address] | | LAB | | | | [address];[place] | | | | | | [address] | | | | + + + + + + | Clarity, | CLOUDYComment: Testing | | EXTERNAL | | | Urine | performed at [facility];[address] | | LAB | | | | [address];[place] | | | | | | [address] | | | | + + + + + + | Specific | 1.015Comment: Testing | 1.001 - 1.035 | EXTERNAL | | | [place], | performed at [facility];[address] | | LAB | | | Urine | [address];[place] | | | | | | [address] | | | | + + + + + + | Leukocyte | SMALL (A)Comment: | | EXTERNAL | | | Esterase, | Testing performed at | | LAB | | | Urine | [facility];[address];[place] [address] | | | | + + + + + + | Nitrite, | NEGATIVEComment: Testing | | EXTERNAL | | | Urine | performed at [facility];[address] | | LAB | | | | [address];[place] | | | | | | [address] | | | | + + + + + + | Urobilinoge | 0.2Comment: Testing | mg/dL | EXTERNAL | | | n, Urine | performed at [facility];[address] | | LAB | | | | [address];[place] | | | | | | [address] | | | | + + + + + + | Protein, | NEGATIVEComment: Testing | mg/dL | EXTERNAL | | | Urine | performed at [facility];[address] | | LAB | | | | [address];[place] | | | | | | [address] | | | | + + + + + + | pH, Urine | 6.0Comment: Testing | 4.6 - 8.0 | EXTERNAL | | | | performed at [facility];[address] | | LAB | | | | [address];[place] | | | | | | [address] | | | | + + + + + + | Blood, | LARGE (A)Comment: | | EXTERNAL | | | Urine | Testing performed at | | LAB | | | | [facility];[address];[place] [address] | | | | + + + + + + | Ketones | NEGATIVEComment: Testing | mg/dL | EXTERNAL | | | | performed at [facility];[address] | | LAB | | | | [address];[place] | | | | | | [address] | | | | + + + + + + | Bilirubin, | NEGATIVEComment: Testing | | EXTERNAL | | | Urine | performed at [facility];[address] | | LAB | | | | [address];[place] | | | | | | [address] | | | | + + + + + + | Glucose, | NEGATIVEComment: Testing | mg/dL | EXTERNAL | | | Urine | performed at [facility];[address] | | LAB | | | | [address];[place] | | | | | | [address] | | | | + + + + + + + + | Specimen | + + | Urine specimen | | (specimen) | + + + +---------+ + + | Performing | Address | City/State/Zipcode | Phone Number | | Organization | | | | + +---------+ + + | EXTERNAL LAB | | | | + +---------+ + + POC Glucose (05/05/2013 5:45 PM PST) + + + + + + | Component | Value | Ref Range | Performed | Pathologist | | | | | At | Signature | + + + + + + | Glucose, | 99Comment: Testing | 65 - 99 mg/dL | EXTERNAL | | | Fingerstick | performed at [facility];[address] | | LAB | | | | [address];[place], [place] | | | | | | [address] | | | | + + + + + + + + | Specimen | + + | | + + + +---------+ + + | Performing | Address | City/State/Zipcode | Phone Number | | Organization | | | | + +---------+ + + | EXTERNAL LAB | | | | + +---------+ + + POC Glucose (05/05/2013 4:42 PM PST) + + + + + + | Component | Value | Ref Range | Performed | Pathologist | | | | | At | Signature | + + + + + + | Glucose, | 132 (H)Comment: Testing | 65 - 99 mg/dL | EXTERNAL | | | Fingerstick | performed at [facility];[address] | | LAB | | | | [address];[place], [place] | | | | | | [address] | | | | + + + + + + + + | Specimen | + + | | + + + +---------+ + + | Performing | Address | City/State/Zipcode | Phone Number | | Organization | | | | + +---------+ + + | EXTERNAL LAB | | | | + +---------+ + + Culture, Blood, 2nd Specimen (05/05/2013 3:35 PM PST) + + | Specimen | + + | Blood specimen | | (specimen) | + + + + + | Narrative | Performed At | + + + | Specimen Description BLOOD, PERIPHERAL DRAW | EXTERNAL LAB | | Testing performed | | | at [facility];[address] [place] [address];[place] [address] SPECIAL REQUESTS | | | RAC | | | Testing performed at [facility];[address] [place] [address];[place] [address] | | | CULTURE NO GROWTH 6 DAYS | | | Testing performed | | | at [facility], [address] [place] [address] REPORT STATUS | | | 05/11/2013 FINAL | | + + + + +---------+ + + | Performing | Address | City/State/Zipcode | Phone Number | | Organization | | | | + +---------+ + + | EXTERNAL LAB | | | | + +---------+ + + POC Glucose (05/05/2013 3:34 PM PST) + + + + + + | Component | Value | Ref Range | Performed | Pathologist | | | | | At | Signature | + + + + + + | Glucose, | 144 (H)Comment: Testing | 65 - 99 mg/dL | EXTERNAL | | | Fingerstick | performed at [facility];[address] | | LAB | | | [address];[place], [place] | | | | | | [address] | | | | + + + + + + + + | Specimen | + + | | + + + +---------+ + + | Performing | Address | City/State/Zipcode | Phone Number | | Organization | | | | + +---------+ + + | EXTERNAL LAB | | | | + +---------+ + + XR Chest 1 Vw (05/05/2013 2:51 PM PST) + + | Specimen | + + | | + + + + + | Impressions | Performed At | + + + | 1. Bilateral lower lobe infiltrate. 2. Life-support devices as | | | described. Electronically signed by Naveed Hutsno MD on | | | 05/05/2013 3:01 PM | | + + + + + + | Narrative | Performed At | + + + | [facility] XR CHEST 1 VIEW 05/05/2013 2:51 PM HISTORY: 47 | | | years. Female. Critical care unit patient with respiratory | | | failure, influenza TECHNIQUE: XR CHEST 1 VIEW. AP portable view | | | of the chest 1447 hrs.. Total of 1 images obtained. | | | COMPARISON: None. FINDINGS: Endotracheal tube tip is 2 half | | | centimeters above the level of the anton, in good position. | | | Nasogastric tube extends into the stomach the distal tip is not seen. | | | Cardiac size is normal. Bilateral lower lobe airspace densities | | | relative sparing of the right lung apex in the upper half of the | | | left chest. | | + + + + + | Procedure Note | + + | Ermias Braxton - 11/20/2018 1:53 PM PDT GIL[facility] SALMONXR CHEST 1 VIEW05/05/2013 | | 2:51 PM HISTORY:47 years. Female. Critical care unit patient with respiratory | | failure, influenza TECHNIQUE:XR CHEST 1 VIEW. AP portable view of the chest 1447 hrs.. | | Total of 1 images obtained. COMPARISON:None. FINDINGS:Endotracheal tube tip is 2 half | | centimeters above the level of the [place], in good position. Nasogastric tube extends | | into the stomach the distal tip is not seen. Cardiac size is normal. Bilateral lower | | lobe airspace densities relative sparing of the right lung apex in the upper half of the | | left chest. IMPRESSION: 1. Bilateral lower lobe infiltrate.2. Life-support devices as | | described. | | | |COMPARISON: | |None. | | | |FINDINGS: | |Endotracheal tube tip is 2 half centimeters above the level of the [place], in good position . Nasogastric tube extends into the stomach the distal tip is not seen. Cardiac size is norm al. Bilateral lower lobe airspace densities relative sparing of the | |right lung apex in the upper half of the left chest. | | | |IMPRESSION: | |1. Bilateral lower lobe infiltrate. | |2. Life-support devices as described. | | | | | | | | | + + External Lab: CBC (05/05/2013 1:20 PM PST) + + + + + + | Component | Value | Ref Range | Performed | Pathologist | | | | | At | Signature | + + + + + + | WBC | 6.6Comment: Testing | 3.8 - 11.0 K/uL | EXTERNAL | | | | performed at [facility];[id number] | | LAB | | | | [address];[place] | | | | | | [id number] | | | | + + + + + + | Non- | 4.48Comment: Testing | 3.70 - 5.10 | EXTERNAL | | | Red Blood | performed at [facility] [place];888 | M/uL | LAB | | | Cells | [address];[place] | | | | | Counted | [id number] | | | | + + + + + + | Hemoglobin | 12.4Comment: Testing | 11.3 - 15.5 | EXTERNAL | | | | performed at [facility] [place];888 | g/dL | LAB | | | | [address];[place] | | | | | | [id number] | | | | + + + + + + | Hematocrit, | 36.1Comment: Testing | 34.0 - 46.0 % | EXTERNAL | | | POC | performed at [facility] [facility];[address] | | LAB | | | | [address];[place] | | | | | | [address] | | | | + + + + + + | MCV | 80.6Comment: Testing | 80.0 - 100.0 fl | EXTERNAL | | | | performed at [facility];[address] | | LAB | | | | [address];[place] | | | | | | [address] | | | | + + + + + + | MCH | 27.7Comment: Testing | 27.0 - 34.0 pg | EXTERNAL | | | | performed at [facility];[address] | | LAB | | | | [address];[place] | | | | | | [address] | | | | + + + + + + | MCHC | 34.3Comment: Testing | 32.0 - 35.5 | EXTERNAL | | | | performed at [facility];888 | g/dL | LAB | | | | [address];[place] | | | | | | [address] | | | | + + + + + + | RDW-CV | 41.1Comment: Testing | 37 - 53 fl | EXTERNAL | | | | performed at [facility];[address] | | LAB | | | | [address];[place] | | | | | | [address] | | | | + + + + + + | Platelet | 211Comment: Testing | 150 - 400 K/uL | EXTERNAL | | | Count | performed at [facility];[address] | | LAB | | | Plasma | [address];[place] | | | | | | [address] | | | | + + + + + + | MPV | 8.2Comment: Testing | fl | EXTERNAL | | | | performed at [facility];[address] | | LAB | | | | [address];[place] | | | | | | [address] | | | | + + + + + + | Differentia | AUTOMATEDComment: | | EXTERNAL | | | l Type | Testing performed at | | LAB | | | | [facility];[address];[place] [address] | | | | + + + + + + | % Segmented | 70.7 | % | EXTERNAL | | | | | | LAB | | | Neutrophils | | | | | + + + + + + | % | 22.2 | % | EXTERNAL | | | Lymphocytes | | | LAB | | + + + + + + | % Monocytes | 6.1 | % | EXTERNAL | | | | | | LAB | | + + + + + + | % | 0.0 | % | EXTERNAL | | | Eosinophils | | | LAB | | + + + + + + | % Basophils | 1.0 | % | EXTERNAL | | | | | | LAB | | + + + + + + | Absolute | 4.7 | 1.9 - 7.4 K/uL | EXTERNAL | | | Segmented | | | LAB | | | Neutrophils | | | | | + + + + + + | Absolute | 1.5 | 1.0 - 3.9 K/uL | EXTERNAL | | | Lymphocytes | | | LAB | | + + + + + + | Absolute | 0.4 | 0 - 0.8 K/uL | EXTERNAL | | | Monocytes | | | LAB | | + + + + + + | Absolute | 0.0 | 0 - 0.5 K/uL | EXTERNAL | | | Eosinophils | | | LAB | | + + + + + + | Absolute | 0.1 | 0 - 0.1 K/uL | EXTERNAL | | | Basophils | | | LAB | | + + + + + + + + | Specimen | + + | Blood specimen | | (specimen) | + + + +---------+ + + | Performing | Address | City/State/Zipcode | Phone Number | | Organization | | | | + +---------+ + + | EXTERNAL LAB | | | | + +---------+ + + Phosphorus (05/05/2013 1:20 PM PST) + + + + + + | Component | Value | Ref Range | Performed | Pathologist | | | | | At | Signature | + + + + + + | PHOSPHORUS | 1.8 (L)Comment: Testing | 2.3 - 4.8 mg/dL | EXTERNAL | | | | performed at [facility];[address] | | LAB | | | | [address];[place], [place] | | | | | | [address] | | | | + + + + + + + + | Specimen | + + | Blood specimen | | (specimen) | + + + +---------+ + + | Performing | Address | City/State/Zipcode | Phone Number | | Organization | | | | + +---------+ + + | EXTERNAL LAB | | | | + +---------+ + + Magnesium (05/05/2013 1:20 PM PST) + + + + + + | Component | Value | Ref Range | Performed | Pathologist | | | | | At | Signature | + + + + + + | Magnesium | 1.5 (L)Comment: Testing | 1.7 - 2.4 mg/dL | EXTERNAL | | | | performed at [facility] | | LAB | | | | [facility];[place], [place] | | | | | | [address] | | | | + + + + + + + + | Specimen | + + | Blood specimen | | (specimen) | + + + +---------+ + + | Performing | Address | City/State/Zipcode | Phone Number | | Organization | | | | + +---------+ + + | EXTERNAL LAB | | | | + +---------+ + + Comprehensive Metabolic Panel (05/05/2013 1:20 PM PST) + + + + + + | Component | Value | Ref Range | Performed | Pathologist | | | | | At | Signature | + + + + + + | Na | 139Comment: Testing | 135 - 143 | EXTERNAL | | | | performed at [facility];888 | mmol/L | LAB | | | | [address];[place], [place] | | | | | | [address] | | | | + + + + + + | K | 3.4 (L)Comment: Testing | 3.5 - 4.9 | EXTERNAL | | | | performed at [facility];888 | mmol/L | LAB | | | | [address];[place] | | | | | | [address] | | | | + + + + + + | Cl | 104Comment: Testing | 99 - 109 mmol/L | EXTERNAL | | | | performed at [facility];[address] | | LAB | | | | [address];[place] | | | | | | [address] | | | | + + + + + + | CO2 | 27Comment: Testing | 23 - 32 mmol/L | EXTERNAL | | | | performed at [facility];[address] | | LAB | | | | [address];[place] | | | | | | [address] | | | | + + + + + + | Anion Gap | 11Comment: Testing | 5 - 20 mmol/L | EXTERNAL | | | | performed at [facility];[address] | | LAB | | | | [address];[place] | | | | | | [address] | | | | + + + + + + | Glucose, | 188 (H)Comment: Testing | 65 - 99 mg/dL | EXTERNAL | | | Fasting | performed at [facility];[address] | | LAB | | | | [address];[place] | | | | | | [address] | | | | + + + + + + | BUN | 3 (L)Comment: Testing | 8 - 25 mg/dL | EXTERNAL | | | | performed at [facility];[address] | | LAB | | | | [address];[place] | | | | | | [address] | | | | + + + + + + | Creatinine | 0.81Comment: Testing | 0.50 - 1.00 | EXTERNAL | | | | performed at [facility];888 | mg/dL | LAB | | | | [address];[place] | | | | | | [address] | | | | + + + + + + | BUN/Creatin | 4Comment: Testing | | EXTERNAL | | | ine Ratio | performed at [facility];[address] | | LAB | | | | [address];[place] | | | | | | [address] | | | | + + + + + + | Calcium | 7.6 (L)Comment: Testing | 8.5 - 10.2 | EXTERNAL | | | | performed at [facility];888 | mg/dL | LAB | | | | [address];[place] | | | | | | [address] | | | | + + + + + + | Protein, | 6.3Comment: Testing | 6.3 - 8.2 g/dL | EXTERNAL | | | Total | performed at [facility];[address] | | LAB | | | | [address];[place] | | | | | | [address] | | | | + + + + + + | Albumin | 2.2 (L)Comment: Testing | 3.6 - 5.0 g/dL | EXTERNAL | | | | performed at [facility];[address] | | LAB | | | | [address];[place] | | | | | | [address] | | | | + + + + + + | Globulin | 4.1Comment: Testing | 1.3 - 4.9 g/dL | EXTERNAL | | | | performed at [facility];[address] | | LAB | | | | [address];[place] | | | | | | [address] | | | | + + + + + + | A/G Ratio | 0.5 (L)Comment: Testing | 1.0 - 2.4 | EXTERNAL | | | | performed at [facility];[address] | | LAB | | | | [address];[place] | | | | | | [address] | | | | + + + + + + | Bilirubin | 0.5Comment: Testing | 0.1 - 1.5 mg/dL | EXTERNAL | | | Total | performed at [facility];[address] | | LAB | | | | [address];[place] | | | | | | [address] | | | | + + + + + + | ALP, | 99Comment: Testing | 35 - 115 U/L | EXTERNAL | | | External | performed at [facility];[address] | | LAB | | | | [address];[place] | | | | | | [address] | | | | + + + + + + | AST | 134 (H)Comment: Testing | 10 - 45 U/L | EXTERNAL | | | | performed at [facility];[address] | | LAB | | | | [address];[place] | | | | | | [address] | | | | + + + + + + | ALT | 157 (H)Comment: Testing | 10 - 65 U/L | EXTERNAL | | | | performed at [facility];[address] | | LAB | | | | [address];[place] | | | | | | [address] | | | | + + + + + + | Estimated | >60Comment: GFR <60: | mL/min/1.73m2 | EXTERNAL | | | GFR | CHRONIC KIDNEY DISEASE, | | LAB | | | | IF FOUND OVER A 3 MONTH | | | | | | PERIOD.GFR <15: KIDNEY | | | | | | FAILURE.FOR | | | | | | AMERICANS, MULTIPLY THE | | | | | | CALCULATED GFR BY | | | | | | 1.210.Testing performed | | | | | | at [facility];[address] [place] [address] | | | | | | Blvd;[place] [address] | | | | + + + + + + + + | Specimen | + + | Blood specimen | | (specimen) | + + + +---------+ + + | Performing | Address | City/State/Zipcode | Phone Number | | Organization | | | | + +---------+ + + | EXTERNAL LAB | | | | + +---------+ + + Culture, Blood (05/05/2013 1:20 PM PST) + + | Specimen | + + | Blood specimen | | (specimen) | + + + + + | Narrative | Performed At | + + + | Specimen Description BLOOD, PERIPHERAL DRAW | EXTERNAL LAB | | Testing performed | | | at [facility];[address] [place] [address] SPECIAL REQUESTS | | | RAC | | | Testing performed at [facility];[address] [place] [address] | | | CULTURE NO GROWTH 6 DAYS | | | Testing performed | | | at [facility], [address] [place] [address] REPORT STATUS | | | 05/11/2013 FINAL | | + + + + +---------+ + + | Performing | Address | City/State/Zipcode | Phone Number | | Organization | | | | + +---------+ + + | EXTERNAL LAB | | | | + +---------+ + + POC Glucose (05/05/2013 1:19 PM PST) + + + + + + | Component | Value | Ref Range | Performed | Pathologist | | | | | At | Signature | + + + + + + | Glucose, | 191 (H)Comment: Testing | 65 - 99 mg/dL | EXTERNAL | | | Fingerstick | performed at [facility];[address] | | LAB | | | | [address];[place] | | | | | | [address] | | | | + + + + + + + + | Specimen | + + | | + + + +---------+ + + | Performing | Address | City/State/Zipcode | Phone Number | | Organization | | | | + +---------+ + + | EXTERNAL LAB | | | | + +---------+ + + MRSA CARLINE (05/05/2013 12:57 PM PST) + + | Specimen | + + | | + + + + + | Narrative | Performed At | + + + | SOURCE NARES(NOSE) | EXTERNAL LAB | | Testing performed at [facility];[address] [place] [address];[place] [address] MRSA PCR | | | NEGATIVE Testing performed at | | | [facility];[address] [place] [address];[place] [address] | | + + + + +---------+ + + | Performing | Address | City/State/Zipcode | Phone Number | | Organization | | | | + +---------+ + + | EXTERNAL LAB | | | | + +---------+ + + Gram Stain, reflex Sputum Culture (05/05/2013 12:45 PM PST) + + | Specimen | + + | Body fluid sample | | (specimen) | + + + + + | Narrative | Performed At | + + + | Specimen Description TRACHEAL ASPIRATE | EXTERNAL LAB | | Testing performed at | | | [facility];[address] [facility];[place] [address] GRAM STAIN | | | GREATER THAN 10 WBCS/LPF | | | LESS THAN 10 SEC/LPF | | | NO ORGANISMS SEEN | | | Testing performed at [facility], [address] | | [facility], [place] [address] CULTURE | | | NO GROWTH 2 DAYS | | | Testing performed at [facility], [address] [facility], | | | [place] [address] REPORT STATUS | | | 05/07/2013 FINAL | | + + + + +---------+ + + | Performing | Address | City/State/Zipcode | Phone Number | | Organization | | | | + +---------+ + + | EXTERNAL LAB | | | | + +---------+ + + documented in this encounter Visit Diagnoses + + | Diagnosis | + + | Acute respiratory failure (HCC) Acute respiratory failure | + + | Abnormal LFTs (liver function tests) Other abnormal blood chemistry | + + | Acute respiratory distress syndrome (ARDS) ([facility]) Other pulmonary insufficiency, not | | elsewhere classified, following trauma and surgery | + + | Influenza A Influenza with other respiratory manifestations | + + | Morbid obesity with BMI of 45.0-49.9, adult ([facility]) | + + | Poorly controlled diabetes mellitus ([facility]) Type II or unspecified type diabetes | | mellitus without mention of complication, not stated as uncontrolled | + + | Secondary bacterial pneumonia | + + documented in this encounter
--- OUTSIDE RECORDS SUMMARY | ~2019-12-28 | XMS | Encounter Summary ---
Demographics + + + | Address | [address] | | | [place] [address] | + + + | Home Phone | | + + + | Preferred Language | Unknown | + + + | Marital Status | | + + + | Holiness Affiliation | Unknown | + + + | Race | White | + + + | Ethnic Group | Not or | + + + Author + + + | Author | [facility] | | | and [place] | + + + | Organization | [facility] | | | [...] Team Providers + +------+ + | Care Cupola Repairer Name | Role | Phone | + +------+ + | Mynor Kam MD | PCP | | + +------+ + Reason for Visit + + + | Reason | Comments | + + + | Medication Refill | | + + + Encounter Details +--------+--------+ + + + | Date | Type | Department | Care Team | Description | +--------+--------+ + + + | 05/06/ | Refill | [facility] | Rosa M Raman, | Medication Refill | | 2020 | | NEUROLOGY [address] | MD [address] | | | | | [address] | [address] | | | | | [place], [place] | [place] [address] | | | | | [address] | [phone] | | | | | [phone] | | | +--------+--------+ + + + Social History + +-------+ [...] + + documented as of this encounter Miscellaneous Notes Telephone Encounter - Miranda Coulter Business Process Architect - 05/07/2019 4:22 PM PSTGabapent in 300 mg cap TAKE 4 CAPSULES BY MOUTH EVERY MORNING THEN TAKE 3 CAPSULES EVERY NOON THEN 3 CAPSULES EVER Y EVENING Last filled 04/05/09 x300 with 0 refills Last seen 08/13/18 Next visit 06/01/19 Per last encounter Gabapentin 300mg Take 4 caps morning, continue 3 caps at noon and 3 caps at night. Advised her that she had been taking excessive amounts of Gabapentin in the morning (detailed in HPI) docum ented in this encounter Plan of Treatment +--------+---------+ + + + | Date | Type | Specialty | Care Team | Description | +--------+---------+ + + + | 03/22/ | Office | Neurology | Elaine Andrews, | | 2019 | Visit | | MD Kim STOUT | | | | | | [address] | | | | | | [place] [address] | | | | | | [phone] | | | | | | | | +--------+---------+ + + + documented as of this encounter Visit Diagnoses Not on filedocumented in this encounter"
--- OUTSIDE RECORDS SUMMARY | ~2019-12-28 | XMS | Encounter Summary ---
Demographics + + + | Address | [address] | | | [place] [address] | + + + | Home Phone | | + + + | Preferred Language | Unknown | + + + | Marital Status | | + + + | Episcopalian Affiliation | Unknown | + + + | Race | White | + + + | Ethnic Group | Not or | + + + Author + + + | Author | [facility] | | | and [place] | + + + | Organization | [facility] | | | [...] Team Providers + +------+ + | Care Ornament Setter Name | Role | Phone | + +------+ + PCP | Unavailable | + +------+ + Encounter Details +--------+ + + + + | Date | Type | Department | Care Team | Description | +--------+ + + + + | 11/08/ | Emergency | [facility] | Patrick Huston, | Patient left before | | 2014 | | MEDICAL CENTER | MD Toi Stanton | treatment completed | | | | EMERGENCY CENTER | [place] | | | | | [address] | [address] | | | | | [place], [place] | [phone] | | | | | [address] | | | | | | [phone] | | | +--------+ + + + [...] + + documented as of this encounter ED Notes Conversion Transaction, Provider Unknown - 11/08/2013 9:56 PM PDTFormatting of this note m ight be different from the original. ED Notes by Florencia Lancaster RN at 11/08/132155 Author: Florencia Lancaster RN Service: (none) Author Type: Registered Nurse Filed: 11/08/132155 Date of Service: 11/08/132155 Status: Signed Net Software Engineer: Florencia Lancaster RN (Registered Nurse) No belongings in pt room, no people noted in pt room. Florencia Lancaster RN 11/08/132155 onver elaina Transaction, Provider Unknown - 11/08/2013 9:52 PM PDT ED Notes by Marysol Kramer RN at 11/08/132151 Author: Marysol Kramer RN Service: (none) Author Type: Registered Nurse Filed: 11/08/132151 Date of Service: 11/08/132151 Status: Signed Net Software Engineer: Marysol Kramer RN (Registered Nurse) Patient left the room at this time. Marysol Kramer RN 11/08/132151 onver elaina Transaction, Provider Unknown - 11/08/2013 9:49 PM PDT ED Notes by Marysol Kramer RN at 11/08/132148 Author: Marysol Kramer RN Service: (none) Author Type: Registered Nurse Filed: 11/08/132151 Date of Service: 11/08/132148 Status: Signed Net Software Engineer: Marysol Kramer RN (Registered Nurse) Pt caregiver out to the nurse's station asking the same question she just asked their prima ry nurse, HERIBERTO Don. I let the pt's caregiver know that she hadn't had a chance to speak with the doctor yet. She then asked if it would be awhile and i stated "hopefully not too long, but a few minutes, yes." She replied "you don't have to have an attitude about it and went b ack into the patients room." Marysol Kramer RN 11/08/132151 onver elaina Transaction, Provider Unknown - 11/08/2013 9:42 PM PDT ED Notes by Florencia Lancaster RN at 11/08/132141 Author: Florencia Lancaster RN Service: (none) Author Type: Registered Nurse Filed: 11/08/132142 Date of Service: 11/08/132141 Status: Signed Net Software Engineer: Florencia Lancaster RN (Registered Nurse) Pt caregiver at nurses station asking if pt can just go home, pt states she has a doctor's appt at nine tomorrow and wonders if she can have something orally for nausea and diarrhea Florencia Lancaster RN 11/08/132142 ranshelton chisholm, Patrick Huynh MD - 11/08/2013 9:22 PM PDT ED Provider Notes by Patrick Huston MD at 11/08/132121 Author: Patrick Huston MD Service: (none) Author Type: Physician Filed: 11/09/13 0237 Date of Service: 11/08/132121 Status: Signed Net Software Engineer: Patrick Huston MD (Physician) [facility] Department of Emergency Medicine 9:22 PM History of Present Illness Patient Identification Gilma Araiza is a 48 y.o. female. Patient information was obtained from patient. History/Exam limitations: none. Patient presented to the Emergency Department by: Car Chief Complaint Chief Complaint Patient presents with Shortness of Breath Emesis Diarrhea The patient presents to ED with complaints of diarrhea. Onset of symptoms was 4 days ago, w ith an episodic course since that time. The patient describes the symptoms as diarrhea "cons tantly", "all day every time I eat". Pt states she has not been taking her medications becau se of her nausea and the fact that taking anything by mouth seems to cause immediate diarrhe a. The patient also complains of vomiting 4 days ago (none for the last 3 days), headache, s hortness of breath, chest tightness, decreased urination (pt states she hasn't urinated sinc e yesterday), low grade fever. Per daughter, pt usually able to talk well, but now sounds ex hausted and "like she's gasping for air". Pt daughter cares for the pt daily at home. PMHx: tracheostomy since April 2013. The tracheostomy was placed due to being unable to g et the pt off of the ventilator. Hx diabetes, fibromyalgia, osteoarthritis. Pt had recent pn eumonia. PSHx: appendectomy, cholecystectomy, hysterectomy, tubal ligation. PCP: MARY VALDEZ Past Medical History Diagnosis Date Poorly controlled diabetes mellitus Morbid obesity with BMI of 45.0-49.9, adult Bronchitis Influenza A (H1N1) 05/02/2013 Acute respiratory failure with hypoxia 05/04/2013 due to influenza PNA DVT (deep venous thrombosis) in thigh; no longer on coumadin Asthma Shingles Ovarian mass Diabetes mellitus type II Sleep apnea Unspecified visual disturbance Osteoarthritis Fibromyalgia Restrictive airway disease Past Surgical History Procedure Date Appendectomy Total abdominal hysterectomy Tonsillectomy and adenoidectomy Knee arthroscopy left knee Tracheal surgery 05/11/2013 Procedure: TRACHEOSTOMY; Surgeon: Fabián Novoa MD; Location: [facility] MAIN OR; Service: ENT ; Laterality: N/A; move to OR table, need harmonic scalpel with focus HP, patient [address] Cholecystectomy Breast surgery Tubal ligation Prior to Admission medications Medication Sig Start Date End Date Taking? Authorizing Provider albuterol (ACCUNEB) 0.63 MG/3ML nebulizer solution Take 3 mLs by nebulization every 6 (six) hours as needed for Wheezing. 06/15/13 06/15/14 Esperanza Gutierrez MD ALBUTEROL IN Inhale 1 puff into the lungs every 4 (four) hours as needed. Historical Pro vider azithromycin (ZITHROMAX) 250 MG tablet Take 1 tablet by mouth daily. TAKE TWO TABLETS BY MO UT NOW then ONE TABLET DAILY DAY 2-5 11/04/13 11/09/13 Esperanza Gutierrez MD beclomethasone (QVAR) 80 MCG/ACT inhaler Inhale 1 puff into the lungs 2 (two) times daily. 06/15/13 06/15/14 Esperanza Gutierrez MD DULoxetine (CYMBALTA) 30 MG capsule Take 30 mg by mouth daily. Historical Provider insulin glargine (LANTUS) 100 UNIT/ML injection Inject 20 Units into the skin 2 (two) times daily. Indications: Type 2 Diabetes Historical Provider oxycodone (OXY-IR) 5 MG capsule Take 5 mg by mouth every 4 (four) hours as needed. Histo rical Provider Allergies Allergen Reactions Amoxicillin-Pot Clavulanate Other (See Comments) Able to take meropenem as of 04/2013 Metal (Other-Chemical) Rash Penicillins Other (See Comments) Able to take meropenem as of 04/2013 History Social History Marital Status: Spouse Name: N/A Number of Children: N/A Years of Education: N/A Occupational History Not on file. Social History Main Topics Smoking status: Never Smoker Smokeless tobacco: Never Used Alcohol Use: No Drug Use: No Sexually Active: Not on file Other Topics Concern Not on file Social History Narrative No narrative on file History reviewed. No pertinent family history. Review of Systems Constitutional: Positive for low grade fever Negative for chills Eyes: Negative for vision changes Nose: Negative for congestion, nosebleeds Throat: Negative for sore throat CV/Resp: Positive for shortness of breath and chest tightness GI: Positive for nausea, vomiting, and diarrhea : Positive for decreased urination (hasn't urinated since yesterday) Negative for dysuria Musculoskeletal: Negative for back pain, joint pain Skin: Negative for rash Neuro/Psych: Positive for headache Endo/heme/Lymph: Negative for swollen lymph nodes, easy bruising All other systems reviewed and negative except as noted. Physical Exam BP 133/85 | Pulse 98 | Temp 98.5 F (36.9 C) (Temporal) | Resp 17 | Wt 117.935 kg (260 l b) | SpO2 100% Vital signs interpretation: Normal Pulse Oximetry interpretation: Normal General: Alert, in no apparent distress Eyes: Normal inspection, pupils equal and round, non-icteric ENT: Ears normal Nose normal Pharynx normal Neck: Tracheostomy clean and well placed Supple Cardiovascular: Rate and rhythm normal No murmurs Respiratory: Breath sounds normal bilaterally No rales, wheezing or rhonchi Abdomen: Soft, non-tender, non-distended No guarding or rebound Back: Normal inspection Extremities: Feet warm with good pulses Skin: Color normal Warm and dry No rash Neuro: Alert, no AMS No gross motor/sensory deficits Medical Decision Making and Emergency Department Course ED Department Course 9:22 PM Patient presents to ED with multiple complaints. On exam the patient has a tracheos rob which appears clean and well placed. My DDx includes, but is not limited to: dehydratio n, vomiting, diarrhea, acute gastroenteritis. Patient is stable at this time. Immediately after initial interview was complete and before any orders were initiated, pt a nd caregiver reportedly became unhappy and chose to leave, stating they had an appointment w ith their PCP in the morning. Records Reviewed Old medical records. Nursing notes. Nursing notes. Nursing notes reviewed for chief complaint, medications, clinical presentati on and vital signs. Old ED records reviewed (Using the electronic record system of [facility], Hermila tirado reviewed the records with regard to the past medical/surgical history, previous medic ations, and allergies). Pt last seen 06/10/13 for pneumonia. Laboratory Evaluation Results None Radiology and EKG Evaluation Imaging Results None ED Diagnosis Final diagnosis Patient left before treatment completed Disposition: ED Disposition LW Follow-up Information Follow up With Details Comments Contact Info Mray Valdez PA-C Discharge Medications: New Prescriptions No new medications Additional Documentation Procedures Attending Note: Documentation assistance provided by Dara Mojica (Scribe). Information recorded by the scribe has been reviewed and validated by me. I ron tran with its contents. MD Patrick Hassan MD 11/09/13 0237 onversio n Transaction, Provider Unknown - 11/08/2013 9:21 PM PDTFormatting of this note might be di fferent from the original. ED Notes by Florencia Lancaster RN at 11/08/132120 Author: Florencia Lancaster RN Service: (none) Author Type: Registered Nurse Filed: 11/08/132127 Date of Service: 11/08/132120 Status: Signed Net Software Engineer: Florencia Lancaster RN (Registered Nurse) Pt c/o N/V/D since Friday, last emesis Friday, but pt describes mult episodes diarrhea. P t states she has not been able to take her medications because she is too ill. Pt states she was recently discharged from hospital after battling ARDS/restrictive airway disease for 4 weeks. Pt had trach placed in April because she could not get off ventilator. Pt last urin ated yesterday. Florencia Lancaster RN 11/08/132127 docume nted in this encounter Plan of Treatment +--------+---------+ + + + | Date | Type | Specialty | Care Team | Description | +--------+---------+ + + + | 03/22/ | Office | Neurology | Elaine Andrews, | | | 2019 | Visit | | MD [address] | | | | | | [address] | | | | | | [place] [address] | | | | | | [phone] | | | | | | | | +--------+---------+ + + + documented as of this encounter Visit Diagnoses + + | Diagnosis | + + | Patient left before treatment completed Personal history of noncompliance with | | medical treatment, presenting hazards to health | + + documented in this encounter
--- OUTSIDE RECORDS SUMMARY | ~2019-12-28 | XMS | Encounter Summary ---
Demographics + + + | Address | [address] | | | [place] [address] | + + + | Home Phone | | + + + | Preferred Language | Unknown | + + + | Marital Status | | + + + | Islam Affiliation | Unknown | + + + | Race | White | + + + | Ethnic Group | Not or | + + + Author + + + | Author | [facility] | | | and [place] | + + + | Organization | [facility] | | | and [...] Team Providers + +------+ + | Care Family Sociologist Name | Role | Phone | + +------+ + PCP | Unavailable | + +------+ + Encounter Details +--------+ + + + + | Date | Type | Department | Care Team | Description | +--------+ + + + + | 10/06/ | Hospital | [facility] IP | Conversion | Unknown cause of | | 2015 | Encounter | CONVERSION [address] | Transaction, | injury | | | | [address] | Provider Unknown | | | | | [place] | [phone] | | | | | [address] | | | | | | [phone] | | | +--------+ + + + [...] + + +---------+ + + | albuterol (PROAIR | Inhale 2 puffs into | 1 | 3 | 06/12/19 | | | HFA) 90 mcg/puff | the lungs every 4 | Inhaler | | 16 | 7 | | inhaler | (four) hours as | | | | | [...] D | | | | | | [place] [address] | | | | | | [phone] | | | | | | | | +--------+---------+ + + + documented as of this encounter Procedures + +--------+ + + + | Procedure Name | Priori | Date/Time | Associated Diagnosis | Comments | | | ty | | | | + +--------+ + + + | MRI BRAIN WO | Routin | 06/29/2015 | | Results for this | | CONTRAST | e | 8:07 AM | | procedure are in the | | | | PDT | | results section. | + +--------+ + + + documented in this encounter Results MRI Brain wo Contrast (06/29/2015 8:07 AM PDT) + + | Specimen | + + | | + + + + + | Narrative | Performed At | + + + | This is a non-reportable procedure without a radiologist report and | | | is used for image storage only | | + + + + + | Procedure Note | + + | Ermias Braxton Conversion - 11/19/2018 7:20 PM PDT This is a non-reportable procedure | | without a radiologist report and isused for image storage only | + + documented in this encounter Visit Diagnoses + + | Diagnosis | + + | Unknown cause of injury Unspecified accident | + + documented in this encounter"
--- OUTSIDE RECORDS SUMMARY | ~2019-12-28 | XMS | Encounter Summary ---
Demographics + + + | Address | [address] | | | [place] [address] | + + + | Home Phone | | + + + | Preferred Language | Unknown | + + + | Marital Status | | + + + | Evangelical Affiliation | Unknown | + + + | Race | White | + + + | Ethnic Group | Not or | + + + Author + + + | Author | [facility] | | | and [place] | + + + | Organization | [facility] | | | [...] Team Providers + +------+ + | Care Cyber Analyst Name | Role | Phone | + [...] | | | | [place] | [phone] | | | | | [address] | | | | | | [phone] | | | +--------+ + + + [...] | | | | | [place] [address] | | | | | | [phone] | | | | | | | | +--------+---------+ + + + documented as of this encounter Visit Diagnoses Not on filedocumented in this encounter"
--- OUTSIDE RECORDS SUMMARY | ~2019-12-28 | XMS | Encounter Summary ---
Demographics + + + | Address | [address] | | | [place] [address] | + + + | Home Phone | | + + + | Preferred Language | Unknown | + + + | Marital Status | | + + + | Quaker Affiliation | Unknown | + + + | Race | White | + + + | Ethnic Group | Not or | + + + Author + + + | Author | [facility] | | | and [place] | + + + | Organization | [facility] | | | [...] Providers + +------+ + | Care Medical Records Assistant Name | Role | Phone | + +------+ + | Mynor Kam MD | PCP | | + +------+ + Reason for Visit + +--------+ + | Reason | Onset | Comments | | | Date | | + +--------+ + | Medication Prior | 06/01/ | Ashley RUSSELL- AImovisarika 140 mg requested by | | Authorization | 2020 | Darryl | + +--------+ + | Other | 06/09/ | Placed on Dr. Andrews's desk for review/ then sent to | | | 2019 | scans | + +--------+ + Encounter Details +--------+ + + + + | Date | Type | Department | Care Team | Description | +--------+ + + + + | 06/01/ | Telephone | [facility] | [place], | Medication Prior | | 2019 | | NEUROLOGY [address] | ROBERTA Guaman | Authorization (Cover | | | | [place] | | my meds PA- AImovig | | | | [place], [place] | | 140 mg requested by | | | | [address] | | Dr. Andrews); | | | | [phone] | | Other (Placed on | | | | | | Darryl's desk | | | | | | for review/ then | | | | | | sent to scans) | +--------+ + + + + Social [...] this encounter Miscellaneous Notes Telephone Encounter - Rowena Scott CMA - 06/10/2019 8:07 AM PSTEOCCO Notice of Acti on benefit Denial. Medication: Aimovig 140 mg injection from May 2019- May 2020. Reason for denial: [facility] does not cover all services and supplies. Unable to be cov ered under [facility] due to dual coverage. [facility] does not cover medication unde r patient's benefits. Please ask pharmacy to bill Medicare Part D benefits for medication. E lectronically signed by Rowena Scott CMA at 06/10/2019 8:10 AM PSTTelephone Encounter - Rowena Scott CMA - 06/01/2019 2:58 PM PSTStarted PA for Aimovig 140 SQ inject. On cover my meds. Gaston # (Gaston: [id number]) Message prompt: [facility] has not yet replied to your PA request. If [facility] has not replied to your request within 24 hours, please contact [facility] at [phone]. Will await for response. 3:0 1 PM PSTdocumented in this encounter Plan of Treatment +--------+---------+ + + + | Date | Type | Specialty | Care Team | Description | +--------+---------+ + + + | 03/22/ | Office | Neurology | Elaine Andrews, | | | 2019 | Visit | [address] | | | | | | [address] | | | | | | [place] [address] | | | | | | [phone] | | | | | | | | +--------+---------+ + + + documented as of this encounter Visit Diagnoses Not on filedocumented in this encounter"
--- OUTSIDE RECORDS SUMMARY | ~2019-12-28 | XMS | Encounter Summary ---
Demographics + + + | Address | [address] | | | [place] [address] | + + + | Home Phone | | + + + | Preferred Language | Unknown | + + + | Marital Status | | + + + | Mosque Affiliation | Unknown | + + + | Race | White | + + + | Ethnic Group | Not or | + + + Author + + + | Author | [facility] | | | and [place] | + + + | Organization | [facility] | | | [...] Team Providers + +------+ + | Care Real Estate Broker Name | Role | Phone | + [...] + + | 06/01/ | Telephone | [facility] | [place], | Medication Prior | | 2019 | | NEUROLOGY [address] | ROBERTA Guaman | Authorization (Cover | | | | [place] | | my meds PA- AImovig | | | | [place], [place] | | 140 mg requested by | | | | [phone] | | Dr. Andrews); | | | | [phone] | | Other (Placed on | | [...] May 2019- May 2020. Reason for denial: [facility] does not cover all services and supplies. Unable to be cov ered under [facility] due to dual coverage. [facility] does not cover medication unde r patient's benefits. Please ask pharmacy to bill Medicare Part D benefits for medication. E lectronically signed by Rowena Scott CMA at 06/10/2019 8:10 AM PSTTelephone Encounter - Rowena Scott CMA - 06/01/2019 2:58 PM PSTStarted PA for Aimovig 140 SQ inject. On cover my meds. Gaston # (Gaston: [id number]) Message prompt: [facility] has not yet replied to your PA request. If [facility] has not replied to your request within 24 hours, please contact [facility] at [phone]. Will await for response. 3:0 1 PM [...] | | | | | [place] [address] | | | | | | [phone] | | | | | | | | +--------+---------+ + + + documented as of this encounter Visit Diagnoses Not on filedocumented in this encounter"
--- OUTSIDE RECORDS SUMMARY | ~2019-12-28 | XMS | Encounter Summary ---
Demographics + + + | Address | [address] | | | [place] [address] | + + + | Home Phone | | + + + | Preferred Language | Unknown | + + + | Marital Status | | + + + | Faith Affiliation | Unknown | + + + | Race | White | + + + | Ethnic Group | Not or | + + + Author + + + | Author | [facility] | | | and [place] | + + + | Organization | [facility] | | | and [place] | + + + | Address | Unknown | + + + | Phone | Unavailable | + + + Support + + +---------+ + | Name | Relationship | Address | Phone | + + +---------+ + | Maado Araiza | ECON | Unknown | | + + +---------+ + Care Team Providers + +------+ + | Care Costume Designer Name | Role | Phone | + +------+ + | Mynor Kam MD | PCP | | + +------+ + Encounter Details +--------+---------+ + + + | Date | Type | Department | Care Team | Description | +--------+---------+ + + + | 06/01/ | Office | [facility] | Matt, | Uncontrolled | | 2020 | Visit | PULMONOLOGY [address] | Esperanza Arora, | moderate persistent | | | | [place] | MD [address] | asthma (Primary Dx); | | | | [facility] | [place], | ARDS survivor; | | | | [address] | [place] [address] | Restrictive lung | | | | [phone] | [phone] | disease; Chronic | | | | | | respiratory failure | | | | | | with hypoxia (HCC); | | | | | | COOPER (obstructive | | | | | | sleep apnea); | | | | | | Gastroesophageal | | | | | | reflux disease | | | | | | without esophagitis | +--------+---------+ + + + Social History [...] + + documented as of this encounter Last Filed Vital Signs + + + + + | Vital Sign | Reading | Time Taken | Comments | + + + + + | Blood Pressure | 87/50 | 06/01/2019 10:27 AM | | | | | PST | | + + + + + | Pulse | 85 | 06/01/2019 10:27 AM | | | | | PST | | + + + + + | Temperature | 36.4 C (97.6 F) | 06/01/2019 10:27 AM | | | | | PST | | + + + + + | Respiratory Rate | - | - | | + + + + + | Oxygen Saturation | 99% | 06/01/2019 10:27 AM | | | | | PST | | + + + + + | Inhaled Oxygen | - | - | | | Concentration | | | | + + + + + | Weight | 141.5 kg (312 lb) | 06/01/2019 10:27 AM | | | | | PST | | + + + + + | Height | - | - | | + + + + + | Body Mass Index | 50.36 | 10/29/2018 10:01 AM | | | | | PDT | | + + + + + documented in this encounter Progress Notes Esperanza Gutierrez MD - 06/01/2019 10:30 AM PSTFormatting of this note might be d ifferent from the original. Subjective Patient ID: Gilma Araiza is a 53 y.o. female with a history of acute [...] COOPER and obesity, who was admitted to [facility] from 05/05/13 to 05/14/13 for acut e respiratory failure from ARDS due to H1N1 infection. Her course was long and difficult -sh e eventually underwent a tracheostomy insertion by Dr Bright Teixeira), and then she was eventua lly moved to an acute Rehab facility close to [place] ([facility]). She reports abi t she had a horrible time here. After close to a week of staying in the facility, her trache ostomy tube managed to fall out and she suffered from hypoxemia with bilateral lung atelecta sis. She was brought to [facility] where they put her trach back. She also suffered from a P NA at that time, and she was placed on antibiotics. Hospitalization: July 2017 for Influenza B; May 2019 for UGIB post EGD and biopsies. Interval History Comments: She comes in today for a routine follow up. She has been weaker and more short o f breath since she developed an UGIB. She says that she received several pints of blood maría elena use of this, and also underwent an EGD. She is now on sucralfate, and pantoprazole, as well as H.pylori therapy. The patient reports the following: DYSPNEA: Has chronic dyspnea on minimal exertion. Has had worsening dyspnea on exertion sin ce hospitalization. COUGH: Intermittent, productive of light yellow sputum normally. ACUTE EXACERBATION: None recently. EXPOSURES: Never smoker. EXERCISE: No regimented exercise. Has had trouble as well due to frequent falls and balanc e issues. ACTIVITIES OF DAILY LIVING: Has been more sedentary since last hospitalization. Generally weaker, but seems to have had the energy to go to a casino after her recent hospitalization, and now complains of being so fatigued because of that trip. CONSTITUTIONAL SYMPTOMS: Has had chronic fatigue and balance issues. Denies fevers but does have some night sweats. She has not lost weight. SINO-NASAL SYMPTOMS: None currently REFLUX or REGURGITATION: [...] day when she gets short of breath. Requesting for portable O2. PAP therapy: CPAP nightly. Other relevant medications: Singulair nightly. Pls see rest of ROS below. SOCIAL HISTORY She smoked for a month when she was in . She has never smoked continuously in the past. S he has lived in [place] most of her life. She now lives in [place]. She lived in [place] for two years when she was younger. [...] Date Asthma Bronchitis DVT (deep venous thrombosis) ([facility]) in thigh; no longer on coumadin Dvt femoral (deep venous thrombosis) ([facility]) Epilepsy (HCC) Fibromyalgia Fibromyalgia HX OTHER MEDICAL 05/04/2013 Acute [...] Procedure: TRACHEOSTOMY; Surgeon: Fabián Novoa MD; Location: [facility] MAIN OR; Service: ENT; Laterality: N/A; move to OR table, need harmonic scalpel with focus HP, patient 320 poun ds TUBAL LIGATION Objective BP (!) 87/50 | Pulse 85 | Temp 36.4 C (97.6 F) (Oral) | Wt (!) 141.5 kg (312 lb) | SpO2 99% | BMI 50.36 kg/m Physical Exam Vital signs reviewed. Oxygen saturation noted at 99% on ambient air GENERAL: obese, pleasant, cooperative, oriented, not in distress, appears tired today HEENT: pink conjunctiva, anicteric sclerae, moist oral mucosae and without any lesions, nor mal appearing nasal mucosae; no JVD; MALAMPATTI 4; trach scar present and well healed; no ce rvicolymphadenopathies CVS: PMI non displaced, slightly tachycardic, S1 and S2, no murmurs/gallops/rubs CHEST: Examination of the chest was unremarkable. There were no bony deformities, no asymme try, and no other abnormalities. LUNGS: Normal effort, Equal in expansion, resonant to percussion, clear breath sounds witho ut adventitious sounds. ABDOMEN: Obese abdomen, NABS, non-tender on palpation, no masses palpated EXTREMITIES: good distal pulses, no cyanosis, no clubbing, no nail abnormalities, with non pitting edema on ankles and legs NEURO: awake and oriented, uses a cane to ambulate, no focal neurologic deficits LABORATORY AND IMAGING [...] chronic dyspnea and difficult to control asthma. Fortino hodge is on Breo Ellipta 200-5 mcg daily, and has been compliant with this. She has used her alb uterol nebulization at least once a day. She has not had any acute exacerbations but does co mplain of a persistent dyspnea, which is really multi-factorial -from deconditioned state, o besity, and chronic pain syndrome. 2. ARDS survivor Ms Araiza is a 53 yr old woman who ARDS survivor due [...] Continue O2 at night with C PAP. She has requested for a portable oxygen concentrator but she is unable to walk today [facility] of feeling unsteady on her feet. She will continue to watch saturations during the day, an d notify her PCP if this drops so she can do an official walk test to qualify for a POC. 5. COOPER (obstructive sleep apnea) She reports that she will be seeing a Sleep MD soon once again. 6. Gastroesophageal reflux disease without esophagitis She had a recent UGIB. Continue txt and follow up with GI specialist. Thank you for allowing us to participate in this patient's care. A return visit has been re quested/scheduled in the 3-4 months for close clinical follow up. The patient was instructed to call our clinic for any questions, and for any concerns regarding worsening dyspnea, cou gh or change in sputum production. We will see the patient sooner than the recommended follo w up date, if with any worsening of symptoms. Esperanza Gutierrez MD Pulmonary and Critical Care Medicine [facility] [place] [address] [address] NDAdomarisol melton in this encounter Plan of Treatment +--------+---------+ + + + | Date | Type | Specialty | Care Team | Description | +--------+---------+ + + + | 03/22/ | Office | Neurology | Elaine Andrews, | | 2019 | Visit | | MD [address] | | | | | | [address] | | | | | | [place] [address] | | | | | | [phone] | | | | | | | [...] apnea (adult) (pediatric) | + + | Gastroesophageal reflux disease without esophagitis Esophageal reflux | + + documented in this encounter"
--- OUTSIDE RECORDS SUMMARY | ~2019-12-28 | XMS | Encounter Summary ---
Demographics + + + | Address | [address] | | | [place] [address] | + + + | Home Phone | | + + + | Preferred Language | Unknown | + + + | Marital Status | | + + + | Presybeterian Affiliation | Unknown | + + + | Race | White | + + + | Ethnic Group | Not or | + + + Author + + + | Author | [facility] | | | and [place] | + + + | Organization | [facility] | | | and [place] | + + + | Address | Unknown | + + + | Phone | Unavailable | + + + Support + + +---------+ + | Name | Relationship | Address | Phone | + + +---------+ + | Amaod Araiza | ECON | Unknown | | + + +---------+ + Care Team Providers + +------+ + | Care Sales Representative Name | Role | Phone | + +------+ + | Mynor Kam MD | PCP | | + +------+ + Reason for Visit + + + | Reason | Comments | + + + | Follow-up | Seizures, migraines | + + + Encounter Details +--------+ + + + + | Date | Type | Department | Care Team | Description | +--------+ + + + + | 12/21/ | Virtual | [facility] | Elaine Andrews, | Seizure disorder | | 2019 | Office | NEUROLOGY [address] | ([facility]) (Primary Dx); | | | Visit | [address] | [address] | Driving safety | | | | [place], [place] | [place] [address] | issue; Chronic | | | | [address] | [phone] | migraine; Memory | | | | [phone] | | loss | +--------+ + + + + Social [...] documented as of this encounter Progress Notes Elaine Andrews MD - 12/22/2019 11:45 AM PDTFormatting of this note might be different f rom the original. This exam was initially conducted via a secure 256-bit AES encrypted bidirectional video se ssion. This visit was converted to virtual visit due to COVID-19 pandemic. Service was provided [id number] with the patient via interactive videoconferencing Video start time 1150 am Video end time 1205 pm Total time (in minutes) 18 minutes including review of records, face to face time, document ation including orders and finalizing care plan The patient was presented with information regarding the risks and benefits of telemedicine , given the opportunity to ask questions, and [facility] The patient confirms they are currently physically located at the permanent address on file . I, Elaine Andrews MD, confirmed this is a state in which I am licensed. Subjective: Patient ID: Gilma Araiza is a 54 y.o. female. CC: Spells, headache HPI: Please refer to consult note dated 05/18/2015 for details of HPI which I have reviewed. Last visit was on 10/20/19 Interval changes: Patient had been reporting multiple seizures. She was asked to keep a log Since last visit, she reports only one spell. 5 weeks ago. Lasted 15 seconds. Was having se renae pain in her abdomen. Was not feeling well. Could not describe what happened. Her family has not witnessed any. She had a virtual visit with her GI/auto body repair estimator Dr Marcio Argueta at [facility] in [place] 12/09/19. She has cirrhosis and hepatic encephalopathy. Along with lact ulose, she has been recommended Rifaximin 550mg bid for this. She has not yet received it. She reports several migraines. Had 5 last weeks. Last hours. For chronic headaches Trialed Verapamil, Topamax as noted in prior chart notes. As she was having at least 2 migr aines a week, some lasting more than 24 hours, she was advised a Botox injection trial. Is o n Gabapentin 900mg tid. She has undergone 2 Botox injection cycles on 02/10/18 and 05/22/18 bu t discontinued as they were not beneficial. Aimovig was also requested but denied by insurance. Current Outpatient Medications: albuterol (PROAIR RESPICLICK) 90 mcg/puff inhaler, Inhale 2 puffs into the lungs every 6 hours as needed for Shortness of Breath., Disp: , Rfl: amLODIPine (NORVASC) 5 mg tablet, Take 5 mg by mouth Daily., Disp: , Rfl: apixaban (ELIQUIS) 5 mg tablet, Take 5 mg by mouth 2 times daily., Disp: , Rfl: bismuth subsalicylate (PEPTO BISMOL) 262 mg chewable tablet, Chew and swallow 524 mg 4 times daily (before meals and nightly)., Disp: , Rfl: doxycycline (VIBRAMYCIN) 100 mg tablet, Take 100 mg by mouth 2 times daily., Disp: , R fl: DULoxetine (CYMBALTA) [address] capsule, Take 90 mg by mouth daily., Disp: , Rfl: DULoxetine (CYMBALTA) [address] capsule, Take 60 mg by mouth., Disp: , Rfl: 0 ergocalciferol (VITAMIN D-2) 50,000 units capsule, TK 1 C PO ONCE A WEEK FOR 6 MONTHS (Patient not taking: Reported on 10/20/2019), Disp: , Rfl: 0 fluconazole (DIFLUCAN) 100 mg tablet, Take 100 mg by mouth Daily. Take every day, Disp : , Rfl: fluticasone-vilanterol (BREO ELLIPTA) 200-25 mcg/puff inhaler, Inhale 1 puff into the lungs daily., Disp: 1 each, Rfl: 11 furosemide (LASIX) 20 mg tablet, take 1 tablet by mouth once daily, Disp: , Rfl: gabapentin (NEURONTIN) 300 mg capsule, take 4 capsules by mouth every morning 3 capsul es AT NOON and 3 capsules every evening (Patient taking differently: taking 5 capsules by mo uth every morning 6 capsules AT NOON and 6 capsules every evening. Hospital changed.), Disp: 300 capsule, Rfl: 1 hydrOXYzine pamoate (VISTARIL) 25 mg capsule, Take 25 mg by mouth every 8 hours as nee ded for Itching., Disp: , Rfl: insulin lispro (HUMALOG) 100 units/mL injection (vial), Inject 35 Units into the skin 2 (two) times daily as needed. Sliding scale , Disp: , Rfl: LANTUS SOLOSTAR 100 UNIT/ML injection (pen), Inject 35 Units into the skin 2 (two) ike es daily., Disp: , Rfl: 1 lisinopril (PRINIVIL, ZESTRIL) 20 mg tablet, Take 40 mg by mouth Daily., Disp: , Rfl: metoprolol succinate (TOPROL-XL) 100 mg ER tablet, Take 100 mg by mouth Daily., Disp: , Rfl: metroNIDAZOLE (FLAGYL) 500 MG tablet, Take 250 mg by mouth 3 times daily., Disp: , Rfl : pantoprazole (PROTONIX) 40 mg tablet, Take 40 mg by mouth 2 times daily (before meals) ., Disp: , Rfl: rifAXIMin (XIFAXAN) 550 mg TABS, Take 550 mg by mouth 2 times daily., Disp: , Rfl: tiZANidine (ZANAFLEX) 4 MG capsule, Taking 2 tabs 2 times a day (Patient not taking: R eported on 12/22/2019), Disp: , Rfl: 2 Physical examination: Limited examination, the patient is not in any distress. Pleasant affect and mood. Provides history and medication list without difficulty. Patient is seated, appears alert, did not know the month (thought it was January instead of Dec), knew address. Exhibits goal oriented fluent speech. Comprehends conversation easily EOMI Face symmetric. Movements intact. Impression: Primary idiopathic epilepsy with myoclonic jerks - no report of breakthrough seizures. Recent spell 5 weeks ago - could not be described by patient and was not witnessed by famil y Possible hepatic encephalopathy as determined by her auto body repair estimator/GI specialist at [facility] in [place]. She is also on on multiple psychoactive medications including muscle relaxants, Cymbalta, g abapentin. Vertigo/migrainous dizziness and migraine aura - intensifying migraines since June 2017 (s tarted in 2013) -no acute worsening but has failed multiple prophylactic trials as detailed in HPI. Have not been able to get authorization for Aimovig. COOPER due to obesity - on CPAP Memory impairment - may be due to h/o severe illness/comatose state in 2013 as well as use of psychoactive medications such as cymbalta and lorazepam and insomnia PLAN 1. For seizure prophylaxis Gabapentin 300mg Take 4 caps morning, continue 3 caps at noon and 3 caps at night. I discussed with the patient that she may be experiencing toxic encephalopathy I have counseled her extermination inspector in detail about watching out for seizures vs encephalopathy. Advised her to follow up on medication Rifaximin prescribed by GI on 12/09/19 to help with en cephalopathy. To keep a written report of any suspected seizures. She/family should call 911 for prolonge d seizure more than 3 minutes. Notify the clinic later. Safety and legal instructions I explained to the patient that per [place] State law she should not to drive a vehicle or vess el of any kind, swim, bathe alone, boat, scuba, work on heights, operate heavy machines or c ook on open fire for six (6) months from any event of loss of consciousness, altered awarene ss or loss of body control. 2. Prophylaxis for migraine with aura/dizziness Has failed Topamax and Verapamil in 2017-18 Use CPAP regularly Had tried Botox in 2018 and quit as she did not notice a significant improvement. Has been educated about CGRP blockers such as Aimovig or Emgality, and transcutaneous stimu lation device Cefaly. She was interested in trying Aimovig but it was not approved by Medicare. I discussed with the patient that she should follow lifestyle modifications including optimizing sleep hygie ne, hydration of 6 to 8 glasses of water per day, regular meals. Keep a migraine log. Will try to obtain PA for CGRP blockers again. 3. For memory Do not drive or cook on open flame due to forgetfulness. She needs supervision for cooking. Needs a caregiver for transport and medications/assistan ce paying bills. Follow up in 3 months or sooner Have counseled the patient about the clinical course of ongoing neurological symptoms and a nswering a number of questions, the patient expressed understanding, appreciation and would like to proceed with the recommendations. documented in this encounter Plan of Treatment +--------+---------+ + + + | Date | Type | Specialty | Care Team | Description | +--------+---------+ + + + | 03/22/ | Office | Neurology | Elaine Andrews, | | | 2019 | Visit | | MD [address] | | | | | | [address] | | | | | | [facility] [place] [address] | | | | | | [phone] | | | | | | | | +--------+---------+ + + + documented as of this encounter Visit Diagnoses + + | Diagnosis | + + | Seizure disorder (HCC) - Primary Unspecified epilepsy without mention of intractable | | epilepsy | + + | Driving safety issue Other specified personal history presenting hazards to health | + + | Chronic migraine Chronic migraine without aura, without mention of intractable | | migraine without mention of status migrainosus | + + | Memory loss | + + documented in this encounter"
--- OUTSIDE RECORDS SUMMARY | ~2019-12-28 | XMS | Encounter Summary ---
Demographics + + + | Address | [address] | | | [place] [address] | + + + | Home Phone | | + + + | Preferred Language | Unknown | + + + | Marital Status | | + + + | Lutheran Affiliation | Unknown | + + + | Race | White | + + + | Ethnic Group | Not or | + + + Author + + + | Author | [facility] | | | and [place] | + + + | Organization | [facility] | [...] Team Providers + +------+ + | Care Glass Grinder Name | Role | Phone | + +------+ + | Mynor Kam MD | PCP | | + +------+ + Reason for Visit + + + | Reason | Comments | + + + | Follow-up | Seizures, Migraines | + + + Encounter Details +--------+ + + + + | Date | Type | Department | Care Team | Description | +--------+ + + + + | 10/19/ | Virtual | [facility] | Elaine Andrews, | [facility] | | 2019 | Office | NEUROLOGY [address] | [address] | attentiveness | | | Visit | [address] | [address] | (Primary Dx); | | | | [place], [place] | [place] [address] | Dizziness and | | | | [address] | [phone] | giddiness; Toxic | | | | [phone] | | encephalopathy | +--------+ + + + + Social [...] encounter Progress Notes Elaine Andrews MD - 10/20/2019 9:25 AM PDTFormatting of this note might be different f rom the original. This exam was initially conducted via a secure 256-bit AES encrypted bidirectional video se ssion. This visit was converted to virtual visit due to COVID-19 pandemic. Service was provided fyth-fu-dexy with the patient via interactive videoconferencing Video start time 936 am Video end time 956 am Total time (in minutes) 25+ minutes including review of records, face to face time, documen tation including orders and finalizing care plan You have chosen to receive care through the use of telemedicine. Telemedicine enables [facility] care providers at different locations to [...] your questions regarding telemedicine been answered? "Yes" Patient is currently at home Do you consent to the use of telemedicine in your medical care today? Yes. Last question, I need to confirm where are you physically located right now? Answer: home Patient confirms they are located in a state where I, Elaine Raghunath, [place] am licensed. Subjective: Patient ID: Gilma Araiza is a 54 y.o. female. CC: Spells, headaches HPI: Please refer to visit note dated 06/01/19 for details of HPI which I have reviewed. Interval changes: Spells have increased. She describes these episodes as feeling dizzy and needs assistance to help her get to where she wants to go. She states that as they are assisting her she ofte n falls on people. Not sure if she loses consciousness. Family has seen her gets a 'weird' l ook on her face and then fall. 2 months ago, she was at the doctor's office, she slumped (as if she fell asleep). They called the ambulance and she was taken to the local ER. More depressed lately. Anxiety medication is not working (cymbalta 90mg in the morning) Her daughter is undergoing chemo. (things are gettting to her reportedly) C/o ongoing headaches. No change in the nature of headaches. R side of scalp from posterior to anterior feels numb for the last 2 weeks. But no other neurological symptom such as faci al droop, slurred speech. States that her liver function is worsening and that she may need a transplant. She is wor lisa with a specialist at [facility]. She is not yet on the transplant list as they have certain criteria to get on that. Current Outpatient Medications: albuterol (PROAIR RESPICLICK) 90 [...] es AT NOON and 3 capsules every evening., Disp: 300 capsule, Rfl: 0 hydrOXYzine pamoate (VISTARIL) 25 mg capsule, Take [...] daily (before meals) ., Disp: , Rfl: tiZANidine (ZANAFLEX) 4 MG capsule, Taking 2 tabs 2 times a day, Disp: , Rfl: 2 Physical examination: Limited examination, the patient is not in any distress. Pleasant affect and mood. Provides history and medication list without difficulty. Patient is alert, oriented, exhibits goal oriented fluent speech. Comprehends conversation easily and follows instructions. EOMI Face symmetric. Movements intact. Impression: Primary idiopathic epilepsy with myoclonic jerks - Recent spells appear to be more due to encephalopathy and she has liver dysfunction and is on multiple psychoactive medications including muscle relaxants, Cymbalta, gabapentin. Vertigo/migrainous dizziness and migraine aura - intensifying migraines since June 2017 (s tarted in 2013) -no acute worsening Deconditioning - obesity and peripheral neuropathy - [...] Gabapentin in the morning (detailed in HPI) I discussed with the patient that she may be experiencing toxic encephalopathy Advised her to keep a strict seizure log. I discussed with the patient that adding more se izure medications at this time did not seem reasonable as the spells were not convulsive and did not have a stereotypic semiology. Safety and legal instructions I explained to [...] aura/dizziness Has failed Topamax and Verapamil in 2017- Use CPAP regularly Had tried Botox in [...] glasses of water per day, regular meals. She may also need a sleep study due to being overweight and at risk of COOPER. She can follow-up regarding a sleep study with PCP for local referral 3. For memory Do not drive or cook on open flame due to forgetfulness. She needs supervision for cooking. Needs a caregiver for transport and medications/assistan ce paying bills. Follow up in 2 Months. Will follow up on seizure/spell log Have counseled the patient about the clinical course of ongoing neurological symptoms and a nswering a number of questions, the patient expressed understanding, appreciation and would like to proceed with the recommendations. call for any new neurological changes or symptoms or questions. documented in this encounter Plan of Treatment +--------+---------+ + + + | Date | Type | Specialty | Care Team | Description | +--------+---------+ + + + | 03/22/ | Office | Neurology | Elaine Andrews, | | 2019 | Visit | | MD [address] | | | | | | [address] | | | | | | [place] [address] | | | | | | [phone] | | | | | | | | +--------+---------+ + + + documented as of this encounter Visit Diagnoses + + | Diagnosis | + + | Spells of decreased attentiveness - Primary Other general symptoms | + + | Dizziness and giddiness | + + | Toxic encephalopathy | + + documented in this encounter
--- OUTSIDE RECORDS SUMMARY | ~2019-12-28 | XMS | Encounter Summary ---
Demographics + + + | Address | [address] | | | [place] [address] | + + + | Home Phone | | + + + | Preferred Language | Unknown | + + + | Marital Status | | + + + | Mormonism Affiliation | Unknown | + + + | Race | White | + + + | Ethnic Group | Not or | + + + Author + + + | Author | [facility] | | | and [place] | + + + | Organization | [facility] | | | and [...] Team Providers + +------+ + | Care Manufacturer'S Representative Name | Role | Phone | [...] Description | +--------+--------+ + + + | 11/16/ | Refill | [facility] | Elaine Andrews, | Medication Refill | | 2020 | | NEUROLOGY [address] | MD [address] | | | | | [address] | [address] | | | | | [place], [place] | [place] [address] | | | | | [address] | [phone] | | | | | [phone] | | | +--------+--------+ + + + [...] Telephone Encounter - Rowena Scott CMA - 11/17/2019 1:50 PM PDTLast visit: 10/20/19 Next visit: none listed Called patient and scheduled Follow up 12/22/2019 Last filled: 10/18/2019 Number of refills: 0 Per last note: Gabapentin 300mg Take 4 caps morning, continue 3 caps at noon and 3 caps at night. Advised her that she had been taking excessive amounts of Gabapentin in the morning (detailed in HPI) documented in thi s encounter Plan of Treatment +--------+---------+ + + + | Date | Type | Specialty | Care Team | Description | +--------+---------+ + + + | 03/22/ Office | Neurology | Elaine Andrews, | | | 2019 | Visit | | MD [address] | | | | | | [address] | | | | | | [place] [address] | | | | | | [phone] | | | | | | | | +--------+---------+ + + + documented as of this encounter Visit Diagnoses Not on filedocumented in this encounter"
--- OUTSIDE RECORDS SUMMARY | ~2019-12-28 | XMS | Encounter Summary ---
Demographics + + + | Address | [address] | | | [place] [address] | + + + | Home Phone | | + + + | Preferred Language | Unknown | + + + | Marital Status | | + + + | Judaism Affiliation | Unknown | + + + | Race | White | + + + | Ethnic Group | Not or | + + + Author + + + | Author | [facility] | | | and [place] | + + + | Organization | [facility] | | | [...] Team Providers + +------+ + | Care Stablehand Name | Role | Phone | + +------+ + PCP | Unavailable | + +------+ + Encounter Details +--------+ + + + + | Date | Type | Department | Care Team | Description | +--------+ + + + + | 07/19/ | Hospital | [facility] | Conversion | Pain | | 2015 | Encounter | CONVERSION [address] | Transaction, | | | | | [address] | Provider Unknown | | | | | [place], [place] | [phone] | | | | | [address] | (Fax) | | | | | [phone] | | | +--------+ + + + [...] D | | | | | | [place] [address] | | | | | | [phone] | | | | | | | | +--------+---------+ + + + documented as of this encounter Procedures + +--------+ + + + | Procedure Name | Priori | Date/Time | Associated Diagnosis | Comments | | | ty | | | | + +--------+ + + + | CT HEAD WO CONTRAST | Routin | 01/19/2014 | | Results for this | | | e | 5:11 AM | | procedure are in the | | | | PDT | | results section. | + +--------+ + + + documented in this encounter Results CT Head wo Contrast (01/19/2014 5:11 AM PDT) + + | Specimen [...]
--- OUTSIDE RECORDS SUMMARY | ~2019-12-28 | XMS | Encounter Summary ---
Demographics + + + | Address | [address] | | | [place] [address] | + + + | Home Phone | | + + + | Preferred Language | Unknown | + + + | Marital Status | | + + + | Pentecostalism Affiliation | Unknown | + + + | Race | White | + + + | Ethnic Group | Not or | + + + Author + + + | Author | [facility] | | | and [place] | + + + | Organization | [facility] | | [...] Team Providers + +------+ + | Care Facility Manager Name | Role | Phone | + +------+ + PCP | Unavailable | + +------+ + Encounter Details +--------+ + + + + | Date | Type | Department | Care Team | Description | +--------+ + + + + | 11/08/ | Emergency | [facility] | Patrick Huston, | Patient left before | | 2014 | | MEDICAL CENTER | MD Toi Stanton | treatment completed | | | | EMERGENCY CENTER | [place] | | | | | [address] | [address] | | | | | [place], [place] | [phone] | | | | | [address] | | | | | | [phone] | | | +--------+ + + + [...] 11/08/132155 Date of Service: 11/08/132155 Status: Signed Doll Wig Maker Rooted Hair: Florencia Lancaster RN (Registered Nurse) No belongings in pt room, no people noted in pt room. Florencia Lancaster RN 11/08/132155 onver elaina Transaction, Provider Unknown - 11/08/2013 9:52 PM PDT ED Notes by Marysol Kramer RN at 11/08/132151 Author: Marysol Kramer RN Service: (none) Author Type: Registered Nurse Filed: 11/08/132151 Date of Service: 11/08/132151 Status: Signed Doll Wig Maker Rooted Hair: Marysol Kramer RN (Registered Nurse) Patient left the room at this time. Marysol Kramer RN 11/08/132151 onver elaina Transaction, Provider Unknown - 11/08/2013 9:49 PM PDT ED Notes by Marysol Kramer RN at 11/08/132148 Author: Marysol Kramer RN Service: (none) Author Type: Registered Nurse Filed: 11/08/132151 Date of Service: 11/08/132148 Status: Signed Doll Wig Maker Rooted Hair: Marysol Kramer RN (Registered Nurse) Pt caregiver [...] 11/08/132142 Date of Service: 11/08/132141 Status: Signed Doll Wig Maker Rooted Hair: Florencia Lancaster RN (Registered Nurse) Pt caregiver [...] 0237 Date of Service: 11/08/132121 Status: Signed Doll Wig Maker Rooted Hair: Patrick Huston MD (Physician) [facility] Department of Emergency Medicine 9:22 PM [...] TRACHEOSTOMY; Surgeon: Fabián Novoa MD; Location: [facility] MAIN OR; Service: ENT ; Laterality: N/A; [...] reviewed (Using the electronic record system of [facility], Hermila tirado reviewed the records with regard to the past medical/surgical history, previous medic ations, and allergies). Pt last seen 06/10/13 for pneumonia. Laboratory Evaluation Results None Radiology and EKG Evaluation Imaging Results None ED Diagnosis Final diagnosis Patient left before treatment completed Disposition: ED Disposition LW Follow-up Information Follow up With Details Comments Contact Info Mary Valdez PA-C Discharge Medications: New Prescriptions No [...] 11/08/132127 Date of Service: 11/08/132120 Status: Signed Doll Wig Maker Rooted Hair: Florencia Lancaster RN (Registered Nurse) Pt c/o [...] | | | | | [place] [address] | | | | | | [phone] | | | | | | | | +--------+---------+ + + + documented as of this encounter Visit Diagnoses + + | Diagnosis | + + | Patient left before treatment completed Personal history of noncompliance with | | medical treatment, presenting hazards to health | + + documented in this encounter
--- OUTSIDE RECORDS SUMMARY | ~2019-12-28 | XMS | Encounter Summary ---
Demographics + + + | Address | [address] | | | [place] [address] | + + + | Home Phone | | + + + | Preferred Language | Unknown | + + + | Marital Status | | + + + | Anabaptism Affiliation | Unknown | + + + | Race | White | + + + | Ethnic Group | Not or | + + + Author + + + | Author | [facility] | | | and [place] | + + + | Organization | [facility] | | [...] Team Providers + +------+ + | Care Embossing Tool Setter Name | Role | Phone | [...] + + | 10/18/ | Telephone | [facility] | Elaine Andrews, | Appointment | | 2020 | | NEUROLOGY [address] | [address] | | | | | [address] | [address] | | | | | [place], [place] | [place] [address] | | | | | [address] | [phone] | | | | | [phone] | | | +--------+ + + + [...] - 10/19/2019 10:44 AM Bry, is calling [facility] Appointment and would like a call back. Additional Call Details: [facility] to [facility] 10/05 No Show/Virtual Visit Appointment. Can be reached at Home Number list in Chart Stated she will be available for calls in about 2 ho urs. If this is a symptom based call, was patient offered triage? Not Applicable If this is a symptom based call and you were unable to immediately transfer the call to a ainsley lloyd director medical affairs was caller made aware that if at [...] D | | | | | | [place] [address] | | | | | | [phone] | | | | | | | | +--------+---------+ + + + documented as of this encounter Visit Diagnoses Not on filedocumented in this encounter"
--- OUTSIDE RECORDS SUMMARY | ~2019-12-28 | XMS | Encounter Summary ---
Demographics + + + | Address | [address] | | | [place] [address] | + + + | Home Phone | | + + + | Preferred Language | Unknown | + + + | Marital Status | | + + + | Pentecostalism Affiliation | Unknown | + + + | Race | White | + + + | Ethnic Group | Not or | + + + Author + + + | Author | [facility] | | | and [place] | + + + | Organization | [facility] | | | [...] Team Providers + +------+ + | Care Box Spring Frame Builder Name | Role | Phone | + [...] + + | 11/16/ | Refill | [facility] | Elaine Andrews, | Medication Refill | | 2020 | | NEUROLOGY [address] | MD [address] | | | | | [address] | [address] | | | | | [place], [place] | [place] [address] | | | | | [address] | [phone] | | | | | [phone] | | | +--------+--------+ + + + [...] | | | | | [place] [address] | | | | | | [phone] | | | | | | | | +--------+---------+ + + + documented as of this encounter Visit Diagnoses Not on filedocumented in this encounter"
--- OUTSIDE RECORDS SUMMARY | ~2019-12-28 | XMS | Encounter Summary ---
Demographics + + + | Address | [address] | | | [place] [address] | + + + | Home Phone | | + + + | Preferred Language | Unknown | + + + | Marital Status | | + + + | Taoist Affiliation | Unknown | + + + | Race | White | + + + | Ethnic Group | Not or | + + + Author + + + | Author | [facility] | | | and [place] | + + + | Organization | [facility] | | | [...] Team Providers + +------+ + | Care Time Study Engineer Name | Role | Phone | + +------+ + PCP | Unavailable | + +------+ + Encounter Details +--------+ + + + + | Date | Type | Department | Care Team | Description | +--------+ + + + + | 02/26/ | Hospital | [facility] | Fabián Salas | | | 2010 - | Encounter | [facility] | MD [address] | | | | | CENTER [address] | [address] | | | 03/06/ | | [place] | [place] [address] | | | 2010 | | [address] | [phone] | | | | | [phone] | | | +--------+ + + + [...] D | | | | | | [facility] [place] [address] | | | | | | [phone] | | | | | | | | +--------+---------+ + + + documented as of this encounter Visit Diagnoses Not on filedocumented in this encounter"
--- OUTSIDE RECORDS SUMMARY | ~2019-12-28 | XMS | Encounter Summary ---
Demographics + + + | Address | [address] | | | [place] [address] | + + + | Home Phone [...] + + + | Author | [facility] | | | and [place] | + + + | Organization | [facility] | | [...] Team Providers + +------+ + | Care Order Runner Name | Role | Phone | + +------+ + PCP | Unavailable | + +------+ + Encounter Details +--------+ + + + + | Date | Type | Department | Care Team | Description | +--------+ + + + + | 06/10/ | Emergency | [facility] | Edis Gudino MD | Cough; | | 2013 | | MEDICAL CENTER | [address] | Pneumonia | | | | EMERGENCY CENTER | [place] [address] | | | | | [address] | [phone] | | | | | [place], [place] | | | | | | [address] | | | | | | [phone] | | | +--------+ + + + [...] Notes by Alvaro Mcclain MD at 06/13/13 9635 Author: Alvaro Mcclain MD Service: (none) Author Type: Physician Filed: 06/13/131843 Date of Service: 06/13/130 Status: Signed Train Attendant: Alvaro Mcclain MD (Physician) Related Notes: Related Note by Everett Bryson PA-C (Physician Metalworking Instructor - Certified) f iled at 06/13/131633 I have reviewed the note and supervised the mid-level provider. Alvaro Mcclain MD 06/13/131843 Fabiola Naylor PA-C - 06/13/2013 4:30 PM PDT ED Provider Notes by Everett Bryson PA-C at 06/13/131629 Author: Everett Bryson PA-C Service: (none) Author Type: Physician Metalworking Instructor - Certi fied Filed: 06/13/131633 Date of Service: 06/13/131629 Status: Signed Train Attendant: Everett Bryson PA-C (Physician Metalworking Instructor - Certified) Related Notes: Cosigned by Alvaro Mcclain MD (Physician) filed at 06/13/131843 Procedures For culture results called patient's the blood culture results which grew and one set GRAM POSITIVE COCCI Patient went to the emergency room in [facility] [place]. Provider stated that this is too e vasile for admission and she currently on the correct antibiotics for the bacteria. And was d ischarged. Patient states she is still not feeling any better. I suggested that she return to the [facility] for reevaluation. Patient states that if she is still not feeling any better by tonight she will return to [facility]. Everett Bryson PA-C 06/13/131633 Edis Ramirez MD - 06/10/2013 8:14 PM PSTFormatting of this note might be different from the origi nal. ED Provider Notes by Edis Gudino MD at 06/10/132013 Author: Edis Gudino MD Service: (none) Author Type: Physician Filed: 06/10/13 2204 Date of Service: 06/10/132013 Status: Signed Train Attendant: Edis Gudino MD (Physician) Located Within [facility] Department of Emergency Medicine History of Present [...] Procedure: TRACHEOSTOMY; Surgeon: Fabián Novoa MD; Location: [facility] MAIN OR; Service: ENT ; [...] Value Ref Range Date/Time Complete Metabolic Panel [[id number]] (Abnormal) Collected:06/10/132033 Order Status:Completed Updated:06/10/132100 Specimen Information:Blood [...] >60 >60 mL/min/1.73m2 CBC w Auto Diff [[id number]] (Abnormal) Collected:06/10/132033 Order Status:Completed Updated:06/10/132042 Specimen Information:Blood [...] Interpretation Documented by Edis Gudino MD (06/10/132126, Located Within [facility] Emergency Department, Emergency Medicine) This ED initial [...] soon as possible for a visit [address] [place] [address] Located Within [facility] Emergency Department If symptoms worsen [address] [place] [address] [id number] Discharge Medications: New Prescriptions BENZONATATE (TESSALON) 100 MG CAPSULE Take 1 capsule by mouth every 8 (eight) hours. LEVOFLOXACIN (LEVAQUIN) 750 MG TABLET Take 1 tablet by mouth daily. This document has been prepared with a voice recognition system. The possibility of "sound alike" manager performance errors, addition and/or deletions may occur. If there is any question p lease contact the author of the document. Additional Documentation Procedures Edis Gudino MD 06/10/13 1895 onversion Transactio n, Provider Unknown - 06/10/2013 8:09 PM PST ED Notes by Alli Giron RN at 06/10/132008 Author: Alli Giron RN Service: (none) Author Type: Registered Nurse Filed: 06/10/132009 Date of Service: 06/10/132008 Status: Signed Train Attendant: Alli Giron RN (Registered Nurse) Dr. Gudino @ assessing patient Alli Giron RN 06/10/132009 onver elaina Transaction, Provider Unknown - 06/10/2013 8:04 PM PST ED Notes by Alli Giron RN at 06/10/132003 Author: Alli Giron RN Service: (none) Author Type: Registered Nurse Filed: 06/10/132005 Date of Service: 06/10/132003 Status: Signed Train Attendant: Alli Giron RN (Registered Nurse) "The last week in April I was admitted at [facility] for pneumonia and the flu, then I [...] [address] | | | | | | [place] [address] | | | | | | [phone] | | | | | | | [...] NEW | | | Testing performed at [facility], [address] [place] [address] | | | [address] CULTURE | | | STAPHYLOCOCCUS SPECIES, COAGULASE NEGATIVEAbnormal | | | GROWTH IN ONE OF TWO | | | BOTTLESAbnormal | | | TIME TO DETECTION: 26HRS 6MIN | | | POSSIBLE CONTAMINANT, CLINICAL CORRELATION REQUIRED. | | | Testing performed at | | | [facility], [address] [place] [address] REPORT STATUS | | | 06/13/2013 FINAL [...] EXTERNAL | | | | performed at [facility];888 | | LAB | | | | [address];[place] | | | | | | [address] | | | | + + + + + + | Non- | 4.44Comment: Testing | 3.70 - 5.10 | EXTERNAL | | | Red Blood | performed at [facility];888 | M/uL | LAB | | | Cells | [address];[place] | | | | | Counted | [address] | | | | + + + + + + | Hemoglobin | 11.9Comment: Testing | 11.3 - 15.5 | EXTERNAL | | | | performed at [facility];888 | g/dL | LAB | | | | [address];[place] | | | | | | [address] | | | | + + + + + + | Hematocrit, | 36.0Comment: Testing | 34.0 - 46.0 % | EXTERNAL | | | POC | performed at [facility];[address] | | LAB | | | | [address];[place] | | | | | | [address] | | | | + + + + + + | MCV | 81.0Comment: Testing | 80.0 - 100.0 fl | EXTERNAL | | | | performed at [facility];[address] | | LAB | | | | [address];[place] | | | | | | [address] | | | | + + + + + + | MCH | 26.9 (L)Comment: Testing | 27.0 - 34.0 pg | EXTERNAL | | | | performed at [facility];[address] | | LAB | | | | [address];[place] | | | | | | [address] | | | | + + + + + + | MCHC | 33.1Comment: Testing | 32.0 - 35.5 | EXTERNAL | | | | performed at [facility];888 | g/dL | LAB | | | | [address];[place] | | | | | | [address] | | | | + + + + + + | RDW-CV | 43.3Comment: Testing | 37 - 53 fl | EXTERNAL | | | | performed at [facility];[address] | | LAB | | | | [address];[place] | | | | | | [address] | | | | + + + + + + | Platelet | 359Comment: Testing | 150 - 400 K/uL | EXTERNAL | | | Count | performed at [facility];[address] | | LAB | | | Plasma | [address];[place] | | | | | | [address] | | | | + + + + + + | MPV | 7.3Comment: Testing | fl | EXTERNAL | | | | performed at [facility];[address] | | LAB | | | | [address];[place] | | | | | | [address] | | | | + + + + + + | Differentia | AUTOMATEDComment: | | EXTERNAL | | | l Type | Testing performed at | | LAB | | | | [facility];[address];[place] [address] | | | | + + + + + + | % Segmented | 46.4Comment: Testing | % | EXTERNAL | | | | performed at [facility];[address] | | LAB | | | Neutrophils | [address];[place] | | | | | | [address] | | | | + + + + + + | % | 39.3Comment: Testing | % | EXTERNAL | | | Lymphocytes | performed at [facility];[address] | | LAB | | | | [address];[place] | | | | | | [address] | | | | + + + + + + | % Monocytes | 8.9Comment: Testing | % | EXTERNAL | | | | performed at [facility];[address] | | LAB | | | | [address];[place] | | | | | | [address] | | | | + + + + + + | % | 4.9Comment: Testing | % | EXTERNAL | | | Eosinophils | performed at [facility];[address] | | LAB | | | | [address];[place] | | | | | | [address] | | | | + + + + + + | % Basophils | 0.5Comment: Testing | % | EXTERNAL | | | | performed at [facility];[address] | | LAB | | | | [address];[place] | | | | | | [address] | | | | + + + + + + | Absolute | 3.5Comment: Testing | 1.9 - 7.4 K/uL | EXTERNAL | | | Segmented | performed at [facility];[address] | | LAB | | | Neutrophils | [address];[place] | | | | | | [address] | | | | + + + + + + | Absolute | 2.9Comment: Testing | 1.0 - 3.9 K/uL | EXTERNAL | | | Lymphocytes | performed at [facility];[address] | | LAB | | | | [address];[place] | | | | | | [address] | | | | + + + + + + | Absolute | 0.7Comment: Testing | 0 - 0.8 K/uL | EXTERNAL | | | Monocytes | performed at [facility];[address] | | LAB | | | | [address];[place] | | | | | | [address] | | | | + + + + + + | Absolute | 0.4Comment: Testing | 0 - 0.5 K/uL | EXTERNAL | | | Eosinophils | performed at [facility];[address] | | LAB | | | | [address];[place] | | | | | | [address] | | | | + + + + + + | Absolute | 0.0Comment: Testing | 0 - 0.1 K/uL | EXTERNAL | | | Basophils | performed at [facility];[address] | | LAB | | | | [address];[place] | | | | | | [address] | | | | + + + [...] EXTERNAL | | | | performed at [facility];888 | mmol/L | LAB | | | | [address];[place] | | | | | | [address] | | | | + + + + + + | K | 3.5Comment: Testing | 3.5 - 4.9 | EXTERNAL | | | | performed at [facility];888 | mmol/L | LAB | | | | [address];[place] | | | | | | [address] | | | | + + + + + + | Cl | 100Comment: Testing | 99 - 109 mmol/L | EXTERNAL | | | | performed at [facility];[address] | | LAB | | | | [address];[place] | | | | | | [address] | | | | + + + + + + | CO2 | 31Comment: Testing | 23 - 32 mmol/L | EXTERNAL | | | | performed at [facility];[address] | | LAB | | | | [address];[place] | | | | | | [address] | | | | + + + + + + | Anion Gap | 9Comment: Testing | 5 - 20 mmol/L | EXTERNAL | | | | performed at [facility];[address] | | LAB | | | | [address];[place] | | | | | | [address] | | | | + + + + + + | Glucose, | 196 (H)Comment: Testing | 65 - 99 mg/dL | EXTERNAL | | | Fasting | performed at [facility];[address] | | LAB | | | | [address] | | | | | | [address] | | | | + + + + + + | BUN | 11Comment: Testing | 8 - 25 mg/dL | EXTERNAL | | | | performed at [facility];[address] | | LAB | | | | [address];[place] | | | | | | [address] | | | | + + + + + + | Creatinine | 0.59Comment: Testing | 0.50 - 1.00 | EXTERNAL | | | | performed at [facility];888 | mg/dL | LAB | | | | [address];[place] | | | | | | [address] | | | | + + + + + + | BUN/Creatin | 19Comment: Testing | | EXTERNAL | | | ine Ratio | performed at [facility];[address] | | LAB | | | | [address] | | | | | | [address] | | | | + + + + + + | Calcium | 8.9Comment: Testing | 8.5 - 10.2 | EXTERNAL | | | | performed at [facility];888 | mg/dL | LAB | | | | [address];[place] | | | | | | [address] | | | | + + + + + + | Protein, | 8.5 (H)Comment: Testing | 6.3 - 8.2 g/dL | EXTERNAL | | | Total | performed at [facility];[address] | | LAB | | | | [address] | | | | | | [address] | | | | + + + + + + | Albumin | 3.2 (L)Comment: Testing | 3.6 - 5.0 g/dL | EXTERNAL | | | | performed at [facility];[address] | | LAB | | | | [address] | | | | | | [address] | | | | + + + + + + | Globulin | 5.4 (H)Comment: Testing | 1.3 - 4.9 g/dL | EXTERNAL | | | | performed at [facility];[address] | | LAB | | | | [address];[place] | | | | | | [address] | | | | + + + + + + | A/G Ratio | 0.6 (L)Comment: Testing | 1.0 - 2.4 | EXTERNAL | | | | performed at [facility];[address] | | LAB | | | | [address];[place] | | | | | | [address] | | | | + + + + + + | Bilirubin | 0.3Comment: Testing | 0.1 - 1.5 mg/dL | EXTERNAL | | | Total | performed at [facility];[address] | | LAB | | | | [address] | | | | | | [address] | | | | + + + + + + | ALP, | 105Comment: Testing | 35 - 115 U/L | EXTERNAL | | | External | performed at [facility];[address] | | LAB | | | | [address] | | | | | | [address] | | | | + + + + + + | AST | 39Comment: Testing | 10 - 45 U/L | EXTERNAL | | | | performed at [facility];[address] | | LAB | | | | [address];[place] | | | | | | [address] | | | | + + + + + + | ALT | 59Comment: Testing | 10 - 65 U/L | EXTERNAL | | | | performed at [facility];[address] | | LAB | | | | [address] | | | | | | [address] | | | | + + + [...] | | | | | | at [facility];[address] [facility] | | | | | | [facility];[place] [address] | | | | + + + [...] DAYS | | | Testing performed at [facility], [address] | | [place] [address] REPORT STATUS | | | 06/16/2013 FINAL [...]
--- OUTSIDE RECORDS SUMMARY | ~2019-12-28 | XMS | Encounter Summary ---
Demographics + + + | Address | [address] | | | [place] [address] | + + + | Home Phone [...] + + + | Author | [facility] | | | and [place] | + + + | Organization | [facility] | | [...] Team Providers + +------+ + | Care Employee Relations Administrator Name | Role | Phone | + +------+ + PCP | Unavailable | + +------+ + Encounter Details +--------+ + + + + | Date | Type | Department | Care Team | Description | +--------+ + + + + | 07/19/ | Hospital | [facility] GENERIC IP | Conversion | Pain | | 2015 | Encounter | CONVERSION [address] | Transaction, | | | | | [address] | Provider Unknown | | | | | [place], [place] | [phone] | | | | | [phone] | (Fax) | | | | | [phone] | | | +--------+ + + + [...] D | | | | | | [place] [address] | | | | | | [phone] | | | | | | | [...]
--- OUTSIDE RECORDS SUMMARY | ~2019-12-28 | XMS | Encounter Summary ---
Demographics + + + | Address | [address] | | | [place] [address] | + + + | Home Phone [...] Team Providers + +------+ + | Care Blackjack Supervisor Name | Role | Phone | [...] + + | 05/06/ | Refill | [facility] | Rosa M Raman, | Medication Refill | | 2020 | | NEUROLOGY [address] | MD [address] | | | | | [address] | [address] | | | | | [place], [place] | [place] [address] | | | | | [address] | [phone] | | | | | [phone] | | | +--------+--------+ + + + [...] Miscellaneous Notes Telephone Encounter - Miranda Coulter Aoc Operations Intelligence Chief - 05/07/2019 4:22 PM PSTGabapent in [address] [...] [address] | | | | | | [place] [address] | | | | | | [phone] | | | | | | | | +--------+---------+ + + + documented as of this encounter Visit Diagnoses Not on filedocumented in this encounter"
--- OUTSIDE RECORDS SUMMARY | ~2019-12-28 | XMS | Encounter Summary ---
Demographics + + + | Address | [address] | | | [place] [address] | + + + | Home Phone [...] Team Providers + +------+ + | Care Home Appliance Tech Name | Role | Phone | [...] + + | 10/15/ | Refill | [facility] | Elaine Andrews, | Medication Refill | | 2020 | | NEUROLOGY [address] | MD [address] | | | | | [address] | [address] | | | | | [place], [place] | [place] [address] | | | | | [address] | [phone] | | | | | [phone] | | | +--------+--------+ + + + [...] | | | | | [place] [address] | | | | | | [phone] | | | | | | | | +--------+---------+ + + + documented as of this encounter Visit Diagnoses Not on filedocumented in this encounter"
--- OUTSIDE RECORDS SUMMARY | ~2019-12-28 | XMS | Encounter Summary ---
Demographics + + + | Address | [address] | | | [place] [address] | + + + | Home Phone | | + + + | Preferred Language | Unknown | + + + | Marital Status | | + + + | Hoahaoism Affiliation | Unknown | + + + | Race | White | + + + | Ethnic Group | Not or | + + + Author + + + | Author | [facility] | | | and [place] | + + + | Organization | [facility] | | [...] Team Providers + +------+ + | Care Blueprint Clerk Name | Role | Phone | + +------+ + | Mynor Kam MD | PCP | | + +------+ + Encounter Details +--------+ + + + + | Date | Type | Department | Care Team | Description | +--------+ + + + + | 10/29/ | Orders Only | [facility] | Elaine Andrews, | | | 2019 | | NEUROLOGY [address] | [address] | | | [address] | [address] | | | | | [place], [place] | [place] [address] | | | | | [address] | [phone] | | | | | [phone] | | | +--------+ + + + [...] | | | | | [place] [address] | | | | | | [phone] | | | | | | | | +--------+---------+ + + + documented as of this encounter Visit Diagnoses Not on filedocumented in this encounter"
--- OUTSIDE RECORDS SUMMARY | ~2019-12-28 | XMS | Encounter Summary ---
Demographics + + + | Address | [address] | | | [place] [address] | + + + | Home Phone | | + + + | Preferred Language | Unknown | + + + | Marital Status | | + + + | Cheondoism Affiliation | Unknown | + + + | Race | White | + + + | Ethnic Group | Not or | + + + Author + + + | Author | [facility] | | | and [place] | + + + | Organization | [facility] | | | [...] Team Providers + +------+ + | Care Executive Director Of Nursing Name | Role | Phone | + [...] | | | | [place] | [phone] | | | | | [address] | | | | | | [phone] | | | +--------+ + + + [...] | | | | | [place] [address] | | | | | | [phone] | | | | | | | | +--------+---------+ + + + documented as of this encounter Visit Diagnoses Not on filedocumented in this encounter"
--- OUTSIDE RECORDS SUMMARY | ~2019-12-28 | XMS | Encounter Summary ---
Demographics + + + | Address | [address] | | | [place] [address] | + + + | Home Phone [...] Team Providers + +------+ + | Care Pin Feather Machine Operator Name | Role | Phone [...] | | | | [place] | [phone] | | | | | [address] | | | | | | [phone] | | | +--------+ + + + [...] | | | | | [place] [address] | | | | | | [phone] | | | | | | | | +--------+---------+ + + + documented as of this encounter Visit Diagnoses Not on filedocumented in this encounter"
--- OUTSIDE RECORDS SUMMARY | ~2019-12-28 | XMS | Encounter Summary ---
Demographics + + + | Address | [address] | | | [place] [address] | + + + | Home Phone | | + + + | Preferred Language | Unknown | + + + | Marital Status | | + + + | Latter Day Affiliation | Unknown | + + + | Race | White | + + + | Ethnic Group | Not or | + + + Author + + + | Author | [facility] | | | and [place] | + + + | Organization | [facility] | | | [...] Team Providers + +------+ + | Care Cutting Machine Offbearer Name | Role | Phone | + +------+ + PCP | Unavailable | + +------+ + Encounter Details +--------+ + + + + | Date | Type | Department | Care Team | Description | +--------+ + + + + | 06/10/ | Emergency | [facility] | Edis Gudino MD | Cough; | | 2013 | | MEDICAL CENTER | [address] | Pneumonia | | | | EMERGENCY CENTER | [place] [address] | | | | | [address] | [phone] | | | | | [place], [place] | | | | | | [address] | | | | | | [phone] | | | +--------+ + + + [...] Notes by Alvaro Mcclain MD at 06/13/13 8551 Author: Alvaro Mcclain MD Service: (none) Author Type: Physician Filed: 06/13/131843 Date of Service: 06/13/130 Status: Signed Bisque Kiln Drawer: Alvaro Mcclain MD (Physician) Related Notes: Related Note by Everett Bryson PA-C (Physician Supervisor Metal Cans - Certified) f iled at 06/13/131633 I have reviewed the note and supervised the mid-level provider. Alvaro Mcclain MD 06/13/131843 Fabiola Naylor PA-C - 06/13/2013 4:30 PM PDT ED Provider Notes by Everett Bryson PA-C at 06/13/131629 Author: Everett Bryson PA-C Service: (none) Author Type: Physician Supervisor Metal Cans - Certi fied Filed: 06/13/131633 Date of Service: 06/13/131629 Status: Signed Bisque Kiln Drawer: Everett Bryson PA-C (Physician Supervisor Metal Cans - Certified) Related Notes: Cosigned by Alvaro Mcclain MD (Physician) filed at 06/13/131843 Procedures For culture results called patient's the blood culture results which grew and one set GRAM POSITIVE COCCI Patient went to the emergency room in [facility]. Provider stated that this is too e vasile for admission and she currently on the correct antibiotics for the bacteria. And was d ischarged. Patient states she is still not feeling any better. I suggested that she return to the [facility] for reevaluation. Patient states that if she is still not feeling any better by tonight she will return to [facility]. Everett Bryson PA-C 06/13/131633 Edis Ramirez MD - 06/10/2013 8:14 PM PSTFormatting of this note might be different from the origi nal. ED Provider Notes by Edis Gudino MD at 06/10/132013 Author: Edis Gudino MD Service: (none) Author Type: Physician Filed: 06/10/13 2204 Date of Service: 06/10/132013 Status: Signed Bisque Kiln Drawer: Edis Gudino MD (Physician) Formerly [facility] Department of Emergency Medicine History of [...] Procedure: TRACHEOSTOMY; Surgeon: Fabián Novoa MD; Location: [facility] MAIN OR; Service: ENT ; [...] Value Ref Range Date/Time Complete Metabolic Panel [[id number]] (Abnormal) Collected:06/10/132033 Order Status:Completed Updated:06/10/132100 Specimen Information:Blood [...] >60 >60 mL/min/1.73m2 CBC w Auto Diff [[id number]] (Abnormal) Collected:06/10/132033 Order Status:Completed Updated:06/10/132042 Specimen Information:Blood [...] Interpretation Documented by Edis Gudino MD (06/10/132126, [facility] Emergency Department, Emergency Medicine) This ED [...] soon as possible for a visit [address] [place] [address] Formerly [facility] Emergency Department If symptoms worsen [address] [place] [address] [id number] Discharge Medications: New Prescriptions BENZONATATE (TESSALON) 100 MG CAPSULE Take 1 capsule by mouth every 8 (eight) hours. LEVOFLOXACIN (LEVAQUIN) 750 MG TABLET Take 1 tablet by mouth daily. This document has been prepared with a voice recognition system. The possibility of "sound alike" candy packer errors, addition and/or deletions may occur. If there is any question p lease contact the author of the document. Additional Documentation Procedures Edis Gudino MD 06/10/13 7362 onversion Transactio n, Provider Unknown - 06/10/2013 8:09 PM PST ED Notes by Alli Giron RN at 06/10/132008 Author: Alli Giron RN Service: (none) Author Type: Registered Nurse Filed: 06/10/132009 Date of Service: 06/10/132008 Status: Signed Bisque Kiln Drawer: Alli Giron RN (Registered Nurse) Dr. Gudino @ assessing patient Alli Giron RN 06/10/132009 onver elaina Transaction, Provider Unknown - 06/10/2013 8:04 PM PST ED Notes by Alli Giron RN at 06/10/132003 Author: Alli Giron RN Service: (none) Author Type: Registered Nurse Filed: 06/10/132005 Date of Service: 06/10/132003 Status: Signed Bisque Kiln Drawer: Alli Giron RN (Registered Nurse) "The last week in April I was admitted at [facility] for pneumonia and the flu, then I [...] [place] | | | | | | [place] [address] | | | | | | [phone] | | | | | | | [...] NEW | | | Testing performed at [facility], [address] [place] [address] | | | [address] CULTURE | | | STAPHYLOCOCCUS SPECIES, COAGULASE NEGATIVEAbnormal | | | GROWTH IN ONE OF TWO | | | BOTTLESAbnormal | | | TIME TO DETECTION: 26HRS 6MIN | | | POSSIBLE CONTAMINANT, CLINICAL CORRELATION REQUIRED. | | | Testing performed at | | | [facility], [address] [place] [address] REPORT STATUS | | | 06/13/2013 FINAL [...] EXTERNAL | | | | performed at [facility];[address] | | LAB | | | | [address];[place] | | | | | | [address] | | | | + + + + + + | Non- | 4.44Comment: Testing | 3.70 - 5.10 | EXTERNAL | | | Red Blood | performed at [facility];[address] | M/uL | LAB | | | Cells | [address];[place] | | | | | Counted | [address] | | | | + + + + + + | Hemoglobin | 11.9Comment: Testing | 11.3 - 15.5 | EXTERNAL | | | | performed at [facility];[address] | g/dL | LAB | | | | [address];[place] | | | | | | [address] | | | | + + + + + + | Hematocrit, | 36.0Comment: Testing | 34.0 - 46.0 % | EXTERNAL | | | POC | performed at [facility];[address] | | LAB | | | | [address];[place] | | | | | | [address] | | | | + + + + + + | MCV | 81.0Comment: Testing | 80.0 - 100.0 fl | EXTERNAL | | | | performed at [facility];[address] | | LAB | | | | [address];[place] | | | | | | [address] | | | | + + + + + + | MCH | 26.9 (L)Comment: Testing | 27.0 - 34.0 pg | EXTERNAL | | | | performed at [facility];[address] | | LAB | | | | [address];[place] | | | | | | [address] | | | | + + + + + + | MCHC | 33.1Comment: Testing | 32.0 - 35.5 | EXTERNAL | | | | performed at [facility];[address] | g/dL | LAB | | | | [address];[place] | | | | | | [address] | | | | + + + + + + | RDW-CV | 43.3Comment: Testing | 37 - 53 fl | EXTERNAL | | | | performed at [facility];[address] | | LAB | | | | [address];[place] | | | | | | [address] | | | | + + + + + + | Platelet | 359Comment: Testing | 150 - 400 K/uL | EXTERNAL | | | Count | performed at [facility];[address] | | LAB | | | Plasma | [address];[place] | | | | | | [address] | | | | + + + + + + | MPV | 7.3Comment: Testing | fl | EXTERNAL | | | | performed at [facility];[address] | | LAB | | | | [address];[place] | | | | | | [address] | | | | + + + + + + | Differentia | AUTOMATEDComment: | | EXTERNAL | | | l Type | Testing performed at | | LAB | | | | [facility];[place] [address] | | | | + + + + + + | % Segmented | 46.4Comment: Testing | % | EXTERNAL | | | | performed at [facility];[address] | | LAB | | | Neutrophils | [address];[place] | | | | | | [address] | | | | + + + + + + | % | 39.3Comment: Testing | % | EXTERNAL | | | Lymphocytes | performed at [facility];[address] | | LAB | | | | [address];[place] | | | | | | [address] | | | | + + + + + + | % Monocytes | 8.9Comment: Testing | % | EXTERNAL | | | | performed at [facility];[address] | | LAB | | | | [address];[place] | | | | | | [address] | | | | + + + + + + | % | 4.9Comment: Testing | % | EXTERNAL | | | Eosinophils | performed at [facility];[address] | | LAB | | | | [address];[place] | | | | | | [address] | | | | + + + + + + | % Basophils | 0.5Comment: Testing | % | EXTERNAL | | | | performed at [facility];[address] | | LAB | | | | [address];[place] | | | | | | [address] | | | | + + + + + + | Absolute | 3.5Comment: Testing | 1.9 - 7.4 K/uL | EXTERNAL | | | Segmented | performed at [facility];[address] | | LAB | | | Neutrophils | [address];[place] | | | | | | [address] | | | | + + + + + + | Absolute | 2.9Comment: Testing | 1.0 - 3.9 K/uL | EXTERNAL | | | Lymphocytes | performed at [facility];[address] | | LAB | | | | [address];[place] | | | | | | [address] | | | | + + + + + + | Absolute | 0.7Comment: Testing | 0 - 0.8 K/uL | EXTERNAL | | | Monocytes | performed at [facility];[address] | | LAB | | | | [address];[place] | | | | | | [address] | | | | + + + + + + | Absolute | 0.4Comment: Testing | 0 - 0.5 K/uL | EXTERNAL | | | Eosinophils | performed at [facility];[address] | | LAB | | | | [address];[place] | | | | | | [address] | | | | + + + + + + | Absolute | 0.0Comment: Testing | 0 - 0.1 K/uL | EXTERNAL | | | Basophils | performed at [facility];[address] | | LAB | | | | [address];[place] | | | | | | [address] | | | | + + + [...] EXTERNAL | | | | performed at [facility];[address] | mmol/L | LAB | | | | [address];[place] | | | | | | [address] | | | | + + + + + + | K | 3.5Comment: Testing | 3.5 - 4.9 | EXTERNAL | | | | performed at [facility];[address] | mmol/L | LAB | | | | [address];[place] | | | | | | [address] | | | | + + + + + + | Cl | 100Comment: Testing | 99 - 109 mmol/L | EXTERNAL | | | | performed at [facility];[address] | | LAB | | | | [address];[place] | | | | | | [address] | | | | + + + + + + | CO2 | 31Comment: Testing | 23 - 32 mmol/L | EXTERNAL | | | | performed at [facility];[address] | | LAB | | | | [address];[place] | | | | | | [address] | | | | + + + + + + | Anion Gap | 9Comment: Testing | 5 - 20 mmol/L | EXTERNAL | | | | performed at [facility];[address] | | LAB | | | | [address];[place] | | | | | | [address] | | | | + + + + + + | Glucose, | 196 (H)Comment: Testing | 65 - 99 mg/dL | EXTERNAL | | | Fasting | performed at [facility];[address] | | LAB | | | | [address];[place] | | | | | | [address] | | | | + + + + + + | BUN | 11Comment: Testing | 8 - 25 mg/dL | EXTERNAL | | | | performed at [facility];[address] | | LAB | | | | [address];[place] | | | | | | [address] | | | | + + + + + + | Creatinine | 0.59Comment: Testing | 0.50 - 1.00 | EXTERNAL | | | | performed at [facility];[address] | mg/dL | LAB | | | | [address];[place] | | | | | | [address] | | | | + + + + + + | BUN/Creatin | 19Comment: Testing | | EXTERNAL | | | ine Ratio | performed at [facility];[address] | | LAB | | | | [address];[place] | | | | | | [address] | | | | + + + + + + | Calcium | 8.9Comment: Testing | 8.5 - 10.2 | EXTERNAL | | | | performed at [facility];[address] | mg/dL | LAB | | | | [address];[place] | | | | | | [address] | | | | + + + + + + | Protein, | 8.5 (H)Comment: Testing | 6.3 - 8.2 g/dL | EXTERNAL | | | Total | performed at [facility];[address] | | LAB | | | | [address];[place] | | | | | | [address] | | | | + + + + + + | Albumin | 3.2 (L)Comment: Testing | 3.6 - 5.0 g/dL | EXTERNAL | | | | performed at [facility];[address] | | LAB | | | | [address];[place] | | | | | | [address] | | | | + + + + + + | Globulin | 5.4 (H)Comment: Testing | 1.3 - 4.9 g/dL | EXTERNAL | | | | performed at [facility];[address] | | LAB | | | | [address];[place] | | | | | | [address] | | | | + + + + + + | A/G Ratio | 0.6 (L)Comment: Testing | 1.0 - 2.4 | EXTERNAL | | | | performed at [facility];[address] | | LAB | | | | [address];[place] | | | | | | [address] | | | | + + + + + + | Bilirubin | 0.3Comment: Testing | 0.1 - 1.5 mg/dL | EXTERNAL | | | Total | performed at [facility];[address] | | LAB | | | | [address];[place] | | | | | | [address] | | | | + + + + + + | ALP, | 105Comment: Testing | 35 - 115 U/L | EXTERNAL | | | External | performed at [facility];[address] | | LAB | | | | [address];[place] | | | | | | [address] | | | | + + + + + + | AST | 39Comment: Testing | 10 - 45 U/L | EXTERNAL | | | | performed at [facility];[address] | | LAB | | | | [address];[place] | | | | | | [address] | | | | + + + + + + | ALT | 59Comment: Testing | 10 - 65 U/L | EXTERNAL | | | | performed at [facility];[address] | | LAB | | | | [address];[place] | | | | | | [address] | | | | + + + [...] | | | | | | at [facility];[address] [facility] | | | | | | [facility];[place] [address] | | | | + + + [...] DAYS | | | Testing performed at [facility], [address] | | [place] [address] REPORT STATUS | | | 06/16/2013 FINAL [...]
--- OUTSIDE RECORDS SUMMARY | ~2019-12-28 | XMS | Encounter Summary ---
Demographics + + + | Address | [address] | | | [place] [address] | + + + | Home Phone [...] + + | Author | [facility] | | | and [place] | + + + | Organization | [facility] | | | and [...] Team Providers + +------+ + | Care Recruiting Internship Name | Role | Phone | + [...] Provider Unknown | | | | | [place], [place] | [phone] | | | | | [address] | | | | | | [phone] | | | +--------+ + + + [...] D | | | | | | [place] [address] | | | | | | [phone] | | | | | | | [...] | Procedure Note | + + | FoxErmias monae - 11/20/2018 1:53 PM PDT This is a non-reportable procedure | | without a radiologist report and isused for image storage only | + + documented in this encounter Visit Diagnoses + + | Diagnosis | + + | Pain Generalized pain | + + documented in this encounter"
--- OUTSIDE RECORDS SUMMARY | ~2019-12-28 | XMS | Encounter Summary ---
Demographics + + + | Address | [address] | | | [place] [address] | + + + | Home Phone [...] Team Providers + +------+ + | Care Director Workforce Management Name | Role | Phone | + +------+ + | Mynor Kam MD | PCP | | + +------+ + Encounter Details +--------+ + + + + | Date | Type | Department | Care Team | Description | +--------+ + + + + | 06/26/ | Orders Only | [facility] | Matt, | | | 2017 | | PULMONOLOGY [address] | [address], | | | | | [address] | [address] | | | | | [place], [place] | [place], | | | | | [address] | [place] [address] | | | | | [phone] | [phone] | | | | | | | [...] [place] | | | | | | [place] [address] | | | | | | [phone] | | | | | | | | +--------+---------+ + + + documented as of this encounter Visit Diagnoses Not on filedocumented in this encounter"
--- OUTSIDE RECORDS SUMMARY | ~2019-12-28 | XMS | Encounter Summary ---
Demographics + + + | Address | [address] | | | [place] [address] | + + + | Home Phone | | + + + | Preferred Language | Unknown | + + + | Marital Status | | + + + | Orthodoxy Affiliation | Unknown | + + + | Race | White | + + + | Ethnic Group | Not or | + + + Author + + + | Author | [facility] | | | and [place] | + + + | Organization | [facility] | | | [...] Team Providers + +------+ + | Care Manager Strategic Partnerships Name | Role | Phone | + [...] + + | 09/16/ | Telephone | [facility] | Matt, | Appointment | | 2020 | | PULMONOLOGY [address] | [address], | | | | | [address] | [address] | | | | | [place], [place] | [place], | | | | | [address] | [place] [address] | | | | | [phone] | [phone] | | | | | | | [...] - 09/17/2019 8:51 AM Bry, is calling [facility] Appointment and would like a call back. Additional Call Details: Patient would like a call back in regards to getting help/informa tion about the Orderlord GINA for her 09/20 Appointment. Can be reached at Home Number list in [place] If this is a symptom based call, was patient offered triage? Not Applicable If this is a symptom based call and you were unable to immediately transfer the call to a ainsley lloyd laboratory inspector was caller made aware that if at [...] D | | | | | | [place] [address] | | | | | | [phone] | | | | | | | | +--------+---------+ + + + documented as of this encounter Visit Diagnoses Not on filedocumented in this encounter"
--- OUTSIDE RECORDS SUMMARY | ~2019-12-28 | XMS | Encounter Summary ---
Demographics + + + | Address | [address] | | | [place] [address] | + + + | Home Phone | | + + + | Preferred Language | Unknown | + + + | Marital Status | | + + + | Samaritan Affiliation | Unknown | + + + | Race | White | + + + | Ethnic Group | Not or | + + + Author + + + | Author | [facility] | | | and [place] | + + + | Organization | [facility] | | | [...] Team Providers + +------+ + | Care Food And Beverage Service Manager Name | Role | Phone | [...] [address] | | | | | [place], [place] | [place] [address] | | | | | [address] | [phone] | | | | | [phone] | | | +--------+--------+ + + + [...] | | | | | [place] [address] | | | | | | [phone] | | | | | | | | +--------+---------+ + + + documented as of this encounter Visit Diagnoses Not on filedocumented in this encounter"
--- OUTSIDE RECORDS SUMMARY | ~2019-12-28 | XMS | Encounter Summary ---
Demographics + + + | Address | [address] | | | [place] [address] | + + + | Home Phone [...] Team Providers + +------+ + | Care Clinical Nurse Educator Name | Role | Phone | + +------+ + | Mynor Kam MD | PCP | | + +------+ + Encounter Details +--------+ + + + + | Date | Type | Department | Care Team | Description | +--------+ + + + + | 12/27/ | Telephone | [facility] | Pam Jeffries RN | | | 2020 | | PULMONOLOGY [address] | | | | | | [address] | | | | | | [place] | | | | | | [address] | | | | | | [phone] | | | +--------+ + + + [...] this encounter Miscellaneous Notes Telephone Encounter - Esperanza Gutierrez MD - 12/28/2019 9:38 AM PDTWith her his tory of ARDS after a viral infection, it is important that she goes to the ED YAZAN. Esperanza Gutierrez MD Pulmonary and Critical Care Medicine [facility] [address], [place] [address] [place] [address] Office Number: [phone] elephone Encounter - Pam Jeffries RN - 12/28/2019 8:37 AM PDTJenni called with complaints of fevers . Chills, shortness of breath, cough, loss of smell, nausea, low oxygen saturations (87%) an d high heart rate, (95), she is wanting medication prescribed. She does not want to go to ed and states [facility] knows she does not have covid. Spoke to Dr. Gutierrez. Per Dr. Gutierrez, [place] i is to go to Ed immediately. Gilma stated understanding of all instructions and will go to ED closest to her immediately. Gilma had no further questions or concerns. Electronically si gned by Pam Jeffries RN at 12/28/2019 8:42 AM PDTdocumented in this encounter Plan of Treatment +--------+---------+ + + + | Date | Type | Specialty | Care Team | Description | +--------+---------+ + + + | 03/22/ | Office | Neurology | Elaine Andrews, | | | 2020 | Visit | | MD Kim STOUT | | | | | | [address] [place] | | | | | | [place] [address] | | | | | | [phone] | | | | | | | | +--------+---------+ + + + documented as of this encounter Visit Diagnoses Not on filedocumented in this encounter"
--- OUTSIDE RECORDS SUMMARY | ~2019-12-28 | XMS | Encounter Summary ---
Demographics + + + | Address | [address] | | | [place] [address] | + + + | Home Phone | | + + + | Preferred Language | Unknown | + + + | Marital Status | | + + + | Confucianism Affiliation | Unknown | + + + [...] Team Providers + +------+ + | Care Customer Account Coordinator Name | Role | Phone | + +------+ + | Mynor Kam MD | PCP | | + +------+ + Encounter Details +--------+ + + + + | Date | Type | Department | Care Team | Description | +--------+ + + + + | 09/20/ | Virtual | [facility] | Matt, | Uncontrolled | | 2020 | Office | PULMONOLOGY [address] | Esperanza Arora, | moderate persistent | | | Visit | [address] | [address] | asthma (Primary Dx); | | | | [place], [place] | [place], | ARDS survivor; | | | | [address] | [place] [address] | Restrictive lung | | | | [phone] | [phone] | disease; Chronic | | | | [...] bidirectional video se ssion. Service was provided [id number] with the patient via interactive videoconferencing Time Based Coding Total time (in minutes) including non nyza-cg-[id number] time (reviewing records, documentation, etc..) 30 You have chosen to receive care through the use of telemedicine. Telemedicine enables [facility] care providers at different locations to [...] COOPER and obesity, who was admitted to [facility] from 05/05/13 to 05/14/13 for acut e respiratory failure from ARDS due to H1N1 infection. 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 She reports abi t she had a [...] and more dependent on her c are iron assorter for her ADLs and chores at home. [...] the past. S he has lived in [place] most of her life. She now lives in [place]. She lived in [place] for two years when she was younger. [...] Bronchitis DVT (deep venous thrombosis) ([facility]) in thigh; no longer on coumadin Dvt femoral (deep venous thrombosis) ([facility]) Epilepsy ([facility]) Fibromyalgia Fibromyalgia HX OTHER MEDICAL 05/04/2013 Acute [...] Procedure: TRACHEOSTOMY; Surgeon: Fabián Novoa MD; Location: [facility] MAIN OR; Service: ENT; Laterality: N/A; [...] PCP for a referral t o the [facility]. 6. End stage [...] Gutierrez MD Pulmonary and Critical Care Medicine [facility] [address], [place] [address] documente d in this encounter Plan of Treatment +--------+---------+ + + + | Date | Type | Specialty | Care Team | Description | +--------+---------+ + + + | 03/22/ | Office | Neurology | Elaine Andrews, | | | 2019 | Visit | | MD Kim STOUT | | | | | | [address] | | | | | | [place] [address] | | | | | | [phone] | | | | | | | [...]
--- OUTSIDE RECORDS SUMMARY | ~2019-12-28 | XMS | Encounter Summary ---
Demographics + + + | Address | [address] | | | [place] [address] | + + + | Home Phone | | + + + | Preferred Language | Unknown | + + + | Marital Status | | + + + | Yazdanism Affiliation | Unknown | + + + [...] Providers + +------+ + | Care Senior Software Engineer Name | Role | Phone | + +------+ + PCP | Unavailable | + +------+ + Encounter Details +--------+ + + + + | Date | Type | Department | Care Team | Description | +--------+ + + + + | 01/08/ | Hospital | [facility] | Fabián Salas | | | 2010 - | Encounter | MED [facility] | MD Miller [address] | | | | | CENTER [address] | [address] | | | 02/04/ | | [place] | [place] [address] | | | 2010 | | [address] | [phone] | | | | | [phone] | | | +--------+ + + + [...] 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 Fortino hodge is the [...] STOUT | | | | | | [facility] | | | | | | [place] [address] | | | | | | [phone] | | | | | | | [...] +--------+ + + + | DILUTE FARSHAD DEVRIESER | Routin | 01/08/2011 | | Results [...] [facility] | | | activity | Performed: [facility] | | . [facility] | | | | [facility] | | MEDICAL | | | | [place], Formerly named [facility] [address], | | [place] - | | | | [place] [address] | | LABORATORY | | | | CLIA: [id number] | | | | + + + + + + + + | Specimen | + + | | + + + + + + + | Performing | Address | City/State/Zipcode | Phone Number | | Organization | | | | + + + + + | [facility] | [address] | [place] | [phone] | | [facility] | | [address] | | | - LABORATORY | | | | + + + + + | [facility] | [address] | [place], [place] | | | [facility] | | [address], [facility] | | | - LABORATORY [...] [facility] | | | activity | Performed: [facility] | | [facility] | | | | [facility] | | MEDICAL | | | | Center, [address], | | CENTER - | | | | [place] [address] | | LABORATORY | | | | CLIA: [id number] | | | | + + + + + + + + | Specimen | + + | | + + + + + + + | Performing | Address | City/State/Zipcode | Phone Number | | Organization | | | | + + + + + | [facility] | [address] | [place] | [phone] | | [facility] | | [address] | | | - LABORATORY | | | | + + + + + | [facility] | [address] | [place] | | | [facility] | | [id number] | | | - LABORATORY [...] | | LABORATORY | | | | [facility] | | | | | | Center, [address], | | | | | | [place] [address] | | | | | | [place]: [id number] | | | | + + + + + + + + | Specimen | + + | | + + + + + + + | Performing | Address | City/State/Zipcode | Phone Number | | Organization | | | | + + + + + | [facility] | [address] | [place] | [phone] | | [facility] | | [address] | | | - LABORATORY | | | | + + + + + | [facility] | [address] | [place] | | | [facility] | | [address], [facility] | | | - LABORATORY [...] MEDICAL | | | | | | [place] - | | | | | | [...] Factor V Leiden mutation | | [facility] | | | | was not detected. [...] | | | | | agreement with [employer] | | | | | | [employer] | | | | | | [...] Toño | | | | | | [facility] | | | | | | [place], [address] , | | | | | | [place] [address] | | | | | | [place]: [id number] | | | | + + + + + + + + | Specimen | + + | | + + + + + + + | Performing | Address | City/State/Zipcode | Phone Number | | Organization | | | | + + + + + | [facility] | [address] | [place] | [phone] | | [facility] | | [address] | | | - LABORATORY | | | | + + + + + | [facility] | [address] | [place] | | | [facility] | | [address], [facility] | | | - LABORATORY [...] (H) | 31.8 - 45.7 sec | [facility] | | | | | | [facility] | | | | | | MEDICAL | | | | | | CENTER - | | | | | | LABORATORY | | + + + + + + | dRVVT, Mix | 1.0Comment: Negative A | 0.0 - 1.2 | [facility] | | | ratio | Lupus Inhibitor is not | | [facility] | | | | ruled out by [...] Performed: | | | | | | Located Within [facility] | | | | | | [facility], [address] | | | | | | [address] [place] [address] | | | | | | CLIA: [id number] | | | | + + + + + + + + | Specimen | + + | | + + + + + + + | Performing | Address | City/State/Zipcode | Phone Number | | Organization | | | | + + + + + | [facility] | [address] | [place] | [phone] | | [facility] | | [address] | | | - LABORATORY | | | | + + + + + | [facility] | [address] | [place] | | | [facility] | | [id number] | | | - LABORATORY [...] 2.6Comment: A ratio of | >1.9 | [facility] | | | Protein C | less than 2.0 is | | [facility] | | | Resistance | suggestive of APC | | MEDICAL | | | | Resistance. Testing | | CENTER - | | | | Performed: Toño | | LABORATORY | | | | [facility] | | | | | | Center, [address], | | | | | | [place] [address] | | | | | | CLIA: [id number] | | | | + + + + + + + + | Specimen | + + | | + + + + + + + | Performing | Address | City/State/Zipcode | Phone Number | | Organization | | | | + + + + + | [facility] | [address] | [place] | [phone] | | [facility] | | [address] | | | - LABORATORY | | | | + + + + + | [facility] | [address] | [place] | | | [facility] | | [id number] | | | - LABORATORY [...] | | | n III | Performed: [facility] | | [facility] | | | Antigen | [facility] | | MEDICAL | | | | [place], [address] , | | CENTER - | | | | [place] [address] | | LABORATORY | | | | CLIA: [id number] | | | | + + + + + + + + | Specimen | + + | | + + + + + + + | Performing | Address | City/State/Zipcode | Phone Number | | Organization | | | | + + + + + | [facility] | [address] | [place], [place] | [phone] | | [facility] | | [address] | | | - LABORATORY | | | | + + + + + | [facility] | [address] | [place], [place] | | | [facility] | | [facility], [facility] | | | - LABORATORY [...] [facility] | | | Time, | Performed: [facility] | | [facility] | | | Control | [facility] | | MEDICAL | | | | Center, [address] , | | CENTER - | | | | [place] [address] | | LABORATORY | | | | CLIA: [id number] | | | | + + + + + + + + | Specimen | + + | | + + + + + + + | Performing | Address | City/State/Zipcode | Phone Number | | Organization | | | | + + + + + | [facility] | [address] | [place], [place] | [phone] | | [facility] | | [address] | | | - LABORATORY | | | | + + + + + | [facility] | [address] | [place], [place] | | | [facility] | | [facility], [facility] | | | - LABORATORY [...] The presence | <25 MPS U/mL | JACOBNCE | | | tidylserine | of phosphatidylserine [...] [place], | | | | | | [place] [address] | | | | | | CLIA: [id number] | | | | + + + + + + + + | Specimen | + + | | + + + + + + + | Performing | Address | City/State/Zipcode | Phone Number | | Organization | | | | + + + + + | [facility] | [address] | [place] | [phone] | | [facility] | | [address] | | | - LABORATORY | | | | + + + + + | [facility] | [address] | [place] | | | [facility] | | [address], [facility] | | | - LABORATORY [...] | | | N ACTIVITY | Performed: [facility] | | [facility] | | | | [facility] | | MEDICAL | | | | Center, [address], | | CENTER - | | | | [place] [address] | | LABORATORY | | | | [place]: [id number] | | | | + + + + + + + + | Specimen | + + | | + + + + + + + | Performing | Address | City/State/Zipcode | Phone Number | | Organization | | | | + + + + + | [facility] | [address] | [place], [place] | [phone] | | [facility] | | [address] | | | - LABORATORY | | | | + + + + + | [facility] | [address] | [place], [place] | | | [facility] | | [address] | | | - LABORATORY [...] | | | ORAL ANTICOAGULATION | | [facility] | | | | RANGE [...] [address] | [place] | [phone] | | [facility] | | [address] | | | - LABORATORY | | | | + + + + + | [facility] | [address] | [place], [place] | | | [facility] | | [address], [facility] | | | - LABORATORY [...] + | [facility] | [address] | [place], [place] | [phone] | | [facility] | | [address] | | | - LABORATORY | | | | + + + + + | [facility] | [address] | [place], [place] | | | [facility] | | [address] [place] [address] | | | - LABORATORY | | [...] + | [facility] | [address] | [place] | [phone] | | [facility] | | [address] | | | - LABORATORY | | | | + + + + + | [facility] | [address] | [place] | | | [facility] | | [address], [facility] | | | - LABORATORY [...] | >60Comment: For | >60 mL/min/A | TO[facility]O | | | GFR | -Americans, | [...] + | [facility] | [address] | [place] | [phone] | | [facility] | | [address] | | | - LABORATORY | | | | + + + + + | [facility] | [address] | [place], [place] | | | [facility] | | [address], [facility] | | | - LABORATORY [...] [facility] | | | | | | [facility]HAEL [...] + + | [facility] | [address] | [place] | [phone] | | [facility] | | [address] | | | - LABORATORY | | | | + + + + + | [facility] | [address] | [place] | | | [facility] | | [address] | | | - LABORATORY [...] | | Cells | | M/uL | MICHAEL | | | | | [...] [address] | [place] | [phone] | | [facility] | | [address] | | | - LABORATORY | | | | + + + + + | [facility] | [address] | [place] | | | [facility] | | [address] | | | - LABORATORY | | | | + + + + + documented in this encounter Visit Diagnoses Not on filedocumented in this encounter"
--- OUTSIDE RECORDS SUMMARY | ~2019-12-28 | XMS | Encounter Summary ---
Demographics + + + | Address | [address] | | | [place] [address] | + + + | Home Phone | | + + + | Preferred Language | Unknown | + + + | Marital Status | | + + + | Methodist Affiliation | Unknown | + + + [...] Providers + +------+ + | Care Construction Site Crossing Guard Name | Role | Phone | + +------+ + | Mynor Kam MD | PCP | | + +------+ + Encounter Details +--------+ + + + + | Date | Type | Department | Care Team | Description | +--------+ + + + + | 06/02/ | Orders Only | [facility] | Matt, | | | 2019 | | PULMONOLOGY [address] | [address]ora, | | | | | [address] | [address] | | | | | [place], [place] | [place], | | | | | [address] | [place] [address] | | | | | [phone] | [phone] | | | | | | | [...] [place] | | | | | | [place] [address] | | | | | | [phone] | | | | | | | | +--------+---------+ + + + documented as of this encounter Visit Diagnoses Not on filedocumented in this encounter"
--- OUTSIDE RECORDS SUMMARY | ~2019-12-28 | XMS | Encounter Summary ---
Demographics + + + | Address | [address] | | | [place] [address] | + + + | Home Phone [...] + + + | Author | [facility] | | | and [place] | + + + | Organization | [facility] | | | [...] Team Providers + +------+ + | Care Naval Surface Fire Support Planner Name | Role | Phone | + +------+ + PCP | Unavailable | + +------+ + Encounter Details +--------+ + + + + | Date | Type | Department | Care Team | Description | +--------+ + + + + | 07/19/ | Hospital | [facility] | Conversion | Pain | | 2015 | Encounter | CONVERSION [address] | Transaction, | | | | | [address] | Provider Unknown | | | | | [place], [place] | [phone] | | | | | [address] | (Fax) | | | | | [phone] | | | +--------+ + + + [...] D | | | | | | [place] [address] | | | | | | [phone] | | | | | | | [...]
--- OUTSIDE RECORDS SUMMARY | ~2019-12-28 | XMS | Encounter Summary ---
Demographics + + + | Address | [address] | | | [place] [address] | + + + | Home Phone [...] Team Providers + +------+ + | Care Vending Route Driver Name | Role | Phone | [...] + + | 12/21/ | Virtual | [facility] | Elaine Andrews, | Seizure disorder | | 2019 | Office | NEUROLOGY [address] | [address] | ([facility]) (Primary Dx); | | | Visit | [address] | [address] | Driving safety | | | | [place], [place] | [place] [address] | issue; Chronic | | | | [address] | [phone] | migraine; Memory | | | | [phone] | | loss | +--------+ + + [...] due to COVID-19 pandemic. Service was provided [id number] with the patient via interactive videoconferencing Video [...] [facility]. The patient confirms they are currently [...] She had a virtual visit with her GI/customer service consultant Dr [facility] [place] 12[facility]. She has cirrhosis and hepatic encephalopathy. [...] Possible hepatic encephalopathy as determined by her customer service consultant/GI specialist at [facility] in [place]. She is also on on multiple psychoactive [...] experiencing toxic encephalopathy I have counseled her small animal caretaker in detail about watching out for seizures [...] D | | | | | | [facility] [place] [address] | | | | | | [phone] | | | | | | | [...]
--- OUTSIDE RECORDS SUMMARY | ~2019-12-28 | XMS | Encounter Summary ---
Demographics + + + | Address | [address] | | | [place] [address] | + + + | Home Phone | | + + + | Preferred Language | Unknown | + + + | Marital Status | | + + + | Faith Affiliation | Unknown | + + + | Race | White | + + + | Ethnic Group | Not or | + + + Author + + + | Author | [facility] | | | and [place] | + + + | Organization | [facility] | | [...] Team Providers + +------+ + | Care Communications Instructor Name | Role | Phone | [...] Provider Unknown | | | | | [place], [place] | [phone] | | | | | [address] | | | | | | [phone] | | | +--------+ + + + [...] D | | | | | | [place] [address] | | | | | | [phone] | | | | | | | | +--------+---------+ + + + documented as of this encounter Procedures + +--------+ + + + | Procedure Name | Priori | Date/Time | Associated Diagnosis | Comments | | | ty | | | | + +--------+ + + + | XR CHEST 2 VIEWS | Routin | 09/24/2013 | | Results for this | | | e | 11:17 PM | | procedure are in the | | | | PDT | | results section. | + +--------+ + + + documented in this encounter Results XR Chest 2 Vws (09/24/2013 11:17 PM PDT) + + | [...]
--- OUTSIDE RECORDS SUMMARY | ~2019-12-28 | XMS | Encounter Summary ---
Demographics + + + | Address | [address] | | | [place] [address] | + + + | Home Phone [...] Team Providers + +------+ + | Care Milk Tester Name | Role | Phone | + +------+ + | Mynor Kam MD | PCP | | + +------+ + Encounter Details +--------+ + + + + | Date | Type | Department | Care Team | Description | +--------+ + + + + | 06/26/ | Orders Only | [facility] | Matt, | | | 2019 | | PULMONOLOGY [address] | [address] Arora, | | | | | [address] | [address] | | | | | [place], [place] | [place], | | | | | [address] | [place] [address] | | | | | [phone] | [phone] | | | | | | | [...] [place] | | | | | | [place] [address] | | | | | | [phone] | | | | | | | | +--------+---------+ + + + documented as of this encounter Visit Diagnoses Not on filedocumented in this encounter"
--- OUTSIDE RECORDS SUMMARY | ~2019-12-28 | XMS | Encounter Summary ---
Demographics + + + | Address | [address] | | | [place] [address] | + + + | Home Phone | | + + + | Preferred Language | Unknown | + + + | Marital Status | | + + + | Protestant Affiliation | Unknown | + + + | Race | White | + + + | Ethnic Group | Not or | + + + Author + + + | Author | [facility] | | | and [place] | + + + | Organization | [facility] | | [...] Team Providers + +------+ + | Care Restaurant Front Manager Name | Role | Phone | + +------+ + PCP | Unavailable | + +------+ + Encounter Details +--------+ + + + + | Date | Type | Department | Care Team | Description | +--------+ + + + + | 08/13/ | Orders Only | [facility] | Elaine Andrews, | | | 2019 | | [address] | MD Kim [address] | | | | | [place], [place] | [address] | | | | | [address] | [place] [address] | | | | | [phone] | [phone] | | | | | | | [...] D | | | | | | [place] [address] | | | | | | [phone] | | | | | | | | +--------+---------+ + + + documented as of this encounter Procedures + +--------+ + + + | Procedure Name | Priori | Date/Time | Associated Diagnosis | Comments | | | ty | | | | + +--------+ + + + | EXTERNAL LAB: [facility] | Routin | 08/13/2018 | | Results [...] + + + + | Non- | 4.31 | 3.70 - 5.10 | EXTERNAL | | | Red Blood | | 10*6/uL | LAB | | | Cells | | | | | | Counted | | | | | + + + + + + | Hemoglobin | 11.4 | 11.3 - 15.5 | [...] | | | | using the MDRD IDNJ | | | | | | traceable [...]
--- OUTSIDE RECORDS SUMMARY | ~2019-12-28 | XMS | Encounter Summary ---
Demographics + + + | Address | [address] | | | [place] [address] | + + + | Home Phone | | + + + | Preferred Language | Unknown | + + + | Marital Status | | + + + | Confucianist Affiliation | Unknown | + + + [...] Team Providers + +------+ + | Care Padding Gluer Name | Role | Phone | + [...] + + | 07/22/ | Refill | [facility] | Darryl Elaine, | Medication Refill | | 2019 | | NEUROLOGY [address] | [address] | (refill) | | | | [address] | [address] | | | | | [place], [place] | [place] [address] | | | | | [address] | [phone] | | | | | [phone] | | | +--------+--------+ + + + [...] Miscellaneous Notes Telephone Encounter - Lashaun Scott Board Setter - 07/23/2019 11:24 AM PDTL ast visit: [...] in this encoun ter Plan of Treatment +--------+---------+ + + + | Date | Type | Specialty | Care Team | Description | +--------+---------+ + + + | 03/22/ | Office | Neurology | Elaine Andrews, | | | 2019 | Visit | | [address] | | | | | | [place] | | | | | | [place] [address] | | | | | | [phone] | | | | | | | | +--------+---------+ + + + documented as of this encounter Visit Diagnoses Not on filedocumented in this encounter"
--- OUTSIDE RECORDS SUMMARY | ~2019-12-28 | XMS | Encounter Summary ---
Demographics + + + | Address | [address] | | | [place] [address] | + + + | Home Phone [...] + + + | Author | [facility] | | | and [place] | + + + | Organization | [facility] | | [...] Team Providers + +------+ + | Care Journalism Instructor Name | Role | Phone | [...] Provider Unknown | | | | | [place], [place] | [phone] | | | | | [address] | | | | | | [phone] | | | +--------+ + + + [...] D | | | | | | [place] [address] | | | | | | [phone] | | | | | | | [...]
--- OUTSIDE RECORDS SUMMARY | ~2019-12-28 | XMS | Encounter Summary ---
Demographics + + + | Address | [address] | | | [place] [address] | + + + | Home Phone [...] Team Providers + +------+ + | Care Merchandise Planner Name | Role | Phone | + +------+ + | Mynor Kam MD | PCP | | + +------+ + Reason for Visit + +--------+ + | Reason | Onset | Comments | | | Date | | + +--------+ + | Appointment | 10/04/ | schedule | | | 2020 | | + +--------+ + Encounter Details +--------+ + + + + | Date | Type | Department | Care Team | Description | +--------+ + + + + | 10/04/ | Telephone | [facility] | Elaine Andrews, | Appointment | | 2020 | | NEUROLOGY [address] | [address] | (schedule) | | | | [address] | [address] | | | | | [place], [place] | [place] [address] | | | | | [address] | [phone] | | | | | [phone] | | | +--------+ + + + [...] Telephone Encounter - Rowena Scott CMA - 10/05/2019 4:34 PM PDTCalled patient gabi major inbox message. Informed her 9:25am appt has already been taken, yet 12:55pm and 2:45pm appts are still available. She would like to schedule virtual appt for 12:55pm. Informed he r I would add her to the schedule. She stated understanding., Virtual visit, October 05, at 12 :55pm, rendered information for 2 calls she will receive. elephone Encounter - Aliya Mak - 10/05/2019 4:30 PM PDTGilma, is returning call for Appointment (schedule) and would like a call back. Additional Call Details: Patient states she would like to complete the virtual visit on 10/06/19 at 9:25 am. Please call back if needed. elephone Encounter - Rowena Camargo CMA - 10/05/2019 4:12 PM PDTCalled patient back offered virtual appt on at 9:25am, 12:55pm or 2:45pm if appts are still available. Left VM to call office ba ck. elephone Carissa Albright I - 10/05/2019 12:33 PM PDTAlexandriai, is calling regarding Appointment (igor staples) and would like a call back. Additional Call Details: Call back on home number listed. If this is a symptom based call, was patient offered triage? Not Applicable If this is a symptom based call and you were unable to immediately transfer the call to a [employer] utility worker was caller made aware that if at [...] | | | | | [place] [address] | | | | | | [phone] | | | | | | | | +--------+---------+ + + + documented as of this encounter Visit Diagnoses Not on filedocumented in this encounter"
--- OUTSIDE RECORDS SUMMARY | ~2019-12-28 | XMS | Encounter Summary ---
Demographics + + + | Address | [address] | | | [place] [address] | + + + | Home Phone [...] Team Providers + +------+ + | Care Heavy Threader Name | Role | Phone | + +------+ + | Mynor Kam MD | PCP | | + +------+ + Encounter Details +--------+ + + + + | Date | Type | Department | Care Team | Description | +--------+ + + + + | 09/21/ | Orders Only | [facility] | Matt, | | | 2019 | | PULMONOLOGY [address] | [address], | | | | | [address] | [address] | | | | | [place], [place] | [address] [place], | | | | | [address] | [place] [address] | | | | | [phone] | [phone] | | | | | | | [...] [place] | | | | | | [place] [address] | | | | | | [phone] | | | | | | | | +--------+---------+ + + + documented as of this encounter Visit Diagnoses Not on filedocumented in this encounter"
--- OUTSIDE RECORDS SUMMARY | ~2019-12-28 | XMS | Encounter Summary ---
Demographics + + + | Address | [address] | | | [place] [address] | + + + | Home Phone [...] + + + | Author | [facility] | + + + | Organization | [facility] | + + + | Address | [...] Providers + +------+ + | Care Sales Management Trainee Name | Role | Phone | + +------+ + | Erlinda Oneal PA-C | PCP | | + +------+ + Encounter Details +--------+ + + + + | Date | Type | Department | Care Team | Description | +--------+ + + + + | 11/11/ | Outside | Neurophysiology | Dmitri, | | | 2015 | Referral | EEG at [facility] [address] | [address] | | | | Order | [address] | [place]NIE [place] | | | | | [facility] | [place] [address] | | | | | [place], [facility] Floor | [phone] | | | | | [place], [place] | | | | | | [address] | | | | | | [phone] | | | +--------+ + + + [...] 1965 Medical | | | Record Number: [id number] Date of Test: 11/11/2014 Place of Service: | | | [facility] Department: EEG [facility] - [id number] SLEEP DEPRIVED | | | EEG Indication: [...] attenuates with eye opening. There are frequent mgphf-lis-jbbo | | | discharges occurring at 2 Hz with a broad generalized field, though | | | consistently with a F3-C3-P3 lead-in. Guqil-ncj-dmlh discharges | | | generally have no clinical correlate. Photic stimulation results in a | | | symmetric photic driving response. At 20 Hz flash frequency, there | | | is a 5 second run of xgypc-eui-vflp discharges, initially at 2 Hz | | [...] drowsy routine EEG. | | | Frequent jmsrv-zba-zvld discharges with a generalized field (though | | | consistently with a left brupgq-poydcm-gnmdgprd lead-in), with | | | activation during hyperventilation and photic stimulation, in the | | | context of clinical history is most consistent with a primary | | | generalized epilepsy though focal onset with rapid bilateral | | | synchrony cannot be ruled out entirely. There was one possible | | | clinical event of subtle myoclonus associated with jonlm-ebm-pubu | | | discharges during photic stimulation though video quality was poor. | | | Electronically signed on 11/11/2014 at 10:34 AM SCOTT CAMARILLO | | | . 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
--- OUTSIDE RECORDS SUMMARY | ~2019-12-28 | XMS | Encounter Summary ---
Demographics + + + | Address | [address] | | | [place] [address] | + + + | Home Phone | | + + + | Preferred Language | Unknown | + + + | Marital Status | | + + + | Presybeterian Affiliation | Unknown | + + + | Race | White | + + + | Ethnic Group | Not or | + + + Author + + + | Author | [facility] | | | and [place] | + + + | Organization | [facility] | | [...] Team Providers + +------+ + | Care Rail Bender Name | Role | Phone | + [...] + + | 04/05/ | Refill | [facility] | Elaine Andrews, | Medication Refill | | 2019 | | NEUROLOGY [address] | MD [address] | | | | | [address] | [address] | | | | | [place], [place] | [place] [address] | | | | | [address] | [phone] | | | | | [phone] | | | +--------+--------+ + + + [...] Miscellaneous Notes Telephone Encounter - Lashaun Scott Satellite Specialist - 04/05/2019 1:19 PM PSTL ast visit: 08/13/2018 Next visit: 05/27/2019 Last filled: 10/29/18 Number of refills: 3 Per last note: Gabapentin 300mg Take 4 caps morning, continue 3 caps at noon and 3 caps at night. P STdocumented in this encounter Plan of Treatment +--------+---------+ + + + | Date | Type | Specialty | Care Team | Description | +--------+---------+ + + + | 03/22/ | Office | Neurology | Elaine Andrews, | | | 2019 | Visit | | MD [address] | | | | | | [address] | | | | | | [place] [address] | | | | | | [phone] | | | | | | | | +--------+---------+ + + + documented as of this encounter Visit Diagnoses Not on filedocumented in this encounter"
--- OUTSIDE RECORDS SUMMARY | ~2019-12-28 | XMS | Encounter Summary ---
Demographics + + + | Address | [address] | | | [place] [address] | + + + | Home Phone [...] Team Providers + +------+ + | Care Information Assurance Manager Name | Role | Phone | [...] + + | 07/22/ | Refill | [facility] | Darryl Elaine, | Medication Refill | | 2019 | | NEUROLOGY [address] | [address] | (refill) | | | | [address] | [address] | | | | | [place], [place] | [place] [address] | | | | | [address] | [phone] | | | | | [phone] | | | +--------+--------+ + + + [...] Miscellaneous Notes Telephone Encounter - Lashaun Scott Relay Motorman - 07/23/2019 11:24 AM PDTL ast visit: [...] | | | | | [place] [address] | | | | | | [phone] | | | | | | | | +--------+---------+ + + + documented as of this encounter Visit Diagnoses Not on filedocumented in this encounter"
--- OUTSIDE RECORDS SUMMARY | ~2019-12-28 | XMS | Encounter Summary ---
Demographics + + + | Address | [address] | | | [place] [address] | + + + | Home Phone [...] Team Providers + +------+ + | Care Flotation Tender Helper Name | Role | Phone | + +------+ + PCP | Unavailable | + +------+ + Encounter Details +--------+ + + + + | Date | Type | Department | Care Team | Description | +--------+ + + + + | 01/08/ | Hospital | [facility] | Fabián Salas | | | 2010 - | Encounter | MED CTR CANCER | MD Miller [address] | | | | | CENTER [address] | [address] | | | 02/04/ | | [place] | [place] [address] | | | 2010 | | [address] | [phone] | | | | | [phone] | | | +--------+ + + + [...] STOUT | | | | | | [facility] | | | | | | [place] [address] | | | | | | [phone] | | | | | | | [...] [facility] | | | activity | Performed: Tok | | . MICHAEL | | | | [facility] | | MEDICAL | | | | [address], [facility] [address], | | [place] - | | | | [place] [address] | | LABORATORY | | | | CLIA: [id number] | | | | + + + + + + + + | Specimen | + + | | + + + + + + + | Performing | Address | City/State/Zipcode | Phone Number | | Organization | | | | + + + + + | [facility] | [address] | [place] | [phone] | | [facility] | | [address] | | | - LABORATORY | | | | + + + + + | [address] | [address] | [place], [place] | | | [facility] | | [address], [facility] | | | - [...] [facility] | | | activity | Performed: Tok | | [facility] | | | | [facility] | | MEDICAL | | | | Center, [address], | | CENTER - | | | | [place] [address] | | LABORATORY | | | | CLIA: [id number] | | | | + + + + + + + + | Specimen | + + | | + + + + + + + | Performing | Address | City/State/Zipcode | Phone Number | | Organization | | | | + + + + + | [address] | [address] | [place] | [phone] | | [facility] | | [address] | | | - LABORATORY | | | | + + + + + | [address] | [address] | [place] | | | [facility] | | [id number] | | | - LABORATORY | [...] | | LABORATORY | | | | [facility] | | | | | | Center, [address], | | | | | | [place] [address] | | | | | | [place]: [id number] | | | | + + + + + + + + | Specimen | + + | | + + + + + + + | Performing | Address | City/State/Zipcode | Phone Number | | Organization | | | | + + + + + | [address] | [address] | [place] | [phone] | | [facility] | | [address] | | | - LABORATORY | | | | + + + + + | [address] | [address] | [place] | | | [facility] | | [address], [facility] | | | - [...] MEDICAL | | | | | | [place] - | | | | | | [...] | | | | | agreement with [employer] | | | | | | [employer] | | | | | | [...] Toño | | | | | | [facility] | | | | | | [address], [address] , | | | | | | [place] [address] | | | | | | [place]: [id number] | | | | + + + + + + + + | Specimen | + + | | + + + + + + + | Performing | Address | City/State/Zipcode | Phone Number | | Organization | | | | + + + + + | [address] | [address] | [place] | [phone] | | [facility] | | [address] | | | - LABORATORY | | | | + + + + + | [address] | [address] | [place] | | | [facility] | | [address], [facility] | | | - [...] Performed: | | | | | | [facility] | | | | | | [facility], [address] | | | | | | [address] [place] [address] | | | | | | CLIA: [id number] | | | | + + + + + + + + | Specimen | + + | | + + + + + + + | Performing | Address | City/State/Zipcode | Phone Number | | Organization | | | | + + + + + | [address] | [address] | [place] | [phone] | | [facility] | | [address] | | | - LABORATORY | | | | + + + + + | [address] | [address] | [place] | | | [facility] | | [id number] | | | - LABORATORY | [...] | less than 2.0 is | | [facility] | | | Resistance | suggestive of APC | | MEDICAL | | | | Resistance. Testing | | CENTER - | | | | Performed: Toño | | LABORATORY | | | | [facility] | | | | | | Center, [address], | | | | | | [place] [address] | | | | | | CLIA: [id number] | | | | + + + + + + + + | Specimen | + + | | + + + + + + + | Performing | Address | City/State/Zipcode | Phone Number | | Organization | | | | + + + + + | [address] | [address] | [place] | [phone] | | [facility] | | [address] | | | - LABORATORY | | | | + + + + + | [facility] | [address] | [place] | | | [facility] | | [address] | | | - LABORATORY | [...] | | | n III | Performed: Tok | | [facility] | | | Antigen | [facility] | | MEDICAL | | | | [place], [address] , | | CENTER - | | | | [place] [address] | | LABORATORY | | | | CLIA: [id number] | | | | + + + + + + + + | Specimen | + + | | + + + + + + + | Performing | Address | City/State/Zipcode | Phone Number | | Organization | | | | + + + + + | [facility] | [address] | [place], [place] | [phone] | | [facility] | | [address] | | | - LABORATORY | | | | + + + + + | [facility] | [address] | [place], [place] | | | [facility] | | [facility], [facility] | | | - [...] [facility] | | | Time, | Performed: Tok | | [facility] | | | Control | [facility] | | MEDICAL | | | | Center, [address] , | | CENTER - | | | | [place] [address] | | LABORATORY | | | | CLIA: [id number] | | | | + + + + + + + + | Specimen | + + | | + + + + + + + | Performing | Address | City/State/Zipcode | Phone Number | | Organization | | | | + + + + + | [facility] | [address] | [place], [place] | [phone] | | [facility] | | [address] | | | - LABORATORY | | | | + + + + + | [facility] | [address] | [place], [place] | | | [facility] | | [facility], [facility] | | | - [...] [address], | | | | | | [place] [address] | | | | | | CLIA: [id number] | | | | + + + + + + + + | Specimen | + + | | + + + + + + + | Performing | Address | City/State/Zipcode | Phone Number | | Organization | | | | + + + + + | [facility] | [address] | [place] | [phone] | | [facility] | | [address] | | | - LABORATORY | | | | + + + + + | [facility] | [address] | [place] | | | [facility] | | [address], [facility] | | | - [...] | | | N ACTIVITY | Performed: Tok | | [facility] | | | | [facility] | | MEDICAL | | | | Center, [address], | | CENTER - | | | | [place] [address] | | LABORATORY | | | | [place]: [id number] | | | | + + + + + + + + | Specimen | + + | | + + + + + + + | Performing | Address | City/State/Zipcode | Phone Number | | Organization | | | | + + + + + | [facility] | [address] | [place], [place] | [phone] | | [facility] | | [address] | | | - LABORATORY | | | | + + + + + | [facility] | [address] | [place], [place] | | | [facility] | | [address] | | | - LABORATORY | [...] | | | ORAL ANTICOAGULATION | | [facility] | | | | RANGE | | [...] [address] | [place] | [phone] | | [facility] | | [address] | | | - LABORATORY | | | | + + + + + | [facility] | [address] | [place], [place] | | | [facility] | | [address], [facility] | | | - [...] + | [address] [facility] | [address] | [place], [place] | [phone] | | [facility] | | [address] | | | - LABORATORY | | | | + + + + + | [facility] | [address] | [place], [place] | | | [facility] | | [address] [place] [address] | | | - LABORATORY | | [...] Mean Value: 29.0 | seconds | [facility] | | | | seconds | | [...] + | [facility] | [address] | [place] | [phone] | | [facility] | | [address] | | | - LABORATORY | | | | + + + + + | [facility] [facility] | [address] | [place] | | | [facility] | | [address], [facility] | | | - [...] + | [facility] | [address] | [place] | [phone] | | [facility] | | [address] | | | - LABORATORY | | | | + + + + + | [facility] | [address] | [place], [place] | | | [facility] | | [address], [facility] | | | - [...] [address] | [place] | [phone] | | [facility] | | [address] | | | - LABORATORY | | | | + + + + + | [address] [facility] | [address] | [place] | | | [facility] | | [address] | | | - LABORATORY | [...] [address] | [place] | [phone] | | [facility] | | [address] | | | - LABORATORY | | | | + + + + + | [facility] [facility] | [address] | [place] | | | [facility] | | [email or web address] | | | - LABORATORY | | | | + + + + + documented in this encounter Visit Diagnoses Not on filedocumented in this encounter"
--- OUTSIDE RECORDS SUMMARY | ~2019-12-28 | XMS | Encounter Summary ---
Demographics + + + | Address | [address] | | | [place] [address] | + + + | Home Phone [...] Team Providers + +------+ + | Care Microfilm Mounter Name | Role | Phone | + +------+ + | Mynor Kam MD | PCP | | + +------+ + Encounter Details +--------+ + + + + | Date | Type | Department | Care Team | Description | +--------+ + + + + | 06/26/ | Orders Only | [facility] | Matt, | | | 2019 | | PULMONOLOGY [address] | [address], | | | | | [address] | [address] | | | | | [place], [place] | [place], | | | | | [address] | [place] [address] | | | | | [phone] | [phone] | | | | | | | [...] [place] | | | | | | [place] [address] | | | | | | [phone] | | | | | | | | +--------+---------+ + + + documented as of this encounter Visit Diagnoses Not on filedocumented in this encounter"
--- OUTSIDE RECORDS SUMMARY | ~2019-12-28 | XMS | Encounter Summary ---
Demographics + + + | Address | [address] | | | [place] [address] | + + + | Home Phone [...] Providers + +------+ + | Care Grain Cleaner And Transfer Operator Name | Role | Phone | [...] | | | | [place] | [phone] | | | | | [address] | | | | | | [phone] | | | +--------+ + + + [...] | | | | | [place] [address] | | | | | | [phone] | | | | | | | | +--------+---------+ + + + documented as of this encounter Visit Diagnoses Not on filedocumented in this encounter"
--- OUTSIDE RECORDS SUMMARY | ~2019-12-28 | XMS | Encounter Summary ---
Demographics + + + | Address | [address] | | | [place] [address] | + + + | Home Phone [...] Team Providers + +------+ + | Care Counter Sales Person Name | Role | Phone | + +------+ + | Mynor Kam MD | PCP | | + +------+ + Encounter Details +--------+ + + + + | Date | Type | Department | Care Team | Description | +--------+ + + + + | 06/11/ | Orders Only | [facility] | Matt, | | | 2016 | | PULMONOLOGY [address] | [address], | | | | | [address] | [address] | | | | | [place], [place] | [address] [place], | | | | | [address] | [place] [address] | | | | | [phone] | [phone] | | | | | | | [...] STOUT | | | | | | [address] | | | | | | [place] [address] | | | | | | [phone] | | | | | | | | +--------+---------+ + + + documented as of this encounter Visit Diagnoses Not on filedocumented in this encounter"
--- OUTSIDE RECORDS SUMMARY | ~2019-12-28 | XMS | Encounter Summary ---
Demographics + + + | Address | [address] | | | [place] [address] | + + + | Home Phone [...] Team Providers + +------+ + | Care Art History Instructor Name | Role | Phone | [...] + + | 10/04/ | Telephone | [facility] | Elaine Andrews, | Appointment | | 2020 | | NEUROLOGY [address] | [address] | (schedule) | | | | [address] | [address] | | | | | [place], [place] | [place] [address] | | | | | [address] | [phone] | | | | | [phone] | | | +--------+ + + + [...] transfer the call to a ainsley lloyd paraffin machine operator was caller made aware that if [...] | | | | | [place] [address] | | | | | | [phone] | | | | | | | | +--------+---------+ + + + documented as of this encounter Visit Diagnoses Not on filedocumented in this encounter"
--- OUTSIDE RECORDS SUMMARY | ~2019-12-28 | XMS | Encounter Summary ---
Demographics + + + | Address | [address] | | | [place] [address] | + + + | Home Phone [...] Providers + +------+ + | Care Home Lending Officer Name | Role | Phone | [...] + + | 10/18/ | Telephone | [facility] | Elaine Andrews, | Appointment | | 2020 | | NEUROLOGY [address] | [address] | | | | | [address] | [address] | | | | | [place], [place] | [place] [address] | | | | | [address] | [phone] | | | | | [phone] | | | +--------+ + + + [...] - 10/19/2019 10:44 AM Bry, is calling [facility] Appointment and would like a call back. Additional Call Details: [facility] 10/05 No Show/Virtual Visit Appointment. Can be reached at Home Number list in Chart Stated she will be available for calls in about 2 ho urs. If this is a symptom based call, was patient offered triage? Not Applicable If this is a symptom based call and you were unable to immediately transfer the call to a ainsley lloyd fly rail operator was caller made aware that if [...] D | | | | | | [place] [address] | | | | | | [phone] | | | | | | | | +--------+---------+ + + + documented as of this encounter Visit Diagnoses Not on filedocumented in this encounter"
--- OUTSIDE RECORDS SUMMARY | ~2019-12-28 | XMS | Encounter Summary ---
Demographics + + + | Address | [address] | | | [place] [address] | + + + | Home Phone [...] Team Providers + +------+ + | Care Underground Heavy Equipment Operator Name | Role | Phone | + +------+ + | Mynor Kam MD | PCP | | + +------+ + Encounter Details +--------+ + + + + | Date | Type | Department | Care Team | Description | +--------+ + + + + | 06/15/ | Orders Only | [facility] | Matt, | | | 2013 | | PULMONOLOGY [address] | [address] Arora, | | | | | [address] | [address] | | | | | [place], [place] | [address] [place], | | | | | [address] | [place] [address] | | | | | [phone] | [phone] | | | | | | | [...] [address] | | | | | | [place] [address] | | | | | | [phone] | | | | | | | | +--------+---------+ + + + documented as of this encounter Visit Diagnoses Not on filedocumented in this encounter"
--- OUTSIDE RECORDS SUMMARY | ~2019-12-28 | XMS | Encounter Summary ---
Demographics + + + | Address | [address] | | | [place] [address] | + + + | Home Phone [...] + + + | Author | [facility] | | | and [place] | + + + | Organization | [facility] | | | and [...] Team Providers + +------+ + | Care Refuse And Recycling Worker Name | Role | Phone | + +------+ + PCP | Unavailable | + +------+ + Encounter Details +--------+ + + + + | Date | Type | Department | Care Team | Description | +--------+ + + + + | 07/19/ | Hospital | [facility] | Conversion | Pain | | 2015 | Encounter | CONVERSION [address] | Transaction, | | | | | [address] | Provider Unknown | | | | | [place], [place] | [phone] | | | | | [address] | (Fax) | | | | | [phone] | | | +--------+ + + + [...] D | | | | | | [place] [address] | | | | | | [phone] | | | | | | | [...]
--- OUTSIDE RECORDS SUMMARY | ~2019-12-28 | XMS | Encounter Summary ---
Demographics + + + | Address | [address] | | | [place] [address] | + + + | Home Phone | | + + + | Preferred Language | Unknown | + + + | Marital Status | | + + + | Jew Affiliation | Unknown | + + + | Race | White | + + + | Ethnic Group | Not or | + + + Author + + + | Author | [facility] | | | and [place] | + + + | Organization | [facility] | | [...] Team Providers + +------+ + | Care Motor Carrier Inspector Name | Role | Phone | + +------+ + | Mynor Kam MD | PCP | | + +------+ + Encounter Details +--------+ + + + + | Date | Type | Department | Care Team | Description | +--------+ + + + + | 06/15/ | Orders Only | [facility] | Matt, | | | 2013 | | PULMONOLOGY [address] | [address]ora, | | | | | [address] | [address] | | | | | [place], [place] | [address] [place], | | | | | [address] | [place] [address] | | | | | [phone] | [phone] | | | | | | | [...] [place] | | | | | | [place] [address] | | | | | | [phone] | | | | | | | | +--------+---------+ + + + documented as of this encounter Visit Diagnoses Not on filedocumented in this encounter"
--- OUTSIDE RECORDS SUMMARY | ~2019-12-28 | XMS | Encounter Summary ---
Demographics + + + | Address | [address] | | | [place] [address] | + + + | Home Phone [...] Team Providers + +------+ + | Care Patternmaker Apprentice Metal Name | Role | Phone | + +------+ + | Mynor Kam MD | PCP | | + +------+ + Encounter Details +--------+ + + + + | Date | Type | Department | Care Team | Description | +--------+ + + + + | 12/27/ | Telephone | [facility] | Pam Jeffries RN | | | 2020 | | PULMONOLOGY [address] | | | | | | [address] | | | | | | [place] | | | | | | [address] | | | | | | [phone] | | | +--------+ + + + [...] Gutierrez MD Pulmonary and Critical Care Medicine [facility] [address], [place] [address] [place] [address] Office Number: [phone] elephone Encounter - Pam Jeffries RN - 12/28/2019 8:37 AM PDTJenni called with complaints of fevers . Chills, shortness of breath, cough, loss of smell, nausea, low oxygen saturations (87%) an d high heart rate, (95), she is wanting medication prescribed. She does not [facility] to go [facility] knows she does not have covid. [...] | | | | | [place] [address] | | | | | | [phone] | | | | | | | | +--------+---------+ + + + documented as of this encounter Visit Diagnoses Not on filedocumented in this encounter"
--- OUTSIDE RECORDS SUMMARY | ~2019-12-28 | XMS | Encounter Summary ---
Demographics + + + | Address | [address] | | | [place] [address] | + + + | Home Phone [...] Team Providers + +------+ + | Care Excel Developer Name | Role | Phone | + +------+ + | Mynor Kam MD | PCP | | + +------+ + Encounter Details +--------+ + + + + | Date | Type | Department | Care Team | Description | +--------+ + + + + | 07/22/ | Telephone | [facility] | Enid Kaye | | | 2020 | | NEUROLOGY [address] | MD Pasquale [address] | | | | | [address] | [address] | | | | | [place], [place] | [place] [address] | | | | | [address] | [phone] | | | | | [phone] | | | +--------+ + + + [...] [address] | | | | | | [place] [address] | | | | | | [phone] | | | | | | | | +--------+---------+ + + + documented as of this encounter Visit Diagnoses Not on filedocumented in this encounter"
--- OUTSIDE RECORDS SUMMARY | ~2019-12-28 | XMS | Encounter Summary ---
Demographics + + + | Address | [address] | | | [place] [address] | + + + | Home Phone [...] + + | Author | [facility] | + + + | Organization | [facility] | + + + | Address | [...] Team Providers + +------+ + | Care Early Years Teacher Name | Role | Phone | + +------+ + | Erlinda Oneal PA-C | PCP | | + +------+ + Encounter Details +--------+ + + + + | Date | Type | Department | Care Team | Description | +--------+ + + + + | 11/11/ | Outside | Neurophysiology | Dmitri, | | | 2015 | Referral | EEG at [facility] [address] | [address] | | | | Order | [address] | [place] | | | | | [facility] | [place] [address] | | | | | [place], [facility] Floor | [phone] | | | | | [place], [place] | | | | | | [address] | | | | | | [phone] | | | +--------+ + + + [...] 1965 Medical | | | Record Number: [id number] Date of Test: 11/11/2014 Place of Service: | | | [facility] Department: EEG [facility] - [id number] SLEEP DEPRIVED | | | EEG Indication: Ms. Ariaza is a 49 year old woman with [...] attenuates with eye opening. There are frequent xkpdj-ckb-gfjx | | | discharges occurring at 2 Hz with a broad generalized field, though | | | consistently with a F3-C3-P3 lead-in. Dqava-mll-cbpi discharges | | | generally have no clinical correlate. Photic stimulation results in a | | | symmetric photic driving response. At 20 Hz flash frequency, there | | | is a 5 second run of alffn-fkw-crzn discharges, initially at 2 Hz | | [...] drowsy routine EEG. | | | Frequent yvbul-tua-lsbn discharges with a generalized field (though | | | consistently with a left awkqzm-omdmnb-hbbnuqpj lead-in), with | | | activation during hyperventilation and photic stimulation, in the | | | context of clinical history is most consistent with a primary | | | generalized epilepsy though focal onset with rapid bilateral | | | synchrony cannot be ruled out entirely. There was one possible | | | clinical event of subtle myoclonus associated with zrilr-ptm-urze | | | discharges during photic stimulation though video quality was poor. | | | Electronically signed on 11/11/2014 at 10:34 AM SCOTT CAMARILLO | | | . 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
--- OUTSIDE RECORDS SUMMARY | ~2019-12-28 | XMS | Encounter Summary ---
Demographics + + + | Address | [address] | | | [place] [address] | + + + | Home Phone [...] + + + | Author | [facility] | | | and [place] | + + + | Organization | [facility] | | | [...] Providers + +------+ + | Care Medical Education Specialist Name | Role | Phone | + +------+ + | Mynor Kam MD | PCP | | + +------+ + Encounter Details +--------+ + + + + | Date | Type | Department | Care Team | Description | +--------+ + + + + | 10/29/ | Orders Only | [facility] | Elaine Andrews, | | | 2019 | | NEUROLOGY [address] | [address] | | | | | [address] | [address] | | | | | [place], [place] | [place] [address] | | | | | [address] | [phone] | | | | | [phone] | | | +--------+ + + + [...] | | | | | [place] [address] | | | | | | [phone] | | | | | | | | +--------+---------+ + + + documented as of this encounter Visit Diagnoses Not on filedocumented in this encounter"
--- OUTSIDE RECORDS SUMMARY | ~2019-12-28 | XMS | Encounter Summary ---
Demographics + + + | Address | [address] | | | [place] [address] | + + + | Home Phone | | + + + | Preferred Language | Unknown | + + + | Marital Status | | + + + | Zoroastrianism Affiliation | Unknown | + + + [...] Team Providers + +------+ + | Care Mortgage Processor Name | Role | Phone | + [...] | | | | | Neisha Cueto [place], | [place], [place] | | | | | [place] [address] | [address] | | | | | [phone] | | | +--------+ + + + [...] see her in the Hepatology clinic for [facility] er evaluation and management. elephone Encounter - Ayana House RN - 08/02/2019 9:35 AM PDTLiver Transp lant Referral Nurse Review: Phase Medical Review MD: Routing to Dr. Thorne to review if patient is a candidate for liver transplant evalua tion. Pre Strategic Account Executive, if a candidate: 1. Push the CT wwo scan from [facility] 06/05/19 New Referral, Notes State: Referred by: OSCAR Ott Age: 53 years old Na MELD: 8 Serum Na: 140 Diagnosis: ODELL, s/p TIPS, Gastric varices, apixaban for thrombus. BMI: 48.42 (5'6", 300 lbs) Creatinine: 0.63 Diabetic: Yes, On Metformin: No , On Dialysis: No, Loss Prevention Consultant: Dialysis Unit: Colonoscopy done: Yes 05/2019 Other [...] 12. What is your preferred spoken language: Algerian 13. What is your preferred written language: Algerian 14. Are you on dialysis: No 15. [...] in inadequate post-transplant care. IV. Reference: [facility] Liver Transplant Program Protocol Handbook, page 25-26. documented in this encounter Plan of Treatment Not on filedocumented as of this encounter Visit Diagnoses Not on filedocumented in this encounter
--- OUTSIDE RECORDS SUMMARY | ~2019-12-28 | XMS | Encounter Summary ---
Demographics + + + | Address | [address] | | | [place] [address] | + + + | Home Phone [...] Team Providers + +------+ + | Care Stiff Straw Hat Washer Name | Role | Phone | [...] | | | | | classified, | [place], | [address] | | | | | Memory loss | [place] | Phone: | | | | | | [address] | [phone] | | | | | | Phone: | Fax: | | | | | | [phone] | [phone] | | | | | | Fax: | | | | | | | [phone] | | +--------+--------+ + + + + Encounter Details +--------+---------+ + + + | Date | Type | Department | Care Team | Description | +--------+---------+ + + + | 06/01/ | Office | [facility] | Elaine Andrews, | Chronic migraine | | 2020 | Visit | NEUROLOGY [address] | [address] | (Primary Dx); | | | | [address] | [address] | Seizure disorder | | | | [place], [place] | [place] [address] | ([facility]); Driving | | | | [address] | [phone] | safety issue; Memory | | | | [phone] | | loss | +--------+---------+ + + [...] H1N1 pneumonia 2013, A RDS, seen at [facility] following complications and being comatose. Also has h/o in tractable migraines. She reports h/o seizures as a child - age 9 - grandmal seizures - seen at [facility] on phenobarbital for [address] years[address] by Dr De Jesus at [facility] at age 15. Did not dejuan nue medications. She had one grandmal after of her first daughter - 31 years ago. Was tired after a [employer] bus drive from [place] to [place]. She has another perioperative seizure a few years ago (after cholecystectomy). She reports 2 grandmal unwitnessed seizures in 2015 - at home - fell and loss consciousness - cracked a glass door. Then went to bed and lost consciousness. Not sure how long she was out. No urinary incontinence. Had a sleep deprived EEG- 11/11/14 - done at [facility] at [place] and read by Linh Fernandez ([facility]). "Abnormal awake and drowsy EEG - frequent spike and wave discharges with a generalized fiel d though consistently with a left apwbhc-hbeiuj-hhxeuvbq lead-in, with activation during hyp erventilation and [...] poor" Has had MRI brain done at [facility] in June 2015 - uploaded in [facility] including report. Normal structure. She complains of short-term memory loss since she was hospitalized at [facility] in 2013. F eels it [...] a shower and went to the kitchen. [place] her whole body shake and she fell [...] of what happened. EMS took her to [facility]. She c/o feeling unclear in [...] [address]OUT | | | | | [address] | | | | | | [place] [address] | | | | | | [phone] | | | | | | | [...]
--- OUTSIDE RECORDS SUMMARY | ~2019-12-28 | XMS | Encounter Summary ---
Demographics + + + | Address | [address] | | | [place] [address] | + + + | Home Phone | | + + + | Preferred Language | Unknown | + + + | Marital Status | | + + + | Zoroastrian Affiliation | Unknown | + + + | Race | White | + + + | Ethnic Group | Not or | + + + Author + + + | Author | [facility] | | | and [place] | + + + | Organization | [facility] | | | and [...] Team Providers + +------+ + | Care Tire And Lube Technician Name | Role | Phone | + +------+ + PCP | Unavailable | + +------+ + Encounter Details +--------+ + + + + | Date | Type | Department | Care Team | Description | +--------+ + + + + | 02/26/ | Hospital | [facility] | Fabián Salas | | | 2010 - | Encounter | [facility] | MD Miller [address] | | | | | CENTER [address] | [address] | | | 03/06/ | | [place] | [place] [address] | | | 2010 | | [address] | [phone] | | | | | [phone] | | | +--------+ + + + [...] D | | | | | | [facility] [place] [address] | | | | | | [phone] | | | | | | | | +--------+---------+ + + + documented as of this encounter Visit Diagnoses Not on filedocumented in this encounter"
--- OUTSIDE RECORDS SUMMARY | ~2019-12-28 | XMS | Encounter Summary ---
Demographics + + + | Address | [address] | | | [place] [address] | + + + | Home Phone [...] Team Providers + +------+ + | Care Deputy County Clerk Name | Role | Phone | [...] | | | | | classified, | [place], | [address] | | | | | Memory loss | [place] | Phone: | | | | | | [address] | [phone] | | | | | | Phone: | Fax: | | | | | | [phone] | [phone] | | | | | | Fax: | | | | | | | [phone] | | +--------+--------+ + + + + Encounter Details +--------+---------+ + + + | Date | Type | Department | Care Team | Description | +--------+---------+ + + + | 06/01/ | Office | [facility] | Elaine Andrews, | Chronic migraine | | 2020 | Visit | NEUROLOGY [address] | [address] | (Primary Dx); | | | | [address] | [address] | Seizure disorder | | | | [place], [place] | [place] [address] | ([facility]); Driving | | | | [address] | [phone] | safety issue; Memory | | | | [phone] | | loss | +--------+---------+ + + [...] H1N1 pneumonia 2013, A RDS, seen at [facility] following complications and being comatose. Also has h/o in tractable migraines. She reports h/o seizures as a child - age 9 - grandmal seizures - seen at [facility] on phenobarbital for [address] De Jesus at [facility] at age 15. Did not dejuan nue medications. She had one grandmal after of her first daughter - 31 years ago. Was tired after a [employer] bus drive from [place] to [place]. She has another perioperative seizure a few years ago (after cholecystectomy). She reports 2 grandmal unwitnessed seizures in 2015 - at home - fell and loss consciousness - cracked a glass door. Then went to bed and lost consciousness. Not sure how long she was out. No urinary incontinence. Had a sleep deprived EEG- 11/11/14 - done at [facility] at [place] and read by Linh Fernandez ([facility]). "Abnormal awake and drowsy EEG - frequent spike and wave discharges with a generalized fiel d though consistently with a left dzndfz-vwtsvy-fqnupwdi lead-in, with activation during hyp erventilation and [...] poor" Has had MRI brain done at [facility] in June 2015 - uploaded in [facility] including report. Normal structure. She complains of short-term memory loss since she was hospitalized at [facility] in 2013. F eels it [...] a shower and went to the kitchen. [place] her whole body shake and she fell [...] of what happened. EMS took her to [facility]. She c/o feeling unclear in her head. [...] STOUT | | | | | | [employer] [address] | | | | | | [place] [address] | | | | | | [phone] | | | | | | | [...]
--- OUTSIDE RECORDS SUMMARY | ~2019-12-28 | XMS | Encounter Summary ---
Demographics + + + | Address | [address] | | | [place] [address] | + + + | Home Phone [...] Providers + +------+ + | Care Dairy Equipment Installer Name | Role | Phone | [...] | | | | [place] | [phone] | | | | | [address] | | | | | | [phone] | | | +--------+ + + + [...] | | | | | [place] [address] | | | | | | [phone] | | | | | | | | +--------+---------+ + + + documented as of this encounter Visit Diagnoses Not on filedocumented in this encounter"
--- OUTSIDE RECORDS SUMMARY | ~2019-12-28 | XMS | Encounter Summary ---
Demographics + + + | Address | [address] | | | [place] [address] | + + + | Home Phone [...] Team Providers + +------+ + | Care Film Projector Operator Name | Role | Phone | + +------+ + | Mynor Kam MD | PCP | | + +------+ + Encounter Details +--------+ + + + + | Date | Type | Department | Care Team | Description | +--------+ + + + + | 06/26/ | Orders Only | [facility] | Matt, | | | 2017 | | PULMONOLOGY [address] | [address], | | | | | [address] | [address] | | | | | [place], [place] | [address] [place], | | | | | [address] | [place] [address] | | | | | [phone] | [phone] | | | | | | | [...] [place] | | | | | | [place] [address] | | | | | | [phone] | | | | | | | | +--------+---------+ + + + documented as of this encounter Visit Diagnoses Not on filedocumented in this encounter"
--- OUTSIDE RECORDS SUMMARY | ~2019-12-28 | XMS | Encounter Summary ---
Demographics + + + | Address | [address] | | | [place] [address] | + + + | Home Phone [...] Team Providers + +------+ + | Care Monkey Trainer Name | Role | Phone | + [...] + + | 02/26/ | Telephone | [facility] | DeandrezayeulaliayoniElaine, | Follow-up | | 2019 | | NEUROLOGY [address] | MD [address] | (Reschedule ) | | | | [address] | [address] | | | | | [place], [place] | [place] [address] | | | | | [address] | [phone] | | | | | [phone] | | | +--------+ + + + [...] Miscellaneous Notes Telephone Encounter - Adrian Khan, Dental Mechanic - 02/26/2019 9:47 AM PSTCalled bobby Gilliam back at [phone] and she wanted to reschedule pts appt to have doctors rupali ts all in one day for less travel. elephone Encounter - Rupa Irene - 02/26/2019 8:22 AM PSTChristina, is calling regarding Follow-up (Reschedule ) and would like a call back. Additional Call Details: Calling to reschedule appointment 03/08. Please call her back at [phone] If this is a symptom based call, was patient offered triage? Not Applicable If this is a symptom based call and you were unable to immediately transfer the call to a ainsley lloyd adjuster and inspector was caller made aware that if [...] D | | | | | | [facility] [place] [address] | | | | | | [phone] | | | | | | | | +--------+---------+ + + + documented as of this encounter Visit Diagnoses Not on filedocumented in this encounter"
--- OUTSIDE RECORDS SUMMARY | ~2019-12-28 | XMS | Encounter Summary ---
Demographics + + + | Address | [address] | | | [place] [address] | + + + | Home Phone [...] Providers + +------+ + | Care Manager Business Systems Name | Role | Phone | + [...] | | | | [place] | [phone] | | | | | [address] | | | | | | [phone] | | | +--------+ + + + [...] | | | | | [place] [address] | | | | | | [phone] | | | | | | | | +--------+---------+ + + + documented as of this encounter Visit Diagnoses Not on filedocumented in this encounter"
--- OUTSIDE RECORDS SUMMARY | ~2019-12-28 | XMS | Clinical Summary ---
Demographics + + + | Address | [address] | | | [place] [address] | + + + | Home Phone [...] Team Providers + +------+ + | Care Pest Management Supervisor Name | Role | Phone | + +------+ + | Erlinda Oneal PA-C | PCP | | + +------+ + Source Comments FAB is fully live on both [facility] and [facility] Allergies Not on File Medications Not on [...] + + + Last Filed Vital Signs Not on file Plan of Treatment + + + + + | Health Maintenance | Due Date | Last | Comments | | | | Done | | + + + + + | Influenza (Flu) | | | | | vaccination (#1) | 0 | | | + + + + + | Pneumococcal | Completed | 05/06/19 | | | vaccination | | 14 | | + + [...] + +--------+ | MEDICARE | MEDICA | [id number] | 10/06/19 | [phone] | [address] | [address] | | | RE A & | | [address] | [address] | [phone] | re | | | B | | sent | | [place] | | | | | | | | [phone] | | + +--------+ +--------+ + +--------+ | MEDICAID [place] | OHP | [id number] | | [phone] | [address] | [address] | | | PLUS | | [phone] | [phone] | [phone] | id | | | OPEN | | esent | | [place], [place] | | | | CARD | | | | [phone] | | + +--------+ +--------+ + +--------+ [...] | | [address] | | [address] | meena/Greg | | 1966 | [phone] | [place] [address] | | | fausto | | | 3 (Home) | | + +--------+ +--------+ + +"
--- OUTSIDE RECORDS SUMMARY | ~2019-12-28 | XMS | Encounter Summary ---
Demographics + + + | Address | [address] | | | [place] [address] | + + + | Home Phone [...] | Author | [facility] | | | and [place] | + + + | Organization | [facility] [...] Team Providers + +------+ + | Care Accounting Support Specialist Name | Role | Phone | [...] | | | | [place] | [phone] | | | | | [address] | | | | | | [phone] | | | +--------+ + + + [...] | | | | | [place] [address] | | | | | | [phone] | | | | | | | | +--------+---------+ + + + documented as of this encounter Visit Diagnoses Not on filedocumented in this encounter"
--- OUTSIDE RECORDS SUMMARY | ~2019-12-28 | XMS | Encounter Summary ---
Demographics + + + | Address | [address] | | | [place] [address] | + + + | Home Phone | | + + + | Preferred Language | Unknown | + + + | Marital Status | | + + + | Zoroastrian Affiliation | Unknown | + + + | Race | White | + + + | Ethnic Group | Not or | + + + Author + + + | Author | [facility] | | | and [place] | + + + | Organization | [facility] | | [...] Team Providers + +------+ + | Care Strand Buncher Fine Wire Name | Role | Phone | + [...] Provider Unknown | | | | | [place], [place] | [phone] | | | | | [address] | | | | | | [phone] | | | +--------+ + + + [...] D | | | | | | [place] [address] | | | | | | [phone] | | | | | | | [...]
--- OUTSIDE RECORDS SUMMARY | ~2019-12-28 | XMS | Encounter Summary ---
Demographics + + + | Address | [address] | | | [place] [address] | + + + | Home Phone [...] Team Providers + +------+ + | Care Tenant Relations Coordinator Name | Role | Phone | [...] Provider Unknown | | | | | [place], [place] | [phone] | | | | | [address] | | | | | | [phone] | | | +--------+ + + + [...] D | | | | | | [place] [address] | | | | | | [phone] | | | | | | | [...]
--- OUTSIDE RECORDS SUMMARY | ~2019-12-28 | XMS | Encounter Summary ---
Demographics + + + | Address | [address] | | | [place] [address] | + + + | Home Phone [...] Team Providers + +------+ + | Care Assistant Clinical Nurse Manager Name | Role | Phone | + +------+ + | Mynor Kam MD | PCP | | + +------+ + Encounter Details +--------+ + + + + | Date | Type | Department | Care Team | Description | +--------+ + + + + | 06/02/ | Orders Only | [facility] | Matt, | | | 2019 | | PULMONOLOGY [address] | [address], | | | | | [address] | [address] | | | | | [place], [place] | [address] [place], | | | | | [address] | [place] [address] | | | | | [phone] | [phone] | | | | | | | [...] [place] | | | | | | [place] [address] | | | | | | [phone] | | | | | | | | +--------+---------+ + + + documented as of this encounter Visit Diagnoses Not on filedocumented in this encounter"
--- OUTSIDE RECORDS SUMMARY | ~2019-12-28 | XMS | Encounter Summary ---
Demographics + + + | Address | [address] | | | [place] [address] | + + + | Home Phone [...] + + | Author | [facility] | + + + | Organization | [facility] | + + + | [...] Team Providers + +------+ + | Care Garage Worker Name | Role | Phone | [...] | | | | | Neisha Cueto [place], | [place], [place] | | | | | [place] [address] | [address] | | | | | [phone] | | | +--------+ + + + [...] see her in the Hepatology clinic for [facility] er evaluation and management. elephone Encounter - Ayana House RN - 08/02/2019 9:35 AM PDTLiver Transp lant Referral Nurse Review: Phase Medical Review MD: Routing to Dr. Thorne to review if patient is a candidate for liver transplant evalua tion. Pre Script Supervisor, if a candidate: 1. Push the CT wwo scan from [facility] 06/05/19 New Referral, Notes State: Referred by: OSCAR Ott Age: 53 years old Na MELD: 8 Serum Na: 140 Diagnosis: ODELL, s/p TIPS, Gastric varices, apixaban for thrombus. BMI: 48.42 (5'6", 300 lbs) Creatinine: 0.63 Diabetic: Yes, On Metformin: No , On Dialysis: No, Collet Gluer: Dialysis Unit: Colonoscopy done: Yes 05/2019 Other [...] 12. What is your preferred spoken language: Gambian 13. What is your preferred written language: Gambian 14. Are you on dialysis: No 15. [...] result in inadequate post-transplant care. IV. Reference: [facility] Liver Transplant Program Protocol Handbook, page 25-26. documented in this encounter Plan of Treatment Not on filedocumented as of this encounter Visit Diagnoses Not on filedocumented in this encounter
--- OUTSIDE RECORDS SUMMARY | ~2019-12-28 | XMS | Clinical Summary ---
Demographics + + + | Address | [address] | | | [place] [address] | + + + | Home Phone [...] Providers + +------+ + | Care Wet Process Miller Name | Role | Phone | + [...] | Pulmonology | Pam Jeffries RN | | | 2020 | | | | | +--------+ + + + + | 12/21/ | Virtual | Neurology | Elaine Andrews, | Seizure disorder | | 2019 | Office | | MD | ([facility]) (Primary Dx); | | | Visit [...] Elaine Andrews, | Spells of decreased | 2019 | Office | | MD [...] | 2019 | | | MD | (schedule) | +--------+ + + + + from [...] | | | | | | [place] [address] | | | | | | [phone] | | | | | | | [...] +--------+ +---------+--------+ | MEDICARE | MEDICA | [id number] | 10/06/19 | [phone] | | Medica | | | RE | | 16-Pre | 5 | | re | | | PART A | | sent | | | | | | AND B | | | | | | + +--------+ +--------+ +---------+--------+ | [employer] | MODA | [id number] | 11/10/19 | [phone] | | Medica | | MEDICAID HMO [...] Person | Self | [birth year] | | | Mary | al/Fam | | 1966 | [phone] | [place] | | | [place] | | | 3 (Home) | [address] | + +--------+ +--------+ + + | Gilma Araiza | Person | Self | [birth year] | | ST | | Mary | al/Fam | | 1966 | [phone] | [place] | | | [place] | | | 3 (Home) | [address] | + +--------+ +--------+ + + Advance Directives + + + + + | Type | Date Recorded | Patient | Explanation | | | | Ordnance Mechanic | | + + + + + | Power of | | | | | Brick Setter Operator | | | | + + + + + | Advance | | | | | Directive | | | | + + + + +
--- OUTSIDE RECORDS SUMMARY | ~2019-12-28 | XMS | Encounter Summary ---
Demographics + + + | Address | [address] | | | [place] [address] | + + + | Home Phone [...] Team Providers + +------+ + | Care Auto Body Worker Name | Role | Phone | + +------+ + | Mynor Kam MD | PCP | | + +------+ + Encounter Details +--------+ + + + + | Date | Type | Department | Care Team | Description | +--------+ + + + + | 07/22/ | Telephone | [facility] | Enid Kaye | | | 2020 | | NEUROLOGY [address] | MD Pasqu[address] | | | | | [address] | [address] | | | | | [place], [place] | [place] [address] | | | | | [address] | [phone] | | | | | [phone] | | | +--------+ + + + [...] Melton | | | | | | [place] [address] | | | | | | [phone] | | | | | | | | +--------+---------+ + + + documented as of this encounter Visit Diagnoses Not on filedocumented in this encounter"
--- OUTSIDE RECORDS SUMMARY | ~2019-12-28 | XMS | Encounter Summary ---
Demographics + + + | Address | [address] | | | [place] [address] | + + + | Home Phone [...] Team Providers + +------+ + | Care Marketing Director Name | Role | Phone | [...] Provider Unknown | | | | | [place], [place] | [phone] | | | | | [address] | | | | | | [phone] | | | +--------+ + + + [...] D | | | | | | [place] [address] | | | | | | [phone] | | | | | | | [...] | Procedure Note | + + | FoxErmais monae - 11/20/2018 1:53 PM PDT This is a non-reportable procedure | | without a radiologist report and isused for image storage only | + + documented in this encounter Visit Diagnoses + + | Diagnosis | + + | Pain Generalized pain | + + documented in this encounter"
--- OUTSIDE RECORDS SUMMARY | ~2019-12-28 | XMS | Encounter Summary ---
Demographics + + + | Address | [address] | | | [place] [address] | + + + | Home Phone [...] Team Providers + +------+ + | Care Photogravure Press Operator Name | Role | Phone | [...] | | | | [place] | [phone] | | | | | [address] | | | | | | [phone] | | | +--------+ + + + [...] | | | | | [place] [address] | | | | | | [phone] | | | | | | | | +--------+---------+ + + + documented as of this encounter Visit Diagnoses Not on filedocumented in this encounter"
--- OUTSIDE RECORDS SUMMARY | ~2019-12-28 | XMS | Encounter Summary ---
Demographics + + + | Address | [address] | | | [place] [address] | + + + | Home Phone [...] Providers + +------+ + | Care Inspector Cold Working Name | Role | Phone | + [...] + | 09/16/ | Telephone | [facility] | Matt, | Appointment | | 2020 | | PULMONOLOGY [address] | [address]ora, | | | | | [address] | [address] | | | | | [place], [place] | [address] [place], | | | | | [address] | [place] [address] | | | | | [phone] | [phone] | | | | | | | [...] - 09/17/2019 8:51 AM Bry, is calling [facility] Appointment and would like a call back. Additional Call Details: Patient would like a call back in regards to getting help/informa tion about the [employer] GINA for her 09/20 Appointment. Can be reached at Home Number list in Fal[place] nanda If this is a symptom based call, was patient offered triage? Not Applicable If this is a symptom based call and you were unable to immediately transfer the call to a ainsley lloyd latex thread machine operator was caller made aware that [...] D | | | | | | [place] [address] | | | | | | [phone] | | | | | | | | +--------+---------+ + + + documented as of this encounter Visit Diagnoses Not on filedocumented in this encounter"
--- OUTSIDE RECORDS SUMMARY | ~2019-12-28 | XMS | Encounter Summary ---
Demographics + + + | Address | [address] | | | [place] [address] | + + + | Home Phone [...] Team Providers + +------+ + | Care Bisque Finisher Name | Role | Phone | + +------+ + | Mynor Kam MD | PCP | | + +------+ + Encounter Details +--------+ + + + + | Date | Type | Department | Care Team | Description | +--------+ + + + + | 06/11/ | Orders Only | [facility] | Matt, | | | 2016 | | PULMONOLOGY [address] | Esperanza Arora, | | | | | [address] | [address] | | | | | [place], [place] | [address] [place], | | | | | [address] | [place] [address] | | | | | [phone] | [phone] | | | | | | | [...] Melton | | | | | | [place] [address] | | | | | | [phone] | | | | | | | | +--------+---------+ + + + documented as of this encounter Visit Diagnoses Not on filedocumented in this encounter"
--- OUTSIDE RECORDS SUMMARY | ~2019-12-28 | XMS | Encounter Summary ---
Demographics + + + | Address | [address] | | | [place] [address] | + + + | Home Phone [...] Providers + +------+ + | Care Surgical Coder Name | Role | Phone | + [...] | | | | [place] | [phone] | | | | | [address] | | | | | | [phone] | | | +--------+ + + + [...] | | | | | [place] [address] | | | | | | [phone] | | | | | | | | +--------+---------+ + + + documented as of this encounter Visit Diagnoses Not on filedocumented in this encounter"
--- OUTSIDE RECORDS SUMMARY | ~2019-12-28 | XMS | Encounter Summary ---
Demographics + + + | Address | [address] | | | [place] [address] | + + + | Home Phone [...] Team Providers + +------+ + | Care Mold Closer Name | Role | Phone | + +------+ + | Mynor Kam MD | PCP | | + +------+ + Encounter Details +--------+ + + + + | Date | Type | Department | Care Team | Description | +--------+ + + + + | 09/20/ | Virtual | [facility] | Matt, | Uncontrolled | | 2020 | Office | PULMONOLOGY [address] | Esperanza Arora, | moderate persistent | | | Visit | [address] | [address] | asthma (Primary Dx); | | | | [place], [place] | [place], | ARDS survivor; | | | | [address] | [place] [address] | Restrictive lung | | | | [phone] | [phone] | disease; Chronic | | | | [...] bidirectional video se ssion. Service was provided [id number] with the patient via interactive videoconferencing Time Based Coding Total time (in minutes) including non szwl-ke-awcl time (reviewing records, documentation, etc..) 30 You have chosen to receive care through the use of telemedicine. Telemedicine enables [facility] care providers at different locations to provide [...] COOPER and obesity, who was admitted to [facility] from 05/05/13 to 05/14/13 for acut e respiratory failure from ARDS due to H1N1 infection. Her course was long and difficult -celestine hodge eventually underwent a tracheostomy insertion by Dr Novoa (Lina), and then she was eventua lly moved to an acute Re[facility] [place] [facility] She reports abi t she had a horrible time here. After close to a week of staying in the facility, her trache ostomy tube managed to fall out and she suffered from hypoxemia with bilateral lung atelecta sis. She was brought to [facility] where they put her trach back. 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 [...] the past. S he has lived in [place] most of her life. She now lives in [place]. She lived in [place] for two years [...] Date Asthma Bronchitis DVT (deep venous thrombosis) ([facility]) in thigh; no longer on coumadin Dvt femoral (deep venous thrombosis) ([facility]) Epilepsy ([facility]) Fibromyalgia Fibromyalgia HX OTHER MEDICAL 05/04/2013 Acute [...] Procedure: TRACHEOSTOMY; Surgeon: Fabián Novoa MD; Location: [facility] MAIN OR; Service: ENT; Laterality: N/A; move [...] PCP for a referral t o the [facility]. 6. End stage liver [...] Gutierrez MD Pulmonary and Critical Care Medicine [facility] [address], [place] [address] documente d in this encounter Plan of Treatment +--------+---------+ + + + | Date | Type | Specialty | Care Team | Description | +--------+---------+ + + + | 03/22/ | Office | Neurology | Elaine Andrews, | | | 2019 | Visit | | MD [address] | | | | | | [address] | | | | | | [place] [address] | | | | | | [phone] | | | | | | | [...]
--- OUTSIDE RECORDS SUMMARY | ~2019-12-28 | XMS | Clinical Summary ---
Demographics + + + | Address | [address] | | | [place] [address] | + + + | Home Phone | | + + + | Preferred Language | Unknown | + + + | Marital Status | | + + + | Bahai Affiliation | Unknown | + + + | Race | White | + + + | Ethnic Group | Not or | + + + Author + + + | Author | [facility] | | | and [place] | + + + | Organization | [facility] | | [...] Providers + +------+ + | Care Director Database Name | Role | Phone | + [...] Office | | MD | ([facility]) (Primary Dx); | | | Visit [...] | | | | | | [place] [address] | | | | | | [phone] | | | | | | | [...] +--------+ +---------+--------+ | MEDICARE | MEDICA | [id number] | 10/06/19 | [phone] | | Medica | | | RE | | 16-Pre | 5 | | re | | | PART A | | sent | | | | | | AND B | | | | | | + +--------+ +--------+ +---------+--------+ | [employer]AN | MODA | [id number] | 11/10/19 | [phone] | | Medica | | MEDICAID HMO [...] [place] | | | 3 (Home) | [address] | + +--------+ +--------+ + + | Gilma Araiza | Person | Self | [birth year] | | ST | | Mary | al/Fam | | 1966 | [phone] | [place] | | | [place] | | | 3 (Home) | [address] | + +--------+ +--------+ + + Advance Directives + + + + + | Type | Date Recorded | Patient | Explanation | | | | Paper Twister Tender | | + + + + + | Power of | | | | | Computer Support Specialist | | | | + + + + + | Advance | | | | | Directive | | | | + + + + +
--- OUTSIDE RECORDS SUMMARY | ~2019-12-28 | XMS | Encounter Summary ---
Demographics + + + | Address | [address] | | | [place] [address] | + + + | Home Phone | | + + + | Preferred Language | Unknown | + + + | Marital Status | | + + + | Tenriism Affiliation [...] Team Providers + +------+ + | Care Rug Inspector Helper Name | Role | Phone | + +------+ + | Mynor Kam MD | PCP | | + +------+ + Encounter Details +--------+---------+ + + + | Date | Type | Department | Care Team | Description | +--------+---------+ + + + | 06/01/ | Office | [facility] | Matt, | Uncontrolled | | 2020 | Visit | PULMONOLOGY [address] | Esperanza Arora, | moderate persistent | | | | [address] | MD [address] | asthma (Primary Dx); | | | | [facility] [place] | [place], | ARDS survivor; | | | | [address] | [place] [address] | Restrictive lung | | | | [phone] | [phone] | disease; Chronic | | | | [...] COOPER and obesity, who was admitted [facility] to 05/14[facility]13 for acut e respiratory failure from ARDS due to H1N1 infection. Her course was long and difficult -sh e eventually underwent a tracheostomy insertion by Dr Bright Teixeira), and then she was eventua lly moved to an acute Rehab facility close to [place] ([facility]). She reports abi t she had a horrible time here. After close to a week of staying in the facility, her trache ostomy tube managed to fall out and she suffered from hypoxemia with bilateral lung atelecta sis. She was brought to [facility] where they put her trach [...] the past. S he has lived in [place] most of her life. She now lives in [place]. She lived in [place] for two years [...] venous thrombosis) ([facility]) in thigh; no longer on coumadin Dvt femoral (deep venous thrombosis) ([facility]) Epilepsy ([facility]) Fibromyalgia Fibromyalgia HX OTHER [...] Procedure: TRACHEOSTOMY; Surgeon: Fabián Novoa MD; Location: [facility]; Service: ENT; Laterality: N/A; [...] MD Pulmonary and Critical Care Medicine [facility] [place] [address] [address] NDAdomarisol melton in this encounter Plan of Treatment +--------+---------+ + + + | Date | Type | Specialty | Care Team | Description | +--------+---------+ + + + | 03/22/ | Office | Neurology | Elaine Andrews, | | 2019 | Visit | | MD [address] | | | | | | [address] | | | | | | [place] [address] | | | | | | [phone] | | | | | | | [...]
--- OUTSIDE RECORDS SUMMARY | ~2019-12-28 | XMS | Encounter Summary ---
Demographics + + + | Address | [address] | | | [place] [address] | + + + | Home Phone [...] Team Providers + +------+ + | Care Yard General Car Supervisor Name | Role | Phone | [...] Provider Unknown | | | | | [place], [place] | [phone] | | | | | [address] | | | | | | [phone] | | | +--------+ + + + [...] D | | | | | | [place] [address] | | | | | | [phone] | | | | | | | [...]
--- OUTSIDE RECORDS SUMMARY | ~2019-12-28 | XMS | Encounter Summary ---
Demographics + + + | Address | [address] | | | [place] [address] | + + + | Home Phone [...] Team Providers + +------+ + | Care Architectural Superintendent Name | Role | Phone | + +------+ + PCP | Unavailable | + +------+ + Encounter Details +--------+ + + + + | Date | Type | Department | Care Team | Description | +--------+ + + + + | 10/06/ | Hospital | [facility] | Conversion | Unknown cause of | | 2015 | Encounter | CONVERSION [address] | Transaction, | injury | | | | [address] | Provider Unknown | | | | | [place] | [phone] | | | | | [address] | | | | | | [phone] | | | +--------+ + + + [...] D | | | | | | [place] [address] | | | | | | [phone] | | | | | | | [...]
--- OUTSIDE RECORDS SUMMARY | ~2019-12-28 | XMS | Encounter Summary ---
Demographics + + + | Address | [address] | | | [place] [address] | + + + | Home Phone [...] Providers + +------+ + | Care Assistant Plant Controller Name | Role | Phone | + [...] | | | | [place] | [phone] | | | | | [address] | | | | | | [phone] | | | +--------+ + + + [...] | | | | | [place] [address] | | | | | | [phone] | | | | | | | | +--------+---------+ + + + documented as of this encounter Visit Diagnoses Not on filedocumented in this encounter"
--- OUTSIDE RECORDS SUMMARY | ~2019-12-28 | XMS | Encounter Summary ---
Demographics + + + | Address | [address] | | | [place] [address] | + + + | Home Phone [...] Team Providers + +------+ + | Care Room Service Manager Name | Role | Phone [...] | | | | [place] | [phone] | | | | | [address] | | | | | | [phone] | | | +--------+ + + + [...] | | | | | [place] [address] | | | | | | [phone] | | | | | | | | +--------+---------+ + + + documented as of this encounter Visit Diagnoses Not on filedocumented in this encounter"
--- OUTSIDE RECORDS SUMMARY | ~2019-12-28 | XMS | Clinical Summary ---
Demographics + + + | Address | [address] | | | [place] [address] | + + + | Home Phone [...] Team Providers + +------+ + | Care Reading Coach Name | Role | Phone | + +------+ + | Erlinda Oneal PA-C | PCP | | + +------+ + Source Comments FAB is fully live on both [facility] Ambulatory and [facility] InPatient.[facility] Allergies Not on File Medications Not on [...] + +--------+ | MEDICARE | MEDICA | [id number] | 10/06/19 | [phone] | [address] | Medica | | | RE A & | | 16-Pre | 1 | [phone] | re | | | B | | sent | | [place] | | | | | | | | [phone] | | + +--------+ +--------+ + +--------+ | [place]ICAID [place] | OHP | [id number] | | [phone] | [address] | Medica | | | PLUS | | [address] | [phone] | [phone] | id | | | OPEN | | esent | | [place], [place] | | | | CARD | | | | [address] | | + +--------+ +--------+ + +--------+ [...] | 1966 | [phone] | [place] [address] | | | [place] | | | 3 (Home) | | + +--------+ +--------+ + +"
--- OUTSIDE RECORDS SUMMARY | ~2019-12-28 | XMS | Encounter Summary ---
Demographics + + + | Address | [address] | | | [place] [address] | + + + | Home Phone [...] Team Providers + +------+ + | Care Tilt Tray Driver Name | Role | Phone | [...] + + | 10/19/ | Virtual | [facility] | Elaine Andrews, | [facility] | | 2019 | Office | NEUROLOGY [address] | [address] | attentiveness | | | Visit | [address] | [address] | (Primary Dx); | | | | [place], [place] | [place] [address] | Dizziness and | | | | [address] | [phone] | giddiness; Toxic | | | | [phone] | | encephalopathy | +--------+ + + [...] due to COVID-19 pandemic. Service was provided [id number] with the patient via interactive videoconferencing Video [...] is wor lisa with a specialist at [facility]. She is not yet on the transplant [...] [place] | | | | | | [place] [address] | | | | | | [phone] | | | | | | | | +--------+---------+ + + + documented as of this encounter Visit Diagnoses + + | Diagnosis | + + | Spells of decreased attentiveness - Primary Other general symptoms | + + | Dizziness and giddiness | + + | Toxic encephalopathy | + + documented in this encounter
--- OUTSIDE RECORDS SUMMARY | ~2019-12-28 | XMS | Encounter Summary ---
Demographics + + + | Address | [address] | | | [place] [address] | + + + | Home Phone [...] Team Providers + +------+ + | Care Insulation Helper Name | Role | Phone | + +------+ + | Mynor Kam MD | PCP | | + +------+ + Encounter Details +--------+ + + + + | Date | Type | Department | Care Team | Description | +--------+ + + + + | 09/21/ | Orders Only | [facility] | Matt, | | | 2019 | | PULMONOLOGY [address] | [address]ora, | | | | | [address] | [address] | | | | | [place], [place] | [address] [place], | | | | | [address] | [place] [address] | | | | | [phone] | [phone] | | | | | | | [...] [address] | | | | | | [place] [address] | | | | | | [phone] | | | | | | | | +--------+---------+ + + + documented as of this encounter Visit Diagnoses Not on filedocumented in this encounter"
--- OUTSIDE RECORDS SUMMARY | ~2019-12-28 | XMS | Encounter Summary ---
Demographics + + + | Address | [address] | | | [place] [address] | + + + | Home Phone [...] Team Providers + +------+ + | Care Software Applications Engineer Name | Role | Phone | [...] + + | 04/05/ | Refill | [facility] | Elaine Andrews, | Medication Refill | | 2019 | | NEUROLOGY [address] | MD [address] | | | | | [address] | [address] | | | | | [place], [place] | [place] [address] | | | | | [address] | [phone] | | | | | [phone] | | | +--------+--------+ + + + [...] Miscellaneous Notes Telephone Encounter - Lashaun Scott Leather Coater - 04/05/2019 1:19 PM PSTL ast visit: [...] | | | | | [place] [address] | | | | | | [phone] | | | | | | | | +--------+---------+ + + + documented as of this encounter Visit Diagnoses Not on filedocumented in this encounter"
--- OUTSIDE RECORDS SUMMARY | ~2019-12-28 | XMS | Encounter Summary ---
Demographics + + + | Address | [address] | | | [place] [address] | + + + | Home Phone [...] Team Providers + +------+ + | Care Radiation Oncology Therapist Name | Role | Phone | + [...] | | | | [place] | [phone] | | | | | [address] | | | | | | [phone] | | | +--------+ + + + [...] | | | | | [place] [address] | | | | | | [phone] | | | | | | | | +--------+---------+ + + + documented as of this encounter Visit Diagnoses Not on filedocumented in this encounter"
--- OUTSIDE RECORDS SUMMARY | ~2019-12-28 | XMS | Encounter Summary ---
Demographics + + + | Address | [address] | | | [place] [address] | + + + | Home Phone [...] Providers + +------+ + | Care Aerial Erector Name | Role | Phone | + [...] [address] | | | | | [place], [place] | [address] | | | | | [address] | [place] [address] | | | | | [phone] | [phone] | | | | | | | [...] D | | | | | | [place] [address] | | | | | | [phone] | | | | | | | [...] | | | | using the MDRD IDMD | | | | | | traceable [...]
--- OUTSIDE RECORDS SUMMARY | ~2019-12-28 | XMS | Encounter Summary ---
Demographics + + + | Address | [address] | | | [place] [address] | + + + | Home Phone [...] + | Author | [facility] | | | and [place] | + + + | Organization | [facility] | | | [...] Team Providers + +------+ + | Care Spray Machine Loader Name | Role | Phone | [...] Provider Unknown | | | | | [place], [place] | [phone] | | | | | [address] | | | | | | [phone] | | | +--------+ + + + [...] D | | | | | | [place] [address] | | | | | | [phone] | | | | | | | [...]
--- OUTSIDE RECORDS SUMMARY | ~2019-12-28 | XMS | Encounter Summary ---
Demographics + + + | Address | [address] | | | [place] [address] | + + + | Home Phone [...] Team Providers + +------+ + | Care Forestry Biology Specialist Name | Role | Phone | [...] + + | 02/26/ | Telephone | [facility] | DeandrezayeulaliayoniElaine, | Follow-up | | 2019 | | NEUROLOGY [address] | MD [address] | (Reschedule ) | | | | [address] | [address] | | | | | [place], [place] | [place] [address] | | | | | [address] | [phone] | | | | | [phone] | | | +--------+ + + + [...] Miscellaneous Notes Telephone Encounter - Adrian Khan, Service Electrician - 02/26/2019 9:47 AM PSTCalled bobby Gilliam back at [phone] and she wanted to reschedule pts appt to have doctors rupali ts all in one day for less travel. elephone Encounter - Rupa Irene - 02/26/2019 8:22 AM PSTChristina, is calling regarding Follow-up (Reschedule ) and would like a call back. Additional Call Details: Calling to reschedule appointment 03/08. Please call her back at [phone] If this is a symptom based call, was patient offered triage? Not Applicable If this is a symptom based call and you were unable to immediately transfer the call to a ainsley lloyd foreign language stenographer was caller made aware that if at [...] D | | | | | | [facility] [place] [address] | | | | | | [phone] | | | | | | | | +--------+---------+ + + + documented as of this encounter Visit Diagnoses Not on filedocumented in this encounter"
--- OUTSIDE RECORDS SUMMARY | ~2019-12-28 | XMS | Encounter Summary ---
Demographics + + + | Address | [address] | | | [place] [address] | + + + | Home Phone [...] Team Providers + +------+ + | Care Certified Pharmacist Assistant Name | Role | Phone | + +------+ + PCP | Unavailable | + +------+ + Encounter Details +--------+ + + + + | Date | Type | Department | Care Team | Description | +--------+ + + + + | 05/05/ | Hospital | [facility] | Estefania Brannon DO | Acute respiratory | | 2013 - | Encounter | [facility] | [address] | failure (HCC); | | | | INTENSIVE CARE UNIT | [place] [address] | Abnormal LFTs (liver | | 05/14/ | | [address] | [phone] | function tests); | | 2013 | | [place], [place] | | Acute respiratory | | | | [address] | | distress syndrome | | | | [phone] | | (ARDS) ([facility]); | | | | | | Influenza A; Morbid | | | | | | obesity with BMI of | | | | | | 45.0-49.9, adult | | | | | | ([facility]); Poorly | | | | | | controlled diabetes | | | | | | mellitus ([facility]); | | | | | | Secondary [...] Al Houston MD Service: (none) Author Type: Cutting Machine Operator Helper Filed: 05/14/1343 Date of Service: 05/14/13832 Status: Signed Collar Starcher: Al Houston MD (Physician) [facility] Service: Cutting Machine Operator Helper Discharge Summary Gilma Salmon 47 y.o. Date [...] ventilation initiated on May 01, 2013 at [facility]. HOSPITAL COURSE: May 06, 2013: PICC andright [...] Procedure: TRACHEOSTOMY; Surgeon: Shalonda Novoa MD; Location: [facility] MAIN OR; Service: ENT ; Laterality: N/A; move to OR table, need harmonic scalpel with focus HP, patient [address] nds Medication List As of 05/14/2013 8:33 AM Condition on Discharge: Stable, to [facility] [place] Code Status: Full Code Primary Care Physician: [...] Date of Service: 05/14/13 1322 Status: Signed Collar Starcher: Bryanna Keenan RN (Registered Nurse) Transport here [...] Date of Service: 05/14/13 1043 Status: Signed Collar Starcher: Bryanna Keenan RN (Registered Nurse) Report given to Maggy at [facility] in [facility] onver elaina Transaction, Provider Unknown - 05/14/2013 8:33 AM PST Case Management by MARTHA Kunz at 05/14/13 0833 Author: MARTHA Kunz Service: (none) Author Type: Digester Operator Helper Filed: 05/14/13 0834 Date of Service: 05/14/13832 Status: Signed Collar Starcher: MARTHA Kunz (Digester Operator Helper) Received t/c from [facility] with [facility]. AMbulance Auth # is [id number] for [facility] services. Called [facility] to verify their corn picker time (12:30) and also called pt's bharath white to verify that pt is being transferred today. onver elaina Transaction, Provider Unknown - 05/14/2013 8:31 AM PST Case Management by MARTHA Kunz at 05/14/13830 Author: MARTHA Kunz Service: (none) Author Type: Digester Operator Helper Filed: 05/14/13831 Date of Service: 05/14/13830 Status: Signed Collar Starcher: MARTHA Kunz (Digester Operator Helper) Disposition: [facility] Transportation:[facility] [phone] All orders, signed AVS, and prescriptions have [...] Al Houston MD Service: (none) Author Type: Cutting Machine Operator Helper Filed: 05/14/13840 Date of Service: 05/14/13827 Status: Addendum Collar Starcher: Al Houston MD (Physician) Related Notes: Original Note by Al Houston MD (Physician) filed at 05/14/13832 [facility] Service: Cutting Machine Operator Helper Progress Note Gilma Salmon 47 y.o. Hospital [...] ventilation initiated on May 01, 2013 at [facility]. ICU TIMELINE:The patient is admitted on May [...] Procedure: TRACHEOSTOMY; Surgeon: Shalonda Novoa MD; Location: [facility] MAIN OR; Service: ENT ; [...] original. Progress Notes by Erlinda David MS CCC-DOBIE MAN at 05/13/13 7731 Author: Erlinda David MS CCC-DOBIE MAN Service: (none) Author Type: Speech and Middle School Baseball Coach ologist Filed: 05/13/13 1604 Date of Service: 05/13/13 1603 Status: Signed Collar Starcher: Erlinda David MS CCC-DOBIE MAN (Speech and Language Pathologist) 05/13/13 1500 General [...] are being met at this time. Rec DOBIE MAN f/u at place of d/c. onver elaina Transaction, Provider Unknown - 05/13/2013 3:43 PM PST Case Management by MARTHA Kunz at 05/13/13 1543 Author: MARTHA Kunz Service: (none) Author Type: Digester Operator Helper Filed: 05/13/13 8044 Date of Service: 05/13/13 154 Status: Signed Collar Starcher: MARTHA Kunz (Digester Operator Helper) Received t/c from [facility] with [facility] ([phone]). He is requesting a return call if f or some reason pt is not able to transfer to [place] tomorrow. His crew plans to wrrive here between 11:30-12:00 if not called. Informed Unit PATIENT CARE ASSISTANT and Lead RN. Al Gonzalez MD - 05/13/2013 3:43 PM PSTFormatting of this note might be different from the o riginal. Progress Notes by Al Houston MD at 05/13/13 4423 Author: Al Houston MD Service: (none) Author Type: Cutting Machine Operator Helper Filed: 05/13/13 1555 Date of Service: 05/13/13 1543 Status: Signed Collar Starcher: Al Houston MD (Physician) [facility] Service: Cutting Machine Operator Helper Progress Note Gilma Salmon 47 y.o. Hospital [...] ventilation initiated on May 01, 2013 at [facility]. ICU TIMELINE:The patient is admitted on May [...] Procedure: TRACHEOSTOMY; Surgeon: Shalonda Novoa MD; Location: [facility] MAIN OR; Service: ENT ; [...] Date of Service: 05/13/13 1518 Status: Signed Collar Starcher: Juanita Herman RN (Registered Nurse) Report received from HERIBERTO Bartlett and care assumed. Pt resting in bed with no complaints at t his time. JUANITA HERMAN 05/13/2013 3:19 PM onver elaina Transaction, Provider Unknown - 05/13/2013 1:35 PM PST Progress Notes by Edis Ken PT at 05/13/13 1335 Author: Edis Ken PT Service: (none) Author Type: Physical Therapist Filed: 05/13/13 9235 Date of Service: 05/13/13 1335 Status: Signed Collar Starcher: Edis Ken PT (Physical Therapist) 05/13/13 1335 [...] limited by? Patient's ability;Therapist/staff discretion Pattern Decreased asrah;Right swing foot doesn't pass stance foot;Left swing [...] therapy (Pt. to d/c to LTAC in [place] tomorrow per notes) Equipment Recommended (May need [...] therapy (Pt. to d/c to LTAC in [place] tomorrow per notes) Equipment Recommended (May need use of 4WW initially for UE support) Prior Function Level of [place] Independent with functional mobility;Independent with ADLs;Independe nt [...] Author: MARTHA Kunz Service: (none) Author Type: Digester Operator Helper Filed: 05/13/13 1048 Date of Service: 05/13/131041 Status: Signed Collar Starcher: MARTHA Kunz (Digester Operator Helper) Met with pt and family to update. Pt has now made the decision to go to [place] in [place] where her mother and sister live. Spoke with [facility] liason who states that they are working on insurance auth. They are prepared to accept pt tomorrow to the [facility]. RN-RN report # is [phone] x [phone], report # is [phone] (Dr. Alli brown) . Made arrangements with [facility] [phone] to corn picker pt at 11:30 tomorrow morning. Transfer work completed and placed on pt chart. onver elaina Transaction, Provider Unknown - 05/13/2013 9:26 AM PST Case Management by MARTHA Kunz at 05/13/13925 Author: MARTHA Kunz Service: (none) Author Type: Digester Operator Helper Filed: 05/13/13 1021 Date of Service: 05/13/13925 Status: Addendum Collar Starcher: MARTHA Kunz (Digester Operator Helper) Related Notes: Original Note by MARTHA Kunz (Digester Operator Helper) filed at 05/13/13948 Spoke with pt's insurance family service caseworker Kathleen ([phone]) and Lupe ([phone]) t o discuss LTAC transfer. I also spoke with Dara Mace from [facility] who states abi t beds are opening up. Dara will get back to me juan as to whether the beds will be avail able tomorrow or Friday. [place] [facility]. Wa iting to hear back about from insurance as to whether they will agree to letting pt stay in [facility] until Friday if bed is not available at [facility] until Friday. Called [facility] to notify that there may be a transport Friday/Friday. Informed family of current issues r egarding bed availability and insurance auth. Received t/c from Gregor Mccain at [place] (ph: [phone], fax:[phone]) indicating th at they have a bed [facility]. He is aware [facility] due to proximity. Monroe Mohan MD - 05/12/2013 6:57 PM PSTFormatting of this note might be different from the origi nal. Progress Notes by Shalonda Novoa MD at 05/12/131856 Author: Shalonda Novoa MD Service: (none) Author Type: Physician Filed: 05/12/131913 Date of Service: 05/12/131856 Status: Signed Collar Starcher: Shalonda Novoa MD (Physician) [facility] Service: Otolaryngology Progress Note Hospital Day: LOS: 7 days Post-Op Day: 1 Day Post-Op SUBJECTIVE The patient is a 47 y.o. female with morbid obesity who was transferred to [facility] on Apr with the diagnosis of ARDS with influenza A, on Tamiflu. She also has a histor y of poorly controlled diabetes type 2, asthma and bronchitis with prior DVT. The patient wa s admitted on May 05, 2013. Mechanical ventilation initiated on May 01, 2013 at [facility]. A-line placed right radial artery May [...] sulfate, nystatin, ny statin, ondansetron, ondansetron, pancrelipase (Roc-Sdmu-Pdpp) 10,000 units, petrolatum, jerri sphorus, potassium chloride, [...] 05/12/131756 Date of Service: 05/12/131749 Status: Signed Collar Starcher: Esperanza Gutierrez MD (Physician) [facility] Service: Cutting Machine Operator Helper Progress Note Gilma Salmon 47 y.o. Hospital [...] ventilation initiated on May 01, 2013 at [facility]. ICU TIMELINE:The patient is admitted on May [...] care as above. Family has met with [facility] repr esentative and plan to go to that facility once patient is stable for discharge. Code Status: Full Code *Please bill 45 minutes of critical care time spent evaluating the patient, reviewing the d trish and formulating a plan exclusive of all other procedures. Esperanza Gutierrez MD 05/12/2013 5:50 PM Ash Padilla, MS [facility]-DOBIE MAN - 05/12/2013 4:29 PM PSTFormatting of this note might be different from th e original. Progress Notes by Ysabel Lucero MS CCC-DOBIE MAN at 05/12/13 1629 Author: Ysabel Lucero MS CCC-DOBIE MAN Service: (none) Author Type: Speech and Language Pathol ogist Filed: 05/12/13 1633 Date of Service: 05/12/13 1629 Status: Signed Collar Starcher: Ysabel Lucero MS CCC-DOBIE MAN (Speech and Language Pathologist) 05/12/13 1628 DOBIE MAN Last Visit DOBIE MAN Received On 05/12/13 Requires DOBIE MAN Follow Up On hold (DOBIE MAN to complete eval in am) Pt and family given communication board so pt is able to indicate what she needs/wants. Pt indicated she is too sick and didn't want to participate in an eval today. RN reports pt ceja s been throwing up through trach, DOBIE MAN to con't to follow for possible pmv placement when pt is appropriate. YSABEL LUCERO MS CCC-DOBIE MAN 05/12/2013 onversion Saldana saction, Provider Unknown - 05/12/2013 2:35 PM PSTFormatting of this note might be differen t from the original. Progress Notes by Deshawn Hernandez at 05/12/13 1435 Author: Deshawn Hernandez Service: (none) Author Type: Filed: 05/12/13 1436 Date of Service: 05/12/13 1435 Status: Signed Collar Starcher: Deshawn Hernandez () Participated in interdisciplinary rounds with Dr. Gutierrez, financial institution vice president. Pt is scheduled fo r transfer to LTAC. INSTRUCTOR KNITTING sorting out location with family. Family is supported by their [facility] community. Deshawn Hernandez [facility] onver elaina Transaction, Provider Unknown - 05/12/2013 1:10 PM PST Progress Notes by Joselyn Knutson RN at 05/12/13 1310 Author: Joselyn Knutson RN Service: Wound/Ostomy Care Author Type: Registered Nurse Filed: 05/12/13 1312 Date of Service: 05/12/13 1310 Status: Signed Collar Starcher: Joselyn Knutson RN (Registered Nurse) Patient seen today by plant sciences professor for evaluation due to a low Huang [...] Author: MARTHA Kunz Service: (none) Author Type: Digester Operator Helper Filed: 05/12/13 1014 Date of Service: 05/12/13 1008 Status: Signed Collar Starcher: MARTHA Kunz (Digester Operator Helper) Received t/c from [facility] who states that they do not have an y beds until the end of the week. Met with patient and family to discuss other options. They do not want pt to go to [facility] or [facility]. They are agreeable to me making referrals to [facility] and [place] as a back up plan if [facility] has no beds by Friday. Faxed clini christi to [facility] (fax: [phone], ph: [phone]) and [place] (fax: [phone], ph: ). Await return calls regarding bed availability and whether they are a contracted facility with insurance. oncaty delaney Transaction, Provider Unknown - 05/11/2013 3:41 PM PST Case Management by MARTHA Kunz at 05/11/13 1541 Author: MARTHA Kunz Service: (none) Author Type: Digester Operator Helper Filed: 05/11/13 1542 Date of Service: 05/11/13 1541 Status: Signed Collar Starcher: MARTHA Kunz (Digester Operator Helper) Provided gas voucher to pt's daughter who is returning to [place] tomorrow and coming figueroa k on . Family informed me this morning that they do not want the pt to go to [facility] after all. They have chosen [facility] as their first choice and [facility] as their second ch oice. At this time [facility] has no beds but may on . Pt is to be trached today and pe gged tomorrow. REferral made to cecily Barbosa for [facility] ([phone]) who will have insurance check into whether they are contracted or not. I notified Tarsha Washington from [facility] that the family has chosen a different facility. Will complete transfer paperwork once I kno w if [facility] has a bed available. Notified [facility] of possible transfer on . Anabelle boone, NICANOR Crisostomo - 05/11/2013 12:12 PM PSTFormatting of this note might be different f rom the original. Progress Notes by NICANOR Martines at 05/11/13 1212 Author: NICANOR Martines Service: Cutting Machine Operator Helper Author Type: Cutting Machine Operator Helper Filed: 05/11/13 1528 Date of Service: 05/11/13 1212 Status: Signed Collar Starcher: NICANOR Martines (Nurse Practitioner) [facility] Service: Cutting Machine Operator Helper Progress Note Gilma Salmon 47 y.o. Hospital [...] ventilation initiated on May 01, 2013 at [facility]. ICU TIMELINE:The patient is admitted on May [...] care as above. Family has met with [facility] lia naqvitive and plan to go [...] Author: MARTHA Kunz Service: (none) Author Type: Digester Operator Helper Filed: 05/10/13 4957 Date of Service: 05/10/131436 Status: Signed Collar Starcher: MARTHA Kunz (Digester Operator Helper) Attended morning rounds. Pt will likely be trached/pegged in the next 1-2 days. Met with p t's daughter to discuss LTAC options. They say that their father is still very sick at home with the flu and has asked them to assist with decision-making. LTAC options given. Daughter s are interested in [facility] in [place] as first choice and [facility] as second cho ice. I faxed clinical to [facility] ((fax [phone]) and spoke with the Tarsha tony ([phone]) who will plan to meet with pt's daughters tomorrow at 11:00. Salome Simms ARNP - 05/10/2013 7:25 AM PSTFormatting of this note might be different f rom the original. Progress Notes by NICANOR Martines at 05/10/13724 Author: NICANOR Martines Service: Cutting Machine Operator Helper Author Type: Cutting Machine Operator Helper Filed: 05/10/13811 Date of Service: 05/10/13724 Status: Signed Collar Starcher: NICANOR Martines (Nurse Practitioner) [facility] Service: Cutting Machine Operator Helper Progress Note Gilma Salmon 47 y.o. Hospital [...] ventilation initiated on May 01, 2013 at [facility]. ICU TIMELINE:The patient is admitted on May [...] will call Dr. novoa today who is transition teacher from ENT the office is not open [...] Notes by Esperanza Gutierrez MD at 05/09/13 4261 Author: Esperanza Gutierrez MD Service: Cutting Machine Operator Helper Author Type: Physician Filed: 05/09/131820 Date of Service: 05/09/131810 Status: Signed Collar Starcher: Esperanza Gutierrez MD (Physician) [facility] Service: Cutting Machine Operator Helper Progress Note Gilma Salmon 47 y.o. Hospital [...] init iated on May 01, 2013 at [facility]. A-line placed right radial artery J anuary [...] Notes by Han Guerrero DMD at 05/08/13 6097 Author: Han Guerrero DMD Service: Cutting Machine Operator Helper Author Type: Physician Filed: 02/01/14 2221 Date of Service: 05/08/132213 Status: Addendum Collar Starcher: Han Guerrero DMD (Dentist) Related Notes: Original Note by Han Guerrero DMD (Dentist) filed at 05/08/132215 [facility] Service: Cutting Machine Operator Helper PM note Gilma Salmon 47 y.o. Evaluated [...] GUERRERO MD 05/08/2013 10:14 PM amamie warren, Epseranza Arora MD - 05/08/2013 2:44 PM PSTFormatting of this note might be differen t from the original. Progress Notes by Esperanza Gutierrez MD at 05/08/13 9264 Author: Esperanza Gutierrez MD Service: (none) Author Type: Physician Filed: 05/08/13 1503 Date of Service: 05/08/13 1444 Status: Signed Collar Starcher: Esperanza Gutierrez MD (Physician) [facility] Service: Cutting Machine Operator Helper Progress Note Gilma M Salmon 47 y.o. [...] init iated on May 01, 2013 at [facility]. A-line placed right radial artery J anuary [...] Case Management by MARTHA Kunz at 05/07/13 1668 Author: MARTHA Kunz Service: (none) Author Type: Digester Operator Helper Filed: 05/07/13 1347 Date of Service: 05/07/13 1333 Status: Signed Collar Starcher: MARTHA Kunz (Digester Operator Helper) 05/07/13 1331 Discharge Planning Evaluation Living Arrangements Spouse/significant other Support Systems Spouse/significant other;Children Type of Residence Private residence House type House-[facility] [place] [facility] Services No Prior functional status Independent prior to admit. Was employed for [employer] in [place]. Met with: pt's 2 daughters Ashlyn and Juli and discussed discharge planning, Pt is a 47 y.o., female admitted with the flu and bilater al pneumonia. Pt is vented. Non smoker; has asthma. and lives with her Amado (22 years) in [place]. 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 He is sick with the flu as well so is no t coming in to visit the patient. Pt has a step-daughter in [place] and a son in [place]. 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 I a sked if they had a sikh that would support them. They are [facility] so I called quirk sander Tim who got the girls connected with a local [place] from the [place] sikh and hopefully can assist wi th some housing. I offered gas vouchers if they need to transport back and forth from [facility]. CM to follow to provide support [...] Author: Joseph Steward Service: (none) Author Type: Grain Cleaner Filed: 05/07/13 1223 Date of Service: 05/07/13 1221 Status: Signed Collar Starcher: Joseph Steward () Grain Cleaner received call back from [employer] leader Luis Blunt, who then came promptly to ass ist dtrs with their needs. Chaplain Joseph Steward BCC Al Gonzalez MD - 05/07/2013 11:43 AM PSTFormatting of this note might be different from the o riginal. Progress Notes by Al Houston MD at 05/07/13 1143 Author: Al Houston MD Service: (none) Author Type: Cutting Machine Operator Helper Filed: 05/07/13 1223 Date of Service: 05/07/13 1143 Status: Signed Collar Starcher: Al Houston MD (Physician) [facility] Service: Cutting Machine Operator Helper Progress Note Gilma Salmon 47 y.o. Hospital [...] initi ated on May 01, 2013 at [facility]. A-line placed right radial artery [facility] 2013. Events Overnight: Trying to [...] insulin regular 1 unit/mL 1.6 Units/hr (05/06/13 0986) PHYSICAL EXAM Vital Signs: BP 112/60 | [...] Date of Service: 05/07/13 1035 Status: Signed Collar Starcher: Joseph Steward () Family referral for help in contacting local [facility] leadership for housing assistance for pt's 2 dtrs who are from [place]. Called/msg for local [facility] leader. Awaiting call back. Chaplain Joseph Steward BCC onver elaina Transaction, Provider Unknown - 05/06/2013 5:52 AM PST Progress Notes by Han Guerrero DMD at 05/06/13 0552 Author: Han Guerrero DMD Service: Cutting Machine Operator Helper Author Type: Physician Filed: 05/07/13 0448 Date of Service: 05/06/13 0552 Status: Signed Collar Starcher: Han Guerrero DMD (Dentist) Related Notes: Original Note by Han Guerrero DMD (Dentist) filed at 05/06/13 0610 [facility] Service: Cutting Machine Operator Helper Progress Note Gilma Salmon 47 y.o. Hospital [...] initi ated on May 01, 2013 at [facility]. A-line placed right radial artery [facility] 2013. Events Overnight: The patient had [...] sulfate, nystatin, nystatin, ondan setron, ondansetron, pancrelipase (Wvd-Cced-Zypr) 10,000 units, petrolatum, phosphorus, pota ssium chloride, [...] Progress Notes by Han Guerrero DMD at 05/05/132 Author: Han Guerrero DMD Service: (none) Author Type: Physician Filed: 05/05/13 9940 Date of Service: 05/05/132244 Status: Signed Collar Starcher: Han Guerrero DMD (Dentist) [facility] Service: Cutting Machine Operator Helper PM note Gilma Leyva Viky 47 y.o. [...] function tests) ASSESSMENT & PLAN Will need [place], decreased MV to 6 cc kg ibw, [...] 141 Date of Service: 05/05/131414 Status: Signed Collar Starcher: Jenniffer Hidalgo RPH (Pharmacist) Initiation of Vancomycin Pharmacy Dosing Gilma Salmon 47 y.o. female 1.676 m (5' 6") 138.9 kg (306 lb 3.5 oz) Body mass index is 49.45 kg/(m^2). Combs Body Weight: 59.3 kg Adjusted Body Weight: 91.1 kg CREATININE Date Value Range Status 05/05/2013 0.81 0.50 - 1.00 mg/dL Final Testing performed at [facility];[address] [facility];[place] [address] Estimated CrCl : CREATININE: 0.81 (05/05/13 1320) Estimated creatinine clearance - Cockcroft-Gault CrCl: 122.2 mL/min Indications: Community acquired pneumonia Dose per Protocol: Loading Dose: Vancomycin 2250 mg (17mg/kg TBW) IV Q12H Used SCr 0.52 in chart from 014 StRadha Grey First Dose to be Given: 1500 05-05-2013 Vancomycin Trough Due: 05-07-2013 1400 Goal Trough for Vancomycin: 15-20 mcg/mL Pharmacist: JENNIFFER HIADLGO 05/05/2013 2:13 PM onver elaina Transaction, Provider Unknown - 05/05/2013 12:53 PM PST Progress Notes by Jenniffer Hidalgo RPH at 05/05/13 1253 Author: Jenniffer Hidalgo RPH Service: (none) Author Type: Pharmacist Filed: 05/05/13 125 Date of Service: 05/05/13 1252 Status: Signed Collar Starcher: Jenniffer Hidalgo RPH (Pharmacist) Renal Dosing Monitoring: [...] H&P by Estefania Brannon DO at 05/05/13 0691 Author: Estefania Brannon DO Service: Cutting Machine Operator Helper Author Type: Cutting Machine Operator Helper Filed: 05/05/13 1509 Date of Service: 05/05/13 1309 Status: Addendum Collar Starcher: Estefania Brannon DO (Physician) Related Notes: Original Note by Estefania Brannon DO (Physician) filed at 05/05/13 7229 [facility] Service: Cutting Machine Operator Helper Admission History & Physical Gilma Salmon 47 y.o. Date of Admission: 05/05/2013 Requesting Physician: Dr. Hernandes, Hospitalist at [facility] Indication for ICU Admission: acute respiratory [...] who pres ented to the ED at [facility] on 05/01 for cough and fever and was discharged home. She pr esented there again the next day with SOB, weakness, cough, fever and dizziness. She was the n admitted and tested positive for influenza A and was started on Tamiflu. She became progre ssively more hypoxemic with increasing b/l infiltrates on CXR and was transferred to [facility] for further management after she was intubated on the evening of 05/04. (Pt had just receiv ed flu shot on 04/29/13 at [facility]). REVIEW OF SYSTEMS A comprehensive review of [...] for intubation: daily sedation holidays and keep [place] 2-3. CARDIOVASCULAR: Hemodynamically stable PULMONARY: Acute respiratory failure: due to Influenza A pneumonia. Will send sputum for cx as at r isk for secondary bacterial PNA. Will keep higher PEEP and wean FIO2 for sats >90%. Asthma: without e/o acute exacerbation. ETT a little high on CXR, will advance 2 cm. GI: Elevated AST/ALT: mild. Monitor. Had neg viral hepatitis serologies at [facility]. RENAL: Hypokalemia: replace and follow HypoMg: [...] Procedures by Shalonda Novoa MD at 05/11/13 1804 Author: Shalonda Novoa MD Service: (none) Author Type: Physician Filed: 05/11/13 3135 Date of Service: 05/11/13 4367 Status: Signed Collar Starcher: Shalonda Novoa MD (Physician) [facility] Service: Otolaryngology Operative Note Pre-operative Diagnosis: Respiratory Failure Post-operative Diagnosis: Same Procedure(s): Tracheostomy, Nasogastric tube insertion Surgeon: SHALONDA NOVOA MD Accounting Professional(s): Alexandrea LOUIS Anesthesia: General endotrachial anesthesia Estimated Blood Loss: Less Than 50 ml Other: #8 Shiley DCT tracheostomy tube, 10 [place] nasogastric feeding tube Indications: 47 YOF with [...] 010 Date of Service: 05/06/13100 Status: Signed Collar Starcher: Han Guerrero DMD (Dentist) Procedure Orders: 1. Insert arterial line [[id number]] ordered by Han Guerrero DMD at 05/06/13 010 Post-procedure Diagnoses: 1. Acute respiratory failure (HCC) [518.81] [facility] Service: Cutting Machine Operator Helper BEDSIDE PROCEDURE NOTE Insert Arterial Line Date/Time: 05/05/2013 1:01 AM Performed by: HAN GUERRERO Authorized by: HAN GUERRERO Consent: The procedure was performed in an emergent situation. Patient identity confirmed: anonymous protocol, patient vented/unresponsive Time out: Immediately prior to procedure a "time out" was called to verify the correct gee ent, procedure, equipment, security support analyst and site/side marked as required. [...] Date of Service: 05/11/13 1026 Status: Signed Collar Starcher: Shalodna Novoa MD (Physician) [facility] Service: Otolaryngology Initial Consult Note Date of Admission: 05/05/2013 Reason for Consultation: Respiratory Failure requiring mechanical ventilation Requesting Physician: Cutting Machine Operator Helper History Obtained From: daughter, chart review Date of Service: 05/10/2013 CHIEF COMPLAINT: Respiratory failure HISTORY OF PRESENT ILLNESS The patient is a 47 y.o. female with morbid obesity who was transferred to [facility] on 2013 with the diagnosis of ARDS with influenza A, on Tamiflu. She also has a history o f poorly controlled diabetes type 2, asthma and bronchitis with prior DVT. The patient was a dmitted on May 05, 2013. Mechanical ventilation initiated on May 01, 2013 at [facility]. A-line placed right radial artery May [...] sulfate, nystatin, nystatin, ondansetron, on dansetron, pancrelipase (Mch-Pyma-Ldlp) 10,000 units, petrolatum, phosphorus, potassium chlo ride, potassium chloride, potassium chloride, sodium bicarbonate, sodium chloride 0.9 %, sod ium glycerophosphate IVPB 20 mMol, sodium glycerophosphate IVPB 45 mMol [DISCONTINUED] pancrelipase (Wab-Bccu-Dgxs) 10,000 units, [DISCONTINUED] pancrelipase (Lip- Prot-Amyl) 10,000 [...] 05/07/13941 Date of Service: 05/07/13941 Status: Signed Collar Starcher: Ann Marie Garcia RN (Registered Nurse) Problem: [...] D | | | | | | [place] [address] | | | | | | [phone] | | | | | | | [...] | | Fingerstick | performed at [facility];[address] | | LAB | | | | [address];[place] | | | | | | [address] | | | | + + + [...] | | LAB | | | | [facility], [address] | | | | | | [place] | | | | | | [address] | | | | + + + + + + | HEP B | NON REACTIVEComment: | | EXTERNAL | | | SURFACE | Testing performed at | | LAB | | | ANTIBODY | [facility], [address] [facility] | | | | | | [place] | | | | | | [address] | | | | + + + + + + | Hepatitis B | NON REACTIVEComment: | | EXTERNAL | | | Core Ab | Testing performed at | | LAB | | | Total | [facility], [address] [facility] | | | | | | [place] | | | | | | [address] | | | | + + + [...] | | | | | performed at [facility], [address] | | | | | | [facility] [address], | | | | | | [place] [address] | | | | + + + + + + | HCV Ab | NON REACTIVEComment: | | EXTERNAL | | | | Testing performed at | | LAB | | | | [facility], [address] [facility] | | | | | | [place] | | | | | | [address] | | | | + + + [...] at | | | | | | [facility], [address] [facility] [address] | | | | | | [place] | | | | | | [address] | | | | + + + [...] | | Fingerstick | performed at [facility];[address] | | LAB | | | | [address] [place] | | | | | | [address] | | | | + + + [...] | | Fingerstick | performed at [facility];[address] | | LAB | | | | [address];[place] | | | | | | [address] [...] | | Fingerstick | performed at [facility];[address] | | LAB | | | | [address];[place] | | | | | | [address] | | | | + + + [...] | | | | performed at [facility];888 | mmol/L | LAB | | | | [address] [facility];[place], [place] | | | | | | [address] | | | | + + + [...] | | Fingerstick | performed at [facility] | | LAB | | | | [address];[place] | | | | | | [address] | | | | + + + + + + + + | Specimen | + + | | + + + +---------+ + + | Performing | Address | City/State/Zipcode | Phone Number | | Organization | | | | + +---------+ + + | EXTERNAL LAB | | | | + +---------+ + + XR Chest 1 Vw (05/13/2013 5:34 AM [facility]) + + | Specimen | + + [...] | | | | performed at [facility];[address] | | LAB | | | | [address];[place] | | | | | | [address] | | | | + + + + + + | Non- | 3.77Comment: Testing | 3.70 - 5.10 | EXTERNAL | | | Red Blood | performed at [facility];888 | M/uL | LAB | | | Cells | [address];[place] | | | | | Counted | [address] | | | | + + + + + + | Hemoglobin | 10.4 (L)Comment: Testing | 11.3 - 15.5 | EXTERNAL | | | | performed at [facility];888 | g/dL | LAB | | | | [address];[place] | | | | | | [address] | | | | + + + + + + | Hematocrit, | 30.3 (L)Comment: Testing | 34.0 - 46.0 % | EXTERNAL | | | POC | performed at [facility];[address] | | LAB | | | | [address];[place] | | | | | | [address] | | | | + + + + + + | MCV | 80.4Comment: Testing | 80.0 - 100.0 fl | EXTERNAL | | | | performed at [facility];[address] | | LAB | | | | [address];[place] | | | | | | [address] | | | | + + + + + + | MCH | 27.6Comment: Testing | 27.0 - 34.0 pg | EXTERNAL | | | | performed at [facility];[address] | | LAB | | | | [address];[place] | | | | | | [address] | | | | + + + + + + | MCHC | 34.3Comment: Testing | 32.0 - 35.5 | EXTERNAL | | | | performed at [facility];888 | g/dL | LAB | | | | [address];[place] | | | | | | [address] | | | | + + + + + + | RDW-CV | 40.3Comment: Testing | 37 - 53 fl | EXTERNAL | | | | performed at [facility];[address] | | LAB | | | | [address];[place] | | | | | | [address] | | | | + + + + + + | Platelet | 544 (H)Comment: Testing | 150 - 400 K/uL | EXTERNAL | | | Count | performed at [facility];[address] | | LAB | | | Plasma | [address];[place] | | | | | | [address] | | | | + + + + + + | MPV | 6.6Comment: Testing | fl | EXTERNAL | | | | performed at [facility];[address] | | LAB | | | | [address];[place] | | | | | | [address] | | | | + + + + + + | Differentia | AUTOMATEDComment: | | EXTERNAL | | | l Type | Testing performed at | | LAB | | | | [facility];[address] | [address];[place] [address] | | | | + + + [...] | | | | performed at [facility];[address] | | LAB | | | | [address];[place] | | | | | | [address] | | | | + + + [...] | | | | performed at [facility];888 | mmol/L | LAB | | | | [address];[place] | | | | | | [address] | | | | + + + + + + | K | 3.5Comment: Testing | 3.5 - 4.9 | EXTERNAL | | | | performed at [facility];888 | mmol/L | LAB | | | | [address];[place] | | | | | | [address] | | | | + + + + + + | Cl | 102Comment: Testing | 99 - 109 mmol/L | EXTERNAL | | | | performed at [facility];[address] | | LAB | | | | [address];[place] | | | | | | [address] | | | | + + + + + + | CO2 | 29Comment: Testing | 23 - 32 mmol/L | EXTERNAL | | | | performed at [facility];[address] | | LAB | | | | [address];[place] | | | | | | [address] | | | | + + + + + + | Anion Gap | 10Comment: Testing | 5 - 20 mmol/L | EXTERNAL | | | | performed at [facility];[address] | | LAB | | | | [address];[place] | | | | | | [address] | | | | + + + + + + | Glucose, | 106 (H)Comment: Testing | 65 - 99 mg/dL | EXTERNAL | | | Fasting | performed at [facility];[address] | | LAB | | | | [address];[place] | | | | | | [address] | | | | + + + + + + | BUN | 16Comment: Testing | 8 - 25 mg/dL | EXTERNAL | | | | performed at [facility];[address] | | LAB | | | | [address];[place] | | | | | | [address] | | | | + + + + + + | Creatinine | 0.55Comment: Testing | 0.50 - 1.00 | EXTERNAL | | | | performed at [facility];888 | mg/dL | LAB | | | | [address];[place] | | | | | | [address] | | | | + + + + + + | BUN/Creatin | 30Comment: Testing | | EXTERNAL | | | ine Ratio | performed at [facility];[address] | | LAB | | | | [address];[place] | | | | | | [address] | | | | + + + + + + | Calcium | 8.5Comment: Testing | 8.5 - 10.2 | EXTERNAL | | | | performed at [facility];888 | mg/dL | LAB | | | | [address];[place] | | | | | | [address] | | | | + + + + + + | Protein, | 7.5Comment: Testing | 6.3 - 8.2 g/dL | EXTERNAL | | | Total | performed at [facility];[address] | | LAB | | | | [address];[place] | | | | | | [address] | | | | + + + + + + | Albumin | 2.2 (L)Comment: Testing | 3.6 - 5.0 g/dL | EXTERNAL | | | | performed at [facility];[address] | | LAB | | | | [address];[place] | | | | | | [address] | | | | + + + + + + | Globulin | 5.3 (H)Comment: Testing | 1.3 - 4.9 g/dL | EXTERNAL | | | | performed at [facility];[address] | | LAB | | | | [address];[place] | | | | | | [address] | | | | + + + + + + | A/G Ratio | 0.4 (L)Comment: Testing | 1.0 - 2.4 | EXTERNAL | | | | performed at [facility];[address] | | LAB | | | | [address];[place] | | | | | | [address] | | | | + + + + + + | Bilirubin | 0.5Comment: Testing | 0.1 - 1.5 mg/dL | EXTERNAL | | | Total | performed at [facility];[address] | | LAB | | | | [address];[place] | | | | | | [address] | | | | + + + + + + | ALP, | 118 (H)Comment: Testing | 35 - 115 U/L | EXTERNAL | | | External | performed at [facility];[address] | | LAB | | | | [address];[place] | | | | | | [address] | | | | + + + + + + | AST | 69 (H)Comment: Testing | 10 - 45 U/L | EXTERNAL | | | | performed at [facility];[address] | | LAB | | | | [address];[place] | | | | | | [address] | | | | + + + + + + | ALT | 81 (H)Comment: Testing | 10 - 65 U/L | EXTERNAL | | | | performed at [facility];[address] | | LAB | | | | [address];[place] | | | | | | [address] | | | | + + + [...] | | | | | at [facility];[address];[place] [address] | | | | + + + [...] | | Fingerstick | performed at [facility];[address] | | LAB | | | | [address];[place] | | | | | | [address] | | | | + + + [...] | | Fingerstick | performed at [facility];[address] | | LAB | | | | [address];[place], [place] | | | | | | [address] | | | | + + + [...] | | | | performed at [facility];888 | mmol/L | LAB | | | | [address];[place] | | | | | | [address] | | | | + + + + + + | K | 4.0Comment: Testing | 3.5 - 4.9 | EXTERNAL | | | | performed at [facility];888 | mmol/L | LAB | | | | [address];[place] | | | | | | [address] | | | | + + + + + + | Cl | 100Comment: Testing | 99 - 109 mmol/L | EXTERNAL | | | | performed at [facility];[address] | | LAB | | | | [address];[place] | | | | | | [address] | | | | + + + + + + | CO2 | 31Comment: Testing | 23 - 32 mmol/L | EXTERNAL | | | | performed at [facility];[address] | | LAB | | | | [address];[place] | | | | | | [address] | | | | + + + + + + | Anion Gap | 9Comment: Testing | 5 - 20 mmol/L | EXTERNAL | | | | performed at [facility];[address] | | LAB | | | | [address];[place] | | | | | | [address] | | | | + + + + + + | Glucose, | 179 (H)Comment: Testing | 65 - 99 mg/dL | EXTERNAL | | | Fasting | performed at [facility];[address] | | LAB | | | | [address];[place] | | | | | | [address] | | | | + + + + + + | BUN | 20Comment: Testing | 8 - 25 mg/dL | EXTERNAL | | | | performed at [facility];[address] | | LAB | | | | [address];[place] | | | | | | [address] | | | | + + + + + + | Creatinine | 0.67Comment: Testing | 0.50 - 1.00 | EXTERNAL | | | | performed at [facility];888 | mg/dL | LAB | | | | [address];[place] | | | | | | [address] | | | | + + + + + + | BUN/Creatin | 29Comment: Testing | | EXTERNAL | | | ine Ratio | performed at [facility];[address] | | LAB | | | | [address];[place] | | | | | | [address] | | | | + + + + + + | Calcium | 8.8Comment: Testing | 8.5 - 10.2 | EXTERNAL | | | | performed at [facility];888 | mg/dL | LAB | | | | [address];[place] | | | | | | [address] | | | | + + + [...] | | | | | at [facility];[address];[place] [address] | | | | + + + [...] | | Fingerstick | performed at [facility];[address] | | LAB | | | | [address];[place], [place] | | | | | | [address] | | | | + + + [...] | | Fingerstick | performed at [facility];[address] | | LAB | | | | [address] [facility];[place] | | | | | | [address] | | | | + + + [...] | | | | | [place] [address] | | | | + + + + + + | Non- | 3.90Comment: Testing | 3.70 - 5.10 | EXTERNAL | | | Red Blood | performed at [facility], [address] | M/uL | LAB | | | Cells | [address] [place], | | | | | Counted | [place] [address] | | | | + + + + + + | Hemoglobin | 10.4 (L)Comment: Testing | 11.3 - 15.5 | EXTERNAL | | | | performed at [facility], [address] | g/dL | LAB | | | | [address], | | | | | | [place] [address] | | | | + + + + + + | Hematocrit, | 31.8 (L)Comment: Testing | 34.0 - 46.0 % | EXTERNAL | | | POC | performed at [facility], [address] | | LAB | | | | [address], | | | | | | [place] [address] | | | | + + + + + + | MCV | 81.6Comment: Testing | 80.0 - 100.0 fl | EXTERNAL | | | | performed at [facility], [address] | | LAB | | | | [address] [place], | | | | | | [place] [address] | | | | + + + + + + | MCH | 26.7 (L)Comment: Testing | 27.0 - 34.0 pg | EXTERNAL | | | | performed at [facility], [address] | | LAB | | | | [address] [place], | | | | | | [place] [address] | | | | + + + + + + | MCHC | 32.7Comment: Testing | 32.0 - 35.5 | EXTERNAL | | | | performed at [facility], [address] | g/dL | LAB | | | | [address], | | | | | | [place] [address] | | | | + + + + + + | RDW-CV | 39.8Comment: Testing | 37 - 53 fl | EXTERNAL | | | | performed at [facility], [address] | | LAB | | | | [address], | | | | | | [place] [address] | | | | + + + + + + | Platelet | 469 (H)Comment: Testing | 150 - 400 K/uL | EXTERNAL | | | Count | performed at [facility], [address] | | LAB | | | Plasma | [address], | | | | | | [place] [address] | | | | + + + + + + | MPV | 7.1Comment: Testing | fl | EXTERNAL | | | | performed at [facility], [address] | | LAB | | | | [address] [place], | | | | | | [place] [address] | | | | + + + + + + | Differentia | AUTOMATEDComment: | | EXTERNAL | | | l Type | Testing performed at | | LAB | | | | [facility], [address] | | | | | | [place] | | | | | | [address] | | | | + + + [...] EXTERNAL | | | | performed at [facility], [address] | | LAB | | | | [address] [place], | | | | | | [place] [address] | | | | + + + [...] | | | | | [place] [address] | | | | + + + + + + | K | 3.7Comment: Testing | 3.5 - 4.9 | EXTERNAL | | | | performed at [facility], [address] | mmol/L | LAB | | | | [address], | | | | | | [place] [address] | | | | + + + + + + | Cl | 102Comment: Testing | 99 - 109 mmol/L | EXTERNAL | | | | performed at [facility], [address] | | LAB | | | | [address], | | | | | | [place] [address] | | | | + + + + + + | CO2 | 29Comment: Testing | 23 - 32 mmol/L | EXTERNAL | | | | performed at [facility], [address] | | LAB | | | | [address], | | | | | | [place] [address] | | | | + + + + + + | Anion Gap | 9Comment: Testing | 5 - 20 mmol/L | EXTERNAL | | | | performed at [facility], [address] | | LAB | | | | [address], | | | | | | [place] [address] | | | | + + + + + + | Glucose, | 147 (H)Comment: Testing | 65 - 99 mg/dL | EXTERNAL | | | Fasting | performed at [facility], [address] | | LAB | | | | [address], | | | | | | [place] [address] | | | | + + + + + + | BUN | 18Comment: Testing | 8 - 25 mg/dL | EXTERNAL | | | | performed at [facility], [address] | | LAB | | | | [address] [place], | | | | | | [place] [address] | | | | + + + + + + | Creatinine | 0.45 (L)Comment: Testing | 0.50 - 1.00 | EXTERNAL | | | | performed at [facility], [address] | mg/dL | LAB | | | | [address], | | | | | | [place] [address] | | | | + + + + + + | BUN/Creatin | 40Comment: Testing | | EXTERNAL | | | ine Ratio | performed at [facility], [address] | | LAB | | | | [address], | | | | | | [place] [address] | | | | + + + + + + | Calcium | 8.9Comment: Testing | 8.5 - 10.2 | EXTERNAL | | | | performed at [facility], [address] | mg/dL | LAB | | | | [address], | | | | | | [place] [address] | | | | + + + + + + | Protein, | 7.1Comment: Testing | 6.3 - 8.2 g/dL | EXTERNAL | | | Total | performed at [facility], [address] | | LAB | | | | [address], | | | | | | [place] [address] | | | | + + + + + + | Albumin | 2.8 (L)Comment: Testing | 3.6 - 5.0 g/dL | EXTERNAL | | | | performed at [facility], [address] | | LAB | | | | [address], | | | | | | [place] [address] | | | | + + + + + + | Globulin | 4.3Comment: Testing | 1.3 - 4.9 g/dL | EXTERNAL | | | | performed at [facility], [address] | | LAB | | | | [address], | | | | | | [place] [address] | | | | + + + + + + | A/G Ratio | 0.7 (L)Comment: Testing | 1.0 - 2.4 | EXTERNAL | | | | performed at [facility], [address] | | LAB | | | | [address], | | | | | | [place] [address] | | | | + + + + + + | Bilirubin | 0.5Comment: Testing | 0.1 - 1.5 mg/dL | EXTERNAL | | | Total | performed at [facility], [address] | | LAB | | | | [address], | | | | | | [place] [address] | | | | + + + + + + | ALP, | 94Comment: Testing | 35 - 115 U/L | EXTERNAL | | | External | performed at [facility], [address] | | LAB | | | | [address], | | | | | | [place] [address] | | | | + + + + + + | AST | 62 (H)Comment: Testing | 10 - 45 U/L | EXTERNAL | | | | performed at [facility], [address] | | LAB | | | | [address], | | | | | | [place] [address] | | | | + + + + + + | ALT | 70 (H)Comment: Testing | 10 - 65 U/L | EXTERNAL | | | | performed at [facility], [address] | | LAB | | | | [address], | | | | | | [place] [address] | | | | + + + [...] [address], | | | | | | [place] [address] | | | | + + + [...] | | Fingerstick | performed at [facility];[address] | | LAB | | | | [address];[place], [place] | | | | | | [address] | | | | + + + [...] | | | | performed at [facility];888 | mmol/L | LAB | | | | [address];[place], [place] | | | | | | [address] | | | | + + + [...] | | | | performed at [facility];[address] | | LAB | | | | [address];[place] | | | | | | [address] | | | | + + + [...] | | | | performed at [facility];888 | | LAB | | | | [address];[place], [place] | | | | | | [address] | | | | + + + [...] | | Fingerstick | performed at [facility];88 | | LAB | | | | [address];[place] | | | | | | [address] | | | | + + + [...] | | Fingerstick | performed at [facility];888 | | LAB | | | | [address];[place] | | | | | | [address] | | | | + + + [...] Rad Conversion - 11/20/2018 1:53 PM PDT GILAM SALMONXR CHEST 1 VIEW05/11/2013 | | 12:42 [...] | | Fingerstick | performed at [facility];888 | | LAB | | | | [address];[place], [place] | | | | | | [address] | | | | + + + [...] | | (Calc) | performed at [facility];888 | mmol/L | LAB | | | | [address];[place] | | | | | | [address] | | | | + + + + + + | pH, Bld | 7.463 (H)Comment: | 7.300 - 7.450 | EXTERNAL | | | | Testing performed at | | LAB | | | | [facility];[address];[place] [address] | | | | + + + [...] | | | | performed at [facility];888 | | | | | | [facility];[place], [place] | | | | | | [address] | | | | + + + [...] | | | | performed at [facility];888 | | LAB | | | | [address];[place] | | | | | | [address] | | | | + + + + + + | Non- | 3.85Comment: Testing | 3.70 - 5.10 | EXTERNAL | | | Red Blood | performed at [facility] [place];888 | M/uL | LAB | | | Cells | [address];[place] | | | | | Counted | [id number] | | | | + + + + + + | Hemoglobin | 10.6 (L)Comment: Testing | 11.3 - 15.5 | EXTERNAL | | | | [facility] [facility] [place];888 | g/dL | LAB | | | | [address];[place] | | | | | | [address] | | | | + + + + + + | Hematocrit, | 31.0 (L)Comment: Testing | 34.0 - 46.0 % | EXTERNAL | | | POC | performed at [facility] [place];888 | | LAB | | | | [address];[place] | | | | | | [address] | | | | + + + + + + | MCV | 80.5Comment: Testing | 80.0 - 100.0 fl | EXTERNAL | | | | performed at [facility] [place];888 | | LAB | | | | [address];[place] | | | | | | [address] | | | | + + + + + + | MCH | 27.5Comment: Testing | 27.0 - 34.0 pg | EXTERNAL | | | | performed at [facility] [place];888 | | LAB | | | | [address];[place] | | | | | | [address] | | | | + + + + + + | MCHC | 34.1Comment: Testing | 32.0 - 35.5 | EXTERNAL | | | | performed at [facility] [place];888 | g/dL | LAB | | | | [address];[place] | | | | | | [address] | | | | + + + + + + | RDW-CV | 41.1Comment: Testing | 37 - 53 fl | EXTERNAL | | | | performed at [facility] [place];888 | | LAB | | | | [address];[place] | | | | | | [address] | | | | + + + + + + | Platelet | 484 (H)Comment: Testing | 150 - 400 K/uL | EXTERNAL | | | Count | performed at [facility] [place];888 | | LAB | | | Plasma | [address];[place] | | | | | | [address] | | | | + + + + + + | MPV | 6.8Comment: Testing | fl | EXTERNAL | | | | performed at [facility] [place];888 | | LAB | | | | [address];[place] | | | | | | [address] | | | | + + + + + + | Differentia | AUTOMATEDComment: | | EXTERNAL | | | l Type | Testing performed at | | LAB | | | | [facility] [place];[address] | | | | | [address];[place] [address] | | | | + + + [...] | | | | performed at [facility] [place];888 | | LAB | | | | [address];[place], [place] | | | | | | [address] | | | | + + + [...] | | | | performed at [facility] [place];888 | | LAB | | | | [address];[place], [place] | | | | | | [address] | | | | + + + [...] | | | | performed at [facility] [place];888 | mmol/L | LAB | | | | [address];[place] | | | | | | [address] | | | | + + + + + + | K | 3.9Comment: Testing | 3.5 - 4.9 | EXTERNAL | | | | performed at [facility] [place];888 | mmol/L | LAB | | | | [address];[place] | | | | | | [address] | | | | + + + + + + | Cl | 104Comment: Testing | 99 - 109 mmol/L | EXTERNAL | | | | performed at [facility] [place];888 | | LAB | | | | [address];[place] | | | | | | [address] | | | | + + + + + + | CO2 | 27Comment: Testing | 23 - 32 mmol/L | EXTERNAL | | | | performed at [facility] [place];888 | | LAB | | | | [address];[place] | | | | | | [address] | | | | + + + + + + | Anion Gap | 10Comment: Testing | 5 - 20 mmol/L | EXTERNAL | | | | performed at [facility] [place];888 | | LAB | | | | [address];[place] | | | | | | [address] | | | | + + + + + + | Glucose, | 151 (H)Comment: Testing | 65 - 99 mg/dL | EXTERNAL | | | Fasting | performed at [facility] [place];888 | | LAB | | | | [address];[place] | | | | | | [address] | | | | + + + + + + | BUN | 17Comment: Testing | 8 - 25 mg/dL | EXTERNAL | | | | performed at [facility] [place];888 | | LAB | | | | [address];[place] | | | | | | [address] | | | | + + + + + + | Creatinine | 0.57Comment: Testing | 0.50 - 1.00 | EXTERNAL | | | | performed at [facility] [place];888 | mg/dL | LAB | | | | [address];[place] | | | | | | [address] | | | | + + + + + + | BUN/Creatin | 29Comment: Testing | | EXTERNAL | | | ine Ratio | performed at [facility] [place];888 | | LAB | | | | [address];[place] | | | | | | [address] | | | | + + + + + + | Calcium | 8.3 (L)Comment: Testing | 8.5 - 10.2 | EXTERNAL | | | | performed at [facility] [place];888 | mg/dL | LAB | | | | [address];[place] | | | | | | [address] | | | | + + + + + + | Protein, | 7.1Comment: Testing | 6.3 - 8.2 g/dL | EXTERNAL | | | Total | performed at [facility] [place];888 | | LAB | | | | [address];[place] | | | | | | [address] | | | | + + + + + + | Albumin | 1.9 (L)Comment: Testing | 3.6 - 5.0 g/dL | EXTERNAL | | | | performed at [facility] [place];888 | | LAB | | | | [address];[place] | | | | | | [address] | | | | + + + + + + | Globulin | 5.1 (H)Comment: Testing | 1.3 - 4.9 g/dL | EXTERNAL | | | | performed at [facility] [place];888 | | LAB | | | | [address];[place] | | | | | | [address] | | | | + + + + + + | A/G Ratio | 0.4 (L)Comment: Testing | 1.0 - 2.4 | EXTERNAL | | | | performed at [facility] [place];888 | | LAB | | | | [address];[place] | | | | | | [address] | | | | + + + + + + | Bilirubin | 0.5Comment: Testing | 0.1 - 1.5 mg/dL | EXTERNAL | | | Total | performed at [facility] [place];888 | | LAB | | | | [address];[place] | | | | | | [address] | | | | + + + + + + | ALP, | 120 (H)Comment: Testing | 35 - 115 U/L | EXTERNAL | | | External | performed at [facility] [place];888 | | LAB | | | | [address];[place] | | | | | | [address] | | | | + + + + + + | AST | 79 (H)Comment: Testing | 10 - 45 U/L | EXTERNAL | | | | performed at [facility] [place];888 | | LAB | | | | [address];[place] | | | | | | [address] | | | | + + + + + + | ALT | 78 (H)Comment: Testing | 10 - 65 U/L | EXTERNAL | | | | performed at [facility] [place];888 | | LAB | | | | [address];[place] | | | | | | [address] | | | | + + + [...] | | | | | at [facility] [place];[address] [place] [address] | | | | | | [facility];[place] [address] | | | | + + + [...] | | Fingerstick | performed at [facility] [place];888 | | LAB | | | | [address];[place] | | | | | | [address] | | | | + + + [...] | | Patient | performed at [facility] [place];888 | | LAB | | | | [address];[place] | | | | | | [address] | | | | + + + [...] | | | | performed at [facility] [place];888 | | | | | | [address] [facility];[place], [place] | | | | | | [address] | | | | + + + [...] | | Fingerstick | performed at [facility] [place];888 | | LAB | | | | [address];[place] | | | | | | [address] | | | | + + + [...] | | | | performed at [facility] [place];888 | mmol/L | LAB | | | | [address];[place], [place] | | | | | | [address] | | | | + + + [...] | | | | performed at [facility] [place];888 | | LAB | | | | [address];[place] | | | | | | [address] | | | | + + + [...] | | | | performed at [facility] [place];888 | | LAB | | | | [address] [facility];[place], [place] | | | | | | [address] | | | | + + + [...] | | Fingerstick | performed at [facility] [place];88 | | LAB | | | | [address];[place], [place] | | | | | | [address] | | | | + + + [...] Excursion: 2.11 cm E-F | | | Coffee: 0.14 m/s IVC diameter: 2.19 cm IVC [...] 0.56 m/s TV | | | Dec Coffee: 4.82 m/s2 TV Dec Time: 116.68 ms TV E Cindy: 0.56 | | | m/s TV E/A Ratio: 1 Corn Detasseler Machine Operator: MARISA Authenticated by: Daina | | | [...] (A-L): 14.81 ml/m2LAAs A2C: 11.70 | | [id number] A-L A2C: 27.34 mlLALs A2C: 4.25 cmLAAs A4C: 15.34 [id number] A-L A4C: | | 38.61 mlLALs A4C: 5.17 cmAo Diam: 2.95 cmAV Cusp: 1.94 cmLA Diam: 3.01 cmLA/Ao: | | 1.02%FS: 33.07 %EDV(Teich): 93.02 mlEF(Teich): 61.77 %ESV(Teich): 35.55 | | mlIVSd: 1.18 cmIVSs: 1.31 cmLVIDd: 4.51 cmLVIDs: 3.01 cmLVPWd: 0.59 cmLVPWs: | | 1.28 cmSV(Teich): 57.46 mlD-E Excursion: 2.11 cmE-F Coffee: 0.14 m/sIVC diameter: | | 2.19 cmIVC collapse: 1.56 cmIVC % collapse: 26.37 %HR: 87.57 BPMAV maxPG: | | 10.95 mmHgAV meanP.08 mmHgAV Vmax: 1.65 m/Dalia Vmean: 1.16 m/Dalia VTI: 31.75 | | cmAVA Vmax: 2.87 cm2AVA (VTI): 3.09 [id number] Dopp: 3.61 l/dhxq8YGLC Dopp: 8.73 | | l/minHR: 88.92 BPMLVOT [...] 2.30 m/sTV A Cindy: 0.56 m/sTV Dec Coffee: 4.82 m/s2TV Dec Time: | | 116.68 msTV E Cindy: 0.56 m/sTV E/A Ratio: 1 Corn Detasseler Machine Operator: Bevted by: Daina | | Jimmy Alan [...] | |D-E Excursion: 2.11 cm | |E-F Coffee: 0.14 m/s | |IVC diameter: 2.19 cm [...] |MV DecT: 130.66 ms | |MV E Cnidy: 1.10 m/s | |MV E/A Ratio: 1.41 [...] A Cindy: 0.56 m/s | |TV Dec Coffee: 4.82 m/s2 | |TV Dec Time: 116.68 ms | |TV E Cindy: 0.56 m/s | |TV E/A Ratio: 1 | | | |Corn Detasseler Machine Operator: KVW | |Authenticated by: Daina Alan MD [...] | | Fingerstick | performed at [facility] [place];[address] | | LAB | | | | [address];[place], [place] | | | | | | [address] | | | | + + + [...] | | | | | [place] [address] | | | | + + + + + + | Non- | 3.73Comment: Testing | 3.70 - 5.10 | EXTERNAL | | | Red Blood | performed at [facility], [address] | M/uL | LAB | | | Cells | [address], | | | | | Counted | [place] [address] | | | | + + + + + + | Hemoglobin | 10.6 (L)Comment: Testing | 11.3 - 15.5 | EXTERNAL | | | | performed at [facility], [address] | g/dL | LAB | | | | [address], | | | | | | [place] [address] | | | | + + + + + + | Hematocrit, | 30.5 (L)Comment: Testing | 34.0 - 46.0 % | EXTERNAL | | | POC | performed at [facility], [address] | | LAB | | | | [address], | | | | | | [place] [address] | | | | + + + + + + | MCV | 81.8Comment: Testing | 80.0 - 100.0 fl | EXTERNAL | | | | performed at [facility], [address] | | LAB | | | | [address], | | | | | | [place] [address] | | | | + + + + + + | MCH | 28.4Comment: Testing | 27.0 - 34.0 pg | EXTERNAL | | | | performed at [facility], [address] | | LAB | | | | [address], | | | | | | [place] [address] | | | | + + + + + + | MCHC | 34.7Comment: Testing | 32.0 - 35.5 | EXTERNAL | | | | performed at [facility], [address] | g/dL | LAB | | | | [address], | | | | | | [place] [address] | | | | + + + + + + | RDW-CV | 41.1Comment: Testing | 37 - 53 fl | EXTERNAL | | | | performed at [facility], [address] | | LAB | | | | [address], | | | | | | [place] [address] | | | | + + + + + + | Platelet | 360Comment: Testing | 150 - 400 K/uL | EXTERNAL | | | Count | performed at [facility], [address] | | LAB | | | Plasma | [address], | | | | | | [place] [address] | | | | + + + + + + | MPV | 7.5Comment: Testing | fl | EXTERNAL | | | | performed at [facility], [address] | | LAB | | | | [address], | | | | | | [place] [address] | | | | + + + + + + | Differentia | AUTOMATEDComment: | | EXTERNAL | | | l Type | Testing performed at | | LAB | | | | [facility], [address] | | | | | | [place] | | | | | | [address] | | | | + + + [...] | | | | | [place] [address] | | | | + + + + + + | K | 3.6Comment: Testing | 3.5 - 4.9 | EXTERNAL | | | | performed at [facility], [address] | mmol/L | LAB | | | | [address], | | | | | | [place] [address] | | | | + + + + + + | Cl | 100Comment: Testing | 99 - 109 mmol/L | EXTERNAL | | | | performed at [facility], [address] | | LAB | | | | [address], | | | | | | [place] [address] | | | | + + + + + + | CO2 | 25Comment: Testing | 23 - 32 mmol/L | EXTERNAL | | | | performed at [facility], [address] | | LAB | | | | [address], | | | | | | [place] [address] | | | | + + + + + + | Anion Gap | 9Comment: Testing | 5 - 20 mmol/L | EXTERNAL | | | | performed at [facility], [address] | | LAB | | | | [address], | | | | | | [place] [address] | | | | + + + + + + | Glucose, | 144 (H)Comment: Testing | 65 - 99 mg/dL | EXTERNAL | | | Fasting | performed at [facility], [address] | | LAB | | | | [address], | | | | | | [place] [address] | | | | + + + + + + | BUN | 15Comment: Testing | 8 - 25 mg/dL | EXTERNAL | | | | performed at [facility], [address] | | LAB | | | | [address], | | | | | | [place] [address] | | | | + + + + + + | Creatinine | 0.39 (L)Comment: Testing | 0.50 - 1.00 | EXTERNAL | | | | performed at [facility], [address] | mg/dL | LAB | | | | [address], | | | | | | [place] [address] | | | | + + + + + + | BUN/Creatin | 38Comment: Testing | | EXTERNAL | | | ine Ratio | performed at [facility], [address] | | LAB | | | | [address], | | | | | | [place] [address] | | | | + + + + + + | Calcium | 8.0 (L)Comment: Testing | 8.5 - 10.2 | EXTERNAL | | | | performed at [facility], [address] | mg/dL | LAB | | | | [address], | | | | | | [place] [address] | | | | + + + [...] | | | | | | at [facility], [address] | | | | | | [address], | | | | | | [place] [address] | | | | + + + [...] | | Fingerstick | performed at [facility] [place];888 | | LAB | | | | [address];[place], [place] | | | | | | [address] | | | | + + + [...] | | | | performed at [facility] [place];888 | mmol/L | LAB | | | | [address];[place] | | | | | | [address] | | | | + + + [...] | | | | performed at [facility] [place];888 | | LAB | | | | [address];[place], [place] | | | | | | [address] | | | | + + + [...] | | | | performed at [facility] [place];[facility] | | LAB | | | | [address];[place] | | | | | | [address] | | | | + + + [...] | | Fingerstick | performed at [facility] [place];888 | | LAB | | | | [address];[place] | | | | | | [address] | | | | + + + [...] | | Fingerstick | performed at [facility] [place];888 | | LAB | | | | [address];[place] | | | | | | [address] | | | | + + + [...] | | | | performed at [facility] [place];888 | mmol/L | LAB | | | | [address];[place], [place] | | | | | | [address] | | | | + + + [...] | | | | performed at [facility] [place];[facility] | | LAB | | | | [address];[place] | | | | | | [address] | | | | + + + [...] | | | | performed at [facility] [place];8 | | LAB | | | | [address];[place] | | | | | | [address] | | | | + + + [...] | | Fingerstick | performed at [facility] [place];888 | | LAB | | | | [address];[place], [place] | | | | | | [address] | | | | + + + [...] | | | | performed at [facility] [place];888 | | LAB | | | | [address];[place], [place] | | | | | | [address] | | | | + + + + + + | Non- | 3.95Comment: Testing | 3.70 - 5.10 | EXTERNAL | | | Red Blood | performed at [facility] [place];888 | M/uL | LAB | | | Cells | [address];[place] | | | | | Counted | [address] | | | | + + + + + + | Hemoglobin | 10.9 (L)Comment: Testing | 11.3 - 15.5 | EXTERNAL | | | | performed at [facility] [place];888 | g/dL | LAB | | | | [address];[place] | | | | | | [address] | | | | + + + + + + | Hematocrit, | 32.0 (L)Comment: Testing | 34.0 - 46.0 % | EXTERNAL | | | POC | performed at [facility] [place];[address] | | LAB | | | | [address];[place] | | | | | | [address] | | | | + + + + + + | MCV | 81.0Comment: Testing | 80.0 - 100.0 fl | EXTERNAL | | | | performed at [facility] [place];[address] | | LAB | | | | [address];[place] | | | | | | [address] | | | | + + + + + + | MCH | 27.7Comment: Testing | 27.0 - 34.0 pg | EXTERNAL | | | | performed at [facility] [place];[address] | | LAB | | | | [address];[place] | | | | | | [address] | | | | + + + + + + | MCHC | 34.2Comment: Testing | 32.0 - 35.5 | EXTERNAL | | | | performed at [facility] [place];888 | g/dL | LAB | | | | [address];[place] | | | | | | [address] | | | | + + + + + + | RDW-CV | 42.9Comment: Testing | 37 - 53 fl | EXTERNAL | | | | performed at [facility] [place];[address] | | LAB | | | | [address];[place] | | | | | | [address] | | | | + + + + + + | Platelet | 363Comment: Testing | 150 - 400 K/uL | EXTERNAL | | | Count | performed at [facility] [place];[address] | | LAB | | | Plasma | [address];[place] | | | | | | [address] | | | | + + + + + + | MPV | 7.1Comment: Testing | fl | EXTERNAL | | | | performed at [facility] [place];[address] | | LAB | | | | [address];[place] | | | | | | [address] | | | | + + + + + + | Differentia | AUTOMATEDComment: | | EXTERNAL | | | l Type | Testing performed at | | LAB | | | | [facility] [place];[address];[place] [address] | | | | + + + [...] | | | | performed at [facility] [place];[facility] | | LAB | | | | [address] [facility];[place], [place] | | | | | | [address] | | | | + + + [...] | | | | performed at [facility] [place];[address] | | LAB | | | | [address];[place], [place] | | | | | | [address] | | | | + + + [...] | | | | performed at [facility] [place];888 | mmol/L | LAB | | | | [address];[place] | | | | | | [address] | | | | + + + + + + | K | 3.9Comment: Testing | 3.5 - 4.9 | EXTERNAL | | | | performed at [facility] [place];888 | mmol/L | LAB | | | | [address];[place] | | | | | | [address] | | | | + + + + + + | Cl | 106Comment: Testing | 99 - 109 mmol/L | EXTERNAL | | | | performed at [facility] [place];[address] | | LAB | | | | [address];[place] | | | | | | [address] | | | | + + + + + + | CO2 | 26Comment: Testing | 23 - 32 mmol/L | EXTERNAL | | | | performed at [facility] [place];[address] | | LAB | | | | [address];[place] | | | | | | [address] | | | | + + + + + + | Anion Gap | 10Comment: Testing | 5 - 20 mmol/L | EXTERNAL | | | | performed at [facility] [place];[address] | | LAB | | | | [address];[place] | | | | | | [address] | | | | + + + + + + | Glucose, | 160 (H)Comment: Testing | 65 - 99 mg/dL | EXTERNAL | | | Fasting | performed at [facility] [place];[address] | | LAB | | | | [address];[place] | | | | | | [address] | | | | + + + + + + | BUN | 16Comment: Testing | 8 - 25 mg/dL | EXTERNAL | | | | performed at [facility] [place];[address] | | LAB | | | | [address];[place] | | | | | | [address] | | | | + + + + + + | Creatinine | 0.61Comment: Testing | 0.50 - 1.00 | EXTERNAL | | | | performed at [facility] [place];888 | mg/dL | LAB | | | | [address];[place] | | | | | | [address] | | | | + + + + + + | BUN/Creatin | 26Comment: Testing | | EXTERNAL | | | ine Ratio | performed at [facility] [place];[address] | | LAB | | | | [address];[place] | | | | | | [address] | | | | + + + + + + | Calcium | 8.1 (L)Comment: Testing | 8.5 - 10.2 | EXTERNAL | | | | performed at [facility] [place];888 | mg/dL | LAB | | | | [address];[place] | | | | | | [address] | | | | + + + [...] | | | | | at [facility] [place];[address];[place] [address] | | | | + + + [...] | | Fingerstick | performed at [facility] [place];[address] | | LAB | | | | [address];[place], [place] | | | | | | [address] | | | | + + + [...] | | Fingerstick | performed at [facility] [place];[facility] | | LAB | | | | [address];[place], [place] | | | | | | [address] | | | | + + + [...] | | | | performed at [facility] [place] [place];888 | mmol/L | LAB | | | | [address];[place], [place] | | | | | | [address] | | | | + + + [...] | | Fingerstick | performed at [facility] [place];[address] | | LAB | | | | [address];[place], [place] | | | | | | [address] | | | | + + + [...] | | | | performed at [facility] [place];888 | mmol/L | LAB | | | | [address];[place], [place] | | | | | | [address] | | | | + + + [...] | | | | performed at [facility] [place];[address] | | LAB | | | | [address];[place], [place] | | | | | | [address] | | | | + + + [...] | | | | performed at [facility] [place];888 | | LAB | | | | [address];[place], [place] | | | | | | [address] [...] | | | | performed at [facility] | | LAB | | | | [address];[place] | | | | | | [address] | | | | + + + + + + | Non- | 4.07Comment: Testing | 3.70 - 5.10 | EXTERNAL | | | Red Blood | performed at [facility];888 | M/uL | LAB | | | Cells | [address];[place] | | | | | Counted | [address] | | | | + + + + + + | Hemoglobin | 11.1 (L)Comment: Testing | 11.3 - 15.5 | EXTERNAL | | | | performed at [facility];888 | g/dL | LAB | | | | [address];[place] | | | | | | [address] | | | | + + + + + + | Hematocrit, | 32.9 (L)Comment: Testing | 34.0 - 46.0 % | EXTERNAL | | | POC | performed at [facility] [place];888 | | LAB | | | | [address];[place] | | | | | | [address] | | | | + + + + + + | MCV | 80.8Comment: Testing | 80.0 - 100.0 fl | EXTERNAL | | | | performed at [facility];888 | | LAB | | | | [address];[place] | | | | | | [address] | | | | + + + + + + | MCH | 27.3Comment: Testing | 27.0 - 34.0 pg | EXTERNAL | | | | performed at [facility];888 | | LAB | | | | [address];[place] | | | | | | [address] | | | | + + + + + + | MCHC | 33.8Comment: Testing | 32.0 - 35.5 | EXTERNAL | | | | performed at [facility] [place];888 | g/dL | LAB | | | | [address];[place] | | | | | | [address] | | | | + + + + + + | RDW-CV | 41.1Comment: Testing | 37 - 53 fl | EXTERNAL | | | | performed at [facility] [place];[address] | | LAB | | | | [address];[place] | | | | | | [address] | | | | + + + + + + | Platelet | 307Comment: Testing | 150 - 400 K/uL | EXTERNAL | | | Count | performed at [facility] [place];888 | | LAB | | | Plasma | [address];[place] | | | | | | [address] | | | | + + + + + + | MPV | 7.5Comment: Testing | fl | EXTERNAL | | | | performed at [facility];[address] | | LAB | | | | [address];[place] | | | | | | [address] | | | | + + + + + + | Differentia | AUTOMATEDComment: | | EXTERNAL | | | l Type | Testing performed at | | LAB | | | | [facility] [place];[address];[place] [address] | | | | + + + [...] | | | | performed at [facility];[address] | | LAB | | | | [address];[place], [place] | | | | | | [address] | | | | + + + [...] | | | | performed at [facility] | | | | | | [address];[place] | | | | | | [address] | | | | + + + [...] | | | | performed at [facility];888 | mmol/L | LAB | | | | [address];[place] | | | | | | [address] | | | | + + + + + + | K | 3.7Comment: SLT | 3.5 - 4.9 | EXTERNAL | | | | HEMOLYSISTesting | mmol/L | LAB | | | | performed at [facility];[address] | | | | | | [address];[place] | | | | | | [address] | | | | + + + + + + | Cl | 106Comment: Testing | 99 - 109 mmol/L | EXTERNAL | | | | performed at [facility];[address] | | LAB | | | | [address];[place] | | | | | | [address] | | | | + + + + + + | CO2 | 26Comment: Testing | 23 - 32 mmol/L | EXTERNAL | | | | performed at [facility];[address] | | LAB | | | | [address];[place] | | | | | | [address] | | | | + + + + + + | Anion Gap | 10Comment: Testing | 5 - 20 mmol/L | EXTERNAL | | | | performed at [facility];[address] | | LAB | | | | [address];[place] | | | | | | [address] | | | | + + + + + + | Glucose, | 179 (H)Comment: Testing | 65 - 99 mg/dL | EXTERNAL | | | Fasting | performed at [facility];[address] | | LAB | | | | [address];[place] | | | | | | [address] | | | | + + + + + + | BUN | 16Comment: Testing | 8 - 25 mg/dL | EXTERNAL | | | | performed at [facility];[address] | | LAB | | | | [address];[place] | | | | | | [address] | | | | + + + + + + | Creatinine | 0.62Comment: Testing | 0.50 - 1.00 | EXTERNAL | | | | performed at [facility];888 | mg/dL | LAB | | | | [address];[place] | | | | | | [address] | | | | + + + + + + | BUN/Creatin | 26Comment: Testing | | EXTERNAL | | | ine Ratio | performed at [facility];[address] | | LAB | | | | [address];[place] | | | | | | [address] | | | | + + + + + + | Calcium | 7.9 (L)Comment: Testing | 8.5 - 10.2 | EXTERNAL | | | | performed at [facility];888 | mg/dL | LAB | | | | [address];[place] | | | | | | [address] | | | | + + + [...] | | | | | at [facility];[address] [place] [address] | | | | | | [facility];[place] [address] | | | | + + + [...] Rad Conversion - 11/20/2018 1:53 PM ISI [id number] yearsXR | | CHEST 1 VIEW05/08/2013 5:49 [...] | | Fingerstick | performed at [facility];[address] | | LAB | | | | [address];[place], [place] | | | | | | [address] | | | | + + + [...] | | Fingerstick | performed at [facility];8 | | LAB | | | | [address];[place] | | | | | | [address] | | | | + + + [...] | | Fingerstick | performed at [facility];[address] | | LAB | | | | [address];[place], [place] | | | | | | [address] | | | | + + + [...] | | | | performed at [facility];888 | mmol/L | LAB | | | | [address];[place] | | | | | | [address] | | | | + + + [...] EXTERNAL LAB | | performed at [facility];[address] [place] [address];[place] [address] 027 NAP1 BI | | | 027 NAP1 BI PRESUMPTIVE NEGATIVE | | | Detection of 027 NAP1 BI strains of C. difficile is presumptive and | | | for epidemiological purposes and not intended to guide or monitor | | | treatment for C. difficile infections. Testing performed at [facility] | | | [facility];[place] [address] | | + + + + +---------+ [...] | | Fingerstick | performed at [facility];[address] | | LAB | | | | [address];[place] | | | | | | [address] | | | | + + + [...] | | | | performed at [facility];8 | | LAB | | | | [address];[place] | | | | | | [address] | | | | + + + + + + | Non- | 4.28Comment: Testing | 3.70 - 5.10 | EXTERNAL | | | Red Blood | performed at [facility];888 | M/uL | LAB | | | Cells | [address];[place] | | | | | Counted | [address] | | | | + + + + + + | Hemoglobin | 11.8Comment: Testing | 11.3 - 15.5 | EXTERNAL | | | | performed at [facility];888 | g/dL | LAB | | | | [address];[place] | | | | | | [address] | | | | + + + + + + | Hematocrit, | 35.0Comment: Testing | 34.0 - 46.0 % | EXTERNAL | | | POC | performed at [facility];[address] | | LAB | | | | [address];[place] | | | | | | [address] | | | | + + + + + + | MCV | 81.7Comment: Testing | 80.0 - 100.0 fl | EXTERNAL | | | | performed at [facility];[address] | | LAB | | | | [address];[place] | | | | | | [address] | | | | + + + + + + | MCH | 27.6Comment: Testing | 27.0 - 34.0 pg | EXTERNAL | | | | performed at [facility];[address] | | LAB | | | | [address];[place] | | | | | | [address] | | | | + + + + + + | MCHC | 33.8Comment: Testing | 32.0 - 35.5 | EXTERNAL | | | | performed at [facility];888 | g/dL | LAB | | | | [address];[place] | | | | | | [address] | | | | + + + + + + | RDW-CV | 42.4Comment: Testing | 37 - 53 fl | EXTERNAL | | | | performed at [facility];[address] | | LAB | | | | [address];[place] | | | | | | [address] | | | | + + + + + + | Platelet | 260Comment: Testing | 150 - 400 K/uL | EXTERNAL | | | Count | performed at [facility];[address] | | LAB | | | Plasma | [address];[place] | | | | | | [address] | | | | + + + + + + | MPV | 8.0Comment: Testing | fl | EXTERNAL | | | | performed at [facility];[address] | | LAB | | | | [address];[place] | | | | | | [address] | | | | + + + + + + | Differentia | AUTOMATEDComment: | | EXTERNAL | | | l Type | Testing performed at | | LAB | | | | [facility];[address];[place] [address] | | | | + + + [...] | | | | performed at [facility] | | LAB | | | | [facility];[place], [place] | | | | | | [address] | | | | + + + [...] | | | | performed at [facility];[address] | | LAB | | | | [address];[place] | | | | | | [address] | | | | + + + [...] | | | | performed at [facility];888 | mmol/L | LAB | | | | [address];[place] | | | | | | [address] | | | | + + + + + + | K | 3.7Comment: Testing | 3.5 - 4.9 | EXTERNAL | | | | performed at [facility];888 | mmol/L | LAB | | | | [address];[place] | | | | | | [address] | | | | + + + + + + | Cl | 108Comment: Testing | 99 - 109 mmol/L | EXTERNAL | | | | performed at [facility];[address] | | LAB | | | | [address];[place] | | | | | | [address] | | | | + + + + + + | CO2 | 24Comment: Testing | 23 - 32 mmol/L | EXTERNAL | | | | performed at [facility];[address] | | LAB | | | | [address];[place] | | | | | | [address] | | | | + + + + + + | Anion Gap | 13Comment: Testing | 5 - 20 mmol/L | EXTERNAL | | | | performed at [facility];[address] | | LAB | | | | [address];[place] | | | | | | [address] | | | | + + + + + + | Glucose, | 125 (H)Comment: Testing | 65 - 99 mg/dL | EXTERNAL | | | Fasting | performed at [facility];[address] | | LAB | | | | [address];[place] | | | | | | [address] | | | | + + + + + + | BUN | 12Comment: Testing | 8 - 25 mg/dL | EXTERNAL | | | | performed at [facility];[address] | | LAB | | | | [address];[place] | | | | | | [address] | | | | + + + + + + | Creatinine | 0.76Comment: Testing | 0.50 - 1.00 | EXTERNAL | | | | performed at [facility];888 | mg/dL | LAB | | | | [address];[place] | | | | | | [address] | | | | + + + + + + | BUN/Creatin | 15Comment: Testing | | EXTERNAL | | | ine Ratio | performed at [facility];[address] | | LAB | | | | [address];[place] | | | | | | [address] | | | | + + + + + + | Calcium | 7.9 (L)Comment: Testing | 8.5 - 10.2 | EXTERNAL | | | | performed at [facility];888 | mg/dL | LAB | | | | [address];[place] | | | | | | [address] | | | | + + + [...] | | | | | at [facility];[address];[place] [address] | | | | + + + [...] | | Fingerstick | performed at [facility] | | LAB | | | | [address];[place], [place] | | | | | | [address] | | | | + + + [...] | | Fingerstick | performed at [facility];[address] | | LAB | | | | [address];[place] | | | | | | [address] | | | | + + + [...] | | Fingerstick | performed at [facility];[address] | | LAB | | | | [address];[place] | | | | | | [address] | | | | + + + [...] | | Fingerstick | performed at [facility];[address] | | LAB | | | | [address];[place], [place] | | | | | | [address] | | | | + + + [...] | | Fingerstick | performed at [facility];[address] | | LAB | | | | [address];[place] | | | | | | [address] | | | | + + + [...] | | Fingerstick | performed at [facility];[address] | | LAB | | | | [address] [facility];[place], [place] | | | | | | [address] | | | | + + + [...] | | | | performed at [facility];888 | mmol/L | LAB | | | | [address];[place] | | | | | | [address] | | | | + + + [...] | | | | performed at [facility];[address] | | LAB | | | | [address];[place], [place] | | | | | | [address] | | | | + + + [...] | | Fingerstick | performed at [facility];[address] | | LAB | | | | [address];[place] | | | | | | [address] | | | | + + + [...] | | Fingerstick | performed at [facility];[address] | | LAB | | | | [address] [facility];[place], [place] | | | | | | [address] | | | | + + + [...] | | Fingerstick | performed at [facility];[address] | | LAB | | | | [address];[place] | | | | | | [address] | | | | + + + + + + + + | Specimen | + + | | + + + +---------+ + + | Performing | Address | City/State/Zipcode | Phone Number | | Organization | | | | + +---------+ + + | EXTERNAL LAB | | | | + +---------+ + + XR Chest 1 Tyrell 05/06/2013 5:42 AM [facility]) + + | Specimen | + + [...] | | Fingerstick | performed at [facility];[address] | | LAB | | | | [address];[place] | | | | | | [address] | | | | + + + [...] | | | | | [place] [address] | | | | + + + + + + | Non- | 4.48Comment: Testing | 3.70 - 5.10 | EXTERNAL | | | Red Blood | performed at [facility], [address] | M/uL | LAB | | | Cells | [address] [place], | | | | | Counted | [place] [address] | | | | + + + + + + | Hemoglobin | 11.7Comment: Testing | 11.3 - 15.5 | EXTERNAL | | | | performed at [facility], [address] | g/dL | LAB | | | | [address], | | | | | | [place] [address] | | | | + + + + + + | Hematocrit, | 36.6Comment: Testing | 34.0 - 46.0 % | EXTERNAL | | | POC | performed at [facility], [address] | | LAB | | | | [address], | | | | | | [place] [address] | | | | + + + + + + | MCV | 81.7Comment: Testing | 80.0 - 100.0 fl | EXTERNAL | | | | performed at [facility], [address] | | LAB | | | | [address], | | | | | | [place] [address] | | | | + + + + + + | MCH | 26.1 (L)Comment: Testing | 27.0 - 34.0 pg | EXTERNAL | | | | performed at [facility], [address] | | LAB | | | | [address], | | | | | | [place] [address] | | | | + + + + + + | MCHC | 32.0Comment: Testing | 32.0 - 35.5 | EXTERNAL | | | | performed at [facility], [address] | g/dL | LAB | | | | [address], | | | | | | [place] [address] | | | | + + + + + + | RDW-CV | 39.8Comment: Testing | 37 - 53 fl | EXTERNAL | | | | performed at [facility], [address] | | LAB | | | | [address], | | | | | | [place] [address] | | | | + + + + + + | Platelet | 202Comment: Testing | 150 - 400 K/uL | EXTERNAL | | | Count | performed at [facility], [address] | | LAB | | | Plasma | [address], | | | | | | [place] [address] | | | | + + + + + + | MPV | 8.3Comment: Testing | fl | EXTERNAL | | | | performed at [facility], [address] | | LAB | | | | [address], | | | | | | [place] [address] | | | | + + + + + + | Differentia | AUTOMATEDComment: | | EXTERNAL | | | l Type | Testing performed at | | LAB | | | | [facility], [address] [address] [facility] | | | | | | [place] | | | | | | [address] | | | | + + + [...] | | | | performed at [facility];[address] | | LAB | | | | [address];[place], [place] | | | | | | [address] | | | | + + + [...] | | | | performed at [facility];[address] | | LAB | | | | [address];[place] | | | | | | [address] | | | | + + + [...] | EXTERNAL | | | A1c | [facility] | | LAB | | | [...] | | | | | performed at [facility], [address] | | | | | [address] [facility], | | | | | | [place] [address] | | | | + + + [...] | | | | | performed at [facility], [address] | | | | | | [facility], | | | | | | [place] [address] | | | | + + + [...] | | | | performed at [facility];[address] | | LAB | | | | [address];[place], [place] | | | | | | [address] | | | | + + + [...] | | | | performed at [facility];888 | mmol/L | LAB | | | | [address];[place] | | | | | | [address] | | | | + + + + + + | K | 3.7Comment: Testing | 3.5 - 4.9 | EXTERNAL | | | | performed at [facility];888 | mmol/L | LAB | | | | [address];[place] | | | | | | [address] | | | | + + + + + + | Cl | 109Comment: Testing | 99 - 109 mmol/L | EXTERNAL | | | | performed at [facility];[address] | | LAB | | | | [address];[place] | | | | | | [address] | | | | + + + + + + | CO2 | 25Comment: Testing | 23 - 32 mmol/L | EXTERNAL | | | | performed at [facility];[address] | | LAB | | | | [address];[place] | | | | | | [address] | | | | + + + + + + | Anion Gap | 11Comment: Testing | 5 - 20 mmol/L | EXTERNAL | | | | performed at [facility];[address] | | LAB | | | | [address];[place] | | | | | | [address] | | | | + + + + + + | Glucose, | 97Comment: Testing | 65 - 99 mg/dL | EXTERNAL | | | Fasting | performed at [facility];[address] | | LAB | | | | [address];[place] | | | | | | [address] | | | | + + + + + + | BUN | 6 (L)Comment: Testing | 8 - 25 mg/dL | EXTERNAL | | | | performed at [facility];[address] | | LAB | | | | [address];[place] | | | | | | [address] | | | | + + + + + + | Creatinine | 0.70Comment: Testing | 0.50 - 1.00 | EXTERNAL | | | | performed at [facility];888 | mg/dL | LAB | | | | [address];[place] | | | | | | [address] | | | | + + + + + + | BUN/Creatin | 9Comment: Testing | | EXTERNAL | | | ine Ratio | performed at [facility];[address] | | LAB | | | | [address];[place] | | | | | | [address] | | | | + + + + + + | Calcium | 7.5 (L)Comment: Testing | 8.5 - 10.2 | EXTERNAL | | | | performed at [facility];888 | mg/dL | LAB | | | | [address];[place] | | | | | | [address] | | | | + + + [...] | | | | | at [facility];[address] [place] [address] | | | | | | [facility];[place] [address] | | | | + + + [...] | | Fingerstick | performed at [facility];[address] | | LAB | | | | [address];[place] | | | | | | [address] | | | | + + + [...] | | Fingerstick | performed at [facility];[address] | | LAB | | | | [address];[place] | | | | | | [address] | | | | + + + [...] | | Fingerstick | performed at [facility];[address] | | LAB | | | | [address];[place], [place] | | | | | | [address] | | | | + + + [...] | | Fingerstick | performed at [facility];[address] | | LAB | | | | [address];[place] | | | | | | [address] | | | | + + + [...] | | Fingerstick | performed at [facility];[address] | | LAB | | | | [address];[place], [place] | | | | | | [address] | | | | + + + [...] | | | | performed at [facility];888 | mmol/L | LAB | | | | [address];[place] | | | | | | [address] [...] | | | | performed at [facility];[address] | | LAB | | | | [address];[place], [place] | | | | | | [address] | | | | + + + [...] | | | | performed at [facility];[address] | | LAB | | | | [address];[place], [place] | | | | | | [address] | | | | + + + [...] Testing performed at | | | [facility];[address] [facility];[place] [address] CULTURE | | | NO GROWTH | | | Testing performed at [facility], [address] [facility], | | | [place] [address] REPORT STATUS | | | 05/06/2013 FINAL [...] | | | | performed at [facility];[address] | | LAB | | | | [address];[place] | | | | | | [address] | | | | + + + + + + | RBC, UA | 16-25Comment: Testing | 0 - 5 /hpf | EXTERNAL | | | | performed at [facility];[address] | | LAB | | | | [address];[place] | | | | | | [address] | | | | + + + + + + | Epithelial | 1-5Comment: Testing | /lpf | EXTERNAL | | | Cells | performed at [facility];[address] | | LAB | | | | [address];[place] | | | | | | [address] | | | | + + + + + + | Bacteria, | 1+ (A)Comment: Testing | | EXTERNAL | | | UA | performed at [facility];[address] | | LAB | | | | [address];[place] | | | | | | [address] | | | | + + + [...] | | | | performed at [facility];[address] | | LAB | | | | [address];[place] | | | | | | [address] | | | | + + + + + + | Clarity, | CLOUDYComment: Testing | | EXTERNAL | | | Urine | performed at [facility];[address] | | LAB | | | | [address];[place] | | | | | | [address] | | | | + + + + + + | Specific | 1.015Comment: Testing | 1.001 - 1.035 | EXTERNAL | | | [place], | performed at [facility];[address] | | LAB | | | Urine | [address];[place] | | | | | | [address] | | | | + + + + + + | Leukocyte | SMALL (A)Comment: | | EXTERNAL | | | Esterase, | Testing performed at | | LAB | | | Urine | [facility];[address];[place] [address] | | | | + + + + + + | Nitrite, | NEGATIVEComment: Testing | | EXTERNAL | | | Urine | performed at [facility];[address] | | LAB | | | | [address];[place] | | | | | | [address] | | | | + + + + + + | Urobilinoge | 0.2Comment: Testing | mg/dL | EXTERNAL | | | n, Urine | performed at [facility];[address] | | LAB | | | | [address];[place] | | | | | | [address] | | | | + + + + + + | Protein, | NEGATIVEComment: Testing | mg/dL | EXTERNAL | | | Urine | performed at [facility];[address] | | LAB | | | | [address];[place] | | | | | | [address] | | | | + + + + + + | pH, Urine | 6.0Comment: Testing | 4.6 - 8.0 | EXTERNAL | | | | performed at [facility];[address] | | LAB | | | | [address];[place] | | | | | | [address] | | | | + + + + + + | Blood, | LARGE (A)Comment: | | EXTERNAL | | | Urine | Testing performed at | | LAB | | | | [facility];[address];[place] [address] | | | | + + + + + + | Ketones | NEGATIVEComment: Testing | mg/dL | EXTERNAL | | | | performed at [facility];[address] | | LAB | | | | [address];[place] | | | | | | [address] | | | | + + + + + + | Bilirubin, | NEGATIVEComment: Testing | | EXTERNAL | | | Urine | performed at [facility];[address] | | LAB | | | | [address];[place] | | | | | | [address] | | | | + + + + + + | Glucose, | NEGATIVEComment: Testing | mg/dL | EXTERNAL | | | Urine | performed at [facility];[address] | | LAB | | | | [address];[place] | | | | | | [address] | | | | + + + [...] | | Fingerstick | performed at [facility];[address] | | LAB | | | | [address];[place], [place] | | | | | | [address] | | | | + + + [...] | | Fingerstick | performed at [facility];[address] | | LAB | | | | [address];[place], [place] | | | | | | [address] | | | | + + + [...] Testing performed | | | at [facility];[address] [place] [address];[place] [address] SPECIAL REQUESTS | | | RAC | | | Testing performed at [facility];[address] [place] [address];[place] [address] | | | CULTURE NO GROWTH 6 DAYS | | | Testing performed | | | at [facility], [address] [place] [address] REPORT STATUS | | | 05/11/2013 FINAL [...] | | Fingerstick | performed at [facility];[address] | | LAB | | | | [address];[place], [place] | | | | | | [address] | | | | + + + [...] | | | | performed at [facility];[address] | | LAB | | | | [address];[place] | | | | | | [address] | | | | + + + + + + | Non- | 4.48Comment: Testing | 3.70 - 5.10 | EXTERNAL | | | Red Blood | performed at [facility];[address] | M/uL | LAB | | | Cells | [address];[place] | | | | | Counted | [id number] | | | | + + + + + + | Hemoglobin | 12.4Comment: Testing | 11.3 - 15.5 | EXTERNAL | | | | performed at [facility];888 | g/dL | LAB | | | | [address];[place] | | | | | | [address] | | | | + + + + + + | Hematocrit, | 36.1Comment: Testing | 34.0 - 46.0 % | EXTERNAL | | | POC | performed at [facility];[address] | | LAB | | | | [address];[place] | | | | | | [address] | | | | + + + + + + | MCV | 80.6Comment: Testing | 80.0 - 100.0 fl | EXTERNAL | | | | performed at [facility];[address] | | LAB | | | | [address];[place] | | | | | | [address] | | | | + + + + + + | MCH | 27.7Comment: Testing | 27.0 - 34.0 pg | EXTERNAL | | | | performed at [facility];[address] | | LAB | | | | [address];[place] | | | | | | [address] | | | | + + + + + + | MCHC | 34.3Comment: Testing | 32.0 - 35.5 | EXTERNAL | | | | performed at [facility];888 | g/dL | LAB | | | | [address];[place] | | | | | | [address] | | | | + + + + + + | RDW-CV | 41.1Comment: Testing | 37 - 53 fl | EXTERNAL | | | | performed at [facility];[address] | | LAB | | | | [address];[place] | | | | | | [address] | | | | + + + + + + | Platelet | 211Comment: Testing | 150 - 400 K/uL | EXTERNAL | | | Count | performed at [facility];[address] | | LAB | | | Plasma | [address];[place] | | | | | | [address] | | | | + + + + + + | MPV | 8.2Comment: Testing | fl | EXTERNAL | | | | performed at [facility];[address] | | LAB | | | | [address];[place] | | | | | | [address] | | | | + + + + + + | Differentia | AUTOMATEDComment: | | EXTERNAL | | | l Type | Testing performed at | | LAB | | | | [facility];[address];[place] [address] | | | | + + + [...] | | | | performed at [facility];[address] | | LAB | | | | [address];[place], [place] | | | | | | [address] | | | | + + + [...] | | | | performed at [facility] | | LAB | | | | [facility];[place], [place] | | | | | | [phone] | | | | + + + [...] | | | | performed at [facility];888 | mmol/L | LAB | | | | [address];[place], [place] | | | | | | [address] | | | | + + + + + + | K | 3.4 (L)Comment: Testing | 3.5 - 4.9 | EXTERNAL | | | | performed at [facility];888 | mmol/L | LAB | | | | [address];[place] | | | | | | [address] | | | | + + + + + + | Cl | 104Comment: Testing | 99 - 109 mmol/L | EXTERNAL | | | | performed at [facility];888 | | LAB | | | | [address];[place] | | | | | | [address] | | | | + + + + + + | CO2 | 27Comment: Testing | 23 - 32 mmol/L | EXTERNAL | | | | performed at [facility];888 | | LAB | | | | [address];[place] | | | | | | [address] | | | | + + + + + + | Anion Gap | 11Comment: Testing | 5 - 20 mmol/L | EXTERNAL | | | | performed at [facility];888 | | LAB | | | | [address];[place] | | | | | | [address] | | | | + + + + + + | Glucose, | 188 (H)Comment: Testing | 65 - 99 mg/dL | EXTERNAL | | | Fasting | performed at [facility];888 | | LAB | | | | [address];[place] | | | | | | [address] | | | | + + + + + + | BUN | 3 (L)Comment: Testing | 8 - 25 mg/dL | EXTERNAL | | | | performed at [facility];888 | | LAB | | | | [address];[place] | | | | | | [address] | | | | + + + + + + | Creatinine | 0.81Comment: Testing | 0.50 - 1.00 | EXTERNAL | | | | performed at [facility];888 | mg/dL | LAB | | | | [address];[place] | | | | | | [address] | | | | + + + + + + | BUN/Creatin | 4Comment: Testing | | EXTERNAL | | | ine Ratio | performed at [facility];888 | | LAB | | | | [address];[place] | | | | | | [address] | | | | + + + + + + | Calcium | 7.6 (L)Comment: Testing | 8.5 - 10.2 | EXTERNAL | | | | performed at [facility];888 | mg/dL | LAB | | | | [address];[place] | | | | | | [address] | | | | + + + + + + | Protein, | 6.3Comment: Testing | 6.3 - 8.2 g/dL | EXTERNAL | | | Total | performed at [facility];888 | | LAB | | | | [address];[place] | | | | | | [address] | | | | + + + + + + | Albumin | 2.2 (L)Comment: Testing | 3.6 - 5.0 g/dL | EXTERNAL | | | | performed at [facility];888 | | LAB | | | | [address];[place] | | | | | | [address] | | | | + + + + + + | Globulin | 4.1Comment: Testing | 1.3 - 4.9 g/dL | EXTERNAL | | | | performed at [facility];888 | | LAB | | | | [address];[place] | | | | | | [address] | | | | + + + + + + | A/G Ratio | 0.5 (L)Comment: Testing | 1.0 - 2.4 | EXTERNAL | | | | performed at [facility];888 | | LAB | | | | [address];[place] | | | | | | [address] | | | | + + + + + + | Bilirubin | 0.5Comment: Testing | 0.1 - 1.5 mg/dL | EXTERNAL | | | Total | performed at [facility];888 | | LAB | | | | [address];[place] | | | | | | [address] | | | | + + + + + + | ALP, | 99Comment: Testing | 35 - 115 U/L | EXTERNAL | | | External | performed at [facility];888 | | LAB | | | | [address];[place] | | | | | | [address] | | | | + + + + + + | AST | 134 (H)Comment: Testing | 10 - 45 U/L | EXTERNAL | | | | performed at [facility];888 | | LAB | | | | [address];[place] | | | | | | [address] | | | | + + + + + + | ALT | 157 (H)Comment: Testing | 10 - 65 U/L | EXTERNAL | | | | performed at [facility];888 | | LAB | | | | [address];[place] | | | | | | [address] | | | | + + + [...] | | | | | at [facility];[address] [place] [address] | | | | | | Blvd;[place] [address] | | | | + + + [...] Testing performed | | | at [facility];[address] [place] [phone] SPECIAL REQUESTS | | | RAC | | | Testing performed at [facility];[address] [place] [id number] | | | CULTURE NO GROWTH 6 DAYS | | | Testing performed | | | at [facility], [address] [place] [address] REPORT STATUS | | | 05/11/2013 FINAL [...] | | Fingerstick | performed at [facility];888 | | LAB | | | | [address];[place] | | | | | | [address] | | | | + + + [...] LAB | | Testing performed at [facility];[address] [place] [address];[place] [address] MRSA PCR | | | NEGATIVE Testing performed at | | | [facility];[address] [place] [address];[place] [address] | | + + + + +---------+ [...] Testing performed at | | | [facility];[address] [facility];[place] [address] GRAM STAIN | | | GREATER THAN 10 WBCS/LPF | | | LESS THAN 10 SEC/LPF | | | NO ORGANISMS SEEN | | | Testing performed at [facility], [address] | | [facility], [place] [address] CULTURE | | | NO GROWTH 2 DAYS | | | Testing performed at [facility], [address] [facility], | | | [place] [address] REPORT STATUS | | | 05/07/2013 FINAL [...] + | Acute respiratory distress syndrome (ARDS) ([facility]) Other pulmonary insufficiency, not | | elsewhere classified, following trauma and surgery | + + | Influenza A Influenza with other respiratory manifestations | + + | Morbid obesity with BMI of 45.0-49.9, adult ([facility]) | + + | Poorly controlled diabetes mellitus ([facility]) Type II or unspecified type diabetes | | mellitus without mention of complication, not stated as uncontrolled | + + | Secondary bacterial pneumonia | + + documented in this encounter
[2019-12-28] MEDS ORDERED: OXYCODONE HCL5 MG PO (13:43)
--- NOTE | 2019-12-28 19:24 | NUR ---
REPORT RECEIVED FROM ED RN. PT BROUGHT OVER IN ED BED BY MYSELF AND RN DWIGHT. PT AWAKE AND ORIENTED. PT WAS ABLE TO SHUFFLE OVER TO THE BED WITH MINIMAL ASSISTANCE. HISTORY OBTAINED, PT STATES DRN/DNI ON ADVANCED DIRECTIVE. PT WAS GIVEN 7 UNITS OF INSULIN BASED ON SLIDING SCALE, ROCEPHIN CURRENTLY RUNNING INTO IV. FLUID BOLUS OF LR READY TO INFUSE AFTERWARDS. PT BLADDER SCANNED SHOWING 627 ML OF URINE. PT. ADMITTED AND HANDOFF REPORT GIVEN TO [facility].
--- NOTE | 2019-12-28 20:00 | NUR ---
PATIENT ASSESSMENT COMPLETED. PATIENT HAD BEEN DESATING AT 87%. O2 WAS NOT TURNED ON. TITRATED TO 2L AND PATIENT 02 SATS RETURNED TO 97%. PATIENT ALERT AND ORIENTED. 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 MEDS GIVEN. BOTH GREAT TOES HAD DRIED BLOOD AND PATIENT REPORTED THAT SHE HAD FALLEN AT HOME. REPORTED 9/10 PAIN DUE TO FIBROMYALGIA AND REQUESTED OXYCODONE. PATIENT HAD A DRY COUGH AND LUNGS WERE CLEAR THROUGHOUT. PATIENT LEFT RESTING IN BED AND DENIED FURTHER NEED.
--- NOTE | 2019-12-28 21:30 | NUR ---
PATIENT BLOOD GLUCOSE 200. GIVEN SLIDING INSULIN AND SCHEDULED MEDS. SKIN ASSESSMENT COMPLETED. DRAIN IN PLACE IN PERIRECTAL AREA. PATIENT REPORTS BLOOD DRAINAGE FREQUENTLY FROM DRAIN. REDNESS AND YEAST FOUND UNDER BREASTS. CLEANED WITH WASHCLOTH AND WATER. PATIENT REPORTS PRESENCE FOR APPROX. 1 WEEK. PATIENT LEFT RESTING IN BED AND DENIES FURTHER NEED.
--- NOTE | 2019-12-28 22:16 | NUR ---
PATIENT USED TO CALL LIGHT APPROPRIATELY TO USE COMMODE. AMBULATED TO BATHROOM WITH STEADY GAIT. UNMEASURED VOID. PATIENT DENIED DIZZINESS OR PAIN. BECAME TACHY WHILE AMBULATING AND HR RETURNED TO WNL WHEN BACK IN BED. 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 PATIENT LEFT RESTING IN BED DENYING FURTHER NEED.
--- NOTE | 2019-12-29 00:08 | NUR ---
PATIENT USED CALL LIGHT APPROPRIATELY FOR ASSIST TO COMMODE. PATIENT ASSISTED BY NURSE TO BATHROOM WITH STEADY GAIT. TACHY WITH AMBULATION. ALERT AND ORIENTED. PATIENT WINCED WHEN LEGS TOUCHED AND REPORTS 8/10 PAIN DUE TO FIBROMYALGIA. ALSO STATED LUNGS HURT WHEN COUGHING. PATIENT VOIDED 300ML YELLOW URINE. IV SITE WNL. PATIENT ASSISTED WITH REPOSITIONING AND LEFT RESTING IN BED WITH CALL LIGHT IN REACH.
--- NOTE | 2019-12-29 02:28 | NUR ---
PATIENT USED CALL LIGHT APPROPRIATELY FOR ASSISTANCE TO COMMODE. AMBULATED TO BATHROOM WITH NURSE ASSIST. 325 ML CLEAR YELLOW URINE. PATIENT REPORTED PAIN IN SHOULDERS AND HEAD. PATIENT BECAME TACHY AT 140BPM WITH REPOSITIONING AND ENCOURAGED TO RELAX TAKE SLOW BREATHS. HR DECREASED TO 120. PATIENT DENIED FURTHER NEEDS AND LEFT RESTING IN BED.
--- NOTE | 2019-12-29 04:06 | NUR ---
PATIENT USED CALL LIGHT FOR ASSISTANCE TO COMMODE. PATIENT AMBULATED TO BATHROOM WITH NURSE ASSIST. PATIENT REPORTED GENERAL PAIN 10/10 WITH NAUSEA. ZOFRAN ORDERED. PATIENT REPORTED FEELING HOT AND REQUESTED WET WASHCLOTH. TEMP. WAS 98.9. PATIENT LEFT RESTING IN BED WITH CALL LIGHT IN REACH.
--- NOTE | 2019-12-29 04:28 | NUR ---
PATIENT GIVEN OXYCODONE AND TYLENOL FOR PAIN. REFUSED ZOFRAN. PATIENT LEFT RESTING IN BED AND DENIED FURTHER NEEDS.
--- NOTE | 2019-12-29 06:57 | NUR ---
PATIENT ASSISTED TO BATHROOM. STEADY GAIT WHEN AMBULATING. HR IN 120S WHEN TOILETING. PATIENT LEFT RESTING IN CHAIR WITHOUT AND DENIED FURTHER NEEDS.
--- NOTE | 2019-12-29 07:28 | NUR ---
REPORT RECIEVED FROM LUCIANO LOUIS. PT HAS HAD HTN, CARVEDILOL 6.25 MG GIVEN, BP STILL HIGH SYSTOLIC 200'S. TACHYCARDIA RANGING FROM 100-115 AT REST AND UP TO 140 WITH ACTIVITY. PT ON 2 L NC, SATING IN THE 90'S. PT UP IN CHAIR NOW.
--- NOTE | 2019-12-29 09:00 | NUR ---
Patient returns to bed with 1PA. Patient reports chest pain of 6/10, which has been present for five days. Patient denies any alleviating factors, aggravating factor is stress. The pain is sharp. Denies abdominal pain. Reports an aching pain in her right arm and stabbing pain in her left arm. Dr. Chavez updated.
--- NOTE | 2019-12-29 09:33 | NUR ---
PT WAS UP IN CHAIR THIS MORNING FOR APPROX 1.5 HOURS. REPORTS SHE DID NOT SLEEP WELL LAST NIGHT. WAS ABLE TO AMBULATE BACK IN TO BED WITH SBA. BP'S LAST NIGHT RAN HIGHER UP TO 200 SYSTOLIC. BP THIS A.M. WAS 197/73 HR 105. PT C/O INTERMITTENT HEADACHES POSSIBLY R/T HIGH BP. REQUESTED HEAT PACK FOR STERNAL PAIN THAT IS NOT NEW-ONSET. RATED CHEST PAIN 6/10 THAT STARTED 5 DAYS AGO, REPORTS IT IS A CRAMPING LIKE PAIN THAT RADIATES TO RIGHT ARM. DENIES NUMBNESS OR TINGLING TO NECK OR JAW. DID SAY THAT SHE HAD SOME NAUSEA OVERNIGHT BUT REPORTS THAT IT WENT AWAY. REPORTS INTERMITTENT SOB WHEN ON ROOM AIR. PUT ON 1 L O2 VIA NC AND IS CURRENTLY SATING 96%. BG THIS AM WAS 227, SCHEDULED HUMALOG 12 UNITS WAS GIVEN BUT HELD SS HUMALOG D/T PT REFUSING BREAKFAST. PT REPORTS HAVING NO APPETITE FOR THE LAST 2 DAYS. DONAVON LOUIS, ENCOURAGED PT TO TRY TO EAT TO PROMOTE STRENGTH AND HEALING BUT PT STILL REFUSED, SAYS "NOTHING SOUNDS GOOD." BREATHING AND ACAPELLA TX COMPLETED BY RT THIS MORNING. WILL NOTIFY DR. MCGHEE ABOUT CHEST PAIN.
--- NOTE | 2019-12-29 10:30 | NUR ---
PT IN BED THIS MORNING RESTING, UNABLE TO GET GOOD SLEEP. DR. MCGHEE IS AWARE OF PT'S HIGH BP'S AND INCREASED HR. NO NEW ORDERS AT THIS TIME, WILL CONTINUE TO MONITOR.
--- NOTE | 2019-12-29 12:00 | NUR ---
PT WAS ABLE TO AMBULATE TO THE BATHROOM. NO TROUBLES VOIDING, URINE CLEAR, YELLOW. PT REPORTED MINOR SOB WITH AMBULATION, RN INCREASED 02 FROM 1 L TO 2 L NC. LR INFUSION COMPLETED. PT REPORTS PAIN STILL UNRELIEVED AND 01/14. WILL DISCUSS PAIN MEDICATION SCHEDULE WITH DR. MCGHEE. PT ABLE TO EAT 100% OF SOUP FOR LUNCH.
--- NOTE | 2019-12-29 13:34 | NUR ---
Dr. Chavez in room to assess patient and discuss POC. Right radial wrist BP taken, 140/67 (87). Patient 93% on RA. New orders acknowledged. Medications given, water refreshed. Patient denies further needs at this time. Call light within reach.
--- NOTE | 2019-12-29 14:09 | NUR ---
UNABLE TO VISIT WITH PT IN PERSON DUE TO PRECAUTIONS. CONNECTED WITH PT THROUGH DOOR. GAVE BLESSING AND WILL FOLLOW ABLE
--- NOTE | 2019-12-29 14:56 | EKG ---
[facility] [address] [facility] [place], [place] [address] Signed Normal sinus rhythm Normal ECG When compared with ECG of 08-DEC-2019 08:50, No significant change was found Confirmed by CASSIDY MCGHEE MD ([id number]) on 12/29/2019 2:56:38 PM Electronically Signed By: CASSIDY MCGHEE MD 12/29/19 1456 PATIENT NAME: FEDERICO SALMON Electrocardiogram DATE OF : 63 PHYSICIAN: CASSIDY MCGHEE MD REPORT #: [id number] REPORT IS CONFIDENTIAL AND NOT TO BE RELEASED WITHOUT AUTHORIZATION
--- NOTE | 2019-12-29 15:11 | NUR ---
PT CALLS APPROPRIATELY FOR ASSISTANCE. AMBULATED TO THE BATHROOM WITH RN THERE FOR SBA, TOLERATED WELL. PT REMAINS ON 1 L O2 VIA NC. PT WAS ABLE TO EAT FRUIT AND VEGGIE TRAY PER PT REQUEST. DENIES N/V. RECIEVED OXCODONE 5 MG @ 1320 AND REPORTS BLE PAIN HAS DECREASED TO 5/10. BP'S HAVE IMPROVED WITH CUFF PLACEMENT TO RIGHT WRIST. CONTINUING TO MONITOR. CALL LIGHT WITHIN REACH.
--- NOTE | 2019-12-29 16:15 | NUR ---
Patient up to toilet, 300 mls of yellow urine and large, formed BM produced. Patient returns to chair independently, steady on feet. Patient SOB with increasing WOB noted. 2LNC put in place, SpO2 in the upper 90's. Scheduled neb tx given. Shower cap provided, bed bath given. IV abx hung and infusing at 200 mls/hr. Vital signs taken, assessment complete. Patient reports pain of 8/10, generalized. Patient states "I live my life at this level of pain, I'm used to it." Ice provided per patient request. BG of 210, 5 units of insulin given per SS. Dinner ordered. Patient denies further needs, call light within reach.
--- NOTE | 2019-12-29 16:44 | NUR ---
Spoke by Georgiana by phone as she is pending covid. She states she cont. to live at home with her spouse. She has adult daughter x 3. She is on home 02 at [address], has a walker, cane, and cpap. She is having a ramp installed. She has a state paid cg who works with her daily. She denies needs at this time, has not been feeling well, covid is pending. Discussed I will check in on her daily by phone. She plans on dc to home.
--- NOTE | 2019-12-29 17:56 | NUR ---
CALL PLACED TO [employer] DUE TO DELAY IN COVID RESULTS. VERBAL RESULT OF NEGATIVE GIVEN TO THIS RN. REPORTED TO PRIMARY RN
--- NOTE | 2019-12-29 18:09 | NUR ---
NEGATIVE COVID RESULT CALLED TO DR. MCGHEE. PT ATE A GOOD DINNER. UP TO BATHROOM AFTER, VOIDED 300 MLS OF CLEAR, YELLOW URINE. SMALL AMOUNT OF SEROSANGIUNOUS DRAINAGE NOTED FROM AREA OF DRAIN. PT ABLE BACK TO BED WITH EASE. PT'S VISITING IN ROOM NOW.
--- NOTE | 2019-12-29 19:46 | NUR ---
PATIENT ASSESSMENT COMPLETED. PATIENT IV SITES SALINE LOCKED AND WNL. PATIENT ASSISTED WITH AMBULATING FROM CHAIR TO BED. TOLERATED WELL. PATIENT REPORTED RUQ PAIN 8/10 AND STATED SHE GETS THIS PAIN AT HOME FROM HER LIVER DISEASE. PATIENT REFUSED ZOFRAN. WILL CONTINUE TO MONITOR NAUSEA. PATIENT LEFT RESTING IN BED WITH CALL LIGHT IN REACH.
--- NOTE | 2019-12-29 21:36 | NUR ---
PATIENT MEDS GIVEN AND BLOOD GLUCOSE CHECKED. NYSTATIN POWDER APPLIED UNDER BREASTS AFTER WIPING WITH A WET WASHCLOTH. PATIENT LEFT RESTING IN BED WITH CALL LIGHT IN REACH.
--- NOTE | 2019-12-29 22:33 | NUR ---
PATIENT USED CALL LIGHT APPROPRIATELY FOR ASSISTANCE TO VOID. AMBULATED TO COMMODE BUT COULD NOT VOID. PATIENT LEFT RESTING IN BED AND DENIED FURTHER NEEDS.
--- NOTE | 2019-12-29 23:06 | NUR ---
PATIENT USED CALL LIGHT APPROPRIATELY TO REQUEST ASSISTANCE TO VOID. AMBULATED TO BATHROOM WITH STEADY GAIT. VOIDED 250 CLEAR YELLOW URINE. LEFT RESTING IN BED WITH CALL LIGHT IN REACH.
--- NOTE | 2019-12-30 | NUR ---
PATIENT ASSESSMENT COMPLETED. PATIENT REPORTED 8/10 GENERALIZED PAIN. GIVEN PRN OXYCODONE. PATIENT DENIED NAUSEA AND RUQ PAIN. IV SITES WNL. PATIENT LEFT RESTING IN BED WITH CALL LIGHT IN REACH.
--- NOTE | 2019-12-30 01:22 | NUR ---
PATIENT USED CALL LIGHT APPROPRIATELY TO REQUEST BLANKETS. PATIENT STATED HER PAIN REMAINED 8/10 GENERALIZED. PATIENT LEFT RESTING IN BED AND DENIED FURTHER NEEDS.
--- NOTE | 2019-12-30 02:58 | NUR ---
PATIENT AMBULATED TO BATHROOM. STEADY GAIT. PATIENT REPORTS 9/10 PAIN. REFUSED TYLENOL AND HEAT PACK. ASSISTED WITH REPOSITIONING AND LEFT RESTING IN BED WITH CALL LIGHT IN REACH.
--- NOTE | 2019-12-30 03:12 | NUR ---
PATIENT REQUESTED 2 ICE PACKS AND PLACED THEM ON THIGHES. STATED THAT HER KNEES AND LEGS WERE ACHING AND 8/10 PAIN. ASSISTED WITH REPOSITIONING WITH PILLOWS. PATIENT RESTING IN BED WITH CALL LIGHT IN REACH.
--- NOTE | 2019-12-30 03:53 | NUR ---
PATIENT REPORTED CONTINUING ACHING LEG PAIN AND REQUESTED TO AMBULATE IN THE HALLWAY. PATIENT BECAME TACHY WITH 128 HR WITH AMBULATION. PATIENT RETURNED TO ROOM AND ASSESSMENT COMPLETED. LUNGS CLEAR THROUGHOUT. IV SITES WNL. PATIENT RESTING IN CHAIR WITH CALL LIGHT IN REACH.
--- NOTE | 2019-12-30 04:19 | NUR ---
PATIENT ASSISTED BACK TO BED. REPORTED WORSENING BACK PAIN WHILE SEATED IN CHAIR. PATIENT ASKED FOR AND RECIEVED CHICKEN BROTH. ICE PACKS PLACED BY PATIENT ON ABDOMEN. PATIENT STATED "I FEEL BLOATED" AND REPORTED SHE SOMETIMES HAS EDEMA IN RUQ DUE TO LIVER. ABDOMEN SOFT AND PATIENT DENIES TENDERNESS. WILL CONTINUE TO MONITOR. PATIENT LEFT RESTING IN BED WITH CALL LIGHT IN REACH.
--- NOTE | 2019-12-30 06:45 | NUR ---
PATIENT AMBULATED TO BATHROOM TO VOID 500ML CLEAR YELLOW URINE. TOLERATED WELL. PATIENT STATED THAT LEG PAIN HAS IMPROVED AND RATED IT 6/10. PATIENT GIVEN ICE PACK FOR ABDOMEN. PROTONIX GIVEN. PATIENT LEFT RESTING IN BED WITH CALL LIGHT IN REACH.
--- NOTE | 2019-12-30 07:30 | NUR ---
PATIENT SHIFT REPORT RECIEVED FROM [employer] REMOTE SENSING SCIENTIST RN. PATIENT RESTING WELL AT THIS TIME. PATIENT CALLS APPROPRIATELY. WILL CONTINUE TO CLSOELY MONITOR.
--- NOTE | 2019-12-30 09:00 | NUR ---
PATIENT SHIFT ASSESSMENT COMPLETED. PATIENT BREATH SOUNDS CLEAR AND DIMINISHED. PATIENT IS ON 2L NC AT THIS TIME WITH SPO2 99%. PATIENT REPORT SHE IS USUALLY ON 2-3L CHRONIC. NO SOB. OCC DRY COUGH. BOWEL TONES ACTIVE. BREAKFAST ORDERED AND AT THE BEDSIDE. NO OTHER NEEDS AT THIS TIME. WILL CONTINUE TO CLOSELY MONITOR.
[2019-12-30] MEDS ORDERED: XIFAXAN550 MG PO (09:52)
[2019-12-30] MEDS ORDERED: NEURONTIN300 MG PO (09:53)
[2019-12-30] MEDS ORDERED: PROMETHAZINE12.5 M1 PO (09:59)
--- NOTE | 2019-12-30 10:15 | NUR ---
PATIENT UP TO THE BATHROOM AND GOWN CHANGED PER REQUEST. PATIENT IS CERY POLITE. PATIENT STATES PAIN IS BETTER THAN IT WAS THIS AM. ICE PACK PROVIDED PER REQUEST FOR HER HEAD AND LEGS. WILL CONTINUE TO CLSOELY MONITOR.
[2019-12-30] MEDS ORDERED: SUCRALFATE1 GM PO (10:31)
[2019-12-30] MEDS ORDERED: CONSTULOSE10 GM/15 M PO (10:32)
[2019-12-30] MEDS ORDERED: HYDROXYZINE HCL25 MG PO (10:33)
--- NOTE | 2019-12-30 10:36 | NUR ---
MED REC COMPLETE
--- NOTE | 2019-12-30 11:24 | NUR ---
PATIENT RESTING IN BED. PATIENT HAS THE PHONE AND MENU TO ORDER LUNCH. ICE PACKS REFILLED PER REQUEST. NO OTHER NEEDS AT THSI TIME. ZAYDA WILCOX TO CLOSELY MONITOR.
--- NOTE | 2019-12-30 12:30 | NUR ---
PATIENT EATING LUNCH AT THIS TIME. FRESH WATER PROVIDED AND FRESH ICE PACKS PER PATIENT REQUEST. KWAME MACHADO IN REACH. WILL CONTINUE TO CLOSELY MONITOR.
--- NOTE | 2019-12-30 13:04 | NUR ---
PT TESTED NEG FOR COVID. ABLE TO VISIT TODAY. PT EATING LUNCH, NOT TOO INTERESTED. SEEMED PLEASED TO SEE ME, SAID SHE DID NOT NEED HER [place] CONTACTED. PT SHARED THAT HER LIVER IS SHUTTING DOWN, ALMOST MATTER OF FACT WAY. GAVE ENCOURAGEMENT, PRAYED FOR PT. WILL FOLLOW UP
--- NOTE | 2019-12-30 14:00 | NUR ---
MD MCGHEE HERE TO SEE PATIENT. PER MD MCGHEE PATIENT WILL TRANSFER TO THE MEDICAL FLOOR TODAY WITH NO TELE. ASSISTED PATIENT TO HER SIDE SO MD MCGHEE COULD INSPECT LEONILA DRAIN PLACED BY MD PATEL BACK IN JUNE PER PATIENT. SITE IS C/D/I AND NO REDDNESS OR DRAINAGE NOTED. PATIENT NOW RESTING IN BED. NO FURTHER NEEDS AT THIS TIME. WILL CONTINUE TO CLOSELY MONTIOR.
--- NOTE | 2019-12-30 15:11 | NUR ---
Pt brought to unit by Lorenza LOUIS and Padmaja LOUIS from CCU. Pt alert and oriented x3. Pt reports 8/10 pain, no nausea. Pt vitals taken and assessment completed, BP 144/64 (84), HR 95, RR20, temp 99.0 F, 98% o2 on 2L NC. Both IVs assessed and the L IV dressing changed by Eri LOUIS. Pt in bed, with new ice packs for pain and comfort, side rails up, call light within reach.
--- NOTE | 2019-12-30 15:17 | NUR ---
TRANSFERED PATIENT TO ROOM 114 VIA BED. PATIENT TOLERATED WELL. PATIENT REPORT GIVEN TO LETITIA LOUIS. ALL QUESTIONS ANSWERED. ALL BELONGINGS SENT WITH PATIENT. RANDY AND LETITIA IN ROOM 114 UPON ARRIVAL TO ROOM AND RESUMING CARE AT THIS TIME.
--- NOTE | 2019-12-30 15:40 | NUR ---
e mail system administrator of pantoprazole per orders. Pt able to take med without difficulty. Pt reports 8/10 pain and is aware of next time frame for PRN pain medication. Pt reports no further needs at this time. Pt left lying in bed, ice packs on her head and abdomen, side rails up, call light and side table within reach.
--- NOTE | 2019-12-30 17:00 | NUR ---
DINNER ORDER NEEDED. THIS RN TO ROOM. PT RESTING WITH EYES CLOSED, AWAKENS TO MOVEMENT IN ROOM. PT ASSISTED WITH PLACING DINNER ORDER. BLOOD SUGAR TAKEN, = 213. PT STATES "OH, THAT'S GOOD FOR ME." PT REPORTS THAT SHE DOES NOT TAKE HER BLOOD SUGARS AT HOME "UNLESS I FEEL REALLY HIGH OR SOMETHING." PT REPORTS SHE DOES USE INSULIN AT HOME. NO ADDITIONAL REQUESTS OR COMPLAINTS. CALL LIGHT WITHIN REACH. BED RAILS UP.
--- NOTE | 2019-12-30 17:20 | NUR ---
Entered pt room for evening med pass and check in. Pt lying in bed, side rails up, table within reach. Pt was given all meds as ordered including Lispro insulin along with some reinaldo crackers to tide her over until her dinner arrives. Pt was given a refill on water and given her PRN pain med for 9/10 pain. Pt reports no further needs at this time. Pt left lying in bed, side rails up, side table and call light within reach, at bedside.
--- NOTE | 2019-12-30 18:00 | NUR ---
Pt admitted to the unit today from CCU for pneumonia. Pt is a SBA and calls appropriately to use the bathroom. Pt is tolerating a 60g carb diet. Pt on 2-3L NC oxygen chronically (2 while resting, 3 to ambulate). Pt is in 6/10 constant full-body pain at baseline (hx of fibromyalgia). Pt has rectal abcess drain, no drainage this shift, surgical consult placed. Glucose checks WM and Bedtime. Scheduled nebs. Voiding quantity sufficient.
--- NOTE | 2019-12-30 18:54 | NUR ---
Entered pt room for call light, pts IV pump was alarming. I turned off the alarm, and disconnected her IV. Pt reports 10/10 pain even after PRN narcotic given. I offered her PRN tylenol, and she refused. I refilled her ICE packs to help with pain. Pt reports no further needs at this time. Pt left lying in bed, call light and side table within reach.
--- NOTE | 2019-12-30 20:14 | NUR ---
AWAKE, WATCHINT TV, O2 2LNC, RT TX. LUNGS WITH CRACKLES R MORE THAN LEFT LL. NO C/O PAIN OR SOB.
--- NOTE | 2019-12-30 21:30 | NUR ---
IN ROOM TO COSIGN INSULIN. PT DENIES NEEDS. SHAVONNE LOUIS IS NOW IN ROOM WITH PT.
--- NOTE | 2019-12-30 22:33 | NUR ---
Up to br, minimum of assist, on roolm air, places O2 back on at 3L NC, will decrease to 2L after a few minutes, slight sob,"I know it reaches to the br, i do not need iot, only on returning"
--- NOTE | 2019-12-30 23:37 | NUR ---
RESTING, O2 2LNC, NO DISTRESS, FLUIDS AND CALL LIGHT AT BEDSIDE
--- NOTE | 2019-12-31 01:52 | NUR ---
RESTING, NO DISTRESS, ON 2L NC, CALL LIGHT AND FLUIDS AT BEDSIDE
--- NOTE | 2019-12-31 02:23 | NUR ---
UP TO BR, ROOM AIR, VOIDED, BACK TO BED, O2 3L NC ON RETURN, DOWN TO 2L AFTER A FEW MINUTES, FRESH WATER AND ICE PACKS FOR BACK. REPOSITIONS SELF IN BED. COOP WITH ASSESSMENT
--- NOTE | 2019-12-31 04:33 | NUR ---
Up to br with minimum of assist, O2 2LNC when in bed, and 3L onreturn to bed. tachy on return 116bpm. R24 sats 91-93%. C/o 9/10 generalized pain, medicated with oxycodone 5mg po. turns self in bed
--- NOTE | 2019-12-31 06:24 | NUR ---
awakes easily, no further c/o abd or generalized pain, no emesis, o2 2lNC. turns in bed
--- NOTE | 2019-12-31 07:07 | NUR ---
UP TO BR, VOIDED, BACK TO BED, TOLERATED WELL, o2 2L nc AT THIS TIME
--- NOTE | 2019-12-31 07:20 | NUR ---
PT RESTING IN SEMIFOWLERS POSITION IN BED EYES CLOSED RESPIRATIONS EVEN AND UNLABORED AT 18 PT APPEARS TO BE SLEEPING COMFORTABLY. CALL LIGHT AND H2O IN REACH. REPORT RECEIVED FROM BENITO KANG RN.
--- NOTE | 2019-12-31 09:45 | NUR ---
COVID SAMPLE COLLECTED ,S ENT TO INCYTE , NO COMPLICATIONS
--- NOTE | 2019-12-31 10:28 | NUR ---
PT REPORTS 5/10 PAIN PRN TYLENOL ADMINISTERED. CALL LIGHT AND H2O IN REACH. NO FURTHE RNEEDS OR CONCERNS VOICED.
[2019-12-31] MEDS ORDERED: CEFPODOXIME PR200 MG PO (11:14)
[2019-12-31] MEDS ORDERED: LANTUS100 UNITS/ SUB-Q (11:17)
[2019-12-31] MEDS ORDERED: HUMALOG100 UNIT/2 SUB-Q (11:17)
[2019-12-31] MEDS ORDERED: CARVEDILOL6.25 MG PO (11:18)
--- NOTE | 2019-12-31 11:35 | NUR ---
PT ALERT, ORIENTED. HER HAD JUST LEFT. SHE IS SOMEWHAT DISCOURAGED, SAID SHE SAW H G.DAUGHTER AND WAS VERY IMPORTANT FOR PT. OFFERED COMFORT AND HAD PRAYER WITH PT. PT STATED SHE IS TO DC TODAY
--- NOTE | 2020-01-03 09:09 | CONS ---
[facility] [address], [place] [address] Signed DATE OF CONSULTATION: 12/31/2019 PROBLEM: Persistent left perianal seton. HISTORY: This is a 54-year-old white woman, who was recently admitted by Dr. Mcghee on 12/29/2019, with upper respiratory infection, highly suspect for COVID-19 disease. She has numerous underlying comorbidities including morbid obesity, underlying pulmonary disease, and cirrhosis of the liver. She underwent incision and drainage of the left perirectal abscess in May of this year by me. Placement of the yellow vessel loop seton was undertaken to assist in her drainage problem. She did not return for followup in the office as planned in part related to COVID pandemic, also due to other personal issues. Recent admission has been undertaken by Dr. Mcghee and COVID-19 testing has shown her to have no sign of COVID-19 on tests that have been performed. Her pulmonary status is now improved as well. I was asked by Dr. Mcghee to see her in relation to the left perianal drain that remains. She tells me she has had no significant problems related to the persistent drain. She has had episodic bleeding and drainage, but no inflammation, edema, or signs of infection in the past. REVIEW OF SYSTEMS: She denies any shortness of breath at this time. Her accompanies her, who testifies to this as well. She has no abdominal pain or perianal pain. PHYSICAL EXAMINATION: GENERAL: A morbidly obese white woman, who looks to be in no acute distress at this time. VITAL SIGNS: Her temperature is 98.2, pulse 95, blood pressure 125/81. CHEST: Shows normal respiratory excursion. ABDOMEN: Quite, markedly obese. Uncertain if there is ascites. No sign of tense ascites, however. EXTREMITIES: Lower extremities show no clubbing, cyanosis, or edema. Examination of the perineum shows a yellow vessel loop well positioned in the left perianal area. This was removed without incident with the nurse in attendance throughout the procedure. Electronically Signed By: ANKIT PATEL MD 01/03/20 0909 PATIENT NAME: FEDERICO SALMON CONSULTATION DATE OF : 63 REPORT #: [id number] PHYSICIAN: ANKIT PATEL MD PCP: EMERSON RICHARD PAC REPORT IS CONFIDENTIAL AND NOT TO BE RELEASED WITHOUT AUTHORIZATION [facility] [address] [place] [id number] Signed ASSESSMENT: The yellow vessel loop seton provided good drainage for her wally-rectal abscess and is no longer needed and on that basis has been removed. She should maintain good perianal hygiene, sitz baths as able and needed and if there are any problems, I am happy to see her again. It is noted that her white count is 8.5, though was elevated at 14.5 at admission, almost certainly unrelated to the persistent perianal seton. MD PANCHO Shanks/NICK /[id number] cc: Cassidy Mcghee MD Copies: CASSIDY MCGHEE MD ~ Electronically Signed By: ANKIT PATEL MD 01/03/20 0909 PATIENT NAME: FEDERICO SALMON CONSULTATION DATE OF : 63 REPORT #: [id number] PHYSICIAN: ANKIT PATEL MD PCP: EMERSON RICHARD PAC REPORT IS CONFIDENTIAL AND NOT TO BE RELEASED WITHOUT AUTHORIZATION
== END 2019-12-31 12:10 | disposition home or self-care (01) | DRG 194 ==
LOC: ED 12:56 → CCU 17:05 → MS 12-30 15:29
PROVIDERS: ADMIT Internal Medicine; ATTEND Internal Medicine
PROC: 0DPDX0Z Removal of Drainage Device from Lower Intestinal Tract, External Approach (ICD-10-PCS; principal; 2019-12-31)
DX: J15.9 Unspecified bacterial pneumonia (principal); J96.11 Chronic respiratory failure with hypoxia; N17.9 Acute kidney failure, unspecified; K76.6 Portal hypertension; Z68.43 Body mass index [BMI] 50.0-59.9, adult; Z20.828 Contact with and (suspected) exposure to other viral communicable diseases; K21.9 Gastro-esophageal reflux disease without esophagitis; G47.33 Obstructive sleep apnea (adult) (pediatric); M79.5 Residual foreign body in soft tissue; K74.60 Unspecified cirrhosis of liver; K75.81 Nonalcoholic steatohepatitis (NASH); E11.65 Type 2 diabetes mellitus with hyperglycemia; G40.909 Epilepsy, unspecified, not intractable, without status epilepticus; M79.7 Fibromyalgia; J98.4 Other disorders of lung; E66.01 Morbid (severe) obesity due to excess calories; Z66 Do not resuscitate; Z88.5 Allergy status to narcotic agent; Z79.01 Long term (current) use of anticoagulants; Z86.718 Personal history of other venous thrombosis and embolism; Z86.711 Personal history of pulmonary embolism; Z79.4 Long term (current) use of insulin; Z79.891 Long term (current) use of opiate analgesic; Z79.51 Long term (current) use of inhaled steroids; Z79.899 Other long term (current) drug therapy
CPT/HCPCS: 36415; 51798; 71045; 80048; 80053; 83605; 83735; 83880; 84484; 85007; 85025; 85032; 93005; 93010; 94640; 94667; 94668; 94760; 99285-25; C9803; J0696; J1815; J7121

== ENCOUNTER 2020-01-02 19:56 | Emergency (ER) | payer MEDICARE, OTHER ==
[~2020-01-02] VITALS: Ht 167.6 cm; Wt 147.4 kg
[~2020-01-02 19:56] MED LIST changes: +CARVEDILOL6.25 MG PO; +CEFPODOXIME PR200 MG PO; +CONSTULOSE10 GM/15 M PO; +HYDROXYZINE HCL25 MG PO; +NEURONTIN300 MG PO; +XIFAXAN550 MG PO
== END 2020-01-02 20:30 | disposition home or self-care (01) ==
LOC: ED 19:56
DX: R07.89 Other chest pain (principal); E11.9 Type 2 diabetes mellitus without complications; J45.909 Unspecified asthma, uncomplicated; Z88.5 Allergy status to narcotic agent; Z79.899 Other long term (current) drug therapy; Z79.4 Long term (current) use of insulin; K72.90 Hepatic failure, unspecified without coma
CPT/HCPCS: 96372; 99284-25; J1885

== ENCOUNTER 2020-01-17 13:02 | Emergency (ER) | payer MEDICARE, OTHER ==
[~2020-01-17] VITALS: Ht 167.6 cm; Wt 147.4 kg
--- OUTSIDE RECORDS SUMMARY | ~2020-01-17 | XMS | Encounter Summary ---
Demographics + + + | Address | [address] | | | [place] [address] | + + + | Home Phone | | + + + | Preferred Language | Unknown | + + + | Marital Status | | + + + | Alevism Affiliation | Unknown | + + + | Race | White | + + + | Ethnic Group | Not or | + + + Author + + + | Author | [facility] | | | and [place] | + + + | Organization | [facility] | | | and [...] Team Providers + +------+ + | Care Construction Trades Teacher Name | Role | Phone | + +------+ + | Mynor Kam MD | PCP | | + +------+ + Encounter Details +--------+ + + + + | Date | Type | Department | Care Team | Description | +--------+ + + + + | 11/08/ | Orders Only | [facility] | Conversion | | | 2014 | | CONVERSION DEP [address] | Transaction, | | | | | [address]LA[address]ON | Provider Unknown | | | | | [place] | [phone] | | | | | [address] | | | | | | [phone] | | | +--------+ + + + [...] | +--------+ + + + + | 01/19/ | Virtual | Pulmonology | Matt, | | | 2019 | Office | | Esperanza Arora, | | | | Visit | | MD [address] | | | | | | [place], | | | | | | [place] [address] | | | | | | [phone] | | | | | | | | +--------+ + + + + | 03/22/ | Office | Neurology | Elaine Andrews, | | | 2019 | Visit | | MD [address] | | | | | | [address] | | | | | | [place] [address] | | | | | | [phone] | | | | | | | | +--------+ + + + + documented as of this encounter Visit Diagnoses Not on filedocumented in this encounter"
--- OUTSIDE RECORDS SUMMARY | ~2020-01-17 | XMS | Encounter Summary ---
Demographics + + + | Address | [address] | | | [place] [address] | + + + | Home Phone | | + + + | Preferred Language | Unknown | + + + | Marital Status | | + + + | Hindu Affiliation | Unknown | + + + | Race | White | + + + | Ethnic Group | Not or | + + + Author + + + | Author | [facility] | | | and [place] | + + + | Organization | [facility] | | | and [...] Team Providers + +------+ + | Care Supervisor Tank Storage Name | Role | Phone | + [...] Description | +--------+--------+ + + + | 04/05/ | Refill | [facility] | Elaine Andrews, | Medication Refill | | 2019 | | NEUROLOGY [address] | MD [address] | | | | | [address] [place] | [address] | | | | | [place], [place] | [place] [address] | | | | | [address] | [phone] | | | | | [phone] | | | +--------+--------+ + + + [...] this encounter Miscellaneous Notes Telephone Encounter - Lashaun Scott Solid Waste Manager - 04/05/2019 1:19 PM PSTL ast visit: 08/13/2018 Next visit: 05/27/2019 Last filled: 10/29/18 Number of refills: 3 Per last note: Gabapentin 300mg Take 4 caps morning, continue 3 caps at noon and 3 caps at night. P STdocumented in this encounter Plan of Treatment +--------+ [...] | | | | | | [place] [address] | | | | | | [phone] | | | | | | | | +--------+ + + + + | 03/22/ | Office | Neurology | Elaine Andrews, | | | 2020 | Visit | | MD [address] | | | | | | [address] | | | | | | [place] [address] | | | | | | [phone] | | | | | | | | +--------+ + + + + documented as of this encounter Visit Diagnoses Not on filedocumented in this encounter"
--- OUTSIDE RECORDS SUMMARY | ~2020-01-17 | XMS | Encounter Summary ---
Demographics + + + | Address | [address] | | | [place] [address] | + + + | Home Phone | | + + + | Preferred Language | Unknown | + + + | Marital Status | | + + + | Sabianism Affiliation | Unknown | + + + | Race | White | + + + | Ethnic Group | Not or | + + + Author + + + | Author | [facility] | | | and [place] | + + + | Organization | [facility] | | | [...] Team Providers + +------+ + | Care Percussion Welding Machine Operator Name | Role | Phone | + +------+ + | Mynor Kam MD | PCP | | + +------+ + Encounter Details +--------+ + + + + | Date | Type | Department | Care Team | Description | +--------+ + + + + | 07/22/ | Telephone | [facility] | Enid Kaye | | | 2019 | | NEUROLOGY [address] | MD [address] | | | | | [address] | [facility] [address] | | | | | [place], [place] | [place] | | | | | [address] | [address] | | | | | [phone] | | | +--------+ + + + [...] | | | | | | [place] | | | | | | [place] [address] | | | | | | [phone] | | | | | | | | +--------+ + + + + | 03/22/ | Office | Neurology | Elaine Andrews, | | | 2019 | Visit | | MD [address] | | | | | | [address] | | | | | | [place] [address] | | | | | | [phone] | | | | | | | | +--------+ + + + + documented as of this encounter Visit Diagnoses Not on filedocumented in this encounter"
--- OUTSIDE RECORDS SUMMARY | ~2020-01-17 | XMS | Encounter Summary ---
Demographics + + + | Address | [address] | | | [place] [address] | + + + | Home Phone | | + + + | Preferred Language | Unknown | + + + | Marital Status | | + + + | Latter-Day Affiliation | Unknown | + + + | Race | White | + + + | Ethnic Group | Not or | + + + Author + + + | Author | [facility] | | | and [place] | + + + | Organization | [facility] | | | [...] Team Providers + +------+ + | Care Associate Dean Of Women Name | Role | Phone | + [...] | | | | [place] | [phone] | | | | | [address] | | | | | | [phone] | | | +--------+ + + + [...] [place], | | | | | | [place] [address] | | | | | | [phone] | | | | | | | | +--------+ + + + + | 03/22/ | Office | Neurology | lEaine Andrews, | | | 2019 | Visit | | MD [address] | | | | | | [address] [address] | | | | | | [place] [address] | | | | | | [phone] | | | | | | | | +--------+ + + + + documented as of this encounter Visit Diagnoses Not on filedocumented in this encounter"
--- OUTSIDE RECORDS SUMMARY | ~2020-01-17 | XMS | Encounter Summary ---
Demographics + + + | Address | [address] | | | [place] [address] | + + + | Home Phone [...] + + + | Author | [facility] | | | and [place] | + + + | Organization | [facility] | | | [...] Team Providers + +------+ + | Care Employment Adjudicator Name | Role | Phone | + +------+ + | Mynor Kam MD | PCP | | + +------+ + Reason for Visit + +--------+ + | Reason | Onset | Comments | | | Date | | + +--------+ + | Appointment | 10/18/ | | | | 2020 | | + +--------+ + Encounter Details +--------+ + + + + | Date | Type | Department | Care Team | Description | +--------+ + + + + | 10/18/ | Telephone | [facility] | Elaine Andrews, | Appointment | | 2020 | | NEUROLOGY [address] | [address] | | | | | [address] | [address] | | | | | [place], [place] | [place] [address] | | | | | [address] | [phone] | | | | | [phone] | | | +--------+ + + + [...] Notes Telephone Encounter - Tahir Biggs - 10/19/2019 10:44 AM Bry, is calling [facility] Appointment and would like a call back. Additional Call Details: Calling to [facility] 10/05 No Show/Virtual Visit Appointment. Can be reached at Home Number list in Chart Stated she will be available for calls in about 2 ho urs. If this is a symptom based call, was patient offered triage? Not Applicable If this is a symptom based call and you were unable to immediately transfer the call to a ainsley lloyd manager port was caller made aware that if at [...] [place], | | | | | | [place] [address] | | | | | | [phone] | | | | | | | | +--------+ + + + + | 03/22/ | Office | Neurology | Elaine Andrews, | | | 2019 | Visit | | MD [address] | | | | | | [address] [address] | | | | | | [place] [address] | | | | | | [phone] | | | | | | | | +--------+ + + + + documented as of this encounter Visit Diagnoses Not on filedocumented in this encounter"
--- OUTSIDE RECORDS SUMMARY | ~2020-01-17 | XMS | Encounter Summary ---
Demographics + + + | Address | [address] | | | [place] [address] | + + + | Home Phone | | + + + | Preferred Language | Unknown | + + + | Marital Status | | + + + | Christianity Affiliation | Unknown | + + + | Race | White | + + + | Ethnic Group | Not or | + + + Author + + + | Author | [facility] | | | and [place] | + + + | Organization | [facility] | | | [...] Team Providers + +------+ + | Care Sports Attorney Name | Role | Phone | + +------+ + | Mynor Kam MD | PCP | | + +------+ + Encounter Details +--------+ + + + + | Date | Type | Department | Care Team | Description | +--------+ + + + + | 06/11/ | Orders Only | [facility] | Matt, | | | 2016 | | PULMONOLOGY [address] | Esperanza Arora, | | | | | [address] | [address] | | | | | [place], [place] | [place], | | | | | [address] | [place] [address] | | | | | [phone] | [phone] | | | | | | | [...] [place] | | | | | | [place] [address] | | | | | | [phone] | | | | | | | | +--------+ + + + + | 03/22/ | Office | Neurology | Elaine Andrews, | | | 2019 | Visit | | MD [address] | | | | | | [place] | | | | | | [place] [address] | | | | | | [phone] | | | | | | | | +--------+ + + + + documented as of this encounter Visit Diagnoses Not on filedocumented in this encounter"
--- OUTSIDE RECORDS SUMMARY | ~2020-01-17 | XMS | Encounter Summary ---
Demographics + + + | Address | [address] | | | [place] [address] | + + + | Home Phone | | + + + | Preferred Language | Unknown | + + + | Marital Status | | + + + | Mandaen Affiliation | Unknown | + + + | Race | White | + + + | Ethnic Group | Not or | + + + Author + + + | Author | [facility] | | | and [place] | + + + | Organization | [facility] | | [...] Team Providers + +------+ + | Care Lead Operator Name | Role | Phone | [...] + + | 12/21/ | Virtual | [facility] | Elaine Andrews, | Seizure disorder | | 2019 | Office | NEUROLOGY [address] | [address] | ([facility]) (Primary Dx); | | | Visit | [address] | [address] | Driving safety | | | | [place], [place] | [place] [address] | issue; Chronic | | | | [address] | [phone] | migraine; Memory | | | | [phone] | | loss | +--------+ + + [...] due to COVID-19 pandemic. Service was provided [id number] with the patient via interactive videoconferencing Video [...] consented to participate in a video visit [facility]. The patient confirms they are currently physically [...] She had a virtual visit with her GI/motorcycle assembler Dr Marcio Argueta at [facility] in [place] 12/09/19. She has cirrhosis and hepatic encephalopathy. [...] Possible hepatic encephalopathy as determined by her motorcycle assembler/GI specialist at [facility] in [place]. She is also on on multiple psychoactive [...] experiencing toxic encephalopathy I have counseled her night worker in detail about watching out for seizures [...] Virtual | Pulmonology | Matt, | | 2019 | Office | | Esperanza Arora, | | | | Visit | | MD [address] | | | | | | [place], | | | | | | [place] [address] | | | | | | [phone] | | | | | | | | +--------+ + + + + | 03/22/ | Office | Neurology | Elaine Andrews, | | 2019 | Visit | | MD [address] | | | | | | [address] | | | | | | [place] [address] | | | | | | [phone] | | | | | | | [...]
--- OUTSIDE RECORDS SUMMARY | ~2020-01-17 | XMS | Encounter Summary ---
Demographics + + + | Address | [address] | | | [place] [address] | + + + | Home Phone | | + + + | Preferred Language | Unknown | + + + | Marital Status | | + + + | Jew Affiliation | Unknown | + + + | Race | White | + + + | Ethnic Group | Not or | + + + Author + + + | Author | [facility] | + + + | Organization | [facility] | + + + | Address | [...] Team Providers + +------+ + | Care Procedure Rn Name | Role | Phone | + +------+ + | Erlinda Oneal PA-C | PCP | | + +------+ + Reason for Visit + +--------+ + | Reason | Onset | Comments | | | Date | | + +--------+ + | Pre Transplant | 07/26/ | Intake | | Workup | 2020 | | + +--------+ + Encounter Details +--------+ + + + + | Date | Type | Department | Care Team | Description | +--------+ + + + + | 07/26/ | Telephone | Clinical | Ayana House, | Pre Transplant | | 2020 | | Transplant Services | RN [address] | Workup (Intake) | | | | [address] | [address] | | | | | [place], | [place], [place] | | | | | [place] [address] | [address] | | | | | [phone] | | | +--------+ + + + [...] this encounter Miscellaneous Notes Telephone Encounter - Ayana House RN - 08/05/2019 3:53 PM PDTPatient called, I expla ined the plan and the decision- patient will await her letter and discuss with her referring on 08/12/19 at appointment. P M PDTTelephone Encounter - Ayana House RN - 08/05/2019 12:48 PM PDTPhase: Referral Re moved Letter to referring, PCP and patient. 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 elephone Encounter - Ayana House RN - 08/02/2019 9:35 AM PDTLiver Transp lant Referral Nurse Review: Phase Medical Review MD: Routing to Dr. Thorne to review if patient is a candidate for liver transplant evalua tion. Pre Fuller Brush Man, if a candidate: 1. Push the CT wwo scan from [facility] 06/05/19 New Referral, Notes State: Referred by: OSCAR Ott Age: 53 years old Na MELD: 8 Serum Na: 140 Diagnosis: ODELL, s/p TIPS, Gastric varices, apixaban for thrombus. 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 elephone Encounter - Ciarra Knutson - 07/27/2019 2:23 PM PDTDemographic Intake I would now like to ask you a series of questions; they will not affect your candidacy. 1. Are you a [place] Citizen: Yes 2. Are you a resident: N/A a. If no, did you travel to the [place] primarily for organ transplant: N/A 3. [facility] you receive [facility] the [facility]?: No 4. Have you worked with any other transplant centers: No a. If Yes, Where: 5. Do you live alone: No a. If no, how many other household members do you live with: 1 6. What is your Marital Status: a. What is your Partner s name (If applicable): Amado 7. Do you currently work: No 8. 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 What is the highest level of education you have completed: Some college 10. Current Height: 5'6'' 11. Current Weight: 300lbs 12. What is your preferred spoken language: Taiwanese 13. What is your preferred written language: Taiwanese 14. Are you on dialysis: No 15. Do you have a Preferred Lab: Document in Demographics under Clinical Information 16. Do you have a Preferred Pharmacy: Document in Demographics under Clinical Information elephone Encounter - Ciarra Zuniga - 07/27/2019 10:28 AM PDTTitle: Liver Transplantation Patient Selection Cr iteria I. Indications for Liver Transplantation A. Acute Hepatic Failure 1. Viral 2. Drug/toxin-induced 3. Trauma 4. 5. Metabolic 6. Other unknown B. Chronic Active Hepatitis with Cirrhosis 1. Autoimmune 2. Viral 3. Non-alcoholic steatohepatitis 4. Veno-occlusive disease 5. Budd-Chiari syndrome 6. Choledochal cyst with liver failure 7. Polycystic liver with associated renal failure 8. Failure of a previously transplanted liver C. Metabolic Disorders 1. Ruben's disease 2. Hemochromatosis 3. Alpha-1 antitrypsin deficiency 4. Tryosinemia 5. Glycogen storage disease 6. Blyer's disease 7. Galactosemia 8. Protoporphyria 9. Primary oxalosis 10. Familial hypercholesterolemia 11. Sea-blue histiocytosis syndrome 12. Amyloidosis D. Advanced Chronic Liver Disease 1. Primary biliary cirrhosis 2. Secondary biliary cirrhosis 3. Primary sclerosing cholangitis 4. Secondary sclerosing cholangitis 5. Alcoholic cirrhosis 6. Cryptogenic cirrhosis E. Metabolic Liver Disease with Cirrhosis 1. Ruben's disease 2. Hemochromatosis 3. Alpha-1 antitrypsin deficiency 4. Protoporphyria 5. Biliary atresia: extrahepatic, intrahepatic 6. Alagille syndrome 7. Caroli's disease 8. Congenital hepatic fibrosis 9. Crigler-Yvan syndrome 10. Urea Cycle Disorders F. Hepatobiliary Malignancy 1. Hepatoblastoma 2. Hepatocellular carcinoma 3. Metastatic neuroendocrine tumor 4. Hilar Cholangiocarcinoma 5. Hepatic Epithelioid hemangioendothelioma G. Other acute or chronic liver disease that liver transplant is considered the appropriate treatment. II. Absolute Contraindications to Liver Transplantation A. Active sepsis outside the biliary tract. B. Presence of significant organ system failure other than liver, kidney except in the sett ing of fulminant hepatic failure. C. Inability to accept the procedure, understand its nature and cooperate in the medical ca re required following transplantation. D. Angiosarcoma. E. Malignancy outside the liver except neuroendocrine tumors. F. Multi-vessel CAD with greater than 50% occlusion of significant coronary arteries, and p rior CAD requiring CABG. G. Active alcoholism or active substance abuse, including nicotine. III. Conditions that Increase the Risk with Liver Transplantation A. Age over 65. Over this age must have no other significant comorbidities. B. Advanced cardiopulmonary disease or multi-organ system diseases precluding survival of t ransplant. C. Morbid obesity. In general, significant obesity, as indicated by a Body Mass Index (BMI) > 45. 1. Patients with liver disease may have significant fluid overload that could falsely incre ase the BMI in a non-meaningful way. Such patients will be evaluated on an individual basis by the liver transplant team to determine if obesity is a true contraindication to transplan t in that patient. 2. Obesity itself is a significant co-morbid medical condition, and may be a contributing f actor to a denial for liver transplant listing even if the BMI is below 45, for example in t he context of co-morbid diabetes mellitus, hypertension, dyslipidemia, etc. D. Psychosocial or financial issues that could result in inadequate post-transplant care. IV. Reference: [facility] Liver Transplant Program Protocol Handbook, page 25-26. documented in this encounter Plan of Treatment Not on filedocumented as of this encounter Visit Diagnoses Not on filedocumented in this encounter
--- OUTSIDE RECORDS SUMMARY | ~2020-01-17 | XMS | Clinical Summary ---
Demographics + + + | Address | [address] | | | [place] [address] | + + + | Home Phone | | + + + | Preferred Language | Unknown | + + + | Marital Status | | + + + | Sabianist Affiliation | Unknown | + + + [...] Team Providers + +------+ + | Care Territory Service Representative Name | Role | Phone | [...] | the lungs daily. | | | 05/27 | | e | | ol (BREO [...] | | | + + + +---------+------+------+-------+ +---+ + | | Additional | | | InformationPatient | | | taking differently: | | | taking 5 capsules by | | | mouth every morning | | | 6 capsules AT NOON | | | and 6 capsules every | | | evening. Hospital | | | changed, Reported on | | | 12/22/2019 11:44 AM | +---+ + + + +---+---+------+------+-------+ | rifAXIMin | Take 550 mg by mouth | | 0 | | | Activ | | (XIFAXAN) 550 mg | 2 times daily. | | | | | e | | TABS | | | | | | | + + +---+---+------+------+-------+ | tiZANidine | Taking 2 tabs 2 | | 2 | 10/05 | 12/06 | Disco | | (ZANAFLEX) 4 MG | times a day | | | 11/24 | 09/24 | ntinu | | capsule | | | | 17 | 20 | ed | | | | | | | | ([place] | | | | | | | | ent | | | | | | | | Not | | | | | | | | Takin | | | | | | | | g) | + + +---+---+------+------+-------+ Active Problems + + + | Problem [...] | +--------+ + + + + | 01/02/ | Telephone | Pulmonology | Matt, | Other | | 2020 | | | Esperanza Arora, | | | | | | MD | | +--------+ + + + + | 12/27/ | Telephone | Pulmonology | Pam Jeffries RN | Shortness of Breath | | 2019 | | | | | +--------+ + + + + | 12/21/ | Virtual | Neurology | Elaine Andrews, | Seizure disorder | | 2019 | Office | | MD | ([facility]) (Primary Dx); | | | Visit | | | Driving safety | | | | | | issue; Chronic | | | | | | migraine; Memory | | | | | | loss | +--------+ + + + + | [...] | | | + + + + Family History + + +------+ + | Medical History | Relation | Name | Comments | + + +------+ + | Cancer | Mother | | | + + +------+ + | Liver disease | Mother | | | + + +------+ + + +------+--------+ + | Relation | Name | Status | Comments | + +------+--------+ + | Mother | | Alive | | + +------+--------+ + Social History + +-------+ +--------+------+ | [...] | | | Visit | | MD [address] | | | | | | [place], | | | | | | [place] [address] | | | | | | [phone] | | | | | | | | +--------+ + + + + | 03/22/ | Office | Neurology | Elaine Andrews, | | | 2019 | Visit | | MD [address] | | | | | | [place] | | | | | | [place] [address] | | | | | | [phone] | | | | | | | [...] + + | Hemoglobin A1c | | 01/30/20 | | | Screening | 4 | [...] +--------+ +---------+--------+ | MEDICARE | MEDICA | [id number] | 10/06/19 | [phone] | | Medica | | | RE | | 16-Pre | 5 | | re | | | PART A | | sent | | | | | | AND B | | | | | | + +--------+ +--------+ +---------+--------+ | [employer] | [employer] | [id number] | 11/10/19 | [phone] | | Medica | | MEDICAID HMO [...] | Self | [birth year] | [address] | | [place] | meena/Greg | | 1966 | [phone] | [place] | | | [place] | | | [address] (Home) | [address] | + +--------+ +--------+ + + Advance Directives + + + + + | Type | Date Recorded | Patient | Explanation | | | | Executive Manager | | + + + + + | Power of | | | | | Child Care Centre Manager | | | | + + + + + | Advance | | | | | Directive | | | | + + + + +
--- OUTSIDE RECORDS SUMMARY | ~2020-01-17 | XMS | Encounter Summary ---
Demographics + + + | Address | [address] | | | [place] [address] | + + + | Home Phone | | + + + | Preferred Language | Unknown | + + + | Marital Status | | + + + | Congregation Affiliation | Unknown | + + + | Race | White | + + + | Ethnic Group | Not or | + + + Author + + + | Author | [facility] | | | and [place] | + + + | Organization | [facility] | | | [...] Team Providers + +------+ + | Care Patcher Bowling Ball Name | Role | Phone | + +------+ + | Mynor Kam MD | PCP | | + +------+ + Encounter Details +--------+ + + + + | Date | Type | Department | Care Team | Description | +--------+ + + + + | 06/02/ | Orders Only | [facility] | Matt, | | | 2019 | | PULMONOLOGY [address] | Esperanza Arora, | | | | | [address] | [address] | | | | | [place], [place] | [place], | | | | | [address] | [place] [address] | | | | | [phone] | [phone] | | | | | | | [...] [place] | | | | | | [place] [address] | | | | | | [phone] | | | | | | | | +--------+ + + + + | 03/22/ | Office | Neurology | Elaine Andrews, | | | 2019 | Visit | | MD [address] | | | | | | [address] [address] | | | | | | [place] [address] | | | | | | [phone] | | | | | | | | +--------+ + + + + documented as of this encounter Visit Diagnoses Not on filedocumented in this encounter"
--- OUTSIDE RECORDS SUMMARY | ~2020-01-17 | XMS | Encounter Summary ---
Demographics + + + | Address | [address] | | | [place] [address] | + + + | Home Phone | | + + + | Preferred Language | Unknown | + + + | Marital Status | | + + + | Yarsani Affiliation | Unknown | + + + | Race | White | + + + | Ethnic Group | Not or | + + + Author + + + | Author | [facility] | | | and [place] | + + + | Organization | [facility] | | | [...] Team Providers + +------+ + | Care Process Stripper Name | Role | Phone | + +------+ + PCP | Unavailable | + +------+ + Encounter Details +--------+ + + + + | Date | Type | Department | Care Team | Description | +--------+ + + + + | 06/10/ | Emergency | [facility] | Edis Gudino MD | Cough; | | 2013 | | MEDICAL CENTER | [address] | Pneumonia | | | | EMERGENCY CENTER | [place] [address] | | | | | [address] | [phone] | | | | | [place], [place] | | | | | | [address] | | | | | | [phone] | | | +--------+ + + + [...] documented as of this encounter ED Notes Alvaro Mcclain MD - 06/13/2013 4:30 PM PDTFormatting of this note might be different f rom the original. ED Provider Notes by Alvaro Mcclain MD at 06/13/13 6515 Author: Alvaro Mcclain MD Service: (none) Author Type: Physician Filed: 06/13/131843 Date of Service: 06/13/130 Status: Signed Digester Hand: Alvaro Mcclain MD (Physician) Related Notes: Related Note by Everett Bryson PA-C (Physician Returned Goods Inspector - Certified) f iled at 06/13/131633 I have reviewed the note and supervised the mid-level provider. Alvaro Mccalin MD 06/13/131843 Fabiola Naylor PA-C - 06/13/2013 4:30 PM PDT ED Provider Notes by Everett Bryson PA-C at 06/13/131629 Author: Everett Bryson PA-C Service: (none) Author Type: Physician Returned Goods Inspector - Certi fied Filed: 06/13/131633 Date of Service: 06/13/131629 Status: Signed Digester Hand: Everett Bryson PA-C (Physician Returned Goods Inspector - Certified) Related Notes: Cosigned by Alvaro Mcclain MD (Physician) filed at 06/13/131843 Procedures For culture results called patient's the blood culture results which grew and one set GRAM POSITIVE COCCI Patient went to the emergency room in [facility]. Provider stated that this is too e vasile for admission and she currently on the correct antibiotics for the bacteria. And was d ischarged. Patient states she is still not feeling any better. I suggested that she return to the [facility] for reevaluation. Patient states that if she is still not feeling any better by tonight she will return to [facility]. Everett Bryson PA-C 06/13/131633 Edis Ramirez MD - 06/10/2013 8:14 PM PSTFormatting of this note might be different from the origi nal. ED Provider Notes by Edis Gudino MD at 06/10/132013 Author: Edis Gudino MD Service: (none) Author Type: Physician Filed: 06/10/13 2204 Date of Service: 06/10/132013 Status: Signed Digester Hand: Edis Gudino MD (Physician) [facility] Department of Emergency Medicine History of Present Illness Patient Identification Gilma Salmon is a 47 y.o. female. Patient information was obtained from patient. History/Exam limitations: none. Patient presented to the Emergency Department Car Room:05/09 Chief Complaint Chief Complaint Patient presents with Cough "Whenever I cough, I have green looking stuff coming out of my trach, and I feel like it' s ripping inside." 47-year-old female with a cough. Patient has a complicated history of a recent bilateral pn eumonia that led to acute respiratory failure and eventually a tracheostomy placement. The t racheostomy was complicated and was repeated recently. Patient states that for the last week she's had a persistent cough. She's had scattered yellow to green discharge from the trach. She denies any fevers but has had chills. She states that she coughs so hard that her head hurts. She denies any nausea, vomiting, diarrhea. She has not contacted her physician. She's tried her cough medicine with codeine in it with no significant improvement. She's concerne d that she may be developing a bronchitis because whenever she gets bronchitis her head hurt s when she coughs. Primary Care Doctor: MARY VALDEZ Past Medical History Diagnosis Date Poorly controlled diabetes mellitus Morbid obesity with BMI of 45.0-49.9, adult Bronchitis Influenza A (H1N1) 05/02/2013 Acute respiratory failure with hypoxia 05/04/2013 due to influenza PNA DVT (deep venous thrombosis) in thigh; no longer on coumadin Asthma Shingles Ovarian mass Diabetes mellitus type II Sleep apnea Unspecified visual disturbance Past Surgical History Procedure Date Appendectomy Total abdominal hysterectomy Tonsillectomy and adenoidectomy Knee arthroscopy left knee Tracheal surgery 05/11/2013 Procedure: TRACHEOSTOMY; Surgeon: Fabián Novoa MD; Location: [facility] MAIN OR; Service: ENT ; Laterality: N/A; move to OR table, need harmonic scalpel with focus HP, patient [address] Cholecystectomy Breast surgery Tubal ligation Prior to Admission medications Medication Sig Start Date End Date Taking? Authorizing Provider ALBUTEROL IN Inhale 1 puff into the lungs every 4 (four) hours as needed. Historical Pro vider azithromycin (ZITHROMAX) 250 MG tablet Take 250 mg by mouth daily. TAKE TWO TABLETS BY MOUT H NOW then ONE TABLET DAILY DAY 2-5 Historical Provider clindamycin (CLEOCIN) 150 MG capsule Take 300 mg by mouth 3 (three) times daily. Histori christi Provider fluconazole (DIFLUCAN) 100 MG tablet Take 150 mg by mouth daily. Historical Provider HYDROcodone-acetaminophen (NORCO) 5-325 MG per tablet Take 1 tablet by mouth every 4 (four) hours as needed. 05/05/13 Historical Provider HYDROcodone-acetaminophen (NORCO) 5-325 MG per tablet Take 2 tablets by mouth every 4 (four ) hours as needed. Historical Provider insulin glargine (LANTUS) 100 UNIT/ML injection Inject 20 Units into the skin 2 (two) times daily. Indications: Type 2 Diabetes Historical Provider ondansetron (ZOFRAN ODT) 4 MG disintegrating tablet Take 4 mg by mouth every 8 (eight) hour s as needed. Historical Provider Allergies Allergen Reactions Amoxicillin-Pot Clavulanate Other [...] No pertinent family history. Review of Systems Positive for: Cough, headache No fever, chills, nausea or vomiting. No decreased vision, hearing loss, difficult swallowing. No chest pain, abdominal pain, weakness or rash. No difficulty with urination or bowel movements. No other complaints. See HPI for further relevant details. All systems otherwise negative, except as recorded above and as recorded in the HPI. Physical Exam BP 174/8 | Pulse 110 | Temp 97.2 F (36.2 C) | Resp 18 | Ht 1.651 m (5' 5") | Wt 119 kg (262 lb 5.6 oz) | BMI 43.66 kg/m2 | SpO2 96% INTERPRETATION OF VITALS Pulse Oximetry interpretation: Normal Hypertensive. Tachycardic Otherwise normal PHYSICAL EXAM Appearance: Alert. No acute distress. Head: Normal external exam. Eyes: EOMI, PERRL, no scleral icterus. ENT: Normal external ENT inspection. Neck: Supple. FROM. No purulent discharge from surrounding the trach. Incision clean and dry. CVS: Normal heart rate and rhythm. Heart sounds normal. Pulses normal. Respiratory: No respiratory distress. No wheezing, rales, or rhonchi. Course breath sounds bilaterally. Abdomen: Soft and nontender. No rebound or guarding. Genitourinary: Deferred. Back: Moves without difficulty. Skin: Skin warm and dry. Extremities: No deformity. No edema. No asymmetric swelling. Neuro: Moves all extremities. No gross deficit. Medical Decision Making and Emergency Department Course ED Department Course: 8:14 PM Gilma Salmon is a 47 y.o. female who presents with a chief complaint of cough. After di scussing diagnostic and therapeutic options with the patient she has opted for basic laborat ory studies, chest x-ray, and symptomatic treatment with Tessalon. We'll monitor her closely and reevaluate. 9:25 PM Imaging shows mild infiltrate on the right. I am unclear if this is a new infectious proces s or residual from prior. As patient is symptomatic and with recent complicated history I do feel that she warrants treatment with antibiotics. Her white count is normal her vital sign s are improved. I do feel that she is stable for outpatient management. We've given her a do se of Levaquin here.Typical anticipatory guidelines and strict return to Emergency Departmen t precautions have been given. All involved are understanding of and in agreement with this plan. All questions have been addressed to the best of my ability. Records Reviewed Old medical records. Nursing notes. Previous radiology studies. Laboratory Evaluation Results Procedure Component Value Ref Range Date/Time Complete Metabolic Panel [[id number]] (Abnormal) Collected:06/10/132033 Order Status:Completed Updated:06/10/132100 Specimen Information:Blood SODIUM 136 135 - 143 mmol/L POTASSIUM 3.5 3.5 - 4.9 mmol/L CHLORIDE 100 99 - 109 mmol/L CO2 31 23 - 32 mmol/L ANION GAP AGAP 9 5 - 20 mmol/L GLUCOSE 196 (H) 65 - 99 mg/dL BUN 11 8 - 25 mg/dL CREATININE 0.59 0.50 - 1.00 mg/dL BUN/CREAT 19 CALCIUM 8.9 8.5 - 10.2 mg/dL TOTAL PROTEIN 8.5 (H) 6.3 - 8.2 g/dL Albumin 3.2 (L) 3.6 - 5.0 g/dL GLOBULIN 5.4 (H) 1.3 - 4.9 g/dL A/G 0.6 (L) 1.0 - 2.4 TBIL 0.3 0.1 - 1.5 mg/dL ALK PHOS 105 35 - 115 U/L AST 39 10 - 45 U/L ALT 59 10 - 65 U/L EGFR >60 >60 mL/min/1.73m2 CBC w Auto Diff [[id number]] (Abnormal) Collected:06/10/132033 Order Status:Completed Updated:06/10/132042 Specimen Information:Blood WBC 7.5 3.8 - 11.0 K/uL RBC 4.44 3.70 - 5.10 M/uL HGB 11.9 11.3 - 15.5 g/dL HCT 36.0 34.0 - 46.0 % MCV 81.0 80.0 - 100.0 fl MCH 26.9 (L) 27.0 - 34.0 pg MCHC 33.1 32.0 - 35.5 g/dL RDW SD 43.3 37 - 53 fl PLT 359 150 - 400 K/uL MPV 7.3 fl DIFF TYPE AUTOMATED NEUTROPHILS 46.4 % LYMPHOCYTES 39.3 % MONOCYTES 8.9 % EOSINOPHILS 4.9 % BASOPHILS 0.5 % NEUTROPHILS ABS 3.5 1.9 - 7.4 K/uL LYMPHOCYTES ABS 2.9 1.0 - 3.9 K/uL MONOCYTES ABS 0.7 0 - 0.8 K/uL EOSINOPHILS ABS 0.4 0 - 0.5 K/uL BASOPHILS ABS 0.0 0 - 0.1 K/uL Lab Interpretation I have reviewed lab results from the emergency department workup and abnormal results have been posted to the chart. Pertinent positive and negative findings have been addressed appr opriately. Radiology and EKG Evaluation Imaging Results XR Chest PA and Lateral (Preliminary result) Result time:06/10/132126 ED Interpretation Documented by Edis Gudino MD (06/10/132126, [facility] Emergency Department, Emergency Medicine) This ED initial read occurred during the ED course and management. The ED interpretation at the time the patient was being clinically managed, and prior to the radiology final read interpretation was: Possible R sided infiltrate. No acute effusion. No cardiomegaly. Normal mediastinum. No pneumothorax. This study has been independently viewed and interpreted by myself. Much improved from prior. ED Diagnoses Final diagnoses Cough Pneumonia Disposition: ED Disposition Discharge Condition at discharge: Stable Follow-up Information Follow up With Details Comments Contact Info Mary Valdez PA-C Schedule an appointment as soon as possible for a visit [address] [place] [address] [facility] Emergency Department If symptoms worsen [address] [place] [address] [phone] Discharge Medications: New Prescriptions BENZONATATE (TESSALON) 100 MG CAPSULE Take 1 capsule by mouth every 8 (eight) hours. LEVOFLOXACIN (LEVAQUIN) 750 MG TABLET Take 1 tablet by mouth daily. This document has been prepared with a voice recognition system. The possibility of "sound alike" morphologist errors, addition and/or deletions may occur. If there is any question p lease contact the author of the document. Additional Documentation Procedures Edis Gudino MD 06/10/13 5439 onversion Transactio n, Provider Unknown - 06/10/2013 8:09 PM PST ED Notes by Alli Giron RN at 06/10/132008 Author: Alli Giron RN Service: (none) Author Type: Registered Nurse Filed: 06/10/132009 Date of Service: 06/10/132008 Status: Signed Digester Hand: Alli Giron RN (Registered Nurse) Dr. Gudino @ assessing patient Alli Giron RN 06/10/132009 onver elaina Transaction, Provider Unknown - 06/10/2013 8:04 PM PST ED Notes by Alli Giron RN at 06/10/132003 Author: Alli Giron RN Service: (none) Author Type: Registered Nurse Filed: 06/10/132005 Date of Service: 06/10/132003 Status: Signed Digester Hand: Alli Giron RN (Registered Nurse) "The last week in April I was admitted at [facility] for pneumonia and the flu, then I was transferred here to the ICU and I got ARDS, then they sent me off to some place to get me off my trach." Alli Giron RN 06/10/132005 docume nted in this encounter Plan of [...] | | | | | | [place] [address] | | | | | | [phone] | | | | | | | | +--------+ + + + + | 03/22/ | Office | Neurology | Elaine Andrews, | | | 2020 | Visit | | MD [address] | | | | | | [address] | | | | | | [place] [address] | | | | | | [phone] | | | | | | | | +--------+ + + + + documented as of this encounter Procedures + +--------+ + + + | Procedure Name | Priori | Date/Time | Associated Diagnosis | Comments | | | ty | | | | + +--------+ + + + | CULTURE, BLOOD, 2ND | STAT | 06/10/2013 | | Results for this | | SPECIMEN (NON-ORD) | | 9:22 PM | | procedure are in the | | | | PST | | results section. | + +--------+ + + + | XR CHEST 2 VIEWS | Routin | 06/10/2013 | | Results for this | | | e | 9:02 PM | | procedure are in the | | | | PST | | results section. | + +--------+ + + + | EXTERNAL LAB: CBC | Routin | 06/10/2013 | | Results for this | | | e | 8:34 PM | | procedure are in the | | | | PST | | results section. | + +--------+ + + + | CULTURE, BLOOD | STAT | 06/10/2013 | | Results for this | | | | 8:34 PM | | procedure are in the | | | | PST | | results section. | + +--------+ + + + | COMPREHENSIVE | Routin | 06/10/2013 | | Results for this | | METABOLIC PANEL | e | 8:34 PM | | procedure are in the | | | | PST | | results section. | + +--------+ + + + documented in this encounter Results Culture, Blood, 2nd Specimen (06/10/2013 9:22 PM PST) + + | Specimen | + + | Blood specimen | | (specimen) | + + + + + | Narrative | Performed At | + + + | Specimen Description BLOOD GRAM STAIN | EXTERNAL LAB | | GRAM POSITIVE COCCI SEEN IN | | | AEROBIC BOTTLE | | | SMEAR RESULTS CALLED TO AND READ BACK BY: COTY BARNES IN ED ON | | | 06/12/13 AT 0243 BY NEW | | | Testing performed at [facility], [address] [place] [address] | | | [id number] CULTURE | | | STAPHYLOCOCCUS SPECIES, COAGULASE NEGATIVEAbnormal | | | GROWTH IN ONE OF TWO | | | BOTTLESAbnormal | | | TIME TO DETECTION: 26HRS 6MIN | | | POSSIBLE CONTAMINANT, CLINICAL CORRELATION REQUIRED. | | | Testing performed at | | | [facility], [address] [place] [id number] REPORT STATUS | | | 06/13/2013 FINAL | | + + + + +---------+ + + | Performing | Address | City/State/Zipcode | Phone Number | | Organization | | | | + +---------+ + + | EXTERNAL LAB | | | | + +---------+ + + XR Chest 2 Vws (06/10/2013 9:02 PM PST) + + | Specimen | + + | | + + + + + | Impressions | Performed At | + + + | 1. No residual infiltration. Tracheotomy tube properly positioned | | | | | + + + + + + | Narrative | Performed At | + + + | GIL[facility] SALMON XR CHEST 2 VIEW FRONTAL AND LATERAL 06/10/2013 9:02 | | | PM HISTORY: 47 years. Female. Pneumonia symptoms | | | TECHNIQUE: Two-view COMPARISON: 05/14/13 FINDINGS: | | | Tracheotomy tube properly positioned above the anton. Aeration | | | markedly improved compared with last month's study. No cardiac | | | enlargement. | | + + + + + | Procedure Note | + + | Fox, Rad Conversion - 11/20/2018 1:53 PM PDT GIL[facility] MEDEROS CHEST 2 VIEW FRONTAL | | AND LATERAL06/10/2013 9:02 PM HISTORY:47 years. Female. Pneumonia symptoms | | TECHNIQUE:Two-view COMPARISON:05/14/13 FINDINGS:Tracheotomy tube properly positioned above | | the anton. Aeration markedly improved compared with last month's study. No cardiac | | enlargement. IMPRESSION: 1. No residual infiltration. Tracheotomy tube properly | | positioned | | | |TECHNIQUE: | |Two-view | | | |COMPARISON: | |05/14/13 | | | |FINDINGS: | |Tracheotomy tube properly positioned above the anton. Aeration markedly improved compared with last month's study. No cardiac enlargement. | | | |IMPRESSION: | |1. No residual infiltration. Tracheotomy tube properly positioned | | | | | + + External Lab: CBC (06/10/2013 8:34 PM PST) + + + + + + | Component | Value | Ref Range | Performed | Pathologist | | | | | At | Signature | + + + + + + | WBC | 7.5Comment: Testing | 3.8 - 11.0 K/uL | EXTERNAL | | | | performed at [facility] | | LAB | | | | [facility];[place], [place] | | | | | | [address] | | | | + + + + + + | Non- | 4.44Comment: Testing | 3.70 - 5.10 | EXTERNAL | | | Red Blood | performed at [facility];[address] | M/uL | LAB | | | Cells | [address];[place] | | | | | Counted | [address] | | | | + + + + + + | Hemoglobin | 11.9Comment: Testing | 11.3 - 15.5 | EXTERNAL | | | | performed at [facility];888 | g/dL | LAB | | | | [address];[place] | | | | | | [address] | | | | + + + + + + | Hematocrit, | 36.0Comment: Testing | 34.0 - 46.0 % | EXTERNAL | | | POC | performed at [facility];[address] | | LAB | | | | [address];[place] | | | | | | [address] | | | | + + + + + + | MCV | 81.0Comment: Testing | 80.0 - 100.0 fl | EXTERNAL | | | | performed at [facility];[address] | | LAB | | | | [address];[place] | | | | | | [address] | | | | + + + + + + | MCH | 26.9 (L)Comment: Testing | 27.0 - 34.0 pg | EXTERNAL | | | | performed at [facility];[address] | | LAB | | | | [address];[place] | | | | | | [address] | | | | + + + + + + | MCHC | 33.1Comment: Testing | 32.0 - 35.5 | EXTERNAL | | | | performed at [facility];888 | g/dL | LAB | | | | [address];[place] | | | | | | [address] | | | | + + + + + + | RDW-CV | 43.3Comment: Testing | 37 - 53 fl | EXTERNAL | | | | performed at [facility];[address] | | LAB | | | | [address];[place] | | | | | | [address] | | | | + + + + + + | Platelet | 359Comment: Testing | 150 - 400 K/uL | EXTERNAL | | | Count | performed at [facility];[address] | | LAB | | | Plasma | [address];[place] | | | | | | [address] | | | | + + + + + + | MPV | 7.3Comment: Testing | fl | EXTERNAL | | | | performed at [facility];[address] | | LAB | | | | [address];[place] | | | | | | [address] | | | | + + + + + + | Differentia | AUTOMATEDComment: | | EXTERNAL | | | l Type | Testing performed at | | LAB | | | | [facility];[address];[place] [address] | | | | + + + + + + | % Segmented | 46.4Comment: Testing | % | EXTERNAL | | | | performed at [facility];[address] | | LAB | | | Neutrophils | [address];[place] | | | | | | [address] | | | | + + + + + + | % | 39.3Comment: Testing | % | EXTERNAL | | | Lymphocytes | performed at [facility];[address] | | LAB | | | | [address];[place] | | | | | | [address] | | | | + + + + + + | % Monocytes | 8.9Comment: Testing | % | EXTERNAL | | | | performed at [facility];[address] | | LAB | | | | [address];[place] | | | | | | [address] | | | | + + + + + + | % | 4.9Comment: Testing | % | EXTERNAL | | | Eosinophils | performed at [facility];[address] | | LAB | | | | [address];[place] | | | | | | [address] | | | | + + + + + + | % Basophils | 0.5Comment: Testing | % | EXTERNAL | | | | performed at [facility];[address] | | LAB | | | | [address];[place] | | | | | | [address] | | | | + + + + + + | Absolute | 3.5Comment: Testing | 1.9 - 7.4 K/uL | EXTERNAL | | | Segmented | performed at [facility];[address] | | LAB | | | Neutrophils | [address];[place] | | | | | | [address] | | | | + + + + + + | Absolute | 2.9Comment: Testing | 1.0 - 3.9 K/uL | EXTERNAL | | | Lymphocytes | performed at [facility];[address] | | LAB | | | | [address];[place] | | | | | | [address] | | | | + + + + + + | Absolute | 0.7Comment: Testing | 0 - 0.8 K/uL | EXTERNAL | | | Monocytes | performed at [facility];[address] | | LAB | | | | [address];[place] | | | | | | [address] | | | | + + + + + + | Absolute | 0.4Comment: Testing | 0 - 0.5 K/uL | EXTERNAL | | | Eosinophils | performed at [facility];[address] | | LAB | | | | [address];[place] | | | | | | [address] | | | | + + + + + + | Absolute | 0.0Comment: Testing | 0 - 0.1 K/uL | EXTERNAL | | | Basophils | performed at [facility];[address] | | LAB | | | | [address];[place] | | | | | | [address] | | | | + + + [...] + +---------+ + + Comprehensive Metabolic Panel (06/10/2013 8:34 PM PST) + + + + + + | Component | Value | Ref Range | Performed | Pathologist | | | | | At | Signature | + + + + + + | Na | 136Comment: Testing | 135 - 143 | EXTERNAL | | | | performed at [facility];[address] | mmol/L | LAB | | | | [address];[place] | | | | | | [address] | | | | + + + + + + | K | 3.5Comment: Testing | 3.5 - 4.9 | EXTERNAL | | | | performed at [facility];[address] | mmol/L | LAB | | | | [address];[place] | | | | | | [address] | | | | + + + + + + | Cl | 100Comment: Testing | 99 - 109 mmol/L | EXTERNAL | | | | performed at [facility];[address] | | LAB | | | | [address];[place] | | | | | | [address] | | | | + + + + + + | CO2 | 31Comment: Testing | 23 - 32 mmol/L | EXTERNAL | | | | performed at [facility];[address] | | LAB | | | | [address];[place] | | | | | | [address] | | | | + + + + + + | Anion Gap | 9Comment: Testing | 5 - 20 mmol/L | EXTERNAL | | | | performed at [facility];[address] | | LAB | | | | [address];[place] | | | | | | [address] | | | | + + + + + + | Glucose, | 196 (H)Comment: Testing | 65 - 99 mg/dL | EXTERNAL | | | Fasting | performed at [facility];[address] | | LAB | | | | [address];[place] | | | | | | [address] | | | | + + + + + + | BUN | 11Comment: Testing | 8 - 25 mg/dL | EXTERNAL | | | | performed at [facility];[address] | | LAB | | | | [address];[place] | | | | | | [address] | | | | + + + + + + | Creatinine | 0.59Comment: Testing | 0.50 - 1.00 | EXTERNAL | | | | performed at [facility];[address] | mg/dL | LAB | | | | [address];[place] | | | | | | [address] | | | | + + + + + + | BUN/Creatin | 19Comment: Testing | | EXTERNAL | | | ine Ratio | performed at [facility];[address] | | LAB | | | | [address];[place] | | | | | | [address] | | | | + + + + + + | Calcium | 8.9Comment: Testing | 8.5 - 10.2 | EXTERNAL | | | | performed at [facility];[address] | mg/dL | LAB | | | | [address];[place] | | | | | | [address] | | | | + + + + + + | Protein, | 8.5 (H)Comment: Testing | 6.3 - 8.2 g/dL | EXTERNAL | | | Total | performed at [facility];[address] | | LAB | | | | [address];[place] | | | | | | [address] | | | | + + + + + + | Albumin | 3.2 (L)Comment: Testing | 3.6 - 5.0 g/dL | EXTERNAL | | | | performed at [facility];[address] | | LAB | | | | [address];[place] | | | | | | [address] | | | | + + + + + + | Globulin | 5.4 (H)Comment: Testing | 1.3 - 4.9 g/dL | EXTERNAL | | | | performed at [facility];[address] | | LAB | | | | [address];[place] | | | | | | [address] | | | | + + + + + + | A/G Ratio | 0.6 (L)Comment: Testing | 1.0 - 2.4 | EXTERNAL | | | | performed at [facility];[address] | | LAB | | | | [address];[place] | | | | | | [address] | | | | + + + + + + | Bilirubin | 0.3Comment: Testing | 0.1 - 1.5 mg/dL | EXTERNAL | | | Total | performed at [facility];[address] | | LAB | | | | [address];[place] | | | | | | [address] | | | | + + + + + + | ALP, | 105Comment: Testing | 35 - 115 U/L | EXTERNAL | | | External | performed at [facility];[address] | | LAB | | | | [address];[place] | | | | | | [address] | | | | + + + + + + | AST | 39Comment: Testing | 10 - 45 U/L | EXTERNAL | | | | performed at [facility];[address] | | LAB | | | | [address];[place] | | | | | | [address] | | | | + + + + + + | ALT | 59Comment: Testing | 10 - 65 U/L | EXTERNAL | | | | performed at [facility];[address] | | LAB | | | | [address];[place] | | | | | | [address] | | | | + + + [...] | | | | | | at [facility];[address];[place] [address] | | | | + + + + + + + + | Specimen | + + | Blood specimen | | (specimen) | + + + +---------+ + + | Performing | Address | City/State/Zipcode | Phone Number | | Organization | | | | + +---------+ + + | EXTERNAL LAB | | | | + +---------+ + + Culture, Blood (06/10/2013 8:34 PM PST) + + | Specimen | + + | Blood specimen | | (specimen) | + + + + + | Narrative | Performed At | + + + | Specimen Description BLOOD CULTURE | EXTERNAL LAB | | NO GROWTH 6 DAYS | | | Testing performed at [facility], [address] | | | [place] [address] REPORT STATUS | | | 06/16/2013 FINAL | | + + + + +---------+ + + | Performing | Address | City/State/Zipcode | Phone Number | | Organization | | | | + +---------+ + + | EXTERNAL LAB | | | | + +---------+ + + documented in this encounter Visit Diagnoses + + | Diagnosis | + + | Cough | + + | Pneumonia Pneumonia, organism unspecified | + + documented in this encounter
--- OUTSIDE RECORDS SUMMARY | ~2020-01-17 | XMS | Encounter Summary ---
Demographics + + + | Address | [address] | | | [place] [address] | + + + | Home Phone | | + + + | Preferred Language | Unknown | + + + | Marital Status | | + + + | Yazidi Affiliation | Unknown | + + + | Race | White | + + + | Ethnic Group | Not or | + + + Author + + + | Author | [facility] | | | and [place] | + + + | Organization | [facility] | [...] Team Providers + +------+ + | Care Metal Fabricator Welder Name | Role | Phone | + [...] | | | | [place] | [phone] | | | | | [address] | | | | | | [phone] | | | +--------+ + + + [...] | | | | | | [place] [address] | | | | | | [phone] | | | | | | | | +--------+ + + + + | 03/22/ | Office | Neurology | Elaine Andrews, | | | 2019 | Visit | | MD Kim [address]OUT | | | | | | [place] | | | | | | [place] [address] | | | | | | [phone] | | | | | | | | +--------+ + + + + documented as of this encounter Visit Diagnoses Not on filedocumented in this encounter"
--- OUTSIDE RECORDS SUMMARY | ~2020-01-17 | XMS | Encounter Summary ---
Demographics + + + | Address | [address] | | | [place] [address] | + + + | Home Phone [...] Team Providers + +------+ + | Care Inbound Call Center Agent Name | Role | Phone | + [...] Provider Unknown | | | | | [place], [place] | [phone] | | | | | [address] | | | | | | [phone] | | | +--------+ + + + [...] [place], | | | | | | [place] [address] | | | | | | [phone] | | | | | | | | +--------+ + + + + | 03/22/ | Office | Neurology | Elaine Andrews, | | | 2019 | Visit | | MD [address] | | | | | | [place] | | | | | | [place] [address] | | | | | | [phone] | | | | | | | [...] Ermias Braxton - 11/20/2018 1:53 PM PDT This is a non-reportable procedure | | without a radiologist report and isused for image storage only | + + documented in this encounter Visit Diagnoses + + | Diagnosis | + + | Pain Generalized pain | + + documented in this encounter"
--- OUTSIDE RECORDS SUMMARY | ~2020-01-17 | XMS | Encounter Summary ---
Demographics + + + | Address | [address] | | | [place] [address] | + + + | Home Phone [...] Author + + + | Author | [facility] | | | and [place] | + + + | Organization | [facility] | | [...] Team Providers + +------+ + | Care Research Fellow Name | Role | Phone | + +------+ + | Mynor Kam MD | PCP | | + +------+ + Encounter Details +--------+ + + + + | Date | Type | Department | Care Team | Description | +--------+ + + + + | 09/20/ | Virtual | [facility] | Matt, | Uncontrolled | | 2020 | Office | PULMONOLOGY [address] | Esperanza Arora, | moderate persistent | | | Visit | [address] | [address] | asthma (Primary Dx); | | | | [place], [place] | [place], | ARDS survivor; | | | | [address] | [place] [address] | Restrictive lung | | | | 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 Service was provided loao-ri-sefl with the patient via interactive videoconferencing Time Based Coding Total time (in minutes) including non rykz-ub-wvxt time (reviewing records, documentation, etc..) 30 You have chosen to receive care through the use of telemedicine. Telemedicine enables [facility] care providers at different locations to provide [...] COOPER and obesity, who was admitted to [facility] from 05/05/13 to 05/14/13 for acut e respiratory failure from ARDS due to H1N1 infection. Her course was long and difficult -celestine hodge eventually underwent a tracheostomy insertion by Dr Novoa (Lina), and then she was eventua lly moved to an acute Rehab [facility] [place] [facility] She reports abi t she had a horrible time here. After close to a week of staying in the facility, her trache ostomy tube managed to fall out and she suffered from hypoxemia with bilateral lung atelecta sis. She was brought to [facility] where they put her trach back. She [...] and more dependent on her c are department operations manager for her ADLs and chores at home. [...] the past. S he has lived in [place] most of her life. She now lives in [place]. She lived in [place] for two years when she was younger. [...] Date Asthma Bronchitis DVT (deep venous thrombosis) ([facility]) in thigh; no longer on coumadin Dvt femoral (deep venous thrombosis) ([facility]) Epilepsy ([facility]) Fibromyalgia Fibromyalgia HX OTHER MEDICAL 05/04/2013 Acute [...] Procedure: TRACHEOSTOMY; Surgeon: Fabián Novoa MD; Location: [facility] MAIN OR; Service: ENT; Laterality: [...] PCP for a referral t o the [facility]. 6. End stage liver [...] Gutierrez MD Pulmonary and Critical Care Medicine [facility] [address] [facility] [place] [address] documentnaveen stephens in this encounter Plan of Treatment +--------+ [...] | | | | | | [place] [address] | | | | | | [phone] | | | | | | | | +--------+ + + + + | 03/22/ | Office | Neurology | Elaine Andrews, | | 2019 | Visit | | MD Kim [address]OUT | | | | | | [place] | | | | | | [place] [address] | | | | | | [phone] | | | | | | | [...]
--- OUTSIDE RECORDS SUMMARY | ~2020-01-17 | XMS | Encounter Summary ---
Demographics + + + | Address | [address] | | | [place] [address] | + + + | Home Phone | | + + + | Preferred Language | Unknown | + + + | Marital Status | | + + + | Anabaptism Affiliation | Unknown | + + + | Race | White | + + + | Ethnic Group | Not or | + + + Author + + + | Author | [facility] | | | and [place] | + + + | Organization | [facility] | | [...] Team Providers + +------+ + | Care Welfare Analyst Name | Role | Phone | + +------+ + | Mynor Kam MD | PCP | | + +------+ + Encounter Details +--------+ + + + + | Date | Type | Department | Care Team | Description | +--------+ + + + + | 06/15/ | Orders Only | [facility] | Matt, | | | 2013 | | PULMONOLOGY [address] | Esperanza Arora, | | | | | [address] | [address] | | | | | [place], [place] | [place], | | | | | [address] | [place] [address] | | | | | [phone] | [phone] | | | | | | | [...] [place] | | | | | | [place] [address] | | | | | | [phone] | | | | | | | | +--------+ + + + + | 03/22/ | Office | Neurology | Elaine Andrews, | | | 2019 | Visit | | MD [address] | | | | | | [place] | | | | | | [place] [address] | | | | | | [phone] | | | | | | | | +--------+ + + + + documented as of this encounter Visit Diagnoses Not on filedocumented in this encounter"
--- OUTSIDE RECORDS SUMMARY | ~2020-01-17 | XMS | Encounter Summary ---
Demographics + + + | Address | [address] | | | [place] [address] | + + + | Home Phone [...] + + + | Author | [facility] | + + + | Organization | [facility] | + + + | Address | [...] Team Providers + +------+ + | Care Coal Weigher Name | Role | Phone | + +------+ + | Erlinda Oneal PA-C | PCP | | + +------+ + Encounter Details +--------+ + + + + | Date | Type | Department | Care Team | Description | +--------+ + + + + | 11/11/ | Outside | Neurophysiology | Dmitri, | | | 2015 | Referral | EEG at [facility] [address] | [address] | | | | Order | [address] | [place] | | | | | [facility] | [place] [address] | | | | | [facility] Floor | [phone] | | | | | [place], [place] | | | | | | [address] | | | | | | [phone] | | | +--------+ + + + [...] 1965 Medical | | | Record Number: [id number] Date of Test: 11/11/2014 Place of Service: | | | [facility] Department: EEG [facility] - [id number] SLEEP DEPRIVED | | | EEG Indication: [...] attenuates with eye opening. There are frequent aahti-kgi-cqnp | | | discharges occurring at 2 Hz with a broad generalized field, though | | | consistently with a F3-C3-P3 lead-in. Xktog-yyb-kclg discharges | | | generally have no clinical correlate. Photic stimulation results in a | | | symmetric photic driving response. At 20 Hz flash frequency, there | | | is a 5 second run of genov-gey-cilc discharges, initially at 2 Hz | | [...] drowsy routine EEG. | | | Frequent zwjbq-cmc-xonv discharges with a generalized field (though | | | consistently with a left mjzqow-wxfngl-aydoluxq lead-in), with | | | activation during hyperventilation and photic stimulation, in the | | | context of clinical history is most consistent with a primary | | | generalized epilepsy though focal onset with rapid bilateral | | | synchrony cannot be ruled out entirely. There was one possible | | | clinical event of subtle myoclonus associated with wwjzr-hxv-lvnm | | | discharges during photic stimulation though video quality was poor. | | | Electronically signed on 11/11/2014 at 10:34 AM SCOTT CAMARILLO | | | . Suggested CPT: 90309 - EEG Routine Awake Only Suggested Dx: | | | 345.00 - Epilepsy, General, non-convuls | | + + + documented in this encounter Visit Diagnoses Not on filedocumented in this encounter"
--- OUTSIDE RECORDS SUMMARY | ~2020-01-17 | XMS | Encounter Summary ---
Demographics + + + | Address | [address] | | | [place] [address] | + + + | Home Phone [...] Team Providers + +------+ + | Care Mechanical Maintenance Engineer Name | Role | Phone | [...] + + | 02/26/ | Telephone | [facility] | DeandrezyaeulaliayoniElaine, | Follow-up | | 2019 | | NEUROLOGY [address] | MD [address] | (Reschedule ) | | | | [address] | [address] | | | | | [place], [place] | [place] [address] | | | | | [address] | [phone] | | | | | [phone] | | | +--------+ + + + [...] Miscellaneous Notes Telephone Encounter - Adrian Khan, Adoption Manager - 02/26/2019 9:47 AM PSTCalled bobby Gilliam back at [phone] and she wanted to reschedule pts appt [...] the call to a ainsley lloyd director of flight operations was caller made aware that if at [...] | | | | | | [place] [id number] | | | | | | [phone] | | | | | | | | +--------+ + + + + | 03/22/ | Office | Neurology | Elaine Andrews, | | | 2019 | Visit | | MD [address] | | | | | | [place] | | | | | | [place] [address] | | | | | | [phone] | | | | | | | | +--------+ + + + + documented as of this encounter Visit Diagnoses Not on filedocumented in this encounter"
--- OUTSIDE RECORDS SUMMARY | ~2020-01-17 | XMS | Encounter Summary ---
Demographics + + + | Address | [address] | | | [place] [address] | + + + | Home Phone [...] + + + | Author | [facility] | | | and [place] | + + + | Organization | [facility] | | [...] Team Providers + +------+ + | Care Validation Scientist Name | Role | Phone | + [...] Provider Unknown | | | | | [place], [place] | [phone] | | | | | [address] | | | | | | [phone] | | | +--------+ + + + [...] [place], | | | | | | [place] [address] | | | | | | [phone] | | | | | | | | +--------+ + + + + | 03/22/ | Office | Neurology | Elaine Andrews, | | | 2019 | Visit | | MD [address] | | | | | | [place] | | | | | | [place] [address] | | | | | | [phone] | | | | | | | [...] this | | PULMONARY | e | 11:18 PM | | procedure are in the | | | | PDT | | results section. | + +--------+ + + + documented in this encounter Results CT Angiogram Pulmonary w Contrast (09/24/2013 11:18 PM PDT) + + | Specimen | [...]
--- OUTSIDE RECORDS SUMMARY | ~2020-01-17 | XMS | Encounter Summary ---
Demographics + + + | Address | [address] | | | [place] [address] | + + + | Home Phone | | + + + | Preferred Language | Unknown | + + + | Marital Status | | + + + | Restoration Affiliation | Unknown | + + + [...] Team Providers + +------+ + | Care Global Cto Name | Role | Phone | + +------+ + | Mynor Kam MD | PCP | | + +------+ + Encounter Details +--------+ + + + + | Date | Type | Department | Care Team | Description | +--------+ + + + + | 09/21/ | Orders Only | [facility] | Matt, | | | 2019 | | PULMONOLOGY [address] | Esperanza Arora, | | | | | [address] | [address] | | | | | [place], [place] | [place], | | | | | [address] | [place] [address] | | | | | [phone] | [phone] | | | | | | | [...] [place] | | | | | | [place] [address] | | | | | | [phone] | | | | | | | | +--------+ + + + + | 03/22/ | Office | Neurology | Elaine Andrews, | | | 2019 | Visit | | MD [address] | | | | | | [place] | | | | | | [place] [address] | | | | | | [phone] | | | | | | | | +--------+ + + + + documented as of this encounter Visit Diagnoses Not on filedocumented in this encounter"
--- OUTSIDE RECORDS SUMMARY | ~2020-01-17 | XMS | Encounter Summary ---
Demographics + + + | Address | [address] | | | [place] [address] | + + + | Home Phone | | + + + | Preferred Language | Unknown | + + + | Marital Status | | + + + | Taoist Affiliation | Unknown | + + + | Race | White | + + + | Ethnic Group | Not or | + + + Author + + + | Author | [facility] | | | and [place] | + + + | Organization | [facility] | | [...] Team Providers + +------+ + | Care Business Machine Operator Name | Role | Phone | + +------+ + | Mynor Kam MD | PCP | | + +------+ + Reason for Visit +--------+--------+ + | Reason | Onset | Comments | | | Date | | +--------+--------+ + | Other | 01/02/ | | | | 2020 | | +--------+--------+ + Encounter Details +--------+ + + + + | Date | Type | Department | Care Team | Description | +--------+ + + + + | 01/02/ | Telephone | [facility] | Matt, | Other | | 2020 | | PULMONOLOGY [address] | Esperanza Arora, | | | | | [address] | [address] | | | | | [place], [place] | [place], | | | | | [address] | [place] [address] | | | | | [phone] | [phone] | | | | | | | [...] this encounter Miscellaneous Notes Telephone Encounter - Tom Chavez Medical Assistant - 01/04/2020 4:16 PM PDTCalled patient and made her an appointment two weeks from now. elephone Encounter - Esper[place] Gutierrez MD - 01/03/2020 5:12 PM PDTThank you. I am glad that she went to the hospital when we asked her to. Pls ask her if she wants a follow up in two weeks or so-even on the phone -just to ensure that she is progressing well. Esperanza Gutierrez MD Pulmonary and Critical Care Medicine [facility] [address] [facility] , [place] [address] [place] [address] Office Number: [phone] elephone Encounter - Tom Chavez Medical Assistant - 01/03/2020 3:33 PM PDTPatient called an d stated that she was hospitalized for pneumonia at [facility] and and just wanted to let Dr. Gutierrez know. documented in this encounter Plan of Treatment [...] [place] | | | | | | [place] [address] | | | | | | [phone] | | | | | | | | +--------+ + + + + | 03/22/ | Office | Neurology | Elaine Andrews, | | | 2019 | Visit | | MD [address] | | | | | | [place] | | | | | | [place] [address] | | | | | | [phone] | | | | | | | | +--------+ + + + + documented as of this encounter Visit Diagnoses Not on filedocumented in this encounter"
--- OUTSIDE RECORDS SUMMARY | ~2020-01-17 | XMS | Encounter Summary ---
Demographics + + + | Address | [address] | | | [place] [address] | + + + | Home Phone [...] Team Providers + +------+ + | Care Hose Coupling Joiner Name | Role | Phone | + +------+ + | Mynor aKm MD | PCP | | + +------+ + Reason for Visit + + + | Reason | Comments | + + + | Medication Refill | | + + + Encounter Details +--------+--------+ + + + | Date | Type | Department | Care Team | Description | +--------+--------+ + + + | 11/16/ | Refill | [facility] | Elaine Andrews, | Medication Refill | | 2020 | | NEUROLOGY [address] | MD [address] | | | | | [address] | [address] | | | | | [place], [place] | [place] [address] | | | | | [address] | [phone] | | | | | [phone] | | | +--------+--------+ + + + [...] | 2019 | Office | | Esperanza Maite, | | | | Visit | | MD [address] | | | | | | [place], | | | | | | [place] [address] | | | | | | [phone] | | | | | | | | +--------+ + + + + | 03/22/ | Office | Neurology | Elaine Andrews, | | | 2020 | Visit | | MD [address] | | | | | | [place] | | | | | | [place] [address] | | | | | | [phone] | | | | | | | | +--------+ + + + + documented as of this encounter Visit Diagnoses Not on filedocumented in this encounter"
--- OUTSIDE RECORDS SUMMARY | ~2020-01-17 | XMS | Encounter Summary ---
Demographics + + + | Address | [address] | | | [place] [address] | + + + | Home Phone | | + + + | Preferred Language | Unknown | + + + | Marital Status | | + + + | Hoahaoism Affiliation | Unknown | + + + | Race | White | + + + | Ethnic Group | Not or | + + + Author + + + | Author | [facility] | | | and [place] | + + + | Organization | [facility] | | | and [...] Team Providers + +------+ + | Care Unix Architect Name | Role | Phone | + [...] + + | 09/16/ | Telephone | [facility] | Matt, | Appointment | | 2020 | | PULMONOLOGY [address] | Esperanza Arora, | | | | | [address] | [address] | | | | | [place], [place] | [place], | | | | | [address] | [place] [address] | | | | | [phone] | [phone] | | | | | | | [...] - 09/17/2019 8:51 AM Bry, is calling [facility] Appointment and would like a call back. Additional Call Details: Patient would like a call back in regards to getting help/informa tion about the [facility] [facility] GINA for her 09/20 Appointment. Can be reached at Home Number list in [place] If this is a symptom based call, was patient offered triage? Not Applicable If this is a symptom based call and you were unable to immediately transfer the call to a ainsley llody hot die press operator was caller made aware that if [...] [place], | | | | | | [place] [address] | | | | | | [phone] | | | | | | | | +--------+ + + + + | 03/22/ | Office | Neurology | Elaine Andrews, | | | 2019 | Visit | | MD [address] | | | | | | [place] | | | | | | [place] [address] | | | | | | [phone] | | | | | | | | +--------+ + + + + documented as of this encounter Visit Diagnoses Not on filedocumented in this encounter"
--- OUTSIDE RECORDS SUMMARY | ~2020-01-17 | XMS | Encounter Summary ---
Demographics + + + | Address | [address] | | | [place] [address] | + + + | Home Phone [...] Team Providers + +------+ + | Care Telegraphic Typewriter Installer Name | Role | Phone | + [...] + + | 10/19/ | Virtual | [facility] | Elaine Andrews, | [facility] | | 2019 | Office | NEUROLOGY [address] | [address] | attentiveness | | | Visit | [address] | [address] | (Primary Dx); | | | | [place], [place] | [place] [address] | Dizziness and | | | | [address] | [phone] | giddiness; Toxic | | | | [phone] | | encephalopathy | +--------+ + + [...] due to COVID-19 pandemic. Service was provided ncyd-vb-sqfp with the patient via interactive videoconferencing Video start time 936 am Video end time 956 am Total time (in minutes) 25+ minutes including review of records, face to face time, documen tation including orders and finalizing care plan You have chosen to receive care through the use of telemedicine. Telemedicine enables [facility] care providers at different locations to [...] is wor lisa with a specialist at [facility]. She is not yet on the transplant [...] | | | | | | [place] [address] | | | | | | [phone] | | | | | | | | +--------+ + + + + | 03/22/ | Office | Neurology | Elaine Andrews, | | 2019 | Visit | | MD [address] | | | | | | [place] | | | | | | [place] [address] | | | | | | [phone] | | | | | | | [...]
--- OUTSIDE RECORDS SUMMARY | ~2020-01-17 | XMS | Encounter Summary ---
Demographics + + + | Address | [address] | | | [place] [address] | + + + | Home Phone [...] + + | Author | [facility] | | | and [place] | + + + | Organization | [facility] | | [...] Team Providers + +------+ + | Care Campground Cleaning Attendant Name | Role | Phone | + +------+ + | Mynor Kam MD | PCP | | + +------+ + Reason for Visit + +--------+ + | Reason | Onset | Comments | | | Date | | + +--------+ + | Shortness of Breath | 12/27/ | | | | 2020 | | + +--------+ + Encounter Details +--------+ + + + + | Date | Type | Department | Care Team | Description | +--------+ + + + + | 12/27/ | Telephone | [facility] | Pam Jeffries RN | Shortness of Breath | | 2019 | | PULMONOLOGY [address] | | | | | | [address] | | | | | | [place] | | | | | | [address] | | | | | | [phone] | | | +--------+ + + + [...] Gutierrez MD Pulmonary and Critical Care Medicine [facility] [address] , [place] [address] Office Number: [phone] elephone Encounter - Pam Jeffries RN - 12/28/2019 8:37 AM PDTJenni called with complaints of fevers . Chills, shortness of breath, cough, loss of smell, nausea, low oxygen saturations (87%) an d high heart rate, (95), she is wanting medication prescribed. She does not want to go to ed and [facility] knows she does not have covid. Spoke to Dr. Gutierrez. Per Dr. Gutierrez [place] i is to go to Ed immediately. Gilma stated understanding of all instructions and will go to ED closest to her immediately. Gilma had no further questions or concerns. Electronically si gned by Pam Jeffries RN at 12/28/2019 8:42 AM PDTdocumented in this encounter Plan of Treatment +--------+ [...] [place] | | | | | | [place] [address] | | | | | | [phone] | | | | | | | | +--------+ + + + + | 03/22/ | Office | Neurology | Elaine Andrews, | | | 2019 | Visit | | MD Kim STOUT | | | | | | [address] | | | | | | [place] [address] | | | | | | [phone] | | | | | | | | +--------+ + + + + documented as of this encounter Visit Diagnoses Not on filedocumented in this encounter"
--- OUTSIDE RECORDS SUMMARY | ~2020-01-17 | XMS | Encounter Summary ---
Demographics + + + | Address | [address] | | | [place] [address] | + + + | Home Phone | | + + + | Preferred Language | Unknown | + + + | Marital Status | | + + + | Mandaen Affiliation | Unknown | + + + | Race | White | + + + | Ethnic Group | Not or | + + + Author + + + | Author | [facility] | | | and [place] | + + + | Organization | [facility] | | [...] Team Providers + +------+ + | Care Meat Stocker Name | Role | Phone | + +------+ + | Mynor Kam MD | PCP | | + +------+ + Reason for Visit + +--------+ + | Reason | Onset | Comments | | | Date | | + +--------+ + | Medication Refill | 07/22/ | refill | | | 2020 | | + +--------+ + Encounter Details +--------+--------+ + + + | Date | Type | Department | Care Team | Description | +--------+--------+ + + + | 07/22/ | Refill | [facility] | Darryl Elaine, | Medication Refill | | 2019 | | NEUROLOGY [address] | [address] | (refill) | | | | [address] | [address] | | | | | [place], [place] | [place] [address] | | | | | [address] | [phone] | | | | | [phone] | | | +--------+--------+ + + + [...] Miscellaneous Notes Telephone Encounter - Lashaun Scott Tongue And Groove Machine Feeder - 07/23/2019 11:24 AM PDTL ast visit: 06/01/2019 Next visit: 09/30/2019 Last filled: 05/10/2019 Number of refills: 0 Per last note: Gabapentin 300mg Take 4 caps morning, continue 3 caps at noon and 3 caps at night. elephone Encounter - Kiara Olea - 07/23/2019 10:36 AM PDTPharmacy: Helen Haskins/Remington Dillard, is calling regarding Medication Refill (refill) and is requesting the following: Medication requested: Gabapentin 300mg Quantity requested: 30 day supply If not a controlled substance, has patient called the pharmacy and checked that Rx is not a lready there: Yes Caller is aware of 24-48 hour wait time per refill policy: Yes Patient is out of mediation documented in this encoun ter Plan of Treatment +--------+ + + + [...] [place] | | | | | | [place] [address] | | | | | | [phone] | | | | | | | | +--------+ + + + + | 03/22/ | Office | Neurology | Elaine Andrews, | | | 2019 | Visit | | MD Kim STOUT | | | | | | [address] | | | | | | [place] [address] | | | | | | [phone] | | | | | | | | +--------+ + + + + documented as of this encounter Visit Diagnoses Not on filedocumented in this encounter"
--- OUTSIDE RECORDS SUMMARY | ~2020-01-17 | XMS | Encounter Summary ---
Demographics + + + | Address | [address] | | | [place] [address] | + + + | Home Phone [...] + + | Author | [facility] | | | and [place] | + + + | Organization | [facility] | | | [...] Team Providers + +------+ + | Care Government Property Inspector Name | Role | Phone | [...] Provider Unknown | | | | | [place], [place] | [phone] | | | | | [address] | | | | | | [phone] | | | +--------+ + + + [...] | | | | | | [place] [address] | | | | | | [phone] | | | | | | | | +--------+ + + + + | 03/22/ | Office | Neurology | Elaine Andrews, | | | 2019 | Visit | | MD Kim STOUT | | | | | | [address] | | | | | | [place] [address] | | | | | | [phone] | | | | | | | [...]
--- OUTSIDE RECORDS SUMMARY | ~2020-01-17 | XMS | Encounter Summary ---
Demographics + + + | Address | [address] | | | [place] [address] | + + + | Home Phone [...] Team Providers + +------+ + | Care Electron Gun Assembler Name | Role | Phone | + [...] + + | 06/01/ | Telephone | [facility] | Tyler, | Medication Prior | | 2019 | | NEUROLOGY [address] | [place] [address] | Authorization (Cover | | | | [address] | | my meds PA- [employer] | | | | [place], [place] | | 140 mg requested by | | | | [address] | | Dr. Andrews); | | | | [phone] | | Other (Placed on | | [...] May 2019- May 2020. Reason for denial: [facility] does not cover all services and supplies. Unable to be cov ered under [facility] due to dual coverage. [facility] does not cover medication unde r patient's benefits. Please ask pharmacy to bill Medicare Part D benefits for medication. E lectronically signed by Rowena Scott CMA at 06/10/2019 8:10 AM PSTTelephone Encounter - Rowena Scott CMA - 06/01/2019 2:58 PM PSTStarted PA for [employer]ovig 140 SQ inject. On cover my meds. Gaston # (Gaston: [id number]) Message prompt: [facility] has not yet replied to your PA request. If [facility] has not replied to your request within 24 hours, please contact [facility] at [phone]. Will await for response. 3:0 1 PM [...] [place], | | | | | | [place] [address] | | | | | | [phone] | | | | | | | | +--------+ + + + + | 03/22/ | Office | Neurology | Elaine Andrews, | | | 2020 | Visit | | MD Kim STOUT | | | | | | [address] | | | | | | [place] [address] | | | | | | [phone] | | | | | | | | +--------+ + + + + documented as of this encounter Visit Diagnoses Not on filedocumented in this encounter"
--- OUTSIDE RECORDS SUMMARY | ~2020-01-17 | XMS | Encounter Summary ---
Demographics + + + | Address | [address] | | | [place] [address] | + + + | Home Phone [...] + | Author | [facility] | | | and [place] | + + + | Organization | [facility] | | | [...] Team Providers + +------+ + | Care Bottom Loader Name | Role | Phone | + +------+ + PCP | Unavailable | + +------+ + Encounter Details +--------+ + + + + | Date | Type | Department | Care Team | Description | +--------+ + + + + | 01/08/ | Hospital | [facility] | Fabián Salas | | | 2010 - | Encounter | MED CTR [facility] | MD Miller [address] | | | | | CENTER [address] | [address] | | | 02/04/ | | [place] | [place] [address] | | | 2010 | | [address] | [phone] | | | | | [phone] | | | +--------+ + + + [...] 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 [place] is the [...] | | | | | | [place] [address] | | | | | | [phone] | | | | | | | | +--------+ + + + + | 03/22/ | Office | Neurology | Helen Andrewsitha, | | | 2019 | Visit | | MD Kim STOUT | | | | | | [address] | | | | | | [place] [address] | | | | | | [phone] | | | | | | | [...] | + +--------+ + + + | FACTOR Rosibel [place] | Routin | 01/08/2011 | | [...] Testing | 65 - 140 % | TOÑO | | | activity | Performed: Toño | | [facility] | | | | [facility] | | MEDICAL | | | | [place], [address], | | CENTER - | | | | [place] [address] | | LABORATORY | | | | CLIA: [id number] | | | | + + + + + + + + | Specimen | + + | | + + + + + + + | Performing | Address | City/State/Zipcode | Phone Number | | Organization | | | | + + + + + | [facility] | [address] | [place], [place] | [phone] | | [facility] | | [address] | | | - LABORATORY | | | | + + + + + | [facility] | [address] | [place], [place] | | | [facility] | | [id number] [place] [address] | | | - LABORATORY | | [...] [facility] | | | activity | Performed: [facility] | | [facility] | | | | [facility] | | MEDICAL | | | | [place] [address], | | [place] - | | | | [place] [address] | | LABORATORY | | | | CLIA: [id number] | | | | + + + + + + + + | Specimen | + + | | + + + + + + + | Performing | Address | City/State/Zipcode | Phone Number | | Organization | | | | + + + + + | [facility] | [address] | [place], [place] | [phone] | | [facility] | | [address] | | | - LABORATORY | | | | + + + + + | [facility] | [address] | [place] | | | [facility] | | [id number] | | | - [...] equal to 1.2 are | | [facility] | | | | negative for the Lupus | | MEDICAL | | | | Inhibitor. Testing | | CENTER - | | | | Performed: [facility] | | LABORATORY | | | | [facility] | | | | | | [place], [address], | | | | | | [place] [address] | | | | | | CLIA: [id number] | | | | + + + + + + + + | Specimen | + + | | + + + + + + + | Performing | Address | City/State/Zipcode | Phone Number | | Organization | | | | + + + + + | [facility] | [address] | [place] | [phone] | | [facility] | | [address] | | | - LABORATORY | | | | + + + + + | [facility] | [address] | [place] | | | [facility] | | [address] | | | - [...] | Real Time PCR | () | [facility] | | | [...] | | | | | agreement with [employer] | | | | | | [employer] | | | | | | [...] Toño | | | | | | [facility] | | | | | | [place], [address], | | | | | | [place] [address] | | | | | | CLIA: [id number] | | | | + + + + + + + + | Specimen | + + | | + + + + + + + | Performing | Address | City/State/Zipcode | Phone Number | | Organization | | | | + + + + + | [facility] | [address] | [place] | [phone] | | [facility] | | [address] | | | - LABORATORY | | | | + + + + + | [facility] | [address] | [place] | | | [facility] | | [address] | | | - [...] (H) | 31.8 - 45.7 sec | [facility] | | | | | | STRadha [...] Performed: | | | | | | [facility] | | | | | | [facility], [address] | | | | | | [address] [place] [address] | | | | | | CLIA: [id number] | | | | + + + + + + + + | Specimen | + + | | + + + + + + + | Performing | Address | City/State/Zipcode | Phone Number | | Organization | | | | + + + + + | [facility] | [address] | [place] | [phone] | | [facility] | | [address] | | | - LABORATORY | | | | + + + + + | [facility] | [address] | [place] | | | [facility] | | [id number] [place] [address] | | | - LABORATORY | | [...] CENTER - | | | | Performed: [facility] | | LABORATORY | | | | [facility] | | | | | | [place], [address], | | | | | | [place] [address] | | | | | | CLIA: [id number] | | | | + + + + + + + + | Specimen | + + | | + + + + + + + | Performing | Address | City/State/Zipcode | Phone Number | | Organization | | | | + + + + + | [facility] | [address] | [place], [place] | [phone] | | [facility] | | [address] | | | - LABORATORY | | | | + + + + + | [facility] | [address] | [place] | | | [facility] | | [address] | | | - [...] Testing | 21 - 33 mg/dL | ROSELYNE | | | n III | Performed: [facility] | | [facility] | | | Antigen | [facility] | | MEDICAL | | | | [place], [address] , | | CENTER - | | | | [place] [address] | | LABORATORY | | | | CLIA: [id number] | | | | + + + + + + + + | Specimen | + + | | + + + + + + + | Performing | Address | City/State/Zipcode | Phone Number | | Organization | | | | + + + + + | [facility] | [address] | [place], [place] | [phone] | | [facility] | | [address] | | | - LABORATORY | | | | + + + + + | [facility] | [address] | [place] | | | [facility] | | [address], [facility] | | | - LABORATORY [...] [facility] | | | Time, | Performed: [facility] | | STR[facility]ha [facility] | | | Control | [facility] | | MEDICAL | | | | [place], [address] , | | CENTER - | | | | [place] [address] | | LABORATORY | | | | CLIA: [id number] | | | | + + + + + + + + | Specimen | + + | | + + + + + + + | Performing | Address | City/State/Zipcode | Phone Number | | Organization | | | | + + + + + | [facility] | [address] | [place] | [phone] | | [facility] | | [address] | | | - LABORATORY | | | | + + + + + | [facility] | [address] | [place] | | | [facility] | | [address], [facility] | | | - LABORATORY [...] APS U/mL | [facility] | | | tijorgeerine | | | [facility] | | [...] Performed: | | | | | | [place], [address], | | | | | | [place] [address] | | | | | | CLIA: [id number] | | | | + + + + + + + + | Specimen | + + | | + + + + + + + | Performing | Address | City/State/Zipcode | Phone Number | | Organization | | | | + + + + + | [facility] | [address] | [place], [place] | [phone] | | [facility] | | [address] | | | - LABORATORY | | | | + + + + + | [facility] | [address] | [place], [place] | | | [facility] | | [address], [facility] | | | - LABORATORY [...] Testing | 85 - 126 % | [facility] | | | N ACTIVITY | Performed: [facility] | | [facility] | | | | [facility] | | MEDICAL | | | | [place] , | | CENTER - | | | | [place] [address] | | LABORATORY | | | | CLIA: [id number] | | | | + + + + + + + + | Specimen | + + | | + + + + + + + | Performing | Address | City/State/Zipcode | Phone Number | | Organization | | | | + + + + + | [facility] | [address] | [place] | [phone] | | [facility] | | [address] | | | - LABORATORY | | | | + + + + + | [facility] | [address] | [place], [place] | | | [facility] | | [address], [facility] | | | - LABORATORY [...] | Time | | seconds | [facility] | | | | | | MEDICAL | | | | | | CENTER - | | | | | | LABORATORY | | + + + + + + | INR | 1.0Comment: INR: USUAL | 0.9 - 1.1 | [facility] | | | | ORAL ANTICOAGULATION | | [facility] | | | | RANGE | [...] + | [facility] | [address] | [place] | [phone] | | [facility] | | [address] | | | - LABORATORY | | | | + + + + + | [facility] | [address] | [place], [place] | | | [facility] | | [address] | | | - LABORATORY | | | | + + + + + Fibrinogen (01/08/2011 12:47 PM PDT) + +---------+ + + + | Component | Value | Ref Range | Performed | Pathologist | | | | | At | Signature | + +---------+ + + + | Fibrinogen | 608 (H) | 219 - 468 mg/dL | [facility] | | | | | | [facility] | | | | | | MEDICAL [...] + | [facility] | [address] | [place] | [phone] | | [facility] | | [address] | | | - LABORATORY | | | | + + + + + | [facility] | [address] | [place], [place] | | | [facility] | | [address] | | | - [...] + | [facility] | [address] | [place], [place] | [phone] | | [facility] | | [address] | | | - LABORATORY | | | | + + + + + | [facility] | [address] | [place], [place] | | | [facility] | | [address], [facility] | | | - LABORATORY [...] (H) | 70 - 109 mg/dL | [facility] | | | | | [...] | | Phosphatase | | | [facility] | | [...] 9 | 7 - 18 mg/dL | [facility] | | | | | | [facility] | | | | | | MEDICAL | | | | | | CENTER - | | | | | | LABORATORY | | + + + + + + | Creatinine | 0.58 (L) | 0.60 - 1.30 | [facility] | | | | | mg/dL | [facility] | | | | [...] + | [facility] | [address] | [place], [place] | [phone] | | [facility] | | [address] | | | - LABORATORY | | | | + + + + + | [facility] | [address] | [place], [place] | | | [facility] | | [id number] [place] [address] | | | - LABORATORY | | | | + + + + + Lactate Dehydrogenase (01/08/2011 12:47 PM PDT) + +-------+ + + + | Component | Value | Ref Range | Performed | Pathologist | | | | | At | Signature | + +-------+ + + + | LDH TOTAL | 154 | 91 - 180 IU/L | [facility] | | | | [...] + | [facility] | [address] | [place] | [phone] | | [facility] | | [address] | | | - LABORATORY | | | | + + + + + | [facility] | [address] | [place], [place] | | | [facility] | | [address], [facility] | | | - LABORATORY [...] | | | Cells | | | [facility] | | | | | | MEDICAL | | | | | | CENTER - | | | | | | LABORATORY | | + + + + + + | Red Blood | 4.75 | 3.70 - 5.20 | [facility] | | | Cells | | M/uL | [facility] | | | | | | MEDICAL | | | | | | CENTER - | | | | | | LABORATORY | | + + + + + + | Hemoglobin | 12.6 | 11.5 - 16.0 | [facility] | | | | | gm/dL | [facility] | | | | | | [...] | | | Eosinophils | | | [facility] | | | | | | MEDICAL | | | | | | CENTER - | | | | | | LABORATORY | | + + + + + + | % Basophils | 0.6 | 0 - 1 % | [facility] | | | | | | [facility] | | | | | | [...] 0.0 | 0.0 - 0.1 K/uL | [facility] | | | Basophils | | | [facility] | | [...] + | [facility] | [address] | [place] | [phone] | | [facility] | | [address] | | | - LABORATORY | | | | + + + + + | [facility] | [address] | [place] | | | [facility] | | [address] [place] [address] | | | - LABORATORY | | | | + + + + + documented in this encounter Visit Diagnoses Not on filedocumented in this encounter"
--- OUTSIDE RECORDS SUMMARY | ~2020-01-17 | XMS | Encounter Summary ---
Demographics + + + | Address | [address] | | | [place] [address] | + + + | Home Phone [...] Team Providers + +------+ + | Care Composition Mixer Name | Role | Phone | + +------+ + PCP | Unavailable | + +------+ + Encounter Details +--------+ + + + + | Date | Type | Department | Care Team | Description | +--------+ + + + + | 07/19/ | Hospital | [facility] IP | Conversion | Pain | | 2015 | Encounter | CONVERSION [address] | Transaction, | | | | | [address] | Provider Unknown | | | | | [place], [place] | [phone] | | | | | [address] | (Fax) | | | | | [phone] | | | +--------+ + + + [...] | | | | | | [place] [address] | | | | | | [phone] | | | | | | | | +--------+ + + + + | 03/22/ | Office | Neurology | Elaine Andrews, | | | 2019 | Visit | | MD Kim STOUT | | | | | | [address] | | | | | | [place] [address] | | | | | | [phone] | | | | | | | [...] + + | Ermias Braxton - 11/20/2018 4:49 AM PDT This is a non-reportable procedure | | without a radiologist report and isused for image storage only | + + documented in this encounter Visit Diagnoses + + | Diagnosis | + + | Pain Generalized pain | + + documented in this encounter"
--- OUTSIDE RECORDS SUMMARY | ~2020-01-17 | XMS | Encounter Summary ---
Demographics + + + | Address | [address] | | | [place] [address] | + + + | Home Phone | | + + + | Preferred Language | Unknown | + + + | Marital Status | | + + + | Cheondoism Affiliation | Unknown | + + + | Race | White | + + + | Ethnic Group | Not or | + + + Author + + + | Author | [facility] | | | and [place] | + + + | Organization | [facility] | | | [...] Team Providers + +------+ + | Care Caul Dresser Name | Role | Phone | + +------+ + | Mynor Kam MD | PCP | | + +------+ + Encounter Details +--------+ + + + + | Date | Type | Department | Care Team | Description | +--------+ + + + + | 06/26/ | Orders Only | [facility] | Matt, | | | 2017 | | PULMONOLOGY [address] | Esperanza Arora, | | | | | [address] | [address] | | | | | [place], [place] | [place] [address] [place], | | | | | [address] | [place] [address] | | | | | [phone] | [phone] | | | | | | | [...] | | | | | | [place] [address] | | | | | | [phone] | | | | | | | | +--------+ + + + + | 03/22/ | Office | Neurology | Elaine Andrews, | | | 2019 | Visit | | MD Kim STOUT | | | | | | [address] | | | | | | [place] [address] | | | | | | [phone] | | | | | | | | +--------+ + + + + documented as of this encounter Visit Diagnoses Not on filedocumented in this encounter"
--- OUTSIDE RECORDS SUMMARY | ~2020-01-17 | XMS | Encounter Summary ---
Demographics + + + | Address | [address] | | | [place] [address] | + + + | Home Phone [...] Team Providers + +------+ + | Care Wringer And Setter Name | Role | Phone | + +------+ + PCP | Unavailable | + +------+ + Encounter Details +--------+ + + + + | Date | Type | Department | Care Team | Description | +--------+ + + + + | 10/06/ | Hospital | [facility] GENER[facility] IP | Conversion | Unknown cause of | | 2015 | Encounter | CONVERSION [address] | Transaction, | injury | | | | [address] | Provider Unknown | | | | | [place] | [phone] | | | | | [address] | | | | | | [phone] | | | +--------+ + + + [...] [place], | | | | | | [place] [address] | | | | | | [phone] | | | | | | | | +--------+ + + + + | 03/22/ | Office | Neurology | Elaine Andrews, | | | 2019 | Visit | | MD Kim STOUT | | | | | | [address] | | | | | | [place] [address] | | | | | | [phone] | | | | | | | [...] | + + | Ermias Braxton - 11/19/2018 7:20 PM PDT This is a non-reportable procedure | | without a radiologist report and isused for image storage only | + + documented in this encounter Visit Diagnoses + + | Diagnosis | + + | Unknown cause of injury Unspecified accident | + + documented in this encounter"
--- OUTSIDE RECORDS SUMMARY | ~2020-01-17 | XMS | Encounter Summary ---
Demographics + + + | Address | [address] | | | [place] [address] | + + + | Home Phone [...] Team Providers + +------+ + | Care Water Technician Name | Role | Phone | + +------+ + PCP | Unavailable | + +------+ + Encounter Details +--------+ + + + + | Date | Type | Department | Care Team | Description | +--------+ + + + + | 05/05/ | Hospital | [facility] | Estefania Brannon DO | Acute respiratory | | 2013 - | Encounter | [facility] | [address] | failure (HCC); | | | | INTENSIVE CARE UNIT | [place] [address] | Abnormal LFTs (liver | | 05/14/ | | [address] | [phone] | function tests); | | 2013 | | [place], [place] | | Acute respiratory | | | | [address] | | distress syndrome | | | | [phone] | | (ARDS) ([facility]); | | | | | | Influenza A; Morbid | | | | | | obesity with BMI of | | | | | | 45.0-49.9, adult | | | | | | ([facility]); Poorly | | | | | | controlled diabetes | | | | | | mellitus ([facility]); | | | | | | [...] Al Houston MD Service: (none) Author Type: Systems Design Engineer Filed: 05/14/1343 Date of Service: 05/14/13832 Status: Signed Steam Power Plant Operator: Al Houston MD (Physician) [facility] Service: Systems Design Engineer Discharge Summary Gilma Salmon 47 y.o. Date [...] ventilation initiated on May 01, 2013 at [facility]. HOSPITAL COURSE: May 06, 2013: PICC andright [...] Procedure: TRACHEOSTOMY; Surgeon: Shalonda Novoa MD; Location: [facility] MAIN OR; Service: ENT ; Laterality: N/A; move to OR table, need harmonic scalpel with focus HP, patient [address] edil[address] nds Medication List As of 05/14/2013 8:33 AM Condition on Discharge: Stable, to [facility] [place] Code Status: Full Code Primary Care Physician: [...] Date of Service: 05/14/13 1322 Status: Signed Steam Power Plant Operator: Bryanna Keenan RN (Registered Nurse) Transport here [...] Date of Service: 05/14/13 1043 Status: Signed Steam Power Plant Operator: Bryanna Keenan RN (Registered Nurse) Report given to Maggy at [facility] in [facility] onver elaina Transaction, Provider Unknown - 05/14/2013 8:33 AM PST Case Management by MARTHA Kunz at 05/14/13 0833 Author: MARTHA Kunz Service: (none) Author Type: Tubing Supervisor Filed: 05/14/13 0834 Date of Service: 05/14/13832 Status: Signed Steam Power Plant Operator: MARTHA Kunz (Tubing Supervisor) Received t/c from [facility] with [employer]. AMbulance Auth # is [id number] for [facility] services. Called [facility] to verify their continuous pickling line pickler time (12:30) and also called pt's bharath white to verify that pt is being transferred today. onver elaina Transaction, Provider Unknown - 05/14/2013 8:31 AM PST Case Management by MARTHA Kunz at 05/14/13830 Author: MARTHA Kunz Service: (none) Author Type: Tubing Supervisor Filed: 05/14/13831 Date of Service: 05/14/13830 Status: Signed Steam Power Plant Operator: MARTHA Kunz (Tubing Supervisor) Disposition: [facility] Transportation:[facility] [phone] All orders, signed AVS, and prescriptions have [...] Al Houston MD Service: (none) Author Type: Systems Design Engineer Filed: 05/14/13840 Date of Service: 05/14/13827 Status: Addendum Steam Power Plant Operator: Al Houston MD (Physician) Related Notes: Original Note by Al Houston MD (Physician) filed at 05/14/13832 [facility] Service: Systems Design Engineer Progress Note Gilma Salmon 47 y.o. Hospital [...] ventilation initiated on May 01, 2013 at [facility]. ICU TIMELINE:The patient is admitted on May [...] Procedure: TRACHEOSTOMY; Surgeon: Shalonda Novoa MD; Location: [facility] MAIN OR; Service: ENT ; [...] original. Progress Notes by Erlinda David MS CCC-CASTING SORTER at 05/13/13 8729 Author: Erlinda David MS CCC-CASTING SORTER Service: (none) Author Type: Speech and Plywood Scarfer Tender ologist Filed: 05/13/13 1604 Date of Service: 05/13/13 1603 Status: Signed Steam Power Plant Operator: Erlinda David MS CCC-CASTING SORTER (Speech and Language Pathologist) 05/13/13 1500 General [...] are being met at this time. Rec CASTING SORTER f/u at place of d/c. onver elaina Transaction, Provider Unknown - 05/13/2013 3:43 PM PST Case Management by MARTHA Kunz at 05/13/13 1543 Author: MARTHA Kunz Service: (none) Author Type: Tubing Supervisor Filed: 05/13/13 4714 Date of Service: 05/13/13 154 Status: Signed Steam Power Plant Operator: MARTHA Kunz (Tubing Supervisor) Received t/c from [facility] with [facility] ([phone]). He is requesting a return call if f or some reason pt is not able to transfer to [place] tomorrow. His crew plans to wrrive here between 11:30-12:00 if not called. Informed Unit BEAM DYER OPERATOR and Lead RN. Al Gonzalez MD - 05/13/2013 3:43 PM PSTFormatting of this note might be different from the o riginal. Progress Notes by Al Houston MD at 05/13/13 9993 Author: Al Houston MD Service: (none) Author Type: Systems Design Engineer Filed: 05/13/13 1555 Date of Service: 05/13/13 1543 Status: Signed Steam Power Plant Operator: Al Houston MD (Physician) [facility] Service: Systems Design Engineer Progress Note Gilma Salmon 47 y.o. Hospital [...] ventilation initiated on May 01, 2013 at [facility]. ICU TIMELINE:The patient is admitted on May [...] Procedure: TRACHEOSTOMY; Surgeon: Shalonda Novoa MD; Location: [facility] MAIN OR; Service: ENT ; [...] Date of Service: 05/13/13 1518 Status: Signed Steam Power Plant Operator: Juanita Herman RN (Registered Nurse) Report received from HERIBERTO Bartlett and care assumed. Pt resting in bed with no complaints at t his time. JUANITA HERMAN 05/13/2013 3:19 PM onver elaina Transaction, Provider Unknown - 05/13/2013 1:35 PM PST Progress Notes by Edis Ken PT at 05/13/13 1335 Author: Edis Ken PT Service: (none) Author Type: Physical Therapist Filed: 05/13/13 0985 Date of Service: 05/13/13 1335 Status: Signed Steam Power Plant Operator: Edis Ken PT (Physical Therapist) 05/13/13 1335 [...] therapy (Pt. to d/c to LTAC in [place] tomorrow per notes) Equipment Recommended (May need [...] therapy (Pt. to d/c to LTAC in [place] tomorrow per notes) Equipment Recommended (May need use of 4WW initially for UE support) Prior Function Level of [place] Independent with functional mobility;Independent with ADLs;Independe nt [...] Author: MARTHA Kunz Service: (none) Author Type: Tubing Supervisor Filed: 05/13/13 1048 Date of Service: 05/13/131041 Status: Signed Steam Power Plant Operator: MARTHA Kunz (Tubing Supervisor) Met with pt and family to update. Pt has now made the decision to go to [facility] in [place] where her mother and sister live. Spoke with Edilberto [facility] liason who states that they are working on insurance auth. They are prepared to accept pt tomorrow to the [facility]. RN-RN report # is [phone] x [phone], report # is [phone] (Dr. Alli brown) . Made arrangements with [facility] [phone] to continuous pickling line pickler pt at 11:30 tomorrow morning. Transfer work completed and placed on pt chart. onver elaina Transaction, Provider Unknown - 05/13/2013 9:26 AM PST Case Management by MARTHA Kunz at 05/13/13925 Author: MARTHA Kunz Service: (none) Author Type: Tubing Supervisor Filed: 05/13/13 1021 Date of Service: 05/13/13925 Status: Addendum Steam Power Plant Operator: MARTHA Kunz (Tubing Supervisor) Related Notes: Original Note by MARTHA Kunz (Tubing Supervisor) filed at 05/13/13948 Spoke with pt's insurance bilingual case manager Kathleen ([phone]) and Lupe ([phone]) t o discuss LTAC transfer. I also spoke with Dara Maec from [facility] who states abi t beds are opening up. Dara will get back to me juan as to whether the beds will be avail able tomorrow or Friday. [facility]. Wa iting to hear back about from insurance as to whether they will agree to letting pt stay in [facility] until Friday if bed is not available at [facility] until Friday. Called [facility] to notify that there may be a transport Friday/Friday. Informed family of current issues r egarding bed availability and insurance auth. Received t/c from Gregor Mccain at [place] (ph: [phone], fax:[phone]) indicating th at they have a bed available at their [facility]. He is aware that the [facility] is [facility] due to proximity. Monroe Mohan MD - 05/12/2013 6:57 PM PSTFormatting of this note might be different from the origi nal. Progress Notes by Shalonda Novoa MD at 05/12/131856 Author: Shalonda Novoa MD Service: (none) Author Type: Physician Filed: 05/12/131913 Date of Service: 05/12/131856 Status: Signed Steam Power Plant Operator: Shalonda Novoa MD (Physician) [facility] Service: Otolaryngology Progress Note Hospital Day: LOS: 7 days Post-Op Day: 1 Day Post-Op SUBJECTIVE The patient is a 47 y.o. female with morbid obesity who was transferred to [facility] on Apr with the diagnosis of ARDS with influenza A, on Tamiflu. She also has a histor y of poorly controlled diabetes type 2, asthma and bronchitis with prior DVT. The patient wa s admitted on May 05, 2013. Mechanical ventilation initiated on May 01, 2013 at [facility]. A-line placed right radial artery May 06, [...] sulfate, nystatin, ny statin, ondansetron, ondansetron, pancrelipase (Sev-Xoty-Garb) 10,000 units, petrolatum, jerri sphorus, potassium chloride, [...] 05/12/131756 Date of Service: 05/12/131749 Status: Signed Steam Power Plant Operator: Esperanza Gutierrez MD (Physician) [facility] Service: Systems Design Engineer Progress Note Gilma Salmon 47 y.o. Hospital [...] ventilation initiated on May 01, 2013 at [facility]. ICU TIMELINE:The patient is admitted on May [...] care as above. Family has met with [facility] repr esentative and plan to go to that facility once patient is stable for discharge. Code Status: Full Code *Please bill 45 minutes of critical care time spent evaluating the patient, reviewing the d trish and formulating a plan exclusive of all other procedures. Esperanza Gutierrez MD 05/12/2013 5:50 PM Ash Padilla, MS [facility]CASTING SORTER - 05/12/2013 4:29 PM PSTFormatting of this note might be different from th e original. Progress Notes by Ysabel Lucero MS CCC-CASTING SORTER at 05/12/13 1629 Author: Ysabel Lucero MS CCC-CASTING SORTER Service: (none) Author Type: Speech and Language Pathol ogist Filed: 05/12/13 1633 Date of Service: 05/12/13 1629 Status: Signed Steam Power Plant Operator: Ysabel Lucero MS CCC-CASTING SORTER (Speech and Language Pathologist) 05/12/13 1628 CASTING SORTER Last Visit CASTING SORTER Received On 05/12/13 Requires CASTING SORTER Follow Up On hold (CASTING SORTER to complete eval in am) Pt and family given communication board so pt is able to indicate what she needs/wants. Pt indicated she is too sick and didn't want to participate in an eval today. RN reports pt ceja s been throwing up through trach, CASTING SORTER to con't to follow for possible pmv placement when pt is appropriate. YSABEL LUCERO MS CCC-CASTING SORTER 05/12/2013 onversion Saldana saction, Provider Unknown - 05/12/2013 2:35 PM PSTFormatting of this note might be differen t from the original. Progress Notes by Deshawn Hernandez at 05/12/13 1435 Author: Deshawn Hernandez Service: (none) Author Type: Filed: 05/12/13 1436 Date of Service: 05/12/13 1435 Status: Signed Steam Power Plant Operator: Deshawn Hernandez () Participated in interdisciplinary rounds with Dr. Gutierrez, civil engineering project designer. Pt is scheduled fo r transfer to LTAC. CHARGE HAND sorting out location with family. Family is supported by their [facility] community. Deshawn Hernandez [facility] onver elaina Transaction, Provider Unknown - 05/12/2013 1:10 PM PST Progress Notes by Joselyn Knutson RN at 05/12/13 1310 Author: Joselyn Knutson RN Service: Wound/Ostomy Care Author Type: Registered Nurse Filed: 05/12/13 1312 Date of Service: 05/12/13 1310 Status: Signed Steam Power Plant Operator: Joselyn Knutson RN (Registered Nurse) Patient seen today by shape hand for evaluation due to a low Huang [...] Author: MARTHA Kunz Service: (none) Author Type: Tubing Supervisor Filed: 05/12/13 1014 Date of Service: 05/12/13 1008 Status: Signed Steam Power Plant Operator: MARTHA Kunz (Tubing Supervisor) Received t/c from [facility] who states that they do not have an y beds until the end of the week. Met with patient and family to discuss other options. They do not want pt to go to [facility] or [place]. They are agreeable to me making referrals to [facility] and [facility] as a back up plan if [facility] has no beds by Friday. Faxed clini christi to [facility] (fax: [phone], ph: [phone]) and [facility] (fax: [phone], ph: [phone]). Await return calls regarding bed availability and whether they are a contracted facility with insurance. oncaty delaney Transaction, Provider Unknown - 05/11/2013 3:41 PM PST Case Management by MARTHA Kunz at 05/11/13 1541 Author: MARTHA Kunz Service: (none) Author Type: Tubing Supervisor Filed: 05/11/13 1546 Date of Service: 05/11/13 1541 Status: Signed Steam Power Plant Operator: MARTHA Kunz (Tubing Supervisor) Provided gas voucher to pt's daughter who is returning to [place] tomorrow and coming figueroa k on . Family informed me this morning that they do not want the pt to go to [facility] after all. They have chosen [facility] as their first choice and [facility] as their second ch oice. At this time [facility] has no beds but may on . Pt is to be trached today and pe gged tomorrow. REferral made to cecily Barbosa for [facility] ([phone]) who will have insurance check into whether they are contracted or not. I notified Tarsha Washington from [facility] that the family has chosen a different facility. Will complete transfer paperwork once I kno w if [facility] has a bed available. Notified [facility] of possible transfer on . Anabelle boone, NICANOR Crisostomo - 05/11/2013 12:12 PM PSTFormatting of this note might be different f rom the original. Progress Notes by NICANOR Martines at 05/11/13 1212 Author: NICANOR Martines Service: Systems Design Engineer Author Type: Systems Design Engineer Filed: 05/11/13 1528 Date of Service: 05/11/13 1212 Status: Signed Steam Power Plant Operator: NICANOR Martines (Nurse Practitioner) [facility] Service: Systems Design Engineer Progress Note Gilma Salmon 47 y.o. Hospital [...] ventilation initiated on May 01, 2013 at [facility]. ICU TIMELINE:The patient is admitted on May [...] care as above. Family has met with [facility] lia naqvitive and plan to go to [...] Author: MARTHA Kunz Service: (none) Author Type: Tubing Supervisor Filed: 05/10/13 8472 Date of Service: 05/10/131436 Status: Signed Steam Power Plant Operator: MARTHA Kunz (Tubing Supervisor) Attended morning rounds. Pt will likely be trached/pegged in the next 1-2 days. Met with p t's daughter to discuss LTAC options. They say that their father is still very sick at home with the flu and has asked them to assist with decision-making. LTAC options given. Daughter s are interested in [facility] [place] as first choice and [facility] as second cho ice. I faxed clinical to [facility] ((fax [phone]) and spoke with the T[facility]ha tony ([phone]) who will plan to meet with pt's daughters tomorrow at 11:00. Salome Simms ARNP - 05/10/2013 7:25 AM PSTFormatting of this note might be different f rom the original. Progress Notes by NICANOR Martines at 05/10/13724 Author: NICANOR Martines Service: Systems Design Engineer Author Type: Systems Design Engineer Filed: 05/10/13811 Date of Service: 05/10/13724 Status: Signed Steam Power Plant Operator: NICANOR Martines (Nurse Practitioner) [facility] Service: Systems Design Engineer Progress Note Gilma Salmon 47 y.o. Hospital [...] ventilation initiated on May 01, 2013 at [facility]. ICU TIMELINE:The patient is admitted on May [...] will call Dr. novoa today who is international operations manager from [facility] the office is not open [...] Notes by Esperanza Gutierrez MD at 05/09/13 0041 Author: Esperanza Gutierrez MD Service: Systems Design Engineer Author Type: Physician Filed: 05/09/131820 Date of Service: 05/09/131810 Status: Signed Steam Power Plant Operator: Esperanza Gutierrez MD (Physician) [facility] Service: Systems Design Engineer Progress Note Gilma Salmon 47 y.o. Hospital [...] init iated on May 01, 2013 at [facility]. A-line placed right radial artery J anuary [...] Notes by Han Guerrero DMD at 05/08/13 1791 Author: Han Guerrero DMD Service: Systems Design Engineer Author Type: Physician Filed: 02/01/14 2221 Date of Service: 05/08/132213 Status: Addendum Steam Power Plant Operator: Han Guerrero DMD (Dentist) Related Notes: Original Note by Han Guerrero DMD (Dentist) filed at 05/08/132215 [facility] Service: Systems Design Engineer PM note Gilma Salmon 47 y.o. Evaluated [...] Notes by Esperanza Gutierrez MD at 05/08/13 0934 Author: Esperanza Gutierrez MD Service: (none) Author Type: Physician Filed: 05/08/13 1503 Date of Service: 05/08/13 1444 Status: Signed Steam Power Plant Operator: Esperanza Gutierrez MD (Physician) [facility] Service: Systems Design Engineer Progress Note Gilma M Salmon 47 y.o. [...] init iated on May 01, 2013 at [facility]. A-line placed right radial artery J anuary [...] Case Management by MARTHA Kunz at 05/07/13 2485 Author: MARTHA Kunz Service: (none) Author Type: Tubing Supervisor Filed: 05/07/13 1347 Date of Service: 05/07/13 1333 Status: Signed Steam Power Plant Operator: MARTHA Kunz (Tubing Supervisor) 05/07/13 1331 Discharge Planning Evaluation Living Arrangements Spouse/significant other Support Systems Spouse/significant other;Children Type of Residence Private residence House type House-[facility] No Prior functional status Independent prior to admit. Was employed for [employer] in [place]. Met with: pt's 2 daughters Ashlyn and Juli and discussed discharge planning, Pt is a 47 y.o., female admitted with the flu and bilater al pneumonia. Pt is vented. Non smoker; has asthma. and lives with her Amado (22 years) in [place]. 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 He is sick with the flu as well so is no t coming in to visit the patient. Pt has a step-daughter in [place] and a son in [place]. 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 I a sked if they had a hindu that would support them. They are [facility] so I called product engineer Tim who got the girls connected with a local Griggs from the [employer] hindu and hopefully can assist wi th some housing. I offered gas vouchers if they need to transport back and forth from [facility]. CM to follow to provide support [...] Author: Joseph Steward Service: (none) Author Type: Hourly Manager Filed: 05/07/13 1223 Date of Service: 05/07/13 1221 Status: Signed Steam Power Plant Operator: Joseph Steward () Hourly Manager received call back from [employer] leader Luis Blunt, who then came promptly to ass ist dtrs with their needs. Chaplain Joseph Steward BCC Al Gonzalez MD - 05/07/2013 11:43 AM PSTFormatting of this note might be different from the o riginal. Progress Notes by Al Houston MD at 05/07/13 1143 Author: Al Houston MD Service: (none) Author Type: Systems Design Engineer Filed: 05/07/13 1223 Date of Service: 05/07/13 1143 Status: Signed Steam Power Plant Operator: Al Houston MD (Physician) [facility] Service: Systems Design Engineer Progress Note Gilma Salmon 47 y.o. Hospital [...] initi ated on May 01, 2013 at [facility]. A-line placed right radial artery [facility] 2013. Events Overnight: Trying to wean [...] insulin regular 1 unit/mL 1.6 Units/hr (05/06/13 9046) PHYSICAL EXAM Vital Signs: BP 112/60 | [...] Date of Service: 05/07/13 1035 Status: Signed Steam Power Plant Operator: Joseph Steward () Family referral for help in contacting local [facility] leadership for housing assistance for pt's 2 dtrs who are from [place]. Called/msg for local [facility] leader. Awaiting call back. Chaplain Joseph Steward BCC onver elaina Transaction, Provider Unknown - 05/06/2013 5:52 AM PST Progress Notes by Han Guerrero DMD at 05/06/13 0552 Author: Han Guerrero DMD Service: Systems Design Engineer Author Type: Physician Filed: 05/07/13 0448 Date of Service: 05/06/13 0552 Status: Signed Steam Power Plant Operator: Han Guerrero DMD (Dentist) Related Notes: Original Note by Han Guerrero DMD (Dentist) filed at 05/06/13 0610 [facility] Service: Systems Design Engineer Progress Note Gilma Salmon 47 y.o. Hospital [...] initi ated on May 01, 2013 at [facility]. A-line placed right radial artery [facility] 2013. Events Overnight: The patient had [...] sulfate, nystatin, nystatin, ondan setron, ondansetron, pancrelipase (Lvb-Rtdc-Xjzu) 10,000 units, petrolatum, phosphorus, pota ssium chloride, [...] Service: (none) Author Type: Physician Filed: 05/05/13 6315 Date of Service: 05/05/132244 Status: Signed Steam Power Plant Operator: Han Guerrero DMD (Dentist) [facility] Service: Systems Design Engineer PM note Gilma Leyva Teodora 47 y.o. [...] function tests) ASSESSMENT & PLAN Will need [place], decreased MV to 6 cc kg ibw, [...] 141 Date of Service: 05/05/131414 Status: Signed Steam Power Plant Operator: Jenniffer Hidalgo RPH (Pharmacist) Initiation of Vancomycin Pharmacy Dosing Gilma Salmon 47 y.o. female 1.676 m (5' 6") 138.9 kg (306 lb 3.5 oz) Body mass index is 49.45 kg/(m^2). [place] Body Weight: 59.3 kg Adjusted Body Weight: 91.1 kg CREATININE Date Value Range Status 05/05/2013 0.81 0.50 - 1.00 mg/dL Final Testing performed at [facility];[address] [facility];[place] [address] Estimated CrCl : CREATININE: 0.81 (05/05/13 1320) [...] Service: (none) Author Type: Pharmacist Filed: 05/05/13 1259 Date of Service: 05/05/13 1252 Status: Signed Steam Power Plant Operator: Jenniffer Hidalgo RPH (Pharmacist) Renal Dosing Monitoring: [...] H&P by Estefania Brannon DO at 05/05/13 0786 Author: Estefania Brannon DO Service: Systems Design Engineer Author Type: Systems Design Engineer Filed: 05/05/13 1509 Date of Service: 05/05/13 1309 Status: Addendum Steam Power Plant Operator: Estefania Brannon DO (Physician) Related Notes: Original Note by Estefania Brannon DO (Physician) filed at 05/05/13 1871 [facility] Service: Systems Design Engineer Admission History & Physical Gilma Salmon 47 y.o. Date of Admission: 05/05/2013 Requesting Physician: Dr. Hernandes, Hospitalist at [facility] Indication for ICU Admission: acute respiratory failure, [...] who pres ented to the ED at [facility] on 05/01 for cough and fever and was discharged home. She pr esented there again the next day with SOB, weakness, cough, fever and dizziness. She was the n admitted and tested positive for influenza A and was started on Tamiflu. She became progre ssively more hypoxemic with increasing b/l infiltrates on CXR and was transferred to [facility] for further management after she was intubated on the evening of 05/04. (Pt had just receiv ed flu shot on 04/29/13 at [facility]). REVIEW OF SYSTEMS A comprehensive review [...] for intubation: daily sedation holidays and keep [place] 2-3. CARDIOVASCULAR: Hemodynamically stable PULMONARY: Acute respiratory failure: due to Influenza A pneumonia. Will send sputum for cx as at r isk for secondary bacterial PNA. Will keep higher PEEP and wean FIO2 for sats >90%. Asthma: without e/o acute exacerbation. ETT a little high on CXR, will advance 2 cm. GI: Elevated AST/ALT: mild. Monitor. Had neg viral hepatitis serologies at [facility]. RENAL: Hypokalemia: replace and follow HypoMg: replace [...] Procedures by Shalonda Novoa MD at 05/11/13 9674 Author: Shalonda Novoa MD Service: (none) Author Type: Physician Filed: 05/11/13 3576 Date of Service: 05/11/13 3473 Status: Signed Steam Power Plant Operator: Shalonda Novoa MD (Physician) [facility] Service: Otolaryngology Operative Note Pre-operative Diagnosis: Respiratory Failure Post-operative Diagnosis: Same Procedure(s): Tracheostomy, Nasogastric tube insertion Surgeon: SHALONDA NOVOA MD Char Filter Tank Tender(s): Alexandrea LOUIS Anesthesia: General endotrachial anesthesia Estimated Blood Loss: Less Than 50 ml Other: #8 Shiley DCT tracheostomy tube, 10 Ug[place] nasogastric feeding tube Indications: 47 YOF with [...] 010 Date of Service: 05/06/13100 Status: Signed Steam Power Plant Operator: Han Guerrero DMD (Dentist) Procedure Orders: 1. Insert arterial line [[id number]] ordered by Han Guerrero DMD at 05/06/13 010 Post-procedure Diagnoses: 1. Acute respiratory failure (HCC) [518.81] [facility] Service: Systems Design Engineer BEDSIDE PROCEDURE NOTE Insert Arterial Line Date/Time: 05/05/2013 1:01 AM Performed by: HAN GUERRERO Authorized by: HAN GUERRERO Consent: The procedure was performed in an emergent situation. Patient identity confirmed: anonymous protocol, patient vented/unresponsive Time out: Immediately prior to procedure a "time out" was called to verify the correct gee ent, procedure, equipment, senior administrator support and site/side marked as required. Preparation: Patient [...] Consult* by Shalonda Novoa MD at 05/11/13 102 Author: Shalonda Novoa MD Service: (none) Author Type: Physician Filed: 05/11/13 1039 Date of Service: 05/11/13 1026 Status: Signed Steam Power Plant Operator: Shalonda Novoa MD (Physician) [facility] Service: Otolaryngology Initial Consult Note Date of Admission: 05/05/2013 Reason for Consultation: Respiratory Failure requiring mechanical ventilation Requesting Physician: Systems Design Engineer History Obtained From: daughter, chart review Date of Service: 05/10/2013 CHIEF COMPLAINT: Respiratory failure HISTORY OF PRESENT ILLNESS The patient is a 47 y.o. female with morbid obesity who was transferred to [facility] on 2013 with the diagnosis of ARDS with influenza A, on Tamiflu. She also has a history o f poorly controlled diabetes type 2, asthma and bronchitis with prior DVT. The patient was a dmitted on May 05, 2013. Mechanical ventilation initiated on May 01, 2013 at [facility]. A-line placed right radial [...] sulfate, nystatin, nystatin, ondansetron, on dansetron, pancrelipase (Afd-Hgav-Rkyq) 10,000 units, petrolatum, phosphorus, potassium chlo ride, potassium chloride, potassium chloride, sodium bicarbonate, sodium chloride 0.9 %, sod ium glycerophosphate IVPB 20 mMol, sodium glycerophosphate IVPB 45 mMol [DISCONTINUED] pancrelipase (Eec-Fjnu-Ynsa) 10,000 units, [DISCONTINUED] pancrelipase (Lip- Prot-Amyl) 10,000 [...] in the care of this patient. SHALONDA NOOVA MD 05/11/2013 documente d in this encounter Miscellaneous Notes Plan of Care - Conversion Transaction, Provider Unknown - 05/07/2013 9:42 AM PST Plan of Care by Ann Marie Garcia RN at 05/07/13941 Author: nAn Marie Garcia RN Service: (none) Author Type: Registered Nurse Filed: 05/07/13941 Date of Service: 05/07/13941 Status: Signed Steam Power Plant Operator: Ann Marie Garcia RN (Registered Nurse) Problem: [...] | | | | | | [place] [address] | | | | | | [phone] | | | | | | | | +--------+ + + + + | 03/22/ | Office | Neurology | Elaine Andrews, | | | 2019 | Visit | | MD [address] | | | | | | [address] | | | | | | [place] [address] | | | | | | [phone] | | | | | | | [...] | | | Fingerstick | performed at [facility];[address] | | LAB | | | | [address];[place], [place] | | | | | | [address] | | | | + + + [...] [address] | | | | | | [place] | | | | | | [address] | | | | + + + + + + | HEP B | NON REACTIVEComment: | | EXTERNAL | | | SURFACE | Testing performed at | | LAB | | | ANTIBODY | [facility], [address] | | | | | | [place] | | | | | | [address] | | | | + + + + + + | Hepatitis B | NON REACTIVEComment: | | EXTERNAL | | | Core Ab | Testing performed at | | LAB | | | Total | [facility], [address] | | | | | | [place] | | | | | | [address] | | | | + + + [...] | | | | performed at [facility], [address] | | | | | | [facility] [place], | | | | | | [place] [address] | | | | + + + + + + | HCV Ab | NON REACTIVEComment: | | EXTERNAL | | | | Testing performed at | | LAB | | | | [facility], [address] [facility] | | | | | | [place] | | | | | | [address] | | | | + + + [...] | | | | | | [facility], [address] [facility] | | | | | | [place] | | | | | | [address] | | | | + + + [...] | | | Fingerstick | performed at [facility];[address] | | LAB | | | | [address];[place] | | | | | | [address] | | | | + + + [...] Braxton Conversion - 11/20/2018 1:53 PM ISI MEDEROS CHEST 1 VIEW05/14/2013 | | 5:31 AM [...] | | | Fingerstick | performed at [facility];[address] | | LAB | | | | [address];[place], [place] | | | | | | [address] | | | | + + + [...] | | | Fingerstick | performed at [facility];[address] | | LAB | | | | [address];[place] | | | | | | [address] | | | | + + + [...] | | performed at [facility];[address] | mmol/L | LAB | | | | [address];[place], [place] | | | | | | [address] | | | | + + + [...] | | | Fingerstick | performed at [facility];[address] | | LAB | | | | [address];[place] | | | | | | [address] | | | | + + + [...] GILMA Leyva SALMON XR CHEST 1 VIEW 05/13/2013 5:34 [...] | | performed at [facility];[address] | | LAB | | | | [address];[place] | | | | | | [address] | | | | + + + + + + | Non- | 3.77Comment: Testing | 3.70 - 5.10 | EXTERNAL | | | Red Blood | performed at [facility];[address] | M/uL | LAB | | | Cells | [address];[place] | | | | | Counted | [address] | | | | + + + + + + | Hemoglobin | 10.4 (L)Comment: Testing | 11.3 - 15.5 | EXTERNAL | | | | performed at [facility];[address] | g/dL | LAB | | | | [address];[place] | | | | | | [address] | | | | + + + + + + | Hematocrit, | 30.3 (L)Comment: Testing | 34.0 - 46.0 % | EXTERNAL | | | POC | performed at [facility];[address] | | LAB | | | | [address];[place] | | | | | | [address] | | | | + + + + + + | MCV | 80.4Comment: Testing | 80.0 - 100.0 fl | EXTERNAL | | | | performed at [facility];[address] | | LAB | | | | [address];[place] | | | | | | [address] | | | | + + + + + + | MCH | 27.6Comment: Testing | 27.0 - 34.0 pg | EXTERNAL | | | | performed at [facility];[address] | | LAB | | | | [address];[place] | | | | | | [address] | | | | + + + + + + | MCHC | 34.3Comment: Testing | 32.0 - 35.5 | EXTERNAL | | | | performed at [facility];[address] | g/dL | LAB | | | | [address];[place] | | | | | | [address] | | | | + + + + + + | RDW-CV | 40.3Comment: Testing | 37 - 53 fl | EXTERNAL | | | | performed at [facility];[address] | | LAB | | | | [address];[place] | | | | | | [address] | | | | + + + + + + | Platelet | 544 (H)Comment: Testing | 150 - 400 K/uL | EXTERNAL | | | Count | performed at [facility];[address] | | LAB | | | Plasma | [address];[place] | | | | | | [address] | | | | + + + + + + | MPV | 6.6Comment: Testing | fl | EXTERNAL | | | | performed at [facility];[address] | | LAB | | | | [address];[place] | | | | | | [address] | | | | + + + + + + | Differentia | AUTOMATEDComment: | | EXTERNAL | | | l Type | Testing performed at | | LAB | | | | [facility];[address];[place] [address] | | | | + + + [...] | | performed at [facility];[address] | | LAB | | | | [address];[place], [place] | | | | | | [address] | | | | + + + [...] | | performed at [facility];[address] | mmol/L | LAB | | | | [address];[place] | | | | | | [address] | | | | + + + + + + | K | 3.5Comment: Testing | 3.5 - 4.9 | EXTERNAL | | | | performed at [facility];[address] | mmol/L | LAB | | | | [address];[place] | | | | | | [address] | | | | + + + + + + | Cl | 102Comment: Testing | 99 - 109 mmol/L | EXTERNAL | | | | performed at [facility];[address] | | LAB | | | | [address];[place] | | | | | | [address] | | | | + + + + + + | CO2 | 29Comment: Testing | 23 - 32 mmol/L | EXTERNAL | | | | performed at [facility];[address] | | LAB | | | | [address];[place] | | | | | | [address] | | | | + + + + + + | Anion Gap | 10Comment: Testing | 5 - 20 mmol/L | EXTERNAL | | | | performed at [facility];[address] | | LAB | | | | [address];[place] | | | | | | [address] | | | | + + + + + + | Glucose, | 106 (H)Comment: Testing | 65 - 99 mg/dL | EXTERNAL | | | Fasting | performed at [facility];[address] | | LAB | | | | [address];[place] | | | | | | [address] | | | | + + + + + + | BUN | 16Comment: Testing | 8 - 25 mg/dL | EXTERNAL | | | | performed at [facility];[address] | | LAB | | | | [address];[place] | | | | | | [address] | | | | + + + + + + | Creatinine | 0.55Comment: Testing | 0.50 - 1.00 | EXTERNAL | | | | performed at [facility];[address] | mg/dL | LAB | | | | [address];[place] | | | | | | [address] | | | | + + + + + + | BUN/Creatin | 30Comment: Testing | | EXTERNAL | | | ine Ratio | performed at [facility];[address] | | LAB | | | | [address];[place] | | | | | | [address] | | | | + + + + + + | Calcium | 8.5Comment: Testing | 8.5 - 10.2 | EXTERNAL | | | | performed at [facility];[address] | mg/dL | LAB | | | | [address];[place] | | | | | | [address] | | | | + + + + + + | Protein, | 7.5Comment: Testing | 6.3 - 8.2 g/dL | EXTERNAL | | | Total | performed at [facility];[address] | | LAB | | | | [address];[place] | | | | | | [address] | | | | + + + + + + | Albumin | 2.2 (L)Comment: Testing | 3.6 - 5.0 g/dL | EXTERNAL | | | | performed at [facility];[address] | | LAB | | | | [address];[place] | | | | | | [address] | | | | + + + + + + | Globulin | 5.3 (H)Comment: Testing | 1.3 - 4.9 g/dL | EXTERNAL | | | | performed at [facility];[address] | | LAB | | | | [address];[place] | | | | | | [address] | | | | + + + + + + | A/G Ratio | 0.4 (L)Comment: Testing | 1.0 - 2.4 | EXTERNAL | | | | performed at [facility];[address] | | LAB | | | | [address];[place] | | | | | | [address] | | | | + + + + + + | Bilirubin | 0.5Comment: Testing | 0.1 - 1.5 mg/dL | EXTERNAL | | | Total | performed at [facility];[address] | | LAB | | | | [address];[place] | | | | | | [address] | | | | + + + + + + | ALP, | 118 (H)Comment: Testing | 35 - 115 U/L | EXTERNAL | | | External | performed at [facility];[address] | | LAB | | | | [address];[place] | | | | | | [address] | | | | + + + + + + | AST | 69 (H)Comment: Testing | 10 - 45 U/L | EXTERNAL | | | | performed at [facility];[address] | | LAB | | | | [address];[place] | | | | | | [address] | | | | + + + + + + | ALT | 81 (H)Comment: Testing | 10 - 65 U/L | EXTERNAL | | | | performed at [facility];[address] | | LAB | | | | [address];[place] | | | | | | [address] | | | | + + + [...] | | | at [facility];[address];[place] [address] | | | | + + + [...] | | | Fingerstick | performed at [facility];[address] | | LAB | | | | [address];[place] | | | | | | [address] | | | | + + + [...] | | | Fingerstick | performed at [facility];[address] | | LAB | | | | [address];[place] | | | | | | [address] | | | | + + + [...] stomach. Electronically | | signed by Gorge Goznales MD on 05/12/2013 5:32 PM | |A [...] | | performed at [facility];[address] | mmol/L | LAB | | | | [address];[place] | | | | | | [address] | | | | + + + + + + | K | 4.0Comment: Testing | 3.5 - 4.9 | EXTERNAL | | | | performed at [facility];[address] | mmol/L | LAB | | | | [address];[place] | | | | | | [address] | | | | + + + + + + | Cl | 100Comment: Testing | 99 - 109 mmol/L | EXTERNAL | | | | performed at [facility];[address] | | LAB | | | | [address];[place] | | | | | | [address] | | | | + + + + + + | CO2 | 31Comment: Testing | 23 - 32 mmol/L | EXTERNAL | | | | performed at [facility];[address] | | LAB | | | | [address];[place] | | | | | | [address] | | | | + + + + + + | Anion Gap | 9Comment: Testing | 5 - 20 mmol/L | EXTERNAL | | | | performed at [facility];[address] | | LAB | | | | [address];[place] | | | | | | [address] | | | | + + + + + + | Glucose, | 179 (H)Comment: Testing | 65 - 99 mg/dL | EXTERNAL | | | Fasting | performed at [facility];[address] | | LAB | | | | [address];[place] | | | | | | [address] | | | | + + + + + + | BUN | 20Comment: Testing | 8 - 25 mg/dL | EXTERNAL | | | | performed at [facility];[address] | | LAB | | | | [address];[place] | | | | | | [address] | | | | + + + + + + | Creatinine | 0.67Comment: Testing | 0.50 - 1.00 | EXTERNAL | | | | performed at [facility];[address] | mg/dL | LAB | | | | [address];[place] | | | | | | [address] | | | | + + + + + + | BUN/Creatin | 29Comment: Testing | | EXTERNAL | | | ine Ratio | performed at [facility];[address] | | LAB | | | | [address];[place] | | | | | | [address] | | | | + + + + + + | Calcium | 8.8Comment: Testing | 8.5 - 10.2 | EXTERNAL | | | | performed at [facility];[address] | mg/dL | LAB | | | | [address];[place] | | | | | | [address] | | | | + + + [...] | | | at [facility];[address] [place] [address] | | | | | | [facility];[place] [address] | | | | + + + [...] | | | Fingerstick | performed at [facility];[address] | | LAB | | | | [place] | | | | | | [address] | | | | + + + [...] | | | Fingerstick | performed at [facility];[address] | | LAB | | | | [address];[place] | | | | | | [address] | | | | + + + [...] | | | | | [place] [address] | | | | + + + + + + | Non- | 3.90Comment: Testing | 3.70 - 5.10 | EXTERNAL | | | Red Blood | performed at [facility], [address] | M/uL | LAB | | | Cells | [place], | | | | | Counted | [place] [address] | | | | + + + + + + | Hemoglobin | 10.4 (L)Comment: Testing | 11.3 - 15.5 | EXTERNAL | | | | performed at [facility], [address] | g/dL | LAB | | | | [address] [place], | | | | | | [place] [address] | | | | + + + + + + | Hematocrit, | 31.8 (L)Comment: Testing | 34.0 - 46.0 % | EXTERNAL | | | POC | performed at [facility], [address] | | LAB | | | | [address] [place], | | | | | | [place] [address] | | | | + + + + + + | MCV | 81.6Comment: Testing | 80.0 - 100.0 fl | EXTERNAL | | | | performed at [facility], [address] | | LAB | | | | [place], | | | | | | [place] [address] | | | | + + + + + + | MCH | 26.7 (L)Comment: Testing | 27.0 - 34.0 pg | EXTERNAL | | | | performed at [facility], [address] | | LAB | | | | [address], | | | | | | [place] [address] | | | | + + + + + + | MCHC | 32.7Comment: Testing | 32.0 - 35.5 | EXTERNAL | | | | performed at [facility], [address] | g/dL | LAB | | | | [address], | | | | | | [place] [address] | | | | + + + + + + | RDW-CV | 39.8Comment: Testing | 37 - 53 fl | EXTERNAL | | | | performed at [facility], [address] | | LAB | | | | [address], | | | | | | [place] [address] | | | | + + + + + + | Platelet | 469 (H)Comment: Testing | 150 - 400 K/uL | EXTERNAL | | | Count | performed at [facility], [address] | | LAB | | | Plasma | [place], | | | | | | [place] [address] | | | | + + + + + + | MPV | 7.1Comment: Testing | fl | EXTERNAL | | | | performed at [facility], [address] | | LAB | | | | [address], | | | | | | [place] [address] | | | | + + + + + + | Differentia | AUTOMATEDComment: | | EXTERNAL | | | l Type | Testing performed at | | LAB | | | | [facility], [address] | | | | | | [place] | | | | | | [address] | | | | + + + [...] | | | | performed at [facility], [address] | | LAB | | | | [address], | | | | | | [place] [address] | | | | + + + [...] | | | | | [place] [address] | | | | + + + + + + | K | 3.7Comment: Testing | 3.5 - 4.9 | EXTERNAL | | | | performed at [facility], [address] | mmol/L | LAB | | | | [address], | | | | | | [place] [address] | | | | + + + + + + | Cl | 102Comment: Testing | 99 - 109 mmol/L | EXTERNAL | | | | performed at [facility], [address] | | LAB | | | | [address], | | | | | | [place] [address] | | | | + + + + + + | CO2 | 29Comment: Testing | 23 - 32 mmol/L | EXTERNAL | | | | performed at [facility], [address] | | LAB | | | | [address], | | | | | | [place] [address] | | | | + + + + + + | Anion Gap | 9Comment: Testing | 5 - 20 mmol/L | EXTERNAL | | | | performed at [facility], [address] | | LAB | | | | [address], | | | | | | [place] [address] | | | | + + + + + + | Glucose, | 147 (H)Comment: Testing | 65 - 99 mg/dL | EXTERNAL | | | Fasting | performed at [facility], [address] | | LAB | | | | [address], | | | | | | [place] [address] | | | | + + + + + + | BUN | 18Comment: Testing | 8 - 25 mg/dL | EXTERNAL | | | | performed at [facility], [address] | | LAB | | | | [address], | | | | | | [place] [address] | | | | + + + + + + | Creatinine | 0.45 (L)Comment: Testing | 0.50 - 1.00 | EXTERNAL | | | | performed at [facility], [address] | mg/dL | LAB | | | | [address], | | | | | | [place] [address] | | | | + + + + + + | BUN/Creatin | 40Comment: Testing | | EXTERNAL | | | ine Ratio | performed at [facility], [address] | | LAB | | | | [place], | | | | | | [place] [address] | | | | + + + + + + | Calcium | 8.9Comment: Testing | 8.5 - 10.2 | EXTERNAL | | | | performed at [facility], [address] | mg/dL | LAB | | | | [address], | | | | | | [place] [address] | | | | + + + + + + | Protein, | 7.1Comment: Testing | 6.3 - 8.2 g/dL | EXTERNAL | | | Total | performed at [facility], [address] | | LAB | | | | [address], | | | | | | [place] [address] | | | | + + + + + + | Albumin | 2.8 (L)Comment: Testing | 3.6 - 5.0 g/dL | EXTERNAL | | | | performed at [facility], [address] | | LAB | | | | [address], | | | | | | [place] [address] | | | | + + + + + + | Globulin | 4.3Comment: Testing | 1.3 - 4.9 g/dL | EXTERNAL | | | | performed at [facility], [address] | | LAB | | | | [address], | | | | | | [place] [address] | | | | + + + + + + | A/G Ratio | 0.7 (L)Comment: Testing | 1.0 - 2.4 | EXTERNAL | | | | performed at [facility], [address] | | LAB | | | [address], | | | | | | [place] [address] | | | | + + + + + + | Bilirubin | 0.5Comment: Testing | 0.1 - 1.5 mg/dL | EXTERNAL | | | Total | performed at [facility], [address] | | LAB | | | | [address], | | | | | | [place] [address] | | | | + + + + + + | ALP, | 94Comment: Testing | 35 - 115 U/L | EXTERNAL | | | External | performed at [facility], [address] | | LAB | | | | [address], | | | | | | [place] [address] | | | | + + + + + + | AST | 62 (H)Comment: Testing | 10 - 45 U/L | EXTERNAL | | | | performed at [facility], [address] | | LAB | | | | [address], | | | | | | [place] [address] | | | | + + + + + + | ALT | 70 (H)Comment: Testing | 10 - 65 U/L | EXTERNAL | | | | performed at [facility], [address] | | LAB | | | | [address], | | | | | | [place] [address] | | | | + + + [...] | | | | | at [facility], [address] | | | | | | [address], | | | | | | [place] [address] | | | | + + + [...] | | | Fingerstick | performed at [facility];[address] | | LAB | | | | [address];[place] | | | | | | [address] | | | | + + + [...] | | performed at [facility];[address] | mmol/L | LAB | | | | [address];[place], [place] | | | | | | [address] | | | | + + + [...] | | performed at [facility];[address] | | LAB | | | | [address];[place], [place] | | | | | | [address] | | | | + + + [...] | | performed at [facility];[address] | | LAB | | | | [address];[place], [place] | | | | | | [address] | | | | + + + [...] | | | Fingerstick | performed at [facility];[address] | | LAB | | | | [address];[place] | | | | | | [address] | | | | + + + [...] | | | Fingerstick | performed at [facility];[address] | | LAB | | | | [address];[place], [place] | | | | | | [address] | | | | + + + [...] Procedure Note | + + | Fox, Ermias Conversion - 11/20/2018 1:53 PM PDT GILMA MEDEROS CHEST 1 VIEW05/11/2013 | | 12:42 PM [...] | | | Fingerstick | performed at [facility];[address] | | LAB | | | | [address];[place] | | | | | | [address] | | | | + + + [...] | + + + | GILMA Leyva expressor software XR CHEST 1 VIEW 05/11/2013 5:53 AM [...] | | | (Calc) | performed at [facility];888 | mmol/L | LAB | | | | [address];[place], [place] | | | | | | [id number] | | | | + + + + + + | pH, Bld | 7.463 (H)Comment: | 7.300 - 7.450 | EXTERNAL | | | | Testing performed at | | LAB | | | | [facility] [address];[place] [address] | | | | + + + [...] | | | | | performed at [facility] | | | | | | [facility];[place], [place] | | | | | | [phone] [...] | | performed at [facility];[address] | | LAB | | | | [address];[place], [place] | | | | | | [address] | | | | + + + + + + | Non- | 3.85Comment: Testing | 3.70 - 5.10 | EXTERNAL | | | Red Blood | performed at [facility];[address] | M/uL | LAB | | | Cells | [address];[place] | | | | | Counted | [id number] | | | | + + + + + + | Hemoglobin | 10.6 (L)Comment: Testing | 11.3 - 15.5 | EXTERNAL | | | | performed at [facility];888 | g/dL | LAB | | | | [address];[place] | | | | | | [address] | | | | + + + + + + | Hematocrit, | 31.0 (L)Comment: Testing | 34.0 - 46.0 % | EXTERNAL | | | POC | performed at [facility];[address] | | LAB | | | | [address];[place] | | | | | | [address] | | | | + + + + + + | MCV | 80.5Comment: Testing | 80.0 - 100.0 fl | EXTERNAL | | | | performed at [facility];[address] | | LAB | | | | [address];[place] | | | | | | [address] | | | | + + + + + + | MCH | 27.5Comment: Testing | 27.0 - 34.0 pg | EXTERNAL | | | | performed at [facility];[address] | | LAB | | | | [address];[place] | | | | | | [address] | | | | + + + + + + | MCHC | 34.1Comment: Testing | 32.0 - 35.5 | EXTERNAL | | | | performed at [facility];888 | g/dL | LAB | | | | [address];[place] | | | | | | [address] | | | | + + + + + + | RDW-CV | 41.1Comment: Testing | 37 - 53 fl | EXTERNAL | | | | performed at [facility];[address] | | LAB | | | | [address];[place] | | | | | | [address] | | | | + + + + + + | Platelet | 484 (H)Comment: Testing | 150 - 400 K/uL | EXTERNAL | | | Count | performed at [facility];[address] | | LAB | | | Plasma | [address];[place] | | | | | | [address] | | | | + + + + + + | MPV | 6.8Comment: Testing | fl | EXTERNAL | | | | performed at [facility];[address] | | LAB | | | | [address];[place] | | | | | | [address] | | | | + + + + + + | Differentia | AUTOMATEDComment: | | EXTERNAL | | | l Type | Testing performed at | | LAB | | | | [facility];[address];[place] [address] | | | | + + + [...] | | performed at [facility] | | LAB | | | | [address] [facility];[place], [place] | | | | | | [address] | | | | + + + [...] | | performed at [facility];[address] | | LAB | | | | [address];[place] | | | | | | [address] | | | | + + + [...] | | performed at [facility];888 | mmol/L | LAB | | | | [address];[place] | | | | | | [address] | | | | + + + + + + | K | 3.9Comment: Testing | 3.5 - 4.9 | EXTERNAL | | | | performed at [facility];888 | mmol/L | LAB | | | | [address];[place] | | | | | | [address] | | | | + + + + + + | Cl | 104Comment: Testing | 99 - 109 mmol/L | EXTERNAL | | | | performed at [facility];[address] | | LAB | | | | [address];[place] | | | | | | [address] | | | | + + + + + + | CO2 | 27Comment: Testing | 23 - 32 mmol/L | EXTERNAL | | | | performed at [facility];[address] | | LAB | | | | [address];[place] | | | | | | [address] | | | | + + + + + + | Anion Gap | 10Comment: Testing | 5 - 20 mmol/L | EXTERNAL | | | | performed at [facility];[address] | | LAB | | | | [address];[place] | | | | | | [address] | | | | + + + + + + | Glucose, | 151 (H)Comment: Testing | 65 - 99 mg/dL | EXTERNAL | | | Fasting | performed at [facility];[address] | | LAB | | | | [address];[place] | | | | | | [address] | | | | + + + + + + | BUN | 17Comment: Testing | 8 - 25 mg/dL | EXTERNAL | | | | performed at [facility];[address] | | LAB | | | | [address];[place] | | | | | | [address] | | | | + + + + + + | Creatinine | 0.57Comment: Testing | 0.50 - 1.00 | EXTERNAL | | | | performed at [facility];888 | mg/dL | LAB | | | | [address];[place] | | | | | | [address] | | | | + + + + + + | BUN/Creatin | 29Comment: Testing | | EXTERNAL | | | ine Ratio | performed at [facility];[address] | | LAB | | | | [address];[place] | | | | | | [address] | | | | + + + + + + | Calcium | 8.3 (L)Comment: Testing | 8.5 - 10.2 | EXTERNAL | | | | performed at [facility];888 | mg/dL | LAB | | | | [address];[place] | | | | | | [address] | | | | + + + + + + | Protein, | 7.1Comment: Testing | 6.3 - 8.2 g/dL | EXTERNAL | | | Total | performed at [facility];[address] | | LAB | | | | [address];[place] | | | | | | [address] | | | | + + + + + + | Albumin | 1.9 (L)Comment: Testing | 3.6 - 5.0 g/dL | EXTERNAL | | | | performed at [facility];[address] | | LAB | | | | [address];[place] | | | | | | [address] | | | | + + + + + + | Globulin | 5.1 (H)Comment: Testing | 1.3 - 4.9 g/dL | EXTERNAL | | | | performed at [facility];[address] | | LAB | | | | [address];[place] | | | | | | [address] | | | | + + + + + + | A/G Ratio | 0.4 (L)Comment: Testing | 1.0 - 2.4 | EXTERNAL | | | | performed at [facility];[address] | | LAB | | | | [address];[place] | | | | | | [address] | | | | + + + + + + | Bilirubin | 0.5Comment: Testing | 0.1 - 1.5 mg/dL | EXTERNAL | | | Total | performed at [facility];[address] | | LAB | | | | [address];[place] | | | | | | [address] | | | | + + + + + + | ALP, | 120 (H)Comment: Testing | 35 - 115 U/L | EXTERNAL | | | External | performed at [facility];[address] | | LAB | | | | [address];[place] | | | | | | [address] | | | | + + + + + + | AST | 79 (H)Comment: Testing | 10 - 45 U/L | EXTERNAL | | | | performed at [facility];[address] | | LAB | | | | [address];[place] | | | | | | [address] | | | | + + + + + + | ALT | 78 (H)Comment: Testing | 10 - 65 U/L | EXTERNAL | | | | performed at [facility];[address] | | LAB | | | | [address];[place], [place] | | | | | | [address] | | | | + + + [...] | | | at [facility];[address];[place] [address] | | | | + + + [...] | | | Fingerstick | performed at [facility];[address] | | LAB | | | | [address];[place] | | | | | | [address] | | | | + + + [...] | | | Patient | performed at [facility];[address] | | LAB | | | | [address];[place], [place] | | | | | | [address] | | | | + + + [...] | | | | | performed at [facility];[address] | | | | | | [facility];[place], [place] | | | | | | [address] [...] | | | Fingerstick | performed at [facility];[address] | | LAB | | | | [address];[place] | | | | | | [address] | | | | + + + [...] | | performed at [facility];888 | mmol/L | LAB | | | | [address];[place] | | | | | | [address] | | | | + + + [...] | | performed at [facility];[address] | | LAB | | | | [address];[place], [place] | | | | | | [address] | | | | + + + [...] | | performed at [facility];[address] | | LAB | | | | [address];[place] | | | | | | [address] | | | | + + + [...] | | | Fingerstick | performed at [facility];[address] | | LAB | | | | [address];[place] | | | | | | [address] | | | | + + + [...] Excursion: 2.11 cm E-F | | | Glascock: 0.14 m/s IVC diameter: 2.19 cm IVC [...] 0.56 m/s TV | | | Dec Glascock: 4.82 m/s2 TV Dec Time: 116.68 ms TV E Cindy: 0.56 | | | m/s TV E/A Ratio: 1 Fast Food Supervisor: MARISA Authenticated by: Daina | | | [...] (A-L): 14.81 ml/m2LAAs A2C: 11.70 | | as0RCVWU A-L A2C: 27.34 mlLALs A2C: 4.25 cmLAAs A4C: 15.34 qx7NEDGS A-L A4C: | | 38.61 mlLALs A4C: 5.17 cmAo Diam: 2.95 cmAV Cusp: 1.94 cmLA Diam: 3.01 cmLA/Ao: | | 1.02%FS: 33.07 %EDV(Teich): 93.02 mlEF(Teich): 61.77 %ESV(Teich): 35.55 | | mlIVSd: 1.18 cmIVSs: 1.31 cmLVIDd: 4.51 cmLVIDs: 3.01 cmLVPWd: 0.59 cmLVPWs: | | 1.28 cmSV(Teich): 57.46 mlD-E Excursion: 2.11 cmE-F Glascock: 0.14 m/sIVC diameter: | | 2.19 cmIVC collapse: 1.56 cmIVC % collapse: 26.37 %HR: 87.57 BPMAV maxPG: | | 10.95 mmHgAV meanP.08 mmHgAV Vmax: 1.65 m/Dalia Vmean: 1.16 m/Dalia VTI: 31.75 | | cmAVA Vmax: 2.87 cm2AVA (VTI): 3.09 kj9SEBM Dopp: 3.61 l/ivcx5FQUQ Dopp: 8.73 | | l/minHR: 88.92 BPMLVOT [...] 2.30 m/sTV A Cindy: 0.56 m/sTV Dec Glascock: 4.82 m/s2TV Dec Time: | | 116.68 msTV E Cindy: 0.56 m/sTV E/A Ratio: 1 Fast Food Supervisor: ALFREDOuthenticated by: Daina | | [facility] Date/Time: 05-10-2013 18:08:33 IMPRESSION: 1. Sinus rhythm.2. [...] | |D-E Excursion: 2.11 cm | |E-F Glascock: 0.14 m/s | |IVC diameter: 2.19 cm [...] A Cindy: 0.56 m/s | |TV Dec Glascock: 4.82 m/s2 | |TV Dec Time: 116.68 ms | |TV E Cindy: 0.56 m/s | |TV E/A Ratio: 1 | | | |Fast Food Supervisor: KVW | |Authenticated by: Daina Alan MD [...] | | | Fingerstick | performed at [facility];[address] | | LAB | | | | [address];[place], [place] | | | | | | [address] | | | | + + + [...] GILMA Leyva SALMON XR CHEST 1 VIEW 05/10/2013 5:22 [...] | | | | | [place] [address] | | | | + + + + + + | Non- | 3.73Comment: Testing | 3.70 - 5.10 | EXTERNAL | | | Red Blood | performed at [facility], [address] | M/uL | LAB | | | Cells | [address], | | | | | Counted | [place] [address] | | | | + + + + + + | Hemoglobin | 10.6 (L)Comment: Testing | 11.3 - 15.5 | EXTERNAL | | | | performed at [facility], [address] | g/dL | LAB | | | | [address], | | | | | | [place] [address] | | | | + + + + + + | Hematocrit, | 30.5 (L)Comment: Testing | 34.0 - 46.0 % | EXTERNAL | | | POC | performed at [facility], [address] | | LAB | | | | [address], | | | | | | [place] [address] | | | | + + + + + + | MCV | 81.8Comment: Testing | 80.0 - 100.0 fl | EXTERNAL | | | | performed at [facility], [address] | | LAB | | | | [address], | | | | | | [place] [address] | | | | + + + + + + | MCH | 28.4Comment: Testing | 27.0 - 34.0 pg | EXTERNAL | | | | performed at [facility], [address] | | LAB | | | | [address], | | | | | | [place] [address] | | | | + + + + + + | MCHC | 34.7Comment: Testing | 32.0 - 35.5 | EXTERNAL | | | | performed at [facility], [address] | g/dL | LAB | | | | [address], | | | | | | [place] [address] | | | | + + + + + + | RDW-CV | 41.1Comment: Testing | 37 - 53 fl | EXTERNAL | | | | performed at [facility], [address] | | LAB | | | | [address], | | | | | | [place] [address] | | | | + + + + + + | Platelet | 360Comment: Testing | 150 - 400 K/uL | EXTERNAL | | | Count | performed at [facility], [address] | | LAB | | | Plasma | [address], | | | | | | [place] [address] | | | | + + + + + + | MPV | 7.5Comment: Testing | fl | EXTERNAL | | | | performed at [facility], [address] | | LAB | | | | [address], | | | | | | [place] [address] | | | | + + + + + + | Differentia | AUTOMATEDComment: | | EXTERNAL | | | l Type | Testing performed at | | LAB | | | | [facility], [address] | | | | | | [place] | | | | | | [address] | | | | + + + [...] | | | | | [place] [address] | | | | + + + + + + | K | 3.6Comment: Testing | 3.5 - 4.9 | EXTERNAL | | | | performed at [facility], [address] | mmol/L | LAB | | | | [address], | | | | | | [place] [address] | | | | + + + + + + | Cl | 100Comment: Testing | 99 - 109 mmol/L | EXTERNAL | | | | performed at [facility], [address] | | LAB | | | | [address], | | | | | | [place] [address] | | | | + + + + + + | CO2 | 25Comment: Testing | 23 - 32 mmol/L | EXTERNAL | | | | performed at [facility], [address] | | LAB | | | | [address], | | | | | | [place] [address] | | | | + + + + + + | Anion Gap | 9Comment: Testing | 5 - 20 mmol/L | EXTERNAL | | | | performed at [facility], [address] | | LAB | | | | [address], | | | | | | [place] [address] | | | | + + + + + + | Glucose, | 144 (H)Comment: Testing | 65 - 99 mg/dL | EXTERNAL | | | Fasting | performed at [facility], [address] | | LAB | | | | [address], | | | | | | [place] [address] | | | | + + + + + + | BUN | 15Comment: Testing | 8 - 25 mg/dL | EXTERNAL | | | | performed at [facility], [address] | | LAB | | | | [address], | | | | | | [place] [address] | | | | + + + + + + | Creatinine | 0.39 (L)Comment: Testing | 0.50 - 1.00 | EXTERNAL | | | | performed at [facility], [address] | mg/dL | LAB | | | | [address], | | | | | | [place] [address] | | | | + + + + + + | BUN/Creatin | 38Comment: Testing | | EXTERNAL | | | ine Ratio | performed at [facility], [address] | | LAB | | | | [address], | | | | | | [place] [address] | | | | + + + + + + | Calcium | 8.0 (L)Comment: Testing | 8.5 - 10.2 | EXTERNAL | | | | performed at [facility], [address] | mg/dL | LAB | | | | [facility] [facility], | | | | | | [place] [address] | | | | + + + [...] | | | | | at [facility], [address] | | | | | | [address], | | | | | | [place] [address] | | | | + + + [...] | | | Fingerstick | performed at [facility];[address] | | LAB | | | | [address];[place], [place] | | | | | | [address] | | | | + + + [...] | | performed at [facility];888 | mmol/L | LAB | | | | [address];[place], [place] | | | | | | [address] | | | | + + + [...] | | performed at [facility];[address] | | LAB | | | | [address];[place], [place] | | | | | | [address] | | | | + + + [...] | | performed at [facility];[address] | | LAB | | | | [address];[place] | | | | | | [address] | | | | + + + [...] | | | Fingerstick | performed at [facility];[address] | | LAB | | | | [address];[place], [place] | | | | | | [address] | | | | + + + [...] | | | Fingerstick | performed at [facility];[address] | | LAB | | | | [address];[place] | | | | | | [address] | | | | + + + [...] | | performed at [facility];[address] | mmol/L | LAB | | | | [facility] [facility];[place], [place] | | | | | | [address] | | | | + + + [...] | | performed at [facility];[address] | | LAB | | | | [address];[place] | | | | | | [address] | | | | + + + [...] | | performed at [facility];[address] | | LAB | | | | [address];[place], [place] | | | | | | [address] | | | | + + + [...] | | | Fingerstick | performed at [facility];[address] | | LAB | | | | [address];[place], [place] | | | | | | [address] | | | | + + + [...] GILMA Leyva SALMON XR CHEST 1 VIEW 05/09/2013 5:21 [...] | | performed at [facility];[address] | | LAB | | | | [address];[place] | | | | | | [address] | | | | + + + + + + | Non- | 3.95Comment: Testing | 3.70 - 5.10 | EXTERNAL | | | Red Blood | performed at [facility];888 | M/uL | LAB | | | Cells | [address];[place] | | | | | Counted | [address] | | | | + + + + + + | Hemoglobin | 10.9 (L)Comment: Testing | 11.3 - 15.5 | EXTERNAL | | | | performed at [facility];888 | g/dL | LAB | | | | [address];[place] | | | | | | [address] | | | | + + + + + + | Hematocrit, | 32.0 (L)Comment: Testing | 34.0 - 46.0 % | EXTERNAL | | | POC | performed at [facility];[address] | | LAB | | | | [address];[place] | | | | | | [address] | | | | + + + + + + | MCV | 81.0Comment: Testing | 80.0 - 100.0 fl | EXTERNAL | | | | performed at [facility];[address] | | LAB | | | | [address];[place] | | | | | | [address] | | | | + + + + + + | MCH | 27.7Comment: Testing | 27.0 - 34.0 pg | EXTERNAL | | | | performed at [facility];[address] | | LAB | | | | [address];[place] | | | | | | [address] | | | | + + + + + + | MCHC | 34.2Comment: Testing | 32.0 - 35.5 | EXTERNAL | | | | performed at [facility];888 | g/dL | LAB | | | | [address];[place] | | | | | | [address] | | | | + + + + + + | RDW-CV | 42.9Comment: Testing | 37 - 53 fl | EXTERNAL | | | | performed at [facility];[address] | | LAB | | | | [address];[place] | | | | | | [address] | | | | + + + + + + | Platelet | 363Comment: Testing | 150 - 400 K/uL | EXTERNAL | | | Count | performed at [facility];[address] | | LAB | | | Plasma | [address];[place] | | | | | | [address] | | | | + + + + + + | MPV | 7.1Comment: Testing | fl | EXTERNAL | | | | performed at [facility];[address] | | LAB | | | | [address];[place] | | | | | | [address] | | | | + + + + + + | Differentia | AUTOMATEDComment: | | EXTERNAL | | | l Type | Testing performed at | | LAB | | | | [facility];[address] [facility] | | | | | | [address];[place] [address] | | | | + + + [...] | | performed at [facility];[address] | | LAB | | | | [address] [facility];[place], [place] | | | | | | [address] | | | | + + + [...] | | performed at [facility];[address] | | LAB | | | | [address];[place], [place] | | | | | | [address] | | | | + + + [...] | | performed at [facility];888 | mmol/L | LAB | | | | [address];[place] | | | | | | [address] | | | | + + + + + + | K | 3.9Comment: Testing | 3.5 - 4.9 | EXTERNAL | | | | performed at [facility];888 | mmol/L | LAB | | | | [address];[place] | | | | | | [address] | | | | + + + + + + | Cl | 106Comment: Testing | 99 - 109 mmol/L | EXTERNAL | | | | performed at [facility];[address] | | LAB | | | | [address];[place] | | | | | | [address] | | | | + + + + + + | CO2 | 26Comment: Testing | 23 - 32 mmol/L | EXTERNAL | | | | performed at [facility];[address] | | LAB | | | | [address];[place] | | | | | | [address] | | | | + + + + + + | Anion Gap | 10Comment: Testing | 5 - 20 mmol/L | EXTERNAL | | | | performed at [facility];[address] | | LAB | | | | [address];[place] | | | | | | [address] | | | | + + + + + + | Glucose, | 160 (H)Comment: Testing | 65 - 99 mg/dL | EXTERNAL | | | Fasting | performed at [facility];[address] | | LAB | | | | [address];[place] | | | | | | [address] | | | | + + + + + + | BUN | 16Comment: Testing | 8 - 25 mg/dL | EXTERNAL | | | | performed at [facility];[address] | | LAB | | | | [address];[place] | | | | | | [address] | | | | + + + + + + | Creatinine | 0.61Comment: Testing | 0.50 - 1.00 | EXTERNAL | | | | performed at [facility];[address] | mg/dL | LAB | | | | [address];[place] | | | | | | [address] | | | | + + + + + + | BUN/Creatin | 26Comment: Testing | | EXTERNAL | | | ine Ratio | performed at [facility];[address] | | LAB | | | | [address];[place] | | | | | | [address] | | | | + + + + + + | Calcium | 8.1 (L)Comment: Testing | 8.5 - 10.2 | EXTERNAL | | | | performed at [facility];888 | mg/dL | LAB | | | | [address];[place] | | | | | | [address] | | | | + + + [...] | | | at [facility];[address] [place] [address] | | | | | | [facility];[place] [address] | | | | + + + [...] | | | Fingerstick | performed at [facility];[address] | | LAB | | | | [address];[place] | | | | | | [address] | | | | + + + [...] | | | Fingerstick | performed at [facility];[address] | | LAB | | | | [address];[place] | | | | | | [address] | | | | + + + [...] | | performed at [facility];[address] | mmol/L | LAB | | | | [address];[place], [place] | | | | | | [address] | | | | + + + [...] | | | Fingerstick | performed at [facility];[address] | | LAB | | | | [address];[place] | | | | | | [address] | | | | + + + [...] | | performed at [facility];[address] | mmol/L | LAB | | | | [address];[place], [place] | | | | | | [address] | | | | + + + [...] | | performed at [facility];[address] | | LAB | | | | [address];[place] | | | | | | [address] | | | | + + + [...] | | performed at [facility];[address] | | LAB | | | | [address];[place], [place] | | | | | | [address] | | | | + + + [...] | | performed at [facility];[address] | | LAB | | | | [address];[place] | | | | | | [address] | | | | + + + + + + | Non- | 4.07Comment: Testing | 3.70 - 5.10 | EXTERNAL | | | Red Blood | performed at [facility];[address] | M/uL | LAB | | | Cells | [address];[place] | | | | | Counted | [address] | | | | + + + + + + | Hemoglobin | 11.1 (L)Comment: Testing | 11.3 - 15.5 | EXTERNAL | | | | performed at [facility];[address] | g/dL | LAB | | | | [address];[place] | | | | | | [address] | | | | + + + + + + | Hematocrit, | 32.9 (L)Comment: Testing | 34.0 - 46.0 % | EXTERNAL | | | POC | performed at [facility];[address] | | LAB | | | | [address];[place] | | | | | | [address] | | | | + + + + + + | MCV | 80.8Comment: Testing | 80.0 - 100.0 fl | EXTERNAL | | | | performed at [facility];[address] | | LAB | | | | [address];[place] | | | | | | [address] | | | | + + + + + + | MCH | 27.3Comment: Testing | 27.0 - 34.0 pg | EXTERNAL | | | | performed at [facility];[address] | | LAB | | | | [address];[place] | | | | | | [address] | | | | + + + + + + | MCHC | 33.8Comment: Testing | 32.0 - 35.5 | EXTERNAL | | | | performed at [facility];888 | g/dL | LAB | | | | [address];[place] | | | | | | [address] | | | | + + + + + + | RDW-CV | 41.1Comment: Testing | 37 - 53 fl | EXTERNAL | | | | performed at [facility];[address] | | LAB | | | | [address];[place] | | | | | | [address] | | | | + + + + + + | Platelet | 307Comment: Testing | 150 - 400 K/uL | EXTERNAL | | | Count | performed at [facility];[address] | | LAB | | | Plasma | [address];[place] | | | | | | [address] | | | | + + + + + + | MPV | 7.5Comment: Testing | fl | EXTERNAL | | | | performed at [facility];[address] | | LAB | | | | [address];[place] | | | | | | [address] | | | | + + + + + + | Differentia | AUTOMATEDComment: | | EXTERNAL | | | l Type | Testing performed at | | LAB | | | | [facility];[address];[place] [address] | | | | + + + [...] | | performed at [facility];[address] | | LAB | | | | [address];[place] | | | | | | [address] | | | | + + + [...] LAB | | | | performed at [facility];[address] | | | | | | [facility] [facility];[place], [place] | | | | | | [address] | | | | + + + [...] | | performed at [facility];888 | mmol/L | LAB | | | | [address];[place] | | | | | | [address] | | | | + + + + + + | K | 3.7Comment: SLT | 3.5 - 4.9 | EXTERNAL | | | | HEMOLYSISTesting | mmol/L | LAB | | | | performed at [facility];[address] | | | | | | [address];[place] | | | | | | [address] | | | | + + + + + + | Cl | 106Comment: Testing | 99 - 109 mmol/L | EXTERNAL | | | | performed at [facility];[address] | | LAB | | | | [address];[place] | | | | | | [address] | | | | + + + + + + | CO2 | 26Comment: Testing | 23 - 32 mmol/L | EXTERNAL | | | | performed at [facility];[address] | | LAB | | | | [address];[place] | | | | | | [address] | | | | + + + + + + | Anion Gap | 10Comment: Testing | 5 - 20 mmol/L | EXTERNAL | | | | performed at [facility];[address] | | LAB | | | | [address];[place] | | | | | | [address] | | | | + + + + + + | Glucose, | 179 (H)Comment: Testing | 65 - 99 mg/dL | EXTERNAL | | | Fasting | performed at [facility];[address] | | LAB | | | | [address];[place] | | | | | | [address] | | | | + + + + + + | BUN | 16Comment: Testing | 8 - 25 mg/dL | EXTERNAL | | | | performed at [facility];[address] | | LAB | | | | [address];[place] | | | | | | [address] | | | | + + + + + + | Creatinine | 0.62Comment: Testing | 0.50 - 1.00 | EXTERNAL | | | | performed at [facility];[address] | mg/dL | LAB | | | | [address];[place] | | | | | | [address] | | | | + + + + + + | BUN/Creatin | 26Comment: Testing | | EXTERNAL | | | ine Ratio | performed at [facility];[address] | | LAB | | | | [address];[place] | | | | | | [address] | | | | + + + + + + | Calcium | 7.9 (L)Comment: Testing | 8.5 - 10.2 | EXTERNAL | | | | performed at [facility];[address] | mg/dL | LAB | | | | [address];[place], [place] | | | | | | [address] | | | | + + + [...] | | | at [facility];[address];[place] [address] | | | | + + + [...] Conversion - 11/20/2018 1:53 PM PDT GILMA [id number] yearsXR | | CHEST 1 VIEW05/08/2013 5:49 [...] PICC line is not well seen on toda y's study. The cardiac silhouette and mediastinal [...] | | | Fingerstick | performed at [facility];[address] | | LAB | | | | [address];[place] | | | | | | [address] | | | | + + + [...] | | | Fingerstick | performed at [facility];[address] | | LAB | | | | [address];[place], [place] | | | | | | [address] | | | | + + + [...] | | | Fingerstick | performed at [facility] | | LAB | | | | [address];[place], [place] | | | | | | [address] | | | | + + + [...] | | performed at [facility];[address] | mmol/L | LAB | | | | [address];[place], [place] | | | | | | [address] | | | | + + + [...] | EXTERNAL LAB | | performed at [facility];[address] [facility];[place] [address] 027 NAP1 BI | | | 027 NAP1 BI PRESUMPTIVE NEGATIVE | | | Detection of 027 NAP1 BI strains of C. difficile is presumptive and | | | for epidemiological purposes and not intended to guide or monitor | | | treatment for C. difficile infections. Testing performed at [facility];[address] | | | [facility];[place] [address] | | + + + + +---------+ [...] | | | Fingerstick | performed at [facility];888 | | LAB [...] Braxton Conversion - 11/20/2018 1:53 PM PDT HISTORY:Acute [...] | | + + External Lab: AMELIA (05/07/2013 3:55 AM PST) + + + + + + | Component | Value | Ref Range | Performed | Pathologist | | | | | At | Signature | + + + + + + | WBC | 7.5Comment: Testing | 3.8 - 11.0 K/uL | EXTERNAL | | | | performed at [facility];[address] | | LAB | | | | [address];[place] | | | | | | [address] | | | | + + + + + + | Non- | 4.28Comment: Testing | 3.70 - 5.10 | EXTERNAL | | | Red Blood | performed at [facility];888 | M/uL | LAB | | | Cells | [address];[place] | | | | | Counted | [address] | | | | + + + + + + | Hemoglobin | 11.8Comment: Testing | 11.3 - 15.5 | EXTERNAL | | | | performed at [facility];888 | g/dL | LAB | | | | [address];[place] | | | | | | [address] | | | | + + + + + + | Hematocrit, | 35.0Comment: Testing | 34.0 - 46.0 % | EXTERNAL | | | POC | performed at [facility];[address] | | LAB | | | | [address];[place] | | | | | | [address] | | | | + + + + + + | MCV | 81.7Comment: Testing | 80.0 - 100.0 fl | EXTERNAL | | | | performed at [facility];[address] | | LAB | | | | [address];[place] | | | | | | [address] | | | | + + + + + + | MCH | 27.6Comment: Testing | 27.0 - 34.0 pg | EXTERNAL | | | | performed at [facility];[address] | | LAB | | | | [address];[place] | | | | | | [address] | | | | + + + + + + | MCHC | 33.8Comment: Testing | 32.0 - 35.5 | EXTERNAL | | | | performed at [facility];888 | g/dL | LAB | | | | [address];[place] | | | | | | [address] | | | | + + + + + + | RDW-CV | 42.4Comment: Testing | 37 - 53 fl | EXTERNAL | | | | performed at [facility];[address] | | LAB | | | | [address];[place] | | | | | | [address] | | | | + + + + + + | Platelet | 260Comment: Testing | 150 - 400 K/uL | EXTERNAL | | | Count | performed at [facility];[address] | | LAB | | | Plasma | [address];[place] | | | | | | [address] | | | | + + + + + + | MPV | 8.0Comment: Testing | fl | EXTERNAL | | | | performed at [facility];[address] | | LAB | | | | [address];[place] | | | | | | [address] | | | | + + + + + + | Differentia | AUTOMATEDComment: | | EXTERNAL | | | l Type | Testing performed at | | LAB | | | | [facility];[address] [facility] | | | | | | Blvd;[place] [address] | | | | + + + [...] | | performed at [facility];[address] | | LAB | | | | [address];[place] | | | | | | [address] | | | | + + + [...] | | performed at [facility];[address] | | LAB | | | | [address];[place], [place] | | | | | | [address] | | | | + + + [...] | | performed at [facility];888 | mmol/L | LAB | | | | [address];[place] | | | | | | [address] | | | | + + + + + + | K | 3.7Comment: Testing | 3.5 - 4.9 | EXTERNAL | | | | performed at [facility];888 | mmol/L | LAB | | | | [address];[place] | | | | | | [address] | | | | + + + + + + | Cl | 108Comment: Testing | 99 - 109 mmol/L | EXTERNAL | | | | performed at [facility];[address] | | LAB | | | | [address];[place] | | | | | | [address] | | | | + + + + + + | CO2 | 24Comment: Testing | 23 - 32 mmol/L | EXTERNAL | | | | performed at [facility];[address] | | LAB | | | | [address];[place] | | | | | | [address] | | | | + + + + + + | Anion Gap | 13Comment: Testing | 5 - 20 mmol/L | EXTERNAL | | | | performed at [facility];[address] | | LAB | | | | [address];[place] | | | | | | [address] | | | | + + + + + + | Glucose, | 125 (H)Comment: Testing | 65 - 99 mg/dL | EXTERNAL | | | Fasting | performed at [facility];[address] | | LAB | | | | [address];[place] | | | | | | [address] | | | | + + + + + + | BUN | 12Comment: Testing | 8 - 25 mg/dL | EXTERNAL | | | | performed at [facility];[address] | | LAB | | | | [address];[place] | | | | | | [address] | | | | + + + + + + | Creatinine | 0.76Comment: Testing | 0.50 - 1.00 | EXTERNAL | | | | performed at [facility];888 | mg/dL | LAB | | | | [address];[place] | | | | | | [address] | | | | + + + + + + | BUN/Creatin | 15Comment: Testing | | EXTERNAL | | | ine Ratio | performed at [facility];[address] | | LAB | | | | [address];[place] | | | | | | [address] | | | | + + + + + + | Calcium | 7.9 (L)Comment: Testing | 8.5 - 10.2 | EXTERNAL | | | | performed at [facility];888 | mg/dL | LAB | | | | [address];[place], [place] | | | | | | [address] | | | | + + + [...] | | | at [facility];[address];[place] [address] | | | | + + + + + + + + | Specimen | + + | Blood specimen | | (specimen) | + + + +---------+ + + | Performing | Address | City/State/[facility] | Phone Number | | Organization | [...] | | | Fingerstick | performed at [facility];[address] | | LAB | | | | [address];[place] | | | | | | [address] | | | | + + + [...] | | | Fingerstick | performed at [facility];[address] | | LAB | | | | [address];[place], [place] | | | | | | [address] | | | | + + + [...] | | | Fingerstick | performed at [facility];[address] | | LAB | | | | [address];[place] | | | | | | [address] | | | | + + + [...] | | | Fingerstick | performed at [facility];[address] | | LAB | | | | [address];[place], [place] | | | | | | [address] | | | | + + + [...] | | | Fingerstick | performed at [facility];[address] | | LAB | | | | [address];[place] | | | | | | [address] | | | | + + + [...] | | | Fingerstick | performed at [facility];[address] | | LAB | | | | [address];[place], [place] | | | | | | [address] | | | | + + + [...] | | performed at [facility];888 | mmol/L | LAB | | | | [address];[place], [place] | | | | | | [address] | | | | + + + [...] | | performed at [facility] | | LAB | | | | [address];[place], [place] | | | | | | [address] [...] | | | Fingerstick | performed at [facility];[address] | | LAB | | | | [address];[place], [place] | | | | | | [address] | | | | + + + [...] | | | Fingerstick | performed at [facility];[address] | | LAB | | | | [address];[place], [place] | | | | | | [address] | | | | + + + [...] | | | Fingerstick | performed at [facility];[address] | | LAB | | | | [address];[place], [place] | | | | | | [address] | | | | + + + + + + + + | Specimen | + + | | + + + +---------+ + + | Performing | Address | City/State/Zipcode | Phone Number | | Organization | | | | + +---------+ + + | EXTERNAL LAB | | | | + +---------+ + + XR Chest 1 Vw (05/06/2013 5:42 AM PST) + + | [...] Rad Conversion - 11/20/2018 1:53 PM PDT HISTORY:Respiratory [...] | | | Fingerstick | performed at [facility];[address] | | LAB | | | | [address];[place], [place] | | | | | | [address] | | | | + + + [...] | | | | performed at [facility], [address] | | LAB | | | | [address], | | | | | | [place] [address] | | | | + + + + + + | Non- | 4.48Comment: Testing | 3.70 - 5.10 | EXTERNAL | | | Red Blood | performed at [facility], [address] | M/uL | LAB | | | Cells | [address], | | | | | Counted | [place] [address] | | | | + + + + + + | Hemoglobin | 11.7Comment: Testing | 11.3 - 15.5 | EXTERNAL | | | | performed at [facility], [address] | g/dL | LAB | | | | [address], | | | | | | [place] [address] | | | | + + + + + + | Hematocrit, | 36.6Comment: Testing | 34.0 - 46.0 % | EXTERNAL | | | POC | performed at [facility], [address] | | LAB | | | | [address], | | | | | | [place] [address] | | | | + + + + + + | MCV | 81.7Comment: Testing | 80.0 - 100.0 fl | EXTERNAL | | | | performed at [facility], [address] | | LAB | | | | [address], | | | | | | [place] [address] | | | | + + + + + + | MCH | 26.1 (L)Comment: Testing | 27.0 - 34.0 pg | EXTERNAL | | | | performed at [facility], [address] | | LAB | | | | [address], | | | | | | [place] [address] | | | | + + + + + + | MCHC | 32.0Comment: Testing | 32.0 - 35.5 | EXTERNAL | | | | performed at [facility], [address] | g/dL | LAB | | | | [address], | | | | | | [place] [address] | | | | + + + + + + | RDW-CV | 39.8Comment: Testing | 37 - 53 fl | EXTERNAL | | | | performed at [facility], [address] | | LAB | | | | [address], | | | | | | [place] [address] | | | | + + + + + + | Platelet | 202Comment: Testing | 150 - 400 K/uL | EXTERNAL | | | Count | performed at [facility], [address] | | LAB | | | Plasma | [address], | | | | | | [place] [address] | | | | + + + + + + | MPV | 8.3Comment: Testing | fl | EXTERNAL | | | | performed at [facility], [address] | | LAB | | | | [address], | | | | | | [place] [address] | | | | + + + + + + | Differentia | AUTOMATEDComment: | | EXTERNAL | | | l Type | Testing performed at | | LAB | | | | [facility], [address] | | | | | | [place] | | | | | | [address] | | | | + + + [...] | | performed at [facility];[address] | | LAB | | | | [address];[place], [place] | | | | | | [address] | | | | + + + [...] | | performed at [facility];[address] | | LAB | | | | [address];[place], [place] | | | | | | [address] | | | | + + + [...] | EXTERNAL | | | A1c | [facility] | | LAB | | | [...] | | | | performed at [facility], [address] | | | | | [address] [facility], | | | | | | [place] [address] | | | | + + + [...] | | | | performed at [facility], [address] | | | | | | [facility], | | | | | | [place] [address] | | | | + + + [...] | | performed at [facility];[address] | | LAB | | | | [address];[place], [place] | | | | | | [address] | | | | + + + [...] | | performed at [facility];[address] | mmol/L | LAB | | | | [address];[place] | | | | | | [address] | | | | + + + + + + | K | 3.7Comment: Testing | 3.5 - 4.9 | EXTERNAL | | | | performed at [facility];[address] | mmol/L | LAB | | | | [address];[place] | | | | | | [address] | | | | + + + + + + | Cl | 109Comment: Testing | 99 - 109 mmol/L | EXTERNAL | | | | performed at [facility];[address] | | LAB | | | | [address];[place] | | | | | | [address] | | | | + + + + + + | CO2 | 25Comment: Testing | 23 - 32 mmol/L | EXTERNAL | | | | performed at [facility];[address] | | LAB | | | | [address];[place] | | | | | | [address] | | | | + + + + + + | Anion Gap | 11Comment: Testing | 5 - 20 mmol/L | EXTERNAL | | | | performed at [facility];[address] | | LAB | | | | [address];[place] | | | | | | [address] | | | | + + + + + + | Glucose, | 97Comment: Testing | 65 - 99 mg/dL | EXTERNAL | | | Fasting | performed at [facility];[address] | | LAB | | | | [address];[place] | | | | | | [address] | | | | + + + + + + | BUN | 6 (L)Comment: Testing | 8 - 25 mg/dL | EXTERNAL | | | | performed at [facility];[address] | | LAB | | | | [address];[place] | | | | | | [address] | | | | + + + + + + | Creatinine | 0.70Comment: Testing | 0.50 - 1.00 | EXTERNAL | | | | performed at [facility];[address] | mg/dL | LAB | | | | [address];[place] | | | | | | [address] | | | | + + + + + + | BUN/Creatin | 9Comment: Testing | | EXTERNAL | | | ine Ratio | performed at [facility];[address] | | LAB | | | | [address];[place] | | | | | | [address] | | | | + + + + + + | Calcium | 7.5 (L)Comment: Testing | 8.5 - 10.2 | EXTERNAL | | | | performed at [facility];[address] | mg/dL | LAB | | | | [address];[place] | | | | | | [address] | | | | + + + [...] | | | at [facility];[address] | | | | | | [address];[place] [address] | | | | + + + [...] | | | Fingerstick | performed at [facility];[address] | | LAB | | | | [address];[place], [place] | | | | | | [address] | | | | + + + [...] | | | Fingerstick | performed at [facility];[address] | | LAB | | | | [address];[place] | | | | | | [address] | | | | + + + [...] | | | Fingerstick | performed at [facility];[address] | | LAB | | | | [address];[place] | | | | | | [address] | | | | + + + [...] | | | Fingerstick | performed at [facility];[address] | | LAB | | | | [address];[place] | | | | | | [address] | | | | + + + [...] | | | Fingerstick | performed at [facility];[address] | | LAB | | | | [address];[place], [place] | | | | | | [address] | | | | + + + [...] | | performed at [facility];888 | mmol/L | LAB | | | | [address];[place] | | | | | | [address] | | | | + + + [...] | | performed at [facility] | | LAB | | | | [address] [facility];[place], [place] | | | | | | [address] | | | | + + + [...] | | performed at [facility];[address] | | LAB | | | | [address];[place] | | | | | | [address] | | | | + + + [...] | Testing performed at | | | [facility];[address] [facility];[place] [address] CULTURE | | | NO GROWTH | | | Testing performed at [facility], [address] [facility], | | | [place] [address] REPORT STATUS | | | 05/06/2013 FINAL [...] | | performed at [facility];[address] | | LAB | | | | [address];[place] | | | | | | [address] | | | | + + + + + + | RBC, UA | 16-25Comment: Testing | 0 - 5 /hpf | EXTERNAL | | | | performed at [facility];[address] | | LAB | | | | [address];[place] | | | | | | [address] | | | | + + + + + + | Epithelial | 1-5Comment: Testing | /lpf | EXTERNAL | | | Cells | performed at [facility];[address] | | LAB | | | | [address];[place] | | | | | | [address] | | | | + + + + + + | Bacteria, | 1+ (A)Comment: Testing | | EXTERNAL | | | UA | performed at [facility];[address] | | LAB | | | | [address];[place], [place] | | | | | | [address] | | | | + + + [...] | | performed at [facility];[address] | | LAB | | | | [address];[place] | | | | | | [address] | | | | + + + + + + | Clarity, | CLOUDYComment: Testing | | EXTERNAL | | | Urine | performed at [facility];[address] | | LAB | | | | [address];[place] | | | | | | [address] | | | | + + + + + + | Specific | 1.015Comment: Testing | 1.001 - 1.035 | EXTERNAL | | | Amelia, | performed at [facility];[address] | | LAB | | | Urine | [address];[place] | | | | | | [address] | | | | + + + + + + | Leukocyte | SMALL (A)Comment: | | EXTERNAL | | | Esterase, | Testing performed at | | LAB | | | Urine | [facility];[address];[place] [address] | | | | + + + + + + | Nitrite, | NEGATIVEComment: Testing | | EXTERNAL | | | Urine | performed at [facility];[address] | | LAB | | | | [address];[place] | | | | | | [address] | | | | + + + + + + | Urobilinoge | 0.2Comment: Testing | mg/dL | EXTERNAL | | | n, Urine | performed at [facility];[address] | | LAB | | | | [address];[place] | | | | | | [address] | | | | + + + + + + | Protein, | NEGATIVEComment: Testing | mg/dL | EXTERNAL | | | Urine | performed at [facility];[address] | | LAB | | | | [address];[place] | | | | | | [address] | | | | + + + + + + | pH, Urine | 6.0Comment: Testing | 4.6 - 8.0 | EXTERNAL | | | | performed at [facility];[address] | | LAB | | | | [address];[place] | | | | | | [address] | | | | + + + + + + | Blood, | LARGE (A)Comment: | | EXTERNAL | | | Urine | Testing performed at | | LAB | | | | [facility];[address];[place] [address] | | | | + + + + + + | Ketones | NEGATIVEComment: Testing | mg/dL | EXTERNAL | | | | performed at [facility];[address] | | LAB | | | | [address];[place] | | | | | | [address] | | | | + + + + + + | Bilirubin, | NEGATIVEComment: Testing | | EXTERNAL | | | Urine | performed at [facility];[address] | | LAB | | | | [address];[place] | | | | | | [address] | | | | + + + + + + | Glucose, | NEGATIVEComment: Testing | mg/dL | EXTERNAL | | | Urine | performed at [facility];[address] | | LAB | | | | [address];[place] | | | | | | [address] | | | | + + + [...] | | | Fingerstick | performed at [facility];[address] | | LAB | | | | [address];[place], [place] | | | | | | [address] | | | | + + + [...] | | | Fingerstick | performed at [facility];[address] | | LAB | | | | [address];[place] | | | | | | [address] | | | | + + + [...] | Testing performed | | | at [facility];[address] [place] [address] SPECIAL REQUESTS | | | RAC | | | Testing performed at [facility];[address] [place] [address] | | | CULTURE NO GROWTH 6 DAYS | | | Testing performed | | | at [facility], [address] [place] [address] REPORT STATUS | | | 05/11/2013 FINAL [...] | | | Fingerstick | performed at [facility];[address] | | LAB | | | | [address];[place] | | | | | | [address] | | | | + + + + + + + + | Specimen | + + | | + + + +---------+ + + | Performing | Address | City/State/Zipcode | Phone Number | | Organization | | | | + +---------+ + + | EXTERNAL LAB | | | | + +---------+ + + XR Chest 1 Tyrell (05/05/2013 2:51 PM PST) + + | [...] | | performed at [facility];[address] | | LAB | | | | [address];[place] | | | | | | [address] | | | | + + + + + + | Non- | 4.48Comment: Testing | 3.70 - 5.10 | EXTERNAL | | | Red Blood | performed at [facility];[address] | M/uL | LAB | | | Cells | [address];[place] | | | | | Counted | [address] | | | | + + + + + + | Hemoglobin | 12.4Comment: Testing | 11.3 - 15.5 | EXTERNAL | | | | performed at [facility];[address] | g/dL | LAB | | | | [address];[place] | | | | | | [address] | | | | + + + + + + | Hematocrit, | 36.1Comment: Testing | 34.0 - 46.0 % | EXTERNAL | | | POC | performed at [facility];[address] | | LAB | | | | [address];[place] | | | | | | [address] | | | | + + + + + + | MCV | 80.6Comment: Testing | 80.0 - 100.0 fl | EXTERNAL | | | | performed at [facility];[address] | | LAB | | | | [address];[place] | | | | | | [address] | | | | + + + + + + | MCH | 27.7Comment: Testing | 27.0 - 34.0 pg | EXTERNAL | | | | performed at [facility];[address] | | LAB | | | | [address];[place] | | | | | | [address] | | | | + + + + + + | MCHC | 34.3Comment: Testing | 32.0 - 35.5 | EXTERNAL | | | | performed at [facility];[address] | g/dL | LAB | | | | [address];[place] | | | | | | [address] | | | | + + + + + + | RDW-CV | 41.1Comment: Testing | 37 - 53 fl | EXTERNAL | | | | performed at [facility];[address] | | LAB | | | | [address];[place] | | | | | | [address] | | | | + + + + + + | Platelet | 211Comment: Testing | 150 - 400 K/uL | EXTERNAL | | | Count | performed at [facility];[address] | | LAB | | | Plasma | [address];[place] | | | | | | [address] | | | | + + + + + + | MPV | 8.2Comment: Testing | fl | EXTERNAL | | | | performed at [facility];[address] | | LAB | | | | [address];[place] | | | | | | [address] | | | | + + + + + + | Differentia | AUTOMATEDComment: | | EXTERNAL | | | l Type | Testing performed at | | LAB | | | | [facility];[address];[place] [address] | | | | + + + [...] | | performed at [facility];[address] | | LAB | | | [address];[place], [place] | | | | | | [address] | | | | + + + [...] | | performed at [facility];[address] | | LAB | | | | [address];[place] | | | | | | [address] | | | | + + + [...] | | performed at [facility];[address] | mmol/L | LAB | | | | [address];[place] | | | | | | [address] | | | | + + + + + + | K | 3.4 (L)Comment: Testing | 3.5 - 4.9 | EXTERNAL | | | | performed at [facility];[address] | mmol/L | LAB | | | | [address];[place] | | | | | | [address] | | | | + + + + + + | Cl | 104Comment: Testing | 99 - 109 mmol/L | EXTERNAL | | | | performed at [facility];[address] | | LAB | | | | [address];[place] | | | | | | [address] | | | | + + + + + + | CO2 | 27Comment: Testing | 23 - 32 mmol/L | EXTERNAL | | | | performed at [facility];[address] | | LAB | | | | [address];[place] | | | | | | [address] | | | | + + + + + + | Anion Gap | 11Comment: Testing | 5 - 20 mmol/L | EXTERNAL | | | | performed at [facility];[address] | | LAB | | | | [address];[place] | | | | | | [address] | | | | + + + + + + | Glucose, | 188 (H)Comment: Testing | 65 - 99 mg/dL | EXTERNAL | | | Fasting | performed at [facility];[address] | | LAB | | | | [address];[place] | | | | | | [address] | | | | + + + + + + | BUN | 3 (L)Comment: Testing | 8 - 25 mg/dL | EXTERNAL | | | | performed at [facility];[address] | | LAB | | | | [address];[place] | | | | | | [address] | | | | + + + + + + | Creatinine | 0.81Comment: Testing | 0.50 - 1.00 | EXTERNAL | | | | performed at [facility];888 | mg/dL | LAB | | | | [address];[place] | | | | | | [address] | | | | + + + + + + | BUN/Creatin | 4Comment: Testing | | EXTERNAL | | | ine Ratio | performed at [facility];[address] | | LAB | | | | [address];[place] | | | | | | [address] | | | | + + + + + + | Calcium | 7.6 (L)Comment: Testing | 8.5 - 10.2 | EXTERNAL | | | | performed at [facility];888 | mg/dL | LAB | | | | [address];[place] | | | | | | [address] | | | | + + + + + + | Protein, | 6.3Comment: Testing | 6.3 - 8.2 g/dL | EXTERNAL | | | Total | performed at [facility];[address] | | LAB | | | | [address];[place] | | | | | | [address] | | | | + + + + + + | Albumin | 2.2 (L)Comment: Testing | 3.6 - 5.0 g/dL | EXTERNAL | | | | performed at [facility];[address] | | LAB | | | | [address];[place] | | | | | | [address] | | | | + + + + + + | Globulin | 4.1Comment: Testing | 1.3 - 4.9 g/dL | EXTERNAL | | | | performed at [facility];[address] | | LAB | | | | [address];[place] | | | | | | [address] | | | | + + + + + + | A/G Ratio | 0.5 (L)Comment: Testing | 1.0 - 2.4 | EXTERNAL | | | | performed at [facility];[address] | | LAB | | | | [address];[place] | | | | | | [address] | | | | + + + + + + | Bilirubin | 0.5Comment: Testing | 0.1 - 1.5 mg/dL | EXTERNAL | | | Total | performed at [facility];[address] | | LAB | | | | [address];[place] | | | | | | [address] | | | | + + + + + + | ALP, | 99Comment: Testing | 35 - 115 U/L | EXTERNAL | | | External | performed at [facility];[address] | | LAB | | | | [address];[place] | | | | | | [address] | | | | + + + + + + | AST | 134 (H)Comment: Testing | 10 - 45 U/L | EXTERNAL | | | | performed at [facility];[address] | | LAB | | | | [address];[place] | | | | | | [address] | | | | + + + + + + | ALT | 157 (H)Comment: Testing | 10 - 65 U/L | EXTERNAL | | | | performed at [facility];[address] | | LAB | | | | [address];[place] | | | | | | [address] | | | | + + + [...] | | | at [facility];[address];[place] [address] | | | | + + + [...] | Testing performed | | | at [facility];[address] [facility];[place] [address] SPECIAL REQUESTS | | | RAC | | | Testing performed at [facility];[address] [facility];[place] [address] | | | CULTURE NO GROWTH 6 DAYS | | | Testing performed | | | at [facility], [address] [place] [address] REPORT STATUS | | | 05/11/2013 FINAL [...] | | | Fingerstick | performed at [facility];888 | | LAB | | | | [address];[place] | | | | | | [address] | | | | + + + + + + + + | Specimen | + + | | + + + +---------+ + + | Performing | Address | City/State/Zipcode | Phone Number | | Organization | | | | + +---------+ + + | EXTERNAL LAB | | | | + +---------+ + + MRSA NAAT (05/05/2013 12:57 PM PST) + + | Specimen | + + | | + + + + + | Narrative | Performed At | + + + | [facility](NOSE) | EXTERNAL LAB | | Testing performed at [facility];[address] [place] [address];[place] [address] MRSA PCR | | | NEGATIVE Testing performed at | | | [address];[place] [address] | | + + + + +---------+ [...] | Testing performed at | | | [facility];[address] [facility];[place] [address] GRAM STAIN | | | GREATER THAN 10 WBCS/LPF | | | LESS THAN 10 SEC/LPF | | | NO ORGANISMS SEEN | | | Testing performed at [facility], [address] | | | [address] [facility], [place] [address] CULTURE | | | NO GROWTH 2 DAYS | | | Testing performed at [facility], [address] [facility], | | | [place] [address] REPORT STATUS | | | 05/07/2013 FINAL [...] | Acute respiratory distress syndrome (ARDS) (HCC) Other pulmonary insufficiency, not | | elsewhere classified, following trauma and surgery | + + | Influenza A Influenza with other respiratory manifestations | + + | Morbid obesity with BMI of 45.0-49.9, adult (HCC) | + + | Poorly controlled diabetes mellitus (HCC) Type II or unspecified type diabetes | | mellitus without mention of complication, not stated as uncontrolled | + + | Secondary bacterial pneumonia | + + documented in this encounter
--- OUTSIDE RECORDS SUMMARY | ~2020-01-17 | XMS | Encounter Summary ---
Demographics + + + | Address | [address] | | | [place] [address] | + + + | Home Phone [...] Team Providers + +------+ + | Care Shrimper Name | Role | Phone | + [...] + + | 05/06/ | Refill | [facility] | Rosa M Raman, | Medication Refill | | 2020 | | NEUROLOGY [address] | MD [address] | | | | | [address] | [address] | | | | | [place], [place] | [place] [address] | | | | | [address] | [phone] | | | | | [phone] | | | +--------+--------+ + + + [...] Miscellaneous Notes Telephone Encounter - Miranda Coulter, Mapping Supervisor - 05/07/2019 4:22 PM PSTGabapent in [address] [...] [place], | | | | | | [place] [address] | | | | | | [phone] | | | | | | | | +--------+ + + + + | 03/22/ | Office | Neurology | Elaine Andrews, | | | 2019 | Visit | | MD [address] | | | | | | [place] | | | | | | [place] [address] | | | | | | [phone] | | | | | | | | +--------+ + + + + documented as of this encounter Visit Diagnoses Not on filedocumented in this encounter"
--- OUTSIDE RECORDS SUMMARY | ~2020-01-17 | XMS | Encounter Summary ---
Demographics + + + | Address | [address] | | | [place] [address] | + + + | Home Phone [...] Team Providers + +------+ + | Care Supply Chain Design Manager Name | Role | Phone | [...] + + | 10/04/ | Telephone | [facility] | Elaine Andrews, | Appointment | | 2020 | | NEUROLOGY [address] | [address] | (schedule) | | | | [address] | [address] | | | | | [place], [place] | [place] [address] | | | | | [address] | [phone] | | | | | [phone] | | | +--------+ + + + [...] transfer the call to a ainsley lloyd airveyor operator was caller made aware that if [...] | | | | | | [place] [address] | | | | | | [phone] | | | | | | | | +--------+ + + + + | 03/22/ | Office | Neurology | Elaine Andrews, | | | 2019 | Visit | | MD [address] | | | | | | [place] | | | | | | [place] [address] | | | | | | [phone] | | | | | | | | +--------+ + + + + documented as of this encounter Visit Diagnoses Not on filedocumented in this encounter"
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
--- OUTSIDE RECORDS SUMMARY | ~2020-01-17 | XMS | Encounter Summary ---
Demographics + + + | Address | [address] | | | [place] [address] | + + + | Home Phone | | + + + | Preferred Language | Unknown | + + + | Marital Status | | + + + | Yazidism Affiliation | Unknown | + + + [...] Team Providers + +------+ + | Care Sweatband Decorating Machine Operator Name | Role | Phone | + +------+ + PCP | Unavailable | + +------+ + Encounter Details +--------+ + + + + | Date | Type | Department | Care Team | Description | +--------+ + + + + | 02/26/ | Hospital | [facility] | Fabián Salas | | | 2010 - | Encounter | [facility] | MD [address] | | | | | CENTER [address] | [address] [place] | | | 03/06/ | | [place] | [place] [address] | | | 2010 | | [address] | [phone] | | | | | [phone] | | | +--------+ + + + [...] [place], | | | | | | [place] [address] | | | | | | [phone] | | | | | | | | +--------+ + + + + | 03/22/ | Office | Neurology | Elaine Andrews, | | | 2019 | Visit | | MD [address] | | | | | | [place] | | | | | | [place] [address] | | | | | | [phone] | | | | | | | | +--------+ + + + + documented as of this encounter Visit Diagnoses Not on filedocumented in this encounter"
--- OUTSIDE RECORDS SUMMARY | ~2020-01-17 | XMS | Encounter Summary ---
Demographics + + + | Address | [address] | | | [place] [address] | + + + | Home Phone [...] Team Providers + +------+ + | Care Toll Ticket Clerk Name | Role | Phone | + +------+ + PCP | Unavailable | + +------+ + Encounter Details +--------+ + + + + | Date | Type | Department | Care Team | Description | +--------+ + + + + | 07/19/ | Hospital | [facility] | Conversion | Pain | | 2015 | Encounter | CONVERSION [address] | Transaction, | | | | | [address] | Provider Unknown | | | | | [place], [place] | [phone] | | | | | [address] | (Fax) | | | | | [phone] | | | +--------+ + + + [...] [place], | | | | | | [place] [address] | | | | | | [phone] | | | | | | | | +--------+ + + + + | 03/22/ | Office | Neurology | Elaine Andrews, | | | 2019 | Visit | | MD [address] | | | | | | [place] | | | | | | [place] [address] | | | | | | [phone] | | | | | | | [...]
--- OUTSIDE RECORDS SUMMARY | ~2020-01-17 | XMS | Encounter Summary ---
Demographics + + + | Address | [address] | | | [place] [address] | + + + | Home Phone [...] Team Providers + +------+ + | Care Surgical Services Tech Name | Role | Phone | [...] + + | 10/15/ | Refill | [facility] | Elaine Andrews, | Medication Refill | | 2020 | | NEUROLOGY [address] | MD [address] | | | | | [address] | [address] | | | | | [place], [place] | [place] [address] | | | | | [address] | [phone] | | | | | [phone] | | | +--------+--------+ + + + [...] - 10/19/2019 2:15 PM PDTCalled patient, wilian melton her to schedule for follow up tomorrow [...] | | | Visit | | MD [address] | | | | | | [place] | | | | | | [place] [address] | | | | | | [phone] | | | | | | | | +--------+ + + + + | 03/22/ | Office | Neurology | Elaine Andrews, | | | 2019 | Visit | | MD [address] | | | | | | [place] | | | | | | [place] [address] | | | | | | [phone] | | | | | | | | +--------+ + + + + documented as of this encounter Visit Diagnoses Not on filedocumented in this encounter"
--- OUTSIDE RECORDS SUMMARY | ~2020-01-17 | XMS | Encounter Summary ---
Demographics + + + | Address | [address] | | | [place] [address] | + + + | Home Phone [...] Providers + +------+ + | Care Bottom Precipitator Operator Name | Role | Phone | [...] | | | | [place] | [phone] | | | | | [address] | | | | | | [phone] | | | +--------+ + + + [...] | | | | | | [place] [address] | | | | | | [phone] | | | | | | | | +--------+ + + + + | 03/22/ | Office | Neurology | Elaine Andrews, | | | 2019 | Visit | | MD [address] | | | | | | [place] | | | | | | [place] [address] | | | | | | [phone] | | | | | | | | +--------+ + + + + documented as of this encounter Visit Diagnoses Not on filedocumented in this encounter"
--- OUTSIDE RECORDS SUMMARY | ~2020-01-17 | XMS | Encounter Summary ---
Demographics + + + | Address | [address] | | | [place] [address] | + + + | Home Phone | | + + + | Preferred Language | Unknown | + + + | Marital Status | | + + + | Jain Affiliation | Unknown | + + + | Race | White | + + + | Ethnic Group | Not or | + + + Author + + + | Author | [facility] | | | and [place] | + + + | Organization | [facility] | | [...] Team Providers + +------+ + | Care Truck Terminal Manager Name | Role | Phone | + +------+ + PCP | Unavailable | + +------+ + Encounter Details +--------+ + + + + | Date | Type | Department | Care Team | Description | +--------+ + + + + | 11/08/ | Emergency | [facility] | Patrick Huston, | Patient left before | | 2014 | | MEDICAL CENTER | MD Toi Stanton | treatment completed | | | | EMERGENCY CENTER | [place] | | | | | [address] | [address] | | | | | [place], [place] | [phone] | | | | | [address] | | | | | | [phone] | | | +--------+ + + + [...] 11/08/132155 Date of Service: 11/08/132155 Status: Signed Fire Alarm Inspector: Florencia Lancaster RN (Registered Nurse) No belongings in pt room, no people noted in pt room. Florencia Lancaster RN 11/08/132155 onver [place]ain[place] Transaction, Provider Unknown - 11/08/2013 9:52 PM PDT ED Notes by Marysol Kramer RN at 11/08/132151 Author: Marysol Kramer RN Service: (none) Author Type: Registered Nurse Filed: 11/08/132151 Date of Service: 11/08/132151 Status: Signed Fire Alarm Inspector: Marysol Kramer RN (Registered Nurse) Patient left the room at this time. Marysol Kramer RN 11/08/132151 onver elaina Transaction, Provider Unknown - 11/08/2013 9:49 PM PDT ED Notes by Marysol Kramer RN at 11/08/132148 Author: Marysol Kramer RN Service: (none) Author Type: Registered Nurse Filed: 11/08/132151 Date of Service: 11/08/132148 Status: Signed Fire Alarm Inspector: Marysol Kramer RN (Registered Nurse) Pt caregiver [...] 11/08/132142 Date of Service: 11/08/132141 Status: Signed Fire Alarm Inspector: Florencia Lancaster RN (Registered Nurse) Pt caregiver [...] 0237 Date of Service: 11/08/132121 Status: Signed Fire Alarm Inspector: Patrick Huston MD (Physician) [facility] Department of Emergency Medicine 9:22 PM [...] Procedure: TRACHEOSTOMY; Surgeon: Fabián Novoa MD; Location: [facility] MAIN OR; Service: ENT ; Laterality: [...] reviewed (Using the electronic record system of [facility], Hermila tirado reviewed the records [...] 11/08/132127 Date of Service: 11/08/132120 Status: Signed Fire Alarm Inspector: Florencia Lancaster RN (Registered Nurse) Pt c/o [...] [place], | | | | | | [place] [address] | | | | | | [phone] | | | | | | | | +--------+ + + + + | 03/22/ | Office | Neurology | Elaine Andrews, | | | 2019 | Visit | | MD [address] | | | | | | [address] | | | | | | [place] [address] | | | | | | [phone] | | | | | | | | +--------+ + + + + documented as of this encounter Visit Diagnoses + + | Diagnosis | + + | Patient left before treatment completed Personal history of noncompliance with | | medical treatment, presenting hazards to health | + + documented in this encounter
--- OUTSIDE RECORDS SUMMARY | ~2020-01-17 | XMS | Encounter Summary ---
Demographics + + + | Address | [address] | | | [place] [address] | + + + | Home Phone [...] Team Providers + +------+ + | Care Show Jumping Instructor Name | Role | Phone | + +------+ + | Mynor Kam MD | PCP | | + +------+ + Encounter Details +--------+ + + + + | Date | Type | Department | Care Team | Description | +--------+ + + + + | 10/29/ | Orders Only | [facility] | Elaine Andrews, | | | 2019 | | NEUROLOGY [address] | [address] | | | | | [address] | [address] | | | | | [place], [place] | [place] [address] | | | | | [address] | [phone] | | | | | [phone] | | | +--------+ + + + [...] | | | | | | [place] [address] | | | | | | [phone] | | | | | | | | +--------+ + + + + | 03/22/ | Office | Neurology | Elaine Andrews, | | | 2019 | Visit | | MD [address] | | | | | | [place] | | | | | | [place] [address] | | | | | | [phone] | | | | | | | | +--------+ + + + + documented as of this encounter Visit Diagnoses Not on filedocumented in this encounter"
--- OUTSIDE RECORDS SUMMARY | ~2020-01-17 | XMS | Encounter Summary ---
Demographics + + + | Address | [address] | | | [place] [address] | + + + | Home Phone | | + + + | Preferred Language | Unknown | + + + | Marital Status | | + + + | Yarsanism Affiliation | Unknown | + + + | Race | White | + + + | Ethnic Group | Not or | + + + Author + + + | Author | [facility] | | | and [place] | + + + | Organization | [facility] | | | [...] Team Providers + +------+ + | Care Air Conditioning Mechanic Name | Role | Phone | [...] Provider Unknown | | | | | [place], [place] | [phone] | | | | | [address] | | | | | | [phone] | | | +--------+ + + + [...] [place], | | | | | | [place] [address] | | | | | | [phone] | | | | | | | | +--------+ + + + + | 03/22/ | Office | Neurology | Elaine Andrews, | | | 2019 | Visit | | MD [address] | | | | | | [place] | | | | | | [place] [address] | | | | | | [phone] | | | | | | | [...]
--- OUTSIDE RECORDS SUMMARY | ~2020-01-17 | XMS | Clinical Summary ---
Demographics + + + | Address | [address] | | | [place] [address] | + + + | Home Phone | | + + + | Preferred Language | Unknown | + + + | Marital Status | | + + + | Denominational Affiliation | Unknown | + + + [...] Team Providers + +------+ + | Care Ibm Websphere Commerce Consultant Name | Role | Phone | + +------+ + | Erlinda Oneal PA-C | PCP | | + +------+ + Source Comments FAB is fully live on both [facility] Ambulatory and [facility] InPatient.[facility] Allergies Not on File Medications Not on [...] + +--------+ | MEDICARE | MEDICA | [id number] | 10/06/19 | [phone] | [address] | [address] | | | RE A & | | [address] | 1 | [address] | re | | | B | | sent | | [place] | | | | | | | | [address] | | + +--------+ +--------+ + +--------+ | MEDICAID [place] | OHP | [id number] | | [phone] | [address] | [address] | | | PLUS | | [address]19-[address] | 6 | [address] | id | | | OPEN | | esent | | [place], [place] | | | | CARD | | | | [phone] | | + +--------+ +--------+ + +--------+ [...] | 1966 | [phone] | [place] [address] | | | fausto | | | 3 (Home) | | + +--------+ +--------+ + +"
--- OUTSIDE RECORDS SUMMARY | ~2020-01-17 | XMS | Encounter Summary ---
Demographics + + + | Address | [address] | | | [place] [address] | + + + | Home Phone [...] Team Providers + +------+ + | Care Roller Man Name | Role | Phone | + +------+ + | Mynor Kam MD | PCP | | + +------+ + Encounter Details +--------+---------+ + + + | Date | Type | Department | Care Team | Description | +--------+---------+ + + + | 06/01/ | Office | [facility] | Matt, | Uncontrolled | | 2020 | Visit | PULMONOLOGY [address] | [place], | moderate persistent | | | | [address] | MD [address] | asthma (Primary Dx); | | | | [facility] [place] | [place], | ARDS survivor; | | | | [address] | [place] [address] | 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 Her course was long and difficult -sh e eventually underwent a tracheostomy insertion by Dr Bright Teixeira), and then she was eventua lly moved to an acute Rehab facility close to [place] ([facility]). She reports abi t she had a horrible time here. After close to a week of staying in the facility, her trache ostomy tube managed to fall out and she suffered from hypoxemia with bilateral lung atelecta sis. She was brought to [facility] where they put her trach [...] the past. S he has lived in [place] most of her life. She now lives in [place]. She lived in [place] for two years [...] Date Asthma Bronchitis DVT (deep venous thrombosis) ([facility]) in thigh; no longer on coumadin Dvt femoral (deep venous thrombosis) ([facility]) Epilepsy (HCC) Fibromyalgia Fibromyalgia HX OTHER MEDICAL [...] Procedure: TRACHEOSTOMY; Surgeon: Fabián Novoa MD; Location: [facility] MAIN OR; Service: ENT; Laterality: [...] MD Pulmonary and Critical Care Medicine [facility] [place] [address] NDAdomarisol melton in this encounter Plan of Treatment +--------+ [...] | | | | | | [place] [address] | | | | | | [phone] | | | | | | | | +--------+ + + + + | 03/22/ | Office | Neurology | Elaine Andrews, | | 2019 | Visit | | MD [address] | | | | | | [place] | | | | | | [place] [address] | | | | | | [phone] | | | | | | | [...]
--- OUTSIDE RECORDS SUMMARY | ~2020-01-17 | XMS | Encounter Summary ---
Demographics + + + | Address | [address] | | | [place] [address] | + + + | Home Phone [...] Providers + +------+ + | Care Air Brush Decorator Name | Role | Phone | + [...] [address] | | | | | [place], [place] | [address] | | | | | [address] | [place] [address] | | | | | [phone] | [phone] | | | | | | | [...] | | | | | | [place] [address] | | | | | | [phone] | | | | | | | | +--------+ + + + + | 03/22/ | Office | Neurology | Elaine Andrews, | | | 2019 | Visit | | MD [address] | | | | | | [place] | | | | | | [place] [address] | | | | | | [phone] | | | | | | | [...] documented in this encounter Results External Lab: [facility] (08/13/2018 3:15 PM PDT) + + + [...]
--- OUTSIDE RECORDS SUMMARY | ~2020-01-17 | XMS | Encounter Summary ---
Demographics + + + | Address | [address] | | | [place] [address] | + + + | Home Phone [...] Team Providers + +------+ + | Care Neurosurgical Nurse Practitioner Name | Role | Phone | + +------+ + | Mynor Kam MD | PCP | | + +------+ + Encounter Details +--------+ + + + + | Date | Type | Department | Care Team | Description | +--------+ + + + + | 06/26/ | Orders Only | [facility] | Matt, | | | 2019 | | PULMONOLOGY [address] | [place], | | | | | [address] | [address] | | | | | [place], [place] | [place], | | | | | [address] | [place] [address] | | | | | [phone] | [phone] | | | | | | | [...] [place] | | | | | | [place] [address] | | | | | | [phone] | | | | | | | | +--------+ + + + + | 03/22/ | Office | Neurology | Elaine Andrews, | | | 2019 | Visit | | MD [address] | | | | | | [address] | | | | | | [place] [address] | | | | | | [phone] | | | | | | | | +--------+ + + + + documented as of this encounter Visit Diagnoses Not on filedocumented in this encounter"
--- OUTSIDE RECORDS SUMMARY | ~2020-01-17 | XMS | Encounter Summary ---
Demographics + + + | Address | [address] | | | [place] [address] | + + + | Home Phone [...] Team Providers + +------+ + | Care Grinder Chipper Name | Role | Phone | + [...] | | | | [place] | [phone] | | | | | [address] | | | | | | [phone] | | | +--------+ + + + [...] [place], | | | | | | [place] [address] | | | | | | [phone] | | | | | | | | +--------+ + + + + | 03/22/ | Office | Neurology | Elaine Andrews, | | | 2019 | Visit | | MD [address] | | | | | | [place] | | | | | | [place] [address] | | | | | | [phone] | | | | | | | | +--------+ + + + + documented as of this encounter Visit Diagnoses Not on filedocumented in this encounter"
--- OUTSIDE RECORDS SUMMARY | ~2020-01-17 | XMS | Encounter Summary ---
Demographics + + + | Address | [address] | | | [place] [address] | + + + | Home Phone [...] Team Providers + +------+ + | Care Bankruptcy Judge Name | Role | Phone | + [...] | | | | ELLIOT BRAMBILA | [phone] | | | | | [phone] | | | | | | [phone] | | | +--------+ + + + [...] | | | | | | [place] [address] | | | | | | [phone] | | | | | | | | +--------+ + + + + | 03/22/ | Office | Neurology | Elaine Andrews, | | | 2019 | Visit | | MD Kim STOUT | | | | | | [address] | | | | | | [place] [address] | | | | | | [phone] | | | | | | | | +--------+ + + + + documented as of this encounter Visit Diagnoses Not on filedocumented in this encounter"
--- NOTE | 2020-01-18 20:30 | EKG ---
[facility] [address] [facility] [place], [place] [address] Signed Sinus tachycardia Nonspecific T wave abnormality Abnormal ECG When compared with ECG of 28-DEC-2019 13:44, No significant change was found Confirmed by SALINAS JACKSON DO ([id number]) on 01/18/2020 8:30:51 PM Electronically Signed By: SALINAS JACKSON DO 01/18/20 2030 PATIENT NAME: FEDERICO SALMON Electrocardiogram DATE OF : 63 PHYSICIAN: SALINAS JACKSON DO REPORT #: [id number] REPORT IS CONFIDENTIAL AND NOT TO BE RELEASED WITHOUT AUTHORIZATION
== END 2020-01-17 16:00 | disposition home or self-care (01) ==
LOC: ED 13:02
DX: R06.00 Dyspnea, unspecified (principal); R09.1 Pleurisy; E11.9 Type 2 diabetes mellitus without complications; J45.909 Unspecified asthma, uncomplicated; Z88.5 Allergy status to narcotic agent; Z79.899 Other long term (current) drug therapy; Z79.4 Long term (current) use of insulin
CPT/HCPCS: 36415; 71045; 80053; 83735; 83880; 84484; 85025; 85610; 93005; 93010; 99285-25

== ENCOUNTER 2020-03-14 19:45 | Emergency (ER) | payer MEDICARE, OTHER ==
[~2020-03-14] VITALS: Ht 167.6 cm; Wt 136.1 kg
--- NOTE | ~2020-03-14 | EKG ---
[facility] [address] [facility] [place], [place] [address] Draft EK completed, results pending confirmation PATIENT NAME: FEDERICO SALMON Electrocardiogram DATE OF : 63 PHYSICIAN: PRELIMINARY REPORT #: [id number] REPORT IS CONFIDENTIAL AND NOT TO BE RELEASED WITHOUT AUTHORIZATION
[2020-03-14] MEDS ORDERED: LANTUS100 UNITS/ SUB-Q (19:56)
[2020-03-14] MEDS ORDERED: JARDIANCE10 MG PO (19:57)
--- NOTE | 2020-03-16 21:30 | EKG ---
[facility] [address] [facility] [place] [address] Signed Sinus tachycardia Nonspecific T wave abnormality Abnormal ECG When compared with ECG of 17-JAN-2020 13:19, No significant change was found Confirmed by CASSIDY MCGHEE MD ([id number]) on 03/16/2020 9:30:09 PM Electronically Signed By: CASSIDY MCGHEE MD 03/16/202129 PATIENT NAME: FEDERICO SALMON Electrocardiogram DATE OF : 63 PHYSICIAN: CASSIDY MCGHEE MD REPORT #: [id number] REPORT IS CONFIDENTIAL AND NOT TO BE RELEASED WITHOUT AUTHORIZATION
--- NOTE | 2020-03-16 21:30 | EKG ---
[facility] [address] [facility] [place], [place] [address] Signed Normal sinus rhythm Normal ECG When compared with ECG of 15-MAR-2020 00:49, (Unconfirmed) QRS axis shifted left Confirmed by CASSIDY MCGHEE MD ([id number]) on 03/16/2020 9:30:35 PM Electronically Signed By: CASSIDY MCGHEE MD 03/16/202129 PATIENT NAME: FEDERICO SALMON Electrocardiogram DATE OF : 63 PHYSICIAN: CASSIDY MCGHEE MD REPORT #: [id number] REPORT IS CONFIDENTIAL AND NOT TO BE RELEASED WITHOUT AUTHORIZATION
== END 2020-03-15 01:24 | disposition home or self-care (01) ==
LOC: ED 19:45
DX: R00.0 Tachycardia, unspecified (principal); D64.9 Anemia, unspecified; I10 Essential (primary) hypertension; E11.22 Type 2 diabetes mellitus with diabetic chronic kidney disease; J45.909 Unspecified asthma, uncomplicated; N18.6 End stage renal disease; Z88.5 Allergy status to narcotic agent; Z79.4 Long term (current) use of insulin; Z79.899 Other long term (current) drug therapy
CPT/HCPCS: 71045; 80053; 83735; 84484; 85025; 93005; 93010; 96374; 99285-25; J2405

== ENCOUNTER 2020-04-04 07:56 | Emergency (ER) | payer MEDICARE, OTHER ==
[~2020-04-04] VITALS: Ht 167.6 cm; Wt 136.1 kg
[~2020-04-04 07:56] MED LIST changes: +JARDIANCE10 MG PO
--- NOTE | 2020-04-04 18:34 | EKG ---
[facility] [address] [facility] [place], [place] [address] Signed Sinus tachycardia Otherwise normal ECG When compared with ECG of 15-MAR-2020 00:56, No significant change was found Confirmed by SALINAS JACKSON DO ([id number]) on 04/04/2020 6:34:41 PM Electronically Signed By: SALINAS JACKSON DO 04/04/20 1834 PATIENT NAME: SALMONFEDERICO Electrocardiogram DATE OF : 63 PHYSICIAN: SALINAS JACKSON DO REPORT #: [id number] REPORT IS CONFIDENTIAL AND NOT TO BE RELEASED WITHOUT AUTHORIZATION
== END 2020-04-04 12:07 | disposition home or self-care (01) ==
LOC: ED 07:56
DX: D64.9 Anemia, unspecified (principal); Z20.828 Contact with and (suspected) exposure to other viral communicable diseases; E11.9 Type 2 diabetes mellitus without complications; Z88.5 Allergy status to narcotic agent; K72.90 Hepatic failure, unspecified without coma; Z79.4 Long term (current) use of insulin; Z79.899 Other long term (current) drug therapy
CPT/HCPCS: 71045; 80053; 83735; 83880; 84484; 85025; 93005; 93010; 94640; 94664; 99285-25; C9803; J7121; U0003

== ENCOUNTER 2020-06-14 10:41 | Observation (INO) | payer MEDICARE, OTHER ==
[~2020-06-14] VITALS: Ht 167.6 cm; Wt 112.4 kg
--- NOTE | 2020-06-14 14:25 | NUR ---
PT ARRIVES TO FLOOR VIA STRETCHER. ABLE TO AMBULATE TO BED. PT'S IN ROOM. VITALS TAKEN, 2L O2 ON THIS IS CHRONIC FOR PT. PT IS ORIENTED TO PLACE AND SELF ONLY. IV BOLUS RUNNING. CALL LIGHT WITHIN REACH.
--- NOTE | 2020-06-14 15:10 | NUR ---
pt REPORTS NAUSEA FOLLOWING ELECTRONIC FIELD SERVICE ENGINEER. 4MG IV ZOFRAN ADMINISTERED NOW.
--- NOTE | 2020-06-14 16:12 | NUR ---
in room for nuclear medical technologist. pt sleeping as this nurse enters room and needs gentle shake to wake. pt swallows pills well. ivf infusing per order. no further needs at this time.
--- NOTE | 2020-06-14 17:22 | NUR ---
in room for 1700 meds. pt is talkative and jovial, eating liquid diet, tolerating well.
[2020-06-14] MEDS ORDERED: TOPROL XL100 MG PO (18:07)
[2020-06-14] MEDS ORDERED: INSULIN LI100 UNIT/2 SUB-Q (18:08)
--- NOTE | 2020-06-14 20:00 | NUR ---
PATIENT RESTING IN BED WATCHING TV AND VISITING WITH HER . NO CURRENT NEEDS. CALL LIGHT IN REACH.
--- NOTE | 2020-06-14 20:35 | NUR ---
CALLED PATIENT WAS HAVING SOME ABD DISCOMFORT AND A LOT OF PAIN IN HER FEET FROM NEUROPATHY. REORDERED HER GABAPENTIN, BUT NOT THE TYLENOL THE PATIENT SUGGESTED. PATIENT GIVEN HER GABAPENTIN AND CARAFATE. PATIENT'S WATER REFILLED. PATIENT INDEPENDENT UP TO THE BATHROOM AND BACK TO BED WITHOUT ANY RESULTS. PATIENT HAD NO OTHER NEEDS AT THIS TIME. CALL LIGHT IN REACH.
--- NOTE | 2020-06-14 21:17 | NUR ---
PT CALLED TO REQUEST ICE. SHE DENIES FURTHER NEEDS. CALL LIGHT IS CLOSE.
--- NOTE | 2020-06-14 22:19 | NUR ---
PT IS BACK IN BED AFTER USING THE RESTROOM. SHE VOIDED 250MLS OF URINE AND STATES SHE HAD A LARGE BM. SHE DENIES FURTHER NEEDS AT THIS TIME. CALL LIGHT IS CLOSE.
--- NOTE | 2020-06-14 22:46 | NUR ---
PATIENT REFUSED THE FIRST EVENING DOSE OF LACTULOSE, BUT HAS AGREED TO TAKE THE MIDNIGHT DOSE. PATIENT SAYS THE LACTULOSE IS CAUSING HER TOO MUCH GASTRIC DISTRESS. PATIENT QUIETLY WATCHING TV, A WARM BLANKET WAS GIVEN, AND CALL LIGHT IS IN REACH. PATIENT HAS NO OTHER NEEDS AT THIS TIME.
--- NOTE | 2020-06-15 00:28 | NUR ---
PATIENT TOOK HER LACTULOSE. PATIENT'S WATER REFILLED. PATIENT HAS NO OTHER NEEDS AT THIS TIME. CALL LIGHT IN REACH.
--- NOTE | 2020-06-15 02:00 | NUR ---
PATIENT'S BLLOD SUGAR WAS 174 AND 4UNITS HUMALOG INSULIN WAS GIVEN, PATIENT HAS ALREADY REFUSED TO 0300 LACTULOSE. PATIENT DOES NOT NEED ANYTHING ELSE AT THIS TIME. CALL LIGHT IS IN REACH.
--- NOTE | 2020-06-15 02:18 | NUR ---
ASSISTED PT TO RESTROOM AND BACK TO BED. WARM BLANKET PROVIDED AND PT DENIES FURTHER NEEDS. CALL LIGHT IS CLOSE.
--- NOTE | 2020-06-15 04:14 | NUR ---
PATIENT RESTING QUIETLY, EYES CLOSED, RESPIRATIONS REGULAR AND EVEN, HEAD OF BED SLIGHTLY ELEVATED, CALL LIGHT IS IN REACH.
--- NOTE | 2020-06-15 06:59 | NUR ---
PATIENT HAS SLEPT SOME IN BETWEEN TRIPS TO THE RESTROOM. PAIN IN PATIENT'S FEET WAS IMPROVED AFTER A CALL TO AND ORDER TO RESTART GABAPENTIN WAS GIVEN. PATIENT VOIDING WELL AND HAD A BOWEL MOVEMENT. TAKING IN PO FLUIDS WELL. SCD'S ARE ON IV FLUSHES WELL AND PATIENT REMAINS A+0. PATIENT DID REFUSE THE 2100 AND 0300 DOSES OF LACTULOSE. PATIENT CURRENTLY GETTING SOME ZOFRAN FOR NAUSEA BY HERIBERTO ROACH.
--- NOTE | 2020-06-15 07:04 | NUR ---
PT CALLED REQUESTING NAUSEA MEDS. ADMINISTERED IV ZOFRAN, PT DENIES FURTHER NEEDS AT THIS TIME. CALL LIGHT IS CLOSE.
--- NOTE | 2020-06-15 08:00 | NUR ---
REPORT RECEIVED FROM NIGHT RN AND PT. CARE RESUMED. PT. DENIES PAIN, EXCEPT FOR MILD HEADACHE THAT IS TOLERABLE. RUQ IS TENDER TO PALP. PT. IS ALERT AND ORIENTED. IV SITE FLUSHES WELL AND WNL. PT. INSISTS ON WAITING A LITTLE WHILE TO TAKE HER LACTULOSE. PT. EDUCATED ON PURPOSE AND IMPORTANCE OF LACTULOSE AND AGREED TO TAKE AT 10AM. LUNGS CLEAR AND BOWEL TONES ACTIVE. PT. LEFT RESTING IN BED WITH CALL LIGHT IN REACH.
[2020-06-15] MEDS ORDERED: XIFAXAN550 MG PO (09:30)
--- NOTE | 2020-06-15 09:31 | NUR ---
MED REC COMPLETE
--- NOTE | 2020-06-15 10:20 | NUR ---
Pt cont. to live at home with her spouse Amado and has a state paid cg. She denies need for equipment and is awaiting an electric wc. CG provides assist with all needs. Gilma states it is becoming harder to leave her home. States she did not realize she was confused and family told her and brought her to the ER. Also states she does not use her lactulose daily as it causes her to have frequent BMS. She is aware this is the reason she takes. Pt plans on dc to home with her spouse and cg. Denies any needs to go home.
--- NOTE | 2020-06-15 11:50 | NUR ---
THIS NURSE REVIEWED ALL DISCHARGE INSTRUCTIONS WITH PT. AND ALL QUESTIONS ANSWERED. IV REMOVED WITH CATH. INTACT. VITALS TAKEN AND LEFT BY WHEELCHAIR WITH ALL BELONGINGS. PT. GIVEN TYLENOL FOR HEADACHE PRIOR TO DISCHARGE. PT. PICKED UP BY HER SPOUSE.
== END 2020-06-15 12:15 | disposition home or self-care (01) ==
LOC: ED 10:41 → MS 10:43
PROVIDERS: ADMIT Internal Medicine; ATTEND Internal Medicine
DX: K72.90 Hepatic failure, unspecified without coma (principal); K76.0 Fatty (change of) liver, not elsewhere classified; K74.60 Unspecified cirrhosis of liver; K76.6 Portal hypertension; I16.0 Hypertensive urgency; J96.11 Chronic respiratory failure with hypoxia; J98.4 Other disorders of lung; K21.9 Gastro-esophageal reflux disease without esophagitis; E11.65 Type 2 diabetes mellitus with hyperglycemia; G89.4 Chronic pain syndrome; M79.7 Fibromyalgia; J45.909 Unspecified asthma, uncomplicated; M19.90 Unspecified osteoarthritis, unspecified site; E86.0 Dehydration; Z87.19 Personal history of other diseases of the digestive system; Z91.14 Patient's other noncompliance with medication regimen; Z88.5 Allergy status to narcotic agent; Z79.4 Long term (current) use of insulin; Z20.822 Contact with and (suspected) exposure to COVID-19; Z87.01 Personal history of pneumonia (recurrent)
CPT/HCPCS: 36415; 80053; 81001; 82140; 83036; 85025; 94760; 96374; 96376; 99285; C9803; G0378; J1815; J2405; J7030; J7121; U0003

== ENCOUNTER 2020-06-22 16:26 | Emergency (ER) | payer MEDICARE, OTHER ==
[~2020-06-22] VITALS: Ht 167.6 cm; Wt 122.5 kg
[~2020-06-22 16:26] MED LIST changes: +INSULIN LI100 UNIT/2 SUB-Q; +TOPROL XL100 MG PO
== END 2020-06-22 20:47 | disposition short-term general hospital (02) ==
LOC: ED 16:26
DX: K74.60 Unspecified cirrhosis of liver (principal); I85.10 Secondary esophageal varices without bleeding; Z20.822 Contact with and (suspected) exposure to COVID-19; E11.22 Type 2 diabetes mellitus with diabetic chronic kidney disease; J45.909 Unspecified asthma, uncomplicated; N18.6 End stage renal disease; Z88.5 Allergy status to narcotic agent; Z79.899 Other long term (current) drug therapy; Z79.4 Long term (current) use of insulin
CPT/HCPCS: 80053; 83690; 85025; 85610; 85730; 86850; 86900; 86901; 96365; 96375; 96376; 99285-25; C9113; C9803; J0696; J2354-JA; J2405; J7050; U0003

== ENCOUNTER 2020-08-01 20:04 | Inpatient (IN) | payer MEDICARE, OTHER ==
[~2020-08-01] VITALS: Ht 167.6 cm; Wt 134.3 kg
--- NOTE | 2020-08-02 02:00 | NUR ---
PATIENT ARRIVED TO THE FLOOR VIA STRETCHER. PATIENT WAS ABLE TO TRANSFER WITH MINIMAL ASSISTANCE WITH HER CANE FROM THE STRETCHER TO THE HOSPITAL BED. VITALS TAKEN AND RECORDED. ADMISSION COMPLETED BY LINOLEUM FLOOR INSTALLER. PATIENTS IV INFUSING PER ORDER. ASSESMENT COMPLETED PER ORDER. PATIENT PLACED ON TELE #7 PER ORDER. PATIENT IS ON 4L VIA NC AND THIS IS CHRONIC FOR HER. PATIENT DENIES ANY NAUSEA OR SOB. PATIENT RATES PAIN AT A 5/10. PATIENT DENIES THE NEED FOR PAIN MEDICATION AT THIS TIME. ALL QUESTIONS ANSWERED. NO NEEDS NOTED AT THIS TIME. CALL LIGHT IN REACH.
--- NOTE | 2020-08-02 03:30 | NUR ---
PATIENT ASSISTED TO THE RESTROOM A SBA W/CANE. PATIENT WAS UNABLE TO VOID. PATIENT IS BACK IN BED RESTING. PATIENT DENIES ANY NAUSEA. PATIENT RATES PAIN AT 3/10. PATIENT DENIES THE NEED FOR PAIN MEDICATION. NO FURTHER NEEDS NOTED. CALL LIGHT IN REACH.
--- NOTE | 2020-08-02 05:10 | NUR ---
PATIENTS MORNING VITALS TAKEN AND RECORDED. INTAKE AND OUPUT RECORDED. PATIENT RATES PAIN AT A 3/10. PATIENT DENIES THE NEED FOR PAIN MEDICATION AT THIS TIME. PATIENT DENIES ANY NAUSEA. PATIENT DENIES ANY NEEDS. CALL LIGHT IN REACH.
--- NOTE | 2020-08-02 05:13 | NUR ---
PATIENT HAS RESTED ON AND OFF SINCE ARRIVING TO THE FLOOR. PATIENT IS ON A CLEAR LIQUID DIET AND HAS BEEN EATING ICE CHIPS. PATIENT DENIED ANY NAUSEA. PATIENT HAS CHRONIC PAIN BUT HAS NOT REQUIRED ANY PRN PAIN MEDICATION. PATIENT IS A SBA W/CANE. PATIENT IS ON TELE #7, HR IN THE 90'S. PATIENT HAS IV FLUIDS INFUSING PER ORDER. PATIENT IS ON 4L VIA NC AND THIS IS CHRONIC FOR HIM.
--- NOTE | 2020-08-02 06:20 | NUR ---
PT AMBULATED TO SBA, URINE IS DARK/ STRAW IN COLOR, CLOUDY. PT C/O HAVING TO "REALLY PUSH TO GET ANY OUT." RN NOTIFIED. PT IS BACK IN BED, CALL LIGHT IN REACH. NO FURTHRE ASSISTANCE NEEDED AT THIS TIME.
--- NOTE | 2020-08-02 07:20 | NUR ---
BEDSIDE HANDOFF REPORT RECEIVED FROM DISTRIBUTION DESIGNER RN. PT SLEEPING, LEFT UNDISTURBED.
[2020-08-02] MEDS ORDERED: PROCHLORPERAZINE5 MG PO (07:50)
[2020-08-02] MEDS ORDERED: OMEPRAZOLE20 MG PO (07:51)
--- NOTE | 2020-08-02 08:05 | NUR ---
PT NAUSEATED, REQUESTING MEDICATION, NO MEDICATIONS ORDERED. DR. MCGHEE CONTACTED, TELEPHONE ORDER FOR COMPAZINE IV 5-10MG Q6 PRN FOR NAUSEA/VOMITING, RBOV.
--- NOTE | 2020-08-02 09:10 | NUR ---
PT WAS LAYING IN BED. PT STATED NAUSEA THIS MORNING. DR. MCGHEE CALLED AND AN ORDER WAS PLACED AND GIVEN. PT ALSO RECEIVED PAIN MEDICATION. SEE EMAR. PT GOT UP AND WENT TO THE BATHROOM. SHE USED A CANE AND A STANDBY ASSIST AND VOIDED 200. MORING ASSESSMENT WAS COMPLETED. PT STATED PAIN IN RIGHT ABDOMINAL AREA. NUMBNESS IN HER LOWER EXTREMITIES WHICH PT STATES IS HER BASELINE. PT IS ON 4L NC WHICH IS ALSO PT BASELINE. PT IS RECEIVING LR RUNNING AT 150ML/HR. PT IS IN THE ROOM WITH HER NOW. PT DOES NOT ENJOY HAVING HER IV IN HER RIGHT AC. SHE REQUESTED IF POSSIBLE TO GET IT MOVED TO ANOTHER LOCATION BECAUSE SHE CANNOT MOVE HER ARM WITHOUT THE MONITOR BEEPING. THIS REQUEST WILL BE ADDRESSED. NO OTHER REQUESTS AT THIS TIME.
--- NOTE | 2020-08-02 09:23 | NUR ---
PATIENT AWAKE IN BED, AT BEDSIDE. VITALS AND I&OS CHARTED. MD IN ROOM NOW. NO OTHER NEEDS AT THIS TIME
--- NOTE | 2020-08-02 11:00 | NUR ---
She uses a walker, wc, and 02. She has a scooter, but does not use as she needs a ramp. 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 Oxygen use is 2-4 L nc. Plans on discharge to home when cleared medically. Denies any needs to go home. Spouse is in the room.
--- NOTE | 2020-08-02 11:39 | NUR ---
SBA TO BR. MICHAEL CHANGED
--- NOTE | 2020-08-02 13:54 | NUR ---
I AM FAMILIAR WITH THIS PT-SEEMED PLEASED TO SEE ME. GAVE ENCOURAGEMENT, HERIBERTO FERRO IN TO CRE FOR PT. OFFERED PRAYER, WILL FOLLOW
--- NOTE | 2020-08-02 14:10 | NUR ---
PATIENT SITTING UP IN CHAIR, SCDS AND O2 IN PLACE. VITALS AND I&OS CHARTED. CALL LIGHT IN REACH, NO OTHER NEEDS AT THIS ITME
--- NOTE | 2020-08-02 14:39 | NUR ---
PT WAS UP TO THE CHAIR READING. AFTERNOON ASSESSMENT WAS COMPLETED. PT LUNG SOUNDS WERE CLEAR. SHE WAS DC'D OFF TELLY PER DR. MCGHEE. PT IS ON 4L NASAL CANNULA WHICH IS HER BASELINE. BLOOD SUGAR WAS CHECKED WITH PT OWN MACHINE. AND IT WAS 64. PT STATED SHE DID FELL A LITTLE LOW WHEN ASKED WE GAVE HER A JELLO AND RECHECKED AGAIN. HER BLOOD SUGAR WAS 63. WE THEN GAVE THE PATIENT AN APPLE JUICE. WE THEN CHECKED HER GLUCOSE WITH OUR MACHINE AND IT WAS 79. WE THEN CHECKED 15 MINUTES LATER AND IT WAS 92. THE PT STATED SHE FELT NORMAL AGAIN. SHE STILL EXPRESSED NUMBNESS IN HER TOES WHICH IS HER BASESLINE. THE CALL LIGHT IS WITHIN REACH AND THERE IS NO FURTHER NEEDS EXPRESSED BY THE PATIENT AT THIS TIME.
--- NOTE | 2020-08-02 16:06 | NUR ---
PT LAYING IN BED. AFTERNOON MEDICATION GIVEN. SEE EMAR. PT STATED 8/10 PAIN OXYCODONE WAS GIVEN TO THE PATIENT. SEE EMAR. HER BLOOD SUGAR WAS 74. PT STATED SHE WAS FEELING A LITTLE SHAKEY. SHE WAS GIVEN A JELLO AND WILL REASSESS BS AGAIN. NO OTHER NEEDS AT THIS TIME.
--- NOTE | 2020-08-02 17:23 | NUR ---
PT STATED HER COUGH GETTING WORSE. DR MCGHEE NOTIFIED. MEDICATION GIVEN SEE EMAR. BLOOD SUGAR WAS CHECKED AT 103 VIA PT MONITOR. PT GOT UP TO USE THE BATHROOM SHE WALKED STANDBY ASSIST. NO OTHER NEEDS AT THIS TIME.
--- NOTE | 2020-08-02 17:57 | NUR ---
PT WAS PLEASANT TODAY. THE IV ON HER RIGHT AC KEPT OCCLUDING SO WE SALINE LOCKED IT AND STARTED ANOTHER IV ON HER LEFT FOREARM. THERE IS LR RUNNING AT 150ML/HR. PT HAD HYPOGLYCEMIA WITH THE LOWEST POINT AT 63. SHE WAS GIVEN JELLO AND JUICE AND HER GLUCOSE READING WENT UP TO 103. SHE RECEIVED PAIN MEDICATION TWICE TODAY SEE EMAR. SHE ALSO COMPLAINED OF HER COUGH GETTING WORSE AND IT MAKING HER THROAT HURT SO WE WERE ABLE TO GET A PRN MED AFTER CALLING DR. MCGHEE. SEE EMAR. SHE IS A STANDBY ASSIST TO THE BATHROOM AND TAKES HER OXYGEN OFF WHILE GOING WHICH IS OKAY. SHE IS ON 4L NC.
--- NOTE | 2020-08-02 19:30 | NUR ---
SBA TO THE BATHROOM AND BACK TO BED. BEEF/VEGIE BROTH PROVIDED.
--- NOTE | 2020-08-02 19:36 | NUR ---
RECEIVED REPORT FROM DAY SHIFT RN. PATIENT IS RESTING IN BED WATCHING TV. PATIENT DENIES ANY NEEDS AT THIS TIME. CALL LIGHT IN REACH.
--- NOTE | 2020-08-02 21:05 | NUR ---
PATIENTS VITALS TAKEN AND RECORDED. INTAKE AND OUPUT RECORDED. PATIENTS EVENING MEDICATIONS GIVEN PER ORDER. PATIENT RATES PAIN AT AN 8/10 IN HER UPPER ABD. PATIENT GIVEN PRN PAIN MEDICATION PER ORDER. PATIENT REPORTS NAUSEA. PRN NAUSEA MEDICATION GIVEN PER ORDER. ASSESMENT COMPLETED. PATIENTS ABD IS SOFT AND TENDERNESS NOTED IN RUQ. PATIENT IS ON RA. PATIENT DENIES ANY FURTHER NEEDS. CALL LIGHT IN REACH.
--- NOTE | 2020-08-03 00:30 | NUR ---
PATIENT IS RESTING IN BED WITH EYES CLOSED, RR 19. CALL LIGHT IN REACH.
--- NOTE | 2020-08-03 01:52 | NUR ---
PATIENT ASSISTED TO THE RESTROOM A SBA W/CANE. PATIENT WAS ABLE TO VOID. PATIENT IS BACK IN BED RESTING. PATIENT RATES PAIN AT A 8/10. PRN PAIN MEDICATION GIVEN PER ORDER. PATIENT REPORTS NAUSEA. PATIENT FOUND TO HAVE LOW BS AT 58. PATIENT PROVIDED WITH SNACK. PATIENT REQUESTED NAUSEA MEDICATION. PATIENT GIVEN PRN NAUSEA MEDICATION PER ORDER. NO FURTHER NEEDS NOTED. CALL LIGHT IN REACH.
--- NOTE | 2020-08-03 03:02 | NUR ---
PATIENTS BS IS NOW WNL. PATIENT DENIES ANY FURTHER NEEDS. CALL LIGHT IN REACH.
--- NOTE | 2020-08-03 04:14 | NUR ---
PATIENT ASSISTED TO THE RESTROOM A SBA. PATIENT WAS ABLE TO VOID. PATIENT IS BACK IN BED RESTING. PATIENT DENIES ANY FURTHER NEEDS. CALL LIGHT IN REACH.
--- NOTE | 2020-08-03 06:00 | NUR ---
VITALS TAKEN AND RECORDED. INTAKE AND OUTPUT RECORDED. PATIENT IS IN BED RESTING. LAB IN ROOM. NO FURTHER NEEDS NOTED. CALL LIGHT IN REACH.
--- NOTE | 2020-08-03 06:32 | NUR ---
PATIENTS MORNING MEDICATIONS GIVEN PER ORDER. PATIENT RATES PAIN AT A 7/10. PATIENT GIVEN PRN PAIN MEDICATION PER ORDER. NO FURTHER NEEDS NOTED. CALL LIGHT IN REACH.
--- NOTE | 2020-08-03 07:30 | NUR ---
SHIFT REPORT FROM CARI LOUIS INCLUDED: pt had a low CBG last night, that resolved. pt had also had some pain and nausea treated with PRN meds, but had an otherwise uneventful evening. pt is on 2L NC, and this is her baseline. pt currently in bed, breathing even and unlabored, table and call light within reach.
--- NOTE | 2020-08-03 09:30 | NUR ---
MED PASS + ASSESSMENT + CBG pts CBG 122, no insulin given per sliding scale orders. pt assessment complete, VSS. pt o2sats 94% on 2L NC, as baseline. pt lungs clear, somehwat dim in the bases. pt reports minimal tolerable pain at this time and slight tolerable nausea. pt denies further needs at this time. pt up to fowlers in bed, having breakfast, table and call light in reach.
--- NOTE | 2020-08-03 11:30 | NUR ---
Pt resting. Feels better today. Plans on dc tomorrow to home with spouse. Denies needs to dc to home.
--- NOTE | 2020-08-03 11:59 | NUR ---
Patient has plesant affect and mood; welcomes student nurse for full head to toe assessment.
--- NOTE | 2020-08-03 13:17 | NUR ---
As I entered the room, Pt was seen with pleasant affect and mood. No apparent distress, grimacing, or signs of pain. Pt. had 100% sats @ 2L NC, Pain 6/10 non radiating, in URQ. Pulse 79, BP 150/65 MAP 82. Pulses were equal bilaterally in strength and rate. blood glucose 163@ 11:40. TEMP: 97.9. Watched staff pharmacist hospital administer 1 unit of insulin (humalog) after staff pharmacist hospital had another staff pharmacist hospital witness insulin draw. Pt tolerated well. Patient had clear lung sounds bilaterally, cardiovascular had no abnormalities, no murmurs, bruits. 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 Pt had faint pedal pulses bilaterally. No pitting edema present. Slight erythema on superior aspect of each feet. Pt had output of 400mL, urine is yellow.
--- NOTE | 2020-08-03 13:30 | NUR ---
MED PASS + ASSESSMENT pt given her next dose of lactulose at this time. pt able to take med without difficulty. pt assessment complete, pts lungs clear. pt denies nausea and reports minimal tolerable pain at this time. pt VSS and output quantity suffient. pt denies further needs at this time. pt in bed, talking with on phone, table and call light within reach.
--- NOTE | 2020-08-03 15:00 | NUR ---
ROUNDING pt in bed, visiting with at this time. pt reports minimal tolerable pain at this time, no nausea. pt denies further needs at this time. table and call light within reach.
--- NOTE | 2020-08-03 17:00 | NUR ---
CBG + MED PASS pts CBG within normal limits, no insulin given at this time. pt reports 7/10 headache and nausea at this time, PRN pain and nausea meds given, see MAR. pt denies further needs at this time, table and call light in reach.
--- NOTE | 2020-08-03 17:26 | NUR ---
Pt appeared pleasant and normal mentation and affect. When asked about any changes, pt. said sharp headache 6-7/10 scale lasting 1 hr. Pt. also stated new onset heartburn after drinking half of milkshake and stated they threw rest of it away. Pt described as non radiating, around xyphoid process. Pt had good capillary refill on feet and hands, and clear lung and cardiovascular sounds at this time. Pt. skin appeared normal, non diaphoretic, and regular for ethnicity. Pt given dinner and breakfast menu. Pt is in room.
--- NOTE | 2020-08-03 17:47 | NUR ---
Pt has pleasant mood and affect. Pt reported new heartburn, and states they had half their milkshake and threw the rest away. Pt stated sharp headache 6-7/10 last hour. Vitals: BP 167/67, Map 109, RR: 14 , 02: 99% @ 2L NC. HR: 75. Pt had equal and clear lung sounds bilaterally, and cardiovascular assessment revealed no abnormalities, murmurs, bruits, gallops. Pt. has equal capillary refill <3 seconds in fingers and toes. 1,000 mL LR infusion renewed for pt. Pt alert and oriented to person, place, date and time. Pt. Pupils equal, round, reactive to light and accomodate completely. Pain in ULQ still remains 6/10. Pt voided 350 urine, yellow with no abnormal smell. Pt given dinner and breakfast menu.
--- NOTE | 2020-08-03 19:36 | NUR ---
RECEIVED REPORT FROM DAY SHIFT RN. PATIENT IS RESTING IN BED PLAYING ON HER PHONE. PATIENT DENIES ANY NEEDS AT THIS TIME. CALL LIGHT IN REACH.
--- NOTE | 2020-08-03 20:14 | NUR ---
PATIENT ASSESMENT COMPLTETED. PATIENT IS RESTING IN RECLINER. VITALS TAKEN AND RECORDED. INTAKE AND OUTPUT RECORDED. IV DRESSING CHANGED IT WAS COMING OFF. IV INFUSING PER ORDER. PATIENTS IV ON LEFT ARM NO LONGER PATENT. IV REMOVED. PATIENT DENIES ANY NAUSEA. PATIENTS EVENING MEDICATIONS GIVEN PER ORDER. PATIENT GIVEN PRN MEDICATION FOR REPORTS OF A COUGH. PATIENT WOULD LIKE PRN PAIN MEDICATION WHEN NEXT AVAILABLE. EDUCATED PATIENT ON NEXT AVAILABLE TIME. PATIENT VERBALIZES UNDERSTANDING. PATIENT REMAINS ON 2L VIA [place]. PATIENT DENIES ANY FURTHER NEEDS. CALL LIGHT IN REACH.
--- NOTE | 2020-08-03 21:06 | NUR ---
PATIENT GIVEN PRN PAIN MEDICATION FOR GENERALIZED PAIN. PATIENT IS RESTING IN BED NOW. SCDS IN USE. NO FURTHER NEEDS NOTED. CALL LIGHT IN REACH.
--- NOTE | 2020-08-04 02:43 | NUR ---
CALL LIGHT ANSWERED, pt ASSISTED WITH PUTTING ON SCD'S, HAT EMPTIED. 300MLS OUTPUT NOTED. NO FURTHER NEEDS, PRIMARY RN CARI AWARE. CALL LIGHT IN REACH.
--- NOTE | 2020-08-04 02:52 | NUR ---
PT'S IV WAS BEEPING, IT IS NOW INFUSING FINE. PT IS AWAKE IN BED AND DENIES NEEDS. CALL LIGHT IS CLOSE.
--- NOTE | 2020-08-04 03:11 | NUR ---
PATIENT REPORTS PAIN OF 7/10 GENERALIZED. PRN PAIN MEDICATION GIVEN PER ORDER. PATIENT REPORTS NAUSEA. PRN NAUSEA MEDICATION GIVEN PER ORDER. PATIENT REMAINS ON 2L VIA NC. PATIENT PROVIDED WITH ICE CHIPS NO FURTHER NEEDS NOTED. CALL LIGHT IN REACH.
--- NOTE | 2020-08-04 05:43 | NUR ---
PATIENT IS JUST COMING OUT OF THE RESTROOM. PATIENTS VITALS TAKEN AND RECORDED. INTAKE AND OUTPUT RECORDED. PATIENTS MORNING MEDICATIONS GIVEN PER ORDER. PATIENT KAREEN ANY FURTHER NEEDS. CALL LIGHT IN REACH.
--- NOTE | 2020-08-04 07:41 | NUR ---
SHIFT REPORT FROM CARI LOUIS INCLUDED: pt had an uneventful evening. needed tesslon pearls once, and cough was relieved. pt was able to rest well this night. pt currently resting in bed, eyes closed, breathing even and unlabored, table and call light within reach. pt anticipating DC today.
--- NOTE | 2020-08-04 08:20 | NUR ---
Pt was awake and alert this morning. Pt self ambulated to bathroom and voided 350 for a total of 550 mL between 1460-5316. Pt reported a pain scale of 6/10, in the ULQ, same as yesterday. Pt had no apparent distress, skin signs WNL, Temp: 97.6t, RR: 16, P: 89, BP: 138/76, MAP: 92, 02: 98% @ 2L NC. Pt capillary refill WNL, patient reported continued peripheral neuropathy in distal extremities, pt mental status pleasant and cooperative, respiratory and cardiovascular system revealed no abnormalities, abdominal assessment revealed continued LUQ pain 6/10, non radiating. No pressure ulcers development or worry at this time. Pt wondering about possible discharge today. PEARLA exam WNL. BG level of 101 pre-prandial/ empty stomache. IV Fluids Approximately 700/1000 mL remain.
--- NOTE | 2020-08-04 09:10 | NUR ---
ASSESSMENT + MED PASS pt assessment complete, VSS. pt reports 5/10 tolerable pain and slight baseline nausea at this time. pt is anticipating DC today. pts CBG was 101, no insulin given per sliding scale orders. pt sitting up in bed, watching tv, visiting with at this time. table and call light within reach.
--- NOTE | 2020-08-04 10:30 | NUR ---
ROUNDING pt in bed, visiting with and watching tv. pt awaiting DC at this time. pt reports minimal tolerable pain and no nausea at this time. table and call light within reach.
--- NOTE | 2020-08-04 11:52 | NUR ---
HELPED PATIENT ORDER LUNCH ON A LOW-FAT DIET. GAVE HER OUR LOW-FAT MENU SINCE SHE TRIED ORDERING OFF THE REGULAR MENU. SHE SAID SHE HAS NOT HAD TO FOLLOW A LOW-FAT DIET BEFORE. PROVIDED HER HANDOUT FROM THE NUTRITION CARE MANUAL ON FAT-RESTRICTED NUTRITION THERAPY THAT INCLUDES FOODS RECOMMENDED AND FOODS NOT RECOMMENDED. SHE THINKS THIS WILL BE HELPFUL. MY NAME AND OFFICE # ARE ON THAT HANDOUT IN CASE OTHER QUESTIONS COME UP LATER.
--- NOTE | 2020-08-04 12:00 | NUR ---
CBG + LUNCH pts CBG was WNL, no insulin given per sliding scale orders. Lunch brought. pt in bed, visiting with and watching tv. pt awaiting DC at this time. pt reports minimal tolerable pain and no nausea at this time. table and call light within reach.
--- NOTE | 2020-08-04 12:07 | NUR ---
PT ALERT, ORIENTED AND VISITING WITH HER . PT HOPES TO DC TODAY-WAITING ON DR MCGHEE. GAVE ENCOURAGEMENT AND BLESSING, WILL FOLLOW NEEDED
--- NOTE | 2020-08-04 13:10 | NUR ---
SPOKE WITH FEDERICO, PLANS ON DC TO HOME TODAY, DENIES NEEDS.
[2020-08-04] MEDS ORDERED: XIFAXAN550 MG PO (13:28)
[2020-08-04] MEDS ORDERED: OXYCODONE HCL5 MG PO (13:29)
[2020-08-04] MEDS ORDERED: LACTULOSE20 GM/30 M PO (13:33)
== END 2020-08-04 14:10 | disposition home or self-care (01) | DRG 439 ==
LOC: ED 20:04 → MS 20:06
PROVIDERS: ADMIT Internal Medicine; ATTEND Internal Medicine
DX: K85.10 Biliary acute pancreatitis without necrosis or infection (principal); N17.9 Acute kidney failure, unspecified; J96.11 Chronic respiratory failure with hypoxia; Z20.822 Contact with and (suspected) exposure to COVID-19; K76.0 Fatty (change of) liver, not elsewhere classified; K74.69 Other cirrhosis of liver; K72.10 Chronic hepatic failure without coma; I10 Essential (primary) hypertension; K21.9 Gastro-esophageal reflux disease without esophagitis; E11.65 Type 2 diabetes mellitus with hyperglycemia; M79.7 Fibromyalgia; Z88.5 Allergy status to narcotic agent; Z90.49 Acquired absence of other specified parts of digestive tract; Z79.899 Other long term (current) drug therapy; Z79.4 Long term (current) use of insulin; Z79.2 Long term (current) use of antibiotics
CPT/HCPCS: 36415; 74176; 80048; 80053; 81001; 82570; 83036; 83690; 84300; 84540; 85025; 94760; 96374; 99285-25; J0780; J1815; J2405; J7121; U0003

== ENCOUNTER 2020-08-05 09:06 | Emergency (ER) | payer MEDICARE, OTHER ==
[~2020-08-05] VITALS: Ht 167.6 cm; Wt 134.3 kg
[~2020-08-05 09:06] MED LIST changes: +PROCHLORPERAZINE5 MG PO
--- NOTE | 2020-08-05 15:20 | EKG ---
[facility] [address] [facility] [place], [place] [address] Signed Normal sinus rhythm Normal ECG When compared with ECG of 04-APR-2020 08:24, No significant change was found Confirmed by CASSIDY MCGHEE MD ([id number]) on 08/05/2020 3:20:34 PM Electronically Signed By: CASSIDY MCGHEE MD 08/05/20 1520 PATIENT NAME: FEDERICO SALMON Electrocardiogram DATE OF : 63 PHYSICIAN: CASSIDY MCGEHE MD REPORT #: [id number] REPORT IS CONFIDENTIAL AND NOT TO BE RELEASED WITHOUT AUTHORIZATION
== END 2020-08-05 11:48 | disposition home or self-care (01) ==
LOC: ED 09:06
DX: K72.90 Hepatic failure, unspecified without coma (principal); D64.9 Anemia, unspecified; Z20.822 Contact with and (suspected) exposure to COVID-19; E11.9 Type 2 diabetes mellitus without complications; J45.909 Unspecified asthma, uncomplicated; M19.90 Unspecified osteoarthritis, unspecified site; Z88.5 Allergy status to narcotic agent; Z79.899 Other long term (current) drug therapy; Z79.4 Long term (current) use of insulin
CPT/HCPCS: 71045; 80053; 81001; 82140; 83605; 83690; 84484; 85025; 85610; 93005; 93010; 99285-25; C9803; U0003

== ENCOUNTER 2020-08-05 20:01 | Emergency (ER) | payer MEDICARE, OTHER ==
[~2020-08-05] VITALS: Ht 167.6 cm; Wt 134.3 kg
== END 2020-08-05 21:03 | disposition home or self-care (01) ==
LOC: ED 20:01
DX: R10.33 Periumbilical pain (principal); E11.9 Type 2 diabetes mellitus without complications; J45.909 Unspecified asthma, uncomplicated; M19.90 Unspecified osteoarthritis, unspecified site; K72.90 Hepatic failure, unspecified without coma; Z88.5 Allergy status to narcotic agent; Z79.899 Other long term (current) drug therapy; Z79.4 Long term (current) use of insulin
CPT/HCPCS: 99283

== ENCOUNTER 2020-10-07 09:01 | Emergency (ER) | payer MEDICARE, OTHER ==
[~2020-10-07] VITALS: Ht 167.6 cm; Wt 134.3 kg
--- NOTE | 2020-10-07 21:06 | EKG ---
[facility] [address] [facility] [place], [place] [address] Signed Sinus tachycardia Otherwise normal ECG Confirmed by DANIEL HILL MD ([id number]) on 10/07/2020 9:05:54 PM Electronically Signed By: DANIEL HILL MD 10/07/202105 PATIENT NAME: SALMONFEDERICOKATEY WILSON Electrocardiogram DATE OF : 63 PHYSICIAN: DANIEL HILL MD REPORT #: [id number] REPORT IS CONFIDENTIAL AND NOT TO BE RELEASED WITHOUT AUTHORIZATION
== END 2020-10-07 14:45 | disposition short-term general hospital (02) ==
LOC: ED 09:01
DX: I85.01 Esophageal varices with bleeding (principal); I95.9 Hypotension, unspecified; D64.9 Anemia, unspecified; E11.9 Type 2 diabetes mellitus without complications; J45.909 Unspecified asthma, uncomplicated; M19.90 Unspecified osteoarthritis, unspecified site; K72.90 Hepatic failure, unspecified without coma; Z88.8 Allergy status to other drugs, medicaments and biological substances; Z88.5 Allergy status to narcotic agent; Z79.899 Other long term (current) drug therapy; Z79.4 Long term (current) use of insulin; Z20.822 Contact with and (suspected) exposure to COVID-19
CPT/HCPCS: 71045; 80053; 80500; 82140; 83690; 83735; 84484; 85025; 85610; 85730; 93005; 93010; 96365; 96375; 99285-25; C9113; C9803; J0696; J0780; J2354-JA; J2765; J7030; J7050; J7060; U0003

== ENCOUNTER 2020-10-13 07:55 | Emergency (ER) | payer MEDICARE, OTHER ==
[~2020-10-13] VITALS: Ht 167.6 cm; Wt 145.2 kg
--- NOTE | 2020-10-13 09:10 | EKG ---
[facility] [address] [facility] [place] [address] Signed Sinus tachycardia Abnormal QRS-T angle, consider primary T wave abnormality Abnormal ECG When compared with ECG of 07-OCT-2020 09:04, Nonspecific T wave abnormality now evident in Lateral leads Confirmed by CASSIDY MCGHEE MD ([id number]) on 10/13/2020 9:10:24 AM Electronically Signed By: CASSIDY MCGHEE MD 10/13/20 0910 PATIENT NAME: FEDERICO SALMON Electrocardiogram DATE OF : 63 PHYSICIAN: CASSIDY MCGHEE MD REPORT #: [id number] REPORT IS CONFIDENTIAL AND NOT TO BE RELEASED WITHOUT AUTHORIZATION
== END 2020-10-13 09:50 | disposition short-term general hospital (02) ==
LOC: ED 07:55
DX: K92.0 Hematemesis (principal); E11.9 Type 2 diabetes mellitus without complications; J45.909 Unspecified asthma, uncomplicated; Z88.5 Allergy status to narcotic agent; Z88.8 Allergy status to other drugs, medicaments and biological substances; Z79.899 Other long term (current) drug therapy; Z79.4 Long term (current) use of insulin; K72.90 Hepatic failure, unspecified without coma
CPT/HCPCS: 36430; 80053; 85025; 85610; 85730; 93005; 93010; 99291; C9113; J2550; J7030; P9040